=== PATIENT | male | born 1945 | race Caucasian/White ===

== ENCOUNTER 2017-03-21 18:28 | Inpatient (IN) | payer OTHER, MEDICARE ==
[~2017-03-21] VITALS: Ht 188 cm; Wt 104.0 kg
[~2017-03-21 18:28] MED LIST: ALL300 PO; ASPI325T4 PO; CYAN10005 PO; FERR1TAB23 PO; HYDR-4380 PO; HYDR5SYP11 PO; INSDGI SC; ISOS40TA PO; MONT1TAB3 PO; NTRGSL/4 UT; NVLGI SC; PRIM250T30 PO; ROSU40TA PO; WARF2TAB8 PO; ZNTT/150 PO; ZTHM250 PO
[2017-03-21] MEDS ORDERED: LORAZEPAM 2 MG/ML 1 ML VIAL IV STA (18:38)
[2017-03-21] MEDS ORDERED: ONDANSETRON INJ 2 MG/ML 2 ML VIAL IV STA (18:38)
[2017-03-21 18:46] LABS: BASO % 0.2 %; BASO ABS # 0.02 K/uL (0-0.2); COMPLETE YES; EOS % 0.8 %; HEMATOCRIT 43.5 % (42-52); IG% 0.1 %; LYMPH % 10.7 %; LYMPH ABS # 0.95 K/uL (1.2-3.4); MEAN CELL VOLUME 88.1 fL (80-100); MEAN CORPUSCULAR HEMOGLOBIN 27.3 pg (25-34); MONO % 7.5 %; NEUT % 80.7 %; PLATELET COUNT 226 K/uL (130-400); RED BLOOD COUNT 4.94 M/uL (4.7-6.1); WHITE BLOOD COUNT 8.92 K/uL (4.8-10.8)
--- NOTE | 2017-03-21 18:47 | EMERGENCY ROOM VISIT NOTE ---
History Report prepared by Maria Fernanda: Pascual Case Under the Supervision of: Dr. Chester Marcelo M.D. First contact with patient: 18:33 Stated Complaint: VOMIT/ POSS. CARDIAC ISSUE History of Present Illness The patient is a 71 year old male who presents to the Emergency Room with complaints of constant diaphoresis beginning 3.5 hours ago. The patient states that he started shaking and could not get warm. He notes that he also started vomiting. He reports that he has had symptoms like this before when he was in heart failure. The patient notes that he has a history of COPD and CHF. He states that he has been taking his medication, and he has a non-productive cough. The patient denies chest pain, new edema to his legs, fevers, and abdominal pain. Nursing staff notes the patient was given 4 Zofran prior to arrival in the ambulance. Source of History: patient Onset: 3.5 hours ago Position: other (global) Quality: other (diaphoresis) Timing: constant Associated Symptoms: + cough, + vomiting, No fevers, No chest pain, No abdominal pain Note: Denies: new edema to his legs Review of Systems See HPI for pertinent positives & negatives. A total of 10 systems reviewed and were otherwise negative. Past Medical & Surgical Medical Problems: (1) VIOLETTA inhibitor intolerance (2) Asthma (3) Benign hypertension (4) Cerebrovascular disease (5) CHF (congestive heart failure) (6) Chronic ischemic heart disease (7) Chronic kidney disease stage 3 (8) Chronic obstructive lung disease (9) Coronary artery disease (10) Deep venous thrombosis of lower extremity (11) Diabetes mellitus type 2 (12) Diabetic peripheral neuropathy associated with type 2 diabetes mellitus (13) Foot deformity (14) History of - deep vein thrombosis (15) History of - pulmonary embolus (16) History of diabetic ulcer of foot (17) Hyperlipidemia (18) Loss of sensation (19) Pericardial effusion (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 (21) Systolic heart failure Surgical Problems: (1) H/O toe surgery (2) History of tonsillectomy (3) S/P laparoscopic cholecystectomy Family History Diabetes mellitus Heart disease Social History Smoking Status: Former Smoker Alcohol Use: occasionally Drug Use: none Marital Status: Housing Status: lives with significant other Occupation Status: retired Current/Historical Medications Scheduled Allopurinol (Allopurinol), 300 MG PO DAILY Aspirin (Aspirin), 325 MG PO DAILY Insulin Aspart (Novolog), 0 SC TIDM Insulin Glargine (Lantus), 15 UNITS SC BID Isosorbide Dinitrate (Isordil), 40 MG PO TID Montelukast Sodium (Singulair), 10 MG PO QPM Primidone (Mysoline), 250 MG PO HS Ranitidine (Zantac), 150 MG PO BID Rosuvastatin Calcium (Crestor), 40 MG PO HS Warfarin Sod (Jantoven), 4 MG PO DIRECTED Warfarin Sod (Jantoven), 6 MG PO DIRECTED Scheduled PRN Hydrocodone-Acetaminophen (Hydrocodone/Acetaminophen), 5-325 MG PO Q6H PRN for Pain Nitroglycerin (Nitrostat), 0.4 MG UT UD PRN for Chest Pain Allergies Coded Allergies: Onion (Verified Allergy, Intermediate, RASH, 05/07/16) Levofloxacin (Verified Allergy, Mild, other, 05/07/16) ' Albuterol (Verified Adverse Reaction, Mild, 0, 05/07/16) cough syncope Ipratropium (Verified Adverse Reaction, Mild, 0, 05/07/16) cough syncope Physical Exam Vital Signs Date Time Temp Pulse Resp B/P (MAP) Pulse Ox O2 Delivery O2 Flow Rate FiO2 03/21/17 23:10 63 20 105/53 92 03/21/17 22:45 63 03/21/17 22:39 62 20 105/53 92 Room Air 03/21/17 20:17 78 20 139/70 95 Room Air 03/21/17 19:06 71 03/21/17 18:47 36.6 71 24 152/88 90 Room Air Physical Exam GENERAL: Patient is acutely ill appearing, in severe distress, and actively vomiting. HEENT: No acute trauma, normocephalic atraumatic, mucous membranes moist, no nasal congestion, no scleral icterus. NECK: No stridor, no adenopathy, no meningismus, trachea is midline. LUNGS: Significantly dyspneic with crackles and wet lung sounds - worse on the right. Wet cough. HEART: Regular rate and rhythm. No murmurs, rubs, gallops appreciated. ABDOMEN: Soft, nontender, bowel sounds positive, no masses appreciated, no peritonitis. BACK: No midline tenderness, no CVA tenderness EXTREMITIES: Normal motion all extremities, no cyanosis, edema bilaterally to the legs, worse on right than left. NEUROLOGIC: Alert and oriented, no acute motor or sensory deficits, no focal weakness, cranial nerves grossly intact. SKIN: Diaphoretic, pale, no rash. Medical Decision & Procedures ER Provider Diagnostic Interpretation: X ray results are stated below per my interpretation and the radiologist's interpretation. CHEST ONE VIEW PORTABLE CLINICAL HISTORY: Chest Pain dyspnea COMPARISON STUDY: 05/10/2016 FINDINGS: Chronic bibasilar interstitial change. Mild stable cardiomegaly. Pulmonary vasculature is somewhat prominent. Upper lungs are clear. IMPRESSION: Chronic bibasilar interstitial change. Mild pulmonary vascular congestion. The above report was generated using voice recognition software. It may contain grammatical, syntax or spelling errors. Electronically signed by: Wilder Shelton M.D. 03/21/2017 7:23 PM Dictated Date/Time: 03/21/2017 7:22 PM Laboratory Results 03/21/17 18:13 Red Blood Count 4.94, Mean Corpuscular Volume 88.1, Mean Corpuscular Hemoglobin 27.3, Mean Corpuscular Hemoglobin Concent 31.0, Mean Platelet Volume 10.0, Neutrophils (%) (Auto) 80.7, Lymphocytes (%) (Auto) 10.7, Monocytes (%) (Auto) 7.5, Eosinophils (%) (Auto) 0.8, Basophils (%) (Auto) 0.2, Neutrophils # (Auto) 7.20, Lymphocytes # (Auto) 0.95, Monocytes # (Auto) 0.67, Eosinophils # (Auto) 0.07, Basophils # (Auto) 0.02 03/21/17 18:13 Test 03/21/17 18:13 03/21/17 18:39 03/21/17 19:07 03/21/17 19:11 White Blood Count 8.92 K/uL (4.8-10.8) Red Blood Count 4.94 M/uL (4.7-6.1) Hemoglobin 13.5 g/dL (14.0-18.0) Hematocrit 43.5 % (42-52) Mean Corpuscular Volume 88.1 fL (80-100) Mean Corpuscular Hemoglobin 27.3 pg (25-34) Mean Corpuscular Hemoglobin Concent 31.0 g/dl (32-36) Platelet Count 226 K/uL (130-400) Mean Platelet Volume 10.0 fL (7.4-10.4) Neutrophils (%) (Auto) 80.7 % Lymphocytes (%) (Auto) 10.7 % Monocytes (%) (Auto) 7.5 % Eosinophils (%) (Auto) 0.8 % Basophils (%) (Auto) 0.2 % Neutrophils # (Auto) 7.20 K/uL (1.4-6.5) Lymphocytes # (Auto) 0.95 K/uL (1.2-3.4) Monocytes # (Auto) 0.67 K/uL (0.11-0.59) Eosinophils # (Auto) 0.07 K/uL (0-0.5) Basophils # (Auto) 0.02 K/uL (0-0.2) RDW Standard Deviation 47.7 fL (36.4-46.3) RDW Coefficient of Variation 14.8 % (11.5-14.5) Immature Granulocyte % (Auto) 0.1 % Immature Granulocyte # (Auto) 0.01 K/uL (0.00-0.02) Prothrombin Time 24.8 SECONDS (9.0-12.0) Prothromb Time International Ratio 2.2 (0.9-1.1) Activated Partial Thromboplast Time 38.7 SECONDS (21.0-31.0) Partial Thromboplastin Ratio 1.5 Estimated GFR () 64.5 Estimated GFR (Non- 55.7 BUN/Creatinine Ratio 11.6 (10-20) Calcium Level 9.4 mg/dl (8.5-10.1) Total Bilirubin 0.4 mg/dl (0.2-1) Direct Bilirubin 0.1 mg/dl (0-0.2) Aspartate Amino Transf (AST/SGOT) 30 U/L (15-37) Alanine Aminotransferase (ALT/SGPT) 19 U/L (12-78) Alkaline Phosphatase 109 U/L (45-117) Total Creatine Kinase 51 U/L (39-308) Creatine Kinase MB 0.5 ng/ml (0.5-3.6) Creatine Kinase MB Ratio 1.0 (0-3.0) Troponin I < 0.015 ng/ml (0-0.045) Pro-B-Type Natriuretic Peptide 896 pg/ml (0-900) Total Protein 8.5 gm/dl (6.4-8.2) Albumin 3.3 gm/dl (3.4-5.0) Lipase 67 U/L (73-393) Bedside Lactic Acid Venous 1.86 mmol/L (0.90-1.70) Bedside Troponin I < 0.030 ng/ml (0-0.045) Bedside Hemoglobin 12.9 g/dl (14.0-18.0) Bedside Hematocrit 38 % (42-52) Bedside Sodium 136 mEq/L (135-144) Bedside Potassium 3.5 mEq/L (3.3-5.0) Bedside Chloride 96 mEq/L (101-112) Bedside Total CO2 26 mEq/l (24-31) Anion Gap 19.0 mmol/L (16-25) Bedside Blood Urea Nitrogen 16 mg/dl (7-18) Bedside Creatinine 1.1 mg/dl (0.6-1.3) Bedside Glucose (other) 151 mg/dl (70-99) Bedside Ionized Calcium (Nazario) 1.16 mmol/l (1.12-1.32) Laboratory results as reviewed by me. Medications Administered Medications (Trade) Dose Ordered Sig/Kendrick Route Start Time Stop Time Status Last Admin Dose Admin Lorazepam (Ativan Inj) 0.5 mg NOW STAT IV 03/21/17 18:38 03/21/17 18:39 DC 03/21/17 18:55 0.5 MG Ondansetron HCl (Zofran Inj) 4 mg NOW STAT IV 03/21/17 18:38 03/21/17 18:39 DC 03/21/17 18:55 4 MG Piperacillin Sod/ Tazobactam Sod (Zosyn Iv) 4.5 gm NOW STAT IV 03/21/17 20:11 03/21/17 20:13 DC 03/21/17 20:17 4.5 GM ECG Indication: diaphoresis, vomiting Rate (beats per minute): 74 Rhythm: normal sinus Findings: no acute ischemic change, no ectopy ED Course 1833: The patient was evaluated in room B03B. A complete history and physical exam was performed. 1837: Ordered Zofran Inj 4mg IV, Ativan Inj 0.5mg IV 5: I reevaluated the patient. He feels better and is no longer diaphoretic and vomiting. He is refusing a breathing treatment. 2007: I reevaluated the patient, and he still has diffuse, poor, lung sounds. He is mildly hypoxic and feels better. 2010: Ordered Zosyn Iv 4.5gm IV 2141: [facility] The patient will be evaluated for further treatment. Medical Decision Differential: Infectious, Reactive Airway Disease, Pneumonia, Pneumothorax, COPD , CHF, ACS, Pulmonary Embolism, MSK, GI, Dissection, amongst other etiologies entertained. 71 yr old male arrives severely ill appearing vomiting profusely, diaphoretic and clearly uncomfortable. No clear evidence ACS. Given Zofran, Ativan with vast improvement in vomiting. Abdominal exam benign. Exam with clear RLL congestion and becoming a bit hypoxic. Suspect this is aspiration event though he did have severe pneumonia with respiratory failure last year with RLL infiltrate and exam similar to that at that point. Patient labs/vitals note very poor, but he looks very unwell and I do not think he is capable of surviving discharge. Medication Reconcilliation Current Medication List: was personally reviewed by me Blood Pressure Screening Patient's blood pressure: Normal blood pressure Blood pressure disposition: Did not require urgent referral Consults Time Called: 2136 [facility] Returned Call: [phone] [facility] The patient will be evaluated for further treatment. Impression Primary Impression: Aspiration pneumonia Additional Impression: Hypoxia Scribe Attestation The scribe's documentation has been prepared under my direction and personally reviewed by me in its entirety. I confirm that the note above accurately reflects all work, treatment, procedures, and medical decision making performed by me. Departure Information Dispostion Being Evaluated By Hospitalist Referrals Ron Mortensen D.O. (PCP) Problem Qualifiers
[2017-03-21 19:00] LABS: ALT/SGPT 19 U/L (12-78); BLOOD UREA NITROGEN 15 mg/dl (7-18); BUN/CREATININE RATIO 11.6 (10-20); CALCIUM 9.4 mg/dl (8.5-10.1); CARBON DIOXIDE 27 mmol/L (21-32); CHLORIDE 98 mmol/L (98-107); GLUCOSE 121 mg/dl (70-99); POTASSIUM 3.6 mmol/L (3.5-5.1); SODIUM 134 mmol/L (136-145)
[2017-03-21 19:06] LABS: ALKALINE PHOSPHATASE 109 U/L (45-117); AST/SGOT 30 U/L (15-37)
--- NOTE | 2017-03-21 19:24 | DIAGNOSTIC IMAGING REPORT ---
CHEST ONE VIEW PORTABLE CLINICAL HISTORY: Chest Pain dyspnea COMPARISON STUDY: 05/10/2016 FINDINGS: Chronic bibasilar interstitial change. Mild stable cardiomegaly. Pulmonary vasculature is somewhat prominent. Upper lungs are clear. IMPRESSION: Chronic bibasilar interstitial change. Mild pulmonary vascular congestion. The above report was generated using voice recognition software. It may contain grammatical, syntax or spelling errors. Electronically signed by: Wilder Shelton M.D. 03/21/2017 7:23 PM Dictated Date/Time: 03/21/2017 7:22 PM
[2017-03-21] MEDS ORDERED: WARF2TAB8 PO (19:25)
[2017-03-21 19:28] LABS: ISTAT CREATININE 1.1 mg/dl (0.6-1.3); ISTAT HEMOGLOBIN 12.9 g/dl (14.0-18.0); ISTAT IONIZED CALCIUM 1.16 mmol/l (1.12-1.32)
[2017-03-21] MEDS ORDERED: PIPERACILLIN/TAZOBACTAM 4.5 GM/100ML D5W IV STA (20:11)
[2017-03-21 20:36] LABS: INR 2.2 (0.9-1.1); PARTIAL THROMBOPLASTIN RATIO 1.5; PROTHROMBIN TIME (PATIENT) 24.8 SECONDS (9.0-12.0)
[2017-03-21] MEDS ORDERED: METHYLPREDNISOLONE IV 60 MG in SYRINGE 0 ML IV STA (22:43)
[2017-03-21] MEDS ORDERED: GLUCAGON FOR INJ 1 MG VIAL SQ PRN (22:45)
[2017-03-21] MEDS ORDERED: HYDROCODONE/ACETAMINOPHEN 7.5/325MG TAB PO PRN (22:45)
[2017-03-21] MEDS ORDERED: DEXTROSE 50% 50 ML SYR IV PRN (22:45)
[2017-03-21] MEDS ORDERED: SODIUM CHLORIDE 0.9% 500ML 500 ML IV SCH (22:45)
[2017-03-21] MEDS ORDERED: GLUCOSE 40% GEL 15 GM TUBE PO PRN (22:45)
[2017-03-21] MEDS ORDERED: GLUCOSE 10 TABS/TUBE PO PRN (22:45)
[2017-03-21] MEDS ORDERED: ACETAMINOPHEN 325 MG TAB PO PRN (22:45)
[2017-03-21] MEDS ORDERED: PIPERACILL/TAZOBAC CONSULT ACTIVE PRN (22:49)
[2017-03-21] MEDS ORDERED: PHARMACY GLYCEMIC MGMT CONSULT PRN (22:55)
--- NOTE | 2017-03-21 23:24 | History and Physical ---
History & Physical Date & Time of Service: Mar 21, 2017 at 23:23 Chief Complaint: Vomit/ Poss. Cardiac Issue Primary Care Physician: Ron Mortensen D.O. History of Present Illness Source: patient, clinic records, hospital records 71 year old male with history of COPD/Asthma/Bronchiectasis, CAD, CHF, PE on coumadin, DM 2, HTN, CKD 3 presenting with vomiting. Follows with Dr. Mortensen for PCP and Pulmonary Clinic in [facility]. Patient was apparently doing fine until late this afternoon when he suddenly experienced "shivering". At around dinner time, patient then developed nausea followed by vomiting at least 2-3 times, previously ingested food. He was then brought to the ER. At the ER, patient was noted to have persistent coughing . CXR did not show pneumonia. Patient did received Zosyn, Zofran and Ativan. On exam, patient was 93% on room air, sitting up in bed, appears tired but not in distress. States he has been having profuse dry cough at the ER since arrival but denies dyspnea. Chills and nausea/vomiting has improved. Denies headache, dizziness, sore throat, chest pain, abdominal pain, changes with urination/bowel movement. No other symptoms. Past Medical/Surgical History Medical Problems: (1) VIOLETTA inhibitor intolerance Status: Chronic (2) Asthma Status: Chronic (3) Benign hypertension Status: Chronic (4) Cerebrovascular disease Permanent Comment: history of right caudate stroke Status: Chronic (5) CHF (congestive heart failure) Status: Chronic (6) Chronic ischemic heart disease Status: Chronic (7) Chronic kidney disease stage 3 Status: Chronic (8) Chronic obstructive lung disease Status: Chronic (9) Coronary artery disease Permanent Comment: s/p inferior AR Status: Chronic (10) Deep venous thrombosis of lower extremity Status: Resolved (11) Diabetes mellitus type 2 Status: Chronic (12) History of - deep vein thrombosis Status: Resolved (13) History of - pulmonary embolus Status: Resolved (14) Hyperlipidemia Status: Chronic (15) Pericardial effusion Status: Resolved (16) Systolic heart failure Permanent Comment: LVEF 45-50% by echo 07/07/10 Status: Chronic Surgical Problems: (1) H/O toe surgery Permanent Comment: amputation left 3rd and 4th toe 03/2012 Status: Resolved (2) History of tonsillectomy Status: Resolved (3) S/P laparoscopic cholecystectomy Permanent Comment: Dr. Tang 12/2014 Status: Resolved Family History Diabetes mellitus Heart disease Social History Smoking Status: Former Smoker Drug Use: none Marital Status: Occupational Status: retired Immunizations History of Influenza Vaccine: Yes Influenza Vaccine Date: May 08, 2012 History of Tetanus Vaccine?: unknown Tetanus Immunization Date: December 01, 2008 History of Pneumococcal: Yes Pneumococcal Date: Oct 03, 2003 History of Hepatitis B Vaccine: Unknown Multi-Drug Resistant Organisms History of MDRO: Yes Type of MDRO: MRSA Allergies Coded Allergies: Onion (Verified Allergy, Intermediate, RASH, 05/07/16) Levofloxacin (Verified Allergy, Mild, other, 05/07/16) ' Albuterol (Verified Adverse Reaction, Mild, 0, 05/07/16) cough syncope Ipratropium (Verified Adverse Reaction, Mild, 0, 05/07/16) cough syncope Home Medications Scheduled Allopurinol (Allopurinol), 300 MG PO DAILY Aspirin (Aspirin), 325 MG PO DAILY Insulin Aspart (Novolog), 0 SC TIDM Insulin Glargine (Lantus), 15 UNITS SC BID Isosorbide Dinitrate (Isordil), 40 MG PO TID Montelukast Sodium (Singulair), 10 MG PO QPM Primidone (Mysoline), 250 MG PO HS Ranitidine (Zantac), 150 MG PO BID Rosuvastatin Calcium (Crestor), 40 MG PO HS Warfarin Sod (Jantoven), 4 MG PO DIRECTED Warfarin Sod (Jantoven), 6 MG PO DIRECTED Scheduled PRN Hydrocodone-Acetaminophen (Hydrocodone/Acetaminophen), 5-325 MG PO Q6H PRN for Pain Nitroglycerin (Nitrostat), 0.4 MG UT UD PRN for Chest Pain Review of Systems Constitutional- no fever; no weight loss Eyes- no acute visual changes ENT- no sinus drainage; no pharyngitis Pulmonary- (+) as noted above Cardiac- no chest pain, no palpitations, no orthopnea, no dependent edema GI- (+) as noted above - no dysuria, no hematuria Musculoskeletal- no arthralgias, no myalgias Derm- no rashes, no new skin lesions, no changing skin lesions Hematologic- no unusual bruising, no unusual bleeding Lymphatics- no adenopathy Endocrine- no polyuria or polydipsia; no heat or cold intolerance Neuro- no headaches, no focal neurologic symptoms Psych- no anxiety, no depression Physical Exam Vital Signs Date Time Temp Pulse Resp B/P (MAP) Pulse Ox O2 Delivery O2 Flow Rate FiO2 03/21/17 23:10 63 20 105/53 92 03/21/17 22:45 63 03/21/17 22:39 62 20 105/53 92 Room Air 03/21/17 20:17 78 20 139/70 95 Room Air 03/21/17 19:06 71 03/21/17 18:47 36.6 71 24 152/88 90 Room Air General Appearance: WD/WN, no apparent distress Head: normocephalic, atraumatic Eyes: normal inspection, EOMI, sclerae normal ENT: normal ENT inspection, hearing grossly normal, pharynx normal Neck: supple, no adenopathy, thyroid normal, no JVD, trachea midline Respiratory/Chest: chest non-tender, no respiratory distress, no accessory muscle use, + pertinent finding (scattered mild wheezing at the bases right> left) Cardiovascular: regular rate, rhythm, no edema, no JVD, no murmur Abdomen/GI: normal bowel sounds, non tender, soft, no organomegaly Back: normal inspection, no CVA tenderness Extremities/Musculoskelatal: normal inspection, no calf tenderness, no pedal edema Neurologic/Psych: lease examiner II-XII nml as tested, no motor/sensory deficits, alert, normal mood/affect, oriented x 3 Skin: normal color, warm/dry, no rash Lymphatic: no adenopathy Diagnostics Laboratory Results Results Past 24 Hours Test 03/21/17 18:13 03/21/17 18:39 03/21/17 19:07 03/21/17 19:11 Range/Units White Blood Count 8.92 4.8-10.8 K/uL Red Blood Count 4.94 4.7-6.1 M/uL Hemoglobin 13.5 14.0-18.0 g/dL Hematocrit 43.5 42-52 % Mean Corpuscular Volume 88.1 80-100 fL Mean Corpuscular Hemoglobin 27.3 25-34 pg Mean Corpuscular Hemoglobin Concent 31.0 32-36 g/dl Platelet Count 226 130-400 K/uL Mean Platelet Volume 10.0 7.4-10.4 fL Neutrophils (%) (Auto) 80.7 % Lymphocytes (%) (Auto) 10.7 % Monocytes (%) (Auto) 7.5 % Eosinophils (%) (Auto) 0.8 % Basophils (%) (Auto) 0.2 % Neutrophils # (Auto) 7.20 1.4-6.5 K/uL Lymphocytes # (Auto) 0.95 1.2-3.4 K/uL Monocytes # (Auto) 0.67 0.11-0.59 K/uL Eosinophils # (Auto) 0.07 0-0.5 K/uL Basophils # (Auto) 0.02 0-0.2 K/uL RDW Standard Deviation 47.7 36.4-46.3 fL RDW Coefficient of Variation 14.8 11.5-14.5 % Immature Granulocyte % (Auto) 0.1 % Immature Granulocyte # (Auto) 0.01 0.00-0.02 K/uL Prothrombin Time 24.8 9.0-12.0 SECONDS Prothromb Time International Ratio 2.2 0.9-1.1 Activated Partial Thromboplast Time 38.7 21.0-31.0 SECONDS Partial Thromboplastin Ratio 1.5 Sodium Level 134 136-145 mmol/L Potassium Level 3.6 3.5-5.1 mmol/L Chloride Level 98 98-107 mmol/L Carbon Dioxide Level 27 21-32 mmol/L Anion Gap 9.0 19.0 16-25 mmol/L Blood Urea Nitrogen 15 7-18 mg/dl Creatinine 1.30 0.60-1.40 mg/dl Estimated GFR () 64.5 Estimated GFR (Non- 55.7 BUN/Creatinine Ratio 11.6 10-20 Random Glucose 121 70-99 mg/dl Calcium Level 9.4 8.5-10.1 mg/dl Total Bilirubin 0.4 0.2-1 mg/dl Direct Bilirubin 0.1 0-0.2 mg/dl Aspartate Amino Transf (AST/SGOT) 30 15-37 U/L Alanine Aminotransferase (ALT/SGPT) 19 12-78 U/L Alkaline Phosphatase 109 45-117 U/L Total Creatine Kinase 51 39-308 U/L Creatine Kinase MB 0.5 0.5-3.6 ng/ml Creatine Kinase MB Ratio 1.0 0-3.0 Troponin I < 0.015 0-0.045 ng/ml Pro-B-Type Natriuretic Peptide 896 0-900 pg/ml Total Protein 8.5 6.4-8.2 gm/dl Albumin 3.3 3.4-5.0 gm/dl Lipase 67 73-393 U/L Bedside Lactic Acid Venous 1.86 0.90-1.70 mmol/L Bedside Troponin I < 0.030 0-0.045 ng/ml Bedside Hemoglobin 12.9 14.0-18.0 g/dl Bedside Hematocrit 38 42-52 % Bedside Sodium 136 135-144 mEq/L Bedside Potassium 3.5 3.3-5.0 mEq/L Bedside Chloride 96 101-112 mEq/L Bedside Total CO2 26 24-31 mEq/l Bedside Blood Urea Nitrogen 16 7-18 mg/dl Bedside Creatinine 1.1 0.6-1.3 mg/dl Bedside Glucose (other) 151 70-99 mg/dl Bedside Ionized Calcium (Nazario) 1.16 1.12-1.32 mmol/l Microbiology Results 03/21/17 Blood Culture, Received Pending 03/21/17 Blood Culture, Received Pending Diagnostic Radiology [~ rep ct add3]] CHEST ONE VIEW PORTABLE CLINICAL HISTORY: Chest Pain dyspnea COMPARISON STUDY: 05/10/2016 FINDINGS: Chronic bibasilar interstitial change. Mild stable cardiomegaly. Pulmonary vasculature is somewhat prominent. Upper lungs are clear. IMPRESSION: Chronic bibasilar interstitial change. Mild pulmonary vascular congestion. EKG HR 78, sinus rhythm, no signs of acute ischemia/infarct Impression Assessment and Plan 71 year old male with history of COPD/Asthma/Bronchiectasis, CAD, CHF, PE on coumadin, DM 2, HTN, CKD 3 presenting with vomiting. POSSIBLE ASPIRATION PNEUMONITIS SECONDARY TO EMESIS POSSIBLE MILD EXACERBATION OF COPD/ASTHMA/BRONCHIECTASIS - sputum culture - empiric Zosyn IV patient reports syncope with bronchodilators- will not be ordered Solumedrol IV 60mg one dose given - clear liquid diet for now Speech Therapy eval to r/o Aspiration ordered EPISODE OF CHILLS - followed by nausea/vomiting - afebrile, no leukocytosis - no clear focus of infection other than possible aspiration pneumonitis ff up cultures - on empiric Zosyn ELEVATED LACTIC ACID - repeat at 1am IV NSS at 60cc/hr 500cc total ordered - has history of CHF on Lasix hold Lasix for now HISTORY OF CAD - denies chest pain cardiac markers negative - continue usual Aspirin, Imdur, Crestor PE ON COUMADIN - INR therapeutic - usual coumadin dose ordered DM 2 - usually on lantus 15 units BID and ISS - Pharmacy Glycemic control consult placed as patient given Solumedrol IV, will be on clear liquid diet CKD 3 - crea at baseline DVT PROPHYLAXIS - on coumadin with therapeutic INR FULL CODE PER PATIENT DISPOSITION anticipate d/c home when medically stable lives with follows with Dr. Mortensen for PCP [facility] VTE Prophylaxis VTE Risk Assessment Done? Y/N: Yes Risk Level: Moderate Given or contraindicated: Warfarin (Coumadin)
[2017-03-21] MEDS ORDERED: INSULIN GLARGINE SOLOSTAR 100 UNITS/ML 3 ML PEN SC STA (23:46)
[2017-03-22] VITALS (9 sets, daily range): BP systolic 94–136; BP diastolic 57–82; PULSE 62–79; TEMP 36.2–36.9; O2SAT 92–98; Ht 188 cm; Wt 104.0 kg
[2017-03-22] MEDS: PIPERACILL/TAZOBAC IV 3.375 GM in DEXTROSE 5% 100ML IV SCH ×4 (00:18→23:38)
[2017-03-22 00:46] LABS: URINE APPEARANCE CLEAR (CLEAR); URINE BILIRUBIN NEG (NEG); URINE COLOR YELLOW; URINE EPITHELIAL CELL AUTO >30 /lpf (0-5); URINE NITRITE NEG (NEG); URINE PH 7.5 (4.5-7.5); URINE SPECIFIC GRAVITY 1.022 (1.000-1.030); UROBILINOGEN NEG (NEG); ZZUR CULT IF INDIC CLEAN CATCH NO
[2017-03-22 00:53] LABS: MANUAL MICROSCOPIC REQUIRED? NO; REVIEW REQ? YES
[2017-03-22 00:54] LABS: SULFASALICYLIC ACID POS (NEG)
[2017-03-22 01:11] LABS: URINE PATH CASTS 1-5 GRANULAR CASTS /lpf (0)
[2017-03-22 05:44] LABS: BASO % 0.1 %; BASO ABS # 0.01 K/uL (0-0.2); COMPLETE YES; HEMATOCRIT 39.5 % (42-52); IG% 0.2 %; LYMPH % 7.3 %; LYMPH ABS # 0.66 K/uL (1.2-3.4); MEAN CELL VOLUME 88.8 fL (80-100); MEAN CORPUSCULAR HEMOGLOBIN 28.8 pg (25-34); MEAN CORPUSCULAR HGB CONC 32.4 g/dl (32-36); MEAN PLATELET VOLUME 9.5 fL (7.4-10.4); MONO % 0.7 %; NEUT % 91.7 %; PLATELET COUNT 156 K/uL (130-400); RED BLOOD COUNT 4.45 M/uL (4.7-6.1); WHITE BLOOD COUNT 9.07 K/uL (4.8-10.8)
[2017-03-22 05:59] LABS: PROTHROMBIN TIME (PATIENT) 22.3 SECONDS (9.0-12.0)
[2017-03-22 06:17] LABS: BUN/CREATININE RATIO 14.8 (10-20); CREATININE 1.2 mg/dl (0.60-1.40); POTASSIUM 4.8 mmol/L (3.5-5.1)
[2017-03-22] MEDS: ISOSORBIDE DINITRATE 40 MG TAB PO SCH ×3 (06:19→16:46)
[2017-03-22 06:27] LABS: ESTIMATED AVERAGE GLUCOSE 209 mg/dl; HA1C FLAG Normal (Normal)
[2017-03-22] MEDS: ALLOPURINOL 100 MG TAB PO SCH (07:56)
[2017-03-22] MEDS: RANITIDINE HCL 150 MG TAB PO SCH ×2 (07:56→19:53)
[2017-03-22] MEDS: ASPIRIN 325 MG ECTAB PO SCH (07:56)
[2017-03-22] MEDS: INSULIN ASPART 100 UNITS/ML 3 ML PEN SC SCH ×4 (07:58→22:00)
[2017-03-22] MEDS ORDERED: INSULIN GLARGINE SOLOSTAR 100 UNITS/ML 3 ML PEN SC SCH ×2 (09:00→21:00)
[2017-03-22] MEDS ORDERED: INSULIN GLARGINE SOLOSTAR 100 UNITS/ML 3 ML PEN SC ONE (09:00)
--- NOTE | 2017-03-22 10:27 | Pharmacy Progress Note ---
Glycemic Control Intl Consult Date of Service Mar 22, 2017. Scope Glycemic Pharmacist consulted by Dr Cortez on 03/21/17 for glycemic control and to write orders per [facility] inpatient glycemic control protocol Objective Weight (Kilograms): 104.000 Accuchecks BSG (last 24hrs): Test 03/21/17 18:13 03/22/17 00:16 03/22/17 05:28 03/22/17 06:23 Random Glucose 121 mg/dl (70-99) 261 mg/dl (70-99) Bedside Glucose 119 mg/dl (70-99) 232 mg/dl (70-99) Laboratory Data (last 24hrs) Test 03/21/17 18:13 03/21/17 19:11 03/22/17 05:28 Anion Gap 9.0 mmol/L 19.0 mmol/L 6.0 mmol/L BUN/Creatinine Ratio 11.6 14.8 Blood Urea Nitrogen 15 mg/dl 18 mg/dl Creatinine 1.30 mg/dl 1.20 mg/dl Potassium Level 3.6 mmol/L 4.8 mmol/L Sodium Level 134 mmol/L 132 mmol/L White Blood Count 8.92 K/uL 9.07 K/uL Red Blood Count 4.94 M/uL 4.45 M/uL Hemoglobin 13.5 g/dL 12.8 g/dL Hematocrit 43.5 % 39.5 % Mean Corpuscular Volume 88.1 fL 88.8 fL Mean Corpuscular Hemoglobin 27.3 pg 28.8 pg Mean Corpuscular Hemoglobin Concent 31.0 g/dl 32.4 g/dl Platelet Count 226 K/uL 156 K/uL Mean Platelet Volume 10.0 fL 9.5 fL Neutrophils (%) (Auto) 80.7 % 91.7 % Lymphocytes (%) (Auto) 10.7 % 7.3 % Monocytes (%) (Auto) 7.5 % 0.7 % Eosinophils (%) (Auto) 0.8 % 0.0 % Basophils (%) (Auto) 0.2 % 0.1 % Neutrophils # (Auto) 7.20 K/uL 8.32 K/uL Lymphocytes # (Auto) 0.95 K/uL 0.66 K/uL Monocytes # (Auto) 0.67 K/uL 0.06 K/uL Eosinophils # (Auto) 0.07 K/uL 0.00 K/uL Basophils # (Auto) 0.02 K/uL 0.01 K/uL Hemoglobin A1c 8.9 % HbA1c Test 03/22/17 05:28 Hemoglobin A1c 8.9 % (4.5-5.6) H Recent Pertinent Medications Outpatient Anti-diabetic Regimen: * Lantus 15 units twice daily + Novolog CF of 40 The patient is currently receiving: * Basal insulin: Lantus 8 units every 12 hours * Correctional Insulin: Novolog Correction per scale ACHS Goal Range: Low 100 mg/dL - High 140 mg/dL Correction Factor: 20 mg/dL/unit * Prandial insulin: Per carb ratio of 1 unit per 7 grams CHO consumed Risk Factors for Insulin Resistance: * Steroids: Solu-Medrol 60 mg IV x 1 on 03/21/17 * Infection: COPD exacerbation vs aspiration PNA on Zosyn * Diet: clear liquid, Type 2 diet Assessment & Plan ASSESSMENT: * ADA & AACE recommend a goal blood sugar range 140-180 mg/dl for the majority of critically ill & non-critically ill patients. However, more stringent targets may be selected in individual cases. Will utilize more stringent goal of 100-140 mg/dl based on patient age & comorbidities. Additionally, tighter glycemic control is warranted to facilitate infection healing. * Mr Canseco is a 71 y/o M with a PMH of COPD/asthma, CAD, CHF, PE, and CKD stage 3 admitted with COPD exacerbation vs possible aspiration pneumonia. His HbA1C indicates that patient is not well controlled on home regimen. He also received a dose of steroids yesterday (Solu-Medrol 60 mg IV x 1). * Yesterday, the patient took Lantus 15 units [employer] and 4 units of Novolog with lunch. He was started on a reduced dose while hospitalized (Lantus 8 units twice daily). This morning the patient's fasting blood sugar was 261 mg/dL. This is most likely secondary to steroids as well as basal deficiency from lowered dose. A higher dose of Lantus 25 units ordered this morning along with a sliding scale this evening as unsure how patient's insulin requirements will evolve. * For correctional insulin, patient started on weight-based stress of 2-3. This appears reasonable at this time secondary to steroids use. Will monitor mac. PLAN FOR INPATIENT GLYCEMIC CONTROL: * Basal insulin with LANTUS 25 units SQ x 1 then Lantus 15-25 units SQ BID ( Lantus 15 units if blood sugar less than 140 mg/dL and Lantus 20 units if blood sugar 140 mg/dL o -180 MG/DL and Lantus 25 units if blood sugar 180 mg/dL or greater) * Correctional Insulin with NOVOLOG / REGULAR per scale ACHS * Goal Range: Low 100 mg/dL - High 140 mg/dL * Correction Factor: 20 mg/dL/unit * Nutritional / Prandial insulin per carb ratio of 1 unit per 7 grams CHO consumed * Please note that the plan above was derived based on current level of insulin resistance and hospital stress. These recommendations are appropriate for inpatient admission only. Plan of care upon discharge will need to be reassessed to avoid potential outpatient hypo/hyperglycemia. Thank you.
[2017-03-22] MEDS: WARFARIN SOD 6 MG TAB PO SCH (15:50)
--- NOTE | 2017-03-22 18:48 | Progress Note ---
Internal Med Progress Note Date of Service: Mar 22, 2017. Provider Documentation: SUBJECTIVE: patient breathing on room air, denies further episodes of vomiting since coming up from the ED to medical wards, reported multiple episodes of vomiting in the ED, no chest pain or shortness of breath, no abdominal pain, denies diarrhea OBJECTIVE: Exam: General-NAD, speaking in full sentences, on room air Eyes- EOMI, no jaundice ENT-nontender, no oral or nasal exudates Neck- nontender, no JVD Lungs- right lung lewis with less air entry compared to opposite side Heart- regular rate Abdomen- soft, nontender to palpation Extremities- no edema of extremities Neuro- AO x 3 ASSESSMENT & PLAN: 71 year old male with history of COPD/Asthma/Bronchiectasis, CAD, CHF, PE on coumadin, DM 2, HTN, CKD 3 presenting with vomiting and possible aspiration pneumonitis vs pneumonia with initial treatment of empiric Zosyn IV abx SPUTUM CULTURE GRAM STAIN Final 03/22/17-1139 RESULT MODERATE POLYS FEW MONONUCLEATED CELLS RARE GRAM POSITIVE COCCI -continue with empiric Zosyn IV for pneumonia -patient reports syncope with bronchodilators- will not be ordered Initial symptoms associated with chills and vomiting, unclear etiology, patient did not take temperature at home and afebrile on admission HISTORY OF CAD and CHF - continue Aspirin, Imdur, Crestor -restart Lasix if hypervolemic history of coumadin use for thromboembolism - INR therapeutic -continue with home dose coumadin of 4 mg daily for Monday and Monday, 6 mg daily on other days DM 2 -following pharmacy recommendations CKD 3 - crea at baseline DVT PROPHYLAXIS - on coumadin with therapeutic INR Allergies to Levaquin FULL CODE PER PATIENT DISPOSITION anticipate d/c home when medically stable lives with follows with Dr. Mortensen for PCP Katharina Colmenares[facility] Vital Signs: Date Time Temp Pulse Resp B/P (MAP) Pulse Ox O2 Delivery O2 Flow Rate FiO2 03/22/17 15:30 Room Air 03/22/17 15:18 36.5 69 18 107/66 (80) 95 Room Air 03/22/17 11:43 Room Air 03/22/17 11:42 79 20 136/82 (100) 95 Room Air 03/22/17 08:00 Room Air 03/22/17 07:48 36.2 75 17 94/57 (69) 92 Room Air 03/22/17 07:47 36.2 75 03/22/17 04:00 94 Room Air 03/22/17 03:17 36.7 62 18 112/73 (86) 94 Room Air 03/22/17 00:25 36.9 64 18 118/72 94 Room Air 03/21/17 23:10 63 20 105/53 92 03/21/17 22:45 63 03/21/17 22:39 62 20 105/53 92 Room Air 03/21/17 20:17 78 20 139/70 95 Room Air 03/21/17 19:06 71 Lab Results: Results Past 24 Hours Test 03/21/17 19:07 03/21/17 19:11 03/22/17 00:00 03/22/17 00:16 Range/Units Bedside Lactic Acid Venous 1.86 0.90-1.70 mmol/L Bedside Troponin I < 0.030 0-0.045 ng/ml Bedside Hemoglobin 12.9 14.0-18.0 g/dl Bedside Hematocrit 38 42-52 % Bedside Sodium 136 135-144 mEq/L Bedside Potassium 3.5 3.3-5.0 mEq/L Bedside Chloride 96 101-112 mEq/L Bedside Total CO2 26 24-31 mEq/l Anion Gap 19.0 16-25 mmol/L Bedside Blood Urea Nitrogen 16 7-18 mg/dl Bedside Creatinine 1.1 0.6-1.3 mg/dl Bedside Glucose (other) 151 70-99 mg/dl Bedside Ionized Calcium ([place]az[place]) 1.16 1.12-1.32 mmol/l Urine Color YELLOW Urine Appearance CLEAR CLEAR Urine pH 7.5 4.5-7.5 Urine Specific [place] 1.022 1.000-1.030 Urine Protein 2+ NEG Urine Glucose (UA) TRACE NEG Urine Ketones NEG NEG Urine Occult Blood TRACE NEG Urine Nitrite NEG NEG Urine Bilirubin NEG NEG Urine Urobilinogen NEG NEG Urine Leukocyte Esterase NEG NEG Urine WBC (Auto) 1-5 0-5 /hpf Urine RBC (Auto) 0-4 0-4 /hpf Urine Hyaline Casts (Auto) 5-10 0-5 /lpf Urine Epithelial Cells (Auto) >30 0-5 /lpf Urine Bacteria (Auto) NEG NEG Urine Renal Epithelial Cells 0-5 /lpf Urine Pathogenic Casts 1-5 GRANULAR CASTS 0 /lpf Bedside Glucose 119 70-99 mg/dl Test 03/22/17 02:05 03/22/17 05:28 03/22/17 06:23 03/22/17 11:20 Range/Units Lactic Acid Level 1.0 0.4-2.0 mmol/L White Blood Count 9.07 4.8-10.8 K/uL Red Blood Count 4.45 4.7-6.1 M/uL Hemoglobin 12.8 14.0-18.0 g/dL Hematocrit 39.5 42-52 % Mean Corpuscular Volume 88.8 80-100 fL Mean Corpuscular Hemoglobin 28.8 25-34 pg Mean Corpuscular Hemoglobin Concent 32.4 32-36 g/dl Platelet Count 156 130-400 K/uL Mean Platelet Volume 9.5 7.4-10.4 fL Neutrophils (%) (Auto) 91.7 % Lymphocytes (%) (Auto) 7.3 % Monocytes (%) (Auto) 0.7 % Eosinophils (%) (Auto) 0.0 % Basophils (%) (Auto) 0.1 % Neutrophils # (Auto) 8.32 1.4-6.5 K/uL Lymphocytes # (Auto) 0.66 1.2-3.4 K/uL Monocytes # (Auto) 0.06 0.11-0.59 K/uL Eosinophils # (Auto) 0.00 0-0.5 K/uL Basophils # (Auto) 0.01 0-0.2 K/uL RDW Standard Deviation 48.1 36.4-46.3 fL RDW Coefficient of Variation 14.9 11.5-14.5 % Immature Granulocyte % (Auto) 0.2 % Immature Granulocyte # (Auto) 0.02 0.00-0.02 K/uL Prothrombin Time 22.3 9.0-12.0 SECONDS Prothromb Time International Ratio 2.0 0.9-1.1 Sodium Level 132 136-145 mmol/L Potassium Level 4.8 3.5-5.1 mmol/L Chloride Level 99 98-107 mmol/L Carbon Dioxide Level 27 21-32 mmol/L Anion Gap 6.0 3-11 mmol/L Blood Urea Nitrogen 18 7-18 mg/dl Creatinine 1.20 0.60-1.40 mg/dl Est Creatinine Clear Calc Drug Dose 74.7 ml/min Estimated GFR () 71.1 Estimated GFR (Non- 61.3 BUN/Creatinine Ratio 14.8 10-20 Random Glucose 261 70-99 mg/dl Estimated Average Glucose 209 mg/dl Hemoglobin A1c 8.9 4.5-5.6 % Calcium Level 9.0 8.5-10.1 mg/dl Bedside Glucose 232 270 70-99 mg/dl Test 03/22/17 16:24 Range/Units Bedside Glucose 202 70-99 mg/dl Microbiology Results 03/21/17 Blood Culture, Received Pending 03/22/17 Gram Stain - Final, Resulted 03/22/17 Sputum Culture, Resulted Pending 03/22/17 Urine Culture, Received Pending
[2017-03-22] MEDS: PRIMIDONE 250 MG TAB PO SCH (19:52)
[2017-03-22] MEDS: ROSUVASTATIN CALCIUM 20 MG TAB PO SCH (19:52)
[2017-03-22] MEDS: MONTELUKAST SOD 10 MG TAB PO SCH (19:53)
[2017-03-22 19:58] LABS: BUN/CREATININE RATIO 16.4 (10-20); CALCIUM 8.4 mg/dl (8.5-10.1); CREATININE 1.3 mg/dl (0.60-1.40); POTASSIUM 4.3 mmol/L (3.5-5.1)
[2017-03-22] MEDS ORDERED: SODIUM CHLORIDE 0.9% 500ML 500 ML IV SCH (23:45)
[2017-03-23] MEDS ORDERED: INSULIN ASPART 100 UNITS/ML 3 ML PEN SC SCH (02:00)
[2017-03-23 02:56] VITALS: BP 103/60; PULSE 60; TEMP 36.7; O2SAT 93
[2017-03-23 04:09] LABS: BASO % 0.2 %; BASO ABS # 0.02 K/uL (0-0.2); COMPLETE YES; EOS % 0.9 %; HEMATOCRIT 37.8 % (42-52); IG% 0.3 %; LYMPH % 10.9 %; LYMPH ABS # 1.24 K/uL (1.2-3.4); MEAN CELL VOLUME 88.7 fL (80-100); MEAN CORPUSCULAR HEMOGLOBIN 27.7 pg (25-34); MEAN CORPUSCULAR HGB CONC 31.2 g/dl (32-36); MEAN PLATELET VOLUME 9.8 fL (7.4-10.4); MONO % 8.3 %; NEUT % 79.4 %; PLATELET COUNT 202 K/uL (130-400); RED BLOOD COUNT 4.26 M/uL (4.7-6.1); WHITE BLOOD COUNT 11.39 K/uL (4.8-10.8)
[2017-03-23 04:20] LABS: INR 2.1 (0.9-1.1)
[2017-03-23 04:31] LABS: BUN/CREATININE RATIO 16.4 (10-20); CALCIUM 8.6 mg/dl (8.5-10.1); CREATININE 1.3 mg/dl (0.60-1.40); POTASSIUM 3.9 mmol/L (3.5-5.1)
[2017-03-23 06:50] VITALS: BP 114/75; PULSE 67; TEMP 37; O2SAT 94
[2017-03-23] MEDS: ISOSORBIDE DINITRATE 40 MG TAB PO SCH ×3 (07:06→16:42)
[2017-03-23] MEDS: PIPERACILL/TAZOBAC IV 3.375 GM in DEXTROSE 5% 100ML IV SCH (07:44)
[2017-03-23] MEDS: ASPIRIN 325 MG ECTAB PO SCH (07:45)
[2017-03-23] MEDS: RANITIDINE HCL 150 MG TAB PO SCH ×2 (07:45→21:20)
[2017-03-23] MEDS: ALLOPURINOL 100 MG TAB PO SCH (07:45)
[2017-03-23] MEDS: INSULIN ASPART 100 UNITS/ML 3 ML PEN SC SCH ×4 (07:49→21:28)
[2017-03-23] MEDS: INSULIN GLARGINE SOLOSTAR 100 UNITS/ML 3 ML PEN SC SCH ×2 (07:50→21:28)
[2017-03-23 10:26] VITALS: BP 114/75; PULSE 67; TEMP 37; O2SAT 94
--- NOTE | 2017-03-23 10:26 | Pharmacy Progress Note ---
Glycemic Control Progress Note Date of Service Mar 23, 2017. Scope Glycemic Pharmacist consulted for glycemic control to write orders per [facility] inpatient glycemic control protocol. Objective Accuchecks BSG (last 24hrs): Test 03/22/17 11:20 03/22/17 16:24 03/22/17 19:31 03/22/17 21:03 Bedside Glucose 270 mg/dl (70-99) 202 mg/dl (70-99) 149 mg/dl (70-99) Random Glucose 201 mg/dl (70-99) Test 03/23/17 02:04 03/23/17 03:59 03/23/17 06:25 Bedside Glucose 110 mg/dl (70-99) 130 mg/dl (70-99) Random Glucose 126 mg/dl (70-99) HbA1c: Test 03/22/17 05:28 Hemoglobin A1c 8.9 % (4.5-5.6) H Recent Pertinent Medications Outpatient Anti-diabetic Regimen: * Lantus 15 units twice daily + Novolog CF of 40 The patient is currently receiving: * Basal insulin: Lantus 25 units x 1 then sliding scale in evening * Correctional Insulin: Novolog Correction per scale ACHS Goal Range: Low 100 mg/dL - High 140 mg/dL Correction Factor: 20 mg/dL/unit * Prandial insulin: Per carb ratio of 1 unit per 7 grams CHO consumed Risk Factors for Insulin Resistance: * Steroids: Solu-Medrol 60 mg IV x 1 on 03/21/17 * Infection: COPD exacerbation vs aspiration PNA on Zosyn * Diet: Type 2 diet Outpatient Anti-Diabetic Meds see above Assessment & Plan ASSESSMENT: * ADA & AACE recommend a goal blood sugar range 140-180 mg/dl for the majority of critically ill & non-critically ill patients. However, more stringent targets may be selected in individual cases. Will utilize more stringent goal of 100-140 mg/dl based on patient age & comorbidities. Additionally, tighter glycemic control is warranted to facilitate infection healing. * Mr Canseco is a 71 y/o M with a PMH of COPD/asthma, CAD, CHF, PE, and CKD stage 3 admitted with COPD exacerbation vs possible aspiration pneumonia. His HbA1C indicates that patient is not well controlled on home regimen. He also received a dose of steroids two days ago (Solu-Medrol 60 mg IV x 1). * Yesterday, the patient was given Lantus 25 units then a sliding scale in the evening. Based upon the scale, patient would have received 20 units HOWEVER, patient refused and received 15 units. Fasting blood sugar is 130 mg/dL which is reasonable for the patient. Will start Lantus 15 units twice daily as this is patient's home dose and effects of steroids should dissipate. Patient may ultimately require Lantus 20 units twice daily. * For correctional insulin, patient started on weight-based stress of 2-3. This appears to be too aggressive as patient's blood sugars trended downwards throughout the day. Loosened to weight-based stress of 2 for time being. PLAN FOR INPATIENT GLYCEMIC CONTROL: * Basal insulin with LANTUS 15 units SQ BID * Correctional Insulin with NOVOLOG / REGULAR per scale ACHS * Goal Range: Low 100 mg/dL - High 140 mg/dL * Correction Factor: 25 mg/dL/unit * Nutritional / Prandial insulin per carb ratio of 1 unit per 8 grams CHO consumed Recommendations for Outpatient Regimen * Patient is slightly above goal HbA1C (7.6-8.0% based upon Elements of Diabetes Care Scoring Scale from ADA). Recommend titrating Lantus based upon home blood sugars and perhaps establishing a fixed Novolog dose or one with a carbohydrate ratio. Thank you.
[2017-03-23 11:30] VITALS: BP 99/58; PULSE 59; TEMP 36.6; O2SAT 91
--- NOTE | 2017-03-23 11:35 | DIAGNOSTIC IMAGING REPORT ---
CHEST 2 VIEWS ROUTINE HISTORY: 71 years-old Male rule out pneumonia acute cough with COPD. Concern for pneumonia. COMPARISON: Chest radiograph 03/21/2017 and 05/10/2016 TECHNIQUE: Frontal and lateral views of the chest FINDINGS: Cardiac silhouette is mildly enlarged. There is mild pulmonary vascular congestion without overt pulmonary edema. No pneumothorax. There is chronic blunting of the left costophrenic angle with hazy subsegmental bibasilar opacities, left greater than right. The bones are grossly intact. IMPRESSION: 1. Subsegmental bibasilar opacities, left greater than right suggests chronic changes with superimposed pneumonia also in the differential. 2. Mild blunting of left costophrenic angle is again seen suggesting scarring or trace pleural effusion. The above report was generated using voice recognition software. It may contain grammatical, syntax or spelling errors. Electronically signed by: Hudson Obregon M.D. 03/23/2017 11:34 AM Dictated Date/Time: 03/23/2017 11:31 AM
[2017-03-23 14:54] VITALS: BP 91/46; PULSE 82; TEMP 36.4; O2SAT 94
[2017-03-23] MEDS: WARFARIN SOD 6 MG TAB PO SCH (16:31)
[2017-03-23] MEDS: AMOXICILLIN/CLAVULANATE TAB 875 MG TAB PO SCH (16:42)
--- NOTE | 2017-03-23 18:17 | Progress Note ---
Internal Med Progress Note Date of Service: Mar 23, 2017. Provider Documentation: SUBJECTIVE: patient breathing on room air, denies further episodes of vomiting since coming up from the ED to medical wards, reported multiple episodes of vomiting in the ED, no chest pain or shortness of breath, no abdominal pain, denies diarrhea OBJECTIVE: Exam: General-NAD, speaking in full sentences, on room air Eyes- EOMI, no jaundice ENT-nontender, no oral or nasal exudates Neck- nontender, no JVD Lungs- right lung lewis with less air entry compared to opposite side Heart- regular rate Abdomen- soft, nontender to palpation Extremities- no edema of extremities Neuro- AO x 3 ASSESSMENT & PLAN: 71 year old male with history of COPD/Asthma/Bronchiectasis, CAD, CHF, PE on coumadin, DM 2, HTN, CKD 3 presenting with vomiting and possible aspiration pneumonitis vs pneumonia with initial treatment of empiric Zosyn IV abx however sputum cultures now growing normal antelmo and blood cultures no grwoth to date GRAM STAIN Final 03/22/17-1139 RESULT MODERATE POLYS FEW MONONUCLEATED CELLS RARE GRAM POSITIVE COCCI SPUTUM CULTURE Preliminary 03/23/17-1326 MODERATE NORMAL ANTELMO Present, Final Report to Follow. follow up CXR IMPRESSION: 1. Subsegmental bibasilar opacities, left greater than right suggests chronic changes with superimposed pneumonia also in the differential. 2. Mild blunting of left costophrenic angle is again seen suggesting scarring or trace pleural effusion. -switch from Zosyn IV to PO Augmentin BID -patient reported syncope with bronchodilators- will not be ordered Initial symptoms associated with chills and vomiting, unclear etiology, patient did not take temperature at home and afebrile on admission HISTORY OF CAD and CHF - continue Aspirin, Imdur, Crestor -restart Lasix if hypervolemic history of coumadin use for thromboembolism - INR therapeutic -continue with home dose coumadin of 4 mg daily for Monday and Monday, 6 mg daily on other days DM 2 -following pharmacy recommendations CKD at baseline DVT PROPHYLAXIS - on coumadin with therapeutic INR Allergies to Levaquin FULL CODE PER PATIENT DISPOSITION: if patient remains clinically stable and no further concerning lab microbiology findings, patient may likely be discharge to home tomorrow follows with Dr. Mortensen for PCP Katharina Colmenares's [facility] Vital Signs: Date Time Temp Pulse Resp B/P (MAP) Pulse Ox O2 Delivery O2 Flow Rate FiO2 03/23/17 14:54 36.4 82 18 91/46 (61) 94 Room Air 03/23/17 11:30 36.6 59 18 99/58 (72) 91 Room Air 03/23/17 10:26 37.0 67 20 94 03/23/17 08:00 Room Air 03/23/17 06:50 37.0 67 20 114/75 (88) 94 Room Air 03/23/17 04:00 Room Air 03/23/17 02:56 36.7 60 21 103/60 (74) 93 Room Air 03/23/17 00:02 Room Air 03/22/17 23:09 36.7 67 21 100/59 (73) 95 Room Air 03/22/17 20:00 Room Air 03/22/17 19:48 36.5 68 20 117/73 (88) 98 Room Air Lab Results: Results Past 24 Hours Test 03/22/17 19:31 03/22/17 21:03 03/23/17 02:04 03/23/17 03:50 Range/Units Sodium Level 132 136-145 mmol/L Potassium Level 4.3 3.5-5.1 mmol/L Chloride Level 100 98-107 mmol/L Carbon Dioxide Level 26 21-32 mmol/L Anion Gap 6.0 3-11 mmol/L Blood Urea Nitrogen 21 7-18 mg/dl Creatinine 1.30 0.60-1.40 mg/dl Est Creatinine Clear Calc Drug Dose 69.0 ml/min Estimated GFR () 64.5 Estimated GFR (Non- 55.7 BUN/Creatinine Ratio 16.4 10-20 Random Glucose 201 70-99 mg/dl Lactic Acid Level 2.5 1.2 0.4-2.0 mmol/L Calcium Level 8.4 8.5-10.1 mg/dl Bedside Glucose 149 110 70-99 mg/dl Test 03/23/17 03:59 03/23/17 06:25 03/23/17 11:29 03/23/17 16:26 Range/Units White Blood Count 11.39 4.8-10.8 K/uL Red Blood Count 4.26 4.7-6.1 M/uL Hemoglobin 11.8 14.0-18.0 g/dL Hematocrit 37.8 42-52 % Mean Corpuscular Volume 88.7 80-100 fL Mean Corpuscular Hemoglobin 27.7 25-34 pg Mean Corpuscular Hemoglobin Concent 31.2 32-36 g/dl Platelet Count 202 130-400 K/uL Mean Platelet Volume 9.8 7.4-10.4 fL Neutrophils (%) (Auto) 79.4 % Lymphocytes (%) (Auto) 10.9 % Monocytes (%) (Auto) 8.3 % Eosinophils (%) (Auto) 0.9 % Basophils (%) (Auto) 0.2 % Neutrophils # (Auto) 9.05 1.4-6.5 K/uL Lymphocytes # (Auto) 1.24 1.2-3.4 K/uL Monocytes # (Auto) 0.95 0.11-0.59 K/uL Eosinophils # (Auto) 0.10 0-0.5 K/uL Basophils # (Auto) 0.02 0-0.2 K/uL RDW Standard Deviation 47.9 36.4-46.3 fL RDW Coefficient of Variation 14.8 11.5-14.5 % Immature Granulocyte % (Auto) 0.3 % Immature Granulocyte # (Auto) 0.03 0.00-0.02 K/uL Prothrombin Time 23.0 9.0-12.0 SECONDS Prothromb Time International Ratio 2.1 0.9-1.1 Sodium Level 135 136-145 mmol/L Potassium Level 3.9 3.5-5.1 mmol/L Chloride Level 102 98-107 mmol/L Carbon Dioxide Level 29 21-32 mmol/L Anion Gap 4.0 3-11 mmol/L Blood Urea Nitrogen 21 7-18 mg/dl Creatinine 1.30 0.60-1.40 mg/dl Est Creatinine Clear Calc Drug Dose 69.0 ml/min Estimated GFR () 64.5 Estimated GFR (Non- 55.7 BUN/Creatinine Ratio 16.4 10-20 Random Glucose 126 70-99 mg/dl Calcium Level 8.6 8.5-10.1 mg/dl Bedside Glucose 130 131 101 70-99 mg/dl
[2017-03-23 20:00] VITALS: O2SAT 94
[2017-03-23] MEDS: ROSUVASTATIN CALCIUM 20 MG TAB PO SCH (21:21)
[2017-03-23] MEDS: PRIMIDONE 250 MG TAB PO SCH (21:21)
[2017-03-23] MEDS: MONTELUKAST SOD 10 MG TAB PO SCH (21:21)
[2017-03-24] VITALS: O2SAT 94
[2017-03-24 00:19] VITALS: BP 112/69; PULSE 76; TEMP 36.7; O2SAT 93
[2017-03-24 07:12] VITALS: BP 123/75; PULSE 69; TEMP 36.6; O2SAT 94
[2017-03-24 07:29] LABS: BASO % 0.4 %; BASO ABS # 0.03 K/uL (0-0.2); COMPLETE YES; EOS % 2.1 %; HEMATOCRIT 36.1 % (42-52); IG% 0.1 %; LYMPH % 13.4 %; MEAN CELL VOLUME 88.9 fL (80-100); MEAN CORPUSCULAR HEMOGLOBIN 27.8 pg (25-34); MEAN CORPUSCULAR HGB CONC 31.3 g/dl (32-36); MEAN PLATELET VOLUME 10.2 fL (7.4-10.4); MONO % 10.4 %; NEUT % 73.6 %; PLATELET COUNT 179 K/uL (130-400); RED BLOOD COUNT 4.06 M/uL (4.7-6.1); WHITE BLOOD COUNT 6.71 K/uL (4.8-10.8)
[2017-03-24 07:36] LABS: INR 2.2 (0.9-1.1); PROTHROMBIN TIME (PATIENT) 24.3 SECONDS (9.0-12.0)
[2017-03-24] MEDS: AMOXICILLIN/CLAVULANATE TAB 875 MG TAB PO SCH (07:46)
[2017-03-24] MEDS: ALLOPURINOL 100 MG TAB PO SCH (07:46)
[2017-03-24] MEDS: ISOSORBIDE DINITRATE 40 MG TAB PO SCH ×2 (07:47→12:35)
[2017-03-24] MEDS: RANITIDINE HCL 150 MG TAB PO SCH (07:47)
[2017-03-24] MEDS: ASPIRIN 325 MG ECTAB PO SCH (07:47)
[2017-03-24] MEDS: INSULIN ASPART 100 UNITS/ML 3 ML PEN SC SCH ×2 (07:49→12:36)
[2017-03-24] MEDS: INSULIN GLARGINE SOLOSTAR 100 UNITS/ML 3 ML PEN SC SCH (07:50)
[2017-03-24 07:59] LABS: BUN/CREATININE RATIO 19.2 (10-20); CALCIUM 8.7 mg/dl (8.5-10.1); CREATININE 1.1 mg/dl (0.60-1.40)
[2017-03-24 08:32] VITALS: O2SAT 93
[2017-03-24] MEDS ORDERED: FUROSEMIDE 20 MG TAB PO SCH (09:00)
--- NOTE | 2017-03-24 13:03 | Pharmacy Progress Note ---
Glycemic: Assessment & Plan Date of Service Mar 24, 2017. Assessment & Plan * Patient is currently receiving an average of 55 units of insulin per day * 30 units of basal insulin * BSGs ranging 101-195 over the past 24hrs * Risk factors for insulin resistance are constant over the past 24hrs * Anticipating insulin regimen will need increased for the next 24hrs d/t : * AM Fasting BSG = 163 therefore Basal insulin needs increased - est total basal needs ~36 units * Postprandial BSGs are somewhat elevated, but I believe this is due to a lack of basal insulin. Will plan to tighten CF to provide additional correctional insulin until increased Lantus dose given tonight. PLAN FOR GLYCEMIC CONTROL: * Increase Lantus to 18 units BID * Tighten CF to 20 mg/dL/unit Pharmacy will continue to monitor patient daily and write orders per [facility] inpatient glycemic control protocol. Thanks. * Please note that the plan above was derived based on current level of insulin resistance and hospital stress. These recommendations are appropriate for inpatient admission only. Plan of care upon discharge will need to be reassessed to avoid potential outpatient hypo/hyperglycemia.
[2017-03-24 14:45] VITALS: BP 94/56; PULSE 61; TEMP 36.8; O2SAT 92
--- NOTE | 2017-03-24 15:00 | Progress Note ---
Internal Med Progress Note Date of Service: Mar 24, 2017. Provider Documentation: SUBJECTIVE: Patient breathing on room air sitting on chair. Has dry cough, Denies: chest pain or shortness of breath or abdominal pain or changes in urination or bowel movements OBJECTIVE: Exam: General-NAD, speaking in full sentences, on room air Eyes- EOMI, no jaundice ENT-nontender, no oral or nasal exudates Neck- nontender, no JVD Lungs- good air entry, no wheezing, no crackles appreciated, slight rhonchi Heart- regular rate Abdomen- soft, nontender to palpation Extremities- no edema of extremities Neuro- AO x 3 ASSESSMENT & PLAN: 71 year old male with history of COPD/Asthma/Bronchiectasis, CAD, CHF, PE on coumadin, DM 2, HTN, CKD 3 presenting with vomiting and possible aspiration pneumonitis vs pneumonia with initial treatment of empiric Zosyn IV antibiotics on admission from 03/21/17 which was transitioned to oral antibiotics amoxicillin/ clavulanate 875 mg BID on 03/23/17 with sputum culture resulting in HAEMO. INFLU BETALACTAMASE NEG GRAM STAIN Final 03/22/17-1139 RESULT MODERATE POLYS FEW MONONUCLEATED CELLS RARE GRAM POSITIVE COCCI SPUTUM CULTURE Final 03/24/17-0909 Organism 1 HAEMO. INFLU BETALACTAMASE NEG QUANITY MODERATE SENS NO SENSITIVITY TO FOLLOW NORMAL AMANDA LIGHT NORMAL AMANDA Will discharge home on amoxicillin/clavulanate 875 mg BID HISTORY OF CAD and CHF - continue Aspirin, Imdur, Crestor - Lasix restarted history of coumadin use for thromboembolism - INR therapeutic -continue with home dose coumadin of 4 mg daily for Monday and Monday, 6 mg daily on other days DM 2 -can restart home insulin regimen at home CKD at baseline DVT PROPHYLAXIS - on coumadin with therapeutic INR FULL CODE PER PATIENT DISPOSITION: discharge to home with self care, follow up appointment with Dr. Mortensen General Internal Medicine [facility] on 03/31/17 at 10: 25 AM, Patient also has Appointment Pulmonary Function Lab, [facility] in 04/25/2017 Vital Signs: Date Time Temp Pulse Resp B/P (MAP) Pulse Ox O2 Delivery O2 Flow Rate FiO2 03/24/17 14:45 36.8 61 20 94/56 (69) 92 Room Air 03/24/17 09:00 Room Air 03/24/17 08:32 93 Room Air 03/24/17 07:12 36.6 69 20 123/75 (91) 94 Room Air 03/24/17 00:19 36.7 76 18 112/69 (83) 93 Room Air 03/24/17 00:00 94 Room Air 03/23/17 20:00 94 Room Air 03/23/17 15:30 Room Air Lab Results: Results Past 24 Hours Test 03/23/17 16:26 03/23/17 20:33 03/24/17 07:04 03/24/17 07:25 Range/Units Bedside Glucose 101 195 163 70-99 mg/dl White Blood Count 6.71 4.8-10.8 K/uL Red Blood Count 4.06 4.7-6.1 M/uL Hemoglobin 11.3 14.0-18.0 g/dL Hematocrit 36.1 42-52 % Mean Corpuscular Volume 88.9 80-100 fL Mean Corpuscular Hemoglobin 27.8 25-34 pg Mean Corpuscular Hemoglobin Concent 31.3 32-36 g/dl Platelet Count 179 130-400 K/uL Mean Platelet Volume 10.2 7.4-10.4 fL Neutrophils (%) (Auto) 73.6 % Lymphocytes (%) (Auto) 13.4 % Monocytes (%) (Auto) 10.4 % Eosinophils (%) (Auto) 2.1 % Basophils (%) (Auto) 0.4 % Neutrophils # (Auto) 4.93 1.4-6.5 K/uL Lymphocytes # (Auto) 0.90 1.2-3.4 K/uL Monocytes # (Auto) 0.70 0.11-0.59 K/uL Eosinophils # (Auto) 0.14 0-0.5 K/uL Basophils # (Auto) 0.03 0-0.2 K/uL RDW Standard Deviation 49.0 36.4-46.3 fL RDW Coefficient of Variation 15.0 11.5-14.5 % Immature Granulocyte % (Auto) 0.1 % Immature Granulocyte # (Auto) 0.01 0.00-0.02 K/uL Prothrombin Time 24.3 9.0-12.0 SECONDS Prothromb Time International Ratio 2.2 0.9-1.1 Sodium Level 136 136-145 mmol/L Potassium Level 4.0 3.5-5.1 mmol/L Chloride Level 101 98-107 mmol/L Carbon Dioxide Level 28 21-32 mmol/L Anion Gap 7.0 3-11 mmol/L Blood Urea Nitrogen 21 7-18 mg/dl Creatinine 1.10 0.60-1.40 mg/dl Est Creatinine Clear Calc Drug Dose 81.5 ml/min Estimated GFR () 79.0 Estimated GFR (Non- 68.1 BUN/Creatinine Ratio 19.2 10-20 Random Glucose 153 70-99 mg/dl Calcium Level 8.7 8.5-10.1 mg/dl Test 03/24/17 11:27 Range/Units Bedside Glucose 188 70-99 mg/dl
[2017-03-24] MEDS ORDERED: AMOX1TAB43 PO (15:11)
--- NOTE | 2017-03-24 15:14 | Discharge Instructions ---
Discharge Instructions Date of Service Mar 24, 2017. Admission Reason for Admission: Aspiration Pneumonia Discharge Discharge Diagnosis / Problem: vomitting, pneumonia, haemophilus influenza Discharge Goals Goal(s): Decrease discomfort Activity Recommendations Activity Limitations: resume your previous activity . Instructions / Follow-Up Instructions / Follow-Up discharge to home with self care, follow up appointment with Dr. Mortensen General Internal Medicine [facility] on 03/31/17 at 10:25 AM, Patient also has Appointment Pulmonary Function Lab, [facility] in 04/25/2017. take Amoxicillin Cannulate 875 mg BID for 4 more days to treat cough secondary to pneumonia sceondary to haemophilus influenza Current Hospital Diet Patient's current hospital diet: Diabetes Type 2 Diet Discharge Diet Recommended Diet: Diabetes Type 2 Diet Procedures Procedures Performed: sputum culture Pending Studies Studies pending at discharge: no Laboratory Results 03/24/17 07:04 Red Blood Count 4.06, Mean Corpuscular Volume 88.9, Mean Corpuscular Hemoglobin 27.8, Mean Corpuscular Hemoglobin Concent 31.3, Mean Platelet Volume 10.2, Neutrophils (%) (Auto) 73.6, Lymphocytes (%) (Auto) 13.4, Monocytes (%) (Auto) 10.4, Eosinophils (%) (Auto) 2.1, Basophils (%) (Auto) 0.4, Neutrophils # (Auto ) 4.93, Lymphocytes # (Auto) 0.90, Monocytes # (Auto) 0.70, Eosinophils # (Auto ) 0.14, Basophils # (Auto) 0.03 03/24/17 07:04 Test 03/21/17 18:13 03/21/17 19:07 03/21/17 19:11 03/22/17 00:00 Activated Partial Thromboplast Time 38.7 SECONDS (21.0-31.0) Partial Thromboplastin Ratio 1.5 Total Bilirubin 0.4 mg/dl (0.2-1) Direct Bilirubin 0.1 mg/dl (0-0.2) Aspartate Amino Transf (AST/SGOT) 30 U/L (15-37) Alanine Aminotransferase (ALT/SGPT) 19 U/L (12-78) Alkaline Phosphatase 109 U/L (45-117) Total Creatine Kinase 51 U/L (39-308) Creatine Kinase MB 0.5 ng/ml (0.5-3.6) Creatine Kinase MB Ratio 1.0 (0-3.0) Troponin I < 0.015 ng/ml (0-0.045) Pro-B-Type Natriuretic Peptide 896 pg/ml (0-900) Total Protein 8.5 gm/dl (6.4-8.2) Albumin 3.3 gm/dl (3.4-5.0) Lipase 67 U/L (73-393) Bedside Lactic Acid Venous 1.86 mmol/L (0.90-1.70) Bedside Troponin I < 0.030 ng/ml (0-0.045) Bedside Hemoglobin 12.9 g/dl (14.0-18.0) Bedside Hematocrit 38 % (42-52) Bedside Sodium 136 mEq/L (135-144) Bedside Potassium 3.5 mEq/L (3.3-5.0) Bedside Chloride 96 mEq/L (101-112) Bedside Total CO2 26 mEq/l (24-31) Bedside Blood Urea Nitrogen 16 mg/dl (7-18) Bedside Creatinine 1.1 mg/dl (0.6-1.3) Bedside Glucose (other) 151 mg/dl (70-99) Bedside Ionized Calcium ([place]) 1.16 mmol/l (1.12-1.32) Urine Color YELLOW Urine Appearance CLEAR (CLEAR) Urine pH 7.5 (4.5-7.5) Urine Specific [place] 1.022 (1.000-1.030) Urine Protein 2+ (NEG) Urine Glucose (UA) TRACE (NEG) Urine Ketones NEG (NEG) Urine Occult Blood TRACE (NEG) Urine Nitrite NEG (NEG) Urine Bilirubin NEG (NEG) Urine Urobilinogen NEG (NEG) Urine Leukocyte Esterase NEG (NEG) Urine WBC (Auto) 1-5 /hpf (0-5) Urine RBC (Auto) 0-4 /hpf (0-4) Urine Hyaline Casts (Auto) 5-10 /lpf (0-5) Urine Epithelial Cells (Auto) >30 /lpf (0-5) Urine Bacteria (Auto) NEG (NEG) Urine Renal Epithelial Cells /lpf (0-5) Urine Pathogenic Casts 1-5 GRANULAR CASTS /lpf (0) Test 03/22/17 05:28 03/23/17 03:50 03/24/17 07:04 03/24/17 11:27 Estimated Average Glucose 209 mg/dl Hemoglobin A1c 8.9 % (4.5-5.6) Lactic Acid Level 1.2 mmol/L (0.4-2.0) White Blood Count 6.71 K/uL (4.8-10.8) Red Blood Count 4.06 M/uL (4.7-6.1) Hemoglobin 11.3 g/dL (14.0-18.0) Hematocrit 36.1 % (42-52) Mean Corpuscular Volume 88.9 fL (80-100) Mean Corpuscular Hemoglobin 27.8 pg (25-34) Mean Corpuscular Hemoglobin Concent 31.3 g/dl (32-36) Platelet Count 179 K/uL (130-400) Mean Platelet Volume 10.2 fL (7.4-10.4) Neutrophils (%) (Auto) 73.6 % Lymphocytes (%) (Auto) 13.4 % Monocytes (%) (Auto) 10.4 % Eosinophils (%) (Auto) 2.1 % Basophils (%) (Auto) 0.4 % Neutrophils # (Auto) 4.93 K/uL (1.4-6.5) Lymphocytes # (Auto) 0.90 K/uL (1.2-3.4) Monocytes # (Auto) 0.70 K/uL (0.11-0.59) Eosinophils # (Auto) 0.14 K/uL (0-0.5) Basophils # (Auto) 0.03 K/uL (0-0.2) RDW Standard Deviation 49.0 fL (36.4-46.3) RDW Coefficient of Variation 15.0 % (11.5-14.5) Immature Granulocyte % (Auto) 0.1 % Immature Granulocyte # (Auto) 0.01 K/uL (0.00-0.02) Prothrombin Time 24.3 SECONDS (9.0-12.0) Prothromb Time International Ratio 2.2 (0.9-1.1) Anion Gap 7.0 mmol/L (3-11) Est Creatinine Clear Calc Drug Dose 81.5 ml/min Estimated GFR () 79.0 Estimated GFR (Non- 68.1 BUN/Creatinine Ratio 19.2 (10-20) Calcium Level 8.7 mg/dl (8.5-10.1) Bedside Glucose 188 mg/dl (70-99) Date/Time Source Procedure Growth Status 03/21/17 19:02 Blood Blood Culture - Preliminary NO GROWTH TO DATE. Resulted 03/22/17 08:00 Sputum Expectorated Sputum Gram Stain - Final Complete 03/22/17 08:00 Sputum Culture - Final Haemo. Influ Betalactamase Neg Complete 03/22/17 00:00 Urine , Clean Catch Urine Culture - Final THREE TYPES OF ORGANISMS PRESENT, ALL... Complete Hemoglobin A1c Test 03/22/17 05:28 Range/Units Estimated Average Glucose 209 mg/dl Hemoglobin A1c 8.9 H 4.5-5.6 % Medical Emergencies . Who to Call and When: Medical Emergencies: If at any time you feel your situation is an emergency, please call 911 immediately. . Non-Emergent Contact Non-Emergency issues call your: Primary Care Provider Call Non-Emergent contact if: you have a fever, you have any medication questions . . "Provider Documentation" section prepared by Michael Macario. . VTE Core Measure Inpt VTE Proph given/why not?: Warfarin (Coumadin)
--- NOTE | 2017-03-24 15:18 | Discharge Summary ---
Discharge Summary Date of Service Mar 24, 2017. Discharge Summary Admission Date: Mar 21, 2017 at 23:23 Discharge Disposition: Home Principal Diagnosis: vomiting, pneumonia secondary to haemophilus influenza, diabetes, Coumadin use for history of thromboembolism in the past Procedures: sputum culture Medication Reconciliation New Medications: Amoxicillin & Pot Clavulanate (Amoxicillin/Clavulanate P) 1 Tab Tab 875 MG PO BIDM for 4 Days, #8 TAB Continued Medications: Allopurinol (Allopurinol) 300 Mg Tab 300 MG PO DAILY Aspirin (Aspirin) 325 Mg Tab 325 MG PO DAILY Hydrocodone-Acetaminophen (Hydrocodone/Acetaminophen) 1 Tab Tab 5-325 MG PO Q6H PRN for Pain Insulin Aspart (Novolog) Inj 0 SC TIDM for 30 Days, 0 Refills blood sugar: 80 to 120: no insulin 120 to 160: 2 units insulin 160 to 200: 4 units 200 to 260: 6 units 260 to 300; 8 units more than 300, call your primary care Insulin Glargine (Lantus) Vial 15 UNITS SC BID, VIAL Isosorbide Dinitrate (Isordil) 40 Mg Tab 40 MG PO TID Montelukast Sodium (Singulair) 10 Mg Tab 10 MG PO QPM Nitroglycerin (Nitrostat) 0.4 Mg Tab 0.4 MG UT UD PRN for Chest Pain, 0 Refills Primidone (Mysoline) 250 Mg Tab 250 MG PO HS, 0 Refills Ranitidine (Zantac) 150 Mg Tab 150 MG PO BID, 0 Refills Rosuvastatin Calcium (Crestor) 40 Mg Tab 40 MG PO HS Warfarin Sod (Jantoven) 2 Mg Tab 4 MG PO DIRECTED TAKE 4MG ON MONDAY AND MONDAY Warfarin Sod (Jantoven) 2 Mg Tab 6 MG PO DIRECTED, TAB TAKE 6MG EVERYDAY EXCEPT MONDAY AND MONDAY Admission Information HPI (per Admitting provider): 71 year old male with history of COPD/Asthma/Bronchiectasis, CAD, CHF, PE on coumadin, DM 2, HTN, CKD 3 presenting with vomiting. Follows with Dr. Mortensen for PCP and Pulmonary Clinic in [facility]. Patient was apparently doing fine until late this afternoon when he suddenly experienced "shivering". At around dinner time, patient then developed nausea followed by vomiting at least 2-3 times, previously ingested food. He was then brought to the ER. At the ER, patient was noted to have persistent coughing . CXR did not show pneumonia. Patient did received Zosyn, Zofran and Ativan. On exam, patient was 93% on room air, sitting up in bed, appears tired but not in distress. States he has been having profuse dry cough at the ER since arrival but denies dyspnea. Chills and nausea/vomiting has improved. Denies headache, dizziness, sore throat, chest pain, abdominal pain, changes with urination/bowel movement. No other symptoms. Physical Exam (per Admitting): General Appearance: WD/WN, no apparent distress Head: normocephalic, atraumatic Eyes: normal inspection, EOMI, sclerae normal ENT: normal ENT inspection, hearing grossly normal, pharynx normal Neck: supple, no adenopathy, thyroid normal, no JVD, trachea midline Respiratory/Chest: chest non-tender, no respiratory distress, no accessory muscle use, + pertinent finding (scattered mild wheezing at the bases right> left) Cardiovascular: regular rate, rhythm, no edema, no JVD, no murmur Abdomen/GI: normal bowel sounds, non tender, soft, no organomegaly Back: normal inspection, no CVA tenderness Extremities/Musculoskelatal: normal inspection, no calf tenderness, no pedal edema Neurologic/Psych: balance weigher II-XII nml as tested, no motor/sensory deficits, alert , normal mood/affect, oriented x 3 Skin: normal color, warm/dry, no rash Lymphatic: no adenopathy Physical Exam (per Admitting): exam on admission General Appearance: WD/WN, no apparent distress Head: normocephalic, atraumatic Eyes: normal inspection, EOMI, sclerae normal ENT: normal ENT inspection, hearing grossly normal, pharynx normal Neck: supple, no adenopathy, thyroid normal, no JVD, trachea midline Respiratory/Chest: chest non-tender, no respiratory distress, no accessory muscle use, + pertinent finding (scattered mild wheezing at the bases right> left) Cardiovascular: regular rate, rhythm, no edema, no JVD, no murmur Abdomen/GI: normal bowel sounds, non tender, soft, no organomegaly Back: normal inspection, no CVA tenderness Extremities/Musculoskelatal: normal inspection, no calf tenderness, no pedal edema Neurologic/Psych: balance weigher II-XII nml as tested, no motor/sensory deficits, alert, normal mood/affect, oriented x 3 Skin: normal color, warm/dry, no rash Lymphatic: no adenopathy Hospital Course 71 year old male with history of COPD/Asthma/Bronchiectasis, CAD, CHF, PE on coumadin, DM 2, HTN, CKD 3 presenting with vomiting and possible aspiration pneumonitis vs pneumonia with initial treatment of empiric Zosyn IV antibiotics on admission from 03/21/17 which was transitioned to oral antibiotics amoxicillin/ clavulanate 875 mg BID on 03/23/17 with sputum culture resulting in HAEMO. INFLU BETALACTAMASE NEG GRAM STAIN Final 03/22/17-1139 RESULT MODERATE POLYS FEW MONONUCLEATED CELLS RARE GRAM POSITIVE COCCI SPUTUM CULTURE Final 03/24/17-0909 Organism 1 HAEMO. INFLU BETALACTAMASE NEG QUANITY MODERATE SENS NO SENSITIVITY TO FOLLOW NORMAL AMANDA LIGHT NORMAL AMANDA Will discharge home on amoxicillin/clavulanate 875 mg BID HISTORY OF CAD and CHF - continue Aspirin, Imdur, Crestor - Lasix restarted history of coumadin use for thromboembolism - INR therapeutic -continue with home dose coumadin of 4 mg daily for Monday and Monday, 6 mg daily on other days DM 2 -can restart home insulin regimen at home CKD at baseline DVT PROPHYLAXIS - on coumadin with therapeutic INR FULL CODE PER PATIENT DISPOSITION: discharge to home with self care, follow up appointment with Dr. Mortensen General Internal Medicine [facility] on 03/31/17 at 10: 25 AM, Patient also has Appointment Pulmonary Function Lab, [facility] in 04/25/2017 Total time spent on discharge = This includes examination of the patient, discharge planning, medication reconciliation, and communication with other providers. Discharge Instructions discharge to home with self care, follow up appointment with Dr. Mortensen General Internal Medicine [facility] on 03/31/17 at 10:25 AM, Patient also has Appointment Pulmonary Function Lab, [facility] in 04/25/2017
[2017-03-24 15:20] VITALS: BP 94/56; PULSE 61; TEMP 36.8; O2SAT 92
[2017-03-24] MEDS ORDERED: WARFARIN SOD 4 MG TAB PO SCH (16:00)
[2017-03-24] MEDS ORDERED: INSULIN GLARGINE SOLOSTAR 100 UNITS/ML 3 ML PEN SC SCH ×2 (21:00)
--- NOTE | 2017-03-29 05:56 | EDITING REQUIRED CODING QUERY ---
CODING QUERY To promote full compliance with coding requirements relating to patient care, provider participation is requested in all cases of drafter tool design uncertainty. Please assist us with the question(s) below: Coding Question(s): Patient admitted with possible aspiration pneumonitits vs pneumonia with sputum culture resulting in HAEMO. INFLU BETALACTAMASE NEG. Was aspiration pneumonitis ruled out or still a possible cause for patient's inpatient stay? Thanks. Physician's Response(s): Pneumonitis was a initial working diagnosis as there was no obvious source of illness. His chest x ray generally was okay with some infiltrates. When the sputum culture came back with haemo influ, this seemed to explain initial triggers of vomiting as the chief complaint when he was admitted from emergency room. Thank you Dinah Tillman Principal Diagnosis: "_that condition established after study, to be chiefly responsible for occasioning the admission of the patient to the hospital for care." Co-Existing Principal Diagnosis: "_when two or more diagnoses equally meet the criteria for principal diagnosis as determined by the circumstances of admission, diagnostic work up, and/or therapy provided, and the Alphabetic Index, Tabular List, or another coding guideline does not provide sequencing direction, any one of the diagnoses may be sequenced first." "When the physician has documented what appears to be a current diagnosis in the body of the record, but has not included the diagnosis in the final diagnostic statement, the physician should be asked whether the diagnosis should be added." (Source Coding Clinic 2 QTR90. p3-4)
== END 2017-03-24 16:12 | disposition home or self-care (01) | DRG 178 ==
LOC: EDBD 18:28 → C.EDB 18:29 → EDBEDREQ 22:41 → ENRESERV 22:54 → C.2T 23:23 → EDBEDREQ 03-23 10:34 → ENRESERV 03-23 10:39 → C.MS2W 03-23 11:23
PROVIDERS: ADMIT Internal Medicine; ATTEND Hospitalist
DX: J69.0 Pneumonitis due to inhalation of food and vomit (principal); J44.0 Chronic obstructive pulmonary disease with (acute) lower respiratory infection; I13.0 Hypertensive heart and chronic kidney disease with heart failure and stage 1 through stage 4 chronic kidney disease, or unspecified chronic kidney disease; J44.1 Chronic obstructive pulmonary disease with (acute) exacerbation; J14 Pneumonia due to Hemophilus influenzae; R68.83 Chills (without fever); R74.0 Nonspecific elevation of levels of transaminase and lactic acid dehydrogenase [LDH]; E87.5 Hyperkalemia; I50.9 Heart failure, unspecified; I25.10 Atherosclerotic heart disease of native coronary artery without angina pectoris; E11.22 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 diabetic chronic kidney disease; N18.3 Chronic kidney disease, stage 3 (moderate); Z86.711 Personal history of pulmonary embolism; Z86.14 Personal history of Methicillin resistant Staphylococcus aureus infection; Z87.891 Personal history of nicotine dependence; Z79.01 Long term (current) use of anticoagulants; Z79.4 Long term (current) use of insulin; Z79.82 Long term (current) use of aspirin; Z79.899 Other long term (current) drug therapy; Z90.49 Acquired absence of other specified parts of digestive tract; Z89.422 Acquired absence of other left toe(s); Z82.49 Family history of ischemic heart disease and other diseases of the circulatory system; Z83.3 Family history of diabetes mellitus; Z88.1 Allergy status to other antibiotic agents; Z88.8 Allergy status to other drugs, medicaments and biological substances

== ENCOUNTER 2017-05-29 19:41 | Emergency (ER) | payer OTHER, MEDICARE ==
[~2017-05-29] VITALS: Ht 185.4 cm; Wt 109.8 kg
[~2017-05-29 19:41] MED LIST changes: +AMOX1TAB43 PO; -CYAN10005 PO; -FERR1TAB23 PO; -HYDR5SYP11 PO; -PRIM250T30 PO; +PRIM250T9 PO; -ZTHM250 PO
[2017-05-29] MEDS ORDERED: ONDANSETRON INJ 2 MG/ML 2 ML VIAL IV STA (19:48)
[2017-05-29 19:55] VITALS: O2SAT 98
--- NOTE | 2017-05-29 19:55 | EMERGENCY ROOM VISIT NOTE ---
History Report prepared by Alexaibe: Josi Pritchard Under the Supervision of: Santosh GarciaO. First contact with patient: 19:43 Stated Complaint: CHEST PAIN History of Present Illness The patient is a 71 year old male who presents to the Emergency Room with complaints of intermittent chest pain that began around 1530 this afternoon. He reports he was playing cards when the pain started. He took an Aspirin, and the pain resolved. The pain then came back, so he took a Nitroglycerin. His pain went away, so he decided to go bowling with friends this evening. He states during bowling, his chest pain returned and he became very nauseous, but did not vomit. He called EMS and was given 4 baby Aspirin in the field. He admits to shortness of breath, but notes he has COPD and states the shortness of breath is chronic. He denies any increased coughing or pain or swelling in his legs. The patient admits to a history of an MS almost 20 years ago. He has never had stents placed. His PCP is Dr. Mortensen at [facility]. Source of History: patient Onset: 1530 this afternoon Position: chest Timing: intermittent Modifying Factors (Relieving): other (Aspirin, Nitroglycerin) Associated Symptoms: + SOB, + nausea, No cough, No vomiting Review of Systems See HPI for pertinent positives & negatives. A total of 10 systems reviewed and were otherwise negative. Past Medical & Surgical Medical Problems: (1) VIOLETTA inhibitor intolerance (2) Asthma (3) Benign hypertension (4) Cerebrovascular disease (5) CHF (congestive heart failure) (6) Chronic ischemic heart disease (7) Chronic kidney disease stage 3 (8) Chronic obstructive lung disease (9) Coronary artery disease (10) Deep venous thrombosis of lower extremity (11) Diabetes mellitus type 2 (12) Diabetic peripheral neuropathy associated with type 2 diabetes mellitus (13) Foot deformity (14) History of - deep vein thrombosis (15) History of - pulmonary embolus (16) History of diabetic ulcer of foot (17) Hyperlipidemia (18) Loss of sensation (19) Pericardial effusion (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 (21) Systolic heart failure Surgical Problems: (1) H/O toe surgery (2) History of tonsillectomy (3) S/P laparoscopic cholecystectomy Family History Diabetes mellitus Heart disease Social History Smoking Status: Former Smoker Alcohol Use: occasionally Drug Use: none Marital Status: Housing Status: lives with significant other Occupation Status: retired Current/Historical Medications Scheduled Allopurinol (Allopurinol), 300 MG PO DAILY Amoxicillin & Pot Clavulanate (Amoxicillin/Clavulanate P), 875 MG PO BIDM Amoxicillin & Pot Clavulanate (Augmentin 875-125 mg), 1 TAB PO BID Aspirin (Aspirin), 325 MG PO DAILY Insulin Aspart (Novolog), 0 SC TIDM Insulin Glargine (Lantus), 15 UNITS SC BID Isosorbide Dinitrate (Isordil), 40 MG PO TID Montelukast Sodium (Singulair), 10 MG PO QPM Primidone (Mysoline), 250 MG PO HS Ranitidine (Zantac), 150 MG PO BID Rosuvastatin Calcium (Crestor), 40 MG PO HS Warfarin Sod (Jantoven), 4 MG PO DIRECTED Warfarin Sod (Jantoven), 6 MG PO DIRECTED Scheduled PRN Hydrocodone-Acetaminophen (Hydrocodone/Acetaminophen), 5-325 MG PO Q6H PRN for Pain Nitroglycerin (Nitrostat), 0.4 MG UT UD PRN for Chest Pain Allergies Coded Allergies: Onion (Verified Allergy, Intermediate, RASH, 05/07/16) Levofloxacin (Verified Allergy, Mild, other, 05/07/16) ' Albuterol (Verified Adverse Reaction, Mild, 0, 05/07/16) cough syncope Ipratropium (Verified Adverse Reaction, Mild, 0, 05/07/16) cough syncope Physical Exam Vital Signs Date Time Temp Pulse Resp B/P (MAP) Pulse Ox O2 Delivery O2 Flow Rate FiO2 05/29/17 21:30 86 16 114/59 94 Room Air 05/29/17 21:08 81 05/29/17 19:58 36.9 89 22 147/64 98 Room Air 05/29/17 19:55 95 Room Air 05/29/17 19:55 98 Room Air 05/29/17 19:55 98 Room Air Physical Exam GENERAL: Patient is awake, alert, in no acute distress, patient is resting comfortably and showing no signs of anxiety EYES: The conjunctivae are clear. The pupils are round and reactive. EARS, NOSE, MOUTH AND THROAT: The nose is without any evidence of any deformity. Mucous membranes are moist tongue is midline NECK: The neck is nontender and supple. RESPIRATORY: Lung sounds are diminished throughout with expiratory wheezing in all lewis. No tachypnea or conversational dyspnea appreciated. CARDIOVASCULAR: Regular rate and rhythm noted there no murmurs rubs or gallops normal S1 normal S2 GASTROINTESTINAL: The abdomen is soft. Bowel sounds are present in all quadrants. Abdomen is nontender MUSCULOSKELETAL/EXTREMITIES: There is no evidence of gross deformity full range of motion is noted in the hips and shoulders SKIN: Pedal edema bilaterally. There is no obvious evidence of any rash. There are no petechiae, pallor or cyanosis noted. NEUROLOGIC: Patient is awake alert and oriented x3 Medical Decision & Procedures ER Provider Diagnostic Interpretation: Radiology results as stated below per my review and radiologist interpretation: CHEST ONE VIEW PORTABLE CLINICAL HISTORY: Respiratory distress. Dyspnea. COMPARISON STUDY: Chest radiograph April 22, 2017. FINDINGS: Lung volumes are normal. Blunting of the left costophrenic angle is chronic. Cardiomediastinal silhouette is stable. There is no evidence of pulmonary edema. Mild bibasilar opacities favor atelectasis. IMPRESSION: Mild bibasilar opacities. Left basilar opacity reflects atelectasis while right basilar opacity favors atelectasis although pneumonia could appear similar. Electronically signed by: Supa Bassett M.D. 05/29/2017 8:12 PM Laboratory Results 05/29/17 20:05 Red Blood Count 4.45, Mean Corpuscular Volume 87.9, Mean Corpuscular Hemoglobin 28.5, Mean Corpuscular Hemoglobin Concent 32.5, Mean Platelet Volume 9.9, Neutrophils (%) (Auto) 89.0, Lymphocytes (%) (Auto) 5.6, Monocytes (%) (Auto) 4.5, Eosinophils (%) (Auto) 0.5, Basophils (%) (Auto) 0.1, Neutrophils # (Auto) 13.76, Lymphocytes # (Auto) 0.86, Monocytes # (Auto) 0.69, Eosinophils # (Auto) 0.08, Basophils # (Auto) 0.02 05/29/17 20:05 Test 05/29/17 20:05 White Blood Count 15.45 K/uL (4.8-10.8) Red Blood Count 4.45 M/uL (4.7-6.1) Hemoglobin 12.7 g/dL (14.0-18.0) Hematocrit 39.1 % (42-52) Mean Corpuscular Volume 87.9 fL (80-100) Mean Corpuscular Hemoglobin 28.5 pg (25-34) Mean Corpuscular Hemoglobin Concent 32.5 g/dl (32-36) Platelet Count 195 K/uL (130-400) Mean Platelet Volume 9.9 fL (7.4-10.4) Neutrophils (%) (Auto) 89.0 % Lymphocytes (%) (Auto) 5.6 % Monocytes (%) (Auto) 4.5 % Eosinophils (%) (Auto) 0.5 % Basophils (%) (Auto) 0.1 % Neutrophils # (Auto) 13.76 K/uL (1.4-6.5) Lymphocytes # (Auto) 0.86 K/uL (1.2-3.4) Monocytes # (Auto) 0.69 K/uL (0.11-0.59) Eosinophils # (Auto) 0.08 K/uL (0-0.5) Basophils # (Auto) 0.02 K/uL (0-0.2) RDW Standard Deviation 48.3 fL (36.4-46.3) RDW Coefficient of Variation 15.2 % (11.5-14.5) Immature Granulocyte % (Auto) 0.3 % Immature Granulocyte # (Auto) 0.04 K/uL (0.00-0.02) Prothrombin Time 42.5 SECONDS (9.0-12.0) Prothromb Time International Ratio 3.8 (0.9-1.1) Activated Partial Thromboplast Time 52.3 SECONDS (21.0-31.0) Partial Thromboplastin Ratio 2.0 Anion Gap 11.0 mmol/L (3-11) Est Creatinine Clear Calc Drug Dose 69.1 ml/min Estimated GFR () 63.9 Estimated GFR (Non- 55.2 BUN/Creatinine Ratio 10.7 (10-20) Calcium Level 9.1 mg/dl (8.5-10.1) Total Bilirubin 0.6 mg/dl (0.2-1) Aspartate Amino Transf (AST/SGOT) 19 U/L (15-37) Alanine Aminotransferase (ALT/SGPT) 14 U/L (12-78) Alkaline Phosphatase 90 U/L (45-117) Troponin I < 0.015 ng/ml (0-0.045) Pro-B-Type Natriuretic Peptide 860 pg/ml (0-900) Total Protein 8.0 gm/dl (6.4-8.2) Albumin 3.1 gm/dl (3.4-5.0) Globulin 4.9 gm/dl (2.5-4.0) Albumin/Globulin Ratio 0.6 (0.9-2) Chemistry Specimen Hemolysis Laboratory results per my review. Medications Administered Medications (Trade) Dose Ordered Sig/Kendrick Route Start Time Stop Time Status Last Admin Dose Admin Ondansetron HCl (Zofran Inj) 4 mg NOW STAT IV 05/29/17 19:48 05/29/17 19:50 DC 05/29/17 20:20 4 MG Amoxicillin/ Clavulanate Potassium (Augmentin 875MG Home Pack) 1 homepack UD ONCE PO 05/29/17 21:00 05/29/17 21:01 DC 05/29/17 21:36 1 HOMEPACK Amoxicillin/ Clavulanate Potassium (Augmentin Tab) 875 mg NOW ONCE PO 05/29/17 21:00 05/29/17 21:01 DC 05/29/17 21:36 875 MG ECG Indication: chest pain Rate (beats per minute): 89 Rhythm: normal sinus Findings: no ectopy, other (No acute ST segments) Change: no significant change (No change from 03/21/17) ED Course 1943: The patient was evaluated in room C11. A complete history and physical examination were performed. 1947: Zofran 4 mg IV. 2056: I reevaluated the patient. He is feeling well and resting comfortably. I discussed his results and discharge instructions and he verbalized complete understanding and agreement. 2100: Augmentin Tab 875 mg PO, Augmentin 875 mg 1 homepack PO. Medical Decision Prior records/ancillary studies reviewed. Triage Nursing notes reviewed. The patient's history was concerning for chest pain. Differential diagnosis: Etiologies such as cardiac ischemia, aortic dissection, pulmonary embolism, pneumonia, pneumothorax, musculoskeletal, infections, pericarditis, myocarditis , esophageal rupture, gastrointestinal, as well as others were entertained. The patient is a 71-year-old male who presented to the emergency department for an evaluation of chest discomfort. The patient states that he was having chest discomfort which was not classically similar to his cardiac chest pain but he took nitroglycerin just the same. The patient appears to have abnormal lung sounds and possible pneumonia on chest x-ray. His white blood cell count was elevated as well. I do feel that his history and physical exam at this point are more consistent with bronchitis or even clinical pneumonia. His EKG does not show any acute changes from previous and his troponin was negative. I discussed the patient's laboratory and radiographic studies with him. He was encouraged to rest and avoid any strenuous activity. He was also encouraged to call his primary care physician to schedule a follow-up of point. He was also encouraged to return to the emergency department immediately if symptoms change worsen or the need arises. Medication Reconcilliation Current Medication List: was personally reviewed by me Blood Pressure Screening Patient's blood pressure: Elevated blood pressure Blood pressure disposition: Elevated BP felt to be situational Impression Primary Impression: Chest pain Additional Impression: Bronchitis Scribe Attestation The scribe's documentation has been prepared under my direction and personally reviewed by me in its entirety. I confirm that the note above accurately reflects all work, treatment, procedures, and medical decision making performed by me. Departure Information Dispostion Home / Self-Care Prescriptions Amoxicillin & Pot Clavulanate (Augmentin 875-125 mg) 1 Tab Tab 1 TAB PO BID, #14 TAB Prov: Dong Doss, DO 05/29/17 Referrals Ron Mortensen D.O. (PCP) Patient Instructions Bronchitis Acute, ED Chest Pain Atypical [place], [facility] Additional Instructions Call your family doctor in the morning to schedule a follow-up appointment. Rest and avoid any strenuous activity. Continue all medications as prescribed. Return to the emergency department immediately if symptoms change worsen or the need arises. Problem Qualifiers Primary Impression: Chest pain Chest pain type: unspecified Qualified Codes: R07.9 - Chest pain, unspecified
[2017-05-29 19:58] VITALS: TEMP 36.9; Ht 185.4 cm; Wt 109.8 kg
--- NOTE | 2017-05-29 20:13 | DIAGNOSTIC IMAGING REPORT ---
CHEST ONE VIEW PORTABLE CLINICAL HISTORY: Respiratory distress. Dyspnea. COMPARISON STUDY: Chest radiograph April 22, 2017. FINDINGS: Lung volumes are normal. Blunting of the left costophrenic angle is chronic. Cardiomediastinal silhouette is stable. There is no evidence of pulmonary edema. Mild bibasilar opacities favor atelectasis. IMPRESSION: Mild bibasilar opacities. Left basilar opacity reflects atelectasis while right basilar opacity favors atelectasis although pneumonia could appear similar. Electronically signed by: Supa Bassett M.D. 05/29/2017 8:12 PM Dictated Date/Time: 05/29/2017 8:09 PM
[2017-05-29 20:28] LABS: BASO % 0.1 %; BASO ABS # 0.02 K/uL (0-0.2); COMPLETE YES; EOS % 0.5 %; HEMATOCRIT 39.1 % (42-52); IG% 0.3 %; LYMPH % 5.6 %; LYMPH ABS # 0.86 K/uL (1.2-3.4); MEAN CELL VOLUME 87.9 fL (80-100); MEAN CORPUSCULAR HEMOGLOBIN 28.5 pg (25-34); MEAN CORPUSCULAR HGB CONC 32.5 g/dl (32-36); MEAN PLATELET VOLUME 9.9 fL (7.4-10.4); MONO % 4.5 %; PLATELET COUNT 195 K/uL (130-400); RED BLOOD COUNT 4.45 M/uL (4.7-6.1); WHITE BLOOD COUNT 15.45 K/uL (4.8-10.8)
[2017-05-29 20:48] LABS: PROTHROMBIN TIME (PATIENT) 42.5 SECONDS (9.0-12.0)
[2017-05-29 20:52] LABS: INR 3.8 (0.9-1.1)
[2017-05-29 20:55] LABS: ALB/GLOB RATIO 0.6 (0.9-2); ALKALINE PHOSPHATASE 90 U/L (45-117); ALT/SGPT 14 U/L (12-78); AST/SGOT 19 U/L (15-37); BLOOD UREA NITROGEN 14 mg/dl (7-18); BUN/CREATININE RATIO 10.7 (10-20); CALCIUM 9.1 mg/dl (8.5-10.1); CARBON DIOXIDE 26 mmol/L (21-32); CHLORIDE 97 mmol/L (98-107); CREATININE 1.31 mg/dl (0.60-1.40); GLUCOSE 186 mg/dl (70-99); POTASSIUM 4.2 mmol/L (3.5-5.1); SODIUM 134 mmol/L (136-145)
[2017-05-29] MEDS ORDERED: AMOXICILLIN/CLAVULANATE TAB 875 MG TAB PO ONE (21:00)
[2017-05-29] MEDS ORDERED: AMOXICIL/CLAVU 875MG HOME PACK PO ONE (21:00)
[2017-05-29] MEDS ORDERED: AMOX875T PO (21:11)
[2017-05-29 21:30] VITALS: BP 114/59; PULSE 86; O2SAT 94
== END 2017-05-29 21:54 | disposition home or self-care (01) ==
LOC: EDBD 19:41 → C.EDC 19:43
DX: R07.9 Chest pain, unspecified (principal); J40 Bronchitis, not specified as acute or chronic; I12.9 Hypertensive chronic kidney disease with stage 1 through stage 4 chronic kidney disease, or unspecified chronic kidney disease; N18.3 Chronic kidney disease, stage 3 (moderate); E11.42 Type 2 diabetes mellitus with diabetic polyneuropathy; I50.20 Unspecified systolic (congestive) heart failure; E78.5 Hyperlipidemia, unspecified; I25.10 Atherosclerotic heart disease of native coronary artery without angina pectoris; J44.9 Chronic obstructive pulmonary disease, unspecified; J45.909 Unspecified asthma, uncomplicated; Z86.73 Personal history of transient ischemic attack (TIA), and cerebral infarction without residual deficits; Z86.711 Personal history of pulmonary embolism; Z86.718 Personal history of other venous thrombosis and embolism; Z90.49 Acquired absence of other specified parts of digestive tract; Z98.890 Other specified postprocedural states; Z87.891 Personal history of nicotine dependence; Z79.4 Long term (current) use of insulin; Z79.01 Long term (current) use of anticoagulants; Z79.899 Other long term (current) drug therapy; Z88.8 Allergy status to other drugs, medicaments and biological substances; Z91.018 Allergy to other foods; Z83.3 Family history of diabetes mellitus; Z82.49 Family history of ischemic heart disease and other diseases of the circulatory system

== ENCOUNTER 2017-09-06 09:49 | Inpatient (IN) | payer OTHER, MEDICARE ==
[~2017-09-06] VITALS: Ht 185.4 cm; Wt 106.4 kg
[~2017-09-06 09:49] MED LIST changes: +RANI150T85 PO; -ZNTT/150 PO
[2017-09-06] MEDS ORDERED: SODIUM CHLORIDE 0.9% 1000ML 1,000 ML IV STA (10:35)
[2017-09-06] MEDS ORDERED: ONDANSETRON INJ 2 MG/ML 2 ML VIAL IV STA (10:35)
[2017-09-06 10:55] LABS: BASO % 0.2 %; BASO ABS # 0.02 K/uL (0-0.2); EOS % 0.3 %; EOS ABS # 0.04 K/uL (0-0.5); HEMATOCRIT 40.9 % (42-52); HEMOGLOBIN 13.2 g/dL (14.0-18.0); IG# 0.03 K/uL (0.00-0.02); LYMPH % 6.9 %; LYMPH ABS # 0.79 K/uL (1.2-3.4); MEAN CELL VOLUME 87.2 fL (80-100); MEAN CORPUSCULAR HEMOGLOBIN 28.1 pg (25-34); MEAN CORPUSCULAR HGB CONC 32.3 g/dl (32-36); MEAN PLATELET VOLUME 9.9 fL (7.4-10.4); MONO % 5.2 %; NEUT % 87.1 %; PLATELET COUNT 207 K/uL (130-400); RED CELL DISTRIBUTION WIDTH CV 15.2 % (11.5-14.5); RED CELL DISTRIBUTION WIDTH SD 48.8 fL (36.4-46.3); WHITE BLOOD COUNT 11.48 K/uL (4.8-10.8)
--- NOTE | 2017-09-06 10:58 | DIAGNOSTIC IMAGING REPORT ---
CHEST ONE VIEW PORTABLE CLINICAL HISTORY: Weakness COMPARISON STUDY: May 2017 FINDINGS: The heart is enlarged. There is slight progression the course by basilar airspace opacities. These been present on prior studies. The upper lung zones appear clear. There is no overt failure.[ IMPRESSION: Slight progression of the chronic bibasilar interstitial opacities Electronically signed by: Dillon Gaspar M.D. 09/06/2017 10:57 AM Dictated Date/Time: 09/06/2017 10:55 AM
[2017-09-06 11:02] LABS: INR 1.8 (0.9-1.1); PTT PATIENT 33.6 SECONDS (21.0-31.0)
[2017-09-06 11:03] LABS: ALBUMIN 3.3 gm/dl (3.4-5.0); ALT/SGPT 17 U/L (12-78); AST/SGOT 21 U/L (15-37); BLOOD UREA NITROGEN 14 mg/dl (7-18); CALCIUM 8.9 mg/dl (8.5-10.1); CARBON DIOXIDE 29 mmol/L (21-32); CREATININE 1.29 mg/dl (0.60-1.40); GLUCOSE 153 mg/dl (70-99); LIPASE 44 U/L (73-393); POTASSIUM 3.8 mmol/L (3.5-5.1); SODIUM 133 mmol/L (136-145)
[2017-09-06 11:14] LABS: ALKALINE PHOSPHATASE 94 U/L (45-117); TOTAL PROTEIN 8.4 gm/dl (6.4-8.2)
[2017-09-06] MEDS ORDERED: INSDGI SC (11:18)
[2017-09-06] MEDS ORDERED: NVLG (11:18)
[2017-09-06] MEDS ORDERED: LSX20 PO (11:19)
[2017-09-06] MEDS ORDERED: DILTIAZEM BOLUS / DRIP IV STA ×2 (12:29→14:58)
[2017-09-06] MEDS ORDERED: DILTIAZEM HCL INJ 125 MG in DEXTROSE 5% 100ML IV PRN ×2 (12:45→15:30)
[2017-09-06] MEDS ORDERED: DILTIAZEM BOLUS FROM BAG IV ONE (12:45)
[2017-09-06] MEDS ORDERED: NITROGLYCERIN 0.4 MG SL PER TAB CHARGE SL PRN (13:45)
[2017-09-06] MEDS ORDERED: ACETAMINOPHEN 325 MG TAB PO PRN (13:45)
[2017-09-06] MEDS ORDERED: POLYETHYLENE (MIRALAX) 17 GM PACK PO PRN (13:45)
[2017-09-06] MEDS ORDERED: GLUCOSE 10 TABS/TUBE PO PRN (14:15)
[2017-09-06] MEDS ORDERED: GLUCAGON FOR INJ 1 MG VIAL SQ PRN (14:15)
[2017-09-06] MEDS ORDERED: DEXTROSE 50% 50 ML SYR IV PRN (14:15)
[2017-09-06] MEDS ORDERED: GLUCOSE 40% GEL 15 GM TUBE PO PRN (14:15)
[2017-09-06] MEDS ORDERED: HYDR5SYP11 PO (14:30)
[2017-09-06] MEDS ORDERED: OXYCODONE/ACETAMINOPHEN 5-325 TAB PO PRN (14:30)
[2017-09-06] MEDS ORDERED: OXYC-57 PO (14:30)
[2017-09-06 14:32] VITALS: O2SAT 97; BMI 31.8
--- NOTE | 2017-09-06 14:40 | Pharmacy Progress Note ---
Glycemic Control Intl Consult Date of Service Sep 06, 2017. Scope Glycemic Pharmacist consulted by Taye Zuluaga PAC on 09/06/17 for glycemic control and to write orders per [facility] inpatient glycemic control protocol Objective Weight (Kilograms): 109.30 Accuchecks BSG (last 24hrs): Test 09/06/17 10:10 Random Glucose 153 mg/dl (70-99) Laboratory Data (last 24hrs) Test 09/06/17 10:10 Anion Gap 9.0 mmol/L BUN/Creatinine Ratio 11.2 Blood Urea Nitrogen 14 mg/dl Creatinine 1.29 mg/dl Potassium Level 3.8 mmol/L Sodium Level 133 mmol/L White Blood Count 11.48 K/uL Red Blood Count 4.69 M/uL Hemoglobin 13.2 g/dL Hematocrit 40.9 % Mean Corpuscular Volume 87.2 fL Mean Corpuscular Hemoglobin 28.1 pg Mean Corpuscular Hemoglobin Concent 32.3 g/dl Platelet Count 207 K/uL Mean Platelet Volume 9.9 fL Neutrophils (%) (Auto) 87.1 % Lymphocytes (%) (Auto) 6.9 % Monocytes (%) (Auto) 5.2 % Eosinophils (%) (Auto) 0.3 % Basophils (%) (Auto) 0.2 % Neutrophils # (Auto) 10.00 K/uL Lymphocytes # (Auto) 0.79 K/uL Monocytes # (Auto) 0.60 K/uL Eosinophils # (Auto) 0.04 K/uL Basophils # (Auto) 0.02 K/uL Recent Pertinent Medications Outpatient Anti-diabetic Regimen: * Lantus 30 units SQ Q HS * Novolog SQ per sliding scale * A1c = ? % The patient is currently receiving: * Basal insulin: Lantus 15 units every 12 hours * Correctional Insulin: Novolog Correction per scale ACHS Goal Range: Low 120 mg/dL - High 160 mg/dL Correction Factor: 20 mg/dL/unit * Prandial insulin: Per carb ratio of 1 unit per 7 grams CHO consumed Assessment & Plan ASSESSMENT: 09/06/17 * Type 2 diabetic admitted today for episode of NV, diaphoresis, found to have A fib/flutter with RVR * Pt had reported that his BSG had been low earlier in the day * Glu on initial labs 153 * Given recent report of hypoglycemic episode I agree with splitting his home Lantus dose BID to allow for ease of titration * Will add a scale to the Lantus order as a precaution * The current CF and CR are also reasonable starting points. Will lessen the CR just a little given recent report of a low BSG PLAN FOR INPATIENT GLYCEMIC CONTROL: * Continuing Lantus 15 units SQ BID; however give only 7 units if BSG less than 120 * Continuing correction factor 20 mg/dl/unit * Changing carb ratio to 1 unit per 8 grams CHO consumed * Continuing goal range of Low 120 mg/dL - High 160 mg/dL * Please note that the plan above was derived based on current level of insulin resistance and hospital stress. These recommendations are appropriate for inpatient admission only. Plan of care upon discharge will need to be reassessed to avoid potential outpatient hypo/hyperglycemia. Thank you.
[2017-09-06] MEDS ORDERED: PHARMACY GLYCEMIC MGMT CONSULT SCH (14:43)
[2017-09-06] MEDS ORDERED: HEPARIN 25000 UNIT/500 ML D5W ONE (15:09)
[2017-09-06] MEDS ORDERED: SODIUM CHLORIDE 0.9% 250ML 250 ML IV SCH (15:30)
[2017-09-06 16:20] VITALS: BP 96/59; PULSE 92; TEMP 36.7; O2SAT 94
--- NOTE | 2017-09-06 16:31 | EMERGENCY ROOM VISIT NOTE ---
History Report prepared by Maria Fernanda: Marcellus Moody Under the Supervision of: Dr. Manuel Orocso D.O. First contact with patient: 10:22 Chief Complaint: CARDIAC ASSESSMENT Stated Complaint: CARDIAC ASSESSMENT Nursing Triage Summary: Patient arrives via ems. Patient was at a bank trying to get a loan and he became diaphoretic, N & V. His BSG this am around breakfast was 93, ems checked it on way here and it was 153. PT denies CP, he is always SOB. EMS stated he was A-fib on monitor which is a new finding. The edema to his BLE is normal for him , he takes lasix. He is currently taking a blood thinner for blood clots in his legs. Patient does not wear oxygen, but his pulse ox is always around 88-89%on room air. Wheezing is normal for him too. 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 He has a past medical history of COPD and a previous DVT. Earlier this morning, the patient was at the bank trying to get a loan when he suddenly became diaphoretic and nauseated. He experienced one episode of vomiting and believed his blood sugar to be low so he drank a can of soda. His then called EMS to bring the patient to the hospital. His BSG around breakfast was 93. EMS states that his sugars were 153. He states that he is chronically short of breath with some leg swelling that has not changed recently. Pt denies headache, change in vision, fevers, chest pain, changes to his shortness of breath, abdominal pain, diarrhea , pain with urination, melena, or new leg swelling. He denies any known history of atrial fibrillation or atrial flutter. He is currently on Coumadin. Last level was yesterday at 1.9. He does not normally wear oxygen. 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 A total of 10 systems reviewed and were otherwise negative. Past Medical & Surgical Medical Problems: (1) VIOLETTA inhibitor intolerance (2) Asthma (3) Atrial flutter (4) Benign hypertension (5) Cerebrovascular disease (6) CHF (congestive heart failure) (7) Chronic ischemic heart disease (8) Chronic kidney disease stage 3 (9) Chronic obstructive lung disease (10) Coronary artery disease (11) Deep venous thrombosis of lower extremity (12) Diabetes mellitus type 2 (13) Diabetic peripheral neuropathy associated with type 2 diabetes mellitus (14) Foot deformity (15) GERD (gastroesophageal reflux disease) (16) Gout (17) History of - deep vein thrombosis (18) History of - pulmonary embolus (19) History of diabetic ulcer of foot (20) Hyperlipidemia (21) Loss of sensation (22) Pericardial effusion (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 (24) Systolic heart failure Surgical Problems: (1) H/O toe surgery (2) History of tonsillectomy (3) S/P laparoscopic cholecystectomy Family History Diabetes mellitus Heart disease Social History Smoking Status: Former Smoker Alcohol Use: occasionally Drug Use: none Marital Status: Housing Status: lives with significant other Occupation Status: retired Current/Historical Medications Scheduled Allopurinol (Allopurinol), 300 MG PO DAILY Aspirin (Aspirin), 325 MG PO DAILY Furosemide (Furosemide), 20 MG PO DAILY Insulin Glargine (Lantus), 30 UNITS SC HS Isosorbide Dinitrate (Isordil), 40 MG PO DAILY Montelukast Sodium (Singulair), 10 MG PO QPM Primidone (Mysoline), 250 MG PO HS Ranitidine (Zantac), 150 MG PO BID Rosuvastatin Calcium (Crestor), 40 MG PO HS Warfarin Sod (Jantoven), 2 MG PO [id number] Warfarin Sod (Jantoven), 4 MG PO [id number] Scheduled PRN Hydrocodone W/ Homatropine (Hycodan 5/1.5MG 5 Ml), 5 ML PO HS PRN for Cough Nitroglycerin (Nitrostat), 0.4 MG UT UD PRN for Chest Pain Oxycodone/Acetaminophen 5MG/325MG (Percocet 5MG/325MG), 1 TABLET PO BID PRN for Pain Miscellaneous Medications Insulin Aspart (Novolog) Allergies Coded Allergies: Onion (Verified Allergy, Intermediate, RASH, 09/06/17) Levofloxacin (Verified Allergy, Mild, other, 09/06/17) ' Albuterol (Verified Adverse Reaction, Mild, 0, 09/06/17) cough syncope Ipratropium (Verified Adverse Reaction, Mild, 0, 09/06/17) cough syncope Physical Exam Vital Signs Date Time Temp Pulse Resp B/P (MAP) Pulse Ox O2 Delivery O2 Flow Rate FiO2 09/06/17 16:20 36.7 92 20 96/59 (71) 94 09/06/17 15:46 89 20 93/61 97 09/06/17 15:30 86 18 85/53 Nasal Cannula 09/06/17 14:32 97 Nasal Cannula 2.0 09/06/17 14:11 94 18 93/51 97 Nasal Cannula 2.0 09/06/17 14:06 85 18 95 09/06/17 14:01 83/64 09/06/17 13:51 109/66 09/06/17 13:41 83/52 09/06/17 13:31 101/59 09/06/17 13:30 94 18 101/59 97 Nasal Cannula 2.0 09/06/17 13:29 109/61 09/06/17 13:21 90/50 09/06/17 13:20 103 18 90/50 97 Nasal Cannula 2.0 09/06/17 13:11 84/56 09/06/17 13:06 111 7 96 09/06/17 13:01 111/64 09/06/17 12:31 118/70 09/06/17 12:06 107 16 97 09/06/17 12:01 106 20 97 Nasal Cannula 2.0 125/65 09/06/17 11:49 115 23 97 09/06/17 11:31 128/74 09/06/17 11:01 124/71 09/06/17 10:59 123 20 118/66 95 Nasal Cannula 2.0 09/06/17 10:49 123 10 96 09/06/17 10:31 118/66 09/06/17 10:20 Nasal Cannula 2.0 09/06/17 10:06 98 Nasal Cannula 2.0 09/06/17 10:04 125 09/06/17 09:59 37.0 124 20 122/68 88 Room Air 09/06/17 09:59 88 Room Air 09/06/17 09:59 88 Room Air 09/06/17 09:55 122/68 Physical Exam GENERAL: Sitting up in bed, alert, chronically ill appearing, dyspneic with conversation, well nourished, no distress, non-toxic EYE EXAM: normal conjunctiva. PERRL and EOM's grossly intact. OROPHARYNX: no exudate, no erythema, lips, buccal mucosa, and tongue normal and mucous membranes are moist NECK: supple, no nuchal rigidity, no adenopathy, non-tender, no JVD LUNGS: Diffuse wheezing bilaterally. Normal chest wall mechanics HEART: Tachycardic rate, regular rhythm, no murmurs, S1 normal and S2 normal ABDOMEN: abdomen soft, non-tender, normo-active bowel sounds, no masses, no rebound or guarding. BACK: Back is symmetrical on inspection and there is no deformity, no midline tenderness, no CVA tenderness. SKIN: no rashes and no bruising UPPER EXTREMITIES: upper extremities are grossly normal. LOWER EXTREMITIES: Right calf is larger than the left with some erythema. NEURO EXAM: Normal sensorium, cranial nerves II-XII grossly intact, normal speech, no gross weakness of arms, no gross weakness of legs. Medical Decision & Procedures ER Provider Diagnostic Interpretation: Radiology results as stated below per my review and the radiologist's interpretation: CHEST ONE VIEW PORTABLE CLINICAL HISTORY: Weakness COMPARISON STUDY: May 2017 FINDINGS: The heart is enlarged. There is slight progression the course by basilar airspace opacities. These been present on prior studies. The upper lung zones appear clear. There is no overt failure.[ IMPRESSION: Slight progression of the chronic bibasilar interstitial opacities Electronically signed by: Dillon Gaspar M.D. 09/06/2017 10:57 AM Dictated Date/Time: 09/06/2017 10:55 AM Laboratory Results 09/06/17 10:10 Red Blood Count 4.69, Mean Corpuscular Volume 87.2, Mean Corpuscular Hemoglobin 28.1, Mean Corpuscular Hemoglobin Concent 32.3, Mean Platelet Volume 9.9, Neutrophils (%) (Auto) 87.1, Lymphocytes (%) (Auto) 6.9, Monocytes (%) (Auto) 5.2, Eosinophils (%) (Auto) 0.3, Basophils (%) (Auto) 0.2, Neutrophils # (Auto) 10.00, Lymphocytes # (Auto) 0.79, Monocytes # (Auto) 0.60, Eosinophils # (Auto) 0.04, Basophils # (Auto) 0.02 09/06/17 10:10 Test 09/06/17 10:10 09/06/17 15:35 09/06/17 15:50 09/06/17 16:00 White Blood Count 11.48 K/uL (4.8-10.8) Red Blood Count 4.69 M/uL (4.7-6.1) Hemoglobin 13.2 g/dL (14.0-18.0) Hematocrit 40.9 % (42-52) Mean Corpuscular Volume 87.2 fL (80-100) Mean Corpuscular Hemoglobin 28.1 pg (25-34) Mean Corpuscular Hemoglobin Concent 32.3 g/dl (32-36) Platelet Count 207 K/uL (130-400) Mean Platelet Volume 9.9 fL (7.4-10.4) Neutrophils (%) (Auto) 87.1 % Lymphocytes (%) (Auto) 6.9 % Monocytes (%) (Auto) 5.2 % Eosinophils (%) (Auto) 0.3 % Basophils (%) (Auto) 0.2 % Neutrophils # (Auto) 10.00 K/uL (1.4-6.5) Lymphocytes # (Auto) 0.79 K/uL (1.2-3.4) Monocytes # (Auto) 0.60 K/uL (0.11-0.59) Eosinophils # (Auto) 0.04 K/uL (0-0.5) Basophils # (Auto) 0.02 K/uL (0-0.2) RDW Standard Deviation 48.8 fL (36.4-46.3) RDW Coefficient of Variation 15.2 % (11.5-14.5) Immature Granulocyte % (Auto) 0.3 % Immature Granulocyte # (Auto) 0.03 K/uL (0.00-0.02) Prothrombin Time 18.5 SECONDS (9.0-12.0) Prothromb Time International Ratio 1.8 (0.9-1.1) Activated Partial Thromboplast Time 33.6 SECONDS (21.0-31.0) Partial Thromboplastin Ratio 1.3 Anion Gap 9.0 mmol/L (3-11) Est Creatinine Clear Calc Drug Dose 69.1 ml/min Estimated GFR () 64.7 Estimated GFR (Non- 55.8 BUN/Creatinine Ratio 11.2 (10-20) Calcium Level 8.9 mg/dl (8.5-10.1) Magnesium Level 1.7 mg/dl (1.8-2.4) Total Bilirubin 0.6 mg/dl (0.2-1) Direct Bilirubin 0.2 mg/dl (0-0.2) Aspartate Amino Transf (AST/SGOT) 21 U/L (15-37) Alanine Aminotransferase (ALT/SGPT) 17 U/L (12-78) Alkaline Phosphatase 94 U/L (45-117) Pro-B-Type Natriuretic Peptide 904 pg/ml (0-900) Total Protein 8.4 gm/dl (6.4-8.2) Albumin 3.3 gm/dl (3.4-5.0) Lipase 44 U/L (73-393) Thyroid Stimulating Hormone (TSH) 0.787 uIu/ml (0.300-4.500) Laboratory results per my review. Medications Administered Medications (Trade) Dose Ordered Sig/Kendrick Route Start Time Stop Time Status Last Admin Dose Admin Ondansetron HCl (Zofran Inj) 4 mg NOW STAT IV 09/06/17 10:35 09/06/17 10:37 DC 09/06/17 11:00 4 MG Sodium Chloride 1,000 ml @ 999 mls/hr Q1H1M STAT IV 09/06/17 10:35 09/06/17 11:35 DC 09/06/17 11:01 999 MLS/HR Diltiazem HCl (Cardizem Bolus From Bag) 10 mg ONE ONCE IV 09/06/17 12:45 09/06/17 12:46 DC 09/06/17 12:45 10 MG Diltiazem HCl 125 mg/Dextrose 125 ml @ 0 mls/hr Q0M PRN IV 09/06/17 12:45 09/06/17 16:00 DC 09/06/17 13:04 5 MLS/HR Heparin Sodium/ Dextrose (Heparin 25,000 Unit/500ml D5W) 25,000 unit STK-MED ONCE .ROUTE 09/06/17 15:09 09/06/17 15:10 DC 09/06/17 15:24 25,000 UNIT ECG Per My Interpretation Indication: tachycardia Rate (beats per minute): 123 Rhythm: sinus tachycardia Findings: nonspecific-ST abn (diffuse), Q waves (Inferior), other (normal axis) Comparison ECG Date: 29 May 2017 Change: no significant change (No ST wave change) Change: 2nd ECG: Atrial flutter at 109 with variable block and inferior q-waves. ED Course ED COURSE: Vital signs were reviewed and showed tachycardia and hypoxia The patients medical record was reviewed The above diagnostic studies were performed and reviewed. ED treatments and interventions as stated above. 1022: The patient was evaluated in room B4. A complete history and physical examination was performed. 1035: Ordered Sodium Chloride 1000 ml @ 999 mls/hr IV, Zofran Inj 4 mg IV 1116: The patient is feeling mildly better at this time. 1245: Ordered Diltiazem HCl 125 mg/Dextrose 125 ml @ 0 mls/hr IV, Diltiazem HCl 10 mg IV 1246: Upon reevaluation, the patient is resting.I discussed my findings with the patient and he understands and agrees with the treatment plan. Based on the patients age, coexisting illnesses, exam and lab findings the decision to treat as an inpatient was made. The patient remained stable while under my care. The patient will be evaluated by Katharina Jonas PA-C, for further management. Medical Decision Differential Diagnosis includes but is not limited to dehydration, stroke, anemia, hypoglycemia, hyponatremia, hypernatremia, urinary tract infection, pneumonia, bronchitis, sepsis, gastroenteritis, additional abdominal pathology, metabolic abnormalities and infections. Patient is a 72-year-old male that presents to ER for nausea, weakness and some mild shortness of breath which he denies. Vitals show an atrial flutter with variable block in the 120s. CBC with mild leukocytosis. No anemia. BMP along with LFTs, bilirubin and troponin was unremarkable. TSH and lipase were normal. INR was slightly subtherapeutic at 1.8. There are several repeat EKGs. Patient was given IV Cardizem drip and bolus. He was monitored closely. He was admitted to internal medicine with hypoxia and atrial flutter with variable block with heart rates in the 120s on a Cardizem drip after a bolus of Cardizem. Medication Reconcilliation Current Medication List: was personally reviewed by me Blood Pressure Screening Patient's blood pressure: Normal blood pressure Blood pressure disposition: Did not require urgent referral Consults Time Called: 1240 Consulting Physician: Arely Posadas Hospitalist Returned Call: [phone] I reviewed the patient's case with her. She will evaluate the patient for further management. Impression Primary Impression: Atrial fibrillation with rapid ventricular response Critical Care I have personally spent 35 minutes of critical care time in the direct management of this patient. This includes bedside care, interpretation of diagnostic studies, and testing, discussion with consultants, patient, and family members, and other required patient management activities. This 35 minutes is in excess of all separately billable procedures. Scribe Attestation The scribe's documentation has been prepared under my direction and personally reviewed by me in its entirety. I confirm that the note above accurately reflects all work, treatment, procedures, and medical decision making performed by me. Departure Information Dispostion Being Evaluated By Hospitalist Referrals Ron Mortensen D.O. (PCP) Patient Instructions [facility]
[2017-09-06 16:37] LABS: INFLUENZA A PCR Neg for Influ A (NEG); INFLUENZA B PCR Neg for Influ B (NEG)
[2017-09-06] MEDS ORDERED: SODIUM CHLORIDE 0.9% 1000ML 1,000 ML IV SCH (17:00)
[2017-09-06] MEDS: MAGNESIUM SULFATE 1GM / D5W 1 GM in PREMIXED IN D5W 100 ML IV SCH ×2 (17:36→18:41)
[2017-09-06] MEDS: INSULIN ASPART 100 UNITS/ML 3 ML PEN SC SCH ×2 (17:51→21:27)
[2017-09-06] MEDS: WARFARIN SOD 4 MG TAB PO SCH (18:42)
--- NOTE | 2017-09-06 19:37 | History and Physical ---
History & Physical Date & Time of Service: Sep 06, 2017 at 14:27 Chief Complaint: Cardiac Assessment Primary Care Physician: Ron Mortensen D.O. 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 Pt states this morning FBS was 93. He never eats breakfast. States was getting dressed to go to the [facility] today and he coughed and after coughing became nauseated, diaphoretic and "didn't feel right ". He thought maybe his blood sugar dropped so he drank a can of soda. Didn't recheck BS. He went to [facility] and when there had another episode of nausea, diaphoresis and vomited x 1. EMS was called at that time and BS reported 153 and pt noted to be in a-flutter. He has no hx a-flutter. Pt denies any CP, palpitations, syncope, vision changes or KOO. Pt with hx COPD and reports chronic cough and denies any increased cough or production. Chronic SOB and denies any worsening. Denies hemoptysis. Pt cannot tolerate inhalers/nebs as makes him pass out. Uses Hycodan HS intermittently for cough. Not on home oxygen. He states has chronic tickle to throat that is no worse/better. Denies choking or dysphagia. Denies rhinorrhea, fever or chills. He has been around others in building with cough and cold symptoms. Chronic RLE edema with hx PE that worsens throughout day and edema decreased by morning after supine. Denies any increased edema or pain, erythema. Reports his INR has been high and has been having Coumadin adjusted by Coumadin clinic. Yesterday INR: 1.9. Hx neuropathy, uses Percocet intermittently. Denies fever, diarrhea, rashes, urinary symptoms. In ER a-flutter in 120's. Given Cardizem 10mg and started on Cardizem drip, at 5ml/hr. 1L NSS. Negative troponin. 88% on RA up to 97% on 2L NC. CXR: slight progression chronic bibasilar intersitial opacities. WBC: 11.4. glucose: 153, BNP: 904, TSH: 0.7, INR: 1.8 Past Medical/Surgical History Medical Problems: (1) VIOLETTA inhibitor intolerance Status: Chronic (2) Asthma Status: Chronic (3) Benign hypertension Status: Chronic (4) Cerebrovascular disease Permanent Comment: history of right caudate stroke Status: Chronic (5) CHF (congestive heart failure) Status: Chronic (6) Chronic ischemic heart disease Status: Chronic (7) Chronic kidney disease stage 3 Status: Chronic (8) Chronic obstructive lung disease Status: Chronic (9) Coronary artery disease Permanent Comment: s/p inferior VA Status: Chronic (10) Deep venous thrombosis of lower extremity Status: Resolved (11) Diabetes mellitus type 2 Status: Chronic (12) GERD (gastroesophageal reflux disease) Status: Chronic (13) Gout Status: Chronic (14) History of - deep vein thrombosis Status: Resolved (15) History of - pulmonary embolus Status: Resolved (16) Hyperlipidemia Status: Chronic (17) Pericardial effusion Status: Resolved (18) Systolic heart failure Permanent Comment: LVEF 45-50% by echo 07/07/10 Status: Chronic Surgical Problems: (1) H/O toe surgery Permanent Comment: amputation left 3rd and 4th toe 03/2012 Status: Resolved (2) History of tonsillectomy Status: Resolved (3) S/P laparoscopic cholecystectomy Permanent Comment: Dr. Tang 12/2014 Status: Resolved Family History Diabetes mellitus Heart disease Social History Smoking Status: Former Smoker Alcohol Use: occasionally Drug Use: none Marital Status: Occupational Status: retired Immunizations History of Influenza Vaccine: Yes Influenza Vaccine Date: May 08, 2012 History of Tetanus Vaccine?: unknown Tetanus Immunization Date: December 01, 2008 History of Pneumococcal: Yes Pneumococcal Date: Oct 03, 2003 History of Hepatitis B Vaccine: Unknown Multi-Drug Resistant Organisms History of MDRO: Yes Type of MDRO: MRSA Allergies Coded Allergies: Onion (Verified Allergy, Intermediate, RASH, 09/06/17) Levofloxacin (Verified Allergy, Mild, other, 09/06/17) ' Albuterol (Verified Adverse Reaction, Mild, 0, 09/06/17) cough syncope Ipratropium (Verified Adverse Reaction, Mild, 0, 09/06/17) cough syncope Home Medications Scheduled Allopurinol (Allopurinol), 300 MG PO DAILY Aspirin (Aspirin), 325 MG PO DAILY Furosemide (Furosemide), 20 MG PO DAILY Insulin Glargine (Lantus), 30 UNITS SC HS Isosorbide Dinitrate (Isordil), 40 MG PO DAILY Montelukast Sodium (Singulair), 10 MG PO QPM Primidone (Mysoline), 250 MG PO HS Ranitidine (Zantac), 150 MG PO BID Rosuvastatin Calcium (Crestor), 40 MG PO HS Warfarin Sod (Jantoven), 2 MG PO 2XWK Warfarin Sod (Jantoven), 4 MG PO 5XWK Scheduled PRN Hydrocodone W/ Homatropine (Hycodan 5/1.5MG 5 Ml), 5 ML PO HS PRN for Cough Nitroglycerin (Nitrostat), 0.4 MG UT UD PRN for Chest Pain Oxycodone/Acetaminophen 5MG/325MG (Percocet 5MG/325MG), 1 TABLET PO BID PRN for Pain Miscellaneous Medications Insulin Aspart (Novolog) Review of Systems See HPI for pertinent positives & negatives. All other systems reviewed and were otherwise negative Physical Exam Vital Signs Date Time Temp Pulse Resp B/P (MAP) Pulse Ox O2 Delivery O2 Flow Rate FiO2 09/06/17 14:11 94 18 93/51 97 Nasal Cannula 2.0 09/06/17 14:06 85 18 95 09/06/17 14:01 83/64 09/06/17 13:51 109/66 09/06/17 13:41 83/52 09/06/17 13:31 101/59 09/06/17 13:30 94 18 101/59 97 Nasal Cannula 2.0 09/06/17 13:29 109/61 09/06/17 13:21 90/50 09/06/17 13:20 103 18 90/50 97 Nasal Cannula 2.0 09/06/17 13:11 84/56 09/06/17 13:06 111 7 96 09/06/17 13:01 111/64 09/06/17 12:31 118/70 09/06/17 12:06 107 16 97 09/06/17 12:01 106 20 97 Nasal Cannula 2.0 125/65 09/06/17 11:49 115 23 97 09/06/17 11:31 128/74 09/06/17 11:01 124/71 09/06/17 10:59 123 20 118/66 95 Nasal Cannula 2.0 09/06/17 10:49 123 10 96 09/06/17 10:31 118/66 09/06/17 10:20 Nasal Cannula 2.0 09/06/17 10:06 98 Nasal Cannula 2.0 09/06/17 10:04 125 09/06/17 09:59 37.0 124 20 122/68 88 Room Air 09/06/17 09:59 88 Room Air 09/06/17 09:59 88 Room Air 09/06/17 09:55 122/68 General Appearance: WD/WN, no apparent distress Head: normocephalic, atraumatic Eyes: normal inspection, PERRL, EOMI, sclerae normal ENT: hearing grossly normal, pharynx normal, + pertinent finding (slightly dry mucous membranes) Neck: supple, trachea midline Respiratory/Chest: chest non-tender, no respiratory distress, no accessory muscle use, + decreased breath sounds, + rhonchi, + wheezing Cardiovascular: no murmur, + irregularly irregular Abdomen/GI: normal bowel sounds, non tender, soft Back: no CVA tenderness Extremities/Musculoskelatal: normal capillary refill (RLE with edema, mild tenderness to palpation posterior R calf. +amputation L 3&4 toes. sensation to light touch intact) Skin: normal color, warm/dry Diagnostics Laboratory Results Results Past 24 Hours Test 09/06/17 10:10 Range/Units White Blood Count 11.48 4.8-10.8 K/uL Red Blood Count 4.69 4.7-6.1 M/uL Hemoglobin 13.2 14.0-18.0 g/dL Hematocrit 40.9 42-52 % Mean Corpuscular Volume 87.2 80-100 fL Mean Corpuscular Hemoglobin 28.1 25-34 pg Mean Corpuscular Hemoglobin Concent 32.3 32-36 g/dl Platelet Count 207 130-400 K/uL Mean Platelet Volume 9.9 7.4-10.4 fL Neutrophils (%) (Auto) 87.1 % Lymphocytes (%) (Auto) 6.9 % Monocytes (%) (Auto) 5.2 % Eosinophils (%) (Auto) 0.3 % Basophils (%) (Auto) 0.2 % Neutrophils # (Auto) 10.00 1.4-6.5 K/uL Lymphocytes # (Auto) 0.79 1.2-3.4 K/uL Monocytes # (Auto) 0.60 0.11-0.59 K/uL Eosinophils # (Auto) 0.04 0-0.5 K/uL Basophils # (Auto) 0.02 0-0.2 K/uL RDW Standard Deviation 48.8 36.4-46.3 fL RDW Coefficient of Variation 15.2 11.5-14.5 % Immature Granulocyte % (Auto) 0.3 % Immature Granulocyte # (Auto) 0.03 0.00-0.02 K/uL Prothrombin Time 18.5 9.0-12.0 SECONDS Prothromb Time International Ratio 1.8 0.9-1.1 Activated Partial Thromboplast Time 33.6 21.0-31.0 SECONDS Partial Thromboplastin Ratio 1.3 Sodium Level 133 136-145 mmol/L Potassium Level 3.8 3.5-5.1 mmol/L Chloride Level 95 98-107 mmol/L Carbon Dioxide Level 29 21-32 mmol/L Anion Gap 9.0 3-11 mmol/L Blood Urea Nitrogen 14 7-18 mg/dl Creatinine 1.29 0.60-1.40 mg/dl Est Creatinine Clear Calc Drug Dose 69.1 ml/min Estimated GFR () 64.7 Estimated GFR (Non- 55.8 BUN/Creatinine Ratio 11.2 10-20 Random Glucose 153 70-99 mg/dl Calcium Level 8.9 8.5-10.1 mg/dl Magnesium Level 1.7 1.8-2.4 mg/dl Total Bilirubin 0.6 0.2-1 mg/dl Direct Bilirubin 0.2 0-0.2 mg/dl Aspartate Amino Transf (AST/SGOT) 21 15-37 U/L Alanine Aminotransferase (ALT/SGPT) 17 12-78 U/L Alkaline Phosphatase 94 45-117 U/L Troponin I < 0.015 0-0.045 ng/ml Pro-B-Type Natriuretic Peptide 904 0-900 pg/ml Total Protein 8.4 6.4-8.2 gm/dl Albumin 3.3 3.4-5.0 gm/dl Lipase 44 73-393 U/L Thyroid Stimulating Hormone (TSH) 0.787 0.300-4.500 uIu/ml Diagnostic Radiology CXR: FINDINGS: The heart is enlarged. There is slight progression the course by basilar airspace opacities. These been present on prior studies. The upper lung zones appear clear. There is no overt failure EKG EKG: a-flutter, rate 123 Impression Assessment and Plan A-FLUTTER pt with onset of nausea, diaphoresis and emesis x 1 today. No CP. Pt new onset a -flutter rate 120's. Negative initial troponin. TSH: 0.7. Given 1L NSS, cardizem 10mg and then cardizem drip at 5mg/hr. Rate in 80-90's. SBP dropped to 90's. 250ml NSS bolus given and IVF at 75ml/hr -trend troponin -cardizem drip with holding parameters -cardiology consult, appreciate input and further recommendation for rate control -echo -heparin IV CAD s/p VA, CARDIOMYOPATHY EF 45-49% on echo in 2013. No CP, negative initial troponin -continue ASA, isosorbide, statin HYPOMAGNESIA Magnesium: 1.7 -replace and monitor HYPONATREMIA Na 135 corrected -continue to monitor SUBTHERAPUETIC INR. ON COUMADIN FOR CHRONIC DVT/PE INR: 1.8. Denies any worsening extremity edema. No active bleeding -heparin drip -coumadin 4mg tonight -repeat INR COPD Denies increased SOB or cough. Afebrile. No infiltrate on CXR. Pt does not tolerate albuterol or nebs -continue singulair -continue hycodan HS prn cough -continue to monitor DM II HA1c 8.9 on 04/02 -Novolog sliding scale, continue lantus divided BID, 15U bid -HA1c in am -hx neuropathy, continue oxycodone prn pain CKD III Cr: 1.29, Was 1.1 on 03/02 -continue to monitor renal function -avoid nephrotoxic agents when possible GOUT -continue allopurinol GERD -continue PPI DVT Prophylaxis -coumadin Disposition admit tele Full Code as per discussion with pt Follows with Dr Mortensen for routine care Pt was seen with Dr Galindo. See addendum ATTENDING ADDENDUM ; pt seen and examined care co -ordinated with Arely Steiner PA-C 72 yo M with complex cardiac hx presented with sudden onset of dizzy spell , diaphoresis on arrival to ER found to be Aflutter with rapid ventricular response given IV Cardizem gtt, was discontinued as pt became hypotension and HR improved to 90's appreciate eval from cardiology started on Beta isaías pt already been on Coumadin for past hx of DVT /PE IV heparin bridge for INR 1.8 can be d/sacha as INR ~2 cardiac work up : resting ECHO serial cardiac markers ordered Columba Galindo MD Level of Care Telemetry Resuscitation Status FULL RESUSCITATION VTE Prophylaxis VTE Risk Assessment Done? Y/N: Yes Risk Level: High Given or contraindicated: Other Anticoagulation Additional Copies To Ron Mortensen D.O.
--- NOTE | 2017-09-06 19:55 | CARDIOLOGY CONSULTATION ---
DATE OF CONSULTATION: 09/06/2017 REFERRING PHYSICIAN: Dr. Renaldo Cuenca. INDICATIONS: Atrial fibrillation flutter. HISTORY OF PRESENT ILLNESS: The patient is a 72-year-old male with complex history which includes: 1. Atherosclerotic coronary artery disease with prior inferior myocardial infarction with diffuse multivessel coronary disease but cardiac catheterization not amenable to intervention. 2. History of ischemic cardiomyopathy, EF 45% by past records. 3. Hyperlipidemia. 4. Chronic renal insufficiency. 5. Chronic peripheral vascular disease. 6. Chronic obstructive lung disease with marginal hypoxia chronically, history of past vasovagal syncope. The patient presents today to the Emergency Room, notes was applying for a loan in the loan office when he suddenly became acutely diaphoretic and lightheaded. summoned paramedics and he was brought to the Emergency Room and was found to be in atrial fibrillation flutter with rapid ventricular response, rate 150s. He was given a single dose of IV diltiazem which improved heart rate though patient became hypotensive. Medication was discontinued and patient referred for inpatient management. Underlying medical problems include in addition to above, history of past DVT, PE, past history of stroke, on chronic anticoagulation with warfarin. The patient notes no prior history of tachypalpitations. Notes no dizziness or lightheadedness. Generally he has been feeling well. Initially the patient felt the symptoms are due to low blood sugar, now is comfortable on exam in the telemetry floor. Notes he has been taking medications. INR have been slightly subtherapeutic recently but notes no bleeding difficulties. Notes to have a chronic cough which is being going around. Notes no melena, hematochezia, dysuria or hematuria. ALLERGIES: ALBUTEROL, LEVOFLOXACIN. MEDICATIONS: Prior to hospitalization per medication reconciliation list and review of outpatient records are notable for allopurinol 300 mg p.o. daily, aspirin 325 mg p.o. daily, furosemide 20 mg p.o. daily, hydrocodone, insulin aspartame and glargine, isosorbide dinitrate 40 mg daily, Singulair 10 mg p.o. day, primidone 250 mg at bedtime, oxycodone p.r.n. pain, ranitidine 150 mg b.i.d., Crestor 40 mg at bedtime, warfarin 2 mg Wednesdays and Saturdays, 4 mg all other days. PAST SURGICAL HISTORY: Notable for prior amputation of left 3rd and 4th toes in 2011, past mediastinoscopy with biopsy and drainage of pericardial effusion in 2004, past tonsillectomy and cholecystectomy. FAMILY HISTORY: Positive for heart disease. SOCIAL HISTORY: The patient is a heavy prior smoker but discontinued in the 70s. He is retired and uses very rare alcoholic beverage. He is modestly active about his home. PHYSICAL EXAMINATION: VITAL SIGNS: Heart rate is currently 100, blood pressure is 96/59. HEENT: Normocephalic and atraumatic. Nares without discharge. Throat was clear. NECK: Supple without distinct jugular venous distension with heavy duarte present. LUNGS: Reveal coarse rhonchorous sounds bibasilar. CARDIOVASCULAR: Irregularly irregular. There is no S3 gallop. ABDOMEN: Soft, nontender. EXTREMITIES: Without cyanosis or clubbing. There is about 2+ lower extremity edema to the knees with dependent rubor changes of the skin. LABORATORY DATA: White cell count is 11.4, hemoglobin is 13.2. Sodium is 133, potassium 3.8, chloride is 95, bicarbonate is 29, BUN is 14, creatinine 1.29. INR is 1.8. Influenza screen is negative. TSH is 0.787, albumin level is 3.3. EKG on initial presentation revealed AFib flutter, rate of 123 beats per minute with underlying nonspecific intraventricular conduction delay, possible old inferior infarct. Telemetry currently reveals atrial flutter with variable AV block, rate 109. IMPRESSION: The patient is a 72-year-old male with a history of diffuse and pronounced atherosclerotic coronary disease with stable class 2 angina pectoris per records, history of mild to moderate left ventricular dysfunction diffusely with compensated class 2+ congestive heart failure, today developed acute onset of symptoms of diaphoresis and lightheadedness while under stress in a loan office. He was brought to the Emergency Room where he was found to be in atrial fibrillation flutter with elevated ventricular response rate. Rates have come under control with diltiazem that has resulted in significant hypotension. The patient notes usual heart rates tend to run in the 100-110 range per his home monitor at home. He is now comfortable and is unaware of any tachy palpitations. PLAN: Given poor tolerance of diltiazem and underlying history of ischemic heart disease and ischemic cardiomyopathy, we will initiate low dose beta isaías for rate control. He is already anticoagulated with warfarin, but heparin has been giving mildly suboptimal INR. Echocardiogram will be reviewed and medications adjusted. Exact onset of arrhythmias is uncertain as patient notes heart rates tend to run "fast." Whether this represents chronic AFib flutter versus new onset is uncertain. We will plan anticoagulation and rate control as initial approach. Other medical issues as per primary care service.
[2017-09-06 20:06] VITALS: BP 112/54; PULSE 114; TEMP 37.1; O2SAT 92
[2017-09-06] MEDS ORDERED: METOPROLOL SUCC 25MG EXT REL TAB PO SCH (21:00)
[2017-09-06] MEDS: MONTELUKAST SOD 10 MG TAB PO SCH (21:16)
[2017-09-06] MEDS: ROSUVASTATIN CALCIUM 20 MG TAB PO SCH (21:16)
[2017-09-06] MEDS: PRIMIDONE 250 MG TAB PO SCH (21:16)
[2017-09-06] MEDS: RANITIDINE HCL 150 MG TAB PO SCH (21:17)
[2017-09-06] MEDS: INSULIN GLARGINE SOLOSTAR 100 UNITS/ML 3 ML PEN SC SCH (21:28)
[2017-09-06 21:39] VITALS: BP_SYST 106; BP_SYST 122; BP_SYST 125; BP_DIAS 69; BP_DIAS 76; BP_DIAS 86; PULSE 120; PULSE 121; PULSE 140
[2017-09-07] VITALS (9 sets, daily range): BP systolic 90–117; BP diastolic 50–75; PULSE 82–125; TEMP 36.8–37.4; O2SAT 91–95; Ht 185.4 cm; Wt 106.4 kg
--- NOTE | 2017-09-07 06:20 | Clinical Documentation Query ---
CLINICAL DOCUMENTATION QUERY 72 year old male who present with atrial flutter. H&P and Cardiology consult states patient as having hx of CHF, unspecified. The medical record documentation is now expected to include definitive and explicit description of the patient's heart failure; vague terms such as "heart failure," ventricular dysfunction," and "CHF" may not fully capture the physician's intended level of severity. In your clinical opinion is this patient being managed for: ( x ) Chronic systolic and diastolic CHF ( ) Not Agree ( ) Other explanation of clinical findings (Please Explain) ( ) Unable to determine (Please Define) ( ) Need to Discuss Current echo Left Ventricle * The left ventricle is normal in size. * There is moderate concentric left ventricular hypertrophy. * The basal septum is thickened and angulated consistent with sigmoid septum. * Ejection Fraction = 45-50%. * Left ventricular systolic function is mildly reduced. * There is moderate inferior wall hypokinesis. The medical record reflects the following clinical findings, treatment, and risk factors. Clinical Indicators: hx of CHF. Echo from 05/06/2014 showed LVEF of 45-50% & abnormal diastolic function Treatment: Lasix, I/O's, daily weights Risk Factors: Age, ischemic cardiomyopathy, Echo results. Please clarify and document your clinical opinion in the progress notes and discharge summary. Terms such as "probable", "suspected", "likely", "questionable", "possible", or "still to be ruled out" are acceptable. IF IN AGREEMENT, YOU MUST DOCUMENT ABOVE DIAGNOSTIC STATEMENT IN DAILY PROGRESS NOTES AND DISCHARGE SUMMARY. This document is not part of the patient's record. Thank You, Deni Scott, RN [phone]
[2017-09-07 07:05] LABS: BASO % 0.4 %; BASO ABS # 0.03 K/uL (0-0.2); EOS % 1.6 %; EOS ABS # 0.11 K/uL (0-0.5); HEMATOCRIT 35.9 % (42-52); HEMOGLOBIN 11.5 g/dL (14.0-18.0); IG# 0.01 K/uL (0.00-0.02); LYMPH % 11.3 %; MEAN CELL VOLUME 87.6 fL (80-100); MEAN PLATELET VOLUME 9.8 fL (7.4-10.4); MONO % 10.4 %; MONO ABS # 0.73 K/uL (0.11-0.59); NEUT % 76.2 %; NEUT ABS # 5.37 K/uL (1.4-6.5); PLATELET COUNT 162 K/uL (130-400); RED CELL DISTRIBUTION WIDTH CV 15.2 % (11.5-14.5); RED CELL DISTRIBUTION WIDTH SD 49.1 fL (36.4-46.3); WHITE BLOOD COUNT 7.05 K/uL (4.8-10.8)
[2017-09-07] MEDS: HEPARIN 25,000 UNIT/500ML D5W 500 ML IV PRN ×3 (07:15→19:06)
[2017-09-07 07:17] LABS: HEMOGLOBIN A1C 8.8 % (4.5-5.6)
[2017-09-07 07:32] LABS: INR 1.9 (0.9-1.1)
[2017-09-07 07:42] LABS: CALCIUM 8.2 mg/dl (8.5-10.1); CREATININE 0.97 mg/dl (0.60-1.40)
[2017-09-07 08:00] LABS: PTT PATIENT 128.4 SECONDS (21.0-31.0)
[2017-09-07] MEDS: ASPIRIN 325 MG ECTAB PO SCH (08:01)
[2017-09-07] MEDS: ISOSORBIDE DINITRATE 40 MG TAB PO SCH (08:02)
[2017-09-07] MEDS: FUROSEMIDE 20 MG TAB PO SCH (08:03)
[2017-09-07] MEDS: RANITIDINE HCL 150 MG TAB PO SCH ×2 (08:04→21:27)
[2017-09-07] MEDS: ALLOPURINOL 300 MG TAB PO SCH (08:04)
[2017-09-07] MEDS: INSULIN GLARGINE SOLOSTAR 100 UNITS/ML 3 ML PEN SC SCH ×2 (08:08→21:36)
[2017-09-07] MEDS: INSULIN ASPART 100 UNITS/ML 3 ML PEN SC SCH ×4 (08:16→21:35)
[2017-09-07] MEDS ORDERED: METOPROLOL SUCC 25MG EXT REL TAB PO SCH (09:00)
[2017-09-07] MEDS ORDERED: ISOSORBIDE DINITRATE 40 MG TAB PO SCH (09:00)
[2017-09-07] MEDS ORDERED: SOTALOL HCL 80 MG TAB PO ONE (09:21)
--- NOTE | 2017-09-07 09:32 | Cardiology Follow-Up ---
Subjective Subjective Date of Service: Sep 07, 2017. Pt evaluation today including: conversation w/ patient, physical exam, chart review, lab review, review of studies, review of inpatient medication list Additional Details: Pt seen and examined, states that he's feeling well this AM. Denies cp, sob, palpitations, lightheadedness or dizziness. Tele reviewed: atrial flutter in 120's. Problem List Medical Problems: (1) Aspiration pneumonia Status: Acute (2) Atrial fibrillation with rapid ventricular response Status: Acute (3) Bronchitis Status: Acute (4) Chest pain Status: Acute (5) Hypoxia Status: Acute (6) Hypoxia Status: Acute (7) Pneumonia Status: Acute Review of Systems Respiratory: No see HPI, No cough, No sputum, No wheezing, No shortness of breath, No dyspnea on exertion, No dyspnea at rest, No hemoptysis, No problem reported Cardiac: No see HPI, No chest pain, No orthopnea, No PND, No edema, No claudication, No palpitations, No problem reported Objective Vital Signs Last Vital Signs Documentation Date Time Temp Pulse Resp B/P (MAP) Pulse Ox O2 Delivery O2 Flow Rate FiO2 09/07/17 08:34 Room Air 09/07/17 07:55 37.0 123 12 113/68 (83) 94 09/06/17 14:32 2.0 Physical Exam: General Appearance: WD/WN, no apparent distress Eyes: bilateral eyes normal inspection, bilateral eyes PERRL, bilateral eyes EOMI ENT: normal ENT inspection, hearing grossly normal, pharynx normal Neck: supple, no adenopathy, thyroid normal, no JVD Respiratory/Chest: chest non-tender, lungs clear, normal breath sounds, no respiratory distress, no accessory muscle use Cardiovascular: regular rate, rhythm, no JVD, + tachycardia Abdomen: normal bowel sounds, non tender, soft, no organomegaly Extremities: normal inspection, + pedal edema, + pertinent finding (multiple toe amputations) Neurologic/Psychiatric: sausage tier II-XII nml as tested, no motor/sensory deficits, alert, normal mood/affect, oriented x 3 Skin: normal color, warm/dry, no rash Lymphatic: no adenopathy Assessment and Plan 1. new onset atrial flutter with RVR relatively asymptomatic at rest given underlying severe ischemic CAD do not believe he will tolerate well in the senior care discussed options along with risks/benefits pt agreeable to proceed with sotalol loading and LONDON/CV in AM on chronic coumadin therapy, unfortunately, INR subtherapeutic upon presentation so will require L[place]ON to rule out thrombus cont heparin/coumadin will change metoprolol to tartrate in attempt to rate control until cardioverted continuous tele monitoring and daily EKG monitoring of QT interval 2. CAD unable to intervene stable cont asa 3. hx ckd creat of 1 today will follow and adjust sotalol dose as necessary
--- NOTE | 2017-09-07 10:30 | ECHOCARDIOGRAM REPORT ---
*NOTICE TO RECEIVING [employer] AGENCY This information is strictly Confidential and protected under [place] law. [place] law prohibits you from making any further disclosure of this information unless further disclosure is expressly permitted by the written consent of the person to whom it pertains or is authorized by law. A general authorization for the release of medical or other information is not sufficient for this purpose. Hospital accepts no responsibility if the information is made available to any other person, INCLUDING THE PATIENT. Interpretation Summary * Name: DARREL ETIENNE Study Date: 09/07/2017 07:21 AM BP: 113/68 mmHg * Patient Location: .2E\S\E212\S\1 HR: 120 * : 1945 (M/d/yyyy) Gender: Male Height: 73 in * Age: 72 yrs Ethnicity: CA Weight: 240 lb * Ordering Physician: Arely Zuluaga * Referring Physician: Self, Referred * Performed By: Stephani Bonilla RDCS * * Reason For Study: AFLUTTER * BSA: 2.3 m2 * -- Conclusions -- * Rhythm during examination was atrial flutter. * Normal LV chamber size with mild concentric LVH, sigmoid appearing septum. * Mildly reduced LV systolic function with moderate hypokinesis of the inferior wall, EF 45-50%. * Aortic valve sclerosis mild, without significant aortic valvular stenosis. * Mild mitral regurgitation. * Moderate left atrial enlargement. Procedure Details * A contrast injection of Definity was performed to improve assessment of LV function. * Contrast was injected into an intravenous site in the right arm. * One vial of Definity ultrasound contrast was diluted in normal saline to a total volume of 10 ml. A total of '1' ml of solution was administered during imaging. * Lot # [id number] of Definity utilized for procedure. * Expiration date 1 SEP 04. * The attending nurse who injected the contrast agent was PEARL OCAMPO. Left Ventricle * The left ventricle is normal in size. * There is moderate concentric left ventricular hypertrophy. * The basal septum is thickened and angulated consistent with sigmoid septum. * Ejection Fraction = 45-50%. * Left ventricular systolic function is mildly reduced. * There is moderate inferior wall hypokinesis. Right Ventricle * The right ventricular cavity size is normal (basal dimension <4.2 cm in right ventricular apical 4-chamber view). * The right ventricular systolic function is reduced as assessed by tricuspid annular plane systolic excursion (TAPSE) (TAPSE <1.6 cm). Atria * The left atrium is moderately dilated. * Right atrial size is normal. * No ASD detected; PFO is not assessed. Mitral Valve * The mitral valve leaflets appear thickened, but open well. * There is no mitral valve stenosis. * There is mild mitral regurgitation. Tricuspid Valve * The tricuspid valve is normal in structure and function. Aortic Valve * The aortic valve is trileaflet. * Aortic valve sclerosis mild, without significant aortic valvular stenosis. * There is no significant aortic regurgitation. Pulmonic Valve * The pulmonary valve is not well seen, but the Doppler examination is normal without significant regurgitation or stenosis. Great Vessels * The aortic root is normal size. Pericardium/Pleural * There is no pericardial effusion. MMode 2D Measurements and Calculations IVSd 1.6 cm IVSs 1.5 cm LVIDd 5.2 cm LVIDs 4.0 cm LVPWd 1.3 cm LVPWs 2.1 cm IVS/LVPW 1.2 FS 22.8 % EDV(Teich) 130.1 ml ESV(Teich) 71.0 ml EF(Teich) 45.4 % EDV(cubed) 141.5 ml ESV(cubed) 65.2 ml EF(cubed) 53.9 % % IVS thick -3.92 % % LVPW thick 58.6 % LV mass(C)d 322.4 grams LV mass(C)dI 138.7 grams/m\S\2 LV mass(C)s 311.8 grams LV mass(C)sI 134.1 grams/m\S\2 SV(Teich) 59.1 ml SI(Teich) 25.4 ml/m\S\2 SV(cubed) 76.3 ml SI(cubed) 32.8 ml/m\S\2 Ao root diam 3.3 cm Ao root area 8.7 cm\S\2 LA dimension 4.4 cm LA/Ao 1.3 LVAd ap4 35.1 cm\S\2 LVLd ap4 8.2 cm EDV(MOD-sp4) 124.3 ml EDV(sp4-el) 127.3 ml LVAs ap4 23.0 cm\S\2 LVLs ap4 7.0 cm ESV(MOD-sp4) 64.3 ml ESV(sp4-el) 64.4 ml EF(MOD-sp4) 48.3 % EF(sp4-el) 49.4 % LVAd ap2 21.8 cm\S\2 LVLd ap2 7.4 cm EDV(MOD-sp2) 53.1 ml EDV(sp2-el) 54.7 ml LVAs ap2 13.7 cm\S\2 LVLs ap2 5.9 cm ESV(MOD-sp2) 26.1 ml ESV(sp2-el) 27.3 ml EF(MOD-sp2) 50.8 % EF(sp2-el) 50.1 % LVLd %diff -11.20 % EDV(MOD-bp) 86.8 ml LVLs %diff -18.48 % ESV(MOD-bp) 44.4 ml EF(MOD-bp) 48.8 % SV(MOD-sp4) 60.0 ml SI(MOD-sp4) 25.8 ml/m\S\2 SV(MOD-sp2) 26.9 ml SI(MOD-sp2) 11.6 ml/m\S\2 SV(MOD-bp) 42.4 ml SI(MOD-bp) 18.2 ml/m\S\2 SV(sp4-el) 62.9 ml SI(sp4-el) 27.1 ml/m\S\2 SV(sp2-el) 27.4 ml SI(sp2-el) 11.8 ml/m\S\2 Doppler Measurements and Calculations Ao V2 max 114.3 cm/sec Ao max PG 5.2 mmHg Ao max PG (full) 4.0 mmHg LV V1 max PG 1.2 mmHg LV V1 max 55.1 cm/sec TR max kat 222.3 cm/sec
--- NOTE | 2017-09-07 13:51 | Pharmacy Progress Note ---
Glycemic Control Progress Note Date of Service Sep 07, 2017. Scope Glycemic Pharmacist consulted for glycemic control to write orders per [facility] inpatient glycemic control protocol. Objective Accuchecks BSG (last 24hrs): Test 09/06/17 16:39 09/06/17 20:57 09/07/17 06:53 09/07/17 10:33 Bedside Glucose 147 mg/dl (70-99) 198 mg/dl (70-99) 135 mg/dl (70-99) Random Glucose 151 mg/dl (70-99) HbA1c: Test 09/07/17 06:53 Hemoglobin A1c 8.8 % (4.5-5.6) H Recent Pertinent Medications Outpatient Anti-diabetic Regimen: * Lantus 30 units SQ Q HS * Novolog SQ per sliding scale * A1c = 8.8 % 09/07/17 The patient is currently receiving: * Basal insulin: Lantus every 12 hours: 7 units if BSG less than 120, 15 units if BSG 120 or greater * Correctional Insulin: Novolog Correction per scale ACHS Goal Range: Low 120 mg/dL - High 160 mg/dL Correction Factor: 20 mg/dL/unit * Prandial insulin: Per carb ratio of 1 unit per 8 grams CHO consumed Assessment & Plan ASSESSMENT: 09/06/17 * Type 2 diabetic admitted today for episode of NV, diaphoresis, found to have A fib/flutter with RVR * Pt had reported that his BSG had been low earlier in the day * Glu on initial labs 153 * Given recent report of hypoglycemic episode I agree with splitting his home Lantus dose BID to allow for ease of titration * Will add a scale to the Lantus order as a precaution * The current CF and CR are also reasonable starting points. Will lessen the CR just a little given recent report of a low BSG 09/07/17 * BSGs have ranged 135-198 over last 24 hours * Fasting BSG 151 this AM with 15 units Lantus on board (one-half of total daily dose); will continue w/ current scale for BID dosing * Post-prandial BSG rise after dinner yesterday acceptable using current CF and CR. No breakfast given today so unable to assess CR based on pre-lunch BSG. Will continue w/ the same for now PLAN FOR INPATIENT GLYCEMIC CONTROL: * Continuing Lantus SQ BID; 7 units if BSG less than 120, 15 units if BSG 120 or greater * Continuing correction factor 20 mg/dl/unit * Continue carb ratio of 1 unit per 8 grams CHO consumed * Continuing goal range of Low 120 mg/dL - High 160 mg/dL * Please note that the plan above was derived based on current level of insulin resistance and hospital stress. These recommendations are appropriate for inpatient admission only. Plan of care upon discharge will need to be reassessed to avoid potential outpatient hypo/hyperglycemia. Thank you.
[2017-09-07] MEDS: WARFARIN SOD 4 MG TAB PO SCH (15:40)
[2017-09-07 16:16] LABS: PTT PATIENT 69.6 SECONDS (21.0-31.0)
[2017-09-07] MEDS ORDERED: METOPROLOL TARTRATE 25 MG TAB PO ONE (18:00)
--- NOTE | 2017-09-07 19:03 | Progress Note ---
Progress Note Date of Service Sep 07, 2017. Progress Note Subjective: Patient denies chest pain or shortness of breath General Appearance: no apparent distress Head: normocephalic, atraumatic Eyes: normal inspection, EOMI, sclerae normal ENT: hearing grossly normal, pharynx normal, Neck: supple, trachea midline Respiratory/Chest: chest non-tender, no respiratory distress, good air entry Cardiovascular: no murmur, + irregularly irregular Abdomen/GI: normal bowel sounds, non tender, soft Back: no CVA tenderness Extremities/Musculoskelatal: no gross swelling of extremities TTE results Left Ventricle * The left ventricle is normal in size. * There is moderate concentric left ventricular hypertrophy. * The basal septum is thickened and angulated consistent with sigmoid septum. * Ejection Fraction = 45-50%. * Left ventricular systolic function is mildly reduced. * There is moderate inferior wall hypokinesis. 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
[2017-09-07] MEDS: ROSUVASTATIN CALCIUM 20 MG TAB PO SCH (21:27)
[2017-09-07] MEDS: PRIMIDONE 250 MG TAB PO SCH (21:27)
[2017-09-07] MEDS: MONTELUKAST SOD 10 MG TAB PO SCH (21:27)
[2017-09-07] MEDS: SOTALOL HCL 80 MG TAB PO SCH (22:19)
[2017-09-08] VITALS (19 sets, daily range): BP systolic 90–143; BP diastolic 49–91; PULSE 41–97; TEMP 36.4–37.3; O2SAT 91–100
[2017-09-08 05:04] LABS: INR 1.9 (0.9-1.1)
[2017-09-08 05:16] LABS: PTT PATIENT 93.1 SECONDS (21.0-31.0)
[2017-09-08] MEDS: HEPARIN 25,000 UNIT/500ML D5W 500 ML IV PRN ×3 (06:20→07:58)
[2017-09-08] MEDS ORDERED: FENTANYL CITRATE INJ 50 MCG/1 ML 2 ML VIAL ONE (07:44)
[2017-09-08] MEDS ORDERED: BENZOCAIN/TETRACA/BUTAM SPRAY 200 APPLN/20 GM SPRY ONE (07:44)
[2017-09-08] MEDS ORDERED: GLYCOPYRROLATE INJ 0.2 MG/ML VIAL ONE (07:45)
[2017-09-08] MEDS ORDERED: CANNULA ONE (07:45)
[2017-09-08] MEDS ORDERED: MIDAZOLAM HCL 1 MG/ML 2ML VIAL ONE (07:45)
[2017-09-08] MEDS: INSULIN ASPART 100 UNITS/ML 3 ML PEN SC SCH ×4 (08:00→20:31)
--- NOTE | 2017-09-08 08:21 | Pre Sedation Assessment ---
Pre Sedation Assessment General Date of Sedation: Sep 08, 2017. Vital Signs Past 12 Hours Date Time Temp Pulse Resp B/P (MAP) Pulse Ox O2 Delivery O2 Flow Rate FiO2 09/08/17 08:03 88 135/82 (99) 09/08/17 08:03 76 114/77 (89) 09/08/17 08:02 36.4 74 18 122/73 (89) 95 Room Air 09/08/17 05:28 36.7 78 22 108/67 (81) 91 Room Air 09/08/17 04:00 Room Air 09/08/17 00:03 36.9 81 18 98/62 (74) 92 Room Air 85 95/58 (70) 82 93/56 (68) 09/08/17 00:00 92 Room Air 09/07/17 21:10 37.0 86 18 102/67 (79) 91 Room Air Review Cardiovascular: regular rate, rhythm, no edema, no JVD, no murmur, normal peripheral pulses, + gallop/S4 Lungs: chest non-tender, lungs clear, normal breath sounds, no respiratory distress Pre-Sedation Airway Assessment Smoking Status: Former Smoker Hx of Sleep Apnea: No Short Thick Neck: No Oral Cavity: Dentures Mallampati Classification: Class III ASA Classification: Class II NPO Status Date of Last Intake of Fluids: Sep 07, 2017 Time of Last Intake of Fluids: 2300 Date of Last Intake of Solids: Sep 07, 2017 Time of Last Intake of Solids: 2100 Notes The planned sedation has been discussed with the patient. Informed Consent was obtained. I have identified the patient, determined the appropriateness of sedation and have assessed the patient immediately prior to the procedure. All medicine(s) and interventions are by my order.
[2017-09-08] MEDS ORDERED: LIDOCAINE HCL 2% VISC SOLN 20 ML UDC ONE (08:34)
[2017-09-08] MEDS ORDERED: NALOXONE HCL 0.4 MG/1 ML VIAL/CARP ONE (08:50)
--- NOTE | 2017-09-08 08:55 | Post Sedation Assessment ---
Post Sedation Assessment General Date of Sedation Sep 08, 2017. Vital Signs: Vital Signs Past 12 Hours Date Time Temp Pulse Resp B/P (MAP) Pulse Ox O2 Delivery O2 Flow Rate FiO2 09/08/17 08:19 91 13 130/69 (89) 96 Room Air 09/08/17 08:03 88 135/82 (99) 09/08/17 08:03 76 114/77 (89) 09/08/17 08:02 36.4 74 18 122/73 (89) 95 Room Air 09/08/17 05:28 36.7 78 22 108/67 (81) 91 Room Air 09/08/17 04:00 Room Air 09/08/17 00:03 36.9 81 18 98/62 (74) 92 Room Air 85 95/58 (70) 82 93/56 (68) 09/08/17 00:00 92 Room Air 09/07/17 21:10 37.0 86 18 102/67 (79) 91 Room Air Post Procedure Recovery Score Activity: (2) Moves 4 extremities * Respiration: (2) Deep breath/cough Circulation: (2) +/-20% PreAnes Value Consciousness: (1) Arouseable (by name) Oxygen Saturation: (2) > 92% On Room Air Discharge Sedation Level of Care: Fast Track Phase II Post Sedation Plan On clinical assessment, the patient appears to have tolerated the sedation without complications. Patient is recovering as anticipated. Patient will continue to be monitored by nursing and may be discharged when sedation discharge criteria are met per below protocol. Upon Completions of procedure and additional 15 minutes continue every 5 minute vital signs and the P.A.R. score; then discharge to a Phase I or Fast Track to Phase II per the following guidelines: * Discharge Patient to appropriate Phase II area if PAR is 8 or greater or return to pre- procedure baseline. The post - procedure orders will be as directed. * If PAR score is less than 8 or not return to pre-procedure baseline then patient will follow Phase I monitoring till PAR is reached for Phase II. The Phase I may be done in procedure room or may call to secure a Phase I area. * If naloxone or flumazenil are used for reversal, hold in Phase I for an additional 60 -120 minutes before discharge to Phase II. Please call the Sedation Physician to re-evaluate and complete post-note for discharge to Phase II area. Do NOT discharge from procedure sedation or Phase 1 until post- sedation evaluation note is complete by procedure /sedation MD Sedation Discharge Instructions to be given to the patient at discharge to home.
[2017-09-08] MEDS ORDERED: ATROPINE SULFATE 0.1 MG/ML 5ML SYR ONE (08:58)
--- NOTE | 2017-09-08 08:58 | [facility] Post Operative Brief Note ---
Immediate Operative Summary Operative Date Sep 08, 2017. Pre-Operative Diagnosis atrial flutter Post-Operative Diagnosis same Procedure(s) Performed LONDON/cardioversion Surgeon Erick Laser Beam Trim Operator Surgeon(s) Madelaine KANG Estimated Blood Loss one Findings Consistent with Post-Op Diagnosis no left atrial thrombus present/successful cardioversion to sinus rhythm Specimens none Start time: Stop time: moderate sedation with a total of Versed 3mg and Fentanyl 75mcg Drains None Anesthesia Type IV Sedat Cons RN Only Complication(s) transient desaturations during LONDON converted to sinus bradycardia with rates into 30's given atropine and narcan with good result pt vital signs stable, saturating >95% arousable and answering questions appropriately Disposition Accompanied Pt To Recover: yes Disposition: PCU
[2017-09-08] MEDS: SOTALOL HCL 80 MG TAB PO SCH ×2 (09:00→20:29)
--- NOTE | 2017-09-08 09:03 | Procedure Note ---
Procedure Note Date of Service Sep 08, 2017. Procedure Note Informed consent obtained after discussion of risks and benefits. pt prepped adequate moderate sedation achieved with a total of 3mg of Versed and 75mcg of Fentanyl LONDON performed showing no left atrial appendage thrombus present full study aborted due to transient desaturations, probe removed and saturations improved 200J of DC energy delivered with successful cardioversion to sinus bradycardia rates initially in 30's but maintaining saturations, given atropine and narcan, with adequate response start time: 0842 stop time: 0855 pt to be recovered in [facility] and returned to tele
--- NOTE | 2017-09-08 09:51 | TEE ---
*NOTICE TO RECEIVING [employer] AGENCY This information is strictly Confidential and protected under [place] law. [place] law prohibits you from making any further disclosure of this information unless further disclosure is expressly permitted by the written consent of the person to whom it pertains or is authorized by law. A general authorization for the release of medical or other information is not sufficient for this purpose. Hospital accepts no responsibility if the information is made available to any other person, INCLUDING THE PATIENT. Interpretation Summary * Name: DARREL ETIENNE Study Date: 09/08/2017 07:58 AM BP: 143/91 mmHg * Patient Location: C.2E\S\E212\S\1 HR: 90 * : 1945 (M/d/yyyy) Gender: Male Height: 73 in * Age: 72 yrs Ethnicity: [place] Weight: 246 lb * Ordering Physician: Tk Suarez * Referring Physician: Self, Referred * Performed By: Patricia Richard RDCS * * Reason For Study: AFlutter * BSA: 2.3 m2 * -- Conclusions -- * Robinul 0.4 mg administered for to reduce oral secretions. * Limited study due to patient transient desaturations. * No left atrial appendage thrombus present with velocity of 4.8 m/s in the appendage. Procedure Details * The transesophageal portion of this study was personally supervised by the undersigned interpreting physician. * LONDON Probe #2 utilized for procedure. * The study was performed in Cardiopulmonary Department. * Time out was conducted by the physician, nurse, and darkroom technician with positive identification of patient and procedure. * Informed consent for Transesophageal Echocardiogram was obtained prior to the procedure. * An intravenous line was placed. A topical anesthetic agent was used for oropharangeal anesthesia. A bite block was inserted. * The patient's vital signs, including blood pressure, heart rate, pulse oximetry and cardiac rhythm were monitored throughout the procedure . * Fentanyl 75 mcg was administered for procedural sedation. * Robinul 0.4 mg administered for to reduce oral secretions. * Midazolam 3 mg administered for sedation. * The posterior oropharynx was anesthetized using a topical anesthetic spray. A bite guard was inserted. * A multifrequency, multiplane transesopheageal echocardiographic endoscope was inserted and manipulated in the standard fashion to achieve multiplane views. * The transesophageal probe was passed without difficulty. * Limited views were obtained. * The patient tolerated the procedure well without evidence of orophangeal or esophageal trauma. * Start time 08 End time 0849 * A 2D transesophageal echocardiogram with Doppler and color flow Doppler was performed.
--- NOTE | 2017-09-08 10:02 | Cardiology Follow-Up ---
Subjective Subjective Date of Service: Sep 08, 2017. Pt evaluation today including: conversation w/ patient, physical exam, chart review, lab review, review of studies, review of inpatient medication list Additional Details: Pt seen and examined, states that he felt "ok" overnight. Denies cp, sob, palpitations, lightheadedness or dizziness. Tele reviewed: atrial flutter with variable conduction. Problem List Medical Problems: (1) Aspiration pneumonia Status: Acute (2) Atrial fibrillation with rapid ventricular response Status: Acute (3) Bronchitis Status: Acute (4) Chest pain Status: Acute (5) Hypoxia Status: Acute (6) Hypoxia Status: Acute (7) Pneumonia Status: Acute Review of Systems Respiratory: No see HPI, No cough, No sputum, No wheezing, No shortness of breath, No dyspnea on exertion, No dyspnea at rest, No hemoptysis, No problem reported Cardiac: No see HPI, No chest pain, No orthopnea, No PND, No edema, No claudication, No palpitations, No problem reported Objective Vital Signs Last Vital Signs Documentation Date Time Temp Pulse Resp B/P (MAP) Pulse Ox O2 Delivery O2 Flow Rate FiO2 09/08/17 09:54 47 14 101/56 (71) 93 Room Air 09/08/17 09:31 2 09/08/17 08:02 36.4 Physical Exam: General Appearance: WD/WN, no apparent distress Eyes: bilateral eyes normal inspection, bilateral eyes PERRL, bilateral eyes EOMI ENT: normal ENT inspection, hearing grossly normal, pharynx normal Neck: supple, no adenopathy, thyroid normal, no JVD Respiratory/Chest: chest non-tender, lungs clear, normal breath sounds, no respiratory distress, no accessory muscle use Cardiovascular: regular rate, rhythm, no JVD, + tachycardia Abdomen: normal bowel sounds, non tender, soft, no organomegaly Extremities: normal inspection, + pedal edema, + pertinent finding (multiple toe amputations) Neurologic/Psychiatric: 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 new onset atrial flutter with RVR has remained in atrial flutter overnight rates improved tolerating sotalol well, QTc stable at 475 ms in aflutter and now 414 ms in sinus melissa INR remains slightly subtherapeutic at 1.9, will cont heparin with goal INR of 2-3 underwent successful LONDON/CV to sinus bradycardia this AM will cont sotalol per parameters cont to monitor on tele daily EKG to monitor QT interval no further metoprolol to be given pt will require daily bmp to follow and replete lytes as necessary 2. CAD unable to intervene stable cont asa 3. hx ckd creat pending today will follow and adjust sotalol dose as necessary
[2017-09-08] MEDS: INSULIN GLARGINE SOLOSTAR 100 UNITS/ML 3 ML PEN SC SCH ×2 (11:40→20:33)
[2017-09-08] MEDS: RANITIDINE HCL 150 MG TAB PO SCH ×2 (11:40→20:29)
[2017-09-08] MEDS: ASPIRIN 325 MG ECTAB PO SCH (11:40)
[2017-09-08] MEDS: FUROSEMIDE 20 MG TAB PO SCH (11:41)
[2017-09-08] MEDS: ALLOPURINOL 300 MG TAB PO SCH (11:41)
[2017-09-08] MEDS: ISOSORBIDE DINITRATE 40 MG TAB PO SCH (11:41)
[2017-09-08 12:28] LABS: CALCIUM 8.7 mg/dl (8.5-10.1); CREATININE 1.15 mg/dl (0.60-1.40); POTASSIUM 4.2 mmol/L (3.5-5.1)
[2017-09-08 12:50] LABS: PTT PATIENT 64.8 SECONDS (21.0-31.0)
--- NOTE | 2017-09-08 13:53 | Pharmacy Progress Note ---
Pharmacy Glycemic Short Note 2 Date of Service Sep 08, 2017. OUTPATIENT ANTIDIABETIC REGIMEN: * Lantus 30 units qHS plus Novolog SSI ASSESSMENT: * Mr Canseco is 72 y/o M with a PMH of CHF, CKD stage 3, COPD, CAD, and poorly controlled type 2 diabetes (goal HbA1C is 7.6-8.0% according to Elements of Diabetes Care Scoring Scale). He was admitted with Afib/ flutter with RVR. Today the patient underwent a LONDON and cardioversion. He remains groggy. * Yesterday, the patient received 51 units of insulin (30 units of Lantus) and blood sugars ranged from 130-242 mg/dL. Fasting this morning was 115 mg/dL. The patient was NPO until lunch, but the patient did not eat lunch. Patient continues on heparin drip. * For Lantus, continue scale of Lantus with 10 units if blood sugar less than 120 mg/dL and 15 units if greater than 120 mg/dL. This is reasonable as the patient's home dose is 30 units of Lantus so expect a slight decrease in home dose. Unable to full assess Lantus dosing as the patient was NPO. Expect to move towards once daily dosing as the patient starts his diet. * For Novolog, continue current weight-based stress of 2 regimen as appeared to stable blood sugars yesterday. PLAN FOR INPATIENT GLYCEMIC CONTROL: * Basal insulin * Lantus 10-15 units SQ BID (10 units if BSG less than 120 mg/dL) * Bolus insulin * NovoLog per scale ACHS or Q6hrs while NPO * Goal Range: Low 120 mg/dL - High 160 mg/dL * Correction Factor: 20 mg/dL/unit * Nutritional / Prandial insulin per carb ratio of 1 unit per 8 grams CHO consumed PLAN FOR DISCHARGE: * Patient's HbA1C is not well controlled. Recommend checking blood sugars as an outpatient and titrating insulin as appropriate.
[2017-09-08] MEDS ORDERED: NURSING VERBAL MED ORDER ONE (15:30)
[2017-09-08] MEDS: WARFARIN SOD 4 MG TAB PO SCH (15:39)
--- NOTE | 2017-09-08 19:14 | Progress Note ---
Progress Note Date of Service Sep 08, 2017. Progress Note Subjective: Patient s/p LONDON General Appearance: no apparent distress Head: normocephalic, atraumatic ENT: hearing grossly normal Neck: supple, trachea midline Respiratory/Chest: chest non-tender, no respiratory distress, good air entry Cardiovascular: no murmur, bradycardia Abdomen/GI: normal bowel sounds, non tender, soft Back: no CVA tenderness Extremities/Musculoskelatal: no gross swelling of extremities TTE results Left Ventricle * The left ventricle is normal in size. * There is moderate concentric left ventricular hypertrophy. * The basal septum is thickened and angulated consistent with sigmoid septum. * Ejection Fraction = 45-50%. * Left ventricular systolic function is mildly reduced. * There is moderate inferior wall hypokinesis. Plan Patient has been evaluated by cardiology for new onset atrial flutter with RVR, s/p sotalol loading with QTC now corrected, cont sotalol per parameters s/p LONDON and cardioversion on 09/08/17, now sinus bradycardia, no further metoprolol to be given continuous tele monitoring and daily EKG monitoring of QT interval INR is 1.9 , goal INR of 2-3, continue IV heparin History of thromboembolism in the past Patient on high dose aspirin for CAD Chronic systolic CHF: Ejection Fraction = 45-50% is chronic not in acute exacerbation Electrolytes corrected COPD: not in exacerbation -does not tolerate albuterol or nebs -continue singulair -continue hycodan HS prn cough DM II -Insulin -hx neuropathy, continue oxycodone prn pain CKD III -continue to monitor renal function -avoid nephrotoxic agents when possible GOUT -continue allopurinol GERD -continue PPI DVT Prophylaxis -heparin IV / coumadin Full Code
[2017-09-08] MEDS: MONTELUKAST SOD 10 MG TAB PO SCH (20:29)
[2017-09-08] MEDS: PRIMIDONE 250 MG TAB PO SCH (20:29)
[2017-09-08] MEDS: ROSUVASTATIN CALCIUM 20 MG TAB PO SCH (20:29)
[2017-09-09] MEDS: HYDROCODONE/HOMATROPINE SYRUP 5MG/1.5MG 5ML UDP PO PRN (01:47)
[2017-09-09 03:55] VITALS: BP_SYST 105; BP_SYST 93; BP_SYST 96; BP_DIAS 54; BP_DIAS 58; PULSE 57; PULSE 58; PULSE 63; TEMP 37.2; O2SAT 97
[2017-09-09 05:06] LABS: HEMOGLOBIN 11.4 g/dL (14.0-18.0); MEAN CELL VOLUME 89.3 fL (80-100); MEAN CORPUSCULAR HEMOGLOBIN 28.3 pg (25-34); MEAN CORPUSCULAR HGB CONC 31.7 g/dl (32-36); MEAN PLATELET VOLUME 10.4 fL (7.4-10.4); PLATELET COUNT 218 K/uL (130-400); RED CELL DISTRIBUTION WIDTH CV 15.3 % (11.5-14.5); RED CELL DISTRIBUTION WIDTH SD 50.1 fL (36.4-46.3); WHITE BLOOD COUNT 7.83 K/uL (4.8-10.8)
[2017-09-09 05:23] LABS: ALBUMIN 2.8 gm/dl (3.4-5.0); CALCIUM 8.5 mg/dl (8.5-10.1); CREATININE 1.27 mg/dl (0.60-1.40); POTASSIUM 4.1 mmol/L (3.5-5.1)
[2017-09-09 05:26] LABS: TOTAL PROTEIN 7.6 gm/dl (6.4-8.2)
[2017-09-09 05:28] LABS: INR 2.1 (0.9-1.1)
[2017-09-09 05:35] LABS: PTT PATIENT 70.2 SECONDS (21.0-31.0)
[2017-09-09 07:41] VITALS: BP_SYST 115; BP_SYST 118; BP_SYST 127; BP_DIAS 65; BP_DIAS 69; BP_DIAS 70; PULSE 61; PULSE 62; TEMP 36.8; O2SAT 92
[2017-09-09] MEDS: RANITIDINE HCL 150 MG TAB PO SCH ×2 (07:48→20:10)
[2017-09-09] MEDS: SOTALOL HCL 80 MG TAB PO SCH ×2 (07:49→20:11)
[2017-09-09] MEDS: FUROSEMIDE 20 MG TAB PO SCH (07:49)
[2017-09-09] MEDS: ISOSORBIDE DINITRATE 40 MG TAB PO SCH (07:49)
[2017-09-09] MEDS: ALLOPURINOL 300 MG TAB PO SCH (07:49)
[2017-09-09] MEDS: ASPIRIN 325 MG ECTAB PO SCH (07:51)
[2017-09-09] MEDS: INSULIN ASPART 100 UNITS/ML 3 ML PEN SC SCH ×4 (07:55→21:00)
[2017-09-09] MEDS: INSULIN GLARGINE SOLOSTAR 100 UNITS/ML 3 ML PEN SC SCH (07:56)
[2017-09-09] MEDS: HEPARIN 25,000 UNIT/500ML D5W 500 ML IV PRN (07:57)
[2017-09-09 11:39] VITALS: BP 97/58; PULSE 59; TEMP 37.1; O2SAT 93
[2017-09-09 12:48] LABS: PTT PATIENT 61.6 SECONDS (21.0-31.0)
--- NOTE | 2017-09-09 14:46 | Progress Note ---
Internal Med Progress Note Date of Service: Sep 09, 2017. Provider Documentation: Subjective: Patient still has some hoarseness of voice after LONDON and cardioversion but denies pain. Has baseline expiratory wheezes on lung auscultation as per previous lungs exams. Patient again asked by nurse whether he feels shortness of breath. Patient denies shortness of breath and reports that this is baseline. General Appearance: no apparent distress Head: normocephalic, atraumatic ENT: hearing grossly normal Neck: supple, trachea midline Respiratory/Chest: chest non-tender, no respiratory distress, good air entry Cardiovascular: no murmur, bradycardia Abdomen/GI: normal bowel sounds, non tender, soft Extremities/Musculoskelatal: amputation L 3&4 toes Skin: normal color, warm/dry ASSESSMENT & PLAN: TTE results Left Ventricle * The left ventricle is normal in size. * There is moderate concentric left ventricular hypertrophy. * The basal septum is thickened and angulated consistent with sigmoid septum. * Ejection Fraction = 45-50%. * Left ventricular systolic function is mildly reduced. * There is moderate inferior wall hypokinesis. Plan Patient has been evaluated by cardiology for new onset atrial flutter with RVR, s/p sotalol loading with QTC now corrected, s/p LONDON and cardioversion on 09/08/17, now sinus bradycardia, no further metoprolol to be given continuous tele monitoring and daily EKG monitoring of QT interval patient in now therapeutically anticoagulated on coumadin with INR 2.1 and IV heparin drip bridge stopped cont sotalol per parameters - patient likely to remain in hospital up until Monday09/11/17 after completing sotolol dosing History of thromboembolism in the past - continue coumadin Patient on high dose aspirin for CAD Chronic systolic CHF: Ejection Fraction = 45-50% is chronic not in acute exacerbation Electrolytes corrected COPD: not in exacerbation -does not tolerate albuterol or nebulizer treatments from patient's history and as per patient -continue singulair -continue hycodan HS prn cough DM II -Insulin -hx neuropathy, continue oxycodone prn pain CKD III -continue to monitor renal function -avoid nephrotoxic agents when possible GOUT -continue allopurinol GERD -continue PPI DVT Prophylaxis -coumadin Full Code Vital Signs: Date Time Temp Pulse Resp B/P (MAP) Pulse Ox O2 Delivery O2 Flow Rate FiO2 09/09/17 12:00 Room Air 09/09/17 11:39 37.1 59 18 97/58 (71) 93 Room Air 09/09/17 08:00 Room Air 09/09/17 07:41 36.8 61 18 118/69 (85) 92 Room Air 09/09/17 07:41 62 127/70 (89) 09/09/17 07:41 62 115/65 (82) 09/09/17 04:20 Room Air 09/09/17 03:55 37.2 58 17 105/54 (71) 97 Nasal Cannula 2.0 57 96/54 (68) 63 93/58 (70) 09/09/17 00:20 Room Air 09/08/17 23:55 37.3 62 17 100/49 (66) 96 Nasal Cannula 2.0 09/08/17 20:30 Room Air 09/08/17 18:59 36.8 66 18 112/65 (81) 92 Room Air 70 97/57 (70) 72 101/54 (70) 09/08/17 16:20 36.8 52 18 120/66 (84) 93 Room Air 09/08/17 16:00 Room Air Lab Results: Results Past 24 Hours Test 09/08/17 16:19 09/08/17 20:04 09/09/17 04:52 09/09/17 07:06 Range/Units Bedside Glucose 146 114 142 70-99 mg/dl White Blood Count 7.83 4.8-10.8 K/uL Red Blood Count 4.03 4.7-6.1 M/uL Hemoglobin 11.4 14.0-18.0 g/dL Hematocrit 36.0 42-52 % Mean Corpuscular Volume 89.3 80-100 fL Mean Corpuscular Hemoglobin 28.3 25-34 pg Mean Corpuscular Hemoglobin Concent 31.7 32-36 g/dl RDW Standard Deviation 50.1 36.4-46.3 fL RDW Coefficient of Variation 15.3 11.5-14.5 % Platelet Count 218 130-400 K/uL Mean Platelet Volume 10.4 7.4-10.4 fL Prothrombin Time 22.0 9.0-12.0 SECONDS Prothromb Time International Ratio 2.1 0.9-1.1 Activated Partial Thromboplast Time 70.2 21.0-31.0 SECONDS Partial Thromboplastin Ratio 2.7 Sodium Level 133 136-145 mmol/L Potassium Level 4.1 3.5-5.1 mmol/L Chloride Level 99 98-107 mmol/L Carbon Dioxide Level 26 21-32 mmol/L Anion Gap 8.0 3-11 mmol/L Blood Urea Nitrogen 26 7-18 mg/dl Creatinine 1.27 0.60-1.40 mg/dl Est Creatinine Clear Calc Drug Dose 69.4 ml/min Estimated GFR () 65.9 Estimated GFR (Non- 56.9 BUN/Creatinine Ratio 20.1 10-20 Random Glucose 137 70-99 mg/dl Calcium Level 8.5 8.5-10.1 mg/dl Total Bilirubin 0.4 0.2-1 mg/dl Aspartate Amino Transf (AST/SGOT) 20 15-37 U/L Alanine Aminotransferase (ALT/SGPT) 15 12-78 U/L Alkaline Phosphatase 86 45-117 U/L Total Protein 7.6 6.4-8.2 gm/dl Albumin 2.8 3.4-5.0 gm/dl Globulin 4.8 2.5-4.0 gm/dl Albumin/Globulin Ratio 0.6 0.9-2 Test 09/09/17 11:07 09/09/17 12:14 Range/Units Bedside Glucose 107 70-99 mg/dl Activated Partial Thromboplast Time 61.6 21.0-31.0 SECONDS Partial Thromboplastin Ratio 2.4
--- NOTE | 2017-09-09 15:07 | Cardiology Follow-Up ---
Subjective General Date of Service: Sep 09, 2017. Chief Complaint: Follow-up atrial flutter Pt evaluation today including: physical exam History of Present Illness The patient is a 72 year old male seen in cardiology follow-up. Patient underwent transesophageal echocardiogram guided direct current cardioversion yesterday with successful mandaeism of sinus rhythm. He has remained in sinus bradycardia yesterday overnight last night and so far today. He received sotalol 80 mg last evening and again this morning for a total of 3 doses thus far. EKG this morning revealed sinus bradycardia at 59 bpm, with stable corrected QT interval of 465 ms. The patient has diffuse coarse wheezing. During my interview with him he states that he has a history of emphysema and that he feels his lungs are at their typical baseline. Allergies Coded Allergies: Onion (Verified Allergy, Intermediate, RASH, 09/06/17) Levofloxacin (Verified Allergy, Mild, other, 09/06/17) ' Albuterol (Verified Adverse Reaction, Mild, 0, 09/06/17) cough syncope Ipratropium (Verified Adverse Reaction, Mild, 0, 09/06/17) cough syncope Social History Smoking Status: Former Smoker Hx Tobacco Use In Past Year?: No Hx Alcohol Use - Type And Amou: No Hx Substance Use - Type And Am: No Problem List Medical Problems: (1) Aspiration pneumonia Status: Acute (2) Atrial fibrillation with rapid ventricular response Status: Acute (3) Bronchitis Status: Acute (4) Chest pain Status: Acute (5) Hypoxia Status: Acute (6) Hypoxia Status: Acute (7) Pneumonia Status: Acute Physical Exam Vital Signs Last Vital Signs Documentation Date Time Temp Pulse Resp B/P (MAP) Pulse Ox O2 Delivery O2 Flow Rate FiO2 09/09/17 12:00 Room Air 09/09/17 11:39 37.1 59 18 97/58 (71) 93 09/09/17 03:55 2.0 Physical Exam Constitutional: Level of Distress: chronically ill Neck: supple Lungs: Auscultation: pertinent finding (Coarse inspiratory and expiratory wheezing throughout the lung lewis) Cardiovascular: Heart Auscultation: RRR, no murmurs Extremities: pertinent finding (Mild edema, right ankle greater than left ankle ) Neurologic: Gait & Station: pertinent finding (No focal neurologic deficit) Assessment and Plan Assessment and Plan Impression: 72-year-old male 1. Atrial flutter for which patient underwent LONDON guided direct current cardioversion on 09/08/17 2. Atherosclerotic coronary heart disease with prior inferior myocardial infarction, diffuse multivessel coronary artery disease not amenable to cardiac catheterization, history of mild left ventricular systolic dysfunction LVEF in the 45% range 3. Chronic obstructive pulmonary disease Plan: Continue sotalol initiation. Patient is to remain on telemetry in the hospital for the first 6 doses of sotalol. His 6 dose if he stays on schedule will be in the evening of 09/10/17. Therefore he will need to be reassessed the morning of 09/11/17 consideration will be made for discharge at that time. His heart rates are borderline slow, but stable on telemetry. No indication for pacemaker at present but will need to continue to watch him vigilantly. The patient's INR had been subtherapeutic on presentation. His INR is now above 2, and therefore his heparin infusion has been discontinued. Continue warfarin for both stroke prophylaxis and DVT prophylaxis. The patient states he receives his long-term medications through the [facility] pharmacy. An EKG is already scheduled for tomorrow as his INR test. Laboratory Results Last 24 Hours Test 09/08/17 16:19 09/08/17 20:04 09/09/17 04:52 09/09/17 07:06 Bedside Glucose 146 mg/dl 114 mg/dl 142 mg/dl White Blood Count 7.83 K/uL Red Blood Count 4.03 M/uL Hemoglobin 11.4 g/dL Hematocrit 36.0 % Mean Corpuscular Volume 89.3 fL Mean Corpuscular Hemoglobin 28.3 pg Mean Corpuscular Hemoglobin Concent 31.7 g/dl RDW Standard Deviation 50.1 fL RDW Coefficient of Variation 15.3 % Platelet Count 218 K/uL Mean Platelet Volume 10.4 fL Prothrombin Time 22.0 SECONDS Prothromb Time International Ratio 2.1 Activated Partial Thromboplast Time 70.2 SECONDS Partial Thromboplastin Ratio 2.7 Sodium Level 133 mmol/L Potassium Level 4.1 mmol/L Chloride Level 99 mmol/L Carbon Dioxide Level 26 mmol/L Anion Gap 8.0 mmol/L Blood Urea Nitrogen 26 mg/dl Creatinine 1.27 mg/dl Est Creatinine Clear Calc Drug Dose 69.4 ml/min Estimated GFR () 65.9 Estimated GFR (Non- 56.9 BUN/Creatinine Ratio 20.1 Random Glucose 137 mg/dl Calcium Level 8.5 mg/dl Total Bilirubin 0.4 mg/dl Aspartate Amino Transf (AST/SGOT) 20 U/L Alanine Aminotransferase (ALT/SGPT) 15 U/L Alkaline Phosphatase 86 U/L Total Protein 7.6 gm/dl Albumin 2.8 gm/dl Globulin 4.8 gm/dl Albumin/Globulin Ratio 0.6 Test 09/09/17 11:07 09/09/17 12:14 Bedside Glucose 107 mg/dl Activated Partial Thromboplast Time 61.6 SECONDS Partial Thromboplastin Ratio 2.4
[2017-09-09 15:35] VITALS: BP_SYST 101; BP_SYST 107; BP_DIAS 57; BP_DIAS 61; BP_DIAS 62; PULSE 57; PULSE 60; PULSE 62; TEMP 37.4; O2SAT 92
[2017-09-09] MEDS: WARFARIN SOD 4 MG TAB PO SCH (17:26)
[2017-09-09 19:25] VITALS: BP 122/68; PULSE 68; TEMP 37.4; O2SAT 91
[2017-09-09] MEDS: PRIMIDONE 250 MG TAB PO SCH (20:10)
[2017-09-09] MEDS: MONTELUKAST SOD 10 MG TAB PO SCH (20:10)
[2017-09-09] MEDS: ROSUVASTATIN CALCIUM 20 MG TAB PO SCH (20:10)
[2017-09-09] MEDS ORDERED: BISACODYL 10 MG SUPP PR STA (20:26)
[2017-09-09] MEDS ORDERED: INSULIN GLARGINE SOLOSTAR 100 UNITS/ML 3 ML PEN SC SCH (21:00)
[2017-09-09 23:55] VITALS: BP_SYST 112; BP_SYST 116; BP_SYST 124; BP_DIAS 59; BP_DIAS 67; BP_DIAS 71; PULSE 65; PULSE 66; PULSE 67; TEMP 37.2; O2SAT 91
[2017-09-10 04:28] VITALS: BP 108/61; PULSE 64; TEMP 37.3; O2SAT 91
[2017-09-10] MEDS: HYDROCODONE/HOMATROPINE SYRUP 5MG/1.5MG 5ML UDP PO PRN (05:29)
[2017-09-10 07:07] LABS: INR 2.5 (0.9-1.1)
[2017-09-10 07:36] VITALS: BP 108/63; PULSE 63; TEMP 37.3; O2SAT 91
[2017-09-10] MEDS: ASPIRIN 325 MG ECTAB PO SCH (07:59)
[2017-09-10] MEDS: SOTALOL HCL 80 MG TAB PO SCH ×2 (07:59→20:00)
[2017-09-10] MEDS: ISOSORBIDE DINITRATE 40 MG TAB PO SCH (08:00)
[2017-09-10] MEDS: ALLOPURINOL 300 MG TAB PO SCH (08:00)
[2017-09-10] MEDS: RANITIDINE HCL 150 MG TAB PO SCH ×2 (08:00→19:59)
[2017-09-10] MEDS: FUROSEMIDE 20 MG TAB PO SCH (08:00)
[2017-09-10] MEDS: INSULIN ASPART 100 UNITS/ML 3 ML PEN SC SCH ×4 (08:04→20:41)
[2017-09-10] MEDS: INSULIN GLARGINE SOLOSTAR 100 UNITS/ML 3 ML PEN SC SCH ×2 (09:02→22:14)
--- NOTE | 2017-09-10 10:44 | Cardiology Follow-Up ---
Subjective General Date of Service: Sep 10, 2017. Chief Complaint: Follow-up atrial flutter Pt evaluation today including: conversation w/ patient, physical exam History of Present Illness The patient is a 72 year old male seen in cardiology follow-up. Patient offers no cardiac complaints. He is audible wheezing, but he states his lungs or other typical baseline. Mild right greater than left lower extremity edema is present, but he states this is his typical baseline. Allergies Coded Allergies: Onion (Verified Allergy, Intermediate, RASH, 09/06/17) Levofloxacin (Verified Allergy, Mild, other, 09/06/17) ' Albuterol (Verified Adverse Reaction, Mild, 0, 09/06/17) cough syncope Ipratropium (Verified Adverse Reaction, Mild, 0, 09/06/17) cough syncope Social History Smoking Status: Former Smoker Hx Tobacco Use In Past Year?: No Hx Alcohol Use - Type And Amou: No Hx Substance Use - Type And Am: No Problem List Medical Problems: (1) Aspiration pneumonia Status: Acute (2) Atrial fibrillation with rapid ventricular response Status: Acute (3) Bronchitis Status: Acute (4) Chest pain Status: Acute (5) Hypoxia Status: Acute (6) Hypoxia Status: Acute (7) Pneumonia Status: Acute Physical Exam Vital Signs Last Vital Signs Documentation Date Time Temp Pulse Resp B/P (MAP) Pulse Ox O2 Delivery O2 Flow Rate FiO2 09/10/17 08:00 Room Air 09/10/17 07:36 37.3 63 18 108/63 (78) 91 09/10/17 04:07 2.0 Physical Exam Constitutional: Level of Distress: chronically ill Neck: supple Lungs: Auscultation: pertinent finding (Coarse inspiratory and expiratory wheezing throughout the lung lewis) Cardiovascular: Heart Auscultation: RRR, no murmurs Extremities: pertinent finding (Mild edema, right ankle greater than left ankle ) Neurologic: Gait & Station: pertinent finding (No focal neurologic deficit) Assessment and Plan Assessment and Plan EKG performed this morning 09/10/17: Normal sinus rhythm at 63 bpm, nonspecific ST and T wave abnormality, mild QT prolongation at 483 ms. Compared to prior tracing performed on 09/09/17, the corrected QT interval was 465 at that time. Telemetry reveals stable sinus rhythm in the 50-60 beat per minute range with no pauses. INR level on 09/10/17 is within therapeutic goal at 2.5 Impression: 72-year-old male 1. Atrial flutter for which patient underwent LONDON guided direct current cardioversion on 09/08/17 2. Atherosclerotic coronary heart disease with prior inferior myocardial infarction, diffuse multivessel coronary artery disease not amenable to cardiac catheterization, history of mild left ventricular systolic dysfunction LVEF in the 45% range 3. Chronic obstructive pulmonary disease Plan: Continue sotalol initiation. The patient a very mild prolongation his QT see today, however it is still less than 490 ms. Patient is to remain on telemetry in the hospital for the first 6 doses of sotalol. His 6th dose if he stays on schedule will be in the evening of . Therefore he will need to be reassessed the morning of 09/11/17 consideration will be made for discharge at that time. His heart rates were initially borderline slow post cardioversion, but stable on telemetry in the last 24 hours. No indication for pacemaker at present but will need to continue to watch him vigilantly. The patient's INR had been subtherapeutic on presentation. His INR is now above 2, and therefore his heparin infusion has been discontinued. Continue warfarin for both stroke prophylaxis and DVT prophylaxis. The patient states he receives his long-term medications through the [facility] pharmacy. Recommend repeating EKG and INR tomorrow 09/11/17. Looking for, will need to keep in mind, that agents that prolong the QT interval are contraindicated given treatment with sotalol. This would include macrolide and quinolone antibiotics. If he requires future antibiotics for COPD exacerbation, would consider doxycycline as first-line agent. This needs to be communicated in his discharge summary said that his providers at the [place] [facility] are aware. [facility] up in about 2 weeks, and for assistance with faxing sotalol rx to [place] [facility]. Laboratory Results Last 24 Hours Test 09/09/17 11:07 09/09/17 12:14 09/09/17 15:42 09/09/17 20:25 Bedside Glucose 107 mg/dl 106 mg/dl 106 mg/dl Activated Partial Thromboplast Time 61.6 SECONDS Partial Thromboplastin Ratio 2.4 Test 09/10/17 06:51 09/10/17 06:56 Prothrombin Time 25.7 SECONDS Prothromb Time International Ratio 2.5 Bedside Glucose 91 mg/dl
[2017-09-10 11:33] VITALS: BP 105/63; PULSE 60; TEMP 37.1; O2SAT 92
--- NOTE | 2017-09-10 13:18 | Pharmacy Progress Note ---
Pharmacy Glycemic Short Note 2 Date of Service Sep 10, 2017. OUTPATIENT ANTIDIABETIC REGIMEN: * Lantus 30 units qHS plus Novolog SSI ASSESSMENT: * Yesterday, Mr Canseco received 47 units of insulin (of which 30 units were Lantus) and blood sugars were [phone]. Fasting this morning was 91 mg/ dL which is decreased from 142 mg/dL yesterday. Estimate patient requires between 20 and 30 units of basal. Instituted Lantus 12 units (total dose of 24 units daily) this morning. * In terms of Novolog, patient's blood sugars remained stable yesterday even with a slight loosening. Continue same regimen. Slight increase today from breakfast to lunch secondary to carbohydrate subtraction due to lower blood sugar this morning. * Mr Canseco is 72 y/o M with a PMH of CHF, CKD stage 3, COPD, CAD, and poorly controlled type 2 diabetes (goal HbA1C is 7.6-8.0% according to Elements of Diabetes Care Scoring Scale). He was admitted with Afib/ flutter with RVR. Today the patient underwent a LONDON and cardioversion. He remains groggy. * Yesterday, the patient received 51 units of insulin (30 units of Lantus) and blood sugars ranged from 130-242 mg/dL. Fasting this morning was 115 mg/dL. The patient was NPO until lunch, but the patient did not eat lunch. Patient continues on heparin drip. * For Lantus, continue scale of Lantus with 10 units if blood sugar less than 120 mg/dL and 15 units if greater than 120 mg/dL. This is reasonable as the patient's home dose is 30 units of Lantus so expect a slight decrease in home dose. Unable to full assess Lantus dosing as the patient was NPO. Expect to move towards once daily dosing as the patient starts his diet. * For Novolog, continue current weight-based stress of 2 regimen as appeared to stable blood sugars yesterday. PLAN FOR INPATIENT GLYCEMIC CONTROL: * Basal insulin * Lantus 12 units SQ BID * Bolus insulin * NovoLog per scale ACHS or Q6hrs while NPO * Goal Range: Low 120 mg/dL - High 160 mg/dL * Correction Factor: 30 mg/dL/unit * Nutritional / Prandial insulin per carb ratio of 1 unit per 10 grams CHO consumed PLAN FOR DISCHARGE: * Patient's HbA1C is not well controlled. Recommend checking blood sugars as an outpatient and titrating insulin as appropriate.
[2017-09-10 15:39] VITALS: BP 106/62; PULSE 58; TEMP 37.2; O2SAT 93
[2017-09-10] MEDS: WARFARIN SOD 4 MG TAB PO SCH (16:51)
--- NOTE | 2017-09-10 17:45 | Progress Note ---
Internal Med Progress Note Date of Service: Sep 10, 2017. Provider Documentation: Subjective: Patient's voice improving from hoarseness of voice. Denies pain. Has baseline expiratory wheezes on lung auscultation as per previous lungs exams. Patient denies shortness of breath General Appearance: no apparent distress Head: normocephalic, atraumatic ENT: hearing grossly normal Neck: supple, trachea midline Respiratory/Chest: chest non-tender, no respiratory distress, good air entry, wheezes Cardiovascular: no murmur, bradycardia Abdomen/GI: normal bowel sounds, non tender, soft Extremities/Musculoskelatal: amputation L 3&4 toes Skin: normal color, warm/dry ASSESSMENT & PLAN: TTE results Left Ventricle * The left ventricle is normal in size. * There is moderate concentric left ventricular hypertrophy. * The basal septum is thickened and angulated consistent with sigmoid septum. * Ejection Fraction = 45-50%. * Left ventricular systolic function is mildly reduced. * There is moderate inferior wall hypokinesis. Plan Patient has been evaluated by cardiology for new onset atrial flutter with RVR, s/p sotalol loading with QTC now corrected, s/p LONDON and cardioversion on 09/08/17, now sinus bradycardia, no further metoprolol to be given continuous tele monitoring and daily EKG monitoring of QT interval patient in now therapeutically anticoagulated on coumadin with INR 2.1 and IV heparin drip bridge stopped cont sotalol per parameters - patient likely to remain in hospital up until Monday09/11/17 after completing sotolol dosing Atherosclerotic coronary heart disease with prior inferior myocardial infarction , diffuse multivessel coronary artery disease not amenable to cardiac catheterization, history of mild left ventricular systolic dysfunction LVEF in the 45% range continue aspirin COPD: not in exacerbation -does not tolerate albuterol or nebulizer treatments from patient's history and as per patient -continue singulair -continue hycodan HS prn cough -[facility] should follow up with patient and have discharge information that patient newly started on sotalol and that if patient requires antibiotics for COPD exacerbation, should consider doxycycline as first-line agent because agents that prolong the QT interval are contraindicated given treatment with sotalol such as macrolide and quinolone antibiotics Electrolytes corrected DM II -Insulin -hx neuropathy, continue oxycodone prn pain CKD III -continue to monitor renal function -avoid nephrotoxic agents when possible GOUT -continue allopurinol GERD -continue PPI History of thromboembolism in the past - continue coumadin DVT Prophylaxis -coumadin Full Code Disposition: outpatient [facility] chart to request cardio follow up in about 2 weeks, and for assistance with faxing [facility] and have discharge information that patient newly started on sotalol and that if patient requires antibiotics for COPD exacerbation, should consider doxycycline as first-line agent because agents that prolong the QT interval are contraindicated given treatment with sotalol such as macrolide and quinolone antibiotics awaiting completion of sotalol loading by Monday09/11/17 and further inpatient cardiology recommendations Vital Signs: Date Time Temp Pulse Resp B/P (MAP) Pulse Ox O2 Delivery O2 Flow Rate FiO2 09/10/17 16:00 Room Air 09/10/17 15:39 37.2 58 24 106/62 (77) 93 Room Air 09/10/17 12:00 Room Air 09/10/17 11:33 37.1 60 18 105/63 (77) 92 2.0 09/10/17 08:00 Room Air 09/10/17 07:36 37.3 63 18 108/63 (78) 91 Room Air 09/10/17 04:28 37.3 64 22 108/61 (77) 91 Room Air 09/10/17 04:07 Nasal Cannula 2.0 09/10/17 00:00 Nasal Cannula 2.0 09/09/17 23:55 37.2 66 22 116/67 (83) 91 Nasal Cannula 2.0 65 112/71 (85) 67 124/59 (80) 09/09/17 20:00 Room Air 09/09/17 19:25 37.4 68 20 122/68 (86) 91 Room Air Lab Results: Results Past 24 Hours Test 09/09/17 20:25 09/10/17 06:51 09/10/17 06:56 09/10/17 11:03 Range/Units Bedside Glucose 106 91 105 70-99 mg/dl Prothrombin Time 25.7 9.0-12.0 SECONDS Prothromb Time International Ratio 2.5 0.9-1.1 Test 09/10/17 15:56 Range/Units Bedside Glucose 108 70-99 mg/dl
[2017-09-10 19:38] VITALS: BP 109/79; PULSE 59; TEMP 37.4; O2SAT 97
[2017-09-10] MEDS: MONTELUKAST SOD 10 MG TAB PO SCH (20:00)
[2017-09-10] MEDS: ROSUVASTATIN CALCIUM 20 MG TAB PO SCH (20:00)
[2017-09-10] MEDS: PRIMIDONE 250 MG TAB PO SCH (20:00)
[2017-09-10 23:55] VITALS: BP 104/49; PULSE 57; TEMP 37.2; O2SAT 93
[2017-09-11 03:50] VITALS: BP 110/50; PULSE 58; TEMP 37.2; O2SAT 100
[2017-09-11 06:09] LABS: HEMATOCRIT 37.1 % (42-52); HEMOGLOBIN 11.5 g/dL (14.0-18.0); MEAN CORPUSCULAR HEMOGLOBIN 27.6 pg (25-34); MEAN PLATELET VOLUME 10.2 fL (7.4-10.4); PLATELET COUNT 196 K/uL (130-400); RED CELL DISTRIBUTION WIDTH CV 15.3 % (11.5-14.5); RED CELL DISTRIBUTION WIDTH SD 49.9 fL (36.4-46.3); WHITE BLOOD COUNT 8.85 K/uL (4.8-10.8)
[2017-09-11 06:25] LABS: INR 2.6 (0.9-1.1)
[2017-09-11 07:52] VITALS: BP 122/65; PULSE 56; TEMP 36.5; O2SAT 98
[2017-09-11] MEDS: SOTALOL HCL 80 MG TAB PO SCH (08:45)
[2017-09-11] MEDS: ASPIRIN 325 MG ECTAB PO SCH (08:46)
[2017-09-11] MEDS: ISOSORBIDE DINITRATE 40 MG TAB PO SCH (08:46)
[2017-09-11] MEDS: FUROSEMIDE 20 MG TAB PO SCH (08:47)
[2017-09-11] MEDS: ALLOPURINOL 300 MG TAB PO SCH (08:47)
[2017-09-11] MEDS: RANITIDINE HCL 150 MG TAB PO SCH (08:47)
[2017-09-11] MEDS: INSULIN ASPART 100 UNITS/ML 3 ML PEN SC SCH ×2 (08:53→12:08)
--- NOTE | 2017-09-11 10:33 | Pharmacy Progress Note ---
Pharmacy Glycemic Short Note 2 Date of Service Sep 11, 2017. OUTPATIENT ANTIDIABETIC REGIMEN: * Lantus 30 units qHS plus Novolog SSI ASSESSMENT: * Yesterday, Mr Canseco received 32 units of insulin (of which 24 units were Lantus) and blood sugars were [phone]. Fasting this morning was 88 mg/dL which is decreased from 91 mg/dL yesterday. Estimate patient requires around 20 units of basal. To prepare for discharge after sotalol loading, will transition to once daily evening dose. Will give Lantus 12 units at lunch and then 8 units tonight .... 20 units tomorrow. * In terms of Novolog, patient's blood sugars remained stable yesterday - continue regimen. * Mr Canseco is 72 y/o M with a PMH of CHF, CKD stage 3, COPD, CAD, and poorly controlled type 2 diabetes (goal HbA1C is 7.6-8.0% according to Elements of Diabetes Care Scoring Scale). He was admitted with Afib/ flutter with RVR. Today the patient underwent a LONDON and cardioversion. He remains groggy. * Yesterday, Mr Canseco received 47 units of insulin (of which 30 units were Lantus) and blood sugars were [phone]. Fasting this morning was 91 mg/ dL which is decreased from 142 mg/dL yesterday. Estimate patient requires between 20 and 30 units of basal. Instituted Lantus 12 units (total dose of 24 units daily) this morning. * In terms of Novolog, patient's blood sugars remained stable yesterday even with a slight loosening. Continue same regimen. Slight increase today from breakfast to lunch secondary to carbohydrate subtraction due to lower blood sugar this morning. PLAN FOR INPATIENT GLYCEMIC CONTROL: * Basal insulin * Lantus 12 units SQ with lunch and then 8 units SQ at evening then 20 units starting tomorrow evening. * Bolus insulin * NovoLog per scale ACHS or Q6hrs while NPO * Goal Range: Low 120 mg/dL - High 160 mg/dL * Correction Factor: 30 mg/dL/unit * Nutritional / Prandial insulin per carb ratio of 1 unit per 10 grams CHO consumed PLAN FOR DISCHARGE: * Patient's HbA1C is not well controlled. Recommend checking blood sugars as an outpatient and titrating insulin as appropriate.
--- NOTE | 2017-09-11 10:52 | Progress Note ---
Internal Med Progress Note Date of Service: Sep 11, 2017. Provider Documentation: Subjective: Patient's voice improving from hoarseness of voice. Denies pain. Has baseline expiratory wheezes on lung auscultation as per previous lungs exams. Patient denies shortness of breath General Appearance: no apparent distress Head: normocephalic, atraumatic ENT: hearing grossly normal Neck: supple, trachea midline Respiratory/Chest: chest non-tender, no respiratory distress, good air entry, wheezes Cardiovascular: no murmur, bradycardia Abdomen/GI: normal bowel sounds, non tender, soft Extremities/Musculoskelatal: amputation L 3&4 toes Skin: normal color, warm/dry ASSESSMENT & PLAN: Hospital Course Patient has been evaluated by cardiology for new onset atrial flutter with RVR, s/p sotalol loading with QTC now corrected, s/p LONDON and cardioversion on 09/08/17 patient is to be discharged with sotalol as part of new outpatient medication list continuous tele monitoring and daily EKG monitoring of QT interval cont sotalol per parameters - patient likely to remain in hospital up until Monday09/11/17 after completing sotalol dosing Patient has: Atherosclerotic coronary 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 [facility] appointment line is messaging the anticoagulation clinic to schedule with patient COPD: not in exacerbation [facility] with patient and have discharge information that patient newly started on sotalol and that if patient requires antibiotics for COPD exacerbation, should consider doxycycline as first-line agent because agents that prolong the QT interval are contraindicated given treatment with sotalol such as macrolide and quinolone antibiotics DM II Patient's HbA1C is not well controlled. Recommend checking blood sugars as an outpatient and titrating insulin as appropriate CKD III GOUT history: continue allopurinol GERD history continue PPI Discharge instructions: Discharge to home Patient sees primary care physician Dr. Mortensen and [place] clinic Follow up with 09/18/2017 at 2:45 Ron Mortensen DO General Internal Medicine [facility] clinic should follow up with patient and have discharge information that patient newly started on sotalol and that if patient requires antibiotics for COPD exacerbation, should consider doxycycline as first-line agent because agents that prolong the QT interval are contraindicated given treatment with sotalol such as macrolide and quinolone antibiotics Followup with Cardiology clinic: 09/25/2017 11:00 AM Tk Suarez Jr., DO Cardiology, [facility] and for assistance with faxing sotalol rx to [place] clinic (Dr. Suarez may call the patient earlier than this appointment time to check EKG while patient is on sotalol) Get INR checked this week while on coumadin The discharge appointment line to [facility] is [phone] Vital Signs: Date Time Temp Pulse Resp B/P (MAP) Pulse Ox O2 Delivery O2 Flow Rate FiO2 09/11/17 08:00 Nasal Cannula 2.0 09/11/17 07:52 36.5 56 18 122/65 (84) 98 Nasal Cannula 2.0 09/11/17 04:00 Nasal Cannula 2.0 09/11/17 03:50 37.2 58 20 110/50 (70) 100 Nasal Cannula 2.0 09/11/17 00:00 Nasal Cannula 2.0 09/10/17 23:55 37.2 57 20 104/49 (67) 93 Nasal Cannula 2.0 09/10/17 20:00 Nasal Cannula 2.0 09/10/17 19:38 37.4 59 22 109/79 (89) 97 Nasal Cannula 2.0 09/10/17 16:00 Room Air 09/10/17 15:39 37.2 58 24 106/62 (77) 93 Room Air 09/10/17 12:00 Room Air 09/10/17 11:33 37.1 60 18 105/63 (77) 92 2.0 Lab Results: Results Past 24 Hours Test 09/10/17 15:56 09/10/17 20:20 09/11/17 05:57 09/11/17 06:28 Range/Units Bedside Glucose 108 126 88 70-99 mg/dl White Blood Count 8.85 4.8-10.8 K/uL Red Blood Count 4.17 4.7-6.1 M/uL Hemoglobin 11.5 14.0-18.0 g/dL Hematocrit 37.1 42-52 % Mean Corpuscular Volume 89.0 80-100 fL Mean Corpuscular Hemoglobin 27.6 25-34 pg Mean Corpuscular Hemoglobin Concent 31.0 32-36 g/dl RDW Standard Deviation 49.9 36.4-46.3 fL RDW Coefficient of Variation 15.3 11.5-14.5 % Platelet Count 196 130-400 K/uL Mean Platelet Volume 10.2 7.4-10.4 fL Prothrombin Time 27.1 9.0-12.0 SECONDS Prothromb Time International Ratio 2.6 0.9-1.1
[2017-09-11] MEDS ORDERED: BTP80 PO (11:05)
--- NOTE | 2017-09-11 11:09 | Discharge Instructions ---
Discharge Instructions Date of Service Sep 11, 2017. Admission Reason for Admission: Atrail Flutter Discharge Discharge Diagnosis / Problem: Atrial flutter, Cardioversion, Anticougulated on Coumadin, DM, COPD Discharge Goals Goal(s): Improve function Activity Recommendations Activity Limitations: per Instructions/Follow-up section Shower/Bathe: no limitations . Instructions / Follow-Up Instructions / Follow-Up Hospital Course Patient has been evaluated by cardiology for new onset atrial flutter with RVR, s/p sotalol loading with QTC now corrected, s/p LONDON and cardioversion on 09/08/17 patient is to be discharged with sotalol as part of new outpatient medication list continuous tele monitoring and daily EKG monitoring of QT interval cont sotalol per parameters - patient likely to remain in hospital up until Monday09/11/17 after completing sotalol dosing Patient has: Atherosclerotic coronary 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 [facility] appointment line is messaging the anticoagulation clinic to schedule with patient COPD: not in exacerbation [facility] should [facility] with patient and have discharge information that patient newly started on sotalol and that if patient requires antibiotics for COPD exacerbation, should consider doxycycline as first-line agent because agents that prolong the QT interval are contraindicated given treatment with sotalol such as macrolide and quinolone antibiotics DM II Patient's HbA1C is not well controlled. Recommend checking blood sugars as an outpatient and titrating insulin as appropriate CKD III GOUT history: continue allopurinol GERD history continue PPI Discharge instructions: Discharge to home Patient sees primary care physician Dr[facility] Follow up with 09/18/2017 at 2:45 Ron Mortensen DO General Internal Medicine [facility] clinic should follow up with patient and have discharge information that patient newly started on sotalol and that if patient requires antibiotics for COPD exacerbation, should consider doxycycline as first-line agent because agents that prolong the QT interval are contraindicated given treatment with sotalol such as macrolide and quinolone antibiotics Followup with Cardiology clinic: 09/25/2017 11:00 AM Tk Suarez Jr., DO Cardiology, [facility] and for assistance with faxing sotalol rx to [place] clinic (Dr. Suarez may call the patient earlier than this appointment time to check EKG while patient is on sotalol) Get INR checked this week while on coumadin The discharge appointment line to [facility] clinics is [phone] Current Hospital Diet Patient's current hospital diet: Diabetes Type 2 Diet, AHA Diet (Heart Healthy) Discharge Diet Recommended Diet: AHA Diet (Heart Healthy), Diabetes Type 2 Diet Procedures Procedures Performed: LONDON/cardioversion Pending Studies Studies pending at discharge: no Laboratory Results 09/11/17 05:57 09/09/17 04:52 Test 09/06/17 10:10 09/06/17 15:35 09/06/17 15:50 09/06/17 22:36 Direct Bilirubin 0.2 mg/dl (0-0.2) Pro-B-Type Natriuretic Peptide 904 pg/ml (0-900) Lipase 44 U/L (73-393) Thyroid Stimulating Hormone (TSH) 0.787 uIu/ml (0.300-4.500) Influenza Type A (RT-PCR) Neg for Influ A (NEG) Influenza Type B (RT-PCR) Neg for Influ B (NEG) Urine Color YELLOW Urine Appearance CLEAR (CLEAR) Urine pH 6.5 (4.5-7.5) Urine Specific [place] 1.010 (1.000-1.030) Urine Protein TRACE (NEG) Urine Glucose (UA) TRACE (NEG) Urine Ketones NEG (NEG) Urine Occult Blood TRACE (NEG) Urine Nitrite NEG (NEG) Urine Bilirubin NEG (NEG) Urine Urobilinogen NEG (NEG) Urine Leukocyte Esterase NEG (NEG) Urine RBC 0-4 /hpf (0-4) Urine WBC 0 /hpf (0-5) Urine Epithelial Cells 5-10 /lpf (0-5) Urine Bacteria NEG (NEG) Troponin I < 0.015 ng/ml (0-0.045) Test 09/07/17 06:53 09/09/17 04:52 09/09/17 12:14 09/11/17 05:57 Immature Granulocyte % (Auto) 0.1 % White Blood Count 7.05 K/uL (4.8-10.8) Red Blood Count 4.10 M/uL (4.7-6.1) 4.17 M/uL (4.7-6.1) Hemoglobin 11.5 g/dL (14.0-18.0) Hematocrit 35.9 % (42-52) Mean Corpuscular Volume 87.6 fL (80-100) 89.0 fL (80-100) Mean Corpuscular Hemoglobin 28.0 pg (25-34) 27.6 pg (25-34) Mean Corpuscular Hemoglobin Concent 32.0 g/dl (32-36) 31.0 g/dl (32-36) Platelet Count 162 K/uL (130-400) Mean Platelet Volume 9.8 fL (7.4-10.4) 10.2 fL (7.4-10.4) Neutrophils (%) (Auto) 76.2 % Lymphocytes (%) (Auto) 11.3 % Monocytes (%) (Auto) 10.4 % Eosinophils (%) (Auto) 1.6 % Basophils (%) (Auto) 0.4 % Neutrophils # (Auto) 5.37 K/uL (1.4-6.5) Lymphocytes # (Auto) 0.80 K/uL (1.2-3.4) Monocytes # (Auto) 0.73 K/uL (0.11-0.59) Eosinophils # (Auto) 0.11 K/uL (0-0.5) Basophils # (Auto) 0.03 K/uL (0-0.2) Immature Granulocyte # (Auto) 0.01 K/uL (0.00-0.02) Estimated Average Glucose 206 mg/dl Hemoglobin A1c 8.8 % (4.5-5.6) Magnesium Level 2.0 mg/dl (1.8-2.4) Triglycerides Level 96 mg/dl (0-150) Cholesterol Level 93 mg/dl (0-200) HDL Cholesterol 30 mg/dl LDL Cholesterol, Calculated 44 mg/dl VLDL Cholesterol, Calculated 19 mg/dl Cholesterol/HDL Ratio 3.1 Anion Gap 8.0 mmol/L (3-11) Est Creatinine Clear Calc Drug Dose 69.4 ml/min Estimated GFR () 65.9 Estimated GFR (Non- 56.9 BUN/Creatinine Ratio 20.1 (10-20) Calcium Level 8.5 mg/dl (8.5-10.1) Total Bilirubin 0.4 mg/dl (0.2-1) Aspartate Amino Transf (AST/SGOT) 20 U/L (15-37) Alanine Aminotransferase (ALT/SGPT) 15 U/L (12-78) Alkaline Phosphatase 86 U/L (45-117) Total Protein 7.6 gm/dl (6.4-8.2) Albumin 2.8 gm/dl (3.4-5.0) Globulin 4.8 gm/dl (2.5-4.0) Albumin/Globulin Ratio 0.6 (0.9-2) Activated Partial Thromboplast Time 61.6 SECONDS (21.0-31.0) Partial Thromboplastin Ratio 2.4 RDW Standard Deviation 49.9 fL (36.4-46.3) RDW Coefficient of Variation 15.3 % (11.5-14.5) Prothrombin Time 27.1 SECONDS (9.0-12.0) Prothromb Time International Ratio 2.6 (0.9-1.1) Test 09/11/17 06:28 Bedside Glucose 88 mg/dl (70-99) Hemoglobin A1c Test 09/07/17 06:53 Range/Units Estimated Average Glucose 206 mg/dl Hemoglobin A1c 8.8 H 4.5-5.6 % Lipid Panel Test 09/07/17 06:53 Range/Units Triglycerides Level 96 0-150 mg/dl Cholesterol Level 93 0-200 mg/dl HDL Cholesterol 30 mg/dl Cholesterol/HDL Ratio 3.1 LDL Cholesterol, Calculated 44 mg/dl Medical Emergencies . Who to Call and When: Medical Emergencies: If at any time you feel your situation is an emergency, please call 911 immediately. . Non-Emergent Contact Non-Emergency issues call your: Primary Care Provider, [employer] . . "Provider Documentation" section prepared by Michael Macario. . VTE Core Measure Inpt VTE Proph given/why not?: Warfarin (Coumadin), Other Anticoagulation
--- NOTE | 2017-09-11 11:18 | Discharge Summary ---
Discharge Summary Date of Service Sep 11, 2017. Discharge Summary Admission Date: Sep 06, 2017 at 13:44 Discharge Date: Sep 11, 2017 Discharge Disposition: Home Principal Diagnosis: Atrial flutter, Cardioversion, Anticoagulated on Coumadin, DM on insulin, COPD without acute exacerbation Secondary Diagnoses/Problems: Atherosclerotic coronary heart disease with prior inferior myocardial infarction , diffuse multivessel coronary artery disease not amenable to cardiac catheterization, history of mild left ventricular systolic dysfunction LVEF in the 45% range Medication Reconciliation New Medications: Sotalol HCl (Sotalol HCl) 80 Mg Tab 80 MG PO BID for 30 Days, #60 TAB Continued Medications: Allopurinol (Allopurinol) 300 Mg Tab 300 MG PO DAILY Aspirin (Aspirin) 325 Mg Tab 325 MG PO DAILY Furosemide (Furosemide) 20 Mg Tab 20 MG PO DAILY Hydrocodone W/ Homatropine (Hycodan 5/1.5MG 5 Ml) 1 Syp Syp 5 ML PO HS PRN for Cough for 24 Days, #120 ML Insulin Aspart (Novolog) 100 Units/Ml Inj SLIDING SCALE Insulin Glargine (Lantus) 100 Unit/Ml Inj 30 UNITS SC HS, VIAL Isosorbide Dinitrate (Isordil) 40 Mg Tab 40 MG PO DAILY Montelukast Sodium (Singulair) 10 Mg Tab 10 MG PO QPM Nitroglycerin (Nitrostat) 0.4 Mg Tab 0.4 MG UT UD PRN for Chest Pain, 0 Refills Oxycodone/Acetaminophen 5MG/325MG (Percocet 5MG/325MG) Tab 1 TABLET PO BID PRN for Pain, TAB Primidone (Mysoline) 250 Mg Tab 250 MG PO HS, 0 Refills Ranitidine (Zantac) 150 Mg Tab 150 MG PO BID, 0 Refills Rosuvastatin Calcium (Crestor) 40 Mg Tab 40 MG PO HS Warfarin Sod (Jantoven) 2 Mg Tab 2 MG PO 2XWK WED AND SAT Warfarin Sod (Jantoven) 2 Mg Tab 4 MG PO 5XWK SUN, MON, TUES, THURS, FRI Admission Information HPI (per Admitting provider): Pt is 72 y/o M with PMH CAD, non-ischemic cardiomyopathy, cough vasovagal syncope, 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 Pt states this morning FBS was 93. He never eats breakfast. States was getting dressed to go to the bank today and he coughed and after coughing became nauseated, diaphoretic and "didn't feel right ". He thought maybe his blood sugar dropped so he drank a can of soda. Didn't recheck BS. He went to [facility] and when there had another episode of nausea, diaphoresis and vomited x 1. EMS was called at that time and BS reported 153 and pt noted to be in a-flutter. He has no hx a-flutter. Pt denies any CP, palpitations, syncope, vision changes or KOO. Pt with hx COPD and reports chronic cough and denies any increased cough or production. Chronic SOB and denies any worsening. Denies hemoptysis. Pt cannot tolerate inhalers/nebs as makes him pass out. Uses Hycodan HS intermittently for cough. Not on home oxygen. He states has chronic tickle to throat that is no worse/better. Denies choking or dysphagia. Denies rhinorrhea, fever or chills. He has been around others in building with cough and cold symptoms. Chronic RLE edema with hx PE that worsens throughout day and edema decreased by morning after supine. Denies any increased edema or pain, erythema. Reports his INR has been high and has been having Coumadin adjusted by Coumadin clinic. Yesterday INR: 1.9. Hx neuropathy, uses Percocet intermittently. Denies fever, diarrhea, rashes, urinary symptoms. In ER a-flutter in 120's. Given Cardizem 10mg and started on Cardizem drip, at 5ml/hr. 1L NSS. Negative troponin. 88% on RA up to 97% on 2L NC. CXR: slight progression chronic bibasilar intersitial opacities. WBC: 11.4. glucose: 153, BNP: 904, TSH: 0.7, INR: 1.8 Physical Exam (per Admitting): General Appearance: WD/WN, no apparent distress Head: normocephalic, atraumatic Eyes: normal inspection, PERRL, EOMI, sclerae normal ENT: hearing grossly normal, pharynx normal, + pertinent finding (slightly dry mucous membranes) Neck: supple, trachea midline Respiratory/Chest: chest non-tender, no respiratory distress, no accessory muscle use, + decreased breath sounds, + rhonchi, + wheezing Cardiovascular: no murmur, + irregularly irregular Abdomen/GI: normal bowel sounds, non tender, soft Back: no CVA tenderness Extremities/Musculoskelatal: normal capillary refill (RLE with edema, mild tenderness to palpation posterior R calf. +amputation L 3&4 toes. sensation to light touch intact) Skin: normal color, warm/dry Hospital Course Hospital Course Patient has been evaluated by cardiology for new onset atrial flutter with RVR, s/p sotalol loading with QTC now corrected, s/p LONDON and cardioversion on 09/08/17 patient is to be discharged with sotalol as part of new outpatient medication list continuous tele monitoring and daily EKG monitoring of QT interval cont sotalol per parameters - patient likely to remain in hospital up until Monday09/11/17 after completing sotalol dosing Patient has: Atherosclerotic coronary 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 [facility] appointment line is messaging the anticoagulation clinic to schedule with patient COPD: [facility] exacerbation [facility] with patient and have discharge information that patient newly started on sotalol and that if patient requires antibiotics for COPD exacerbation, should consider doxycycline as first-line agent because agents that prolong the QT interval are contraindicated given treatment with sotalol such as macrolide and quinolone antibiotics DM II Patient's HbA1C is not well controlled. Recommend checking blood sugars as an outpatient and titrating insulin as appropriate CKD III GOUT history: continue allopurinol GERD history continue PPI Discharge instructions: Discharge to home Patient sees primary care physician Dr. [facility] Follow up with 09/18/2017 at 2:45 Ron Mortensen DO General Internal Medicine [facility] clinic should follow up with patient and have discharge information that patient newly started on sotalol and that if patient requires antibiotics for COPD exacerbation, should consider doxycycline as first-line agent because agents that prolong the QT interval are contraindicated given treatment with sotalol such as macrolide and quinolone antibiotics Followup with Cardiology clinic: 09/25/2017 11:00 AM Tk Suarez Jr., DO Cardiology, [facility] and for assistance with faxing sotalol rx to [place] clinic (Dr. Suarez may call the patient earlier than this appointment time to check EKG while patient is on sotalol) Get INR checked this week while on coumadin The discharge appointment line to [facility] clinics is [phone] Total time spent on discharge = 60 minutes This includes examination of the patient, discharge planning, medication reconciliation, and communication with other providers. Discharge Instructions see above
[2017-09-11] MEDS ORDERED: INSULIN GLARGINE SOLOSTAR 100 UNITS/ML 3 ML PEN SC SCH ×3 (12:00→21:00)
[2017-09-11 12:17] VITALS: BP 122/65; PULSE 56; TEMP 36.5; O2SAT 98
--- NOTE | 2017-09-11 13:46 | Cardiology Follow-Up ---
Subjective Subjective Date of Service: Sep 11, 2017. Pt evaluation today including: conversation w/ patient, physical exam, chart review, lab review, review of studies, review of inpatient medication list Additional Details: Pt seen and examined, without complaint. Denies cp, sob, palpitations, lightheadedness or dizziness. Tele reviewed: sinus rhythm without arrhythmia or significant ectopy. Problem List Medical Problems: (1) Aspiration pneumonia Status: Acute (2) Atrial fibrillation with rapid ventricular response Status: Acute (3) Bronchitis Status: Acute (4) Chest pain Status: Acute (5) Hypoxia Status: Acute (6) Hypoxia Status: Acute (7) Pneumonia Status: Acute Review of Systems Respiratory: No see HPI, No cough, No sputum, No wheezing, No shortness of breath, No dyspnea on exertion, No dyspnea at rest, No hemoptysis, No problem reported Cardiac: No see HPI, No chest pain, No orthopnea, No PND, No edema, No claudication, No palpitations, No problem reported Objective Vital Signs Last Vital Signs Documentation Date Time Temp Pulse Resp B/P (MAP) Pulse Ox O2 Delivery O2 Flow Rate FiO2 09/11/17 12:17 36.5 56 18 98 Nasal Cannula 09/11/17 12:00 2.0 09/11/17 07:52 122/65 (84) Physical Exam: General Appearance: WD/WN, no apparent distress Eyes: bilateral eyes normal inspection, bilateral eyes PERRL, bilateral eyes EOMI ENT: normal ENT inspection, hearing grossly normal, pharynx normal Neck: supple, no adenopathy, thyroid normal, no JVD Respiratory/Chest: chest non-tender, lungs clear, normal breath sounds, no respiratory distress, no accessory muscle use Cardiovascular: regular rate, rhythm, no edema, no JVD, + systolic murmur, + gallop/S4 Abdomen: normal bowel sounds, non tender, soft, no organomegaly Extremities: normal inspection, + pedal edema, + pertinent finding (multiple toe amputations) Neurologic/Psychiatric: social staff worker II-XII nml as tested, no motor/sensory deficits, alert, normal mood/affect, oriented x 3 Skin: normal color, warm/dry, no rash Lymphatic: no adenopathy Assessment and Plan 1. new onset atrial flutter with RVR s/p cardioversion and successful Sotalol loading QT slightly increased today no sign of ventricular arrhythmia would like to remain on Sotalol 80mg bid to maintain sinus rhythm will d/c home on Sotalol 80mg bid and repeat EKG on 09/14 as outpatient my office will call to schedule EKG and cardiac follow up cont to follow with coag clinic for goal INR of 2-3 avoid QT prolonging agents, i.e. quinolones and macrolide antibiotics 2. CAD unable to intervene stable cont asa 3. hx ckd stable ok to d/c to home from cardiac standpoint
[2017-09-12] MEDS ORDERED: INSULIN GLARGINE SOLOSTAR 100 UNITS/ML 3 ML PEN SC SCH ×2 (21:00)
== END 2017-09-11 14:04 | disposition home health service (06) | DRG 309 ==
LOC: EDBD 09:49 → C.EDB 09:50 → C.2E 13:44 → ENRESERV 14:17
PROVIDERS: ADMIT Hospitalist; ATTEND Hospitalist
PROC: 5A2204Z Restoration of Cardiac Rhythm, Single (ICD-10-PCS; principal; 2017-09-08 08:15)
DX: I48.92 Unspecified atrial flutter (principal); I50.22 Chronic systolic (congestive) heart failure; I82.509 Chronic embolism and thrombosis of unspecified deep veins of unspecified lower extremity; I27.82 Chronic pulmonary embolism; I51.3 Intracardiac thrombosis, not elsewhere classified; I48.91 Unspecified atrial fibrillation; R00.1 Bradycardia, unspecified; I95.2 Hypotension due to drugs; T46.1X5A Adverse effect of calcium-channel blockers, initial encounter; Y92.238 Other place in hospital as the place of occurrence of the external cause; R79.1 Abnormal coagulation profile; I25.5 Ischemic cardiomyopathy; I25.118 Atherosclerotic heart disease of native coronary artery with other forms of angina pectoris; J44.9 Chronic obstructive pulmonary disease, unspecified; R09.02 Hypoxemia; E11.40 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 diabetic neuropathy, unspecified; E11.22 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 diabetic chronic kidney disease; N18.3 Chronic kidney disease, stage 3 (moderate); E78.5 Hyperlipidemia, unspecified; K21.9 Gastro-esophageal reflux disease without esophagitis; M10.9 Gout, unspecified; I73.9 Peripheral vascular disease, unspecified; I25.2 Old myocardial infarction; Z51.81 Encounter for therapeutic drug level monitoring; Z86.73 Personal history of transient ischemic attack (TIA), and cerebral infarction without residual deficits; Z87.891 Personal history of nicotine dependence; Z79.01 Long term (current) use of anticoagulants; Z79.4 Long term (current) use of insulin; Z79.82 Long term (current) use of aspirin; Z79.899 Other long term (current) drug therapy; Z88.1 Allergy status to other antibiotic agents; Z88.8 Allergy status to other drugs, medicaments and biological substances; Z91.018 Allergy to other foods

== ENCOUNTER 2017-10-16 11:07 | Inpatient (IN) | payer OTHER, MEDICARE ==
[~2017-10-16] VITALS: Ht 185.4 cm; Wt 97.3 kg
[~2017-10-16 11:07] MED LIST changes: +ALBUAER2 INH; -AMOX1TAB43 PO; +BTP80 PO; -HYDR-4380 PO; +HYDR5SYP11 PO; +LSX20 PO; +NVLG; -NVLGI SC; +OXYC-57 PO; +ZFRODT4 SL
[2017-10-16] MEDS ORDERED: SODIUM CHLORIDE 0.9% 1000ML 2,000 ML IV STA (11:19)
[2017-10-16] MEDS ORDERED: ONDANSETRON INJ 2 MG/ML 2 ML VIAL IV STA (11:19)
[2017-10-16] MEDS ORDERED: OPTIRAY 320 IV PRN (11:30)
[2017-10-16 11:36] LABS: BASO % 0.4 %; BASO ABS # 0.04 K/uL (0-0.2); EOS ABS # 0.19 K/uL (0-0.5); HEMOGLOBIN 13.4 g/dL (14.0-18.0); IG# 0.03 K/uL (0.00-0.02); LYMPH % 12.5 %; LYMPH ABS # 1.17 K/uL (1.2-3.4); MEAN CELL VOLUME 83.2 fL (80-100); MEAN CORPUSCULAR HEMOGLOBIN 27.2 pg (25-34); MEAN CORPUSCULAR HGB CONC 32.7 g/dl (32-36); MONO ABS # 0.66 K/uL (0.11-0.59); NEUT % 77.8 %; PLATELET COUNT 303 K/uL (130-400); RED CELL DISTRIBUTION WIDTH CV 15.4 % (11.5-14.5); RED CELL DISTRIBUTION WIDTH SD 46.6 fL (36.4-46.3); WHITE BLOOD COUNT 9.39 K/uL (4.8-10.8)
[2017-10-16 12:19] LABS: CREATININE 1.41 mg/dl (0.60-1.40)
[2017-10-16 12:20] LABS: ALBUMIN 2.4 gm/dl (3.4-5.0); CALCIUM 8.9 mg/dl (8.5-10.1); POTASSIUM 2.8 mmol/L (3.5-5.1); TOTAL PROTEIN 8.1 gm/dl (6.4-8.2)
[2017-10-16] MEDS ORDERED: POTASSIUM CHLR 10 MEQ / WTR 10 MEQ in PREMIXED WATER 100 ML IV STA (12:39)
--- NOTE | 2017-10-16 12:57 | DIAGNOSTIC IMAGING REPORT ---
CT ABD/PELVIS IV CONTRAST ONLY CLINICAL HISTORY: abd pain w/ persistent vomiting COMPARISON STUDY: 01/09/2015 TECHNIQUE: Following the IV administration of 98 mL of Optiray-320, CT scan of the abdomen and pelvis was performed from the lung bases to the proximal femurs. Images are reviewed in the axial, sagittal, and coronal planes. IV contrast was administered without complication. A dose lowering technique was utilized adhering to the principles of ALARA. CT DOSE: 1125.86 mGy.cm FINDINGS: Lower chest: The heart is mildly enlarged. There are trace pleural effusions. There are progressive bilateral lower lobe airspace opacities. There are left lower lobe bronchiectatic changes. Liver: The contrast-enhanced liver is normal in size, contour, and attenuation. There is no intrahepatic biliary ductal dilatation. The hepatic veins and portal veins are patent. Gallbladder: Surgically absent Spleen: Normal in size and attenuation. Pancreas: Unremarkable. Adrenal glands: Unremarkable. Kidneys: No intrinsic renal masses are visualized. There is bilateral nonobstructing renal calculi. There are multiple persistent low density masses within the perirenal fat. Bowel: There are no transition zones to indicate bowel obstruction. There is no evidence of acute diverticulitis. Scattered colonic diverticula are present. There is a tiny lipoma versus enteric contents. The hepatic flexure. There are no findings to indicate acute appendicitis. Peritoneum: There is no intraperitoneal free air or abdominal ascites. Vasculature: The abdominal aorta is normal in course and caliber. Adenopathy: Borderline enlarged para-aortic lymph nodes remain stable Pelvic viscera: The prostate is enlarged Skeletal structures: No destructive osseous lesions are seen. IMPRESSION: 1. No evidence of bowel obstruction. No evidence of free air. 2. Diverticulosis. No evidence of acute diverticulitis. No evidence of acute appendicitis. 3. Progressive lower lobe airspace opacities with left lower lobe bronchiectasis 4. Bilateral nephrolithiasis 5. Persistent bilateral low density perirenal masses. There is a wide differential for this finding including among others, plasma cell neoplasms, angiomyolipomas, extra medullary hematopoiesis, and extra adrenal myelolipomas. 6. Stable borderline enlarged para-aortic lymph nodes Electronically signed by: Dillon Gaspar M.D. 10/16/2017 12:56 PM Dictated Date/Time: 10/16/2017 12:44 PM
[2017-10-16] MEDS ORDERED: PIPERACILLIN/TAZOBACTAM 4.5 GM/100ML D5W IV STA (13:12)
[2017-10-16 14:06] LABS: INR 4.6 (0.9-1.1)
[2017-10-16] MEDS ORDERED: SOTA80TA8 PO (14:08)
[2017-10-16] MEDS ORDERED: ACETAMINOPHEN 325 MG TAB PO PRN (14:45)
--- NOTE | 2017-10-16 15:11 | DIAGNOSTIC IMAGING REPORT ---
SINGLE VIEW CHEST CLINICAL HISTORY: Cough. Dyspnea. FINDINGS: An AP, portable, upright chest radiograph is compared to study dated 09/06/2017 and correlated with chest CT dated 10/08/2014. The examination is degraded by portable technique and patient rotation. The heart is top normal for projection and there is atherosclerotic calcification of the thoracic aorta. The pulmonary vasculature is noncongested. Chronic interstitial thickening is similar to previous. There is patchy airspace consolidation the left suprahilar region and at the left lung base. A small left pleural effusion is noted. Patchy airspace consolidation is also seen at the right lung base. No pneumothorax is seen. The skeletal structures are osteopenic. The bony thorax is grossly intact. IMPRESSION: 1. There is patchy airspace consolidation at both lung bases, left greater than right as well as in the left suprahilar region. The appearance suggests multifocal pneumonia. Radiographic follow-up to resolution is recommended to exclude underlying pulmonary lesion. 2. Small left pleural effusion. Electronically signed by: John Mackay M.D. 10/16/2017 3:10 PM Dictated Date/Time: 10/16/2017 3:08 PM
[2017-10-16] MEDS ORDERED: PIPERACILL/TAZOBAC CONSULT ACTIVE PRN (15:45)
[2017-10-16] MEDS ORDERED: GLUCAGON FOR INJ 1 MG VIAL SQ PRN (15:45)
[2017-10-16] MEDS ORDERED: GLUCOSE 40% GEL 15 GM TUBE PO PRN (15:45)
[2017-10-16] MEDS ORDERED: PHARMACY GLYCEMIC MGMT CONSULT PRN (15:45)
[2017-10-16] MEDS ORDERED: GLUCOSE 10 TABS/TUBE PO PRN (15:45)
[2017-10-16] MEDS ORDERED: DEXTROSE 50% 50 ML SYR IV PRN (15:45)
[2017-10-16] MEDS ORDERED: ALBUT/IPRATROP 3MG/0.5MG NEB 3 ML VIAL INH SCH (16:00)
[2017-10-16 16:41] VITALS: BP 102/57; PULSE 56; TEMP 36.4; O2SAT 99; Ht 185.4 cm; Wt 97.3 kg
--- NOTE | 2017-10-16 16:56 | History and Physical ---
History & Physical Date & Time of Service: Oct 16, 2017 ~ 14:15 Chief Complaint: Fall, vomiting, palpitations Primary Care Physician: Ron Mortensen D.O. History of Present Illness Source: patient 72-year-old male who presents to the ER after suffering a fall subsequent vomiting and palpitations. Patient reports he was walking in his apartment building when he tripped over his walker and fell to the ground. He reports that when he fell he had onset of palpitations. He also had an episode of vomiting. He denies any hematemesis or coffee-ground emesis. No chest pain or shortness of breath. He denies any preceding lightheadedness, dizziness, or syncope. Patient reports he has been feeling well recently. He has underlying COPD and reports chronic wheezing and cough. He reports this is unchanged from his baseline. No abdominal pain, nausea, or diarrhea. He denies any fevers or chills. No urinary symptoms. In the ED, patient was found to be pale, diaphoretic, and hypoxic. Patient improved with IVF and application of supplemental oxygen. CT ABD/pelvis is negative for acute abdominal findings. Chest x-ray shows bibasilar opacities suggestive of multifocal pneumonia. Currently no leukocytosis or fever. K+ is found to be 2.8. EKG shows slow atrial fibrillation with prolonged QTC. Patient was given IVF, IV Zosyn, and IV Zofran. Past Medical/Surgical History Medical Problems: (1) Atrial fibrillation and flutter Status: Chronic (2) Benign hypertension Status: Chronic (3) Cerebrovascular disease Permanent Comment: history of right caudate stroke Status: Chronic (4) Chronic kidney disease stage 3 Status: Chronic (5) Chronic obstructive lung disease Status: Chronic (6) Coronary artery disease Permanent Comment: S/P inferior ND, severe multivessel disease not amenable to intervention Status: Chronic (7) Diabetes mellitus type 2 Status: Chronic (8) GERD (gastroesophageal reflux disease) Status: Chronic (9) Gout Status: Chronic (10) History of - deep vein thrombosis Status: Chronic (11) History of - pulmonary embolus Status: Chronic (12) Hyperlipidemia Status: Chronic (13) Ischemic cardiomyopathy Status: Chronic Surgical Problems: (1) H/O toe surgery Permanent Comment: amputation left 3rd and 4th toe 03/2012 Status: Resolved (2) History of tonsillectomy Status: Resolved (3) S/P laparoscopic cholecystectomy Permanent Comment: Dr. Tang 12/2014 Status: Resolved Family History FH: cancer GRANDFATHER Social History Smoking Status: Former Smoker Alcohol Use: none Immunizations History of Influenza Vaccine: Yes Influenza Vaccine Date: Apr 05, 2017 History of Tetanus Vaccine?: Yes Tetanus Immunization Date: December 01, 2008 History of Pneumococcal: Yes Pneumococcal Date: Mar 09, 2015 Allergies Coded Allergies: Onion (Verified Allergy, Intermediate, RASH, 10/16/17) Levofloxacin (Verified Allergy, Mild, other, 10/16/17) ' Albuterol (Verified Adverse Reaction, Mild, 0, 10/16/17) cough syncope Ipratropium (Verified Adverse Reaction, Mild, 0, 10/16/17) cough syncope Home Medications Scheduled Allopurinol (Allopurinol), 300 MG PO DAILY Aspirin (Aspirin), 325 MG PO DAILY Furosemide (Furosemide), 20 MG PO BID Insulin Glargine (Lantus), 30 UNITS SC HS Isosorbide Dinitrate (Isordil), 40 MG PO DAILY Montelukast Sodium (Singulair), 10 MG PO QPM Primidone (Mysoline), 500 MG PO HS Ranitidine (Zantac), 150 MG PO BID Rosuvastatin Calcium (Crestor), 40 MG PO HS Sotalol Hcl (Afib/Afl) (Sotalol Hcl (Af)), 40 MG PO BID Warfarin Sod (Jantoven), 2 MG PO 2XWK Warfarin Sod (Jantoven), 4 MG PO 5XWK Scheduled PRN Hydrocodone W/ Homatropine (Hycodan 5/1.5MG 5 Ml), 5 ML PO HS PRN for Cough Nitroglycerin (Nitrostat), 0.4 MG UT UD PRN for Chest Pain Oxycodone/Acetaminophen 5MG/325MG (Percocet 5MG/325MG), 1 TABLET PO BID PRN for Pain Miscellaneous Medications Insulin Aspart (Novolog) Review of Systems ROS per HPI, all other systems reviewed and negative Physical Exam Vital Signs Date Time Temp Pulse Resp B/P (MAP) Pulse Ox O2 Delivery O2 Flow Rate FiO2 10/16/17 14:37 61 22 126/71 98 Nasal Cannula 2.0 10/16/17 14:16 35.0 10/16/17 13:31 60 22 140/90 100 Nasal Cannula 3.0 10/16/17 13:01 60 22 158/67 100 Nasal Cannula 4.0 10/16/17 12:27 60 22 96 Nasal Cannula 4.0 10/16/17 12:25 56 22 50 Room Air 10/16/17 12:12 56 80 10/16/17 12:07 63 10/16/17 12:07 55 94 10/16/17 12:02 54 92 10/16/17 12:01 56 18 134/64 94 10/16/17 11:57 48 99 10/16/17 11:52 55 15 100 10/16/17 11:51 58 133/64 92 Nasal Cannula 4.0 10/16/17 11:47 49 11 82 Room Air 10/16/17 11:42 59 21 10/16/17 11:37 54 19 94 10/16/17 11:32 56 13 94 10/16/17 11:27 55 15 93 10/16/17 11:22 63 20 129/69 96 Room Air 10/16/17 11:11 129/69 General Appearance: WD/WN, no apparent distress Head: normocephalic, atraumatic Eyes: normal inspection, EOMI, sclerae normal ENT: hearing grossly normal, + pertinent finding (Mucous membranes moist) Neck: supple, no JVD, trachea midline Respiratory/Chest: no respiratory distress, + rhonchi (Scattered), + wheezing ( Expiratory, scattered) Cardiovascular: + bradycardia (Heart rate in the 50s), + irregularly irregular , + pertinent finding (+1-2 edema BLLE) Abdomen/GI: normal bowel sounds, non tender, no organomegaly, + distended (Soft ) Extremities/Musculoskelatal: normal inspection, no calf tenderness, normal capillary refill Neurologic/Psych: no motor/sensory deficits, alert, normal mood/affect, oriented x 3 Skin: normal color, warm/dry Diagnostics Laboratory Results Results Past 24 Hours Test 10/16/17 11:18 10/16/17 11:20 10/16/17 13:42 10/16/17 13:44 Range/Units Bedside Glucose 137 70-99 mg/dl White Blood Count 9.39 4.8-10.8 K/uL Red Blood Count 4.93 4.7-6.1 M/uL Hemoglobin 13.4 14.0-18.0 g/dL Hematocrit 41.0 42-52 % Mean Corpuscular Volume 83.2 80-100 fL Mean Corpuscular Hemoglobin 27.2 25-34 pg Mean Corpuscular Hemoglobin Concent 32.7 32-36 g/dl Platelet Count 303 130-400 K/uL Mean Platelet Volume 9.0 7.4-10.4 fL Neutrophils (%) (Auto) 77.8 % Lymphocytes (%) (Auto) 12.5 % Monocytes (%) (Auto) 7.0 % Eosinophils (%) (Auto) 2.0 % Basophils (%) (Auto) 0.4 % Neutrophils # (Auto) 7.30 1.4-6.5 K/uL Lymphocytes # (Auto) 1.17 1.2-3.4 K/uL Monocytes # (Auto) 0.66 0.11-0.59 K/uL Eosinophils # (Auto) 0.19 0-0.5 K/uL Basophils # (Auto) 0.04 0-0.2 K/uL RDW Standard Deviation 46.6 36.4-46.3 fL RDW Coefficient of Variation 15.4 11.5-14.5 % Immature Granulocyte % (Auto) 0.3 % Immature Granulocyte # (Auto) 0.03 0.00-0.02 K/uL Sodium Level 133 136-145 mmol/L Potassium Level 2.8 3.5-5.1 mmol/L Chloride Level 95 98-107 mmol/L Carbon Dioxide Level 25 21-32 mmol/L Anion Gap 13.0 3-11 mmol/L Blood Urea Nitrogen 15 7-18 mg/dl Creatinine 1.41 0.60-1.40 mg/dl Est Creatinine Clear Calc Drug Dose 59.8 ml/min Estimated GFR () 58.1 Estimated GFR (Non- 50.1 BUN/Creatinine Ratio 10.6 10-20 Random Glucose 147 70-99 mg/dl Calcium Level 8.9 8.5-10.1 mg/dl Magnesium Level 1.7 1.8-2.4 mg/dl Total Bilirubin 0.9 0.2-1 mg/dl Direct Bilirubin 0.4 0-0.2 mg/dl Aspartate Amino Transf (AST/SGOT) 38 15-37 U/L Alanine Aminotransferase (ALT/SGPT) 17 12-78 U/L Alkaline Phosphatase 214 45-117 U/L Total Protein 8.1 6.4-8.2 gm/dl Albumin 2.4 3.4-5.0 gm/dl Lipase 64 73-393 U/L Bedside Lactic Acid Venous 1.54 0.90-1.70 mmol/L Prothrombin Time 46.8 9.0-12.0 SECONDS Prothromb Time International Ratio 4.6 0.9-1.1 Test 10/16/17 14:25 10/16/17 16:19 Range/Units Urine Color YELLOW Urine Appearance CLEAR CLEAR Urine pH 7.5 4.5-7.5 Urine Specific [place] 1.022 1.000-1.030 Urine Protein NEG NEG Urine Glucose (UA) NEG NEG Urine Ketones NEG NEG Urine Occult Blood TRACE NEG Urine Nitrite NEG NEG Urine Bilirubin NEG NEG Urine Urobilinogen NEG NEG Urine Leukocyte Esterase NEG NEG Urine WBC (Auto) 1-5 0-5 /hpf Urine RBC (Auto) 0-4 0-4 /hpf Urine Hyaline Casts (Auto) 1-5 0-5 /lpf Urine Epithelial Cells (Auto) 20-30 0-5 /lpf Urine Bacteria (Auto) NEG NEG Diagnostic Radiology ABD/PELVIS CT IMPRESSION: 1. No evidence of bowel obstruction. No evidence of free air. 2. Diverticulosis. No evidence of acute diverticulitis. No evidence of acute appendicitis. 3. Progressive lower lobe airspace opacities with left lower lobe bronchiectasis 4. Bilateral nephrolithiasis 5. Persistent bilateral low density perirenal masses. There is a wide differential for this finding including among others, plasma cell neoplasms, angiomyolipomas, extra medullary hematopoiesis, and extra adrenal myelolipomas. 6. Stable borderline enlarged para-aortic lymph nodes CXR IMPRESSION: 1. There is patchy airspace consolidation at both lung bases, left greater than right as well as in the left suprahilar region. The appearance suggests multifocal pneumonia. Radiographic follow-up to resolution is recommended to exclude underlying pulmonary lesion. 2. Small left pleural effusion. Impression Assessment and Plan Multifocal pneumonia, possible aspiration COPD exacerbation -Admit to telemetry -Patient presenting from home where he suffered a mechanical fall and had subsequent palpitations and vomiting; in the ED patient was pale, diaphoretic, and hypoxic and symptoms improved with application of supplemental oxygen and IV fluids -Chest x-ray showing a multifocal pneumonia, question possible aspiration with vomiting today -S/P Zosyn in the ED, will continue with; will check MRSA nasal swab and a positive will add vancomycin -Do not suspect sepsis -Patient refusing nebulizer treatments -Will start prednisone 40 mg 5 days -Flutter valve to help mobilize secretions Atrial fibrillation Prolonged QTC -Patient admitted in August 2017 for new onset atrial fibrillation and underwent cardioversion and sotalol loading to maintain sinus rhythm -Patient was seen in the cardiology clinic on 09/25 and had sotalol dose decreased due to bradycardia -Noted QTC on 09/25 was 467; QTC 547 today -Will hold sotalol -Case discussed with Dr. Suarez -Anticoagulated on Coumadin, INR 4.7 today; no signs of bleeding, will hold Coumadin today and check INR daily and adjust accordingly DM II -Hgb A1c 8.0 09/2017 -Continue NovoLog and Lantus History of CAD, ischemic cardiomyopathy -Appears stable, no reports of chest pain -Will cycle cardiac enzymes -Continue aspirin, statin, and nitrate History DVT/PE -Coumadin as above History of CVA -Continue aspirin Renal abnormality -CT ABD/pelvis shows: Persistent bilateral low density perirenal masses. There is a wide differential for this finding including among others, plasma cell neoplasms, angiomyolipomas, extra medullary hematopoiesis, and extra adrenal myelolipomas. -Recommend outpatient follow-up DVT prophylaxis -Anticoagulated on Coumadin, INR 4.7 CODE STATUS -Patient is a full code as per my discussion with him Disposition -In my clinical judgment this beneficiary meets acute admission criteria, established by [facility], that includes being hospitalized through two midnights. Attending Note: Patient is a 72 yr male with multiple comorbidities presents with history of mechanical fall, nausea, vomiting, palpitations, diaphoresis, associated SOB, chronic cough as per HPI. Patient is a poor historian. Denies head trauma, LOC, dizziness. He has H/O COPD/Bronchiectasis and currently not on maintenance inhalers/Nebs secondary to Intolerance. CXR is suggestive of Multifocal Pneumonia. He has possible Tachybrady syndrome and would likely require pacemaker placement. Patient is found to be Hypoxic, hypokalemia, Hypomagnesemia , Serotherapeutic INR, Prolonged QTC on EKG and received Zofran in ED . Physical Exam: Vitals signs as noted above General Appearance:Moderately built and nourished, no apparent distress Head: normocephalic, Atraumatic Eyes: normal inspection, EOMI, PERRL Neck: supple, Trachea midline Respiratory/Chest: Coarse breath sounds, B/L wheezing, Rhonchi Cardiovascular: Irregularly, Irregular, No murmur Abdomen/GI:Soft, Non tender, Bowel sounds present Extremities/Musculoskelatal:normal inspection, Trace edema Neurologic/Psych:AAOX3, grossly no focal neurological deficits Skin:normal color,warm Assessment and Plan: Multifocal Pneumonia Possible Aspiration Acute on chronic COPD exacerbation IV Vanco, Zosyn Oxygen support Refuses Nebs secondary to Intolerance in the past Possible Tachybrady Syndrome: H/O P. atrial flutter May need Pacemaker Cardiology consulted Sotalol held 2/2 Bradycardia, Prolonged QTC Hold Coumadin secondary to Supra therapeutic INR Hypokalemia/Hypomagnesemia: Replace and monitor H/O PE/DVT: resume Coumadin as able Perirenal Mass: Work up as outpatient I personally reviewed the record. Patient is interviewed and examined at bedside. Patient's care is coordinated with Pauline Larsen [employer]. Please refer to the documentation above for details of patient's presentation and for discussion of other issues. Resuscitation Status VTE Prophylaxis Will order VTE Prophylaxis: Yes
[2017-10-16] MEDS ORDERED: SODIUM CHLORIDE 0.9% 1000ML 1,000 ML IV SCH (17:00)
--- NOTE | 2017-10-16 17:07 | EMERGENCY ROOM VISIT NOTE ---
History Report prepared by Maria Fernanda: Kavita Rios Under the Supervision of: Dr. Manuel Orosco D.O. First contact with patient: 11:13 Chief Complaint: VOMITING Stated Complaint: VOMITING History of Present Illness The patient is a 72 year old male who presents to the Emergency Room with complaints of constant vomiting beginning this morning. No exacerbating or remitting factors. He denies any abdominal pain. The patient's last bowel movement was yesterday and he reports it was normal. He denies any recent sick contact. The patient has a history of a cholecystectomy and an appendectomy. He notes sweating with the onset of his vomiting. Pt denies headache, change in vision, fevers, chest pain, shortness of breath, nausea, abdominal pain, diarrhea, pain with urination, and melena. Source of History: patient Onset: this morning Position: other (generalized) Quality: other (vomiting) Timing: constant Associated Symptoms: + diaphoresis, + vomiting, No chest pain, No SOB, No nausea, No abdominal pain, No diarrhea, No urinary symptoms Review of Systems See HPI for pertinent positives & negatives. A total of 10 systems reviewed and were otherwise negative. Past Medical & Surgical Medical Problems: (1) Atrial fibrillation and flutter (2) Benign hypertension (3) Cerebrovascular disease (4) Chronic kidney disease stage 3 (5) Chronic obstructive lung disease (6) Coronary artery disease (7) Diabetes mellitus type 2 (8) GERD (gastroesophageal reflux disease) (9) Gout (10) History of - deep vein thrombosis (11) History of - pulmonary embolus (12) Hyperlipidemia (13) Ischemic cardiomyopathy Surgical Problems: (1) H/O toe surgery (2) History of tonsillectomy (3) S/P laparoscopic cholecystectomy Family History Diabetes mellitus Heart disease Social History Smoking Status: Former Smoker Alcohol Use: occasionally Drug Use: none Marital Status: Housing Status: lives with significant other Occupation Status: retired Current/Historical Medications Scheduled Allopurinol (Allopurinol), 300 MG PO DAILY Aspirin (Aspirin), 325 MG PO DAILY Furosemide (Furosemide), 20 MG PO BID Insulin Glargine (Lantus), 30 UNITS SC HS Isosorbide Dinitrate (Isordil), 40 MG PO DAILY Montelukast Sodium (Singulair), 10 MG PO QPM Primidone (Mysoline), 500 MG PO HS Ranitidine (Zantac), 150 MG PO BID Rosuvastatin Calcium (Crestor), 40 MG PO HS Sotalol Hcl (Afib/Afl) (Sotalol Hcl (Af)), 40 MG PO BID Warfarin Sod (Jantoven), 2 MG PO 2XWK Warfarin Sod (Jantoven), 4 MG PO 5XWK Scheduled PRN Hydrocodone W/ Homatropine (Hycodan 5/1.5MG 5 Ml), 5 ML PO HS PRN for Cough Nitroglycerin (Nitrostat), 0.4 MG UT UD PRN for Chest Pain Oxycodone/Acetaminophen 5MG/325MG (Percocet 5MG/325MG), 1 TABLET PO BID PRN for Pain Miscellaneous Medications Insulin Aspart (Novolog) Allergies Coded Allergies: Onion (Verified Allergy, Intermediate, RASH, 10/16/17) Levofloxacin (Verified Allergy, Mild, other, 10/16/17) ' Albuterol (Verified Adverse Reaction, Mild, 0, 10/16/17) cough syncope Ipratropium (Verified Adverse Reaction, Mild, 0, 10/16/17) cough syncope Physical Exam Vital Signs Date Time Temp Pulse Resp B/P (MAP) Pulse Ox O2 Delivery O2 Flow Rate FiO2 10/16/17 14:37 61 22 126/71 98 Nasal Cannula 2.0 10/16/17 14:16 35.0 10/16/17 13:31 60 22 140/90 100 Nasal Cannula 3.0 10/16/17 13:01 60 22 158/67 100 Nasal Cannula 4.0 10/16/17 12:27 60 22 96 Nasal Cannula 4.0 10/16/17 12:25 56 22 50 Room Air 10/16/17 12:12 56 80 10/16/17 12:07 63 10/16/17 12:07 55 94 10/16/17 12:02 54 92 10/16/17 12:01 56 18 134/64 94 10/16/17 11:57 48 99 10/16/17 11:52 55 15 100 10/16/17 11:51 58 133/64 92 Nasal Cannula 4.0 10/16/17 11:47 49 11 82 Room Air 10/16/17 11:42 59 21 10/16/17 11:37 54 19 94 10/16/17 11:32 56 13 94 4/2/18 11:27 55 15 93 10/16/17 11:22 63 20 129/69 96 Room Air 10/16/17 11:11 129/69 Physical Exam GENERAL: Sitting up in bed, alert, ill appearing,diaphoretic, no distress, non- toxic EYE EXAM: normal conjunctiva. OROPHARYNX: no exudate, no erythema, lips, buccal mucosa, and tongue normal and mucous membranes are moist NECK: supple, no nuchal rigidity, no adenopathy, non-tender LUNGS: Clear to auscultation. Normal chest wall mechanics HEART: no murmurs, S1 normal and S2 normal ABDOMEN: abdomen soft, non-tender, normo-active bowel sounds, no masses, no rebound or guarding. BACK: Back is symmetrical on inspection and there is no deformity, no midline tenderness, no CVA tenderness. SKIN: no rashes and no bruising UPPER EXTREMITIES: upper extremities are grossly normal. LOWER EXTREMITIES: No pitting edema. NEURO EXAM: Normal sensorium, cranial nerves II-XII grossly intact, normal speech, no gross weakness of arms, no gross weakness of legs. Medical Decision & Procedures ER Provider Diagnostic Interpretation: Radiology results as stated below per my review and the radiologist's interpretation: CT ABD/PELVIS IV CONTRAST ONLY FINDINGS: Lower chest: The heart is mildly enlarged. There are trace pleural effusions. There are progressive bilateral lower lobe airspace opacities. There are left lower lobe bronchiectatic changes. Liver: The contrast-enhanced liver is normal in size, contour, and attenuation. There is no intrahepatic biliary ductal dilatation. The hepatic veins and portal veins are patent. Gallbladder: Surgically absent Spleen: Normal in size and attenuation. Pancreas: Unremarkable. Adrenal glands: Unremarkable. Kidneys: No intrinsic renal masses are visualized. There is bilateral nonobstructing renal calculi. There are multiple persistent low density masses within the perirenal fat. Bowel: There are no transition zones to indicate bowel obstruction. There is no evidence of acute diverticulitis. Scattered colonic diverticula are present. There is a tiny lipoma versus enteric contents. The hepatic flexure. There are no findings to indicate acute appendicitis. Peritoneum: There is no intraperitoneal free air or abdominal ascites. Vasculature: The abdominal aorta is normal in course and caliber. Adenopathy: Borderline enlarged para-aortic lymph nodes remain stable Pelvic viscera: The prostate is enlarged Skeletal structures: No destructive osseous lesions are seen. IMPRESSION: 1. No evidence of bowel obstruction. No evidence of free air. 2. Diverticulosis. No evidence of acute diverticulitis. No evidence of acute appendicitis. 3. Progressive lower lobe airspace opacities with left lower lobe bronchiectasis 4. Bilateral nephrolithiasis 5. Persistent bilateral low density perirenal masses. There is a wide differential for this finding including among others, plasma cell neoplasms, angiomyolipomas, extra medullary hematopoiesis, and extra adrenal myelolipomas. 6. Stable borderline enlarged para-aortic lymph nodes Electronically signed by: Dillon Gaspar M.D. Laboratory Results 10/16/17 11:20 Red Blood Count 4.93, Mean Corpuscular Volume 83.2, Mean Corpuscular Hemoglobin 27.2, Mean Corpuscular Hemoglobin Concent 32.7, Mean Platelet Volume 9.0, Neutrophils (%) (Auto) 77.8, Lymphocytes (%) (Auto) 12.5, Monocytes (%) (Auto) 7.0, Eosinophils (%) (Auto) 2.0, Basophils (%) (Auto) 0.4, Neutrophils # (Auto) 7.30, Lymphocytes # (Auto) 1.17, Monocytes # (Auto) 0.66, Eosinophils # (Auto) 0.19, Basophils # (Auto) 0.04 10/16/17 11:20 Test 10/16/17 11:18 10/16/17 11:20 10/16/17 13:42 10/16/17 13:44 Bedside Glucose 137 mg/dl (70-99) White Blood Count 9.39 K/uL (4.8-10.8) Red Blood Count 4.93 M/uL (4.7-6.1) Hemoglobin 13.4 g/dL (14.0-18.0) Hematocrit 41.0 % (42-52) Mean Corpuscular Volume 83.2 fL (80-100) Mean Corpuscular Hemoglobin 27.2 pg (25-34) Mean Corpuscular Hemoglobin Concent 32.7 g/dl (32-36) Platelet Count 303 K/uL (130-400) Mean Platelet Volume 9.0 fL (7.4-10.4) Neutrophils (%) (Auto) 77.8 % Lymphocytes (%) (Auto) 12.5 % Monocytes (%) (Auto) 7.0 % Eosinophils (%) (Auto) 2.0 % Basophils (%) (Auto) 0.4 % Neutrophils # (Auto) 7.30 K/uL (1.4-6.5) Lymphocytes # (Auto) 1.17 K/uL (1.2-3.4) Monocytes # (Auto) 0.66 K/uL (0.11-0.59) Eosinophils # (Auto) 0.19 K/uL (0-0.5) Basophils # (Auto) 0.04 K/uL (0-0.2) RDW Standard Deviation 46.6 fL (36.4-46.3) RDW Coefficient of Variation 15.4 % (11.5-14.5) Immature Granulocyte % (Auto) 0.3 % Immature Granulocyte # (Auto) 0.03 K/uL (0.00-0.02) Anion Gap 13.0 mmol/L (3-11) Est Creatinine Clear Calc Drug Dose 59.8 ml/min Estimated GFR () 58.1 Estimated GFR (Non- 50.1 BUN/Creatinine Ratio 10.6 (10-20) Calcium Level 8.9 mg/dl (8.5-10.1) Magnesium Level 1.7 mg/dl (1.8-2.4) Total Bilirubin 0.9 mg/dl (0.2-1) Direct Bilirubin 0.4 mg/dl (0-0.2) Aspartate Amino Transf (AST/SGOT) 38 U/L (15-37) Alanine Aminotransferase (ALT/SGPT) 17 U/L (12-78) Alkaline Phosphatase 214 U/L (45-117) Troponin I < 0.015 ng/ml (0-0.045) Total Protein 8.1 gm/dl (6.4-8.2) Albumin 2.4 gm/dl (3.4-5.0) Lipase 64 U/L (73-393) Bedside Lactic Acid Venous 1.54 mmol/L (0.90-1.70) Prothrombin Time 46.8 SECONDS (9.0-12.0) Prothromb Time International Ratio 4.6 (0.9-1.1) Test 10/16/17 14:25 Urine Color YELLOW Urine Appearance CLEAR (CLEAR) Urine pH 7.5 (4.5-7.5) Urine Specific [place] 1.022 (1.000-1.030) Urine Protein NEG (NEG) Urine Glucose (UA) NEG (NEG) Urine Ketones NEG (NEG) Urine Occult Blood TRACE (NEG) Urine Nitrite NEG (NEG) Urine Bilirubin NEG (NEG) Urine Urobilinogen NEG (NEG) Urine Leukocyte Esterase NEG (NEG) Urine WBC (Auto) 1-5 /hpf (0-5) Urine RBC (Auto) 0-4 /hpf (0-4) Urine Hyaline Casts (Auto) 1-5 /lpf (0-5) Urine Epithelial Cells (Auto) 20-30 /lpf (0-5) Urine Bacteria (Auto) NEG (NEG) Laboratory results per my review. Medications Administered Medications (Trade) Dose Ordered Sig/Kendrick Route Start Time Stop Time Status Last Admin Dose Admin Sodium Chloride 2,000 ml @ 999 mls/hr Q2H1M STAT IV 10/16/17 11:19 10/16/17 13:19 DC 10/16/17 11:34 999 MLS/HR Ondansetron HCl (Zofran Inj) 4 mg NOW STAT IV 10/16/17 11:19 10/16/17 11:21 DC 10/16/17 11:34 4 MG Potassium Chloride 10 meq/ Prmx 100 ml @ 100 mls/hr NOW STAT IV 10/16/17 12:39 10/16/17 13:38 DC 10/16/17 12:58 100 MLS/HR Piperacillin Sod/ Tazobactam Sod (Zosyn Iv) 4.5 gm NOW STAT IV 10/16/17 13:12 10/16/17 13:13 DC 10/16/17 13:29 4.5 GM ECG Per My Interpretation Indication: vomiting Rate (beats per minute): 57 Rhythm: atrial fibrillation Findings: other (normal axis, poor baseline ) Comparison ECG Date: 09/11/17 ED Course ED COURSE: Vital signs were reviewed and showed hypoxic The patients medical record was reviewed The above diagnostic studies were performed and reviewed. ED treatments and interventions as stated above. 1116: The patient was evaluated in room C3. A complete history and physical examination was performed. 1119: Ordered Zofran Inj 4 mg IV, Sodium Chloride 2000 ml @ 999 mls/hr IV. 1239: Ordered Potassium Chloride 10 meq/Prmx 100 ml @ 100 mls/hr IV. 1312: Ordered Zosyn IV 4.5 gm IV. 1340: I reviewed the patient's case with Pauline Posadas. She will evaluate the patient for further management. 1355: Upon reevaluation, the patient is resting comfortably.I discussed my findings with the patient and he understands and agrees with the treatment plan. Based on the patients age, coexisting illnesses, exam and lab findings the decision to treat as an inpatient was made. The patient remained stable while under my care. The patient will be evaluated for further management. Medical Decision Differential diagnoses includes but is not limited to gastritis, peptic ulcer disease, GERD, gallbladder disease, pancreatitis, small bowel obstruction, acute coronary syndrome, pericarditis, ischemic bowel, irritable bowel disease, irritable bowel syndrome, appendicitis, diverticulitis, malignancy, hernia, urinary tract infection, torsion, perforation, trauma, infectious. Patient is a 72-year-old male who presents the ER with vomiting that has been present since this morning. Upon presentation he is diaphoretic and ill- appearing. He does drop his pulse ox into the low 80s intermittently. CBC was unremarkable. BMP with a potassium of 2.8 and a sodium of 133. Bilirubin and LFTs were not significantly elevated. Lipase is normal. INR was elevated at 4.6. UA was negative. CT of the abdomen and pelvis shows likely bilateral aspiration pneumonia. Patient was covered with IV Zosyn. He is given fluids. He was updated at bedside and admitted to internal medicine for further workup. Medication Reconcilliation Current Medication List: was personally reviewed by me Blood Pressure Screening Patient's blood pressure: Elevated blood pressure Blood pressure disposition: Elevated BP felt to be situational Consults Time Called: 1335 Consulting Physician: Pauline Posadas. Returned Call: [phone] I reviewed the patient's case with Pauline Posadas. She will evaluate the patient for further management. Impression Primary Impression: Aspiration pneumonia Additional Impressions: Vomiting Hypoxia Scribe Attestation The scribe's documentation has been prepared under my direction and personally reviewed by me in its entirety. I confirm that the note above accurately reflects all work, treatment, procedures, and medical decision making performed by me. Departure Information Dispostion Being Evaluated By Hospitalist Ron Apple D.O. (PCP) Patient Instructions My [facility] Problem Qualifiers Primary Impression: Aspiration pneumonia Aspiration pneumonia type: unspecified Laterality: bilateral Lung location : unspecified part of lung Qualified Codes: J69.0 - Pneumonitis due to inhalation of food and vomit Additional Impressions: Vomiting Vomiting type: unspecified Vomiting Intractability: unspecified Nausea presence: unspecified Qualified Codes: R11.10 - Vomiting, unspecified
[2017-10-16] MEDS: MAGNESIUM SULFATE 1GM / D5W 1 GM in PREMIXED IN D5W 100 ML IV SCH ×2 (17:12→19:47)
[2017-10-16] MEDS: POTASSIUM CHLR 10 MEQ / WTR 10 MEQ in PREMIXED WATER 100 ML IV SCH ×2 (17:12→19:47)
[2017-10-16] MEDS ORDERED: POTASSIUM CHLORIDE 20 MEQ TABCR PO ONE (17:15)
[2017-10-16] MEDS: INSULIN ASPART 100 UNITS/ML 3 ML PEN SC SCH ×2 (17:53→21:14)
[2017-10-16] MEDS ORDERED: VANCOMYCIN CONSULT ACTIVE PRN (19:15)
[2017-10-16] MEDS ORDERED: VANCOMYCIN IV 2,250 MG in SODIUM CHLORIDE 0.9% 500ML 500 ML IV SCH (19:30)
[2017-10-16 19:31] VITALS: BP 99/63; PULSE 52; TEMP 36.3; O2SAT 97
[2017-10-16 20:00] VITALS: O2SAT 99
[2017-10-16] MEDS ORDERED: INSULIN GLARGINE SOLOSTAR 100 UNITS/ML 3 ML PEN SC SCH (21:00)
[2017-10-16] MEDS: PIPERACILL/TAZOBAC IV 3.375 GM in DEXTROSE 5% 100ML IV SCH (21:04)
[2017-10-16] MEDS: ROSUVASTATIN CALCIUM 20 MG TAB PO SCH (21:09)
[2017-10-16] MEDS: MONTELUKAST SOD 10 MG TAB PO SCH (21:10)
[2017-10-16] MEDS: RANITIDINE HCL 150 MG TAB PO SCH (21:10)
[2017-10-16] MEDS: PRIMIDONE 250 MG TAB PO SCH (21:10)
--- NOTE | 2017-10-16 21:44 | Pharmacy Progress Note ---
Pharmacy Abx Initial Consult Date of Service Oct 16, 2017. Pharmacy Dosing Scope Date of Consult: 10/16/17 Consultation requested by: Pauline REYES Pharmacy is consulted to initiate Zosyn and Vancomycin IV dosing therapy, order appropriate labs and adjust drug dose/frequency. Subjective The patient is a 72 year old male admitted on Oct 16, 2017 at 14:44 who had a fall with his walker today due to palpitations. He presented to the ED afterwards and denies feeling ill, fever, chills or breathing problems. He does have underlying COPD and upon chest xray it shows he has a PNX. He is started on Zosyn by Pauline REYES and after MRSA swab returns positive Vancomycin IV is added. Objective Height (Feet): 6 Height (Inches): 1.00 Weight (Kilograms): 97.100 Vital Signs (Past 12Hrs) Vital Signs Past 12 Hours Date Time Temp Pulse Resp B/P (MAP) Pulse Ox O2 Delivery O2 Flow Rate FiO2 10/16/17 19:31 36.3 52 20 99/63 (75) 97 Nasal Cannula 1.0 10/16/17 16:41 36.4 56 22 102/57 99 Nasal Cannula 1.0 10/16/17 14:37 61 22 126/71 98 Nasal Cannula 2.0 10/16/17 14:16 35.0 10/16/17 13:31 60 22 140/90 100 Nasal Cannula 3.0 10/16/17 13:01 60 22 158/67 100 Nasal Cannula 4.0 10/16/17 12:27 60 22 96 Nasal Cannula 4.0 10/16/17 12:25 56 22 50 Room Air 10/16/17 12:12 56 80 10/16/17 12:07 63 10/16/17 12:07 55 94 10/16/17 12:02 54 92 10/16/17 12:01 56 18 134/64 94 10/16/17 11:57 48 99 10/16/17 11:52 55 15 100 10/16/17 11:51 58 133/64 92 Nasal Cannula 4.0 10/16/17 11:47 49 11 82 Room Air 10/16/17 11:42 59 21 10/16/17 11:37 54 19 94 10/16/17 11:32 56 13 94 10/16/17 11:27 55 15 93 10/16/17 11:22 63 20 129/69 96 Room Air 10/16/17 11:11 129/69 Lab Results (24Hrs) Laboratory Tests (24 Hours) Test 10/16/17 11:20 White Blood Count 9.39 K/uL (4.8-10.8) Red Blood Count 4.93 M/uL (4.7-6.1) Hemoglobin 13.4 g/dL (14.0-18.0) L Hematocrit 41.0 % (42-52) L Mean Corpuscular Volume 83.2 fL (80-100) Mean Corpuscular Hemoglobin 27.2 pg (25-34) Mean Corpuscular Hemoglobin Concent 32.7 g/dl (32-36) Platelet Count 303 K/uL (130-400) Mean Platelet Volume 9.0 fL (7.4-10.4) Neutrophils (%) (Auto) 77.8 % Lymphocytes (%) (Auto) 12.5 % Monocytes (%) (Auto) 7.0 % Eosinophils (%) (Auto) 2.0 % Basophils (%) (Auto) 0.4 % Neutrophils # (Auto) 7.30 K/uL (1.4-6.5) H Lymphocytes # (Auto) 1.17 K/uL (1.2-3.4) L Monocytes # (Auto) 0.66 K/uL (0.11-0.59) H Eosinophils # (Auto) 0.19 K/uL (0-0.5) Basophils # (Auto) 0.04 K/uL (0-0.2) Micro Results Date/Time Source Procedure Growth Status 10/16/17 00:00 Nasal MRSA DNA Surveillance Screen - Final Specimen Positive for MRSA by DNA Probe Complete Assessment & Plan Assessment 72 year old male with PNX and positive MRSA swab. Plan Vancomycin IV * Loading dose: 2250 mg (23 mg/kg) * Maintenance dose: 1500 mg IV (15 mg/kg) every 14 hours * Goal trough level : 15 to 20 mcg/mL * Trough level ordered prior to 0800 dose on 10/19/17 * I feel that patients renal function will most likely improve and we will increase frequency as needed down the road. Piperacillin/tazobactam * 4.5 g bolus administered over 30 minutes, then 3.375 g IV extended infusion every 8 hours for CrCl greater than 20 mL/min Pharmacy will continue to follow and will adjust dose/frequency as necessary. Thank you.
[2017-10-16 23:51] VITALS: BP 94/54; PULSE 61; TEMP 36.8; O2SAT 93
[2017-10-17] VITALS (11 sets, daily range): BP systolic 87–99; BP diastolic 54–62; PULSE 53–66; TEMP 36.3–36.7; O2SAT 91–98
[2017-10-17] MEDS ORDERED: INSULIN ASPART 100 UNITS/ML 3 ML PEN SC SCH (02:00)
[2017-10-17] MEDS: PIPERACILL/TAZOBAC IV 3.375 GM in DEXTROSE 5% 100ML IV SCH ×2 (03:38→13:00)
[2017-10-17 04:39] LABS: HEMATOCRIT 35.9 % (42-52); HEMOGLOBIN 11.5 g/dL (14.0-18.0); MEAN CELL VOLUME 85.1 fL (80-100); MEAN CORPUSCULAR HEMOGLOBIN 27.3 pg (25-34); MEAN PLATELET VOLUME 9.4 fL (7.4-10.4); PLATELET COUNT 257 K/uL (130-400); RED CELL DISTRIBUTION WIDTH CV 15.7 % (11.5-14.5); RED CELL DISTRIBUTION WIDTH SD 48.7 fL (36.4-46.3); WHITE BLOOD COUNT 8.85 K/uL (4.8-10.8)
[2017-10-17 04:57] LABS: BLOOD UREA NITROGEN 17 mg/dl (7-18); CALCIUM 8.2 mg/dl (8.5-10.1); CARBON DIOXIDE 28 mmol/L (21-32); CREATININE 1.26 mg/dl (0.60-1.40); GLUCOSE 84 mg/dl (70-99); SODIUM 135 mmol/L (136-145)
[2017-10-17] MEDS: INSULIN ASPART 100 UNITS/ML 3 ML PEN SC SCH ×4 (07:00→21:17)
[2017-10-17] MEDS: RANITIDINE HCL 150 MG TAB PO SCH ×2 (08:38→21:14)
[2017-10-17] MEDS: ISOSORBIDE DINITRATE 40 MG TAB PO SCH (08:39)
[2017-10-17] MEDS: ALLOPURINOL 300 MG TAB PO SCH (08:39)
[2017-10-17] MEDS: ASPIRIN 325 MG ECTAB PO SCH (08:39)
--- NOTE | 2017-10-17 09:52 | DIAGNOSTIC IMAGING REPORT ---
RIBS BILATERAL MIN 3 VIEWS CLINICAL HISTORY: 72 years-old Male presenting with chest pain, recent fall. TECHNIQUE: Frontal and oblique views of the bilateral ribs were obtained. COMPARISON: Chest x-ray from the previous day. FINDINGS: Old unhealed rib fractures versus prior thoracotomy defects of the posterior lateral right seventh, eighth and 11th ribs. Old healed rib fracture of the posterior lateral right third through sixth ribs noted. No convincing evidence of an acute right rib fracture. No displaced left rib fracture. Atherosclerosis of the aortic arch. Minimal bibasilar opacities greater on the left, likely atelectasis. Cholecystectomy clips noted. Moderate stool burden. IMPRESSION: 1. Multiple old right rib deformities. 2. No convincing evidence of acute displaced right or left rib fracture. 3. Suspected bibasilar atelectasis greater on the left. Electronically signed by: Manuel Bryant M.D. 10/17/2017 9:50 AM Dictated Date/Time: 10/17/2017 9:47 AM
--- NOTE | 2017-10-17 10:19 | Clinical Documentation Query ---
CLINICAL DOCUMENTATION QUERY 72 year old male who present with likely aspiration pneumonia. Patient has a past medical hx of CAD with Ischemic cardiomyopathy. Patient remains on PO Lasix. In your clinical opinion is this patient being managed for: ( ) Chronic systolic heart failure ( ) Not Agree ( x ) Other explanation of clinical findings: Ischemic Cardiomyopathy. Systolic HF relates to EF<40% which is not the case here. ( ) Unable to determine (Please Define) ( ) Need to Discuss The medical record reflects the following clinical findings, treatment, and risk factors. Clinical Indicators: As above. EF 45% by past records. Treatment: Lasix, telemetry, I/O's, daily weights, Risk Factors: Age, CAD, ischemic cardiomyopathy. Please clarify and document your clinical opinion in the progress notes and discharge summary. Terms such as "probable", "suspected", "likely", "questionable", "possible", or "still to be ruled out" are acceptable. IF IN AGREEMENT, YOU MUST DOCUMENT ABOVE DIAGNOSTIC STATEMENT IN DAILY PROGRESS NOTES AND DISCHARGE SUMMARY. This document is not part of the patient's record. Thank You, Deni Scott, RN [phone]
[2017-10-17] MEDS: OXYCODONE/ACETAMINOPHEN 5-325 TAB PO PRN (10:21)
--- NOTE | 2017-10-17 11:04 | CARDIOLOGY CONSULTATION ---
DATE OF CONSULTATION: 10/16/2017 CONSULTATION REQUESTED BY: AMY Barron. REASON FOR CONSULTATION: Prolonged QT interval on sotalol therapy. HISTORY OF PRESENT ILLNESS: Mr. Canseco is a very pleasant 72-year-old gentleman who follows very closely as an outpatient with me for his history of coronary artery disease and paroxysmal atrial fibrillation. He presented to [facility] Emergency Department on 10/16/2017 after a fall. The patient states that he had some trouble with his walker today and he tripped and fell over onto his left side. He states that this was a purely mechanical fall that he tripped and he denied experiencing any lightheadedness, dizziness or syncope. The patient states he simply tipped over on the left side. He did note that he fell to the ground and his left arm was concealed under his left chest and he fell directly onto his arm. He is not having any chest pain at this time. He did have some palpitations at the time of the fall but thinks he was just upset and he did become nauseous and started vomiting. He presented to [facility] for further evaluation. A 12-lead EKG was performed which showed a QT interval of 547 milliseconds. His potassium was also found to be 2.8 at that time. I was contacted by AMY Barron, and it was recommended that his potassium be repleted, his sotalol be held and he be admitted to telemetry. Currently, the patient is seen and examined in telemetry and he states he is feeling okay, a little sore from the fall, particularly his left groin. He states that he has felt his heart skipping beats since the fall but otherwise been feeling okay. His shortness of breath is stable and at baseline. PAST SURGICAL HISTORY: 1. [place]-guided cardioversion 08/2017. 2. Cardiac catheterizations. 3. Multiple toe amputations. 4. Upper endoscopy. 5. Cholecystectomy. 6. Pericardial window and drainage. PAST MEDICAL HISTORY: 1. Paroxysmal atrial fibrillation, on chronic sotalol and warfarin therapy. 2. Coronary artery disease with inferior wall myocardial infarction and severe multivessel disease, deemed not amenable to intervention. 3. Ischemic cardiomyopathy, EF 45-49%. 4. History of DVT and PE, on chronic Coumadin therapy. 5. Hyperlipidemia. 6. History of pericardial effusion, status post window. 7. History of vasovagal/cough syncope. 8. COPD. 9. Peripheral arterial disease. 10. History of tobacco abuse. 11. Chronic kidney disease. FAMILY HISTORY: Noncontributory. SOCIAL HISTORY: The patient is a former smoker, quit in 1971. Denies any alcohol or recreational drug use. He is and lives at home with his . 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 ALLERGIES: LEVAQUIN. MEDICATIONS AN OUTPATIENT: 1. Aspirin 325 mg daily. 2. Isosorbide dinitrate 40 mg daily. 3. Crestor 40 mg daily. 4. Sotalol 40 mg b.i.d. 5. Warfarin as directed by the [facility]. 6. Lasix 40 mg daily. 7. Percocet p.r.n. 8. Singular daily. 9. Zantac b.i.d. 10. Insulin. PHYSICAL EXAMINATION: VITALS: Temperature 35, pulse 61, respiratory rate 12, blood pressure 126/71, saturating 90% on 2 liters nasal cannula. GENERAL: Awake, alert, oriented x3, in no acute distress, audible wheezing which is the patient's baseline. HEENT: Normocephalic, atraumatic. Pupils equal, round, react to light and accommodation. Extraocular muscles intact. Anicteric sclerae. Moist mucous membranes. NECK: No JVD or bruit. CARDIOVASCULAR: Irregularly irregular but slow. Unable to appreciate murmurs, rubs or gallops. PULMONARY: Diffuse rhonchi and wheezing, no rales. ABDOMEN: Bowel sounds x4, soft. No rebound, guarding, tenderness. No organomegaly. EXTREMITIES: No clubbing, cyanosis or edema. +2 pedal pulses bilaterally. SKIN: Warm and dry. TEST RESULTS: 12-lead EKG performed in the Emergency Department, independently reviewed at this time shows atrial fibrillation with slow ventricular response at 57 beats per minute, QTc of 547 milliseconds. LABORATORY STUDIES OF SIGNIFICANCE: Sodium 133, potassium 2.8, BUN 15, creatinine 1.41. Chest x-ray was read as patchy airspace consolidation of both lung bases, left greater than right, as well as in the left suprahilar region. The appearance suggests multifocal pneumonia, small left pleural effusion. IMPRESSION: 1. Status post mechanical fall. 2. Prolonged QT interval at 547 milliseconds on low-dose sotalol therapy. 3. Paroxysmal atrial fibrillation, currently in atrial fibrillation. 4. Profound hypokalemia. 5. Pneumonia. 6. Mild ischemic cardiomyopathy. 7. Diffuse coronary artery disease, deemed not amenable to intervention in the past. RECOMMENDATIONS: It is my pleasure to see Mr. Canseco in reevaluation today. From a cardiac standpoint, first and foremost given the fact that his QT is prolonged to this extent, I believe this proves that he is no longer sotalol candidate despite the fact that he is only on 40 mg b.i.d. Obviously, the fact that his potassium is only 2.8 had a significant impact on his QT interval, but in the setting of not being able to explain his profound hypokalemia, I believe there is a risk of it occurring again and that would increase the risk of him suffer from ventricular tachycardia significantly, so again sotalol will be discontinued. The patient does question whether or not he would require a pacemaker implantation and he was counseled on the pathophysiology of permanent pacemakers. He was counseled I would like to wash him out of his antiarrhythmic and then start him on beta isaías. Should he not tolerate the beta isaías, his heart rates be significantly lower, then consideration for permanent pacemaker placement can be made based on the presence of tachybrady syndrome, but again I would like to see how he responds to medications first. Otherwise, he is on lifelong Coumadin and he will be continued with a goal INR of 2.3. His electrolytes should be followed and repleted as necessary to maintain potassium greater than 4 and magnesium greater than 2.
--- NOTE | 2017-10-17 11:12 | Progress Note ---
Medicine Progress Note Date & Time of Visit: Oct 17, 2017 at 10:58. Subjective 72-year-old man with history of COPD, CAD, stroke, A. fib, diabetes presents to the ER after a fall at home which was associated with one episode of vomiting did the patient reports feeling lightheaded prior to the fall which occurred in his kitchen and was associated with lightheadedness and palpitations. Review of telemetry overnight reveals sinus bradycardia down into the with some small pauses that were reported but not quantified. The patient reports feeling better than yesterday however does report a muscle in his groin related to the fall. He also reports some chest pain this morning which lasted 45 minutes. EKG was unremarkable for ischemic change in the patient has had negative serial troponins overnight. He is currently being evaluated by cardiology. On admission he was found to have patchy airspace consolidations at both lung bases consistent with a multifocal pneumonia. He does report some chills on Monday night (3 nights ago), however, he otherwise denies any change in his chronic cough, shortness of breath, fevers, sick contacts. He reports no issues of chest pain in the last year. He denies any recent progression or shortness of breath with exertion. He ambulates with a walker at baseline. He denies any supplemental oxygen use. Objective Last 8 Hrs Date Time Temp Pulse Resp B/P (MAP) Pulse Ox O2 Delivery O2 Flow Rate FiO2 10/17/17 08:00 93 Room Air 10/17/17 07:19 36.7 56 20 94/57 (69) 91 Room Air 10/17/17 04:00 Nasal Cannula 2.0 10/17/17 03:53 36.7 53 18 99/62 (74) 96 Nasal Cannula 2.0 Physical Exam: GEN: WNWD, in no acute distress, alert and appropriate HEENT: NC/AT, pupils are round and equal bilaterally, normal sclerae, MMM CARDIO: reg rate, S1/2 heard without m/g/r. Of note lungs sounds cause difficulty with cardiac auscultation LUNGS: Diffuse wheezes and rales throughout ABD: soft, non-tender, non-distended, no rebound or guarding, +BS EXTREMITY: RP and DP palpable 2+ bilat, no LE swelling or edema, extremities are warm and well-perfused, small superficial wound on L heel. NEURO: CN 2-12 grossly intact MUSC: Moves all extremities equally, no gross focal deficits. Appears generally weak SKIN: warm and dry, left heel wound as above Laboratory Results: 10/17/17 04:14 10/17/17 04:14 Test 10/16/17 11:20 10/16/17 13:42 10/16/17 14:25 10/17/17 04:14 Immature Granulocyte % (Auto) 0.3 % White Blood Count 9.39 K/uL (4.8-10.8) Red Blood Count 4.93 M/uL (4.7-6.1) 4.22 M/uL (4.7-6.1) Hemoglobin 13.4 g/dL (14.0-18.0) Hematocrit 41.0 % (42-52) Mean Corpuscular Volume 83.2 fL (80-100) 85.1 fL (80-100) Mean Corpuscular Hemoglobin 27.2 pg (25-34) 27.3 pg (25-34) Mean Corpuscular Hemoglobin Concent 32.7 g/dl (32-36) 32.0 g/dl (32-36) Platelet Count 303 K/uL (130-400) Mean Platelet Volume 9.0 fL (7.4-10.4) 9.4 fL (7.4-10.4) Neutrophils (%) (Auto) 77.8 % Lymphocytes (%) (Auto) 12.5 % Monocytes (%) (Auto) 7.0 % Eosinophils (%) (Auto) 2.0 % Basophils (%) (Auto) 0.4 % Neutrophils # (Auto) 7.30 K/uL (1.4-6.5) Lymphocytes # (Auto) 1.17 K/uL (1.2-3.4) Monocytes # (Auto) 0.66 K/uL (0.11-0.59) Eosinophils # (Auto) 0.19 K/uL (0-0.5) Basophils # (Auto) 0.04 K/uL (0-0.2) Immature Granulocyte # (Auto) 0.03 K/uL (0.00-0.02) Magnesium Level 1.7 mg/dl (1.8-2.4) Total Bilirubin 0.9 mg/dl (0.2-1) Direct Bilirubin 0.4 mg/dl (0-0.2) Aspartate Amino Transf (AST/SGOT) 38 U/L (15-37) Alanine Aminotransferase (ALT/SGPT) 17 U/L (12-78) Alkaline Phosphatase 214 U/L (45-117) Total Protein 8.1 gm/dl (6.4-8.2) Albumin 2.4 gm/dl (3.4-5.0) Lipase 64 U/L (73-393) Bedside Lactic Acid Venous 1.54 mmol/L (0.90-1.70) Urine Color YELLOW Urine Appearance CLEAR (CLEAR) Urine pH 7.5 (4.5-7.5) Urine Specific [place] 1.022 (1.000-1.030) Urine Protein NEG (NEG) Urine Glucose (UA) NEG (NEG) Urine Ketones NEG (NEG) Urine Occult Blood TRACE (NEG) Urine Nitrite NEG (NEG) Urine Bilirubin NEG (NEG) Urine Urobilinogen NEG (NEG) Urine Leukocyte Esterase NEG (NEG) Urine WBC (Auto) 1-5 /hpf (0-5) Urine RBC (Auto) 0-4 /hpf (0-4) Urine Hyaline Casts (Auto) 1-5 /lpf (0-5) Urine Epithelial Cells (Auto) 20-30 /lpf (0-5) Urine Bacteria (Auto) NEG (NEG) RDW Standard Deviation 48.7 fL (36.4-46.3) RDW Coefficient of Variation 15.7 % (11.5-14.5) Prothrombin Time 41.1 SECONDS (9.0-12.0) Prothromb Time International Ratio 4.0 (0.9-1.1) Anion Gap 7.0 mmol/L (3-11) Est Creatinine Clear Calc Drug Dose 67.0 ml/min Estimated GFR () 66.5 Estimated GFR (Non- 57.4 BUN/Creatinine Ratio 13.3 (10-20) Calcium Level 8.2 mg/dl (8.5-10.1) Troponin I < 0.015 ng/ml (0-0.045) Test 10/17/17 06:41 Bedside Glucose 82 mg/dl (70-99) Date/Time Source Procedure Growth Status 10/16/17 00:00 Nasal MRSA DNA Surveillance Screen - Final Specimen Positive for MRSA by DNA Probe Complete 10/17/17 08:40 Sputum Expectorated Sputum Gram Stain Pending Received 10/17/17 08:40 Sputum Expectorated Sputum Sputum Culture Pending Received Last 24 Hours Test 10/16/17 11:18 10/16/17 11:20 10/16/17 13:42 10/16/17 13:44 Bedside Glucose 137 mg/dl White Blood Count 9.39 K/uL Red Blood Count 4.93 M/uL Hemoglobin 13.4 g/dL Hematocrit 41.0 % Mean Corpuscular Volume 83.2 fL Mean Corpuscular Hemoglobin 27.2 pg Mean Corpuscular Hemoglobin Concent 32.7 g/dl Platelet Count 303 K/uL Mean Platelet Volume 9.0 fL Neutrophils (%) (Auto) 77.8 % Lymphocytes (%) (Auto) 12.5 % Monocytes (%) (Auto) 7.0 % Eosinophils (%) (Auto) 2.0 % Basophils (%) (Auto) 0.4 % Neutrophils # (Auto) 7.30 K/uL Lymphocytes # (Auto) 1.17 K/uL Monocytes # (Auto) 0.66 K/uL Eosinophils # (Auto) 0.19 K/uL Basophils # (Auto) 0.04 K/uL RDW Standard Deviation 46.6 fL RDW Coefficient of Variation 15.4 % Immature Granulocyte % (Auto) 0.3 % Immature Granulocyte # (Auto) 0.03 K/uL Sodium Level 133 mmol/L Potassium Level 2.8 mmol/L Chloride Level 95 mmol/L Carbon Dioxide Level 25 mmol/L Anion Gap 13.0 mmol/L Blood Urea Nitrogen 15 mg/dl Creatinine 1.41 mg/dl Est Creatinine Clear Calc Drug Dose 59.8 ml/min Estimated GFR () 58.1 Estimated GFR (Non- 50.1 BUN/Creatinine Ratio 10.6 Random Glucose 147 mg/dl Calcium Level 8.9 mg/dl Magnesium Level 1.7 mg/dl Total Bilirubin 0.9 mg/dl Direct Bilirubin 0.4 mg/dl Aspartate Amino Transf (AST/SGOT) 38 U/L Alanine Aminotransferase (ALT/SGPT) 17 U/L Alkaline Phosphatase 214 U/L Troponin I < 0.015 ng/ml Total Protein 8.1 gm/dl Albumin 2.4 gm/dl Lipase 64 U/L Bedside Lactic Acid Venous 1.54 mmol/L Prothrombin Time 46.8 SECONDS Prothromb Time International Ratio 4.6 Test 10/16/17 14:25 10/16/17 17:49 10/16/17 20:06 10/16/17 20:52 Urine Color YELLOW Urine Appearance CLEAR Urine pH 7.5 Urine Specific [place] 1.022 Urine Protein NEG Urine Glucose (UA) NEG Urine Ketones NEG Urine Occult Blood TRACE Urine Nitrite NEG Urine Bilirubin NEG Urine Urobilinogen NEG Urine Leukocyte Esterase NEG Urine WBC (Auto) 1-5 /hpf Urine RBC (Auto) 0-4 /hpf Urine Hyaline Casts (Auto) 1-5 /lpf Urine Epithelial Cells (Auto) 20-30 /lpf Urine Bacteria (Auto) NEG Bedside Glucose 164 mg/dl 207 mg/dl Potassium Level 3.6 mmol/L Test 10/16/17 22:20 10/17/17 02:05 10/17/17 04:14 10/17/17 06:41 Troponin I < 0.015 ng/ml < 0.015 ng/ml Bedside Glucose 124 mg/dl 82 mg/dl White Blood Count 8.85 K/uL Red Blood Count 4.22 M/uL Hemoglobin 11.5 g/dL Hematocrit 35.9 % Mean Corpuscular Volume 85.1 fL Mean Corpuscular Hemoglobin 27.3 pg Mean Corpuscular Hemoglobin Concent 32.0 g/dl RDW Standard Deviation 48.7 fL RDW Coefficient of Variation 15.7 % Platelet Count 257 K/uL Mean Platelet Volume 9.4 fL Prothrombin Time 41.1 SECONDS Prothromb Time International Ratio 4.0 Sodium Level 135 mmol/L Potassium Level 4.0 mmol/L Chloride Level 100 mmol/L Carbon Dioxide Level 28 mmol/L Anion Gap 7.0 mmol/L Blood Urea Nitrogen 17 mg/dl Creatinine 1.26 mg/dl Est Creatinine Clear Calc Drug Dose 67.0 ml/min Estimated GFR () 66.5 Estimated GFR (Non- 57.4 BUN/Creatinine Ratio 13.3 Random Glucose 84 mg/dl Calcium Level 8.2 mg/dl Date/Time Source Procedure Growth Status 10/17/17 08:40 Sputum Expectorated Sputum Gram Stain Pending Received 10/17/17 08:40 Sputum Expectorated Sputum Sputum Culture Pending Received Assessment & Plan 72-year-old man with history of COPD, CAD, stroke, A. fib, diabetes presents to the ER after a fall at home which was associated with one episode of vomiting did the patient reports feeling lightheaded prior to the fall which occurred in his kitchen and was associated with lightheadedness and palpitations. Review of telemetry overnight reveals sinus bradycardia down into the with some small pauses that were reported but not quantified. The patient reports feeling better than yesterday however does report a muscle in his groin related to the fall. He also reports some chest pain this morning which lasted 45 minutes. EKG was unremarkable for ischemic change in the patient has had negative serial troponins overnight. He is currently being evaluated by cardiology. On admission he was found to have patchy airspace consolidations at both lung bases consistent with a multifocal pneumonia. He does report some chills on Monday night (3 nights ago), however, he otherwise denies any change in his chronic cough, shortness of breath, fevers, sick contacts. He reports no issues of chest pain in the last year. He denies any recent progression or shortness of breath with exertion. He ambulates with a walker at baseline. He denies any supplemental oxygen use. 1. Multifocal pneumonia-continue vancomycin and Zosyn. Of note patient was in the hospital 2 months ago and is MRSA positive. Awaiting blood cultures. 2. Acute COPD exacerbation-no hypoxia at this time, diffuse wheezing and rales on exam. Continue prednisone 40 mg daily, flutter valve, nebulizer treatments. Continue antibiotics per #1. 3. Bradycardia-defer management to cardiology. 4. Chronic atrial fibrillation-currently sinus rhythm on anticoagulation with supratherapeutic INR. History important for hospital admission in August 2017 for new onset atrial fibrillation status post DC cardioversion and sotalol loading. Sotalol dose reduced in clinic on 09/25 due to bradycardia. Sotalol held on admission. Warfarin held and trending INR daily. 5. Diabetes type 2-continue insulin sliding scale with carb coverage and Lantus. 6. CAD-appears stable as discussed above. Continue aspirin, statin, nitrate with changes per cardiology recommendations. 7. Ischemic cardiomyopathy- management per #6 8. History of DVT/PE-Coumadin as above 9. History of CVA-continue aspirin and Coumadin as above 10. 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 No outpatient records on workup for this. Will consult Urology for management recs. DVT prophylaxis-Coumadin Full code Disposition-continue telemetry monitoring, appreciate cardiology recs DO [facility] Consultants: Cardiology-E[facility] Current Inpatient Medications: Current Inpatient Medications Medications (Trade) Dose Ordered Sig/Kendrick Route Start Time Stop Time Status Last Admin Dose Admin Ioversol (Optiray 320) 111 ml UD PRN IV 10/16/17 11:30 10/20/17 11:29 Acetaminophen (Tylenol Tab) 650 mg Q4H PRN PO 10/16/17 14:45 11/15/17 14:44 Prednisone (PredniSONE TAB) 40 mg DAILY PO 10/17/17 09:00 10/21/17 09:01 10/17/17 08:39 40 MG Miscellaneous Information (Consult) 1 ea UD PRN N/A 10/16/17 15:45 11/15/17 15:44 Allopurinol (Zyloprim Tab) 300 mg DAILY PO 10/17/17 09:00 11/16/17 08:59 10/17/17 08:39 300 MG Aspirin (Ecotrin Tab) 325 mg DAILY PO 10/17/17 09:00 11/16/17 08:59 10/17/17 08:39 325 MG Isosorbide Dinitrate (Isordil Tab) 40 mg DAILY PO 10/17/17 09:00 11/16/17 08:59 10/17/17 08:39 40 MG Montelukast Sodium (Singulair Tab) 10 mg QPM PO 10/16/17 21:00 11/15/17 20:59 10/16/17 21:10 10 MG Oxycodone/ Acetaminophen (Percocet 5-325mg Tab) 1 tab BID PRN PO 10/16/17 15:45 10/30/17 15:44 10/17/17 10:21 1 TAB Primidone (Mysoline Tab) 500 mg HS PO 10/16/17 21:00 11/15/17 20:59 10/16/17 21:10 500 MG Ranitidine HCl (zANTac TAB) 150 mg BID PO 10/16/17 21:00 11/15/17 20:59 10/17/17 08:38 150 MG Rosuvastatin Calcium (Crestor Tab) 40 mg HS PO 10/16/17 21:00 11/15/17 20:59 10/16/17 21:09 40 MG Insulin Aspart (novoLOG ASPART) SLIDING SCALE If C... ACHS SC 10/16/17 17:15 11/15/17 17:14 10/16/17 21:14 3 UNITS Glucose (Glucose 40% Gel) 15-30 GRAMS 15 GRAMS... UD PRN PO 10/16/17 15:45 11/15/17 15:44 Glucose (Glucose Chew Tab) 4-8 Tablets 4 Tabl... UD PRN PO 10/16/17 15:45 11/15/17 15:44 Dextrose (Dextrose 50% 50ML Syringe) 25-50ML OF 50% DW IV FOR... UD PRN IV 10/16/17 15:45 11/15/17 15:44 Glucagon (Glucagon Inj) 1 mg UD PRN SQ 10/16/17 15:45 11/15/17 15:44 Miscellaneous Information (Consult Glycemic Management Pharmacy) 1 ea UD PRN N/A 10/16/17 15:45 11/15/17 15:44 Piperacillin Sod/ Tazobactam Sod 3.375 gm/Dextrose 115 ml @ 28.75 mls/ hr Q8H IV 10/16/17 20:00 10/23/17 19:59 10/17/17 03:38 28.75 MLS/HR Miscellaneous Information (Consult) 1 ea UD PRN N/A 10/16/17 19:15 11/15/17 19:14 Vancomycin HCl 1500 mg/Sodium Chloride 530 ml @ 200 mls/hr Q14H IV 10/17/17 14:00 10/24/17 13:59 Insulin Glargine (Lantus Solostar Pen) 25 units HS SC 10/17/17 21:00 11/16/17 20:59
[2017-10-17] MEDS ORDERED: SODIUM CHLORIDE 0.9% 500ML 500 ML IV ONE (11:30)
--- NOTE | 2017-10-17 11:37 | Cardiology Follow-Up ---
Subjective Subjective Date of Service: Oct 17, 2017. Pt evaluation today including: conversation w/ patient, physical exam, chart review, lab review, review of studies, review of inpatient medication list Additional Details: Pt seen and examined, states that he's having some left sided chest pain today. Pleuritic in nature, very tender to palpation, does admit to falling with left arm curled under rib cage. Denies palpitations, lightheadedness or dizziness. Tele reviewed: sinus bradycardia, QT interval decreased significantly Problem List Medical Problems: (1) Aspiration pneumonia Status: Acute (2) Aspiration pneumonia Status: Acute (3) Bronchitis Status: Acute (4) Chest pain Status: Acute (5) Hypoxia Status: Acute (6) Hypoxia Status: Acute (7) Hypoxia Status: Acute (8) Pneumonia Status: Acute (9) Vomiting Status: Acute Review of Systems Respiratory: No see HPI, No cough, No sputum, No wheezing, No shortness of breath, No dyspnea on exertion, No dyspnea at rest, No hemoptysis, No problem reported Cardiac: + chest pain, No see HPI, No orthopnea, No PND, No edema, No claudication, No palpitations, No problem reported Objective Vital Signs Last Vital Signs Documentation Date Time Temp Pulse Resp B/P (MAP) Pulse Ox O2 Delivery O2 Flow Rate FiO2 10/17/17 08:00 93 Room Air 10/17/17 07:19 36.7 56 20 94/57 (69) 10/17/17 04:00 2.0 Physical Exam: General Appearance: WD/WN, no apparent distress Eyes: bilateral eyes normal inspection, bilateral eyes PERRL, bilateral eyes EOMI ENT: normal ENT inspection, hearing grossly normal, pharynx normal, + 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) Neck: supple, no adenopathy, thyroid normal, no JVD Respiratory/Chest: chest non-tender, lungs clear, normal breath sounds, no respiratory distress, no accessory muscle use Cardiovascular: regular rate, rhythm, no edema, no JVD, + systolic murmur, + gallop/S4 Abdomen: normal bowel sounds, non tender, soft, no organomegaly Extremities: normal inspection, no pedal edema, no calf tenderness, + pedal edema, + pertinent finding Neurologic/Psychiatric: manager emergency department II-XII nml as tested, no motor/sensory deficits, alert, normal mood/affect, oriented x 3 Skin: normal color, warm/dry, no rash Lymphatic: no adenopathy Assessment and Plan 1. chest pain s/p fall pleurtic and reproducible will send for rib series already on percocet prn, continue 2. paf has remained in sinus QTc has significantly improved again, do not believe he is a Sotalol candidate at this point given risk for Vtach along with underlying CAD cont coumadin will follow and replete lytes as needed will start metoprolol once sotalol washed out and rates increase historically did not tolerate rate controlled afib in the past, may ultimately require PPM implantation +/- AVN ablation 3. hypotensive unclear etiology eating and drinking well will give small fluid bolus and follow
[2017-10-17] MEDS ORDERED: CEFEPIME CONSULT ACTIVE PRN (13:00)
--- NOTE | 2017-10-17 13:54 | Pharmacy Progress Note ---
Glycemic Control Intl Consult Date of Service Oct 17, 2017. Scope Glycemic Pharmacist consulted by Pauline REYES on 10/16/17 for glycemic control and to write orders per [facility] inpatient glycemic control protocol Objective Weight (Kilograms): 97.200 Accuchecks BSG (last 24hrs): Test 10/16/17 17:49 10/16/17 20:52 10/17/17 02:05 10/17/17 04:14 Bedside Glucose 164 mg/dl (70-99) 207 mg/dl (70-99) 124 mg/dl (70-99) Random Glucose 84 mg/dl (70-99) Test 10/17/17 06:41 Bedside Glucose 82 mg/dl (70-99) Laboratory Data (last 24hrs) Test 10/16/17 20:06 10/17/17 04:14 Potassium Level 3.6 mmol/L 4.0 mmol/L Anion Gap 7.0 mmol/L BUN/Creatinine Ratio 13.3 Blood Urea Nitrogen 17 mg/dl Creatinine 1.26 mg/dl Sodium Level 135 mmol/L White Blood Count 8.85 K/uL HbA1c 8.8% on 09/07/17 Recent Pertinent Medications Outpatient Anti-diabetic Regimen: * Lantus 30 units SQ HS * NovoLog per scale * if no food >= 189 then usually 2 units The patient is currently receiving: * Basal insulin: Lantus 30 units every 24 hours given at bedtime * Correctional Insulin: Novolog Correction per scale ACHS Goal Range: Low 110 mg/dL - High 140 mg/dL Correction Factor: 25 mg/dL/unit * Prandial insulin: Per carb ratio of 1 unit per 8 grams CHO consumed Risk Factors for Insulin Resistance: * Steroids * Infection Assessment & Plan ASSESSMENT: * 72yo T2DM male with sub-adequate degree of outpatient control. * Pt is maintained on SQ basal bolus insulin regimen- but it appears that outpatient regimen is more weighted towards basal insulin rather than 50%:50% distribution of basal:prandial insulin * Outpatient regimen continued on admission secondary to steroids. Did not want to split outpatient Lantus to BID dosing as it is difficult to transition back to daily dosing in preparation for discharge. * AM fasting BSG slightly below goal range at 82 mg/dl this morning --> will decrease basal insulin to prevent subsequent hypo tomorrow * Pt refused CHO coverage at lunch --> will loosen parameters slightly PLAN FOR INPATIENT GLYCEMIC CONTROL: * Basal insulin * lDecrease dose: Lantus 25 units SQ HS * Bolus insulin * NovoLog per scale ACHS or Q6hrs while NPO * Goal Range: Low 110 mg/dL - High 140 mg/dL * Correction Factor: 30 mg/dL/unit * Nutritional / Prandial insulin per carb ratio of 1 unit per 9 grams CHO consumed * Please note that the plan above was derived based on current level of insulin resistance and hospital stress. These recommendations are appropriate for inpatient admission only. Plan of care upon discharge will need to be reassessed to avoid potential outpatient hypo/hyperglycemia. Thank you.
[2017-10-17] MEDS: VANCOMYCIN IV 1,500 MG in SODIUM CHLORIDE 0.9% 500ML 500 ML IV SCH (14:43)
[2017-10-17] MEDS: PRIMIDONE 250 MG TAB PO SCH (21:13)
[2017-10-17] MEDS: CEFEPIME IV 2,000 MG in SYRINGE 7.5 ML IV SCH (21:13)
[2017-10-17] MEDS: MONTELUKAST SOD 10 MG TAB PO SCH (21:14)
[2017-10-17] MEDS: ROSUVASTATIN CALCIUM 20 MG TAB PO SCH (21:14)
[2017-10-17] MEDS: INSULIN GLARGINE SOLOSTAR 100 UNITS/ML 3 ML PEN SC SCH (21:25)
[2017-10-18] VITALS (8 sets, daily range): BP systolic 101–131; BP diastolic 52–78; PULSE 50–68; TEMP 36.2–37.1; O2SAT 92–98
[2017-10-18] MEDS: OXYCODONE/ACETAMINOPHEN 5-325 TAB PO PRN ×4 (01:09→22:06)
[2017-10-18] MEDS: CEFEPIME IV 2,000 MG in SYRINGE 7.5 ML IV SCH ×3 (03:01→19:52)
[2017-10-18] MEDS: VANCOMYCIN IV 1,500 MG in SODIUM CHLORIDE 0.9% 500ML 500 ML IV SCH (03:01)
--- NOTE | 2017-10-18 05:54 | Clinical Documentation Query ---
CLINICAL DOCUMENTATION QUERY 72 year old male who present with likely aspiration pneumonia. Patient has a past medical hx of CAD with Ischemic cardiomyopathy. Patient remains on PO Lasix. By echo patient has a reduced EF of 45%. In your clinical opinion is this patient being managed for: ( ) Chronic systolic (reduced EF) heart failure ( ) Chronic diastolic (preserved EF) heart failure. 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 The medical record reflects the following clinical findings, treatment, and risk factors. Clinical Indicators: As above. EF 45% by past records. Treatment: Lasix, telemetry, I/O's, daily weights, Risk Factors: Age, CAD, ischemic cardiomyopathy. Please clarify and document your clinical opinion in the progress notes and discharge summary. Terms such as "probable", "suspected", "likely", "questionable", "possible", or "still to be ruled out" are acceptable. IF IN AGREEMENT, YOU MUST DOCUMENT ABOVE DIAGNOSTIC STATEMENT IN DAILY PROGRESS NOTES AND DISCHARGE SUMMARY. This document is not part of the patient's record. Thank You, Deni Scott, RN [phone]
[2017-10-18 06:31] LABS: CREATININE 1.31 mg/dl (0.60-1.40)
[2017-10-18] MEDS: INSULIN ASPART 100 UNITS/ML 3 ML PEN SC SCH ×4 (07:58→21:02)
[2017-10-18] MEDS: RANITIDINE HCL 150 MG TAB PO SCH ×2 (09:36→19:33)
[2017-10-18] MEDS: ASPIRIN 325 MG ECTAB PO SCH (09:36)
[2017-10-18] MEDS: ALLOPURINOL 300 MG TAB PO SCH (09:36)
[2017-10-18] MEDS: ISOSORBIDE DINITRATE 40 MG TAB PO SCH (09:37)
[2017-10-18 10:04] LABS: HEMATOCRIT 35.8 % (42-52); HEMOGLOBIN 11.4 g/dL (14.0-18.0); MEAN CELL VOLUME 84.8 fL (80-100); MEAN CORPUSCULAR HGB CONC 31.8 g/dl (32-36); MEAN PLATELET VOLUME 9.6 fL (7.4-10.4); PLATELET COUNT 260 K/uL (130-400); RED CELL DISTRIBUTION WIDTH CV 15.5 % (11.5-14.5); RED CELL DISTRIBUTION WIDTH SD 48.2 fL (36.4-46.3); WHITE BLOOD COUNT 11.08 K/uL (4.8-10.8)
[2017-10-18 10:24] LABS: CALCIUM 8.7 mg/dl (8.5-10.1); CREATININE 1.27 mg/dl (0.60-1.40); POTASSIUM 4.9 mmol/L (3.5-5.1)
[2017-10-18] MEDS ORDERED: INSULIN HUMAN NPH SC SCH (11:00)
--- NOTE | 2017-10-18 11:19 | Pharmacy Progress Note ---
Pharmacy Glycemic Short Note 2 Date of Service Oct 18, 2017. OUTPATIENT ANTIDIABETIC REGIMEN: * Lantus 30 units SQ HS * NovoLog per scale * if no food >= 189 then usually 2 units ASSESSMENT: * 72 yr old T2DM male admitted secondary to fall. * Patient received 39 units of SQ insulin over the past 24 hours: * 25 units of basal * 14 units of bolus * Fasting BSG of 185 mg/dL today is above goal range. Basal insulin was decreased 16% yesterday in an attempt to redistribute regimen and avoid hypoglycemia. Attempting not to split outpatient Lantus to BID dosing as it is difficult to transition back to daily dosing in preparation for discharge. I will not increase basal insulin for tonight per patient is NPO at midnight for pacer. * Post-prandial BSGs increase throughout the day. This is likely due to steroid induced hyperglycemia; currently on prednisone 40 mg daily. CF and CR was tightened yesterday at 2100. Will continue for now until effect is seen. * Will add a once daily dose of NPH to cover steroid induced elevation in BSG. Weight based NPH (0.4 units/kg) would be 39 units, however, this seems too aggressive given the fact that this is equivalent to yesterday's total daily dose of insulin. Will start with 15 units. Item Value Date Time Bedside Glucose 82 mg/dl 10/17/17 0641 Bedside Glucose 119 mg/dl H 10/17/17 1102 Bedside Glucose 191 mg/dl H 10/17/17 1552 Bedside Glucose 285 mg/dl H 10/17/172003 Bedside Glucose 185 mg/dl H 10/18/17 0633 PLAN FOR INPATIENT GLYCEMIC CONTROL: * Basal insulin * Lantus 25 units SQ daily * Add NPH 15 units SQ before lunch * Bolus insulin * NovoLog per scale ACHS or Q6hrs while NPO * Goal Range: Low 110 mg/dL - High 140 mg/dL * Correction Factor: 25 mg/dL/unit * Nutritional / Prandial insulin per carb ratio of 1 unit per 8 grams CHO consumed
[2017-10-18 11:54] LABS: INR 4.3 (0.9-1.1)
--- NOTE | 2017-10-18 12:04 | Pharmacy Progress Note ---
Pharmacy Abx Dose Short Note Date of Service Oct 18, 2017. Assessment & Plan Assessment * 72 yo M on Zosyn/vancomycin for possible PNA - nasal MRSA swab positive, sputum culture with light normal antelmo * Concern for renal dysfunction 2nd the following: * SCr stable but persistently elevated from baseline * Charted UOP minimal yesterday * K increased from 4.0 to 4.9 over 24 hours with no K supplements ordered * Will hold further vancomycin at this time and order a random level, scheduled for 14 hours after previous vancomycin dose Plan * Hold vancomycin * Random level today @ 1800 Pharmacy will continue to follow and will adjust dose/frequency as necessary. Thank you.
--- NOTE | 2017-10-18 12:47 | Urology Consultation ---
History General Date of Service: Oct 18, 2017. Chief Complaint: nisreen renal masses Primary Care Physician: Ron Mortensen D.O. Pt seen a urologist before?: No History of Present Illness 72 yo male admitted for n/v. consulted for CT findings of nisreen renal masses on CT. The pt follows with Dr. Kelly for CKD, but has never seen a urologist in the past. Denies dysuria or hematuria. Imaging Imaging: CT Laboratory Last 24 Hours Test 10/17/17 15:52 10/17/17 20:04 10/18/17 05:30 10/18/17 06:33 Bedside Glucose 191 mg/dl 285 mg/dl 185 mg/dl White Blood Count 11.08 K/uL Red Blood Count 4.22 M/uL Hemoglobin 11.4 g/dL Hematocrit 35.8 % Mean Corpuscular Volume 84.8 fL Mean Corpuscular Hemoglobin 27.0 pg Mean Corpuscular Hemoglobin Concent 31.8 g/dl RDW Standard Deviation 48.2 fL RDW Coefficient of Variation 15.5 % Platelet Count 260 K/uL Mean Platelet Volume 9.6 fL Sodium Level 132 mmol/L Potassium Level 4.9 mmol/L Chloride Level 100 mmol/L Carbon Dioxide Level 25 mmol/L Anion Gap 7.0 mmol/L Blood Urea Nitrogen 22 mg/dl Creatinine 1.27 mg/dl Est Creatinine Clear Calc Drug Dose 67.3 ml/min Estimated GFR () 65.9 Estimated GFR (Non- 56.9 BUN/Creatinine Ratio 17.7 Random Glucose 198 mg/dl Calcium Level 8.7 mg/dl Test 10/18/17 11:25 Problem List Medical Problems: (1) Aspiration pneumonia Status: Acute (2) Aspiration pneumonia Status: Acute (3) Bronchitis Status: Acute (4) Chest pain Status: Acute (5) Hypoxia Status: Acute (6) Hypoxia Status: Acute (7) Hypoxia Status: Acute (8) Pneumonia Status: Acute (9) Vomiting Status: Acute Past History A Fib, COPD, coronary artery disease, CVA/TIA/stroke (caudate stroke ), deep vein thrombosis, diabetes, GERD, gout, high cholesterol, hypertension, pulmonary embolism, renal disease (CKD stage 3 ), other (ischemic cardiomyopathy ) Family History FH: cancer GRANDFATHER Social History Hx Tobacco Use In Past Year?: No Smoking: quit greater than 1 year, no current use Alcohol: occasional Marital status: Housing status: lives with family Occupation status: retired Immunizations History of Influenza Vaccine: Yes Influenza Vaccine Date: Apr 05, 2017 History of Tetanus Vaccine?: Yes Tetanus Immunization Date: December 01, 2008 History of Pneumococcal: Yes Pneumococcal Date: Mar 09, 2015 History of MDRO Yes Type of MDRO: MRSA Allergies Coded Allergies: Onion (Verified Allergy, Intermediate, RASH, 10/16/17) Levofloxacin (Verified Allergy, Mild, other, 10/16/17) ' Albuterol (Verified Adverse Reaction, Mild, 0, 10/16/17) cough syncope Ipratropium (Verified Adverse Reaction, Mild, 0, 10/16/17) cough syncope Medications Home Medications: Home Meds and Scripts Medications Dose Route/Sig Max Daily Dose Days Date Category Dose Instructions Sotalol Hcl (Af) (Sotalol Hcl (Afib/Afl)) 80 Mg Tab 40 Mg PO BID 10/16/17 Reported Percocet 5MG/325MG (Oxycodone/Acetaminophen) Tab 1 Tablet PO BID PRN 09/06/17 Reported Hycodan 5/1.5MG 5 Ml (Hydrocodone W/ Homatropine) 1 Syp Syp 5 Ml PO HS PRN 24 09/06/17 Reported Furosemide 20 Mg Tab 20 Mg PO BID 09/06/17 Reported Lantus (Insulin Glargine) 100 Unit/Ml Inj 30 Units SC HS 09/06/17 Reported Novolog (Insulin Aspart) 100 Units/Ml Inj 09/06/17 Reported SLIDING SCALE if no food >= 189 then usually 2 units Jantoven (Warfarin Sodium) 2 Mg Tab 4 Mg PO 5XWK 03/21/17 Reported SUN, MON, TUES, THURS, FRI Jantoven (Warfarin Sodium) 2 Mg Tab 2 Mg PO 2XWK 05/07/16 Reported WED AND SAT Aspirin 325 Mg Tab 325 Mg PO DAILY 12/29/14 Reported Singulair (Montelukast Sodium) 10 Mg Tab 10 Mg PO QPM 12/29/14 Reported Isordil (Isosorbide Dinitrate) 40 Mg Tab 40 Mg PO DAILY 12/29/14 Reported Allopurinol 300 Mg Tab 300 Mg PO DAILY 09/22/14 Reported Crestor (Rosuvastatin Calcium) 40 Mg Tab 40 Mg PO HS 09/22/14 Reported Nitrostat (Nitroglycerin) 0.4 Mg Tab 0.4 Mg UT UD PRN 08/19/09 Reported Zantac (Ranitidine HCl) 150 Mg Tab 150 Mg PO BID 03/26/09 Reported Mysoline (Primidone) 250 Mg Tab 500 Mg PO HS 04/05/09 Reported Inpatient Medications: Current Inpatient Medications Medications (Trade) Dose Ordered Sig/Kendrick Route Start Time Stop Time Status Last Admin Dose Admin Ioversol (Optiray 320) 111 ml UD PRN IV 10/16/17 11:30 10/20/17 11:29 Acetaminophen (Tylenol Tab) 650 mg Q4H PRN PO 10/16/17 14:45 11/15/17 14:44 Prednisone (PredniSONE TAB) 40 mg DAILY PO 10/17/17 09:00 10/21/17 09:01 10/18/17 09:36 40 MG Allopurinol (Zyloprim Tab) 300 mg DAILY PO 10/17/17 09:00 11/16/17 08:59 10/18/17 09:36 300 MG Aspirin (Ecotrin Tab) 325 mg DAILY PO 10/17/17 09:00 11/16/17 08:59 10/18/17 09:36 325 MG Isosorbide Dinitrate (Isordil Tab) 40 mg DAILY PO 10/17/17 09:00 11/16/17 08:59 10/18/17 09:37 40 MG Montelukast Sodium (Singulair Tab) 10 mg QPM PO 10/16/17 21:00 11/15/17 20:59 10/17/17 21:14 10 MG Primidone (Mysoline Tab) 500 mg HS PO 10/16/17 21:00 11/15/17 20:59 10/17/17 21:13 500 MG Ranitidine HCl (zANTac TAB) 150 mg BID PO 10/16/17 21:00 11/15/17 20:59 10/18/17 09:36 150 MG Rosuvastatin Calcium (Crestor Tab) 40 mg HS PO 10/16/17 21:00 11/15/17 20:59 10/17/17 21:14 40 MG Insulin Aspart (novoLOG ASPART) SLIDING SCALE If C... ACHS SC 10/16/17 17:15 11/15/17 17:14 10/18/17 07:58 8 UNITS Glucose (Glucose 40% Gel) 15-30 GRAMS 15 GRAMS... UD PRN PO 10/16/17 15:45 11/15/17 15:44 Glucose (Glucose Chew Tab) 4-8 Tablets 4 Tabl... UD PRN PO 10/16/17 15:45 11/15/17 15:44 Dextrose (Dextrose 50% 50ML Syringe) 25-50ML OF 50% DW IV FOR... UD PRN IV 10/16/17 15:45 11/15/17 15:44 Glucagon (Glucagon Inj) 1 mg UD PRN SQ 10/16/17 15:45 11/15/17 15:44 Miscellaneous Information (Consult Glycemic Management Pharmacy) 1 ea UD PRN N/A 10/16/17 15:45 11/15/17 15:44 Miscellaneous Information (Consult) 1 ea UD PRN N/A 10/16/17 19:15 11/15/17 19:14 Vancomycin HCl 1500 mg/Sodium Chloride 530 ml @ 200 mls/hr Q14H IV 10/17/17 14:00 10/24/17 13:59 10/18/17 03:01 200 MLS/HR Insulin Glargine (Lantus Solostar Pen) 25 units HS SC 10/17/17 21:00 11/16/17 20:59 10/17/17 21:25 25 UNITS Cefepime HCl (Consult) 1 ea UD PRN N/A 10/17/17 13:00 11/16/17 12:59 Cefepime HCl 2000 mg/Syringe 20 ml @ 5 mls/min Q8@0200,1200,2000 IV 10/17/17 20:00 10/24/17 19:59 10/18/17 03:01 5 MLS/MIN Insulin Human NPH (novoLIN-N NPH) 15 units DAILYBL SC 10/18/17 11:00 11/17/17 10:59 Oxycodone/ Acetaminophen (Percocet 5-325mg Tab) 1 tab Q6H PRN PO 10/18/17 08:00 10/30/17 15:44 10/18/17 09:36 1 TAB Review of Systems Review of Systems Constitutional: No fever, No chills Eyes: No double vision Neurological: No dizzy Endocrine: No excessive thirst Gastrointestinal: No abdominal pain Cardiovascular: + chest pain (pain near heart-pt reports the pain is from old rib fractures ) Respiratory: No shortness of breath Skin: No rash Musculoskeletal: + arthritis Male : No painful urination, No blood in urine Physical Exam Vital Signs: Vital Signs Past 12 Hours Date Time Temp Pulse Resp B/P (MAP) Pulse Ox O2 Delivery O2 Flow Rate FiO2 10/18/17 08:14 Room Air 10/18/17 07:10 36.2 59 20 114/73 (87) 92 Room Air 10/18/17 04:00 58 20 104/52 (69) 96 Room Air 10/18/17 04:00 Room Air 10/18/17 00:01 Room Air Physical Exam: General Appearance: no apparent distress Eyes: bilateral eyes normal inspection ENT: hearing grossly normal Neck: no JVD Respiratory/Chest: no respiratory distress, no accessory muscle use Cardiovascular: no JVD Extremities: normal inspection Neurologic/Psychiatric: alert, normal mood/affect, oriented x 3 Skin: normal color Assessment & Plan Assessment & Plan A/P: Nisreen renal masses Masses of unknown etiology. Unlikely in nature given there are multiple lesions and they are bilateral. The pt has no hx of cancer. Lesions appear stable compared to imaging from 2015. Would consider further evaluation by oncology for source. Thanks for the consult. No further management. Recall PRN issues.
[2017-10-18] MEDS ORDERED: PHYTONADIONE 5 MG TAB PO STA (12:49)
--- NOTE | 2017-10-18 12:52 | Cardiology Follow-Up ---
Subjective Subjective Date of Service: Oct 18, 2017. Pt evaluation today including: conversation w/ patient, physical exam, chart review, lab review, review of studies, review of inpatient medication list Additional Details: Pt seen and examined, states that he's still having significant pain at left rib cage. Otherwise, feels well and is anxious for discharge. Denies cp, sob, palpitations, lightheadedness or dizziness. Tele reviewed: sinus rhythm with short salvos of atrial fibrillation. Now significantly bradycardic at rest, down into the 30's briefly while awake seated on bed, pain now controlled. Problem List Medical Problems: (1) Aspiration pneumonia Status: Acute (2) Aspiration pneumonia Status: Acute (3) Bronchitis Status: Acute (4) Chest pain Status: Acute (5) Hypoxia Status: Acute (6) Hypoxia Status: Acute (7) Hypoxia Status: Acute (8) Pneumonia Status: Acute (9) Vomiting Status: Acute Review of Systems Respiratory: No see HPI, No cough, No sputum, No wheezing, No shortness of breath, No dyspnea on exertion, No dyspnea at rest, No hemoptysis, No problem reported Cardiac: + chest pain, No see HPI, No orthopnea, No PND, No edema, No claudication, No palpitations, No problem reported Objective Vital Signs Last Vital Signs Documentation Date Time Temp Pulse Resp B/P (MAP) Pulse Ox O2 Delivery O2 Flow Rate FiO2 10/18/17 11:49 37.1 59 20 101/65 (77) 92 Room Air 10/17/17 04:00 2.0 Physical Exam: General Appearance: WD/WN, no apparent distress Eyes: bilateral eyes normal inspection, bilateral eyes PERRL, bilateral eyes EOMI ENT: normal ENT inspection, hearing grossly normal, pharynx normal, + 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) Neck: supple, no adenopathy, thyroid normal, no JVD Respiratory/Chest: chest non-tender, lungs clear, normal breath sounds, no respiratory distress, no accessory muscle use Cardiovascular: regular rate, rhythm, no edema, no JVD, + systolic murmur, + gallop/S4 Abdomen: normal bowel sounds, non tender, soft, no organomegaly Extremities: normal inspection, no pedal edema, no calf tenderness, + pedal edema, + pertinent finding 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 chest pain s/p fall old rib fractures on right, none on left likely due to bruised ribs percocet has been increased in frequency and currently controlled 2. paf has remained in sinus QTc has significantly improved again, do not believe he is a Sotalol candidate at this point given risk for Vtach along with underlying CAD cont coumadin will follow and replete lytes as needed unable to start rate controlling agents given current bradycardia historically did not tolerate rate controlled afib in the past, may ultimately require PPM implantation +/- AVN ablation 3. hypotensive unclear etiology eating and drinking well improved 4. 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
--- NOTE | 2017-10-18 15:21 | Progress Note ---
Progress Note Date of Service Oct 18, 2017. Progress Note Continued tele monitoring shows the patient to be remaining in the 40's. 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 Daly to evaluate the patient for ppm placement on 10/19, he was kind enough to agree to see and treat patient will make npo after midnight INR of 4.3 today, single dose of Vitamin K 2.5mg given, discussed dosing with pharmacy.
[2017-10-18] MEDS: MONTELUKAST SOD 10 MG TAB PO SCH (19:34)
[2017-10-18] MEDS: PRIMIDONE 250 MG TAB PO SCH (19:34)
[2017-10-18] MEDS: ROSUVASTATIN CALCIUM 20 MG TAB PO SCH (19:34)
[2017-10-18] MEDS: INSULIN GLARGINE SOLOSTAR 100 UNITS/ML 3 ML PEN SC SCH (21:05)
--- NOTE | 2017-10-18 21:16 | Progress Note ---
Medicine Progress Note Date & Time of Visit: Oct 18, 2017 at 1100. Subjective 72-year-old man with history of COPD, CAD, stroke, A. fib, diabetes presents to the ER after a fall at home which was associated with one episode of vomiting did the patient reports feeling lightheaded prior to the fall which occurred in his kitchen and was associated with lightheadedness and palpitations. Review of telemetry overnight reveals sinus bradycardia down into the 30s with 1 small run of atrial flutter followed by a 2.1 second pause and then spontaneous conversion to sinus rhythm. He denies groin pain today but does report rib pain that is not controlled with Percocet twice daily. He denies fevers or chills overnight. He is tolerating p.o. He reports he is ambulating at baseline. Objective Last 8 Hrs Date Time Temp Pulse Resp B/P (MAP) Pulse Ox O2 Delivery O2 Flow Rate FiO2 10/18/17 20:00 Room Air 10/18/17 15:40 92 Room Air 10/18/17 15:17 36.7 50 20 108/61 (77) 98 Room Air Physical Exam: GEN: WNWD, in no acute distress, alert and appropriate HEENT: NC/AT, pupils are round and equal bilaterally, normal sclerae, MMM CARDIO: reg rate, S1/2 heard without m/g/r. LUNGS: Coarse rhonchi throughout no wheezes or rails ABD: soft, non-tender, non-distended, no rebound or guarding, +BS EXTREMITY: RP and DP palpable 2+ bilat, no LE swelling or edema, extremities are warm and well-perfused, small superficial wound on L heel. NEURO: CN 2-12 grossly intact MUSC: Moves all extremities equally, no gross focal deficits. Appears generally weak SKIN: warm and dry, left heel wound as above Laboratory Results: 10/18/17 05:30 10/18/17 05:30 Test 10/16/17 11:20 10/16/17 13:42 10/16/17 14:25 10/17/17 04:14 Immature Granulocyte % (Auto) 0.3 % White Blood Count 9.39 K/uL (4.8-10.8) Red Blood Count 4.93 M/uL (4.7-6.1) Hemoglobin 13.4 g/dL (14.0-18.0) Hematocrit 41.0 % (42-52) Mean Corpuscular Volume 83.2 fL (80-100) Mean Corpuscular Hemoglobin 27.2 pg (25-34) Mean Corpuscular Hemoglobin Concent 32.7 g/dl (32-36) Platelet Count 303 K/uL (130-400) Mean Platelet Volume 9.0 fL (7.4-10.4) Neutrophils (%) (Auto) 77.8 % Lymphocytes (%) (Auto) 12.5 % Monocytes (%) (Auto) 7.0 % Eosinophils (%) (Auto) 2.0 % Basophils (%) (Auto) 0.4 % Neutrophils # (Auto) 7.30 K/uL (1.4-6.5) Lymphocytes # (Auto) 1.17 K/uL (1.2-3.4) Monocytes # (Auto) 0.66 K/uL (0.11-0.59) Eosinophils # (Auto) 0.19 K/uL (0-0.5) Basophils # (Auto) 0.04 K/uL (0-0.2) Immature Granulocyte # (Auto) 0.03 K/uL (0.00-0.02) Magnesium Level 1.7 mg/dl (1.8-2.4) Total Bilirubin 0.9 mg/dl (0.2-1) Direct Bilirubin 0.4 mg/dl (0-0.2) Aspartate Amino Transf (AST/SGOT) 38 U/L (15-37) Alanine Aminotransferase (ALT/SGPT) 17 U/L (12-78) Alkaline Phosphatase 214 U/L (45-117) Total Protein 8.1 gm/dl (6.4-8.2) Albumin 2.4 gm/dl (3.4-5.0) Lipase 64 U/L (73-393) Bedside Lactic Acid Venous 1.54 mmol/L (0.90-1.70) Urine Color YELLOW Urine Appearance CLEAR (CLEAR) Urine pH 7.5 (4.5-7.5) Urine Specific [place] 1.022 (1.000-1.030) Urine Protein NEG (NEG) Urine Glucose (UA) NEG (NEG) Urine Ketones NEG (NEG) Urine Occult Blood TRACE (NEG) Urine Nitrite NEG (NEG) Urine Bilirubin NEG (NEG) Urine Urobilinogen NEG (NEG) Urine Leukocyte Esterase NEG (NEG) Urine WBC (Auto) 1-5 /hpf (0-5) Urine RBC (Auto) 0-4 /hpf (0-4) Urine Hyaline Casts (Auto) 1-5 /lpf (0-5) Urine Epithelial Cells (Auto) 20-30 /lpf (0-5) Urine Bacteria (Auto) NEG (NEG) Troponin I < 0.015 ng/ml (0-0.045) Test 10/18/17 05:30 10/18/17 11:25 10/18/17 11:46 10/18/17 17:39 Red Blood Count 4.22 M/uL (4.7-6.1) Mean Corpuscular Volume 84.8 fL (80-100) Mean Corpuscular Hemoglobin 27.0 pg (25-34) Mean Corpuscular Hemoglobin Concent 31.8 g/dl (32-36) RDW Standard Deviation 48.2 fL (36.4-46.3) RDW Coefficient of Variation 15.5 % (11.5-14.5) Mean Platelet Volume 9.6 fL (7.4-10.4) Anion Gap 7.0 mmol/L (3-11) Est Creatinine Clear Calc Drug Dose 67.3 ml/min Estimated GFR () 65.9 Estimated GFR (Non- 56.9 BUN/Creatinine Ratio 17.7 (10-20) Calcium Level 8.7 mg/dl (8.5-10.1) Prothrombin Time 43.5 SECONDS (9.0-12.0) Prothromb Time International Ratio 4.3 (0.9-1.1) Bedside Glucose 126 mg/dl (70-99) Random Vancomycin Level 31.1 mcg/ml Date/Time Source Procedure Growth Status 10/16/17 00:00 Nasal MRSA DNA Surveillance Screen - Final Specimen Positive for MRSA by DNA Probe Complete 10/17/17 08:40 Sputum Expectorated Sputum Gram Stain - Final Resulted 10/17/17 08:40 Sputum Expectorated Sputum Sputum Culture - Preliminary MODERATE NORMAL AMANDA Present, Final ... Resulted Last 24 Hours Test 10/18/17 05:30 10/18/17 06:33 10/18/17 11:25 10/18/17 11:46 White Blood Count 11.08 K/uL Red Blood Count 4.22 M/uL Hemoglobin 11.4 g/dL Hematocrit 35.8 % Mean Corpuscular Volume 84.8 fL Mean Corpuscular Hemoglobin 27.0 pg Mean Corpuscular Hemoglobin Concent 31.8 g/dl RDW Standard Deviation 48.2 fL RDW Coefficient of Variation 15.5 % Platelet Count 260 K/uL Mean Platelet Volume 9.6 fL Sodium Level 132 mmol/L Potassium Level 4.9 mmol/L Chloride Level 100 mmol/L Carbon Dioxide Level 25 mmol/L Anion Gap 7.0 mmol/L Blood Urea Nitrogen 22 mg/dl Creatinine 1.27 mg/dl Est Creatinine Clear Calc Drug Dose 67.3 ml/min Estimated GFR () 65.9 Estimated GFR (Non- 56.9 BUN/Creatinine Ratio 17.7 Random Glucose 198 mg/dl Calcium Level 8.7 mg/dl Bedside Glucose 185 mg/dl 126 mg/dl Prothrombin Time 43.5 SECONDS Prothromb Time International Ratio 4.3 Test 10/18/17 17:39 Random Vancomycin Level 31.1 mcg/ml Assessment & Plan 72-year-old man with history of COPD, CAD, stroke, A. fib, diabetes presents to the ER after a fall at home which was associated with one episode of vomiting did the patient reports feeling lightheaded prior to the fall which occurred in his kitchen and was associated with lightheadedness and palpitations. Review of telemetry overnight reveals sinus bradycardia down into the 30s with 1 small run of atrial flutter followed by a 2.1 second pause and then spontaneous conversion to sinus rhythm. He denies groin pain today but does report rib pain that is not controlled with Percocet twice daily. He denies fevers or chills overnight. He is tolerating p.o. He reports he is ambulating at baseline. 1. Multifocal pneumonia-overall there is clinical improvement and patient is oxygenating well on room air without fevers or chills. However, there is still coarse rhonchi on exam which is improved but would like to continue IV antibiotics for another 24 hours. As sputum culture is negative for MRSA will stop vancomycin at this time. Plan to transition to oral antibiotics in the next 1-2 days. 2. Acute COPD exacerbation-no hypoxia at this time, diffuse wheezing and rales have resolved. Continue prednisone 40 mg daily, flutter valve, nebulizer treatments. Continue antibiotics per #1. 3. Bradycardia-asymptomatic but with pauses. Cardiology to place pacemaker in the morning. 4. Chronic atrial fibrillation-currently sinus rhythm on anticoagulation with supratherapeutic INR. Warfarin held. History important for hospital admission in August 2017 for new onset atrial fibrillation status post DC cardioversion and sotalol loading. Sotalol dose reduced in clinic on 09/25 due to bradycardia. Sotalol held on admission. Pacemaker planned for tomorrow morning. 5. Diabetes type 2-continue insulin sliding scale with carb coverage and Lantus. Currently at goal. 6. CAD-appears stable as discussed above. Continue aspirin, statin, nitrate with changes per cardiology recommendations. 7. Ischemic cardiomyopathy- management per #6 8. History of DVT/PE-Coumadin as above 9. History of CVA-continue aspirin and Coumadin as above 10. 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 No outpatient records on workup for this. Urology consulted and feels appropriate for outpatient follow-up. They will contact the patient to set this up upon discharge. DVT prophylaxis-Coumadin Full code Disposition-continue telemetry monitoring, appreciate cardiology recs Juliana Anderson DO [facility] hospitalist Consultants: Cardiology-Erick Current Inpatient Medications: Current Inpatient Medications Medications (Trade) Dose Ordered Sig/Kendrick Route Start Time Stop Time Status Last Admin Dose Admin Ioversol (Optiray 320) 111 ml UD PRN IV 10/16/17 11:30 10/20/17 11:29 Acetaminophen (Tylenol Tab) 650 mg Q4H PRN PO 10/16/17 14:45 11/15/17 14:44 Prednisone (PredniSONE TAB) 40 mg DAILY PO 10/17/17 09:00 10/21/17 09:01 10/18/17 09:36 40 MG Allopurinol (Zyloprim Tab) 300 mg DAILY PO 10/17/17 09:00 11/16/17 08:59 10/18/17 09:36 300 MG Aspirin (Ecotrin Tab) 325 mg DAILY PO 10/17/17 09:00 11/16/17 08:59 10/18/17 09:36 325 MG Isosorbide Dinitrate (Isordil Tab) 40 mg DAILY PO 10/17/17 09:00 11/16/17 08:59 10/18/17 09:37 40 MG Montelukast Sodium (Singulair Tab) 10 mg QPM PO 10/16/17 21:00 11/15/17 20:59 10/18/17 19:34 10 MG Primidone (Mysoline Tab) 500 mg HS PO 10/16/17 21:00 11/15/17 20:59 10/18/17 19:34 500 MG Ranitidine HCl (zANTac TAB) 150 mg BID PO 10/16/17 21:00 11/15/17 20:59 10/18/17 19:33 150 MG Rosuvastatin Calcium (Crestor Tab) 40 mg HS PO 10/16/17 21:00 11/15/17 20:59 10/18/17 19:34 40 MG Insulin Aspart (novoLOG ASPART) SLIDING SCALE If C... ACHS SC 10/16/17 17:15 11/15/17 17:14 10/18/17 16:55 10 UNITS Glucose (Glucose 40% Gel) 15-30 GRAMS 15 GRAMS... UD PRN PO 10/16/17 15:45 11/15/17 15:44 Glucose (Glucose Chew Tab) 4-8 Tablets 4 Tabl... UD PRN PO 10/16/17 15:45 11/15/17 15:44 Dextrose (Dextrose 50% 50ML Syringe) 25-50ML OF 50% DW IV FOR... UD PRN IV 10/16/17 15:45 11/15/17 15:44 Glucagon (Glucagon Inj) 1 mg UD PRN SQ 10/16/17 15:45 11/15/17 15:44 Miscellaneous Information (Consult Glycemic Management Pharmacy) 1 ea UD PRN N/A 10/16/17 15:45 11/15/17 15:44 Miscellaneous Information (Consult) 1 ea UD PRN N/A 10/16/17 19:15 11/15/17 19:14 Vancomycin HCl 1500 mg/Sodium Chloride 530 ml @ 200 mls/hr Q14H IV 10/17/17 14:00 10/24/17 13:59 Future Hold 10/18/17 03:01 200 MLS/HR Insulin Glargine (Lantus Solostar Pen) 25 units HS SC 10/17/17 21:00 11/16/17 20:59 10/17/17 21:25 25 UNITS Cefepime HCl (Consult) 1 ea UD PRN N/A 10/17/17 13:00 11/16/17 12:59 Cefepime HCl 2000 mg/Syringe 20 ml @ 5 mls/min Q8@0200,1200,2000 IV 10/17/17 20:00 10/24/17 19:59 10/18/17 19:52 5 MLS/MIN Insulin Human NPH (novoLIN-N NPH) 15 units DAILYBL SC 10/18/17 11:00 11/17/17 10:59 10/18/17 12:03 15 UNITS Oxycodone/ Acetaminophen (Percocet 5-325mg Tab) 1 tab Q6H PRN PO 10/18/17 08:00 10/30/17 15:44 10/18/17 15:14 1 TAB
[2017-10-19] VITALS (15 sets, daily range): BP systolic 103–136; BP diastolic 61–76; PULSE 52–79; TEMP 36.3–36.7; O2SAT 91–97
[2017-10-19] MEDS: CEFEPIME IV 2,000 MG in SYRINGE 7.5 ML IV SCH ×3 (01:47→21:24)
[2017-10-19 06:30] LABS: INR 1.9 (0.9-1.1)
[2017-10-19] MEDS: INSULIN ASPART 100 UNITS/ML 3 ML PEN SC SCH ×4 (07:00→21:37)
[2017-10-19] MEDS ORDERED: VANCOMYCIN TROUGH ONE (07:30)
[2017-10-19] MEDS: RANITIDINE HCL 150 MG TAB PO SCH ×2 (08:08→21:27)
[2017-10-19] MEDS: ALLOPURINOL 300 MG TAB PO SCH (08:08)
[2017-10-19] MEDS: ISOSORBIDE DINITRATE 40 MG TAB PO SCH (08:09)
[2017-10-19] MEDS: ASPIRIN 325 MG ECTAB PO SCH (08:09)
[2017-10-19] MEDS: OXYCODONE/ACETAMINOPHEN 5-325 TAB PO PRN ×2 (08:27→16:22)
--- NOTE | 2017-10-19 11:13 | Cardiology Consultation ---
Cardiology Consultation Date of Consultation: Oct 19, 2017. Requesting Physician: Erick Reason for Consultation: Tachy-melissa syndrome Pt evaluation today including: conversation w/ patient, physical exam, chart review, lab review, review of studies, conversation w/ project management consultant, review of inpatient medication list History of Present Illness The patient is a 72-year-old gentleman with a history of coronary artery disease and persistent atrial fibrillation who was admitted to [facility] after suffering a mechanical fall. Patient states that his walker tip it in he tipped with it. He sustained some minor injuries. During his evaluation he was noted to be bradycardic and have a prolonged QT interval. He was also noted to be hypokalemic. Patient states that he has not been dizzy or lightheaded. He did not suffer presyncope or any syncopal episodes. He generally walks with a walker due to some gait instability. He has some dyspnea that is chronic in nature. He states that this occurs with exertion and occasionally at rest. This is not worsened recently. He did not describe orthopnea or paroxysmal nocturnal dyspnea. He generally is not aware of any palpitations. He has not had symptoms of chest pain recently. In addition to following the patient did have some nausea and vomiting. This appears to have resolved. At the time of this interview the patient claims to be feeling well. He has not report significant breathing problems at rest. He has not report any coughing currently. He did report feeling chilled over the weekend but attributed this to his turning down the thermostat. He has not had any documented fevers. He has had an element of fatigue recently and is hopeful that a pacemaker will improve his energy. Past Medical/Surgical History Coronary artery disease with remote inferior myocardial infarction. Persistent atrial fibrillation status post [place] guided cardioversion August 2017 Ischemic cardiomyopathy with an ejection fraction of 45% History of venous thromboembolic disease with DVT and PE Hyperlipidemia History of pericardial effusion status post pericardial window History of syncope thought to be related to cough COPD Peripheral arterial disease status post toe amputation Tobacco abuse, remote Chronic renal insufficiency Past surgical history: Toe amputation Cholecystectomy Pericardial window Family History FH: cancer GRANDFATHER Noncontributory given his advanced age and current comorbidities Social History Smoking Status: Former Smoker History of Alcohol Use: No Currently lives independently. This with his . He has several occupations previously Review of Systems Respiratory: No see HPI, No cough, No sputum, No wheezing, No shortness of breath, No dyspnea on exertion, No dyspnea at rest, No hemoptysis, No problem reported Cardiac: + chest pain, No see HPI, No orthopnea, No PND, No edema, No claudication, No palpitations, No problem reported Per HPI. Patient also noted some lower extremity edema which is chronic. Right greater than left. All Other Systems: Reviewed and Negative Allergies Coded Allergies: Onion (Verified Allergy, Intermediate, RASH, 10/16/17) Levofloxacin (Verified Allergy, Mild, other, 10/16/17) ' Albuterol (Verified Adverse Reaction, Mild, 0, 10/16/17) cough syncope Ipratropium (Verified Adverse Reaction, Mild, 0, 10/16/17) cough syncope Medications Current Inpatient Medications Medications (Trade) Dose Ordered Sig/Kendrick Route Start Time Stop Time Status Last Admin Dose Admin Ioversol (Optiray 320) 111 ml UD PRN IV 10/16/17 11:30 10/20/17 11:29 Acetaminophen (Tylenol Tab) 650 mg Q4H PRN PO 10/16/17 14:45 11/15/17 14:44 Prednisone (PredniSONE TAB) 40 mg DAILY PO 10/17/17 09:00 10/21/17 09:01 10/19/17 08:08 40 MG Allopurinol (Zyloprim Tab) 300 mg DAILY PO 10/17/17 09:00 11/16/17 08:59 10/19/17 08:08 300 MG Aspirin (Ecotrin Tab) 325 mg DAILY PO 10/17/17 09:00 11/16/17 08:59 10/19/17 08:09 325 MG Isosorbide Dinitrate (Isordil Tab) 40 mg DAILY PO 10/17/17 09:00 11/16/17 08:59 10/19/17 08:09 40 MG Montelukast Sodium (Singulair Tab) 10 mg QPM PO 10/16/17 21:00 11/15/17 20:59 10/18/17 19:34 10 MG Primidone (Mysoline Tab) 500 mg HS PO 10/16/17 21:00 11/15/17 20:59 10/18/17 19:34 500 MG Ranitidine HCl (zANTac TAB) 150 mg BID PO 10/16/17 21:00 11/15/17 20:59 10/19/17 08:08 150 MG Rosuvastatin Calcium (Crestor Tab) 40 mg HS PO 10/16/17 21:00 11/15/17 20:59 10/18/17 19:34 40 MG Insulin Aspart (novoLOG ASPART) SLIDING SCALE If C... ACHS SC 10/16/17 17:15 11/15/17 17:14 10/18/17 21:02 7 UNITS Glucose (Glucose 40% Gel) 15-30 GRAMS 15 GRAMS... UD PRN PO 10/16/17 15:45 11/15/17 15:44 Glucose (Glucose Chew Tab) 4-8 Tablets 4 Tabl... UD PRN PO 10/16/17 15:45 11/15/17 15:44 Dextrose (Dextrose 50% 50ML Syringe) 25-50ML OF 50% DW IV FOR... UD PRN IV 10/16/17 15:45 11/15/17 15:44 Glucagon (Glucagon Inj) 1 mg UD PRN SQ 10/16/17 15:45 11/15/17 15:44 Miscellaneous Information (Consult Glycemic Management Pharmacy) 1 ea UD PRN N/A 10/16/17 15:45 11/15/17 15:44 Insulin Glargine (Lantus Solostar Pen) 25 units HS SC 10/17/17 21:00 11/16/17 20:59 10/18/17 21:05 25 UNITS Cefepime HCl (Consult) 1 ea UD PRN N/A 10/17/17 13:00 11/16/17 12:59 Cefepime HCl 2000 mg/Syringe 20 ml @ 5 mls/min Q8@0200,1200,2000 IV 10/17/17 20:00 10/24/17 19:59 10/19/17 01:47 5 MLS/MIN Insulin Human NPH (novoLIN-N NPH) 15 units DAILYBL SC 10/18/17 11:00 11/17/17 10:59 Future Hold 10/18/17 12:03 15 UNITS Oxycodone/ Acetaminophen (Percocet 5-325mg Tab) 1 tab Q6H PRN PO 10/18/17 08:00 10/30/17 15:44 10/19/17 08:27 1 TAB Physical Exam Vital Signs Past 12 Hours Date Time Temp Pulse Resp B/P (MAP) Pulse Ox O2 Delivery O2 Flow Rate FiO2 10/19/17 08:01 36.3 52 20 114/72 (86) 95 Room Air 10/19/17 08:00 93 Room Air 10/19/17 04:00 Room Air 10/19/17 03:28 36.3 63 23 135/68 (90) 93 Room Air 10/18/17 23:59 Room Air 10/18/17 23:55 36.3 68 18 131/78 (95) 98 Room Air The patient is alert and oriented. Mood and affect appeared normal. He answered all questions appropriately. HEENT: Pupils are equal and reactive to light and accommodation. Extraocular movements are intact. The sclerae are anicteric. Neuro: Cranial nerves intact Neck: Patient's neck is supple. He has palpable carotid pulses bilaterally without bruits on auscultation. There is no evidence of jugular venous distention. The thyroid is not enlarged. Lungs: Coarse breath sounds bilaterally. There is some upper airway congestion. No expiratory wheezing. Normal respiratory effort. Cardiac: Heart demonstrates a regular rate and rhythm. Normal S1 and S2. No murmurs on examination. Pulses: The patient has palpable radial pulses bilaterally that are equal in intensity but weak overall. Extremities: There was no evidence of hypoperfusion. There is no cyanosis or clubbing. Bilateral lower extremity edema right greater than left Skin: I did not appreciate any rashes on examination today. Data Laboratory Results: Last 24 Hours Test 10/18/17 11:25 10/18/17 11:46 10/18/17 16:28 10/18/17 17:39 Prothrombin Time 43.5 SECONDS Prothromb Time International Ratio 4.3 Bedside Glucose 126 mg/dl 180 mg/dl Random Vancomycin Level 31.1 mcg/ml Test 10/18/17 20:46 10/19/17 06:02 10/19/17 06:29 Bedside Glucose 197 mg/dl 132 mg/dl Prothrombin Time 19.6 SECONDS Prothromb Time International Ratio 1.9 Imaging: Chest x-ray suggested an element of multifocal pneumonia EKG: Sinus bradycardia with prolonged QT interval Telemetry reviewed: Sinus rhythm with sinus bradycardia CT of the abdomen and pelvis revealed nisreen renal masses which appear to be chronic perhaps slightly larger. 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 He has a history of atrial fibrillation requiring cardioversion but did not tolerate antiarrhythmic therapy due to an element of bradycardia. He was on a very low dose of sotalol at that time. He undoubtedly will require some element of rate control and will require permanent pacemaker in order to prevent bradycardia. He appears to have intact AV conduction and a narrow complex QRS. I think he is best suited for a dual-chamber device and will likely require only atrial pacing in the beginning. I described the risks benefits and alternatives to the patient today. He is willing to proceed. He was thought to have evidence of a pneumonia on his chest x-ray. He has been on antibiotic therapy for few days. He does not have a leukocytosis or any fevers. I think it is safe to proceed from an infection standpoint. 2. Atrial fibrillation: Patient currently in sinus rhythm. He has significantly prolonged QT interval with low doses of sotalol. Some of this may been related to his bradycardia. However, he does not appear to be a good candidate for this medication certainly in the absence of rate support. He has been appropriately anticoagulated. INR seems reasonable today for proceeding with pacemaker implantation.
--- NOTE | 2017-10-19 12:53 | Pre Sedation Assessment ---
Pre Sedation Assessment General Date of Sedation: Oct 19, 2017. Vital Signs Past 12 Hours Date Time Temp Pulse Resp B/P (MAP) Pulse Ox O2 Delivery O2 Flow Rate FiO2 10/19/17 12:00 93 Room Air 10/19/17 11:56 36.7 54 20 119/71 (87) 91 Room Air 10/19/17 08:01 36.3 52 20 114/72 (86) 95 Room Air 10/19/17 08:00 93 Room Air 10/19/17 04:00 Room Air 10/19/17 03:28 36.3 63 23 135/68 (90) 93 Room Air Review Cardiovascular: regular rate, rhythm Lungs: + crackles Pre-Sedation Airway Assessment Smoking Status: Former Smoker Hx of Sleep Apnea: No Hx of difficult intubation: No Short Thick Neck: No Thyro-mental Distance: > 3 Finger Breadths Oral Cavity: Dentures Mallampati Classification: Class III ASA Classification: Class III NPO Status Date of Last Intake of Fluids: Oct 19, 2017 Time of Last Intake of Fluids: 0000 Date of Last Intake of Solids: Oct 18, 2017 Time of Last Intake of Solids: 2200 Procedure Planning Contraindications for Sedation: None Current Medications Reviewed: Yes Notes The planned sedation has been discussed with the patient. Informed Consent was obtained. I have identified the patient, determined the appropriateness of sedation and have assessed the patient immediately prior to the procedure. All medicine(s) and interventions are by my order.
[2017-10-19] MEDS ORDERED: FENTANYL CITRATE INJ 50 MCG/1 ML 2 ML VIAL ONE (12:56)
[2017-10-19] MEDS ORDERED: MIDAZOLAM HCL 5 MG/ML 1 ML VIAL ONE (12:56)
[2017-10-19] MEDS ORDERED: CEFAZOLIN SOD 1 GM VIAL ONE (12:57)
[2017-10-19] MEDS ORDERED: LIDOCAINE HCL 1% 20 ML VIAL ONE (12:57)
[2017-10-19] MEDS ORDERED: BACITRACIN 50000 UNIT VIAL ONE (12:57)
[2017-10-19] MEDS ORDERED: BUPIVACAINE 0.5 % 5 MG/1 ML MPF 30ML VIAL ONE (12:57)
--- NOTE | 2017-10-19 13:24 | Pharmacy Progress Note ---
Pharmacy Glycemic Short Note 2 Date of Service Oct 19, 2017. OUTPATIENT ANTIDIABETIC REGIMEN: * Lantus 30 units SQ HS * NovoLog per scale * if no food >= 189 then usually 2 units ASSESSMENT: * 72 yr old T2DM male admitted secondary to fall. * Patient received 69 units of SQ insulin over the past 24 hours: * 40 units of basal * 29 units of bolus * BSG yesterday were [phone] * Fasting BSG of 132 mg/dL today is within goal range. Patient is currently NPO for pacer procedure- he has missed both breakfast and lunch. Held NPH as uncertain if patient would have procedure in time to give NPH. Since he has missed both meals, it is ineffective to give NPH as the peak of it would not correspond with prednisone. Continue Lantus. Fasting is much improved so the patient may require an increase tomorrow whenever he is not NPO. Will tighten Novolog for tonight since NPH was held * Post-prandial BSGs increase throughout the day. This is likely due to steroid induced hyperglycemia; currently on prednisone 40 mg daily. NPH was started yesterday and appeared to be too low. Will be increased for tomorrow as two blood sugars were above goal range. Increase to 25 units (0.25 units/kg). PLAN FOR INPATIENT GLYCEMIC CONTROL: * Basal insulin * Lantus 25 units SQ daily * INCREASE NPH 25 units SQ before lunch * Bolus insulin * NovoLog per scale ACHS or Q6hrs while NPO * Goal Range: Low 110 mg/dL - High 140 mg/dL * Correction Factor: 20 mg/dL/unit * Nutritional / Prandial insulin per carb ratio of 1 unit per 6 grams CHO consumed
--- NOTE | 2017-10-19 13:46 | Cardiology Follow-Up ---
Subjective Subjective Date of Service: Oct 19, 2017. Pt evaluation today including: conversation w/ patient, physical exam, chart review, lab review, review of studies, review of inpatient medication list Additional Details: Pt seen and examined, states that he feels well. No events overnight. Denies cp , sob, palpitations, lightheadedness or dizziness. Tele reviewed: sinus bradycardia without arrhythmia. Problem List Medical Problems: (1) Aspiration pneumonia Status: Acute (2) Aspiration pneumonia Status: Acute (3) Bronchitis Status: Acute (4) Chest pain Status: Acute (5) Hypoxia Status: Acute (6) Hypoxia Status: Acute (7) Hypoxia Status: Acute (8) Pneumonia Status: Acute (9) Vomiting Status: Acute Review of Systems Respiratory: No see HPI, No cough, No sputum, No wheezing, No shortness of breath, No dyspnea on exertion, No dyspnea at rest, No hemoptysis, No problem reported Cardiac: + chest pain, No see HPI, No orthopnea, No PND, No edema, No claudication, No palpitations, No problem reported Objective Vital Signs Last Vital Signs Documentation Date Time Temp Pulse Resp B/P (MAP) Pulse Ox O2 Delivery O2 Flow Rate FiO2 10/19/17 12:00 93 Room Air 10/19/17 11:56 36.7 54 20 119/71 (87) 10/17/17 04:00 2.0 Physical Exam: General Appearance: WD/WN, no apparent distress Eyes: bilateral eyes normal inspection, bilateral eyes PERRL, bilateral eyes EOMI ENT: normal ENT inspection, hearing grossly normal, pharynx normal, + pertinent finding (poor dentition) Neck: supple, no adenopathy, thyroid normal, no JVD, no carotid bruits, trachea midline Respiratory/Chest: no respiratory distress, no accessory muscle use, + rhonchi (diffuse) Cardiovascular: regular rate, rhythm, no JVD, + systolic murmur, + gallop/S4 Abdomen: normal bowel sounds, non tender, soft, no organomegaly Extremities: normal inspection, no pedal edema, no calf tenderness Neurologic/Psychiatric: 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 chest pain s/p fall old rib fractures on right, none on left likely due to bruised ribs percocet has been increased in frequency and currently controlled 2. paf has remained in sinus QTc has significantly improved again, do not believe he is a Sotalol candidate at this point given risk for V-tach along with underlying CAD cont coumadin, INR of 1.9 today after receiving Vitamin K on 10/18 since he has remained in sinus no need for bridge will follow and replete lytes as needed unable to start rate controlling agents given current bradycardia historically did not tolerate rate controlled afib in the past for PPM placement today, will then start metoprolol this PM 3. hypotensive resolved 4. bradycardia after further discussion patient does appear to be symptomatic also, unable to protect against afib at this point for dual chamber ppm placement today cont to monitor on tele
--- NOTE | 2017-10-19 14:01 | Cardiology Procedure Brief Nt ---
Preliminary Cardiology Note Procedure Date Oct 19, 2017. Pre-Procedure Diagnosis Tachy-melissa syndrome Post-Procedure Diagnosis Same Procedure(s) Performed Implantation of dual-chamber Medtronic pacemaker Case Specialist Malika Insole And Outsole Preparer(s) None Estimated Blood Loss 5 cc Preliminary Findings Successful implant of dual-chamber pacemaker without complication Recommendations Bed rest overnight. Additional doses of antibiotics. Reinterrogation in the morning. Specimens None Complication(s) None Disposition PCU
--- NOTE | 2017-10-19 15:52 | [facility] Operative Report ---
Operative Report Date of Service Oct 19, 2017. Operative Report Procedure performed: Implantation of dual-chamber permanent pacemaker Staff tie buyer: Jeff Daly MD Indication: Procedure in detail: The patient was informed of the risks benefits and alternatives to the intended procedure and she wished to proceed. He was taken to the electrophysiology suite in a fasting state. A preoperative antibiotic had been administered. The patient was monitored electrocardiographically throughout today's procedure and conscious sedation was administered per protocol. The left upper pectoral area is prepped and draped in usual sterile fashion. This area was anesthetized using subcutaneous menstruation of a xylocaine solution. An incision was made at this site and carried down to the prepectoralis fascia using sharp dissection. Electrocautery was also employed for dissection as well as for hemostasis. A device pocket was fashioned tissues above the pectoralis muscle. Subsequent to this maneuver the left axillary vein was accessed using modified Seldinger technique. Sheaths were placed over guidewires at this site and used to facilitate passage of the pacing leads to the respective chambers under fluoroscopic guidance. This included right atrial and right ventricular leads. Adequate sensing and threshold parameters were obtained prior to Active fixation of the leads to the endocardial surface. The proximal portion leads were then sutured the prepectoral fascia using nonabsorbable suture. The device pocket was irrigated with antibiotic solution. The leads were then attached to the device. The device and leads were then placed in the pocket and pocket was closed in 3 layers of absorbable suture. Steri-Strips and sterile dressing were applied. The device was tested noninvasively prior to conclusion the procedure. The patient tolerated procedure well there no immediate complications. Equipment used: New pulse generator: [employer] MedPure Focus. Model number: W 1 DR 0 1 serial number [id number] Right atrial lead: [employer] Medtronic. Model number:4076 serial number [id number] Right ventricular lead: [employer] Medtronic. Model number: 4076 serial number [id number] Measured data: Right atrial lead: P-waves measured 3.3 millivolts. Pacing threshold was 0.75 volts at 0.4 milliseconds with a pacing impedance of 399 Ohms Right ventricular lead: R-waves measured 6.4 millivolts. Pacing threshold 0.5 volts at 0.4 milliseconds with a pacing impedance of 532 Ohms Impression: Successful implantation of dual-chamber permanent pacemaker I attest to the content of the Intraoperative Record and any orders documented therein. Any exceptions are noted below.
[2017-10-19] MEDS ORDERED: LIDODERM (LIDOCAINE) PATCH 5% TD SCH (17:30)
--- NOTE | 2017-10-19 18:27 | Progress Note ---
Medicine Progress Note Date & Time of Visit: Oct 19, 2017 at 14:10. Subjective 72-year-old man with history of COPD, CAD, stroke, A. fib, diabetes presents to the ER after a fall at home which was associated with one episode of vomiting did the patient reports feeling lightheaded prior to the fall which occurred in his kitchen and was associated with lightheadedness and palpitations. Review of telemetry overnight reveals sinus bradycardia with intermittent pauses < 4secs. Rib pain causing some issues with him. He is tolerating p.o. He reports he is ambulating at baseline. Objective Last 8 Hrs Date Time Temp Pulse Resp B/P (MAP) Pulse Ox O2 Delivery O2 Flow Rate FiO2 10/19/17 12:00 93 Room Air 10/19/17 11:56 36.7 54 20 119/71 (87) 91 Room Air 10/19/17 08:01 36.3 52 20 114/72 (86) 95 Room Air 10/19/17 08:00 93 Room Air Physical Exam: GEN: WNWD, in no acute distress, alert and appropriate HEENT: NC/AT, pupils are round and equal bilaterally, normal sclerae, MMM CARDIO: reg rate, S1/2 heard without m/g/r. LUNGS: Coarse rhonchi throughout no wheezes or rails ABD: soft, non-tender, non-distended, no rebound or guarding, +BS EXTREMITY: RP and DP palpable 2+ bilat, no LE swelling or edema, extremities are warm and well-perfused NEURO: CN 2-12 grossly intact MUSC: Moves all extremities equally, no gross focal deficits. Appears generally weak SKIN: warm and dry Laboratory Results: 10/18/17 05:30 10/18/17 05:30 Test 10/16/17 11:20 10/16/17 13:42 10/16/17 14:25 10/17/17 04:14 Immature Granulocyte % (Auto) 0.3 % White Blood Count 9.39 K/uL (4.8-10.8) Red Blood Count 4.93 M/uL (4.7-6.1) Hemoglobin 13.4 g/dL (14.0-18.0) Hematocrit 41.0 % (42-52) Mean Corpuscular Volume 83.2 fL (80-100) Mean Corpuscular Hemoglobin 27.2 pg (25-34) Mean Corpuscular Hemoglobin Concent 32.7 g/dl (32-36) Platelet Count 303 K/uL (130-400) Mean Platelet Volume 9.0 fL (7.4-10.4) Neutrophils (%) (Auto) 77.8 % Lymphocytes (%) (Auto) 12.5 % Monocytes (%) (Auto) 7.0 % Eosinophils (%) (Auto) 2.0 % Basophils (%) (Auto) 0.4 % Neutrophils # (Auto) 7.30 K/uL (1.4-6.5) Lymphocytes # (Auto) 1.17 K/uL (1.2-3.4) Monocytes # (Auto) 0.66 K/uL (0.11-0.59) Eosinophils # (Auto) 0.19 K/uL (0-0.5) Basophils # (Auto) 0.04 K/uL (0-0.2) Immature Granulocyte # (Auto) 0.03 K/uL (0.00-0.02) Magnesium Level 1.7 mg/dl (1.8-2.4) Total Bilirubin 0.9 mg/dl (0.2-1) Direct Bilirubin 0.4 mg/dl (0-0.2) Aspartate Amino Transf (AST/SGOT) 38 U/L (15-37) Alanine Aminotransferase (ALT/SGPT) 17 U/L (12-78) Alkaline Phosphatase 214 U/L (45-117) Total Protein 8.1 gm/dl (6.4-8.2) Albumin 2.4 gm/dl (3.4-5.0) Lipase 64 U/L (73-393) Bedside Lactic Acid Venous 1.54 mmol/L (0.90-1.70) Urine Color YELLOW Urine Appearance CLEAR (CLEAR) Urine pH 7.5 (4.5-7.5) Urine Specific [place] 1.022 (1.000-1.030) Urine Protein NEG (NEG) Urine Glucose (UA) NEG (NEG) Urine Ketones NEG (NEG) Urine Occult Blood TRACE (NEG) Urine Nitrite NEG (NEG) Urine Bilirubin NEG (NEG) Urine Urobilinogen NEG (NEG) Urine Leukocyte Esterase NEG (NEG) Urine WBC (Auto) 1-5 /hpf (0-5) Urine RBC (Auto) 0-4 /hpf (0-4) Urine Hyaline Casts (Auto) 1-5 /lpf (0-5) Urine Epithelial Cells (Auto) 20-30 /lpf (0-5) Urine Bacteria (Auto) NEG (NEG) Troponin I < 0.015 ng/ml (0-0.045) Test 10/18/17 05:30 10/18/17 17:39 10/19/17 06:02 10/19/17 16:36 Red Blood Count 4.22 M/uL (4.7-6.1) Mean Corpuscular Volume 84.8 fL (80-100) Mean Corpuscular Hemoglobin 27.0 pg (25-34) Mean Corpuscular Hemoglobin Concent 31.8 g/dl (32-36) RDW Standard Deviation 48.2 fL (36.4-46.3) RDW Coefficient of Variation 15.5 % (11.5-14.5) Mean Platelet Volume 9.6 fL (7.4-10.4) Anion Gap 7.0 mmol/L (3-11) Est Creatinine Clear Calc Drug Dose 67.3 ml/min Estimated GFR () 65.9 Estimated GFR (Non- 56.9 BUN/Creatinine Ratio 17.7 (10-20) Calcium Level 8.7 mg/dl (8.5-10.1) Random Vancomycin Level 31.1 mcg/ml Prothrombin Time 19.6 SECONDS (9.0-12.0) Prothromb Time International Ratio 1.9 (0.9-1.1) Bedside Glucose 241 mg/dl (70-99) Date/Time Source Procedure Growth Status 10/16/17 00:00 Nasal MRSA DNA Surveillance Screen - Final Specimen Positive for MRSA by DNA Probe Complete 10/17/17 08:40 Sputum Expectorated Sputum Gram Stain - Final Complete 10/17/17 08:40 Sputum Expectorated Sputum Sputum Culture - Final MODERATE NORMAL AMANDA. Complete Last 24 Hours Test 10/18/17 16:28 10/18/17 17:39 10/18/17 20:46 10/19/17 06:02 Bedside Glucose 180 mg/dl 197 mg/dl Random Vancomycin Level 31.1 mcg/ml Prothrombin Time 19.6 SECONDS Prothromb Time International Ratio 1.9 Test 10/19/17 06:29 Bedside Glucose 132 mg/dl Assessment & Plan 72-year-old man with history of COPD, CAD, stroke, A. fib, diabetes presents to the ER after a fall at home which was associated with one episode of vomiting did the patient reports feeling lightheaded prior to the fall which occurred in his kitchen and was associated with lightheadedness and palpitations. Review of telemetry overnight reveals sinus bradycardia with intermittent pauses < 4secs. Rib pain causing some issues with him. He is tolerating p.o. He reports he is ambulating at baseline. 1. Multifocal pneumonia-overall there is clinical improvement and patient is oxygenating well on room air without fevers or chills. However, there is still coarse rhonchi on exam which is improved but would like to continue IV antibiotics while inpatient. Plan to transition to oral antibiotics in the next 1-2 days. 2. Acute COPD exacerbation-no hypoxia at this time, diffuse wheezing and rales have resolved. Continue prednisone 40 mg daily, flutter valve, nebulizer treatments. Continue antibiotics per #1. 3. Bradycardia-pacemaker placement planned for today. 4. Chronic atrial fibrillation-currently sinus rhythm on anticoagulation with supratherapeutic INR. Warfarin held. Vit K given in preparation for procedure. History important for hospital admission in August 2017 for new onset atrial fibrillation status post DC cardioversion and sotalol loading. Sotalol dose reduced in clinic on 09/25 due to bradycardia. Sotalol held on admission. Pacemaker today. 5. Diabetes type 2-continue insulin sliding scale with carb coverage and Lantus. Currently at goal. 6. CAD-appears stable as discussed above. Continue aspirin, statin, nitrate with changes per cardiology recommendations. 7. Ischemic cardiomyopathy- management per #6 8. History of DVT/PE-Coumadin as above 9. 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 No outpatient records on workup for this. Urology consulted and feels appropriate for outpatient follow-up. They will contact the patient to set this up upon discharge. DVT prophylaxis-Coumadin Full code Disposition-continue telemetry monitoring, appreciate cardiology recDO Joaquín [facility] Consultants: CardiologyJoe Current Inpatient Medications: Current Inpatient Medications Medications (Trade) Dose Ordered Sig/Kendrick Route Start Time Stop Time Status Last Admin Dose Admin Ioversol (Optiray 320) 111 ml UD PRN IV 10/16/17 11:30 10/20/17 11:29 Acetaminophen (Tylenol Tab) 650 mg Q4H PRN PO 10/16/17 14:45 11/15/17 14:44 Prednisone (PredniSONE TAB) 40 mg DAILY PO 10/17/17 09:00 10/21/17 09:01 10/19/17 08:08 40 MG Allopurinol (Zyloprim Tab) 300 mg DAILY PO 10/17/17 09:00 11/16/17 08:59 10/19/17 08:08 300 MG Aspirin (Ecotrin Tab) 325 mg DAILY PO 10/17/17 09:00 11/16/17 08:59 10/19/17 08:09 325 MG Isosorbide Dinitrate (Isordil Tab) 40 mg DAILY PO 10/17/17 09:00 11/16/17 08:59 10/19/17 08:09 40 MG Montelukast Sodium (Singulair Tab) 10 mg QPM PO 10/16/17 21:00 11/15/17 20:59 10/18/17 19:34 10 MG Primidone (Mysoline Tab) 500 mg HS PO 10/16/17 21:00 11/15/17 20:59 10/18/17 19:34 500 MG Ranitidine HCl (zANTac TAB) 150 mg BID PO 10/16/17 21:00 11/15/17 20:59 10/19/17 08:08 150 MG Rosuvastatin Calcium (Crestor Tab) 40 mg HS PO 10/16/17 21:00 11/15/17 20:59 10/18/17 19:34 40 MG Insulin Aspart (novoLOG ASPART) SLIDING SCALE If C... ACHS SC 10/16/17 17:15 11/15/17 17:14 10/18/17 21:02 7 UNITS Glucose (Glucose 40% Gel) 15-30 GRAMS 15 GRAMS... UD PRN PO 10/16/17 15:45 11/15/17 15:44 Glucose (Glucose Chew Tab) 4-8 Tablets 4 Tabl... UD PRN PO 10/16/17 15:45 11/15/17 15:44 Dextrose (Dextrose 50% 50ML Syringe) 25-50ML OF 50% DW IV FOR... UD PRN IV 10/16/17 15:45 11/15/17 15:44 Glucagon (Glucagon Inj) 1 mg UD PRN SQ 10/16/17 15:45 11/15/17 15:44 Miscellaneous Information (Consult Glycemic Management Pharmacy) 1 ea UD PRN N/A 10/16/17 15:45 11/15/17 15:44 Insulin Glargine (Lantus Solostar Pen) 25 units HS SC 10/17/17 21:00 11/16/17 20:59 10/18/17 21:05 25 UNITS Cefepime HCl (Consult) 1 ea UD PRN N/A 10/17/17 13:00 11/16/17 12:59 Cefepime HCl 2000 mg/Syringe 20 ml @ 5 mls/min Q8@0200,1200,2000 IV 10/17/17 20:00 10/24/17 19:59 10/19/17 12:53 5 MLS/MIN Insulin Human NPH (novoLIN-N NPH) 15 units DAILYBL SC 10/18/17 11:00 11/17/17 10:59 Future hold 10/18/17 12:03 15 UNITS Oxycodone/ Acetaminophen (Percocet 5-325mg Tab) 1 tab Q6H PRN PO 10/18/17 08:00 10/30/17 15:44 10/19/17 08:27 1 TAB
[2017-10-19] MEDS ORDERED: ALBUT/IPRATROP 3MG/0.5MG NEB 3 ML VIAL INH PRN (18:30)
[2017-10-19] MEDS: PRIMIDONE 250 MG TAB PO SCH (21:27)
[2017-10-19] MEDS: MONTELUKAST SOD 10 MG TAB PO SCH (21:28)
[2017-10-19] MEDS: ROSUVASTATIN CALCIUM 20 MG TAB PO SCH (21:29)
[2017-10-19] MEDS: INSULIN GLARGINE SOLOSTAR 100 UNITS/ML 3 ML PEN SC SCH (21:33)
[2017-10-20] MEDS: OXYCODONE/ACETAMINOPHEN 5-325 TAB PO PRN ×2 (00:16→08:45)
[2017-10-20] MEDS: CEFEPIME IV 2,000 MG in SYRINGE 7.5 ML IV SCH ×2 (02:09→12:02)
[2017-10-20 04:31] VITALS: BP 148/80; PULSE 61; TEMP 36.3; O2SAT 96
[2017-10-20 05:42] LABS: HEMOGLOBIN 12.3 g/dL (14.0-18.0); MEAN CELL VOLUME 83.9 fL (80-100); MEAN CORPUSCULAR HEMOGLOBIN 27.2 pg (25-34); MEAN CORPUSCULAR HGB CONC 32.4 g/dl (32-36); MEAN PLATELET VOLUME 9.2 fL (7.4-10.4); PLATELET COUNT 216 K/uL (130-400); RED CELL DISTRIBUTION WIDTH CV 15.3 % (11.5-14.5); RED CELL DISTRIBUTION WIDTH SD 46.7 fL (36.4-46.3); WHITE BLOOD COUNT 11.36 K/uL (4.8-10.8)
[2017-10-20 05:50] LABS: INR 1.3 (0.9-1.1)
[2017-10-20 06:21] LABS: CALCIUM 9.3 mg/dl (8.5-10.1); CREATININE 1.13 mg/dl (0.60-1.40); POTASSIUM 4.6 mmol/L (3.5-5.1)
--- NOTE | 2017-10-20 06:51 | DIAGNOSTIC IMAGING REPORT ---
CHEST 2 VIEWS ROUTINE CLINICAL HISTORY: Pacemaker insertion. COMPARISON STUDY: Chest radiograph and rib series October 17, 2017. FINDINGS: There has been interval placement of a dual lead left subclavian pacemaker. Lead tips project over the right atrial appendage and right ventricle. There is moderate cardiomegaly. There is no evidence for pulmonary edema. Trace left pleural effusion is noted. There are mild bibasilar opacities. A 3.1 cm nodular opacity lateral to left hilum is noted. This was shown on previous exam. Multiple right-sided rib fractures are noted. IMPRESSION: 1. No pneumothorax following placement of a dual lead left subclavian pacemaker. 2. 3.1 cm nodular opacity lateral to the left hilum. This was shown on previous exam. This may reflect a focus of pneumonia. However, radiographic follow-up is recommended to exclude the possibility of an underlying pulmonary lesion. 3. Trace left pleural effusion. 4. No evidence for pulmonary edema. Electronically signed by: Supa Bassett M.D. 10/20/2017 6:49 AM Dictated Date/Time: 10/20/2017 6:45 AM
[2017-10-20 08:00] VITALS: O2SAT 93
[2017-10-20 08:21] VITALS: BP 106/65; PULSE 59; TEMP 36.8; O2SAT 92
--- NOTE | 2017-10-20 08:29 | Cardiology Follow-Up ---
Subjective Date of Service: Oct 20, 2017. Pt evaluation today including: conversation w/ patient, physical exam History of Present Illness Feeling well. More energy. Minimal pain at the implant site. Social History Smoking Status: Former Smoker History of Alcohol Use: No Review of Systems Respiratory: No see HPI, No cough, No sputum, No wheezing, No shortness of breath, No dyspnea on exertion, No dyspnea at rest, No hemoptysis, No problem reported Cardiac: + chest pain, No see HPI, No orthopnea, No PND, No edema, No claudication, No palpitations, No problem reported Per HPI. Patient also noted some lower extremity edema which is chronic. Right greater than left. Objective Vital Signs Past 12 Hours Date Time Temp Pulse Resp B/P (MAP) Pulse Ox O2 Delivery O2 Flow Rate FiO2 10/20/17 08:21 36.8 59 18 106/65 (79) 92 Room Air 10/20/17 04:31 36.3 61 20 148/80 (102) 96 Room Air 10/20/17 04:00 Room Air 10/20/17 00:00 Room Air 10/19/17 23:27 36.5 60 20 136/61 (86) 95 Room Air Last Recorded Weight-Kilograms: 97.300 Physical Exam The patient is alert and oriented. Mood and affect appeared normal. He answered all questions appropriately. Minor bruising at the implant site. No hematoma. . Data Laboratory Results: Last 24 Hours Test 10/19/17 11:03 10/19/17 16:36 10/19/17 20:16 10/20/17 05:31 Bedside Glucose 124 mg/dl 241 mg/dl 187 mg/dl Prothrombin Time 13.1 SECONDS Prothromb Time International Ratio 1.3 Test 10/20/17 05:32 10/20/17 07:07 White Blood Count 11.36 K/uL Red Blood Count 4.53 M/uL Hemoglobin 12.3 g/dL Hematocrit 38.0 % Mean Corpuscular Volume 83.9 fL Mean Corpuscular Hemoglobin 27.2 pg Mean Corpuscular Hemoglobin Concent 32.4 g/dl RDW Standard Deviation 46.7 fL RDW Coefficient of Variation 15.3 % Platelet Count 216 K/uL Mean Platelet Volume 9.2 fL Sodium Level 131 mmol/L Potassium Level 4.6 mmol/L Chloride Level 99 mmol/L Carbon Dioxide Level 27 mmol/L Anion Gap 5.0 mmol/L Blood Urea Nitrogen 21 mg/dl Creatinine 1.13 mg/dl Est Creatinine Clear Calc Drug Dose 68.7 ml/min Estimated GFR () 75.9 Estimated GFR (Non- 65.5 BUN/Creatinine Ratio 18.8 Random Glucose 162 mg/dl Calcium Level 9.3 mg/dl Bedside Glucose 161 mg/dl Imaging: CXR demonstrates good lead position. No PTX Device interrogation reveals good function on both leads. 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 Keep wound dry for 1 week and steri-strip intact until f/u for wound check. No lifting left arm above shoulder or behind neck for 6 weeks. OK to D/C home from a pacemaker standpoint.
[2017-10-20] MEDS: ALLOPURINOL 300 MG TAB PO SCH (08:34)
[2017-10-20] MEDS: ASPIRIN 325 MG ECTAB PO SCH (08:35)
[2017-10-20] MEDS: RANITIDINE HCL 150 MG TAB PO SCH (08:36)
[2017-10-20] MEDS: ISOSORBIDE DINITRATE 40 MG TAB PO SCH (08:36)
[2017-10-20] MEDS: INSULIN ASPART 100 UNITS/ML 3 ML PEN SC SCH ×2 (08:40→11:59)
[2017-10-20] MEDS ORDERED: METOPROLOL SUCC 25MG EXT REL TAB PO SCH (09:00)
--- NOTE | 2017-10-20 09:22 | Pharmacy Progress Note ---
Pharmacy Glycemic Short Note 2 Date of Service Oct 20, 2017. OUTPATIENT ANTIDIABETIC REGIMEN: * Lantus 30 units SQ HS * NovoLog per scale * if no food >= 189 then usually 2 units ASSESSMENT: * 72 yr old T2DM male admitted secondary to fall. * Patient received 45 units of SQ insulin over the past 24 hours (NPO for breakfast and lunch): * 25 units of basal * 20 units of bolus * BSG yesterday were [phone] * Fasting BSG of 161 mg/dL today is above goal range. Increase Lantus to home dose of 30 units tonight as fasting is trending upwards. Continue with NPH 25 units with lunch today (0.25 units/kg). This is slightly higher than 10/18/17 when patient got 0.15 units/kg for prednisone 40 mg. * Post-prandial BSGs increase throughout the day. Patient did not receive NPH yesterday as he was NPO for most of the day. He did have two elevated blood sugars at dinner and bedtime indicating that a small dose should have been given. Loosen Novolog parameter since increased dose of NPH will be given today. New parameters appeared to work on 10/18/17 for breakfast. PLAN FOR INPATIENT GLYCEMIC CONTROL: * Basal insulin * Lantus 30 units SQ daily at bedtime * INCREASE NPH 25 units SQ before lunch * Bolus insulin * NovoLog per scale ACHS or Q6hrs while NPO * Goal Range: Low 110 mg/dL - High 140 mg/dL * Correction Factor: 25 mg/dL/unit * Nutritional / Prandial insulin per carb ratio of 1 unit per 8 grams CHO consumed RECOMMENDATIONS FOR DISCHARGE * Patient has poorly controlled type 2 diabetes.... recommend working with provider as an outpatient and titrating insulin as appropriate. May benefit from slightly more Novolog with meals.
[2017-10-20] MEDS ORDERED: WARFARIN SOD 5 MG TAB PO ONE (09:30)
--- NOTE | 2017-10-20 10:26 | Cardiology Follow-Up ---
Subjective Subjective Date of Service: Oct 20, 2017. Pt evaluation today including: conversation w/ patient, physical exam, chart review, lab review, review of studies, review of inpatient medication list Additional Details: Pt seen and examined, states that she feels well. More energy. Does still have rib discomfort, otherwise, denies sob, palpitations, lightheadedness or dizziness. Tele reviewed: sinus rhythm with an occasional paced rhythm. Problem List Medical Problems: (1) Aspiration pneumonia Status: Acute (2) Aspiration pneumonia Status: Acute (3) Bronchitis Status: Acute (4) Chest pain Status: Acute (5) Hypoxia Status: Acute (6) Hypoxia Status: Acute (7) Hypoxia Status: Acute (8) Pneumonia Status: Acute (9) Vomiting Status: Acute Review of Systems Respiratory: No see HPI, No cough, No sputum, No wheezing, No shortness of breath, No dyspnea on exertion, No dyspnea at rest, No hemoptysis, No problem reported Cardiac: + chest pain, No see HPI, No orthopnea, No PND, No edema, No claudication, No palpitations, No problem reported Objective Vital Signs Last Vital Signs Documentation Date Time Temp Pulse Resp B/P (MAP) Pulse Ox O2 Delivery O2 Flow Rate FiO2 10/20/17 08:21 36.8 59 18 106/65 (79) 92 Room Air 10/17/17 04:00 2.0 Physical Exam: General Appearance: WD/WN, no apparent distress Eyes: bilateral eyes normal inspection, bilateral eyes PERRL, bilateral eyes EOMI ENT: normal ENT inspection, hearing grossly normal, pharynx normal, + pertinent finding (poor dentition) Neck: supple, no adenopathy, thyroid normal, no JVD, no carotid bruits, trachea midline Respiratory/Chest: no respiratory distress, no accessory muscle use, + rhonchi (diffuse) Cardiovascular: regular rate, rhythm, no JVD, + systolic murmur, + gallop/S4 Abdomen: normal bowel sounds, non tender, soft, no organomegaly Extremities: normal inspection, no pedal edema, no calf tenderness 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 chest pain s/p fall old rib fractures on right, none on left likely due to bruised ribs percocet has been increased in frequency will need close f/u as outpatient with pcp 2. paf has remained in sinus QTc has normalized again, do not believe he is a Sotalol candidate at this point given risk for V-tach along with underlying CAD will start metoprolol succinate 25 mg daily now restart coumadin, in sinus does not require bridge will need close f/u with coumadin clinic as outpatient my office will arrange close f/u in 2-4 weeks with me 3. hypotensive resolved 4. bradycardia s/p successful dual chamber ppm placement my office will call to schedule wound check for 1 week and enroll in our pacer clinic Ok to d/c to home
[2017-10-20] MEDS ORDERED: INSULIN HUMAN NPH SC SCH (11:00)
[2017-10-20 11:31] VITALS: BP 106/64; PULSE 57; TEMP 36.3; O2SAT 93
[2017-10-20 12:00] VITALS: O2SAT 93
[2017-10-20] MEDS ORDERED: PRD20 PO (14:04)
[2017-10-20] MEDS ORDERED: AMOX875T PO (14:04)
[2017-10-20] MEDS ORDERED: LDDP5 TD ×2 (14:04→15:30)
[2017-10-20] MEDS ORDERED: TPRSR25 PO (14:04)
[2017-10-20] MEDS ORDERED: OXYC-57 PO (14:04)
--- NOTE | 2017-10-20 14:14 | Discharge Summary ---
Discharge Summary Date of Service Oct 20, 2017. Discharge Summary Admission Date: Oct 16, 2017 at 14:44 Discharge Date: Oct 20, 2017 Discharge Disposition: Home Consultations: [facility]iology-[place] Medication Reconciliation New Medications: Amoxicillin & Pot Clavulanate (Augmentin 875-125 mg) 1 Tab Tab 875 MG PO BID for 5 Days, #10 TAB Lidocaine (Lidocaine) 1 Patch Tdsy 1 PATCH TD Q24H for 15 Days, #15 PATCH 1 Refill Metoprolol Succinate (Metoprolol Succinate ER) 25 Mg Tabcr 25 MG PO QAM for 30 Days, #30 TAB 1 Refill Oxycodone/Acetaminophen 5MG/325MG (Percocet 5MG/325MG) Tab 1 TAB PO Q6H PRN for severe pain for 5 Days, #20 TAB PAIN Prednisone (Prednisone) 20 Mg Tab 40 MG PO DAILY for 3 Days, #6 TAB Continued Medications: Allopurinol (Allopurinol) 300 Mg Tab 300 MG PO DAILY Aspirin (Aspirin) 325 Mg Tab 325 MG PO DAILY Hydrocodone W/ Homatropine (Hycodan 5/1.5MG 5 Ml) 1 Syp Syp 5 ML PO HS PRN for Cough for 24 Days, #120 ML Insulin Aspart (Novolog) 100 Units/Ml Inj SLIDING SCALE if no food >= 189 then usually 2 units Insulin Glargine (Lantus) 100 Unit/Ml Inj 30 UNITS SC HS, VIAL Isosorbide Dinitrate (Isordil) 40 Mg Tab 40 MG PO DAILY Montelukast Sodium (Singulair) 10 Mg Tab 10 MG PO QPM Nitroglycerin (Nitrostat) 0.4 Mg Tab 0.4 MG UT UD PRN for Chest Pain, 0 Refills Primidone (Mysoline) 250 Mg Tab 500 MG PO HS, 0 Refills Ranitidine (Zantac) 150 Mg Tab 150 MG PO BID, 0 Refills Rosuvastatin Calcium (Crestor) 40 Mg Tab 40 MG PO HS Warfarin Sod (Jantoven) 2 Mg Tab 2 MG PO 2XWK WED AND SAT Warfarin Sod (Jantoven) 2 Mg Tab 4 MG PO 5XWK SUN, MON, TUES, THURS, FRI Discontinued Medications: Furosemide (Furosemide) 20 Mg Tab 20 MG PO BID Oxycodone/Acetaminophen 5MG/325MG (Percocet 5MG/325MG) Tab 1 TABLET PO BID PRN for Pain, TAB Sotalol Hcl (Afib/Afl) (Sotalol Hcl (Af)) 80 Mg Tab 40 MG PO BID Admission Information HPI (per Admitting provider): 72-year-old male who presents to the ER after suffering a fall subsequent vomiting and palpitations. Patient reports he was walking in his apartment building when he tripped over his walker and fell to the ground. He reports that when he fell he had onset of palpitations. He also had an episode of vomiting. He denies any hematemesis or coffee-ground emesis. No chest pain or shortness of breath. He denies any preceding lightheadedness, dizziness, or syncope. Patient reports he has been feeling well recently. He has underlying COPD and reports chronic wheezing and cough. He reports this is unchanged from his baseline. No abdominal pain, nausea, or diarrhea. He denies any fevers or chills. No urinary symptoms. In the ED, patient was found to be pale, diaphoretic, and hypoxic. Patient improved with IVF and application of supplemental oxygen. CT ABD/pelvis is negative for acute abdominal findings. Chest x-ray shows bibasilar opacities suggestive of multifocal pneumonia. Currently no leukocytosis or fever. K+ is found to be 2.8. EKG shows slow atrial fibrillation with prolonged QTC. Patient was given IVF, IV Zosyn, and IV Zofran. Physical Exam (per Admitting): General Appearance: WD/WN, no apparent distress Head: normocephalic, atraumatic Eyes: normal inspection, EOMI, sclerae normal ENT: hearing grossly normal, + pertinent finding (Mucous membranes moist) Neck: supple, no JVD, trachea midline Respiratory/Chest: no respiratory distress, + rhonchi (Scattered), + wheezing (Expiratory, scattered) Cardiovascular: + bradycardia (Heart rate in the 50s), + irregularly irregular, + pertinent finding (+1-2 edema BLLE) Abdomen/GI: normal bowel sounds, non tender, no organomegaly, + distended ( Soft) Extremities/Musculoskelatal: normal inspection, no calf tenderness, normal capillary refill Neurologic/Psych: no motor/sensory deficits, alert, normal mood/affect, oriented x 3 Skin: normal color, warm/dry Hospital Course 72-year-old man with history of COPD, CAD, stroke, A. fib, diabetes presents to the ER after a fall at home which was associated with one episode of vomiting did the patient reports feeling lightheaded prior to the fall which occurred in his kitchen and was associated with lightheadedness and palpitations. Review of telemetry overnight reveals sinus bradycardia with intermittent pauses < 4secs. Rib pain causing some issues with him. He is tolerating p.o. He reports he is ambulating at baseline. 1. Multifocal pneumonia-overall there is clinical improvement and patient is oxygenating well on room air without fevers or chills. However, there is still coarse rhonchi on exam which is improved but would like to continue IV antibiotics while inpatient. Plan to transition to oral antibiotics in the next 1-2 days. 2. Acute COPD exacerbation-no hypoxia at this time, diffuse wheezing and rales have resolved. Continue prednisone 40 mg daily, flutter valve, nebulizer treatments. Continue antibiotics per #1. 3. Bradycardia-pacemaker placement planned for today. 4. Chronic atrial fibrillation-currently sinus rhythm on anticoagulation with supratherapeutic INR. Warfarin held. Vit K given in preparation for procedure. History important for hospital admission in August 2017 for new onset atrial fibrillation status post DC cardioversion and sotalol loading. Sotalol dose reduced in clinic on 09/25 due to bradycardia. Sotalol held on admission. Pacemaker today. 5. Diabetes type 2-continue insulin sliding scale with carb coverage and Lantus. Currently at goal. 6. CAD-appears stable as discussed above. Continue aspirin, statin, nitrate with changes per cardiology recommendations. 7. Ischemic cardiomyopathy- management per #6 8. History of DVT/PE-Coumadin as above 9. 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 No outpatient records on workup for this. Urology consulted and feels appropriate for outpatient follow-up. They will contact the patient to set this up upon discharge. DVT prophylaxis-Coumadin Full code Disposition-continue telemetry monitoring, appreciate cardiology recs Juliana Anderson DO [facility] hospitalist Total time spent on discharge = 60 minutes This includes examination of the patient, discharge planning, medication reconciliation, and communication with other providers. Discharge Instructions [address] [address] Discharge Medical Patient Name: Ron Canseco Unit Number: [id number] Date of : 1945 Patient Status: Admitted Inpatient Attending Doctor: Juliana Anderson DO DI: Medical v5 Discharge Instructions Date of Service Oct 20, 2017. Admission Reason for Admission: FALL Discharge Discharge Diagnosis / Problem: Multifocal pneumonia, fall at home, tachybrady syndrome status post p.m. Discharge Goals Goal(s): Prevent Disease Progression Activity Recommendations Activity Limitations: per Instructions/Follow-up section . Instructions / Follow-Up Instructions / Follow-Up Please take all medications as instructed. Please note medication changes. Your Lasix was held at discharge; please follow-up with Dr. Mortensen prior to restarting this. Please resume Coumadin at home dose and follow with Coumadin clinic to adjust INR dosage. Please note your given vitamin K in the hospital to lower than goal. Coumadin clinic follow-up should be within the next week. Please follow-up in 2-4 weeks in the cardiology office per their instruction. Someone should be calling you to set this up. A follow-up chest x-ray is recommended in 4-6 weeks to ensure complete resolution of pneumonia. This can be ordered through your primary care doctor' s office. Please note you will need a referral for outpatient urology follow-up for the tracy-renal masses that were seen on imaging study while you were hospitalized. A referral can be given through your primary care doctor's office. You have a follow-up appointment with Dr. Ron Mortensen in the [facility] office on 10/26/2017 at 9:00 AM for follow-up of his hospitalization. It was a pleasure taking care of you! Call if you have any questions or problems. You can reach a [facility] hospitalist on duty at [facility] 24 hours a day by calling [phone]. Take care of yourself. Juliana Anderson DO [facility] Hospitalist Current Hospital Diet Patient's current hospital diet: AHA Diet (Heart Healthy), Diabetes Type 2 Diet , Low Sodium Diet (2gm Na) Discharge Diet Recommended Diet: Low Sodium Diet (2gm Na), Diabetes Type 2 Diet Pending Studies Studies pending at discharge: no Laboratory Results Hemoglobin A1c Test 09/07/17 06:53 Range/Units Estimated Average Glucose 206 mg/dl Hemoglobin A1c 8.8 H 4.5-5.6 % Lipid Panel Test 09/07/17 06:53 Range/Units Triglycerides Level 96 0-150 mg/dl Cholesterol Level 93 0-200 mg/dl HDL Cholesterol 30 mg/dl Cholesterol/HDL Ratio 3.1 LDL Cholesterol, Calculated 44 mg/dl Medical Emergencies . Who to Call and When: Medical Emergencies: If at any time you feel your situation is an emergency, please call 911 immediately. . Non-Emergent Contact Non-Emergency issues call your: Primary Care Provider . . "Provider Documentation" section prepared by Juliana Anderson. . [place] Drug Monitoring Program Search Results: patient reviewed within database, no issues identified Additional Copies To Ron Mortensen D.O.
[2017-10-20 14:29] VITALS: BP 106/64; PULSE 57; TEMP 36.3; O2SAT 93
[2017-10-20] MEDS ORDERED: INSULIN GLARGINE SOLOSTAR 100 UNITS/ML 3 ML PEN SC SCH (21:00)
== END 2017-10-20 15:20 | disposition home health service (06) | DRG 242 ==
LOC: EDBD 11:07 → C.EDC 11:08 → C.2T 14:44 → UNDOADMIN 14:44 → ENRESERV 14:49
PROVIDERS: ADMIT Internal Medicine; ATTEND Hospitalist
PROC: 0JH606Z Insertion of Pacemaker, Dual Chamber into Chest Subcutaneous Tissue and Fascia, Open Approach (ICD-10-PCS; principal; 2017-10-19 12:54)
PROC: 02HK3JZ Insertion of Pacemaker Lead into Right Ventricle, Percutaneous Approach (ICD-10-PCS; principal; 2017-10-19 12:54)
PROC: 02H63JZ Insertion of Pacemaker Lead into Right Atrium, Percutaneous Approach (ICD-10-PCS; principal; 2017-10-19 12:54)
DX: I49.5 Sick sinus syndrome (principal); J69.0 Pneumonitis due to inhalation of food and vomit; J44.1 Chronic obstructive pulmonary disease with (acute) exacerbation; I48.1 Persistent atrial fibrillation; I48.92 Unspecified atrial flutter; R09.02 Hypoxemia; I45.81 Long QT syndrome; R79.1 Abnormal coagulation profile; N28.89 Other specified disorders of kidney and ureter; S20.20XA Contusion of thorax, unspecified, initial encounter; E87.6 Hypokalemia; E83.42 Hypomagnesemia; I95.9 Hypotension, unspecified; E11.22 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 diabetic chronic kidney disease; I12.9 Hypertensive chronic kidney disease with stage 1 through stage 4 chronic kidney disease, or unspecified chronic kidney disease; N18.3 Chronic kidney disease, stage 3 (moderate); I25.5 Ischemic cardiomyopathy; I25.10 Atherosclerotic heart disease of native coronary artery without angina pectoris; I25.2 Old myocardial infarction; E78.5 Hyperlipidemia, unspecified; K21.9 Gastro-esophageal reflux disease without esophagitis; M10.9 Gout, unspecified; I73.9 Peripheral vascular disease, unspecified; Z51.81 Encounter for therapeutic drug level monitoring; Z79.899 Other long term (current) drug therapy; Z79.01 Long term (current) use of anticoagulants; Z79.4 Long term (current) use of insulin; Z79.82 Long term (current) use of aspirin; Z86.73 Personal history of transient ischemic attack (TIA), and cerebral infarction without residual deficits; Z86.718 Personal history of other venous thrombosis and embolism; Z86.711 Personal history of pulmonary embolism; Z87.891 Personal history of nicotine dependence; Z88.1 Allergy status to other antibiotic agents; Z88.8 Allergy status to other drugs, medicaments and biological substances; Z91.018 Allergy to other foods; Z83.3 Family history of diabetes mellitus; Z80.1 Family history of malignant neoplasm of trachea, bronchus and lung; W18.09XA Striking against other object with subsequent fall, initial encounter; Y93.01 Activity, walking, marching and hiking; Y92.030 Kitchen in apartment as the place of occurrence of the external cause; Y99.8 Other external cause status

== ENCOUNTER 2017-11-07 14:06 | Inpatient (IN) | payer OTHER, MEDICARE ==
[~2017-11-07] VITALS: Ht 188 cm; Wt 94.9 kg
[~2017-11-07 14:06] MED LIST changes: -ALBUAER2 INH; -BTP80 PO; +LDDP5 TD; -LSX20 PO; +PRD20 PO; +TPRSR25 PO; -ZFRODT4 SL
[2017-11-07] MEDS ORDERED: ONDANSETRON INJ 2 MG/ML 2 ML VIAL IV STA (14:21)
[2017-11-07] MEDS ORDERED: SODIUM CHLORIDE 0.9% 500ML 500 ML IV STA (14:21)
--- NOTE | 2017-11-07 14:53 | DIAGNOSTIC IMAGING REPORT ---
CHEST ONE VIEW PORTABLE CLINICAL HISTORY: Evaluate Fever/Sepsis fever COMPARISON STUDY: 10/20/2017 FINDINGS: Improving parenchymal infiltrative change lateral to left hilum as well as in the basilar lung regions bilaterally. There is minimal residual. Several old right-sided rib fractures are again noted. Permanent bipolar cardiac pacemaker IMPRESSION: Improving bibasilar parenchymal infiltrative changes as well as left perihilar parenchymal infiltrate. Minimal residual. The above report was generated using voice recognition software. It may contain grammatical, syntax or spelling errors. Electronically signed by: Wilder Shelton M.D. 11/07/2017 2:51 PM Dictated Date/Time: 11/07/2017 2:46 PM
[2017-11-07 14:59] LABS: ISTAT CREATININE 1.2 mg/dl (0.6-1.3); ISTAT IONIZED CALCIUM 1.13 mmol/l (1.12-1.32)
[2017-11-07] MEDS ORDERED: LIDO1PAD2 TD (15:16)
[2017-11-07] MEDS ORDERED: TPRSR/25 PO (15:16)
[2017-11-07] MEDS ORDERED: OXYC-57 PO (15:16)
[2017-11-07] MEDS ORDERED: SODIUM CHLORIDE 0.9% 1000ML 1,000 ML IV STA (15:17)
[2017-11-07 15:24] LABS: BASO % 0.3 %; BASO ABS # 0.02 K/uL (0-0.2); EOS % 2.9 %; EOS ABS # 0.18 K/uL (0-0.5); HEMATOCRIT 42.6 % (42-52); HEMOGLOBIN 13.7 g/dL (14.0-18.0); IG# 0.01 K/uL (0.00-0.02); LYMPH % 17.8 %; MEAN CELL VOLUME 84.7 fL (80-100); MEAN CORPUSCULAR HEMOGLOBIN 27.2 pg (25-34); MEAN CORPUSCULAR HGB CONC 32.2 g/dl (32-36); MEAN PLATELET VOLUME 9.7 fL (7.4-10.4); MONO % 6.6 %; MONO ABS # 0.41 K/uL (0.11-0.59); NEUT % 72.2 %; NEUT ABS # 4.47 K/uL (1.4-6.5); PLATELET COUNT 202 K/uL (130-400); RED CELL DISTRIBUTION WIDTH CV 15.9 % (11.5-14.5); RED CELL DISTRIBUTION WIDTH SD 48.8 fL (36.4-46.3); WHITE BLOOD COUNT 6.19 K/uL (4.8-10.8)
[2017-11-07 15:33] LABS: ALBUMIN 2.9 gm/dl (3.4-5.0); CALCIUM 9.6 mg/dl (8.5-10.1); CREATININE 1.46 mg/dl (0.60-1.40); POTASSIUM 2.9 mmol/L (3.5-5.1)
[2017-11-07 15:37] LABS: TOTAL PROTEIN 8.1 gm/dl (6.4-8.2)
[2017-11-07 15:39] LABS: PTT PATIENT 39.5 SECONDS (21.0-31.0)
--- NOTE | 2017-11-07 15:44 | DIAGNOSTIC IMAGING REPORT ---
HEAD CT NONCONTRAST CT DOSE: 537.48 mGy.cm HISTORY: s/p syncope TECHNIQUE: Multiaxial CT images of the head were performed without the use of intravenous contrast. Automated exposure control was utilized for this study. A dose lowering technique was utilized adhering to the principles of ALARA. Comparison: Head CT 10/21/2010. Findings: Mild mucosal thickening within the ethmoid air cells and maxillary sinuses. Trace fluid levels within the sphenoid sinuses. The mastoid or cells are clear. The calvarium and skull base are intact. There is no mass, hematoma, midline shift, acute infarct. White matter hypodensity is nonspecific but suggestive of microvascular ischemic change. The ventricles and sulci demonstrate mild age-related involutional changes. Impression: No acute intracranial abnormality. Atrophy and microvascular ischemic changes. Mild sinus disease as described above. Electronically signed by: Nik Green M.D. 11/07/2017 3:43 PM Dictated Date/Time: 11/07/2017 3:27 PM
[2017-11-07] MEDS ORDERED: METOCLOPRAMIDE HCL INJ 5 MG/ML 2 ML VIAL IV. STA (15:58)
[2017-11-07] MEDS ORDERED: POTASSIUM CHLR 10 MEQ / WTR 100 ML IV STA (16:02)
[2017-11-07] MEDS ORDERED: MAGNESIUM SULFATE 1GM / D5W 100 ML IV STA (16:02)
[2017-11-07] MEDS ORDERED: OPTIRAY 320 IV PRN (16:15)
--- NOTE | 2017-11-07 16:36 | EMERGENCY ROOM VISIT NOTE ---
History Report prepared by Maria Fernanda: Solo Warren Under the Supervision of: Dr. Jah Prajapati M.D. First contact with patient: 14:17 Chief Complaint: ILLNESS Stated Complaint: ASSESSMENT History of Present Illness The patient is a 72 year old white male with a past medical history of COPD, HLD , A-fib, HTN, gout, CVA, PE, s/p cholecystectomy, CKD, diabetes, pacemaker placement who presents to the ED with a cc of a syncopal episode occurring 2.5 hours ago. Patient states that he was opening his door when the episode occurred. He fell onto a concrete floor. Positive nausea. Negative headache, abdominal pain, leg pain, chest pain, or SOB. The patient was recently discharged from the hospital earlier this month for COPD exacerbation, pneumonia, perinephric mass and pacemaker placement. Patient had an echocardiogram done in August 2017 which showed mildly reduced LV function. Inferior wall hypokinesis. EF of 45-50%. Mild MR. Source of History: patient Onset: 2.5 hours ago Quality: other (syncope) Timing: other (episode) Associated Symptoms: + nausea, No chest pain, No SOB, No abdominal pain Note: Negative: leg pain. Review of Systems See HPI for pertinent positives and negatives. A total of ten systems were reviewed and were otherwise negative. Past Medical & Surgical Medical Problems: (1) Atrial fibrillation and flutter (2) Benign hypertension (3) Cerebrovascular disease (4) Chronic kidney disease stage 3 (5) Chronic obstructive lung disease (6) Coronary artery disease (7) Diabetes mellitus type 2 (8) GERD (gastroesophageal reflux disease) (9) Gout (10) History of - deep vein thrombosis (11) History of - pulmonary embolus (12) Hyperlipidemia (13) Ischemic cardiomyopathy Surgical Problems: (1) H/O toe surgery (2) History of tonsillectomy (3) S/P laparoscopic cholecystectomy Family History FH: cancer GRANDFATHER Social History Smoking Status: Never Smoker Alcohol Use: occasionally Drug Use: none Marital Status: Housing Status: lives with significant other Occupation Status: retired Current/Historical Medications Scheduled Allopurinol (Allopurinol), 300 MG PO HS Aspirin (Aspirin), 325 MG PO HS Furosemide (Lasix), 20 MG PO Q2D Insulin Glargine (Lantus), 30 UNITS SC HS Isosorbide Dinitrate (Isordil), 40 MG PO HS Lidocaine (Lidocaine), 1 PATCH TD Q24 Metoprolol Succinate (Metoprolol Succinate ER), 25 MG PO QAM Montelukast Sodium (Singulair), 10 MG PO QPM Primidone (Mysoline), 500 MG PO HS Ranitidine (Zantac), 150 MG PO BID Rosuvastatin Calcium (Crestor), 40 MG PO HS Warfarin Sod (Jantoven), 2 MG PO 2XWK Warfarin Sod (Jantoven), 4 MG PO 5XWK Scheduled PRN Hydrocodone W/ Homatropine (Hycodan 5/1.5MG 5 Ml), 5 ML PO HS PRN for Cough Nitroglycerin (Nitrostat), 0.4 MG UT UD PRN for Chest Pain Oxycodone/Acetaminophen 5MG/325MG (Percocet 5MG/325MG), 1 TABLET PO Q6H PRN for Pain Miscellaneous Medications Insulin Aspart (Novolog) Allergies Coded Allergies: Onion (Verified Allergy, Intermediate, RASH, 11/07/17) Levofloxacin (Verified Allergy, Mild, other, 11/07/17) ' Albuterol (Verified Adverse Reaction, Mild, 0, 11/07/17) cough syncope Ipratropium (Verified Adverse Reaction, Mild, 0, 11/07/17) cough syncope Physical Exam Vital Signs Date Time Temp Pulse Resp B/P (MAP) Pulse Ox O2 Delivery O2 Flow Rate FiO2 11/07/17 17:06 80 24 142/93 100 Nasal Cannula 4.0 11/07/17 16:21 79 20 145/83 100 Nasal Cannula 4.0 11/07/17 15:39 97 Nasal Cannula 4.0 11/07/17 15:35 76 Room Air 11/07/17 15:31 77 12 130/81 99 Room Air 11/07/17 15:03 100 Room Air 11/07/17 14:20 96 Room Air 11/07/17 14:14 92 18 130/80 93 Room Air Physical Exam GENERAL: Awake, alert, ill-appearing. Diaphoretic. Thinning hair. HENT: Normocephalic, atraumatic. EYES: Normal conjunctiva. Sclera non-icteric. PERRL. No anisocoria. NECK: Supple. No nuchal rigidity. FROM. RESPIRATORY: Wheezes throughout CARDIAC: RRR, no MRG ABDOMEN: Soft, NTND, BS+ MSK: No chest wall TTP. Bruising over left lateral chest. Device in left chest. No bilateral UE or LE pain. No midline C-spine TTP. No pain to palpation of the face or head. NEURO: GCS 15, CN 2-12 intact, moves all 4s on command. 4/5 strength throughout. SKIN: No rash or jaundice noted. Medical Decision & Procedures ER Provider Diagnostic Interpretation: Radiology results as stated below per my review and radiologist interpretation: CHEST ONE VIEW PORTABLE FINDINGS: Improving parenchymal infiltrative change lateral to left hilum as well as in the basilar lung regions bilaterally. There is minimal residual. Several old right-sided rib fractures are again noted. Permanent bipolar cardiac pacemaker IMPRESSION: Improving bibasilar parenchymal infiltrative changes as well as left perihilar parenchymal infiltrate. Minimal residual. The above report was generated using voice recognition software. It may contain grammatical, syntax or spelling errors. Electronically signed by: Wilder Shelton M.D. 11/07/2017 2:[address] NONCONTRAST Findings: Mild mucosal thickening within the ethmoid air cells and maxillary sinuses. Trace fluid levels within the sphenoid sinuses. The mastoid or cells are clear. The calvarium and skull base are intact. There is no mass, hematoma, midline shift, acute infarct. White matter hypodensity is nonspecific but suggestive of microvascular ischemic change. The ventricles and sulci demonstrate mild age-related involutional changes. Impression: No acute intracranial abnormality. Atrophy and microvascular ischemic changes. Mild sinus disease as described above. Electronically signed by: Nik Green M.D. 11/07/2017 3:[address] ABD/PELVIS IV CONTRAST ONLY FINDINGS: Lower chest: There are coronary artery calcifications. There is lower lobe bronchiectasis. There is right hilar fullness. Liver: The contrast-enhanced liver is normal in size, contour, and attenuation. There is no intrahepatic biliary ductal dilatation. The hepatic veins and portal veins are patent. Gallbladder: Surgically absent Spleen: Normal in size and attenuation. Pancreas: Unremarkable. Adrenal glands: Unremarkable. Kidneys: No intrinsic renal masses are visualized. There are bilateral nonobstructing renal calculi. There are multiple persistent low density masses within the perirenal fat. Bowel: There are no transition zones indicate bowel obstruction. The appendix appears normal. There is colonic diverticulosis. There are no acute peridiverticular inflammatory changes. Peritoneum: There is no intraperitoneal free air or abdominal ascites. Vasculature: The abdominal aorta is normal in course and caliber. Adenopathy: Oral enlarged Lymph nodes remain stable Pelvic viscera: The prostate is mildly enlarged Skeletal structures: No destructive osseous lesions are seen. IMPRESSION: 1. No evidence of bowel obstruction. No evidence of free air 2. Diverticulosis. No evidence of acute diverticulitis 3. Bilateral lower lobe bronchiectasis 4. Bilateral nephrolithiasis 5. Stable bilateral low-density perirenal masses 6. Stable borderline enlarged para-aortic lymph nodes 7. Prostamegaly Electronically signed by: Dillon Gaspar M.D. 11/07/2017 4:47 PM Laboratory Results Test 11/07/17 14:35 11/07/17 14:43 11/07/17 15:03 11/07/17 15:15 Immature Granulocyte % (Auto) 0.2 % White Blood Count 6.19 K/uL (4.8-10.8) Red Blood Count 5.03 M/uL (4.7-6.1) Hemoglobin 13.7 g/dL (14.0-18.0) Hematocrit 42.6 % (42-52) Mean Corpuscular Volume 84.7 fL (80-100) Mean Corpuscular Hemoglobin 27.2 pg (25-34) Mean Corpuscular Hemoglobin Concent 32.2 g/dl (32-36) Platelet Count 202 K/uL (130-400) Mean Platelet Volume 9.7 fL (7.4-10.4) Neutrophils (%) (Auto) 72.2 % Lymphocytes (%) (Auto) 17.8 % Monocytes (%) (Auto) 6.6 % Eosinophils (%) (Auto) 2.9 % Basophils (%) (Auto) 0.3 % Neutrophils # (Auto) 4.47 K/uL (1.4-6.5) Lymphocytes # (Auto) 1.10 K/uL (1.2-3.4) Monocytes # (Auto) 0.41 K/uL (0.11-0.59) Eosinophils # (Auto) 0.18 K/uL (0-0.5) Basophils # (Auto) 0.02 K/uL (0-0.2) Immature Granulocyte # (Auto) 0.01 K/uL (0.00-0.02) Activated Partial Thromboplast Time 39.5 SECONDS (21.0-31.0) Partial Thromboplastin Ratio 1.5 Total Bilirubin 0.5 mg/dl (0.2-1) Direct Bilirubin 0.2 mg/dl (0-0.2) Aspartate Amino Transf (AST/SGOT) 36 U/L (15-37) Alanine Aminotransferase (ALT/SGPT) 21 U/L (12-78) Alkaline Phosphatase 223 U/L (45-117) Total Creatine Kinase 50 U/L (39-308) Total Protein 8.1 gm/dl (6.4-8.2) Albumin 2.9 gm/dl (3.4-5.0) Lipase 57 U/L (73-393) Bedside Hemoglobin 15.0 g/dl (14.0-18.0) Bedside Hematocrit 44 % (42-52) Bedside Sodium 138 mEq/L (135-144) Bedside Potassium 3.0 mEq/L (3.3-5.0) Bedside Chloride 98 mEq/L (101-112) Bedside Total CO2 25 mEq/l (24-31) Bedside Blood Urea Nitrogen 19 mg/dl (7-18) Bedside Creatinine 1.2 mg/dl (0.6-1.3) Bedside Glucose (other) 143 mg/dl (70-99) Bedside Ionized Calcium (Nazario) 1.13 mmol/l (1.12-1.32) Bedside Troponin I < 0.030 ng/ml (0-0.045) Venous Blood pH 7.46 (7.36-7.41) Venous Blood Partial Pressure CO2 39 mmHg (38.0-50.0) Venous Blood Partial Pressure O2 24 mmHg Venous Blood HCO3 28 mmol/L Venous Blood Oxygen Saturation < 60.0 % Venous Blood Base Excess 3.5 mEq/L Test 11/07/17 17:39 Bedside Lactic Acid Venous 2.97 mmol/L (0.90-1.70) Laboratory results reviewed by me Medications Administered Medications (Trade) Dose Ordered Sig/Kendrick Route Start Time Stop Time Status Last Admin Dose Admin Ondansetron HCl (Zofran Inj) 4 mg NOW STAT IV 11/07/17 14:21 11/07/17 14:24 DC 11/07/17 14:44 4 MG Sodium Chloride 500 ml @ 500 mls/hr Q1H STAT IV 11/07/17 14:21 11/07/17 15:20 DC 11/07/17 14:21 500 MLS/HR Sodium Chloride 1,000 ml @ 999 mls/hr Q1H1M STAT IV 11/07/17 15:17 11/07/17 16:17 DC 11/07/17 15:17 999 MLS/HR Metoclopramide HCl (Reglan Inj) 10 mg NOW STAT IV. 11/07/17 15:58 11/07/17 16:00 DC 11/07/17 16:20 10 MG Potassium Chloride 100 ml @ 100 mls/hr NOW STAT IV 11/07/17 16:02 11/07/17 17:01 DC 11/07/17 16:21 100 MLS/HR Magnesium Sulfate 100 ml @ 100 mls/hr NOW STAT IV 11/07/17 16:02 11/07/17 17:01 DC 11/07/17 16:20 100 MLS/HR ECG Per My Interpretation Indication: syncope Rate (beats per minute): 92 Rhythm: normal sinus Findings: T-wave inversion (Inferior), other (Normal intervals. Normal axis. ) Comparison ECG Date: October 18, 2017 Change: no significant change (Rate has changed.) ED Course 1424: The patient was evaluated in room C6. A complete history and physical exam was performed. 1650: Upon reexamination, the patient was resting comfortably. I discussed the test results and treatment plan with him. The patient will be evaluated for further management. Medical Decision Nursing notes reviewed. Ancillary studies and prior records reviewed. The patient is a 72 year old white male with a past medical history of COPD, HLD , A-fib, HTN, gout, CVA, PE, s/p cholecystectomy, CKD, diabetes, pacemaker placement who presents to the ED with a cc of a syncopal episode occurring 2.5 hours ago. Differential diagnosis: Etiologies such as vasovagal event, infection, hypoglycemia, electrolyte abnormalities, cardiac sources, intracerebral event, toxicologic, neurologic, as well as others were entertained. Patient was seen and evaluated the bedside. Patient does have a prior history of A. fib and did have a recent admission for tachybradycardia syndrome status post pacer plica, multifocal pneumonia, and pneumonia. The patient states that he had a syncopal event around noon today. He states he was out other for seconds to minutes. Patient does have some nausea but denies any shortness of breath, chest pain, abdominal pain. Patient has had a recent bowel movement and denies any urinary symptoms. Patient did have blood work completed along with EKG, troponin, chest x-ray, VBG , lactate, blood cultures. Patient was given 500 cc bolus as well as some Zofran. Upon reassessment the patient was still feeling mildly nauseated so he was given additional antiemetics. Patient's EKG does not show any acute ischemic changes compared to prior. Patient's troponin is negative. Patient's initial lactate greater than 4. The patient's blood work is fairly unremarkable with regard to his CBC as he has a normal white blood cell count and is not anemic. Patient does have some notable hypokalemia and hypomagnesemia. Replete was ordered IV. I did ask the charge nurse to help facilitate interrogation of the patient's pacemaker given his recent placement. I did review prior records which also did show a recent echocardiogram in August showed mildly depressed EF at 40-45%. I believe he can tolerate additional fluids of an additional 1 L IV fluids were given as the patient does not appear volume overloaded. The patient's recent syncopal event he did have a CT of the brain. CT brain negative acute. Again the patient denies any chest pain or shortness of breath I do not believe he would benefit from a CT PE protocol. The patient did have some pretty significant vomiting it did look very ill appearing cyst CT of the abdomen pelvis was ordered. I did discuss the patient with the on-call hospitalist who agreed to further evaluate treat the patient. Medication Reconcilliation Current Medication List: was personally reviewed by me Blood Pressure Screening Patient's blood pressure: Elevated blood pressure Blood pressure disposition: Elevated BP felt to be situational Consults Time Called: 1649 Consulting Physician: Dr. Mateo Posadas Hospitalist Returned Call: [phone] Discussed the patient's case. The patient will be evaluated for further treatment and disposition. Impression Primary Impression: Nausea & vomiting Additional Impressions: Syncope H/O cardiac pacemaker Hypokalemia Hypomagnesemia Scribe Attestation The scribe's documentation has been prepared under my direction and personally reviewed by me in its entirety. I confirm that the note above accurately reflects all work, treatment, procedures, and medical decision making performed by me. Departure Information Dispostion Being Evaluated By Hospitalist Referrals Ron Mortensen D.O. (PCP) Patient Instructions My [facility] Health Problem Qualifiers Primary Impression: Nausea & vomiting Vomiting type: bilious vomiting Qualified Codes: R11.14 - Bilious vomiting Additional Impressions: Syncope Syncope type: unspecified Qualified Codes: R55 - Syncope and collapse
--- NOTE | 2017-11-07 16:48 | DIAGNOSTIC IMAGING REPORT ---
CT ABD/PELVIS IV CONTRAST ONLY CLINICAL HISTORY: vomiting ABDOMINAL PAIN COMPARISON STUDY: 10/16/2017 TECHNIQUE: Following the IV administration of 95 mL of Optiray-320, CT scan of the abdomen and pelvis was performed from the lung bases to the proximal femurs. Images are reviewed in the axial, sagittal, and coronal planes. IV contrast was administered without complication. A dose lowering technique was utilized adhering to the principles of ALARA. CT DOSE: 793.25 mGy.cm FINDINGS: Lower chest: There are coronary artery calcifications. There is lower lobe bronchiectasis. There is right hilar fullness. Liver: The contrast-enhanced liver is normal in size, contour, and attenuation. There is no intrahepatic biliary ductal dilatation. The hepatic veins and portal veins are patent. Gallbladder: Surgically absent Spleen: Normal in size and attenuation. Pancreas: Unremarkable. Adrenal glands: Unremarkable. Kidneys: No intrinsic renal masses are visualized. There are bilateral nonobstructing renal calculi. There are multiple persistent low density masses within the perirenal fat. Bowel: There are no transition zones indicate bowel obstruction. The appendix appears normal. There is colonic diverticulosis. There are no acute peridiverticular inflammatory changes. Peritoneum: There is no intraperitoneal free air or abdominal ascites. Vasculature: The abdominal aorta is normal in course and caliber. Adenopathy: Oral enlarged Lymph nodes remain stable Pelvic viscera: The prostate is mildly enlarged Skeletal structures: No destructive osseous lesions are seen. IMPRESSION: 1. No evidence of bowel obstruction. No evidence of free air 2. Diverticulosis. No evidence of acute diverticulitis 3. Bilateral lower lobe bronchiectasis 4. Bilateral nephrolithiasis 5. Stable bilateral low-density perirenal masses 6. Stable borderline enlarged para-aortic lymph nodes 7. Prostamegaly Electronically signed by: Dillon Gaspar M.D. 11/07/2017 4:47 PM Dictated Date/Time: 11/07/2017 4:42 PM
[2017-11-07] MEDS ORDERED: ACETAMINOPHEN 325 MG TAB PO PRN (18:00)
[2017-11-07] MEDS ORDERED: FURO20TA PO (18:11)
[2017-11-07] MEDS ORDERED: HYDROCODONE/HOMATROPINE SYRUP 5MG/1.5MG 5ML UDP PO PRN (18:30)
[2017-11-07] MEDS ORDERED: NITROGLYCERIN 0.4 MG SL PER TAB CHARGE UT PRN (18:30)
--- NOTE | 2017-11-07 18:39 | History and Physical ---
History & Physical Date & Time of Service: Nov 07, 2017 at 18:29 Chief Complaint: Assessment Primary Care Physician: Ron Mortensen D.O. History of Present Illness Source: patient, clinic records, hospital records Patient is a 72-year-old male with a PMH of tachybradycardia syndrome (s/p pacemaker placement on October 19), systolic CHF (EF 40%), A Fib (on coumadin), HTN, DM 2, COPD, h/o CVA and other medical problems listed below who presents after a syncopal episode earlier today. Patient was recently admitted from October 16- for bilateral pneumonia, COPD exacerbation and bradycardia s/p pacemaker placement. Did well postoperatively. Was followed by cardiology during admission and the following medication changes were made: Sotalol was discontinued, metoprolol 25 mg every morning was started and lasix was held with instruction for PCP to reevaluate. Since discharge patient endorses 3 syncopal events, one of which occurred during his hospital follow-up appointment with Dr. Mortensen. Per chart review, patient was being weighed when he became dizzy and fell but did not lose consciousness. Was found to have a low blood pressure at this time. PCP decreased Lasix to 20mg every other day. Earlier today, patient was answering front door when he became dizzy and fell onto concrete floor. Denies head trauma. [place] nauseous and sweaty immediately following and vomited. business project manager was called over and patient was sent to ED for further evaluation. Endorses 5 additional episodes of vomiting while in the ED. Was given anti-emetics and nausea has improved. Otherwise, states that he feels normal. Denies fever, chills, lightheadedness, dizziness, confusion, visual changes, chest pain, shortness of breath, abdominal pain, dysuria, constipation, diarrhea or LE swelling. Had a normal pacemaker interrogation on October 26. Follows with Dr. Suarez in cardiology clinic. Past Medical/Surgical History Medical Problems: (1) Atrial fibrillation and flutter Status: Chronic (2) Benign hypertension Status: Chronic (3) Cerebrovascular disease Permanent Comment: history of right caudate stroke Status: Chronic (4) Chronic kidney disease stage 3 Status: Chronic (5) Chronic obstructive lung disease Status: Chronic (6) Coronary artery disease Permanent Comment: S/P inferior MA, severe multivessel disease not amenable to intervention Status: Chronic (7) Diabetes mellitus type 2 Status: Chronic (8) GERD (gastroesophageal reflux disease) Status: Chronic (9) Gout Status: Chronic (10) History of - deep vein thrombosis Status: Chronic (11) History of - pulmonary embolus Status: Chronic (12) Hyperlipidemia Status: Chronic (13) Ischemic cardiomyopathy Status: Chronic Surgical Problems: (1) H/O toe surgery Permanent Comment: amputation left 3rd and 4th toe 03/2012 Status: Resolved (2) History of tonsillectomy Status: Resolved (3) S/P laparoscopic cholecystectomy Permanent Comment: Dr. Tang 12/2014 Status: Resolved Family History FH: cancer GRANDFATHER Social History Smoking Status: Former Smoker Alcohol Use: occasionally Drug Use: none Marital Status: Housing status: lives with family Occupational Status: retired Immunizations History of Influenza Vaccine: Yes Influenza Vaccine Date: Apr 05, 2017 History of Tetanus Vaccine?: Yes Tetanus Immunization Date: December 01, 2008 History of Pneumococcal: Yes Pneumococcal Date: Mar 09, 2015 Allergies Coded Allergies: Onion (Verified Allergy, Intermediate, RASH, 11/07/17) Levofloxacin (Verified Allergy, Mild, other, 11/07/17) ' Albuterol (Verified Adverse Reaction, Mild, 0, 11/07/17) cough syncope Ipratropium (Verified Adverse Reaction, Mild, 0, 11/07/17) cough syncope Home Medications Scheduled Allopurinol (Allopurinol), 300 MG PO HS Aspirin (Aspirin), 325 MG PO HS Insulin Glargine (Lantus), 30 UNITS SC HS Lidocaine (Lidocaine), 1 PATCH TD Q24 Metoprolol Succinate (Metoprolol Succinate ER), 25 MG PO QAM Montelukast Sodium (Singulair), 10 MG PO QPM Primidone (Mysoline), 500 MG PO HS Ranitidine (Zantac), 150 MG PO BID Rosuvastatin Calcium (Crestor), 40 MG PO HS Warfarin Sod (Jantoven), 2 MG PO 2XWK Warfarin Sod (Jantoven), 4 MG PO [id number] Scheduled PRN Hydrocodone W/ Homatropine (Hycodan 5/1.5MG 5 Ml), 5 ML PO HS PRN for Cough Nitroglycerin (Nitrostat), 0.4 MG UT UD PRN for Chest Pain Oxycodone/Acetaminophen 5MG/325MG (Percocet 5MG/325MG), 1 TABLET PO Q6H PRN for Pain Miscellaneous Medications Insulin Aspart (Novolog) Review of Systems Ten systems reviewed and negative except as noted in the HPI. Physical Exam Vital Signs Date Time Temp Pulse Resp B/P (MAP) Pulse Ox O2 Delivery O2 Flow Rate FiO2 11/07/17 17:06 80 24 142/93 100 Nasal Cannula 4.0 11/07/17 16:21 79 20 145/83 100 Nasal Cannula 4.0 11/07/17 15:39 97 Nasal Cannula 4.0 11/07/17 15:35 76 Room Air 11/07/17 15:31 77 12 130/81 99 Room Air 11/07/17 15:03 100 Room Air 11/07/17 14:20 96 Room Air 11/07/17 14:14 92 18 130/80 93 Room Air General Appearance: WD/WN, no apparent distress Head: normocephalic, atraumatic Eyes: normal inspection, PERRL, sclerae normal ENT: normal ENT inspection, hearing grossly normal, pharynx normal (Dry mucous membranes) Neck: supple, thyroid normal, trachea midline Respiratory/Chest: chest non-tender, lungs clear, normal breath sounds, no respiratory distress, no accessory muscle use, + pertinent finding (Resolving ecchymosis by pacemaker on left chest wall) Cardiovascular: regular rate, rhythm, no murmur, normal peripheral pulses Abdomen/GI: normal bowel sounds, non tender, soft, no organomegaly Back: normal inspection Extremities/Musculoskelatal: normal inspection, no calf tenderness, no pedal edema Neurologic/Psych: no motor/sensory deficits, alert, normal mood/affect, oriented x 3 Skin: normal color, warm/dry Diagnostics Laboratory Results Results Past 24 Hours Test 11/07/17 14:27 11/07/17 14:35 11/07/17 14:43 11/07/17 14:47 Range/Units Bedside Glucose 146 70-99 mg/dl White Blood Count 6.19 4.8-10.8 K/uL Red Blood Count 5.03 4.7-6.1 M/uL Hemoglobin 13.7 14.0-18.0 g/dL Hematocrit 42.6 42-52 % Mean Corpuscular Volume 84.7 80-100 fL Mean Corpuscular Hemoglobin 27.2 25-34 pg Mean Corpuscular Hemoglobin Concent 32.2 32-36 g/dl Platelet Count 202 130-400 K/uL Mean Platelet Volume 9.7 7.4-10.4 fL Neutrophils (%) (Auto) 72.2 % Lymphocytes (%) (Auto) 17.8 % Monocytes (%) (Auto) 6.6 % Eosinophils (%) (Auto) 2.9 % Basophils (%) (Auto) 0.3 % Neutrophils # (Auto) 4.47 1.4-6.5 K/uL Lymphocytes # (Auto) 1.10 1.2-3.4 K/uL Monocytes # (Auto) 0.41 0.11-0.59 K/uL Eosinophils # (Auto) 0.18 0-0.5 K/uL Basophils # (Auto) 0.02 0-0.2 K/uL RDW Standard Deviation 48.8 36.4-46.3 fL RDW Coefficient of Variation 15.9 11.5-14.5 % Immature Granulocyte % (Auto) 0.2 % Immature Granulocyte # (Auto) 0.01 0.00-0.02 K/uL Prothrombin Time 39.0 9.0-12.0 SECONDS Activated Partial Thromboplast Time 39.5 21.0-31.0 SECONDS Partial Thromboplastin Ratio 1.5 Sodium Level 136 136-145 mmol/L Potassium Level 2.9 3.5-5.1 mmol/L Chloride Level 100 98-107 mmol/L Carbon Dioxide Level 27 21-32 mmol/L Anion Gap 9.0 19.0 16-25 mmol/L Blood Urea Nitrogen 17 7-18 mg/dl Creatinine 1.46 0.60-1.40 mg/dl Est Creatinine Clear Calc Drug Dose 54.0 ml/min Estimated GFR () 55.7 Estimated GFR (Non- 48.0 BUN/Creatinine Ratio 11.8 10-20 Random Glucose 136 70-99 mg/dl Calcium Level 9.6 8.5-10.1 mg/dl Magnesium Level 1.4 1.8-2.4 mg/dl Total Bilirubin 0.5 0.2-1 mg/dl Direct Bilirubin 0.2 0-0.2 mg/dl Aspartate Amino Transf (AST/SGOT) 36 15-37 U/L Alanine Aminotransferase (ALT/SGPT) 21 12-78 U/L Alkaline Phosphatase 223 45-117 U/L Total Creatine Kinase 50 39-308 U/L Total Protein 8.1 6.4-8.2 gm/dl Albumin 2.9 3.4-5.0 gm/dl Lipase 57 73-393 U/L Bedside Hemoglobin 15.0 14.0-18.0 g/dl Bedside Hematocrit 44 42-52 % Bedside Sodium 138 135-144 mEq/L Bedside Potassium 3.0 3.3-5.0 mEq/L Bedside Chloride 98 101-112 mEq/L Bedside Total CO2 25 24-31 mEq/l Bedside Blood Urea Nitrogen 19 7-18 mg/dl Bedside Creatinine 1.2 0.6-1.3 mg/dl Bedside Glucose (other) 143 70-99 mg/dl Bedside Ionized Calcium (Nazario) 1.13 1.12-1.32 mmol/l Bedside Lactic Acid Venous 4.81 0.90-1.70 mmol/L Test 11/07/17 15:03 11/07/17 15:15 11/07/17 17:39 Range/Units Bedside Troponin I < 0.030 0-0.045 ng/ml Venous Blood pH 7.46 7.36-7.41 Venous Blood Partial Pressure CO2 39 38.0-50.0 mmHg Venous Blood Partial Pressure O2 24 mmHg Venous Blood HCO3 28 mmol/L Venous Blood Oxygen Saturation < 60.0 % Venous Blood Base Excess 3.5 mEq/L Bedside Lactic Acid Venous 2.97 0.90-1.70 mmol/L Microbiology Results 11/07/17 Blood Culture, Received Pending 11/07/17 Blood Culture, Received Pending Diagnostic Radiology Head CT: Impression: No acute intracranial abnormality. Atrophy and microvascular ischemic changes. Mild sinus disease as described above. Chest x-ray: IMPRESSION: Improving bibasilar parenchymal infiltrative changes as well as left perihilar parenchymal infiltrate. Minimal residual. CT abdomen/pelvis: IMPRESSION: 1. No evidence of bowel obstruction. No evidence of free air 2. Diverticulosis. No evidence of acute diverticulitis 3. Bilateral lower lobe bronchiectasis 4. Bilateral nephrolithiasis 5. Stable bilateral low-density perirenal masses 6. Stable borderline enlarged para-aortic lymph nodes 7. Prostamegaly EKG NSR at 92 bpm. T wave inversion in inferior leads. Impression Assessment and Plan Patient is a 72-year-old male with a PMH of tachybradycardia syndrome (s/p pacemaker placement on October 19), systolic CHF (EF 40%), A Fib (on coumadin), HTN, DM 2, COPD, h/o CVA and other medical problems listed below who presents after a syncopal episode earlier today. Syncopal event: -H/o events in the past. Thought to be 2/2 bradycardia -Became dizzy and fell in clinic last week; no LOC but hypotensive -S/p PM placement on 10/19. No abnormalities with 10/26 interrogation -Associated dizziness, nausea and vomiting similar to previous events -Head CT without acute abnormalities -Found to have low Mg of 1.4, low K of 2.9 -Replaced in ED. Will recheck later tonight -Orthostatic vitals, PM interrogation -IVF resuscitation -Lasix held for now -Cardio consult -Telemetry Elevated lactic acid: -Slightly elevated to 2.97 -Resolving PNA. Respiratory status back to baseline -CXR, UA without evidence of infection. No leukocytosis -In setting of dehydration, chronic CHF, COPD, recent PM placement -IV fluids -Recheck Nausea, vomiting: resolving -2/2 syncopal episode/fall earlier today -Cont anti-emetics -CT abd/pelvis without evidence of bowel obstruction, infectious colitis -IV fluids, replace electrolytes A Fib (on coumadin): -s/p PM placement -INR supratherapeutic at 3.8 -Hold coumadin -Recheck INR tomorrow -Cont metoprolol Chronic systolic CHF, ischemic cardiomyopathy: -Echo from Aug 2017 with EF: 40% -Compensated -Resuscitating fluids with caution -Heart heathy diet -Cont beta isaías, imdur -Lasix held CAD: -EKG with T wave inversion -Initial troponin wnl -Check an additional troponin -Cont statin, aspirin HTN: -Normotensive now -Lasix held. 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 Discharge planning ordered. Patient seen in collaboration with Dr. Galindo. Please see addendum. Attending addendum: 72-year-old male presented with syncope , followed by nausea vomiting Admitted to telemetry to rule out arrhythmia Order for pacemaker interrogation Mild elevation of lactic acid possible secondary to dehydration No evidence of sepsis Order for IV fluids Cardiology consult Columba Galindo MD Resuscitation Status VTE Prophylaxis Will order VTE Prophylaxis: Yes
[2017-11-07 19:03] VITALS: BP 96/60; PULSE 89; TEMP 36.5; O2SAT 91; O2SAT 93
[2017-11-07] MEDS ORDERED: GLUCOSE 40% GEL 15 GM TUBE PO PRN (19:30)
[2017-11-07] MEDS ORDERED: GLUCAGON FOR INJ 1 MG VIAL SQ PRN (19:30)
[2017-11-07] MEDS ORDERED: GLUCOSE 10 TABS/TUBE PO PRN (19:30)
[2017-11-07] MEDS ORDERED: DEXTROSE 50% 50 ML SYR IV PRN (19:30)
[2017-11-07 19:38] LABS: INR 3.8 (0.9-1.1)
[2017-11-07 19:50] VITALS: BP 96/60; PULSE 89; TEMP 36.5; O2SAT 93; BMI 26.7
[2017-11-07] MEDS ORDERED: SODIUM CHLORIDE 0.9% 1000ML 1,000 ML IV SCH (20:00)
[2017-11-07] MEDS ORDERED: ISOSORBIDE DINITRATE 40 MG TAB PO SCH (21:00)
[2017-11-07 21:27] LABS: POTASSIUM 3.9 mmol/L (3.5-5.1)
[2017-11-07] MEDS: PRIMIDONE 250 MG TAB PO SCH (21:37)
[2017-11-07 21:40] VITALS: BP 115/59; PULSE 85
[2017-11-07] MEDS: MONTELUKAST SOD 10 MG TAB PO SCH (21:41)
[2017-11-07] MEDS: ASPIRIN 325 MG ECTAB PO SCH (21:41)
[2017-11-07] MEDS: RANITIDINE HCL 150 MG TAB PO SCH (21:42)
[2017-11-07] MEDS: ALLOPURINOL 300 MG TAB PO SCH (21:42)
[2017-11-07] MEDS: INSULIN GLARGINE SOLOSTAR 100 UNITS/ML 3 ML PEN SC SCH (21:44)
[2017-11-07] MEDS: INSULIN ASPART 100 UNITS/ML 3 ML PEN SC SCH (21:44)
[2017-11-07] MEDS: ROSUVASTATIN CALCIUM 20 MG TAB PO SCH (21:46)
[2017-11-07] MEDS ORDERED: NURSING VERBAL MED ORDER ONE (22:45)
[2017-11-08] VITALS (7 sets, daily range): BP systolic 91–144; BP diastolic 51–80; PULSE 67–87; TEMP 36.5–37; O2SAT 91–96
[2017-11-08 05:44] LABS: HEMATOCRIT 35.3 % (42-52); MEAN CELL VOLUME 85.9 fL (80-100); MEAN CORPUSCULAR HEMOGLOBIN 26.8 pg (25-34); MEAN CORPUSCULAR HGB CONC 31.2 g/dl (32-36); MEAN PLATELET VOLUME 9.4 fL (7.4-10.4); PLATELET COUNT 163 K/uL (130-400); RED CELL DISTRIBUTION WIDTH CV 16.1 % (11.5-14.5); RED CELL DISTRIBUTION WIDTH SD 50.9 fL (36.4-46.3); WHITE BLOOD COUNT 5.34 K/uL (4.8-10.8)
[2017-11-08 06:23] LABS: INR 4.4 (0.9-1.1)
[2017-11-08 06:29] LABS: CALCIUM 8.1 mg/dl (8.5-10.1); CREATININE 1.2 mg/dl (0.60-1.40); POTASSIUM 3.8 mmol/L (3.5-5.1)
[2017-11-08] MEDS ORDERED: MAGNESIUM SULFATE 1GM / D5W 100 ML IV ONE (08:15)
[2017-11-08] MEDS: RANITIDINE HCL 150 MG TAB PO SCH ×2 (08:36→21:35)
[2017-11-08] MEDS: LIDODERM (LIDOCAINE) PATCH 5% TD SCH (08:36)
[2017-11-08] MEDS: METOPROLOL SUCC 25MG EXT REL TAB PO SCH (08:36)
[2017-11-08] MEDS: INSULIN ASPART 100 UNITS/ML 3 ML PEN SC SCH ×4 (08:39→22:26)
--- NOTE | 2017-11-08 11:22 | Cardiology Consultation ---
Cardiology Consultation Date of Service Nov 08, 2017. (Eboni Stock PA-C) Cardiology Consultation Requesting Provider: Sobia Patterson PA-C Attending Pipe Threading Machine Operator: Dr. Rivera HISTORY OF PRESENT ILLNESS: Mr. Canseco is a 72-year-old male who follows with Dr. Suarez for history of CAD, with old inferior wall myocardial infarction and severe multivessel disease, deemed not amenable to intervention per past records, mild ischemic cardiomyopathy with LVEF 45-50% per echo in Aug 2017, history of PE/DVT on chronic Coumadin. recent history includes admission in Aug 2017 with new onset symptomatic atrial flutter. Started on sotalol and underwent [place] guided cardioversion, with conversion to NSR. As an outpatient he was found to have bradycardia and sotalol dose was reduced to 40 mg BID. Consideration for pacemaker implantation was discussed for underlying tachybrady and close monitoring recommended. However, several weeks later, pateint presented to [place] after a fall. He was found to have significant bradyarrhythmias and prolonged QT. Sotalol was discontinued. 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 Metoprolol succinate was initiated after procedure and patient maintained NSR. At hosp f/u last week with PCP, patient reports he had a near syncopal/syncopal event when trying to stand on the scale. No injuries. His BP was reported as hypotensive with systolic readings in the 70s. Daily furosemide was reduced to 20 mg every other day. He was also noted to be hypokalemic on labs. Supplemental potassium was ordered. Patient reports he had several recurrent episodes of dizziness/lightheadedness over the last week. Yesterday he started to answer the door and approximately 1 minute later he became significantly lightheaded and had a syncopal spell. No significant injuries. Patient reports he was unconscious for 1-2 minutes. No bowel or bladder incontinence. No seizure-like activity. He reports feeling clammy and cold after episode. He then began to have nausea and several episodes of vomiting. No chest pain or shortness of breath. No orthopnea, PND or edema. He notes chronic cough, unchanged. He reports normal appetite with food and fluid intake. No sense of palpitations or tachypalpitations. Upon arrival in ER, patient was found to be mildly hypotensive with severe electrolyte disturbances, potassium 2.9 and magnesium 1.6. Pacemaker interrogation completed, demonstrating appropriate function/battery longevity, no arrhythmias. EKG demonstrated NSR without acute changes. Head CT unremarkable. He continued to have emesis in the ER, resolved with Zofran. Started on electrolyte replacements and IV fluids. At time of consult patient feeling well. No recurrent dizziness or lightheadedness since ER. Notes chronic cough, unchanged. No chest pain or SOB. No sense of palpitations or tachypalptiations. No orthopnea, PND or edema. No abdominal pain, diarrhea, or recurrent vomiting. Review of Systems: See HPI for pertinent positives. All other 10 point review of systems. PAST MEDICAL HISTORY: 1. Paroxysmal atrial fibrillation, on chronic sotalol and warfarin therapy. 2. Coronary artery disease with inferior wall myocardial infarction and severe multivessel disease, deemed not amenable to intervention. 3. Ischemic cardiomyopathy, EF 45-49%. 4. History of DVT and PE, on chronic Coumadin therapy. 5. Hyperlipidemia. 6. History of pericardial effusion, status post window. 7. History of vasovagal/cough syncope. 8. COPD. 9. Peripheral arterial disease. 10. History of tobacco abuse. 11. Chronic kidney disease. 12. History of perirenal masses PAST SURGICAL HISTORY: 1. [place]-guided cardioversion 08/2017. 2. Cardiac catheterizations. 3. Multiple toe amputations. 4. Upper endoscopy. 5. Cholecystectomy. 6. Pericardial window and drainage. FAMILY HISTORY: Noncontributory. SOCIAL HISTORY: Prior tobacco abuse, rare alcohol use. . Lives with . ALLERGIES: LEVAQUIN, Onion, Ipratropium, Albuterol MEDICATIONS AN OUTPATIENT: Reported Home Medications Medications Dose Route/Sig Max Daily Dose Days Date Category Dose Instructions Lasix (Furosemide) 20 Mg Tab 20 Mg PO Q2D 11/07/17 Reported Percocet 5MG/325MG (Oxycodone/Acetaminophen) Tab 1 Tablet PO Q6H PRN 11/07/17 Reported PAIN Lidocaine 5 % Pad 1 Patch TD Q24 11/07/17 Reported Metoprolol Succinate ER (Metoprolol Succinate) 25 Mg Tabcr 25 Mg PO QAM 11/07/17 Reported Hycodan 5/1.5MG 5 Ml (Hydrocodone W/ Homatropine) 1 Syp Syp 5 Ml PO HS PRN 09/06/17 Reported Lantus (Insulin Glargine) 100 Unit/Ml Inj 30 Units SC HS 09/06/17 Reported Novolog (Insulin Aspart) 100 Units/Ml Inj 09/06/17 Reported SLIDING SCALE if no food >= 189 then usually 2 units Jantoven (Warfarin Sodium) 2 Mg Tab 4 Mg PO 5XWK 03/21/17 Reported SUN, MON, TUES, THURS, FRI Jantoven (Warfarin Sodium) 2 Mg Tab 2 Mg PO 2XWK 05/07/16 Reported WED AND SAT Aspirin 325 Mg Tab 325 Mg PO HS 12/29/14 Reported Singulair (Montelukast Sodium) 10 Mg Tab 10 Mg PO QPM 12/29/14 Reported Isordil (Isosorbide Dinitrate) 40 Mg Tab 40 Mg PO HS 12/29/14 Reported Allopurinol 300 Mg Tab 300 Mg PO HS 09/22/14 Reported Crestor (Rosuvastatin Calcium) 40 Mg Tab 40 Mg PO HS 09/22/14 Reported Nitrostat (Nitroglycerin) 0.4 Mg Tab 0.4 Mg UT UD PRN 08/19/09 Reported Zantac (Ranitidine HCl) 150 Mg Tab 150 Mg PO BID 03/26/09 Reported Mysoline (Primidone) 250 Mg Tab 500 Mg PO HS 04/05/09 Reported PHYSICAL EXAMINATION: Last 8 Hrs Date Time Temp Pulse Resp B/P (MAP) Pulse Ox O2 Delivery O2 Flow Rate FiO2 11/08/17 10:22 75 107/62 (77) 93 Room Air 78 110/66 (81) 85 94/57 (69) 11/08/17 09:41 Room Air 11/08/17 07:46 36.5 80 18 112/67 (82) 95 11/08/17 04:00 37.0 80 20 100/57 (71) 91 Room Air 11/08/17 04:00 Room Air GENERAL: Awake, alert, oriented x3, in no acute distress, audible wheezing which is the patient's baseline. HEENT: Normocephalic, atraumatic. Pupils equal, round, react to light and accommodation. Extraocular muscles intact. Anicteric sclerae. Moist mucous membranes. NECK: No JVD or bruit. CARDIOVASCULAR: Regular. No audible murmurs PULMONARY: Diffuse rhonchi. no rales. ABDOMEN: Bowel sounds x4, soft. No rebound, guarding, tenderness. No organomegaly. EXTREMITIES: No clubbing, cyanosis or edema. +2 pedal pulses bilaterally. SKIN: Warm and dry. TEST RESULTS: EKG on admission: Normal sinus rhythm Old inferior infarct, no significant change from previous Repeat EKG this AM: NSR with PVC's. Unchanged from previous. Pacemaker CT of abdomen/chest: IMPRESSION: 1. No evidence of bowel obstruction. No evidence of free air 2. Diverticulosis. No evidence of acute diverticulitis 3. Bilateral lower lobe bronchiectasis 4. Bilateral nephrolithiasis 5. Stable bilateral low-density perirenal masses 6. Stable borderline enlarged para-aortic lymph nodes 7. Prostamegaly Head CT: Impression: No acute intracranial abnormality. Atrophy and microvascular ischemic changes. Mild sinus disease as described above. Last 24 Hours Test 11/07/17 14:27 11/07/17 14:35 11/07/17 14:43 11/07/17 14:47 Bedside Glucose 146 mg/dl White Blood Count 6.19 K/uL Red Blood Count 5.03 M/uL Hemoglobin 13.7 g/dL Hematocrit 42.6 % Mean Corpuscular Volume 84.7 fL Mean Corpuscular Hemoglobin 27.2 pg Mean Corpuscular Hemoglobin Concent 32.2 g/dl Platelet Count 202 K/uL Mean Platelet Volume 9.7 fL Neutrophils (%) (Auto) 72.2 % Lymphocytes (%) (Auto) 17.8 % Monocytes (%) (Auto) 6.6 % Eosinophils (%) (Auto) 2.9 % Basophils (%) (Auto) 0.3 % Neutrophils # (Auto) 4.47 K/uL Lymphocytes # (Auto) 1.10 K/uL Monocytes # (Auto) 0.41 K/uL Eosinophils # (Auto) 0.18 K/uL Basophils # (Auto) 0.02 K/uL RDW Standard Deviation 48.8 fL RDW Coefficient of Variation 15.9 % Immature Granulocyte % (Auto) 0.2 % Immature Granulocyte # (Auto) 0.01 K/uL Prothrombin Time 39.0 SECONDS Prothromb Time International Ratio 3.8 Activated Partial Thromboplast Time 39.5 SECONDS Partial Thromboplastin Ratio 1.5 Sodium Level 136 mmol/L Potassium Level 2.9 mmol/L Chloride Level 100 mmol/L Carbon Dioxide Level 27 mmol/L Anion Gap 9.0 mmol/L 19.0 mmol/L Blood Urea Nitrogen 17 mg/dl Creatinine 1.46 mg/dl Est Creatinine Clear Calc Drug Dose 54.0 ml/min Estimated GFR () 55.7 Estimated GFR (Non- 48.0 BUN/Creatinine Ratio 11.8 Random Glucose 136 mg/dl Calcium Level 9.6 mg/dl Magnesium Level 1.4 mg/dl Total Bilirubin 0.5 mg/dl Direct Bilirubin 0.2 mg/dl Aspartate Amino Transf (AST/SGOT) 36 U/L Alanine Aminotransferase (ALT/SGPT) 21 U/L Alkaline Phosphatase 223 U/L Total Creatine Kinase 50 U/L Total Protein 8.1 gm/dl Albumin 2.9 gm/dl Lipase 57 U/L Bedside Hemoglobin 15.0 g/dl Bedside Hematocrit 44 % Bedside Sodium 138 mEq/L Bedside Potassium 3.0 mEq/L Bedside Chloride 98 mEq/L Bedside Total CO2 25 mEq/l Bedside Blood Urea Nitrogen 19 mg/dl Bedside Creatinine 1.2 mg/dl Bedside Glucose (other) 143 mg/dl Bedside Ionized Calcium (Nazario) 1.13 mmol/l Bedside Lactic Acid Venous 4.81 mmol/L Test 11/07/17 15:03 11/07/17 15:15 11/07/17 17:39 11/07/17 19:06 Bedside Troponin I < 0.030 ng/ml Venous Blood pH 7.46 Venous Blood Partial Pressure CO2 39 mmHg Venous Blood Partial Pressure O2 24 mmHg Venous Blood HCO3 28 mmol/L Venous Blood Oxygen Saturation < 60.0 % Venous Blood Base Excess 3.5 mEq/L Bedside Lactic Acid Venous 2.97 mmol/L Bedside Glucose 126 mg/dl Test 11/07/17 20:53 11/07/17 21:02 11/07/17 21:33 11/08/17 00:33 Hepatitis C Antibody Screen NEG Potassium Level 3.9 mmol/L Lactic Acid Level 3.3 mmol/L 2.2 mmol/L Magnesium Level 1.7 mg/dl Troponin I 0.016 ng/ml Bedside Glucose 183 mg/dl Test 11/08/17 05:34 11/08/17 07:34 White Blood Count 5.34 K/uL Red Blood Count 4.11 M/uL Hemoglobin 11.0 g/dL Hematocrit 35.3 % Mean Corpuscular Volume 85.9 fL Mean Corpuscular Hemoglobin 26.8 pg Mean Corpuscular Hemoglobin Concent 31.2 g/dl RDW Standard Deviation 50.9 fL RDW Coefficient of Variation 16.1 % Platelet Count 163 K/uL Mean Platelet Volume 9.4 fL Prothrombin Time 45.1 SECONDS Prothromb Time International Ratio 4.4 Sodium Level 141 mmol/L Potassium Level 3.8 mmol/L Chloride Level 107 mmol/L Carbon Dioxide Level 30 mmol/L Anion Gap 4.0 mmol/L Blood Urea Nitrogen 16 mg/dl Creatinine 1.20 mg/dl Est Creatinine Clear Calc Drug Dose 66.6 ml/min Estimated GFR () 70.6 Estimated GFR (Non- 60.9 BUN/Creatinine Ratio 13.4 Random Glucose 71 mg/dl Lactic Acid Level 2.0 mmol/L Calcium Level 8.1 mg/dl Magnesium Level 1.6 mg/dl Bedside Glucose 82 mg/dl Prior DATA: 2D echocardiogram report reviewed dated August 2017 at [facility]: Rhythm during examination was atrial flutter. Normal LV chamber size with mild concentric LVH, sigmoid appearing septum. Mildly reduced LV systolic function with moderate hypokinesis of the inferior wall, EF 45-50%. Aortic valve sclerosis mild, without significant aortic valvular stenosis. Mild mitral regurgitation. Moderate left atrial enlargement IMPRESSION: 1. Syncope, likely secondary to orthostatic hypotension, volume depletion, and electrolyte disturbances 2. Recent implantation of dual chamber [employer] pacemaker on 10/19 secondary to tachybrady. Stable function 3. Paroxysmal atrial fibrillation, currently in NSR, chronic anticoagulation. On low dose metoprolol 4. Profound hypokalemia and hypomagnesium. 5. History to Mild ischemic cardiomyopathy, EF 45% per last echo 08/2017. 6. Diffuse coronary artery disease, deemed not amenable to intervention in the past. 7. History of pericardial effusion in the remote past s/p pericardial window RECOMMENDATIONS: Orthostatic vital signs. IV fluids Electrolyte replacement. Hold furosemide and isosorbide for now. Symptoms improving. Continue low dose metoprolol. Telemetry reviewed, no arrhythmias. Pacemaker demonstrates appropriate function without arrhythmias. Update 2Decho, r/o effusion since pacemaker. Case discussed with Dr. Rivera. Will follow. Patient already has cardiology f/u scheduled for 11/[address] Suarez. Patient to keep this appt. (Eboni Stock, PA-C) Cardiology attending physician: Patient seen and examined at the bedside. No recurrent lightheadedness since admission. Denies chest pain or shortness of breath. No edema, orthopnea, or PND. Denies palpitations. PE: VSS. Gen: NAD, AAOx3. Heart: Regular, normal S1S2. no murmur. Lungs: + Expiratory wheeze bilateral. Extremities: No edema A/P: Agree with above CINDA history, physical exam, assessment and plan. Diuretics and isosorbide monohydrate will remain on hold. Continue low-dose beta-isaías therapy. Continue to encourage oral hydration. Will monitor telemetry during hospitalization. Review resting 2D transthoracic echo result when available. Thank you for allowing me to participate in the care of your patient. Jack Rivera DO, FACC (Rio Rivera DO)
--- NOTE | 2017-11-08 16:36 | ECHOCARDIOGRAM REPORT ---
*NOTICE TO RECEIVING REPUBLICAN AGENCY This information is strictly Confidential and protected under [place] law. [place] law prohibits you from making any further disclosure of this information unless further disclosure is expressly permitted by the written consent of the person to whom it pertains or is authorized by law. A general authorization for the release of medical or other information is not sufficient for this purpose. Hospital accepts no responsibility if the information is made available to any other person, INCLUDING THE PATIENT. Interpretation Summary * Name: DARREL ETIENNE Study Date: 11/08/2017 09:57 AM BP: 94/57 mmHg * Patient Location: [facility]\S\N281\S\2 HR: 87 * : 1945 (M/d/yyyy) Gender: Male Height: 74 in * Age: 72 yrs Ethnicity: [place] Weight: 207 lb * Ordering Physician: Eboni Stock * Referring Physician: Self, Referred * Performed By: Shyann Liao RCS * * Reason For Study: HYPOTENSION / POST PACEMAKER * BSA: 2.2 m2 * The study was technically adequate. * Compared to prior study, there is no significant change. * -- Conclusions -- * Left ventricular systolic function is mildly reduced. * Ejection Fraction = 45-50%. * There is mild concentric left ventricular hypertrophy. * The inferior and posterior castillo are hypokinetic. * The left atrium is moderately dilated. * Aortic valve sclerosis moderate, without significant aortic valvular stenosis. * There is mild mitral regurgitation. * There is mild tricuspid regurgitation. * Grade I diastolic dysfunction, (abnormal relaxation pattern). Procedure Details * A complete two-dimensional transthoracic echocardiogram was performed (2D, M-mode, Doppler and color flow Doppler). Left Ventricle * The left ventricle is normal in size. * There is mild concentric left ventricular hypertrophy. * Left ventricular systolic function is mildly reduced. * Ejection Fraction = 45-50%. * The inferior and posterior castillo are hypokinetic. Right Ventricle * The right ventricle is normal size. * There is a pacemaker lead in the right ventricle. * The right ventricular systolic function is normal as assessed by tricuspid annular plane systolic excursion (TAPSE) (normal >1.5 cm). Atria * The left atrium is not well visualized. * The left atrium is moderately dilated. * Right atrial size is normal. * There is no evidence of atrial septal defect, but resolution does not allow assessment for a patent foramen ovale. Mitral Valve * The mitral valve is normal. * There is no mitral valve stenosis. * There is mild mitral regurgitation. Tricuspid Valve * The tricuspid valve is normal. * There is no tricuspid stenosis. * There is mild tricuspid regurgitation. * Doppler findings do not suggest pulmonary hypertension. Aortic Valve * The aortic valve is not well visualized. * Aortic valve sclerosis moderate, without significant aortic valvular stenosis. * Aortic stenosis is absent. * There is no significant aortic regurgitation. Pulmonic Valve * The pulmonary valve is not well seen, but the Doppler examination is normal without significant regurgitation or stenosis. Great Vessels * The aortic root is normal size. Pericardium/Pleural * There is no pericardial effusion. Great Vessels * Normal inferior vena cava diameter and respiratory variation suggests normal central venous pressure. Left Ventricular Diastolic Function * Grade I diastolic dysfunction, (abnormal relaxation pattern). MMode 2D Measurements and Calculations IVSd 1.6 cm IVSs 1.9 cm LVIDd 4.9 cm LVIDs 4.0 cm LVPWd 1.3 cm LVPWs 1.6 cm IVS/LVPW 1.2 FS 18.0 % EDV(Teich) 111.9 ml ESV(Teich) 70.0 ml EF(Teich) 37.4 % EDV(cubed) 116.4 ml ESV(cubed) 64.0 ml EF(cubed) 45.0 % % IVS thick 18.7 % % LVPW thick 20.7 % LV mass(C)d 296.3 grams LV mass(C)dI 134.4 grams/m\S\2 LV mass(C)s 294.6 grams LV mass(C)sI 133.6 grams/m\S\2 SV(Teich) 41.8 ml SI(Teich) 19.0 ml/m\S\2 SV(cubed) 52.3 ml SI(cubed) 23.7 ml/m\S\2 Ao root diam 3.3 cm Ao root area 8.5 cm\S\2 ACS 1.7 cm LA dimension 4.7 cm LA/Ao 1.4 LVOT diam 2.2 cm LVOT area 4.0 cm\S\2 LVAd ap4 34.5 cm\S\2 LVLd ap4 7.8 cm EDV(MOD-sp4) 123.1 ml EDV(sp4-el) 129.2 ml LVAs ap4 23.8 cm\S\2 LVLs ap4 6.9 cm ESV(MOD-sp4) 67.9 ml ESV(sp4-el) 69.6 ml EF(MOD-sp4) 44.8 % EF(sp4-el) 46.1 % SV(MOD-sp4) 55.1 ml SI(MOD-sp4) 25.0 ml/m\S\2 SV(sp4-el) 59.6 ml SI(sp4-el) 27.0 ml/m\S\2 Doppler Measurements and Calculations MV E max kat 61.3 cm/sec MV A max kat 35.9 cm/sec MV E/A 1.7 MV P1/2t max kat 83.5 cm/sec MV P1/2t 104.4 msec MVA(P1/2t) 2.1 cm\S\2 MV dec slope 234.3 cm/sec\S\2 MV dec time 0.31 sec Ao V2 max 118.1 cm/sec Ao max PG 5.6 mmHg Ao max PG (full) 4.2 mmHg TYRON(V,A) 2.0 cm\S\2 TYRON(V,D) 2.0 cm\S\2 LV V1 max PG 1.4 mmHg LV V1 max 59.2 cm/sec MR max kat 446.1 cm/sec MR max PG 79.9 mmHg PA V2 max 73.8 cm/sec PA max PG 2.2 mmHg TR max kat 218.3 cm/sec
--- NOTE | 2017-11-08 17:27 | Progress Note ---
Medicine Progress Note Date & Time of Visit: Nov 08, 2017 at 17:27. Subjective Patient denies any near syncope since admission, also states he has not really been ambulating much since admission. Denies any complaints of CP or SOB. Family was at the bedside and updated. No overnight events noted. Tolerating PO. N/V resolved. Objective Last 8 Hrs Date Time Temp Pulse Resp B/P (MAP) Pulse Ox O2 Delivery O2 Flow Rate FiO2 11/08/17 16:00 Room Air 11/08/17 15:04 36.9 67 20 96/51 (66) 96 Room Air 11/08/17 12:00 Room Air 11/08/17 11:51 36.9 79 16 118/69 (85) 92 11/08/17 10:22 75 107/62 (77) 93 Room Air 78 110/66 (81) 85 94/57 (69) 11/08/17 09:41 Room Air Physical Exam: GENERAL: Patient is in no acute distress. HEENT: No acute trauma, normocephalic, mucous membranes moist, no nasal congestion, no scleral icterus. NECK: No stridor, trachea is midline. LUNGS: Diminished bases bilaterally, no wheeze, no rhonchi, breath sounds equal. HEART: Without murmurs gallops or rubs, regular rate and rhythm. ABDOMEN: Soft, nontender, bowel sounds positive EXTREMITIES: No cyanosis; B/L LE trace edema, full range of motion of all the joints without pain or difficulty, no signs for acute trauma. NEUROLOGIC: Oriented x 3, no acute motor or sensory deficits, no focal weakness. SKIN: No rash, no jaundice, no diaphoresis. Laboratory Results: Last 24 Hours Test 11/07/17 17:39 11/07/17 19:06 11/07/17 20:53 11/07/17 21:02 Bedside Lactic Acid Venous 2.97 mmol/L Bedside Glucose 126 mg/dl Hepatitis C Antibody Screen NEG Potassium Level 3.9 mmol/L Lactic Acid Level 3.3 mmol/L Magnesium Level 1.7 mg/dl Troponin I 0.016 ng/ml Test 11/07/17 21:33 11/08/17 00:33 11/08/17 05:34 11/08/17 07:34 Bedside Glucose 183 mg/dl 82 mg/dl Lactic Acid Level 2.2 mmol/L 2.0 mmol/L White Blood Count 5.34 K/uL Red Blood Count 4.11 M/uL Hemoglobin 11.0 g/dL Hematocrit 35.3 % Mean Corpuscular Volume 85.9 fL Mean Corpuscular Hemoglobin 26.8 pg Mean Corpuscular Hemoglobin Concent 31.2 g/dl RDW Standard Deviation 50.9 fL RDW Coefficient of Variation 16.1 % Platelet Count 163 K/uL Mean Platelet Volume 9.4 fL Prothrombin Time 45.1 SECONDS Prothromb Time International Ratio 4.4 Sodium Level 141 mmol/L Potassium Level 3.8 mmol/L Chloride Level 107 mmol/L Carbon Dioxide Level 30 mmol/L Anion Gap 4.0 mmol/L Blood Urea Nitrogen 16 mg/dl Creatinine 1.20 mg/dl Est Creatinine Clear Calc Drug Dose 66.6 ml/min Estimated GFR () 70.6 Estimated GFR (Non- 60.9 BUN/Creatinine Ratio 13.4 Random Glucose 71 mg/dl Calcium Level 8.1 mg/dl Magnesium Level 1.6 mg/dl Test 11/08/17 11:35 11/08/17 11:55 11/08/17 12:00 Bedside Glucose 63 mg/dl 61 mg/dl 68 mg/dl Assessment & Plan RECURRENT SYNCOPE: -patient reports several events in the past few weeks; sometimes occurs without warning, other times patient has a feeling of near syncope first -initially thought to be from bradycardia; patient has a PM which was interrogated with no issues noted -Became dizzy and fell in clinic last week; no LOC but hypotensive at the time -s/p PM placement on 10/19. No abnormalities with 10/26 interrogation -has associated dizziness, nausea and vomiting similar to previous events -Head CT: no acute abnormalities -found to have low mag and potassium -Orthostatic vitals negative -PM interrogation: no events -IVF resuscitation, now off fluids -Lasix held for now -Cardio consulted, recommend holding isosorbide which will be done -telemetry monitoring continued; no events noted LACTIC ACIDOSIS: -Slightly elevated to 2.97--now improved following hydration -recent pneumonia which is resolving -Respiratory status is back to baseline -CXR negative -UA without evidence of infection -No leukocytosis -IV fluids off now NAUSEA/VOMITING: resolved -secondary to syncopal episode/fall earlier today -PRN anti-emetics -CT abd/pelvis without evidence of bowel obstruction, infectious colitis -IV fluids, replace electrolytes -no dizziness or vertigo A Fib (on coumadin): Tachy-melissa s/p PM placement -INR supratherapeutic at 4.4 -continue to hold coumadin -Recheck INR -continue metoprolol CHRONIC SYSTOLIC CHF: known ischemic cardiomyopathy -TTE: no significant change from Aug 2017 EF 45-50%, mild concentric LVH, hypokinesis of inferior and posterior castillo, left atrium moderate dilation, mild MR and TR; Grade I diastolic dysfunction -appears compensated -received resuscitating fluids with caution, IV fluids off today, encouraged PO -Lasix held, isosorbide held -BB continued CAD: -EKG with T wave inversion -troponins negative -Continue statin, aspirin HTN: -Normotensive now -Lasix held. Continue metoprolol -imdur on hold DM II: -HbA1c: 8.8 in Aug 2017 -Hold home meds -Basal insulin + correction scale while in-patient -BSG AC HS -had hypoglycemia, will loosen the correction scale and adjust lantus COPD: -not in acute exacerbation -continue home meds Hx of CVA: -continue aspirin PRIOR PE and DVT: -restart coumadin when able -INR supratherapeutic PERINEPHRIC MASSES: -noted on previous admission; stable -Urology follow up recommended as an outpatient Current Inpatient Medications: Current Inpatient Medications Medications (Trade) Dose Ordered Sig/Kendrick Route Start Time Stop Time Status Last Admin Dose Admin Ioversol (Optiray 320) 100 ml UD PRN IV 11/07/17 16:15 11/11/17 16:14 Acetaminophen (Tylenol Tab) 650 mg Q4H PRN PO 11/07/17 18:00 12/07/17 17:59 Allopurinol (Zyloprim Tab) 300 mg HS PO 11/07/17 21:00 12/07/17 20:59 11/07/17 21:42 300 MG Aspirin (Ecotrin Tab) 325 mg HS PO 11/07/17 21:00 12/07/17 20:59 11/07/17 21:41 325 MG Hydrocodone Bit/ Homatropine Methylb (Hycodan Syrup) 5 ml HS PRN PO 11/07/17 18:30 11/21/17 18:29 Isosorbide Dinitrate (Isordil Tab) 40 mg HS PO 11/07/17 21:00 12/07/17 20:59 11/07/17 21:39 40 MG Lidocaine (Lidoderm Patch 5%) 1 patch DAILY TD 11/08/17 09:00 12/08/17 08:59 11/08/17 08:36 1 PATCH Metoprolol Succinate (Toprol Xl Tab) 25 mg QAM PO 11/08/17 09:00 12/08/17 08:59 11/08/17 08:36 25 MG Montelukast Sodium (Singulair Tab) 10 mg QPM PO 11/07/17 21:00 12/07/17 20:59 11/07/17 21:41 10 MG Nitroglycerin (Nitrostat Tab) 0.4 mg UD PRN UT 11/07/17 18:30 12/07/17 18:29 Primidone (Mysoline Tab) 500 mg HS PO 11/07/17 21:00 12/07/17 20:59 11/07/17 21:37 500 MG Ranitidine HCl (zANTac TAB) 150 mg BID PO 11/07/17 21:00 12/07/17 20:59 11/08/17 08:36 150 MG Rosuvastatin Calcium (Crestor Tab) 40 mg HS PO 11/07/17 21:00 12/07/17 20:59 11/07/17 21:46 40 MG Miscellaneous (Remove Lidoderm Patch) 1 ea DAILY@21 N/A 11/07/17 21:00 12/07/17 20:59 Insulin Glargine (Lantus Solostar Pen) If BSG < 110, give 0 uni... HS SC 11/07/17 21:00 12/07/17 20:59 11/07/17 21:44 30 UNITS Insulin Aspart (novoLOG ASPART) SLIDING SCALE If C... ACHS SC 11/07/17 21:00 12/07/17 20:59 11/08/17 12:17 6 UNITS Glucose (Glucose 40% Gel) 15-30 GRAMS 15 GRAMS... UD PRN PO 11/07/17 19:30 12/07/17 19:29 Glucose (Glucose Chew Tab) 4-8 Tablets 4 Tabl... UD PRN PO 11/07/17 19:30 12/07/17 19:29 Dextrose (Dextrose 50% 50ML Syringe) 25-50ML OF 50% DW IV FOR... UD PRN IV 11/07/17 19:30 12/07/17 19:29 Glucagon (Glucagon Inj) 1 mg UD PRN SQ 11/07/17 19:30 12/07/17 19:29
[2017-11-08] MEDS: ASPIRIN 325 MG ECTAB PO SCH (21:33)
[2017-11-08] MEDS: ROSUVASTATIN CALCIUM 20 MG TAB PO SCH (21:34)
[2017-11-08] MEDS: PRIMIDONE 250 MG TAB PO SCH (21:35)
[2017-11-08] MEDS: MONTELUKAST SOD 10 MG TAB PO SCH (21:36)
[2017-11-08] MEDS: ALLOPURINOL 300 MG TAB PO SCH (21:36)
[2017-11-08] MEDS: INSULIN GLARGINE SOLOSTAR 100 UNITS/ML 3 ML PEN SC SCH (22:27)
[2017-11-08] MEDS ORDERED: OXYCODONE/ACETAMINOPHEN 5-325 TAB PO PRN (23:00)
[2017-11-09 00:01] VITALS: BP 125/73; PULSE 75; TEMP 36.9; O2SAT 96
[2017-11-09 04:47] VITALS: BP 107/67; PULSE 70; TEMP 36.5; O2SAT 91
[2017-11-09 06:04] LABS: HEMATOCRIT 35.3 % (42-52); MEAN CELL VOLUME 86.3 fL (80-100); MEAN CORPUSCULAR HEMOGLOBIN 26.9 pg (25-34); MEAN CORPUSCULAR HGB CONC 31.2 g/dl (32-36); MEAN PLATELET VOLUME 8.9 fL (7.4-10.4); PLATELET COUNT 149 K/uL (130-400); RED CELL DISTRIBUTION WIDTH CV 16.2 % (11.5-14.5); RED CELL DISTRIBUTION WIDTH SD 51.3 fL (36.4-46.3); WHITE BLOOD COUNT 4.79 K/uL (4.8-10.8)
[2017-11-09 06:43] LABS: CALCIUM 8.4 mg/dl (8.5-10.1); CREATININE 1.03 mg/dl (0.60-1.40); POTASSIUM 3.9 mmol/L (3.5-5.1)
[2017-11-09 07:30] VITALS: BP 116/70; PULSE 65; TEMP 36.3; O2SAT 93
[2017-11-09] MEDS: METOPROLOL SUCC 25MG EXT REL TAB PO SCH (08:09)
[2017-11-09] MEDS: RANITIDINE HCL 150 MG TAB PO SCH (08:09)
[2017-11-09] MEDS: LIDODERM (LIDOCAINE) PATCH 5% TD SCH (08:09)
[2017-11-09] MEDS ORDERED: PHARMACY GLYCEMIC MGMT CONSULT PRN (08:15)
[2017-11-09 08:24] VITALS: Ht 188 cm; Wt 94.9 kg
[2017-11-09] MEDS ORDERED: MAGNESIUM CHLORIDE 64MG DELAYED REL TAB PO SCH (09:00)
--- NOTE | 2017-11-09 10:08 | Cardiology Follow-Up ---
Subjective General Date of Service: Nov 09, 2017. Chief Complaint: dizziness; syncope Pt evaluation today including: conversation w/ patient, physical exam, chart review, lab review, review of studies, conversation w/ php consultant, review of inpatient medication list History of Present Illness Patient feeling well this AM. Denies recurrent lightheadedness, dizziness, syncope or near syncope. BP improving. No chest pain or SOB. Chronic wheezing noted, which patient reports is unchanged. Allergies Coded Allergies: Onion (Verified Allergy, Intermediate, RASH, 11/07/17) Levofloxacin (Verified Allergy, Mild, other, 11/07/17) ' Albuterol (Verified Adverse Reaction, Mild, 0, 11/07/17) cough syncope Ipratropium (Verified Adverse Reaction, Mild, 0, 11/07/17) cough syncope Social History Smoking Status: Former Smoker Hx Tobacco Use In Past Year?: No Hx Alcohol Use - Type And Amou: No Hx Substance Use - Type And Am: No Problem List Medical Problems: (1) Aspiration pneumonia Status: Acute (2) Bronchitis Status: Acute (3) Chest pain Status: Acute (4) H/O cardiac pacemaker Status: Acute (5) Hypokalemia Status: Acute (6) Hypomagnesemia Status: Acute (7) Hypoxia Status: Acute (8) Hypoxia Status: Acute (9) Nausea & vomiting Status: Acute (10) Pneumonia Status: Acute (11) Syncope Status: Acute Review of Systems Respiratory: + cough, + wheezing, No shortness of breath, No dyspnea at rest Cardiac: No chest pain, No orthopnea, No PND, No edema, No palpitations Physical Exam Vital Signs Last Vital Signs Documentation Date Time Temp Pulse Resp B/P (MAP) Pulse Ox O2 Delivery O2 Flow Rate FiO2 11/09/17 08:00 Room Air 11/09/17 07:30 36.3 65 18 116/70 (85) 93 11/07/17 17:06 4.0 Physical Exam Constitutional: Level of Distress: NAD Ambulation: ambulating normally Psychiatric: Mental Status: active & alert Orientation: to time, to place, to person Head: normocephalic Eyes: Pupils: PERRLA Neck: supple Lungs: Auscultation: expiratory wheezing, rhonchi Cardiovascular: Heart Auscultation: RRR, no murmurs Abdomen: Bowel Sounds: normal Inspection & Palpation: soft, non-distended Extremities: no edema Assessment and Plan Assessment and Plan IMPRESSION: 1. Syncope, likely secondary to orthostatic hypotension, volume depletion, and electrolyte disturbances 2. Recent implantation of dual chamber [employer] pacemaker on 10/19 secondary to tachybrady. Stable function 3. Paroxysmal atrial fibrillation, currently in NSR, chronic anticoagulation. On low dose metoprolol 4. Profound hypokalemia and hypomagnesium. 5. History to Mild ischemic cardiomyopathy, EF 45% per last echo 08/2017. Stable. 6. Diffuse coronary artery disease, deemed not amenable to intervention in the past. 7. History of pericardial effusion in the remote past s/p pericardial window Echo results - The study was technically adequate. Compared to prior study, there is no significant change. -- Conclusions -- Left ventricular systolic function is mildly reduced. Ejection Fraction = 45-50%. There is mild concentric left ventricular hypertrophy. The inferior and posterior castillo are hypokinetic. The left atrium is moderately dilated. Aortic valve sclerosis moderate, without significant aortic valvular stenosis. There is mild mitral regurgitation. There is mild tricuspid regurgitation. Grade I diastolic dysfunction, (abnormal relaxation pattern). RECOMMENDATIONS: Improved symptoms. Recommend holding isordil and furosemide on discharge given low BP readings. Will re-evaluate BP and symtoms at cardiology f/u appt next week. Will also need close monitoring of electrolytes as outpatient. Continue metoprolol as prescribed. Encouraged hydration at home. Telemetry reviewed, no arrhythmias. Pacemaker demonstrates appropriate function without arrhythmias. Stable cardiac symptoms for discharge today. Patient already has cardiology f/u scheduled for 11/[address] Suarez. Patient to keep this appt. Case discussed with Dr. Rivera Cardiology attending physician: Patient seen and examined at the bedside. No recurrent lightheadedness. No sustained dysrhythmias on telemetry. Denies chest pain or shortness of breath. No edema, orthopnea, or PND. Denies palpitations. PE: VSS. Gen: NAD, AAOx3. Heart: Regular, normal S1S2. no murmur. Lungs: + Expiratory wheeze bilateral. Extremities: No edema A/P: Agree with above PA-C history, physical exam, assessment and plan. Diuretics and isosorbide monohydrate will remain on hold. Close cardiology follow-up scheduled next week. Continue low-dose beta-isaías therapy. Continue to encourage oral hydration. No further inpatient cardiac testing or intervention at this time. Cardiology will sign off. Please call with questions. Jack Rivera DO, [facility] Laboratory Results Last 24 Hours Test 11/08/17 11:35 11/08/17 11:55 11/08/17 12:00 11/08/17 16:06 Bedside Glucose 63 mg/dl 61 mg/dl 68 mg/dl 77 mg/dl Test 11/08/17 20:03 11/09/17 05:50 11/09/17 07:51 Bedside Glucose 158 mg/dl 86 mg/dl White Blood Count 4.79 K/uL Red Blood Count 4.09 M/uL Hemoglobin 11.0 g/dL Hematocrit 35.3 % Mean Corpuscular Volume 86.3 fL Mean Corpuscular Hemoglobin 26.9 pg Mean Corpuscular Hemoglobin Concent 31.2 g/dl RDW Standard Deviation 51.3 fL RDW Coefficient of Variation 16.2 % Platelet Count 149 K/uL Mean Platelet Volume 8.9 fL Sodium Level 137 mmol/L Potassium Level 3.9 mmol/L Chloride Level 104 mmol/L Carbon Dioxide Level 28 mmol/L Anion Gap 5.0 mmol/L Blood Urea Nitrogen 14 mg/dl Creatinine 1.03 mg/dl Est Creatinine Clear Calc Drug Dose 77.6 ml/min Estimated GFR () 84.9 Estimated GFR (Non- 73.3 BUN/Creatinine Ratio 13.3 Random Glucose 92 mg/dl Calcium Level 8.4 mg/dl Magnesium Level 1.9 mg/dl
--- NOTE | 2017-11-09 10:40 | Pharmacy Progress Note ---
Glycemic Control Intl Consult Date of Service Nov 09, 2017. Scope Glycemic Pharmacist consulted by Dr Lobo on 11/09/17 for glycemic control and to write orders per [facility] inpatient glycemic control protocol Objective Weight (Kilograms): 94.900 Accuchecks BSG (last 24hrs): Test 11/08/17 11:35 11/08/17 11:55 11/08/17 12:00 11/08/17 16:06 Bedside Glucose 63 mg/dl (70-99) 61 mg/dl (70-99) 68 mg/dl (70-99) 77 mg/dl (70-99) Test 11/08/17 20:03 11/09/17 05:50 11/09/17 07:51 Bedside Glucose 158 mg/dl (70-99) 86 mg/dl (70-99) Random Glucose 92 mg/dl (70-99) Laboratory Data (last 24hrs) Test 11/09/17 05:50 Anion Gap 5.0 mmol/L BUN/Creatinine Ratio 13.3 Blood Urea Nitrogen 14 mg/dl Creatinine 1.03 mg/dl Potassium Level 3.9 mmol/L Sodium Level 137 mmol/L White Blood Count 4.79 K/uL Recent Pertinent Medications Outpatient Anti-diabetic Regimen: * Lantus 30 units HS * Novolog - 2 units for BSG 189 or greater * A1c = 8.8 % 09/07/17 The patient is currently receiving: * Basal insulin: Lantus 30 units HS * Correctional Insulin: Novolog Correction per scale ACHS Goal Range: Low 110 mg/dL - High 140 mg/dL Correction Factor: 40 mg/dL/unit * Prandial insulin: Per carb ratio of 1 unit per 20 grams CHO consumed Risk Factors for Insulin Resistance: * Diet: Type 2 DM Assessment & Plan ASSESSMENT: * 72 year old male type 2 diabetic admitted for recurrent syncope. Pt with hypoglycemia yesterday, pharmacy consulted. * D/t hypoglycemia, I will decrease Lantus based on BSG, and adjust CF and CR ( CF and CR were loosened yesterday after hypoglycemia) PLAN FOR INPATIENT GLYCEMIC CONTROL: * CHANGE: Basal insulin - LANTUS SQ HS * 20 units for BSG < 180mg/dl * 30 units for BSG 180mg/dl or greater * Correctional Insulin with NOVOLOG per scale ACHS or Q6hrs while NPO * Goal Range: Low 110 mg/dL - High 140 mg/dL * CHANGE: Correction Factor: 30 mg/dL/unit * CHANGE: Nutritional / Prandial insulin per carb ratio of 1 unit per 10 grams CHO consumed * Please note that the plan above was derived based on current level of insulin resistance and hospital stress. These recommendations are appropriate for inpatient admission only. Plan of care upon discharge will need to be reassessed to avoid potential outpatient hypo/hyperglycemia. Thank you.
[2017-11-09] MEDS ORDERED: INSULIN ASPART 100 UNITS/ML 3 ML PEN SC SCH (11:00)
[2017-11-09 11:55] VITALS: BP 96/58; PULSE 60; TEMP 36.8; O2SAT 91
--- NOTE | 2017-11-09 11:59 | Discharge Instructions ---
Discharge Instructions Date of Service Nov 09, 2017. Admission Reason for Admission: Nausea And Vomiting, Syncope Discharge Discharge Diagnosis / Problem: Syncope, Nausea/vomiting Discharge Goals Goal(s): Therapeutic intervention Activity Recommendations Activity Limitations: as noted below Lifting Limitations: gradually increase as tolerated Exercise/Sports Limitations: gradually increase as tolerated Avoid sudden changes in position, allow yourself time to adjust from laying down to sitting up, and from sitting to standing. . Instructions / Follow-Up Instructions / Follow-Up Please see Dr. Jin (covering for Dr. Mortensen) on November 15 at 10 AM for hospital follow up Please see Dr. Suarez on November 13 at 1:15PM Please do not take any coumadin today, please resume taking coumadin tomorrow ( MondayNovember 10, but only take 2 mg) Insulin instructions: If blood glucose is >180 take 30 units of lantus If blood glucose is <180 take 20 units of lantus Current Hospital Diet Patient's current hospital diet: AHA Diet (Heart Healthy), Diabetes Type 2 Diet Discharge Diet Recommended Diet: AHA Diet (Heart Healthy), Diabetes Type 2 Diet Pending Studies Studies pending at discharge: no Laboratory Results Hemoglobin A1c Test 09/07/17 06:53 Range/Units Estimated Average Glucose 206 mg/dl Hemoglobin A1c 8.8 H 4.5-5.6 % Lipid Panel Test 09/07/17 06:53 Range/Units Triglycerides Level 96 0-150 mg/dl Cholesterol Level 93 0-200 mg/dl HDL Cholesterol 30 mg/dl Cholesterol/HDL Ratio 3.1 LDL Cholesterol, Calculated 44 mg/dl Medical Emergencies . Who to Call and When: Medical Emergencies: If at any time you feel your situation is an emergency, please call 911 immediately. . Non-Emergent Contact Non-Emergency issues call your: Primary Care Provider, [employer] Cake Maker Call Non-Emergent contact if: you have a fever, your pain is worsening, you have any medication questions . . "Provider Documentation" section prepared by Kelly Lobo. .
[2017-11-09 12:08] LABS: INR 3.5 (0.9-1.1)
[2017-11-09 14:04] VITALS: BP 96/58; PULSE 60; TEMP 36.8; O2SAT 91
--- NOTE | 2017-11-12 10:37 | Discharge Summary ---
Discharge Summary Date of Service Nov 12, 2017. 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 Patient was recently admitted from October 16- for bilateral pneumonia, COPD exacerbation and bradycardia s/p pacemaker placement. Did well postoperatively. Was followed by cardiology during admission and the following medication changes were made: Sotalol was discontinued, metoprolol 25 mg every morning was started and lasix was held with instruction for PCP to reevaluate. Since discharge patient endorses 3 syncopal events, one of which occurred during his hospital follow-up appointment with Dr. Mortensen. Per chart review, patient was being weighed when he became dizzy and fell but did not lose consciousness. Was found to have a low blood pressure at this time. PCP decreased Lasix to 20mg every other day. Earlier today, patient was answering front door when he became dizzy and fell onto concrete floor. Denies head trauma. [place] nauseous and sweaty immediately following and vomited. plant senior manager was called over and patient was sent to ED for further evaluation. Endorses 5 additional episodes of vomiting while in the ED. Was given anti-emetics and nausea has improved. Otherwise, states that he feels normal. Denies fever, chills, lightheadedness, dizziness, confusion, visual changes, chest pain, shortness of breath, abdominal pain, dysuria, constipation, diarrhea or LE swelling. Had a normal pacemaker interrogation on October 26. Follows with Dr. Suarez in cardiology clinic. Physical Exam (per Admitting): General Appearance: WD/WN, no apparent distress Head: normocephalic, atraumatic Eyes: normal inspection, PERRL, sclerae normal ENT: normal ENT inspection, hearing grossly normal, pharynx normal (Dry mucous membranes) Neck: supple, thyroid normal, trachea midline Respiratory/Chest: chest non-tender, lungs clear, normal breath sounds, no respiratory distress, no accessory muscle use, + pertinent finding (Resolving ecchymosis by pacemaker on left chest wall) Cardiovascular: regular rate, rhythm, no murmur, normal peripheral pulses Abdomen/GI: normal bowel sounds, non tender, soft, no organomegaly Back: normal inspection Extremities/Musculoskelatal: normal inspection, no calf tenderness, no pedal edema Neurologic/Psych: no motor/sensory deficits, alert, normal mood/affect, oriented x 3 Skin: normal color, warm/dry Hospital Course RECURRENT SYNCOPE: -patient reports several events in the past few weeks; sometimes occurs without warning, other times patient has a feeling of near syncope first -initially thought to be from bradycardia; patient has a PM which was interrogated with no issues noted -Became dizzy and fell in clinic last week; no LOC but hypotensive at the time -s/p PM placement on 10/19. No abnormalities with 10/26 interrogation -has associated dizziness, nausea and vomiting similar to previous events -Head CT: no acute abnormalities -found to have low mag and potassium -Orthostatic vitals negative -PM interrogation: no events -IVF resuscitation, now off fluids -Lasix held for now -Cardio consulted, recommend holding isosorbide which will be done -telemetry monitoring continued; no events noted LACTIC ACIDOSIS: -Slightly elevated to 2.97--now improved following hydration -recent pneumonia which is resolving -Respiratory status is back to baseline -CXR negative -UA without evidence of infection -No leukocytosis -IV fluids off now NAUSEA/VOMITING: resolved -secondary to syncopal episode/fall earlier today -PRN anti-emetics -CT abd/pelvis without evidence of bowel obstruction, infectious colitis -IV fluids, replace electrolytes -no dizziness or vertigo A Fib (on coumadin): Tachy-melissa s/p PM placement -INR supratherapeutic at 4.4 -continue to hold coumadin -Recheck INR -continue metoprolol CHRONIC SYSTOLIC CHF: known ischemic cardiomyopathy -TTE: no significant change from Aug 2017 EF 45-50%, mild concentric LVH, hypokinesis of inferior and posterior castillo, left atrium moderate dilation, mild MR and TR; Grade I diastolic dysfunction -appears compensated -received resuscitating fluids with caution, IV fluids off today, encouraged PO -Lasix held, isosorbide held -BB continued CAD: -EKG with T wave inversion -troponins negative -Continue statin, aspirin HTN: -Normotensive now -Lasix held. Continue metoprolol -imdur on hold DM II: -HbA1c: 8.8 in Aug 2017 -Hold home meds -Basal insulin + correction scale while in-patient -BSG AC HS -had hypoglycemia, will loosen the correction scale and adjust lantus COPD: -not in acute exacerbation -continue home meds Hx of CVA: -continue aspirin PRIOR PE and DVT: -restart coumadin when able -INR supratherapeutic PERINEPHRIC MASSES: -noted on previous admission; stable -Urology follow up recommended as an outpatient Total time spent on discharge = This includes examination of the patient, discharge planning, medication reconciliation, and communication with other providers.
== END 2017-11-09 14:35 | disposition home health service (06) | DRG 312 ==
LOC: EDBD 14:06 → C.EDC 14:09 → UNDOADMIN 17:53 → C.MED 17:53 → ENRESERV 18:05
PROVIDERS: ADMIT Hospitalist; ATTEND Internal Medicine
DX: I95.1 Orthostatic hypotension (principal); E87.2 Acidosis; I13.0 Hypertensive heart and chronic kidney disease with heart failure and stage 1 through stage 4 chronic kidney disease, or unspecified chronic kidney disease; I50.22 Chronic systolic (congestive) heart failure; E87.6 Hypokalemia; E83.42 Hypomagnesemia; E86.9 Volume depletion, unspecified; R11.2 Nausea with vomiting, unspecified; N28.89 Other specified disorders of kidney and ureter; J44.9 Chronic obstructive pulmonary disease, unspecified; N18.3 Chronic kidney disease, stage 3 (moderate); I48.0 Paroxysmal atrial fibrillation; E11.22 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 diabetic chronic kidney disease; I25.10 Atherosclerotic heart disease of native coronary artery without angina pectoris; I25.5 Ischemic cardiomyopathy; I25.2 Old myocardial infarction; E78.5 Hyperlipidemia, unspecified; M10.9 Gout, unspecified; K21.9 Gastro-esophageal reflux disease without esophagitis; Z51.81 Encounter for therapeutic drug level monitoring; Z79.899 Other long term (current) drug therapy; Z79.01 Long term (current) use of anticoagulants; Z79.4 Long term (current) use of insulin; Z79.82 Long term (current) use of aspirin; Z95.0 Presence of cardiac pacemaker; Z91.81 History of falling; Z87.01 Personal history of pneumonia (recurrent); Z86.73 Personal history of transient ischemic attack (TIA), and cerebral infarction without residual deficits; Z86.711 Personal history of pulmonary embolism; Z86.718 Personal history of other venous thrombosis and embolism; Z87.891 Personal history of nicotine dependence; Z88.1 Allergy status to other antibiotic agents; Z88.8 Allergy status to other drugs, medicaments and biological substances; Z91.018 Allergy to other foods

== ENCOUNTER 2018-03-13 17:30 | Emergency (ER) | payer OTHER, MEDICARE ==
[~2018-03-13] VITALS: Ht 182.9 cm; Wt 101.3 kg
[~2018-03-13 17:30] MED LIST changes: -ISOS40TA PO; -LDDP5 TD; +LIDO1PAD2 TD; -PRD20 PO; +TPRSR/25 PO; -TPRSR25 PO
[2018-03-13 17:35] VITALS: TEMP 37; Ht 182.9 cm; Wt 101.3 kg
[2018-03-13] MEDS ORDERED: SODIUM CHLORIDE 0.9% 1000ML 1,000 ML IV STA ×2 (17:38→18:56)
[2018-03-13] MEDS ORDERED: ONDANSETRON INJ 2 MG/ML 2 ML VIAL IV STA (17:38)
[2018-03-13] MEDS ORDERED: OPTIRAY 320 IV PRN (18:00)
[2018-03-13 18:24] LABS: BASO % 0.2 %; BASO ABS # 0.02 K/uL (0-0.2); EOS % 0.5 %; EOS ABS # 0.05 K/uL (0-0.5); HEMATOCRIT 43.5 % (42-52); HEMOGLOBIN 14.1 g/dL (14.0-18.0); IG# 0.01 K/uL (0.00-0.02); LYMPH ABS # 1.09 K/uL (1.2-3.4); MEAN CELL VOLUME 89.5 fL (80-100); MEAN CORPUSCULAR HGB CONC 32.4 g/dl (32-36); MEAN PLATELET VOLUME 10.5 fL (7.4-10.4); MONO % 7.5 %; MONO ABS # 0.74 K/uL (0.11-0.59); NEUT % 80.7 %; NEUT ABS # 7.96 K/uL (1.4-6.5); PLATELET COUNT 207 K/uL (130-400); RED CELL DISTRIBUTION WIDTH CV 14.2 % (11.5-14.5); RED CELL DISTRIBUTION WIDTH SD 46.4 fL (36.4-46.3); WHITE BLOOD COUNT 9.87 K/uL (4.8-10.8)
[2018-03-13 18:44] LABS: ALBUMIN 3.2 gm/dl (3.4-5.0); ALKALINE PHOSPHATASE 112 U/L (45-117); ALT/SGPT 17 U/L (12-78); AST/SGOT 20 U/L (15-37); BLOOD UREA NITROGEN 21 mg/dl (7-18); CALCIUM 9.5 mg/dl (8.5-10.1); CARBON DIOXIDE 23 mmol/L (21-32); GLUCOSE 232 mg/dl (70-99); LIPASE 60 U/L (73-393); POTASSIUM 3.6 mmol/L (3.5-5.1); SODIUM 133 mmol/L (136-145); TOTAL PROTEIN 8.7 gm/dl (6.4-8.2)
--- NOTE | 2018-03-13 19:27 | DIAGNOSTIC IMAGING REPORT ---
CHEST ONE VIEW PORTABLE CLINICAL HISTORY: Difficult chest pain COMPARISON STUDY: November 07, 2017 FINDINGS: The heart is enlarged. There is a left subclavian dual-chamber central venous pacemaker. There are basilar airspace opacities with right lower lobe air bronchograms. The findings likely represent a basilar pneumonia. No significant pleural effusions are evident. There are old right-sided rib deformities.[ IMPRESSION: Basilar airspace opacity suspicious for a pneumonitis. Clinical and radiographic follow-up is recommended. Electronically signed by: Dillon Gaspar M.D. 03/13/2018 7:26 PM Dictated Date/Time: 03/13/2018 7:24 PM
--- NOTE | 2018-03-13 19:53 | DIAGNOSTIC IMAGING REPORT ---
CT SCAN OF THE ABDOMEN AND PELVIS WITHOUT CONTRAST CLINICAL HISTORY: Diffuse abdominal pain COMPARISON STUDY: November 07, 2017 TECHNIQUE: CT scan of the abdomen and pelvis was performed from the lung bases to the proximal femurs. Images are reviewed in the axial, sagittal, and coronal planes. IV contrast was not administered for this examination. A dose lowering technique was utilized adhering to the principles of ALARA. CT DOSE: 1050.21 mGy.cm FINDINGS: Lower chest: There are bibasilar bronchiectatic changes with associated peribronchial thickening and basilar atelectasis. Liver: The unenhanced liver is normal in size, contour, and attenuation. There is no intrahepatic biliary ductal dilatation. Gallbladder: Surgically absent Spleen: Normal in size and attenuation. Pancreas: Unremarkable. Adrenal glands: Unremarkable. Kidneys: There are bilateral nonobstructing renal calculi. There are persistent low density masses within the perirenal fat, similar to the preceding study. Bowel: There are no transition zones indicate bowel obstruction. There is colonic diverticulosis. There is no acute diverticulitis. The appendix appears normal. Peritoneum: There is no intraperitoneal free air or abdominal ascites. Vasculature: The abdominal aorta is normal in course and caliber. Adenopathy: There are multiple borderline enlarged aortocaval lymph nodes. Pelvic viscera: The prostate is enlarged. There is small fat-containing right inguinal hernia. Skeletal structures: No destructive osseous lesions are seen. IMPRESSION: 1. No evidence of bowel obstruction. No evidence of free air 2. Diverticulosis. No evidence of acute diverticulitis 3. Bilateral lower lobe bronchiectasis 4. Bilateral nephrolithiasis 5. Stable bilateral low density perirenal masses 6. Stable borderline enlarged para-aortic lymph nodes 7. Prostatomegaly 8. No evidence of acute appendicitis Electronically signed by: Dillon Gaspar M.D. 03/13/2018 7:52 PM Dictated Date/Time: 03/13/2018 7:47 PM
[2018-03-13] MEDS ORDERED: DOXYCYCLINE HYCLATE 100 MG CAP PO STA (20:57)
[2018-03-13] MEDS ORDERED: DOXY100C PO (20:59)
[2018-03-13] MEDS ORDERED: ONDA4TAB65 PO (20:59)
[2018-03-13 21:00] VITALS: BP 130/66; PULSE 89; O2SAT 95
[2018-03-13] MEDS ORDERED: ONDANSETRON HOME PACK 4MG OD TAB PO ONE (21:00)
--- NOTE | 2018-03-13 22:25 | EMERGENCY ROOM VISIT NOTE ---
History Report prepared by Maria Fernanda: Katt Edwards Under the Supervision of: Dr. Manuel Orosco D.O. First contact with patient: 17:31 Stated Complaint: VOMITING History of Present Illness The patient is a 72 year old male who presents to the Emergency Room with complaints of vomiting beginning yesterday around 2029. He reports that at 2029 last night he suddenly began shaking, had chills, diaphoresis, and then vomited. He states he also had some abdominal pain which which is periumbilical. He did take Tums but then he vomited again. 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 As per EMS, the patient believes he has heat stroke. He denies any chest pain or shortness of breath. No arm pain or jaw pain. Source of History: patient Onset: yesterday around 2029 Position: abdomen Quality: other (vomiting) Timing: other (sudden) Associated Symptoms: + chills, + diaphoresis, + nausea, + abdominal pain Review of Systems See HPI for pertinent positives & negatives. A total of 10 systems reviewed and were otherwise negative. Past Medical & Surgical Medical Problems: (1) Atrial fibrillation and flutter (2) Benign hypertension (3) Cerebrovascular disease (4) Chronic kidney disease stage 3 (5) Chronic obstructive lung disease (6) Coronary artery disease (7) Diabetes mellitus type 2 (8) GERD (gastroesophageal reflux disease) (9) Gout (10) History of - deep vein thrombosis (11) History of - pulmonary embolus (12) Hyperlipidemia (13) Ischemic cardiomyopathy Surgical Problems: (1) H/O toe surgery (2) History of tonsillectomy (3) S/P laparoscopic cholecystectomy Family History FH: cancer GRANDFATHER Social History Smoking Status: Former Smoker Alcohol Use: occasionally Drug Use: none Marital Status: Housing Status: lives with significant other Occupation Status: retired Current/Historical Medications Scheduled Allopurinol (Allopurinol), 300 MG PO HS Aspirin (Aspirin), 325 MG PO HS Doxycycline Hyclate (Vibramycin), 100 MG PO BID Insulin Glargine (Lantus), 30 UNITS SC HS Metoprolol Succinate (Metoprolol Succinate ER), 25 MG PO QAM Montelukast Sodium (Singulair), 10 MG PO QPM Ondansetron Hcl (Zofran), 4 MG PO TID Primidone (Mysoline), 500 MG PO HS Ranitidine (Zantac), 150 MG PO BID Rosuvastatin Calcium (Crestor), 40 MG PO HS Warfarin Sod (Jantoven), 2 MG PO 2XWK Warfarin Sod (Jantoven), 4 MG PO 5XWK Scheduled PRN Hydrocodone W/ Homatropine (Hycodan 5/1.5MG 5 Ml), 5 ML PO HS PRN for Cough Nitroglycerin (Nitrostat), 0.4 MG UT UD PRN for Chest Pain Oxycodone/Acetaminophen 5MG/325MG (Percocet 5MG/325MG), 1 TABLET PO Q6H PRN for Pain Miscellaneous Medications Insulin Aspart (Novolog) Allergies Coded Allergies: Onion (Verified Allergy, Intermediate, RASH, 03/13/18) Levofloxacin (Verified Allergy, Mild, other, 03/13/18) ' Albuterol (Verified Adverse Reaction, Mild, 0, 03/13/18) cough syncope Ipratropium (Verified Adverse Reaction, Mild, 0, 03/13/18) cough syncope Physical Exam Vital Signs Date Time Temp Pulse Resp B/P (MAP) Pulse Ox O2 Delivery O2 Flow Rate FiO2 03/13/18 21:00 89 18 130/66 95 Room Air 03/13/18 20:30 88 18 113/57 95 Room Air 03/13/18 19:15 68 18 133/72 03/13/18 18:19 95 18 114/52 97 Room Air 03/13/18 18:09 67 18 118/55 94 Room Air 03/13/18 17:54 69 03/13/18 17:35 37.0 73 18 98/57 Room Air Physical Exam GENERAL: Sitting up in bed, alert, well appearing, well nourished, no distress, non-toxic, disheveled, holding a bag of vomit, non toxic EYE EXAM: normal conjunctiva. OROPHARYNX: no exudate, no erythema, lips, buccal mucosa, and tongue normal and mucous membranes are moist NECK: supple, no nuchal rigidity, no adenopathy, non-tender LUNGS: Clear to auscultation. Normal chest wall mechanics. Wheezing bilaterally HEART: no murmurs, S1 normal and S2 normal ABDOMEN: abdomen soft, mild tenderness at the umbilicus, normo-active bowel sounds, no masses, no rebound or guarding. BACK: Back is symmetrical on inspection and there is no deformity, no midline tenderness, no CVA tenderness. SKIN: no rashes and no bruising UPPER EXTREMITIES: upper extremities are grossly normal. LOWER EXTREMITIES: No pitting edema. NEURO EXAM: Normal sensorium, cranial nerves II-XII grossly intact, normal speech, no gross weakness of arms, no gross weakness of legs. Medical Decision & Procedures ER Provider Diagnostic Interpretation: Radiology results as stated below per my review and the radiologist's interpretation: CHEST ONE VIEW PORTABLE CLINICAL HISTORY: Difficult chest pain COMPARISON STUDY: November 07, 2017 FINDINGS: The heart is enlarged. There is a left subclavian dual-chamber central venous pacemaker. There are basilar airspace opacities with right lower lobe air bronchograms. The findings likely represent a basilar pneumonia. No significant pleural effusions are evident. There are old right-sided rib deformities.[ IMPRESSION: Basilar airspace opacity suspicious for a pneumonitis. Clinical and radiographic follow-up is recommended. Electronically signed by: Dillon Gaspar M.D. 03/13/2018 7:[address] SCAN OF THE ABDOMEN AND PELVIS WITHOUT CONTRAST CLINICAL HISTORY: Diffuse abdominal pain COMPARISON STUDY: November 07, 2017 TECHNIQUE: CT scan of the abdomen and pelvis was performed from the lung bases to the proximal femurs. Images are reviewed in the axial, sagittal, and coronal planes. IV contrast was not administered for this examination. A dose lowering technique was utilized adhering to the principles of ALARA. CT DOSE: 1050.21 mGy.cm FINDINGS: Lower chest: There are bibasilar bronchiectatic changes with associated peribronchial thickening and basilar atelectasis. Liver: The unenhanced liver is normal in size, contour, and attenuation. There is no intrahepatic biliary ductal dilatation. Gallbladder: Surgically absent Spleen: Normal in size and attenuation. Pancreas: Unremarkable. Adrenal glands: Unremarkable. Kidneys: There are bilateral nonobstructing renal calculi. There are persistent low density masses within the perirenal fat, similar to the preceding study. Bowel: There are no transition zones indicate bowel obstruction. There is colonic diverticulosis. There is no acute diverticulitis. The appendix appears normal. Peritoneum: There is no intraperitoneal free air or abdominal ascites. Vasculature: The abdominal aorta is normal in course and caliber. Adenopathy: There are multiple borderline enlarged aortocaval lymph nodes. Pelvic viscera: The prostate is enlarged. There is small fat-containing right inguinal hernia. Skeletal structures: No destructive osseous lesions are seen. IMPRESSION: 1. No evidence of bowel obstruction. No evidence of free air 2. Diverticulosis. No evidence of acute diverticulitis 3. Bilateral lower lobe bronchiectasis 4. Bilateral nephrolithiasis 5. Stable bilateral low density perirenal masses 6. Stable borderline enlarged para-aortic lymph nodes 7. Prostatomegaly 8. No evidence of acute appendicitis Electronically signed by: Dillon Gaspar M.D. 03/13/2018 7:52 PM Laboratory Results 03/13/18 17:55 Red Blood Count 4.86, Mean Corpuscular Volume 89.5, Mean Corpuscular Hemoglobin 29.0, Mean Corpuscular Hemoglobin Concent 32.4, Mean Platelet Volume 10.5, Neutrophils (%) (Auto) 80.7, Lymphocytes (%) (Auto) 11.0, Monocytes (%) (Auto) 7.5, Eosinophils (%) (Auto) 0.5, Basophils (%) (Auto) 0.2, Neutrophils # (Auto) 7.96, Lymphocytes # (Auto) 1.09, Monocytes # (Auto) 0.74, Eosinophils # (Auto) 0.05, Basophils # (Auto) 0.02 03/13/18 17:55 Test 03/13/18 17:45 03/13/18 17:55 03/13/18 19:10 Bedside Glucose 223 mg/dl (70-99) White Blood Count 9.87 K/uL (4.8-10.8) Red Blood Count 4.86 M/uL (4.7-6.1) Hemoglobin 14.1 g/dL (14.0-18.0) Hematocrit 43.5 % (42-52) Mean Corpuscular Volume 89.5 fL (80-100) Mean Corpuscular Hemoglobin 29.0 pg (25-34) Mean Corpuscular Hemoglobin Concent 32.4 g/dl (32-36) Platelet Count 207 K/uL (130-400) Mean Platelet Volume 10.5 fL (7.4-10.4) Neutrophils (%) (Auto) 80.7 % Lymphocytes (%) (Auto) 11.0 % Monocytes (%) (Auto) 7.5 % Eosinophils (%) (Auto) 0.5 % Basophils (%) (Auto) 0.2 % Neutrophils # (Auto) 7.96 K/uL (1.4-6.5) Lymphocytes # (Auto) 1.09 K/uL (1.2-3.4) Monocytes # (Auto) 0.74 K/uL (0.11-0.59) Eosinophils # (Auto) 0.05 K/uL (0-0.5) Basophils # (Auto) 0.02 K/uL (0-0.2) RDW Standard Deviation 46.4 fL (36.4-46.3) RDW Coefficient of Variation 14.2 % (11.5-14.5) Immature Granulocyte % (Auto) 0.1 % Immature Granulocyte # (Auto) 0.01 K/uL (0.00-0.02) Anion Gap 14.0 mmol/L (3-11) Est Creatinine Clear Calc Drug Dose 44.6 ml/min Estimated GFR () 40.5 Estimated GFR (Non- 34.9 BUN/Creatinine Ratio 10.9 (10-20) Calcium Level 9.5 mg/dl (8.5-10.1) Total Bilirubin 0.8 mg/dl (0.2-1) Direct Bilirubin mg/dl (0-0.2) Aspartate Amino Transf (AST/SGOT) 20 U/L (15-37) Alanine Aminotransferase (ALT/SGPT) 17 U/L (12-78) Alkaline Phosphatase 112 U/L (45-117) Troponin I < 0.015 ng/ml (0-0.045) Total Protein 8.7 gm/dl (6.4-8.2) Albumin 3.2 gm/dl (3.4-5.0) Lipase 60 U/L (73-393) Chemistry Specimen Hemolysis Urine Color YELLOW Urine Appearance CLEAR (CLEAR) Urine pH 7.0 (4.5-7.5) Urine Specific [place] 1.021 (1.000-1.030) Urine Protein 2+ (NEG) Urine Glucose (UA) 3+ (NEG) Urine Ketones TRACE (NEG) Urine Occult Blood 1+ (NEG) Urine Nitrite NEG (NEG) Urine Bilirubin NEG (NEG) Urine Urobilinogen NEG (NEG) Urine Leukocyte Esterase NEG (NEG) Urine WBC (Auto) 1-5 /hpf (0-5) Urine RBC (Auto) 0-4 /hpf (0-4) Urine Hyaline Casts (Auto) 5-10 /lpf (0-5) Urine Epithelial Cells (Auto) >30 /lpf (0-5) Urine Bacteria (Auto) NEG (NEG) Urine Renal Epithelial Cells 0-5 /lpf (0-5) Laboratory results per my review. Medications Administered Medications (Trade) Dose Ordered Sig/Kendrick Route Start Time Stop Time Status Last Admin Dose Admin Sodium Chloride 1,000 ml @ 999 mls/hr Q1H1M STAT IV 03/13/18 17:38 03/13/18 18:38 DC 03/13/18 17:38 999 MLS/HR Ondansetron HCl (Zofran Inj) 4 mg NOW STAT IV 03/13/18 17:38 03/13/18 17:41 DC 03/13/18 17:59 4 MG Sodium Chloride 1,000 ml @ 999 mls/hr Q1H1M STAT IV 03/13/18 18:56 03/13/18 19:56 DC 03/13/18 19:06 999 MLS/HR Doxycycline Hyclate (Vibramycin Cap) 100 mg NOW STAT PO 03/13/18 20:57 03/13/18 20:58 DC 03/13/18 21:09 100 MG Ondansetron HCl (ZOFRAN ODT 4MG Home Pack) 1 homepack UD ONCE PO 03/13/18 21:00 03/13/18 21:01 DC 03/13/18 21:00 1 HOMEPACK ECG Per My Interpretation Indication: vomiting Rate (beats per minute): 71 Rhythm: sinus rhythm (with an intermittent paced rhythm) Findings: PVC, Q waves (Inferior), other (T wave flattening of the lateral leads) Comparison ECG Date: 11/09/17 Change: With the exception of the intermittent paced rhythm, no significant change ED Course ED COURSE: Vital signs were reviewed and showed hypotension situationall The patients medical record was reviewed The above diagnostic studies were performed and reviewed. ED treatments and interventions as stated above. 1732: The patient was evaluated in room A3. A complete history and physical examination was performed. 1738: Ordered Zofran Inj 4 mg IV, Sodium Chloride 1000 ml @ 999 mls/hr IV, Sodium Chloride 1000 ml @ 999 mls/hr IV 1855: Ordered Sodium Chloride 1000 ml @ 999 mls/hr IV 2056: Vibramycin Cap 100 mg PO 2058: Upon reevaluation, the patient denies any cough, new SOB, or any chagnes in sputum. I discussed my findings with the patient and he understands and agrees with the treatment plan. Based on the patients age, coexisting illnesses, exam and lab findings the decision to treat as an outpatient was made. The patient remained stable while under my care. The patient appeared well at the time of discharge. Medical Decision Differential diagnoses includes but is not limited to gastritis, peptic ulcer disease, GERD, gallbladder disease, pancreatitis, small bowel obstruction, acute coronary syndrome, pericarditis, ischemic bowel, irritable bowel disease, irritable bowel syndrome, appendicitis, diverticulitis, malignancy, hernia, urinary tract infection, torsion, [/ectopic (if female)], perforation, trauma, infectious. Patient is a 72-year-old male presents to ER for shivering and vomiting started last night. This is continued through today. Is located around the periumbilical region. CBC along with BMP shows a creatinine of 1.8. Baseline appears to be 1.1-1.3. LFTs, bilirubin and troponin was negative. Lipase is negative. EKG was unchanged from previous. Did not repeat a troponin as I did not feel this is cardiac and symptoms started last night. UA was negative. Patient did have wheezing on chest exam. Chest x-ray did suggest pneumonitis although CT which did catch the lower lung lewis notes that this is likely atelectasis. I once again as the patient and he denies any new cough, change in sputum or shortness of breath. Did elect to place him on doxycycline to be on the safe side with his history of COPD. Patient was given Zofran. He was tolerating liquids here after he received 2 L normal saline and Zofran. Offered observation but patient declined. Patient was not declined. Patient was not hypoxic. Systolic blood pressure stable. Had care managers discussed with him to try to set up additional follow-up. Patient declined. Did recommend repeat BMP within 48 hours. Discussed with Pt concerning signs and symptoms to watch out for. Pt was instructed to follow up with their PCP and discussed with the patient their option to return to the ED at anytime for persistent or worsening symptoms. The appropriate anticipatory guidance and out- patient management, including indications for return to the emergency department , were explained at length to the patient and understood. Medication Reconcilliation Current Medication List: was personally reviewed by me Blood Pressure Screening Patient's blood pressure: Low blood pressure Low blood pressure felt to be situational Impression Primary Impression: Nausea and vomiting Additional Impressions: Pneumonia MARY (acute kidney injury) Scribe Attestation The scribe's documentation has been prepared under my direction and personally reviewed by me in its entirety. I confirm that the note above accurately reflects all work, treatment, procedures, and medical decision making performed by me. Departure Information Dispostion Home / Self-Care Prescriptions Ondansetron Hcl (ZOFRAN) 4 Mg Tab 4 MG PO TID for Nausea, #30 TAB Prov: Manule Orosco, DO 03/13/18 Doxycycline Hyclate (VIBRAMYCIN) 100 Mg Cap 100 MG PO BID for 10 Days, CAP Prov: Manuel Orosco, DO 03/13/18 Referrals Ron Mortensen D.OCatina (PCP) Forms HOME CARE DOCUMENTATION FORM, IMPORTANT VISIT INFORMATION Additional Instructions Please follow up with your primary care doctor with in the next 24 hours. Any worsening of your symptoms, please return to the ED immediately. This includes any fevers greater than 100.4, worsening pain, chest pain, shortness breath, persistent nausea, vomiting, unable to eat or drink, or any other concerning signs or symptoms from your standpoint. Please take your antibiotics as prescribed. Please take Zofran as prescribed for nausea vomiting. You must have your renal function rechecked within 2 days as it is elevated. Problem Qualifiers Primary Impression: Nausea and vomiting Vomiting type: unspecified Vomiting Intractability: non-intractable Qualified Codes: R11.2 - Nausea with vomiting, unspecified Additional Impressions: Pneumonia Pneumonia type: due to unspecified organism Laterality: unspecified laterality Lung location: unspecified part of lung Qualified Codes: J18.9 - Pneumonia, unspecified organism
== END 2018-03-13 21:15 | disposition home or self-care (01) ==
LOC: EDBD 17:30 → C.EDA 17:31
DX: R11.2 Nausea with vomiting, unspecified (principal); J18.9 Pneumonia, unspecified organism; N17.9 Acute kidney failure, unspecified; I48.91 Unspecified atrial fibrillation; I12.9 Hypertensive chronic kidney disease with stage 1 through stage 4 chronic kidney disease, or unspecified chronic kidney disease; N18.3 Chronic kidney disease, stage 3 (moderate); I67.9 Cerebrovascular disease, unspecified; I25.10 Atherosclerotic heart disease of native coronary artery without angina pectoris; J44.9 Chronic obstructive pulmonary disease, unspecified; K21.9 Gastro-esophageal reflux disease without esophagitis; E11.9 Type 2 diabetes mellitus without complications; Z86.718 Personal history of other venous thrombosis and embolism; Z86.711 Personal history of pulmonary embolism; E78.5 Hyperlipidemia, unspecified; I25.5 Ischemic cardiomyopathy; Z87.891 Personal history of nicotine dependence; Z79.82 Long term (current) use of aspirin; Z79.01 Long term (current) use of anticoagulants; Z79.899 Other long term (current) drug therapy; Z88.1 Allergy status to other antibiotic agents; Z88.8 Allergy status to other drugs, medicaments and biological substances; Z91.018 Allergy to other foods

== ENCOUNTER 2019-07-22 16:09 | Inpatient (IN) ==
[2019-07-22] MEDS ORDERED: ONDANSETRON INJ 2 MG/ML 2 ML VIAL IV STA (16:20)
[2019-07-22 16:58] LABS: Basophils # (auto) 0.02 K/uL (0-0.2); Basophils % (auto) 0.2 %; Eosinophils # (auto) 0.09 K/uL (0-0.5); Eosinophils % (auto) 0.9 %; Hematocrit (blood only) 46.2 % (42-52); Hemoglobin 14.2 g/dL (14.0-18.0); Immature Granulocytes # (auto) 0.01 K/uL (0.00-0.02); Immature Granulocytes % (auto) 0.1 %; Lymphocytes # (auto) 0.73 K/uL (1.2-3.4); Lymphocytes % (auto) 7.4 %; Mean Corpuscular Hemoglobin 31.1 pg (25-34); Mean Corpuscular Hgb Conc 30.7 g/dL (32-36); Mean Corpuscular Volume 101.1 fL (80-100); Mean Platelet Volume 10.2 fL (7.4-10.4); Monocytes # (auto) 0.75 K/uL (0.11-0.59); Monocytes % (auto) 7.6 %; Neutrophils # (auto) 8.24 K/uL (1.4-6.5); Neutrophils % (auto) 83.8 %; Platelet Count 148 K/uL (130-400); RDW Coefficient of Variation 15.4 % (11.5-14.5); RDW Standard Deviation 57.3 fL (36.4-46.3); Red Blood Count 4.57 M/uL (4.7-6.1); White Blood Count 9.84 K/uL (4.8-10.8)
[2019-07-22 17:08] LABS: INR 1.7 (0.9-1.1); Partial Thromboplastin Ratio 1.2; Partial Thromboplastin Time 33.3 Seconds (21.0-31.0); Prothrombin Time 16.9 Seconds (9.0-12.0)
[2019-07-22 17:17] LABS: Alanine Aminotransferase 14 U/L (12-78); Albumin Level 3.3 gm/dl (3.4-5.0); Aspartate Aminotransferase 17 U/L (15-37); BUN Creatinine Ratio 9.2 (10-20); Bilirubin Direct < 0.1 mg/dl (0-0.2); Blood Urea Nitrogen 13 mg/dl (7-18); Calcium 9.4 mg/dl (8.5-10.1); Carbon Dioxide 32 mmol/L (21-32); Chloride 100 mmol/L (98-107); Creatinine Clr Calc Pharmacy 64.2 ml/min; Est GFR (African American) 55.8; Est GFR (Non-African American) 48.2; Glucose 114 mg/dl (70-99); Lipase 41 U/L (73-393); Magnesium 1.8 mg/dl (1.8-2.4); Potassium 4.8 mmol/L (3.5-5.1); Sodium 137 mmol/L (136-145)
[2019-07-22 17:19] LABS: Alkaline Phosphatase 135 U/L (45-117); Bilirubin,Total 0.5 mg/dl (0.2-1); Total Protein 8.5 gm/dl (6.4-8.2)
[2019-07-22] MEDS ORDERED: OPTIRAY 300 IV PRN (17:53)
[2019-07-22] MEDS ORDERED: IOVERSOL 100ml IV PRN (18:04)
--- NOTE | 2019-07-22 19:11 | CT Scan Report ---
CT abd pelvis IV con only CLINICAL HISTORY: 74 years-old Male presenting with llq pain. TECHNIQUE: Multidetector CT of the abdomen and pelvis was performed after the administration of intra venous contrast. IV contrast: 95 mL of Optiray 320. One or more dose lowering techniques were used co nsistent with the principles of ALARA (as low as reasonably achievable), including automatic exposure control, mA or kV adjustment to individual patient size, and/or use of iterative reconstruction. COMPARISON: 08/10/2018. CT DOSE (mGy.cm): The estimated cumulative dose is 1477.69 mGy.cm. FINDINGS: Manager Internet topogram: Pacer leads to the right atrium and right ventricular apex. Left pleural effusion. Ch olecystectomy clips. Lung bases: Normal heart size. Coronary artery and aortic valve calcification. Pacer leads in the rig ht atrial appendage and right ventricular apex. Calcification within the papillary musculature may be present. Moderate to large right and small left pleural effusions. The pleural effusion on the left appears loculated within the major fissure. The right pleural effusion is grossly simple appearing. T hese have significantly increased in size from prior. Extensive peribronchovascular consolidation wit h bronchiectasis in the lower lobes, left greater than right. These changes are in large part chronic . Liver: Hypertrophy of the left hepatic lobe with mild macro nodularity suggests underlying liver fibr osis/cirrhosis. No focal lesion allowing for this single phase of contrast. Patent hepatic vasculatur e. Biliary: Mild biliary ductal prominence likely a reservoir effect in the post cholecystectomy state. Gallbladder surgically absent. Pancreas: Moderate parenchymal atrophy. Spleen: Normal. Adrenal glands: Normal. Kidneys and ureters: Nonobstructing 9 mm calculus at the lower pole of the right kidney. Several smal ler nonobstructing calculi in the left kidney. Mild left pelvocaliectasis and distention of the proxi mal left ureter to the level of an obstructing 6 mm proximal left ureteral calculus. Mild up stream. Ureteral fat stranding as well as asymmetric left perinephric fat stranding. There is also small amou nt of perinephric and pararenal fluid. Mild delayed perfusion of the left kidney comparison to the ri ght. No right hydronephrosis. The right ureters nondistended. Bladder: Circumferential bladder wall thickening. No bladder calculus. Pelvic organs: Prostate enlargement likely secondary to benign prostatic hyperplasia. Bowel: Mild diverticulosis of the proximal sigmoid and distal descending colon without wall thickenin g or pericolonic inflammatory change. The appendix is normal. No bowel obstruction. Peritoneal cavity: No free fluid or intraperitoneal gas. Lymph nodes: No enlarged lymph nodes in the abdomen or pelvis. Vasculature: Atherosclerosis of the normal caliber abdominal aorta. IVC patent. Abdominal wall: Small fat-containing right inguinal hernia. Small fat-containing umbilical hernia. No dular infiltration of the subcutaneous fat of the right anterior abdominal wall likely from medicatio n administration. Musculoskeletal: Degenerative changes of the spine. IMPRESSION: 1. Obstructing 6 mm proximal left ureteral calculus with resultant mild left hydroureteronephrosis. Mild left perinephric and pararenal fluid is nonspecific though calyceal rupture cannot be excluded. 2. Bilateral nonobstructing nephrolithiasis. 3. Prostatomegaly with chronic bladder outlet obstruction. 4. 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 5. Moderate to large right simple appearing pleural effusion. 6. Small loculated left pleural effusion. ACT 112: Negative or not required by law. Electronically signed by: Manuel Bryant M.D. 07/22/2019 7:09 PM
[2019-07-22] MEDS ORDERED: cefTRIAXone SODIUM 1,000 MG/50 ML BAG IV STA (20:26)
[2019-07-22 20:35] LABS: Appearance Urine Clear (Clear); Bacteria Urine Automated Negative (Negative); Bilirubin Urine Negative (Negative); Blood Urine 2+ (Negative); Cast Urine Automated 0 /lpf (0-5); Color Urine Yellow; Epithelial Cell Urine Auto >30 /lpf (0-5); Glucose Urine UA Negative (Negative); Ketones Urine Negative (Negative); Leukocyte Esterase Urine Negative (Negative); Nitrite Urine Negative (Negative); Specific Gravity Urine 1.029 (1.000-1.030); Urobilinogen Urine Negative (Negative); pH Urine 8.5 (4.5-7.5)
[2019-07-22 20:37] LABS: Protein Urine 1+ (Negative)
[2019-07-22 20:38] LABS: Sulfosalicylic Acid Urine Positive (Negative)
--- NOTE | 2019-07-22 21:28 | History & Physical Report ---
Date of Service July 22, 2019 Assessment & Plan (1) CHF (congestive heart failure): Subacute Pulmonary congestion on CXR with S OB/wheezing symptoms chronic systolic heart failure secondary to ischemic cardiomyopathy (EF 45-49%, TTE 2019) chronic respiratory failure secondary to COPD on home O2, oxygenation at baseline Chronic wheezing as per patient Patient averse to MDI/neb treatment for wheezing with hx of choking side effects attributed to medications. Complicated UTI, possible pyelonephritis left Secondary to obstructive uropathy Patient not septic for now. hx CAD/CVA as per records SSS sp PPM PE on coumadin INR slightly subtherapeutic hypertension, stable CRI, creatinine at baseline DM2 insulin requiring, well-controlled as of recent hemoglobin A1c of 7.17 May 2019 CRI, creatinine at baseline PCU Lasix albumin 1 dose Strict I/Os, daily weights, CHF education Cardiology consult RE CHF Urology consult Re: Obstructive uropathy left (ER provider already in touch with Dr. Vasques who recommended IV ceftriaxone, possible surgery in a.m. ) Hold Coumadin for now given anticipated procedure in a.m. IV heparin while INR subtherapeutic while Coumadin on hold if Urology OK. (hx recurrent PE/DVT as per patient) Basal insulin, ISS BG goal [id number], carb count coverage DVT prophylaxis. IV heparin while INR subtherapeutic if Urology okay, SCDs interim Full code History of Present Illness Primary Care Provider: Ron Mortensen, History obtained from patient and records. Medical history significant for chronic respiratory failure secondary to COPD on home O2, past tobacco abuse, chronic systolic heart failure secondary to ischemic cardiomyopathy (EF 45-49%, TTE 2019), hx CAD/CVA as per records, SSS sp PPM/PE on coumadin, hypertension, DM2 insulin requiring, history of MGUS, CRI (baseline creatinine 1.3-1.4). History urolithiasis. Recent confinement March for aspiration pneumonitis. 1 day history of upper left-sided achy abdominal pain going to the back with nausea, without emesis. No fever, no chills, no hematuria. No chest pain. Usual dry cough symptoms. Usual S OB, leg swelling, wheezing symptoms. At the ER, patient received IV Ceftriaxone for complicated UTI. MEDICAL HISTORY: As above. SURGERIES: PPM, mediastinal/thoracic procedures for pericardial effusion, tonsillectomy, toe amputation, cholecystectomy, urologic procedure FAMILY HISTORY: Heart disease, hypertension and diabetes. PERSONAL AND SOCIAL HISTORY: Past tobacco abuse. No chronic intake of alcoholic beverages. Ret[employer] employee. Allergies Allergy/AdvReac Type Severity Reaction Status Date / Time albuterol Allergy Severe CHOKING Verified 07/22/19 17:24 SENSATION ipratropium Allergy Severe CHOKING Verified 07/22/19 17:24 SENSATION onion Allergy Intermediate RASH Verified 07/22/19 17:24 levofloxacin Allergy Mild other Verified 07/22/19 17:24 atorvastatin AdvReac Intermediate Muscle Pain Verified 07/22/19 17:24 metformin AdvReac Intermediate Diarrhea Verified 07/22/19 17:24 Home Medications Home Medications Medication Instructions Recorded Confirmed Type Lantus Solostar U-100 Insulin 26 unit SUBCUT HS 04/11/18 07/22/19 History Novolog PenFill U-100 Insulin 1 sliding scale dose SUBCUT 04/11/18 07/22/19 History allopurinol 300 mg PO DAILY 04/11/18 07/22/19 History aspirin 325 mg PO QPM 04/11/18 07/22/19 History ferrous sulfate 325 mg PO Q2D 04/11/18 07/22/19 History furosemide 40 mg PO DAILY 04/11/18 07/22/19 History metoprolol succinate 12.5 mg PO DAILY 04/11/18 07/22/19 History montelukast 10 mg PO PM 04/11/18 07/22/19 History nitroglycerin 0.4 mg SUBLINGUAL UD 04/11/18 07/22/19 History primidone 500 mg PO HS 04/11/18 07/22/19 History ranitidine HCl 150 mg PO BID 04/11/18 07/22/19 History rosuvastatin 40 mg PO HS 04/11/18 07/22/19 History ondansetron HCl [Zofran] 4 mg PO Q6 PRN #6 tab 08/10/18 07/22/19 Rx bisacodyl 10 mg [place] DAILY PRN 10/14/18 07/22/19 History docusate sodium [Colace] 100 mg PO BID PRN 10/14/18 07/22/19 History warfarin [Jantoven] 4 mg PO MOWEFR 10/14/18 07/22/19 History warfarin 6 mg PO SUTUTHSA 01/10/19 07/22/19 History Past Med/Surg History Medical History Cerebrovascular disease (Chronic Unknown) "history of right caudate stroke Chronic kidney disease stage 3 (Chronic Unknown) Chronic left ventricular systolic heart failure (Chronic) COPD (chronic obstructive pulmonary disease) (Chronic) Coronary artery disease (Chronic Unknown) "S/P inferior [place], severe multivessel disease not amenable to intervention" GERD (gastroesophageal reflux disease) (Chronic) Gout (Chronic) 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 Quit in 1971 ; Smoking End Date: 1971 ; Second Hand Exposure: No ; Hx Alcohol Use: No Hx Substance Use: No Review of Systems Review of Systems: As per HPI, all 10 systems reviewed, all other ROS negative Physical Exam Physical Exam: GENERAL: uncomfortable, slightly anxious, intermittent respiratory distress, audible expiratory wheezing, obese SKIN: Pallor , warm HEENT: Pale palpebral conjunctivae, partial alopecia, no ptosis, dry buccal muc gonzalez, nasal cannula in place NECK : Supple, short neck, no tenderness CHEST : Decreased breath sounds, diffuse expiratory wheezes, no tenderness HEART : RRR, no obvious murmurs ABDOMEN: Some distention, nontender BACK : Left flank tenderness EXTREMITIES : Bilateral LE swelling, no LE tenderness, no other conspicuous deformities noted NEUROLOGIC : Coherent, no facial asymmetry, no other gross focality Results & Data Vital Signs (Past 12 Hours) Vital Signs Temp Pulse Pulse Resp BP BP Pulse Ox 07/22/19 21:05 84 16 149/74 H 99 07/22/19 20:07 84 18 144/71 H 96 07/22/19 17:52 84 18 150/73 H 98 07/22/19 16:59 36.8 C 07/22/19 16:19 80 18 156/79 H 96 Laboratory Results Laboratory Results WBC 9.84 K/uL (4.8-10.8) 07/22/19 16:45 RBC 4.57 M/uL (4.7-6.1) L 07/22/19 16:45 Hgb 14.2 g/dL (14.0-18.0) 07/22/19 16:45 Hct 46.2 % (42-52) 07/22/19 16:45 MCV 101.1 fL (80-100) H 07/22/19 16:45 MCH 31.1 pg (25-34) 07/22/19 16:45 MCHC 30.7 g/dL (32-36) L 07/22/19 16:45 RDW Std Deviation 57.3 fL (36.4-46.3) H 07/22/19 16:45 RDW Coeff of Lizet 15.4 % (11.5-14.5) H 07/22/19 16:45 Plt Count 148 K/uL (130-400) 07/22/19 16:45 MPV 10.2 fL (7.4-10.4) 07/22/19 16:45 Immature Gran % (Auto) 0.1 % 07/22/19 16:45 Neut % (Auto) 83.8 % 07/22/19 16:45 Lymph % (Auto) 7.4 % 07/22/19 16:45 [place] % (Auto) 7.6 % 07/22/19 16:45 Eos % (Auto) 0.9 % 07/22/19 16:45 Baso % (Auto) 0.2 % 07/22/19 16:45 Immature Gran # (Auto) 0.01 K/uL (0.00-0.02) 07/22/19 16:45 Neut # (Auto) 8.24 K/uL (1.4-6.5) H 07/22/19 16:45 Lymph # (Auto) 0.73 K/uL (1.2-3.4) L 07/22/19 16:45 [place] # (Auto) 0.75 K/uL (0.11-0.59) H 07/22/19 16:45 Eos # (Auto) 0.09 K/uL (0-0.5) 07/22/19 16:45 Baso # (Auto) 0.02 K/uL (0-0.2) 07/22/19 16:45 PT 16.9 Seconds (9.0-12.0) H 07/22/19 16:45 INR 1.7 (0.9-1.1) H 07/22/19 16:45 APTT 33.3 Seconds (21.0-31.0) H 07/22/19 16:45 PTT Ratio 1.2 07/22/19 16:45 Sodium 137 mmol/L (136-145) 07/22/19 16:45 Potassium 4.8 mmol/L (3.5-5.1) 07/22/19 16:45 Chloride 100 mmol/L (98-107) 07/22/19 16:45 Carbon Dioxide 32 mmol/L (21-32) 07/22/19 16:45 Anion Gap 5.0 (3-11) 07/22/19 16:45 BUN 13 mg/dl (7-18) 07/22/19 16:45 Creatinine 1.44 mg/dl (0.6-1.4) H 07/22/19 16:45 Est Cr Clr Drug Dosing 64.2 ml/min 07/22/19 16:45 Est GFR ( Amer) 55.8 07/22/19 16:45 Est GFR (Non-Af Amer) 48.2 07/22/19 16:45 BUN/Creatinine Ratio 9.2 (10-20) L 07/22/19 16:45 Glucose 114 mg/dl (70-99) H 07/22/19 16:45 Calcium 9.4 mg/dl (8.5-10.1) 07/22/19 16:45 Magnesium 1.8 mg/dl (1.8-2.4) 07/22/19 16:45 Total Bilirubin 0.5 mg/dl (0.2-1) 07/22/19 16:45 Direct Bilirubin < 0.1 mg/dl (0-0.2) 07/22/19 16:45 AST 17 U/L (15-37) 07/22/19 16:45 ALT 14 U/L (12-78) 07/22/19 16:45 Alkaline Phosphatase 135 U/L (45-117) H 07/22/19 16:45 Total Protein 8.5 gm/dl (6.4-8.2) H 07/22/19 16:45 Albumin 3.3 gm/dl (3.4-5.0) L 07/22/19 16:45 Lipase 41 U/L (73-393) L 07/22/19 16:45 Urine Color Yellow 07/22/19 19:40 Urine Appearance Clear (Clear) 07/22/19 19:40 Urine pH 8.5 (4.5-7.5) H 07/22/19 19:40 Ur Specific [place] 1.029 (1.000-1.030) 07/22/19 19:40 Urine Protein 1+ (Negative) H 07/22/19 19:40 Urine Glucose (UA) Negative (Negative) 07/22/19 19:40 Urine Ketones Negative (Negative) 07/22/19 19:40 Urine Blood 2+ (Negative) H 07/22/19 19:40 Urine Nitrite Negative (Negative) 07/22/19 19:40 Urine Bilirubin Negative (Negative) 07/22/19 19:40 Urine Urobilinogen Negative (Negative) 07/22/19 19:40 Ur Leukocyte Esterase Negative (Negative) 07/22/19 19:40 Urine WBC (Auto) 1-5 /hpf (0-5) 07/22/19 19:40 Urine RBC (Auto) 10-30 /hpf (0-4) H 07/22/19 19:40 U Hyaline Cast (Auto) 0 /lpf (0-5) 07/22/19 19:40 U Epithel Cells (Auto) >30 /lpf (0-5) H 07/22/19 19:40 Urine Bacteria (Auto) Negative (Negative) 07/22/19 19:40 Ur Renal Epithelial Cell Not Reportable 07/22/19 19:[address] abdomen pelvis: 1. Obstructing 6 mm proximal left ureteral calculus with resultant mild left hydroureteronephrosis. Mild left perinephric and pararenal fluid is nonspecific though calyceal rupture cannot be excluded. 2. Bilateral nonobstructing nephrolithiasis. 3. Prostatomegaly with chronic bladder outlet obstruction. 4. Bibasilar bronchiectasis with chronic peribronchovascular consolidation, likely cicatrizing atelectasis. 5. Moderate to large right simple appearing pleural effusion. 6. Small loculated left pleural effusion. Chest x-ray : 1. Cardiomegaly with volume overload and congestive change. 2. Suspected mild basilar predominant pulmonary edema versus atelectasis. Aspiration could also be considered but is less favored. 3. Small right and trace left pleural effusions. EKG as per my interpretation : Rate 75, NSR, normal axis, T wave flattening inferior leads
--- NOTE | 2019-07-22 21:49 | XRay Report ---
XR chest 1V portable CLINICAL HISTORY: 74 years-old Male presenting with wheezing. TECHNIQUE: Portable upright AP view of the chest was obtained. COMPARISON: . FINDINGS: Left subclavian pacer with leads to the right atrium and right ventricular apex. Atherosclerosis of t he aortic arch. Cardiac silhouette enlarged. Pulmonary vascular prominence. Interstitial prominence. Bibasilar opacities with small right and trace left pleural effusion suspected. No pneumothorax. Dege nerative changes of the thoracic spine. Upper abdomen normal. IMPRESSION: 1. Cardiomegaly with volume overload and congestive change. 2. Suspected mild basilar predominant pulmonary edema versus atelectasis. Aspiration could also be c onsidered but is less favored. 3. Small right and trace left pleural effusions. ACT 112: Negative or not required by law. Electronically signed by: Manuel Bryant M.D. 07/22/2019 9:47 PM
[2019-07-22] MEDS ORDERED: PROMETHAZINE HCL 12.5 MG in SODIUM CHLORIDE 0.9% 50 ML IV STA (21:51)
--- NOTE | 2019-07-22 21:52 | Emergency Department Note ---
Entered by Mahogany Mcghee acting as a scribe for Farzad Chin History of Present Illness General Chief complaint: Abdominal Pain Stated complaint: AB PAIN, NAUSEA Time Seen by Provider: 07/22/19 16:15 Source: patient Mode of arrival: EMS History of Present Illness Onset (ago): hour(s) 8 Location: abdomen and left Pain Consistency: + constant Quality: + sharp Associated symptoms: + denies other symptoms (denies urniary symptoms and blood in stool), + nausea/vomiting (negative vomiting) and + other (abdominal pain); no chest pain, no fever/chills and no shortness of breath Treatments prior to arrival: none The patient is a 74 year old male who presents to the Emergency Room with complaints of abdominal pain that began this morning around 07:00, about 8 hours ago. The patient reports that his pain is located in the left lower quadrant. He denies eating anything unusual last night and notes that he was able to eat a peanut butter sandwich around noon. He denies vomiting, but states that he has felt very nauseas. The patient is not a current smoker and denies recent drinking. He denies chest pain, sob, urinary symptoms, blood in stool, vomiting, and fever. He notes that he has a history of COPD, diabetes, CHF, and abdominal surgery. The patient is on Coumadin. Home Medications Home Medications Medication Instructions Recorded Confirmed Type Lantus Solostar U-100 Insulin 26 unit SUBCUT HS 04/11/18 07/22/19 History Novolog PenFill U-100 Insulin 1 sliding scale dose SUBCUT AC 04/11/18 07/22/19 History allopurinol 300 mg PO DAILY 04/11/18 07/22/19 History aspirin 325 mg PO QPM 04/11/18 07/22/19 History ferrous sulfate 325 mg PO Q2D 04/11/18 07/22/19 History furosemide 40 mg PO DAILY 04/11/18 07/22/19 History metoprolol succinate 12.5 mg PO DAILY 04/11/18 07/22/19 History montelukast 10 mg PO PM 04/11/18 07/22/19 History nitroglycerin 0.4 mg SUBLINGUAL UD 04/11/18 07/22/19 History primidone 500 mg PO HS 04/11/18 07/22/19 History ranitidine HCl 150 mg PO BID 04/11/18 07/22/19 History rosuvastatin 40 mg PO HS 04/11/18 07/22/19 History ondansetron HCl [Zofran] 4 mg PO Q6 PRN #6 tab 08/10/18 07/22/19 Rx bisacodyl 10 mg NH DAILY PRN 10/14/18 07/22/19 History docusate sodium [Colace] 100 mg PO BID PRN 10/14/18 07/22/19 History warfarin [Jantoven] 4 mg PO MOWEFR 10/14/18 07/22/19 History warfarin 6 mg PO SUTUTHSA 01/10/19 07/22/19 History Allergies Allergy/AdvReac Type Severity Reaction Status Date / Time albuterol Allergy Severe CHOKING Verified 07/22/19 17:24 SENSATION ipratropium Allergy Severe CHOKING Verified 07/22/19 17:24 SENSATION onion Allergy Intermediate RASH Verified 07/22/19 17:24 levofloxacin Allergy Mild other Verified 07/22/19 17:24 atorvastatin AdvReac Intermediate Muscle Pain Verified 07/22/19 17:24 metformin AdvReac Intermediate Diarrhea Verified 07/22/19 17:24 Past Med/Surg History Medical History Cerebrovascular disease (Chronic Unknown) "history of right caudate stroke Chronic kidney disease stage 3 (Chronic Unknown) Chronic left ventricular systolic heart failure (Chronic) COPD (chronic obstructive pulmonary disease) (Chronic) Coronary artery disease (Chronic Unknown) "S/P inferior [place], severe multivessel disease not amenable to intervention" GERD (gastroesophageal reflux disease) (Chronic) Gout (Chronic) History of pulmonary embolism (Chronic) on detention coumadin History of tachycardia-bradycardia syndrome (Chronic) HLD (hyperlipidemia) (Chronic) Ischemic cardiomyopathy (Chronic) EF 45-49% PAD (peripheral artery disease) (Chronic) PAF (paroxysmal atrial fibrillation) (Chronic) Surgical History H/O toe surgery (Resolved) "amputation left 3rd and 4th toe 03/2012" History of incision of pericardium (Resolved) pericardial window secondary to pericardial effusion History of pacemaker (Chronic) History of tonsillectomy (Resolved) S/P laparoscopic cholecystectomy (Resolved) "Dr. 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 Quit in 1971 ; Second Hand Exposure: No ; Hx Alcohol Use: Yes Alcohol type: beer and hard liquor Hx Substance Use: No Review of Systems See HPI for pertinent positives & negatives. and A total of 10 systems reviewed and were otherwise negative Physical Exam Vital Signs Vital Signs - 24 hr 07/22/19 16:19 07/22/19 16:59 07/22/19 17:52 Temperature 36.8 C Temperature Source Oral Pulse Rate 80 Pulse Rate [Apical] 84 Respiratory Rate 18 18 Respiratory Effort / Characteristics Non-Labored Spontaneous Non-Labored Spontaneous Respiratory Depth Normal Normal Respiratory Pattern Regular Regular Blood Pressure 156/79 H Blood Pressure [Right Arm] 150/73 H Blood Pressure Mean 104 Blood Pressure Mean [Right Arm] 98 Blood Pressure Position Sitting Blood Pressure Position [Right Arm] Sitting Pulse Oximetry 96 98 Oxygen Delivery Method Room Air Room Air Oxygen Flow Rate Sepsis Recent Fever Within 48 Hours No Sepsis New/Unexplained Change in Mental Status No Sepsis Action Taken by Nursing No Action Required 07/22/19 20:07 07/22/19 21:05 Temperature Temperature Source Pulse Rate Pulse Rate [Apical] 84 84 Respiratory Rate 18 16 Respiratory Effort / Characteristics Non-Labored Spontaneous Non-Labored Spontaneous Respiratory Depth Normal Normal Respiratory Pattern Regular Regular Blood Pressure Blood Pressure [Right Arm] 144/71 H 149/74 H Blood Pressure Mean Blood Pressure Mean [Right Arm] 95 99 Blood Pressure Position Blood Pressure Position [Right Arm] Sitting Lying Pulse Oximetry 96 99 Oxygen Delivery Method Room Air Nasal Cannula Oxygen Flow Rate 2 Sepsis Recent Fever Within 48 Hours Sepsis New/Unexplained Change in Mental Status Sepsis Action Taken by Nursing GENERAL: He is oriented to person, place, and time. He appears well-developed and well-nourished. He does not appear distressed. HENT: Exam performed. - Head: Normocephalic and atraumatic. - Right Ear: External ear normal. No mastoid tenderness. - Left Ear: External ear normal. No mastoid tenderness. - Mouth/Throat: The oropharynx is clear and moist. No trismus in the jaw. No dental abscesses or uvula swelling. No oropharyngeal exudate or tonsillar abscesses. EYES: Conjunctivae and EOM are normal. Pupils are equal, round, and reactive to light. Right eye exhibits no discharge. Left eye exhibits no discharge. No scleral icterus. NECK: Normal range of motion. Neck supple. No JVD present. No spinous process tenderness present. No carotid bruit present. No rigidity. No tracheal deviation and normal range of motion present. No Brudzinski's sign and no Kernig's sign noted. CV: Normal rate, regular rhythm, normal heart sounds and intact distal pulses. There is no peripheral edema. Palpable radial pulses bue. PULM/CHEST: Expiratory wheezes present. Effort normal and breath sounds normal. No respiratory distress. No stridor. He has no rales. - Chest Wall: He exhibits no tenderness. ABD: Pain to palpation of left lower quadrant. The abdomen is soft. Bowel sounds are normal. He has no distension. No mass is present. There is no rebound, no guarding, no Lynn's sign and no tenderness at McBurney's point. Rovsig negative. MUSC/SKEL: Normal range of motion. There is no peripheral edema, tenderness or deformity. LYMPH: No cervical adenopathy. NEURO: He is alert and oriented to person, place, and time. He has normal strength. No cranial nerve deficit or sensory deficit. Coordination and gait normal. GCS eye subscore is 4. GCS verbal subscore is 5. GCS motor subscore is 6. Cerebellar tests wnl. SKIN: Skin is warm and dry. He is not diaphoretic. PSYCH: He has a normal mood and affect. Behavior is normal. Judgment and thought content normal. Course Course 161: Past medical records reviewed. The patient was evaluated in room A12A. A complete history and physical exam was performed. 1932: I rechecked on the patient. He is going to give a urine sample, and urology will then be called 2015: Vital signs stable. Labs within normal limits. CT shows 6 mm stone on the left with hydroureteronephrosis. There is also possibility of calyceal rupture. I spoke with Dr. Ferguson, urologist, who believes that the patient should be admitted to medicine as there is a possibility if there is a calyceal rupture that the patient might develop fevers and become septic. Rocephin 1 g will be started, Dr. Vasques agrees with this. He will see the patient in the morning for possible stent placement. 2030: I spoke to Dr. Jiménez, [facility] hospitalist, who agreed to take over care of the patient. I updated the patient, who is agreeable with the treatment plan. He will stay for further evaluation. Administered Medications Ioversol (Optiray 300) 90 ml IV ONCE PRN PRN Reason: Interaction Checking Stop: 07/26/19 17:52 Last Admin: 07/22/19 17:54 Dose: 90 ml Documented by: [id number] Ioversol (Optiray 320 100ml) 93 ml IV ONCE PRN PRN Reason: Interaction Checking Stop: 07/26/19 18:03 Last Admin: 07/22/19 18:05 Dose: 1 ml Documented by: [id number] Discontinued Medications Ceftriaxone Sodium (Rocephin) 1,000 mg in 50 mls @ 100 mls/hr IV NOW STA Stop: 07/22/19 20:55 Last Infusion: 07/22/19 21:36 Dose: 0 mls/hr Documented by: [id number] Admin: 07/22/19 21:06 Dose: 100 mls/hr Documented by: [id number] Ondansetron HCl (Zofran) 4 mg IV NOW STA Stop: 07/22/19 16:21 Last Admin: 07/22/19 16:59 Dose: 4 mg Documented by: [id number] Medical Decision Making Medical Records Attestation: I reviewed the patient's medical records. Home Medications Current Medication List: was personally reviewed by me Laboratory Data Attestation: I reviewed the patient's lab results. Result diagrams: 07/22/19 16:45 07/22/19 16:45 Lab Results 07/22/19 07/22/19 07/22/19 Range/Units 16:45 16:45 16:45 WBC 9.84 (4.8-10.8) K/uL RBC 4.57 L (4.7-6.1) M/uL Hgb 14.2 (14.0-18.0) g/dL Hct 46.2 (42-52) % MCV 101.1 H (80-100) fL MCH 31.1 (25-34) pg MCHC 30.7 L (32-36) g/dL RDW Std Deviation 57.3 H (36.4-46.3) fL RDW Coeff of Lizet 15.4 H (11.5-14.5) % Plt Count 148 (130-400) K/uL MPV 10.2 (7.4-10.4) fL Immature Gran % (Auto) 0.1 % Neut % (Auto) 83.8 % Lymph % (Auto) 7.4 % [place] % (Auto) 7.6 % Eos % (Auto) 0.9 % Baso % (Auto) 0.2 % Immature Gran # (Auto) 0.01 (0.00-0.02) K/uL Neut # (Auto) 8.24 H (1.4-6.5) K/uL Lymph # (Auto) 0.73 L (1.2-3.4) K/uL [place] # (Auto) 0.75 H (0.11-0.59) K/uL Eos # (Auto) 0.09 (0-0.5) K/uL Baso # (Auto) 0.02 (0-0.2) K/uL PT 16.9 H (9.0-12.0) Seconds INR 1.7 H (0.9-1.1) APTT 33.3 H (21.0-31.0) Seconds PTT Ratio 1.2 Sodium 137 (136-145) mmol/L Potassium 4.8 (3.5-5.1) mmol/L Chloride 100 (98-107) mmol/L Carbon Dioxide 32 (21-32) mmol/L Anion Gap 5.0 (3-11) BUN 13 (7-18) mg/dl Creatinine 1.44 H (0.6-1.4) mg/dl Est Cr Clr Drug Dosing 64.2 ml/min Est GFR ( Amer) 55.8 Est GFR (Non-Af Amer) 48.2 BUN/Creatinine Ratio 9.2 L (10-20) Glucose 114 H (70-99) mg/dl Calcium 9.4 (8.5-10.1) mg/dl Magnesium 1.8 (1.8-2.4) mg/dl Total Bilirubin 0.5 (0.2-1) mg/dl Direct Bilirubin < 0.1 (0-0.2) mg/dl AST 17 (15-37) U/L ALT 14 (12-78) U/L Alkaline Phosphatase 135 H (45-117) U/L Total Protein 8.5 H (6.4-8.2) gm/dl Albumin 3.3 L (3.4-5.0) gm/dl Lipase 41 L (73-393) U/L Urine Color Urine Appearance (Clear) Urine pH (4.5-7.5) Ur Specific [place] (1.000-1.030) Urine Protein (Negative) Urine Glucose (UA) (Negative) Urine Ketones (Negative) Urine Blood (Negative) Urine Nitrite (Negative) Urine Bilirubin (Negative) Urine Urobilinogen (Negative) Ur Leukocyte Esterase (Negative) Urine WBC (Auto) (0-5) /hpf Urine RBC (Auto) (0-4) /hpf U Hyaline Cast (Auto) (0-5) /lpf U Epithel Cells (Auto) (0-5) /lpf Urine Bacteria (Auto) (Negative) Ur Renal Epithelial Cell 07/22/19 Range/Units 19:40 WBC (4.8-10.8) K/uL RBC (4.7-6.1) M/uL Hgb (14.0-18.0) g/dL Hct (42-52) % MCV (80-100) fL MCH (25-34) pg MCHC (32-36) g/dL RDW Std Deviation (36.4-46.3) fL RDW Coeff of Lizet (11.5-14.5) % Plt Count (130-400) K/uL MPV (7.4-10.4) fL Immature Gran % (Auto) % Neut % (Auto) % Lymph % (Auto) % [place] % (Auto) % Eos % (Auto) % Baso % (Auto) % Immature Gran # (Auto) (0.00-0.02) K/uL Neut # (Auto) (1.4-6.5) K/uL Lymph # (Auto) (1.2-3.4) K/uL [place] # (Auto) (0.11-0.59) K/uL Eos # (Auto) (0-0.5) K/uL Baso # (Auto) (0-0.2) K/uL PT (9.0-12.0) Seconds INR (0.9-1.1) APTT (21.0-31.0) Seconds PTT Ratio Sodium (136-145) mmol/L Potassium (3.5-5.1) mmol/L Chloride (98-107) mmol/L Carbon Dioxide (21-32) mmol/L Anion Gap (3-11) BUN (7-18) mg/dl Creatinine (0.6-1.4) mg/dl Est Cr Clr Drug Dosing ml/min Est GFR ( Amer) Est GFR (Non-Af Amer) BUN/Creatinine Ratio (10-20) Glucose (70-99) mg/dl Calcium (8.5-10.1) mg/dl Magnesium (1.8-2.4) mg/dl Total Bilirubin (0.2-1) mg/dl Direct Bilirubin (0-0.2) mg/dl AST (15-37) U/L ALT (12-78) U/L Alkaline Phosphatase (45-117) U/L Total Protein (6.4-8.2) gm/dl Albumin (3.4-5.0) gm/dl Lipase (73-393) U/L Urine Color Yellow Urine Appearance Clear (Clear) Urine pH 8.5 H (4.5-7.5) Ur Specific [place] 1.029 (1.000-1.030) Urine Protein 1+ H (Negative) Urine Glucose (UA) Negative (Negative) Urine Ketones Negative (Negative) Urine Blood 2+ H (Negative) Urine Nitrite Negative (Negative) Urine Bilirubin Negative (Negative) Urine Urobilinogen Negative (Negative) Ur Leukocyte Esterase Negative (Negative) Urine WBC (Auto) 1-5 (0-5) /hpf Urine RBC (Auto) 10-30 H (0-4) /hpf U Hyaline Cast (Auto) 0 (0-5) /lpf U Epithel Cells (Auto) >30 H (0-5) /lpf Urine Bacteria (Auto) Negative (Negative) Ur Renal Epithelial Cell Not Reportable Imaging Data Radiologist's Impression: Radiology results as stated below per my review and the radiologist's interpretation: CT abd pelvis IV con only CLINICAL HISTORY: 74 years-old Male presenting with llq pain. TECHNIQUE: Multidetector CT of the abdomen and pelvis was performed after the administration of intravenous contrast. IV contrast: 95 mL of Optiray 320. One or more dose lowering techniques were used consistent with the principles of ALARA (as low as reasonably achievable), including automatic exposure control, mA or kV adjustment to individual patient size, and/or use of iterative r econstruction. COMPARISON: 08/10/2018. CT DOSE (mGy.cm): The estimated cumulative dose is 1477.69 mGy.cm. 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 Left pleural effusion. Cholecystectomy clips. Lung bases: Normal heart size. Coronary artery and aortic valve calcification. Pacer leads in the right atrial appendage and right ventricular apex. Calcifica tion within the papillary musculature may be present. Moderate to large right and small left pleural effusions. The pleural effusion on the left appears loculated within the major fissure. The right pleural effusion is grossly simple appearing. These have significantly increased in size from prior. Extensive peribronchovascular consolidation with bronchiectasis in the lower lobes, left greater than right. These changes are in large part chronic. Liver: Hypertrophy of the left hepatic lobe with mild macro nodularity suggests underlying liver fibrosis/cirrhosis. No focal lesion allowing for this single phase of contrast. Patent hepatic vasculature. Biliary: Mild biliary ductal prominence likely a reservoir effect in the post cholecystectomy state. Gallbladder surgically absent. Pancreas: Moderate parenchymal atrophy. Spleen: Normal. Adrenal glands: Normal. Kidneys and ureters: Nonobstructing 9 mm calculus at the lower pole of the right kidney. Several smaller nonobstructing calculi in the left kidney. Mild left pelvocaliectasis and distention of the proximal left ureter to the level of an obstructing 6 mm proximal left ureteral calculus. Mild up stream. Ureteral fat stranding as well as asymmetric left perinephric fat stranding. There is also small amount of perinephric and pararenal fluid. Mild delayed perfusion of the left kidney comparison to the right. No right hydronephrosis. The right ureters nondistended. Bladder: Circumferential bladder wall thickening. No bladder calculus. Pelvic organs: Prostate enlargement likely secondary to benign prostatic hyperplasia. Bowel: Mild diverticulosis of the proximal sigmoid and distal descending colon without wall thickening or pericolonic inflammatory change. The appendix is normal. No bowel obstruction. Peritoneal cavity: No free fluid or intraperitoneal gas. Lymph nodes: No enlarged lymph nodes in the abdomen or pelvis. Vasculature: Atherosclerosis of the normal caliber abdominal aorta. IVC patent. Abdominal wall: Small fat-containing right inguinal hernia. Small fat-containing umbilical hernia. Nodular infiltration of the subcutaneous fat of the right anterior abdominal wall likely from medication administration. Musculoskeletal: Degenerative changes of the spine. IMPRESSION: 1. Obstructing 6 mm proximal left ureteral calculus with resultant mild left hydroureteronephrosis. Mild left perinephric and pararenal fluid is nonspecific though calyceal rupture cannot be excluded. 2. Bilateral nonobstructing nephrolithiasis. 3. Prostatomegaly with chronic bladder outlet obstruction. 4. Bibasilar bronchiectasis with chronic peribronchovascular consolidation, likely cicatrizing atelectasis. 5. Moderate to large right simple appearing pleural effusion. 6. Small loculated left pleural effusion. ACT 112: Negative or not required by law. Electronically signed by: Manuel Bryant M.D. 07/22/2019 7:09 PM Blood Pressure Blood Pressure Findings: Elevated blood pressure Blood Pressure Disposition: further management by hospitalist JANNA Narrative 161: Past medical records reviewed. The patient was evaluated in room A12A. A complete history and physical exam was performed. 1932: I rechecked on the patient. He is going to give a urine sample, and urology will then be called 2014: Vital signs stable. Labs within normal limits. CT shows 6 mm stone on the left with hydroureteronephrosis. There is also possibility of calyceal rupture. I spoke with Dr. Ferguson, urologist, who believes that the patient should be admitted to medicine as there is a possibility if there is a calyceal rupture that the patient might develop fevers and become septic. Rocephin 1 g will be started, Dr. Vasques agrees with this. He will see the patient in the morning for possible stent placement. 2030: I spoke to Dr. Jiménez, [facility] hospitalist, who agreed to take over care of the patient. I updated the patient, who is agreeable with the treatment plan. He will stay for further evaluation. Impression & Plan Kidney stone, Hydronephrosis, Calyceal renal calculus Discharge Plan Visit Data Chief Complaint: Abdominal Pain Stated Complaint: AB PAIN, NAUSEA ED Provider: Farzad Chin Discharge Problem: Kidney stone, Hydronephrosis, Calyceal renal calculus Forms Stand Alone Forms: Call Back Authorization, My [facility] Prescriptions Prescriptions: No Action aspirin 325 mg Tablet 325 mg PO QPM RF: 0 primidone 250 mg Tablet 500 mg PO HS RF: 0 ranitidine HCl 150 mg tablet 150 mg PO BID RF: 0 nitroglycerin 0.4 mg Tablet, Sublingual 0.4 mg Sublingual UD RF: 0 montelukast 10 mg Tablet 10 mg PO PM RF: 0 allopurinol 300 mg Tablet 300 mg PO DAILY RF: 0 furosemide 20 mg tablet 40 mg PO DAILY RF: 0 metoprolol succinate 25 mg tablet extended release 24 hr 12.5 mg PO DAILY RF: 0 Novolog PenFill U-100 Insulin 100 unit/mL Cartridge 1 sliding scale dose SUBCUT AC RF: 0 rosuvastatin 40 mg Tablet 40 mg PO HS RF: 0 Lantus Solostar U-100 Insulin 100 unit/mL (3 mL) Insulin Pen 26 unit SUBCUT HS RF: 0 ferrous sulfate 325 mg (65 mg iron) Tablet 325 mg PO Q2D RF: 0 ondansetron HCl [Zofran] 4 mg tablet 4 mg PO Q6 PRN (Reason: nausea and vomiting) Qty: 6 RF: 0 bisacodyl 10 mg Suppository 10 mg NH DAILY PRN (Reason: Constipation) RF: 0 docusate sodium [Colace] 100 mg Capsule 100 mg PO BID PRN (Reason: Constipation) RF: 0 warfarin [Jantoven] 2 mg tablet 4 mg PO MOWEFR RF: 0 warfarin 2 mg Tablet 6 mg PO SUTUTHSA RF: 0 Discharge Problem: Hydronephrosis Qualifiers: Hydronephrosis type: unspecified Qualified Code(s): N13.30 - Unspecified hydronephrosis The scribe's documentation has been prepared under my direction and personally reviewed by me in its entirety. I confirm that the note above accurately reflects all work, treatment, procedures, and medical decision making performed by me.
[2019-07-22] MEDS ORDERED: ALBUMIN 25% 50 ML with FUROSEMIDE 40 MG IV STA (21:54)
[2019-07-22] MEDS ORDERED: PROMETHAZINE 12.5 MG/50.5 ML NSS IV ONE (22:10)
[2019-07-23] MEDS ORDERED: INSULIN GLARGINE SOLOSTAR 100 UNITS/ML 3 ML PEN SQ STA (00:22)
[2019-07-23] MEDS ORDERED: GLUCOSE 10 TABS/TUBE PO PRN (00:22)
[2019-07-23] MEDS ORDERED: GLUCAGON FOR INJ 1 MG VIAL SQ PRN (00:22)
[2019-07-23] MEDS ORDERED: CARBOHYDRATES FOR HYPOGLYCEMIA PO PRN (00:22)
[2019-07-23] MEDS ORDERED: NITROGLYCERIN SL 0.4 MG/TAB TAB SL SCH (00:22)
[2019-07-23] MEDS ORDERED: ACETAMINOPHEN 325 MG TAB PO PRN (00:22)
[2019-07-23] MEDS ORDERED: OXYCODONE HCL IR 5 MG TAB (IMMEDIATE RELEASE) PO PRN (00:22)
[2019-07-23] MEDS ORDERED: GLUCOSE 40% GEL 15 GM TUBE PO PRN (00:22)
[2019-07-23] MEDS ORDERED: DOCUSATE SODIUM 100 MG CAP PO PRN (00:22)
[2019-07-23] MEDS ORDERED: DEXTROSE 50% 50 ML SYRINGE IV PRN (00:22)
[2019-07-23] MEDS ORDERED: PROMETHAZINE HCL 12.5 MG in SODIUM CHLORIDE 0.9% 50 ML IV PRN (00:22)
[2019-07-23] MEDS ORDERED: HYDROmorphone INJ 0.5 MG/0.5 ML SYR IV PRN (00:22)
[2019-07-23] MEDS: INSULIN ASPART 100 UNITS/ML 3 ML PEN SC SCH ×5 (00:54→21:13)
[2019-07-23] MEDS: MAGNESIUM SULFATE / D5W 1 GM/100 ML BAG IV SCH ×2 (00:56→01:50)
[2019-07-23 07:25] LABS: Basophils # (auto) 0.02 K/uL (0-0.2); Basophils % (auto) 0.3 %; Eosinophils # (auto) 0.06 K/uL (0-0.5); Eosinophils % (auto) 0.9 %; Hematocrit (blood only) 43.1 % (42-52); Hemoglobin 13.3 g/dL (14.0-18.0); Immature Granulocytes # (auto) 0.01 K/uL (0.00-0.02); Immature Granulocytes % (auto) 0.1 %; Lymphocytes # (auto) 0.69 K/uL (1.2-3.4); Lymphocytes % (auto) 10.2 %; Mean Corpuscular Hemoglobin 30.9 pg (25-34); Mean Corpuscular Hgb Conc 30.9 g/dL (32-36); Mean Platelet Volume 9.6 fL (7.4-10.4); Monocytes # (auto) 0.76 K/uL (0.11-0.59); Monocytes % (auto) 11.2 %; Neutrophils # (auto) 5.24 K/uL (1.4-6.5); Neutrophils % (auto) 77.3 %; Platelet Count 118 K/uL (130-400); RDW Coefficient of Variation 15.5 % (11.5-14.5); RDW Standard Deviation 56.5 fL (36.4-46.3); Red Blood Count 4.31 M/uL (4.7-6.1); White Blood Count 6.78 K/uL (4.8-10.8)
[2019-07-23 07:35] LABS: INR 1.7 (0.9-1.1); Prothrombin Time 17.2 Seconds (9.0-12.0)
[2019-07-23] MEDS: METOPROLOL SUCC 25MG EXT REL TAB PO SCH (07:55)
[2019-07-23 08:00] LABS: BUN Creatinine Ratio 9.9 (10-20); Calcium 9.2 mg/dl (8.5-10.1); Creatinine Clr Calc Pharmacy 56.5 ml/min; Est GFR (African American) 49.2; Est GFR (Non-African American) 42.4; Potassium 4.8 mmol/L (3.5-5.1)
[2019-07-23 10:09] LABS: Partial Thromboplastin Ratio 1.4
--- NOTE | 2019-07-23 13:18 | Consultation Report ---
DATE OF CONSULTATION: 07/23/2019 REASON FOR THE CONSULT: Left ureteral calculus and flank pain. HISTORY OF PRESENTATION: The patient is a 74-year-old male with severe congestive heart failure and COPD with significant swollen legs and multiple visits for this. He also has a history of stones. He developed flank pain last night and presented to the Emergency Room with left flank pain and had a CAT scan that showed an approximately 6 cm proximal left ureteral stone. He also has a history on the CAT scan of a right inguinal hernia and an umbilical hernia. He gets a moderate to large right pleural effusion and a small loculated left pleural effusion and bilateral nonobstructing stones as well. The patient states he has previously passed stones, but he had a procedure done several years ago with Dr. Heaton. His pain problems appear to be secondary to COPD and congestive heart failure. He does have a history of a pacemaker and again severe COPD with a long history of smoking and then a history of working at . He has a significant swollen lower extremities bilaterally, severe persistent edema and wears oxygen. Currently, his pain has resolved and he is eating lunch. He is extremely poor operative risk for surgery at this time. Urine shows blood but does not show white cells or bacteria. His white blood cell count is within a normal range. REVIEW OF SYSTEMS: Please review the review of systems from the history and physical of the admitting doctor today. PHYSICAL EXAMINATION: GENERAL: The patient is an overweight male with moderate distress from difficulty breathing and was choking somewhat from having eaten his lunch and had chocked from something there. He has no flank pain to percussion. His breathing is labored with oxygen with wheezing. GASTROINTESTINAL: Abdomen is somewhat distended, again no flank pain to percussion, did not feel significant tenderness in his abdomen. GENITOURINARY: Deferred at this time. EXTREMITIES: Show significant bilateral chronic edema with brawny edema changes. NEUROLOGIC: He is alert and oriented without obvious focal sensory deficits. HEENT: Unremarkable except for the nasal cannula. ASSESSMENT: A 74-year-old male with severe chronic obstructive pulmonary disease and congestive heart failure with a proximal left ureteral stone. Currently without pain and no evidence of infection. We will reassess with a KUB in the morning to see if the stone is even visible. Because of his size, it may be difficult to see the stones. It is also not 100% clear that he could not have uric acid stones, in which case would certainly want to consider alkalinizing his urine. Although I can see a stone on a KUB that was done back in December, so I think he probably has calcium stones. We will try to investigate this further, but for the meantime, would only place a stent for emergent fever are out of control pain. I will continue to monitor the stone and assess with anesthesia his risk tolerance for surgery.
--- NOTE | 2019-07-23 13:57 | Electrocardiogram Report ---
Test Reason : Blood Pressure : / mmHG Vent. Rate : 074 BPM Atrial Rate : 074 BPM P-R Int : 152 ms QRS Dur : 098 ms QT Int : 382 ms P-R-T Axes : 109 083 082 degrees QTc Int : 424 ms Normal sinus rhythm Nonspecific ST abnormality Abnormal ECG When compared with ECG of 10-JAN-2019 02:26, No significant change was found Confirmed by Dong De La Cruz ([id number]) on 07/23/2019 1:56:45 PM Referred By: REFERRED SELF Confirmed By:Dong De La Cruz
--- NOTE | 2019-07-23 14:19 | Hospitalist Progress Note ---
Date of Service July 23, 2019 Assessment & Plan (1) Kidney stone: 74 year old male who presented to the emergency department on 07/22/2019 for symptoms of upper left-sided achy abdominal pain going to the back with nausea, without emesis -CT scan that showed an approximately 6 cm proximal left ureteral stone -as per [facility] Urology evaluation 07/23/2019: reassess with a KUB in the AM of 07/24/2019 to see if the stone is even visible urinary tract infection was suspected -was started on ceftriaxone in the ER on 07/22/2019 -admission urine analysis however has no bacteria -given it is unclear whether of not patient will need urological procedures, then will continue ceftriaxone antibiotics , NPO after midnight (2) CHF (congestive heart failure): ACUTE ON CHRONIC SYSTOLIC CONGESTIVE HEART FAILURE -While patient was admitted with urology findings, patient also found to have bilateral lower extremity edema and pulmonary congestion on admission CXR from chronic systolic congestive heart failure -chronic systolic heart failure secondary to ischemic cardiomyopathy (EF 45-49%, TTE 2018) -Lasix with albumin was given x 1 on admission; additional Lasix 40 mg IV x 1 ordered 07/23/2019 -telemetry monitoring without acute events; patient may be transferred off telemetry -appreciate further cardiology evaluation Hypertension -continue metoprolol History of CAD/CVA as per records Presence of Pacemaker -management as above -continue metoprolol History of thromboembolism -patient reports blood clots were 2 year sago and has then been on chronic coumadin anticoagulation -coumadin held while awaiting whether any urology procedures needed since the history of thromboembolism is in distant past chronic respiratory failure secondary to COPD on home O2, oxygenation at baseline -Chronic wheezing as per patient -Patient averse to MDI/neb treatment for wheezing with hx of choking side effects attributed to medications. Acute Kidney Injury on Chronic Kidney Disease -monitor renal function while on diuretics 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 snf use of insulin -hemoglobin A1c of 7.17 May 2019 -sliding scale insulin as needed for now DVT prophylaxis. SCDs for now Full code Subjective Patient seen and examined at bedside. He has some wheezes but decline nebulizer treatments. Review of Systems Review of Systems: All systems reviewed & are unremarkable except as noted in HPI & below Physical Exam Constitutional: comfortable Eyes: PERRL, conjunctivae normal, anicteric sclerae EOM intact bilaterally ENMT: external ear and nose normal, oropharynx normal Neck: normal visual inspection Cardiovascular: Rate/Rhythm: regular rate and regular rhythm Gastrointestinal (Abdomen): normal bowel sounds, soft, nontender, no hepatosplenomegaly Musculoskeletal: Head/Neck/Chest: normocephalic and head atraumatic bilateral lower extremity edema Neurologic: PERRL, EOMI, accommodation nl, no face palsy, no dysarthria CN's II-XI intact bilaterally Psychiatric: A+Ox3, euthymic affect Results & Data Vital Signs (Past 12 Hours) Vital Signs Temp Pulse Resp BP Pulse Ox 07/23/19 11:51 36.8 C 98 H 22 126/72 98 07/23/19 08:00 36.8 C 94 H 18 139/68 96 07/23/19 02:35 36.7 C 91 H 19 145/80 H 97
[2019-07-23] MEDS ORDERED: FUROSEMIDE 40 MG in SYRINGE 0 ML IV ONE (15:00)
--- NOTE | 2019-07-23 19:47 | Cardiology Consultation ---
Date of Consultation July 23, 2019 Assessment & Plan (1) Chronic left ventricular systolic heart failure: Patient has a history of chronic mild left ventricular systolic dysfunction, with coronary heart disease not amenable to revascularization. He denies any recent angina. As noted he has a history of both lung disease and congestive heart failure, and takes furosemide 20 mg p.o. daily. He does not believe his respiratory status has been worse than his previous baseline. EKG reveals sinus rhythm at 74 bpm with diffuse nonspecific repolarization changes without any changes to suggest acute ischemia. He is received 2 doses of IV furosemide thus far, the first of which was admin istered with albumin. Creatinine is typically just about 1 mg/dL at recent baseline, and has trended up to 1.49, 1.44, and 1.60 thus far this hospital stay, and did receive contrast intravenously. At this time, I am going to hold tomorrow's furosemide dose for now pending reassessment of his renal function. Urology input noted and appreciated, a KB is planned for tomorrow. Continue prior to hospital doses of aspirin, metoprolol, rosuvastatin History of Present Illness Attending Physician: Michael Macario MD History of Present Illness Ron Canseco is a 74 year old male seen in cardiology consultation per the request of Dr Bazzi for the evaluation of congestive heart failure. 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 Suarez whom the patient had most recently seen April 2019. The patient presented to the emergency room overnight last night with complaints of left-sided abdominal and flank pain. A CT of the abdomen and pelvis with contrast revealed a 6 mm obstructing proximal left ureteral calculus with resultant mild left hydronephrosis. Otherwise bilateral nonobstructive nephrolithiasis was noted. Bibasilar bronchiectasis with chronic nisreen-bronchovascular consolidation noted in the moderate to large right pleural effusion was noted and small loculated left pleural effusion. The patient is received 2 doses of IV furosemide thus far, and reports he feels like he urinated significantly, although only 1.4 L of urine output is documented on his I's and O's since admission. PAST MEDICAL HISTORY: 1.Coronary artery disease, status post inferior wall myocardial infarction with severe multivessel coronary artery disease, deemed nonamenable to intervention. 2.Ischemic cardiomyopathy, EF 45% to 49%. 3.Paroxysmal atrial fibrillation, atrial flutter. 4.History of DVT and pulmonary embolism, on chronic Coumadin therapy. 5.Hyperlipidemia. 6.History of pericardial effusion, status post window and drainage. 7.History of vasovagal/cough/orthostatic syncope. 8.COPD. 9.Peripheral arterial disease. 10.History of tobacco abuse. 11.Chronic kidney disease. 12.Tachybrady syndrome, status post permanent pacemaker placement. Allergies Allergy/AdvReac Type Severity Reaction Status Date / Time albuterol Allergy Severe CHOKING Verified 07/22/19 17:24 SENSATION ipratropium Allergy Severe CHOKING Verified 07/22/19 17:24 SENSATION onion Allergy Intermediate RASH Verified 07/22/19 17:24 levofloxacin Allergy Mild other Verified 07/22/19 17:24 atorvastatin AdvReac Intermediate Muscle Pain Verified 07/22/19 17:24 metformin AdvReac Intermediate Diarrhea Verified 07/22/19 17:24 Home Medications Home Medications Medication Instructions Recorded Confirmed Type Lantus Solostar U-100 Insulin 26 unit SUBCUT HS 04/11/18 07/22/19 History Novolog PenFill U-100 Insulin 1 sliding scale dose SUBCUT 04/11/18 07/22/19 History allopurinol 300 mg PO DAILY 04/11/18 07/22/19 History aspirin 325 mg PO QPM 04/11/18 07/22/19 History ferrous sulfate 325 mg PO Q2D 04/11/18 07/22/19 History furosemide 40 mg PO DAILY 04/11/18 07/22/19 History metoprolol succinate 12.5 mg PO DAILY 04/11/18 07/22/19 History montelukast 10 mg PO PM 04/11/18 07/22/19 History nitroglycerin 0.4 mg SUBLINGUAL UD 04/11/18 07/22/19 History primidone 500 mg PO HS 04/11/18 07/22/19 History ranitidine HCl 150 mg PO BID 04/11/18 07/22/19 History rosuvastatin 40 mg PO HS 04/11/18 07/22/19 History ondansetron HCl [Zofran] 4 mg PO Q6 PRN #6 tab 08/10/18 07/22/19 Rx [address]ac[address] DAILY PRN 10/14/18 07/22/19 History docusate sodium [Colace] 100 mg PO BID PRN 10/14/18 07/22/19 History warfarin [Jantoven] 4 mg PO MOWEFR 10/14/18 07/22/19 History warfarin 6 mg PO SUTUTHSA 01/10/19 07/22/19 History Patient History Medical History Cerebrovascular disease (Chronic Unknown) "history of right caudate stroke Chronic kidney disease stage 3 (Chronic Unknown) Chronic left ventricular systolic heart failure (Chronic) COPD (chronic obstructive pulmonary disease) (Chronic) Coronary artery disease (Chronic Unknown) "S/P inferior FL, severe multivessel disease not amenable to intervention" GERD (gastroesophageal reflux disease) (Chronic) Gout (Chronic) History of pulmonary embolism (Chronic) on assisted coumadin History of tachycardia-bradycardia syndrome (Chronic) HLD (hyperlipidemia) (Chronic) Ischemic cardiomyopathy (Chronic) EF 45-49% PAD (peripheral artery disease) (Chronic) PAF (paroxysmal atrial fibrillation) (Chronic) Surgical History H/O toe surgery (Resolved) "amputation left 3rd and 4th toe 03/2012" History of incision of pericardium (Resolved) pericardial window secondary to pericardial effusion History of pacemaker (Chronic) History of tonsillectomy (Resolved) S/P laparoscopic cholecystectomy (Resolved) "Dr. 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 Quit in 1971 ; Smoking End Date: 1971 ; Second Hand Exposure: No ; Hx Alcohol Use: No Hx Substance Use: No Physical Exam Physical Exam: Temp Pulse Resp BP Pulse Ox 36.8 C 84 21 145/75 H 94 07/23/19 15:27 07/23/19 15:27 07/23/19 15:27 07/23/19 15:27 07/23/19 15:27 Constitutional: WD/WN, vitals as above Respiratory: Decreased breath sounds bilaterally at the bases Cardiovascular: Rate/Rhythm: regular rhythm Heart Sounds: no murmur Vessels: + JVD Extremities: + edema (2+ lower extremity edema, chronic venous stasis changes) Gastrointestinal (Abdomen): normal bowel sounds, soft, nontender, no hepatosplenomegaly Neurologic: PERRL, EOMI, accommodation nl, no face palsy, no dysarthria Results & Data Vital Signs (Past 12 Hours) Vital Signs Temp Pulse Resp BP Pulse Ox 07/23/19 15:27 36.8 C 84 21 145/75 H 94 07/23/19 11:51 36.8 C 98 H 22 126/72 98 07/23/19 08:00 36.8 C 94 H 18 139/68 96
[2019-07-23] MEDS ORDERED: cefTRIAXone SODIUM 1,000 MG in DEXTROSE 5% 50 ML IV SCH (21:00)
[2019-07-23] MEDS ORDERED: cefTRIAXone SODIUM 2,000 MG in DEXTROSE 5% 50 ML IV SCH (21:00)
[2019-07-23] MEDS: ROSUVASTATIN CALCIUM 20 MG TAB PO SCH (21:14)
[2019-07-23] MEDS: ASPIRIN 325 MG ECTAB PO SCH (21:14)
[2019-07-23] MEDS: PRIMIDONE 250 MG TAB PO SCH (21:14)
[2019-07-23] MEDS: MONTELUKAST SODIUM 10 MG TABLET PO SCH (21:15)
[2019-07-23] MEDS: INSULIN GLARGINE SOLOSTAR 100 UNITS/ML 3 ML PEN SQ SCH (21:15)
[2019-07-24] MEDS: METOPROLOL SUCC 25MG EXT REL TAB PO SCH (07:52)
[2019-07-24] MEDS: INSULIN ASPART 100 UNITS/ML 3 ML PEN SC SCH ×4 (08:30→21:26)
[2019-07-24] MEDS ORDERED: FUROSEMIDE 40 MG in SYRINGE 0 ML IV SCH (09:00)
--- NOTE | 2019-07-24 09:09 | XRay Report ---
XR KUB/Abdomen 1 view CLINICAL HISTORY: 74 years-old Male presenting with left ureteral stone. TECHNIQUE: Single supine view of the abdomen was obtained. COMPARISON: 01/10/[address] from 07/22/2019. FINDINGS: Cholecystectomy clips noted. Nonobstructive bowel gas pattern. No gross pneumoperitoneum. Delayed clearance of the left urinary collecting system with mild left pelvocaliectasis and blunting of the calyces as well as mild to moderate distention of the left ureter and the proximal to mid cour ses. The distal left ureter is not visualized. Presumably the obstructing left ureteral calculus has slightly progressed to the level of the mid to distal left ureter. Nonobstructing calculus noted at t he lower pole the right kidney. The bladder is opacified with excreted contrast. Atherosclerotic calc ifications noted. Osseous structures normal. IMPRESSION: 1. Mild left hydroureteronephrosis with suspected progression of the obstructing left ureteral calcu rachel now within the left mid ureter. 2. Nonobstructing right nephrolithiasis. ACT 112: Negative or not required by law. Electronically signed by: Manuel Bryant M.D. 07/24/2019 9:08 AM
--- NOTE | 2019-07-24 10:21 | Urology Progress Note ---
Date of Service July 24, 2019 Assessment & Plan (1) Hydronephrosis: (2) Left ureteral stone: 74 yo M admitted with 6 mm left ureteral stone and multiple comorbidities. Lab work and imaging reviewed. Remains afebrile. No creatinine on chart this AM. No issues with pain at present. KUB demonstrated suspected progression of the obstructing left ureteral calculus now within the left mid ureter. Pt states he has passed stone spontaneously in the remote past. Due to multiple comorbidities, prefer conservative measures at this time. - Strain all urine - Okay to give diet today from perspective, make NPO at midnight to reassess - Will add KUB and BMP for AM Please contact our service urgently if patient develops fever >101F, intractable pain or nausea, or MARY as this will necessitate urgent surgical intervention. Will continue to monitor closely while inpatient. Subjective 74 yo M admitted for 6 mm left ureteral stone and multiple comorbidities. Chart review: Cr 07/23/19 - 1.60 WBC 07/23/19 - 6.78 Afebrile KUB 07/24/19 demonstrates mild left hydroureteronephrosis with suspected progression of the obstructing left ureteral calculus now at left mid ureter, nonobstructing right nephrolithiasis Patient awake and sitting up at side of the bed. Flank pain resolved. Voiding spontaneously. Denies frequency, urgency, dysuria, gross hematuria or difficulty emptying. No fever, chills, nausea or vomiting. Physical Exam Physical Exam: NAD Awake, AOx3 No respiratory distress, able to speak in sentences, O2 via 2L via NC Abd nondistended Voiding spontaneously, yellow urine in urinal B/L lower extremity edema Results & Data Vital Signs (Past 12 Hours) Vital Signs Temp Pulse Resp BP Pulse Ox 07/24/19 07:54 36.9 C 72 18 119/71 93 07/23/19 23:34 36.9 C 77 18 120/75 94 PG Care Time/CCT Total # of Minutes Spent Total Time Spent with Patient: Total time spent is greater than 50% in coordination of care (as documented) at patient's floor/unit and/or counseling patient: (1) Hydronephrosis Hydronephrosis type: unspecified Qualified Code(s): N13.30 - Unspecified hydronephrosis
[2019-07-24] MEDS ORDERED: FUROSEMIDE 20 MG TAB PO SCH (12:45)
[2019-07-24 15:46] LABS: Basophils # (auto) 0.02 K/uL (0-0.2); Basophils % (auto) 0.3 %; Eosinophils # (auto) 0.21 K/uL (0-0.5); Eosinophils % (auto) 2.8 %; Hematocrit (blood only) 42.3 % (42-52); Hemoglobin 13.2 g/dL (14.0-18.0); Immature Granulocytes # (auto) 0.02 K/uL (0.00-0.02); Immature Granulocytes % (auto) 0.3 %; Lymphocytes # (auto) 0.85 K/uL (1.2-3.4); Lymphocytes % (auto) 11.5 %; Mean Corpuscular Hemoglobin 31.7 pg (25-34); Mean Corpuscular Hgb Conc 31.2 g/dL (32-36); Mean Corpuscular Volume 101.4 fL (80-100); Monocytes # (auto) 0.74 K/uL (0.11-0.59); Neutrophils # (auto) 5.56 K/uL (1.4-6.5); Neutrophils % (auto) 75.1 %; Platelet Count 115 K/uL (130-400); RDW Coefficient of Variation 15.3 % (11.5-14.5); Red Blood Count 4.17 M/uL (4.7-6.1)
[2019-07-24] MEDS ORDERED: WARFARIN SOD 4 MG TAB PO SCH (16:00)
[2019-07-24 16:02] LABS: BUN Creatinine Ratio 11.6 (10-20); Calcium 9.3 mg/dl (8.5-10.1); Creatinine Clr Calc Pharmacy 47.5 ml/min; Est GFR (African American) 39.9; Est GFR (Non-African American) 34.5; Potassium 4.6 mmol/L (3.5-5.1)
[2019-07-24 16:05] LABS: Albumin Globulin Ratio 0.6 (0.9-2); Bilirubin,Total 0.5 mg/dl (0.2-1); Globulin 4.9 gm/dl (2.5-4.0); Total Protein 7.9 gm/dl (6.4-8.2)
[2019-07-24] MEDS ORDERED: SODIUM CHLORIDE 0.9% 1000ML 250 ML IV ONE (16:05)
--- NOTE | 2019-07-24 16:15 | Hospitalist Progress Note ---
Date of Service July 24, 2019 Assessment & Plan (1) CHF (congestive heart failure): Kidney stone: -74 year old male who presented to the emergency department on 07/22/2019 for symptoms of upper left-sided achy abdominal pain going to the back with nausea, without emesis -CT scan that showed an approximately 6 cm proximal left ureteral stone -KUB in the AM of 07/24/2019: Mild left hydroureteronephrosis with suspected progression of the obstructing left ureteral calculus now within the left mid ureter. Nonobstructing right nephrolithiasis. -07/24/2019 [facility] urology assessments: Due to multiple comorbidities, [facility] Urology prefer conservative measures at this time, again make NPO at midnight to reassess -KUB to be scheduled on 07/25/2019 AM urinary tract infection was suspected -was started on ceftriaxone in the ER on 07/22/2019 -admission urine analysis however has no bacteria -ceftriaxone stopped on 07/24/2019 as urinary tract infection ruled out and no immediate plans from [facility] urology service to do intervention ACUTE ON CHRONIC SYSTOLIC CONGESTIVE HEART FAILURE -While patient was admitted with urology findings of 6 mm left ureteral stone, patient also found to have bilateral lower extremity edema and pulmonary congestion on admission CXR from chronic systolic congestive heart failure -chronic systolic heart failure secondary to ischemic cardiomyopathy (EF 45-49%, TTE 2018) -Lasix with albumin was given x 1 on admission; additional Lasix 40 mg IV x 1 given 07/23/2019 -telemetry monitoring without acute events as of 07/23/2019 and patient transferred off telemetry -Lasix 20 mg orally given on day time as of 07/24/2019. due to rising creatinine, will hold off further diuretics for now Acute Kidney Injury on Chronic Kidney Disease -creatinine increased to 1.9 as of afternoon 07/24/2019 labs, creatinine rising likely from Lasix -normal saline IV fluids 250 cc ordered Hypertension -continue metoprolol History of CAD/CVA as per records Presence of Pacemaker -management as above -continue metoprolol History of thromboembolism -patient reports blood clots were 2 year sago and has then been on chronic coumadin anticoagulation -coumadin is to be resumed chronic respiratory failure secondary to COPD on home O2, oxygenation at baseline -Chronic wheezing as per patient -Patient averse to MDI/neb treatment for wheezing with hx of choking side effects attributed to medications. 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 alf use of insulin -hemoglobin A1c of 7.17 May 2019 -sliding scale insulin as needed for now DVT prophylaxis. SCDs for now, resume coumadin Full code Subjective Patient reports abdominal pain is resolved. no back or flank pain. his breathing does not cause him acute discomfort. denies chest pain. no palpitations. no vomiting. tolerated diet Review of Systems Review of Systems: All systems reviewed & are unremarkable except as noted in HPI & below Physical Exam Constitutional: comfortable Eyes: PERRL, conjunctivae normal, anicteric sclerae EOM intact bilaterally ENMT: external ear and nose normal, oropharynx normal Neck: normal visual inspection Respiratory: normal respiratory effort Cardiovascular: Rate/Rhythm: regular rate and regular rhythm Gastrointestinal (Abdomen): normal bowel sounds, soft, nontender, no hepatosplenomegaly Musculoskeletal: Head/Neck/Chest: normocephalic and head atraumatic bilateral lower extremity edema Neurologic: PERRL, EOMI, accommodation nl, no face palsy, no dysarthria CN's II-XI intact bilaterally Psychiatric: A+Ox3, euthymic affect Results & Data Vital Signs (Past 12 Hours) Vital Signs Temp Pulse Pulse Resp BP BP Pulse Ox 07/24/19 15:31 36.6 C 76 18 147/84 H 97 07/24/19 07:54 36.9 C 72 18 119/71 93
--- NOTE | 2019-07-24 16:27 | Cardiology Progress Note ---
Date of Service July 24, 2019 Assessment & Plan (1) Chronic left ventricular systolic heart failure: Patient with volume overload, but I am not certain how far off he is from his typical baseline. Following left ureter stone. Creatinine had trended up to 1.9, and therefore his furosemide has been reduced to his outpatient oral dose of 20 mg furosemide p.o. daily. Continue Coumadin, INR 1.7 today. Results & Data Vital Signs (Past 12 Hours) Vital Signs Temp Pulse Pulse Resp BP BP Pulse Ox 07/24/19 15:31 36.6 C 76 18 147/84 H 97 07/24/19 07:54 36.9 C 72 18 119/71 93
[2019-07-24] MEDS: ROSUVASTATIN CALCIUM 20 MG TAB PO SCH (21:24)
[2019-07-24] MEDS: INSULIN GLARGINE SOLOSTAR 100 UNITS/ML 3 ML PEN SQ SCH (21:25)
[2019-07-24] MEDS: ASPIRIN 325 MG ECTAB PO SCH (21:25)
[2019-07-24] MEDS: PRIMIDONE 250 MG TAB PO SCH (21:26)
[2019-07-24] MEDS: MONTELUKAST SODIUM 10 MG TABLET PO SCH (21:28)
[2019-07-25] MEDS ORDERED: cefTRIAXone SODIUM 2,000 MG in DEXTROSE 5% 50 ML IV SCH (06:00)
[2019-07-25 07:56] LABS: INR 1.5 (0.9-1.1); Prothrombin Time 15.1 Seconds (9.0-12.0)
[2019-07-25] MEDS: INSULIN ASPART 100 UNITS/ML 3 ML PEN SC SCH ×4 (08:00→20:44)
[2019-07-25 08:17] LABS: BUN Creatinine Ratio 12.8 (10-20); Calcium 9.2 mg/dl (8.5-10.1); Creatinine Clr Calc Pharmacy 51.9 ml/min; Est GFR (African American) 44.4; Est GFR (Non-African American) 38.3; Potassium 4.1 mmol/L (3.5-5.1)
--- NOTE | 2019-07-25 08:22 | XRay Report ---
XR KUB/Abdomen 1 view CLINICAL HISTORY: left ureteral stone nephrocalcinosis COMPARISON STUDY: 07/24/2019 FINDINGS: Unchanged contrast within the left ureter and left upper collecting system. Structure level remains at approximately the level of L5. Unchanged nonobstructing right renal nephrocalcinosis. IMPRESSION: Unchanged obstruction mid left ureter at approximately the level of L5. ACT 112: Negative or not required by law. The above report was generated using voice recognition software. It may contain grammatical, syntax or spelling errors. Electronically signed by: Wilder Shelton M.D. 07/25/2019 8:21 AM
--- NOTE | 2019-07-25 08:44 | Urology Progress Note ---
Date of Service July 25, 2019 Assessment & Plan (1) Hydronephrosis: (2) Left ureteral stone: 74 yo M admitted with 6 mm left ureteral stone and multiple comorbidities. Lab work and imaging reviewed. Remains afebrile. Creatinine 1.74 this AM. KUB this AM showed unchanged position of left ureteral stone. Discussed intervention today due to no change in stone position and bump in creatinine. Patient verbalizes understanding and agreeable. Reviewed with Dr. Macario, hospitalist, who feels patient is medically optimized for intervention given his comorbidities. - Strain all urine - Keep NPO Findings reviewed with Dr. Antonio and Lyao. Given his MARY in the context of an obstructing 6 mm left ureteral stone, will proceed with OR for cysto, left retrograde pyelogram and Left stent placement, possible ureteroscopy, laser lithotripsy, stone basketing, possible ureteral dilation depending on findings. Risks and benefits to be reviewed with patient by surgeon. OR notified. CXR and EKG completed while inpatient. Will cover with IV ceftriaxone preoperatively. Attending: Agree with above, OR this afternoon. HM Subjective 74 yo M admitted for 6 mm left ureteral stone and multiple comorbidities. Chart review: Cr 07/25/19 - 1.74 Afebrile KUB 07/25/19 demonstrates unchanged position of left ureteral stone Patient awake and sitting up at side of the bed. No flank pain. Voiding spontaneously. Denies frequency, urgency, dysuria, gross hematuria or difficulty emptying. No fever, chills, nausea or vomiting. Review of Systems Review of Systems: All systems reviewed & are unremarkable except as noted in HPI & below Physical Exam Constitutional: no acute distress Respiratory: no respiratory distress and no labored breathing O2 at 2L via NC Cardiovascular: Extremities: + edema (B/L lower extremity edema) Gastrointestinal (Abdomen): Inspection/Auscultation: abdomen not distended Percussion/Palpation: abdomen soft; no guarding Neurologic: moves all extremities and awake Psychiatric: Orientation: alert, oriented x 3 and cooperative Genitourinary: no CVA tenderness Results & Data Vital Signs (Past 12 Hours) Vital Signs Temp Pulse Resp BP Pulse Ox 07/25/19 07:25 37.0 C 77 19 122/74 95 07/24/19 23:00 37.0 C 68 18 126/76 97 PG Care Time/CCT Total # of Minutes Spent Total Time Spent with Patient: Total time spent is greater than 50% in coordination of care (as documented) at patient's floor/unit and/or counseling patient: (1) Hydronephrosis Hydronephrosis type: unspecified Qualified Code(s): N13.30 - Unspecified hydronephrosis
[2019-07-25] MEDS: METOPROLOL SUCC 25MG EXT REL TAB PO SCH (08:49)
[2019-07-25] MEDS ORDERED: cefTRIAXone SODIUM 1,000 MG in DEXTROSE 5% 50 ML IV SCH (09:15)
--- NOTE | 2019-07-25 13:43 | Anesthesiology Consultation ---
Date of Service July 25, 2019 Assessment & Plan (1) Encounter for pre-operative examination: Chart Review Chart Review: Acceptable Risk for Surgery and Patient NOT seen in Pre Admission Testing Cardiology note 07/24/2019: Chronic left ventricular systolic heart failure. Patient with volume overload, but I am not certain how far off he is from his typical baseline. Consults Requested none History Surgery Operation Date: 07/25/19 08:30 Proposed Procedures p Cystoscopy, Left Retrograde, Possible Ureteroscopy, Laser Lithotripsy, Stent Placement - Guzman Antonio MD Height/Weight Height: 6 ft 1 in Weight: 119.4 kg Allergies Allergy/AdvReac Type Severity Reaction Status Date / Time albuterol Allergy Severe CHOKING Verified 07/22/19 17:24 SENSATION ipratropium Allergy Severe CHOKING Verified 07/22/19 17:24 SENSATION onion Allergy Intermediate RASH Verified 07/22/19 17:24 levofloxacin Allergy Mild other Verified 07/22/19 17:24 atorvastatin AdvReac Intermediate Muscle Pain Verified 07/22/19 17:24 metformin AdvReac Intermediate Diarrhea Verified 07/22/19 17:24 Medications Home Medications Medication Instructions Recorded Confirmed Last Taken Lantus Solostar U-100 Insulin 26 unit SUBCUT 04/11/18 07/22/19 01/09/19 Novolog PenFill U-100 Insulin 1 sliding scale dose SUBCUT AC 04/11/18 07/22/19 01/09/19 allopurinol 300 mg PO DAILY 04/11/18 07/22/19 01/09/19 aspirin 325 mg PO QPM 04/11/18 07/22/19 01/09/19 ferrous sulfate 325 mg PO Q2D 04/11/18 07/22/19 01/09/19 furosemide 40 mg PO DAILY 04/11/18 07/22/19 01/09/19 metoprolol succinate 12.5 mg PO DAILY 04/11/18 07/22/19 01/09/19 montelukast 10 mg PO PM 04/11/18 07/22/19 01/09/19 nitroglycerin 0.4 mg SUBLINGUAL UD 04/11/18 07/22/19 Unknown primidone 500 mg PO HS 04/11/18 07/22/19 01/09/19 ranitidine HCl 150 mg PO BID 04/11/18 07/22/19 01/09/19 rosuvastatin 40 mg PO HS 04/11/18 07/22/19 01/09/19 ondansetron HCl [Zofran] 4 mg PO Q6 PRN #6 tab 08/10/18 07/22/19 Unknown bisacodyl 10 mg FL DAILY PRN 10/14/18 07/22/19 Unknown docusate sodium [Colace] 100 mg PO BID PRN 10/14/18 07/22/19 Unknown warfarin [Jantoven] 4 mg PO MOWEFR 10/14/18 07/22/19 01/08/19 warfarin 6 mg PO SUTUTHSA 01/10/19 07/22/19 01/09/19 Active Medications Generic Name Dose Route Start Last Admin Trade Name Bill PRN Reason Stop Dose Admin Aspirin 325 mg 07/23/19 21:00 07/24/19 21:25 Ecotrin PO 08/22/19 20:59 325 mg QPM ANNA Administration Insulin Aspart 0 units 07/23/19 00:22 07/25/19 13:42 Novolog Flexpen SC 08/22/19 00:21 Not Given ACHS ANNA Insulin Glargine 5 units 07/23/19 21:00 07/24/19 21:25 Lantus Solostar Pen SQ 08/22/19 20:59 5 units HS ANNA Administration Metoprolol Succinate 12.5 mg 07/23/19 09:00 07/25/19 08:49 Toprol Xl PO 08/22/19 08:59 12.5 mg DAILY ANNA Administration Montelukast Sodium 10 mg 07/23/19 21:00 07/24/19 21:28 Singulair PO 08/22/19 20:59 10 mg PM ANNA Administration Primidone 500 mg 07/23/19 21:00 07/24/19 21:26 Mysoline PO 08/22/19 20:59 500 mg HS ANNA Administration Rosuvastatin Calcium 40 mg 07/23/19 21:00 07/24/19 21:24 Crestor PO 08/22/19 20:59 40 mg HS ANNA Administration NPO Date Last Intake of Fluids: 07/25/19 Time Last Intake of Fluids: 00:00 Last Intake of Fluids Comment: sips with am med at 0900 Date Last Intake of Solids: 07/24/19 Time Last Intake of Solids: 20:00 Past Medical History Medical History Cerebrovascular disease (Chronic Unknown) "history of right caudate stroke Chronic kidney disease stage 3 (Chronic Unknown) Chronic left ventricular systolic heart failure (Chronic) COPD (chronic obstructive pulmonary disease) (Chronic) Coronary artery disease (Chronic Unknown) "S/P inferior [place], severe multivessel disease not amenable to intervention" GERD (gastroesophageal reflux disease) (Chronic) Gout (Chronic) History of pulmonary embolism (Chronic) 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 History of tachycardia-bradycardia syndrome (Chronic) HLD (hyperlipidemia) (Chronic) Ischemic cardiomyopathy (Chronic) EF 45-49% PAD (peripheral artery disease) (Chronic) PAF (paroxysmal atrial fibrillation) (Chronic) Past Family History Family History Mother Alzheimer disease Past Surgical History Surgical History H/O toe surgery (Resolved) "amputation left 3rd and 4th toe 03/2012" History of incision of pericardium (Resolved) pericardial window secondary to pericardial effusion History of pacemaker (Chronic) History of tonsillectomy (Resolved) S/P laparoscopic cholecystectomy (Resolved) "Dr. Tang 12/2014" Social History Smoking Status: Former smoker tobacco type: cigarettes Smoking cigarettes per day: 4-6 packs. Quit in 1971 Smoking End Date: 1971 Hx Alcohol Use: No Alcohol type: beer and hard liquor alcohol intake frequency: a few times a month Hx Substance Use: No Physical Exam Vital Signs Last Vital Signs Temp 36.7 C 07/25/19 11:17 Pulse 77 07/25/19 11:17 Resp 18 07/25/19 11:17 BP 125/74 07/25/19 11:17 Pulse Ox 93 07/25/19 11:17 Testing Laboratory Results 07/24/19 15:28 07/25/19 07:19 PT 15.1 Seconds (9.0-12.0) H 07/25/19 07:19 INR 1.5 (0.9-1.1) H 07/25/19 07:19 APTT 37.0 Seconds (21.0-31.0) H 07/23/19 07:11 Urine Color Yellow 07/22/19 19:40 Urine Appearance Clear (Clear) 07/22/19 19:40 Urine pH 8.5 (4.5-7.5) H 07/22/19 19:40 Ur Specific [place] 1.029 (1.000-1.030) 07/22/19 19:40 Urine Protein 1+ (Negative) H 07/22/19 19:40 Urine Glucose (UA) Negative (Negative) 07/22/19 19:40 Urine Ketones Negative (Negative) 07/22/19 19:40 Urine Nitrite Negative (Negative) 07/22/19 19:40 Ur Leukocyte Esterase Negative (Negative) 07/22/19 19:40 Urine WBC (Auto) 1-5 /hpf (0-5) 07/22/19 19:40 Urine RBC (Auto) 10-30 /hpf (0-4) H 07/22/19 19:40 U Hyaline Cast (Auto) 0 /lpf (0-5) 07/22/19 19:40 U Epithel Cells (Auto) >30 /lpf (0-5) H 07/22/19 19:40 Urine Bacteria (Auto) Negative (Negative) 07/22/19 19:40 07/25/19 07/25/19 11:43 07:39 POC Glucose 154 H 153 H Electrocardiogram Date: 07/23/19 Findings: + NSR @ (74) Normal sinus rhythm Nonspecific ST abnormality Abnormal ECG When compared with ECG of 10-JAN-2019 02:26, No significant change was found Confirmed by Dong De La Cruz ([id number]) on 07/23/2019 1:56:45 PM Chest X-Ray Date: 07/22/19 XR chest 1V portable CLINICAL HISTORY: 74 years-old Male presenting with wheezing. TECHNIQUE: Portable upright AP view of the chest was obtained. COMPARISON: . FINDINGS: Left subclavian pacer with leads to the right atrium and right ventricular apex. Atherosclerosis of the aortic arch. Cardiac silhouette enlarged. Pulmonary vascular prominence. Interstitial prominence. Bibasilar opacities with small right and trace left pleural effusion suspected. No pneumothorax. Degenerative changes of the thoracic spine. Upper abdomen normal. IMPRESSION: 1. Cardiomegaly with volume overload and congestive change. 2. Suspected mild basilar predominant pulmonary edema versus atelectasis. Aspiration could also be considered but is less favored. 3. Small right and trace left pleural effusions Echocardiogram Date: 11/07/17 EF 45-50% LV systolic function is mildly reduced Mild LVH Inferior and posterior wall are hypokinetic LA is moderately dialted No Mild MR/TR Grade 1 diastolic dysfunction.
[2019-07-25] MEDS ORDERED: MIDAZOLAM HCL 1 MG/ML 2ML VIAL ONE (14:55)
[2019-07-25] MEDS ORDERED: PROPOFOL IV EMULSION 10 MG/ML 20 ML VIAL IV ONE (14:55)
[2019-07-25] MEDS ORDERED: fentaNYL citrate 100 MCG/2 ML VIAL ONE (14:56)
[2019-07-25] MEDS ORDERED: ONDANSETRON INJ 2 MG/ML 2 ML VIAL IV PRN (15:30)
[2019-07-25] MEDS ORDERED: ePHEDrine sulfate 50 MG/ML AMP IV PRN (15:30)
[2019-07-25] MEDS ORDERED: fentaNYL citrate 100 MCG/2 ML VIAL IV PRN (15:30)
[2019-07-25] MEDS ORDERED: WARFARIN SOD 6 MG TAB PO SCH (16:00)
[2019-07-25] MEDS ORDERED: IOTHALAMATE MEGLUMINE II 17.2% 250 ML VIAL ONE (16:05)
[2019-07-25] MEDS ORDERED: CEFAZOLIN 250 MG/ML 1 GM VIAL ONE ×2 (16:22→16:24)
[2019-07-25] MEDS ORDERED: CEFAZOLIN 3000MG 72.5 ML IV ONE (16:25)
--- NOTE | 2019-07-25 16:33 | Operative Report ---
[facility] Post Operative Report Pre & Post Diagnosis Operation Date: 07/25/19 08:30 Pre-Op Diagnosis: left ureteral stone; congestive heart failure; renal failure Post-Op Diagnosis: same as preop Anesthesia: Monitored anesthesia care with sedation. Surgeon: Dr. Guzman Antonio. Drains left in place: Left-sided 6 [place] multilength ureteral stent. Specimen sent to pathology: Bladder urine for culture and sensitivity after drainage of left renal moiety. Findings: Good stent position on fluoroscopic imaging, cloudy urine with debris from the left kidney after drainage. Complications: None I identified the patient and participated in the time-out.: Yes Procedure Operation Date: 07/25/19 08:30 Actual Procedures p Cystoscopy, Left Retrograde pyelogram; Left ureteral Stent Placement(Left) - Guzman Antonio MD Brief history: Patient is a 74-year-old male with history of left ureteral stone, asymptomatic save for recent onset of renal insufficiency. Patient is also suffering from COPD and CHF and generally not felt to be optimized for general anesthesia from an anesthesia standpoint per our conversation today. Seen his new renal insufficiency he is being brought in to address his left-sided ureteral stone. Although ureteroscopy was considered it was felt to be safer to perform the procedure under monitored anesthesia care and sedation and therefore we will proceed with a stent placement to decompress his left kidney and hopefully improve his renal function. Risks and benefits of intervention have been discussed with the patient who vocalizes good understanding of the treatment plan. Intravenous Ancef is provided for antibiotic coverage today. Please see urology consultation and progress notes for further details. Procedure: Patient was properly identified and brought into the operative suite after identification of appropriate consent in the chart. Monitored anesthesia care with sedation was initiated and patient was prepped and draped in standard fashion for this procedure. Full timeout procedure was followed. 22 Y[place]ut rigid cystoscope was introduced into the bladder under direct visualization and bladder was surveyed in its entirety. Mild lateral lobe hypertrophy of the prostate was appreciated without stricture or other urethral abnormalities. Bladder was noted to be free of tumors with grade 1 trabeculation. No intravesical masses or papillary lesions were noted. Ureteral orifice ease were appreciated in the normal anatomic location bilaterally with the left ureter peristalsing without output. Left-sided ureteral orifice was addressed using an open-ended catheter and gentle retrograde pyelography was performed. This demonstrated a transition point in the distal ureter with proximal mild to moderate hydroureteronephrosis. Sensor tip wire was advanced up to the level of the left renal pelvis followed by a 6 [place] multilength ureteral stent. This demonstrated drainage of cloudy urine with debris and a hydronephrotic drip after placement of a left stent. Full coil was appreciated at the level of the left renal pelvis and full redundant coil was present within the bladder as w ell. [place] of urine was taken and sent for culture and sensitivity. Bladder was drained and cystoscope was removed. Anesthesia was reversed and patient was transferred to the recovery room in stable condition. Follow-up CARE: Patient will be readmitted to the floor for further management per the primary service. Surgeon Guzman Antonio MD Medical Underwriter None Estimated Blood Loss 0 Findings Consistent with Post-Op Diagnosis Specimens Urine for culture and sensitivity after drainage of left kidney Description of Procedure See above I attest to the content of the Intraoperative Record and any orders documented therein. Any exceptions are noted below.
--- NOTE | 2019-07-25 16:55 | Fluoroscopy Report ---
FL retrograde includes kub HISTORY: STONES FLUOROSCOPY TIME: 22 seconds FINDINGS: 3 fluoroscopic spot images were submitted for review. Retrograde opacification of the left renal collecting system. This is followed by placement of a left ureteral stent. Only the proximal po rtion of the stent is identified which appears in good position. IMPRESSION: Fluoroscopy provided for left ureteral stent placement which appears in good position. ACT 112: Negative or not required by law. Electronically signed by: Nik Green M.D. 07/25/2019 4:54 PM
--- NOTE | 2019-07-25 17:23 | Anesthesiology Progress Note ---
Date of Service July 25, 2019 Anesthesia Post Procedure Vital Signs Vital Signs: Temp Pulse Pulse Resp BP BP Pulse Ox 07/25/19 17:15 75 18 122/91 97 07/25/19 17:05 74 17 154/69 H 98 07/25/19 16:55 36.4 C L 75 20 131/78 97 07/25/19 16:45 77 15 139/70 100 07/25/19 16:39 36.0 C L 83 18 131/79 100 07/25/19 14:49 36.8 C 74 18 138/61 97 07/25/19 11:17 36.7 C 77 18 125/74 93 07/25/19 07:25 37.0 C 77 19 122/74 95 07/24/19 23:00 37.0 C 68 18 126/76 97 Pain Intensity Upper Abdomen: Pain Intensity: 0 Transfer of Care Handoff Completed per policy Notes Mental Status: alert / awake / arousable and participated in evaluation Patient Amnestic to Procedure: Yes Nausea / Vomiting: adequately controlled Pain: adequately controlled Airway Patency, RR, SpO2: stable & adequate BP & HR: stable & adequate Hydration State: stable & adequate Anesthetic Complications: no major complications apparent and Pt Satisfied with anesthetic care
--- NOTE | 2019-07-25 18:01 | Hospitalist Progress Note ---
Date of Service July 25, 2019 Assessment & Plan (1) CHF (congestive heart failure): Kidney stone: -74 year old male who presented to the emergency department on 07/22/2019 for symptoms of upper left-sided achy abdominal pain going to the back with nausea, without emesis -CT scan that showed an approximately 6 cm proximal left ureteral stone -KUB in the AM of 07/24/2019: Mild left hydroureteronephrosis with suspected progression of the obstructing left ureteral calculus now within the left mid ureter. Nonobstructing right nephrolithiasis. -[facility] initially attempted conservative nonoperative management -[facility] service agreed to do Cystoscopy with Left Retrograde pyelogram with Left ureteral Stent Placement on 07/25/2019 after no improvements on 07/25/2019 KUB. drainage of cloudy urine with debris was seen by urologist after left ureteral stent placement . Patient returns from procedure. urinary tract infection was suspected -was started on ceftriaxone in the ER on 07/22/2019 -admission urine analysis however has no bacteria; ceftriaxone stopped on 07/24 as urinary tract infection ruled out at the time there was no immediate plans from [facility] urology service to do intervention -07/25/2019 ceftriaxone and then cefazolin was given pre-operatively of the cystoscopy ACUTE ON CHRONIC SYSTOLIC CONGESTIVE HEART FAILURE -While patient was admitted with urology findings of 6 mm left ureteral stone, patient also found to have bilateral lower extremity edema and pulmonary congestion on admission CXR from chronic systolic congestive heart failure -chronic systolic heart failure secondary to ischemic cardiomyopathy (EF 45-49%, TTE 2018) -Lasix with albumin was given x 1 on admission; additional Lasix 40 mg IV x 1 given 07/23/2019 -telemetry monitoring without acute events as of 07/23/2019 and patient transferred off telemetry -Lasix 20 mg orally given on day time as of 07/24/2019. due to rising creatinine, will hold off further diuretics for now Acute Kidney Injury on Chronic Kidney Disease -creatinine increased to 1.9 as of afternoon 07/24/2019 labs, creatinine rising likely from Lasix -normal saline IV fluids 250 cc given -trend creatinine after cystoscopy performed on 07/25/2019 Hypertension -continue metoprolol History of CAD/CVA as per records Presence of Pacemaker -management as above -continue metoprolol History of thromboembolism -patient reports blood clots were 2 year ago and has then been on chronic coumadin anticoagulation -coumadin generally was held during hospital stay while awaiting urology intervention, patient did get a dose of coumadin on 07/24/2019 when no intervention was thought to have been needed -continue to hold coumadin after cystoscopy on 07/25/2019 -can consider resumption of coumadin for 07/26/2019 chronic respiratory failure secondary to COPD on home O2, oxygenation at baseline -Patient averse to MDI/neb treatment for wheezing with hx of choking side effects attributed to medications. 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 SCDs for now Full code Subjective [facility] service agreed to do Cystoscopy with Left Retrograde pyelogram with Left ureteral Stent Placement on 07/25/2019 after no improvements on 07/25/2019 KUB. Patient returns from procedure. denies abdominal or pelvic pain. he is comfortable. no chest pain. no palpitations. no dizziness. no headache. no complaints of symptoms Review of Systems Review of Systems: All systems reviewed & are unremarkable except as noted in HPI & below Physical Exam Constitutional: comfortable Eyes: PERRL, conjunctivae normal, anicteric sclerae EOM intact bilaterally ENMT: external ear and nose normal, oropharynx normal Neck: normal visual inspection Respiratory: normal respiratory effort Cardiovascular: Rate/Rhythm: regular rate and regular rhythm Gastrointestinal (Abdomen): normal bowel sounds, soft, nontender, no hepatosplenomegaly Musculoskeletal: Head/Neck/Chest: normocephalic and head atraumatic Neurologic: PERRL, EOMI, accommodation nl, no face palsy, no dysarthria CN's II-XI intact bilaterally Psychiatric: A+Ox3, euthymic affect Results & Data Vital Signs (Past 12 Hours) Vital Signs Temp Pulse Pulse Resp BP BP Pulse Ox 07/25/19 17:15 75 18 122/91 97 07/25/19 17:05 74 17 154/69 H 98 07/25/19 16:55 36.4 C L 75 20 131/78 97 07/25/19 16:45 77 15 139/70 100 07/25/19 16:39 36.0 C L 83 18 131/79 100 07/25/19 14:49 36.8 C 74 18 138/61 97 07/25/19 11:17 36.7 C 77 18 125/74 93 07/25/19 07:25 37.0 C 77 19 122/74 95
[2019-07-25] MEDS: ASPIRIN 325 MG ECTAB PO SCH (20:43)
[2019-07-25] MEDS: INSULIN GLARGINE SOLOSTAR 100 UNITS/ML 3 ML PEN SQ SCH (20:43)
[2019-07-25] MEDS: ROSUVASTATIN CALCIUM 20 MG TAB PO SCH (20:43)
[2019-07-25] MEDS: PRIMIDONE 250 MG TAB PO SCH (20:44)
[2019-07-25] MEDS: MONTELUKAST SODIUM 10 MG TABLET PO SCH (20:45)
[2019-07-26 01:24] LABS: Appearance Urine Turbid (Clear); Bilirubin Urine Negative (Negative); Blood Urine 3+ (Negative); Color Urine Red; Glucose Urine UA Negative (Negative); Ketones Urine Trace (Negative); Leukocyte Esterase Urine Trace (Negative); Nitrite Urine Negative (Negative); Protein Urine 3+ (Negative); Specific Gravity Urine 1.025 (1.000-1.030); Urobilinogen Urine Negative (Negative); pH Urine 6.5 (4.5-7.5)
[2019-07-26 01:30] LABS: Bacteria Urine Negative (Negative); RBC Urine >30 /hpf (0-4); WBC Urine >30 /hpf (0-5)
[2019-07-26 07:59] LABS: Basophils # (auto) 0.02 K/uL (0-0.2); Basophils % (auto) 0.4 %; Eosinophils # (auto) 0.25 K/uL (0-0.5); Eosinophils % (auto) 4.5 %; Hematocrit (blood only) 37.2 % (42-52); Hemoglobin 11.6 g/dL (14.0-18.0); Immature Granulocytes # (auto) 0.01 K/uL (0.00-0.02); Immature Granulocytes % (auto) 0.2 %; Lymphocytes # (auto) 0.91 K/uL (1.2-3.4); Lymphocytes % (auto) 16.4 %; Mean Corpuscular Hemoglobin 30.8 pg (25-34); Mean Corpuscular Hgb Conc 31.2 g/dL (32-36); Mean Corpuscular Volume 98.7 fL (80-100); Mean Platelet Volume 9.5 fL (7.4-10.4); Monocytes # (auto) 0.65 K/uL (0.11-0.59); Monocytes % (auto) 11.7 %; Neutrophils % (auto) 66.8 %; Platelet Count 106 K/uL (130-400); RDW Coefficient of Variation 15.3 % (11.5-14.5); RDW Standard Deviation 54.4 fL (36.4-46.3); Red Blood Count 3.77 M/uL (4.7-6.1); White Blood Count 5.54 K/uL (4.8-10.8)
[2019-07-26 08:08] LABS: INR 1.4 (0.9-1.1); Prothrombin Time 14.4 Seconds (9.0-12.0)
[2019-07-26 08:15] LABS: Albumin Level 2.6 gm/dl (3.4-5.0); BUN Creatinine Ratio 15.7 (10-20); Calcium 8.8 mg/dl (8.5-10.1); Creatinine Clr Calc Pharmacy 65.9 ml/min; Est GFR (African American) 58.8; Est GFR (Non-African American) 50.7; Potassium 4.1 mmol/L (3.5-5.1)
[2019-07-26 08:18] LABS: Albumin Globulin Ratio 0.6 (0.9-2); Bilirubin,Total 0.4 mg/dl (0.2-1); Globulin 4.7 gm/dl (2.5-4.0); Total Protein 7.3 gm/dl (6.4-8.2)
[2019-07-26] MEDS: METOPROLOL SUCC 25MG EXT REL TAB PO SCH (08:55)
[2019-07-26] MEDS: INSULIN ASPART 100 UNITS/ML 3 ML PEN SC SCH ×2 (08:55→12:58)
[2019-07-26] MEDS ORDERED: FUROSEMIDE 20 MG TAB PO SCH (10:45)
--- NOTE | 2019-07-26 12:37 | Urology Progress Note ---
Date of Service July 26, 2019 Assessment & Plan (1) Left ureteral stone: 74 yo M POD #1 s/p left stent placement secondary to 6 mm obstructing left ureteral stone. - Tolerating stent without bother. - Creatinine improved to 1.38 today s/p left stent. - Significant hematuria is noted. Expect to improve over the next several days. Please monitor voiding. - Will arrange follow-up outpatient with our service for definitive stone management. Thank you for allowing us to participate in the acute care of Mr. Canseco. Please reconsult us with additional questions, concerns or changes in patient status. Subjective 74 yo M POD #1 s/p left stent placement secondary to 6 mm obstructing left ureteral stone. Patient awake, sitting up in bed. Offers no complaints today. Tolerating stent without bother. Voiding spontaneously. +Hematuria. No dysuria or urgency. Creatinine 1.38. Review of Systems Review of Systems: All systems reviewed & are unremarkable except as noted in HPI & below Physical Exam Physical Exam: NAD AOx3 No respiratory distress, O2 3L via NC Abd soft, nondistended Voiding spontaneously, dark red urine in urinal Bilateral lower extremity edema Results & Data Vital Signs (Past 12 Hours) Vital Signs Temp Pulse Resp BP Pulse Ox 07/26/19 11:02 36.8 C 74 18 114/58 L 94 07/26/19 07:43 36.6 C 67 20 111/69 97 07/26/19 04:00 36.8 C 75 18 144/85 H 98 PG Care Time/CCT Total # of Minutes Spent Total Time Spent with Patient: Total time spent is greater than 50% in coordination of care (as documented) at patient's floor/unit and/or counseling patient:
[2019-07-26 14:21] LABS: Basophils # (auto) 0.01 K/uL (0-0.2); Basophils % (auto) 0.2 %; Eosinophils # (auto) 0.23 K/uL (0-0.5); Eosinophils % (auto) 4.1 %; Hematocrit (blood only) 38.3 % (42-52); Hemoglobin 12.2 g/dL (14.0-18.0); Lymphocytes # (auto) 0.73 K/uL (1.2-3.4); Mean Corpuscular Hemoglobin 31.4 pg (25-34); Mean Corpuscular Hgb Conc 31.9 g/dL (32-36); Mean Corpuscular Volume 98.7 fL (80-100); Mean Platelet Volume 10.5 fL (7.4-10.4); Monocytes # (auto) 0.61 K/uL (0.11-0.59); Monocytes % (auto) 10.8 %; Neutrophils # (auto) 4.05 K/uL (1.4-6.5); Neutrophils % (auto) 71.9 %; Platelet Count 128 K/uL (130-400); RDW Coefficient of Variation 15.3 % (11.5-14.5); RDW Standard Deviation 54.2 fL (36.4-46.3); Red Blood Count 3.88 M/uL (4.7-6.1); White Blood Count 5.63 K/uL (4.8-10.8)
--- NOTE | 2019-07-26 14:40 | Hospitalist Progress Note ---
Date of Service July 26, 2019 Assessment & Plan (1) CHF (congestive heart failure): ACUTE ON CHRONIC SYSTOLIC CONGESTIVE HEART FAILURE -While patient was admitted with urology findings of 6 mm left ureteral stone, patient also found to have bilateral lower extremity edema and pulmonary co ngestion on admission CXR from chronic systolic congestive heart failure -chronic systolic heart failure secondary to ischemic cardiomyopathy (EF 45-49%, TTE 2018) -Lasix with albumin was given x 1 on admission; additional Lasix 40 mg IV x 1 given 07/23/2019 -telemetry monitoring without acute events as of 07/23/2019 and patient transferred off telemetry -diuresis was held due to renal function -patient may resume home dose furosemide on discharge as renal function returns to baseline after kidney stone removal Kidney stone: -74 year old male who presented to the emergency department on 07/22/2019 for symptoms of upper left-sided achy abdominal pain going to the back with nausea, without emesis -CT scan that showed an approximately 6 cm proximal left ureteral stone -KUB in the AM of 07/24/2019: Mild left hydroureteronephrosis with suspected progression of the obstructing left ureteral calculus now within the left mid ureter. Nonobstructing right nephrolithiasis. -[facility] initially attempted conservative nonoperative management -[facility] service agreed to do Cystoscopy with Left Retrograde pyelogram with Left ureteral Stent Placement on 07/25/2019 after no improvements on 07/25/2019 KUB. drainage of cloudy urine with debris was seen by urologist after left ureteral stent placement . -Hematuria (Blood in urine) is noted afterwards . Expect to improve over the n ext several days as per [facility]. Please monitor voiding. ([facility] plans to arrange outpatient followup clinic locations for [facility] - [address] [place] [address] Patient may resume home dose coumadin (warfarin). Patient should stop taking aspirin until hematuria (Blood in urine) resolves Patient should have repeat blood counts and INR level checked by primary care doctor. discharge INR is 1.4 and Hemoglobin 12.2 on 07/26/2019 Other follow up appointments 07/31/2019 11:20 AM Provider Ron Mortensen DO Department General Internal Medicine [facility] 08/02/2019 11:00 AM Provider Tk Suarez Jr., DO Department Cardiology, [facility] 08/28/2019 1:45 PM Provider Eric Welsh [facility] Department Cardiology, [facility]) urinary tract infection was suspected -was started on ceftriaxone in the ER on 07/22/2019 -admission urine analysis however has no bacteria; ceftriaxone stopped on 07/24/2019 as urinary tract infection ruled out at the time there was no immediate plans from [facility] urology service to do intervention -07/25/2019 ceftriaxone and then cefazolin was given pre-operatively of the cystoscopy Acute Kidney Injury on Chronic Kidney Disease -creatinine increased to 1.9 as of afternoon 07/24/2019 labs, creatinine rising likely from Lasix -normal saline IV fluids 250 cc given -creatinine better after cystoscopy performed on 07/25/2019 Hypertension -continue metoprolol History of CAD/CVA as per records Presence of Pacemaker -management as above -continue metoprolol History of thromboembolism -patient reports blood clots were 2 year ago and has then been on chronic coumadin anticoagulation -coumadin generally was held during hospital stay while awaiting urology intervention, patient did get a dose of coumadin on 07/24/2019 when no intervention was thought to have been needed -continue to hold coumadin after cystoscopy on 07/25/2019 -can consider resumption of coumadin for 07/26/2019 chronic respiratory failure secondary to COPD on home O2, oxygenation at baseline -Patient averse to MDI/neb treatment for wheezing with hx of choking side effects attributed to medications. 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 assisted use of insulin -hemoglobin A1c of 7.17 May 2019 -patient can resume home dose insulin on discharge Discharge Diagnosis ACUTE ON CHRONIC SYSTOLIC CONGESTIVE HEART FAILURE, Acute Kidney Injury on Chronic Kidney Disease, Kidney stone, Acute Kidney Injury on Chronic Kidney Disease, chronic respiratory failure, Hematuria Subjective Patient has hematuria. but no dizziness. no pain with urination. no fevers. no abdominal pain. no chest pain. breathing is baseline. patient wishes to go home. discharge plans discussed and repeat Hgb priyanka Review of Systems Review of Systems: All systems reviewed & are unremarkable except as noted in HPI & below Physical Exam Constitutional: comfortable Eyes: PERRL, conjunctivae normal, anicteric sclerae EOM intact bilaterally ENMT: external ear and nose normal, oropharynx normal Neck: normal visual inspection Respiratory: normal respiratory effort Cardiovascular: Rate/Rhythm: regular rate and regular rhythm Gastrointestinal (Abdomen): normal bowel sounds, soft, nontender, no hepatosplenomegaly Musculoskeletal: Head/Neck/Chest: normocephalic and head atraumatic Neurologic: PERRL, EOMI, accommodation nl, no face palsy, no dysarthria CN's II-XI intact bilaterally Psychiatric: A+Ox3, euthymic affect Results & Data Vital Signs (Past 12 Hours) Vital Signs Temp Pulse Resp BP Pulse Ox 07/26/19 11:02 36.8 C 74 18 114/58 L 94 07/26/19 07:43 36.6 C 67 20 111/69 97 07/26/19 04:00 36.8 C 75 18 144/85 H 98
--- NOTE | 2019-07-26 14:49 | Discharge Summary ---
Date of Service July 26, 2019 Admission HPI Per Admitting Provider History obtained from patient and records. Medical history significant for chronic respiratory failure secondary to COPD on home O2, past tobacco abuse, chronic systolic heart failure secondary to ischemic cardiomyopathy (EF 45-49%, TTE 2019), hx CAD/CVA as per records, SSS sp PPM/PE on coumadin, hypertension, DM2 insulin requiring, history of MGUS, CRI (baseline creatinine 1.3-1.4). History urolithiasis. Recent confinement March for aspiration pneumonitis. 1 day history of upper left-sided achy abdominal pain going to the back with nausea, without emesis. No fever, no chills, no hematuria. No chest pain. Usual dry cough symptoms. Usual S OB, leg swelling, wheezing symptoms. At the ER, patient received IV Ceftriaxone for complicated UTI. MEDICAL HISTORY: As above. SURGERIES: PPM, mediastinal/thoracic procedures for pericardial effusion, tonsillectomy, toe amputation, cholecystectomy, urologic procedure FAMILY HISTORY: Heart disease, hypertension and diabetes. PERSONAL AND SOCIAL HISTORY: Past tobacco abuse. No chronic intake of alcoholic beverages. [employer]. Admission Exam Per Admitting Provider GENERAL: uncomfortable, slightly anxious, intermittent respiratory distress, audible expiratory wheezing, obese SKIN: Pallor , warm HEENT: Pale palpebral conjunctivae, partial alopecia, no ptosis, dry buccal mucosa, nasal cannula in place NECK : Supple, short neck, no tenderness CHEST : Decreased breath sounds, diffuse expiratory wheezes, no tenderness HEART : RRR, no obvious murmurs ABDOMEN: Some distention, nontender BACK : Left flank tenderness EXTREMITIES : Bilateral LE swelling, no LE tenderness, no other conspicuous deformities noted NEUROLOGIC : Coherent, no facial asymmetry, no other gross focality Principal Diagnosis ACUTE ON CHRONIC SYSTOLIC CONGESTIVE HEART FAILURE, Acute Kidney Injury on Chronic Kidney Disease, Kidney stone, Acute Kidney Injury on Chronic Kidney Disease, chronic respiratory failure, Hematuria Discharge Exam Constitutional comfortable Eyes PERRL, conjunctivae normal, anicteric sclerae EOM intact bilaterally ENMT external ear and nose normal, oropharynx normal Neck normal visual inspection Respiratory normal respiratory effort Cardiovascular Rate/Rhythm: regular rate and regular rhythm Gastrointestinal (Abdomen) normal bowel sounds, soft, nontender, no hepatosplenomegaly Musculoskeletal Head/Neck/Chest: normocephalic and head atraumatic Neurologic PERRL, EOMI, accommodation nl, no face palsy, no dysarthria CN's II-XI intact bilaterally Psychiatric A+Ox3, euthymic affect Discharge Data Allergies Allergy/AdvReac Type Severity Reaction Status Date / Time albuterol Allergy Severe CHOKING Verified 07/22/19 17:24 SENSATION ipratropium Allergy Severe CHOKING Verified 07/22/19 17:24 SENSATION onion Allergy Intermediate RASH Verified 07/22/19 17:24 levofloxacin Allergy Mild other Verified 07/22/19 17:24 atorvastatin AdvReac Intermediate Muscle Pain Verified 07/22/19 17:24 metformin AdvReac Intermediate Diarrhea Verified 07/22/19 17:24 Consultations 07/22/19 20:27 ED Decision to Admit Stat 07/23/19 00:22 Consult Cardiology Routine Consult Urology Routine Procedures Performed Operation Date: 07/25/19 08:30 Actual Procedures p Left ureteral Stent Placement(Left) - Guzman Antonio MD s Cystoscopy, Left Retrograde pyelogram(Left) - Guzman Antonio MD Ordered Studies 07/22/19 16:19 CT abd pelvis IV con only Stat 07/25/19 16:21 FL fluoroscopy <1hr Routine FL retrograde includes kub Routine Hospital Course (1) CHF (congestive heart failure): ACUTE ON CHRONIC SYSTOLIC CONGESTIVE HEART FAILURE -While patient was admitted with urology findings of 6 mm left ureteral stone, patient also found to have bilateral lower extremity edema and pulmonary congestion on admission CXR from chronic systolic congestive heart failure -chronic systolic heart failure secondary to ischemic cardiomyopathy (EF 45-49%, TTE 2018) -Lasix with albumin was given x 1 on admission; additional Lasix 40 mg IV x 1 given 07/23/2019 -telemetry monitoring without acute events as of 07/23/2019 and patient transferred off telemetry -diuresis was held due to renal function -patient may resume home dose furosemide on discharge as renal function returns to baseline after kidney stone removal Kidney stone: -74 year old male who presented to the emergency department on 07/22/2019 for symptoms of upper left-sided achy abdominal pain going to the back with nausea, without emesis -CT scan that showed an approximately 6 cm proximal left ureteral stone -KUB in the AM of 07/24/2019: Mild left hydroureteronephrosis with suspected progression of the obstructing left ureteral calculus now within the left mid ureter. Nonobstructing right nephrolithiasis. -[facility] initially attempted conservative nonoperative management -[facility] service agreed to do Cystoscopy with Left Retrograde pyelogram with Left ureteral Stent Placement on 07/25/2019 after no improvements on 07/25/2019 KUB. drainage of cloudy urine with debris was seen by urologist after left ureteral stent placement . -Hematuria (Blood in urine) is noted afterwards . Expect to improve over the next several days as per [facility]. Please monitor voiding. ([facility] plans to arrange outpatient followup clinic locations for [facility] [place] [id number] Patient may resume home dose coumadin (warfarin). Patient should stop taking aspirin until hematuria (Blood in urine) resolves Patient should have repeat blood counts and INR level checked by primary care doctor. discharge INR is 1.4 and Hemoglobin 12.2 on 07/26/2019 Other follow up appointments 07/31/2019 11:20 AM Provider Ron Mortensen DO Department General Internal Medicine [facility] 08/02/2019 11:00 AM Provider Tk Suarez Jr., DO Department Cardiology, [facility] 08/28/2019 1:45 PM [address] Eric [address] [facility] Department Cardiology, [facility]) urinary tract infection was suspected -was started on ceftriaxone in the ER on 07/22/2019 -admission urine analysis however has no bacteria; ceftriaxone stopped on 07/24/2019 as urinary tract infection ruled out at the time there was no immediate plans from [facility] urology service to do intervention -07/25/2019 ceftriaxone and then cefazolin was given pre-operatively of the cystoscopy Acute Kidney Injury on Chronic Kidney Disease -creatinine increased to 1.9 as of afternoon 07/24/2019 labs, creatinine rising likely from Lasix -normal saline IV fluids 250 cc given -creatinine better after cystoscopy performed on 07/25/2019 Hypertension -continue metoprolol History of CAD/CVA as per records Presence of Pacemaker -management as above -continue metoprolol History of thromboembolism -patient reports blood clots were 2 year ago and has then been on chronic c oumadin anticoagulation -coumadin generally was held during hospital stay while awaiting urology intervention, patient did get a dose of coumadin on 07/24/2019 when no intervention was thought to have been needed -continue to hold coumadin after cystoscopy on 07/25/2019 -can consider resumption of coumadin for 07/26/2019 chronic respiratory failure secondary to COPD on home O2, oxygenation at baseline -Patient averse to MDI/neb treatment for wheezing with hx of choking side effects attributed to medications. 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 -hemoglobin A1c of 7.17 May 2019 -patient can resume home dose insulin on discharge Discharge Diagnosis ACUTE ON CHRONIC SYSTOLIC CONGESTIVE HEART FAILURE, Acute Kidney Injury on Chronic Kidney Disease, Kidney stone, Acute Kidney Injury on Chronic Kidney Disease, chronic respiratory failure, Hematuria Total Time Total Time Spent Total Time Spent (In Minutes): 40 minutes Total Time Includes: Examination of the Patient, Discharge Planning, Medication Reconciliation and Communication With Other Providers Discharge Plan Discharge Items Patient Disposition: Home - Self-Care Reason For Visit: CHF,OBSTRUCTIVE UROPATHY Discharge Diagnosis: Acute Kidney Injury on Chronic Kidney Disease, Kidney stone, Acute Kidney Injury on Chronic Kidney Disease, chronic respiratory failure, Hematuria, ACUTE ON CHRONIC SYSTOLIC CONGESTIVE HEART FAILURE Condition on Discharge: Good Activity: Resume your previous activity Non-emergency contact: Primary Care Provider, Assistant Brand Manager and Urologist Call non-emergency contact if: you have any medication questions Follow-up/Referrals: Ron Mortensen DO [Primary Care Provider] - Diet: Heart Healthy and Low Sodium (2gm) Addtl Attending Provider Instructions: Cystoscopy with Left Retrograde pyelogram with Left ureteral Stent Placement on 07/25/2019 Hematuria (Blood in urine) is noted afterwards . Expect to improve over the next several days as per [facility]. Please monitor voiding. [facility] plans to arrange outpatient followup clinic locations for [facility] [address] Patient may resume home dose coumadin (warfarin). Patient should stop taking aspirin until hematuria (Blood in urine) resolves Patient should have repeat blood counts and INR level checked by primary care doctor. discharge INR is 1.4 and Hemoglobin 12.2 on 07/26/2019 Other follow up appointments 07/31/2019 11:20 AM Provider Ron Mortensen DO Department General Internal Medicine [facility] 08/02/2019 11:00 AM Provider Tk Suarez Jr., DO Department Cardiology, [facility] 08/28/2019 1:45 PM Provider Eric Welsh [facility] Department Cardiology, [facility] Addyvette Transportation Planning Engineer Provider Instructions: Call your Primary Care doctor if any of the following symptoms or problems start or get worse: * Shortness of breath or difficulty breathing * Wake up at night short of breath * Chest pain * Cough * Swelling of your hands, feet, or legs * More fatigued or tired with your normal activity * Palpitations - sudden fast heart beats WEIGHT * Weigh yourself every morning after using the bathroom. * Use the same scale. * Wear the same amount of clothing. * Write your weight down on a chart. * Call your Primary Care doctor if you gain more than 2-3 pounds in 1-2 days. MEDICATIONS * Use this discharge instruction sheet for medication instructions. * Take your medications at the time your doctor ordered. * Do not skip a dose of your medicines. * If you miss a dose of medicine, take it as soon as possible, but DO NOT DOUBLE A DOSE. * Read your medicine information when you get home. * Know all of the side effects of your medicine. If in doubt, ask your pharmacist * Call your Primary Care doctor's office if you have any side effects. * Be sure all of your doctors know what medicine and herbs you take (including cold, flu, and herbal medicine). Take the following with you to your follow-up doctor appointments: * Weight Chart * Medication List * List of questions Do not drink excessive alcohol, beer or wine. Pending Studies at Discharge: No Stand-Alone Forms: Call Back Authorization, [facility], Smoking Cessation Medications and DC Order Prescriptions: Continued primidone 250 mg Tablet 500 mg PO HS RF: 0 ranitidine HCl 150 mg tablet 150 mg PO BID RF: 0 nitroglycerin 0.4 mg Tablet, Sublingual 0.4 mg Sublingual UD RF: 0 montelukast 10 mg Tablet 10 mg PO PM RF: 0 allopurinol 300 mg Tablet 300 mg PO DAILY RF: 0 furosemide 20 mg tablet 40 mg PO DAILY RF: 0 metoprolol succinate 25 mg tablet extended release 24 hr 12.5 mg PO DAILY RF: 0 Novolog PenFill U-100 Insulin 100 unit/mL Cartridge 1 sliding scale dose SUBCUT AC RF: 0 rosuvastatin 40 mg Tablet 40 mg PO HS RF: 0 Lantus Solostar U-100 Insulin 100 unit/mL (3 mL) Insulin Pen 26 unit SUBCUT HS RF: 0 ferrous sulfate 325 mg (65 mg iron) Tablet 325 mg PO Q2D RF: 0 ondansetron HCl [Zofran] 4 mg tablet 4 mg PO Q6 PRN (Reason: nausea and vomiting) Qty: 6 RF: 0 bisacodyl 10 mg Suppository 10 mg MS DAILY PRN (Reason: Constipation) RF: 0 docusate sodium [Colace] 100 mg Capsule 100 mg PO BID PRN (Reason: Constipation) RF: 0 warfarin [Jantoven] 2 mg tablet 4 mg PO MOWEFR RF: 0 warfarin 2 mg Tablet 6 mg PO SUTUTHSA RF: 0 Discontinued aspirin 325 mg Tablet 325 mg PO QPM RF: 0 Discharge Orders: Discharge Order (Routine); Ordered 07/26/19 Ordered By: Michael Macario Admission Data Admit Date/Time: 07/22/19 21:58 Attending Provider: Michael Macario Admit Provider: Mustapha Jiménez Primary Care Provider: Ron Mortensen Other Providers: Mustapha Jiménez ; Tk Suarez ; Ruben Vasques
== END 2019-07-26 15:49 | disposition home or self-care (01) | DRG 659 ==
LOC: ED 16:09 → SUATTDRO 21:58 → 2S 21:58 → 2W 07-23 15:08

== ENCOUNTER 2020-01-22 11:10 | Inpatient (IN) ==
[2020-01-22] MEDS ORDERED: SODIUM CHLORIDE 0.9% 1000ML 500 ML IV ONE (12:24)
--- NOTE | 2020-01-22 12:29 | Emergency Department Note ---
Impression & Plan Cellulitis of left foot, Failure of outpatient treatment, Elevated CO2 level, Pedal edema ED Provider Note NAME: DARREL ETIENNE AGE: 74 SEX: M : 1945 ARRIVES VIA: Ambulance INFORMANT: [Patient][wound center] ED PROVIDER(S): [John Stone MD] CHIEF COMPLAINT: Left foot infection HISTORY OF PRESENT ILLNESS: The patient is a 74-year-old male who was sent to this ED by the wound center. They have been following a wound on his left heel. Today, they noticed a ganesh of bone with debridement and they are concerned about osteomyelitis. He was sent to the ER for IV antibiotic therapy. The patient is not currently on antibiotics. He has chronic lower extremity edema and skin changes. He has in the past grown out MRSA from his wounds. The patient denies any real pain. He has not had fevers or chills. The patient does wear oxygen chronically because of his COPD. He has had surgical work on the left foot already because of issues with infection. REVIEW OF SYSTEMS: See HPI for pertinent positives and negatives. A total of ten systems were reviewed and were otherwise negative. PMHx/PSHx: See Below SOCIAL HISTORY: See Below. PHYSICAL EXAM: GENERAL: Patient is in no acute distress. HEENT: No acute trauma, normocephalic atraumatic, mucous membranes moist, no nasal congestion, no scleral icterus. NECK: No stridor, no adenopathy, no meningismus, trachea is midline. LUNGS: Wheezing bilaterally, breath sounds equal, no respiratory distress. HEART: Seems to have a regular rhythm although, listening to the heart is difficult with all of the wheezing. ABDOMEN: Soft, nontender, bowel sounds positive, no hernias, no peritonitis. EXTREMITIES: Bilateral pedal edema with chronic skin change. The patient has some erythema and warmth to the left lower extremity. There is a deep wound to the left heel. There is some surrounding erythema. There is scant drainage. NEUROLOGIC: Oriented x 3, no acute motor or sensory deficits, no focal weakness. SKIN: No rash, no jaundice, no diaphoresis. DIFFERENTIAL DIAGNOSIS: Sepsis, UTI, pneumonia, metabolic, electrolyte abnormalities, cardiac sources, cellulitis, osteomyelitis, failed outpatient treatment, intracerebral event, toxicologic, neurologic, as well as other pathologies. EMERGENCY DEPARTMENT COURSE/PROCEDURES: ECG: Indication was weakness. The ECG shows a sinus rhythm with a first- degree AV block. There is a rate of 82. The QTc is 427. There is no ST elevation, no PVCs. There is poor R wave progression. Continuous Cardiac Monitoring: An order was placed for continuous cardiac monitoring. The monitor shows a rate of 85 with sinus rhythm with a first- degree AV block. MEDICAL DECISION MAKING: There is no leukocytosis. The patient is anemic with a hemoglobin of 12.7. Looking back at previous testing, the anemia is chronic. There is a normal platelet count. INR is elevated consistent with his Coumadin use. Renal panel testing does not show any acute renal injury however, the patient's CO2 value is high. His CO2 has been elevated before however, today's value is higher than his typical baseline. BNP was elevated at 1600, this is consistent with fluid overload. Alk phos was slightly elevated, the bilirubin was normal. Lactic acid level is not elevated making sepsis less likely. Procalcitonin level was normal. Chest film shows some congestion at the bases and some pleural effusions. The effusions appear to have progressed when compared to previous films. Left foot CT scan does not show osteomyelitis, a deep wound and cellulitis was seen. A culture of the wound was obtained and the result is pending. ECG shows a sinus rhythm with a first-degree AV block, no acute ischemia. The patient was given IV daptomycin and IV ertapenem as empiric antibiotic coverage. He received a small 500 cc saline bolus. The patient presents from the wound center for a worsening of his left foot wound. He was felt in need of a hospital stay given his outpatient treatment failure. The patient is currently resting comfortably without complaints. I did speak to the patient about his findings, I spoke with case operator. The on-call hospitalist has been consulted. Past Med/Surg History Medical History Bronchiectasis Chronic kidney disease stage 3 Chronic left ventricular systolic heart failure COPD (chronic obstructive pulmonary disease) Coronary artery disease "S/P inferior [place], severe multivessel disease not amenable to intervention" per 2012 cath Diabetes mellitus, type 2 IDDM GERD (gastroesophageal reflux disease) Gout Hearing deficit BL KOO History of CVA (cerebrovascular accident) "YEARS AGO" - reports he has had a tremor ever since stroke. denies additional residual effects History of depression History of DVT (deep vein thrombosis) "YEARS AGO" ETIOLOGY UNK - ON WARFARIN History of pancreatitis History of pulmonary embolism on residential coumadin History of tachycardia-bradycardia syndrome HLD (hyperlipidemia) Ischemic cardiomyopathy EF 45-49% Myocardial Infarction "YEARS AGO" Nephrolithiasis On home oxygen therapy 2 LPM DAILY PRN (secondary to chronic respiratory failure) Osteoarthritis PAD (peripheral artery disease) PAF (paroxysmal atrial fibrillation) DX "years ago" - ON COUMADIN - FOLLOWS W/ DR. ROYCE Rasmussen historian Seizure QUESTIONABLE- EEG 1 WEEK AGO FOR QUESTIONABLE SEIZURE (reported convulsions, loss of consciousness 1 week ago while watching TV) - [place] [facility] - EEG unremarkable Tremor Surgical History H/O toe surgery "amputation left 3rd and 4th toe 03/2012" History of bronchoscopy History of cardiac cath MULTIPLE - NO STENTS [place] (could not recall dates - most recent in system is from 2011 [place]) History of cholecystectomy History of incision of pericardium pericardial window secondary to pericardial effusion History of pacemaker PLACED 10/2017 FOR [employer]OME - New KCBXTRONIC - LAST CHECKED 05/2019 History of tonsillectomy S/P cystoscopy with ureteral stent placement 07/25/2019 [facility] Status post creation of pericardial window Family History Mother Alzheimer disease Social History Preferred Language: Belarusian Communication Ability: Effective High Man Required: No Beliefs That Will Affect Care: None marital status: Current Living Situation: Spouse current occupation: Formally employed by [employer] with nickel and 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 Quit in 1971 ; Second Hand Exposure: Yes (PREVIOUS EXPOSURE IN THE WORKPLACE) ; Hx Alcohol Use: Yes Alcohol type: beer and hard liquor Hx Substance Use: No Allergies Allergies Allergy/AdvReac Type Severity Reaction Status Date / Time albuterol Allergy Severe CHOKING Verified 01/15/20 09:18 SENSATION ipratropium Allergy Severe CHOKING Verified 01/15/20 09:18 SENSATION onion Allergy Intermediate RASH Verified 01/15/20 09:18 levofloxacin Allergy Mild other Verified 01/15/20 09:18 atorvastatin AdvReac Intermediate Muscle Pain Verified 01/15/20 09:18 metformin AdvReac Intermediate Diarrhea Verified 01/15/20 09:18 Home Meds Home Medications Medication Instructions Recorded Confirmed Lantus Solostar U-100 Insulin 26 unit SUBCUT HS 04/11/18 01/22/20 allopurinol [Zyloprim] 300 mg PO QPM 04/11/18 01/22/20 insulin aspart U-100 [Novolog 1 sliding scale dose SUBCUT AC 04/11/18 01/22/20 PenFill U-100 Insulin] montelukast [Singulair] 10 mg PO PM 04/11/18 01/22/20 nitroglycerin 0.4 mg SUBLINGUAL UD PRN 04/11/18 01/22/20 primidone [Mysoline] 500 mg PO HS 04/11/18 01/22/20 rosuvastatin [Crestor] 40 mg PO HS 04/11/18 01/22/20 warfarin [Jantoven] 4 mg PO MOWEFR 10/14/18 01/22/20 warfarin 6 mg PO SUTUTHSA 01/10/19 01/22/20 aspirin 325 mg PO HS 08/08/19 01/22/20 metoprolol succinate 25 mg PO QPM 08/08/19 01/22/20 furosemide 20 mg tablet 40 mg PO BID tab 11/27/19 01/22/20 ferrous sulfate [iron] 325 mg PO Q OTHER DAY 01/09/20 01/22/20 Results & Data (ED) Vital Signs Vital Signs - 24 hr 01/22/20 11:20 01/22/20 12:25 01/22/20 12:30 Temperature 36.5 C Temperature Source Oral Pulse Rate 79 83 Pulse Rate [Apical] Pulse Rate from SpO2 Sensor 83 Pulse Rhythm Regular Pulse Strength Normal Respiratory Rate 22 20 Respiratory Effort / Characteristics Non-Labored Spontaneous Normal for Patient Respiratory Depth Normal Respiratory Pattern Regular Blood Pressure 159/91 H 156/83 H Blood Pressure [Right Arm] Blood Pressure Mean 113 123 Blood Pressure Mean [Right Arm] Blood Pressure Position Lying Blood Pressure Position [Right Arm] Pulse Oximetry 99 99 100 Oxygen Delivery Method Nasal Cannula Nasal Cannula Nasal Cannula Oxygen Flow Rate 2 2 2 Sepsis Recent Fever Within 48 Hours No Sepsis New/Unexplained Change in Mental Status No Sepsis Action Taken by Nursing No Action Required 01/22/20 12:58 01/22/20 13:31 01/22/20 14:00 Temperature Temperature Source Pulse Rate 85 Pulse Rate [Apical] 83 Pulse Rate from SpO2 Sensor 85 Pulse Rhythm Pulse Strength Respiratory Rate 21 19 Respiratory Effort / Characteristics Non-Labored Spontaneous Normal for Patient Respiratory Depth Normal Respiratory Pattern Regular Blood Pressure 173/78 H 155/84 H Blood Pressure [Right Arm] 156/83 H Blood Pressure Mean 90 115 Blood Pressure Mean [Right Arm] 107 Blood Pressure Position Blood Pressure Position [Right Arm] Lying Pulse Oximetry 100 100 100 Oxygen Delivery Method Nasal Cannula Nasal Cannula Nasal Cannula Oxygen Flow Rate 2 2 2 Sepsis Recent Fever Within 48 Hours Sepsis New/Unexplained Change in Mental Status Sepsis Action Taken by Nursing 01/22/20 14:30 01/22/20 14:31 01/22/20 15:01 Temperature Temperature Source Pulse Rate 85 85 Pulse Rate [Apical] Pulse Rate from SpO2 Sensor 85 85 91 H Pulse Rhythm Pulse Strength Respiratory Rate 15 18 21 Respiratory Effort / Characteristics Respiratory Depth Respiratory Pattern Blood Pressure 171/84 H 138/97 Blood Pressure [Right Arm] Blood Pressure Mean 106 116 Blood Pressure Mean [Right Arm] Blood Pressure Position Blood Pressure Position [Right Arm] Pulse Oximetry 97 97 99 Oxygen Delivery Method Nasal Cannula Oxygen Flow Rate 2 Sepsis Recent Fever Within 48 Hours Sepsis New/Unexplained Change in Mental Status Sepsis Action Taken by [facility] Medications Current Medication List: was personally reviewed by me Laboratory Data Attestation: I reviewed the patient's lab results. Result diagrams: 01/22/20 12:48 01/22/20 12:48 Lab Results 01/22/20 01/22/20 01/22/20 Range/Units 12:48 12:48 12:48 WBC 5.85 (4.8-10.8) K/uL RBC 4.10 L (4.7-6.1) M/uL Hgb 12.7 L (14.0-18.0) g/dL Hct 41.2 L (42-52) % MCV 100.5 H (80-100) fL MCH 31.0 (25-34) pg MCHC 30.8 L (32-36) g/dL RDW Std Deviation 61.2 H (36.4-46.3) fL RDW Coeff of Lizet 16.5 H (11.5-14.5) % Plt Count 151 (130-400) K/uL MPV 9.7 (7.4-10.4) fL Immature Gran % (Auto) 0.2 % Neut % (Auto) 73.2 % Lymph % (Auto) 12.5 % [place] % (Auto) 10.6 % Eos % (Auto) 3.2 % Baso % (Auto) 0.3 % Neut # (Auto) 4.28 (1.4-6.5) K/uL Lymph # (Auto) 0.73 L (1.2-3.4) K/uL [place] # (Auto) 0.62 H (0.11-0.59) K/uL Eos # (Auto) 0.19 (0-0.5) K/uL Baso # (Auto) 0.02 (0-0.2) K/uL Immature Gran # (Auto) 0.01 (0.00-0.02) K/uL ESR (0-14) mm/hr PT 19.8 H (9.0-12.0) Seconds INR 1.9 H (0.9-1.1) APTT 40.2 H (21.0-31.0) Seconds PTT Ratio 1.4 Sodium (136-145) mmol/L Potassium (3.5-5.1) mmol/L Chloride (98-107) mmol/L Carbon Dioxide (21-32) mmol/L Anion Gap (3-11) BUN (7-18) mg/dl Creatinine (0.6-1.4) mg/dl Est Cr Clr Drug Dosing ml/min Est GFR ( Amer) Est GFR (Non-Af Amer) BUN/Creatinine Ratio (10-20) Glucose (70-99) mg/dl Lactate (0.4-2.0) mmol/L Calcium (8.5-10.1) mg/dl Magnesium (1.8-2.4) mg/dl Total Bilirubin (0.2-1) mg/dl AST (15-37) U/L ALT (12-78) U/L Alkaline Phosphatase (45-117) U/L Total Creatine Kinase (39-308) U/L C-Reactive Protein (0-0.29) mg/dl NT-Pro-B Natriuret Pep (0-900) pg/ml Total Protein (6.4-8.2) gm/dl Albumin (3.4-5.0) gm/dl Globulin (2.5-4.0) gm/dl Albumin/Globulin Ratio (0.9-2) Procalcitonin < 0.05 (0-0.5) ng/ml 01/22/20 01/22/20 01/22/20 Range/Units 12:48 12:48 12:48 WBC (4.8-10.8) K/uL RBC (4.7-6.1) M/uL Hgb (14.0-18.0) g/dL Hct (42-52) % MCV (80-100) fL MCH (25-34) pg MCHC (32-36) g/dL RDW Std Deviation (36.4-46.3) fL RDW Coeff of Lizet (11.5-14.5) % Plt Count (130-400) K/uL MPV (7.4-10.4) fL Immature Gran % (Auto) % Neut % (Auto) % Lymph % (Auto) % [place] % (Auto) % Eos % (Auto) % Baso % (Auto) % Neut # (Auto) (1.4-6.5) K/uL Lymph # (Auto) (1.2-3.4) K/uL [place] # (Auto) (0.11-0.59) K/uL Eos # (Auto) (0-0.5) K/uL Baso # (Auto) (0-0.2) K/uL Immature Gran # (Auto) (0.00-0.02) K/uL ESR > 90 H (0-14) mm/hr PT (9.0-12.0) Seconds INR (0.9-1.1) APTT (21.0-31.0) Seconds PTT Ratio Sodium 138 (136-145) mmol/L Potassium 3.9 (3.5-5.1) mmol/L Chloride 97 L (98-107) mmol/L Carbon Dioxide 41 H* (21-32) mmol/L Anion Gap 1.0 L (3-11) BUN 9 (7-18) mg/dl Creatinine 0.92 (0.6-1.4) mg/dl Est Cr Clr Drug Dosing 96.7 ml/min Est GFR ( Amer) 96.0 Est GFR (Non-Af Amer) 82.8 BUN/Creatinine Ratio 10.1 (10-20) Glucose 97 (70-99) mg/dl Lactate 1.1 (0.4-2.0) mmol/L Calcium 8.9 (8.5-10.1) mg/dl Magnesium 1.8 (1.8-2.4) mg/dl Total Bilirubin 0.4 (0.2-1) mg/dl AST 16 (15-37) U/L ALT 12 (12-78) U/L Alkaline Phosphatase 123 H (45-117) U/L Total Creatine Kinase (39-308) U/L C-Reactive Protein (0-0.29) mg/dl NT-Pro-B Natriuret Pep (0-900) pg/ml Total Protein 8.1 (6.4-8.2) gm/dl Albumin 2.9 L (3.4-5.0) gm/dl Globulin 5.2 H (2.5-4.0) gm/dl Albumin/Globulin Ratio 0.6 L (0.9-2) Procalcitonin (0-0.5) ng/ml 01/22/20 Range/Units 12:48 WBC (4.8-10.8) K/uL RBC (4.7-6.1) M/uL Hgb (14.0-18.0) g/dL Hct (42-52) % MCV (80-100) fL MCH (25-34) pg MCHC (32-36) g/dL RDW Std Deviation (36.4-46.3) fL RDW Coeff of Lizet (11.5-14.5) % Plt Count (130-400) K/uL MPV (7.4-10.4) fL Immature Gran % (Auto) % Neut % (Auto) % Lymph % (Auto) % [place] % (Auto) % Eos % (Auto) % Baso % (Auto) % Neut # (Auto) (1.4-6.5) K/uL Lymph # (Auto) (1.2-3.4) K/uL [place] # (Auto) (0.11-0.59) K/uL Eos # (Auto) (0-0.5) K/uL Baso # (Auto) (0-0.2) K/uL Immature Gran # (Auto) (0.00-0.02) K/uL ESR (0-14) mm/hr PT (9.0-12.0) Seconds INR (0.9-1.1) APTT (21.0-31.0) Seconds PTT Ratio Sodium (136-145) mmol/L Potassium (3.5-5.1) mmol/L Chloride (98-107) mmol/L Carbon Dioxide (21-32) mmol/L Anion Gap (3-11) BUN (7-18) mg/dl Creatinine (0.6-1.4) mg/dl Est Cr Clr Drug Dosing ml/min Est GFR ( Amer) Est GFR (Non-Af Amer) BUN/Creatinine Ratio (10-20) Glucose (70-99) mg/dl Lactate (0.4-2.0) mmol/L Calcium (8.5-10.1) mg/dl Magnesium (1.8-2.4) mg/dl Total Bilirubin (0.2-1) mg/dl AST (15-37) U/L ALT (12-78) U/L Alkaline Phosphatase (45-117) U/L Total Creatine Kinase 37 L (39-308) U/L C-Reactive Protein 1.55 H (0-0.29) mg/dl NT-Pro-B Natriuret Pep 1616 H (0-900) pg/ml Total Protein (6.4-8.2) gm/dl Albumin (3.4-5.0) gm/dl Globulin (2.5-4.0) gm/dl Albumin/Globulin Ratio (0.9-2) Procalcitonin (0-0.5) ng/ml Administered Medications Discontinued Medications Furosemide (Lasix) 40 mg IV NOW STA Stop: 01/22/20 15:17 Last Admin: 01/22/20 16:30 Dose: 40 mg Documented by: [id number] Sodium Chloride (Nss 1000ml) 500 mls @ 999 mls/hr IV .Q31M ONE Stop: 01/22/20 12:54 Last Infusion: 01/22/20 13:52 Dose: 0 mls/hr Documented by: [id number] Admin: 01/22/20 13:17 Dose: 999 mls/hr Documented by: [id number] Daptomycin 500 mg/ Syringe 10 mls @ 5 mls/min IV NOW STA; Protocol Stop: 01/22/20 12:32 Last Admin: 01/22/20 13:17 Dose: 5 mls/min Documented by: [id number] Ertapenem 1,000 mg/ Sodium (Chloride) 60 mls @ 100 mls/hr IV NOW STA Stop: 01/22/20 13:07 Last Infusion: 01/22/20 14:00 Dose: 0 mls/hr Documented by: [id number] Admin: 01/22/20 13:22 Dose: 100 mls/hr Documented by: [id number] Potassium Chloride (Klor-Con M20) 20 meq PO NOW STA Stop: 01/22/20 15:32 Last Admin: 01/22/20 16:40 Dose: 20 meq Documented by: [id number] Imaging Data Radiologist's Impression: XR chest 1V portable CLINICAL HISTORY: SEPSIS COMPARISON STUDY: 07/22/2019 FINDINGS: The heart is enlarged. There is a left subclavian dual-chamber central venous pacemaker. There is elevation of interstitium consistent with congestive failure. There are bilateral pleural effusions right greater than left. There are bibasilar opacity statistically atelectatic although a superimposed pneumonia could appear similar[ IMPRESSION: 1. Continued radiographic evidence of congestive failure with cardiomegaly bilateral pleural effusions and mild interstitial thickening/edema 2. Basilar airspace opacity statistically atelectatic although a superimposed pneumonia could appear similar CT foot LT wo con HISTORY: 74 years-old Male poss osteo chronic left foot pain with clinical co ncern for possible osteomyelitis. CT left foot 02/03/2012 COMPARISON: CT left foot 02/03/2012, left foot radiographs 12/10/2019, MRI left ankle 01/10/2020 TECHNIQUE: Multiple axial CT images of the left foot were obtained without the use of IV contrast. A dose lowering technique was used consistent with the principals of NELA. FINDINGS: Demineralized appearance of the bones. Partial bony fusion of the middle subtalar joint with complete osseous fusion of the posterior subtalar joint. There is moderate tibiotalar osteoarthritis. No definite osteochondral defect or intra-articular loose body identified. Moderate sized plantar and calcaneal enthesophytes of the calcaneus. The distal fifth digit is only partially imaged. There is extension of the metatarsal-phalangeal joints and flexion of the interphalangeal joints. No osseous erosions identified to suggest acute osteomyelitis. Moderate multifocal osteoarthritis. 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 Acute versus subacute nondisplaced fracture involving the fifth metatarsal neck (image 167 series 3). Bipartite medial hallux sesamoid. There is suggestion of an acute nondisplaced intra-articular fracture involving the lateral base of the first proximal phalanx, image 178 series 3. There is a cutaneous ulcer involving the plantar aspect of the hindfoot superficial to the posterior calcaneal body which measures approximately 2.1 x 1.0 cm in transverse and AP dimensions respectively. Mild degree of underlying subcutaneous emphysema with sinus tract. No drainable fluid collection. There is diffuse subcutaneous edema throughout the foot and ankle which is moderate to extensive. Arterial calcifications are noted with moderate muscular atrophy of the foot. Tendons and ligaments are grossly unremarkable, however these structures are evaluated by MRI. IMPRESSION: 1. 2.1 x 1.0 cm soft tissue ulcer of the plantar hindfoot is noted with mild deep subcutaneous emphysema correlating with the previously described soft tissue sinus tract. This extends towards the posterior calcaneal body. No osseous erosion identified at this time to suggest acute osteomyelitis. 2. No drainable fluid collection. 3. Moderate to extensive subcutaneous edema suggestive of probable cellulitis. Venous stasis or lymphedema also considered. 4. Acute versus subacute nondisplaced fractures involve the lateral base of the first proximal phalanx and fifth metatarsal neck. 5. Arterial calcifications with diffuse muscular atrophy suggestive of chronic denervation changes. 6. Prior partial amputation of the second and third digits. Blood Pressure Blood Pressure Findings: Elevated blood pressure Blood Pressure Disposition: further management by hospitalist Discharge Plan Visit Data *Final* Discharge Date/Time: 01/22/20 17:17 Chief Complaint: Wound ED Provider: John Stone Discharge Problem: Cellulitis of left foot, Failure of outpatient treatment, Elevated CO2 level, Pedal edema Patient Disposition: Admitted As Inpatient Condition: Fair Discharge Instructions Interventions: ED Discharge Assessment Last Done: 01/22/20 17:17
[2020-01-22] MEDS ORDERED: DAPTOmycin 500 MG in SYRINGE 0 ML IV STA (12:31)
[2020-01-22] MEDS ORDERED: ERTAPENEM SODIUM 1,000 MG in SODIUM CHLORIDE 0.9% 50 ML IV STA (12:32)
--- NOTE | 2020-01-22 12:52 | XRay Report ---
XR chest 1V portable CLINICAL HISTORY: SEPSIS COMPARISON STUDY: 07/22/2019 FINDINGS: The heart is enlarged. There is a left subclavian dual-chamber central venous pacemaker. Th ere is elevation of interstitium consistent with congestive failure. There are bilateral pleural effu sions right greater than left. There are bibasilar opacity statistically atelectatic although a super imposed pneumonia could appear similar[ IMPRESSION: 1. Continued radiographic evidence of congestive failure with cardiomegaly bilateral pleural effusion s and mild interstitial thickening/edema 2. Basilar airspace opacity statistically atelectatic although a superimposed pneumonia could appear similar ACT 112: Negative or not required by law. Electronically signed by: Dillon Gaspar M.D. 01/22/2020 12:51 PM
[2020-01-22 13:19] LABS: Basophils # (auto) 0.02 K/uL (0-0.2); Basophils % (auto) 0.3 %; Eosinophils # (auto) 0.19 K/uL (0-0.5); Eosinophils % (auto) 3.2 %; Hematocrit (blood only) 41.2 % (42-52); Hemoglobin 12.7 g/dL (14.0-18.0); Immature Granulocytes # (auto) 0.01 K/uL (0.00-0.02); Immature Granulocytes % (auto) 0.2 %; Lymphocytes # (auto) 0.73 K/uL (1.2-3.4); Lymphocytes % (auto) 12.5 %; Mean Corpuscular Hgb Conc 30.8 g/dL (32-36); Mean Corpuscular Volume 100.5 fL (80-100); Mean Platelet Volume 9.7 fL (7.4-10.4); Monocytes # (auto) 0.62 K/uL (0.11-0.59); Monocytes % (auto) 10.6 %; Neutrophils # (auto) 4.28 K/uL (1.4-6.5); Neutrophils % (auto) 73.2 %; Platelet Count 151 K/uL (130-400); RDW Coefficient of Variation 16.5 % (11.5-14.5); RDW Standard Deviation 61.2 fL (36.4-46.3); White Blood Count 5.85 K/uL (4.8-10.8)
[2020-01-22 13:28] LABS: INR 1.9 (0.9-1.1); Partial Thromboplastin Ratio 1.4; Partial Thromboplastin Time 40.2 Seconds (21.0-31.0); Prothrombin Time 19.8 Seconds (9.0-12.0)
[2020-01-22 13:44] LABS: Albumin Globulin Ratio 0.6 (0.9-2); Albumin Level 2.9 gm/dl (3.4-5.0); BUN Creatinine Ratio 10.1 (10-20); Bilirubin,Total 0.4 mg/dl (0.2-1); Calcium 8.9 mg/dl (8.5-10.1); Creatinine Clr Calc Pharmacy 96.7 ml/min; Est GFR (Non-African American) 82.8; Globulin 5.2 gm/dl (2.5-4.0); Magnesium 1.8 mg/dl (1.8-2.4); Potassium 3.9 mmol/L (3.5-5.1); Total Protein 8.1 gm/dl (6.4-8.2)
--- NOTE | 2020-01-22 14:10 | CT Scan Report ---
CT foot LT wo con HISTORY: 74 years-old Male poss osteo chronic left foot pain with clinical concern for possible oste omyelitis. CT left foot 02/03/2012 COMPARISON: CT left foot 02/03/2012, left foot radiographs 12/10/2019, MRI left ankle 01/10/2020 TECHNIQUE: Multiple axial CT images of the left foot were obtained without the use of IV contrast. A dose lowering technique was used consistent with the principals of NELA. FINDINGS: Demineralized appearance of the bones. Partial bony fusion of the middle subtalar joint with complete osseous fusion of the posterior subtalar joint. There is moderate tibiotalar osteoarthritis. No defi nite osteochondral defect or intra-articular loose body identified. Moderate sized plantar and calcan eal enthesophytes of the calcaneus. The distal fifth digit is only partially imaged. There is extensi on of the metatarsal-phalangeal joints and flexion of the interphalangeal joints. No osseous erosions identified to suggest acute osteomyelitis. Moderate multifocal osteoarthritis. Prior amputation of t he second and third digits at the level of the metatarsal-phalangeal joints. Acute versus subacute no ndisplaced fracture involving the fifth metatarsal neck (image 167 series 3). Bipartite medial hallux sesamoid. There is suggestion of an acute nondisplaced intra-articular fracture involving the latera l base of the first proximal phalanx, image 178 series 3. There is a cutaneous ulcer involving the plantar aspect of the hindfoot superficial to the posterior calcaneal body which measures approximately 2.1 x 1.0 cm in transverse and AP dimensions respectively . Mild degree of underlying subcutaneous emphysema with sinus tract. No drainable fluid collection. T here is diffuse subcutaneous edema throughout the foot and ankle which is moderate to extensive. Candelaria rial calcifications are noted with moderate muscular atrophy of the foot. Tendons and ligaments are g rossly unremarkable, however these structures are evaluated by MRI. IMPRESSION: 1. 2.1 x 1.0 cm soft tissue ulcer of the plantar hindfoot is noted with mild deep subcutaneous emphys chet correlating with the previously described soft tissue sinus tract. This extends towards the poste rior calcaneal body. No osseous erosion identified at this time to suggest acute osteomyelitis. 2. No drainable fluid collection. 3. Moderate to extensive subcutaneous edema suggestive of probable cellulitis. Venous stasis or lymph edema also considered. 4. Acute versus subacute nondisplaced fractures involve the lateral base of the first proximal phalan x and fifth metatarsal neck. 5. Arterial calcifications with diffuse muscular atrophy suggestive of chronic denervation changes. 6. Prior partial amputation of the second and third digits. ACT 112: Negative or not required by law. The above report was generated using voice recognition software. It may contain grammatical, syntax o r spelling errors. Electronically signed by: Hudson Obregon M.D. 01/22/2020 2:09 PM
[2020-01-22] MEDS ORDERED: FUROSEMIDE 40 MG/4 ML VIAL IV STA (15:16)
[2020-01-22] MEDS ORDERED: POTASSIUM CHLORIDE 20 MEQ TABCR PO STA (15:31)
--- NOTE | 2020-01-22 15:35 | History & Physical Report ---
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 Prior wound cultures grew MRSA and enterobacter cloacae. Repeat deep wound culture done today at wound clinic. Received broad-spectrum IV antibiotics in ED with IV daptomycin and ertapenem. ESR greater than 90, CRP 1.55, he remains afebrile, WBC WNL. CT scan of foot 2.1 x 1.0 cm soft tissue ulcer of the plantar hindfoot is noted with mild deep subcutaneous emphysema correlating with the previously described soft tissue sinus tract. This extends towards the posterior calcaneal body. No osseous erosion identified at this time to suggest acute osteomyelitis. Acute versus subacute nondisplaced fractures involve the lateral base of the first proximal phalanx and fifth metatarsal neck. Admit to PCU Continue broad-spectrum antibiotics with daptomycin and ertapenem Consult wound care/provider Consult [facility] infectious disease Obtain arterial Dopplers of bilateral lower extremities Blood and wound culture pending Orthopedics consulted Nonweightbearing to left lower extremity (3) CHF (congestive heart failure): Acute on Chronic HFrEF in setting of ischemic cardiomyopathy Last echocardiogram 11/14/2018 revealed EF 45%, inferior and posterior wall motion abnormality, mildly enlarged left atrium, mild TR, mild pulmonary hypertension Patient with evidence of volume overload on exam, proBNP elevated On Lasix 40 mg p.o. twice daily at home Placed on Lasix 40 mg IV twice daily Will place Cisneros if patient allows given need for nonweightbearing status to left lower extremity and need for adequate I's and O's Strict I and O, daily weight, HH/low Na diet low threshold for cardiology consult (4) Chronic respiratory failure with hypoxia and hypercapnia: 2/2 to COPD and Bronchiectasis on 2 L of O2 chronically Follows [facility], hx of Asp pneumonitis as well due to poor airway clearance from bronchiectasis Pt tells me his breathing status is his "baseline" despite audible wheezing, tachypnea and accessory muscle use He does not tolerate albuterol/ipratropium nebulizer treatments or MDIs -due to history of worsening cough and syncopal episode He is mostly noncompliant from a pulmonary toilet standpoint Afebrile, WBC WNL, procalcitonin WNL. He is leukopenic and denies known COVID exposure. Given exam findings, cough and lymphopenia will test for COVID ABG ordered (5) COPD (chronic obstructive pulmonary disease): (6) PAF (paroxysmal atrial fibrillation): Rate and rhythm controlled Continue metoprolol and Coumadin (7) Coronary artery disease: Patient with chronic ischemic cardiomyopathy Follows [facility] cardiology Last echocardiogram 11/14/2018 revealed EF 45%, inferior and posterior wall motion abnormality, mildly enlarged left atrium, mild TR, mild pulmonary hypertension On ASA, statin, metoprolol as outpatient Denies chest pain (8) Insulin dependent diabetes mellitus: Last A1c 6.9 on 01/07/2020 Continue Lantus/NovoLog per protocol (9) Chronic kidney disease stage 3: Baseline creatinine 1.0 BUN/creatinine 9/0.92 Monitor (10) History of pulmonary embolism: Continue long-term anticoagulation INR 1.9 Goal 2-3 (11) History of tachycardia-bradycardia syndrome: s/p PPM (12) Microscopic hematuria: known hx of kidney stones recommend follow up urology as outpt (13) DVT prophylaxis: continue warfarin, INR 1.9 follow INR Disposition: admit to PCU Follow up: PCP Dr. Mortensen upon discharge Pt was seen and examined in collaboration with Dr. Gonzalez, please see addendum History of Present Illness Chief Complaint: Referred by wound clinic. Primary Care Provider: Ron Mortensen, This is a 72 year old white male with significant PMH of Chronic ischemic heart disease with systolic dysfunction EF 44-49%, PAF, hx of PE on shelter coumadin, HLD, IDDM, COPD, bronchiectasis, CKD3, tachybradycardia syndrome status post PPM, PAD who presents to [facility] 2/2 referral from wound clinic due to deterioration of left heel wound. He was seen and evaluated today by Yari Alston and due to wound deterioration concern for osteomyelitis inpatient admission was recommended. Wound culture was repeated but he did not undergo debridement. A fragment of bone was dislodged by wound RN which was sent for wound culture. In regards to antibiotics he did receive IV Dalvance on 01/10/2020 but second dose was not approved by insurance. He otherwise has not been taking any antibiotics. Prior wound cultures on 11/27/2019 grew Enterobacter cloacae and MRSA. Repeat cultures on 12/24 in 12/30 also grew MRSA. He complains of left heel pain and has been noncompliant with weightbearing status. He denies any fever, chills, sweats, lightheadedness, dizziness, chest pain or palpitation. He chronically has shortness of breath secondary to COPD and uses 2 L of O2. He feels his breathing is at baseline and he does have a chronic cough that is occasionally productive and occasionally dry. Although visibly short of breath and wheezing he states, "this is how I always sound." He admits to being allergic to albuterol and ipratropium and therefore is unable to tolerate nebulizer or MDI treatment. He feels his lower extremity swelling is at its baseline and he denies any weight gain. He says his baseline weight is approximately 259 pounds, but does not weigh himself on a regular basis. He denies any hemoptysis, nausea, vomiting, abdominal pain, diarrhea. Last BM was yesterday. He denies any dysuria, gross urgency or frequency with urination. He admits to being compliant with his medications. He has not taken any medications so far today. He is an insulin-dependent diabetic with recent improvement in control with an A1c of 6.9 on 01/07/2020. In ED patient remained hemodynamically stable. He was saturating at 100% on 2 L of O2. Lab abnormalities notable for H&H 12.7 and 41.2, WBC 5.87, platelet 151, INR 1.9, K3.9, CO2 41, BUN 9, creatinine 0.92, lactate 1.1, pro-Michael WNL. Urinalysis positive for blood and RBC. Chest x-ray 1. Continued radiographic evidence of congestive failure with cardiomegaly bilateral pleural effusions and mild interstitial thickening/edema. 2. Basilar airspace opacity statistically atelectatic although a superimposed pneumonia could appear similar. CT Foot - 2.1 x 1.0 cm soft tissue ulcer of the plantar hindfoot is noted with mild deep subcutaneous emphysema correlating with the previously described soft tissue sinus tract. This extends towards the posterior calcaneal body. No osseous erosion identified at this time to suggest acute osteomyelitis. He did receive broad-spectrum IV antibiotics with ertapenem and daptomycin. Allergies Allergy/AdvReac Type Severity Reaction Status Date / Time albuterol Allergy Severe CHOKING Verified 01/15/20 09:18 SENSATION ipratropium Allergy Severe CHOKING Verified 01/15/20 09:18 SENSATION onion Allergy Intermediate RASH Verified 01/15/20 09:18 levofloxacin Allergy Mild other Verified 01/15/20 09:18 atorvastatin AdvReac Intermediate Muscle Pain Verified 01/15/20 09:18 metformin AdvReac Intermediate Diarrhea Verified 01/15/20 09:18 Home Medications Home Medications Medication Instructions Recorded Confirmed Type Lantus Solostar U-100 Insulin 26 unit SUBCUT HS 04/11/18 01/22/20 History allopurinol [Zyloprim] 300 mg PO QPM 04/11/18 01/22/20 History insulin aspart U-100 [Novolog 1 sliding scale dose SUBCUT AC 04/11/18 01/22/20 History PenFill U-100 Insulin] montelukast [Singulair] 10 mg PO PM 04/11/18 01/22/20 History nitroglycerin 0.4 mg SUBLINGUAL UD PRN 04/11/18 01/22/20 History primidone [Mysoline] 500 mg PO HS 04/11/18 01/22/20 History rosuvastatin [Crestor] 40 mg PO HS 04/11/18 01/22/20 History warfarin [Jantoven] 4 mg PO MOWEFR 10/14/18 01/22/20 History warfarin 6 mg PO SUTUTHSA 01/10/19 01/22/20 History aspirin 325 mg PO HS 08/08/19 01/22/20 History metoprolol succinate 25 mg PO QPM 08/08/19 01/22/20 History furosemide 20 mg tablet 40 mg PO BID tab 11/27/19 01/22/20 History ferrous sulfate [iron] 325 mg PO Q OTHER DAY 01/09/20 01/22/20 History Past Med/Surg History Medical History Bronchiectasis Chronic kidney disease stage 3 Chronic left ventricular systolic heart failure COPD (chronic obstructive pulmonary disease) Coronary artery disease "S/P inferior ME, severe multivessel disease not amenable to intervention" per 2012 cath Diabetes mellitus, type 2 IDDM GERD (gastroesophageal reflux disease) Gout Hearing deficit BL KOO History of CVA (cerebrovascular accident) "YEARS AGO" - reports he has had a tremor ever since stroke. denies additional residual effects History of depression History of DVT (deep vein thrombosis) "YEARS AGO" ETIOLOGY UNK - ON WARFARIN History of pancreatitis History of pulmonary embolism on shelter coumadin History of tachycardia-bradycardia syndrome HLD (hyperlipidemia) Ischemic cardiomyopathy EF 45-49% Myocardial Infarction "YEARS AGO" Nephrolithiasis On home oxygen therapy 2 LPM DAILY PRN (secondary to chronic respiratory failure) Osteoarthritis PAD (peripheral artery disease) PAF (paroxysmal atrial fibrillation) DX "years ago" - ON COUMADIN - FOLLOWS W/ DR. ROYCE Rasmussen historian Seizure QUESTIONABLE- EEG 1 WEEK AGO FOR QUESTIONABLE SEIZURE (reported convulsions, loss of consciousness 1 week ago while watching TV) - [place] [facility] - EEG unremarkable Tremor Surgical History H/O toe surgery "amputation left 3rd and 4th toe 03/2012" History of bronchoscopy History of cardiac cath MULTIPLE - NO STENTS [place] (could not recall dates - most recent in system is from 2011 [place]) History of cholecystectomy History of incision of pericardium pericardial window secondary to pericardial effusion History of pacemaker PLACED 10/2017 FOR [employer] - [employer] - LAST CHECKED 05/2019 History of tonsillectomy S/P cystoscopy with ureteral stent placement 07/25/2019 [facility] Status post creation of pericardial window Family History Mother Alzheimer disease Social History Preferred Language: Citizen Of [place] Communication Ability: Effective Center Consultant Required: No Beliefs That Will Affect Care: None marital status: Current Living Situation: Spouse Current Living Situation Comment: lives at [address] with current occupation: 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 Quit in 1971 ; Second Hand Exposure: Yes (PREVIOUS EXPOSURE IN THE WORKPLACE) ; Hx Alcohol Use: Yes Alcohol type: beer and hard liquor Hx Substance Use: No Review of Systems Review of Systems: All systems reviewed & are unremarkable except as noted in HPI & below Physical Exam Physical Exam: Constitutional: Morbidly obese, male, tachypneic with audible wheezing, vitals as above,sitting up in bed, pleasant, answers questions appropriately Head: Normocephalic, Atraumatic Eyes: PERRL, conjunctivae normal, anicteric sclerae ENMT: external ear and nose normal, oropharynx normal, poor dentition Neck: trachea midline, no thyromegaly normal visual inspection Respiratory: Tachypnea, audible wheezing, increased respiratory effort, diffuse expiratory and expiratory wheezing, does improve with coughing but does not clear,no rales, rhonchi. + accessory muscle use Cardiovascular: RRR, no murmur, bilateral lower extremity erythematous lymphedema/venous stasis, bilateral +1 pedal pulse vessels: no JVD or carotid bruit Chest: normal inspection of chest Abdomen: Protuberant abdomen, firm,normal bowel sounds, nontender, no hepatosplenomegaly appreciated Musculoskeletal: no cyanosis or clubbing, extremities motor strength 5/5 Skin: Bilateral lower extremity venous stasis dermatitis, erythematous with multiple lower extremity wounds as noted by pictures in chart, specifically left heel wound with apparent tracking, erythema, serosanguineous drainage, warm and dry normal turgor Neurologic: PERRL, EOMI, accommodation nl, no face palsy, no dysarthria CN's II-XI intact bilaterally and moves all extremities Psychiatric: A+Ox3, euthymic affect Lymphatic: no cervical or axillary lymphadenopathy : deferred Results & Data Results & Data ([facility]) Vital Signs (Past 12 Hours) Vital Signs Temp Pulse Pulse Resp BP BP Pulse Ox 01/22/20 14:00 85 19 155/84 H 100 01/22/20 13:31 173/78 H 100 01/22/20 12:58 83 21 156/83 H 100 01/22/20 12:30 83 20 156/83 H 100 01/22/20 12:25 99 01/22/20 11:20 36.5 C 79 22 159/91 H 99 Laboratory Results Short CBC 01/22/20 01/22/20 Range/Units 12:48 12:48 WBC 5.85 (4.8-10.8) K/uL Hgb 12.7 L (14.0-18.0) g/dL Hct 41.2 L (42-52) % Plt Count 151 (130-400) K/uL Carbon Dioxide 41 H* (21-32) mmol/L BMP 01/22/20 12:48 Sodium 138 Potassium 3.9 Chloride 97 L Carbon Dioxide 41 H* BUN 9 Creatinine 0.92 Glucose 97 Calcium 8.9 Liver Function 01/22/20 Range/Units 12:48 Total Bilirubin 0.4 (0.2-1) mg/dl AST 16 (15-37) U/L ALT 12 (12-78) U/L Alkaline Phosphatase 123 H (45-117) U/L Albumin 2.9 L (3.4-5.0) gm/dl Urine 01/22/20 Range/Units Unknown Urine Color Yellow Urine Appearance Clear (Clear) Urine pH 7.0 (4.5-7.5) Ur Specific [place] 1.017 (1.000-1.030) Urine Protein 2+ H (Negative) Urine Glucose (UA) Negative (Negative) Diagnostic Findings CXR: IMPRESSION: 1. Continued radiographic evidence of congestive failure with cardiomegaly bilateral pleural effusions and mild interstitial thickening/edema 2. Basilar airspace opacity statistically atelectatic although a superimposed pneumonia could appear similar Foot CT: IMPRESSION: 1. 2.1 x 1.0 cm soft tissue ulcer of the plantar hindfoot is noted with mild deep subcutaneous emphysema correlating with the previously described soft tissue sinus tract. This extends towards the posterior calcaneal body. No osseous erosion identified at this time to suggest acute osteomyelitis. 2. No drainable fluid collection. 3. Moderate to extensive subcutaneous edema suggestive of probable cellulitis. Venous stasis or lymphedema also considered. 4. Acute versus subacute nondisplaced fractures involve the lateral base of the first proximal phalanx and fifth metatarsal neck. 5. Arterial calcifications with diffuse muscular atrophy suggestive of chronic denervation changes. 6. Prior partial amputation of the second and third digits. Medications Administered Discontinued Medications Sodium Chloride (Nss 1000ml) 500 mls @ 999 mls/hr IV .Q31M ONE Stop: 01/22/20 12:54 Last Infusion: 01/22/20 13:52 Dose: 0 mls/hr Documented by: [id number] Admin: 01/22/20 13:17 Dose: 999 mls/hr Documented by: [id number] Daptomycin 500 mg/ Syringe 10 mls @ 5 mls/min IV NOW STA; Protocol Stop: 01/22/20 12:32 Last Admin: 01/22/20 13:17 Dose: 5 mls/min Documented by: [id number] Ertapenem 1,000 mg/ Sodium (Chloride) 60 mls @ 100 mls/hr IV NOW STA Stop: 01/22/20 13:07 Last Infusion: 01/22/20 14:00 Dose: 0 mls/hr Documented by: [id number] Admin: 01/22/20 13:22 Dose: 100 mls/hr Documented by: [id number] ECG Rate (beats per minute): 82 Rhythm: normal sinus Findings: + 1st degree AV block Code Status & VTE Plan Code Status Full Code VTE Prophylaxis Plan VTE Prophylaxis will be ordered: No Reason for no VTE drug order: Contraindicated (Pt on warfarin) Supervising Physician Co-Signing Physician Notes HISTORY: Record reviewed. Patient interviewed and examined. Care coordinated with Angeline Machuca PA-C; please refer to her documentation for complete history. Briefly, 74 YO male with history of ischemic heart disease, CHF, CKD, DM, and other problems. Draining ulcers left heel. Referred by Wound Clinic for inpatient management. EXAM: General- no distress Lungs- clear to auscultation; no respiratory distress Cardiovascular- RRR; no gallop appreciated; + JVD; 1+ pretibial edema; 2+ pedal edema Abdomen- + bowel sounds, soft, nontender Extremities- no cyanosis; Unna boot RLE; ulcers plantar and medial aspects of left heel Neuro- alert, oriented Skin- warm & dry DATA: 01/22/20 12:48 01/22/20 12:48 ESR > 90. CRP = 1.55 Pro-BNP = 1616. Lactate = 1.1. Procalcitonin < 0.05. SARS-CoV-2 PCR negative. PORTABLE CHEST X-RAY Reviewed by the undersigned and formally interpreted by Radiology: FINDINGS: The heart is enlarged. There is a left subclavian dual-chamber central venous pacemaker. There is elevation of interstitium consistent with congestive failure. There are bilateral pleural effusions right greater than left. There are bibasilar opacity statistically atelectatic although a superimposed pneumonia could appear similar[ IMPRESSION: 1. Continued radiographic evidence of congestive failure with cardiomegaly bilateral pleural effusions and mild interstitial thickening/edema 2. Basilar airspace opacity statistically atelectatic although a superimposed p neumonia could appear similar ACT 112: Negative or not required by law. Electronically signed by: Dillon Gaspar M.D. 01/22/2020 12:51 PM EKG performed at 1314 reviewed and demonstrated NSR at 80 / minute, possible age-indeterminate inferior infarct, no acute changes. ASSESSMENT AND PLAN: DIABETIC FOOT ULCERS LEFT HEEL Wound culture 12/30 grew MRSA. No apparent osteomyelitis appreciated on CT. IV antibiotic therapy with daptomycin + ertapenem. Consult ID and Ortho. COUGH / WHEEZING SARS-CoV-2 PCR negative. Patient states that pulmonary status at baseline. CXR shows CHF. IV furosemide ordered. Please refer to DANIELITO Machuca's documentation for discussion of other issues. (1) COPD (chronic obstructive pulmonary disease) COPD type: unspecified COPD Qualified Code(s): J44.9 - Chronic obstructive pulmonary disease, unspecified
[2020-01-22 15:38] LABS: Appearance Urine Clear (Clear); Bacteria Urine Automated Negative (Negative); Bilirubin Urine Negative (Negative); Blood Urine 2+ (Negative); Color Urine Yellow; Epithelial Cell Urine Auto 20-30 /lpf (0-5); Glucose Urine UA Negative (Negative); Ketones Urine Negative (Negative); Leukocyte Esterase Urine Negative (Negative); Nitrite Urine Negative (Negative); Protein Urine 2+ (Negative); RBC Urine Automated >30 /hpf (0-4); Specific Gravity Urine 1.017 (1.000-1.030); Urobilinogen Urine Negative (Negative)
[2020-01-22 15:56] LABS: C Reactive Protein 1.55 mg/dl (0-0.29)
[2020-01-22 15:59] LABS: Base Excess ABG 9.9 mEq/L (-9-1.8); HCO3 ABG 38 mmol/L (19-24); Oxygen Saturation ABG 98.7 % (90-95); PCO2 ABG 73 mmHg (35-46); PO2 ABG 142 mmHg (80-95); pH ABG 7.34 (7.35-7.45)
[2020-01-22 16:18] LABS: Allen Test POS (Pos)
[2020-01-22] MEDS ORDERED: GLUCAGON FOR INJ 1 MG VIAL SQ PRN (17:16)
[2020-01-22] MEDS ORDERED: POLYETHYLENE (MIRALAX) 17 GM PACK PO PRN (17:16)
[2020-01-22] MEDS ORDERED: GLUCOSE 10 TABS/TUBE PO PRN (17:16)
[2020-01-22] MEDS ORDERED: CARBOHYDRATES FOR HYPOGLYCEMIA PO PRN (17:16)
[2020-01-22] MEDS ORDERED: ACETAMINOPHEN 325 MG TAB PO PRN (17:16)
[2020-01-22] MEDS ORDERED: ONDANSETRON INJ 2 MG/ML 2 ML VIAL IV PRN (17:16)
[2020-01-22] MEDS ORDERED: ALUMINUM/MAGNESIUM SUSP 30 ML UDC PO PRN (17:16)
[2020-01-22] MEDS ORDERED: DEXTROSE 50% 50 ML SYRINGE IV PRN (17:16)
[2020-01-22] MEDS ORDERED: GLUCOSE 40% GEL 15 GM TUBE PO PRN (17:16)
[2020-01-22] MEDS ORDERED: DAPTOMYCIN CONSULT ACTIVE PRN (17:58)
[2020-01-22] MEDS ORDERED: ERTAPENEM CONSULT ACTIVE PRN (17:59)
[2020-01-22] MEDS ORDERED: ERTAPENEM SODIUM 1,000 MG in SODIUM CHLORIDE 0.9% 50 ML IV SCH (18:30)
[2020-01-22] MEDS: WARFARIN SOD 4 MG TAB PO SCH (18:52)
[2020-01-22] MEDS: INSULIN ASPART 100 UNITS/ML 3 ML PEN SC SCH ×2 (19:05→20:33)
[2020-01-22] MEDS: METOPROLOL SUCC 25MG EXT REL TAB PO SCH (20:31)
[2020-01-22] MEDS: allopurinoL 300 MG TAB PO SCH (20:31)
[2020-01-22] MEDS: ASPIRIN 325 MG ECTAB PO SCH (20:31)
[2020-01-22] MEDS: MONTELUKAST SODIUM 10 MG TABLET PO SCH (20:31)
[2020-01-22] MEDS: PRIMIDONE 250 MG TAB PO SCH (20:32)
[2020-01-22] MEDS: INSULIN GLARGINE SOLOSTAR 100 UNITS/ML 3 ML PEN SC SCH (20:32)
--- NOTE | 2020-01-23 06:11 | Electrocardiogram Report ---
Test Reason : Blood Pressure : / mmHG Vent. Rate : 082 BPM Atrial Rate : 082 BPM P-R Int : 214 ms QRS Dur : 090 ms QT Int : 366 ms P-R-T Axes : 027 078 022 degrees QTc Int : 427 ms Sinus rhythm with 1st degree A-V block Poor R wave progression, consider anterior LA vs. lead placement vs. LVH Abnormal ECG When compared with ECG of 23-JUL-2019 11:09, DE interval has increased Inverted T waves have replaced nonspecific T wave abnormality in Inferior leads T wave amplitude has increased in Lateral leads Confirmed by Serjio Huitron ([id number]) on 01/23/2020 6:10:55 AM Referred By: REFERRED SELF Confirmed By:Serjio Huitron
[2020-01-23 07:39] LABS: Basophils # (auto) 0.01 K/uL (0-0.2); Basophils % (auto) 0.2 %; Eosinophils # (auto) 0.22 K/uL (0-0.5); Eosinophils % (auto) 3.4 %; Hematocrit (blood only) 38.5 % (42-52); Hemoglobin 11.6 g/dL (14.0-18.0); Immature Granulocytes # (auto) 0.02 K/uL (0.00-0.02); Immature Granulocytes % (auto) 0.3 %; Lymphocytes # (auto) 0.78 K/uL (1.2-3.4); Mean Corpuscular Hemoglobin 30.2 pg (25-34); Mean Corpuscular Hgb Conc 30.1 g/dL (32-36); Mean Corpuscular Volume 100.3 fL (80-100); Mean Platelet Volume 10.3 fL (7.4-10.4); Monocytes % (auto) 12.3 %; Neutrophils # (auto) 4.67 K/uL (1.4-6.5); Neutrophils % (auto) 71.8 %; Platelet Count 144 K/uL (130-400); RDW Coefficient of Variation 16.5 % (11.5-14.5); RDW Standard Deviation 60.8 fL (36.4-46.3); Red Blood Count 3.84 M/uL (4.7-6.1)
[2020-01-23 07:47] LABS: INR 2.1 (0.9-1.1); Prothrombin Time 21.7 Seconds (9.0-12.0)
--- NOTE | 2020-01-23 07:59 | Ultrasound Report ---
US arterial duplex LE BI HISTORY: 74 years-old Male b/l lower ext ulcers lower extremity ulcers with clinical concern for per ipheral artery disease COMPARISON: CT left foot 01/22/2020 TECHNIQUE: Multiple real-time sonographic images of the bilateral lower extremity arterial structures were obtained assessing grayscale appearance, color and spectral flow FINDINGS: RIGHT: Mixed plaque is noted throughout. Triphasic waveforms within the common femoral, profunda femoris and superficial femoral arteries. Biphasic waveforms in the popliteal artery. Subcutaneous edema of the lower leg. The calf arteries are not visualized secondary to bandages. LEFT: Mixed plaque is noted throughout. Triphasic waveforms are noted within the common femoral and superfi cial femoral arteries. Biphasic waveforms in the popliteal artery. Subcutaneous edema of the lower le g. Biphasic waveforms are seen within the posterior tibial and anterior tibial arteries. Blunted mono phasic waveforms within the distal anterior tibial artery. Monophasic waveforms in the peroneal arter y. Left calf arteries are suboptimally visualized secondary to overlying bandages and subcutaneous ed chet. No significantly elevated peak systolic velocities or arterial occlusion identified. IMPRESSION: 1. Limited exam as above secondary to lower extremity bandages. 2. Mixed plaque is noted throughout without arterial occlusion or elevated peak systolic velocity to suggest high-grade stenosis. 3. Blunted monophasic waveforms are noted within the visualized aspect of the left distal anterior ti bial artery. ACT 112: Negative or not required by law. The above report was generated using voice recognition software. It may contain grammatical, syntax o r spelling errors. Electronically signed by: Hudson Obregon M.D. 01/23/2020 7:57 AM
[2020-01-23 08:12] LABS: Albumin Level 2.7 gm/dl (3.4-5.0); BUN Creatinine Ratio 10.9 (10-20); Calcium 8.8 mg/dl (8.5-10.1); Creatinine Clr Calc Pharmacy 99.8 ml/min; Est GFR (African American) 100.4; Est GFR (Non-African American) 86.6; Magnesium 1.7 mg/dl (1.8-2.4); Potassium 3.7 mmol/L (3.5-5.1)
[2020-01-23 08:15] LABS: Albumin Globulin Ratio 0.5 (0.9-2); Bilirubin,Total 0.4 mg/dl (0.2-1); Total Protein 7.7 gm/dl (6.4-8.2)
[2020-01-23] MEDS: INSULIN GLARGINE SOLOSTAR 100 UNITS/ML 3 ML PEN SC SCH ×2 (08:54→21:44)
[2020-01-23] MEDS: INSULIN ASPART 100 UNITS/ML 3 ML PEN SC SCH ×4 (08:54→21:45)
[2020-01-23] MEDS: FERROUS SULFATE 325 MG TAB PO SCH (08:54)
[2020-01-23] MEDS: FUROSEMIDE 40 MG in SYRINGE 0 ML IV SCH ×2 (08:55→17:42)
--- NOTE | 2020-01-23 10:59 | Hospitalist Progress Note ---
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 Prior wound cultures grew MRSA and enterobacter cloacae. Will follow up wound cultures in lab Received broad-spectrum IV antibiotics in ED with IV daptomycin and ertapenem. ESR greater than 90, CRP 1.55, he remains afebrile, WBC WNL. CT scan of foot 2.1 x 1.0 cm soft tissue ulcer of the plantar hindfoot is noted with mild deep subcutaneous emphysema correlating with the previously described soft tissue sinus tract. This extends towards the posterior calcaneal body. No osseous erosion identified at this time to suggest acute osteomyelitis. Acute versus subacute nondisplaced fractures involve the lateral base of the first proximal phalanx and fifth metatarsal neck. ID evaluation and recommendations noted Even though CT does not indicate osteomyelitis, there is still suspicion for this Ertapenem and daptomycin discontinued. Started on vancomycin per ID Discussed with ortho. Plan for possible I/D of left heel ulcer on Monday. May require INR reversal for this. (3) CHF (congestive heart failure): Acute on Chronic HFrEF in setting of ischemic cardiomyopathy Last echocardiogram 11/14/2018 revealed EF 45%, inferior and posterior wall motion abnormality, mildly enlarged left atrium, mild TR, mild pulmonary hypertension Patient with evidence of volume overload on exam, proBNP elevated On Lasix 40 mg p.o. twice daily at home Continue iv diuretics Strict I and O, daily weight, HH/low Na diet (4) COPD (chronic obstructive pulmonary disease): (5) Chronic respiratory failure with hypoxia and hypercapnia: 2/2 to COPD and Bronchiectasis on 2 L of O2 [facility], hx of Asp pneumonitis as well due to poor airway clearance from bronchiectasis He reported he does not tolerate and not interested in albuterol/ipratropium nebulizer treatments or MDIs -due to history of worsening cough and syncopal episode Afebrile, WBC WNL, procalcitonin WNL. He is leukopenic and denies known COVID exposure. COVID 19 test negative (6) PAF (paroxysmal atrial fibrillation): Rate and rhythm controlled Continue metoprolol Coumadin held for possible surgery as above (7) Coronary artery disease: Patient with chronic ischemic cardiomyopathy Follows [facility] cardiology Last echocardiogram 11/14/2018 revealed EF 45%, inferior and posterior wall motion abnormality, mildly enlarged left atrium, mild TR, mild pulmonary hypertension On ASA, statin, metoprolol as outpatient (8) Insulin dependent diabetes mellitus: Last A1c 6.9 on 01/07/2020 Continue Lantus/NovoLog per protocol (9) Chronic kidney disease stage 3: Baseline creatinine 1.0 BUN/creatinine 9/0.92 Monitor (10) History of pulmonary embolism: Coumadin on hold as above (11) History of tachycardia-bradycardia syndrome: s/p PPM (12) Microscopic hematuria: known hx of kidney stones Recommend follow up urology as outpt (13) DVT prophylaxis: Coumadin on hold for OR as above Admission and Anticipated Discharge Date Admission Date: January 22, 2020 Subjective Patient seen and examined Only reports pain on left heel Has peripheral neuropathy with numbness in both feet Denied any fevers, chills, nausea, vomiting Denied any chest pain, cough this AM. Reports chronic shortness of breath which he attributed to his COPD Denied any urinary or GI symptoms Physical Exam Constitutional: no acute distress Eyes: PERRL, conjunctivae normal, anicteric sclerae ENMT: Poor dentition Respiratory: no respiratory distress On nasal cannula at 2l/min, Expiratory wheeze, no crackles Cardiovascular: RRR, S1-2, 2+pedal edema Gastrointestinal (Abdomen): normal bowel sounds, soft, nontender, no hepatosplenomegaly Skin: Bilateral stasis dermatitis Left heel wound with erythema, no obvious drainage, reported mild tenderness around wound Neurologic: PERRL, EOMI, accommodation nl, no face palsy, no dysarthria Psychiatric: A+Ox3, euthymic affect Results & Data Results & Data ([facility]) Vital Signs (Past 12 Hours) Vital Signs Temp Pulse Pulse Resp BP Pulse Ox 01/23/20 08:00 71 01/23/20 07:44 36.5 C 71 20 115/70 99 01/23/20 03:39 36.5 C 78 17 129/77 95 01/23/20 00:00 78 01/22/20 23:33 36.3 C L 81 20 145/80 H 94 Laboratory Results Laboratory Results - last 24 hr 01/22/20 01/22/20 01/22/20 12:48 12:48 12:48 WBC 5.85 RBC 4.10 L Hgb 12.7 L Hct 41.2 L MCV 100.5 H MCH 31.0 MCHC 30.8 L RDW Std Deviation 61.2 H RDW Coeff of Lizet 16.5 H Plt Count 151 MPV 9.7 Immature Gran % (Auto) 0.2 Neut % (Auto) 73.2 Lymph % (Auto) 12.5 Crosby % (Auto) 10.6 Eos % (Auto) 3.2 Baso % (Auto) 0.3 Neut # (Auto) 4.28 Lymph # (Auto) 0.73 L Crosby # (Auto) 0.62 H Eos # (Auto) 0.19 Baso # (Auto) 0.02 Immature Gran # (Auto) 0.01 ESR PT 19.8 H INR 1.9 H APTT 40.2 H PTT Ratio 1.4 ABG pH ABG pCO2 ABG pO2 ABG HCO3 ABG O2 Saturation ABG Base Excess [place] Test Barometric Pressure Oxygen Given Sodium Potassium Chloride Carbon Dioxide Anion Gap BUN Creatinine Est Cr Clr Drug Dosing Est GFR ( Amer) Est GFR (Non-Af Amer) BUN/Creatinine Ratio Glucose POC Glucose Lactate Calcium Magnesium Total Bilirubin AST ALT Alkaline Phosphatase Total Creatine Kinase C-Reactive Protein NT-Pro-B Natriuret Pep Total Protein Albumin Globulin Albumin/Globulin Ratio Procalcitonin < 0.05 Urine Color Urine Appearance Urine pH Ur Specific [place] Urine Protein Urine Glucose (UA) Urine Ketones Urine Blood Urine Nitrite Urine Bilirubin Urine Urobilinogen Ur Leukocyte Esterase Urine WBC (Auto) Urine RBC (Auto) U Hyaline Cast (Auto) U Epithel Cells (Auto) Urine Bacteria (Auto) COVID-19 PCR 01/22/20 01/22/20 01/22/20 12:48 12:48 12:48 WBC RBC Hgb Hct MCV MCH MCHC RDW Std Deviation RDW Coeff of Lizet Plt Count MPV Immature Gran % (Auto) Neut % (Auto) Lymph % (Auto) Crosby % (Auto) Eos % (Auto) Baso % (Auto) Neut # (Auto) Lymph # (Auto) Crosby # (Auto) Eos # (Auto) Baso # (Auto) Immature Gran # (Auto) ESR > 90 H PT INR APTT PTT Ratio ABG pH ABG pCO2 ABG pO2 ABG HCO3 ABG O2 Saturation ABG Base Excess [place] Test Barometric Pressure Oxygen Given Sodium 138 Potassium 3.9 Chloride 97 L Carbon Dioxide 41 H* Anion Gap 1.0 L BUN 9 Creatinine 0.92 Est Cr Clr Drug Dosing 96.7 Est GFR ( Amer) 96.0 Est GFR (Non-Af Amer) 82.8 BUN/Creatinine Ratio 10.1 Glucose 97 POC Glucose Lactate 1.1 Calcium 8.9 Magnesium 1.8 Total Bilirubin 0.4 AST 16 ALT 12 Alkaline Phosphatase 123 H Total Creatine Kinase C-Reactive Protein NT-Pro-B Natriuret Pep Total Protein 8.1 Albumin 2.9 L Globulin 5.2 H Albumin/Globulin Ratio 0.6 L Procalcitonin Urine Color Urine Appearance Urine pH Ur Specific [place] Urine Protein Urine Glucose (UA) Urine Ketones Urine Blood Urine Nitrite Urine Bilirubin Urine Urobilinogen Ur Leukocyte Esterase Urine WBC (Auto) Urine RBC (Auto) U Hyaline Cast (Auto) U Epithel Cells (Auto) Urine Bacteria (Auto) COVID-19 PCR 01/22/20 01/22/20 01/22/20 12:48 15:46 16:30 WBC RBC Hgb Hct MCV MCH MCHC RDW Std Deviation RDW Coeff of Lizet Plt Count MPV Immature Gran % (Auto) Neut % (Auto) Lymph % (Auto) Crosby % (Auto) Eos % (Auto) Baso % (Auto) Neut # (Auto) Lymph # (Auto) Crosby # (Auto) Eos # (Auto) Baso # (Auto) Immature Gran # (Auto) ESR PT INR APTT PTT Ratio ABG pH 7.34 L ABG pCO2 73 H ABG pO2 142 H ABG HCO3 38 H ABG O2 Saturation 98.7 H ABG Base Excess 9.9 H [place] Test POS Barometric Pressure 730.3 Oxygen Given FLOW RATE 2 Sodium Potassium Chloride Carbon Dioxide Anion Gap BUN Creatinine Est Cr Clr Drug Dosing Est GFR ( Amer) Est GFR (Non-Af Amer) BUN/Creatinine Ratio Glucose POC Glucose Lactate Calcium Magnesium Total Bilirubin AST ALT Alkaline Phosphatase Total Creatine Kinase 37 L C-Reactive Protein 1.55 H NT-Pro-B Natriuret Pep 1616 H Total Protein Albumin Globulin Albumin/Globulin Ratio Procalcitonin Urine Color Urine Appearance Urine pH Ur Specific [place] Urine Protein Urine Glucose (UA) Urine Ketones Urine Blood Urine Nitrite Urine Bilirubin Urine Urobilinogen Ur Leukocyte Esterase Urine WBC (Auto) Urine RBC (Auto) U Hyaline Cast (Auto) U Epithel Cells (Auto) Urine Bacteria (Auto) COVID-19 PCR NEGATIVE 01/22/20 01/22/20 01/23/20 19:28 Unknown 06:40 WBC 6.50 RBC 3.84 L Hgb 11.6 L Hct 38.5 L MCV 100.3 H MCH 30.2 MCHC 30.1 L RDW Std Deviation 60.8 H RDW Coeff of Lizet 16.5 H Plt Count 144 MPV 10.3 Immature Gran % (Auto) 0.3 Neut % (Auto) 71.8 Lymph % (Auto) 12.0 Crosby % (Auto) 12.3 Eos % (Auto) 3.4 Baso % (Auto) 0.2 Neut # (Auto) 4.67 Lymph # (Auto) 0.78 L Crosby # (Auto) 0.80 H Eos # (Auto) 0.22 Baso # (Auto) 0.01 Immature Gran # (Auto) 0.02 ESR PT INR APTT PTT Ratio ABG pH ABG pCO2 ABG pO2 ABG HCO3 ABG O2 Saturation ABG Base Excess [place] Test Barometric Pressure Oxygen Given Sodium Potassium Chloride Carbon Dioxide Anion Gap BUN Creatinine Est Cr Clr Drug Dosing Est GFR ( Amer) Est GFR (Non-Af Amer) BUN/Creatinine Ratio Glucose POC Glucose 119 H Lactate Calcium Magnesium Total Bilirubin AST ALT Alkaline Phosphatase Total Creatine Kinase C-Reactive Protein NT-Pro-B Natriuret Pep Total Protein Albumin Globulin Albumin/Globulin Ratio Procalcitonin Urine Color Yellow Urine Appearance Clear Urine pH 7.0 Ur Specific [place] 1.017 Urine Protein 2+ H Urine Glucose (UA) Negative Urine Ketones Negative Urine Blood 2+ H Urine Nitrite Negative Urine Bilirubin Negative Urine Urobilinogen Negative Ur Leukocyte Esterase Negative Urine WBC (Auto) 1-5 Urine RBC (Auto) >30 H U Hyaline Cast (Auto) 1-5 U Epithel Cells (Auto) 20-30 H Urine Bacteria (Auto) Negative COVID-19 PCR 01/23/20 01/23/20 01/23/20 06:40 06:40 08:53 WBC RBC Hgb Hct MCV MCH MCHC RDW Std Deviation RDW Coeff of Lizet Plt Count MPV Immature Gran % (Auto) Neut % (Auto) Lymph % (Auto) Crosby % (Auto) Eos % (Auto) Baso % (Auto) Neut # (Auto) Lymph # (Auto) Crosby # (Auto) Eos # (Auto) Baso # (Auto) Immature Gran # (Auto) ESR PT 21.7 H INR 2.1 H APTT PTT Ratio ABG pH ABG pCO2 ABG pO2 ABG HCO3 ABG O2 Saturation ABG Base Excess [place] Test Barometric Pressure Oxygen Given Sodium 139 Potassium 3.7 Chloride 96 L Carbon Dioxide 38 H Anion Gap 4.0 BUN 9 Creatinine 0.86 Est Cr Clr Drug Dosing 99.8 Est GFR ( Amer) 100.4 Est GFR (Non-Af Amer) 86.6 BUN/Creatinine Ratio 10.9 Glucose 80 POC Glucose 109 H Lactate Calcium 8.8 Magnesium 1.7 L Total Bilirubin 0.4 AST 19 ALT 10 L Alkaline Phosphatase 117 Total Creatine Kinase C-Reactive Protein NT-Pro-B Natriuret Pep Total Protein 7.7 Albumin 2.7 L Globulin 5.0 H Albumin/Globulin Ratio 0.5 L Procalcitonin Urine Color Urine Appearance Urine pH Ur Specific [place] Urine Protein Urine Glucose (UA) Urine Ketones Urine Blood Urine Nitrite Urine Bilirubin Urine Urobilinogen Ur Leukocyte Esterase Urine WBC (Auto) Urine RBC (Auto) U Hyaline Cast (Auto) U Epithel Cells (Auto) Urine Bacteria (Auto) COVID-19 PCR (1) COPD (chronic obstructive pulmonary disease) COPD type: unspecified COPD Qualified Code(s): J44.9 - Chronic obstructive pulmonary disease, unspecified
[2020-01-23] MEDS ORDERED: VANCOMYCIN CONSULT ACTIVE PRN (11:30)
[2020-01-23] MEDS ORDERED: VANCOMYCIN HCL 2,500 MG in SODIUM CHLORIDE 0.9% 500 ML IV ONE (11:45)
[2020-01-23] MEDS ORDERED: ERTAPENEM SODIUM 1,000 MG in SODIUM CHLORIDE 0.9% 50 ML IV SCH (12:00)
[2020-01-23] MEDS ORDERED: DAPTOmycin 325 MG in SYRINGE 0 ML IV SCH (12:00)
--- NOTE | 2020-01-23 12:23 | Orthopedic Consultation ---
Date of Consultation January 23, 2020 Assessment & Plan (1) Diabetic ulcer of left heel associated with type 2 diabetes mellitus, with fat layer exposed: Current culture showing no organisms on the Gram stain. Follow cultures. (pin point growth noted; h/o MRSA) Continue current IV antibiotics. I will have the wound care team see the patient today and document new photos of the ulcer. Depending on the size of the ulcer post debridement, patient may be a candidate for wound VAC. I have discussed the case with Dr. Schreiber as well as with . After reviewing his CT and MRI scans and plain films, patient would likely benefit from an I&D of the left heel ulcer. He will need his INR brought down to less than 1.5 for surgery. I have discussed this with Dr. Gonzalez. 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 Patient has been dealing with a left heel ulcer for approximately month. He has been seeing the wound care team from [facility] physician group. He states that he was on oral antibiotics however those seem to be not working and he was switched over to an IV antibiotic that he would go to [facility] to [facility]. The patient was seen by the wound care team yesterday, and at that time, it was felt that his left heel ulcer was worsening. Subcutaneous fat was noted and culture swab penetrated to the bone and actually dislodged a small piece of bone that was sent for culture. It was felt that he would need IV antibiotics and possible debridement. We have been asked to see him for his heel ulcer. Currently the patient is sitting up at the bedside and is in no acute distress. He is pleasant and cooperative. He does not complain of any pain at this time. Allergies Allergy/AdvReac Type Severity Reaction Status Date / Time albuterol Allergy Severe CHOKING Verified 01/15/20 09:18 SENSATION ipratropium Allergy Severe CHOKING Verified 01/15/20 09:18 SENSATION onion Allergy Intermediate RASH Verified 01/15/20 09:18 levofloxacin Allergy Mild other Verified 01/15/20 09:18 atorvastatin AdvReac Intermediate Muscle Pain Verified 01/15/20 09:18 metformin AdvReac Intermediate Diarrhea Verified 01/15/20 09:18 Home Medications Home Medications Medication Instructions Recorded Confirmed Type Lantus Solostar U-100 Insulin 26 unit SUBCUT HS 04/11/18 01/22/20 History allopurinol [Zyloprim] 300 mg PO QPM 04/11/18 01/22/20 History insulin aspart U-100 [Novolog 1 sliding scale dose SUBCUT AC 04/11/18 01/22/20 History PenFill U-100 Insulin] montelukast [Singulair] 10 mg PO PM 04/11/18 01/22/20 History nitroglycerin 0.4 mg SUBLINGUAL UD PRN 04/11/18 01/22/20 History primidone [Mysoline] 500 mg PO HS 04/11/18 01/22/20 History rosuvastatin [Crestor] 40 mg PO HS 04/11/18 01/22/20 History warfarin [Jantoven] 4 mg PO MOWEFR 10/14/18 01/22/20 History warfarin 6 mg PO SUTUTHSA 01/10/19 01/22/20 History aspirin 325 mg PO HS 08/08/19 01/22/20 History metoprolol succinate 25 mg PO QPM 08/08/19 01/22/20 History furosemide 20 mg tablet 40 mg PO BID tab 11/27/19 01/22/20 History ferrous sulfate [iron] 325 mg PO Q OTHER DAY 01/09/20 01/22/20 History Patient History Medical History Bronchiectasis Chronic kidney disease stage 3 Chronic left ventricular systolic heart failure COPD (chronic obstructive pulmonary disease) Coronary artery disease "S/P inferior ND, severe multivessel disease not amenable to intervention" per 2012 cath Diabetes mellitus, type 2 IDDM GERD (gastroesophageal reflux disease) Gout Hearing deficit BL KOO History of CVA (cerebrovascular accident) "YEARS AGO" - reports he has had a tremor ever since stroke. denies additional residual effects History of depression History of DVT (deep vein thrombosis) "YEARS AGO" ETIOLOGY UNK - ON WARFARIN History of pancreatitis History of pulmonary embolism on assisted coumadin History of tachycardia-bradycardia syndrome HLD (hyperlipidemia) Ischemic cardiomyopathy EF 45-49% Myocardial Infarction "YEARS AGO" Nephrolithiasis On home oxygen therapy 2 LPM DAILY PRN (secondary to chronic respiratory failure) Osteoarthritis PAD (peripheral artery disease) PAF (paroxysmal atrial fibrillation) DX "years ago" - ON COUMADIN - FOLLOWS W/ DR. ROYCE Rasmussen historian Seizure QUESTIONABLE- EEG 1 WEEK AGO FOR QUESTIONABLE SEIZURE (reported convulsions, loss of consciousness 1 week ago while watching TV) - [facility] - EEG unremarkable Tremor Surgical History H/O toe surgery "amputation left 3rd and 4th toe 03/2012" History of bronchoscopy History of cardiac cath MULTIPLE - NO STENTS [place] (could not recall dates - most recent in system is from 2011 [place]) History of cholecystectomy History of incision of pericardium pericardial window secondary to pericardial effusion History of pacemaker PLACED 10/2017 FOR [employer] - [employer] - LAST CHECKED 05/2019 History of tonsillectomy S/P cystoscopy with ureteral stent placement 07/25/2019 [facility] Status post creation of pericardial window Family History Mother Alzheimer disease Social History Preferred Language: Maltese Communication Ability: Effective World Travel Counselor Required: No Beliefs That Will Affect Care: None marital status: Current Living Situation: Spouse Current Living Situation Comment: lives at [employer] with current occupation: 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 Quit in 1971 ; Second Hand Exposure: Yes (PREVIOUS EXPOSURE IN THE WORKPLACE) ; Hx Alcohol Use: Yes Alcohol type: beer and hard liquor Hx Substance Use: No Physical Exam Physical Exam: Patient is a 74-year-old obese white male who appears his stated age. Pleasant and cooperative. No acute distress. Alert and oriented x3. Focusing the exam on the left lower extremity, the patient has a dressing on the left foot. He has noted edema of both lower extremities. He has a boot type wrap on his right leg. Left lower extremity is edematous and erythematous. Venous stasis disease. Dressing is removed on the left foot. He has an ulceration on the heel that is surrounded with some erythema. No obvious purulent drainage at this time. Does have some white to yellow slough on the distal aspect. Soft tissues are evident looking into the ulcer. The ulcer measures approximately 1-1/2 to 2 cm in width and approximately a centimeter in height. I cannot express any purulent drainage from the ulcer on palpation. This does not seem to bother the patient as far as pain. Patient states he has decreased sensation in his feet but states he still has pain whenever they would do a debridement at the wound care center. Denies pain in the remaining toes. Wound was redressed. Results & Data ([facility] [place]) Vital Signs (Past 12 Hours) Vital Signs Temp Pulse Pulse Resp BP Pulse Ox 01/23/20 11:57 36.7 C 75 16 115/74 100 01/23/20 08:00 71 01/23/20 07:44 36.5 C 71 20 115/70 99 01/23/20 03:39 36.5 C 78 17 129/77 95 Diagnostic Findings Patient: RON ETIENNE LAdmit Date: 01/22/20 MR#: [id number]: [address] Acct ID:[id number]: Date: 1945[facility] Zip: [place] [address] Age: 74Location: ED Sex: M Room/Bed: Att Phy:Diagnosis: WOUND Mary Phy: Ron Mortensen, DOService Date: 01/22/20 Fam Phy:Interpreting Phy: Diaz Obregon Admit Phy: Ordering Phy: John Stone M.D. cc: ~ CT foot LT wo con HISTORY: 74 years-old Male poss osteo chronic left foot pain with clinical concern for possible osteomyelitis. CT left foot 02/03/2012 COMPARISON: CT left foot 02/03/2012, left foot radiographs 12/10/2019, MRI left ankle 01/10/2020 TECHNIQUE: Multiple axial CT images of the left foot were obtained without the use of IV contrast. A dose lowering technique was used consistent with the principals of NELA. FINDINGS: Demineralized appearance of the bones. Partial bony fusion of the middle subtalar joint with complete osseous fusion of the posterior subtalar joint. There is moderate tibiotalar osteoarthritis. No definite osteochondral defect or intra-articular loose body identified. Moderate sized plantar and calcaneal enthesophytes of the calcaneus. The distal fifth digit is only partially imaged. There is extension of the metatarsal-phalangeal joints and flexion of the interphalangeal joints. No osseous erosions identified to suggest acute osteomyelitis. Moderate multifocal osteoarthritis. 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 Acute versus subacute nondisplaced fracture involving the fifth metatarsal neck (image 167 series 3). Bipartite medial hallux sesamoid. There is suggestion of an acute nondisplaced intra-articular fracture involving the lateral base of the first proximal phalanx, image 178 series 3. There is a cutaneous ulcer involving the plantar aspect of the hindfoot superficial to the posterior calcaneal body which measures approximately 2.1 x 1.0 cm in transverse and AP dimensions respectively. Mild degree of underlying subcutaneous emphysema with sinus tract. No drainable fluid collection. There is diffuse subcutaneous edema throughout the foot and ankle which is moderate to extensive. Arterial calcifications are noted with moderate muscular atrophy of the foot. Tendons and ligaments are grossly unremarkable, however these structures are evaluated by MRI. IMPRESSION: 1. 2.1 x 1.0 cm soft tissue ulcer of the plantar hindfoot is noted with mild deep subcutaneous emphysema correlating with the previously described soft tissue sinus tract. This extends towards the posterior calcaneal body. No osseous erosion identified at this time to suggest acute osteomyelitis. 2. No drainable fluid collection. 3. Moderate to extensive subcutaneous edema suggestive of probable cellulitis. Venous stasis or lymphedema also considered. 4. Acute versus subacute nondisplaced fractures involve the lateral base of the first proximal phalanx and fifth metatarsal neck. 5. Arterial calcifications with diffuse muscular atrophy suggestive of chronic denervation changes. 6. Prior partial amputation of the second and third digits. MRI OF THE LEFT ANKLE COMBO 01/10/20 CLINICAL HISTORY: Left foot infection. Clinical concern for osteomyelitis of the left heel. COMPARISON STUDY: Radiographs of the left foot and ankle dated 12/10/2019. MRI of the left foot dated 10/05/2015. TECHNIQUE: MRI of the left ankle is performed utilizing various T1 and T2- weighted sequences in the axial, sagittal, and coronal planes. Contrast-enhanced sequences are acquired following the IV administration of 11.5 cc of Gadavist. IV contrast was administered without complication. The examination is modestly degraded by motion artifact. FINDINGS: There is diffuse subcutaneous and deep soft tissue edema identified throughout the visualized left lower extremity. A cutaneous wound is identified along the plantar aspect of the hindfoot deep to the calcaneus. There is nonspecific patchy abnormal enhancement, with a small sinus tract extending from the dermal surface towards the base of the calcaneus/heel. This is best seen on sagittal postcontrast image #17. No organized fluid collection is seen to indicate abscess. Small foci of susceptibility artifact around the heel may be related to previous surgical change. There is minimal marrow edema identified within the base of the calcaneus at the insertion of the plantar fascia. Question mild cortical loss, such that mild osteomyelitis is not excluded. This may also involve the lateral aspect of the dorsal heel. No additional foci of similar appearing marrow edema identified throughout the hindfoot. The ankle mortise is intact. No osteochondral defect is seen in the talar dome. There is no ankle joint effusion. The Achilles tendon is normal in morphology and signal intensity. The anterior tendons appear intact. There is tendinopathy of the tibialis posterior tendon. The posterior tendons are otherwise maintained with evidence of mild tenosynovitis. There is likely tearing of the peroneal tendons. There is thickening of the plantar fascia near the calcaneal insertion with surrounding edema. The fibers of the plantar fascia are intact. Generalized atrophy is observed in the regional musculature. The anterior talofibular ligament and the deltoid ligament appear maintained. IMPRESSION: 1. Diffuse superficial and deep soft tissue edema is present throughout the left lower extremity. Correlate clinically for evidence of cellulitis. 2. A wound is present along the plantar aspect of the heel with a small sinus tract extending towards the calcaneus. 3. No organized fluid collection is seen to indicate abscess. 4. There is minimal marrow edema and questionable mild cortical loss along the base of the calcaneus as above. Osteomyelitis is not excluded. 5. No additional foci of similar appearing marrow changes are identified. 6. There is thickening of the plantar fascia at the calcaneal insertion with surrounding edema. This could be related to underlying infection and/or plantar fasciitis. Clinical correlation will be required.
--- NOTE | 2020-01-23 14:21 | Pharmacy Report ---
Pharmacy Abx Initial Consult - Date of Service January 23, 2020 - Pharmacy Dosing Scope Date of Consult: 01/22 Consultation requested by: Dr. Crenshaw Pharmacy is consulted to initiate vancomycin IV/PO dosing therapy, order appropriate labs and adjust drug dose/frequency. - Subjective The patient is a 74 year old M admitted on 01/22/20 15:15. - Objective Height: 6 ft 1 in Weight: 107.3 kg Vital Signs (Past 12hrs): Vital Signs Temp Pulse Pulse Resp BP Pulse Ox 01/23/20 11:57 36.7 C 75 16 115/74 100 01/23/20 08:00 71 01/23/20 07:44 36.5 C 71 20 115/70 99 01/23/20 03:39 36.5 C 78 17 129/77 95 Lab Results (24hrs): Laboratory Tests (24 Hours) 01/23/20 01/23/20 01/22/20 06:40 06:40 12:48 WBC 6.50 Neut # (Auto) 4.67 ESR Creatinine 0.86 Est Cr Clr Drug Dosing 99.8 Total Creatine Kinase 37 L C-Reactive Protein 1.55 H 01/22/20 12:48 WBC Neut # (Auto) ESR > 90 H Creatinine Est Cr Clr Drug Dosing Total Creatine Kinase C-Reactive Protein Micro Results: 01/22/20 Unknown Gram Stain - Final Foot,Left - Risk Factors for Resistance * History of infection with a multidrug-resistant organism: foot grew MRSA/enterobacter 12/2019 * Antimicrobial use within the last 90 days [dalvance] - Assessment & Plan Assessment 74 year old M referred from wound clinic d/t deterioration of left heel wound. Prior foot cultures with MRSA/enterobacter. Foot CT negative for abscess and osteomyelitis. Ortho consulted and will likely do I&D Plan Vancomycin IV * Received loading dose of vancomycin 2500 mg (~23 mg/kg) x 1 * Patient not a candidate for vancomycin AUC nomogram dosing d/t weight >100 kg * Will dose with vancomycin 1500 mg (~14 mg/kg) iv q 10 hrs to achieve estimated trough ~15-20 mcg/ml * Will plan to check trough surrounding the 1800 dose on 01/23 to ensure therapeutic * Estimated kinetics: t1/2~8 hrs, ke~0.08 hr-1, CrCl ~99 ml/min Pharmacy will continue to follow and will adjust dose/frequency as necessary. Thank you.
--- NOTE | 2020-01-23 14:26 | Wound Consultation ---
Date of Consultation January 23, 2020 Assessment & Plan (1) Diabetic ulcer of left heel associated with type 2 diabetes mellitus, with fat layer exposed: Continue IV antibiotics. No debridement was done today. Patient would benefit from surgical debridement. Continue to dress diabetic foot ulcer of the left heel with Aquacel Ag. Patient would likely benefit from wound VAC after surgery. Continue to dress venous stasis ulcers of bilateral lower extremities with plain Aquacel. We will have patient evaluated by vascular prior to any surgery. Thank you for allow me to participate in the care of this patient. Please not hesitate to call with any questions. History of Present Illness Reason for Consultation: Diabetic foot ulcer with cellulitis Attending Physician: Nehal Crenshaw MD History of Present Illness This is a 74-year-old male who is known to the wound clinic with history of CKD stage III, CHF, COPD, CAD, type 2 diabetes with last hemoglobin A1c around 7, GERD, gout, CVA, depression, DVT, pancreatitis, pulmonary embolism, hyperlipidemia, myocardial infarction, nephrolithiasis, osteoarthritis, pe ripheral arterial disease, atrial fibrillation on Coumadin and seizures who was admitted with worsening cellulitis. Patient was sent to the ER from the wound clinic. He is on doxycycline and continued to deteriorate. Patient seen at bedside. He is currently on antibiotics. Infectious disease thinks the best chance of healing would be surgical debridement. Allergies Allergy/AdvReac Type Severity Reaction Status Date / Time albuterol Allergy Severe CHOKING Verified 01/15/20 09:18 SENSATION ipratropium Allergy Severe CHOKING Verified 01/15/20 09:18 SENSATION onion Allergy Intermediate RASH Verified 01/15/20 09:18 levofloxacin Allergy Mild other Verified 01/15/20 09:18 atorvastatin AdvReac Intermediate Muscle Pain Verified 01/15/20 09:18 metformin AdvReac Intermediate Diarrhea Verified 01/15/20 09:18 Home Medications Home Medications Medication Instructions Recorded Confirmed Type Lantus Solostar U-100 Insulin 26 unit SUBCUT HS 04/11/18 01/22/20 History allopurinol [Zyloprim] 300 mg PO QPM 04/11/18 01/22/20 History insulin aspart U-100 [Novolog 1 sliding scale dose SUBCUT AC 04/11/18 01/22/20 History PenFill U-100 Insulin] montelukast [Singulair] 10 mg PO PM 04/11/18 01/22/20 History nitroglycerin 0.4 mg SUBLINGUAL UD PRN 04/11/18 01/22/20 History primidone [Mysoline] 500 mg PO HS 04/11/18 01/22/20 History rosuvastatin [Crestor] 40 mg PO HS 04/11/18 01/22/20 History warfarin [Jantoven] 4 mg PO MOWEFR 10/14/18 01/22/20 History warfarin 6 mg PO SUTUTHSA 01/10/19 01/22/20 History aspirin 325 mg PO HS 08/08/19 01/22/20 History metoprolol succinate 25 mg PO QPM 08/08/19 01/22/20 History furosemide 20 mg tablet 40 mg PO BID tab 11/27/19 01/22/20 History ferrous sulfate [iron] 325 mg PO Q OTHER DAY 01/09/20 01/22/20 History Patient History Medical History Bronchiectasis Chronic kidney disease stage 3 Chronic left ventricular systolic heart failure COPD (chronic obstructive pulmonary disease) Coronary artery disease "S/P inferior PA, severe multivessel disease not amenable to intervention" per 2012 cath Diabetes mellitus, type 2 IDDM GERD (gastroesophageal reflux disease) Gout Hearing deficit BL KOO History of CVA (cerebrovascular accident) "YEARS AGO" - reports he has had a tremor ever since stroke. denies additional residual effects History of depression History of DVT (deep vein thrombosis) "YEARS AGO" ETIOLOGY UNK - ON WARFARIN History of pancreatitis History of pulmonary embolism on long goods drier coumadin History of tachycardia-bradycardia syndrome HLD (hyperlipidemia) Ischemic cardiomyopathy EF 45-49% Myocardial Infarction "YEARS AGO" Nephrolithiasis On home oxygen therapy 2 LPM DAILY PRN (secondary to chronic respiratory failure) Osteoarthritis PAD (peripheral artery disease) PAF (paroxysmal atrial fibrillation) DX "years ago" - ON COUMADIN - FOLLOWS W/ DR. ROYCE Rasmussen historian Seizure QUESTIONABLE- EEG 1 WEEK AGO FOR QUESTIONABLE SEIZURE (reported convulsions, loss of consciousness 1 week ago while watching TV) - [facility] - EEG unremarkable Tremor Surgical History H/O toe surgery "amputation left 3rd and 4th toe 03/2012" History of bronchoscopy History of cardiac cath MULTIPLE - NO STENTS [place] (could not recall dates - most recent in system is from 2011 [place]) History of cholecystectomy History of incision of pericardium pericardial window secondary to pericardial effusion History of pacemaker PLACED 10/2017 FOR [employer]Y-[employer] - [employer] - LAST CHECKED 05/2019 History of tonsillectomy S/P cystoscopy with ureteral stent placement 07/25/2019 [facility] Status post creation of pericardial window Family History Mother Alzheimer disease Social History Preferred Language: [place] Verde[place] Communication Ability: Effective In File Operator Required: No Beliefs That Will Affect Care: None marital status: Current Living Situation: Spouse Current Living Situation Comment: lives at [address] with current occupation: Formally employed by [employer] with 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 Quit in 1971 ; Second Hand Exposure: Yes (PREVIOUS EXPOSURE IN THE WORKPLACE) ; Hx Alcohol Use: Yes Alcohol type: beer and hard liquor Hx Substance Use: No Review of Systems Review of Systems: All systems reviewed & are unremarkable except as noted in HPI & below Physical Exam Constitutional: WD/WN, vitals as above Eyes: PERRL, conjunctivae normal, anicteric sclerae ENMT: external ear and nose normal, oropharynx normal Ears: no hearing impairment Skin: Wounds are measuring as recorded in nursing documentation. Patient was seen in the office no debridement was done secondary to his legs being too painful. Neurologic: awake; not confused Psychiatric: A+Ox3, euthymic affect Results & Data Vital Signs (Past 12 Hours) Vital Signs Temp Pulse Pulse Resp BP Pulse Ox 01/23/20 11:57 36.7 C 75 16 115/74 100 01/23/20 08:00 71 01/23/20 07:44 36.5 C 71 20 115/70 99 01/23/20 03:39 36.5 C 78 17 129/77 95 Laboratory Results 01/23/20 01/23/20 01/23/20 Range/Units 11:30 08:53 06:40 WBC (4.8-10.8) K/uL RBC (4.7-6.1) M/uL Hgb (14.0-18.0) g/dL Hct (42-52) % MCV (80-100) fL MCH (25-34) pg MCHC (32-36) g/dL RDW Std Deviation (36.4-46.3) fL RDW Coeff of Lizet (11.5-14.5) % Plt Count (130-400) K/uL MPV (7.4-10.4) fL Immature Gran % (Auto) % Neut % (Auto) % Lymph % (Auto) % [place] % (Auto) % Eos % (Auto) % Baso % (Auto) % Neut # (Auto) (1.4-6.5) K/uL Lymph # (Auto) (1.2-3.4) K/uL [place] # (Auto) (0.11-0.59) K/uL Eos # (Auto) (0-0.5) K/uL Baso # (Auto) (0-0.2) K/uL Immature Gran # (Auto) (0.00-0.02) K/uL ESR (0-14) mm/hr PT (9.0-12.0) Seconds INR (0.9-1.1) ABG pH (7.35-7.45) ABG pCO2 (35-46) mmHg ABG pO2 (80-95) mmHg ABG HCO3 (19-24) mmol/L ABG O2 Saturation (90-95) % ABG Base Excess (-9-1.8) mEq/L [place] Test (Pos) Barometric Pressure mm/Hg Oxygen Given Sodium 139 (136-145) mmol/L Potassium 3.7 (3.5-5.1) mmol/L Chloride 96 L (98-107) mmol/L Carbon Dioxide 38 H (21-32) mmol/L Anion Gap 4.0 (3-11) BUN 9 (7-18) mg/dl Creatinine 0.86 (0.6-1.4) mg/dl Est Cr Clr Drug Dosing 99.8 ml/min Est GFR ( Amer) 100.4 Est GFR (Non-Af Amer) 86.6 BUN/Creatinine Ratio 10.9 (10-20) Glucose 80 (70-99) mg/dl POC Glucose 113 H 109 H (70-99) mg/dl Calcium 8.8 (8.5-10.1) mg/dl Magnesium 1.7 L (1.8-2.4) mg/dl Total Bilirubin 0.4 (0.2-1) mg/dl AST 19 (15-37) U/L ALT 10 L (12-78) U/L Alkaline Phosphatase 117 (45-117) U/L Total Creatine Kinase (39-308) U/L C-Reactive Protein (0-0.29) mg/dl NT-Pro-B Natriuret Pep (0-900) pg/ml Total Protein 7.7 (6.4-8.2) gm/dl Albumin 2.7 L (3.4-5.0) gm/dl Globulin 5.0 H (2.5-4.0) gm/dl Albumin/Globulin Ratio 0.5 L (0.9-2) Urine Color Urine Appearance (Clear) Urine pH (4.5-7.5) Ur Specific [place] (1.000-1.030) Urine Protein (Negative) Urine Glucose (UA) (Negative) Urine Ketones (Negative) Urine Blood (Negative) Urine Nitrite (Negative) Urine Bilirubin (Negative) Urine Urobilinogen (Negative) Ur Leukocyte Esterase (Negative) Urine WBC (Auto) (0-5) /hpf Urine RBC (Auto) (0-4) /hpf U Hyaline Cast (Auto) (0-5) /lpf U Epithel Cells (Auto) (0-5) /lpf Urine Bacteria (Auto) (Negative) COVID-19 PCR (Negative) 01/23/20 01/23/20 01/22/20 Range/Units 06:40 06:40 Unknown WBC 6.50 (4.8-10.8) K/uL RBC 3.84 L (4.7-6.1) M/uL Hgb 11.6 L (14.0-18.0) g/dL Hct 38.5 L (42-52) % MCV 100.3 H (80-100) fL MCH 30.2 (25-34) pg MCHC 30.1 L (32-36) g/dL RDW Std Deviation 60.8 H (36.4-46.3) fL RDW Coeff of Lizet 16.5 H (11.5-14.5) % Plt Count 144 (130-400) K/uL MPV 10.3 (7.4-10.4) fL Immature Gran % (Auto) 0.3 % Neut % (Auto) 71.8 % Lymph % (Auto) 12.0 % [place] % (Auto) 12.3 % Eos % (Auto) 3.4 % Baso % (Auto) 0.2 % Neut # (Auto) 4.67 (1.4-6.5) K/uL Lymph # (Auto) 0.78 L (1.2-3.4) K/uL [place] # (Auto) 0.80 H (0.11-0.59) K/uL Eos # (Auto) 0.22 (0-0.5) K/uL Baso # (Auto) 0.01 (0-0.2) K/uL Immature Gran # (Auto) 0.02 (0.00-0.02) K/uL ESR (0-14) mm/hr PT 21.7 H (9.0-12.0) Seconds INR 2.1 H (0.9-1.1) ABG pH (7.35-7.45) ABG pCO2 (35-46) mmHg ABG pO2 (80-95) mmHg ABG HCO3 (19-24) mmol/L ABG O2 Saturation (90-95) % ABG Base Excess (-9-1.8) mEq/L [place] Test (Pos) Barometric Pressure mm/Hg Oxygen Given Sodium (136-145) mmol/L Potassium (3.5-5.1) mmol/L Chloride (98-107) mmol/L Carbon Dioxide (21-32) mmol/L Anion Gap (3-11) BUN (7-18) mg/dl Creatinine (0.6-1.4) mg/dl Est Cr Clr Drug Dosing ml/min Est GFR ( Amer) Est GFR (Non-Af Amer) BUN/Creatinine Ratio (10-20) Glucose (70-99) mg/dl POC Glucose (70-99) mg/dl Calcium (8.5-10.1) mg/dl Magnesium (1.8-2.4) mg/dl Total Bilirubin (0.2-1) mg/dl AST (15-37) U/L ALT (12-78) U/L Alkaline Phosphatase (45-117) U/L Total Creatine Kinase (39-308) U/L C-Reactive Protein (0-0.29) mg/dl NT-Pro-B Natriuret Pep (0-900) pg/ml Total Protein (6.4-8.2) gm/dl Albumin (3.4-5.0) gm/dl Globulin (2.5-4.0) gm/dl Albumin/Globulin Ratio (0.9-2) Urine Color Yellow Urine Appearance Clear (Clear) Urine pH 7.0 (4.5-7.5) Ur Specific [place] 1.017 (1.000-1.030) Urine Protein 2+ H (Negative) Urine Glucose (UA) Negative (Negative) Urine Ketones Negative (Negative) Urine Blood 2+ H (Negative) Urine Nitrite Negative (Negative) Urine Bilirubin Negative (Negative) Urine Urobilinogen Negative (Negative) Ur Leukocyte Esterase Negative (Negative) Urine WBC (Auto) 1-5 (0-5) /hpf Urine RBC (Auto) >30 H (0-4) /hpf U Hyaline Cast (Auto) 1-5 (0-5) /lpf U Epithel Cells (Auto) 20-30 H (0-5) /lpf Urine Bacteria (Auto) Negative (Negative) COVID-19 PCR (Negative) 01/22/20 01/22/20 01/22/20 Range/Units 19:28 16:30 15:46 WBC (4.8-10.8) K/uL RBC (4.7-6.1) M/uL Hgb (14.0-18.0) g/dL Hct (42-52) % MCV (80-100) fL MCH (25-34) pg MCHC (32-36) g/dL RDW Std Deviation (36.4-46.3) fL RDW Coeff of Lizet (11.5-14.5) % Plt Count (130-400) K/uL MPV (7.4-10.4) fL Immature Gran % (Auto) % Neut % (Auto) % Lymph % (Auto) % [place] % (Auto) % Eos % (Auto) % Baso % (Auto) % Neut # (Auto) (1.4-6.5) K/uL Lymph # (Auto) (1.2-3.4) K/uL [place] # (Auto) (0.11-0.59) K/uL Eos # (Auto) (0-0.5) K/uL Baso # (Auto) (0-0.2) K/uL Immature Gran # (Auto) (0.00-0.02) K/uL ESR (0-14) mm/hr PT (9.0-12.0) Seconds INR (0.9-1.1) ABG pH 7.34 L (7.35-7.45) ABG pCO2 73 H (35-46) mmHg ABG pO2 142 H (80-95) mmHg ABG HCO3 38 H (19-24) mmol/L ABG O2 Saturation 98.7 H (90-95) % ABG Base Excess 9.9 H (-9-1.8) mEq/L [place] Test POS (Pos) Barometric Pressure 730.3 mm/Hg Oxygen Given FLOW RATE 2 Sodium (136-145) mmol/L Potassium (3.5-5.1) mmol/L Chloride (98-107) mmol/L Carbon Dioxide (21-32) mmol/L Anion Gap (3-11) BUN (7-18) mg/dl Creatinine (0.6-1.4) mg/dl Est Cr Clr Drug Dosing ml/min Est GFR ( Amer) Est GFR (Non-Af Amer) BUN/Creatinine Ratio (10-20) Glucose (70-99) mg/dl POC Glucose 119 H (70-99) mg/dl Calcium (8.5-10.1) mg/dl Magnesium (1.8-2.4) mg/dl Total Bilirubin (0.2-1) mg/dl AST (15-37) U/L ALT (12-78) U/L Alkaline Phosphatase (45-117) U/L Total Creatine Kinase (39-308) U/L C-Reactive Protein (0-0.29) mg/dl NT-Pro-B Natriuret Pep (0-900) pg/ml Total Protein (6.4-8.2) gm/dl Albumin (3.4-5.0) gm/dl Globulin (2.5-4.0) gm/dl Albumin/Globulin Ratio (0.9-2) Urine Color Urine Appearance (Clear) Urine pH (4.5-7.5) Ur Specific [place] (1.000-1.030) Urine Protein (Negative) Urine Glucose (UA) (Negative) Urine Ketones (Negative) Urine Blood (Negative) Urine Nitrite (Negative) Urine Bilirubin (Negative) Urine Urobilinogen (Negative) Ur Leukocyte Esterase (Negative) Urine WBC (Auto) (0-5) /hpf Urine RBC (Auto) (0-4) /hpf U Hyaline Cast (Auto) (0-5) /lpf U Epithel Cells (Auto) (0-5) /lpf Urine Bacteria (Auto) (Negative) COVID-19 PCR NEGATIVE (Negative) 01/22/20 01/22/20 Range/Units 12:48 12:48 WBC (4.8-10.8) K/uL RBC (4.7-6.1) M/uL Hgb (14.0-18.0) g/dL Hct (42-52) % MCV (80-100) fL MCH (25-34) pg MCHC (32-36) g/dL RDW Std Deviation (36.4-46.3) fL RDW Coeff of Lizet (11.5-14.5) % Plt Count (130-400) K/uL MPV (7.4-10.4) fL Immature Gran % (Auto) % Neut % (Auto) % Lymph % (Auto) % [place] % (Auto) % Eos % (Auto) % Baso % (Auto) % Neut # (Auto) (1.4-6.5) K/uL Lymph # (Auto) (1.2-3.4) K/uL [place] # (Auto) (0.11-0.59) K/uL Eos # (Auto) (0-0.5) K/uL Baso # (Auto) (0-0.2) K/uL Immature Gran # (Auto) (0.00-0.02) K/uL ESR > 90 H (0-14) mm/hr PT (9.0-12.0) Seconds INR (0.9-1.1) ABG pH (7.35-7.45) ABG pCO2 (35-46) mmHg ABG pO2 (80-95) mmHg ABG HCO3 (19-24) mmol/L ABG O2 Saturation (90-95) % ABG Base Excess (-9-1.8) mEq/L [place] Test (Pos) Barometric Pressure mm/Hg Oxygen Given Sodium (136-145) mmol/L Potassium (3.5-5.1) mmol/L Chloride (98-107) mmol/L Carbon Dioxide (21-32) mmol/L Anion Gap (3-11) BUN (7-18) mg/dl Creatinine (0.6-1.4) mg/dl Est Cr Clr Drug Dosing ml/min Est GFR ( Amer) Est GFR (Non-Af Amer) BUN/Creatinine Ratio (10-20) Glucose (70-99) mg/dl POC Glucose (70-99) mg/dl Calcium (8.5-10.1) mg/dl Magnesium (1.8-2.4) mg/dl Total Bilirubin (0.2-1) mg/dl AST (15-37) U/L ALT (12-78) U/L Alkaline Phosphatase (45-117) U/L Total Creatine Kinase 37 L (39-308) U/L C-Reactive Protein 1.55 H (0-0.29) mg/dl NT-Pro-B Natriuret Pep 1616 H (0-900) pg/ml Total Protein (6.4-8.2) gm/dl Albumin (3.4-5.0) gm/dl Globulin (2.5-4.0) gm/dl Albumin/Globulin Ratio (0.9-2) Urine Color Urine Appearance (Clear) Urine pH (4.5-7.5) Ur Specific [place] (1.000-1.030) Urine Protein (Negative) Urine Glucose (UA) (Negative) Urine Ketones (Negative) Urine Blood (Negative) Urine Nitrite (Negative) Urine Bilirubin (Negative) Urine Urobilinogen (Negative) Ur Leukocyte Esterase (Negative) Urine WBC (Auto) (0-5) /hpf Urine RBC (Auto) (0-4) /hpf U Hyaline Cast (Auto) (0-5) /lpf U Epithel Cells (Auto) (0-5) /lpf Urine Bacteria (Auto) (Negative) COVID-19 PCR (Negative) Diagnostic Findings foot ct - soft tissue tract towards the calcaneous PG Care Time/CCT Total # of Minutes Spent Total Time Spent with Patient: Total time spent is greater than 50% in coordination of care (as documented) at patient's floor/unit and/or counseling patient: Coding Level of Care Code 01014 Inpt Consult Level 3 Diagnoses Diabetic ulcer of left heel associated with type 2 diabetes mellitus, with fat layer exposed E11.621; L97.422
[2020-01-23] MEDS ORDERED: FUROSEMIDE 20 MG in SYRINGE 0 ML IV ONE (16:30)
[2020-01-23] MEDS: ASPIRIN 325 MG ECTAB PO SCH (21:45)
[2020-01-23] MEDS: METOPROLOL SUCC 25MG EXT REL TAB PO SCH (21:46)
[2020-01-23] MEDS: PRIMIDONE 250 MG TAB PO SCH (21:46)
[2020-01-23] MEDS: allopurinoL 300 MG TAB PO SCH (21:47)
[2020-01-23] MEDS: MONTELUKAST SODIUM 10 MG TABLET PO SCH (21:47)
[2020-01-23] MEDS: VANCOMYCIN HCL 1,500 MG in SODIUM CHLORIDE 0.9% 500 ML IV SCH ×2 (21:53→23:37)
[2020-01-24 06:36] LABS: Prothrombin Time 20.1 Seconds (9.0-12.0)
[2020-01-24 07:05] LABS: Creatinine Clr Calc Pharmacy 99.8 ml/min; Est GFR (African American) 100.4; Est GFR (Non-African American) 86.6
[2020-01-24] MEDS ORDERED: PHYTONADIONE 5 MG TAB PO STA (08:13)
[2020-01-24] MEDS: VANCOMYCIN HCL 1,500 MG in SODIUM CHLORIDE 0.9% 500 ML IV SCH ×2 (08:17→18:21)
[2020-01-24] MEDS: FUROSEMIDE 40 MG in SYRINGE 0 ML IV SCH ×2 (08:18→16:27)
[2020-01-24] MEDS: INSULIN GLARGINE SOLOSTAR 100 UNITS/ML 3 ML PEN SC SCH ×2 (08:19→20:54)
[2020-01-24] MEDS: INSULIN ASPART 100 UNITS/ML 3 ML PEN SC SCH ×4 (08:21→20:54)
--- NOTE | 2020-01-24 10:18 | Hospitalist Progress Note ---
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 Prior wound cultures grew MRSA and enterobacter cloacae. Will follow up wound cultures in lab Received broad-spectrum IV antibiotics in ED with IV daptomycin and ertapenem. ESR greater than 90, CRP 1.55, he remains afebrile, WBC WNL. CT scan of foot 2.1 x 1.0 cm soft tissue ulcer of the plantar hindfoot is noted with mild deep subcutaneous emphysema correlating with the previously described soft tissue sinus tract. This extends towards the posterior calcaneal body. No osseous erosion identified at this time to suggest acute osteomyelitis. Acute versus subacute nondisplaced fractures involve the lateral base of the first proximal phalanx and fifth metatarsal neck. ID evaluation and recommendations noted Even though CT does not indicate osteomyelitis, there is still suspicion for this Ertapenem and daptomycin discontinued. Started on vancomycin per ID Discussed with ortho. Plan for possible I/D of left heel ulcer on Monday. Got Vit K this AM for reversal of INR. Warfarin has been on hold since yesterday NPO PMN May need IV antibiotics on discharge. CM aware (3) CHF (congestive heart failure): Acute on Chronic HFrEF in setting of ischemic cardiomyopathy Last echocardiogram 11/14/2018 revealed EF 45%, inferior and posterior wall motion abnormality, mildly enlarged left atrium, mild TR, mild pulmonary hypertension Patient with evidence of volume overload on exam, proBNP elevated On Lasix 40 mg p.o. twice daily at home Continue iv diuretics for now Strict I and O, daily weight, HH/low Na diet (4) COPD (chronic obstructive pulmonary disease): (5) Chronic respiratory failure with hypoxia and hypercapnia: 2/2 to COPD and Bronchiectasis on 2 L of O2 chronically Follows [facility] pulmonology, hx of Asp pneumonitis as well due to poor airway clearance from bronchiectasis He reported he does not tolerate and not interested in albuterol/ipratropium nebulizer treatments or MDIs -due to history of worsening cough and syncopal episode Afebrile, WBC WNL, procalcitonin WNL. He is leukopenic and denies known COVID exposure. COVID 19 test negative (6) PAF (paroxysmal atrial fibrillation): Rate and rhythm controlled Continue metoprolol Coumadin held for possible surgery as above (7) Coronary artery disease: Patient with chronic ischemic cardiomyopathy Follows [facility] cardiology Last echocardiogram 11/14/2018 revealed EF 45%, inferior and posterior wall motion abnormality, mildly enlarged left atrium, mild TR, mild pulmonary hypertension On ASA, statin, metoprolol as outpatient (8) Insulin dependent diabetes mellitus: Last A1c 6.9 on 01/07/2020 Continue Lantus/NovoLog per protocol (9) Chronic kidney disease stage 3: Baseline creatinine 1.0 Cr 0.86 Monitor (10) History of pulmonary embolism: Coumadin on hold as above (11) History of tachycardia-bradycardia syndrome: s/p PPM (12) Microscopic hematuria: known hx of kidney stones Recommend follow up urology as outpt (13) DVT prophylaxis: Coumadin on hold for OR as above Admission and Anticipated Discharge Date Admission Date: January 22, 2020 Subjective Patient seen and examined Reports left heel ulcer pain is well controlled Denied any fevers, chills, nausea, vomiting Denied any chest pain. Reports occasional cough. States shortness of breath is mildly improved Denied any urinary or GI symptoms Physical Exam Constitutional: no acute distress Eyes: PERRL, conjunctivae normal, anicteric sclerae Respiratory: no respiratory distress Gastrointestinal (Abdomen): normal bowel sounds, soft, nontender, no hepatosplenomegaly Skin: Bilateral stasis dermatitis Left heel wound with erythema, no obvious drainage, reported mild tenderness around wound Multiple wounds on right leg with dressing Neurologic: PERRL, EOMI, accommodation nl, no face palsy, no dysarthria Psychiatric: A+Ox3, euthymic affect Results & Data Results & Data ([facility]) Vital Signs (Past 12 Hours) Vital Signs Temp Pulse Pulse Pulse Resp BP BP 01/24/20 07:47 36.8 C 75 18 121/75 01/24/20 02:46 36.7 C 85 16 118/64 01/24/20 00:00 77 01/23/20 23:28 36.9 C 71 16 112/68 Pulse Ox 01/24/20 07:47 96 01/24/20 02:46 93 01/24/20 00:00 01/23/20 23:28 96 Laboratory Results Laboratory Results - last 24 hr 01/23/20 01/23/20 01/23/20 11:30 16:16 20:54 PT INR Creatinine Est Cr Clr Drug Dosing Est GFR ( Amer) Est GFR (Non-Af Amer) POC Glucose 113 H 119 H 165 H 01/24/20 01/24/20 01/24/20 06:05 06:05 07:34 PT 20.1 H INR 2.0 H Creatinine 0.86 Est Cr Clr Drug Dosing 99.8 Est GFR ( Amer) 100.4 Est GFR (Non-Af Amer) 86.6 POC Glucose 135 H (1) COPD (chronic obstructive pulmonary disease) COPD type: unspecified COPD Qualified Code(s): J44.9 - Chronic obstructive pulmonary disease, unspecified
--- NOTE | 2020-01-24 11:31 | Communication Note ---
Date of Service: January 24, 2020 Discussed with patient about pending surgery tomorrow. I&D of heel ulcer. Discussed possibility of a wound vac next week with Wound Care team. Plan for OR tomorrow. INR 2.0 today. Will need to be 1.5 or less for surgery and less than 1.2 if Anesthesia planning spinal. Dr. rCenshaw aware.
--- NOTE | 2020-01-24 16:41 | Anesthesiology Consultation ---
Date of Service January 24, 2020 Assessment & Plan Chart Review Chart Review: Acceptable Risk for Surgery and Patient NOT seen in Pre Admission Testing Consults Requested none ASA ASA4 Proposed Anesthesia Anesthesia Type: [facility] Additional Comments: covid test negative History Surgery Operation Date: 01/25/20 07:30 Proposed Procedures p Left Heel Would Incision and Belia Mcgregor MD Height/Weight Height: 6 ft 1 in Weight: 107.3 kg Allergies Allergy/AdvReac Type Severity Reaction Status Date / Time albuterol Allergy Severe CHOKING Verified 01/15/20 09:18 SENSATION ipratropium Allergy Severe CHOKING Verified 01/15/20 09:18 SENSATION onion Allergy Intermediate RASH Verified 01/15/20 09:18 levofloxacin Allergy Mild other Verified 01/15/20 09:18 atorvastatin AdvReac Intermediate Muscle Pain Verified 01/15/20 09:18 metformin AdvReac Intermediate Diarrhea Verified 01/15/20 09:18 Medications Home Medications Medication Instructions Recorded Confirmed Last Taken Lantus Solostar U-100 Insulin 26 unit SUBCUT 04/11/18 01/22/20 09/01/19 allopurinol [Zyloprim] 300 mg PO QPM 04/11/18 01/22/20 09/01/19 insulin aspart U-100 [Novolog 1 sliding scale dose SUBCUT 04/11/18 01/22/20 09/01/19 PenFill U-100 Insulin] montelukast [Singulair] 10 mg PO PM 04/11/18 01/22/20 08/31/19 nitroglycerin 0.4 mg SUBLINGUAL UD PRN 04/11/18 01/22/20 Unknown primidone [Mysoline] 500 mg PO 04/11/18 01/22/20 09/01/19 rosuvastatin [Crestor] 40 mg PO 04/11/18 01/22/20 09/01/19 warfarin [Jantoven] 4 mg PO MOWEFR 10/14/18 01/22/20 08/28/19 warfarin 6 mg PO SUTUTHSA 01/10/19 01/22/20 08/27/19 aspirin 325 mg PO 08/08/19 01/22/20 09/01/19 metoprolol succinate 25 mg PO QPM 08/08/19 01/22/20 09/02/19 06:00 furosemide 20 mg tablet 40 mg PO BID tab 11/27/19 01/22/20 Unknown ferrous sulfate [iron] 325 mg PO Q OTHER DAY 01/09/20 01/22/20 Unknown Active Medications Generic Name Dose Route Start Last Admin Trade Name Bill PRN Reason Stop Dose Admin Allopurinol 300 mg 01/22/20 21:00 01/23/20 21:47 Zyloprim PO 02/21/20 20:59 300 mg QPM ANNA Administration Aspirin 325 mg 01/22/20 21:00 01/23/20 21:45 Ecotrin PO 02/21/20 20:59 325 mg HS ANNA Administration Ferrous Sulfate 325 mg 01/23/20 09:00 01/23/20 08:54 Feosol PO 02/22/20 08:59 325 mg Q2D@0900 ANNA Administration Furosemide 40 mg/ Syringe 4 mls @ 4 mls/min 01/23/20 09:00 01/24/20 16:27 IV 02/22/20 08:59 4 mls/min BID17 ANNA Administration Vancomycin HCl 1,500 mg/ 530 mls @ 200 mls/hr 01/23/20 22:00 01/24/20 11:00 Sodium Chloride IV 01/30/20 21:59 Infused Q10H ANNA Infusion Insulin Aspart 0 units 01/22/20 17:16 01/24/20 12:11 Novolog Flexpen SC 02/21/20 17:15 3 units ACHS ANNA Administration Insulin Glargine 0 - 10 units 01/22/20 21:00 01/24/20 08:19 Lantus Solostar Pen SC 02/21/20 20:59 5 units BID ANNA Administration Protocol Metoprolol Succinate 25 mg 01/22/20 21:00 01/23/20 21:46 Toprol Xl PO 02/21/20 20:59 25 mg QPM ANNA Administration Montelukast Sodium 10 mg 01/22/20 21:00 01/23/20 21:47 Singulair PO 02/21/20 20:59 10 mg PM ANNA Administration Primidone 500 mg 01/22/20 21:00 01/23/20 21:46 Mysoline PO 02/21/20 20:59 500 mg HS ANNA Administration Warfarin Sodium 4 mg 01/22/20 18:00 01/22/20 18:52 Coumadin PO 02/21/20 17:59 4 mg MoWeFr@1600 ANNA Administration Past Medical History Medical History Bronchiectasis Chronic kidney disease stage 3 Chronic left ventricular systolic heart failure COPD (chronic obstructive pulmonary disease) Coronary artery disease "S/P inferior NH, severe multivessel disease not amenable to intervention" per 2012 cath Diabetes mellitus, type 2 IDDM GERD (gastroesophageal reflux disease) Gout Hearing deficit BL KOO History of CVA (cerebrovascular accident) "YEARS AGO" - reports he has had a tremor ever since stroke. denies additional residual effects History of depression History of DVT (deep vein thrombosis) "YEARS AGO" ETIOLOGY UNK - ON WARFARIN History of pancreatitis History of pulmonary embolism on snf coumadin History of tachycardia-bradycardia syndrome HLD (hyperlipidemia) Ischemic cardiomyopathy EF 45-49% Myocardial Infarction "YEARS AGO" Nephrolithiasis On home oxygen therapy 2 LPM DAILY PRN (secondary to chronic respiratory failure) Osteoarthritis PAD (peripheral artery disease) PAF (paroxysmal atrial fibrillation) DX "years ago" - ON COUMADIN - FOLLOWS W/ DR. ROYCE Rasmussen historian Seizure QUESTIONABLE- EEG 1 WEEK AGO FOR QUESTIONABLE SEIZURE (reported convulsions, loss of consciousness 1 week ago while watching TV) - [place] [facility] - EEG unremarkable Tremor Exercise / Class Metabolic Activity III < 4 Walking/Shop/Light housework Past Family History Family History Mother Alzheimer disease Past Surgical History Surgical History H/O toe surgery "amputation left 3rd and 4th toe 03/2012" History of bronchoscopy History of cardiac cath MULTIPLE - NO STENTS [place] (could not recall dates - most recent in system is from 2011 [place]) History of cholecystectomy History of incision of pericardium pericardial window secondary to pericardial effusion History of pacemaker PLACED 10/2017 FOR [employer] - [employer] - LAST CHECKED 05/2019 History of tonsillectomy S/P cystoscopy with ureteral stent placement 07/25/2019 [facility] Status post creation of pericardial window Past Anesthesia History No Hx of Anesthesia Complications and No Family Hx of Anesthesia Complications History of PONV No Hx of PONV and No Hx of Motion Sickness Social History Smoking Status: Former smoker tobacco type: cigarettes Smoking cigarettes per day: 4-6 packs. Quit in 1971 Hx Alcohol Use: Yes Alcohol type: beer and hard liquor alcohol intake frequency: holidays/special occasions only Hx Substance Use: No substance use type: does not use Physical Exam Vital Signs Last Vital Signs Temp 36.4 C L 01/24/20 15:57 Pulse 76 01/24/20 15:57 Resp 18 01/24/20 15:57 BP 110/68 01/24/20 15:57 Pulse Ox 94 01/24/20 15:57 Testing Laboratory Results 01/23/20 06:40 01/24/20 06:05 PT 20.1 Seconds (9.0-12.0) H 01/24/20 06:05 INR 2.0 (0.9-1.1) H 01/24/20 06:05 APTT 40.2 Seconds (21.0-31.0) H 01/22/20 12:48 Urine Color Yellow 01/22/20 Unknown Urine Appearance Clear (Clear) 01/22/20 Unknown Urine pH 7.0 (4.5-7.5) 01/22/20 Unknown Ur Specific [place] 1.017 (1.000-1.030) 01/22/20 Unknown Urine Protein 2+ (Negative) H 01/22/20 Unknown Urine Glucose (UA) Negative (Negative) 01/22/20 Unknown Urine Ketones Negative (Negative) 01/22/20 Unknown Urine Nitrite Negative (Negative) 01/22/20 Unknown Ur Leukocyte Esterase Negative (Negative) 01/22/20 Unknown Urine WBC (Auto) 1-5 /hpf (0-5) 01/22/20 Unknown Urine RBC (Auto) >30 /hpf (0-4) H 01/22/20 Unknown U Hyaline Cast (Auto) 1-5 /lpf (0-5) 01/22/20 Unknown U Epithel Cells (Auto) 20-30 /lpf (0-5) H 01/22/20 Unknown Urine Bacteria (Auto) Negative (Negative) 01/22/20 Unknown 01/22/20 12:48 Aerobic Blood Culture - Preliminary Blood No growth in Aerobic bottle after 48 hours. Anaerobic Blood Culture - Preliminary No growth in Anaerobic bottle after 48 hours. 01/22/20 12:48 Aerobic Blood Culture - Preliminary Blood No growth in Aerobic bottle after 48 hours. Anaerobic Blood Culture - Preliminary No growth in Anaerobic bottle after 48 hours. 01/22/20 Unknown Gram Stain - Final Foot,Left Deep Wound Culture - Final Coag negative Staphylococcus 01/24/20 01/24/20 11:26 07:34 POC Glucose 144 H 135 H
[2020-01-24] MEDS ORDERED: VANCOMYCIN TROUGH ONE (17:30)
--- NOTE | 2020-01-24 19:23 | Pharmacy Report ---
Pharmacy Abx Dose Short Note - Date of Service January 24, 2020 - Assessment & Plan Assessment 74 year old M receiving Vancomycin for treatment of foot ulcer/cellulitis * Day #2 of antimicrobial therapy Plan Vancomycin * Trough level of 34.1 mcg/mL is supratherapeutic * Will hold any further vancomycin doses * Will order a random vancomycin level with AM labs tomorrow to assess if trough is less than 20 mcg/mL Pharmacy will continue to follow and will adjust dose/frequency as necessary. Thank you.
[2020-01-24] MEDS: PRIMIDONE 250 MG TAB PO SCH (20:23)
[2020-01-24] MEDS: METOPROLOL SUCC 25MG EXT REL TAB PO SCH (20:23)
[2020-01-24] MEDS: ASPIRIN 325 MG ECTAB PO SCH (20:24)
[2020-01-24] MEDS: allopurinoL 300 MG TAB PO SCH (20:25)
[2020-01-24] MEDS: MONTELUKAST SODIUM 10 MG TABLET PO SCH (20:25)
[2020-01-25 06:47] LABS: Hematocrit (blood only) 39.5 % (42-52); Hemoglobin 12.2 g/dL (14.0-18.0); Mean Corpuscular Hemoglobin 30.4 pg (25-34); Mean Corpuscular Hgb Conc 30.9 g/dL (32-36); Mean Corpuscular Volume 98.5 fL (80-100); Mean Platelet Volume 9.7 fL (7.4-10.4); Platelet Count 118 K/uL (130-400); RDW Coefficient of Variation 16.1 % (11.5-14.5); Red Blood Count 4.01 M/uL (4.7-6.1); White Blood Count 4.48 K/uL (4.8-10.8)
[2020-01-25 06:58] LABS: INR 1.2 (0.9-1.1); Prothrombin Time 12.6 Seconds (9.0-12.0)
[2020-01-25] MEDS ORDERED: PROPOFOL IV EMULSION 10 MG/ML 20 ML VIAL IV ONE (07:14)
[2020-01-25] MEDS ORDERED: fentaNYL citrate 100 MCG/2 ML VIAL ONE (07:14)
[2020-01-25] MEDS ORDERED: LIDOCAINE HCL 2% 2 ML VIAL/AMP(20MG/ML) INFIL ONE (07:14)
[2020-01-25] MEDS ORDERED: MIDAZOLAM HCL 1 MG/ML 2ML VIAL ONE (07:14)
[2020-01-25 07:24] LABS: BUN Creatinine Ratio 17.4 (10-20); Calcium 8.8 mg/dl (8.5-10.1); Est GFR (African American) 99.5; Est GFR (Non-African American) 85.8; Potassium 3.5 mmol/L (3.5-5.1)
[2020-01-25] MEDS: INSULIN ASPART 100 UNITS/ML 3 ML PEN SC SCH ×4 (07:57→20:51)
--- NOTE | 2020-01-25 07:59 | History & Physical Bridge Note ---
Date of Service January 25, 2020 History & Physical Bridge Note I have examined the patient, reviewed the History & Physical and in the interval since the performance of the History & Physical I have noted the following changes of clinical significance: no changes noted
[2020-01-25] MEDS ORDERED: BACITRACIN INJ 50,000 UNIT VIAL ONE (08:00)
[2020-01-25] MEDS ORDERED: CEFAZOLIN 250 MG/ML 1 GM VIAL ONE (08:22)
[2020-01-25] MEDS ORDERED: PROMETHAZINE HCL 12.5 MG in SODIUM CHLORIDE 0.9% 50 ML IV PRN (08:59)
[2020-01-25] MEDS ORDERED: fentaNYL citrate 100 MCG/2 ML VIAL IV PRN (08:59)
[2020-01-25] MEDS ORDERED: FLUMAZENIL 0.1 MG/1 ML 10 ML VIAL IV PRN (08:59)
[2020-01-25] MEDS ORDERED: LABETALOL HCL IV 5 MG/ML 20ML IV PRN (08:59)
[2020-01-25] MEDS ORDERED: ONDANSETRON INJ 2 MG/ML 2 ML VIAL IV PRN (08:59)
[2020-01-25] MEDS ORDERED: NALOXONE HCL 0.4 MG/1 ML VIAL/CARP IV PRN ×2 (08:59→09:57)
[2020-01-25] MEDS ORDERED: ePHEDrine sulfate 50 MG/ML AMP IV PRN (08:59)
[2020-01-25] MEDS ORDERED: ROPIVACAINE 0.5% 5 MG/ML 30 ML VIAL ONE (09:18)
--- NOTE | 2020-01-25 09:23 | Operative Report ---
Post Operative Report Pre & Post Diagnosis Operation Date: 01/25/20 07:30 Pre-Op Diagnosis: Left Heel Wound Post-Op Diagnosis: Left Heel Wound I identified the patient and participated in the time-out.: Yes Procedure Operation Date: 01/25/20 07:30 Actual Procedures p Left Heel Would Irrigation and debridement (Left) - Manuel Mcgregor MD Surgeon Manuel Mcgregor MD Escrow Manager None Estimated Blood Loss 5 Findings Consistent with Post-Op Diagnosis Specimens None Drains None Anesthesia Type [facility] Complications none Disposition Accompanied Patient To Recovery: No Disposition: Recovery Room Indications Patient is a 74-year-old male developed a ulcer over the left heel. Is failed nonoperative and operative treatments plan is for irrigation debridement and then later wound VAC placement Description of Procedure Risks benefits and alternatives of surgery including but not limited to infection, DVT, pain, stiffness, need for revision surgery, damage to blood vessels damage to nerves or risks of anesthesia were discussed with the patient and she wished to proceed. Patient was identified in the laterality was confirmed and marked. A well-padded tourniquet was applied and then the limb was prepped and draped in standard manner with Betadine. The limb was exsanguinated and the tourniquet was inflated. The wound was on the plantar surface of the calcaneus by the midportion transverse in nature measuring about 2 cm in length. It tracks deeply posteriorly as well as laterally. The wound was sharply debrided down to the level of [fascia]. The wound was then thoroughly irrigated with mL of saline with Pulsavac. The more deep region was packed with quarter inch iodoform dressing but it was not an overly large amount of packing. Sterile dressings applied and the tourniquet was released. All needle and sponge counts were correct at the end of the procedure patient was transferred to the PACU in stable condition without apparent complication. The plan will be for dressing change in 2 days for removal of the packing and then evaluation by the wound care team for possible VAC placement. I attest to the content of the Intraoperative Record and any orders documented therein. Any exceptions are noted below.
--- NOTE | 2020-01-25 09:56 | Anesthesiology Progress Note ---
Date of Service January 25, 2020 Anesthesia Post Procedure Vital Signs Vital Signs: Temp Pulse Pulse Pulse Resp BP BP 01/25/20 09:34 36.5 C 92 H 19 102/70 01/25/20 09:25 94 H 17 140/71 01/25/20 09:15 96 H 15 150/76 H 01/25/20 09:09 36.9 C 98 H 14 124/77 01/25/20 07:46 90 01/25/20 03:49 37.0 C 98 H 18 116/60 01/25/20 00:17 36.7 C 69 18 112/72 01/24/20 23:16 69 01/24/20 20:05 36.8 C 77 18 131/81 01/24/20 15:57 36.4 C L 76 18 110/68 01/24/20 15:41 80 01/24/20 11:48 36.8 C 73 18 117/70 Pulse Ox 01/25/20 09:34 94 01/25/20 09:25 96 01/25/20 09:15 97 01/25/20 09:09 97 01/25/20 07:46 01/25/20 03:49 94 01/25/20 00:17 100 01/24/20 23:16 01/24/20 20:05 95 01/24/20 15:57 94 01/24/20 15:41 01/24/20 11:48 90 Transfer of Care Handoff Completed per policy Notes Mental Status: alert / awake / arousable Patient Amnestic to Procedure: Yes Nausea / Vomiting: adequately controlled Pain: adequately controlled Airway Patency, RR, SpO2: stable & adequate BP & HR: stable & adequate Hydration State: stable & adequate Anesthetic Complications: no major complications apparent
[2020-01-25] MEDS ORDERED: SODIUM CHLORIDE 0.9% 1000ML 1,000 ML IV SCH (09:57)
[2020-01-25] MEDS ORDERED: OXYCODONE HCL IR 5 MG TAB (IMMEDIATE RELEASE) PO PRN (09:57)
[2020-01-25] MEDS ORDERED: bisacodyL 10 MG SUPP PR PRN (09:57)
[2020-01-25] MEDS ORDERED: MAGNESIUM HYDROXIDE SUSP 30 ML UDC PO PRN (09:57)
[2020-01-25] MEDS: FERROUS SULFATE 325 MG TAB PO SCH (09:58)
[2020-01-25] MEDS: FUROSEMIDE 40 MG in SYRINGE 0 ML IV SCH ×2 (09:59→17:06)
[2020-01-25] MEDS: INSULIN GLARGINE SOLOSTAR 100 UNITS/ML 3 ML PEN SC SCH ×2 (09:59→20:50)
--- NOTE | 2020-01-25 10:38 | Hospitalist Progress Note ---
Date of Service January 25, 2020 Assessment & Plan (1) Diabetic ulcer of left heel associated with type 2 diabetes mellitus, with fat layer exposed: (2) MRSA infection: 72 year old white male with significant PMH of Chronic ischemic heart disease with systolic dysfunction EF 44-49%, PAF, hx of PE on oil heaterman coumadin, HLD, IDDM, COPD, bronchiectasis, CKD3, tachybradycardia syndrome status post PPM, PAD who presents to [facility] 2/2 referral from wound clinic due to deterioration of left heel wound. Prior wound cultures grew MRSA and enterobacter cloacae. Will follow up wound cultures in lab Received broad-spectrum IV antibiotics in ED with IV daptomycin and ertapenem. ESR greater than 90, CRP 1.55, he remains afebrile, WBC WNL. CT scan of foot 2.1 x 1.0 cm soft tissue ulcer of the plantar hindfoot is noted with mild deep subcutaneous emphysema correlating with the previously described soft tissue sinus tract. This extends towards the posterior calcaneal body. No osseous erosion identified at this time to suggest acute osteomyelitis. Acute versus subacute nondisplaced fractures involve the lateral base of the first proximal phalanx and fifth metatarsal neck. ID evaluation and recommendations noted Even though CT does not indicate osteomyelitis, there is still suspicion for this Ertapenem and daptomycin discontinued. Started on vancomycin per ID Discussed with ortho. Plan for possible I/D of left heel ulcer on Monday. Got Vit K yesterdaty for reversal of INR. INR is 1.2 today S/P I and D this AM Op report noted Wound culture from 01/22/20 growing CONS Resume warfarin Will follow up outstanding results and ID final recommendations May need IV antibiotics on discharge. CM aware (3) CHF (congestive heart failure): Acute on Chronic HFrEF in setting of ischemic cardiomyopathy Last echocardiogram 11/14/2018 revealed EF 45%, inferior and posterior wall motion abnormality, mildly enlarged left atrium, mild TR, mild pulmonary hypertension Patient with evidence of volume overload on exam, proBNP elevated On Lasix 40 mg p.o. twice daily at home Continue iv diuretics for now Strict I and O, daily weight, HH/low Na diet (4) COPD (chronic obstructive pulmonary disease): (5) Chronic respiratory failure with hypoxia and hypercapnia: 2/2 to COPD and Bronchiectasis on 2 L of O2 chronically Follows [facility] pulmonology, hx of Asp pneumonitis as well due to poor airway clearance from bronchiectasis He reported he does not tolerate and not interested in albuterol/ipratropium nebulizer treatments or MDIs -due to history of worsening cough and syncopal episode Afebrile, WBC WNL, procalcitonin WNL. He is leukopenic and denies known COVID exposure. COVID 19 test negative (6) PAF (paroxysmal atrial fibrillation): Rate and rhythm controlled Continue metoprolol Coumadin held for possible surgery as above (7) Coronary artery disease: Patient with chronic ischemic cardiomyopathy Follows [facility] cardiology Last echocardiogram 11/14/2018 revealed EF 45%, inferior and posterior wall motion abnormality, mildly enlarged left atrium, mild TR, mild pulmonary hypertension On ASA, statin, metoprolol as outpatient (8) Insulin dependent diabetes mellitus: Last A1c 6.9 on 01/07/2020 Continue Lantus/NovoLog per protocol (9) Chronic kidney disease stage 3: Baseline creatinine 1.0 Cr 0.88 Monitor (10) History of pulmonary embolism: Resume coumadin today (11) History of tachycardia-bradycardia syndrome: s/p PPM (12) Microscopic hematuria: known hx of kidney stones Recommend follow up urology as outpt (13) DVT prophylaxis: Coumadin Get PT/OT Admission and Anticipated Discharge Date Admission Date: January 22, 2020 Subjective Patient seen and examined He just returned from I/D in OR Reports some pain at surgical site Denied any new symptoms No fevers,chills +chronic cough. No worsening shortness of breath +leg wounds Physical Exam Constitutional: no acute distress Eyes: PERRL, conjunctivae normal, anicteric sclerae Respiratory: no respiratory distress Some wheezing. on baseline 2l/min nasal oxygen. Expiratory wheeze. Gastrointestinal (Abdomen): normal bowel sounds, soft, nontender, no hepatosplenomegaly Skin: Left leg completely covered in dressing and bandage Right leg - stasis dermatitis. Multiple wounds on right leg with dressing Neurologic: PERRL, EOMI, accommodation nl, no face palsy, no dysarthria Psychiatric: A+Ox3, euthymic affect Results & Data Results & Data ([facility]) Vital Signs (Past 12 Hours) Vital Signs Temp Pulse Pulse Pulse Resp BP Pulse Ox 01/25/20 10:24 36.4 C L 94 H 18 157/81 H 95 01/25/20 09:57 36.9 C 90 16 132/76 96 01/25/20 09:34 36.5 C 92 H 19 102/70 94 01/25/20 09:25 94 H 17 140/71 96 01/25/20 09:15 96 H 15 150/76 H 97 01/25/20 09:09 36.9 C 98 H 14 124/77 97 01/25/20 07:46 90 01/25/20 03:49 37.0 C 98 H 18 116/60 94 01/25/20 00:17 36.7 C 69 18 112/72 100 01/24/20 23:16 69 Laboratory Results Laboratory Results - last 24 hr 01/24/20 01/24/20 01/24/20 11:26 16:47 17:03 WBC RBC Hgb Hct MCV MCH MCHC RDW Std Deviation RDW Coeff of Lizet Plt Count MPV PT INR Sodium Potassium Chloride Carbon Dioxide Anion Gap BUN Creatinine Est Cr Clr Drug Dosing Est GFR ( Amer) Est GFR (Non-Af Amer) BUN/Creatinine Ratio Glucose POC Glucose 144 H 180 H Calcium Vancomycin Trough 34.1 Random Vancomycin 01/24/20 01/25/20 01/25/20 20:52 06:22 06:22 WBC RBC Hgb Hct MCV MCH MCHC RDW Std Deviation RDW Coeff of Lizet Plt Count MPV PT 12.6 H INR 1.2 H Sodium 139 Potassium 3.5 Chloride 96 L Carbon Dioxide 38 H Anion Gap 5.0 BUN 15 D Creatinine 0.88 Est Cr Clr Drug Dosing 100.0 Est GFR ( Amer) 99.5 Est GFR (Non-Af Amer) 85.8 BUN/Creatinine Ratio 17.4 Glucose 129 H POC Glucose 200 H Calcium 8.8 Vancomycin Trough Random Vancomycin 01/25/20 01/25/20 01/25/20 06:22 06:22 07:29 WBC 4.48 L RBC 4.01 L Hgb 12.2 L Hct 39.5 L MCV 98.5 MCH 30.4 MCHC 30.9 L RDW Std Deviation 58.0 H RDW Coeff of Lizet 16.1 H Plt Count 118 L MPV 9.7 PT INR Sodium Potassium Chloride Carbon Dioxide Anion Gap BUN Creatinine Est Cr Clr Drug Dosing Est GFR ( Amer) Est GFR (Non-Af Amer) BUN/Creatinine Ratio Glucose POC Glucose 131 H Calcium Vancomycin Trough Random Vancomycin 23.8 01/25/20 01/25/20 09:17 10:27 WBC RBC Hgb Hct MCV MCH MCHC RDW Std Deviation RDW Coeff of Lizet Plt Count MPV PT INR Sodium Potassium Chloride Carbon Dioxide Anion Gap BUN Creatinine Est Cr Clr Drug Dosing Est GFR ( Amer) Est GFR (Non-Af Amer) BUN/Creatinine Ratio Glucose POC Glucose 116 H 125 H Calcium Vancomycin Trough Random Vancomycin (1) COPD (chronic obstructive pulmonary disease) COPD type: unspecified COPD Qualified Code(s): J44.9 - Chronic obstructive pu lmonary disease, unspecified
[2020-01-25] MEDS ORDERED: CEFAZOLIN 2000MG 2,000 MG/15 ML SYR IV ONE (10:59)
--- NOTE | 2020-01-25 13:43 | Pharmacy Report ---
Pharmacy Abx Dose Short Note - Date of Service January 25, 2020 - Assessment & Plan Assessment 74 year old M receiving VANCOMYCIN for treatment of cellulitis. Day # 3/7 of antimicrobial therapy. Plan Vancomycin * Random level ordered for this am = 23.8 mcg/mL (still supratherapeutic). * Trough level drawn prior to 01/23 1800 dose = 34.1 mcg/mL. * Based on these 2 levels: Ke ~0.032 t1/2 ~22 hours * Will start Vancomycin 1500mg IV q24h today @ 1600 (would expect vancomycin level to be between 15-20 mcg/mL at that time). * Will check a trough level prior to the 1600 dose tomorrow and proceed cautiously. Pharmacy will continue to follow and will adjust dose/frequency as necessary. Thank you.
[2020-01-25] MEDS ORDERED: VANCOMYCIN HCL 1,500 MG in SODIUM CHLORIDE 0.9% 500 ML IV SCH (16:00)
[2020-01-25] MEDS: WARFARIN SOD 6 MG TAB PO SCH (17:06)
[2020-01-25] MEDS: CEFAZOLIN 2000MG 2,000 MG/15 ML SYR IV SCH (17:06)
[2020-01-25] MEDS: ASPIRIN 325 MG ECTAB PO SCH (20:50)
[2020-01-25] MEDS: DOCUSATE SODIUM 100 MG CAP PO SCH (20:50)
[2020-01-25] MEDS: PRIMIDONE 250 MG TAB PO SCH (20:51)
[2020-01-25] MEDS: MONTELUKAST SODIUM 10 MG TABLET PO SCH (20:52)
[2020-01-25] MEDS: allopurinoL 300 MG TAB PO SCH (20:52)
[2020-01-25] MEDS: SENNA 8.6 MG TAB PO SCH (20:52)
[2020-01-25] MEDS: METOPROLOL SUCC 25MG EXT REL TAB PO SCH (20:52)
[2020-01-26] MEDS: CEFAZOLIN 2000MG 2,000 MG/15 ML SYR IV SCH (00:11)
--- NOTE | 2020-01-26 07:33 | Orthopedic Progress Note ---
Date of Service January 26, 2020 Assessment & Plan (1) Diabetic ulcer of left heel associated with type 2 diabetes mellitus, with fat layer exposed: POD #1 left heel wound I&D Nonweightbearing left lower extremity. Pain currently well controlled. DVT prophylaxisokay to resume warfarin per medicine, SCDs. We will plan on dressing change tomorrow by wound care for evaluation for wound VAC placement. Admission and Anticipated Discharge Date Admission Date: January 22, 2020 Subjective Patient is postop day #1 from left heel I&D. He is not really having any pain. Denies any complaints currently. Denies chest pain, nausea, vomiting, dizziness, fever or chills. Shortness of breath at baseline. Review of Systems 2 Review of Systems: All systems reviewed & are unremarkable except as noted in HPI & below Physical Exam Physical Exam: Patient is sleeping upon my arrival, easily arousable. Dressing to left foot is clean, dry, and intact. Toes are mobile. No calf tenderness. Distally neurovascular status intact. Decreased sensation at baseline. Constitutional: well developed and well nourished; no acute distress Results & Data ([facility]) Vital Signs (Past 12 Hours) Vital Signs Temp Pulse Pulse Pulse Resp BP BP 01/26/20 04:20 36.5 C 78 16 114/63 01/26/20 00:00 74 01/25/20 23:32 36.4 C L 78 18 143/79 H 01/25/20 19:52 36.8 C 88 18 150/81 H Pulse Ox 01/26/20 04:20 92 01/26/20 00:00 01/25/20 23:32 100 01/25/20 19:52 93
[2020-01-26 07:42] LABS: INR 1.1 (0.9-1.1); Prothrombin Time 11.9 Seconds (9.0-12.0)
[2020-01-26 08:09] LABS: BUN Creatinine Ratio 16.2 (10-20); Calcium 8.7 mg/dl (8.5-10.1); Creatinine Clr Calc Pharmacy 93.2 ml/min; Est GFR (African American) 94.7; Est GFR (Non-African American) 81.7; Potassium 3.4 mmol/L (3.5-5.1)
[2020-01-26 08:19] LABS: Hematocrit (blood only) 38.6 % (42-52); Hemoglobin 11.5 g/dL (14.0-18.0); Mean Corpuscular Hemoglobin 30.1 pg (25-34); Mean Corpuscular Hgb Conc 29.8 g/dL (32-36); Mean Platelet Volume 10.8 fL (7.4-10.4); Platelet Count 123 K/uL (130-400); RDW Coefficient of Variation 16.3 % (11.5-14.5); RDW Standard Deviation 60.3 fL (36.4-46.3); Red Blood Count 3.82 M/uL (4.7-6.1); White Blood Count 4.05 K/uL (4.8-10.8)
[2020-01-26] MEDS: FUROSEMIDE 40 MG in SYRINGE 0 ML IV SCH ×2 (09:06→18:16)
[2020-01-26] MEDS: INSULIN ASPART 100 UNITS/ML 3 ML PEN SC SCH ×4 (09:07→20:27)
[2020-01-26] MEDS: MULTIVITAMIN TAB PO SCH (09:08)
[2020-01-26] MEDS: INSULIN GLARGINE SOLOSTAR 100 UNITS/ML 3 ML PEN SC SCH ×2 (09:08→20:27)
[2020-01-26] MEDS: DOCUSATE SODIUM 100 MG CAP PO SCH ×2 (09:16→20:15)
[2020-01-26] MEDS ORDERED: POTASSIUM CHLORIDE PWD 20 MEQ PACK PO ONE (09:51)
--- NOTE | 2020-01-26 09:55 | Hospitalist Progress Note ---
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 Prior wound cultures grew MRSA and enterobacter cloacae. Will follow up wound cultures in lab Received broad-spectrum IV antibiotics in ED with IV daptomycin and ertapenem. ESR greater than 90, CRP 1.55, he remains afebrile, WBC WNL. CT scan of foot 2.1 x 1.0 cm soft tissue ulcer of the plantar hindfoot is noted with mild deep subcutaneous emphysema correlating with the previously described soft tissue sinus tract. This extends towards the posterior calcaneal body. No osseous erosion identified at this time to suggest acute osteomyelitis. Acute versus subacute nondisplaced fractures involve the lateral base of the first proximal phalanx and fifth metatarsal neck. ID evaluation and recommendations noted Even though CT does not indicate osteomyelitis, there is still suspicion for this Ertapenem and daptomycin discontinued. Started on vancomycin per ID S/P I and D on 01/25/20 Op report noted Wound culture from 01/22/20 growing CONS Will follow up outstanding results and ID final recommendations May need IV antibiotics on discharge. CM aware Continue wound care (3) CHF (congestive heart failure): Acute on Chronic HFrEF in setting of ischemic cardiomyopathy Last echocardiogram 11/14/2018 revealed EF 45%, inferior and posterior wall motion abnormality, mildly enlarged left atrium, mild TR, mild pulmonary hypertension Patient with evidence of volume overload on exam, proBNP elevated On Lasix 40 mg p.o. twice daily at home Continue iv diuretics for now Strict I and O, daily weight, HH/low Na diet Monitor electrolytes with diuresis Replete potassium (4) COPD (chronic obstructive pulmonary disease): (5) Chronic respiratory failure with hypoxia and hypercapnia: 2/2 to COPD and Bronchiectasis on 2 L of O2 chronically Follows [facility] pulmonology, hx of Asp pneumonitis as well due to poor airway clearance from bronchiectasis He reported he does not tolerate and not interested in albuterol/ipratropium nebulizer treatments or MDIs -due to history of worsening cough and syncopal episode Afebrile, WBC WNL, procalcitonin WNL. He is leukopenic and denies known COVID exposure. COVID 19 test negative (6) PAF (paroxysmal atrial fibrillation): Rate and rhythm controlled Continue metoprolol Coumadin was initially held and vit K given prior to OR on 01/25/20 Coumadin resumed post op. INR today is 1.1. Continue to monitor (7) Coronary artery disease: Patient with chronic ischemic cardiomyopathy Follows [facility] cardiology Last echocardiogram 11/14/2018 revealed EF 45%, inferior and posterior wall motion abnormality, mildly enlarged left atrium, mild TR, mild pulmonary hypertension On ASA, statin, metoprolol as outpatient (8) Insulin dependent diabetes mellitus: Last A1c 6.9 on 01/07/2020 Continue Lantus/NovoLog per protocol (9) Chronic kidney disease stage 3: Baseline creatinine 1.0 Cr 0.93 Monitor (10) History of pulmonary embolism: Continue coumadin (11) History of tachycardia-bradycardia syndrome: s/p PPM (12) Microscopic hematuria: known hx of kidney stones Recommend follow up urology as outpt (13) DVT prophylaxis: Coumadin PT evaluating this AM. Will await recommendations Will likely need rehab Admission and Anticipated Discharge Date Admission Date: January 22, 2020 Subjective Patient seen and examined this AM Reports shortness of breath is now at baseline Reports left leg pain is well controlled this AM Denied any fevers, chills, nausea, vomiting Denied abd pain, diarrhea Denied any dysuria, frequency or urgency Physical Exam Constitutional: no acute distress Eyes: PERRL, conjunctivae normal, anicteric sclerae Respiratory: no respiratory distress on 2l/min oxygen, Dimnished breath sounds, expiratory wheeze, no crackles Cardiovascular: RRR, S1-2, 2+bilateral leg edema Gastrointestinal (Abdomen): normal bowel sounds, soft, nontender, no hepatosplenomegaly Musculoskeletal: Multiple right leg wounds with dressing Left leg bandaged. Bilateral edema Neurologic: PERRL, EOMI, accommodation nl, no face palsy, no dysarthria Psychiatric: A+Ox3, euthymic affect Results & Data Results & Data ([facility]) Vital Signs (Past 12 Hours) Vital Signs Temp Pulse Pulse Resp BP BP Pulse Ox 01/26/20 08:00 36.5 C 78 18 124/67 95 01/26/20 04:20 36.5 C 78 16 114/63 92 01/26/20 00:00 74 01/25/20 23:32 36.4 C L 78 18 143/79 H 100 Laboratory Results Laboratory Results - last 24 hr 01/25/20 01/25/20 01/25/20 10:27 11:49 16:30 WBC RBC Hgb Hct MCV MCH MCHC RDW Std Deviation RDW Coeff of Lizet Plt Count MPV PT INR Sodium Potassium Chloride Carbon Dioxide Anion Gap BUN Creatinine Est Cr Clr Drug Dosing Est GFR ( Amer) Est GFR (Non-Af Amer) BUN/Creatinine Ratio Glucose POC Glucose 125 H 126 H 141 H Calcium 01/25/20 01/26/20 01/26/20 20:17 06:34 06:39 WBC 4.05 L RBC 3.82 L Hgb 11.5 L Hct 38.6 L MCV 101.0 H MCH 30.1 MCHC 29.8 L RDW Std Deviation 60.3 H RDW Coeff of Lizet 16.3 H Plt Count 123 L MPV 10.8 H PT 11.9 INR 1.1 Sodium Potassium Chloride Carbon Dioxide Anion Gap BUN Creatinine Est Cr Clr Drug Dosing Est GFR ( Amer) Est GFR (Non-Af Amer) BUN/Creatinine Ratio Glucose POC Glucose 147 H Calcium 01/26/20 01/26/20 06:39 07:22 WBC RBC Hgb Hct MCV MCH MCHC RDW Std Deviation RDW Coeff of Lizet Plt Count MPV PT INR Sodium 138 Potassium 3.4 L Chloride 96 L Carbon Dioxide 38 H Anion Gap 4.0 BUN 15 Creatinine 0.93 Est Cr Clr Drug Dosing 93.2 Est GFR ( Amer) 94.7 Est GFR (Non-Af Amer) 81.7 BUN/Creatinine Ratio 16.2 Glucose 115 H POC Glucose 125 H Calcium 8.7 (1) COPD (chronic obstructive pulmonary disease) COPD type: unspecified COPD Qualified Code(s): J44.9 - Chronic obstructive pulmonary disease, unspecified
[2020-01-26] MEDS ORDERED: VANCOMYCIN TROUGH ONE (15:30)
--- NOTE | 2020-01-26 17:14 | Pharmacy Report ---
Pharmacy Abx Dose Short Note - Date of Service January 26, 2020 - Assessment & Plan Assessment 74 year old M receiving Vancomycin for treatment of Cellulitis * Day #4 of antimicrobial therapy * Trough today was 20.8 mcg/mL * Based on patient specific kinetics, will take approximately 10 hours for vancomycin levels to decrease to 15 mcg/mL * Will time next dose for 8 hours from now Plan Vancomycin * Trough level of 20.8 mcg/mL is supratherapeutic * Change to 1250 mg (~ 11 mg/kg) IV every 24 hours * Goal trough level: 15 to 20 mcg/mL * Trough level ordered prior to the 3rd maintenance dose on 01/28 Pharmacy will continue to follow and will adjust dose/frequency as necessary. Thank you.
[2020-01-26] MEDS: WARFARIN SOD 6 MG TAB PO SCH (18:16)
[2020-01-26] MEDS: allopurinoL 300 MG TAB PO SCH (20:15)
[2020-01-26] MEDS: METOPROLOL SUCC 25MG EXT REL TAB PO SCH (20:15)
[2020-01-26] MEDS: MONTELUKAST SODIUM 10 MG TABLET PO SCH (20:15)
[2020-01-26] MEDS: SENNA 8.6 MG TAB PO SCH (20:15)
[2020-01-26] MEDS: PRIMIDONE 250 MG TAB PO SCH (20:15)
[2020-01-26] MEDS: ASPIRIN 325 MG ECTAB PO SCH (20:16)
[2020-01-26] MEDS: VANCOMYCIN HCL 1,000 MG in SODIUM CHLORIDE 0.9% 250 ML IV SCH (23:02)
[2020-01-27] MEDS ORDERED: VANCOMYCIN HCL 1,250 MG in SODIUM CHLORIDE 0.9% 250 ML IV SCH
[2020-01-27 09:07] LABS: Hematocrit (blood only) 38.2 % (42-52); Hemoglobin 11.7 g/dL (14.0-18.0); Mean Corpuscular Hgb Conc 30.6 g/dL (32-36); Mean Corpuscular Volume 101.3 fL (80-100); Mean Platelet Volume 10.9 fL (7.4-10.4); Platelet Count 120 K/uL (130-400); RDW Standard Deviation 59.6 fL (36.4-46.3); Red Blood Count 3.77 M/uL (4.7-6.1); White Blood Count 4.72 K/uL (4.8-10.8)
[2020-01-27] MEDS: INSULIN ASPART 100 UNITS/ML 3 ML PEN SC SCH ×4 (09:11→21:00)
[2020-01-27] MEDS: INSULIN GLARGINE SOLOSTAR 100 UNITS/ML 3 ML PEN SC SCH ×2 (09:12→21:00)
[2020-01-27] MEDS: DOCUSATE SODIUM 100 MG CAP PO SCH ×2 (09:13→20:57)
[2020-01-27] MEDS: MULTIVITAMIN TAB PO SCH (09:13)
[2020-01-27] MEDS: FERROUS SULFATE 325 MG TAB PO SCH (09:13)
[2020-01-27 09:17] LABS: INR 1.2 (0.9-1.1); Prothrombin Time 12.8 Seconds (9.0-12.0)
[2020-01-27] MEDS: FUROSEMIDE 40 MG in SYRINGE 0 ML IV SCH ×2 (09:23→17:46)
[2020-01-27 10:01] LABS: BUN Creatinine Ratio 15.4 (10-20); Calcium 8.8 mg/dl (8.5-10.1); Creatinine Clr Calc Pharmacy 102.9 ml/min; Est GFR (African American) 101.4; Est GFR (Non-African American) 87.5; Magnesium 1.6 mg/dl (1.8-2.4); Potassium 3.4 mmol/L (3.5-5.1)
[2020-01-27] MEDS ORDERED: POTASSIUM CHLORIDE PWD 20 MEQ PACK PO ONE (10:59)
--- NOTE | 2020-01-27 11:01 | Hospitalist Progress Note ---
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 Prior wound cultures grew MRSA and enterobacter cloacae. Received broad-spectrum IV antibiotics in ED with IV daptomycin and ertapenem. ESR greater than 90, CRP 1.55, he remains afebrile, WBC WNL. CT scan of foot 2.1 x 1.0 cm soft tissue ulcer of the plantar hindfoot is noted with mild deep subcutaneous emphysema correlating with the previously described soft tissue sinus tract. This extends towards the posterior calcaneal body. No osseous erosion identified at this time to suggest acute osteomyelitis. Acute versus subacute nondisplaced fractures involve the lateral base of the first proximal phalanx and fifth metatarsal neck. ID evaluation and recommendations noted Even though CT does not indicate osteomyelitis, there is still suspicion for this Ertapenem and daptomycin discontinued. Started on vancomycin per ID S/P I and D on 01/25/20 Op report noted Wound culture from 01/22/20 growing CONS Discussed with ID Dr Patterson today. He recommended to do at least 14 days of iv vancomycin from date of I/D (End date will be 02/08/20) He plans to follow up with patient via the wound care center before then to determine if longer antibiotic duration is required Consent obtained for PICC line placement Continue wound care per ortho recs Get orthotics consult for offloading CAM boot (3) CHF (congestive heart failure): Acute on Chronic HFrEF in setting of ischemic cardiomyopathy Last echocardiogram 11/14/2018 revealed EF 45%, inferior and posterior wall motion abnormality, mildly enlarged left atrium, mild TR, mild pulmonary hypertension Patient with evidence of volume overload on exam, proBNP elevated Has been on iv diuretics Will change to po lasix tomorrow Strict I and O, daily weight, HH/low Na diet Monitor electrolytes with diuresis Replete potassium (4) COPD (chronic obstructive pulmonary disease): (5) Chronic respiratory failure with hypoxia and hypercapnia: 2/2 to COPD and Bronchiectasis on 2 L of O2 chronically Follows [facility] pulmonology, hx of Asp pneumonitis as well due to poor airway clearance from bronchiectasis He reported he does not tolerate and not interested in albuterol/ipratropium nebulizer treatments or MDIs -due to history of worsening cough and syncopal episode Afebrile, WBC WNL, procalcitonin WNL. He is leukopenic and denies known COVID exposure. COVID 19 test negative (6) PAF (paroxysmal atrial fibrillation): Rate and rhythm controlled Continue metoprolol Coumadin was initially held and vit K given prior to OR on 01/25/20 Coumadin resumed post op. INR today is 1.2. Continue to monitor (7) Coronary artery disease: Patient with chronic ischemic cardiomyopathy Follows [facility] cardiology Last echocardiogram 11/14/2018 revealed EF 45%, inferior and posterior wall motion abnormality, mildly enlarged left atrium, mild TR, mild pulmonary hypertension On ASA, statin, metoprolol as outpatient (8) Insulin dependent diabetes mellitus: Last A1c 6.9 on 01/07/2020 Continue Lantus/NovoLog per protocol (9) Chronic kidney disease stage 3: Cr 0.84 Monitor (10) History of pulmonary embolism: Continue coumadin (11) History of tachycardia-bradycardia syndrome: s/p PPM (12) Microscopic hematuria: known hx of kidney stones Recommend follow up urology as outpt (13) DVT prophylaxis: Coumadin PT recommends rehab. Patient is interested in rehab CM aware Admission and Anticipated Discharge Date Admission Date: January 22, 2020 Subjective Patient seen and examined. Report occasional pain left heel usually with dressing SOB at baseline No fevers, chills, nausea, vomiting No chest pain , palpitations, cough this AM No abd pain, diarrhea or constipation Physical Exam Constitutional: no acute distress Eyes: PERRL, conjunctivae normal, anicteric sclerae Respiratory: no respiratory distress on 2l/min nasal oxygen, mild expiratory wheeze, no crackles/rales Cardiovascular: RRR, s1 s2 Gastrointestinal (Abdomen): normal bowel sounds, soft, nontender, no hepatosplenomegaly Musculoskeletal: Multiple right leg wounds with dressing Left heel wound looks clean, vaccum dressing currently being applied Bilateral edema Neurologic: PERRL, EOMI, accommodation nl, no face palsy, no dysarthria Psychiatric: A+Ox3, euthymic affect Results & Data Results & Data ([facility]) Vital Signs (Past 12 Hours) Vital Signs Temp Pulse Pulse Resp BP BP Pulse Ox 01/27/20 07:57 36.8 C 84 18 110/64 96 01/27/20 03:08 36.9 C 71 16 105/65 93 01/27/20 00:00 78 01/26/20 23:11 36.8 C 87 16 106/54 L 94 Laboratory Results Laboratory Results - last 24 hr 01/26/20 01/26/20 01/26/20 11:45 15:36 18:15 WBC RBC Hgb Hct MCV MCH MCHC RDW Std Deviation RDW Coeff of Lizet Plt Count MPV PT INR Sodium Potassium Chloride Carbon Dioxide Anion Gap BUN Creatinine Est Cr Clr Drug Dosing Est GFR ( Amer) Est GFR (Non-Af Amer) BUN/Creatinine Ratio Glucose POC Glucose 142 H 144 H Calcium Magnesium Vancomycin Trough 20.8 01/26/20 01/27/20 01/27/20 20:19 07:23 08:37 WBC RBC Hgb Hct MCV MCH MCHC RDW Std Deviation RDW Coeff of Lizet Plt Count MPV PT INR Sodium 141 Potassium 3.4 L Chloride 97 L Carbon Dioxide 39 H Anion Gap 5.0 BUN 13 Creatinine 0.84 Est Cr Clr Drug Dosing 102.9 Est GFR ( Amer) 101.4 Est GFR (Non-Af Amer) 87.5 BUN/Creatinine Ratio 15.4 Glucose 114 H POC Glucose 150 H 125 H Calcium 8.8 Magnesium 1.6 L Vancomycin Trough 01/27/20 01/27/20 08:37 08:37 WBC 4.72 L RBC 3.77 L Hgb 11.7 L Hct 38.2 L MCV 101.3 H MCH 31.0 MCHC 30.6 L RDW Std Deviation 59.6 H RDW Coeff of Lizet 16.0 H Plt Count 120 L MPV 10.9 H PT 12.8 H INR 1.2 H Sodium Potassium Chloride Carbon Dioxide Anion Gap BUN Creatinine Est Cr Clr Drug Dosing Est GFR ( Amer) Est GFR (Non-Af Amer) BUN/Creatinine Ratio Glucose POC Glucose Calcium Magnesium Vancomycin Trough (1) COPD (chronic obstructive pulmonary disease) COPD type: unspecified COPD Qualified Code(s): J44.9 - Chronic obstructive pulmonary disease, unspecified
[2020-01-27] MEDS: MAGNESIUM SULFATE / D5W 1 GM/100 ML BAG IV SCH ×2 (14:07→17:33)
[2020-01-27] MEDS: WARFARIN SOD 4 MG TAB PO SCH (17:46)
[2020-01-27] MEDS: ASPIRIN 325 MG ECTAB PO SCH (20:56)
[2020-01-27] MEDS: SENNA 8.6 MG TAB PO SCH (20:57)
[2020-01-27] MEDS: METOPROLOL SUCC 25MG EXT REL TAB PO SCH (20:57)
[2020-01-27] MEDS: PRIMIDONE 250 MG TAB PO SCH (20:57)
[2020-01-27] MEDS: MONTELUKAST SODIUM 10 MG TABLET PO SCH (20:57)
[2020-01-27] MEDS: allopurinoL 300 MG TAB PO SCH (20:59)
[2020-01-27] MEDS: VANCOMYCIN HCL 1,000 MG in SODIUM CHLORIDE 0.9% 250 ML IV SCH (23:48)
[2020-01-28 06:08] LABS: Hematocrit (blood only) 39.7 % (42-52); Hemoglobin 11.5 g/dL (14.0-18.0); Mean Corpuscular Hemoglobin 28.8 pg (25-34); Mean Corpuscular Volume 99.5 fL (80-100); Mean Platelet Volume 10.3 fL (7.4-10.4); Platelet Count 122 K/uL (130-400); RDW Coefficient of Variation 16.2 % (11.5-14.5); RDW Standard Deviation 59.2 fL (36.4-46.3); Red Blood Count 3.99 M/uL (4.7-6.1); White Blood Count 4.94 K/uL (4.8-10.8)
[2020-01-28 06:17] LABS: INR 1.5 (0.9-1.1); Prothrombin Time 15.1 Seconds (9.0-12.0)
[2020-01-28 06:46] LABS: BUN Creatinine Ratio 15.2 (10-20); Calcium 9.1 mg/dl (8.5-10.1); Est GFR (African American) 101.4; Est GFR (Non-African American) 87.5; Potassium 3.6 mmol/L (3.5-5.1)
[2020-01-28] MEDS: INSULIN ASPART 100 UNITS/ML 3 ML PEN SC SCH ×2 (08:53→11:56)
[2020-01-28] MEDS: INSULIN GLARGINE SOLOSTAR 100 UNITS/ML 3 ML PEN SC SCH (08:55)
[2020-01-28] MEDS: MULTIVITAMIN TAB PO SCH (08:55)
[2020-01-28] MEDS: DOCUSATE SODIUM 100 MG CAP PO SCH (08:56)
[2020-01-28] MEDS ORDERED: FUROSEMIDE 40 MG TAB PO SCH (09:00)
--- NOTE | 2020-01-28 09:58 | Hospitalist Progress Note ---
Date of Service January 28, 2020 Assessment & Plan Admission and Anticipated Discharge Date Admission Date: January 22, 2020 Results & Data Results & Data ([facility]) Vital Signs (Past 12 Hours) Vital Signs Temp Pulse Pulse Resp BP BP Pulse Ox 01/28/20 07:48 36.8 C 74 18 121/74 96 01/28/20 04:00 36.9 C 66 18 104/64 95 01/27/20 23:44 36.5 C 74 20 132/64 95 01/27/20 23:30 66
--- NOTE | 2020-01-28 13:48 | Discharge Summary ---
Date of Service January 28, 2020 Admission HPI Per Admitting Provider This is a 72 year old white male with significant PMH of Chronic ischemic heart disease with systolic dysfunction EF 44-49%, PAF, hx of PE on longterm coumadin, HLD, IDDM, COPD, bronchiectasis, CKD3, tachybradycardia syndrome status post PPM, PAD who presents to [facility] 2/2 referral from wound clinic due to deterioration of left heel wound. He was seen and evaluated today by Yari Alston and due to wound deterioration concern for osteomyelitis inpatient admission was recommended. Wound culture was repeated but he did not undergo debridement. A fragment of bone was dislodged by wound R N which was sent for wound culture. In regards to antibiotics he did receive IV Dalvance on 01/10/2020 but second dose was not approved by insurance. He otherwise has not been taking any antibiotics. Prior wound cultures on 11/27/2019 grew Enterobacter cloacae and MRSA. Repeat cultures on 12/24 in 12/30 also grew MRSA. He complains of left heel pain and has been noncompliant with weightbearing status. He denies any fever, chills, sweats, lightheadedness, dizziness, chest pain or palpitation. He chronically has shortness of breath secondary to COPD and uses 2 L of O2. He feels his breathing is at baseline and he does have a chronic cough that is occasionally productive and occasionally dry. Although visibly short of breath and wheezing he states, "this is how I always sound." He admits to being allergic to albuterol and ipratropium and therefore is unable to tolerate nebulizer or MDI treatment. He feels his lower extremity swelling is at its baseline and he denies any weight gain. He says his baseline weight is approximately 259 pounds, but does not weigh himself on a regular basis. He denies any hemoptysis, nausea, vomiting, abdominal pain, diarrhea. Last BM was yesterday. He denies any dysuria, gross urgency or frequency with urination. He admits to being compliant with his medications. He has not taken any medications so far today. He is an insulin-dependent montserrat betic with recent improvement in control with an A1c of 6.9 on 01/07/2020. In ED patient remained hemodynamically stable. He was saturating at 100% on 2 L of O2. Lab abnormalities notable for H&H 12.7 and 41.2, WBC 5.87, platelet 151, INR 1.9, K3.9, CO2 41, BUN 9, creatinine 0.92, lactate 1.1, pro-Michael WNL. Urinalysis positive for blood and RBC. Chest x-ray 1. Continued radiographic evidence of congestive failure with cardiomegaly bilateral pleural effusions and mild interstitial thickening/edema. 2. Basilar airspace opacity statistically atelectatic although a superimposed pneumonia could appear similar. CT Foot - 2.1 x 1.0 cm soft tissue ulcer of the plantar hindfoot is noted with mild deep subcutaneous emphysema correlating with the previously described soft tissue sinus tract. This extends towards the posterior calcaneal body. No osseous erosion identified at this time to suggest acute osteomyelitis. He did receive broad-spectrum IV antibiotics with ertapenem and daptomycin. Admission Exam Per Admitting Provider Constitutional: Morbidly obese, male, tachypneic with audible wheezing, vitals as above,sitting up in bed, pleasant, answers questions appropriately Head: Normocephalic, Atraumatic Eyes: PERRL, conjunctivae normal, anicteric sclerae ENMT: external ear and nose normal, oropharynx normal, poor dentition Neck: trachea midline, no thyromegaly normal visual inspection Respiratory: Tachypnea, audible wheezing, increased respiratory effort, diffuse expiratory and expiratory wheezing, does improve with coughing but does not clear,no rales, rhonchi. + accessory muscle use Cardiovascular: RRR, no murmur, bilateral lower extremity erythematous lymphedema/venous stasis, bilateral +1 pedal pulse vessels: no JVD or carotid bruit Chest: normal inspection of chest Abdomen: Protuberant abdomen, firm,normal bowel sounds, nontender, no hepatosplenomegaly appreciated Musculoskeletal: no cyanosis or clubbing, extremities motor strength 5/5 Skin: Bilateral lower extremity venous stasis dermatitis, erythematous with multiple lower extremity wounds as noted by pictures in chart, specifically left heel wound with apparent tracking, erythema, serosanguineous drainage, warm and dry normal turgor Neurologic: PERRL, EOMI, accommodation nl, no face palsy, no dysarthria CN's II-XI intact bilaterally and moves all extremities Psychiatric: A+Ox3, euthymic affect Lymphatic: no cervical or axillary lymphadenopathy : deferred Principal Diagnosis Left heel diabetic wound S/P Irrigation and debridement Right leg wounds Acute on chronic systolic heart failure Discharge Exam Constitutional no acute distress Eyes PERRL, conjunctivae normal, anicteric sclerae Respiratory no respiratory distress On baseline 2l/min nasal oxygen, mild expiratory wheeze, no crackles or rales Cardiovascular RRR, S1 S2 Gastrointestinal (Abdomen) normal bowel sounds, soft, nontender, no hepatosplenomegaly Musculoskeletal Multiple right leg wounds with clean dressing Left heel wound looks clean, vacuum dressing in place. Missing 2nd and 3rd toes Bilateral edema Neurologic PERRL, EOMI, accommodation nl, no face palsy, no dysarthria Psychiatric A+Ox3, euthymic affect Discharge Data Allergies Allergy/AdvReac Type Severity Reaction Status Date / Time albuterol Allergy Severe CHOKING Verified 01/15/20 09:18 SENSATION ipratropium Allergy Severe CHOKING Verified 01/15/20 09:18 SENSATION onion Allergy Intermediate RASH Verified 01/15/20 09:18 levofloxacin Allergy Mild other Verified 01/15/20 09:18 atorvastatin AdvReac Intermediate Muscle Pain Verified 01/15/20 09:18 metformin AdvReac Intermediate Diarrhea Verified 01/15/20 09:18 Consultations 01/22/20 14:13 ED Decision to Admit Stat 01/22/20 15:25 Consult Orthopedic Surgery Routine 01/22/20 17:16 Consult Case Management - Discharge Planning Routine Consult Infectious Diseases Routine 01/22/20 17:18 Consult Wound Care Provider Routine 01/25/20 09:57 Consult Case Management - Discharge Planning Routine Procedures Performed Operation Date: 01/25/20 07:30 Actual Procedures p Left Heel Would Incision and Draiange(Left) - Manuel Mcgregor MD Ordered Studies 01/22/20 12:24 CT foot LT wo con Stat Demineralized appearance of the bones. Partial bony fusion of the middle subtalar joint with complete osseous fusion of the posterior subtalar joint. There is moderate tibiotalar osteoarthritis. No definite osteochondral defect or intra-articular loose body identified. Moderate sized plantar and calcaneal enthesophytes of the calcaneus. The distal fifth digit is only partially imaged. There is extension of the metatarsal-phalangeal joints and flexion of the interphalangeal joints. No osseous erosions identified to suggest acute osteomyelitis. Moderate multifocal osteoarthritis. 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 Acute versus subacute nondisplaced fracture involving the fifth metatarsal neck (image 167 series 3). Bipartite medial hallux sesamoid. There is suggestion of an acute nondisplaced intra-articular fracture involving the lateral base of the first proximal phalanx, image 178 series 3. There is a cutaneous ulcer involving the plantar aspect of the hindfoot superficial to the posterior calcaneal body which measures approximately 2.1 x 1.0 cm in transverse and AP dimensions respectively. Mild degree of underlying subcutaneous emphysema with sinus tract. No drainable fluid collection. There is diffuse subcutaneous edema throughout the foot and ankle which is moderate to extensive. Arterial calcifications are noted with moderate muscular atrophy of the foot. Tendons and ligaments are grossly unremarkable, however these structures are evaluated by MRI. IMPRESSION: 1. 2.1 x 1.0 cm soft tissue ulcer of the plantar hindfoot is noted with mild deep subcutaneous emphysema correlating with the previously described soft tissue sinus tract. This extends towards the posterior calcaneal body. No osseous erosion identified at this time to suggest acute osteomyelitis. 2. No drainable fluid collection. 3. Moderate to extensive subcutaneous edema suggestive of probable cellulitis. Venous stasis or lymphedema also considered. 4. Acute versus subacute nondisplaced fractures involve the lateral base of the first proximal phalanx and fifth metatarsal neck. 5. Arterial calcifications with diffuse muscular atrophy suggestive of chronic denervation changes. 6. Prior partial amputation of the second and third digits. 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 Prior wound cultures grew MRSA and enterobacter cloacae. Received broad-spectrum IV antibiotics in ED with IV daptomycin and ertapenem. ESR greater than 90, CRP 1.55, he remains afebrile, WBC WNL. CT scan of foot 2.1 x 1.0 cm soft tissue ulcer of the plantar hindfoot is noted with mild deep subcutaneous emphysema correlating with the previously described soft tissue sinus tract. This extends towards the posterior calcaneal body. No osseous erosion identified at this time to suggest acute osteomyelitis. Acute versus subacute nondisplaced fractures involve the lateral base of the first proximal phalanx and fifth metatarsal neck. ID evaluation and recommendations noted Even though CT does not indicate osteomyelitis, there is still suspicion for this Ertapenem and daptomycin discontinued. Started on vancomycin per ID S/P Irrigation and Debridement on 01/25/20 Op report noted. Did report wound was on the plantar surface of the calcaneus by the midportion transverse in nature measuring about 2 cm in length. It tracks deeply posteriorly as well as laterally Wound culture from 01/22/20 growing CONS Discussed with ID Dr Patterson. He recommended to do at least 14 days of iv vancomycin from date of I/D (End date will be 02/08/20) He plans to follow up with patient via the wound care center before then to determine if longer antibiotic duration is required Consent obtained for PICC line placement which was placed yesterday Vanc trough level at rehab on 01/30/20 Continue wound care per ortho recs at rehab Seen by orthotics and provided offloading CAM boot Discharge to rehab (3) CHF (congestive heart failure): Acute on Chronic HFrEF in setting of ischemic cardiomyopathy Last echocardiogram 11/14/2018 revealed EF 45%, inferior and posterior wall motion abnormality, mildly enlarged left atrium, mild TR, mild pulmonary hypertension Patient with evidence of volume overload on exam, proBNP elevated Treated with iv diuretics Required some electrolyte repletion during diuresis Continue home dose lasix (4) COPD (chronic obstructive pulmonary disease): (5) Chronic respiratory failure with hypoxia and hypercapnia: 2/2 to COPD and Bronchiectasis on 2 L of O2 chronically Follows [facility] pulmonology, hx of Asp pneumonitis as well due to poor airway clearance from bronchiectasis He reported he does not tolerate and not interested in albuterol/ipratropium nebulizer treatments or MDIs -due to history of worsening cough and syncopal episode Afebrile, WBC WNL, procalcitonin WNL. He is leukopenic and denies known COVID exposure. COVID 19 test negative (6) PAF (paroxysmal atrial fibrillation): Rate and rhythm controlled Continue metoprolol Coumadin was initially held and vit K given for reversal prior to OR on 01/25/20 Coumadin resumed post op. INR today is 1.5 Continue home warfarin and INR management (7) Coronary artery disease: Patient with chronic ischemic cardiomyopathy Follows [facility] cardiology Last echocardiogram 11/14/2018 revealed EF 45%, inferior and posterior wall motion abnormality, mildly enlarged left atrium, mild TR, mild pulmonary hypertension On ASA, statin, metoprolol as outpatient (8) Insulin dependent diabetes mellitus: Last A1c 6.9 on 01/07/2020 Continue home antidiabetics (9) Chronic kidney disease stage 3: Cr 0.84 Monitor (10) History of pulmonary embolism: Continue coumadin (11) History of tachycardia-bradycardia syndrome: s/p PPM (12) Microscopic hematuria: known hx of kidney stones Recommend follow up urology as outpt Total Time Total Time Spent Total Time Spent (In Minutes): 50 Total Time Includes: Examination of the Patient, Discharge Planning, Medication Reconciliation and Communication With Other Providers Discharge Plan Discharge Items Patient Disposition: Transfer Inpatient Rehab Fac Reason For Visit: L HEEL WOUND COPD EXAC Discharge Diagnosis: Left heel diabetic wound S/P Irrigation and debridement Right leg wounds Acute on chronic systolic heart failure Condition on Discharge: Fair Activity: Per Instructions section Activity Comment: Per physical therapist recommendations at rehab. Weightbearing: Left non-weightbearing Non-emergency contact: Primary Care Provider and Surgeon Call non-emergency contact if: you have any medication questions Follow-up/Referrals: Ron Mortensen, [Primary Care Provider] - Diet: Carb Consistent or DM2 and Heart Healthy Fluids: 1800ml (7 cups) Ambulatory Orders: Vancomycin Trough (Routine) Timeframe: 2 Days Location: Determined by Patient Ordered By: Nehal Dave Attending Provider Instructions: Mr Canseco. You came to the hospital for worsening left heel wound. You were evaluated and found to have infection of the wound. You had irrigation and debridement by the orthopedic surgeon. You were started on iv vancomycin and will need to continue this for at least 14 days from date of debridement. Tentative end date for iv antibiotics is 02/08/2020. You will need to follow up with wound care center before then. The infectious disease specialist will coordinate with wound care center to determine if you need longer duration of antibiotics. Once antibiotic is completed, PICC line can be removed. Please check vancomycin trough level on 01/30/2020 and adjust dose as needed You were also treated for heart failure exacerbation with iv diuretics. Please continue your medications as prescribed. You are being discharged to rehab. It was a pleasure taking care of you Pending Studies at Discharge: No Stand-Alone Forms: My [facility] Skilled Items Patient informed of condition?: Yes DNR: No Discharge Level of Care: Acute rehab Communicable Disease: No Discharge Prognosis: Stable Lines: PICC Urinary Catheter: No Medications and DC Order Prescriptions: New polyethylene glycol 3350 [Miralax] 17 gram Powder In Packet 17 g PO DAILY PRN (Reason: constipation) Qty: 14 RF: 0 vancomycin 1,000 mg recon soln See Rx Instructions .ROUTE .COMPLEX Qty: 11 RF: 0 Continued primidone [Mysoline] 250 mg Tablet 500 mg PO HS RF: 0 nitroglycerin 0.4 mg Tablet, Sublingual 0.4 mg Sublingual UD PRN (Reason: Chest Pain) RF: 0 montelukast [Singulair] 10 mg Tablet 10 mg PO PM RF: 0 allopurinol [Zyloprim] 300 mg Tablet 300 mg PO QPM RF: 0 insulin aspart U-100 [Novolog PenFill U-100 Insulin] 100 unit/mL Cartridge 1 sliding scale dose SUBCUT AC RF: 0 rosuvastatin [Crestor] 40 mg Tablet 40 mg PO HS RF: 0 Lantus Solostar U-100 Insulin 100 unit/mL (3 mL) Insulin Pen 26 unit SUBCUT HS RF: 0 furosemide 20 mg tablet 40 mg PO BID RF: 0 ferrous sulfate [iron] 325 mg (65 mg iron) Tablet 325 mg PO Q OTHER DAY RF: 0 warfarin [Jantoven] 2 mg tablet 4 mg PO MOWEFR RF: 0 warfarin 2 mg Tablet 6 mg PO SUTUTHSA RF: 0 aspirin 325 mg Tablet 325 mg PO HS RF: 0 metoprolol succinate 50 mg Tablet Extended Release 24 Hr 25 mg PO QPM RF: 0 Discharge Orders: Discharge Order (Routine); Ordered 01/28/20 Ordered By: Nehal Crenshaw Admission Data Admit Date/Time: 01/22/20 15:15 Attending Provider: Nehal Crenshaw I. Admit Provider: Ernesto Gonzalez Primary Care Provider: Ron Mortensen Other Providers: Ernesto Gonzalez ; Tho Christianson ; Jagdish Corcoran ; Ankush Paulson ; David Patterson I. ; Ryan Arroyo II ; Kathie Berry ; Wilder Honeycutt ; Hossein Vallejo ; [place], ; Jonah Stover at [place] Other Interventions: Discharge Summary Assessment (RN) Last Done: 01/28/20 17:03 DC Date/Time DO NOT enter until pt leaves facility: 01/28/20 16:46
--- NOTE | 2020-01-28 15:14 | Orthopedic Progress Note ---
Date of Service January 28, 2020 Assessment & Plan (1) Diabetic ulcer of left heel associated with type 2 diabetes mellitus, with fat layer exposed: POD #3 left heel wound I&D Nonweightbearing left lower extremity. Pain currently well controlled. [facility] He will need the wound VAC changes every 72 hours or as per instructions from wound care team. You also need to follow-up with Dr. Schreiber in the future to reexamine his heel wound. A lso follow-up with wound care center here at [place] on a regular basis. Admission and Anticipated Discharge Date Admission Date: January 22, 2020 Subjective POD 3 Patient resting comfortably. Wound evaluated yesterday with Lakshmi Sandhu from wound care. At that time was decided to go ahead and put a wound VAC on the left heel ulcer. Wound VAC was successfully placed. Consult was placed for orthotics to place the patient in offloading boot for that side as well and try to keep him nonweightbearing. Physical Exam Physical Exam: Wound VAC is on and functioning properly. Patient has been fitted for his orthotics. Results & Data ([facility]) Vital Signs (Past 12 Hours) Vital Signs Temp Pulse Pulse Resp BP BP Pulse Ox 01/28/20 13:51 36.7 C 88 66 18 118/63 132/64 95 01/28/20 12:00 36.7 C 66 18 118/63 95 01/28/20 07:48 36.8 C 74 18 121/74 96 01/28/20 04:00 36.9 C 66 18 104/64 95
[2020-01-28] MEDS: WARFARIN SOD 6 MG TAB PO SCH (15:45)
[2020-01-28] MEDS ORDERED: VANCOMYCIN TROUGH ONE (23:30)
== END 2020-01-28 16:46 | DRG 622 ==
LOC: ED 11:10 → 2S 15:15 → SUATTDRO 15:15 → 2S 17:17

== ENCOUNTER 2020-02-25 18:35 | Inpatient (IN) ==
[2020-02-25] MEDS ORDERED: ACETAMINOPHEN 1,000 MG/100 ML VIAL IV STA (18:54)
[2020-02-25] MEDS ORDERED: methylPREDNISolone 125 MG/2 ML VIAL IV STA (18:55)
[2020-02-25 19:03] LABS: Basophils # (auto) 0.02 K/uL (0-0.2); Basophils % (auto) 0.2 %; Eosinophils # (auto) 0.05 K/uL (0-0.5); Eosinophils % (auto) 0.4 %; Hematocrit (blood only) 38.4 % (42-52); Hemoglobin 12.1 g/dL (14.0-18.0); Immature Granulocytes # (auto) 0.03 K/uL (0.00-0.02); Immature Granulocytes % (auto) 0.2 %; Lymphocytes # (auto) 0.53 K/uL (1.2-3.4); Lymphocytes % (auto) 4.3 %; Mean Corpuscular Hemoglobin 30.9 pg (25-34); Mean Corpuscular Hgb Conc 31.5 g/dL (32-36); Mean Platelet Volume 10.6 fL (7.4-10.4); Monocytes # (auto) 0.51 K/uL (0.11-0.59); Monocytes % (auto) 4.1 %; Neutrophils # (auto) 11.17 K/uL (1.4-6.5); Neutrophils % (auto) 90.8 %; Platelet Count 121 K/uL (130-400); RDW Coefficient of Variation 14.3 % (11.5-14.5); RDW Standard Deviation 50.9 fL (36.4-46.3); Red Blood Count 3.92 M/uL (4.7-6.1); White Blood Count 12.31 K/uL (4.8-10.8)
--- NOTE | 2020-02-25 19:03 | Emergency Department Note ---
Impression & Plan Respiratory failure, Pulmonary edema cardiac cause, Hypomagnesemia, Pneumonia, Sepsis ED Provider Note Provider: Alton Ansari MD DATE OF SERVICE: 02/25/2020 CHIEF COMPLAINT: Shortness of breath HISTORY OF PRESENT ILLNESS: Patient is a 74-year-old gentleman with a past medical history of diabetes, COPD, CHF, PE on Coumadin, PAD, paroxysmal atrial fibrillation, CKD, and recent hospitalization for MRSA infection of his left foot presenting today from home stating that he became nauseous and short of breath this morning. Patient currently denies chest pain abdominal pain or nausea. Patient denies fever at home. Found to be febrile at 101 Fahrenheit by EMS. Patient was not on his home oxygen per EMS when they arrived at his spouse to be on 2 L normally. Patient endorses shortness of breath. Denies any leg swelling. Patient states his leg wounds have been improving. Patient denies trauma or sick contact. Patient states his been home for about a week with his from residential facility that he was at after his recent discharge in January. Patient had a low INR earlier today. EMS did give the patient albuterol neb treatment patient states this seems to have made things somewhat worse. Denies any Tylenol today. REVIEW OF SYSTEMS: A total of 10 review of systems was obtained and negative except as stated above in the HPI. PAST MEDICAL HISTORY: As noted above MEDICATIONS: Reviewed medication list SOCIAL HISTORY: Patient lives at home in [place] with his . Former smoker. PHYSICAL EXAM: GENERAL: alert sitting on the stretcher with increased work of breathing on oxygen and does appear somewhat drowsy. Head: normocephalic and atraumatic EYES: No injection, discharge or icterus. NECK: Trachea midline. Supple. ENT: Mucous membranes pink and moist. LUNGS: Airway patent. Breath sounds diminished on the left with expiratory wheezing throughout. Increased work of breathing noted HEART: Regular rate and rhythm. No chest wall tenderness ABDOMEN: Soft and non-tender, without guarding or rebound. SKIN: Acyanotic, warm, dry, without rashes EXTREMITIES: Bilateral lower extremities edematous. Left lower extremity proximally 1+ in a walking boot bandaged. The right lower extremity is a compression stockings and at least 3+ swollen. NEUROLOGICAL: No focal deficits. No aphasia. No facial droop or slurred speech however the patient looks fatigued and drowsy on exam. EK bpm. Sinus tachycardia with first-degree AV block. Do not see clear evidence of atrial fib. No evidence of ST elevation. Some lateral T wave inversions are notable. QTC within normal limits. CONTINUOUS CARDIAC MONITORING: was ordered and showed a heart rate of 102 bpm in sinus tachycardia with a first-degree AV block. Patient's hypertension was referred to the [facility] COURSE: 1847 Patient was first seen and H&P performed. 1957 Patient reassessed and updated. [facility]. Patient's laboratory studies and imaging reviewed. Differential includes Viral syndrome, otitis, pharyngitis, pneumonia, influenza, meningitis, urinary tract infection, sepsis, bacteremia, as well as other pathologies. IMPRESSION/MEDICAL DECISION MAKING: Concern for possible infection given his fever and recent history. Patient has significant work of breathing issues at this time and is diffusely wheezy. Given Tylenol for the fever. Basic labs, cultures, lactate was ordered. VBG was ordered. Given a dose of steroids and magnesium levels respiratory symptoms. Patient declines nebulized treatments. Discussed with the patient given his work of breathing and tenuous situation I did recommend at this stage either high flow oxygen or BiPAP. Patient initially stated he would not want these. Informed the patient if he got worse these were next step and if we did not act on them he could get significantly more sick or . He was aware of this. Patient also states he would not want a breathing tube or intubated. Given his multiple hospitalizations recently significant respiratory distress, rapid COVID test was ordered and isolation protocols were in place. Discussed with pharmacy given his recent antibiotic course and resistance patterns to cover broadly given initial dose here of imipenem and vancomycin initially. Patient anything appears somewhat volume overloaded and not initially bolused with IV fluids. Does have a significant history of CHF. Abdomen without significant tenderness. Likely no evidence of significant elevation of his lipase or bilirubin. AST slightly above normal. ALT is normal. proBNP significant elevated. Troponin detectable not abnormal. Magnesium significantly low. Renal function somewhat worse than last baseline. Not acidotic VBG 7.36 but some elevated CO2 at 5 7 but appears compensated at this time. INR is subtherapeutic 1.4. Leukocytosis of 12.3 noted. Chest x-ray completed shows worsened lower airspace opacities due to concern for fluid overload additional possible overlying infection. Given some Lasix. Lactate is mildly elevated 2.6. Discussed with the [facility] hospitalist. Rapid COVID pending later returns negative. DIAGNOSIS: Sepsis, pneumonia, fluid overload, hypoxia, respiratory failure, hypomagnesemia DISPOSITION: Hospitalist will evaluate Critical Care I have personally spent 32 minutes of critical care time in the direct managem ent of this patient. This includes bedside care, interpretation of diagnostic studies, and testing, discussion with consultants, patient, and family members, and other required patient management activities. These 32 minutes is in excess of all separately billable procedures. Past Med/Surg History Social History Smoking Status: Former smoker Tobacco Type: Cigarettes Cigarettes Per Day: 4-6 packs. 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 employed by [employer] with [employer] exposure x 17 years Other Information That Helps Us Care for You: No Feels Safe at Home: Yes Safety Concerns: Feels Safe At This Time Allergies Allergies Allergy/AdvReac Type Severity Reaction Status Date / Time albuterol Allergy Severe CHOKING Verified 02/25/20 20:56 SENSATION ipratropium Allergy Severe CHOKING Verified 02/25/20 20:56 SENSATION onion Allergy Intermediate RASH Verified 02/25/20 20:56 levofloxacin Allergy Mild other Verified 02/25/20 20:56 atorvastatin AdvReac Intermediate Muscle Pain Verified 02/25/20 20:56 metformin AdvReac Intermediate Diarrhea Verified 02/25/20 20:56 Home Meds Home Medications Medication Instructions Recorded Confirmed Lantus Solostar U-100 Insulin 26 unit SUBCUT HS 04/11/18 02/25/20 allopurinol [Zyloprim] 300 mg PO QPM 04/11/18 02/25/20 insulin aspart U-100 [Novolog 1 sliding scale dose SUBCUT AC 04/11/18 02/25/20 PenFill U-100 Insulin] montelukast [Singulair] 10 mg PO PM 04/11/18 02/25/20 nitroglycerin 0.4 mg SUBLINGUAL UD PRN 04/11/18 02/25/20 primidone [Mysoline] 500 mg PO HS 04/11/18 02/25/20 rosuvastatin [Crestor] 40 mg PO HS 04/11/18 02/25/20 warfarin 0 mg PO UD 01/10/19 02/25/20 aspirin 325 mg PO HS 08/08/19 02/25/20 metoprolol succinate 25 mg PO QPM 08/08/19 02/25/20 furosemide 20 mg tablet 40 mg PO BID tab 11/27/19 02/25/20 ferrous sulfate [iron] 325 mg PO Q OTHER DAY 01/09/20 02/25/20 Previous Rx's Medication Instructions Recorded polyethylene glycol 3350 [Miralax] 17 g PO DAILY PRN #14 ea 01/28/20 Results & Data (ED) Vital Signs Vital Signs - 24 hr 02/25/20 18:57 02/25/20 19:00 02/25/20 19:09 Temperature 38.8 C H Temperature Source Oral Pulse Rate 107 H 108 H 108 H Pulse Rate from SpO2 Sensor 108 H 108 H Respiratory Rate 26 H 26 H 26 H Respiratory Effort / Characteristics Labored Respiratory Depth Shallow Respiratory Pattern Tachypnea Blood Pressure 167/80 H 167/80 H Blood Pressure Mean 109 127 Blood Pressure Position Sitting Pulse Oximetry 100 99 99 Oxygen Delivery Method Nasal Cannula Oxygen Flow Rate 6 Sepsis Recent Fever Within 48 Hours Yes Sepsis New/Unexplained Change in Mental Status No Sepsis Action Taken by Nursing Physician Notified Oxygen Flow Rate - Titration 2 Pulse Oximetry Post Tiitration 99 02/25/20 19:15 02/25/20 19:25 02/25/20 19:30 Temperature Temperature Source Pulse Rate 107 H 105 H 103 H Pulse Rate from SpO2 Sensor 107 H 104 H 103 H Respiratory Rate 28 H 27 H 26 H Respiratory Effort / Characteristics Respiratory Depth Respiratory Pattern Blood Pressure 169/72 H 162/64 H 155/65 H Blood Pressure Mean 110 108 92 Blood Pressure Position Pulse Oximetry 99 99 99 Oxygen Delivery Method Oxygen Flow Rate Sepsis Recent Fever Within 48 Hours Sepsis New/Unexplained Change in Mental Status Sepsis Action Taken by Nursing Oxygen Flow Rate - Titration Pulse Oximetry Post Tiitration 02/25/20 19:31 02/25/20 19:45 02/25/20 19:46 Temperature Temperature Source Pulse Rate 103 H 101 H 101 H Pulse Rate from SpO2 Sensor 103 H 101 H 101 H Respiratory Rate 26 H 25 H 27 H Respiratory Effort / Characteristics Respiratory Depth Respiratory Pattern Blood Pressure 135/60 Blood Pressure Mean 91 Blood Pressure Position Pulse Oximetry 98 95 95 Oxygen Delivery Method Oxygen Flow Rate Sepsis Recent Fever Within 48 Hours Sepsis New/Unexplained Change in Mental Status Sepsis Action Taken by Nursing Oxygen Flow Rate - Titration Pulse Oximetry Post Tiitration 02/25/20 20:00 02/25/20 20:30 02/25/20 20:31 Temperature Temperature Source Pulse Rate 103 H 93 H 93 H Pulse Rate from SpO2 Sensor 93 H 93 H Respiratory Rate 29 H Respiratory Effort / Characteristics Respiratory Depth Respiratory Pattern Blood Pressure 131/65 Blood Pressure Mean 94 Blood Pressure Position Pulse Oximetry 96 97 Oxygen Delivery Method Oxygen Flow Rate Sepsis Recent Fever Within 48 Hours Sepsis New/Unexplained Change in Mental Status Sepsis Action Taken by Nursing Oxygen Flow Rate - Titration Pulse Oximetry Post Tiitration 02/25/20 21:00 02/25/20 21:01 Temperature Temperature Source Pulse Rate 97 H 98 H Pulse Rate from SpO2 Sensor 96 H 99 H Respiratory Rate 29 H 16 Respiratory Effort / Characteristics Respiratory Depth Respiratory Pattern Blood Pressure 145/90 H Blood Pressure Mean 103 Blood Pressure Position Pulse Oximetry 95 95 Oxygen Delivery Method Oxygen Flow Rate Sepsis Recent Fever Within 48 Hours Sepsis New/Unexplained Change in Mental Status Sepsis Action Taken by Nursing Oxygen Flow Rate - Titration Pulse Oximetry Post Tiitration Laboratory Data Result diagrams: 02/25/20 18:50 02/25/20 18:50 Lab Results 02/25/20 02/25/20 02/25/20 Range/Units 18:50 18:50 18:50 WBC 12.31 H (4.8-10.8) K/uL RBC 3.92 L (4.7-6.1) M/uL Hgb 12.1 L (14.0-18.0) g/dL Hct 38.4 L (42-52) % MCV 98.0 (80-100) fL MCH 30.9 (25-34) pg MCHC 31.5 L (32-36) g/dL RDW Std Deviation 50.9 H (36.4-46.3) fL RDW Coeff of Lizet 14.3 (11.5-14.5) % Plt Count 121 L (130-400) K/uL MPV 10.6 H (7.4-10.4) fL Immature Gran % (Auto) 0.2 % Neut % (Auto) 90.8 % Lymph % (Auto) 4.3 % [place] % (Auto) 4.1 % Eos % (Auto) 0.4 % Baso % (Auto) 0.2 % Neut # (Auto) 11.17 H (1.4-6.5) K/uL Lymph # (Auto) 0.53 L (1.2-3.4) K/uL [place] # (Auto) 0.51 (0.11-0.59) K/uL Eos # (Auto) 0.05 (0-0.5) K/uL Baso # (Auto) 0.02 (0-0.2) K/uL Immature Gran # (Auto) 0.03 H (0.00-0.02) K/uL PT 14.6 H (9.0-12.0) Seconds INR 1.4 H (0.9-1.1) APTT 29.9 (21.0-31.0) Seconds PTT Ratio 1.1 VBG pH (7.36-7.41) VBG pCO2 (38-50) mmHg VBG pO2 mmHg VBG HCO3 mmol/L VBG O2 Saturation % VBG Base Excess mEq/L Barometric Pressure mm/Hg Sodium 135 L (136-145) mmol/L Potassium 3.6 (3.5-5.1) mmol/L Chloride 100 (98-107) mmol/L Carbon Dioxide 31 (21-32) mmol/L Anion Gap 5.0 (3-11) BUN 15 (7-18) mg/dl Creatinine 1.22 (0.6-1.4) mg/dl Est Cr Clr Drug Dosing Not Reportable Est GFR ( Amer) 68.2 Est GFR (Non-Af Amer) 58.9 BUN/Creatinine Ratio 12.6 (10-20) Glucose 209 H (70-99) mg/dl Lactate (0.4-2.0) mmol/L Calcium 8.3 L (8.5-10.1) mg/dl Magnesium 1.5 L (1.8-2.4) mg/dl Total Bilirubin 0.3 (0.2-1) mg/dl AST 57 H (15-37) U/L ALT 30 (12-78) U/L Alkaline Phosphatase 127 H (45-117) U/L Troponin I 0.017 (0-0.045) ng/ml NT-Pro-B Natriuret Pep 2315 H (0-900) pg/ml Total Protein 7.6 (6.4-8.2) gm/dl Albumin 3.0 L (3.4-5.0) gm/dl Globulin 4.6 H (2.5-4.0) gm/dl Albumin/Globulin Ratio 0.7 L (0.9-2) Lipase 41 L (73-393) U/L Procalcitonin (0-0.5) ng/ml Urine Color Urine Appearance (Clear) Urine pH (4.5-7.5) Ur Specific [place] (1.000-1.030) Urine Protein (Negative) Urine Glucose (UA) (Negative) Urine Ketones (Negative) Urine Blood (Negative) Urine Nitrite (Negative) Urine Bilirubin (Negative) Urine Urobilinogen (Negative) Ur Leukocyte Esterase (Negative) Urine WBC (Auto) (0-5) /hpf Urine RBC (Auto) (0-4) /hpf U Hyaline Cast (Auto) (0-5) /lpf U Epithel Cells (Auto) (0-5) /lpf Urine Bacteria (Auto) (Negative) COVID-19 Eval Order COVID-19 PCR (Negative) 02/25/20 02/25/20 02/25/20 Range/Units 18:50 18:50 18:55 WBC (4.8-10.8) K/uL RBC (4.7-6.1) M/uL Hgb (14.0-18.0) g/dL Hct (42-52) % MCV (80-100) fL MCH (25-34) pg MCHC (32-36) g/dL RDW Std Deviation (36.4-46.3) fL RDW Coeff of Lizet (11.5-14.5) % Plt Count (130-400) K/uL MPV (7.4-10.4) fL Immature Gran % (Auto) % Neut % (Auto) % Lymph % (Auto) % [place] % (Auto) % Eos % (Auto) % Baso % (Auto) % Neut # (Auto) (1.4-6.5) K/uL Lymph # (Auto) (1.2-3.4) K/uL [place] # (Auto) (0.11-0.59) K/uL Eos # (Auto) (0-0.5) K/uL Baso # (Auto) (0-0.2) K/uL Immature Gran # (Auto) (0.00-0.02) K/uL PT (9.0-12.0) Seconds INR (0.9-1.1) APTT (21.0-31.0) Seconds PTT Ratio VBG pH 7.36 (7.36-7.41) VBG pCO2 57 H (38-50) mmHg VBG pO2 45 mmHg VBG HCO3 31 mmol/L VBG O2 Saturation 75.2 % VBG Base Excess 4.4 mEq/L Barometric Pressure 729.8 mm/Hg Sodium (136-145) mmol/L Potassium (3.5-5.1) mmol/L Chloride (98-107) mmol/L Carbon Dioxide (21-32) mmol/L Anion Gap (3-11) BUN (7-18) mg/dl Creatinine (0.6-1.4) mg/dl Est Cr Clr Drug Dosing Est GFR ( Amer) Est GFR (Non-Af Amer) BUN/Creatinine Ratio (10-20) Glucose (70-99) mg/dl Lactate 2.6 H* (0.4-2.0) mmol/L Calcium (8.5-10.1) mg/dl Magnesium (1.8-2.4) mg/dl Total Bilirubin (0.2-1) mg/dl AST (15-37) U/L ALT (12-78) U/L Alkaline Phosphatase (45-117) U/L Troponin I (0-0.045) ng/ml NT-Pro-B Natriuret Pep (0-900) pg/ml Total Protein (6.4-8.2) gm/dl Albumin (3.4-5.0) gm/dl Globulin (2.5-4.0) gm/dl Albumin/Globulin Ratio (0.9-2) Lipase (73-393) U/L Procalcitonin 0.17 (0-0.5) ng/ml Urine Color Urine Appearance (Clear) Urine pH (4.5-7.5) Ur Specific [place] (1.000-1.030) Urine Protein (Negative) Urine Glucose (UA) (Negative) Urine Ketones (Negative) Urine Blood (Negative) Urine Nitrite (Negative) Urine Bilirubin (Negative) Urine Urobilinogen (Negative) Ur Leukocyte Esterase (Negative) Urine WBC (Auto) (0-5) /hpf Urine RBC (Auto) (0-4) /hpf U Hyaline Cast (Auto) (0-5) /lpf U Epithel Cells (Auto) (0-5) /lpf Urine Bacteria (Auto) (Negative) COVID-19 Eval Order COVID-19 PCR (Negative) 02/25/20 02/25/20 02/25/20 Range/Units 19:30 19:30 20:10 WBC (4.8-10.8) K/uL RBC (4.7-6.1) M/uL Hgb (14.0-18.0) g/dL Hct (42-52) % MCV (80-100) fL MCH (25-34) pg MCHC (32-36) g/dL RDW Std Deviation (36.4-46.3) fL RDW Coeff of Lizet (11.5-14.5) % Plt Count (130-400) K/uL MPV (7.4-10.4) fL Immature Gran % (Auto) % Neut % (Auto) % Lymph % (Auto) % [place] % (Auto) % Eos % (Auto) % Baso % (Auto) % Neut # (Auto) (1.4-6.5) K/uL Lymph # (Auto) (1.2-3.4) K/uL [place] # (Auto) (0.11-0.59) K/uL Eos # (Auto) (0-0.5) K/uL Baso # (Auto) (0-0.2) K/uL Immature Gran # (Auto) (0.00-0.02) K/uL PT (9.0-12.0) Seconds INR (0.9-1.1) APTT (21.0-31.0) Seconds PTT Ratio VBG pH (7.36-7.41) VBG pCO2 (38-50) mmHg VBG pO2 mmHg VBG HCO3 mmol/L VBG O2 Saturation % VBG Base Excess mEq/L Barometric Pressure mm/Hg Sodium (136-145) mmol/L Potassium (3.5-5.1) mmol/L Chloride (98-107) mmol/L Carbon Dioxide (21-32) mmol/L Anion Gap (3-11) BUN (7-18) mg/dl Creatinine (0.6-1.4) mg/dl Est Cr Clr Drug Dosing Est GFR ( Amer) Est GFR (Non-Af Amer) BUN/Creatinine Ratio (10-20) Glucose (70-99) mg/dl Lactate (0.4-2.0) mmol/L Calcium (8.5-10.1) mg/dl Magnesium (1.8-2.4) mg/dl Total Bilirubin (0.2-1) mg/dl AST (15-37) U/L ALT (12-78) U/L Alkaline Phosphatase (45-117) U/L Troponin I (0-0.045) ng/ml NT-Pro-B Natriuret Pep (0-900) pg/ml Total Protein (6.4-8.2) gm/dl Albumin (3.4-5.0) gm/dl Globulin (2.5-4.0) gm/dl Albumin/Globulin Ratio (0.9-2) Lipase (73-393) U/L Procalcitonin (0-0.5) ng/ml Urine Color Yellow Urine Appearance Clear (Clear) Urine pH 6.5 (4.5-7.5) Ur Specific [place] 1.019 (1.000-1.030) Urine Protein 2+ H (Negative) Urine Glucose (UA) 2+ H (Negative) Urine Ketones Negative (Negative) Urine Blood 2+ H (Negative) Urine Nitrite Negative (Negative) Urine Bilirubin Negative (Negative) Urine Urobilinogen Negative (Negative) Ur Leukocyte Esterase Negative (Negative) Urine WBC (Auto) 1-5 (0-5) /hpf Urine RBC (Auto) 10-30 H (0-4) /hpf U Hyaline Cast (Auto) 1-5 (0-5) /lpf U Epithel Cells (Auto) 20-30 H (0-5) /lpf Urine Bacteria (Auto) Negative (Negative) COVID-19 Eval Order Covid19 Done at [facility] COVID-19 PCR NEGATIVE (Negative) Administered Medications Discontinued Medications Furosemide (Lasix) 40 mg IV NOW STA Stop: 02/25/20 19:48 Last Admin: 02/25/20 20:11 Dose: 40 mg Documented by: [id number] Magnesium Sulfate/Dextrose (Magnesium Sulfate / D5w) 1 gm in 100 mls @ 600 mls/hr IV Q10M ANNA Stop: 02/25/20 19:13 Last Infusion: 02/25/20 22:15 Dose: 0 mls/hr Documented by: [id number] Infusion: 02/25/20 21:15 Dose: 600 mls/hr Documented by: [id number] Infusion: 02/25/20 20:11 Dose: 0 mls/hr Documented by: [id number] Admin: 02/25/20 20:11 Dose: 600 mls/hr Documented by: [id number] Infusion: 02/25/20 19:45 Dose: 0 mls/hr Documented by: [id number] Admin: 02/25/20 19:15 Dose: 600 mls/hr Documented by: [id number] Acetaminophen (Ofirmev) 1,000 mg in 100 mls @ 400 mls/hr IV NOW STA Stop: 02/25/20 19:08 Last Infusion: 02/25/20 19:45 Dose: 0 mls/hr Documented by: [id number] Admin: 02/25/20 19:14 Dose: 400 mls/hr Documented by: [id number] Imipenem/Cilastatin Sodium 500 (mg/ Dextrose) 110 mls @ 100 mls/hr IV NOW STA Stop: 02/25/20 20:18 Last Infusion: 02/25/20 21:18 Dose: 0 mls/hr Documented by: [id number] Admin: 02/25/20 20:11 Dose: 100 mls/hr Documented by: [id number] Vancomycin HCl 2,500 mg/ (Sodium Chloride) 550 mls @ 200 mls/hr IV NOW ONE Stop: 02/25/20 22:20 Last Admin: 02/25/20 21:15 Dose: 200 mls/hr Documented by: [id number] Magnesium Sulfate/Dextrose (Magnesium Sulfate / D5w) 1 gm in 100 mls @ 100 mls/hr IV NOW STA Stop: 02/25/20 20:50 Last Infusion: 02/25/20 23:05 Dose: 0 mls/hr Documented by: [id number] Infusion: 02/25/20 21:19 Dose: 0 mls/hr Documented by: [id number] Admin: 02/25/20 21:18 Dose: 100 mls/hr Documented by: [id number] Methylprednisolone (Solumedrol) 125 mg IV NOW STA Stop: 02/25/20 18:56 Last Admin: 02/25/20 19:14 Dose: 125 mg Documented by: [id number] Discharge Plan Visit Data *Final* Discharge Date/Time: 02/25/20 22:15 Chief Complaint: Shortness of Breath/Dyspnea ED Provider: Alton Ansari Discharge Problem: Respiratory failure, Pulmonary edema cardiac cause, Hypomagnesemia, Pneumonia, Sepsis Patient Disposition: Admitted As Inpatient Discharge Instructions Interventions: ED Discharge Assessment Last Done: 02/25/20 22:15 Discharge Problem: Respiratory failure Qualifiers: Chronicity: acute on chronic Respiratory failure complication: hypoxia Qualified Code(s): J96.21 - Acute and chronic respiratory failure with hypoxia Pneumonia Qualifiers: Pneumonia type: due to unspecified organism Laterality: bilateral Lung location: lower lobe of lung Qualified Code(s): J18.9 - Pneumonia, unspecified organism Sepsis Qualifiers: Sepsis type: sepsis due to unspecified organism Sepsis acute organ dysfunction status: with acute organ dysfunction Severe sepsis acute organ dysfunction type: acute respiratory failure Acute respiratory failure type: with hypoxia Severe sepsis shock status: without septic shock Qualified Code(s): A41.9 - Sepsis, unspecified organism
[2020-02-25] MEDS ORDERED: IMIPENEM/CILASTATIN CONSULT ACTIVE PRN ×2 (19:07→19:13)
[2020-02-25] MEDS ORDERED: IMIPENEM/CILASTATIN SODIUM 500 MG in DEXTROSE 5% 100 ML IV STA ×2 (19:07→19:13)
[2020-02-25 19:13] LABS: Base Excess VBG 4.4 mEq/L; Oxygen Saturation VBG 75.2 %; pH VBG 7.36 (7.36-7.41)
[2020-02-25 19:15] LABS: INR 1.4 (0.9-1.1); Partial Thromboplastin Ratio 1.1; Partial Thromboplastin Time 29.9 Seconds (21.0-31.0); Prothrombin Time 14.6 Seconds (9.0-12.0)
[2020-02-25] MEDS: MAGNESIUM SULFATE / D5W 1 GM/100 ML BAG IV SCH ×2 (19:15→20:11)
[2020-02-25 19:20] LABS: Alanine Aminotransferase 30 U/L (12-78); Aspartate Aminotransferase 57 U/L (15-37); BUN Creatinine Ratio 12.6 (10-20); Blood Urea Nitrogen 15 mg/dl (7-18); Calcium 8.3 mg/dl (8.5-10.1); Carbon Dioxide 31 mmol/L (21-32); Chloride 100 mmol/L (98-107); Est GFR (African American) 68.2; Est GFR (Non-African American) 58.9; Glucose 209 mg/dl (70-99); Lipase 41 U/L (73-393); Magnesium 1.5 mg/dl (1.8-2.4); Potassium 3.6 mmol/L (3.5-5.1); Sodium 135 mmol/L (136-145)
[2020-02-25 19:25] LABS: Albumin Globulin Ratio 0.7 (0.9-2); Alkaline Phosphatase 127 U/L (45-117); Bilirubin,Total 0.3 mg/dl (0.2-1); Globulin 4.6 gm/dl (2.5-4.0); NT Pro B Type Natriuretic Pept 2315 pg/ml (0-900); Total Protein 7.6 gm/dl (6.4-8.2); Troponin I 0.017 ng/ml (0-0.045)
[2020-02-25] MEDS ORDERED: VANCOMYCIN HCL 2,500 MG in SODIUM CHLORIDE 0.9% 500 ML IV ONE (19:36)
[2020-02-25] MEDS ORDERED: VANCOMYCIN CONSULT ACTIVE PRN (19:36)
[2020-02-25] MEDS ORDERED: FUROSEMIDE 40 MG/4 ML VIAL IV STA (19:47)
[2020-02-25] MEDS ORDERED: MAGNESIUM SULFATE / D5W 1 GM/100 ML BAG IV STA (19:51)
--- NOTE | 2020-02-25 19:55 | XRay Report ---
SINGLE VIEW CHEST CLINICAL HISTORY: Dyspnea. FINDINGS: An AP, portable, upright chest radiograph is compared to study dated 01/22/2020. The examinat ion is degraded by portable technique and patient rotation. A 2-lead cardiac pacemaker is unchanged i n position. The heart is enlarged. There is pulmonary vascular congestion with evidence of interstiti al edema. There are pleural effusions, right larger than left with associated bibasilar consolidation . No pneumothorax is seen. The skeletal structures are osteopenic. The bony thorax is grossly intact. IMPRESSION: 1. Cardiomegaly and cardiac pacemaker with evidence of congestive failure and interstitial edema. 2. Right larger than left pleural effusions with bibasilar consolidation. ACT 112: Negative or not required by law. Electronically signed by: John Mackay M.D. 02/25/2020 7:53 PM
[2020-02-25 20:31] LABS: Appearance Urine Clear (Clear); Bacteria Urine Automated Negative (Negative); Bilirubin Urine Negative (Negative); Blood Urine 2+ (Negative); Color Urine Yellow; Epithelial Cell Urine Auto 20-30 /lpf (0-5); Glucose Urine UA 2+ (Negative); Ketones Urine Negative (Negative); Leukocyte Esterase Urine Negative (Negative); Nitrite Urine Negative (Negative); Protein Urine 2+ (Negative); Specific Gravity Urine 1.019 (1.000-1.030); Urobilinogen Urine Negative (Negative); pH Urine 6.5 (4.5-7.5)
[2020-02-25] MEDS ORDERED: POLYETHYLENE (MIRALAX) 17 GM PACK PO PRN (22:47)
[2020-02-25] MEDS ORDERED: ACETAMINOPHEN 325 MG TAB PO PRN (22:47)
[2020-02-25] MEDS ORDERED: WARFARIN SOD 5 MG TAB PO ONE (22:47)
[2020-02-25] MEDS ORDERED: ONDANSETRON INJ 2 MG/ML 2 ML VIAL IV PRN (22:47)
[2020-02-25] MEDS ORDERED: NITROGLYCERIN SL 0.4 MG/TAB TAB SL PRN ×2 (22:47)
[2020-02-25] MEDS: DOXYCYCLINE HYCLATE 100 MG CAP PO SCH (23:54)
[2020-02-26] MEDS: Heparin IV Low Dose *NO* Bolus IV SCH ×4 (00:03→00:28)
--- NOTE | 2020-02-26 00:21 | History and Physical Report ---
DATE OF ADMISSION: 02/25/2020 CHIEF COMPLAINT: Shortness of breath. HISTORY OF PRESENT ILLNESS: This is a 74-year-old male with past medical history significant for chronic systolic congestive heart failure with EF of around 40% to 45%, paroxysmal atrial fibrillation, history of PE, on long-term Coumadin; hyperlipidemia, diabetes, insulin requiring, COPD, bronchiectasis, chronic kidney disease stage III, tachybrady syndrome, status post pacemaker, peripheral artery disease, history of stable renal masses, chronic hypoxemic respiratory failure, on home oxygen 2 liters, which he uses as needed, ambulatory dysfunction, uses a powered wheelchair, chronic leg edema. Recently he was in the hospital from 01/22/2020 to 01/28/2020 and discharged to [facility] for IV vancomycin and from there discharged home on 02/11/2020. He was seen in the hospital at that time for left heel wound and was status post I and D and cultures grew MRSA and he was treated with IV antibiotics for 2 weeks and he completed IV antibiotics and PICC line was taken out after antibiotics were completed. The patient saw wound clinic yesterday and he has an appointment with infectious disease on 03/04/2020. He also followed with the PCP. He lives with his . As per last admission also, he does not want DuoNebs because it makes things worse for him. Today he apparently became short of breath and also he became nauseous and vomited 2 times at home. Denies any blood in the vomitus. Denies any chest pain, no abdominal pain. Denies any fever at home, but in the ER he had a temp spike of 38.8. No sick contacts. Currently, he is saturating okay on 6 liters. Somewhat mild respiratory distress but able to give most of the history, is somewhat hard of hearing. Denies any headache, no blurred visions, no earache, no runny nose, no sore throat. He has chronic cough, no difficulty swallowing. No abdominal pain. Normal bowel and bladder movements. Denies any blood in the stools or black stools. No burning micturition. The left lower extremity is in a special ortho Cam boot. ALLERGIES: ALBUTEROL, IPRATROPIUM, ONION, LEVOFLOXACIN, ATORVASTATIN, METFORMIN. PAST MEDICAL HISTORY: As mentioned above. 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 MEDICATIONS: The patient is currently on guaifenesin 600 mg p.o. b.i.d., calcium carbonate 500 mg p.o. b.i.d. as needed, Coumadin 4 mg on Mondays, Wednesdays, and Fridays and 6 mg all other days as directed, Lasix 40 mg p.o. b.i.d., but currently the patient is taking 20 mg p.o. b.i.d., insulin 3 times a day before meals, Lantus 26 units under skin daily, Hycodan 5 mL p.r.n., oxygen 2 liters as directed, metoprolol XL 25 mg p.o. daily, ferrous sulfate 325 mg p.o. every other day, allopurinol 300 mg p.o. daily, Crestor 40 mg p.o. daily, primidone 500 mg p.o. at bedtime, aspirin 325 mg p.o. daily, Dulcolax suppository p.r.n., Singulair 10 mg p.o. daily, Colace 100 mg p.o. b.i.d. p.r.n., nitroglycerin 0.4 mg sublingual p.r.n., albuterol nebulization every 4 hours p.r.n. FAMILY HISTORY: Significant for maternal grandfather had cancer. SOCIAL HISTORY: . Former smoker, quit in 1971. Smoked an average of 6 packs a day for 10 years. Alcohol occasional. No drug use. REVIEW OF SYSTEMS: As per HPI. Rest of the review of systems negative. PHYSICAL EXAMINATION: GENERAL: The patient is obese, in mild respiratory distress. VITAL SIGNS: Temperature 38.8, pulse 98, respiratory rate 16, blood pressure 145/90, oxygen 95% on 6 liters. HEENT: No pallor, no icterus. Pupils equal, round, and reactive to light. NECK: No JVD, no neck masses, no carotid bruits. CARDIOVASCULAR: S1, S2 heard. Tachycardia. No murmurs appreciated. RESPIRATORY SYSTEM: Normal AP diameter. Currently no accessory muscle use. Mild expiratory wheezing heard. Mild bibasilar crackles. ABDOMEN: Soft, bowel sounds present, nontender. No distention. CENTRAL NERVOUS SYSTEM: Cranial nerves II-XII grossly intact. Nonfocal. EXTREMITIES: Left lower extremity is in ortho Cam boot and right lower extremity is in stockings. No obvious erythema seen. LABORATORY DATA: WBC 12.3, hemoglobin 12.1, hematocrit 38.4, platelets 121. PT 14.6, INR 1.4. Venous blood gas pH of 7.3, pCO2 of 57, pO2 of 45, bicarbonate 31. Sodium 135, potassium 3.6, chloride 100, bicarbonate 31, BUN 15, creatinine 1.2, serum glucose 209, lactate 2.6, calcium 8.3, magnesium 1.5, total bilirubin 0.3, AST 57, ALT 30, alkaline phosphatase 127. Troponin I of 0.017. BNP 2300. Procalcitonin 0.17. Urinalysis, +2 blood. COVID-19 PCR negative. IMAGING DATA: Chest x-ray, cardiomegaly and cardiac pacemaker with evidence of congestive heart failure and interstitial edema, right larger than left pleural effusion with bibasilar consolidation. ASSESSMENT AND PLAN: This is a 74-year-old male with history of chronic obstructive pulmonary disease, congestive heart failure, who presents with shortness of breath and found to be in acute congestive heart failure and chronic obstructive pulmonary disease exacerbation, possible pneumonia, and also pleural effusions. 1. Shortness of breath, [id number] hypoxic respiratory failure requiring 6 liters of oxygen. At home, he is on 2 liters as needed. Chest x-ray looked congested and also pleural effusions, possible bibasilar opacities ,possible pneumonia. Empirically started on IV antibiotics of vancomycin and imipenem and also p.o. doxycycline. We will follow the cultures. Received a dose of IV Lasix in the ER. At home, he is on Lasix 20 mg p.o. b.i.d. Will continue with IV Lasix 40 b.i.d. for now. We will get an echocardiogram, serial enzymes. Monitor in the tele floor. The patient is allergic to DuoNebs, nebs, does not want it. Continue with IV Solu-Medrol 40 t.i.d. and monitor in the tele floor. 2. Pneumonia. Antibiotics as above. 3. Bilateral pleural effusion, right greater than left. We will get chest ultrasound. We will also consult pulmonary. Getting Lasix. 4. Jjsqi-ha-ymiuuuv systolic congestive heart failure. Getting IV diuretics as above. Will follow echo. Consult cardiology in a.m. 5. Pneumonia with temperature spike, elevated white count. Antibiotics as above. COVID is negative. Lactic acid is 2.6, probably from hypoxia. We will follow the repeat lactic acid. 6. History of paroxysmal atrial fibrillation, history of tachybrady syndrome, status post pacemaker, on Toprol-XL. INR is subtherapeutic. We will bridge with IV heparin. 7. History of pulmonary embolism. INR is 1.4, bridge with heparin and will continue with Coumadin 5 mg daily for now. 8. History of lower extremity wound recently. History of diabetic ulcer of the left heel, MRSA infection, last admission treated with iv vanco.Seen by wound care yesterday. We will consult wound care while the patient is in the hospital. He has an appointment with ID on 03/04. 9. Chronic obstructive pulmonary disease, management as above. Does not tolerate albuterol, ipratropium nebulization. 10. Coronary artery disease, on aspirin, statin and metoprolol. 11. Insulin-dependent diabetes, . Continue his Lantus. Will place on insulin sliding scale. 12. Chronic kidney disease stage III. We will follow the labs. 13. History of microscopic hematuria, history of known kidney stones. Needs to follow with urology. 14. Deep venous thrombosis prophylaxis. We will place him on IV heparin until INR is therapeutic. 15. Disposition: Closely monitor in tele floor. Code status, patient does not want to be intubated, but okay with CPR if he is able to recover. PT and OT prior to discharge. Social service to help with discharge planning. KASSY
[2020-02-26] MEDS: HEPARIN SODIUM/DEXTROSE 25,000 UNITS/500 ML BAG IV SCH (00:49)
[2020-02-26] MEDS: INSULIN ASPART 100 UNITS/ML 3 ML PEN SC SCH ×5 (00:51→22:08)
[2020-02-26] MEDS: IMIPENEM/CILASTATIN SODIUM 400 MG in DEXTROSE 5% 100 ML IV SCH ×4 (02:25→21:56)
[2020-02-26] MEDS ORDERED: methylPREDNISolone 40 MG in SYRINGE 0 ML IV SCH (06:00)
--- NOTE | 2020-02-26 06:03 | Ultrasound Report ---
Study: Chest ultrasound HISTORY: Pleural effusion FINDINGS: No significant left effusion. Right effusion is noted at 600 cc. Interposed lung was identi fied. This was not marked for thoracentesis due to this finding. IMPRESSION: 1. No significant left effusion. 2. 600 cc right effusion not marked due to interposed lung. Electronically signed by: Wilder Shelton M.D. 02/26/2020 6:01 AM
[2020-02-26 07:48] LABS: Basophils # (auto) 0.01 K/uL (0-0.2); Basophils % (auto) 0.1 %; Hematocrit (blood only) 38.5 % (42-52); Hemoglobin 11.8 g/dL (14.0-18.0); Immature Granulocytes # (auto) 0.04 K/uL (0.00-0.02); Immature Granulocytes % (auto) 0.3 %; Lymphocytes # (auto) 0.55 K/uL (1.2-3.4); Lymphocytes % (auto) 4.1 %; Mean Corpuscular Hemoglobin 30.4 pg (25-34); Mean Corpuscular Hgb Conc 30.6 g/dL (32-36); Mean Corpuscular Volume 99.2 fL (80-100); Mean Platelet Volume 10.8 fL (7.4-10.4); Neutrophils # (auto) 12.52 K/uL (1.4-6.5); Neutrophils % (auto) 92.5 %; Platelet Count 119 K/uL (130-400); RDW Coefficient of Variation 14.5 % (11.5-14.5); RDW Standard Deviation 53.1 fL (36.4-46.3); Red Blood Count 3.88 M/uL (4.7-6.1); White Blood Count 13.52 K/uL (4.8-10.8)
[2020-02-26 08:09] LABS: INR 1.3 (0.9-1.1); Partial Thromboplastin Ratio 1.9
[2020-02-26 08:12] LABS: Partial Thromboplastin Time 52.1 Seconds (21.0-31.0)
[2020-02-26] MEDS: FUROSEMIDE 40 MG in SYRINGE 0 ML IV SCH ×2 (08:16→17:39)
[2020-02-26 08:19] LABS: BUN Creatinine Ratio 13.9 (10-20); Calcium 8.4 mg/dl (8.5-10.1); Creatinine Clr Calc Pharmacy 69.9 ml/min; Est GFR (African American) 66.3; Est GFR (Non-African American) 57.2; Magnesium 1.8 mg/dl (1.8-2.4); Potassium 4.1 mmol/L (3.5-5.1)
[2020-02-26] MEDS ORDERED: FUROSEMIDE 40 MG/4 ML VIAL IV SCH (09:00)
[2020-02-26] MEDS: DOXYCYCLINE HYCLATE 100 MG CAP PO SCH ×2 (09:15→22:05)
--- NOTE | 2020-02-26 09:37 | Cardiology Consultation ---
Date of Consultation February 26, 2020 Assessment & Plan (1) Acute on chronic systolic heart failure: Agree with IV furosemide 40 mg IV BID. INR 1.3 , agree with heparin bridge pending possible invasive procedures. Needs ongoing aggressive wound care to prevent seeding of pacemaker leads. Pacer pocket clean and intact, no erythema. History of Present Illness Attending Physician: Lui Martinez MD History of Present Illness Ron Canseco is a 74 year old male seen in cardiology consultation per the request of Dr Calderon for the evaluation of an acute congestive heart failure decompensation. The patient's primary apartment leasing specialist is Dr. Tk Suarez of our practice. The patient had recently been admitted with an MRSA diabetic left heel ulcer and had undergone surgical debridement of the left heel wound on 01/25/20 . Although imaging studies did not confirm the presence of osteomyelitis, the clinical suspicion was apparently high, and therefore he was discharged on 01/28/20 with plans to complete a 14-day course of IV vancomycin with PICC line in place. He was discharged from the [facility] on 02/11/20. He was readmitted via the ED last evening with complaints of worsening shortness of breath and nausea. A fever of 38.8 C noted in the ED. He notes an episode of vomiting at home, which has seen resolved. He describes chronic shortness of breath. Outpatient furosemide does has been 20 mg twice daily, unchanged compared to October, cardiology clinic note. EKG performed 02/25/20 and reviewed independently reveals sinus tachycardia at 10 5 bpm without acute depolarization changes. Troponin 0.017 ng/ml x 1 thus far. CXR with R > L pleural effusions with bibasilar consolidation per radiology report. Compared to 01/2020 the pleural effusions were present at that time, however, are more prominent now. Chest US revealed 600 ml on the right. Outpatient Problem List: 1.Coronary artery disease, status post inferior wall myocardial infarction with severe multivessel coronary artery disease, deemed nonamenable to intervention. 2.Ischemic cardiomyopathy, EF 45% to 49%. 3.Paroxysmal atrial fibrillation, atrial flutter with tachy/melissa syndrome for which patient underwent dual chamber permanent pacemaker. 4.History of DVT and pulmonary embolism, on chronic Coumadin therapy. 5.Hyperlipidemia. 6.History of pericardial effusion, status post window and drainage. 7.History of vasovagal/cough/orthostatic syncope. 8.COPD. 9.Peripheral arterial disease. 10.History of tobacco abuse and severe COPD 11.Chronic kidney disease. Allergies Allergy/AdvReac Type Severity Reaction Status Date / Time albuterol Allergy Severe CHOKING Verified 02/25/20 20:56 SENSATION ipratropium Allergy Severe CHOKING Verified 02/25/20 20:56 SENSATION onion Allergy Intermediate RASH Verified 02/25/20 20:56 levofloxacin Allergy Mild other Verified 02/25/20 20:56 atorvastatin AdvReac Intermediate Muscle Pain Verified 02/25/20 20:56 metformin AdvReac Intermediate Diarrhea Verified 02/25/20 20:56 Home Medications Home Medications Medication Instructions Recorded Confirmed Type Lantus Solostar U-100 Insulin 26 unit SUBCUT HS 04/11/18 02/25/20 History allopurinol [Zyloprim] 300 mg PO QPM 04/11/18 02/25/20 History insulin aspart U-100 [Novolog 1 sliding scale dose SUBCUT AC 04/11/18 02/25/20 History PenFill U-100 Insulin] montelukast [Singulair] 10 mg PO PM 04/11/18 02/25/20 History nitroglycerin 0.4 mg SUBLINGUAL UD PRN 04/11/18 02/25/20 History primidone [Mysoline] 500 mg PO HS 04/11/18 02/25/20 History rosuvastatin [Crestor] 40 mg PO HS 04/11/18 02/25/20 History warfarin 0 mg PO UD 01/10/19 02/25/20 History aspirin 325 mg PO HS 08/08/19 02/25/20 History metoprolol succinate 25 mg PO QPM 08/08/19 02/25/20 History furosemide 20 mg tablet 40 mg PO BID tab 11/27/19 02/25/20 History ferrous sulfate [iron] 325 mg PO Q OTHER DAY 01/09/20 02/25/20 History polyethylene glycol 3350 [Miralax] 17 g PO DAILY PRN #14 ea 01/28/20 02/25/20 Rx Patient History Medical History Bronchiectasis Chronic kidney disease stage 3 Chronic left ventricular systolic heart failure COPD (chronic obstructive pulmonary disease) Coronary artery disease "S/P inferior TN, severe multivessel disease not amenable to intervention" per 2012 cath Diabetes mellitus, type 2 IDDM GERD (gastroesophageal reflux disease) Gout Hearing deficit BL KOO History of CVA (cerebrovascular accident) "YEARS AGO" - reports he has had a tremor ever since stroke. denies additional residual effects History of depression History of DVT (deep vein thrombosis) "YEARS AGO" ETIOLOGY UNK - ON WARFARIN History of pancreatitis History of pulmonary embolism on jail coumadin History of tachycardia-bradycardia syndrome HLD (hyperlipidemia) Ischemic cardiomyopathy EF 45-49% Myocardial Infarction "YEARS AGO" Nephrolithiasis On home oxygen therapy 2 LPM DAILY PRN (secondary to chronic respiratory failure) Osteoarthritis PAD (peripheral artery disease) PAF (paroxysmal atrial fibrillation) DX "years ago" - ON COUMADIN - FOLLOWS W/ DR. ROYCE Rasmussen historian Seizure QUESTIONABLE- EEG 1 WEEK AGO FOR QUESTIONABLE SEIZURE (reported convulsions, loss of consciousness 1 week ago while watching TV) - [facility] - EEG unremarkable Tremor Surgical History H/O toe surgery "amputation left 3rd and 4th toe 03/2012" History of bronchoscopy History of cardiac cath MULTIPLE - NO STENTS [place] (could not recall dates - most recent in system is from 2011 [place]) History of cholecystectomy History of incision of pericardium pericardial window secondary to pericardial effusion History of pacemaker PLACED 10/2017 FOR TACHY-MELISSA SYNDROME - [employer] - LAST CHECKED 05/2019 History of tonsillectomy S/P cystoscopy with ureteral stent placement 07/25/2019 [facility] Status post creation of pericardial window Family History Mother Alzheimer disease Social History Smoking Status: Former smoker Tobacco Type: Cigarettes Cigarettes Per Day: 4-6 packs. 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 x 17 years Other Information That Helps Us Care for You: No Feels Safe at Home: Yes Safety Concerns: Feels Safe At This Time Review of Systems Review of Systems: All systems reviewed & are unremarkable except as noted in HPI & below Physical Exam Physical Exam: Temp Pulse Resp BP Pulse Ox 36.6 C 85 20 139/58 L 98 02/26/20 07:48 02/26/20 08:56 02/26/20 07:48 02/26/20 07:48 02/26/20 07:48 Constitutional: no acute distress Respiratory: + dullness to percussion Auscultation: + breath sounds absent and + diminished lung sounds (bilatrally at the bases ) Cardiovascular: Rate/Rhythm: regular rhythm Heart Sounds: no murmur Vessels: + JVD Extremities: + edema (1-2+ LE and pedal edema) Gastrointestinal (Abdomen): normal bowel sounds, soft, nontender, no hepatosplenomegaly Neurologic: PERRL, EOMI, accommodation nl, no face palsy, no dysarthria Results & Data ([facility]) Vital Signs (Past 12 Hours) Vital Signs Temp Pulse Pulse Resp BP Pulse Ox 02/26/20 08:56 85 02/26/20 07:48 36.6 C 85 20 139/58 L 98 02/26/20 04:51 36.9 C 85 21 131/91 99 02/26/20 00:42 83 02/25/20 22:30 37.3 C 84 24 150/71 H 97 Laboratory Results Cardiac Enzymes 02/25/20 Range/Units 18:50 AST 57 H (15-37) U/L Troponin I 0.017 (0-0.045) ng/ml Coagulation 02/25/20 02/26/20 Range/Units 18:50 07:39 PT 14.6 H 14.0 H (9.0-12.0) Seconds APTT 29.9 52.1 H* (21.0-31.0) Seconds CBC 02/25/20 02/26/20 Range/Units 18:50 07:28 WBC 12.31 H 13.52 H (4.8-10.8) K/uL RBC 3.92 L 3.88 L (4.7-6.1) M/uL Hgb 12.1 L 11.8 L (14.0-18.0) g/dL Hct 38.4 L 38.5 L (42-52) % Plt Count 121 L 119 L (130-400) K/uL Neut # (Auto) 11.17 H 12.52 H (1.4-6.5) K/uL Lymph # (Auto) 0.53 L 0.55 L (1.2-3.4) K/uL Ida # (Auto) 0.51 0.40 (0.11-0.59) K/uL Eos # (Auto) 0.05 0.00 (0-0.5) K/uL Baso # (Auto) 0.02 0.01 (0-0.2) K/uL Comprehensive Metabolic Panel 02/25/20 02/26/20 Range/Units 18:50 07:28 Sodium 135 L 133 L (136-145) mmol/L Potassium 3.6 4.1 (3.5-5.1) mmol/L Chloride 100 97 L (98-107) mmol/L Carbon Dioxide 31 31 (21-32) mmol/L BUN 15 17 (7-18) mg/dl Creatinine 1.22 1.25 (0.6-1.4) mg/dl Glucose 209 H 265 H (70-99) mg/dl Calcium 8.3 L 8.4 L (8.5-10.1) mg/dl AST 57 H (15-37) U/L ALT 30 (12-78) U/L Alkaline Phosphatase 127 H (45-117) U/L Total Protein 7.6 (6.4-8.2) gm/dl Albumin 3.0 L (3.4-5.0) gm/dl Intake and Output 02/25/20 02/26/20 02/26/20 22:59 06:59 14:59 Intake Total 411.667 / 1388.000 976.333 / 1388.000 108 / 108 Output Total 500 / 800 300 / 800 Balance -88.333 / 588.000 676.333 / 588.000 108 / 108 Intake: IV 411.667 / 1168.000 756.333 / 1168.000 108 / 108 OFIRMEV 1,000 mg In 100 ml @ 100 / 100 400 mls/hr IV NOW STA Rx#: [id number] Primaxin 400 mg In D5 100 ml @ 110 / 218 108 / 218 108 / 108 108 mls/hr IV Q6H ANNA Rx#: [id number] MAGNESIUM SULFATE / D5W 1 gm In 201.667 / 300.000 98.333 / 300.000 100 ml @ 100 mls/hr IV NOW STA Rx#:[id number] Vancomycin HCl 2,500 mg In Nss 550 / 550 500 ml @ 200 mls/hr IV NOW ONE Rx#:[id number] Oral 220 / 220 Output: Urine 500 / 800 300 / 800 Other: Weight 112.128 kg 111.4 kg
[2020-02-26 09:39] LABS: Estimated Average Glucose 123 mg/dl; Hemoglobin A1C 5.9 % (4.5-5.6)
[2020-02-26] MEDS: VANCOMYCIN HCL 1,500 MG in SODIUM CHLORIDE 0.9% 500 ML IV SCH ×2 (10:20→22:11)
--- NOTE | 2020-02-26 12:02 | Pulmonary Consultation ---
Date of Consultation February 26, 2020 Assessment & Plan (1) Pleural effusion: Chest x-ray 02/25/2020 personally reviewed: Bilateral costophrenic and cardiophrenic angles are blunted, increased vascular congestion, retrocardiac opacity cannot be ruled out. Cardiac pacemaker in place --Pleural effusion with multilobar pneumonia Etiology is likely from underlying diastolic and systolic CHF But patient did spike fever of 38.2, need to make sure this is not parapneumonic effusion Patient is on warfarin at home but INR is subtherapeutic, patient is on heparin drip as a bridge Continue with diuresis as tolerated Procalcitonin 0.17, Covid-19 PCR done 02/25/2020 -ve. Continue with antibiotics. --COPD Not on any inhalers at home Would like the patient to be discharged on Incruse On his allergy states that he gets choking sensation when he uses albuterol ipratropium. Would like to make sure that he does not have any issues using Incruse at home before prescribing that. -- A fib with systolic and diastolic CHF cardiology Plan: INR today is 1.3. Heparin has been stopped since 8:22 AM. Thoracentesis after heparin drip has been stopped for at least 4 hours to see if the patient has any parapneumonic effusion. Risk and benefit of the procedure explained to the patient. He agrees to go ahead with the procedure. DC Solu-Medrol. I do not think patient is in COPD exacerbation. Please note the above document was generated using voice recognition software. It may contain grammatical, syntax or spelling errors. (2) Chronic respiratory failure with hypoxia and hypercapnia: (3) COPD (chronic obstructive pulmonary disease): COPD type: unspecified COPD Qualified Code(s): J44.9 - Chronic obstructive pulmonary disease, unspecified (4) PAF (paroxysmal atrial fibrillation): History of Present Illness Attending Physician: Lui Martinez MD History of Present Illness 74-year-old female with past medical history of EF 40-45%, paroxysmal A. fib, history of PE on warfarin, COPD, chronic hypoxic respiratory failure on 2 L nasal cannula on as-needed basis at home, Chronic kidney disease, tachybradycardia syndrome status post PPM was admitted to hospital with complaints of exertional shortness of breath progressively getting worse. Along with fevers and chills. Patient was found to have temperature of 38.8 C while in the hospital. Patient also has history of MRSA infection in the toe for which he got antibiotics back in January 2020 Patient is only recent travel history. Denies any nausea or vomiting. Occasion al cough with clear phlegm. No change in intensity or frequency of cough. Patient said that he is compliant with his medications. No dysuria, no diarrhea. Denies any sore throat. Social history: Patient smoked only for 6-year but when he used to smoke he used to smoke up to 6 packs/day which comes out approximately 30-36 pack years. He quit in 1971, social alcohol, denies any illicit drug use. No exposure to any chemicals or fumes. Allergies Allergy/AdvReac Type Severity Reaction Status Date / Time albuterol Allergy Severe CHOKING Verified 02/25/20 20:56 SENSATION ipratropium Allergy Severe CHOKING Verified 02/25/20 20:56 SENSATION onion Allergy Intermediate RASH Verified 02/25/20 20:56 levofloxacin Allergy Mild other Verified 02/25/20 20:56 atorvastatin AdvReac Intermediate Muscle Pain Verified 02/25/20 20:56 metformin AdvReac Intermediate Diarrhea Verified 02/25/20 20:56 Home Medications Home Medications Medication Instructions Recorded Confirmed Type Lantus Solostar U-100 Insulin 26 unit SUBCUT HS 04/11/18 02/25/20 History allopurinol [Zyloprim] 300 mg PO QPM 04/11/18 02/25/20 History insulin aspart U-100 [Novolog 1 sliding scale dose SUBCUT AC 04/11/18 02/25/20 History PenFill U-100 Insulin] montelukast [Singulair] 10 mg PO PM 04/11/18 02/25/20 History nitroglycerin 0.4 mg SUBLINGUAL UD PRN 04/11/18 02/25/20 History primidone [Mysoline] 500 mg PO HS 04/11/18 02/25/20 History rosuvastatin [Crestor] 40 mg PO HS 04/11/18 02/25/20 History warfarin 0 mg PO UD 01/10/19 02/25/20 History aspirin 325 mg PO HS 08/08/19 02/25/20 History metoprolol succinate 25 mg PO QPM 08/08/19 02/25/20 History furosemide 20 mg tablet 40 mg PO BID tab 11/27/19 02/25/20 History ferrous sulfate [iron] 325 mg PO Q OTHER DAY 01/09/20 02/25/20 History polyethylene glycol 3350 [Miralax] 17 g PO DAILY PRN #14 ea 01/28/20 02/25/20 Rx Patient History Medical History Bronchiectasis Chronic kidney disease stage 3 Chronic left ventricular systolic heart failure COPD (chronic obstructive pulmonary disease) Coronary artery disease "S/P inferior NV, severe multivessel disease not amenable to intervention" per 2012 cath Diabetes mellitus, type 2 IDDM GERD (gastroesophageal reflux disease) Gout Hearing deficit BL KOO History of CVA (cerebrovascular accident) "YEARS AGO" - reports he has had a tremor ever since stroke. 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 ROYCE Rasmussen historian Seizure QUESTIONABLE- EEG 1 WEEK AGO FOR QUESTIONABLE SEIZURE (reported convulsions, loss of consciousness 1 week ago while watching TV) - [place] [facility] - EEG unremarkable Tremor Surgical History H/O toe surgery "amputation left 3rd and 4th toe 03/2012" History of bronchoscopy History of cardiac cath MULTIPLE - NO STENTS [place] (could not recall dates - most recent in system is from 2011 [place]) History of cholecystectomy History of incision of pericardium pericardial window secondary to pericardial effusion History of pacemaker PLACED 10/2017 FOR [employer] - [employer] - LAST CHECKED 05/2019 History of tonsillectomy S/P cystoscopy with ureteral stent placement 07/25/2019 [facility] Status post creation of pericardial window Family History Mother Alzheimer disease Social History Smoking Status: Former smoker Tobacco Type: Cigarettes Cigarettes Per Day: 4-6 packs. 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 employed by [employer] with nickel and zinc oxide exposure x 17 years Other Information That Helps Us Care for You: No Feels Safe at Home: Yes Safety Concerns: Feels Safe At This Time Review of Systems Review of Systems: All systems reviewed & are unremarkable except as noted in HPI & below Physical Exam Physical Exam: Constitutional: No acute distress HEENT: EOMI, PERRLA Respiratory system: Decreased air entry bilaterally, positive bilateral lower lobe crackles, no wheeze, no rhonchi CVS: S1-S2 positive, no murmurs or gallops, positive left-sided pacemaker Abdomen: Soft, nontender, nondistended, positive bowel sounds x4, obese Extremities: +2 pulses bilaterally radialis/ dorsalis pedis, no cyanosis, +3 pitting edema bilateral lower extremity Neuro: Awake alert oriented x3 Psych: Normal mood and affect Skin: no rashes, warm and dry Lymphatic: no cervical or axillary lymphadenopathy Results & Data Results & Data ([facility]) Vital Signs (Past 12 Hours) Vital Signs Temp Pulse Pulse Resp BP Pulse Ox 02/26/20 08:56 85 02/26/20 07:48 36.6 C 85 20 139/58 L 98 02/26/20 04:51 36.9 C 85 21 131/91 99 02/26/20 00:42 83 02/26/20 07:28 02/26/20 07:28 PG Care Time/CCT Total # of Minutes Spent Total Time Spent with Patient: Total time spent is greater than 50% in coordination of care (as documented) at patient's floor/unit and/or counseling patient: Coding Level of Care Code 39094 Initial Inpt Care Lvl 3 Diagnoses Pleural effusion J90 Chronic respiratory failure with hypoxia and hypercapnia J96.11; J96.12 COPD (chronic obstructive pulmonary disease) J44.9 COPD type: unspecified COPD PAF (paroxysmal atrial fibrillation) I48.0
[2020-02-26] MEDS: FERROUS SULFATE 325 MG TAB PO SCH (13:30)
--- NOTE | 2020-02-26 14:10 | Pharmacy Report ---
Pharmacy Abx Initial Consult - Date of Service February 26, 2020 - Pharmacy Dosing Scope Date of Consult: 02/24 Consultation requested by: Dr. Diaz Pharmacy is consulted to initiate primaxin/vancomycin IV dosing therapy, order appropriate labs and adjust drug dose/frequency. - Subjective The patient is a 74 year old M admitted on 02/25/20 21:17. - Objective Height: 6 ft 1 in Weight: 111.4 kg Vital Signs (Past 12hrs): Vital Signs Temp Pulse Pulse Resp BP Pulse Ox 02/26/20 12:00 36.9 C 75 18 125/57 L 98 02/26/20 08:56 85 02/26/20 07:48 36.6 C 85 20 139/58 L 98 02/26/20 04:51 36.9 C 85 21 131/91 99 Lab Results (24hrs): Laboratory Tests (24 Hours) 02/26/20 02/26/20 02/26/20 07:28 07:28 07:28 WBC Neut # (Auto) ESR 68 H Creatinine 1.25 Est Cr Clr Drug Dosing 69.9 C-Reactive Protein 7.11 H Procalcitonin 02/26/20 02/25/20 02/25/20 07:28 18:50 18:50 WBC 13.52 H Neut # (Auto) 12.52 H ESR Creatinine 1.22 Est Cr Clr Drug Dosing Not Reportable C-Reactive Protein Procalcitonin 0.17 02/25/20 18:50 WBC 12.31 H Neut # (Auto) 11.17 H ESR Creatinine Est Cr Clr Drug Dosing C-Reactive Protein Procalcitonin Micro Results: 02/25/20 20:30 Aerobic Blood Culture - Pending Blood Anaerobic Blood Culture - Pending 02/25/20 20:30 Aerobic Blood Culture - Pending Blood Anaerobic Blood Culture - Pending - Risk Factors for Resistance * History of infection with a multidrug-resistant organism: MRSA (vanc JOANNA 2) - Assessment & Plan Assessment 74 year old M with PMH including CHF, paroxysmal A. fib, hx of PE, HLD, diabetes, COPD, CKDIII, on home O2. Previously admitted in early-mid January with IV vancomycin use for a heel wound with MRSA, admitted with shortness of breath and tmax of 38.8. Started on Vancomycin/Primaxin/Doxycycline. Plan Vancomycin IV * Estimated PK Parameters: Vd 0.7 L/kg, Andrew 0.062 hr-1, t1/2 11 hr * Loading dose: 2500 mg (21mg/kg) received in ED * Maintenance dose: 1500 mg q12H * Goal Trough 15-20 mcg/mL- target higher end of goal d/t previous history of MRSA with VANC JOANNA =2 * Will order trough for 02/26 @ 0930, this will be before steady state but would like to evaluate d/t risk of accumulation Primaxin adjusted to 400 mg IV q6H for CrCl <90 ml/min. Pharmacy will continue to follow and will adjust dose/frequency as necessary. Thank you.
--- NOTE | 2020-02-26 14:56 | Hospitalist Progress Note ---
Date of Service February 26, 2020 Assessment & Plan (1) Acute on chronic systolic heart failure: Present on admission with worsening SOB CXR showed evidence of congestive failure and interstitial edema. Right larger than left pleural effusions with bibasilar consolidation. Received Lasix 40mg IV in the ER Continue Lasix IV BID ProBNP elevated 2315 on admission Cardiology on board Recommended to continue IV diuretic Continue monitor BMP Bilateral pleural effusion CXR showed right larger than left pleural effusions with bibasilar consolidation. Continue Lasix IV 40mg BID Pulmonology on board and plan for thoracentesis Pneumonia Possible healthcare associated PNA Elevated WBC, Febrile and elevated lactic acid Procalcitonin negative and COVID negative CXR showed bibasilar consolidation Received Vanco and primaxin and doxycycline Will d/c IV steroid Blood cx pending Lactate repeat pending Continue monitor closely History of paroxysmal atrial fibrillation S/P pacemaker Rate control with Toprol Continue Heparin IV drip History of pulmonary embolism. INR is 1.3 On coumadin bridge with heparin drip History of lower extremity wound Diabetic L heel ulcer MRSA infection in last admission Continue IV abx with Vanco Follow up with the wound care nurse Continue wound care every other day Follow up with ID on 03/04. Chronic obstructive pulmonary disease Does not seems to have COPD exacerbation IV steroid discontinued Pulmonology plan to try on Incruse Pt cannot tolerate neb treatment Coronary artery disease Continue on aspirin, statin and metoprolol. Insulin-dependent diabetes Most recent Hba1c 5.9 BS elevated due to IV steroid Continue lantus and novolog sliding scale Chronic kidney disease stage III. Creatinine stable Will monitor BMP while on IV lasix Deep venous thrombosis prophylaxis. Continue heparin drip CODE STATUS Conditional (No Intubation/Ventilation) Disposition Continue monitor in tele Admission and Anticipated Discharge Date Admission Date: February 25, 2020 Subjective Pt was seen and examined Sitting in chair with no distress Pt said that his breathing slightly improves Denies any chest pain, palpitation, dizziness and fever Physical Exam Physical Exam: General- No acute distress Head- atraumatic Eyes- PERRL, EOMI, ENT- oropharynx clear Neck- supple, no JVD Lungs- +diminished breath sound Heart- regular rhythm; no murmur Abdomen- normal bowel sounds, soft, nontender Extremities- no calf tenderness, right LE skin ulcer due to venous ulcer, +edema Neuro- alert, oriented x 3; PERRL, EOMI; no facial palsy; no dysarthria Skin- warm & dry Results & Data Results & Data ([facility]) Vital Signs (Past 12 Hours) Vital Signs Temp Pulse Pulse Resp BP Pulse Ox 02/26/20 12:00 36.9 C 75 18 125/57 L 98 02/26/20 08:56 85 02/26/20 07:48 36.6 C 85 20 139/58 L 98 02/26/20 04:51 36.9 C 85 21 131/91 99
--- NOTE | 2020-02-26 17:54 | Procedure Note ---
Procedure Note Date of Service February 26, 2020 Procedure: Diagnostic therapeutic ultrasound-guided catheter thoracentesis Ad Terminal Makeup Operator: Dr. Bill Diaz Indication: Pleural effusion Consent: Signed by patient and verified with timeout prior to procedure Anesthesia: 1% lidocaine without epinephrine local. Procedure: Consent was verified and timeout performed. Appropriate imaging studies were reviewed prior to the procedure. Patient was placed in a seated position and limited thoracic ultrasound was performed of the right chest. See separate imaging. Appropriate site above the diaphragm for thoracentesis was selected. The skin was prepped and draped in normal sterile fashion. Lidocaine was used for local analgesia. Fluid was aspirated via the finder needle. A small skin ross was made with the scalpel and the catheter over the needle apparatus was advanced over the rib into the pleural space. Using the syringe one-way valve system, a total of 1800 mL's of serous fluid was removed. The catheter was removed and observed to be intact. A sterile dressing was applied. Post procedure chest x-ray was ordered. Postprocedure good lung sliding was appreciated on the ultrasound Fluid was sent for labs, culture and cytology. The patient tolerated the procedure without obvious complication Blood loss: Less than 2 cc Coding CPT Codes Pulmonary/Thoracic - Pulmonary and Thoracic: 17788 Thoracentesis w imaging ([id number]) [facility] Procedure Codes (Charges) Pulmonary/Thoracic Procedure 1: Pulmonary and Thoracic: 12950 Thoracentesis w imaging
--- NOTE | 2020-02-26 18:11 | XRay Report ---
XR chest 1V portable HISTORY: 74 years-old Male Post thoracentesis COMPARISON: Chest radiograph 02/25/2020 TECHNIQUE: Portable AP view of the chest FINDINGS: Cardiac silhouette is enlarged, unchanged. Left subclavian pacer. No pneumothorax. The patient is sli ghtly rotated. Small right and trace left pleural effusions. The right pleural effusion has decreased in size status post thoracentesis. There is improved aeration of the right lung base. Persistent rig ht basilar consolidation. Moderately improved pulmonary edema. No postprocedural pneumothorax. Degene rative changes of the shoulders and spine. IMPRESSION: 1. Cardiomegaly with moderately improved pulmonary edema. 2. Mildly decreased size of the right pleural effusion status post thoracentesis. No postprocedural p neumothorax identified. 3. Mildly improved aeration of the right lung base. ACT 112: Negative or not required by law. The above report was generated using voice recognition software. It may contain grammatical, syntax o r spelling errors. Electronically signed by: Hudson Obregon M.D. 02/26/2020 6:10 PM
[2020-02-26] MEDS: WARFARIN SOD 5 MG TAB PO SCH (18:37)
[2020-02-26 18:46] LABS: Albumin Level 2.6 gm/dl (3.4-5.0); Bilirubin,Total 0.3 mg/dl (0.2-1); Total Protein 7.3 gm/dl (6.4-8.2)
[2020-02-26 19:41] LABS: Glucose Pleural Fluid 264 mg/dl
[2020-02-26 19:44] LABS: Appearance Pleural Fluid HAZY; Color Pleural Fluid YELLOW; RBC Pleural Fluid (A) < 3000 /uL; Source Pleural Fluid RIGHT LUNG; WBC Pleural Fluid (A) 336 /uL
[2020-02-26 19:52] LABS: Amylase Pleural Fluid 42 U/L; LDH Pleural Fluid 77 U/L; Total Protein Pleural Fluid 3.2 g/dl
[2020-02-26 19:57] LABS: Eosinophils, Fluid 0 %; Lymphocytes, Fluid 70 %; Mono,Macrophage,Mesothelial 26 %; Neutrophils, Fluid 4 %
[2020-02-26] MEDS: ASPIRIN 325 MG ECTAB PO SCH (22:06)
[2020-02-26] MEDS: ROSUVASTATIN CALCIUM 20 MG TAB PO SCH (22:06)
[2020-02-26] MEDS: allopurinoL 300 MG TAB PO SCH (22:06)
[2020-02-26] MEDS: MONTELUKAST SODIUM 10 MG TABLET PO SCH (22:06)
[2020-02-26] MEDS: INSULIN GLARGINE SOLOSTAR 100 UNITS/ML 3 ML PEN SQ SCH (22:07)
[2020-02-26] MEDS: PRIMIDONE 250 MG TAB PO SCH (22:07)
[2020-02-26] MEDS: METOPROLOL SUCC 25MG EXT REL TAB PO SCH (22:07)
[2020-02-27 00:46] LABS: Partial Thromboplastin Ratio 1.9
[2020-02-27 00:57] LABS: Partial Thromboplastin Time 53.5 Seconds (21.0-31.0)
[2020-02-27] MEDS: HEPARIN SODIUM/DEXTROSE 25,000 UNITS/500 ML BAG IV SCH (02:11)
[2020-02-27] MEDS: IMIPENEM/CILASTATIN SODIUM 400 MG in DEXTROSE 5% 100 ML IV SCH ×4 (02:11→21:07)
--- NOTE | 2020-02-27 06:07 | Electrocardiogram Report ---
Test Reason : Blood Pressure : / mmHG Vent. Rate : 105 BPM Atrial Rate : 105 BPM P-R Int : 200 ms QRS Dur : 094 ms QT Int : 304 ms P-R-T Axes : 000 086 018 degrees QTc Int : 401 ms Sinus tachycardia Possible Anterior infarct (cited on or before 25-FEB-2020) Abnormal ECG When compared with ECG of 22-JAN-2020 13:14, No significant change was found Confirmed by Serjio Huitron ([id number]) on 02/27/2020 6:06:59 AM Referred By: REFERRED SELF Confirmed By:Serjio Huitron
[2020-02-27 06:49] LABS: Hematocrit (blood only) 31.9 % (42-52); Mean Corpuscular Hemoglobin 30.7 pg (25-34); Mean Corpuscular Hgb Conc 31.3 g/dL (32-36); Mean Corpuscular Volume 97.9 fL (80-100); Mean Platelet Volume 10.2 fL (7.4-10.4); Platelet Count 115 K/uL (130-400); RDW Coefficient of Variation 14.4 % (11.5-14.5); RDW Standard Deviation 51.5 fL (36.4-46.3); Red Blood Count 3.26 M/uL (4.7-6.1); White Blood Count 9.22 K/uL (4.8-10.8)
[2020-02-27 06:58] LABS: INR 1.5 (0.9-1.1); Prothrombin Time 15.4 Seconds (9.0-12.0)
[2020-02-27 07:25] LABS: BUN Creatinine Ratio 21.7 (10-20); Calcium 7.7 mg/dl (8.5-10.1); Creatinine Clr Calc Pharmacy 94.1 ml/min; Est GFR (Non-African American) 82.8; Potassium 3.3 mmol/L (3.5-5.1)
[2020-02-27] MEDS ORDERED: POTASSIUM CHLORIDE 20 MEQ TABCR PO STA (07:46)
[2020-02-27] MEDS: DOXYCYCLINE HYCLATE 100 MG CAP PO SCH ×2 (08:07→21:10)
[2020-02-27] MEDS: INSULIN ASPART 100 UNITS/ML 3 ML PEN SC SCH ×4 (08:07→21:16)
[2020-02-27] MEDS: FUROSEMIDE 40 MG in SYRINGE 0 ML IV SCH ×2 (08:08→17:05)
[2020-02-27] MEDS ORDERED: VANCOMYCIN TROUGH ONE (09:30)
--- NOTE | 2020-02-27 10:07 | Pulmonology Progress Note ---
Date of Service February 27, 2020 Assessment & Plan (1) Pleural effusion: Chest x-ray 02/25/2020 personally reviewed: Bilateral costophrenic and cardiophrenic angles are blunted, increased vascular congestion, retrocardiac opacity cannot be ruled out. Cardiac pacemaker in place --Pleural effusion with multilobar pneumonia Etiology is likely from underlying diastolic and systolic CHF But patient did spike fever of 38.2, Status post thoracentesis 02/26/2020 removal of 1.8 L serous fluid. LDH: 77, protein: 3.2, differential showed mostly lymphocytes. Transudative as per lights criteria Continue with diuresis as tolerated Procalcitonin 0.17, Covid-19 PCR done 02/25/2020 -ve. Continue with antibiotics for total of 7 days --COPD Not on any inhalers at home Would like the patient to be discharged on Incruse On his allergy states that he gets choking sensation when he uses albuterol ipratropium. Would like to make sure that he does not have any issues using Incruse at home before prescribing that. -- A fib with systolic and diastolic CHF cardiology Plan: Continue with diuresis as tolerated. Patient does not have parapneumonic effusion. Continue with antibiotics for total of 7 days. Pulmonary status is stable. Will sign off, please recall if needed. Please note the above document was generated using voice recognition software. It may contain grammatical, syntax or spelling errors. (2) Chronic respiratory failure with hypoxia and hypercapnia: (3) COPD (chronic obstructive pulmonary disease): COPD type: unspecified COPD Qualified Code(s): J44.9 - Chronic obstructive pulmonary disease, unspecified (4) PAF (paroxysmal atrial fibrillation): Admission and Anticipated Discharge Date Admission Date: February 25, 2020 Subjective Patient seen and examined at bedside. No acute distress, no adverse events overnight. Patient said that is feeling better. Denies any chest pain. No headache, no dizziness. Shortness of breath is improved compared to yesterday after thoracentesis. Review of Systems Review of Systems: All systems reviewed & are unremarkable except as noted in HPI & below Physical Exam Physical Exam: Constitutional: No acute distress HEENT: EOMI, PERRLA Respiratory system: Decreased air entry bilaterally, positive bilateral lower l obe crackles, no wheeze, no rhonchi CVS: S1-S2 positive, no murmurs or gallops, positive left-sided pacemaker Abdomen: Soft, nontender, nondistended, positive bowel sounds x4, obese Extremities: +2 pulses bilaterally radialis/ dorsalis pedis, no cyanosis, +3 pitting edema bilateral lower extremity Neuro: Awake alert oriented x3 Psych: Normal mood and affect Skin: no rashes, warm and dry Lymphatic: no cervical or axillary lymphadenopathy Results & Data Results & Data ([facility]) Vital Signs (Past 12 Hours) Vital Signs Temp Pulse Resp BP BP Pulse Ox 02/27/20 07:09 36.7 C 74 19 93/52 L 97 02/27/20 03:59 36.9 C 71 19 108/41 L 98 02/26/20 23:16 36.9 C 78 19 107/45 L 100 02/27/20 06:05 02/27/20 06:05 PG Care Time/CCT Total # of Minutes Spent Total Time Spent with Patient: Total time spent is greater than 50% in coordination of care (as documented) at patient's floor/unit and/or counseling patient: Coding Level of Care Code 42903 Subseq Hosp Care Lvl 3 Diagnoses Pleural effusion J90 Chronic respiratory failure with hypoxia and hypercapnia J96.11; J96.12 COPD (chronic obstructive pulmonary disease) J44.9 COPD type: unspecified COPD PAF (paroxysmal atrial fibrillation) I48.0
--- NOTE | 2020-02-27 11:31 | Pharmacy Report ---
Pharmacy Abx Dose Short Note - Date of Service February 27, 2020 - Assessment & Plan Assessment 74 year old M receiving vancomycin/imipenem for treatment of pneumonia Day #3 of antimicrobial therapy. Plan Vancomycin * Trough level of 32.7 mcg/mL is supratherapeutic * Will obtain random level this evening to calculate current clearance and dose based on this * Goal trough level 15-20 mcg/mL * Random level ordered for 02/26 @2200 Pharmacy will continue to follow and will adjust dose/frequency as necessary. Thank you.
--- NOTE | 2020-02-27 14:09 | Hospitalist Progress Note ---
Date of Service February 27, 2020 Assessment & Plan (1) Sepsis: Pneumonia Possible healthcare associated PNA Meet Sepsis criteria on admission with elevated WBC, Febrile and elevated lactic acid Procalcitonin negative and COVID negative CXR showed bibasilar consolidation Received Vanco and primaxin and doxycycline Vanco discontinued IV steroid discontinued Blood cx no growth Lactate normalized Continue monitor closely (2) Acute on chronic systolic heart failure: Present on admission with worsening SOB CXR showed evidence of congestive failure and interstitial edema. Right larger than left pleural effusions with bibasilar consolidation. Received Lasix 40mg IV in the ER Continue Lasix IV BID Will put on fluid restriction ProBNP elevated 2315 on admission Cardiology on board Monitor strict I/O Continue monitor BMP while on IV lasix Bilateral pleural effusion CXR showed right larger than left pleural effusions with bibasilar consolidation. S/P thoracentesis on 02/25 where 1.8L pleural fluid removed by casino assistant manager Continue Lasix IV 40mg BID No organisms noted on pleural fluid History of paroxysmal atrial fibrillation S/P pacemaker Rate control with Toprol Continue Heparin IV drip History of pulmonary embolism. INR is 1.5 On coumadin bridge with heparin drip Continue monitor PT/INR History of lower extremity wound Diabetic L heel ulcer MRSA infection in last admission Continue IV abx with Vanco Follow up with the wound care nurse Continue wound care every other day Follow up with ID on 03/04. Chronic obstructive pulmonary disease Does not seems to have COPD exacerbation IV steroid discontinued Pulmonology plan to try on Incruse, but pt said that he cannot tolerate any inhaler because it caused him to cough and pass out sometimes Pt cannot tolerate neb treatment Coronary artery disease Continue on aspirin, statin and metoprolol. Insulin-dependent diabetes Most recent Hba1c 5.9 BS elevated due to IV steroid Continue lantus and novolog sliding scale Chronic kidney disease stage III. Creatinine 0.92 Continue monitor BMP while on IV lasix Hypokalemia Potasium 3.3 today K replaced Monitor BMP Deep venous thrombosis prophylaxis. Continue heparin drip CODE STATUS Conditional (No Intubation/Ventilation) Disposition Continue monitor in tele Admission and Anticipated Discharge Date Admission Date: February 25, 2020 Subjective Pt was seen and examined Sitting in chair with no distress reading his book Pt said that his breathing is much better He said that the swelling in his legs improve Denies any chest pain, palpitation and fever Physical Exam Physical Exam: General- No acute distress Head- atraumatic Eyes- PERRL, EOMI, ENT- oropharynx clear Neck- supple, no JVD Lungs- +diminished breath sound Heart- regular rhythm; no murmur Abdomen- normal bowel sounds, soft, nontender Extremities- no calf tenderness, right LE skin ulcer due to venous ulcer, +edema Neuro- alert, oriented x 3; PERRL, EOMI; no facial palsy; no dysarthria Skin- warm & dry Results & Data Results & Data ([facility]) Vital Signs (Past 12 Hours) Vital Signs Temp Pulse Resp BP BP Pulse Ox 02/27/20 11:49 36.9 C 60 18 96/45 L 100 02/27/20 07:09 36.7 C 74 19 93/52 L 97 02/27/20 03:59 36.9 C 71 19 108/41 L 98 (1) Sepsis Acute respiratory failure type: with hypoxia Sepsis acute organ dysfunction status: with acute organ dysfunction Sepsis type: sepsis due to unspecified organism Severe sepsis acute organ dysfunction type: acute respiratory failure Severe sepsis shock status: without septic shock Qualified Code(s): A41.9 - Sepsis, unspecified organism; R65.20 - Severe sepsis without septic shock; J96.01 - Acute respiratory failure with hypoxia
--- NOTE | 2020-02-27 16:05 | Cardiology Progress Note ---
Date of Service February 27, 2020 Assessment & Plan (1) Acute on chronic systolic heart failure: We will continue IV furosemide but may need to increase dosing depending on clinical course Potassium supplemented, no ongoing arrhythmia Patient on heart failure indicated beta-isaías was metoprolol succinate. Current blood pressure precludes use of VIOLETTA or ARB Echocardiogram ordered for a.m. (2) History of pacemaker: (3) Coronary artery disease: Coronary artery disease, status post inferior wall myocardial infarction with severe multivessel coronary artery disease, deemed nonamenable to intervention (4) Ischemic cardiomyopathy: Admission and Anticipated Discharge Date Admission Date: February 25, 2020 Subjective Patient seen and examined, chart, medications, telemetry reviewed. Patient overall slightly improved today. No acute complaints. No chest pains or tachypalpitations. No longer febrile Review of Systems Review of Systems: All systems reviewed & are unremarkable except as noted in HPI & below Physical Exam Constitutional: + obese; no acute distress Eyes: PERRL, conjunctivae normal, anicteric sclerae ENMT: external ear and nose normal, oropharynx normal Neck: trachea midline, no thyromegaly + thick neck Respiratory: Auscultation: + diminished lung sounds Results & Data ([facility]) Vital Signs (Past 12 Hours) Vital Signs Temp Pulse Resp BP Pulse Ox 02/27/20 15:21 36.8 C 61 18 100/49 L 98 02/27/20 11:49 36.9 C 60 18 96/45 L 100 02/27/20 07:09 36.7 C 74 19 93/52 L 97 Laboratory Results Laboratory Results - last 24 hr 02/26/20 02/26/20 02/26/20 15:36 17:30 17:30 WBC RBC Hgb Hct MCV MCH MCHC RDW Std Deviation RDW Coeff of Lizet Plt Count MPV PT INR APTT PTT Ratio Sodium Potassium Chloride Carbon Dioxide Anion Gap BUN Creatinine Est Cr Clr Drug Dosing Est GFR ( Amer) Est GFR (Non-Af Amer) BUN/Creatinine Ratio Glucose POC Glucose Lactate 2.9 H* Calcium Total Bilirubin Lactate Dehydrogenase Total Protein Albumin Fluid Neutrophils % 4 Fluid Lymphocytes % 70 Fluid Eosinophils % 0 Fluid Meso/Macro/Foster % 26 Pleural Fluid Source RIGHT LUNG Pleural Color YELLOW Pleural Appearance HAZY Pleural pH 7.40 Pleural WBC 336 Pleural RBC < 3000 Pleural Total Protein 3.2 Pleural LDH 77 Pleural Glucose 264 Pleural Amylase 42 Pleural Cholesterol Vancomycin Trough 02/26/20 02/26/20 02/26/20 17:30 18:13 18:13 WBC RBC Hgb Hct MCV MCH MCHC RDW Std Deviation RDW Coeff of Lizet Plt Count MPV PT INR APTT PTT Ratio Sodium Potassium Chloride Carbon Dioxide Anion Gap BUN Creatinine Est Cr Clr Drug Dosing Est GFR ( Amer) Est GFR (Non-Af Amer) BUN/Creatinine Ratio Glucose POC Glucose Lactate 2.7 H* Calcium Total Bilirubin 0.3 Lactate Dehydrogenase Total Protein 7.3 Albumin 2.6 L Fluid Neutrophils % Fluid Lymphocytes % Fluid Eosinophils % Fluid Meso/Macro/Foster % Pleural Fluid Source Pleural Color Pleural Appearance Pleural pH Pleural WBC Pleural RBC Pleural Total Protein Pleural LDH Pleural Glucose Pleural Amylase Pleural Cholesterol Pending Vancomycin Trough 02/26/20 02/26/20 02/27/20 18:13 20:09 00:09 WBC RBC Hgb Hct MCV MCH MCHC RDW Std Deviation RDW Coeff of Lizet Plt Count MPV PT INR APTT PTT Ratio Sodium Potassium Chloride Carbon Dioxide Anion Gap BUN Creatinine Est Cr Clr Drug Dosing Est GFR ( Amer) Est GFR (Non-Af Amer) BUN/Creatinine Ratio Glucose POC Glucose 249 H Lactate 2.0 Calcium Total Bilirubin Lactate Dehydrogenase 172 Total Protein Albumin Fluid Neutrophils % Fluid Lymphocytes % Fluid Eosinophils % Fluid Mes[place]/Macro/Foster % Pleural Fluid Source Pleural Color Pleural Appearance Pleural pH Pleural WBC Pleural RBC Pleural Total Protein Pleural LDH Pleural Glucose Pleural Amylase Pleural Cholesterol Vancomycin Trough 02/27/20 02/27/20 02/27/20 00:13 06:05 06:05 WBC 9.22 RBC 3.26 L Hgb 10.0 L Hct 31.9 L MCV 97.9 MCH 30.7 MCHC 31.3 L RDW Std Deviation 51.5 H RDW Coeff of Lizet 14.4 Plt Count 115 L MPV 10.2 PT 15.4 H INR 1.5 H APTT 53.5 H* PTT Ratio 1.9 Sodium Potassium Chloride Carbon Dioxide Anion Gap BUN Creatinine Est Cr Clr Drug Dosing Est GFR ( Amer) Est GFR (Non-Af Amer) BUN/Creatinine Ratio Glucose POC Glucose Lactate Calcium Total Bilirubin Lactate Dehydrogenase Total Protein Albumin Fluid Neutrophils % Fluid Lymphocytes % Fluid Eosinophils % Fluid Meso/Macro/Foster % Pleural Fluid Source Pleural Color Pleural Appearance Pleural pH Pleural WBC Pleural RBC Pleural Total Protein Pleural LDH Pleural Glucose Pleural Amylase Pleural Cholesterol Vancomycin Trough 02/27/20 02/27/20 02/27/20 06:05 07:13 09:46 WBC RBC Hgb Hct MCV MCH MCHC RDW Std Deviation RDW Coeff of Lizet Plt Count MPV PT INR APTT PTT Ratio Sodium 138 Potassium 3.3 L D Chloride 100 Carbon Dioxide 32 Anion Gap 6.0 BUN 20 H Creatinine 0.92 D Est Cr Clr Drug Dosing 94.1 Est GFR ( Amer) 96.0 Est GFR (Non-Af Amer) 82.8 BUN/Creatinine Ratio 21.7 H Glucose 122 H POC Glucose 133 H Lactate Calcium 7.7 L Total Bilirubin Lactate Dehydrogenase Total Protein Albumin Fluid Neutrophils % Fluid Lymphocytes % Fluid Eosinophils % Fluid Meso/Macro/Foster % Pleural Fluid Source Pleural Color Pleural Appearance Pleural pH Pleural WBC Pleural RBC Pleural Total Protein Pleural LDH Pleural Glucose Pleural Amylase Pleural Cholesterol Vancomycin Trough 32.7 02/27/20 02/27/20 11:05 16:15 WBC RBC Hgb Hct MCV MCH MCHC RDW Std Deviation RDW Coeff of Lizet Plt Count MPV PT INR APTT PTT Ratio Sodium Potassium Chloride Carbon Dioxide Anion Gap BUN Creatinine Est Cr Clr Drug Dosing Est GFR ( Amer) Est GFR (Non-Af Amer) BUN/Creatinine Ratio Glucose POC Glucose 168 H 116 H Lactate Calcium Total Bilirubin Lactate Dehydrogenase Total Protein Albumin Fluid Neutrophils % Fluid Lymphocytes % Fluid Eosinophils % Fluid Meso/Macro/Foster % Pleural Fluid Source Pleural Color Pleural Appearance Pleural pH Pleural WBC Pleural RBC Pleural Total Protein Pleural LDH Pleural Glucose Pleural Amylase Pleural Cholesterol Vancomycin Trough
[2020-02-27] MEDS: WARFARIN SOD 5 MG TAB PO SCH (16:56)
[2020-02-27] MEDS: allopurinoL 300 MG TAB PO SCH (21:09)
[2020-02-27] MEDS: MONTELUKAST SODIUM 10 MG TABLET PO SCH (21:09)
[2020-02-27] MEDS: PRIMIDONE 250 MG TAB PO SCH (21:09)
[2020-02-27] MEDS: ROSUVASTATIN CALCIUM 20 MG TAB PO SCH (21:09)
[2020-02-27] MEDS: METOPROLOL SUCC 25MG EXT REL TAB PO SCH (21:09)
[2020-02-27] MEDS: ASPIRIN 325 MG ECTAB PO SCH (21:09)
[2020-02-27] MEDS: INSULIN GLARGINE SOLOSTAR 100 UNITS/ML 3 ML PEN SQ SCH (21:14)
[2020-02-28] MEDS: HEPARIN SODIUM/DEXTROSE 25,000 UNITS/500 ML BAG IV SCH (03:31)
[2020-02-28] MEDS: IMIPENEM/CILASTATIN SODIUM 400 MG in DEXTROSE 5% 100 ML IV SCH ×4 (03:32→20:43)
[2020-02-28 07:00] LABS: INR 1.7 (0.9-1.1); Partial Thromboplastin Ratio 2.7; Prothrombin Time 17.6 Seconds (9.0-12.0)
[2020-02-28 07:14] LABS: BUN Creatinine Ratio 20.8 (10-20); Calcium 7.9 mg/dl (8.5-10.1); Est GFR (African American) 97.2; Est GFR (Non-African American) 83.9; Potassium 3.3 mmol/L (3.5-5.1)
[2020-02-28 07:15] LABS: Partial Thromboplastin Time 75.4 Seconds (21.0-31.0)
[2020-02-28] MEDS: DOXYCYCLINE HYCLATE 100 MG CAP PO SCH ×2 (08:07→20:51)
[2020-02-28] MEDS: INSULIN ASPART 100 UNITS/ML 3 ML PEN SC SCH ×4 (08:07→20:47)
[2020-02-28] MEDS: FUROSEMIDE 40 MG in SYRINGE 0 ML IV SCH ×2 (08:07→16:40)
[2020-02-28] MEDS ORDERED: POTASSIUM CHLORIDE 20 MEQ TABCR PO STA (08:26)
[2020-02-28 08:46] LABS: Basophils # (auto) 0.01 K/uL (0-0.2); Basophils % (auto) 0.2 %; Eosinophils # (auto) 0.26 K/uL (0-0.5); Eosinophils % (auto) 4.2 %; Hematocrit (blood only) 31.2 % (42-52); Hemoglobin 9.9 g/dL (14.0-18.0); Immature Granulocytes # (auto) 0.01 K/uL (0.00-0.02); Immature Granulocytes % (auto) 0.2 %; Lymphocytes # (auto) 0.81 K/uL (1.2-3.4); Lymphocytes % (auto) 13.2 %; Mean Corpuscular Hemoglobin 30.9 pg (25-34); Mean Corpuscular Hgb Conc 31.7 g/dL (32-36); Mean Corpuscular Volume 97.5 fL (80-100); Mean Platelet Volume 11.1 fL (7.4-10.4); Monocytes # (auto) 0.72 K/uL (0.11-0.59); Monocytes % (auto) 11.7 %; Neutrophils # (auto) 4.34 K/uL (1.4-6.5); Neutrophils % (auto) 70.5 %; Platelet Count 137 K/uL (130-400); RDW Coefficient of Variation 14.4 % (11.5-14.5); RDW Standard Deviation 51.9 fL (36.4-46.3); White Blood Count 6.15 K/uL (4.8-10.8)
[2020-02-28] MEDS ORDERED: FUROSEMIDE 20 MG in SYRINGE 0 ML IV ONE ×2 (11:00→17:45)
--- NOTE | 2020-02-28 11:29 | Cardiology Progress Note ---
Date of Service February 28, 2020 Assessment & Plan (1) Acute on chronic systolic heart failure: We will continue IV furosemide but may need to increase dosing depending on clinical course Potassium supplemented, no ongoing arrhythmia Patient on heart failure indicated beta-isaías was metoprolol succinate. Current blood pressure precludes use of VIOLETTA or ARB Echocardiogram reveals a similar wall motion and function compared to prior mitral tricuspid insufficiency slightly increased in comparison to prior study Plan continue diuresis as ordered with additional dose this morning Will add low-dose spironolactone to regimen Recommend resuming warfarin (2) History of pacemaker: (3) Coronary artery disease: Coronary artery disease, status post inferior wall myocardial infarction with severe multivessel coronary artery disease, deemed nonamenable to intervention (4) Ischemic cardiomyopathy: Admission and Anticipated Discharge Date Admission Date: February 25, 2020 Subjective Patient seen and examined, chart, medications, telemetry reviewed. Patient feels improved. No acute complaints. No chest pains or tachypal pitations. No fever. Patient ambulatory in room Review of Systems Review of Systems: All systems reviewed & are unremarkable except as noted in HPI & below Physical Exam Constitutional: + obese; no acute distress Eyes: PERRL, conjunctivae normal, anicteric sclerae ENMT: external ear and nose normal, oropharynx normal Neck: trachea midline, no thyromegaly + thick neck Respiratory: Auscultation: + diminished lung sounds Results & Data ([facility]) Vital Signs (Past 12 Hours) Vital Signs Temp Pulse Pulse Resp BP Pulse Ox 02/28/20 08:10 72 02/28/20 07:47 36.4 C L 84 18 101/63 96 02/28/20 06:46 36.5 C 73 19 107/42 L 95 02/28/20 04:56 36.5 C 69 18 105/38 L 98 Laboratory Results Laboratory Results - last 24 hr 02/27/20 02/27/20 02/27/20 16:15 21:03 21:51 WBC RBC Hgb Hct MCV MCH MCHC RDW Std Deviation RDW Coeff of Lizet Plt Count MPV Immature Gran % (Auto) Neut % (Auto) Lymph % (Auto) [place] % (Auto) Eos % (Auto) Baso % (Auto) Neut # (Auto) Lymph # (Auto) [place] # (Auto) Eos # (Auto) Baso # (Auto) Immature Gran # (Auto) PT INR APTT PTT Ratio Sodium Potassium Chloride Carbon Dioxide Anion Gap BUN Creatinine Est Cr Clr Drug Dosing Est GFR ( Amer) Est GFR (Non-Af Amer) BUN/Creatinine Ratio Glucose POC Glucose 116 H 148 H Calcium Random Vancomycin 25.6 02/28/20 02/28/20 02/28/20 06:13 06:13 06:13 WBC RBC Hgb Hct MCV MCH MCHC RDW Std Deviation RDW Coeff of Lizet Plt Count MPV Immature Gran % (Auto) Neut % (Auto) Lymph % (Auto) [place] % (Auto) Eos % (Auto) Baso % (Auto) Neut # (Auto) Lymph # (Auto) [place] # (Auto) Eos # (Auto) Baso # (Auto) Immature Gran # (Auto) PT 17.6 H INR 1.7 H APTT 75.4 H* PTT Ratio 2.7 Sodium 138 Potassium 3.3 L Chloride 99 Carbon Dioxide 33 H Anion Gap 6.0 BUN 19 H Creatinine 0.91 Est Cr Clr Drug Dosing 95.0 Est GFR ( Amer) 97.2 Est GFR (Non-Af Amer) 83.9 BUN/Creatinine Ratio 20.8 H Glucose 122 H POC Glucose Calcium 7.9 L Random Vancomycin 23.1 02/28/20 02/28/20 02/28/20 06:13 07:13 11:14 WBC 6.15 RBC 3.20 L Hgb 9.9 L Hct 31.2 L MCV 97.5 MCH 30.9 MCHC 31.7 L RDW Std Deviation 51.9 H RDW Coeff of Lizet 14.4 Plt Count 137 MPV 11.1 H Immature Gran % (Auto) 0.2 Neut % (Auto) 70.5 Lymph % (Auto) 13.2 [place] % (Auto) 11.7 Eos % (Auto) 4.2 Baso % (Auto) 0.2 Neut # (Auto) 4.34 Lymph # (Auto) 0.81 L [place] # (Auto) 0.72 H Eos # (Auto) 0.26 Baso # (Auto) 0.01 Immature Gran # (Auto) 0.01 PT INR APTT PTT Ratio Sodium Potassium Chloride Carbon Dioxide Anion Gap BUN Creatinine Est Cr Clr Drug Dosing Est GFR ( Amer) Est GFR (Non-Af Amer) BUN/Creatinine Ratio Glucose POC Glucose 129 H 151 H Calcium Random Vancomycin
[2020-02-28] MEDS: SPIRONOLACTONE 12.5 MG TAB PO SCH (12:17)
[2020-02-28 13:49] LABS: Partial Thromboplastin Ratio 1.9
[2020-02-28] MEDS ORDERED: IMIPENEM/CILASTATIN SODIUM 500 MG in DEXTROSE 5% 100 ML IV SCH (14:00)
[2020-02-28 14:04] LABS: Partial Thromboplastin Time 54.1 Seconds (21.0-31.0)
[2020-02-28] MEDS: FERROUS SULFATE 325 MG TAB PO SCH (14:46)
[2020-02-28] MEDS: WARFARIN SOD 5 MG TAB PO SCH (15:52)
--- NOTE | 2020-02-28 17:26 | Hospitalist Progress Note ---
Date of Service February 28, 2020 Assessment & Plan (1) Sepsis: Pneumonia Possible healthcare associated PNA Meet Sepsis criteria on admission with elevated WBC, Febrile and elevated lactic acid Procalcitonin negative and COVID negative CXR showed bibasilar consolidation Received Vanco and primaxin and doxycycline Vanco discontinued Continue Vanco and Primaxin IV steroid discontinued Blood cx no growth Lactate normalized Continue monitor closely (2) Acute on chronic systolic heart failure: Present on admission with worsening SOB CXR showed evidence of congestive failure and interstitial edema. Right larger than left pleural effusions with bibasilar consolidation. Received Lasix 40mg IV in the ER Continue Lasix IV BID Will put on fluid restriction ProBNP elevated 2315 on admission Cardiology on board Monitor strict I/O Will increase lasix to 60mg IV BID Spironolactone 12.5mg addded Continue monitor BMP while on IV lasix Bilateral pleural effusion CXR showed right larger than left pleural effusions with bibasilar con solidation. S/P thoracentesis on 02/25 where 1.8L pleural fluid removed by field operations technician Lasix increased to 60mg IV No organisms noted on pleural fluid History of paroxysmal atrial fibrillation S/P pacemaker Rate control with Toprol Continue Heparin IV drip History of pulmonary embolism. INR is 1.7 On coumadin bridge with heparin drip Continue monitor PT/INR History of lower extremity wound Diabetic L heel ulcer MRSA infection in last admission Continue IV abx with Vanco Follow up with the wound care nurse Continue wound care every other day Follow up with ID on 03/04. Chronic obstructive pulmonary disease Does not seems to have COPD exacerbation IV steroid discontinued Pulmonology plan to try on Incruse, but pt said that he cannot tolerate any inhaler because it caused him to cough and pass out sometimes Pt cannot tolerate neb treatment Coronary artery disease Continue on aspirin, statin and metoprolol. Insulin-dependent diabetes Most recent Hba1c 5.9 BS elevated due to IV steroid Continue lantus and novolog sliding scale Chronic kidney disease stage III. Creatinine 0.92 Continue monitor BMP while on IV lasix Hypokalemia Potasium 3.3 today K replaced Monitor BMP Deep venous thrombosis prophylaxis. Continue heparin drip CODE STATUS Conditional (No Intubation/Ventilation) Disposition Continue monitor in tele Admission and Anticipated Discharge Date Admission Date: February 25, 2020 Subjective Pt was seen and examined Sitting at the edge of the bed with no distress Pt said that he feels much better He said that his breathing is better He would like to go home today because his home alone Denies any chest pain, palpitation, dizziness and SOB Physical Exam Physical Exam: General- No acute distress Head- atraumatic Eyes- PERRL, EOMI, ENT- oropharynx clear Neck- supple, no JVD Lungs- +diminished breath sound Heart- regular rhythm; no murmur Abdomen- normal bowel sounds, soft, nontender Extremities- no calf tenderness, right LE skin ulcer due to venous ulcer, +edema Neuro- alert, oriented x 3; PERRL, EOMI; no facial palsy; no dysarthria Skin- warm & dry Results & Data Results & Data ([facility]) Vital Signs (Past 12 Hours) Vital Signs Temp Pulse Pulse Resp BP Pulse Ox 02/28/20 15:42 37.0 C 60 22 114/46 L 100 02/28/20 14:54 60 02/28/20 11:49 36.9 C 100 H 18 116/77 95 02/28/20 08:10 72 02/28/20 07:47 36.4 C L 84 18 101/63 96 02/28/20 06:46 36.5 C 73 19 107/42 L 95 (1) Sepsis Acute respiratory failure type: with hypoxia Sepsis acute organ dysfunction status: with acute organ dysfunction Sepsis type: sepsis due to unspecified organism Severe sepsis acute organ dysfunction type: acute respiratory failure Severe sepsis shock status: without septic shock Qualified Code(s): A41.9 - Sepsis, unspecified organism; R65.20 - Severe sepsis without septic shock; J96.01 - Acute respiratory failure with hypoxia
[2020-02-28] MEDS ORDERED: POTASSIUM CHLORIDE 20 MEQ TABCR PO ONE (17:30)
[2020-02-28] MEDS: ASPIRIN 325 MG ECTAB PO SCH (20:46)
[2020-02-28] MEDS: INSULIN GLARGINE SOLOSTAR 100 UNITS/ML 3 ML PEN SQ SCH (20:46)
[2020-02-28] MEDS: ROSUVASTATIN CALCIUM 20 MG TAB PO SCH (20:46)
[2020-02-28] MEDS: MONTELUKAST SODIUM 10 MG TABLET PO SCH (20:49)
[2020-02-28] MEDS: allopurinoL 300 MG TAB PO SCH (20:51)
[2020-02-28] MEDS: PRIMIDONE 250 MG TAB PO SCH (21:04)
[2020-02-28] MEDS: METOPROLOL SUCC 25MG EXT REL TAB PO SCH (21:05)
[2020-02-29] MEDS: HEPARIN SODIUM/DEXTROSE 25,000 UNITS/500 ML BAG IV SCH (00:36)
[2020-02-29] MEDS: IMIPENEM/CILASTATIN SODIUM 400 MG in DEXTROSE 5% 100 ML IV SCH ×2 (01:59→09:26)
[2020-02-29 07:02] LABS: INR 2.2 (0.9-1.1); Partial Thromboplastin Ratio 2.3; Prothrombin Time 21.9 Seconds (9.0-12.0)
[2020-02-29 07:12] LABS: BUN Creatinine Ratio 21.9 (10-20); Calcium 8.2 mg/dl (8.5-10.1); Creatinine Clr Calc Pharmacy 92.6 ml/min; Est GFR (African American) 94.7; Est GFR (Non-African American) 81.7; Magnesium 1.6 mg/dl (1.8-2.4); Potassium 3.5 mmol/L (3.5-5.1)
[2020-02-29] MEDS ORDERED: POTASSIUM CHLORIDE 20 MEQ TABCR PO STA (07:57)
[2020-02-29] MEDS ORDERED: MAGNESIUM SULFATE / D5W 1 GM/100 ML BAG IV ONE (08:15)
[2020-02-29 08:46] LABS: Partial Thromboplastin Time 63.6 Seconds (21.0-31.0)
[2020-02-29] MEDS: FUROSEMIDE 60 MG in SYRINGE 0 ML IV SCH ×2 (09:21→17:43)
[2020-02-29] MEDS: DOXYCYCLINE HYCLATE 100 MG CAP PO SCH (09:22)
[2020-02-29] MEDS: SPIRONOLACTONE 12.5 MG TAB PO SCH (09:22)
[2020-02-29] MEDS: INSULIN ASPART 100 UNITS/ML 3 ML PEN SC SCH ×3 (09:25→17:51)
--- NOTE | 2020-02-29 11:22 | Cardiology Progress Note ---
Date of Service February 29, 2020 Assessment & Plan (1) Acute on chronic systolic heart failure: Patient clinically improving with IV diuretics. Now on spironolactone We will add low-dose VIOLETTA inhibitor with lisinopril 2.5 mg/day first today following renal function and electrolyte Continue metoprolol succinate Patient now therapeutic on warfarin would discontinue IV heparin to reduce fluid administration (2) History of pacemaker: (3) Coronary artery disease: Coronary artery disease, status post inferior wall myocardial infarction with severe multivessel coronary artery disease, deemed nonamenable to intervention (4) Ischemic cardiomyopathy: Admission and Anticipated Discharge Date Admission Date: February 25, 2020 Subjective Patient seen and examined, chart, medications, telemetry reviewed. Patient sitting on edge of bed without complaint. Review of Systems Review of Systems: All systems reviewed & are unremarkable except as noted in HPI & below Physical Exam Constitutional: + obese; no acute distress Eyes: PERRL, conjunctivae normal, anicteric sclerae ENMT: external ear and nose normal, oropharynx normal Neck: trachea midline, no thyromegaly + thick neck Respiratory: Auscultation: + diminished lung sounds Results & Data ([facility]) Vital Signs (Past 12 Hours) Vital Signs Temp Pulse Pulse Resp BP BP Pulse Ox 02/29/20 08:00 70 02/29/20 07:00 36.7 C 70 20 117/57 L 95 02/29/20 04:21 36.6 C 65 18 106/50 L 100 02/28/20 23:42 36.9 C 73 16 125/38 L 93 Laboratory Results Laboratory Results - last 24 hr 02/28/20 02/28/20 02/28/20 13:08 16:22 20:38 PT INR APTT 54.1 H* PTT Ratio 1.9 Sodium Potassium Chloride Carbon Dioxide Anion Gap BUN Creatinine Est Cr Clr Drug Dosing Est GFR ( Amer) Est GFR (Non-Af Amer) BUN/Creatinine Ratio Glucose POC Glucose 133 H 161 H Calcium Magnesium 02/29/20 02/29/20 02/29/20 05:35 05:35 07:10 PT 21.9 H INR 2.2 H APTT 63.6 H* PTT Ratio 2.3 Sodium 135 L Potassium 3.5 Chloride 96 L Carbon Dioxide 34 H Anion Gap 5.0 BUN 20 H Creatinine 0.93 Est Cr Clr Drug Dosing 92.6 Est GFR ( Amer) 94.7 Est GFR (Non-Af Amer) 81.7 BUN/Creatinine Ratio 21.9 H Glucose 102 H POC Glucose 120 H Calcium 8.2 L Magnesium 1.6 L 02/29/20 11:11 PT INR APTT PTT Ratio Sodium Potassium Chloride Carbon Dioxide Anion Gap BUN Creatinine Est Cr Clr Drug Dosing Est GFR ( Amer) Est GFR (Non-Af Amer) BUN/Creatinine Ratio Glucose POC Glucose 141 H Calcium Magnesium
[2020-02-29] MEDS ORDERED: IMIPENEM/CILASTATIN SODIUM 500 MG in DEXTROSE 5% 100 ML IV SCH (14:00)
--- NOTE | 2020-02-29 17:27 | Hospitalist Progress Note ---
Date of Service February 29, 2020 Assessment & Plan (1) Sepsis: Pneumonia Possible healthcare associated PNA Meet Sepsis criteria on admission with elevated WBC, Febrile and elevated lactic acid Procalcitonin negative and COVID negative CXR showed bibasilar consolidation Received Vanco and primaxin and doxycycline Vanco discontinued On IV Primaxin and doxycycline IV steroid discontinued Blood cx no growth Will discharge on doxycline to complete the course Lactate normalized Continue monitor closely (2) Acute on chronic systolic heart failure: Present on admission with worsening SOB CXR showed evidence of congestive failure and interstitial edema. Right larger than left pleural effusions with bibasilar consolidation. Received Lasix 40mg IV in the ER Continue Lasix IV BID Will put on fluid restriction ProBNP elevated 2315 on admission Cardiology on board Monitor strict I/O Diuresis well on lasix to 60mg IV BID and Spironolactone 12.5mg Pt refused to stay for tonight to continue diuresis case discussed with cardiology that recommended to discharge on lasix 40mg PO BID and spironolactone 12.5 mg since pt refused to stay Lisinopril 2.5 mg added today Check BMP in 2 to 3 days Bilateral pleural effusion CXR showed right larger than left pleural effusions with bibasilar consolidation. S/P thoracentesis on 02/25 where 1.8L pleural fluid removed by food service employee Lasix was increased to 60mg IV BID No organisms noted on pleural fluid Will discharge on lasix 40mg BID History of paroxysmal atrial fibrillation S/P pacemaker Rate control with Toprol IV heparin discontinue since INR 2.2 Continue Coumadin History of pulmonary embolism. INR is 2.2 today IV heparin drip discontinued Follow up with the coag clinic to monitor PT/INR History of lower extremity wound Diabetic L heel ulcer MRSA infection in last admission Continue IV abx with Vanco Follow up with the wound care nurse Continue wound care every other day Follow up with ID on 03/04. Chronic obstructive pulmonary disease Does not seems to have COPD exacerbation IV steroid discontinued Pulmonology plan to try on Incruse, but pt said that he cannot tolerate any inhaler because it caused him to cough and pass out sometimes Pt cannot tolerate neb treatment Coronary artery disease Continue on aspirin, statin and metoprolol. Insulin-dependent diabetes Most recent Hba1c 5.9 BS elevated due to IV steroid Continue lantus and novolog sliding scale Chronic kidney disease stage III. Creatinine 0.92 Continue monitor BMP while on IV lasix Hypokalemia Potassium 3.5 today Will continue K supplement Monitor BMP Deep venous thrombosis prophylaxis. Continue heparin drip CODE STATUS Conditional (No Intubation/Ventilation) Disposition Discharge home today since pt refused to stay to continue IV diuretic Admission and Anticipated Discharge Date Admission Date: February 25, 2020 Subjective Pt was seen and examined Sitting at the edge of the bed with no distress Pt said that he feels good He does not want to stay in the hospital Stick Inserter and I spoke to him about to stay in the hospital to continue diuresis him He said that he has lasix at home and can take it I readdressed that to him multiple times to stay for tonight, he continues to refuse Denies any chest pain, palpitation, dizziness and SOB Physical Exam Physical Exam: General- No acute distress Head- atraumatic Eyes- PERRL, EOMI, ENT- oropharynx clear Neck- supple, no JVD Lungs- +diminished breath sound Heart- regular rhythm; no murmur Abdomen- normal bowel sounds, soft, nontender Extremities- no calf tenderness, right LE skin ulcer due to venous ulcer, +edema Neuro- alert, oriented x 3; PERRL, EOMI; no facial palsy; no dysarthria Skin- warm & dry Results & Data Results & Data ([facility]) Vital Signs (Past 12 Hours) Vital Signs Temp Pulse Pulse Resp BP BP Pulse Ox 02/29/20 16:00 78 02/29/20 14:59 36.6 C 63 18 117/50 L 99 02/29/20 12:00 36.8 C 61 18 111/49 L 96 02/29/20 08:00 70 02/29/20 07:00 36.7 C 70 20 117/57 L 95 (1) Sepsis Acute respiratory failure type: with hypoxia Sepsis acute organ dysfunction status: with acute organ dysfunction Sepsis type: sepsis due to unspecified organism Severe sepsis acute organ dysfunction type: acute respiratory failure Severe sepsis shock status: without septic shock Qualified Code(s): A41.9 - Sepsis, unspecified organism; R65.20 - Severe sepsis without septic shock; J96.01 - Acute respiratory failure with hypoxia
[2020-02-29] MEDS: WARFARIN SOD 5 MG TAB PO SCH (17:43)
--- NOTE | 2020-03-03 22:48 | Discharge Summary ---
Date of Service February 29, 2020 Admission HPI Per Admitting Provider CHIEF COMPLAINT: Shortness of breath. HISTORY OF PRESENT ILLNESS: This is a 74-year-old male with past medical history significant for chronic systolic congestive heart failure with EF of around 40% to 45%, paroxysmal atrial fibrillation, history of PE, on long-term Coumadin; hyperlipidemia, diabetes, insulin requiring, COPD, bronchiectasis, chronic kidney disease stage III, tachybrady syndrome, status post pacemaker, peripheral artery disease, history of stable renal masses, chronic hypoxemic respiratory failure, on home oxygen 2 liters, which he uses as needed, ambulatory dysfunction, uses a powered wheelchair, chronic leg edema. Recently he was in the hospital from 01/22/2020 to 01/28/2020 and discharged to [facility] for IV vancomycin and from there discharged home on 02/11/2020. He was seen in the hospital at that time for left heel wound and was status post I and D and cultures grew MRSA and he was treated with IV antibiotics for 2 weeks and he completed IV antibiotics and PICC line was taken out after antibiotics were completed. The patient saw wound clinic yesterday and he has an appointment with infectious disease on 03/04/2020. He also followed with the PCP. He lives with his . As per last admission also, he does not want DuoNebs because it makes things worse for him. Today he apparently became short of breath and also he became nauseous and vomited 2 times at home. Denies any blood in the vomitus. Denies any chest pain, no abdominal pain. Denies any fever at home, but in the ER he had a temp spike of 38.8. No sick contacts. Currently, he is saturating okay on 6 liters. Somewhat mild respiratory distress but able to give most of the history, is somewhat hard of hearing. Denies any headache, no blurred visions, no earache, no runny nose, no sore throat. He has chronic cough, no difficulty swallowing. No abdominal pain. Normal bowel and bladder movements. Denies any blood in the stools or black stools. No burning micturition. The left lower extremity is in a special ortho Cam boot. Admission Exam Per Admitting Provider GENERAL: The patient is obese, in mild respiratory distress. VITAL SIGNS: Temperature 38.8, pulse 98, respiratory rate 16, blood pressure 145/90, oxygen 95% on 6 liters. HEENT: No pallor, no icterus. Pupils equal, round, and reactive to light. NECK: No JVD, no neck masses, no carotid bruits. CARDIOVASCULAR: S1, S2 heard. Tachycardia. No murmurs appreciated. RESPIRATORY SYSTEM: Normal AP diameter. Currently no accessory muscle use. Mild expiratory wheezing heard. Mild bibasilar crackles. ABDOMEN: Soft, bowel sounds present, nontender. No distention. CENTRAL NERVOUS SYSTEM: Cranial nerves II-XII grossly intact. Nonfocal. EXTREMITIES: Left lower extremity is in ortho Cam boot and right lower extremity is in stockings. No obvious erythema seen. Principal Diagnosis Sepsis Pneumonia Acute on chronic systolic heart failure: Bilateral pleural effusion History of paroxysmal atrial fibrillation S/P pacemaker History of pulmonary embolism. History of lower extremity wound Diabetic L heel ulcer Chronic obstructive pulmonary disease Coronary artery disease Insulin-dependent diabetes Chronic kidney disease stage III. Hypokalemia Discharge Exam General- No acute distress Head- atraumatic Eyes- PERRL, EOMI, ENT- oropharynx clear Neck- supple, no JVD Lungs- +diminished breath sound Heart- regular rhythm; no murmur Abdomen- normal bowel sounds, soft, nontender Extremities- no calf tenderness, right LE skin ulcer due to venous ulcer, +edema Neuro- alert, oriented x 3; PERRL, EOMI; no facial palsy; no dysarthria Skin- warm & dry Discharge Data Allergies Allergy/AdvReac Type Severity Reaction Status Date / Time albuterol Allergy Severe CHOKING Verified 02/25/20 20:56 SENSATION ipratropium Allergy Severe CHOKING Verified 02/25/20 20:56 SENSATION onion Allergy Intermediate RASH Verified 02/25/20 20:56 levofloxacin Allergy Mild other Verified 02/25/20 20:56 atorvastatin AdvReac Intermediate Muscle Pain Verified 02/25/20 20:56 metformin AdvReac Intermediate Diarrhea Verified 02/25/20 20:56 Consultations 02/25/20 20:09 ED Decision to Admit Stat 02/25/20 22:47 Consult Case Management - Discharge Planning Routine 02/26/20 08:00 Consult Cardiology Routine Consult Pulmonology Routine Ordered Studies 02/25/20 22:47 US effusion-chest/mediastinum Routine 02/26/20 10:44 US point of care ultrasound Urgent XR chest 1V portable HISTORY: 74 years-old Male Post thoracentesis COMPARISON: Chest radiograph 02/25/2020 TECHNIQUE: Portable AP view of the chest FINDINGS: Cardiac silhouette is enlarged, unchanged. Left subclavian pacer. No pneumothorax. The patient is slightly rotated. Small right and trace left pleural effusions. The right pleural effusion has decreased in size status post thoracentesis. There is improved aeration of the right lung base. Persistent right basilar consolidation. Moderately improved pulmonary edema. No postprocedural pneumothorax. Degenerative changes of the shoulders and spine. IMPRESSION: 1. Cardiomegaly with moderately improved pulmonary edema. 2. Mildly decreased size of the right pleural effusion status post thoracentesis. No postprocedural pneumothorax identified. 3. Mildly improved aeration of the right lung base. ACT 112: Negative or not required by law. The above report was generated using voice recognition software. It may contain grammatical, syntax or spelling errors. Electronically signed by: Hudson Obregon M.D. 02/26/2020 6:10 PM Dictated: 02/26/201805 Transcribed: 02/26/201805 Study: Chest ultrasound HISTORY: Pleural effusion FINDINGS: No significant left effusion. Right effusion is noted at 600 cc. Interposed lung was identified. This was not marked for thoracentesis due to this finding. IMPRESSION: 1. No significant left effusion. 2. 600 cc right effusion not marked due to interposed lung. Electronically signed by: Wilder Shelton M.D. 02/26/2020 6:01 AM Dictated: 02/26/20 0600 Transcribed: 02/26/20 06 SINGLE VIEW CHEST CLINICAL HISTORY: Dyspnea. FINDINGS: An AP, portable, upright chest radiograph is compared to study dated 01/22/2020. The examination is degraded by portable technique and patient rotation. A 2-lead cardiac pacemaker is unchanged in position. The heart is enlarged. There is pulmonary vascular congestion with evidence of interstitial edema. There are pleural effusions, right larger than left with associated bibasilar consolidation. No pneumothorax is seen. The skeletal structures are osteopenic. The bony thorax is grossly intact. IMPRESSION: 1. Cardiomegaly and cardiac pacemaker with evidence of congestive failure and interstitial edema. 2. Right larger than left pleural effusions with bibasilar consolidation. ACT 112: Negative or not required by law. Electronically signed by: John Mackay M.D. 02/25/2020 7:53 PM Dictated: 02/25/201951 Transcribed: 02/25/201951 Hospital Course (1) Sepsis: Pneumonia Possible healthcare associated PNA Meet Sepsis criteria on admission with elevated WBC, Febrile and elevated lactic acid Procalcitonin negative and COVID negative CXR showed bibasilar consolidation Received Vanco and primaxin and doxycycline Vanco discontinued On IV Primaxin and doxycycline IV steroid discontinued Blood cx no growth Will discharge on doxycline to complete the course Lactate normalized Continue monitor closely (2) Acute on chronic systolic heart failure: Present on admission with worsening SOB CXR showed evidence of congestive failure and interstitial edema. Right larger than left pleural effusions with bibasilar consolidation. Received Lasix 40mg IV in the ER Continue Lasix IV BID Will put on fluid restriction ProBNP elevated 2315 on admission Cardiology on board Monitor strict I/O Diuresis well on lasix to 60mg IV BID and Spironolactone 12.5mg Pt refused to stay for tonight to continue diuresis case discussed with cardiology that recommended to discharge on lasix 40mg PO BID and spironolactone 12.5 mg since pt refused to stay Lisinopril 2.5 mg added today Check BMP in 2 to 3 days Bilateral pleural effusion CXR showed right larger than left pleural effusions with bibasilar consolidation. S/P thoracentesis on 02/25 where 1.8L pleural fluid removed by pack operator Lasix was increased to 60mg IV BID No organisms noted on pleural fluid Will discharge on lasix 40mg BID History of paroxysmal atrial fibrillation S/P pacemaker Rate control with Toprol IV heparin discontinue since INR 2.2 Continue Coumadin History of pulmonary embolism. INR is 2.2 today IV heparin drip discontinued Follow up with the coag clinic to monitor PT/INR History of lower extremity wound Diabetic L heel ulcer MRSA infection in last admission Continue IV abx with Vanco Follow up with the wound care nurse Continue wound care every other day Follow up with ID on 03/04. Chronic obstructive pulmonary disease Does not seems to have COPD exacerbation IV steroid discontinued Pulmonology plan to try on Incruse, but pt said that he cannot tolerate any inhaler because it caused him to cough and pass out sometimes Pt cannot tolerate neb treatment Coronary artery disease Continue on aspirin, statin and metoprolol. Insulin-dependent diabetes Most recent Hba1c 5.9 BS elevated due to IV steroid Continue lantus and novolog sliding scale Chronic kidney disease stage III. Creatinine 0.92 Continue monitor BMP while on IV lasix Hypokalemia Potassium 3.5 today Will continue K supplement Monitor BMP Deep venous thrombosis prophylaxis. Continue heparin drip CODE STATUS Conditional (No Intubation/Ventilation) Disposition Discharge home today since pt refused to stay to continue IV diuretic Total Time Total Time Spent Total Time Spent (In Minutes): 35 minutes Total Time Includes: Examination of the Patient, Discharge Planning, Medication Reconciliation, Communication With Other Providers and Other Discharge Plan Discharge Items Patient Disposition: Home - Home Health Services Reason For Visit: SOB Discharge Diagnosis: Sepsis Pneumonia Acute on chronic systolic heart failure: Bilateral pleural effusion History of paroxysmal atrial fibrillation S/P pacemaker History of pulmonary embolism. History of lower extremity wound Diabetic L heel ulcer Chronic obstructive pulmonary disease Coronary artery disease Insulin-dependent diabetes Chronic kidney disease stage III. Hypokalemia Activity: Resume your previous activity Non-emergency contact: Primary Care Provider Call non-emergency contact if: you have any medication questions Follow-up/Referrals: Ron Mortensen DO [Primary Care Provider] - Diet: Carb Consistent or DM2 Addtl Attending Provider Instructions: Discharge home with home [facility] services Follow up with your primary care provider Dr. Mortensen with 1 week (office will call you for the appointment) Follow up with cardiology (Please call to schedule for the appointment) Follow up with the coumadin clinic to monitor your PT/INR Check BMP on Monday or Monday to monitor your electrolytes and kidney function Continue oxygen supplement Complete the course of the antibiotic Call your Primary Care doctor if any of the following symptoms or problems start or get worse: Shortness of breath or difficulty breathing Wake up at night short of breath Chest pain Cough Swelling of your hands, feet, or legs More fatigued or tired with your normal activity Palpitations - sudden fast heart beats WEIGHT Weigh yourself every morning after using the bathroom. Use the same scale. Wear the same amount of clothing. Write your weight down on a chart. Call your Primary Care doctor if you gain more than 2-3 pounds in 1-2 days. MEDICATIONS Use this discharge instruction sheet for medication instructions. Take your medications at the time your doctor ordered. Do not skip a dose of your medicines. If you miss a dose of medicine, take it as soon as possible, but DO NOT DOUBLE A DOSE. Read your medicine information when you get home. Know all of the side effects of your medicine. If in doubt, ask your pharmacist Call your Primary Care doctor's office if you have any side effects. Be sure all of your doctors know what medicine and herbs you take (including cold, flu, and herbal medicine). Take the following with you to your follow-up doctor appointments: Weight Chart Medication List List of questions Do not drink excessive alcohol, beer or wine. Pending Studies at Discharge: No Stand-Alone Forms: My [facility], Smoking Cessation Medications and DC Order Prescriptions: New spironolactone 25 mg Tablet 12.5 mg PO DAILY 30 Days Qty: 15 RF: 0 lisinopril 2.5 mg Tablet 2.5 mg PO QAM 30 Days Qty: 30 RF: 0 potassium chloride 10 mEq tablet extended release 10 meq PO DAILY Qty: 30 RF: 0 furosemide [Lasix] 40 mg tablet 40 mg PO BID Qty: 60 RF: 0 Continued primidone [Mysoline] 250 mg Tablet 500 mg PO HS RF: 0 nitroglycerin 0.4 mg Tablet, Sublingual 0.4 mg Sublingual UD PRN (Reason: Chest Pain) RF: 0 montelukast [Singulair] 10 mg Tablet 10 mg PO PM RF: 0 allopurinol [Zyloprim] 300 mg Tablet 300 mg PO QPM RF: 0 insulin aspart U-100 [Novolog PenFill U-100 Insulin] 100 unit/mL Cartridge 1 sliding scale dose SUBCUT AC RF: 0 rosuvastatin [Crestor] 40 mg Tablet 40 mg PO HS RF: 0 Lantus Solostar U-100 Insulin 100 unit/mL (3 mL) Insulin Pen 26 unit SUBCUT HS RF: 0 ferrous sulfate [iron] 325 mg (65 mg iron) Tablet 325 mg PO Q OTHER DAY RF: 0 polyethylene glycol 3350 [Miralax] 17 gram Powder In Packet 17 g PO DAILY PRN (Reason: constipation) Qty: 14 RF: 0 warfarin 2 mg Tablet 0 mg PO UD RF: 0 aspirin 325 mg Tablet 325 mg PO HS RF: 0 metoprolol succinate 50 mg Tablet Extended Release 24 Hr 25 mg PO QPM RF: 0 Discontinued furosemide 20 mg tablet 40 mg PO BID RF: 0 Discharge Orders: Discharge Order (Routine); Ordered 02/29/20 Ordered By: Lui Martinez Admission Data Admit Date/Time: 02/25/20 21:17 Attending Provider: Lui Martinez Admit Provider: Glynn Calderon Primary Care Provider: Ron Mortensen Other Providers: Glynn Calderon ; Tk Suarez ; Zaid Stevenson ; Casey Escalante ; Rio Rivera ; Yves Ceballos ; Wilder Sandoval ; Eboni Stock ; Marcy Zimmerman ; Brett Ingram ; Bill Diaz ; Nehal Crenshaw I. ; [facility] Other Interventions: Discharge Summary Assessment (RN) Last Done: 02/29/20 17:46
== END 2020-02-29 18:51 | disposition home health service (06) | DRG 871 ==
LOC: ED 18:35 → SUATTDRO 21:17 → 2E 21:17

== ENCOUNTER 2020-03-14 14:54 | Inpatient (IN) ==
[2020-03-14] MEDS ORDERED: MAGNESIUM SULFATE / D5W 1 GM/100 ML BAG IV STA (15:05)
--- NOTE | 2020-03-14 15:13 | Emergency Department Note ---
Impression & Plan Acute respiratory distress, CHF (congestive heart failure), Pleural effusion ED Provider Note NAME: DARREL ETIENNE AGE: 74 SEX: M : 1945 ARRIVES VIA: Ambulance INFORMANT: [Patient][ems] ED PROVIDER(S): [John Stone MD] CHIEF COMPLAINT: Short of breath HISTORY OF PRESENT ILLNESS: The patient is a 74-year-old male who presents with 3 or 4 days of increasing shortness of breath. He typically wears 2 L of oxygen but has been turning his oxygen amount up to 4 L. Any type of exertion makes him extremely short of breath. No chest pain, no fever, no increased cough. The patient is seeing the wound center for diabetic foot ulcers, he was there a few days ago-the patient thinks his breathing when he was at the clinic was okay. The patient presents by EMS. He states that he feels his Spironolactone may be causing his breathing issues. He did stop this about 3 days ago as a result of his concerns. The patient states he knows he is wheezing but, he cannot have albuterol or Atrovent. These medications cause him to cough and he has in the past lost his consciousness because of so much coughing. He does not recall ever being on BiPAP. Of note, the patient left this hospital about 2 weeks ago. He was admitted for difficulty breathing, sepsis and pneumonia. REVIEW OF SYSTEMS: See HPI for pertinent positives and negatives. A total of ten systems were reviewed and were otherwise negative. PMHx/PSHx: See Below SOCIAL HISTORY: See Below. PHYSICAL EXAM: GENERAL: Patient is in moderate distress, short of breath. HEENT: No acute trauma, normocephalic atraumatic, mucous membranes moist, no nasal congestion, no scleral icterus. NECK: No stridor, no adenopathy, no meningismus, trachea is midline. LUNGS: Moderate respiratory distress, wheezing bilaterally, diminished breath sounds bilaterally especially on the right. The patient is using accessory muscles to breathe and has an increased respiratory rate. He speaks in very s hort sentences. HEART: Without murmurs gallops or rubs, mildly tachycardic, regular rhythm. ABDOMEN: Soft, nontender, bowel sounds positive, no hernias, no peritonitis. EXTREMITIES: No cyanosis. He has bilateral pedal edema. He has a walking boot on the left lower extremity and wraps on the right lower extremity. NEUROLOGIC: Oriented x 3, no acute motor or sensory deficits, no focal weakness. SKIN: No rash, no jaundice, no diaphoresis. DIFFERENTIAL DIAGNOSIS: Reactive airway disease, pneumonia, pneumothorax, COPD, CHF, pleural effusion, infections, cardiac ischemia, pulmonary embolism, musculoskeletal, gastrointestinal, as well as other pathologies. EMERGENCY DEPARTMENT COURSE/PROCEDURES: ECG: Indication was shortness of breath. The ECG has a very poor baseline but I do suspect an underlying sinus rhythm. PVCs are present. The rate is 82. The QTc is 530. Compared to an ECG from 25 February 2020, PVCs are now present, the r ate has decreased. Continuous Cardiac Monitoring: An order was placed for continuous cardiac monitoring. The monitor shows a rate of 113 with sinus tachycardia with occasional PVCs. Critical Care Note: I have personally spent greater than 52 minutes of critical care time in the direct management of this patient. This includes bedside care, interpretation of diagnostic studies, and testing, discussion with consultants, patient, and family members, and other required patient management activities. This 52 minutes is in excess of all separately billable procedures. MEDICAL DECISION MAKING: There is no leukocytosis. The patient does have a mild anemia but he has a history of the same. There is a normal platelet count. INR is 1.5. This elevation is consistent with his Coumadin use. ABG does show some CO2 retention with a value of 60. There was no acidosis though. Looking back at previous testing, the patient appears to have a chronically elevated CO2. No significant electrolyte abnormality or renal failure. Lactic acid level was not elevated making sepsis less likely. There were a few subtle liver enzyme elevations although, the bilirubin was normal. BNP was elevated consistent with fluid o verload. ECG showed what appeared to be a sinus rhythm, no acute ischemic change. Cardiac enzyme testing x1 was not consistent with acute cardiac injury. Chest film showed a complete whiteout of the right lung consistent with a very large right pleural effusion. The left lung was without any infiltrate. Patient was maintained on supplemental O2. He was given IV magnesium and IV Lasix. I did consult with pulmonary medicine. The patient is not in need of an emergent thoracentesis but will require one while in the hospital. I did speak to the patient and to the embedded case manager. Hospitalization is warranted given his respiratory distress. The large right pleural effusion explains his increased dyspnea. The on-call hospitalist was consulted. Past Med/Surg History Medical History Bronchiectasis Chronic kidney disease stage 3 Chronic left ventricular systolic heart failure Chronic respiratory failure with hypoxia and hypercapnia COPD (chronic obstructive pulmonary disease) Coronary artery disease "S/P inferior AL, severe multivessel disease not amenable to intervention" per 2012 cath Diabetes mellitus, type 2 IDDM GERD (gastroesophageal reflux disease) Gout Hearing deficit BL KOO History of CVA (cerebrovascular accident) "YEARS AGO" - reports he has had a tremor ever since stroke. denies additional residual effects History of depression History of DVT (deep vein thrombosis) "YEARS AGO" ETIOLOGY UNK - ON WARFARIN History of pancreatitis History of pulmonary embolism on group home coumadin History of tachycardia-bradycardia syndrome HLD (hyperlipidemia) Ischemic cardiomyopathy EF 45-49% Kidney stone MRSA infection Myocardial Infarction "YEARS AGO" Nephrolithiasis On home oxygen therapy 2 LPM DAILY PRN (secondary to chronic respiratory failure) Osteoarthritis PAD (peripheral artery disease) PAF (paroxysmal atrial fibrillation) DX "years ago" - ON COUMADIN - FOLLOWS W/ DR. ROYCE Rasmussen historian Seizure QUESTIONABLE- EEG 1 WEEK AGO FOR QUESTIONABLE SEIZURE (reported convulsions, loss of consciousness 1 week ago while watching TV) - [place] [facility] - EEG unremarkable Tremor Surgical History H/O toe surgery "amputation left 3rd and 4th toe 03/2012" History of bronchoscopy History of cardiac cath MULTIPLE - NO STENTS [place] (could not recall dates - most recent in system is from 2011 [place]) History of cholecystectomy History of incision of pericardium pericardial window secondary to pericardial effusion History of pacemaker PLACED 10/2017 FOR [employer] - [employer] - LAST CHECKED 05/2019 History of tonsillectomy S/P cystoscopy with ureteral stent placement 07/25/2019 [facility] Status post creation of pericardial window Family History Mother Alzheimer disease Social History Smoking Status: Former smoker Tobacco Type: Cigarettes Cigarettes Per Day: 4-6 packs. Quit in 1971; Second Hand Exposure: No; Hx Alcohol Use: Yes Alcohol type: beer and hard liquor Hx Substance Use: No Preferred Language: Cuban Communication Ability: Effective Litigation Specialist Required: No Beliefs That Will Affect Care: None marital status: Current Living Situation: Spouse current occupation: Formally employed by [employer] with [employer] x 17 years Other Information That Helps Us Care for You: No Feels Safe at Home: Yes Safety Concerns: Feels Safe At This Time Allergies Allergies Allergy/AdvReac Type Severity Reaction Status Date / Time albuterol Allergy Severe CHOKING Verified 03/14/20 16:06 SENSATION ipratropium Allergy Severe CHOKING Verified 03/14/20 16:06 SENSATION onion Allergy Intermediate RASH Verified 03/14/20 16:06 levofloxacin Allergy Mild other Verified 03/14/20 16:06 spironolactone AdvReac Severe Problems Unverified 03/14/20 16:10 with breathing atorvastatin AdvReac Intermediate Muscle Pain Verified 03/14/20 16:06 metformin AdvReac Intermediate Diarrhea Verified 03/14/20 16:06 Home Meds Home Medications Medication Instructions Recorded Confirmed Lantus Solostar U-100 Insulin 25 unit SUBCUT 04/11/18 03/14/20 allopurinol [Zyloprim] 300 mg PO 04/11/18 03/14/20 insulin aspart U-100 [Novolog 1 sliding scale dose SUBCUT AC 04/11/18 03/14/20 PenFill U-100 Insulin] montelukast [Singulair] 10 mg PO 04/11/18 03/14/20 nitroglycerin 0.4 mg SUBLINGUAL UD PRN 04/11/18 03/14/20 primidone [Mysoline] 500 mg PO 04/11/18 03/14/20 rosuvastatin [Crestor] 40 mg PO 04/11/18 03/14/20 aspirin 325 mg PO 08/08/19 03/14/20 metoprolol succinate 25 mg PO HS 08/08/19 03/14/20 ferrous sulfate [iron] 325 mg PO Q OTHER DAY 01/09/20 03/14/20 warfarin [Jantoven] 4 mg PO MOWEFR@2100 03/14/20 03/14/20 warfarin [Jantoven] 6 mg PO SUTUTHSA@2100 03/14/20 03/14/20 Previous Rx's Medication Instructions Recorded polyethylene glycol 3350 [Miralax] 17 g PO DAILY PRN #14 ea 01/28/20 furosemide [Lasix] 40 mg PO BID #60 tab 02/29/20 potassium chloride 10 meq PO DAILY #30 tab 02/29/20 Results & Data (ED) Vital Signs Vital Signs - 24 hr 03/14/20 15:06 03/14/20 15:14 03/14/20 15:40 Temperature 36.8 C Temperature Source Oral Pulse Rate 113 H Pulse Rate [Apical] Pulse Rhythm Pulse Rhythm [Apical] Pulse Strength [Apical] Respiratory Rate 25 H Respiratory Effort / Characteristics Non-Labored Spontaneous Non-Labored Spontaneous Respiratory Depth Normal Normal Respiratory Pattern Regular Regular Blood Pressure 134/62 Blood Pressure [Right Arm] Blood Pressure Mean 86 Blood Pressure Mean [Right Arm] Blood Pressure Position Sitting Blood Pressure Position [Right Arm] Pulse Oximetry 76 L 96 Oxygen Delivery Method Room Air Room Air Nasal Cannula Oxygen Flow Rate 4 2 Sepsis Recent Fever Within 48 Hours No Sepsis New/Unexplained Change in Mental Status N/A Sepsis Action Taken by Nursing Physician Notified 03/14/20 16:20 Temperature Temperature Source Pulse Rate 86 Pulse Rate [Apical] 86 Pulse Rhythm Regular Pulse Rhythm [Apical] Regular Pulse Strength [Apical] Normal Respiratory Rate 24 Respiratory Effort / Characteristics Non-Labored Spontaneous Respiratory Depth Normal Respiratory Pattern Regular Blood Pressure Blood Pressure [Right Arm] 127/59 L Blood Pressure Mean Blood Pressure Mean [Right Arm] 81 Blood Pressure Position Blood Pressure Position [Right Arm] Sitting Pulse Oximetry 99 Oxygen Delivery Method Nasal Cannula Oxygen Flow Rate 2 Sepsis Recent Fever Within 48 Hours Sepsis New/Unexplained Change in Mental Status Sepsis Action Taken by Custodial Medications Current Medication List: was personally reviewed by me Laboratory Data Attestation: I reviewed the patient's lab results. Result diagrams: 03/14/20 15:27 03/14/20 15:27 Lab Results 03/14/20 03/14/20 03/14/20 Range/Units 15:27 15:27 15:27 WBC 6.57 (4.8-10.8) K/uL RBC 3.96 L (4.7-6.1) M/uL Hgb 12.0 L (14.0-18.0) g/dL Hct 39.2 L (42-52) % MCV 99.0 (80-100) fL MCH 30.3 (25-34) pg MCHC 30.6 L (32-36) g/dL RDW Std Deviation 50.3 H (36.4-46.3) fL RDW Coeff of Lizet 13.9 (11.5-14.5) % Plt Count 268 (130-400) K/uL MPV 9.5 (7.4-10.4) fL Immature Gran % (Auto) 0.2 % Neut % (Auto) 73.2 % Lymph % (Auto) 11.7 % [place] % (Auto) 12.0 % Eos % (Auto) 2.4 % Baso % (Auto) 0.5 % Neut # (Auto) 4.81 (1.4-6.5) K/uL Lymph # (Auto) 0.77 L (1.2-3.4) K/uL [place] # (Auto) 0.79 H (0.11-0.59) K/uL Eos # (Auto) 0.16 (0-0.5) K/uL Baso # (Auto) 0.03 (0-0.2) K/uL Immature Gran # (Auto) 0.01 (0.00-0.02) K/uL PT 15.4 H (9.0-12.0) Seconds INR 1.5 H (0.9-1.1) APTT 38.6 H (21.0-31.0) Seconds PTT Ratio 1.4 VBG pH (7.36-7.41) VBG pCO2 (38-50) mmHg VBG pO2 mmHg VBG HCO3 mmol/L VBG O2 Saturation % VBG Base Excess mEq/L Barometric Pressure mm/Hg Sodium 135 L (136-145) mmol/L Potassium 3.7 (3.5-5.1) mmol/L Chloride 95 L (98-107) mmol/L Carbon Dioxide 33 H (21-32) mmol/L Anion Gap 7.0 (3-11) BUN 15 (7-18) mg/dl Creatinine 1.14 (0.6-1.4) mg/dl Est Cr Clr Drug Dosing 71.5 ml/min Est GFR ( Amer) 74.1 Est GFR (Non-Af Amer) 63.9 BUN/Creatinine Ratio 13.2 (10-20) Glucose 140 H (70-99) mg/dl Lactate (0.4-2.0) mmol/L Calcium 9.0 (8.5-10.1) mg/dl Magnesium 1.8 (1.8-2.4) mg/dl Total Bilirubin 0.5 (0.2-1) mg/dl AST 41 H (15-37) U/L ALT 22 (12-78) U/L Alkaline Phosphatase 199 H (45-117) U/L Troponin I < 0.015 (0-0.045) ng/ml NT-Pro-B Natriuret Pep 2126 H (0-900) pg/ml Total Protein 8.4 H (6.4-8.2) gm/dl Albumin 2.6 L (3.4-5.0) gm/dl Globulin 5.8 H (2.5-4.0) gm/dl Albumin/Globulin Ratio 0.4 L (0.9-2) 03/14/20 03/14/20 Range/Units 15:27 15:44 WBC (4.8-10.8) K/uL RBC (4.7-6.1) M/uL Hgb (14.0-18.0) g/dL Hct (42-52) % MCV (80-100) fL MCH (25-34) pg MCHC (32-36) g/dL RDW Std Deviation (36.4-46.3) fL RDW Coeff of Lizet (11.5-14.5) % Plt Count (130-400) K/uL MPV (7.4-10.4) fL Immature Gran % (Auto) % Neut % (Auto) % Lymph % (Auto) % [place] % (Auto) % Eos % (Auto) % Baso % (Auto) % Neut # (Auto) (1.4-6.5) K/uL Lymph # (Auto) (1.2-3.4) K/uL [place] # (Auto) (0.11-0.59) K/uL Eos # (Auto) (0-0.5) K/uL Baso # (Auto) (0-0.2) K/uL Immature Gran # (Auto) (0.00-0.02) K/uL PT (9.0-12.0) Seconds INR (0.9-1.1) APTT (21.0-31.0) Seconds PTT Ratio VBG pH 7.37 (7.36-7.41) VBG pCO2 60 H (38-50) mmHg VBG pO2 28 mmHg VBG HCO3 34 mmol/L VBG O2 Saturation < 60.0 % VBG Base Excess 7.0 mEq/L Barometric Pressure 720.2 mm/Hg Sodium (136-145) mmol/L Potassium (3.5-5.1) mmol/L Chloride (98-107) mmol/L Carbon Dioxide (21-32) mmol/L Anion Gap (3-11) BUN (7-18) mg/dl Creatinine (0.6-1.4) mg/dl Est Cr Clr Drug Dosing ml/min Est GFR ( Amer) Est GFR (Non-Af Amer) BUN/Creatinine Ratio (10-20) Glucose (70-99) mg/dl Lactate 1.7 (0.4-2.0) mmol/L Calcium (8.5-10.1) mg/dl Magnesium (1.8-2.4) mg/dl Total Bilirubin (0.2-1) mg/dl AST (15-37) U/L ALT (12-78) U/L Alkaline Phosphatase (45-117) U/L Troponin I (0-0.045) ng/ml NT-Pro-B Natriuret Pep (0-900) pg/ml Total Protein (6.4-8.2) gm/dl Albumin (3.4-5.0) gm/dl Globulin (2.5-4.0) gm/dl Albumin/Globulin Ratio (0.9-2) Administered Medications Allopurinol (Allopurinol 300 Mg Tab) 300 mg PO HS ANNA Stop: 04/13/20 20:59 Last Admin: 03/14/20 20:37 Dose: 300 mg Documented by: [id number] Furosemide 40 mg/ Syringe 4 mls @ 4 mls/min IV [id number] ANNA Stop: 04/13/20 20:59 Last Admin: 03/14/20 20:38 Dose: 4 mls/min Documented by: [id number] Insulin Aspart (Insulin Aspart 100 Units/Ml 3 Ml Pen) 0 units SC ACHS ANNA Stop: 04/13/20 20:59 Last Admin: 03/14/20 20:48 Dose: 2 units Documented by: [id number] Cosigned by: [id number] Insulin Glargine (Insulin Glargine Solostar 100 Units/Ml 3 Ml Pen) 20 units SQ [facility] Stop: 04/13/20 20:59 Last Admin: 03/14/20 20:48 Dose: 20 units Documented by: [id number] Cosigned by: [id number] Metoprolol Succinate (Metoprolol Succ 25mg Ext Rel Tab) 25 mg PO ANNA Stop: 04/13/20 20:59 Last Admin: 03/14/20 20:37 Dose: 25 mg Documented by: [id number] Montelukast Sodium (Montelukast Sodium 10 Mg Tablet) 10 mg PO HS ANNA Stop: 04/13/20 20:59 Last Admin: 03/14/20 20:38 Dose: 10 mg Documented by: [id number] Prednisone (Prednisone 20 Mg Tab) 40 mg PO DAILY ANNA Stop: 03/18/20 09:01 Last Admin: 03/14/20 20:37 Dose: 40 mg Documented by: [id number] Primidone (Primidone 250 Mg Tab) 500 mg PO [facility] Stop: 04/13/20 20:59 Last Admin: 03/14/20 20:37 Dose: 500 mg Documented by: [id number] Rosuvastatin Calcium (Rosuvastatin Calcium 20 Mg Tab) 40 mg PO [facility] Stop: 04/13/20 20:59 Last Admin: 03/14/20 20:37 Dose: 40 mg Documented by: [id number] Discontinued Medications Furosemide (Furosemide 40 Mg/4 Ml Vial) 40 mg IV NOW STA Stop: 03/14/20 16:09 Last Admin: 03/14/20 17:41 Dose: 40 mg Documented by: [id number] Magnesium Sulfate/Dextrose (Magnesium Sulfate / D5w) 1 gm in 100 mls @ 100 mls/hr IV NOW STA Stop: 03/14/20 16:04 Last Infusion: 03/14/20 16:33 Dose: 0 mls/hr Documented by: [id number] Admin: 03/14/20 15:33 Dose: 100 mls/hr Documented by: [id number] Imaging Data Radiologist's Impression: SINGLE VIEW CHEST CLINICAL HISTORY: Dyspnea. FINDINGS: An AP, portable, upright chest radiograph is compared to study dated 02/26/2020 and correlated with chest CT dated 10/08/2014. The examination is degraded by portable technique and patient rotation. A 2-lead cardiac pacemaker is unchanged in position and partially obscures the left mid chest. The cardiac silhouette is obscured. The pulmonary vasculature appears congested. There is complete opacification of the right hemidiaphragm consistent with a large right pleural effusion and atelectasis of the right lung. A small pleural effusions noted at the left lung base with bibasilar consolidation. No pneumothorax is seen. The skeletal structures are osteopenic. There are healed right-sided rib fractures. IMPRESSION: 1. There is complete opacification of the right hemithorax consistent with a large pleural effusion and atelectasis of the right lung. 2. There is a small pleural effusion at the left lung base with left basilar consolidation. 3. A cardiac pacemaker is noted. There is evidence of pulmonary vascular congestion. Blood Pressure Blood Pressure Findings: Elevated blood pressure Blood Pressure Disposition: further management by hospitalist Discharge Plan Visit Data Chief Complaint: Shortness of Breath/Dyspnea Stated Complaint: sob ED Provider: John Stone Discharge Problem: Acute respiratory distress, CHF (congestive heart failure), Pleural effusion Patient Disposition: Admitted As Inpatient Condition: Serious Discharge Instructions Interventions: ED Discharge Assessment Last Done: 03/14/20 18:17
[2020-03-14 15:39] LABS: Basophils # (auto) 0.03 K/uL (0-0.2); Basophils % (auto) 0.5 %; Eosinophils # (auto) 0.16 K/uL (0-0.5); Eosinophils % (auto) 2.4 %; Hematocrit (blood only) 39.2 % (42-52); Immature Granulocytes # (auto) 0.01 K/uL (0.00-0.02); Immature Granulocytes % (auto) 0.2 %; Lymphocytes # (auto) 0.77 K/uL (1.2-3.4); Lymphocytes % (auto) 11.7 %; Mean Corpuscular Hemoglobin 30.3 pg (25-34); Mean Corpuscular Hgb Conc 30.6 g/dL (32-36); Mean Platelet Volume 9.5 fL (7.4-10.4); Monocytes # (auto) 0.79 K/uL (0.11-0.59); Neutrophils # (auto) 4.81 K/uL (1.4-6.5); Neutrophils % (auto) 73.2 %; Platelet Count 268 K/uL (130-400); RDW Coefficient of Variation 13.9 % (11.5-14.5); RDW Standard Deviation 50.3 fL (36.4-46.3); Red Blood Count 3.96 M/uL (4.7-6.1); White Blood Count 6.57 K/uL (4.8-10.8)
--- NOTE | 2020-03-14 15:44 | XRay Report ---
SINGLE VIEW CHEST CLINICAL HISTORY: Dyspnea. FINDINGS: An AP, portable, upright chest radiograph is compared to study dated 02/26/2020 and correlat ed with chest CT dated 10/08/2014. The examination is degraded by portable technique and patient rotat ion. A 2-lead cardiac pacemaker is unchanged in position and partially obscures the left mid chest. The cardiac silhouette is obscured. The pulmonary vasculature appears congested. There is complete o pacification of the right hemidiaphragm consistent with a large right pleural effusion and atelectasi s of the right lung. A small pleural effusions noted at the left lung base with bibasilar consolidati on. No pneumothorax is seen. The skeletal structures are osteopenic. There are healed right-sided rib fractures. IMPRESSION: 1. There is complete opacification of the right hemithorax consistent with a large pleural effusion a nd atelectasis of the right lung. 2. There is a small pleural effusion at the left lung base with left basilar consolidation. 3. A cardiac pacemaker is noted. There is evidence of pulmonary vascular congestion. ACT 112: Negative or not required by law. Electronically signed by: John Mackay M.D. 03/14/2020 3:43 PM
[2020-03-14 15:48] LABS: INR 1.5 (0.9-1.1); Partial Thromboplastin Ratio 1.4; Partial Thromboplastin Time 38.6 Seconds (21.0-31.0); Prothrombin Time 15.4 Seconds (9.0-12.0)
[2020-03-14 15:58] LABS: Alanine Aminotransferase 22 U/L (12-78); Albumin Level 2.6 gm/dl (3.4-5.0); Aspartate Aminotransferase 41 U/L (15-37); BUN Creatinine Ratio 13.2 (10-20); Blood Urea Nitrogen 15 mg/dl (7-18); Carbon Dioxide 33 mmol/L (21-32); Chloride 95 mmol/L (98-107); Creatinine Clr Calc Pharmacy 71.5 ml/min; Est GFR (African American) 74.1; Est GFR (Non-African American) 63.9; Glucose 140 mg/dl (70-99); Magnesium 1.8 mg/dl (1.8-2.4); Potassium 3.7 mmol/L (3.5-5.1); Sodium 135 mmol/L (136-145)
[2020-03-14 15:59] LABS: HCO3 VBG 34 mmol/L; Oxygen Saturation VBG < 60.0 %; PCO2 VBG 60 mmHg (38-50); PO2 VBG 28 mmHg; pH VBG 7.37 (7.36-7.41)
[2020-03-14 16:03] LABS: Albumin Globulin Ratio 0.4 (0.9-2); Alkaline Phosphatase 199 U/L (45-117); Bilirubin,Total 0.5 mg/dl (0.2-1); Globulin 5.8 gm/dl (2.5-4.0); NT Pro B Type Natriuretic Pept 2126 pg/ml (0-900); Total Protein 8.4 gm/dl (6.4-8.2); Troponin I < 0.015 ng/ml (0-0.045)
[2020-03-14] MEDS ORDERED: FUROSEMIDE 40 MG/4 ML VIAL IV STA (16:08)
--- NOTE | 2020-03-14 18:21 | History & Physical Report ---
Date of Service March 14, 2020 Assessment & Plan (1) Pleural effusion: (2) Acute on chronic systolic heart failure: -Admit to telemetry -Patient presenting from home with reports of worsening shortness of breath. Recent admission to [facility] 02/24 through 02/28 for management of pleural effusion due to CHF and pneumonia. Patient underwent right-sided thoracentesis on 02/25 for 1800 cc of fluid. Light's criteria was consistent with transudate of effusion. Noted patient self stopped spironolactone shortly after discharge. -In the ED, CXR shows complete opacification of the right hemithorax -Patient currently saturating well on chronic 2 L of oxygen, hemodynamically stable -On furosemide 40 mg twice daily at home; s/p Lasix 40 mg IV in the ED, will continue with Lasix 40 mg IV twice daily -Will need repeat thoracentesis, case discussed with Dr. Villanueva -Afebrile, no leukocytosis - will hold on antibiotics for now (3) COPD (chronic obstructive pulmonary disease): (4) Chronic respiratory failure with hypoxia and hypercapnia: -Has some wheezing on exam, likely secondary to CHF -Saturating well on chronic 2 L of O2 -Will start prednisone 40 mg p.o. daily x5 days -Patient declines inhalers and nebulizers (5) Coronary artery disease: -Appears stable, no reports of chest pain -Hold aspirin due to thoracentesis -Continue beta-isaías and statin (6) History of tachycardia-bradycardia syndrome: (7) History of pacemaker: -No acute issues (8) Diabetes mellitus, type 2: -Hgb A1c 5.9 02/2020 -Lantus and NovoLog per protocol while hospitalized (9) PAF (paroxysmal atrial fibrillation): -Rate controlled on metoprolol, will continue -Anticoagulated on Coumadin, INR 1.5; hold Coumadin in anticipation of thoracentesis (10) History of pulmonary embolism: (11) History of DVT (deep vein thrombosis): -Holding Coumadin in anticipation of thoracentesis (12) DVT prophylaxis: -INR 1.5, holding Coumadin as above. SCDs while INR <2.0 History of Present Illness Chief Complaint: Shortness of breath Primary Care Provider: Ron Mortensen DO 74-year-old male with PMH DM type II, chronic hypoxic respiratory failure, COPD, ischemic cardiomyopathy, paroxysmal atrial fibrillation, CAD, tachybradycardia syndrome s/p pacemaker, DVT and PE, HTN, and other problems listed below who presents the ED for evaluation of shortness of breath. Patient recently admitted to [facility] 02/24 to 02/28 for management of pleural effusion secondary to CHF and pneumonia. Patient underwent right-sided thoracentesis on 02/25 for 1800 cc of fluid. Light's criteria was consistent with a transudate of effusion. Patient was discharged on spironolactone 12.5 mg daily, lisinopril 2.5 mg daily, and potassium replacement. Patient reports self stopping spironolactone and lisinopril. He felt as though spironolactone was making his shortness of breath worse and also felt like his BP was low enough and he did not need the lisinopril. Patient reports worsening shortness of breath and cough over the past few days. He chronically wears 2 L of oxygen at home however has been increasing up to 4 L. Patient denies sputum production. No fevers or chills. He denies chest pain. No lightheadedness, dizziness, diaphoresis, syncopal events. He denies any urinary symptoms. In the ED, CXR shows complete opacification of the right hemithorax. He is saturating well on his chronic 2 L of oxygen. He is afebrile, no leukocytosis. Patient was given Lasix 40 mg IV and IV magnesium replacement. Allergies Allergy/AdvReac Type Severity Reaction Status Date / Time albuterol Allergy Severe CHOKING Verified 03/14/20 16:06 SENSATION ipratropium Allergy Severe CHOKING Verified 03/14/20 16:06 SENSATION onion Allergy Intermediate RASH Verified 03/14/20 16:06 levofloxacin Allergy Mild other Verified 03/14/20 16:06 spironolactone AdvReac Severe Problems Unverified 03/14/20 16:10 with breathing atorvastatin AdvReac Intermediate Muscle Pain Verified 03/14/20 16:06 metformin AdvReac Intermediate Diarrhea Verified 03/14/20 16:06 Home Medications Home Medications Medication Instructions Recorded Confirmed Type Lantus Solostar U-100 Insulin 25 unit SUBCUT HS 04/11/18 03/14/20 History allopurinol [Zyloprim] 300 mg PO HS 04/11/18 03/14/20 History insulin aspart U-100 [Novolog 1 sliding scale dose SUBCUT AC 04/11/18 03/14/20 History PenFill U-100 Insulin] montelukast [Singulair] 10 mg PO HS 04/11/18 03/14/20 History nitroglycerin 0.4 mg SUBLINGUAL UD PRN 04/11/18 03/14/20 History primidone [Mysoline] 500 mg PO HS 04/11/18 03/14/20 History rosuvastatin [Crestor] 40 mg PO HS 04/11/18 03/14/20 History aspirin 325 mg PO HS 08/08/19 03/14/20 History metoprolol succinate 25 mg PO HS 08/08/19 03/14/20 History ferrous sulfate [iron] 325 mg PO Q OTHER DAY 01/09/20 03/14/20 History polyethylene glycol 3350 [Miralax] 17 g PO DAILY PRN #14 ea 01/28/20 03/14/20 Rx furosemide [Lasix] 40 mg PO BID #60 tab 02/29/20 03/14/20 Rx potassium chloride 10 meq PO DAILY #30 tab 02/29/20 03/14/20 Rx warfarin [Jantoven] 4 mg PO MOWEFR@209903/14/20 03/14/20 History warfarin [Jantoven] 6 mg PO SUTUTHSA@209903/14/20 03/14/20 History Past Med/Surg History Medical History (Updated 03/14/20 @ 18:30 by AMY Barron) Bronchiectasis Chronic kidney disease stage 3 Chronic left ventricular systolic heart failure Chronic respiratory failure with hypoxia and hypercapnia COPD (chronic obstructive pulmonary disease) Coronary artery disease "S/P inferior CT, severe multivessel disease not amenable to intervention" per 2012 cath Diabetes mellitus, type 2 IDDM GERD (gastroesophageal reflux disease) Gout Hearing deficit BL KOO History of CVA (cerebrovascular accident) "YEARS AGO" - reports he has had a tremor ever since stroke. 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 ROYCE Rasmussen historian Seizure QUESTIONABLE- EEG 1 WEEK AGO FOR QUESTIONABLE SEIZURE (reported convulsions, loss of consciousness 1 week ago while watching TV) - [facility] - EEG unremarkable Tremor Surgical History H/O toe surgery "amputation left 3rd and 4th toe 03/2012" History of bronchoscopy History of cardiac cath MULTIPLE - NO STENTS [place] (could not recall dates - most recent in system is from [place]) History of cholecystectomy History of incision of pericardium pericardial window secondary to pericardial effusion History of pacemaker PLACED 10/2017 FOR TACHY-SARA SYNDROME - [employer] - LAST CHECKED 05/2019 History of tonsillectomy S/P cystoscopy with ureteral stent placement 07/25/2019 [facility] Status post creation of pericardial window Family History Mother Alzheimer disease Social History Smoking Status: Former smoker Tobacco Type: Cigarettes Cigarettes Per Day: 4-6 packs. 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 Cortez's addendum for physical exam. Results & Data Results & Data ([facility]) Vital Signs (Past 12 Hours) Vital Signs Temp Pulse Pulse Resp BP BP Pulse Ox 03/14/20 17:42 81 20 138/73 97 03/14/20 16:20 86 86 24 127/59 L 99 03/14/20 15:14 96 03/14/20 15:06 36.8 C 113 H 25 H 134/62 76 L Laboratory Results Short CBC 03/14/20 Range/Units 15:27 WBC 6.57 (4.8-10.8) K/uL Hgb 12.0 L (14.0-18.0) g/dL Hct 39.2 L (42-52) % Plt Count 268 (130-400) K/uL BMP 03/14/20 15:27 Sodium 135 L Potassium 3.7 Chloride 95 L Carbon Dioxide 33 H BUN 15 Creatinine 1.14 Glucose 140 H Calcium 9.0 Cardiac Enzymes 03/14/20 Range/Units 15:27 Troponin I < 0.015 (0-0.045) ng/ml Liver Function 03/14/20 Range/Units 15:27 Total Bilirubin 0.5 (0.2-1) mg/dl AST 41 H (15-37) U/L ALT 22 (12-78) U/L Alkaline Phosphatase 199 H (45-117) U/L Albumin 2.6 L (3.4-5.0) gm/dl Diagnostic Findings CXR IMPRESSION: 1. There is complete opacification of the right hemithorax consistent with a large pleural effusion and atelectasis of the right lung. 2. There is a small pleural effusion at the left lung base with left basilar consolidation. 3. A cardiac pacemaker is noted. There is evidence of pulmonary vascular congestion. Code Status & VTE Plan VTE Prophylaxis Plan VTE Prophylaxis will be ordered: Yes Supervising Physician Co-Signing Physician Notes Attending Addendum: care coordinated with AYM Larsen please refer to her notes for full details, I agree with her notes patient seen and examined, records reviewed by myself as well on exam, patient seen resting in bed, comfortable, on 2 L o2 via nC has mild dyspnea, but no chest pain, cough, sputum, fever/chills no other symptoms VS noted and reviewed oriented x 3, not in distress, speaks in sentences with no effort nor accessory muscle use normal rate, regular rhythm, no murmurs decreased breath sounds on the right, (+) mild scattered wheezing bilaterally non distended, soft, nontender (+) corina hose BL, (+) boot on the LLE, declines exam of the lower ext--> "my wounds are healing" no neuro deficits WBC 6.5 Hg 12.0 Crea 1.1 CXR: 1. There is complete opacification of the right hemithorax consistent with a large pleural effusion and atelectasis of the right lung. 2. There is a small pleural effusion at the left lung base with left basilar consolidation. 3. A cardiac pacemaker is noted. There is evidence of pulmonary vascular congestion. ASSESSMENT AND PLAN> RIGHT PLEURAL EFFUSION, RECURRENT LIKELY ACUTE ON CHRONIC SYSTOLIC CHF Lasix 40mg IV BID Pulm Consulted--> Thoracentesis planned today INR 1.5, hold coumadin today POSSIBLE MILD COPD EXACERBATION Prednisone 40mg po daily patient declines bronchodilators--> makes breathing worse per patient no fever, leukocytosis: will hold off on antibiotics other diagnoses and plan of care as per AMY Larsen's notes Chad Cortez MD (1) COPD (chronic obstructive pulmonary disease) COPD type: unspecified COPD Qualified Code(s): J44.9 - Chronic obstructive pulmonary disease, unspecified
[2020-03-14] MEDS ORDERED: GLUCAGON FOR INJ 1 MG VIAL SQ PRN (18:56)
[2020-03-14] MEDS ORDERED: CARBOHYDRATES FOR HYPOGLYCEMIA PO PRN (18:56)
[2020-03-14] MEDS ORDERED: GLUCOSE 40% GEL 15 GM TUBE PO PRN (18:56)
[2020-03-14] MEDS ORDERED: GLUCOSE 10 TABS/TUBE PO PRN (18:56)
[2020-03-14] MEDS ORDERED: DEXTROSE 50% 50 ML SYRINGE IV PRN (18:56)
[2020-03-14] MEDS ORDERED: ACETAMINOPHEN 325 MG TAB PO PRN (18:56)
--- NOTE | 2020-03-14 19:50 | Pulmonary Consultation ---
Date of Consultation March 14, 2020 Assessment & Plan (1) Chronic respiratory failure with hypoxia and hypercapnia: Impression: 74-year-old male with chronic hypoxemic hypercarbic respiratory failure and reported history of COPD although I do not have PFTs available admitted with progressive hypoxemic respiratory failure and large likely left pleural effusion. Its unclear if there is underlying parenchymal disease or an airway lesion as he is not had CT scanning performed. Recommendations: 1. Patient will undergo catheter-based thoracentesis. I had a lengthy discussion with the patient regarding catheter thoracentesis versus placement of a pigtail catheter for long-term drainage. The patient is not enthusiastic about a indwelling pigtail drain currently and would like to see how he does with catheter based intervention for now. Fluid will be resent for characteristics as well as cytology and cultures. 2. Ideally the patient should undergo a CT scan of the chest however I will hold off for now until we have been able to drain some additional fluid to better interrogate the underlying pulmonary parenchyma. 3. Hypoxemic and hypercarbic respiratory failure: The patient is reasonably well compensated per currently. He may benefit from outpatient Trelegy but seems to be well compensated currently and doing well. Continue diuresis and management of his underlying heart failure per the primary admitting service. Additional recommendations and plan will be based on follow-up imaging as well as results of the patient's pleural fluid analysis. The above recommendations and plan were extensively discussed with patient at the bedside. Questions were answered to the best my ability. He expressed understanding and is in agreement with the plan as outlined (2) Pleural effusion: (3) Chronic left ventricular systolic heart failure: History of Present Illness Attending Physician: Chad Cortez MD History of Present Illness Asked by hospitalist and ER staff to assist in management this patient with opacification of the right hemithorax. History is obtained from review the electronic medical record, discussion with the ER staff, and interview the patient. Patient is a 74-year-old male with a history of lung disease who is followed by the [facility] pulmonary group. He was admitted about 2-1/2 weeks ago and was seen by 1 of my partners. At that time he had a pleural effusion. There was concern about potential parapneumonic effusion and he underwent a thoracentesis. Fluid characteristics were bland and it was felt that this fluid likely represented issues related to diastolic heart failure. The patient felt symptom atically better after the effusion was drained. He was eventually dismissed from the hospital. He states that over the last several weeks he has had issues with increasing shortness of breath. He has had a nonproductive cough. He does not recall any trauma to his chest. He is anticoagulated on Coumadin for atrial fibrillation and a remote history of DVT PE. He does report some unintentional weight loss although he is unable to quantitate. He does relate some night sweats and decreasing energy level. In the emergency room he had a chest x-ray performed. He is had issues with multiple nebulized medications saying that they cause syncopal episodes. Allergies Allergy/AdvReac Type Severity Reaction Status Date / Time albuterol Allergy Severe CHOKING Verified 03/14/20 16:06 SENSATION ipratropium Allergy Severe CHOKING Verified 03/14/20 16:06 SENSATION onion Allergy Intermediate RASH Verified 03/14/20 16:06 levofloxacin Allergy Mild other Verified 03/14/20 16:06 spironolactone AdvReac Severe Problems Unverified 03/14/20 16:10 with breathing atorvastatin AdvReac Intermediate Muscle Pain Verified 03/14/20 16:06 metformin AdvReac Intermediate Diarrhea Verified 03/14/20 16:06 Home Medications Home Medications Medication Instructions Recorded Confirmed Type Lantus Solostar U-100 Insulin 25 unit SUBCUT HS 04/11/18 03/14/20 History allopurinol [Zyloprim] 300 mg PO HS 04/11/18 03/14/20 History insulin aspart U-100 [Novolog 1 sliding scale dose SUBCUT AC 04/11/18 03/14/20 History PenFill U-100 Insulin] montelukast [Singulair] 10 mg PO HS 04/11/18 03/14/20 History nitroglycerin 0.4 mg SUBLINGUAL UD PRN 04/11/18 03/14/20 History primidone [Mysoline] 500 mg PO HS 04/11/18 03/14/20 History rosuvastatin [Crestor] 40 mg PO HS 04/11/18 03/14/20 History aspirin 325 mg PO HS 08/08/19 03/14/20 History metoprolol succinate 25 mg PO HS 08/08/19 03/14/20 History ferrous sulfate [iron] 325 mg PO Q OTHER DAY 01/09/20 03/14/20 History polyethylene glycol 3350 [Miralax] 17 g PO DAILY PRN #14 ea 01/28/20 03/14/20 Rx furosemide [Lasix] 40 mg PO BID #60 tab 02/29/20 03/14/20 Rx potassium chloride 10 meq PO DAILY #30 tab 02/29/20 03/14/20 Rx warfarin [Jantoven] 4 mg PO MOWEFR@209903/14/20 03/14/20 History warfarin [Jantoven] 6 mg PO SUTUTHSA@209903/14/20 03/14/20 History Patient History Medical History (Updated 03/14/20 @ 18:30 by AMY Barron) Bronchiectasis Chronic kidney disease stage 3 Chronic left ventricular systolic heart failure Chronic respiratory failure with hypoxia and hypercapnia COPD (chronic obstructive pulmonary disease) Coronary artery disease "S/P inferior [place], severe multivessel disease not amenable to intervention" per 2012 cath Diabetes mellitus, type 2 IDDM GERD (gastroesophageal reflux disease) Gout Hearing deficit BL KOO History of CVA (cerebrovascular accident) "YEARS AGO" - reports he has had a tremor ever since stroke. 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 ROYCE Rasmussen historian Seizure QUESTIONABLE- EEG 1 WEEK AGO FOR QUESTIONABLE SEIZURE (reported convulsions, loss of consciousness 1 week ago while watching TV) - [place] [facility] - EEG unremarkable Tremor Surgical History H/O toe surgery "amputation left 3rd and 4th toe 03/2012" History of bronchoscopy History of cardiac cath MULTIPLE - NO STENTS [place] (could not recall dates - most recent in system is from [place]) History of cholecystectomy History of incision of pericardium pericardial window secondary to pericardial effusion History of pacemaker PLACED 10/2017 FOR TACHY-SARA SYNDROME - [employer] - LAST CHECKED 05/2019 History of tonsillectomy S/P cystoscopy with ureteral stent placement 07/25/2019 [facility] Status post creation of pericardial window Family History Mother Alzheimer disease Social History Smoking Status: Former smoker Tobacco Type: Cigarettes Cigarettes Per Day: 4-6 packs. 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 I have no additions or deletions Physical Exam Constitutional: WD/WN, vitals as above Neck: trachea midline, no thyromegaly Respiratory: + labored breathing Bibasilar wheezes and crackles noted. Dullness to percussion with increased fremitus in the right hemithorax Cardiovascular: RRR, no murmur, no edema Gastrointestinal (Abdomen): normal bowel sounds, soft, nontender, no hepa tosplenomegaly Musculoskeletal: Extremities: extremities normal to inspection Skin: no rashes, warm and dry Neurologic: Nonfocal exam Lymphatic: no cervical lymphadenopathy Results & Data Results & Data ([facility]) Vital Signs (Past 12 Hours) Vital Signs Temp Pulse Pulse Resp BP BP Pulse Ox 03/14/20 19:00 36.7 C 91 H 22 140/77 97 03/14/20 18:17 80 20 96 03/14/20 17:42 81 20 138/73 97 03/14/20 16:20 86 86 24 127/59 L 99 03/14/20 15:14 96 03/14/20 15:06 36.8 C 113 H 25 H 134/62 76 L Laboratory Results 03/14/20 15:27 03/14/20 15:27 Venous blood gas showed a pH of 7.37 with a PCO2 of 60. INR was 1.5 Alk phos elevated at 199. AST borderline elevated at 41. Total bili and ALT normal. Troponin undetectable BNP elevated at 2126 Diagnostic Findings Chest x-ray was independently reviewed. There is opacification of the right hemithorax without significant mediastinal shift. The left lung appears clear. Pacemaker in place. The patient's last CTs of the chest was performed back in 2014. There was a nodule present in the right lung apex at that time. Is unclear if this was followed or not. Chest x-rays from earlier this month demonstrated small bilateral pleural effusions, right greater than left. PG Care Time/CCT Total # of Minutes Spent Total Time Spent with Patient: Total time spent is greater than 50% in coordination of care (as documented) at patient's floor/unit and/or counseling patient: Coding Level of Care Code 95272 Initial Inpt Care Lvl 3 Diagnoses Chronic respiratory failure with hypoxia and hypercapnia J96.11; J96.12 Pleural effusion J90 Chronic left ventricular systolic heart failure I50.22
--- NOTE | 2020-03-14 19:53 | Procedure Note ---
Procedure Note Date of Service March 14, 2020 Procedure: Diagnostic therapeutic ultrasound-guided catheter thoracentesis Inverted Block Operator: Dr. Yohan Villanueva Indication: Pleural effusion Consent: Signed by patient and verified with timeout prior to procedure Anesthesia: 8 mL's 1% lidocaine without epinephrine local. Procedure: Consent was verified and timeout performed. Appropriate imaging studies were reviewed prior to the procedure. Patient was placed in a seated position. Decreased breath sounds dullness to percussion and increased fremitus were observed in the right hemithorax and a site appropriate for thoracentesis was marked. The skin was prepped and draped in normal sterile fashion. Lidocaine was used for local analgesia. Fluid was aspirated via the finder needle. A small skin ross was made with the scalpel and the catheter over the needle apparatus was advanced over the rib into the pleural space. Using a combination of Vacutainer's and the syringe one-way valve system, a total of 2200 mL's of bloody fluid was removed. Procedure was terminated due to desire to not cause reexpansion pulmonary edema. The catheter was removed and observed to be intact. A sterile dressing was applied. Post procedure chest x-ray was ordered. Fluid was sent for cytology, cell count differential, LDH, Gram stain and culture, pH, total protein, and glucose.. The patient tolerated the procedure well without obvious complication In light of the bloody effusion, would recommend holding the patient's anticoagulation. CT of the chest will be considered however may need to try and draw additional fluid off in the next 24 [address] a pigtail catheter drain to allow for reexpansion of the lung and better imaging quality. If a definitive diagnosis is not achieved with repeat pleural fluid analysis and CT scanning, consideration for video-assisted thoracoscopic evaluation of the chest may be appropriate. Coding CPT Codes Pulmonary/Thoracic - Pulmonary and Thoracic: 63343 Thoracentesis w/o imaging ([id number]) [facility] [facility] [place] Codes (Charges) Pulmonary/Thoracic Procedure 1: Pulmonary and Thoracic: 15443 Thoracentesis w/o imaging
--- NOTE | 2020-03-14 19:57 | XRay Report ---
SINGLE VIEW CHEST CLINICAL HISTORY: Status post thoracentesis. FINDINGS: An AP, portable, upright chest radiograph is compared to study performed earlier the same d ay 03/14/2020 [address] correlated with chest CT dated 10/08/2014. The examination is degraded by portable te chnique and patient rotation. A 2-lead cardiac pacemaker is unchanged in position and partially obs cures the left upper chest. The heart appears mildly enlarged. Pulmonary vascular congestion persists . There is a small to moderate right pleural effusion which has significantly decreased in size as co mpared to earlier today. There is significantly improved aeration of the right lung. A small pleural effusions noted at the left lung base with bibasilar consolidation. No pneumothorax is seen. The skel etal structures are osteopenic. There are healed right-sided rib fractures. IMPRESSION: 1. No pneumothorax is identified post procedure. 2. Significant decrease in the size of a right pleural effusion with improved aeration of the right l rob. 3. Unchanged appearance of a small left pleural effusion with left basilar consolidation. 4. Mild pulmonary vascular congestion persists. ACT 112: Negative or not required by law. Electronically signed by: John Mackay M.D. 03/14/2020 7:56 PM
[2020-03-14] MEDS: PRIMIDONE 250 MG TAB PO SCH (20:37)
[2020-03-14] MEDS: allopurinoL 300 MG TAB PO SCH (20:37)
[2020-03-14] MEDS: predniSONE 20 MG TAB PO SCH (20:37)
[2020-03-14] MEDS: METOPROLOL SUCC 25MG EXT REL TAB PO SCH (20:37)
[2020-03-14] MEDS: ROSUVASTATIN CALCIUM 20 MG TAB PO SCH (20:37)
[2020-03-14] MEDS: FUROSEMIDE 40 MG in SYRINGE 0 ML IV SCH (20:38)
[2020-03-14] MEDS: MONTELUKAST SODIUM 10 MG TABLET PO SCH (20:38)
[2020-03-14] MEDS: INSULIN ASPART 100 UNITS/ML 3 ML PEN SC SCH (20:48)
[2020-03-14] MEDS: INSULIN GLARGINE SOLOSTAR 100 UNITS/ML 3 ML PEN SQ SCH (20:48)
[2020-03-14 20:53] LABS: Appearance Pleural Fluid TURBID; Basophils, Fluid 0 %; Color Pleural Fluid RED; Eosinophils, Fluid 10 %; Lymphocytes, Fluid 66 %; Mono,Macrophage,Mesothelial 15 %; Neutrophils, Fluid 9 %; RBC Pleural Fluid (A) 185000 /uL; Source Pleural Fluid RIGHT LUNG; WBC Pleural Fluid (A) 1819 /uL
[2020-03-14] MEDS ORDERED: FUROSEMIDE 40 MG/4 ML VIAL IV SCH (21:00)
[2020-03-15 07:47] LABS: Hematocrit (blood only) 38.5 % (42-52); Hemoglobin 12.5 g/dL (14.0-18.0); Mean Corpuscular Hemoglobin 31.8 pg (25-34); Mean Corpuscular Hgb Conc 32.5 g/dL (32-36); Mean Platelet Volume 9.6 fL (7.4-10.4); Platelet Count 255 K/uL (130-400); RDW Coefficient of Variation 13.8 % (11.5-14.5); RDW Standard Deviation 49.2 fL (36.4-46.3); Red Blood Count 3.93 M/uL (4.7-6.1); White Blood Count 6.08 K/uL (4.8-10.8)
[2020-03-15 08:25] LABS: BUN Creatinine Ratio 16.3 (10-20); Calcium 8.9 mg/dl (8.5-10.1); Creatinine Clr Calc Pharmacy 83.7 ml/min; Est GFR (African American) 88.9; Est GFR (Non-African American) 76.7; Potassium 4.1 mmol/L (3.5-5.1)
[2020-03-15] MEDS: FUROSEMIDE 40 MG in SYRINGE 0 ML IV SCH ×2 (08:29→16:37)
[2020-03-15] MEDS: FERROUS SULFATE 325 MG TAB PO SCH (08:29)
[2020-03-15] MEDS: predniSONE 20 MG TAB PO SCH (08:30)
[2020-03-15] MEDS: INSULIN ASPART 100 UNITS/ML 3 ML PEN SC SCH ×4 (08:30→20:45)
[2020-03-15] MEDS: POTASSIUM CHLORIDE 10 MEQ TABCR PO SCH (08:47)
--- NOTE | 2020-03-15 09:00 | Cardiology Consultation ---
Date of Consultation March 15, 2020 Assessment & Plan (1) Chronic respiratory failure with hypoxia and hypercapnia: (2) Pleural effusion: (3) Acute on chronic systolic heart failure: (4) COPD (chronic obstructive pulmonary disease): (5) Diabetes mellitus, type 2: (6) History of pacemaker: From a cardiac standpoint the patient is currently clinically stable. He seems to have gained the most benefit during this admission and his previous admission from thoracentesis. As mentioned in the pulmonary consult he may benefit from a long-term drain or VATS procedure. We will continue to follow him during his hospital admission. History of Present Illness Attending Physician: Lui Martinez MD History of Present Illness This is a 74-year-old male patient with a history of tobacco associated lung, heart and vascular disease. He has had several admissions to the hospital this past summer starting with a wound infection of his foot in January. He was adm itted with progressive shortness of breath and early February felt to be due to pneumonia/COPD along with heart failure due to systolic and diastolic dysfunction. He had thoracentesis performed during that admission which was bloody perhaps from anticoagulation. Additional cytology is pending. The patient has been readmitted once again with progressive shortness of breath. The pulmonary consult is appreciated. He underwent a thoracentesis yesterday again on the right side. It was discussed with the patient the possibility of leaving a long-term catheter until the fluid has completely resolved from his right chest cavity. The patient is considering this option. Outpatient Problem List: 1. Coronary artery disease, status post inferior wall myocardial infarction with severe multivessel coronary artery disease, deemed nonamenable to intervention. 2. Ischemic cardiomyopathy, EF 45% to 49%. 3. Paroxysmal atrial fibrillation, atrial flutter with tachy/melissa syndrome for which patient underwent dual chamber permanent pacemaker. 4. History of DVT and pulmonary embolism, on chronic Coumadin therapy. 5. Hyperlipidemia. 6. History of pericardial effusion, status post window and drainage. 7. History of vasovagal/cough/orthostatic syncope. 8. COPD. 9. Peripheral arterial disease. 10. History of tobacco abuse and severe COPD 11. Chronic kidney disease. Allergies Allergy/AdvReac Type Severity Reaction Status Date / Time albuterol Allergy Severe CHOKING Verified 03/14/20 16:06 SENSATION ipratropium Allergy Severe CHOKING Verified 03/14/20 16:06 SENSATION onion Allergy Intermediate RASH Verified 03/14/20 16:06 levofloxacin Allergy Mild other Verified 03/14/20 16:06 spironolactone AdvReac Severe Problems Unverified 03/14/20 16:10 with breathing atorvastatin AdvReac Intermediate Muscle Pain Verified 03/14/20 16:06 metformin AdvReac Intermediate Diarrhea Verified 03/14/20 16:06 Home Medications Home Medications Medication Instructions Recorded Confirmed Type Lantus Solostar U-100 Insulin 25 unit SUBCUT HS 04/11/18 03/14/20 History allopurinol [Zyloprim] 300 mg PO HS 04/11/18 03/14/20 History insulin aspart U-100 [Novolog 1 sliding scale dose SUBCUT AC 04/11/18 03/14/20 History PenFill U-100 Insulin] montelukast [Singulair] 10 mg PO HS 04/11/18 03/14/20 History nitroglycerin 0.4 mg SUBLINGUAL UD PRN 04/11/18 03/14/20 History primidone [Mysoline] 500 mg PO HS 04/11/18 03/14/20 History rosuvastatin [Crestor] 40 mg PO HS 04/11/18 03/14/20 History aspirin 325 mg PO HS 08/08/19 03/14/20 History metoprolol succinate 25 mg PO HS 08/08/19 03/14/20 History ferrous sulfate [iron] 325 mg PO Q OTHER DAY 01/09/20 03/14/20 History polyethylene glycol 3350 [Miralax] 17 g PO DAILY PRN #14 ea 01/28/20 03/14/20 Rx furosemide [Lasix] 40 mg PO BID #60 tab 02/29/20 03/14/20 Rx potassium chloride 10 meq PO DAILY #30 tab 02/29/20 03/14/20 Rx warfarin [Jantoven] 4 mg PO MOWEFR@209903/14/20 03/14/20 History warfarin [Jantoven] 6 mg PO SUTUTHSA@209903/14/20 03/14/20 History Patient History Medical History (Updated 03/16/20 @ 09:40 by Tim Pelayo MD) Acute on chronic combined systolic (congestive) and diastolic (congestive) heart failure Bronchiectasis Chronic kidney disease stage 3 Chronic left ventricular systolic heart failure Chronic respiratory failure with hypoxia and hypercapnia COPD (chronic obstructive pulmonary disease) Coronary artery disease "S/P inferior [place], severe multivessel disease not amenable to intervention" per 2012 cath Diabetes mellitus, type 2 IDDM GERD (gastroesophageal reflux disease) Gout Hearing deficit BL KOO History of CVA (cerebrovascular accident) "YEARS AGO" - reports he has had a tremor ever since stroke. denies additional residual effects History of depression History of DVT (deep vein thrombosis) "YEARS AGO" ETIOLOGY UNK - ON WARFARIN History of pancreatitis History of pulmonary embolism on group home coumadin History of tachycardia-bradycardia syndrome HLD (hyperlipidemia) Ischemic cardiomyopathy EF 45-49% Kidney stone MRSA infection Myocardial Infarction "YEARS AGO" Nephrolithiasis On home oxygen therapy 2 LPM DAILY PRN (secondary to chronic respiratory failure) Osteoarthritis PAD (peripheral artery disease) PAF (paroxysmal atrial fibrillation) DX "years ago" - ON COUMADIN - FOLLOWS W/ DR. ROYCE Rasmussen historian Seizure QUESTIONABLE- EEG 1 WEEK AGO FOR QUESTIONABLE SEIZURE (reported convulsions, loss of consciousness 1 week ago while watching TV) - [facility] - EEG unremarkable Tremor Surgical History H/O toe surgery "amputation left 3rd and 4th toe 03/2012" History of bronchoscopy History of cardiac cath MULTIPLE - NO STENTS [place] (could not recall dates - most recent in system is from 2011 [place]) History of cholecystectomy History of incision of pericardium pericardial window secondary to pericardial effusion History of pacemaker PLACED 10/2017 FOR TACHY-MELISSA SYNDROME - [employer] - LAST CHECKED 05/2019 History of tonsillectomy S/P cystoscopy with ureteral stent placement 07/25/2019 [facility] Status post creation of pericardial window Family History Mother Alzheimer disease Social History Smoking Status: Former smoker Tobacco Type: Cigarettes Cigarettes Per Day: 4-6 packs. 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 x 17 years Other Information That Helps Us Care for You: No Feels Safe at Home: Yes Safety Concerns: Feels Safe At This Time Review of Systems Review of Systems: All systems reviewed & are unremarkable except as noted in HPI & below Nothing additional to add Physical Exam Physical Exam: General: no acute distress and stated age Head: normocephalic, no masses, lesions, tenderness or abnormalities Eyes: conjunctiva are pink and non-injected, sclera clear Neck: supple, no adenopathy, no bruits, normal jugular venous pulse, no hepatojugular reflux Chest: normal shape and normal respiratory effort Lungs: Decreased breath sounds on the right. Cardiac Exam: - regular rate & rhythm, no murmurs gallops or rubs - normal S1, normal S2 Pulses: 2(+) throughout Abdomen: abdomen soft, non-tender, no abnormal masses and no hepatosplenomegaly Musculoskeletal: no gait disturbance, no joint inflammation, no deforming arthritis Extremities: no edema and no cyanosis Neuro: grossly normal exam Results & Data ([facility]) Vital Signs (Past 12 Hours) Vital Signs Temp Pulse Resp BP Pulse Ox 03/15/20 07:01 36.3 C L 74 18 122/49 L 98 03/15/20 04:17 36.7 C 73 18 104/55 L 97 03/15/20 00:03 36.7 C 86 18 121/73 93 Laboratory Results Current Inpatient Medications Laboratory Results - last 24 hr 03/14/20 03/14/20 03/14/20 15:27 15:27 15:27 WBC 6.57 RBC 3.96 L Hgb 12.0 L Hct 39.2 L MCV 99.0 MCH 30.3 MCHC 30.6 L RDW Std Deviation 50.3 H RDW Coeff of Lizet 13.9 Plt Count 268 MPV 9.5 Immature Gran % (Auto) 0.2 Neut % (Auto) 73.2 Lymph % (Auto) 11.7 [place] % (Auto) 12.0 Eos % (Auto) 2.4 Baso % (Auto) 0.5 Neut # (Auto) 4.81 Lymph # (Auto) 0.77 L [place] # (Auto) 0.79 H Eos # (Auto) 0.16 Baso # (Auto) 0.03 Immature Gran # (Auto) 0.01 PT 15.4 H INR 1.5 H APTT 38.6 H PTT Ratio 1.4 VBG pH VBG pCO2 VBG pO2 VBG HCO3 VBG O2 Saturation VBG Base Excess Barometric Pressure Sodium 135 L Potassium 3.7 Chloride 95 L Carbon Dioxide 33 H Anion Gap 7.0 BUN 15 Creatinine 1.14 Est Cr Clr Drug Dosing 71.5 Est GFR ( Amer) 74.1 Est GFR (Non-Af Amer) 63.9 BUN/Creatinine Ratio 13.2 Glucose 140 H POC Glucose Lactate Calcium 9.0 Magnesium 1.8 Total Bilirubin 0.5 AST 41 H ALT 22 Alkaline Phosphatase 199 H Troponin I < 0.015 NT-Pro-B Natriuret Pep 2126 H Total Protein 8.4 H Albumin 2.6 L Globulin 5.8 H Albumin/Globulin Ratio 0.4 L Fluid Neutrophils % Fluid Lymphocytes % Fluid Eosinophils % Fluid Basophils % Fluid Meso/Macro/[place] % Pleural Fluid Source Pleural Color Pleural Appearance Pleural pH Pleural WBC Pleural RBC Pleural Total Protein Pleural LDH Pleural Glucose Miscellaneous Test Miscellaneous Test 2 Miscellaneous Test 3 03/14/20 03/14/20 03/14/20 15:27 15:44 19:45 WBC RBC Hgb Hct MCV MCH MCHC RDW Std Deviation RDW Coeff of Lizet Plt Count MPV Immature Gran % (Auto) Neut % (Auto) Lymph % (Auto) [place] % (Auto) Eos % (Auto) Baso % (Auto) Neut # (Auto) Lymph # (Auto) [place] # (Auto) Eos # (Auto) Baso # (Auto) Immature Gran # (Auto) PT INR APTT PTT Ratio VBG pH 7.37 VBG pCO2 60 H VBG pO2 28 VBG HCO3 34 VBG O2 Saturation < 60.0 VBG Base Excess 7.0 Barometric Pressure 720.2 Sodium Potassium Chloride Carbon Dioxide Anion Gap BUN Creatinine Est Cr Clr Drug Dosing Est GFR ( Amer) Est GFR (Non-Af Amer) BUN/Creatinine Ratio Glucose POC Glucose Lactate 1.7 Calcium Magnesium Total Bilirubin AST ALT Alkaline Phosphatase Troponin I NT-Pro-B Natriuret Pep Total Protein Albumin Globulin Albumin/Globulin Ratio Fluid Neutrophils % 9 Fluid Lymphocytes % 66 Fluid Eosinophils % 10 Fluid Basophils % 0 Fluid Meso/Macro/[place] % 15 Pleural Fluid Source RIGHT LUNG Pleural Color RED Pleural Appearance TURBID Pleural pH Pleural WBC 1819 Pleural RBC [id number] Pleural Total Protein Pleural LDH Pleural Glucose Miscellaneous Test Miscellaneous Test 2 Miscellaneous Test 3 03/14/20 03/14/20 03/14/20 19:45 19:45 19:45 WBC RBC Hgb Hct MCV MCH MCHC RDW Std Deviation RDW Coeff of Lizet Plt Count MPV Immature Gran % (Auto) Neut % (Auto) Lymph % (Auto) [place] % (Auto) Eos % (Auto) Baso % (Auto) Neut # (Auto) Lymph # (Auto) [place] # (Auto) Eos # (Auto) Baso # (Auto) Immature Gran # (Auto) PT INR APTT PTT Ratio VBG pH VBG pCO2 VBG pO2 VBG HCO3 VBG O2 Saturation VBG Base Excess Barometric Pressure Sodium Potassium Chloride Carbon Dioxide Anion Gap BUN Creatinine Est Cr Clr Drug Dosing Est GFR ( Amer) Est GFR (Non-Af Amer) BUN/Creatinine Ratio Glucose POC Glucose Lactate Calcium Magnesium Total Bilirubin AST ALT Alkaline Phosphatase Troponin I NT-Pro-B Natriuret Pep Total Protein Albumin Globulin Albumin/Globulin Ratio Fluid Neutrophils % Fluid Lymphocytes % Fluid Eosinophils % Fluid Basophils % Fluid Meso/Macro/[place] % Pleural Fluid Source Pleural Color Pleural Appearance Pleural pH 7.44 H Pleural WBC Pleural RBC Pleural Total Protein Pleural LDH Pleural Glucose Miscellaneous Test Pending Miscellaneous Test 2 Pending Cancelled Miscellaneous Test 3 Pending 03/14/20 03/14/20 03/15/20 19:45 20:42 07:27 WBC RBC Hgb Hct MCV MCH MCHC RDW Std Deviation RDW Coeff of [place] Plt Count MPV Immature Gran % (Auto) Neut % (Auto) Lymph % (Auto) [place] % (Auto) Eos % (Auto) Baso % (Auto) Neut # (Auto) Lymph # (Auto) [place] # (Auto) Eos # (Auto) Baso # (Auto) Immature Gran # (Auto) PT INR APTT PTT Ratio VBG pH VBG pCO2 VBG pO2 VBG HCO3 VBG O2 Saturation VBG Base Excess Barometric Pressure Sodium Potassium Chloride Carbon Dioxide Anion Gap BUN Creatinine Est Cr Clr Drug Dosing Est GFR ( Amer) Est GFR (Non-Af Amer) BUN/Creatinine Ratio Glucose POC Glucose 146 H 158 H Lactate Calcium Magnesium Total Bilirubin AST ALT Alkaline Phosphatase Troponin I NT-Pro-B Natriuret Pep Total Protein Albumin Globulin Albumin/Globulin Ratio Fluid Neutrophils % Fluid Lymphocytes % Fluid Eosinophils % Fluid Basophils % Fluid [place] % Pleural Fluid Source Pleural Color Pleural Appearance Pleural pH Pleural WBC Pleural RBC Pleural Total Protein Pleural LDH Pleural Glucose Miscellaneous Test Miscellaneous Test 2 Miscellaneous Test 3 Cancelled 03/15/20 03/15/20 07:29 07:29 WBC 6.08 RBC 3.93 L Hgb 12.5 L Hct 38.5 L MCV 98.0 MCH 31.8 MCHC 32.5 RDW Std Deviation 49.2 H RDW Coeff of Lizet 13.8 Plt Count 255 MPV 9.6 Immature Gran % (Auto) Neut % (Auto) Lymph % (Auto) [place] % (Auto) Eos % (Auto) Baso % (Auto) Neut # (Auto) Lymph # (Auto) [place] # (Auto) Eos # (Auto) Baso # (Auto) Immature Gran # (Auto) PT INR APTT PTT Ratio VBG pH VBG pCO2 VBG pO2 VBG HCO3 VBG O2 Saturation VBG Base Excess Barometric Pressure Sodium 136 Potassium 4.1 Chloride 97 L Carbon Dioxide 33 H Anion Gap 6.0 BUN 16 Creatinine 0.98 Est Cr Clr Drug Dosing 83.7 Est GFR ( Amer) 88.9 Est GFR (Non-Af Amer) 76.7 BUN/Creatinine Ratio 16.3 Glucose 168 H POC Glucose Lactate Calcium 8.9 Magnesium Total Bilirubin AST ALT Alkaline Phosphatase Troponin I NT-Pro-B Natriuret Pep Total Protein Albumin Globulin Albumin/Globulin Ratio Fluid Neutrophils % Fluid Lymphocytes % Fluid Eosinophils % Fluid Basophils % Fluid [place] % Pleural Fluid Source Pleural Color Pleural Appearance Pleural pH Pleural WBC Pleural RBC Pleural Total Protein Pleural LDH Pleural Glucose Miscellaneous Test Miscellaneous Test 2 Miscellaneous Test 3 Medications Administered Current Inpatient Medications Acetaminophen (Acetaminophen 325 Mg Tab) 650 mg PO Q4H PRN PRN Reason: Pain or Fever Stop: 04/13/20 18:55 Allopurinol (Allopurinol 300 Mg Tab) 300 mg PO HS ANNA Stop: 04/13/20 20:59 Last Admin: 03/14/20 20:37 Dose: 300 mg Documented by: Dextrose (Dextrose 50% 50 Ml Syringe) 25 - 50 ml IV UD PRN; Protocol PRN Reason: Hypoglycemia Protocol Stop: 04/13/20 18:55 Ferrous Sulfate (Ferrous Sulfate 325 Mg Tab) 325 mg PO Q2D@0900 ANNA Stop: 04/14/20 08:59 Last Admin: 03/15/20 08:29 Dose: 325 mg Documented by: Glucagon (Glucagon For Inj 1 Mg Vial) 1 mg SQ UD PRN; Protocol PRN Reason: Hypoglycemia Protocol Stop: 04/13/20 18:55 Glucose (Glucose 10 Tabs/Tube) 4 - 8 tabs PO UD PRN; Protocol PRN Reason: Hypoglycemia Protocol Stop: 04/13/20 18:55 Glucose (Glucose 40% Gel 15 Gm Tube) 15 - 30 gm PO UD PRN; Protocol PRN Reason: Hypoglycemia Protocol Stop: 04/13/20 18:55 Furosemide 40 mg/ Syringe 4 mls @ 4 mls/min IV [id number] ANNA Stop: 04/13/20 20:59 Last Admin: 03/15/20 08:29 Dose: 4 mls/min Documented by: Insulin Aspart (Insulin Aspart 100 Units/Ml 3 Ml Pen) 0 units SC ACHS ANNA Stop: 04/13/20 20:59 Last Admin: 03/15/20 08:30 Dose: 2 units Documented by: Insulin Glargine (Insulin Glargine Solostar 100 Units/Ml 3 Ml Pen) 20 units SQ HS [facility] Stop: 04/13/20 20:59 Last Admin: 03/14/20 20:48 Dose: 20 units Documented by: Metoprolol Succinate (Metoprolol Succ 25mg Ext Rel Tab) 25 mg PO HS [facility] Stop: 04/13/20 20:59 Last Admin: 03/14/20 20:37 Dose: 25 mg Documented by: Miscellaneous (Carbohydrates For Hypoglycemia ) 15 - 30 gm PO UD PRN PRN Reason: Hypoglycemia Protocol Stop: 04/13/20 18:55 Montelukast Sodium (Montelukast Sodium 10 Mg Tablet) 10 mg PO HS [facility] Stop: 04/13/20 20:59 Last Admin: 03/14/20 20:38 Dose: 10 mg Documented by: Potassium Chloride (Potassium Chloride 10 Meq Tabcr) 10 meq PO DAILY [facility] Stop: 04/14/20 08:59 Last Admin: 03/15/20 08:47 Dose: 10 meq Documented by: Prednisone (Prednisone 20 Mg Tab) 40 mg PO DAILY [facility] Stop: 03/18/20 09:01 Last Admin: 03/15/20 08:30 Dose: 40 mg Documented by: Primidone (Primidone 250 Mg Tab) 500 mg PO HS ANNA Stop: 04/13/20 20:59 Last Admin: 03/14/20 20:37 Dose: 500 mg Documented by: Rosuvastatin Calcium (Rosuvastatin Calcium 20 Mg Tab) [address] [facility] Stop: 04/13/20 20:59 Last Admin: 03/14/20 20:37 Dose: 40 mg Documented by: (1) COPD (chronic obstructive pulmonary disease) COPD type: unspecified COPD Qualified Code(s): J44.9 - Chronic obstructive pulmonary disease, unspecified
--- NOTE | 2020-03-15 10:08 | Electrocardiogram Report ---
Test Reason : Blood Pressure : / mmHG Vent. Rate : 082 BPM Atrial Rate : 000 BPM P-R Int : 000 ms QRS Dur : 082 ms QT Int : 454 ms P-R-T Axes : 000 049 179 degrees QTc Int : 530 ms Poor data quality, interpretation may be adversely affected Possible Normal sinus rhythm with occasional Premature ventricular complexes Low voltage QRS Cannot rule out Inferior infarct , age undetermined Abnormal ECG When compared with ECG of 25-FEB-2020 19:22, Possible Inferior infarct , age undetermined ANterior RI not present PVC's are new Repeat tracing with better baseline Confirmed by Hossein Quintero ([id number]) on 03/15/2020 10:08:24 AM Referred By: REFERRED SELF Confirmed By:Hossein Quintero
--- NOTE | 2020-03-15 10:24 | Pulmonology Progress Note ---
Date of Service March 15, 2020 Assessment & Plan (1) Chronic respiratory failure with hypoxia and hypercapnia: Impression: 74-year-old male with chronic hypoxemic hypercarbic respiratory failure and reported history of COPD although I do not have PFTs available admitted with progressive hypoxemic respiratory failure and large likely left pleural effusion. Diagnostic and therapeutic thoracentesis yesterday revealed over 2 L of bloody pleural fluid. It is unclear if the patient may have had slow intrathoracic bleed associated with his prior procedure exacerbated by anticoagulation or if this represents a new/progressive pathologic process. Recommendations: 1. Pleural effusion: Mildly eosinophilic but mostly bloody effusion. Again differential as noted above. The blood appears old and not fresh. Continued pleural drainage is required. I discussed with the patient repeat thoracentesis versus placement of a pigtail catheter. He agrees to placement of a 14 [place] pigtail catheter which will be conducted. We will slowly drain pleural fluid as tolerated. Followed up daily x-rays. Await pleural fluid cytology and cultures. 2. Ideally the patient should undergo a CT scan of the chest however I will hold off for now until we have been able to drain some additional fluid to better interrogate the underlying pulmonary parenchyma. 3. Hypoxemic and hypercarbic respiratory failure: The patient is reasonably well compensated per currently. He may benefit from outpatient Trilogy but seems to be well compensated currently and doing well. Continue diuresis and management of his underlying heart failure per the primary admitting service. Discussed with admitting hospitalist at bedside as well as patient. (2) Pleural effusion: (3) Chronic left ventricular systolic heart failure: Admission and Anticipated Discharge Date Admission Date: March 14, 2020 Subjective Patient seen and examined. EMR reviewed. The patient states that he felt much better after drainage of a little over 2 L pleural fluid yesterday. He is able to sleep supine. He is not having any coughing or chest pain. No fevers chills night sweats. No significant shortness of breath. Review of Systems Review of Systems: All systems reviewed & are unremarkable except as noted in HPI & below Physical Exam Constitutional: WD/WN, vitals as above Neck: trachea midline, no thyromegaly Respiratory: + labored breathing Cardiovascular: RRR, no murmur, no edema Gastrointestinal (Abdomen): normal bowel sounds, soft, nontender, no hepatosplenomegaly Musculoskeletal: Extremities: extremities normal to inspection Skin: no rashes, warm and dry Lymphatic: no cervical lymphadenopathy Results & Data Results & Data ([facility]) Vital Signs (Past 12 Hours) Vital Signs Temp Pulse Pulse Resp BP Pulse Ox 03/15/20 08:20 70 03/15/20 07:01 36.3 C L 74 18 122/49 L 98 03/15/20 04:17 36.7 C 73 18 104/55 L 97 03/15/20 00:03 36.7 C 86 18 121/73 93 Laboratory Results 03/15/20 07:29 03/15/20 07:29 Pleural fluid studies: Cell count showed 9% neutrophils, 66% lymphocytes, 10% eosinophils, and 15% mesothelial cells Pleural pH 7.44 White blood cell count 1819 Red blood cell count 185,000 Diagnostic Findings Chest x-ray postthoracentesis was reviewed. It demonstrates better aeration of the right lung however there is a persistent moderate-sized pleural effusion present. PG Care Time/CCT Total # of Minutes Spent Total Time Spent with Patient: Total time spent is greater than 50% in coordi nation of care (as documented) at patient's floor/unit and/or counseling patient: Coding Level of Care Code 12777 Subseq Hosp Care Lvl 3 Diagnoses Chronic respiratory failure with hypoxia and hypercapnia J96.11; J96.12 Pleural effusion J90 Chronic left ventricular systolic heart failure I50.22
--- NOTE | 2020-03-15 10:28 | Procedure Note ---
Procedure Note Date of Service March 15, 2020 Procedure: Placement of 14 [place]uneian pigtail skater catheter in right pleural space Exterior Interior Specialist: Dr. Yohan Villanueva Indication: Pleural effusion Consent: Signed by patient and verified with timeout prior to procedure Anesthesia: 5 mL's 1% lidocaine without epinephrine local. Procedure: Consent was verified and timeout performed. Appropriate imaging studies were reviewed prior to the procedure. Patient was placed in a seated position and limited thoracic ultrasound was performed of the right chest. See separate imaging. A moderate sized pleural effusion was identified with positive lung flap sign. Site appropriate for catheter placement was selected. The skin was prepped and draped in normal sterile fashion. Lidocaine was used for local analgesia. Fluid was aspirated via the finder needle. A small skin ross was made with the scalpel and an 18-gauge needle was advanced over the rib into the pleural space. Bloody fluid was again aspirated. A wire was then passed through the needle into the pleural space and the needle removed. A dilator was used over the wire to dilate the tract. After the tract was dilated, a 14 [place]uneian skater pigtail catheter was advanced over the wire into the pleural space. The wire and straightening stylette were removed and the sutures made taut for the pigtail catheter and clamped. The tube was attached to gravity suction and approximately 1.5 L was drained. The patient complained of some mild chest discomfort at that point time and the tube was clamped. 2-0 silk sutures were used to secure the catheter at the exit site and a sterile dressing was applied. Follow-up chest x-ray is pending Fluid was not sent as studies are pending from yesterday The patient tolerated the procedure well without obvious complication. Discussed with bedside nurse. At this point time I think we unclamp the tube and allow gravity drainage every 4 hours for total of 1 L. We will follow-up chest x-ray in the morning. He may require converting the tube from gravity drainage to suction drainage but will see how he responds. There was a small air leak on the chest tube, likely due to entrainment of air with placement of the catheter. Coding CPT Codes Pulmonary/Thoracic - Pulmonary and Thoracic: 37719 Pleural drainage w/imaging ([id number][place] [facility] [place]) Pulmonary/Thoracic Procedure 1: Pulmonary and Thoracic: 79788 Pleural drainage w/imaging
--- NOTE | 2020-03-15 11:16 | XRay Report ---
XR chest 1V portable CLINICAL HISTORY: Right chest tube placement COMPARISON STUDY: 03/14/2020 FINDINGS: The heart remains enlarged. There is been interval insertion of a right basilar pigtail anne st tube catheter. There is interval decrease in the size of the right pleural effusion. There is a sm all right basilar pneumothorax. There is persistent blunting of the left lateral costophrenic angle. There are right lung airspace opacities. Left basilar opacities are likely atelectatic[. There is a l eft subclavian dual-chamber central venous pacemaker IMPRESSION: 1. Interval placement right-sided chest tube with interval decrease in the amount of right pleural fl uid 2. Small right basilar pneumothorax 3. Increasing right lung airspace opacities ACT 112: Negative or not required by law. Electronically signed by: Dillon Gaspar M.D. 03/15/2020 11:14 AM
--- NOTE | 2020-03-15 11:57 | Hospitalist Progress Note ---
Date of Service March 15, 2020 Assessment & Plan (1) Pleural effusion: (2) Acute on chronic systolic heart failure: Acute on Chronic respiratory failure with hypoxia and hypercapnia Present on admission with worsening SOB Recently discharged at [facility] 2 weeks ago. S/P thoracentesis done in the last admission where 1800 cc of transudate fluid removed . CXR on admission showed complete opacification of the right hemithorax consistent with a large pleural effusion and atelectasis of the right lung and evidence of pulmonary vascular congestion. ProBNP on admission 2125 Repeat CXR today interval placement right-sided chest tube with interval decrease in the amount of right pleural fluid. Small right basilar pneumothorax. Increasing right lung airspace opacities Received Lasix 40 mg IV in the ED pulmonary on board s/p thoracentesis on 03/13 where 2.2L bloody fluid removed Pleural catheter placed today by Rich to allow additional drainage cardiology on board Pt discontinued the spironolactone because he felt it caused more SOB Continue Lasix IV 40mg IV daily Monitor I/O Plan to get CT chest once fluid improves Will repeat CXR in am Will put on fluid restriction History of paroxysmal atrial fibrillation S/P pacemaker Rate control with Toprol Coumadin on hold due to recent pleural catheter tube placement Will hold it for now since the pleural catheter is draining bloody fluid INR 1.5 today History of pulmonary embolism. INR 1.5 today Continue to hold coumadin see above explanation History of lower extremity wound Diabetic L heel ulcer MRSA infection in last admission Follow up with the wound care clinic Stable Chronic obstructive pulmonary disease Does not seems to have COPD exacerbation Pt said that he cannot tolerate any inhaler because it caused him to cough and pass out sometimes Pt cannot tolerate neb treatment Coronary artery disease Continue on aspirin, statin and metoprolol. Insulin-dependent diabetes Most recent Hba1c 5.9 Continue lantus and novolog sliding scale Continue to monitor BS Chronic kidney disease stage III. Creatinine stable Continue monitor BMP while on IV lasix Deep venous thrombosis prophylaxis. Coumadin on hold due to recent pleural catheter placement (bloody fluid drainage) Will padd on SCD CODE STATUS FULL CODE Admission and Anticipated Discharge Date Admission Date: March 14, 2020 Subjective Pt was seen and examined Sitting in bed with no distress eating lunch Pt said that his breathing slightly improved today after the thoracentesis last night He said that he has tenderness since they put the catheter in the right pleural area Right pleural catheter is draining bloody fluid Denies any chest pain, palpitation, dizziness and fever Physical Exam Physical Exam: General- No acute distress Head- atraumatic Eyes- PERRL, EOMI, ENT- oropharynx clear Neck- supple, no JVD Lungs- +diminished breath sound at the base Heart- regular rhythm; no murmur Abdomen- normal bowel sounds, soft, nontender Extremities- no calf tenderness, right LE skin ulcer due to venous ulcer, +edema Neuro- alert, oriented x 3; PERRL, EOMI; no facial palsy; no dysarthria Skin- warm & dry Results & Data Results & Data ([facility]) Vital Signs (Past 12 Hours) Vital Signs Temp Pulse Pulse Resp BP Pulse Ox 03/15/20 08:20 70 03/15/20 07:01 36.3 C L 74 18 122/49 L 98 03/15/20 04:17 36.7 C 73 18 104/55 L 97 03/15/20 00:03 36.7 C 86 18 121/73 93
[2020-03-15] MEDS ORDERED: TRAMADOL HCL 50 MG TABLET PO PRN (17:46)
[2020-03-15] MEDS: cefTRIAXone SODIUM 2,000 MG in DEXTROSE 5% 50 ML IV SCH (18:03)
[2020-03-15] MEDS ORDERED: ONDANSETRON INJ 2 MG/ML 2 ML VIAL IV PRN (18:09)
[2020-03-15] MEDS ORDERED: ACETAMINOPHEN 1000 MG/100 ML IV IV PRN (18:33)
[2020-03-15] MEDS: METOPROLOL SUCC 25MG EXT REL TAB PO SCH (19:55)
[2020-03-15] MEDS: ROSUVASTATIN CALCIUM 20 MG TAB PO SCH (19:55)
[2020-03-15] MEDS: allopurinoL 300 MG TAB PO SCH (19:55)
[2020-03-15] MEDS: MONTELUKAST SODIUM 10 MG TABLET PO SCH (19:55)
[2020-03-15] MEDS: PRIMIDONE 250 MG TAB PO SCH (19:55)
[2020-03-15] MEDS: INSULIN GLARGINE SOLOSTAR 100 UNITS/ML 3 ML PEN SQ SCH (20:44)
[2020-03-16 06:04] LABS: Hematocrit (blood only) 37.8 % (42-52); Hemoglobin 11.7 g/dL (14.0-18.0); Mean Corpuscular Hemoglobin 29.7 pg (25-34); Mean Corpuscular Volume 95.9 fL (80-100); Mean Platelet Volume 9.8 fL (7.4-10.4); Platelet Count 250 K/uL (130-400); RDW Coefficient of Variation 13.7 % (11.5-14.5); RDW Standard Deviation 48.9 fL (36.4-46.3); Red Blood Count 3.94 M/uL (4.7-6.1)
[2020-03-16 06:11] LABS: INR 1.3 (0.9-1.1); Prothrombin Time 13.7 Seconds (9.0-12.0)
[2020-03-16 06:37] LABS: BUN Creatinine Ratio 18.8 (10-20); Calcium 8.7 mg/dl (8.5-10.1); Creatinine Clr Calc Pharmacy 67.9 ml/min; Est GFR (African American) 69.6; Est GFR (Non-African American) 60.1; Potassium 3.4 mmol/L (3.5-5.1)
[2020-03-16] MEDS ORDERED: KETOROLAC TROMETHAMINE 15 MG/ML VIAL IV ONE (06:37)
[2020-03-16] MEDS ORDERED: TRAMADOL HCL 50 MG TABLET PO PRN (06:38)
[2020-03-16] MEDS ORDERED: PROMETHAZINE HCL 12.5 MG in SODIUM CHLORIDE 0.9% 50 ML IV PRN (06:39)
--- NOTE | 2020-03-16 08:19 | XRay Report ---
XR chest 1V portable CLINICAL HISTORY: pleural effusion COMPARISON STUDY: Chest radiograph March 15, 2020. FINDINGS: Right basilar pleural pigtail catheter remains in place. The right basilar pneumothorax luis wn on prior exam has decreased in size. Interstitial thickening within the right lung has slightly de creased. There is trace right pleural effusion. Mild left basilar opacity favors atelectasis. Dual le ad left subclavian pacemaker is in place. Cardiomediastinal silhouette is stable. IMPRESSION: 1. Right basilar pleural catheter in place. Interval decrease in the right basilar pneumothorax. 2. Interval decrease in right lung interstitial thickening. Trace right pleural effusion. 3. Trace left pleural effusion. ACT 112: Negative or not required by law. Electronically signed by: Supa Bassett M.D. 03/16/2020 8:17 AM
[2020-03-16] MEDS: FUROSEMIDE 40 MG in SYRINGE 0 ML IV SCH ×2 (09:00→17:50)
[2020-03-16] MEDS: predniSONE 20 MG TAB PO SCH (09:00)
[2020-03-16] MEDS: cefTRIAXone SODIUM 2,000 MG in DEXTROSE 5% 50 ML IV SCH (09:03)
[2020-03-16] MEDS: POTASSIUM CHLORIDE 10 MEQ TABCR PO SCH (09:03)
[2020-03-16] MEDS: LIDOCAINE 5% 1 PATCH TD SCH (09:05)
[2020-03-16] MEDS: INSULIN ASPART 100 UNITS/ML 3 ML PEN SC SCH ×4 (09:05→20:22)
--- NOTE | 2020-03-16 09:43 | Pulmonology Progress Note ---
Date of Service March 16, 2020 Assessment & Plan (1) Pleural effusion: 74-year-old male with a past medical history of reduced systolic function EF of 45 to 50%, moderate aortic sclerosis and left atrial enlargement, reported COPD, obesity and recurrent left pleural effusion who underwent chest tube placement over the weekend yielded 2 L of bloody appearing fluid. Patient feels substantially better after chest tube placement. Etiology of the serosanguineous effusion at this point is unclear. Repeat cytology is pending. Cytology from initial thoracentesis on the was negative. At that time, the fluid did not appear transudate of. Possible etiology includes traumatic thoracentesis on initial procedure which was made worse given that the patient is on anticoagulation. Continue to hold anticoagulation for today. I have asked that the nurse placed the patient on -20 cm H2O to suction. I have also asked that they flush the chest tube. If there is no further drainage, we will obtain a CT of his chest. (2) History of DVT (deep vein thrombosis): (3) Chronic respiratory failure with hypoxia and hypercapnia: (4) COPD (chronic obstructive pulmonary disease): COPD type: unspecified COPD Qualified Code(s): J44.9 - Chronic obstructive pulmonary disease, unspecified (5) Acute on chronic combined systolic (congestive) and diastolic (congestive) heart failure: Admission and Anticipated Discharge Date Admission Date: March 14, 2020 Subjective Patient describes his shortness of breath has substantially improved. He is able to eat this morning without feeling short of breath. He is having some chest pain around the chest tube insertion site. Drainage overnight has been minimal. The chest tube remains to gravity. Review of Systems Review of Systems: 04/29 point ROS negative unless specified elsewhere Physical Exam Constitutional: WD/WN, vitals as above Neck: trachea midline, no thyromegaly Respiratory: normal respiratory effort; no cough Auscultation: no wheezes Cardiovascular: RRR, no murmur, no edema Gastrointestinal (Abdomen): normal bowel sounds, soft, nontender, no hepatosplenomegaly Musculoskeletal: Extremities: extremities normal to inspection Skin: no rashes, warm and dry Lymphatic: no cervical lymphadenopathy Results & Data Results & Data ([facility]) Vital Signs (Past 12 Hours) Vital Signs Temp Pulse Resp BP BP Pulse Ox 03/16/20 07:58 98.1 F 75 18 100/55 L 98 03/16/20 04:00 97.5 F L 65 18 104/56 L 99 03/16/20 00:24 97.7 F 66 17 109/55 L 99 I reviewed vital signs, labs and chest imaging PG Care Time/CCT Total # of Minutes Spent Total Time Spent with Patient: Total time spent is greater than 50% in coordination of care (as documented) at patient's floor/unit and/or counseling patient: Coding Level of Care Code 65568 Subseq Hosp Care Lvl 3 Diagnoses Pleural effusion J90 History of DVT (deep vein thrombosis) Z86.718 Chronic respiratory failure with hypoxia and hypercapnia J96.11; J96.12 COPD (chronic obstructive pulmonary disease) J44.9 COPD type: unspecified COPD Acute on chronic combined systolic (congestive) and diastolic (congestive) heart failure I50.43
--- NOTE | 2020-03-16 11:37 | Cardiology Progress Note ---
Date of Service March 16, 2020 Assessment & Plan (1) Chronic respiratory failure with hypoxia and hypercapnia: (2) Pleural effusion: (3) Acute on chronic systolic heart failure: (4) COPD (chronic obstructive pulmonary disease): (5) Diabetes mellitus, type 2: (6) History of pacemaker: The patient feels better after the chest tube placement. I would continue his loop diuretic and hold the spironolactone. Admission and Anticipated Discharge Date Admission Date: March 14, 2020 Subjective No complaints feels better after chest tube placement Review of Systems Review of Systems: All systems reviewed & are unremarkable except as noted in HPI & below Nothing additional to add Physical Exam Physical Exam: General: no acute distress and stated age Head: normocephalic, no masses, lesions, tenderness or abnormalities Eyes: conjunctiva are pink and non-injected, sclera clear Neck: supple, no adenopathy, no bruits, normal jugular venous pulse, no hepatojugular reflux Chest: normal shape and normal respiratory effort, chest tube in place on the right Lungs: clear to auscultation and percussion Cardiac Exam: - regular rate & rhythm, no murmurs gallops or rubs - normal S1, normal S2 Pulses: 2(+) throughout Abdomen: abdomen soft, non-tender, no abnormal masses and no hepatosplenomegaly Musculoskeletal: no gait disturbance, no joint inflammation, no deforming arthritis Extremities: no edema and no cyanosis Neuro: grossly normal exam Results & Data ([facility]) Vital Signs (Past 12 Hours) Vital Signs Temp Pulse Resp BP BP Pulse Ox 03/16/20 07:58 36.7 C 75 18 100/55 L 98 03/16/20 04:00 36.4 C L 65 18 104/56 L 99 03/16/20 00:24 36.5 C 66 17 109/55 L 99 Laboratory Results Laboratory Results - last 24 hr 03/14/20 03/15/20 03/15/20 15:44 11:34 16:08 WBC RBC Hgb Hct MCV MCH MCHC RDW Std Deviation RDW Coeff of Lizet Plt Count MPV PT INR Sodium Potassium Chloride Carbon Dioxide Anion Gap BUN Creatinine Est Cr Clr Drug Dosing Est GFR ( Amer) Est GFR (Non-Af Amer) BUN/Creatinine Ratio Glucose POC Glucose 177 H 235 H Calcium Bld Cult Staph aureus PCR Negative Blood Culture MRSA PCR Negative 03/15/20 03/16/20 03/16/20 20:15 05:46 05:46 WBC 6.80 RBC 3.94 L Hgb 11.7 L Hct 37.8 L MCV 95.9 MCH 29.7 MCHC 31.0 L RDW Std Deviation 48.9 H RDW Coeff of Lizet 13.7 Plt Count 250 MPV 9.8 PT 13.7 H INR 1.3 H Sodium Potassium Chloride Carbon Dioxide Anion Gap BUN Creatinine Est Cr Clr Drug Dosing Est GFR ( Amer) Est GFR (Non-Af Amer) BUN/Creatinine Ratio Glucose POC Glucose 205 H Calcium Bld Cult Staph aureus PCR Blood Culture MRSA PCR 03/16/20 03/16/20 03/16/20 05:46 07:17 11:22 WBC RBC Hgb Hct MCV MCH MCHC RDW Std Deviation RDW Coeff of Lizet Plt Count MPV PT INR Sodium 137 Potassium 3.4 L D Chloride 96 L Carbon Dioxide 35 H Anion Gap 5.0 BUN 23 H Creatinine 1.20 Est Cr Clr Drug Dosing 67.9 Est GFR ( Amer) 69.6 Est GFR (Non-Af Amer) 60.1 BUN/Creatinine Ratio 18.8 Glucose 119 H POC Glucose 124 H 198 H Calcium 8.7 Bld Cult Staph aureus PCR Blood Culture MRSA PCR Medications Administered Current Inpatient Medications Acetaminophen (Acetaminophen 325 Mg Tab) 650 mg PO Q4H PRN PRN Reason: Pain or Fever Stop: 04/13/20 18:55 Acetaminophen (Acetaminophen 1000 Mg/100 Ml Iv) 1,000 mg IV ONE PRN PRN Reason: pain Stop: 03/18/20 18:32 Last Admin: 03/15/20 20:08 Dose: 1,000 mg Documented by: Allopurinol (Allopurinol 300 Mg Tab) 300 mg PO HS ANNA Stop: 04/13/20 20:59 Last Admin: 03/15/20 19:55 Dose: 300 mg Documented by: Dextrose (Dextrose 50% 50 Ml Syringe) 25 - 50 ml IV UD PRN; Protocol PRN Reason: Hypoglycemia Protocol Stop: 04/13/20 18:55 Ferrous Sulfate (Ferrous Sulfate 325 Mg Tab) 325 mg PO Q2D@0900 ANNA Stop: 04/14/20 08:59 Last Admin: 03/15/20 08:29 Dose: 325 mg Documented by: Glucagon (Glucagon For Inj 1 Mg Vial) 1 mg SQ UD PRN; Protocol PRN Reason: Hypoglycemia Protocol Stop: 04/13/20 18:55 Glucose (Glucose 10 Tabs/Tube) 4 - 8 tabs PO UD PRN; Protocol PRN Reason: Hypoglycemia Protocol Stop: 04/13/20 18:55 Glucose (Glucose 40% Gel 15 Gm Tube) 15 - 30 gm PO UD PRN; Protocol PRN Reason: Hypoglycemia Protocol Stop: 04/13/20 18:55 Furosemide 40 mg/ Syringe 4 mls @ 4 mls/min IV [id number] [facility] Stop: 04/13/20 20:59 Last Admin: 03/16/20 09:00 Dose: 4 mls/min Documented by: Ceftriaxone Sodium 2,000 mg/ (Dextrose) 70 mls @ 100 mls/hr IV DAILY [facility]; Protocol Stop: 03/29/20 17:59 Last Admin: 03/16/20 09:03 Dose: 100 mls/hr Documented by: Promethazine HCl 12.5 mg/ (Sodium Chloride) 50.5 mls @ 202 mls/hr IV Q6H PRN PRN Reason: Nausea And Vomiting Stop: 04/15/20 06:38 Insulin Aspart (Insulin Aspart 100 Units/Ml 3 Ml Pen) 0 units SC ACHS [facility] Stop: 04/13/20 20:59 Last Admin: 03/16/20 09:05 Dose: 2 units Documented by: Insulin Glargine (Insulin Glargine Solostar 100 Units/Ml 3 Ml Pen) 20 units SQ HS [facility] Stop: 04/13/20 20:59 Last Admin: 03/15/20 20:44 Dose: 20 units Documented by: Lidocaine (Lidocaine 5% 1 Patch) 1 patch TD QAM [facility] Stop: 04/15/20 06:39 Last Admin: 03/16/20 09:05 Dose: Not Given Documented by: Metoprolol Succinate (Metoprolol Succ 25mg Ext Rel Tab) 25 mg PO HS [facility] Stop: 04/13/20 20:59 Last Admin: 03/15/20 19:55 Dose: 25 mg Documented by: Miscellaneous (Carbohydrates For Hypoglycemia ) 15 - 30 gm PO UD PRN PRN Reason: Hypoglycemia Protocol Stop: 04/13/20 18:55 Miscellaneous (Remove Lidoderm Patch) 1 ea N/A DAILY@2100 [facility] Stop: 04/15/20 20:59 Montelukast Sodium (Montelukast Sodium 10 Mg Tablet) 10 mg PO HS ANNA Stop: 04/13/20 20:59 Last Admin: 03/15/20 19:55 Dose: 10 mg Documented by: Ondansetron HCl (Ondansetron Inj 2 Mg/Ml 2 Ml Vial) 4 mg IV Q8H PRN PRN Reason: Nausea Stop: 04/14/20 18:08 Last Admin: 03/15/20 18:26 Dose: 4 mg Documented by: Potassium Chloride (Potassium Chloride 10 Meq Tabcr) 10 meq PO DAILY ANNA Stop: 04/14/20 08:59 Last Admin: 03/16/20 09:03 Dose: 10 meq Documented by: Prednisone (Prednisone 20 Mg Tab) 40 mg PO DAILY ANNA Stop: 03/18/20 09:01 Last Admin: 03/16/20 09:00 Dose: 40 mg Documented by: Primidone (Primidone 250 Mg Tab) 500 mg PO HS ANNA Stop: 04/13/20 20:59 Last Admin: 03/15/20 19:55 Dose: 500 mg Documented by: Rosuvastatin Calcium (Rosuvastatin Calcium 20 Mg Tab) 40 mg PO HS ANNA Stop: 04/13/20 20:59 Last Admin: 03/15/20 19:55 Dose: 40 mg Documented by: Tramadol HCl (Tramadol Hcl 50 Mg Tablet) 25 mg PO Q4H PRN PRN Reason: Pain Stop: 04/15/20 06:37 (1) COPD (chronic obstructive pulmonary disease) COPD type: unspecified COPD Qualified Code(s): J44.9 - Chronic obstructive pulmonary disease, unspecified
--- NOTE | 2020-03-16 13:11 | Hospitalist Progress Note ---
Date of Service March 16, 2020 Assessment & Plan (1) Pleural effusion: (2) Acute on chronic systolic heart failure: Acute on Chronic respiratory failure with hypoxia and hypercapnia Present on admission with worsening SOB Recently discharged at [facility] 2 weeks ago. S/P thoracentesis done in the last admission where 1800 cc of transudate fluid removed . CXR on admission showed complete opacification of the right hemithorax consistent with a large pleural effusion and atelectasis of the right lung and evidence of pulmonary vascular congestion. ProBNP on admission 2125 Repeat CXR today showed right basilar pleural catheter in place. Interval decrease in the right basilar pneumothorax. Interval decrease in right lung interstitial thickening. Trace right pleural effusion. Received Lasix 40 mg IV in the ED pulmonary on board s/p thoracentesis on 03/13 where 2.2L bloody fluid removed S/P Pleural catheter placement on 03/[address] Villanueva to allow additional drainage cardiology on board Pt discontinued the spironolactone because he felt it caused more SOB Continue Lasix IV 40mg IV daily Plan to get CT chest once fluid improves Continue fluid restriction 2L daily Continue Monitor I/O Positive Blood cx Blood cx grew coag negative staph not lugdunensis Mostly contamination Continue Rocephin for now Repeat blood cx pening Continue monitor History of paroxysmal atrial fibrillation S/P pacemaker Rate control with Toprol Coumadin on hold due to recent pleural catheter tube placement Will continue to hold coumadin for now since the pleural catheter is draining bloody fluid INR 1.3 today History of pulmonary embolism. INR 1.3 today Continue to hold coumadin see above explanation History of lower extremity wound Diabetic L heel ulcer MRSA infection in last admission Follow up with the wound care clinic Stable Chronic obstructive pulmonary disease Does not seems to have COPD exacerbation Pt said that he cannot tolerate any inhaler because it caused him to cough and pass out sometimes Pt cannot tolerate neb treatment Hypokalemia Potassium 3.4 today Will replace K Continue monitor BMP Coronary artery disease Continue on aspirin, statin and metoprolol. Insulin-dependent diabetes Most recent Hba1c 5.9 Continue lantus and novolog sliding scale Continue to monitor BS Chronic kidney disease stage III. Creatinine stable Continue monitor BMP while on IV lasix Deep venous thrombosis prophylaxis. Coumadin on hold due to recent pleural catheter placement (bloody fluid drainage) on [facility] CODE STATUS FULL CODE Admission and Anticipated Discharge Date Admission Date: March 14, 2020 Subjective Pt was seen and examined Sitting at the edge of the bed eating lunch with no distress Pt said that his breathing feels much better He said that his pain control Denies any chest pain, palpitation, dizziness and SOB Physical Exam Physical Exam: General- No acute distress Head- atraumatic Eyes- PERRL, EOMI, ENT- oropharynx clear Neck- supple, no JVD Lungs- +diminished breath sound at the base Heart- regular rhythm; no murmur Abdomen- normal bowel sounds, soft, nontender Extremities- no calf tenderness, right LE skin ulcer due to venous ulcer, +edema Neuro- alert, oriented x 3; PERRL, EOMI; no facial palsy; no dysarthria Skin- warm & dry Results & Data Results & Data ([facility]) Vital Signs (Past 12 Hours) Vital Signs Temp Pulse Resp BP BP Pulse Ox 03/16/20 12:08 36.6 C 74 19 92/46 L 97 03/16/20 07:58 36.7 C 75 18 100/55 L 98 03/16/20 04:00 36.4 C L 65 18 104/56 L 99
[2020-03-16] MEDS ORDERED: POTASSIUM CHLORIDE 20 MEQ TABCR PO STA (13:29)
[2020-03-16] MEDS: allopurinoL 300 MG TAB PO SCH (19:36)
[2020-03-16] MEDS: MONTELUKAST SODIUM 10 MG TABLET PO SCH (19:36)
[2020-03-16] MEDS: METOPROLOL SUCC 25MG EXT REL TAB PO SCH (19:37)
[2020-03-16] MEDS: ROSUVASTATIN CALCIUM 20 MG TAB PO SCH (19:37)
[2020-03-16] MEDS: PRIMIDONE 250 MG TAB PO SCH (19:37)
[2020-03-16] MEDS: INSULIN GLARGINE SOLOSTAR 100 UNITS/ML 3 ML PEN SQ SCH (20:23)
[2020-03-17 06:44] LABS: Hematocrit (blood only) 37.4 % (42-52); Hemoglobin 11.7 g/dL (14.0-18.0); Mean Corpuscular Hemoglobin 30.8 pg (25-34); Mean Corpuscular Hgb Conc 31.3 g/dL (32-36); Mean Corpuscular Volume 98.4 fL (80-100); Mean Platelet Volume 9.5 fL (7.4-10.4); Platelet Count 223 K/uL (130-400); RDW Coefficient of Variation 13.8 % (11.5-14.5); RDW Standard Deviation 49.5 fL (36.4-46.3); White Blood Count 6.92 K/uL (4.8-10.8)
[2020-03-17 06:51] LABS: INR 1.1 (0.9-1.1)
[2020-03-17 07:06] LABS: BUN Creatinine Ratio 24.2 (10-20); Calcium 9.1 mg/dl (8.5-10.1); Creatinine Clr Calc Pharmacy 72.5 ml/min; Est GFR (African American) 74.8; Est GFR (Non-African American) 64.6; Potassium 3.5 mmol/L (3.5-5.1)
--- NOTE | 2020-03-17 07:36 | XRay Report ---
XR chest 1V portable CLINICAL HISTORY: pleural effusion COMPARISON STUDY: Chest radiograph March 16, 2020. FINDINGS: Dual-lead left subclavian pacemaker and right basilar pleural catheter remains in place. Th e previously identified right basilar pneumothorax is less conspicuous on this examination. A small r ight pleural effusion is noted. Lung volumes are diminished. This remains unchanged. There are persis tent bibasilar opacities. Note is made of vascular congestion with suspected mild pulmonary edema. IMPRESSION: 1. Right basilar pleural catheter in place. Right basilar pneumothorax no longer identified. 2. Low lung volumes with bibasilar opacities and small bilateral pleural effusions. 3. Pulmonary vascular congestion with suspected mild pulmonary edema. ACT 112: Negative or not required by law. Electronically signed by: Supa Bassett M.D. 03/17/2020 7:35 AM
[2020-03-17] MEDS ORDERED: POTASSIUM CHLORIDE 20 MEQ TABCR PO STA (07:45)
[2020-03-17] MEDS: predniSONE 20 MG TAB PO SCH (08:02)
[2020-03-17] MEDS: FUROSEMIDE 40 MG in SYRINGE 0 ML IV SCH (08:02)
[2020-03-17] MEDS: FERROUS SULFATE 325 MG TAB PO SCH (08:03)
[2020-03-17] MEDS: LIDOCAINE 5% 1 PATCH TD SCH (08:03)
[2020-03-17] MEDS: POTASSIUM CHLORIDE 10 MEQ TABCR PO SCH (08:07)
[2020-03-17] MEDS: cefTRIAXone SODIUM 2,000 MG in DEXTROSE 5% 50 ML IV SCH (08:07)
[2020-03-17] MEDS: INSULIN ASPART 100 UNITS/ML 3 ML PEN SC SCH ×4 (08:08→21:09)
--- NOTE | 2020-03-17 08:28 | Pulmonology Progress Note ---
Date of Service March 17, 2020 Assessment & Plan (1) Pleural effusion: 74-year-old male with a past medical history of reduced systolic function EF of 45 to 50%, moderate aortic sclerosis and left atrial enlargement, reported COPD, obesity and recurrent left pleural effusion who underwent chest tube placement over the weekend yielded 2 L of bloody appearing fluid. Minimal drainage overnight. Chest tube removed this am. CXR reviewed with bibasilar atelectasis. Ptx resolved. CT chest ordreed to eval paranchymal abnormalities. Cyto pending. CHF management per primary team. Would likely benefit from PAP therapy as outpatient. Consider sleep study as outpatient. (2) History of DVT (deep vein thrombosis): (3) Chronic respiratory failure with hypoxia and hypercapnia: (4) COPD (chronic obstructive pulmonary disease): COPD type: unspecified COPD Qualified Code(s): J44.9 - Chronic obstructive pulmonary disease, unspecified (5) Acute on chronic combined systolic (congestive) and diastolic (congestive) heart failure: Admission and Anticipated Discharge Date Admission Date: March 14, 2020 Subjective Patient slept much better last night. Minimal chest pain. No fevers or shortness of breath. Review of Systems Review of Systems: All systems reviewed & are unremarkable except as noted in HPI & below Physical Exam Constitutional: WD/WN, vitals as above Neck: trachea midline, no thyromegaly Respiratory: normal respiratory effort; no cough Auscultation: no wheezes Cardiovascular: RRR, no murmur, no edema Gastrointestinal (Abdomen): normal bowel sounds, soft, nontender, no hepato splenomegaly Musculoskeletal: Extremities: extremities normal to inspection Skin: no rashes, warm and dry Lymphatic: no cervical lymphadenopathy Results & Data Results & Data ([facility]) Vital Signs (Past 12 Hours) Vital Signs Temp Pulse Resp BP BP Pulse Ox 03/17/20 07:57 97.7 F 66 18 95/52 L 99 03/17/20 03:15 98.4 F 68 19 116/63 96 03/16/20 23:57 98.2 F 67 19 114/65 99 Vital signs and labs reviewed PG Care Time/CCT Total # of Minutes Spent Total Time Spent with Patient: Total time spent is greater than 50% in coordination of care (as documented) at patient's floor/unit and/or counseling patient: Coding Level of Care Code 42722 Subseq Hosp Care Lvl 3 Diagnoses Pleural effusion J90 History of DVT (deep vein thrombosis) Z86.718 Chronic respiratory failure with hypoxia and hypercapnia J96.11; J96.12 COPD (chronic obstructive pulmonary disease) J44.9 COPD type: unspecified COPD Acute on chronic combined systolic (congestive) and diastolic (congestive) heart failure I50.43
--- NOTE | 2020-03-17 09:21 | CT Scan Report ---
CT OF THE CHEST WITHOUT IV CONTRAST CLINICAL HISTORY: s/p chest tube removal COMPARISON STUDY: Chest radiograph performed earlier today and chest CT October 08, 2014. CT DOSE: 677.81 mGy.cm TECHNIQUE: Axial images of the chest were obtained without IV contrast. Images were reviewed in the axial, sagittal, and coronal planes. IV contrast was not administered for this examination. Automat ed exposure control was utilized for the study. A dose lowering technique was utilized adhering to t he principles of ALARA. FINDINGS: Right basilar pleural catheter has been removed. There is a dual-lead left subclavian pace maker. Moderate cardiomegaly is noted. There is no pericardial effusion. There is extensive coronary artery calcification. A small basilar right hydropneumothorax is noted. Extensive secretions within t he right lower lobe bronchus is noted as well as segmental bronchi to the right middle and right lowe r lobes. Right middle and right lower lobe airspace opacity is noted with volume loss. Mild groundgla ss opacities within the right upper lobe are noted. There is mild interlobular septal thickening. Mul tiple pulmonary nodules are unchanged since chest CT of May 06, 2014. The largest is a 1.2 cm rig ht upper lobe nodule on image 62 of 286. Note is made of moderate to severe bronchiectasis within the left lower lobe with multifocal mucus plugging. Multiple mildly enlarged mediastinal and bilateral h ilar lymph nodes are similar to prior chest CT. Several these are partially calcified. Multiple old b ilateral rib fractures are noted. Gallbladder is surgically absent. IMPRESSION: 1. Small right basilar hydropneumothorax following pleural catheter removal. Mild right pleural thick ening which may assessed on follow-up chest CT. 2. Moderate right lower lobe and right middle lobe airspace opacity. This could reflect consolidation or atelectasis. A neoplastic process is considered less likely however a follow-up chest CT in 3 mon ths is recommended. 3. No change in mediastinal and lateral hilar lymphadenopathy from prior chest CT. This suggest a gra nulomatous process. No change in multiple pulmonary nodules which are likely benign given stability. 4. Extensive left lower lobe bronchiectasis with multifocal mucus plugging. Extensive secretions with in right lower lobe bronchi. 5. Findings suggestive of mild pulmonary edema. ACT 112: Negative or not required by law. Electronically signed by: Supa Bassett M.D. 03/17/2020 9:20 AM
--- NOTE | 2020-03-17 11:39 | Cardiology Progress Note ---
Date of Service March 17, 2020 Assessment & Plan (1) Chronic respiratory failure with hypoxia and hypercapnia: (2) Pleural effusion: (3) Acute on chronic systolic heart failure: (4) COPD (chronic obstructive pulmonary disease): (5) Diabetes mellitus, type 2: (6) History of pacemaker: The patient's chest tube was taken out today by pulmonary. Cytology is still pending on the pleural fluid. Patient has no complaints. I agree with additional diuretics as needed. Admission and Anticipated Discharge Date Admission Date: March 14, 2020 Subjective Patient has no new complaints today. Review of Systems Review of Systems: All systems reviewed & are unremarkable except as noted in HPI & below Nothing additional to add. Physical Exam Physical Exam: General: no acute distress and stated age Head: normocephalic, no masses, lesions, tenderness or abnormalities Eyes: conjunctiva are pink and non-injected, sclera clear Neck: supple, no adenopathy, no bruits, normal jugular venous pulse, no hepatojugular reflux Chest: normal shape and normal respiratory effort Lungs: clear to auscultation and percussion Cardiac Exam: - regular rate & rhythm, no murmurs gallops or rubs - normal S1, normal S2 Pulses: 2(+) throughout Abdomen: abdomen soft, non-tender, no abnormal masses and no hepatosplenomegaly Musculoskeletal: no gait disturbance, no joint inflammation, no deforming arthritis Extremities: Bilateral edema around the ankles Neuro: grossly normal exam Results & Data ([facility]) Vital Signs (Past 12 Hours) Vital Signs Temp Pulse Resp BP BP Pulse Ox 03/17/20 10:54 36.5 C 75 18 120/53 L 100 03/17/20 07:57 36.5 C 66 18 95/52 L 99 03/17/20 03:15 36.9 C 68 19 116/63 96 03/16/20 23:57 36.8 C 67 19 114/65 99 Laboratory Results Laboratory Results - last 24 hr 03/16/20 03/16/20 03/17/20 16:15 20:09 06:26 WBC 6.92 RBC 3.80 L Hgb 11.7 L Hct 37.4 L MCV 98.4 MCH 30.8 MCHC 31.3 L RDW Std Deviation 49.5 H RDW Coeff of Lizet 13.8 Plt Count 223 MPV 9.5 PT INR Sodium Potassium Chloride Carbon Dioxide Anion Gap BUN Creatinine Est Cr Clr Drug Dosing Est GFR ( Amer) Est GFR (Non-Af Amer) BUN/Creatinine Ratio Glucose POC Glucose 256 H 281 H Calcium 03/17/20 03/17/20 03/17/20 06:26 06:26 07:26 WBC RBC Hgb Hct MCV MCH MCHC RDW Std Deviation RDW Coeff of Lizet Plt Count MPV PT 12.0 INR 1.1 Sodium 137 Potassium 3.5 Chloride 97 L Carbon Dioxide 34 H Anion Gap 6.0 BUN 27 H Creatinine 1.13 Est Cr Clr Drug Dosing 72.5 Est GFR ( Amer) 74.8 Est GFR (Non-Af Amer) 64.6 BUN/Creatinine Ratio 24.2 H Glucose 110 H POC Glucose 103 H Calcium 9.1 03/17/20 10:52 WBC RBC Hgb Hct MCV MCH MCHC RDW Std Deviation RDW Coeff of Lizet Plt Count MPV PT INR Sodium Potassium Chloride Carbon Dioxide Anion Gap BUN Creatinine Est Cr Clr Drug Dosing Est GFR ( Amer) Est GFR (Non-Af Amer) BUN/Creatinine Ratio Glucose POC Glucose 205 H Calcium Medications Administered Current Inpatient Medications Acetaminophen (Acetaminophen 325 Mg Tab) 650 mg PO Q4H PRN PRN Reason: Pain or Fever Stop: 04/13/20 18:55 Acetaminophen (Acetaminophen 1000 Mg/100 Ml Iv) 1,000 mg IV ONE PRN PRN Reason: pain Stop: 03/18/20 18:32 Last Admin: 03/15/20 20:08 Dose: 1,000 mg Documented by: Allopurinol (Allopurinol 300 Mg Tab) 300 mg PO HS ANNA Stop: 04/13/20 20:59 Last Admin: 03/16/20 19:36 Dose: 300 mg Documented by: Dextrose (Dextrose 50% 50 Ml Syringe) 25 - 50 ml IV UD PRN; Protocol PRN Reason: Hypoglycemia Protocol Stop: 04/13/20 18:55 Ferrous Sulfate (Ferrous Sulfate 325 Mg Tab) 325 mg PO Q2D@0900 ANNA Stop: 04/14/20 08:59 Last Admin: 03/17/20 08:03 Dose: 325 mg Documented by: Glucagon (Glucagon For Inj 1 Mg Vial) 1 mg SQ UD PRN; Protocol PRN Reason: Hypoglycemia Protocol Stop: 04/13/20 18:55 Glucose (Glucose 10 Tabs/Tube) 4 - 8 tabs PO UD PRN; Protocol PRN Reason: Hypoglycemia Protocol Stop: 04/13/20 18:55 Glucose (Glucose 40% Gel 15 Gm Tube) 15 - 30 gm PO UD PRN; Protocol PRN Reason: Hypoglycemia Protocol Stop: 04/13/20 18:55 Furosemide 40 mg/ Syringe 4 mls @ 4 mls/min IV BID17 [facility] Stop: 04/13/20 20:59 Last Admin: 03/17/20 08:02 Dose: 4 mls/min Documented by: Ceftriaxone Sodium 2,000 mg/ (Dextrose) 70 mls @ 100 mls/hr IV DAILY [facility]; Protocol Stop: 03/29/20 17:59 Last Infusion: 03/17/20 11:15 Dose: Infused Documented by: Promethazine HCl 12.5 mg/ (Sodium Chloride) 50.5 mls @ 202 mls/hr IV Q6H PRN PRN Reason: Nausea And Vomiting Stop: 04/15/20 06:38 Insulin Aspart (Insulin Aspart 100 Units/Ml 3 Ml Pen) 0 units SC ACHS [facility] Stop: 04/13/20 20:59 Last Admin: 03/17/20 08:08 Dose: 1 units Documented by: Insulin Glargine (Insulin Glargine Solostar 100 Units/Ml 3 Ml Pen) 20 units SQ HS [facility] Stop: 04/13/20 20:59 Last Admin: 03/16/20 20:23 Dose: 20 units Documented by: Lidocaine (Lidocaine 5% 1 Patch) 1 patch TD QAM [facility] Stop: 04/15/20 06:39 Last Admin: 03/17/20 08:03 Dose: Not Given Documented by: Metoprolol Succinate (Metoprolol Succ 25mg Ext Rel Tab) 25 mg PO [facility] Stop: 04/13/20 20:59 Last Admin: 03/16/20 19:37 Dose: Not Given Documented by: Miscellaneous (Carbohydrates For Hypoglycemia ) 15 - 30 gm PO UD PRN PRN Reason: Hypoglycemia Protocol Stop: 04/13/20 18:55 Miscellaneous (Remove Lidoderm Patch) 1 ea N/A DAILY@2100 [facility] Stop: 04/15/20 20:59 Last Admin: 03/16/20 19:37 Dose: Not Given Documented by: Montelukast Sodium (Montelukast Sodium 10 Mg Tablet) 10 mg PO HS ANNA Stop: 04/13/20 20:59 Last Admin: 03/16/20 19:36 Dose: 10 mg Documented by: Ondansetron HCl (Ondansetron Inj 2 Mg/Ml 2 Ml Vial) 4 mg IV Q8H PRN PRN Reason: Nausea Stop: 04/14/20 18:08 Last Admin: 03/15/20 18:26 Dose: 4 mg Documented by: Potassium Chloride (Potassium Chloride 10 Meq Tabcr) 10 meq PO DAILY ANNA Stop: 04/14/20 08:59 Last Admin: 03/17/20 08:07 Dose: 10 meq Documented by: Prednisone (Prednisone 20 Mg Tab) 40 mg PO DAILY ANNA Stop: 03/18/20 09:01 Last Admin: 03/17/20 08:02 Dose: 40 mg Documented by: Primidone (Primidone 250 Mg Tab) 500 mg PO HS ANNA Stop: 04/13/20 20:59 Last Admin: 03/16/20 19:37 Dose: 500 mg Documented by: Rosuvastatin Calcium (Rosuvastatin Calcium 20 Mg Tab) 40 mg PO HS ANNA Stop: 04/13/20 20:59 Last Admin: 03/16/20 19:37 Dose: 40 mg Documented by: Tramadol HCl (Tramadol Hcl 50 Mg Tablet) 25 mg PO Q4H PRN PRN Reason: Pain Stop: 04/15/20 06:37 (1) COPD (chronic obstructive pulmonary disease) COPD type: unspecified COPD Qualified Code(s): J44.9 - Chronic obstructive pulmonary disease, unspecified
[2020-03-17] MEDS ORDERED: FUROSEMIDE 20 MG in SYRINGE 0 ML IV ONE (12:00)
--- NOTE | 2020-03-17 13:55 | Hospitalist Progress Note ---
Date of Service March 17, 2020 Assessment & Plan (1) Pleural effusion: (2) Acute on chronic systolic heart failure: Acute on Chronic respiratory failure with hypoxia and hypercapnia Present on admission with worsening SOB Recently discharged at [facility] 2 weeks ago. S/P thoracentesis done in the last admission where 1800 cc of transudate fluid removed . CXR on admission showed complete opacification of the right hemithorax consistent with a large pleural effusion and atelectasis of the right lung and evidence of pulmonary vascular congestion. ProBNP on admission 2125 Repeat CXR today showed right basilar pleural catheter in place. Interval decrease in the right basilar pneumothorax. Interval decrease in right lung interstitial thickening. Trace right pleural effusion. Received Lasix 40 mg IV in the ED pulmonary on board s/p thoracentesis on 03/13 where 2.2L bloody fluid removed Case discussed with pulmonology and ok to resume Coumadin today S/P Pleural catheter placement on 03/[address] Villanueva to allow additional drainage Pleural fluid cytology showed no malignancy cells CT chest today showed small right basilar hydropneumothorax following pleural catheter removal.Moderate right lower lobe and right middle lobe airspace opacity. No change in mediastinal and lateral hilar lymphadenopathy from prior chest CT. Extensive left lower lobe bronchiectasis with multifocal mucus plugging cardiology on board Pt discontinued the spironolactone because he felt it caused more SOB Currently on Lasix 40mg IV BID, but has not been diuresis much today Will increase lasix to 60mg IV BID Continue fluid restriction 2L daily Will need a repeat CT chest in 3 months Will need to follow up with outpatient pulmonology Continue Monitor I/O Positive Blood cx Blood cx grew coag negative staph not lugdunensis Mostly contamination Continue Rocephin for now Repeat blood cx no growth Will d/c abx tomorrow if cx remains negative History of paroxysmal atrial fibrillation S/P pacemaker Rate control with Toprol Coumadin on hold due to recent pleural catheter tube placement Will continue to hold coumadin for now since the pleural catheter is draining bloody fluid Will resume coumadin History of pulmonary embolism. Continue to hold coumadin see above explanation Will resume coumadin History of lower extremity wound Diabetic L heel ulcer MRSA infection in last admission Follow up with the wound care clinic Stable Chronic obstructive pulmonary disease Does not seems to have COPD exacerbation Pt said that he cannot tolerate any inhaler because it caused him to cough and pass out sometimes Pt cannot tolerate neb treatment Hypokalemia Potassium 3.5 today Continue monitor BMP while on IV lasix Coronary artery disease Continue on aspirin, statin and metoprolol. Insulin-dependent diabetes Most recent Hba1c 5.9 Continue lantus and novolog sliding scale Continue to monitor BS Chronic kidney disease stage III. Creatinine stable Continue monitor BMP while on IV lasix Deep venous thrombosis prophylaxis. Coumadin on hold due to recent pleural catheter placement (bloody fluid drainage) on SCD CODE STATUS FULL CODE Disposition Will discharge home once medically stable Admission and Anticipated Discharge Date Admission Date: March 14, 2020 Subjective Pt was seen and examined Sitting in bed with no distress eating lunch Pt said that his breathing is much better The chest tube removed today Denies any chest pain, palpitation and SOB Physical Exam Physical Exam: General- No acute distress Head- atraumatic Eyes- PERRL, EOMI, ENT- oropharynx clear Neck- supple, no JVD Lungs- +diminished breath sound at the base Heart- regular rhythm; no murmur Abdomen- normal bowel sounds, soft, nontender Extremities- no calf tenderness, right LE skin ulcer due to venous ulcer, +edema Neuro- alert, oriented x 3; PERRL, EOMI; no facial palsy; no dysarthria Skin- warm & dry Results & Data Results & Data ([facility]) Vital Signs (Past 12 Hours) Vital Signs Temp Pulse Resp BP Pulse Ox 03/17/20 10:54 36.5 C 75 18 120/53 L 100 03/17/20 07:57 36.5 C 66 18 95/52 L 99 03/17/20 03:15 36.9 C 68 19 116/63 96
[2020-03-17] MEDS ORDERED: WARFARIN SOD 5 MG TAB PO SCH (16:00)
[2020-03-17] MEDS: FUROSEMIDE 60 MG in SYRINGE 0 ML IV SCH (16:50)
[2020-03-17] MEDS: PRIMIDONE 250 MG TAB PO SCH (20:04)
[2020-03-17] MEDS: MONTELUKAST SODIUM 10 MG TABLET PO SCH (20:04)
[2020-03-17] MEDS: allopurinoL 300 MG TAB PO SCH (20:04)
[2020-03-17] MEDS: ROSUVASTATIN CALCIUM 20 MG TAB PO SCH (20:04)
[2020-03-17] MEDS: METOPROLOL SUCC 25MG EXT REL TAB PO SCH (20:05)
[2020-03-17] MEDS: INSULIN GLARGINE SOLOSTAR 100 UNITS/ML 3 ML PEN SQ SCH (21:10)
[2020-03-18 06:34] LABS: Hematocrit (blood only) 34.9 % (42-52); Hemoglobin 10.9 g/dL (14.0-18.0); Mean Corpuscular Hemoglobin 29.9 pg (25-34); Mean Corpuscular Hgb Conc 31.2 g/dL (32-36); Mean Corpuscular Volume 95.9 fL (80-100); Platelet Count 207 K/uL (130-400); RDW Coefficient of Variation 13.7 % (11.5-14.5); RDW Standard Deviation 48.1 fL (36.4-46.3); Red Blood Count 3.64 M/uL (4.7-6.1); White Blood Count 5.92 K/uL (4.8-10.8)
[2020-03-18 06:44] LABS: INR 1.1 (0.9-1.1); Prothrombin Time 11.4 Seconds (9.0-12.0)
[2020-03-18 06:59] LABS: BUN Creatinine Ratio 25.4 (10-20); Calcium 8.6 mg/dl (8.5-10.1); Creatinine Clr Calc Pharmacy 88.1 ml/min; Est GFR (African American) 94.7; Est GFR (Non-African American) 81.7; Potassium 3.4 mmol/L (3.5-5.1)
--- NOTE | 2020-03-18 07:30 | XRay Report ---
XR chest 1V portable HISTORY: 74 years-old Male pleural effusion follow-up study in a patient with pleural effusions COMPARISON: Chest CT and chest radiograph 03/17/2020 TECHNIQUE: Portable AP view of the chest FINDINGS: Cardiac silhouette is enlarged, unchanged. Left subclavian pacer. Calcified plaque of the thoracic ao rtic arch. Interval removal of the right-sided chest tube. No appreciable pneumothorax. Mild pulmonar y vascular congestion. Unchanged blunting of the left costophrenic angle. Mildly decreased size of th e small right pleural effusion. Persistent bibasilar opacities. IMPRESSION: 1. Interval removal of the right-sided chest tube. 2. Slightly decreased size of the small right pleural effusion. The previously noted right basilar pn eumothorax is not appreciated radiographically. 3. Cardiomegaly with pulmonary vascular congestion. ACT 112: Negative or not required by law. The above report was generated using voice recognition software. It may contain grammatical, syntax o r spelling errors. Electronically signed by: Hudson Obregon M.D. 03/18/2020 7:29 AM
[2020-03-18] MEDS: cefTRIAXone SODIUM 2,000 MG in DEXTROSE 5% 50 ML IV SCH (08:25)
[2020-03-18] MEDS: INSULIN ASPART 100 UNITS/ML 3 ML PEN SC SCH ×2 (08:25→12:47)
[2020-03-18] MEDS: POTASSIUM CHLORIDE 10 MEQ TABCR PO SCH (08:26)
[2020-03-18] MEDS: FUROSEMIDE 60 MG in SYRINGE 0 ML IV SCH (08:26)
[2020-03-18] MEDS: LIDOCAINE 5% 1 PATCH TD SCH (08:26)
[2020-03-18] MEDS: predniSONE 20 MG TAB PO SCH (08:26)
--- NOTE | 2020-03-18 09:52 | Pulmonology Progress Note ---
Date of Service March 18, 2020 Assessment & Plan (1) Pleural effusion: 74-year-old male with a past medical history of reduced systolic function EF of 45 to 50%, moderate aortic sclerosis and left atrial enlargement, reported COPD, chronic hypoxemic respiratory failure, obesity and recurrent left pleural effusion who underwent chest tube placement over the weekend yielded 2 L of bloody appearing fluid. I removed the patient chest tube yesterday. Patient has been restarted on warfarin. Cytology did not demonstrate any malignancy. Lymphocytes, monocytes and blood were seen. I would recommend repeating a chest x-ray in 1 month as an outpatient and a follow-up CT chest in [address] chest during this hospital admission. Consider sleep study as outpatient. We will have him follow-up in the pulmonary clinic. Pulmonary will sign off at this time. Thank you for the consult. Please call with questions. (2) History of DVT (deep vein thrombosis): (3) Chronic respiratory failure with hypoxia and hypercapnia: (4) COPD (chronic obstructive pulmonary disease): COPD type: unspecified COPD Qualified Code(s): J44.9 - Chronic obstructive pulmonary disease, unspecified (5) Acute on chronic combined systolic (congestive) and diastolic (congestive) heart failure: Admission and Anticipated Discharge Date Admission Date: March 14, 2020 Subjective Patient feeling better today. No sigificant shortness of breath. He is at his baseline supplemental oxygen requirments. No cough, fevers or chills. Denies nausea or vomiting. Pain improved in back. Review of Systems Review of Systems: Unchanged from yesterday. Physical Exam Constitutional: WD/WN, vitals as above Neck: trachea midline, no thyromegaly Respiratory: normal respiratory effort; no cough Auscultation: no wheezes Decreased lung sounds at right lung base. Cardiovascular: RRR, no murmur, no edema Gastrointestinal (Abdomen): normal bowel sounds, soft, nontender, no hepatosplenomegaly Musculoskeletal: Extremities: extremities normal to inspection Skin: no rashes, warm and dry Lymphatic: no cervical lymphadenopathy Results & Data Results & Data ([facility]) Vital Signs (Past 12 Hours) Vital Signs Temp Pulse Pulse Resp BP BP Pulse Ox 03/18/20 07:44 97.9 F 79 18 95/54 L 94 03/18/20 07:00 71 03/18/20 03:39 98.1 F 72 19 94/53 L 99 09/02/20 00:00 78 03/17/20 22:58 98.6 F 72 18 103/50 L 97 PG Care Time/CCT Total # of Minutes Spent Total Time Spent with Patient: Total time spent is greater than 50% in coordination of care (as documented) at patient's floor/unit and/or counseling patient: Coding Level of Care Code 89020 Subseq Hosp Care Lvl 3 Diagnoses Pleural effusion J90 History of DVT (deep vein thrombosis) Z86.718 Chronic respiratory failure with hypoxia and hypercapnia J96.11; J96.12 COPD (chronic obstructive pulmonary disease) J44.9 COPD type: unspecified COPD Acute on chronic combined systolic (congestive) and diastolic (congestive) heart failure I50.43
--- NOTE | 2020-03-18 11:26 | Cardiology Progress Note ---
Date of Service March 18, 2020 Assessment & Plan (1) Chronic respiratory failure with hypoxia and hypercapnia: (2) Pleural effusion: (3) Acute on chronic systolic heart failure: (4) COPD (chronic obstructive pulmonary disease): (5) Diabetes mellitus, type 2: (6) History of pacemaker: The patient had his chest tube removed yesterday. The pulmonary service has signed off. The patient is anxious to return home and I think he can be discharged with outpatient follow-up. I would continue the same dose of Lasix 60 mg twice daily orally after discharge. I will arrange follow-up with our clinic. Admission and Anticipated Discharge Date Admission Date: March 14, 2020 Subjective Patient has no new complaints today. He wants to go home. Review of Systems Review of Systems: All systems reviewed & are unremarkable except as noted in HPI & below Nothing additional to add Physical Exam Physical Exam: General: no acute distress and stated age Head: normocephalic, no masses, lesions, tenderness or abnormalities Eyes: conjunctiva are pink and non-injected, sclera clear Neck: supple, no adenopathy, no bruits, normal jugular venous pulse, no hepatojugular reflux Chest: normal shape and normal respiratory effort Lungs: clear to auscultation and percussion Cardiac Exam: - regular rate & rhythm, no murmurs gallops or rubs - normal S1, normal S2 Pulses: 2(+) throughout Abdomen: abdomen soft, non-tender, no abnormal masses and no hepatosplenomegaly Musculoskeletal: no gait disturbance, no joint inflammation, no deforming arthritis Extremities: Chronic bilateral lower extremity edema Neuro: grossly normal exam Results & Data ([facility]) Vital Signs (Past 12 Hours) Vital Signs Temp Pulse Pulse Resp BP BP Pulse Ox 03/18/20 07:44 36.6 C 79 18 95/54 L 94 03/18/20 07:00 71 03/18/20 03:39 36.7 C 72 19 94/53 L 99 03/18/20 00:00 78 Laboratory Results Laboratory Results - last 24 hr 03/17/20 03/17/20 03/18/20 16:07 20:29 06:11 WBC 5.92 RBC 3.64 L Hgb 10.9 L Hct 34.9 L MCV 95.9 MCH 29.9 MCHC 31.2 L RDW Std Deviation 48.1 H RDW Coeff of Lizet 13.7 Plt Count 207 MPV 10.0 PT INR Sodium Potassium Chloride Carbon Dioxide Anion Gap BUN Creatinine Est Cr Clr Drug Dosing Est GFR ( Amer) Est GFR (Non-Af Amer) BUN/Creatinine Ratio Glucose POC Glucose 203 H 183 H Calcium 03/18/20 03/18/20 03/18/20 06:11 06:11 07:46 WBC RBC Hgb Hct MCV MCH MCHC RDW Std Deviation RDW Coeff of Lizet Plt Count MPV PT 11.4 INR 1.1 Sodium 136 Potassium 3.4 L Chloride 97 L Carbon Dioxide 36 H Anion Gap 4.0 BUN 24 H Creatinine 0.93 Est Cr Clr Drug Dosing 88.1 Est GFR ( Amer) 94.7 Est GFR (Non-Af Amer) 81.7 BUN/Creatinine Ratio 25.4 H Glucose 108 H POC Glucose 115 H Calcium 8.6 Medications Administered Current Inpatient Medications Acetaminophen (Acetaminophen 325 Mg Tab) 650 mg PO Q4H PRN PRN Reason: Pain or Fever Stop: 04/13/20 18:55 Acetaminophen (Acetaminophen 1000 Mg/100 Ml Iv) 1,000 mg IV ONE PRN PRN Reason: pain Stop: 03/18/20 18:32 Last Admin: 03/15/20 20:08 Dose: 1,000 mg Documented by: Allopurinol (Allopurinol 300 Mg Tab) 300 mg PO HS [facility] Stop: 04/13/20 20:59 Last Admin: 03/17/20 20:04 Dose: 300 mg Documented by: Dextrose (Dextrose 50% 50 Ml Syringe) 25 - 50 ml IV UD PRN; Protocol PRN Reason: Hypoglycemia Protocol Stop: 04/13/20 18:55 Ferrous Sulfate (Ferrous Sulfate 325 Mg Tab) 325 mg PO Q2D@0900 [facility] Stop: 04/14/20 08:59 Last Admin: 03/17/20 08:03 Dose: 325 mg Documented by: Glucagon (Glucagon For Inj 1 Mg Vial) 1 mg SQ UD PRN; Protocol PRN Reason: Hypoglycemia Protocol Stop: 04/13/20 18:55 Glucose (Glucose 10 Tabs/Tube) 4 - 8 tabs PO UD PRN; Protocol PRN Reason: Hypoglycemia Protocol Stop: 04/13/20 18:55 Glucose (Glucose 40% Gel 15 Gm Tube) 15 - 30 gm PO UD PRN; Protocol PRN Reason: Hypoglycemia Protocol Stop: 04/13/20 18:55 Ceftriaxone Sodium 2,000 mg/ (Dextrose) 70 mls @ 100 mls/hr IV DAILY [facility]; Protocol Stop: 03/29/20 17:59 Last Infusion: 03/18/20 10:19 Dose: Infused Documented by: Promethazine HCl 12.5 mg/ (Sodium Chloride) 50.5 mls @ 202 mls/hr IV Q6H PRN PRN Reason: Nausea And Vomiting Stop: 04/15/20 06:38 Furosemide 60 mg/ Syringe 6 mls @ 4 mls/min IV BID17 [facility] Stop: 04/16/20 16:59 Last Admin: 03/18/20 08:26 Dose: 4 mls/min Documented by: Insulin Aspart (Insulin Aspart 100 Units/Ml 3 Ml Pen) 0 units SC ACHS [facility] Stop: 04/13/20 20:59 Last Admin: 03/18/20 08:25 Dose: 3 units Documented by: Insulin Glargine (Insulin Glargine Solostar 100 Units/Ml 3 Ml Pen) 20 units SQ [facility] Stop: 04/13/20 20:59 Last Admin: 03/17/20 21:10 Dose: 20 units Documented by: Lidocaine (Lidocaine 5% 1 Patch) 1 patch TD QAM [facility] Stop: 04/15/20 06:39 Last Admin: 03/18/20 08:26 Dose: 1 patch Documented by: Metoprolol Succinate (Metoprolol Succ 25mg Ext Rel Tab) 25 mg PO [facility] Stop: 04/13/20 20:59 Last Admin: 03/17/20 20:05 Dose: 25 mg Documented by: Miscellaneous (Carbohydrates For Hypoglycemia ) 15 - 30 gm PO UD PRN PRN Reason: Hypoglycemia Protocol Stop: 04/13/20 18:55 Miscellaneous (Remove Lidoderm Patch) 1 ea N/A DAILY@2100 [facility] Stop: 04/15/20 20:59 Last Admin: 03/17/20 20:08 Dose: 1 ea Documented by: Montelukast Sodium (Montelukast Sodium 10 Mg Tablet) 10 mg PO [facility] Stop: 04/13/20 20:59 Last Admin: 03/17/20 20:04 Dose: 10 mg Documented by: Ondansetron HCl (Ondansetron Inj 2 Mg/Ml 2 Ml Vial) 4 mg IV Q8H PRN PRN Reason: Nausea Stop: 04/14/20 18:08 Last Admin: 03/15/20 18:26 Dose: 4 mg Documented by: Potassium Chloride (Potassium Chloride 10 Meq Tabcr) 10 meq PO DAILY [facility] Stop: 04/14/20 08:59 Last Admin: 03/18/20 08:26 Dose: 10 meq Documented by: Primidone (Primidone 250 Mg Tab) 500 mg PO HS [facility] Stop: 04/13/20 20:59 Last Admin: 03/17/20 20:04 Dose: 500 mg Documented by: Rosuvastatin Calcium (Rosuvastatin Calcium 20 Mg Tab) 40 mg PO HS [facility] Stop: 04/13/20 20:59 Last Admin: 03/17/20 20:04 Dose: 40 mg Documented by: Tramadol HCl (Tramadol Hcl 50 Mg Tablet) 25 mg PO Q4H PRN PRN Reason: Pain Stop: 04/15/20 06:37 Warfarin Sodium (Warfarin Sod 5 Mg Tab) 5 mg PO DAILY@1600 [facility] Stop: 04/16/20 15:59 Last Admin: 03/17/20 16:48 Dose: 5 mg Documented by: (1) COPD (chronic obstructive pulmonary disease) COPD type: unspecified COPD Qualified Code(s): J44.9 - Chronic obstructive pulmonary disease, unspecified
--- NOTE | 2020-03-18 12:04 | Hospitalist Progress Note ---
Date of Service March 18, 2020 Assessment & Plan (1) Pleural effusion: (2) Acute on chronic systolic heart failure: Acute on Chronic respiratory failure with hypoxia and hypercapnia Present on admission with worsening SOB Recently discharged at [facility] 2 weeks ago. S/P thoracentesis done in the last admission where 1800 cc of transudate fluid removed . CXR on this admission showed complete opacification of the right hemithorax consistent with a large pleural effusion and atelectasis of the right lung and evidence of pulmonary vascular congestion. ProBNP on admission 2125 cardiology on board Pt discontinued the spironolactone because he felt it caused more SOB On Lasix 60 mg IV twice daily Discussed with CARDIOLOGY, will change Lasix to 40 mg p.o. twice daily to increase potassium supplement to 20 Meq daily Continue fluid restriction 2L daily stable to be discharged home today Pleural effusion Stable secondary to decompensated CHF pulmonary on board s/p thoracentesis on 03/13 where 2.2L bloody fluid removed Pleural fluid cytology showed no malignancy cells Chest tube discontinued on March 17, 2020 Coumadin resumed Will need a repeat CT chest in 3 months Will need to follow up with outpatient pulmonology Positive Blood cx Blood cx grew coag negative staph not lugdunensis Mostly contamination Treated with IV Rocephin Repeat blood cx no growth Antibiotic discontinued History of paroxysmal atrial fibrillation S/P pacemaker Rate control with Toprol Coumadin resumed History of pulmonary embolism. On Coumadin History of lower extremity wound Diabetic L heel ulcer MRSA infection in last admission Follow up with the wound care clinic Stable Chronic obstructive pulmonary disease Does not seems to have COPD exacerbation Pt said that he cannot tolerate any inhaler because it caused him to cough and pass out sometimes Pt cannot tolerate neb treatment Hypokalemia Due to IV Lasix, replaced Discharged home with increased p.o. potassium supplements Coronary artery disease No chest pain Continue on aspirin, statin and metoprolol. Insulin-dependent diabetes Most recent Hba1c 5.9 Continue lantus and novolog sliding scale Chronic kidney disease stage III. Creatinine stable With BMP in 1 week, as patient is discharged home with increased dose of Lasix Deep venous thrombosis prophylaxis. Coumadin CODE STATUS FULL CODE Disposition Stable to be discharged home today, Admission and Anticipated Discharge Date Admission Date: March 14, 2020 Subjective Patient sitting up on edge of bed, denies of any shortness of breath, no chest pain or discomfort No cough no chills or fever Very eager to be discharged home Review of Systems Review of Systems: All systems reviewed & are unremarkable except as noted in HPI & below Physical Exam Constitutional: + ill appearing; no acute distress Eyes: PERRL, conjunctivae normal, anicteric sclerae ENMT: external ear and nose normal, oropharynx normal Neck: trachea midline, no thyromegaly Respiratory: no respiratory distress and no cough Auscultation: + rales and + wheezes Bibasilar Rales Cardiovascular: Rate/Rhythm: regular rate and regular rhythm Extremities: + edema (Bilateral lower extremity edema/chronic) Gastrointestinal (Abdomen): Inspection/Auscultation: abdomen normal to inspection; abdomen not distended Percussion/Palpation: abdomen soft; abdomen nontender Musculoskeletal: no cyanosis or clubbing, extremities motor strength 5/5 Neurologic: PERRL, EOMI, accommodation nl, no face palsy, no dysarthria Psychiatric: A+Ox3, euthymic affect Results & Data Results & Data ([facility]) Vital Signs (Past 12 Hours) Vital Signs Temp Pulse Pulse Resp BP BP Pulse Ox 03/18/20 11:52 36.7 C 65 18 100/50 L 95 03/18/20 07:44 36.6 C 79 18 95/54 L 94 03/18/20 07:00 71 03/18/20 03:39 36.7 C 72 19 94/53 L 99 03/18/20 00:00 78
--- NOTE | 2020-03-18 12:08 | Discharge Summary ---
Date of Service March 18, 2020 Admission HPI Per Admitting Provider 74-year-old male with PMH DM type II, chronic hypoxic respiratory failure, COPD, ischemic cardiomyopathy, paroxysmal atrial fibrillation, CAD, tachybradycardia syndrome s/p pacemaker, DVT and PE, HTN, and other problems listed below who presents the ED for evaluation of shortness of breath. Patient recently admitted to [facility] 02/24 to 02/28 for management of pleural effusion secondary to CHF and pneumonia. Patient underwent right-sided thoracentesis on 02/25 for 1800 cc of fluid. Light's criteria was consistent with a transudate of effusion. Patient was discharged on spironolactone 12.5 mg daily, lisinopril 2.5 mg daily, and potassium replacement. Patient reports self stopping spironolactone and lisinopril. He felt as though spironolactone was making his shortness of breath worse and also felt like his BP was low enough and he did not need the lisinopril. Patient reports worsening shortness of breath and cough over the past few days. He chronically wears 2 L of oxygen at home however has been increasing up to 4 L. Patient denies sputum production. No fevers or chills. He denies chest pain. No lightheadedness, dizziness, diaphoresis, syncopal events. He denies any urinary symptoms. In the ED, CXR shows complete opacification of the right hemithorax. He is saturating well on his chronic 2 L of oxygen. He is afebrile, no leukocytosis. Patient was given Lasix 40 mg IV and IV magnesium replacement. Principal Diagnosis 1) Chronic respiratory failure with hypoxia and hypercapnia: (2) Pleural effusion: (3) Acute on chronic systolic heart failure: (4) COPD (chronic obstructive pulmonary disease): (5) Diabetes mellitus, type 2: (6) History of pacemaker Discharge Exam Constitutional + ill appearing; no acute distress Eyes PERRL, conjunctivae normal, anicteric sclerae ENMT external ear and nose normal, oropharynx normal Neck trachea midline, no thyromegaly Respiratory no respiratory distress and no cough Auscultation: + rales and + wheezes Cardiovascular Rate/Rhythm: regular rate and regular rhythm Extremities: + edema (Bilateral lower extremity edema/chronic) Gastrointestinal (Abdomen) Inspection/Auscultation: abdomen normal to inspection; abdomen not distended Percussion/Palpation: abdomen soft; abdomen nontender Musculoskeletal no cyanosis or clubbing, extremities motor strength 5/5 Neurologic PERRL, EOMI, accommodation nl, no face palsy, no dysarthria Psychiatric A+Ox3, euthymic affect Discharge Data Allergies Allergy/AdvReac Type Severity Reaction Status Date / Time albuterol Allergy Severe CHOKING Verified 03/14/20 16:06 SENSATION ipratropium Allergy Severe CHOKING Verified 03/14/20 16:06 SENSATION onion Allergy Intermediate RASH Verified 03/14/20 16:06 levofloxacin Allergy Mild other Verified 03/14/20 16:06 spironolactone AdvReac Severe Problems Unverified 03/14/20 16:10 with breathing atorvastatin AdvReac Intermediate Muscle Pain Verified 03/14/20 16:06 metformin AdvReac Intermediate Diarrhea Verified 03/14/20 16:06 Consultations 03/14/20 16:20 ED Decision to Admit Stat 03/14/20 18:56 Consult Pulmonology Routine 03/15/20 07:46 Consult Cardiology Routine Ordered Studies 03/14/20 18:59 US point of care ultrasound Stat 03/15/20 09:33 US point of care ultrasound Stat 03/17/20 08:45 CT chest wo con Urgent Hospital Course (1) Pleural effusion: (2) Acute on chronic systolic heart failure: Acute on Chronic respiratory failure with hypoxia and hypercapnia Present on admission with worsening SOB Recently discharged at [facility] 2 weeks ago. S/P thoracentesis done in the last admission where 1800 cc of transudate fluid removed . CXR on this admission showed complete opacification of the right hemithorax consistent with a large pleural effusion and atelectasis of the right lung and evidence of pulmonary vascular congestion. ProBNP on admission 2125 cardiology on board Pt discontinued the spironolactone because he felt it caused more SOB On Lasix 60 mg IV twice daily Discussed with CARDIOLOGY, will change Lasix to 40 mg p.o. twice daily to increase potassium supplement to 20 Meq daily Continue fluid restriction 2L daily stable to be discharged home today Pleural effusion Stable secondary to decompensated CHF pulmonary on board s/p thoracentesis on 03/13 where 2.2L bloody fluid removed Pleural fluid cytology showed no malignancy cells Chest tube discontinued on March 17, 2020 Coumadin resumed Will need a repeat CT chest in 3 months Will need to follow up with outpatient pulmonology Positive Blood cx Blood cx grew coag negative staph not lugdunensis Mostly contamination Treated with IV Rocephin Repeat blood cx no growth Antibiotic discontinued History of paroxysmal atrial fibrillation S/P pacemaker Rate control with Toprol Coumadin resumed History of pulmonary embolism. On Coumadin History of lower extremity wound Diabetic L heel ulcer MRSA infection in last admission Follow up with the wound care clinic Stable Chronic obstructive pulmonary disease Does not seems to have COPD exacerbation Pt said that he cannot tolerate any inhaler because it caused him to cough and pass out sometimes Pt cannot tolerate neb treatment Hypokalemia Due to IV Lasix, replaced Discharged home with increased p.o. potassium supplements Coronary artery disease No chest pain Continue on aspirin, statin and metoprolol. Insulin-dependent diabetes Most recent Hba1c 5.9 Continue lantus and novolog sliding scale Chronic kidney disease stage III. Creatinine stable With BMP in 1 week, as patient is discharged home with increased dose of Lasix Deep venous thrombosis prophylaxis. Coumadin CODE STATUS FULL CODE Disposition Stable to be discharged home today, Total Time Total Time Spent Total Time Spent (In Minutes): 35 minutes Total Time Includes: Examination of the Patient, Discharge Planning and Medication Reconciliation Discharge Plan Discharge Items Patient Disposition: Home - Home Health Services Reason For Visit: PLEURAL EFFUSION Discharge Diagnosis: 1) Chronic respiratory failure with hypoxia and hypercapnia: (2) Pleural effusion: (3) Acute on chronic systolic heart failure: (4) COPD (chronic obstructive pulmonary disease): (5) Diabetes mellitus, type 2: (6) History of pacemaker Condition on Discharge: Serious Activity: Resume your previous activity Non-emergency contact: Primary Care Provider Call non-emergency contact if: you have any medication questions Follow-up/Referrals: Yohan Villanueva MD [Physician] - 04/02/20 1:00 pm (Please follow up with Dr. Villanueva at [facility] on 04/02/2020 at 1:00 pm. Please arrive 15 minutes early for your appointment. If you are unable to keep this appointment, please call the office to reschedule at [phone].) Ron Mortensen, [Primary Care Provider] - 03/24/20 2:00 pm (Date & Time 03/24/2020 2:00 PM Provider Radha Shearer MD Department General Internal Medicine [facility] ) Diet: Carb Consistent or DM2 and Heart Healthy Fluids: 2000ml (8 cups) Ambulatory Orders: Basic Metabolic Panel (Routine) Timeframe: 1 Week Location: Determined by Patient Ordered By: Columba Dave Attending Provider Instructions: Repeat chest x-ray in [address] chest without contrast in 3 months Outpatient sleep study Follow-up with pulmonology/lung specialist Dr. Villanueva in clinic-is call to schedule appointment Lab work: Basic metabolic panel in 1 week Call your Primary Care doctor if any of the following symptoms or problems start or get worse: * Shortness of breath or difficulty breathing * Wake up at night short of breath * Chest pain * Cough * Swelling of your hands, feet, or legs * More fatigued or tired with your normal activity * Palpitations - sudden fast heart beats WEIGHT * Weigh yourself every morning after using the bathroom. * Use the same scale. * Wear the same amount of clothing. * Write your weight down on a chart. * Call your Primary Care doctor if you gain more than 2-3 pounds in 1-2 days. MEDICATIONS * Use this discharge instruction sheet for medication instructions. * Take your medications at the time your doctor ordered. * Do not skip a dose of your medicines. * If you miss a dose of medicine, take it as soon as possible, but DO NOT DOUBLE A DOSE. * Read your medicine information when you get home. * Know all of the side effects of your medicine. If in doubt, ask your pharmacist * Call your Primary Care doctor's office if you have any side effects. * Be sure all of your doctors know what medicine and herbs you take (including cold, flu, and herbal medicine). Take the following with you to your follow-up doctor appointments: * Weight Chart * Medication List * List of questions Do not drink excessive alcohol, beer or wine. Pending Studies at Discharge: Yes Studies:: Chest x-ray in [address] chest noncontrast in 3 months Lab work: Basic metabolic panel in 1 week Stand-Alone Forms: [employer], Smoking Cessation Medications and DC Order Prescriptions: New potassium chloride 20 mEq tablet extended release 20 meq PO DAILY Qty: 30 RF: 3 Continued primidone [Mysoline] 250 mg Tablet 500 mg PO HS RF: 0 nitroglycerin 0.4 mg Tablet, Sublingual 0.4 mg Sublingual UD PRN (Reason: Chest Pain) RF: 0 montelukast [Singulair] 10 mg Tablet 10 mg PO HS RF: 0 allopurinol [Zyloprim] 300 mg Tablet 300 mg PO HS RF: 0 insulin aspart U-100 [Novolog PenFill U-100 Insulin] 100 unit/mL Cartridge 1 sliding scale dose SUBCUT AC RF: 0 rosuvastatin [Crestor] 40 mg Tablet 40 mg PO HS RF: 0 Lantus Solostar U-100 Insulin 100 unit/mL (3 mL) Insulin Pen 25 unit SUBCUT HS RF: 0 ferrous sulfate [iron] 325 mg (65 mg iron) Tablet 325 mg PO Q OTHER DAY RF: 0 polyethylene glycol 3350 [Miralax] 17 gram Powder In Packet 17 g PO DAILY PRN (Reason: constipation) Qty: 14 RF: 0 warfarin [Jantoven] 2 mg tablet 6 mg PO SUTUTHSA@2100 RF: 0 warfarin [Jantoven] 2 mg tablet 4 mg PO MOWEFR@2100 RF: 0 aspirin 325 mg Tablet 325 mg PO HS RF: 0 metoprolol succinate 50 mg Tablet Extended Release 24 Hr 25 mg PO HS RF: 0 Changed furosemide [Lasix] 40 mg tablet 60 mg PO BID 30 Days Qty: 45 RF: 2 Discontinued potassium chloride 10 mEq tablet extended release 10 meq PO DAILY Qty: 30 RF: 0 Discharge Orders: Discharge Order (Routine); Ordered 03/18/20 Ordered By: Columba Galindo Admission Data Admit Date/Time: 03/14/20 16:44 Attending Provider: Columba Galindo Admit Provider: Chad Cortez Primary Care Provider: Ron Mortensen Other Providers: Chad Cortez ; Yohan Villanueva ; Yves Ceballos ; [facility] Other Interventions: Discharge Summary Assessment (RN) Last Done: 03/18/20 13:39
[2020-03-18] MEDS ORDERED: POTASSIUM CHLORIDE 20 MEQ TABCR PO STA (12:13)
== END 2020-03-18 16:49 | disposition home health service (06) | DRG 291 ==
LOC: ED 14:54 → SUATTDRO 16:44 → 2E 16:44

== ENCOUNTER 2020-04-02 10:33 | Observation (INO) ==
[2020-04-02] MEDS ORDERED: FUROSEMIDE 40 MG/4 ML VIAL IV STA ×2 (10:42→14:19)
--- NOTE | 2020-04-02 10:46 | Emergency Department Note ---
History of Present Illness General Chief complaint: Shortness of Breath/Dyspnea Stated complaint: shortness of breath Time Seen by Provider: 04/02/20 10:35 Source: patient, EMS, RN notes reviewed and old records reviewed Mode of arrival: ambulatory Limitations: no limitations History of Present Illness Provider complaint: SOB Onset (ago): day(s) 1 Radiation: non-radiation Severity: moderate Pain Consistency: + colicky Current Pain Intensity: 0 Quality: + aching Relieved By: + immobilization Exacerbated By: + immobilization Associated symptoms: + chest pain and + cough; no diaphoresis, no fever/chills, no headaches, no nausea/vomiting and no shortness of breath Treatments prior to arrival: none This 74-year-old male who presents emergency department over concerns that he is short of breath and requiring more oxygen. The patient is also on Coumadin. He recently had an effusion drained out of his lung. The patient has not done anything for the shortness of breath prior to arrival. He denies any fevers or chills. Home Medications Home Medications Medication Instructions Recorded Confirmed Type Lantus Solostar U-100 Insulin 25 unit SUBCUT HS 04/11/18 04/02/20 History allopurinol [Zyloprim] 300 mg PO HS 04/11/18 04/02/20 History insulin aspart U-100 [Novolog 1 sliding scale dose SUBCUT AC 04/11/18 04/02/20 History PenFill U-100 Insulin] montelukast [Singulair] 10 mg PO HS 04/11/18 04/02/20 History nitroglycerin 0.4 mg SUBLINGUAL UD PRN 04/11/18 04/02/20 History primidone [Mysoline] 500 mg PO HS 04/11/18 04/02/20 History rosuvastatin [Crestor] 40 mg PO HS 04/11/18 04/02/20 History aspirin 325 mg PO HS 08/08/19 04/02/20 History metoprolol succinate 25 mg PO HS 08/08/19 04/02/20 History ferrous sulfate [iron] 325 mg PO Q OTHER DAY 01/09/20 04/02/20 History polyethylene glycol 3350 [Miralax] 17 g PO DAILY PRN #14 ea 01/28/20 04/02/20 Rx warfarin [Jantoven] 4 mg PO MOWEFR@2100 03/14/2004/02/20 History warfarin [Jantoven] 6 mg PO SUTUTHSA@209903/14/20 04/02/20 History furosemide [Lasix] 60 mg PO BID 30 Days #45 tab 03/18/20 04/02/20 Rx potassium chloride 20 meq PO DAILY #30 tab 03/18/20 04/02/20 Rx Allergies Allergy/AdvReac Type Severity Reaction Status Date / Time albuterol Allergy Severe CHOKING Verified 04/02/20 11:22 SENSATION ipratropium Allergy Severe CHOKING Verified 04/02/20 11:22 SENSATION onion Allergy Intermediate RASH Verified 04/02/20 11:22 levofloxacin Allergy Mild other Verified 04/02/20 11:22 spironolactone AdvReac Severe Problems Unverified 04/02/20 11:22 with breathing atorvastatin AdvReac Intermediate Muscle Pain Verified 04/02/20 11:22 metformin AdvReac Intermediate Diarrhea Verified 04/02/20 11:22 Past Med/Surg History Medical History Acute on chronic combined systolic (congestive) and diastolic (congestive) heart failure Bronchiectasis Chronic kidney disease stage 3 Chronic left ventricular systolic heart failure Chronic respiratory failure with hypoxia and hypercapnia COPD (chronic obstructive pulmonary disease) Coronary artery disease "S/P inferior AK, severe multivessel disease not amenable to intervention" per 2012 cath Diabetes mellitus, type 2 IDDM GERD (gastroesophageal reflux disease) Gout Hearing deficit BL KOO History of CVA (cerebrovascular accident) "YEARS AGO" - reports he has had a tremor ever since stroke. 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 ROYCE Rasmussen historian Seizure QUESTIONABLE- EEG 1 WEEK AGO FOR QUESTIONABLE SEIZURE (reported convulsions, loss of consciousness 1 week ago while watching TV) - [place] [facility] - EEG unremarkable Tremor Surgical History H/O toe surgery "amputation left 3rd and 4th toe 03/2012" History of bronchoscopy History of cardiac cath MULTIPLE - NO STENTS [place] (could not recall dates - most recent in system is from 2011 [place]) History of cholecystectomy History of incision of pericardium pericardial window secondary to pericardial effusion History of pacemaker PLACED 10/2017 FOR [employer] - [employer] - LAST CHECKED 05/2019 History of tonsillectomy S/P cystoscopy with ureteral stent placement 07/25/2019 [facility] Status post creation of pericardial window Family History Mother Alzheimer disease Social History Smoking Status: Former smoker Tobacco Type: Cigarettes Cigarettes Per Day: 4-6 packs. 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 Other Information That Helps Us Care for You: No Feels Safe at Home: Yes Safety Concerns: Feels Safe At This Time Review of Systems A total of 10 systems reviewed and were otherwise negative Physical Exam Vital Signs Vital Signs - 24 hr 04/02/20 10:38 Temperature 37.1 C Temperature Source Oral Pulse Rate 60 Pulse Rhythm Regular Pulse Strength Normal Respiratory Rate 16 Respiratory Effort / Characteristics Non-Labored Respiratory Depth Normal Respiratory Pattern Regular Blood Pressure 103/50 L Blood Pressure Mean 67 Blood Pressure Position Sitting Pulse Oximetry 98 Oxygen Delivery Method Nasal Cannula Oxygen Flow Rate 2 Sepsis New/Unexplained Change in Mental Status No Sepsis Action Taken by Nursing No Action Required VITAL SIGNS - Vital signs and nursing notes were reviewed. GENERAL - 74-year-old male appearing stated age who is in no acute distress. Communicates well with provider and answers questions appropriately. SKIN - Without rashes. HEAD - NC/AT. EYES - PERRL with EOMI bilaterally. Sclera anicteric. Palpebral conjunctiva pink and moist with no injection noted. EARS - No deformities of external structures noted on gross examination bilaterally. No pain elicited with palpation of the tragus bilaterally. External auditory canals without discharge or otorrhea. Tympanic membranes pearly richmond without retraction or bulging. No fluid or purulent material visualized behind the TM. Handle of malleus, umbo, cone of light, pars tensa/flaccid all easily visualized. NOSE - Midline and without cyanosis. No epistaxis or purulent drainage noted. Septum midline without deviation or septal hematoma noted. MOUTH/OROPHARYNX - Without perioral cyanosis. Buccal mucosa pink and moist and without leukoplakia. Tongue midline with equal elevation of palate bilaterally. No tonsillar hypertrophy, erythema, or exudates noted. dentition noted. NECK - Neck with FROM. Supple to palpation. lymphadenopathy noted. No nuchal rigidity. LUNGS - Chest wall symmetric without accessory muscle use, intercostals retractions, or central cyanosis. Normal vesicular breath sounds CTA B/L. No wheezes, rales, or rhonchi appreciated. CARDIAC - RRR with S1/S2. No murmur, rubs, or gallops appreciated. ABDOMEN - Abdominal contour without pulsations or visible masses. BS nor moactive all four quadrants. No tenderness, palpable masses, hepatosplenomegaly, or ascites noted. EXTREMITIES - No clubbing or peripheral cyanosis. No pretibial edema present. +3/5 radial, posterior tibial, and dorsalis pedis pulses palpated throughout. +5/5 strength noted in UE/LE bilaterally. NEUROLOGIC - Cranial nerves II through XII grossly intact. Sensory intact to light touch throughout. Patellar reflexes +2/4. PSYCH - A&Ox3 and cooperates fully with examiner. Pt is very pleasant and i nteracts well with examiner. Course Administered Medications Allopurinol (Allopurinol 300 Mg Tab) 300 mg PO HS ANNA Stop: 05/02/20 20:59 Last Admin: 04/02/20 20:30 Dose: 300 mg Documented by: [id number] Aspirin (Aspirin 325 Mg Ectab) 325 mg PO HS ANNA Stop: 05/02/20 20:59 Last Admin: 04/02/20 20:30 Dose: 325 mg Documented by: [id number] Ferrous Sulfate (Ferrous Sulfate 325 Mg Tab) 325 mg PO Q48H ANNA Stop: 05/03/20 08:59 Last Admin: 04/03/20 08:23 Dose: 325 mg Documented by: [id number] Furosemide 40 mg/ Syringe 4 mls @ 4 mls/min IV BID17 [facility] Stop: 05/02/20 16:59 Last Admin: 04/03/20 08:23 Dose: 4 mls/min Documented by: [id number] Admin: 04/02/20 17:27 Dose: 4 mls/min Documented by: [id number] Piperacillin Sod/Tazobactam (Sod 3.375 gm/ Dextrose) 115 mls @ 28.75 mls/hr IV Q8H [facility]; Protocol Stop: 04/04/20 19:59 Last Infusion: 04/03/20 15:01 Dose: 0 mls/hr Documented by: [id number] Admin: 04/03/20 11:24 Dose: 28.8 mls/hr Documented by: [id number] Infusion: 04/03/20 08:24 Dose: 0 mls/hr Documented by: [id number] Admin: 04/03/20 04:23 Dose: 28.8 mls/hr Documented by: [id number] Infusion: 04/03/20 00:37 Dose: 0 mls/hr Documented by: [id number] Admin: 04/02/20 20:30 Dose: 28.8 mls/hr Documented by: [id number] Insulin Aspart (Insulin Aspart 100 Units/Ml 3 Ml Pen) 0 units SC ACHS [facility] Stop: 05/02/20 16:29 Last Admin: 04/03/20 11:26 Dose: 3 units Documented by: [id number] Cosigned by: [id number] Admin: 04/03/20 08:24 Dose: 2 units Documented by: [id number] Cosigned by: [id number] Admin: 04/02/20 20:43 Dose: 3 units Documented by: [id number] Cosigned by: [id number] Admin: 04/02/20 17:28 Dose: 9 units Documented by: [id number] Cosigned by: [id number] Insulin Glargine (Insulin Glargine Solostar 100 Units/Ml 3 Ml Pen) 0 units SC BID [facility]; Protocol Stop: 05/02/20 20:59 Last Admin: 04/03/20 08:24 Dose: Not Given Documented by: [id number] Admin: 04/02/20 20:42 Dose: 20 units Documented by: [id number] Cosigned by: [id number] Metoprolol Succinate (Metoprolol Succ 25mg Ext Rel Tab) 25 mg PO [facility] Stop: 05/02/20 20:59 Last Admin: 04/02/20 20:30 Dose: 25 mg Documented by: [id number] Montelukast Sodium (Montelukast Sodium 10 Mg Tablet) 10 mg PO [facility] Stop: 05/02/20 20:59 Last Admin: 04/02/20 20:30 Dose: 10 mg Documented by: [id number] Primidone (Primidone 250 Mg Tab) 500 mg PO [facility] Stop: 05/02/20 20:59 Last Admin: 04/02/20 20:30 Dose: 500 mg Documented by: [id number] Rosuvastatin Calcium (Rosuvastatin Calcium 20 Mg Tab) 40 mg PO [facility] Stop: 05/02/20 20:59 Last Admin: 04/02/20 20:30 Dose: 40 mg Documented by: [id number] Warfarin Sodium (Warfarin Sod 6 Mg Tab) 6 mg PO SuTuThSa@1600 [facility] Stop: 05/02/20 15:59 Last Admin: 04/02/20 17:27 Dose: 6 mg Documented by: [id number] Discontinued Medications Furosemide (Furosemide 40 Mg/4 Ml Vial) 40 mg IV NOW STA Stop: 04/02/20 10:43 Last Admin: 04/02/20 11:38 Dose: 40 mg Documented by: [id number] Hydrocortisone Sodium Succinate (Hydrocortisone Sod Succinate 100 Mg/2 Ml Vial) 100 mg IV NOW STA Stop: 04/02/20 12:34 Last Admin: 04/02/20 12:59 Dose: 100 mg Documented by: [id number] Sodium Chloride (Nss 1000ml) 500 mls @ 999 mls/hr IV .Q31M ONE Stop: 04/02/20 12:09 Last Infusion: 04/02/20 14:21 Dose: 0 mls/hr Documented by: [id number] Admin: 04/02/20 12:58 Dose: 999 mls/hr Documented by: [id number] Calcium Gluconate 1,000 mg/ (Sodium Chloride) 60 mls @ 240 mls/hr IV NOW STA Stop: 04/02/20 12:36 Last Infusion: 04/02/20 14:21 Dose: 0 mls/hr Documented by: [id number] Admin: 04/02/20 12:59 Dose: 240 mls/hr Documented by: [id number] Piperacillin Sod/Tazobactam (Sod 3.375 gm/ Dextrose) 115 mls @ 230 mls/hr IV NOW ONE; Protocol Stop: 04/02/20 15:44 Last Infusion: 04/02/20 18:32 Dose: 0 mls/hr Documented by: [id number] Admin: 04/02/20 17:27 Dose: 230 mls/hr Documented by: [id number] Vancomycin HCl 2,250 mg/ (Sodium Chloride) 545 mls @ 200 mls/hr IV TODAY@1530 ANNA Stop: 04/02/20 18:14 Last Infusion: 04/02/20 20:34 Dose: 0 mls/hr Documented by: [id number] Admin: 04/02/20 17:26 Dose: 200 mls/hr Documented by: [id number] Vancomycin HCl 1,500 mg/ (Sodium Chloride) 530 mls @ 200 mls/hr IV Q18H ANNA; Protocol Stop: 04/05/20 09:59 Last Infusion: 04/03/20 14:43 Dose: 0 mls/hr Documented by: [id number] Admin: 04/03/20 11:24 Dose: 200 mls/hr Documented by: [id number] Insulin Human Regular (Novolin-R Insulin Per Unit Charge) 10 units IV NOW STA Stop: 04/02/20 12:23 Last Admin: 04/02/20 12:59 Dose: 10 units Documented by: [id number] Cosigned by: [id number] Levalbuterol HCl (Levalbuterol Tartrate 15 Gm Hfa.Aer.Ad) 2 puffs INH NOW STA Stop: 04/02/20 12:34 Last Admin: 04/02/20 12:58 Dose: Not Given Documented by: [id number] Sodium Bicarbonate (Sodium Bicarb 8.4% Inj 50 Meq/50 Ml Syr) 50 meq IV NOW STA Stop: 04/02/20 12:25 Last Admin: 04/02/20 12:59 Dose: 50 meq Documented by: [id number] Medical Decision Making Differential Diagnosis Reactive airway disease, pneumonia, pneumothorax, COPD, CHF, infections, cardiac ischemia, pulmonary embolism, musculoskeletal, gastrointestinal, as well as other pathologies. Medical Records Attestation: I reviewed the patient's medical records. Home Medications Current Medication List: was personally reviewed by me Laboratory Data Attestation: I reviewed the patient's lab results. Result diagrams: 04/03/20 07:01 04/03/20 07:01 Lab Results 04/02/20 04/02/20 04/02/20 Range/Units 11:37 11:37 11:37 WBC 12.22 H (4.8-10.8) K/uL RBC 4.50 L (4.7-6.1) M/uL Hgb 12.7 L (14.0-18.0) g/dL Hct 42.5 (42-52) % MCV 94.4 (80-100) fL MCH 28.2 (25-34) pg MCHC 29.9 L (32-36) g/dL RDW Std Deviation 48.2 H (36.4-46.3) fL RDW Coeff of Lizet 13.9 (11.5-14.5) % Plt Count 232 (130-400) K/uL MPV 9.9 (7.4-10.4) fL Immature Gran % (Auto) 0.3 % Neut % (Auto) 87.7 % Lymph % (Auto) 6.8 % Cross % (Auto) 5.0 % Eos % (Auto) 0.1 % Baso % (Auto) 0.1 % Neut # (Auto) 10.72 H (1.4-6.5) K/uL Lymph # (Auto) 0.83 L (1.2-3.4) K/uL Cross # (Auto) 0.61 H (0.11-0.59) K/uL Eos # (Auto) 0.01 (0-0.5) K/uL Baso # (Auto) 0.01 (0-0.2) K/uL Immature Gran # (Auto) 0.04 H (0.00-0.02) K/uL PT 18.0 H (9.0-12.0) Seconds INR 1.8 H (0.9-1.1) APTT 36.5 H (21.0-31.0) Seconds PTT Ratio 1.3 Sodium 134 L (136-145) mmol/L Potassium 5.9 H (3.5-5.1) mmol/L Chloride 99 (98-107) mmol/L Carbon Dioxide 30 (21-32) mmol/L Anion Gap 5.0 (3-11) BUN 18 (7-18) mg/dl Creatinine 1.45 H (0.6-1.4) mg/dl Est Cr Clr Drug Dosing 56.5 ml/min Est GFR ( Amer) 55.4 Est GFR (Non-Af Amer) 47.8 BUN/Creatinine Ratio 12.3 (10-20) Glucose 217 H (70-99) mg/dl Calcium 8.4 L (8.5-10.1) mg/dl Total Bilirubin 0.4 (0.2-1) mg/dl AST 49 H (15-37) U/L ALT 22 (12-78) U/L Alkaline Phosphatase 188 H (45-117) U/L Total Creatine Kinase 70 (39-308) U/L CK-MB (CK-2) < 1.0 (0.5-3.6) ng/ml CK/CKMB % Calc TNP Troponin I < 0.015 (0-0.045) ng/ml NT-Pro-B Natriuret Pep 4603 H (0-900) pg/ml Total Protein 7.6 (6.4-8.2) gm/dl Albumin 2.4 L (3.4-5.0) gm/dl Globulin 5.2 H (2.5-4.0) gm/dl Albumin/Globulin Ratio 0.5 L (0.9-2) Lipase 39 L (73-393) U/L Procalcitonin (0-0.5) ng/ml Random Cortisol mcg/dl COVID-19 Eval Order COVID-19 PCR (Negative) 04/02/20 04/02/20 04/02/20 Range/Units 11:41 11:41 11:41 WBC (4.8-10.8) K/uL RBC (4.7-6.1) M/uL Hgb (14.0-18.0) g/dL Hct (42-52) % MCV (80-100) fL MCH (25-34) pg MCHC (32-36) g/dL RDW Std Deviation (36.4-46.3) fL RDW Coeff of Lizet (11.5-14.5) % Plt Count (130-400) K/uL MPV (7.4-10.4) fL Immature Gran % (Auto) % Neut % (Auto) % Lymph % (Auto) % Cross % (Auto) % Eos % (Auto) % Baso % (Auto) % Neut # (Auto) (1.4-6.5) K/uL Lymph # (Auto) (1.2-3.4) K/uL Cross # (Auto) (0.11-0.59) K/uL Eos # (Auto) (0-0.5) K/uL Baso # (Auto) (0-0.2) K/uL Immature Gran # (Auto) (0.00-0.02) K/uL PT (9.0-12.0) Seconds INR (0.9-1.1) APTT (21.0-31.0) Seconds PTT Ratio Sodium (136-145) mmol/L Potassium (3.5-5.1) mmol/L Chloride (98-107) mmol/L Carbon Dioxide (21-32) mmol/L Anion Gap (3-11) BUN (7-18) mg/dl Creatinine (0.6-1.4) mg/dl Est Cr Clr Drug Dosing ml/min Est GFR ( Amer) Est GFR (Non-Af Amer) BUN/Creatinine Ratio (10-20) Glucose (70-99) mg/dl Calcium (8.5-10.1) mg/dl Total Bilirubin (0.2-1) mg/dl AST (15-37) U/L ALT (12-78) U/L Alkaline Phosphatase (45-117) U/L Total Creatine Kinase (39-308) U/L CK-MB (CK-2) (0.5-3.6) ng/ml CK/CKMB % Calc Troponin I (0-0.045) ng/ml NT-Pro-B Natriuret Pep (0-900) pg/ml Total Protein (6.4-8.2) gm/dl Albumin (3.4-5.0) gm/dl Globulin (2.5-4.0) gm/dl Albumin/Globulin Ratio (0.9-2) Lipase (73-393) U/L Procalcitonin (0-0.5) ng/ml Random Cortisol 30.37 mcg/dl COVID-19 Eval Order Covid19 Done at [facility] COVID-19 PCR NEGATIVE (Negative) 09/17/20 Range/Units 11:41 WBC (4.8-10.8) K/uL RBC (4.7-6.1) M/uL Hgb (14.0-18.0) g/dL Hct (42-52) % MCV (80-100) fL MCH (25-34) pg MCHC (32-36) g/dL RDW Std Deviation (36.4-46.3) fL RDW Coeff of Lizet (11.5-14.5) % Plt Count (130-400) K/uL MPV (7.4-10.4) fL Immature Gran % (Auto) % Neut % (Auto) % Lymph % (Auto) % Cross % (Auto) % Eos % (Auto) % Baso % (Auto) % Neut # (Auto) (1.4-6.5) K/uL Lymph # (Auto) (1.2-3.4) K/uL Cross # (Auto) (0.11-0.59) K/uL Eos # (Auto) (0-0.5) K/uL Baso # (Auto) (0-0.2) K/uL Immature Gran # (Auto) (0.00-0.02) K/uL PT (9.0-12.0) Seconds INR (0.9-1.1) APTT (21.0-31.0) Seconds PTT Ratio Sodium (136-145) mmol/L Potassium (3.5-5.1) mmol/L Chloride (98-107) mmol/L Carbon Dioxide (21-32) mmol/L Anion Gap (3-11) BUN (7-18) mg/dl Creatinine (0.6-1.4) mg/dl Est Cr Clr Drug Dosing ml/min Est GFR ( Amer) Est GFR (Non-Af Amer) BUN/Creatinine Ratio (10-20) Glucose (70-99) mg/dl Calcium (8.5-10.1) mg/dl Total Bilirubin (0.2-1) mg/dl AST (15-37) U/L ALT (12-78) U/L Alkaline Phosphatase (45-117) U/L Total Creatine Kinase (39-308) U/L CK-MB (CK-2) (0.5-3.6) ng/ml CK/CKMB % Calc Troponin I (0-0.045) ng/ml NT-Pro-B Natriuret Pep (0-900) pg/ml Total Protein (6.4-8.2) gm/dl Albumin (3.4-5.0) gm/dl Globulin (2.5-4.0) gm/dl Albumin/Globulin Ratio (0.9-2) Lipase (73-393) U/L Procalcitonin 0.25 (0-0.5) ng/ml Random Cortisol mcg/dl COVID-19 Eval Order COVID-19 PCR (Negative) Imaging Data Radiologist's Impression: [place] [phone] XRay Report Patient: RON ETIENNE Date: 04/02/20 MR#: [id number] Acct ID:[id number]: Date: 1945City Zip: [place] [address] Age: 74Location: ED Sex: MRoom/Bed: Att Phy:Diagnosis: shortness of breath Mary Phy: Ron Mortensen, DOService Date: 04/02/20 Fam Phy:Interpreting Phy: Dillon Gaspar MD Admit Phy: Ordering Phy: Matt Sims MD cc: ~ XR chest 1V portable CLINICAL HISTORY: Atypical chest pain COMPARISON STUDY: 03/18/2020 FINDINGS: The heart remains enlarged. There is a left subclavian dual-chamber central venous pacemaker. There are small bilateral pleural effusions with associated basilar parenchymal opacity. Mild central pulmonary vascular congestion is suspected.[ IMPRESSION: 1. Persistent cardiomegaly and suspected mild pulmonary vascular congestion 2. Persistent bilateral pleural effusions with associated basilar atelectasis/consolidation 3. No significant change when compared with the prior examination ACT 112: Negative or not required by law. Electronically signed by: Dillon Gaspar M.D. 04/02/2020 11:27 AM Dictated: 04/02/201124 Transcribed: 04/02/201124 ECG Data Attestation: I personally reviewed and interpreted this ECG as follows: Indication: + SOB/dyspnea Rate (beats per minute): 64 Rhythm: + other (atrial paced rhythm) ECG Hazard: + Normal ECG ST segments: no ST depression and no ST elevation Comparison ECG Date: from (04/02/2020) Change: no significant change MDM Narrative Patient was seen and evaluated as above in room C3. Review was performed of nursing notes and vital signs. I did review pertinent previous visits and patient history. After obtaining a thorough history and physical examination the above work up was performed. This is a 74-year-old male who presents the emergency department complaining of shortness of breath. The patient has a history of pleural effusions that have been drained. He was given Lasix here in the emergency department. An order was placed for continuous cardiac monitoring. The monitor shows a rate of 62 with paced rhythm rhythm. This 74-year-old male presents emergency department hype with hypoxia. He was given Lasix here in the emergency department. Due to the complicated nature of the patient's past medical history I did discuss the case with the hospitalist service who did agree to admit the patient. Patient is in agreement with the treatment plan. The patient was evaluated during the global COVID-19 pandemic, and that di agnosis was suspected/considered upon their initial presentation. Their evaluation, treatment and testing was consistent with current guidelines for patients who present with complaints or symptoms that may be related to COVID- 19. Impression & Plan COPD with exacerbation, Hyperkalemia, SIRS (systemic inflammatory response syndrome) Discharge Plan Visit Data Chief Complaint: Shortness of Breath/Dyspnea Stated Complaint: shortness of breath ED Provider: Matt Sims Discharge Problem: COPD with exacerbation, Hyperkalemia, SIRS (systemic inflammatory response syndrome) Patient Disposition: Admitted As Inpatient Discharge Instructions Interventions: ED Discharge Assessment Last Done: 04/02/20 13:46
--- NOTE | 2020-04-02 11:28 | XRay Report ---
XR chest 1V portable CLINICAL HISTORY: Atypical chest pain COMPARISON STUDY: 03/18/2020 FINDINGS: The heart remains enlarged. There is a left subclavian dual-chamber central venous pacemake r. There are small bilateral pleural effusions with associated basilar parenchymal opacity. Mild cent ral pulmonary vascular congestion is suspected.[ IMPRESSION: 1. Persistent cardiomegaly and suspected mild pulmonary vascular congestion 2. Persistent bilateral pleural effusions with associated basilar atelectasis/consolidation 3. No significant change when compared with the prior examination ACT 112: Negative or not required by law. Electronically signed by: Dillon Gaspar M.D. 04/02/2020 11:27 AM
[2020-04-02] MEDS ORDERED: SODIUM CHLORIDE 0.9% 1000ML 500 ML IV ONE (11:39)
[2020-04-02 11:49] LABS: Basophils # (auto) 0.01 K/uL (0-0.2); Basophils % (auto) 0.1 %; Eosinophils # (auto) 0.01 K/uL (0-0.5); Eosinophils % (auto) 0.1 %; Hematocrit (blood only) 42.5 % (42-52); Hemoglobin 12.7 g/dL (14.0-18.0); Immature Granulocytes # (auto) 0.04 K/uL (0.00-0.02); Immature Granulocytes % (auto) 0.3 %; Lymphocytes # (auto) 0.83 K/uL (1.2-3.4); Lymphocytes % (auto) 6.8 %; Mean Corpuscular Hemoglobin 28.2 pg (25-34); Mean Corpuscular Hgb Conc 29.9 g/dL (32-36); Mean Corpuscular Volume 94.4 fL (80-100); Mean Platelet Volume 9.9 fL (7.4-10.4); Monocytes # (auto) 0.61 K/uL (0.11-0.59); Neutrophils # (auto) 10.72 K/uL (1.4-6.5); Neutrophils % (auto) 87.7 %; Platelet Count 232 K/uL (130-400); RDW Coefficient of Variation 13.9 % (11.5-14.5); RDW Standard Deviation 48.2 fL (36.4-46.3); White Blood Count 12.22 K/uL (4.8-10.8)
[2020-04-02 12:02] LABS: INR 1.8 (0.9-1.1); Partial Thromboplastin Ratio 1.3; Partial Thromboplastin Time 36.5 Seconds (21.0-31.0)
[2020-04-02 12:09] LABS: Alanine Aminotransferase 22 U/L (12-78); Albumin Level 2.4 gm/dl (3.4-5.0); Aspartate Aminotransferase 49 U/L (15-37); BUN Creatinine Ratio 12.3 (10-20); Blood Urea Nitrogen 18 mg/dl (7-18); Calcium 8.4 mg/dl (8.5-10.1); Carbon Dioxide 30 mmol/L (21-32); Chloride 99 mmol/L (98-107); Creatinine Clr Calc Pharmacy 56.5 ml/min; Est GFR (African American) 55.4; Est GFR (Non-African American) 47.8; Glucose 217 mg/dl (70-99); Lipase 39 U/L (73-393); Potassium 5.9 mmol/L (3.5-5.1); Sodium 134 mmol/L (136-145)
[2020-04-02 12:15] LABS: Albumin Globulin Ratio 0.5 (0.9-2); Alkaline Phosphatase 188 U/L (45-117); Bilirubin,Total 0.4 mg/dl (0.2-1); Creatine Kinase 70 U/L (39-308); Creatine Kinase MB < 1.0 ng/ml (0.5-3.6); Globulin 5.2 gm/dl (2.5-4.0); NT Pro B Type Natriuretic Pept 4603 pg/ml (0-900); Total Protein 7.6 gm/dl (6.4-8.2); Troponin I < 0.015 ng/ml (0-0.045)
[2020-04-02] MEDS ORDERED: CALCIUM GLUCONATE 10% 1,000 MG in SODIUM CHLORIDE 0.9% 50 ML IV STA (12:22)
[2020-04-02] MEDS ORDERED: NovoLIN-R INSULIN PER UNIT CHARGE IV STA (12:22)
[2020-04-02] MEDS ORDERED: SODIUM BICARB 8.4% INJ 50 MEQ/50 ML SYR IV STA (12:24)
[2020-04-02] MEDS ORDERED: LEVALBUTEROL TARTRATE 15 GM HFA.AER.AD INH STA (12:33)
[2020-04-02] MEDS ORDERED: HYDROCORTISONE SOD SUCCINATE 100 MG/2 ML VIAL IV STA (12:33)
--- NOTE | 2020-04-02 13:24 | History & Physical Report ---
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 admit to PCU Lasix 60mg IV BID17 daily weights/strict I and O recent echo 02/28/20 EF 45-50%, LVH, inferior/posterior wall hypokinesis, moderate av sclerosis, RVSP 40-50mmhg O2 supplementation, pt on 2L at baseline (3) SIRS (systemic inflammatory response syndrome): Patient met criteria on admission secondary to leukocytosis, paroxysmal hypotension and initial tachypnea. He is afebrile. Chest x-ray revealed bilateral pleural effusion unchanged from prior exam Obtain a procalcitonin, urinalysis, blood cultures Initiate empiric Vanco Zosyn until infection entirely ruled out SIRS likely in response to decompensation of CHF, again infection not ruled out (4) Hyperkalemia: K 5.9 on K supplementation - hold this along with low K diet received 1g calc gluc/Reg insulin in ED repeat bmp at 1530 (5) Diabetes mellitus, type 2: Last A1c 5.9 02/26/2020 Lantus/NovoLog per protocol (6) History of pulmonary embolism: INR 1.8 - give 6 mg this evening (home regimen 4 mg Monday, 6 mg all other days) (7) PAF (paroxysmal atrial fibrillation): continue Toprol for rate control Warfarin for thrombotic control INR 1.8 give 6 mg this evening (home regimen 4 mg Monday, 6 mg all other days) (8) COPD (chronic obstructive pulmonary disease): 2/2 to COPD and Bronchiectasis on 2 L of O2 chronically Follows [facility], hx of Asp pneumonitis as well due to poor airway clearance from bronchiectasis Pt with allergy to nebulizer treatments and at baseline has wheezing, nonco mpliant with pulmonary toilet Has most recently follow with pulmonology secondary to recurrent pleural effusion requiring thoracentesis x2 Low threshold for pulmonology consult if any worsening in resp status (9) PAD (peripheral artery disease): continue asa/statin (10) HLD (hyperlipidemia): Continue statin (11) History of tachycardia-bradycardia syndrome: s/p PPM (12) Chronic kidney disease stage 3: baseline cr 1.2 bun/cr 18 and 1.45 today monitor renal fxn closely in setting of diuresis (13) DVT prophylaxis: continue warfarin Disposition: admit to tele Follow up: PCP Dr. Mortensen upon discharge Pt was seen and examined in collaboration with Dr. Blanchard, please see addendum History of Present Illness Chief Complaint: SOB since early a.m. 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 He states shortness of breath woke him up in his sleep. He was lying in bed at time of event. Patient is difficult to obtain history from due to being frustrated and unwillingness to answer questions. He denies any recent fever, chills, sweats, lightheadedness, dizz iness, syncope, chest pain, palpitations, nausea, vomiting, abdominal pain. He denies any weight gain but admits to weight loss. His weight is approximately 208 and he states, "it used to be much higher than that." Of significance patient recently had multiple frequent hospitalizations 02/25 02/28 secondary to acute on chronic heart failure status post thoracentesis 1800 cc removed of transudative fluid. He had a recurrent hospitalization on 03/14-03/18 secondary to return of pleural effusion. At that time patient had 2.2 L of bloody fluid removed which was felt to be likely secondary to initial thoracentesis with possible blood leak and return of fluid. He was last seen on 03/31 in pulmonary office by Dr. Villanueva and states, "had a good report." He also was hospitalized in January 2020 secondary to left foot wound and MRSA. He continues to follow with wound care. He admits to being compliant with his medication but states, "I did not take any medications today." He states he has been taking Lasix 60 mg twice a day as well as potassium supplementation. Prior to this morning he denies any orthopnea or PND. Appetite otherwise diminished. In ED patient was intermittently hypotensive and was requiring 2 L of O2 via NC. At baseline he is on oxygen 2 L. Lab work notable for leukocytosis 12.2k, H&H 12.7 and 42.5, platelet 232, INR 1.8, sodium 134, K5.9, creatinine 1.45, proBNP 4603. He was treated for his hyperkalemia with IV Lasix, 1 g calcium gluconate, 10 units of IV regular insulin. Due to hypertension and hyperkalemia he was given 100mg of Solu-Cortef. Covid 19 negative. CXR: Persistent cardiomegaly and suspected mild pulmonary vascular congestion 2. Persistent bilateral pleural effusions with associated basilar atelectasis/consolidation 3. No significant change when compared with the prior examination Patient does meet SIRS criteria on admission with episode of hypotension, leukocytosis and tachypnea. Allergies Allergy/AdvReac Type Severity Reaction Status Date / Time albuterol Allergy Severe CHOKING Verified 04/02/20 11:22 SENSATION ipratropium Allergy Severe CHOKING Verified 04/02/20 11:22 SENSATION onion Allergy Intermediate RASH Verified 04/02/20 11:22 levofloxacin Allergy Mild other Verified 04/02/20 11:22 spironolactone AdvReac Severe Problems Unverified 04/02/20 11:22 with breathing atorvastatin AdvReac Intermediate Muscle Pain Verified 04/02/20 11:22 metformin AdvReac Intermediate Diarrhea Verified 04/02/20 11:22 Home Medications Home Medications Medication Instructions Recorded Confirmed Type Lantus Solostar U-100 Insulin 25 unit SUBCUT HS 04/11/18 04/02/20 History allopurinol [Zyloprim] 300 mg PO HS 04/11/18 04/02/20 History insulin aspart U-100 [Novolog 1 sliding scale dose SUBCUT AC 04/11/18 04/02/20 History PenFill U-100 Insulin] montelukast [Singulair] 10 mg PO HS 04/11/18 04/02/20 History nitroglycerin 0.4 mg SUBLINGUAL UD PRN 04/11/18 04/02/20 History primidone [Mysoline] 500 mg PO HS 04/11/18 04/02/20 History rosuvastatin [Crestor] 40 mg PO HS 04/11/18 04/02/20 History aspirin 325 mg PO HS 08/08/19 04/02/20 History metoprolol succinate 25 mg PO HS 08/08/19 04/02/20 History ferrous sulfate [iron] 325 mg PO Q OTHER DAY 01/09/20 04/02/20 History polyethylene glycol 3350 [Miralax] 17 g PO DAILY PRN #14 ea 01/28/20 04/02/20 Rx warfarin [Jantoven] 4 mg PO [id number]@209903/14/20 04/02/20 History warfarin [Jantoven] 6 mg PO [id number]@209903/14/20 04/02/20 History furosemide [Lasix] 60 mg PO BID 30 Days #45 tab 03/18/20 04/02/20 Rx potassium chloride 20 meq PO DAILY #30 tab 03/18/20 04/02/20 Rx Past Med/Surg History Medical History Acute on chronic combined systolic (congestive) and diastolic (congestive) heart failure Bronchiectasis Chronic kidney disease stage 3 Chronic left ventricular systolic heart failure Chronic respiratory failure with hypoxia and hypercapnia COPD (chronic obstructive pulmonary disease) Coronary artery disease "S/P inferior AK, severe multivessel disease not amenable to intervention" per 2012 cath Diabetes mellitus, type 2 IDDM GERD (gastroesophageal reflux disease) Gout Hearing deficit BL KOO History of CVA (cerebrovascular accident) "YEARS AGO" - reports he has had a tremor ever since stroke. denies additional residual effects History of depression History of DVT (deep vein thrombosis) "YEARS AGO" ETIOLOGY UNK - ON WARFARIN History of pancreatitis History of pulmonary embolism on detention coumadin History of tachycardia-bradycardia syndrome HLD (hyperlipidemia) Ischemic cardiomyopathy EF 45-49% Kidney stone MRSA infection Myocardial Infarction "YEARS AGO" Nephrolithiasis On home oxygen therapy 2 LPM DAILY PRN (secondary to chronic respiratory failure) Osteoarthritis PAD (peripheral artery disease) PAF (paroxysmal atrial fibrillation) DX "years ago" - ON COUMADIN - FOLLOWS W/ DR. ROYCE Rasmussen historian Seizure QUESTIONABLE- EEG 1 WEEK AGO FOR QUESTIONABLE SEIZURE (reported convulsions, loss of consciousness 1 week ago while watching TV) - [place] [facility] - EEG unremarkable Tremor Surgical History H/O toe surgery "amputation left 3rd and 4th toe 03/2012" History of bronchoscopy History of cardiac cath MULTIPLE - NO STENTS [place] (could not recall dates - most recent in system is from 2011 [place]) History of cholecystectomy History of incision of pericardium pericardial window secondary to pericardial effusion History of pacemaker PLACED 10/2017 FOR [employer] - [employer] - LAST CHECKED 05/2019 History of tonsillectomy S/P cystoscopy with ureteral stent placement 07/25/2019 [facility] Status post creation of pericardial window Family History Mother Alzheimer disease Social History Smoking Status: Former smoker Tobacco Type: Cigarettes Cigarettes Per Day: 4-6 packs. 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 Other Information That Helps Us Care for You: No Feels Safe at Home: Yes Safety Concerns: Feels Safe At This Time Review of Systems Review of Systems: All systems reviewed & are unremarkable except as noted in HPI & below Physical Exam Physical Exam: Constitutional: WD/WN, M, unpleasant, vitals as above, NAD, sitting up in bed Head: Normocephalic, Atraumatic Eyes: PERRL, conjunctivae normal, anicteric sclerae ENMT: external ear and nose normal, oropharynx normal Neck: trachea midline, no thyromegaly normal visual inspection Respiratory: normal respiratory effort, RR 22, Diffuse inspiratory/exp wheezing through all lung lewis, pt states, "this is my norm,"no rales, rhonchi. Normal insp/exp effort, no accessory muscle use Cardiovascular: RRR, no murmur, no edema , b/l chronic venous stasis changes, L heel wound dressing with serosangineous drainage Vessels: no JVD or carotid bruit Chest: normal inspection of chest Abdomen: normal bowel sounds, soft, nontender, no hepatosplenomegaly Musculoskeletal: no cyanosis or clubbing, extremities motor strength 5/5 Skin: no rashes, warm and dry mild turgor Neurologic: PERRL, EOMI, accommodation nl, no face palsy, no dysarthria CN's II-XI intact bilaterally and moves all extremities Psychiatric: A+Ox3, dysthymic affect Lymphatic: no cervical or axillary lymphadenopathy : deferred Results & Data Results & Data ([facility]) Vital Signs (Past 12 Hours) Vital Signs Temp Pulse Resp BP Pulse Ox 04/02/20 13:01 60 18 100 04/02/20 13:00 60 16 109/53 L 100 04/02/20 12:50 60 15 04/02/20 12:45 60 19 96/53 L 04/02/20 12:40 60 19 04/02/20 12:31 61 28 H 04/02/20 12:30 62 24 100 04/02/20 12:20 60 21 100 04/02/20 12:15 60 21 101/49 L 100 04/02/20 12:10 60 21 99 04/02/20 12:01 60 19 100 04/02/20 12:00 60 18 95/48 L 99 04/02/20 11:50 60 21 98 04/02/20 11:45 60 23 98/50 L 98 04/02/20 11:40 61 20 100 04/02/20 11:30 61 25 H 98/49 L 95 04/02/20 11:29 61 21 95/48 L 99 04/02/20 11:20 62 23 100 04/02/20 11:19 63 21 73/50 L 99 04/02/20 11:10 62 17 99 04/02/20 11:01 60 15 04/02/20 11:00 60 19 86/50 L 99 04/02/20 10:50 60 18 99 04/02/20 10:40 63 18 99 04/02/20 10:39 65 15 103/50 L 96 04/02/20 10:38 37.1 C 60 16 103/50 L 98 04/02/20 10:37 71 13 107/54 L 96 Laboratory Results Short CBC 04/02/20 04/02/20 Range/Units 11:37 11:37 WBC 12.22 H (4.8-10.8) K/uL Hgb 12.7 L (14.0-18.0) g/dL Hct 42.5 (42-52) % Plt Count 232 (130-400) K/uL BUN 18 (7-18) mg/dl Creatinine 1.45 H (0.6-1.4) mg/dl NT-Pro-B Natriuret Pep 4603 H (0-900) pg/ml BMP 04/02/20 11:37 Sodium 134 L Potassium 5.9 H Chloride 99 Carbon Dioxide 30 BUN 18 Creatinine 1.45 H Glucose 217 H Calcium 8.4 L Cardiac Enzymes 04/02/20 Range/Units 11:37 Total Creatine Kinase 70 (39-308) U/L CK-MB (CK-2) < 1.0 (0.5-3.6) ng/ml Troponin I < 0.015 (0-0.045) ng/ml Liver Function 04/02/20 Range/Units 11:37 Total Bilirubin 0.4 (0.2-1) mg/dl AST 49 H (15-37) U/L ALT 22 (12-78) U/L Alkaline Phosphatase 188 H (45-117) U/L Albumin 2.4 L (3.4-5.0) gm/dl Diagnostic Findings CXR: Persistent cardiomegaly and suspected mild pulmonary vascular congestion 2. Persistent bilateral pleural effusions with associated basilar atelectasis/consolidation 3. No significant change when compared with the prior examination Medications Administered Discontinued Medications Furosemide (Furosemide 40 Mg/4 Ml Vial) 40 mg IV NOW STA Stop: 04/02/20 10:43 Last Admin: 04/02/20 11:38 Dose: 40 mg Documented by: [id number] Hydrocortisone Sodium Succinate (Hydrocortisone Sod Succinate 100 Mg/2 Ml Vial) 100 mg IV NOW STA Stop: 04/02/20 12:34 Last Admin: 04/02/20 12:59 Dose: 100 mg Documented by: [id number] Sodium Chloride (Nss 1000ml) 500 mls @ 999 mls/hr IV .Q31M ONE Stop: 04/02/20 12:09 Last Admin: 04/02/20 12:58 Dose: 999 mls/hr Documented by: [id number] Calcium Gluconate 1,000 mg/ (Sodium Chloride) 60 mls @ 240 mls/hr IV NOW STA Stop: 04/02/20 12:36 Last Admin: 04/02/20 12:59 Dose: 240 mls/hr Documented by: [id number] Insulin Human Regular (Novolin-R Insulin Per Unit Charge) 10 units IV NOW STA Stop: 04/02/20 12:23 Last Admin: 04/02/20 12:59 Dose: 10 units Documented by: [id number] Cosigned by: [id number] Levalbuterol HCl (Levalbuterol Tartrate 15 Gm Hfa.Aer.Ad) 2 puffs INH NOW STA Stop: 04/02/20 12:34 Last Admin: 04/02/20 12:58 Dose: Not Given Documented by: [id number] Sodium Bicarbonate (Sodium Bicarb 8.4% Inj 50 Meq/50 Ml Syr) 50 meq IV NOW STA Stop: 04/02/20 12:25 Last Admin: 04/02/20 12:59 Dose: 50 meq Documented by: [id number] ECG Rate (beats per minute): 64 Findings: + paced rhythm Code Status & VTE Plan Code Status Full Code VTE Prophylaxis Plan VTE Prophylaxis will be ordered: No Supervising Physician Co-Signing Physician Notes I saw this patient with the physician assistant executive housekeeper, I participated in the history, physical, review of systems, and physical exam. I reviewed the medications with the patient and the physician assistant executive housekeeper and helped reconcile the medications. I helped take a detailed family and social history as well. I formulated the assessment and plan personally with the physician assistant executive housekeeper and went over it with the patient. Physical Exam Gen-AAO x 3, NAD, Afebrile Head-NCAT, EOMI, PERRLA, Anicteric Sclera, No Posterior Pharyngeal Erythema Neck-Supple, No JVD, No Thyromegaly, No Masses, No LAD, No Bruits Lungs-Clear to Auscultation Bilaterally, No Rales, No Rhonchi, No Wheezing, No Crepitus Chest-No S4, +S1, +S2, No S3, No Murmurs, No Rubs, No Gallops, No Ectopy Abdomen-Soft, Bowel Sounds Present, Non Tender, Non Distended, No Hepatomegaly, No Splenomegaly, No Palpable Masses, No Rebound, No Rigidity, No Guarding Musculoskeletal-Full Range of Motion Bilaterally, No CVAT Extremities-No Cyanosis, No Clubbing, No Edema Nuero-Cranial Nerves II-XII grossly intact, Motor WNL, DTRs WNL, Strength WNL, Non Focal Psych-Normal Mood (1) COPD (chronic obstructive pulmonary disease) COPD type: unspecified COPD Qualified Code(s): J44.9 - Chronic obstructive pulmonary disease, unspecified
[2020-04-02] MEDS ORDERED: POLYETHYLENE (MIRALAX) 17 GM PACK PO PRN (14:19)
[2020-04-02] MEDS ORDERED: DEXTROSE 50% 50 ML SYRINGE IV PRN (14:19)
[2020-04-02] MEDS ORDERED: GLUCOSE 40% GEL 15 GM TUBE PO PRN (14:19)
[2020-04-02] MEDS ORDERED: MAGNESIUM HYDROXIDE SUSP 30 ML UDC PO PRN (14:19)
[2020-04-02] MEDS ORDERED: ONDANSETRON INJ 2 MG/ML 2 ML VIAL IV PRN (14:19)
[2020-04-02] MEDS ORDERED: ALUMINUM/MAGNESIUM SUSP 30 ML UDC PO PRN (14:19)
[2020-04-02] MEDS ORDERED: CARBOHYDRATES FOR HYPOGLYCEMIA PO PRN (14:19)
[2020-04-02] MEDS ORDERED: VANCOMYCIN CONSULT ACTIVE PRN (14:19)
[2020-04-02] MEDS ORDERED: GLUCOSE 10 TABS/TUBE PO PRN (14:19)
[2020-04-02] MEDS ORDERED: GLUCAGON FOR INJ 1 MG VIAL SQ PRN (14:19)
[2020-04-02] MEDS ORDERED: ACETAMINOPHEN 325 MG TAB PO PRN (14:19)
[2020-04-02] MEDS ORDERED: PIPERACILL/TAZOBAC CONSULT ACTIVE PRN (14:19)
[2020-04-02 14:31] LABS: Appearance Urine Clear (Clear); Bacteria Urine Automated Negative (Negative); Bilirubin Urine Negative (Negative); Blood Urine Negative (Negative); Color Urine Yellow; Epithelial Cell Urine Auto >30 /lpf (0-5); Glucose Urine UA Negative (Negative); Ketones Urine Negative (Negative); Leukocyte Esterase Urine Negative (Negative); Nitrite Urine Negative (Negative); RBC Urine Automated 0-4 /hpf (0-4); Specific Gravity Urine 1.014 (1.000-1.030); Urobilinogen Urine Negative (Negative); pH Urine 7.5 (4.5-7.5)
[2020-04-02 14:44] LABS: Protein Urine 1+ (Negative); Sulfosalicylic Acid Urine Positive (Negative)
[2020-04-02] MEDS ORDERED: PIPERACILLIN/TAZOBACTAM 3.375 GM in DEXTROSE 5% 100 ML IV ONE (15:15)
[2020-04-02 15:24] LABS: BUN Creatinine Ratio 13.8 (10-20); Calcium 8.8 mg/dl (8.5-10.1); Creatinine Clr Calc Pharmacy 59.8 ml/min; Est GFR (African American) 59.3; Est GFR (Non-African American) 51.2
[2020-04-02 15:25] LABS: Potassium 4.4 mmol/L (3.5-5.1)
[2020-04-02] MEDS ORDERED: VANCOMYCIN HCL 2,250 MG in SODIUM CHLORIDE 0.9% 500 ML IV SCH (15:30)
[2020-04-02] MEDS: WARFARIN SOD 6 MG TAB PO SCH (17:27)
[2020-04-02] MEDS: FUROSEMIDE 40 MG in SYRINGE 0 ML IV SCH (17:27)
[2020-04-02] MEDS: INSULIN ASPART 100 UNITS/ML 3 ML PEN SC SCH ×2 (17:28→20:43)
[2020-04-02] MEDS: PIPERACILLIN/TAZOBACTAM 3.375 GM in DEXTROSE 5% 100 ML IV SCH (20:30)
[2020-04-02] MEDS: ASPIRIN 325 MG ECTAB PO SCH (20:30)
[2020-04-02] MEDS: METOPROLOL SUCC 25MG EXT REL TAB PO SCH (20:30)
[2020-04-02] MEDS: MONTELUKAST SODIUM 10 MG TABLET PO SCH (20:30)
[2020-04-02] MEDS: allopurinoL 300 MG TAB PO SCH (20:30)
[2020-04-02] MEDS: PRIMIDONE 250 MG TAB PO SCH (20:30)
[2020-04-02] MEDS: ROSUVASTATIN CALCIUM 20 MG TAB PO SCH (20:30)
[2020-04-02] MEDS: INSULIN GLARGINE SOLOSTAR 100 UNITS/ML 3 ML PEN SC SCH (20:42)
--- NOTE | 2020-04-02 22:37 | Electrocardiogram Report ---
Test Reason : Blood Pressure : / mmHG Vent. Rate : 064 BPM Atrial Rate : 065 BPM P-R Int : 210 ms QRS Dur : 094 ms QT Int : 402 ms P-R-T Axes : 062 047 062 degrees QTc Int : 414 ms Poor data quality, interpretation may be adversely affected Atrial-paced rhythm with prolonged AV conduction Nonspecific T wave abnormality Abnormal ECG When compared with ECG of 14-MAR-2020 15:15, Electronic atrial pacemaker has replaced Sinus rhythm Nonspecific T wave abnormality no longer evident in Inferior leads QT has shortened Confirmed by Serjio Huitron ([id number]) on 04/02/2020 10:37:32 PM Referred By: [id number] Confirmed By:Serjio Huitron
[2020-04-03] MEDS: PIPERACILLIN/TAZOBACTAM 3.375 GM in DEXTROSE 5% 100 ML IV SCH ×3 (04:23→20:59)
[2020-04-03 07:42] LABS: Basophils # (auto) 0.01 K/uL (0-0.2); Basophils % (auto) 0.1 %; Eosinophils # (auto) 0.17 K/uL (0-0.5); Eosinophils % (auto) 1.8 %; Hematocrit (blood only) 37.2 % (42-52); Hemoglobin 11.8 g/dL (14.0-18.0); Immature Granulocytes # (auto) 0.03 K/uL (0.00-0.02); Immature Granulocytes % (auto) 0.3 %; Lymphocytes # (auto) 1.24 K/uL (1.2-3.4); Lymphocytes % (auto) 12.8 %; Mean Corpuscular Hemoglobin 29.7 pg (25-34); Mean Corpuscular Hgb Conc 31.7 g/dL (32-36); Mean Corpuscular Volume 93.7 fL (80-100); Monocytes # (auto) 0.63 K/uL (0.11-0.59); Monocytes % (auto) 6.5 %; Neutrophils # (auto) 7.63 K/uL (1.4-6.5); Neutrophils % (auto) 78.5 %; Platelet Count 189 K/uL (130-400); RDW Coefficient of Variation 13.8 % (11.5-14.5); Red Blood Count 3.97 M/uL (4.7-6.1); White Blood Count 9.71 K/uL (4.8-10.8)
[2020-04-03 07:53] LABS: INR 1.7 (0.9-1.1); Prothrombin Time 17.2 Seconds (9.0-12.0)
[2020-04-03 08:11] LABS: Albumin Level 2.2 gm/dl (3.4-5.0); BUN Creatinine Ratio 16.2 (10-20); Calcium 8.9 mg/dl (8.5-10.1); Creatinine Clr Calc Pharmacy 58.5 ml/min; Est GFR (African American) 57.8; Est GFR (Non-African American) 49.8; Magnesium 1.8 mg/dl (1.8-2.4); Potassium 4.1 mmol/L (3.5-5.1)
[2020-04-03 08:14] LABS: Albumin Globulin Ratio 0.4 (0.9-2); Bilirubin,Total 0.5 mg/dl (0.2-1); Globulin 5.1 gm/dl (2.5-4.0); Total Protein 7.3 gm/dl (6.4-8.2)
[2020-04-03] MEDS: FUROSEMIDE 40 MG in SYRINGE 0 ML IV SCH (08:23)
[2020-04-03] MEDS: INSULIN ASPART 100 UNITS/ML 3 ML PEN SC SCH ×4 (08:24→21:07)
[2020-04-03] MEDS: INSULIN GLARGINE SOLOSTAR 100 UNITS/ML 3 ML PEN SC SCH ×2 (08:24→21:04)
[2020-04-03] MEDS ORDERED: FERROUS SULFATE 325 MG TAB PO SCH (09:00)
--- NOTE | 2020-04-03 09:54 | Pharmacy Report ---
Pharmacy Abx Initial Consult - Date of Service April 03, 2020 - Pharmacy Dosing Scope Date of Consult: [] Consultation requested by: [] Pharmacy is consulted to initiate [] IV/PO dosing therapy, order appropriate labs and adjust drug dose/frequency. - Subjective The patient is a 74 year old M admitted on 04/02/20 12:41. - Objective Height: 6 ft 1 in Weight: 96.8 kg Vital Signs (Past 12hrs): Vital Signs Temp Pulse Pulse Resp BP Pulse Ox 04/03/20 07:42 36.3 C L 73 20 104/65 98 04/03/20 04:00 36.3 C L 60 18 113/66 100 04/02/20 23:56 36.8 C 60 18 100/61 97 Lab Results (24hrs): Laboratory Tests (24 Hours) 04/03/20 04/03/20 04/02/20 07:01 07:01 14:33 WBC 9.71 Neut # (Auto) 7.63 H Creatinine 1.40 1.37 Est Cr Clr Drug Dosing 58.5 59.8 Total Creatine Kinase Procalcitonin 04/02/20 04/02/20 04/02/20 11:41 11:37 11:37 WBC 12.22 H Neut # (Auto) 10.72 H Creatinine 1.45 H Est Cr Clr Drug Dosing 56.5 Total Creatine Kinase 70 Procalcitonin 0.25 Micro Results: 04/02/20 14:43 Aerobic Blood Culture - Pending Blood Anaerobic Blood Culture - Pending 04/02/20 14:33 Aerobic Blood Culture - Pending Blood Anaerobic Blood Culture - Pending - Risk Factors for Resistance * Hospitalization for 48 hours or more within the past 90 days * Multiple * History of infection with a multidrug-resistant organism: * 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 Multiple admissions for HF in the past 3 months. * Empirically ordered vancomycin and zosyn. * Afebrile. Mild leukocytosis of 12k. Renal fxn elevated from baseline. PCT negative. * Blood cultures pending. Plan Vancomycin + Zosyn empirically Vancomycin IV * Estimated PK Parameters: Andrew 0.053 hr-1, t1/2 13 hrs * Loading dose: 2250 mg (23 mg/kg) * Maintenance dose: 1500 mg IV (15 mg/kg) every 16 hours * Goal trough level: 15 to 20 mcg/mL * No trough ordered given empiric indication and 48 hour stop date. If therapy extends beyond 48 hours will order a trough. Piperacillin/tazobactam * 3.375 g bolus administered over 30 minutes, then 3.375 g IV extended infusion every 8 hours for CrCl greater than 20 mL/min Pharmacy will continue to follow and will adjust dose/frequency as necessary. Thank you.
[2020-04-03] MEDS ORDERED: VANCOMYCIN HCL 1,500 MG in SODIUM CHLORIDE 0.9% 500 ML IV SCH (10:00)
--- NOTE | 2020-04-03 10:32 | Cardiology Consultation ---
Date of Consultation April 03, 2020 Assessment & Plan (1) Acute on chronic combined systolic (congestive) and diastolic (congestive) heart failure: (2) COPD with exacerbation: (3) Pleural effusion: Respiratory status improved with IV Lasix, however, active wheeze noted. Orthopnea resolved. Patient has received a total of 3 doses of furosemide since yesterday. Fluid balance reported as positive, however, creatinine trending upward. Appears to be at dry weight from review of records. I will hold his evening dose of IV Lasix tonight with repeat basic metabolic panel in a.m. With evidence of hyperkalemia on admission, I would not retrial Aldactone at this time. Also patient prefers to remain off this medication. Dose Coumadin for goal INR of 2.0-3.0. No other medication changes from a cardiovascular perspective. Antibiotics and treatment of COPD exacerbation as per primary care. Blood cultures pending at this time. History of Present Illness Reason for Consultation: Acute decompensated heart failure, pleural effusions Requesting Physician: Dr. Gonzalez Attending Physician: Ernesto Gonzalez MD History of Present Illness 74-year-old patient presented to the emergency department with shortness of breath and orthopnea. Patient recently hospitalized, approximately 2 weeks ago, with similar symptoms, acute heart failure, bilateral pleural effusion status post thoracentesis. Patient became acutely short of breath on Monday evening. Came to the emergency department on for further evaluation. X-ray unchanged compared to discharge x-ray 03/18/2020. His weight also is stable per home scale at 208 pounds. He was treated with IV diuretic therapy, Lasix 60 mg in the ER and 40 mg this morning. Creatinine trending upward to 1.4. Lasix reduced to 40 mg daily by primary care. Aldactone discontinued due to patient preference and perceived side effect of shortness of breath after recent hospitalization. Currently resting comfortably and lying supine. No significant lower extremity edema. Denies paroxysmal nocturnal dyspnea overnight. Reports cough with out sputum production. He is wheezing currently, however, states this is not unusual for him. Denies chest discomfort or heaviness. Troponin undetectable on admission. ECG demonstrates atrial paced rhythm without ischemic changes. INR subtherapeutic. Allergies Allergy/AdvReac Type Severity Reaction Status Date / Time albuterol Allergy Severe CHOKING Verified 04/02/20 11:22 SENSATION ipratropium Allergy Severe CHOKING Verified 04/02/20 11:22 SENSATION onion Allergy Intermediate RASH Verified 04/02/20 11:22 levofloxacin Allergy Mild other Verified 04/02/20 11:22 spironolactone AdvReac Severe Problems Unverified 04/02/20 11:22 with breathing atorvastatin AdvReac Intermediate Muscle Pain Verified 04/02/20 11:22 metformin AdvReac Intermediate Diarrhea Verified 04/02/20 11:22 Home Medications Home Medications Medication Instructions Recorded Confirmed Type Lantus Solostar U-100 Insulin 25 unit SUBCUT HS 04/11/18 04/02/20 History allopurinol [Zyloprim] 300 mg PO HS 04/11/18 04/02/20 History insulin aspart U-100 [Novolog 1 sliding scale dose SUBCUT AC 04/11/18 04/02/20 History PenFill U-100 Insulin] montelukast [Singulair] 10 mg PO HS 04/11/18 04/02/20 History nitroglycerin 0.4 mg SUBLINGUAL UD PRN 04/11/18 04/02/20 History primidone [Mysoline] 500 mg PO HS 04/11/18 04/02/20 History rosuvastatin [Crestor] 40 mg PO HS 04/11/18 04/02/20 History aspirin 325 mg PO HS 08/08/19 04/02/20 History metoprolol succinate 25 mg PO HS 08/08/19 04/02/20 History ferrous sulfate [iron] 325 mg PO Q OTHER DAY 01/09/20 04/02/20 History polyethylene glycol 3350 [Miralax] 17 g PO DAILY PRN #14 ea 01/28/20 04/02/20 Rx warfarin [Jantoven] 4 mg PO MOWEFR@209903/14/20 04/02/20 History warfarin [Jantoven] 6 mg PO SUTUTHSA@209903/14/20 04/02/20 History furosemide [Lasix] 60 mg PO BID 30 Days #45 tab 03/18/20 04/02/20 Rx potassium chloride 20 meq PO DAILY #30 tab 03/18/20 04/02/20 Rx Patient History Medical History Acute on chronic combined systolic (congestive) and diastolic (congestive) heart failure Bronchiectasis Chronic kidney disease stage 3 Chronic left ventricular systolic heart failure Chronic respiratory failure with hypoxia and hypercapnia COPD (chronic obstructive pulmonary disease) Coronary artery disease "S/P inferior ND, severe multivessel disease not amenable to intervention" per 2012 cath Diabetes mellitus, type 2 IDDM GERD (gastroesophageal reflux disease) Gout Hearing deficit BL KOO History of CVA (cerebrovascular accident) "YEARS AGO" - reports he has had a tremor ever since stroke. denies additional residual effects History of depression History of DVT (deep vein thrombosis) "YEARS AGO" ETIOLOGY UNK - ON WARFARIN History of pancreatitis History of pulmonary embolism on longterm coumadin History of tachycardia-bradycardia syndrome HLD (hyperlipidemia) Ischemic cardiomyopathy EF 45-49% Kidney stone MRSA infection Myocardial Infarction "YEARS AGO" Nephrolithiasis On home oxygen therapy 2 LPM DAILY PRN (secondary to chronic respiratory failure) Osteoarthritis PAD (peripheral artery disease) PAF (paroxysmal atrial fibrillation) DX "years ago" - ON COUMADIN - FOLLOWS W/ DR. ROYCE Rasmussen historian Seizure QUESTIONABLE- EEG 1 WEEK AGO FOR QUESTIONABLE SEIZURE (reported convulsions, loss of consciousness 1 week ago while watching TV) - [place] [facility] - EEG unremarkable Tremor Surgical History H/O toe surgery "amputation left 3rd and 4th toe 03/2012" History of bronchoscopy History of cardiac cath MULTIPLE - NO STENTS [place] (could not recall dates - most recent in system is from 2011 [place]) History of cholecystectomy History of incision of pericardium pericardial window secondary to pericardial effusion History of pacemaker PLACED 10/2017 FOR [facility] - [employer] - LAST CHECKED 05/2019 History of tonsillectomy S/P cystoscopy with ureteral stent placement 07/25/2019 [facility] Status post creation of pericardial window Family History Mother Alzheimer disease Social History Smoking Status: Former smoker Tobacco Type: Cigarettes Cigarettes Per Day: 4-6 packs. 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 Other Information That Helps Us Care for You: No Feels Safe at Home: Yes Safety Concerns: Feels Safe At This Time Review of Systems Review of Systems: All systems reviewed & are unremarkable except as noted in HPI & below Physical Exam Constitutional: + ill appearing and + obese; no acute distress Respiratory: no labored breathing, no retractions and does not use accessory muscles Auscultation: + diminished lung sounds (B/L), + crackles (left base), + rhonchi (scattered B/L) and + wheezes (diffuse expiratory) Cardiovascular: Rate/Rhythm: regular rate and regular rhythm Heart Sounds: normal S1 and normal S2; no murmur Palpation: normal PMI Vessels: no JVD Extremities: + edema (1+ B/L pedal and ankle edema with stasis changes) Gastrointestinal (Abdomen): Inspection/Auscultation: abdomen normal to inspection and normal bowel sounds; abdomen not distended Percussion/Palpation: abdomen soft; abdomen nontender, no guarding and abdomen not rigid Neurologic: CN's II-XI intact bilaterally and moves all extremities; no focal motor deficits Speech / Cognition: normal speech Motor/Sensory: no tremor Psychiatric: A+Ox3, euthymic affect Results & Data ([facility]) Vital Signs (Past 12 Hours) Vital Signs Temp Pulse Pulse Resp BP Pulse Ox 04/03/20 07:42 36.3 C L 73 20 104/65 98 04/03/20 04:00 36.3 C L 60 18 113/66 100 04/02/20 23:56 36.8 C 60 18 100/61 97
[2020-04-03] MEDS ORDERED: WARFARIN SOD 4 MG TAB PO SCH (16:00)
[2020-04-03] MEDS: ROSUVASTATIN CALCIUM 20 MG TAB PO SCH (21:01)
[2020-04-03] MEDS: MONTELUKAST SODIUM 10 MG TABLET PO SCH (21:02)
[2020-04-03] MEDS: ASPIRIN 325 MG ECTAB PO SCH (21:02)
[2020-04-03] MEDS: METOPROLOL SUCC 25MG EXT REL TAB PO SCH (21:03)
[2020-04-03] MEDS: PRIMIDONE 250 MG TAB PO SCH (21:03)
[2020-04-03] MEDS: allopurinoL 300 MG TAB PO SCH (21:15)
--- NOTE | 2020-04-03 23:43 | Hospitalist Progress Note ---
Date of Service April 03, 2020 Assessment & Plan (1) Acute on chronic combined systolic (congestive) and diastolic (congestive) heart failure: History combined left ventricular systolic and diastolic heart failure. Echo Feb 2020 showed LVEF 40-50% with segmental wall motion abnormalities. Chest x-ray and elevated pro-BNP consistent with acute on chronic left ventricular systolic and diastolic heart failure. Cardiology consulted. Improved with IV furosemide. (2) Coronary artery disease: No anginal symptoms. Troponin normal. (3) Hypotension: Hypotension in ED, resolved. Did not appear to be septic. Procalcitonin normal. (4) COPD with exacerbation: Worsening dyspnea and bronchospasm probably due to CHF. (5) Chronic respiratory failure with hypoxia and hypercapnia: Continue supplemental O2. (6) History of pulmonary embolism: Continue warfarin. (7) Hyperkalemia: K in ED 5.9. On KCl 20 mEq daily. Random cortisol normal. K today 4.1. (8) Venous stasis ulcers of both lower extremities: Seen by Wound Care Nursing. (9) DVT prophylaxis: Continue warfarin. Ambulate. (10) Discharge planning issues: Anticipated discharge to home. Internal Medicine follow-up with Dr. Mortensen. Admission and Anticipated Discharge Date Admission Date: April 02, 2020 Subjective Recheck for multiple problems. Patient seen in their room around 1810. Presented to ED yesterday with SOB and other concerns. Feels better today. No fever. No cough. Less SOB. Chronic wheezing at baseline. No chest pain. Lower extremity edema improved. Review of Systems: Constitutional- no fever. Cardiac- as noted above. Pulmonary- as noted above. GI- no nausea, vomiting, diarrhea, melena, hematochezia. - no urinary symptoms. Otherwise, as noted above. Physical Exam Constitutional: no acute distress Respiratory: no respiratory distress Auscultation: + wheezes (diffuse, mild) Cardiovascular: Rate/Rhythm: regular rate and regular rhythm Heart Sounds: no gallop, no murmur and no cardiac rub Vessels: no JVD Extremities: + edema (1+ pretibial, 1-2+ pedal); no calf tenderness Gastrointestinal (Abdomen): normal bowel sounds, soft, nontender, no hepatosplenomegaly Musculoskeletal: Extremities: no cyanosis Skin: no rashes, warm and dry Psychiatric: Orientation: alert and oriented x 3 Results & Data Results & Data ([facility]) Vital Signs (Past 12 Hours) Vital Signs Temp Pulse Resp BP Pulse Ox 04/03/20 23:17 36.5 C 77 18 117/76 100 04/03/20 19:33 36.5 C 60 18 109/74 98 04/03/20 15:25 36.5 C 62 16 93/58 L 93 04/03/20 12:22 36.4 C L 65 20 125/76 98 Laboratory Results 04/03/20 07:01 04/03/20 07:01 (1) Hypotension Hypotension type: other hypotension type Qualified Code(s): I95.89 - Other hypotension
[2020-04-04] MEDS ORDERED: VANCOMYCIN HCL 1,500 MG in SODIUM CHLORIDE 0.9% 500 ML IV SCH (02:00)
[2020-04-04] MEDS: PIPERACILLIN/TAZOBACTAM 3.375 GM in DEXTROSE 5% 100 ML IV SCH ×2 (04:46→12:00)
[2020-04-04 07:28] LABS: Hematocrit (blood only) 35.7 % (42-52); Mean Corpuscular Hemoglobin 28.5 pg (25-34); Mean Corpuscular Hgb Conc 30.8 g/dL (32-36); Mean Corpuscular Volume 92.5 fL (80-100); Mean Platelet Volume 9.7 fL (7.4-10.4); Platelet Count 176 K/uL (130-400); RDW Standard Deviation 47.4 fL (36.4-46.3); Red Blood Count 3.86 M/uL (4.7-6.1); White Blood Count 6.33 K/uL (4.8-10.8)
[2020-04-04 07:37] LABS: INR 1.8 (0.9-1.1); Prothrombin Time 18.8 Seconds (9.0-12.0)
[2020-04-04 08:06] LABS: Calcium 8.2 mg/dl (8.5-10.1); Creatinine Clr Calc Pharmacy 71.2 ml/min; Est GFR (African American) 73.3; Est GFR (Non-African American) 63.2; Potassium 3.6 mmol/L (3.5-5.1)
[2020-04-04] MEDS: INSULIN GLARGINE SOLOSTAR 100 UNITS/ML 3 ML PEN SC SCH (08:06)
[2020-04-04] MEDS: INSULIN ASPART 100 UNITS/ML 3 ML PEN SC SCH ×3 (08:07→16:46)
--- NOTE | 2020-04-04 09:47 | XRay Report ---
SINGLE VIEW CHEST CLINICAL HISTORY: Congestive heart failure. FINDINGS: An AP, portable, upright chest radiograph is compared to study dictated 04/02/2020 and corre lated with chest CT dated 03/17/2020. The examination is degraded by portable technique and patient rot ation. A 2-lead cardiac pacemaker is unchanged in position and partially obscures the left mid chest. The heart is mildly enlarged. Mild pulmonary vascular congestion persists. A small loculated pleural effusion at the right lung base with right basilar opacities is similar to previous. There is also a small layering left pleural effusion with left basilar consolidation. No pneumothorax is seen. The s keletal structures are osteopenic. There are healed right-sided rib fractures. Cholecystectomy clips are noted in the right upper quadrant. IMPRESSION: 1. Cardiomegaly and cardiac pacemaker. Mild pulmonary vascular congestion is similar in appearance to 04/02/2020. 2. Bilateral pleural effusions and bibasilar opacities are also unchanged. ACT 112: Negative or not required by law. Electronically signed by: John Mackay M.D. 04/04/2020 9:46 AM
--- NOTE | 2020-04-04 10:58 | Cardiology Progress Note ---
Date of Service April 04, 2020 Assessment & Plan (1) Acute on chronic combined systolic (congestive) and diastolic (congestive) heart failure: Currently does not appear volume overloaded by exam with improvement after initial treatment with IV diuretics. Will resume oral diuretics at furosemide 60 mg/day, resume potassium 20 mEq/day. Patient previously and currently declines Spironolactone (2) COPD with exacerbation: Baseline disease present with chronic O2 demands High risk for recurrent symptoms and readmissions (3) Pleural effusion: Admission and Anticipated Discharge Date Admission Date: April 02, 2020 Subjective Patient seen and examined, chart, medications, telemetry reviewed. Overall feels breathing has improved since hospitalization. Still with coarse rhonchorous cough but nonproductive. No peripheral edema or abdominal bloating. Has apparent superficial phlebitis left arm Physical Exam Constitutional: + ill appearing (Chronically); no acute distress Eyes: PERRL, conjunctivae normal, anicteric sclerae ENMT: external ear and nose normal, oropharynx normal Neck: trachea midline, no thyromegaly Respiratory: Bilateral wheezes and coarse rhonchi with forced cough and deep inspiration Cardiovascular: Rate/Rhythm: regular rate and regular rhythm Heart Sounds: normal S1 and normal S2; no gallop and no murmur Palpation: normal PMI Vessels: normal carotid upstroke and radial pulses present; no JVD and no carotid bruit Extremities: no edema Gastrointestinal (Abdomen): normal bowel sounds, soft, nontender, no hepatosplenomegaly Musculoskeletal: no cyanosis or clubbing, extremities motor strength 5/5 Left arm with skin tear and phlebitis at IV site Skin: no rashes, warm and dry Neurologic: PERRL, EOMI, accommodation nl, no face palsy, no dysarthria Psychiatric: A+Ox3, euthymic affect Results & Data ([facility]) Vital Signs (Past 12 Hours) Vital Signs Temp Pulse Pulse Resp BP Pulse Ox 04/04/20 04:57 76 20 91 04/04/20 02:32 60 04/03/20 23:17 36.5 C 77 18 117/76 100 Laboratory Results Laboratory Results - last 24 hr 04/03/20 04/04/20 04/04/20 11:16 06:46 06:46 WBC 6.33 RBC 3.86 L Hgb 11.0 L Hct 35.7 L MCV 92.5 MCH 28.5 MCHC 30.8 L RDW Std Deviation 47.4 H RDW Coeff of Lizet 14.0 Plt Count 176 MPV 9.7 PT 18.8 H INR 1.8 H Sodium Potassium Chloride Carbon Dioxide Anion Gap BUN Creatinine Est Cr Clr Drug Dosing Est GFR ( Amer) Est GFR (Non-Af Amer) BUN/Creatinine Ratio Glucose POC Glucose 119 H Calcium 04/04/20 04/04/20 06:46 07:17 WBC RBC Hgb Hct MCV MCH MCHC RDW Std Deviation RDW Coeff of Lizet Plt Count MPV PT INR Sodium 134 L Potassium 3.6 Chloride 100 Carbon Dioxide 28 Anion Gap 6.0 BUN 23 H Creatinine 1.15 Est Cr Clr Drug Dosing 71.2 Est GFR ( Amer) 73.3 Est GFR (Non-Af Amer) 63.2 BUN/Creatinine Ratio 20.0 Glucose 135 H POC Glucose 133 H Calcium 8.2 L
[2020-04-04] MEDS ORDERED: FUROSEMIDE 20 MG TAB PO SCH (11:15)
[2020-04-04] MEDS ORDERED: POTASSIUM CHLORIDE 20 MEQ TABCR PO SCH (11:15)
--- NOTE | 2020-04-04 15:30 | Hospitalist Progress Note ---
Date of Service April 04, 2020 Assessment & Plan (1) Acute on chronic combined systolic (congestive) and diastolic (congestive) heart failure: History combined left ventricular systolic and diastolic heart failure. Echo Feb 2020 showed LVEF 40-50% with segmental wall motion abnormalities. Chest x-ray and elevated pro-BNP consistent with acute on chronic left ventricular systolic and diastolic heart failure. Cardiology consulted. Improved with IV furosemide. Recent diuretic changes reviewed. Clinic 03/04/20 furosemide 40 mg BID spironolactone 12.5 mg daily (pt opted not to take due to potential side effects) KCl 10 mEq daily [facility] admitted 03/14/20 with CHF. furosemide 40 mg BID [facility] discharged 03/18/20 furosemide 60 mg BID KCl 20 mEq daily Clinic visit 03/25/20 furosemide changed to 40 mg daily + PM dose PRN KCl 20 mEq daily [facility] readmitted with worsening CHF new dose @ DC furosemide 60 mg daily + PM dose PRN KCl 20 mEq daily Continue metoprolol succinate. No VIOLETTA or ARB because of hyperkalemia. CHF instructions given. (2) Hypotension: Hypotension in ED, resolved. Did not appear to be septic. Procalcitonin normal. (3) Hyperkalemia: K in ED 5.9. On KCl 20 mEq daily. Random cortisol normal. Repeat K 4.4, 4.1, 3.6. Spironolactone prescribed in February- discontinued. Hyperkalemia in ED could have been due to hemolysis or transient. Furosemide dose being increased. Discharge on KCl 20 mEq daily. Follow closely in clinic. (4) Coronary artery disease: No anginal symptoms. Troponin normal. (5) PAF (paroxysmal atrial fibrillation): Currently in paced rhythm. Continue metoprolol and warfarin. (6) COPD with exacerbation: Worsening dyspnea and bronchospasm probably due to CHF. (7) Chronic respiratory failure with hypoxia and hypercapnia: Continue home O2. (8) Pleural effusion: Persistent bilateral pleural effusions. Thoracentesis 02/26/20 pleural fluid protein 3.2, serum protein 7.3, pleural:serum ratio 0.44; cytology neg; cultures neg Thoracentesis 03/14/20 cultures neg; cytology neg Continue management of CHF as outlined above. Follow. (9) Abnormal CT scan, chest: CT chest [facility] 03/17/20: "Moderate right lower lobe and right middle lobe airspace opacity. This could reflect consolidation or atelectasis. A neoplastic process is considered less likely however a follow-up chest CT in 3 months is recommended." (10) History of pulmonary embolism: Continue warfarin. (11) Diabetes mellitus, type 2: Hgb A1c 5.9 02/26/20. FBS today = 133. Discharge on usual regimen. (12) Venous stasis ulcers of both lower extremities: Seen by Wound Care Nursing. Has f[facility]u appt [facility] 04[facility]. Advised to have skin tear LUE rechecked at that time. (13) DVT prophylaxis: Continue warfarin. Ambulate. (14) Discharge planning issues: Discharge to home. Internal Medicine follow-up with Dr. Mortensen. Cardiology follow-up with Dr. Suarez. Wound care follow-up with [facility]. Warfarin management with [facility]. Admission and Anticipated Discharge Date Admission Date: April 02, 2020 Subjective Recheck for multiple problems. Patient seen in their room around 1430. Feels better and would like to go home. No fever. Dyspnea improved, back to baseline. Chronic wheezing = baseline. O2 sats > 90 on RA. No chest pain. Skin tear left arm @ IV site. Physical Exam Constitutional: no acute distress Respiratory: no respiratory distress Auscultation: + wheezes (diffuse, mild) Cardiovascular: Rate/Rhythm: regular rate and regular rhythm Heart Sounds: no gallop, no murmur and no cardiac rub Vessels: + JVD Extremities: + edema (1+ pretibial, 1-2+ pedal); no calf tenderness Gastrointestinal (Abdomen): normal bowel sounds, soft, nontender, no hepatosplenomegaly Musculoskeletal: Extremities: no cyanosis Skin: no rashes, warm and dry Psychiatric: Orientation: alert and oriented x 3 Results & Data Results & Data ([facility]) Vital Signs (Past 12 Hours) Vital Signs Temp Pulse Resp BP Pulse Ox 04/04/20 11:23 36.4 C L 67 20 119/76 98 04/04/20 04:57 76 20 91 Laboratory Results 04/04/20 06:46 04/04/20 06:46 (1) Hypotension Hypotension type: other hypotension type Qualified Code(s): I95.89 - Other hypotension
[2020-04-04] MEDS: WARFARIN SOD 6 MG TAB PO SCH (16:54)
--- NOTE | 2020-04-05 08:35 | Discharge Summary ---
Date of Service Date of Admission: 04/02/20 Date of Discharge: 04/04/20 Admission HPI Per Admitting Provider This is a 74 year old white male with significant PMH of Chronic ischemic heart disease with Chronic HFpEF most recent echo 02/2020 EF 45-50%, PAF, hx of PE on detention coumadin, HLD, IDDM, COPD, bronchiectasis, CKD3, tachybradycardia syndrome status post PPM, PAD who presents to [facility] 2/2 SOB that started early this morning. He states shortness of breath woke him up in his sleep. He was lying in bed at time of event. Patient is difficult to obtain history from due to being frustrated and unwillingness to answer questions. He denies any recent fever, chills, sweats, lightheadedness, dizziness, syncope, chest pain, palpitations, nausea, vomiting, abdominal pain. He denies any weight gain but admits to weight loss. His weight is approximat kenny 208 and he states, "it used to be much higher than that." Of significance patient recently had multiple frequent hospitalizations 02/25 02/28 secondary to acute on chronic heart failure status post thoracentesis 1800 cc removed of transudative fluid. He had a recurrent hospitalization on 03/14-03/18 secondary to return of pleural effusion. At that time patient had 2.2 L of bloody fluid removed which was felt to be likely secondary to initial thoracentesis with possible blood leak and return of fluid. He was last seen on 03/31 in pulmonary office by Dr. Villanueva and states, "had a good report." He also was hospitalized in January 2020 secondary to left foot wound and MRSA. He continues to follow with wound care. He admits to being compliant with his medication but states, "I did not take any medications today." He states he has been taking Lasix 60 mg twice a day as well as potassium supplementation. Prior to this morning he denies any orthopnea or PND. Appetite otherwise diminished. In ED patient was intermittently hypotensive and was requiring 2 L of O2 via NC. At baseline he is on oxygen 2 L. Lab work notable for leukocytosis 12.2k, H&H 12.7 and 42.5, platelet 232, INR 1.8, sodium 134, K5.9, creatinine 1.45, proBNP 4603. He was treated for his hyperkalemia with IV Lasix, 1 g calcium gluconate, 10 units of IV regular insulin. Due to hypertension and hyperkalemia he was given 100mg of Solu-Cortef. Covid 19 negative. CXR: Persistent cardiomegaly and suspected mild pulmonary vascular congestion 2. Persistent bilateral pleural effusions with associated basilar atelectasis/ consolidation 3. No significant change when compared with the prior examination Patient does meet SIRS criteria on admission with episode of hypotension, leukocytosis and tachypnea. Principal Diagnosis acute on chronic left ventricular systolic and diastolic heart failure Discharge Data Allergies Allergy/AdvReac Type Severity Reaction Status Date / Time albuterol Allergy Severe CHOKING Verified 04/02/20 11:22 SENSATION ipratropium Allergy Severe CHOKING Verified 04/02/20 11:22 SENSATION onion Allergy Intermediate RASH Verified 04/02/20 11:22 levofloxacin Allergy Mild other Verified 04/02/20 11:22 spironolactone AdvReac Severe Problems Unverified 04/02/20 11:22 with breathing atorvastatin AdvReac Intermediate Muscle Pain Verified 04/02/20 11:22 metformin AdvReac Intermediate Diarrhea Verified 04/02/20 11:22 Consultations 04/02/20 12:34 ED Decision to Admit Stat 04/02/20 13:08 Consult Cardiology Routine 04/02/20 14:19 Consult Case Management - Discharge Planning Routine Hospital Course (1) Acute on chronic combined systolic (congestive) and diastolic (congestive) heart failure: History combined left ventricular systolic and diastolic heart failure. Echo Feb 2020 showed LVEF 40-50% with segmental wall motion abnormalities. Presented to ED with worsening SOB. Chest x-ray and elevated pro-BNP consistent with acute on chronic left ventricular systolic and diastolic heart failure. Cardiology consulted. Improved with IV furosemide. Recent diuretic changes reviewed. Clinic 03/04/20 furosemide 40 mg BID spironolactone 12.5 mg daily (pt opted not to take due to potential side effects) KCl 10 mEq daily [facility] admitted 03/14/20 with CHF. furosemide 40 mg BID [facility] discharged 03/18/20 furosemide 60 mg BID KCl 20 mEq daily Clinic visit 03/25/20 furosemide changed to 40 mg daily + PM dose PRN KCl 20 mEq daily [facility] readmitted with worsening CHF new dose @ DC: furosemide 60 mg daily + PM dose PRN KCl 20 mEq daily Continue metoprolol succinate. No VIOLETTA or ARB because of hyperkalemia. CHF instructions given. (2) Hypotension: Hypotension in ED, resolved. Did not appear to be septic. Procalcitonin normal. (3) Hyperkalemia: K in ED 5.9. On KCl 20 mEq daily. Random cortisol normal. Spironolactone prescribed in February- discontinued. Not on VIOLETTA or ARB. Repeat K 4.4, 4.1, 3.6. Hyperkalemia in ED could have been due to hemolysis or transient (e.g., K shift due to resp acidosis). Furosemide dose being increased. Discharge on KCl 20 mEq daily. Follow K closely in clinic. (4) Coronary artery disease: No anginal symptoms. Troponin normal. (5) PAF (paroxysmal atrial fibrillation): Currently in paced rhythm. Continue metoprolol and warfarin. (6) COPD with exacerbation: Worsening dyspnea and bronchospasm probably due to CHF. (7) Chronic respiratory failure with hypoxia and hypercapnia: Continue home O2. (8) Pleural effusion: Persistent bilateral pleural effusions. Thoracentesis 02/26/20 pleural fluid protein 3.2, serum protein 7.3, pleural:serum ratio 0.44; cultures neg; cytology neg Thoracentesis 03/14/20 cultures neg; cytology neg Continue management of CHF as outlined above. Follow. (9) Abnormal CT scan, chest: CT chest [facility] 03/17/20: "Moderate right lower lobe and right middle lobe airspace opacity. This could reflect consolidation or atelectasis. A neoplastic process is considered less likely however a follow-up chest CT in 3 months is recommended." (10) History of pulmonary embolism: Continue warfarin. (11) Diabetes mellitus, type 2: Hgb A1c 5.9 02/26/20. FBS today = 133. Discharge on usual regimen. (12) Diabetic foot ulcer: Diabetic foot ulcer left plantar heel, POA, followed by [facility]. Seen by Wound Care Nursing. Has f/u appt at [facility] 04/06. Advised to have skin tear LUE rechecked at that time. (13) COVID-19 ruled out: SARS-CoV-2 PCR done 04/02 because of pulmonary symptoms. Results = negative. (14) DVT prophylaxis: Continue warfarin. Ambulate. (15) Discharge planning issues: Discharged to home. Internal Medicine follow-up with Dr. Mortensen. Cardiology follow-up with Dr. Suarez. Wound care follow-up with [facility]. Warfarin management with [facility]. Total Time Total Time Spent Total Time Spent (In Minutes): 40 Discharge Plan Discharge Items Patient Disposition: Home - Self-Care Reason For Visit: trouble breathing Discharge Diagnosis: congestive heart failure (fluid in lungs) Activity: Resume your previous activity Non-emergency contact: Primary Care Provider and Hospitalist Call non-emergency contact if: you have any medication questions, your symptoms worsen and your temperature is above 101 Follow-up/Referrals: Tk Suarez DO [Physician] - (06/01/2020 11:00 AM Tk Suarez Jr., DO Cardiology, [facility]) Ron Mortensen DO [Primary Care Provider] - (04/08/2020 11:00 AM Zamzam Hui MD (covering for Dr. Mortensen) General Internal Medicine [facility] 04/24/2020 12:00 PM Ron Mortensen DO General Internal Medicine [facility]) Diet: Carb Consistent or DM2, Heart Healthy and Low Sodium (2gm) Addtl Attending Provider Instructions: MEDICATION CHANGES: New dose of furosemide (Lasix): 60 mg every morning may take an extra dose in PM for trouble breathing worsening swelling of legs or feet weight gain more than 3 lbs above usual weight SUMMARY OF TEST RESULTS: Chest x-ray showed fluid in lungs. Initial potassium was high, repeat 04/03 was OK, repeat 04/04 was borderline low (3.6). INR was 1.8. RECOMMENDATIONS FOR FOLLOW-UP: Please ask Dr. Hui to recheck potassium level on Monday. Keep your appointment with Wound Clinic on Monday. Please ask them to take a look at the skin tear on your arm. Continue to work with [facility] to adjust your warfarin dose. OTHER INSTRUCTIONS: Seek medical attention if you have: * temperature above 101 * chest pain or trouble breathing * abdominal pain, nausea, vomiting * diarrhea, dark stools or bloody stools * any unanswered questions or concerns Call 911 if symptoms are severe. Please take good care of yourself. Call if you have any questions or problems. You can reach a [facility] hospitalist on duty at [facility] 24 hours a day by calling [phone]. My cell # is [phone]. Addtl [employer] Provider Instructions: INSTRUCTIONS FOR CONGESTIVE HEART FAILURE Call 911 and go to the Emergency Room if: * You have tightness or pain in your chest that does not go away with rest or Nitroglycerin * You are very short of breath even with rest Call your doctor if any of the following symptoms or problems start or get worse: * Shortness of breath or difficulty breathing * Wake up at night short of breath * Chest pain * Cough * Swelling of your hands, fee, or legs * More fatigued or tired with your normal activity * Palpitations - sudden fast heart beats WEIGHT * Weigh yourself every morning after using the bathroom. * Use the same scale. * Wear the same amount of clothing. * Write your weight down on your chart. * Call your doctor if you gain more than 2-3 pounds in 1-2 days. MEDICATIONS * Use this discharge instruction sheet for instructions. * Take your medications at the time your doctor ordered. * Do not skip a dose of your medicines. * If you miss a dose of medicine, take as soon as possible, but DO NOT DOUBLE A DOSE. * Read your medicine information when you get home. * Know all of the side effects of your medicine. * Call your doctor's office if you have any side effects. * Be sure all of your doctors know what medicine and herbs you take (including cold, flu, and herbal medicine). * Pain Medicine: If you do not get relief from your pain, please call your doctor for help. Take the following with you to your follow-up doctor appointments: * Weight Chart * Medication List * List of questions Do not drink excessive alcohol, beer or wine. Pending Studies at Discharge: No Stand-Alone Forms: My [facility], Smoking Cessation Medications and DC Order Prescriptions: New furosemide 40 mg tablet 60 mg PO DAILY Qty: 45 RF: 5 Continued primidone [Mysoline] 250 mg Tablet 500 mg PO HS RF: 0 nitroglycerin 0.4 mg Tablet, Sublingual 0.4 mg Sublingual UD PRN (Reason: Chest Pain) RF: 0 montelukast [Singulair] 10 mg Tablet 10 mg PO HS RF: 0 allopurinol [Zyloprim] 300 mg Tablet 300 mg PO HS RF: 0 insulin aspart U-100 [Novolog PenFill U-100 Insulin] 100 unit/mL Cartridge 1 sliding scale dose SUBCUT AC RF: 0 rosuvastatin [Crestor] 40 mg Tablet 40 mg PO HS RF: 0 Lantus Solostar U-100 Insulin 100 unit/mL (3 mL) Insulin Pen 25 unit SUBCUT HS RF: 0 ferrous sulfate [iron] 325 mg (65 mg iron) Tablet 325 mg PO Q OTHER DAY RF: 0 polyethylene glycol 3350 [Miralax] 17 gram Powder In Packet 17 g PO DAILY PRN (Reason: constipation) Qty: 14 RF: 0 warfarin [Jantoven] 2 mg tablet 6 mg PO SUTUTHSA@2100 RF: 0 warfarin [Jantoven] 2 mg tablet 4 mg PO MOWEFR@2100 RF: 0 potassium chloride 20 mEq tablet extended release 20 meq PO DAILY Qty: 30 RF: 3 aspirin 325 mg Tablet 325 mg PO HS RF: 0 metoprolol succinate 50 mg Tablet Extended Release 24 Hr 25 mg PO HS RF: 0 Discontinued furosemide 40 mg tablet 40 mg PO DAILY RF: 0 Discharge Orders: Discharge Order (Routine); Ordered 04/04/20 Ordered By: Ernesto Gonzalez Admission Data Admit Date/Time: 04/02/20 12:41 Attending Provider: Ernesto Gonzalez Admit Provider: Michael Blanchard Primary Care Provider: Ron oMrtensen Other Providers: Michael Blanchard ; Rio Rivera ; Kh[facility] Other Interventions: Discharge Summary Assessment (RN) Last Done: 04/04/20 17:02
== END 2020-04-04 17:55 | disposition home or self-care (01) ==
LOC: ED 10:33 → 2S 10:33 → SUATTDRO 12:41 → 2S 13:46

== ENCOUNTER 2021-01-18 15:07 | Inpatient (IN) ==
[2021-01-18] MEDS ORDERED: methylPREDNISolone 125 MG/2 ML VIAL IV STA (16:08)
[2021-01-18] MEDS ORDERED: LEVALBUTEROL HCL 0.63 MG/3 ML NEB NEB STA (16:08)
[2021-01-18] MEDS ORDERED: guaiFENesin 600 MG TABCR PO STA (16:10)
[2021-01-18 16:24] LABS: Basophils # (auto) 0.01 K/uL (0-0.2); Basophils % (auto) 0.1 %; Eosinophils # (auto) 0.01 K/uL (0-0.5); Eosinophils % (auto) 0.1 %; Hematocrit (blood only) 35.7 % (42-52); Hemoglobin 11.5 g/dL (14.0-18.0); Immature Granulocytes # (auto) 0.02 K/uL (0.00-0.02); Immature Granulocytes % (auto) 0.2 %; Lymphocytes # (auto) 0.68 K/uL (1.2-3.4); Lymphocytes % (auto) 7.7 %; Mean Corpuscular Hemoglobin 31.3 pg (25-34); Mean Corpuscular Hgb Conc 32.2 g/dL (32-36); Mean Platelet Volume 11.3 fL (7.4-10.4); Monocytes # (auto) 0.67 K/uL (0.11-0.59); Monocytes % (auto) 7.6 %; Neutrophils # (auto) 7.44 K/uL (1.4-6.5); Neutrophils % (auto) 84.3 %; Platelet Count 177 K/uL (130-400); RDW Coefficient of Variation 14.7 % (11.5-14.5); RDW Standard Deviation 52.5 fL (36.4-46.3); Red Blood Count 3.68 M/uL (4.7-6.1); White Blood Count 8.83 K/uL (4.8-10.8)
--- NOTE | 2021-01-18 16:25 | XRay Report ---
XR chest 1V portable HISTORY: SEPSIS COMPARISON: Chest 04/04/2020. FINDINGS: No pneumothorax. There are small bilateral pleural effusions. The heart remains enlarged. T here is left-sided dual-chamber pacemaker. Perihilar interstitial/vascular thickening has slightly pr ogressed. This consistent with mild pulmonary edema. Bibasilar densities remain unchanged. IMPRESSION: 1. Cardiomegaly with slight progression of the mild interstitial pulmonary edema. 2. Small bilateral pleural effusions and bibasilar densities persist. ACT 112: Negative or not required by law. Electronically signed by: Nik Green M.D. 01/18/2021 4:23 PM
[2021-01-18 16:31] LABS: Alanine Aminotransferase 17 U/L (12-78); Albumin Level 2.5 gm/dl (3.4-5.0); Aspartate Aminotransferase 29 U/L (15-37); BUN Creatinine Ratio 11.5 (10-20); Bilirubin Direct 0.3 mg/dl (0-0.2); Blood Urea Nitrogen 17 mg/dl (7-18); Calcium 8.5 mg/dl (8.5-10.1); Carbon Dioxide 25 mmol/L (21-32); Chloride 98 mmol/L (98-107); Creatinine Clr Calc Pharmacy 55.5 ml/min; Est GFR (African American) 52.8 ml/min; Est GFR (Non-African American) 45.5 ml/min; Glucose 128 mg/dl (70-99); Magnesium 1.6 mg/dl (1.8-2.4); Sodium 131 mmol/L (136-145)
[2021-01-18 16:35] LABS: INR 1.5 (0.9-1.1); Partial Thromboplastin Ratio 1.4; Prothrombin Time 14.7 Seconds (9.0-12.0)
[2021-01-18 16:40] LABS: Albumin Globulin Ratio 0.5 (0.9-2); Alkaline Phosphatase 133 U/L (45-117); Bilirubin,Total 0.7 mg/dl (0.2-1); Globulin 5.3 gm/dl (2.5-4.0); NT Pro B Type Natriuretic Pept 4693 pg/ml (0-900); Phosphorus 2.2 mg/dl (2.5-4.9); Thyroid Stimulating Hormone 0.684 uIu/ml (0.300-4.500); Total Protein 7.8 gm/dl (6.4-8.2); Troponin I < 0.015 ng/ml (0-0.045)
[2021-01-18 16:55] LABS: Base Excess VBG 3.8 mEq/L; HCO3 VBG 29 mmol/L; PCO2 VBG 47 mmHg (38-50); PO2 VBG 24 mmHg; pH VBG 7.41 (7.36-7.41)
[2021-01-18 16:56] LABS: Oxygen Saturation VBG < 60.0 %
[2021-01-18] MEDS ORDERED: ACETAMINOPHEN 1,000 MG/100 ML VIAL IV STA (17:14)
--- NOTE | 2021-01-18 17:33 | Emergency Department Note ---
Impression & Plan Pulmonary emboli, Acute and chronic respiratory failure, Pneumonia, CHF (congestive heart failure) ED Provider Note NAME: DARREL ETIENNE AGE: 75 SEX: M ARRIVES VIA: Ambulance INFORMANT: Patient, ED PROVIDER(S): Jones Brown MD CHIEF COMPLAINT: Fever, sob. PLAN: Disposition: Admit MEDICAL DECISION MAKING: The patient is a pleasant 74-year-old gentleman with a past medical history of COPD, chronic hypoxic respiratory failure, bronchiectasis, GERD, history of PE on warfarin, history of tachybradycardia syndrome status post PPM, CKD who presents to emergency department for cough, congestion, shortness of breath and fevers over the past 24 hours. Patient reports he feels as though he did when he had pneumonia previously. He denies chest pain, nausea, vomiting, diarrhea or urinary symptoms. He reports his legs are at their baseline in terms of their chronic edema. He denies any increased weight gain. He reports he previ ously was on oxygen at home but was taken off oxygen after "having fluid removed" in March 2020. He denies any known COVID-19 exposures. On arrival the patient is chronically ill-appearing but no acute distress, febrile to 38.3 and vital signs otherwise stable. He was 87% on room air. Lungs with scattered rhonchi with underlying wheeze. He has 3+ bilateral lower extremity pitting edema with catheter nontender. EKG without overt acute ischemia. Chest x-ray demonstrates cardiomegaly with progression of interstitial pulmonary edema. Note is made of bilateral pleural effusions and bibasilar densities similar to March 2020. WBC and platelets within normal limits. H/H 1.5/35.7 similar to prior values. INR is subtherapeutic at 1.5. VBG is unremarkable. Chemistry without metabolic acidosis. Creatinine 1.5 without recent values for comparison however similar values in the past. Take acid 1.2, within normal limits. Magnesium 1.6 with repletion provided. Troponin negative/undetectable. BNP 4600 similar to prior values. Procalcitonin is not significantly elevated. UA without convincing evidence of infection. COVID-19 PCR was negative. Given the patient's worsening shortness of breath the setting of being subtherapeutic on his Coumadin CTA of the chest was performed. This did demonstrate segmental and subsegmental pulmonary emboli of the left lower lobe. Pulmonary edema and bilateral pleural effusions again noted. Additional note is made of bronchiectasis with bronchial wall thickening and mucous plugging as well as bibasilar consolidation suggestive of pneumonia given the patient's fever. Pulmonary nodules also seen. Given the patient's fever and suspicion for pneumonia with bibasilar consolidations patient was ordered for Augmentin for possible aspiration pneumonia as well as doxycycline for atypical coverage in the setting of his COPD. We will proceed with Heparin for anticoagulation. Diuresis per admitting team. Patient agrees with plan for admission for further management. Case was discussed with Katharina Cox, PAC with Katharina Lopez hospitalist, who will evaluate the patient for admission. Triage Nursing notes reviewed and agree them. Prior medical records reviewed Vital Signs: reviewed and remarkable for hypoxia. Differential diagnosis: Reactive airway disease, pneumonia, pneumothorax, COPD, CHF, infections, cardiac ischemia, pulmonary embolism, musculoskeletal, gastrointestinal, as well as other pathologies. ER treatment provided: See below. Diagnostics interpreted by me: ECG: Normal sinus rhythm, 74 bpm, nonspecific ST abnormality, no overt ST elevation or depression, TC 461, QRS 116. Cardiac Monitoring: An order for continuous cardiac monitoring was placed and demonstrated Normal sinus rhythm, 74 bpm, no ectopy. Laboratory studies: See below Imaging studies: See below Consultation(s): Case was discussed with Katharina Cox, PAC with Katharina Lopez hospitalist, who will evaluate the patient for admission. HPI: The patient is a pleasant 74-year-old gentleman with a past medical history of COPD, chronic hypoxic respiratory failure, bronchiectasis, GERD, history of PE on warfarin, history of tachybradycardia syndrome status post PPM, CKD who presents to emergency department for cough, congestion, shortness of breath and fevers over the past 24 hours. Patient reports he feels as though he did when he had pneumonia previously. He denies chest pain, nausea, vomiting, diarrhea or urinary symptoms. He reports his legs are at their baseline in terms of their chronic edema. He denies any increased weight gain. He reports he previously was on oxygen at home but was taken off oxygen after "having fluid removed" in March 2020. He denies any known COVID-19 exposures. ROS: See above HPI for pertinent positives & negatives. A total of 10 systems reviewed and were otherwise negative. PAST MEDICAL HISTORY:See Below PAST SURGICAL HISTORY:See Below FAMILY HISTORY:See Below SOCIAL HISTORY:See Below HOME MEDICATIONS:See Below ALLERGIES:See Below VITALS:See Below PHYSICAL EXAMINATION: GENERAL: Awake, alert, chronically ill-appearing, in no distress HENT: Normocephalic, atraumatic. Oropharynx unremarkable. EYES: Normal conjunctiva. Sclera non-icteric. NECK: Supple. No nuchal rigidity. FROM. No JVD. RESPIRATORY: Scattered rhonchi with underlying wheeze. CARDIAC: Regular rate, normal rhythm. Extremities warm and well perfused. Pulses equal. ABDOMEN: Soft, non-distended. No tenderness to palpation. No rebound or guarding. No masses. RECTAL: Deferred. MUSCULOSKELETAL: Chest examination reveals no tenderness. The back is symmetrical on inspection without obvious abnormality. There is no CVA tenderness to palpation. No joint edema. LOWER EXTREMITIES: Calves are equal size bilaterally and non-tender. 3+ bilateral lower extremity pitting edema. Mild redness of the right lower leg and foot without overt erythema warmth or tenderness. There is no crepitus. NEURO: Normal sensorium. No sensory or motor deficits noted. SKIN: No rash or jaundice noted. ED COURSE: Critical Care: I have personally spent greater than 45 minutes of critical care time in the direct management of this patient. This includes bedside care, interpretation of diagnostic studies, and testing, discussion with consultants, patient, and family members, and other required patient management activities. This 45 min utes is in excess of all separately billable procedures. Jones Brown MD Past Med/Surg History Medical History Abnormal CT scan, chest Bronchiectasis Chronic kidney disease stage 3 Chronic left ventricular systolic heart failure Chronic respiratory failure with hypoxia and hypercapnia COPD (chronic obstructive pulmonary disease) Coronary artery disease "S/P inferior MD, severe multivessel disease not amenable to intervention" per 2012 cath Diabetes mellitus, type 2 IDDM Diabetic foot ulcer GERD (gastroesophageal reflux disease) Gout Hearing deficit BL KOO History of CVA (cerebrovascular accident) "YEARS AGO" - reports he has had a tremor ever since stroke. denies additional residual effects History of depression History of DVT (deep vein thrombosis) "YEARS AGO" ETIOLOGY UNK - ON WARFARIN History of pancreatitis History of pulmonary embolism on retirement coumadin History of tachycardia-bradycardia syndrome HLD (hyperlipidemia) Ischemic cardiomyopathy EF 45-49% MRSA infection Myocardial Infarction "YEARS AGO" Nephrolithiasis On home oxygen therapy 2 LPM DAILY PRN (secondary to chronic respiratory failure) Osteoarthritis PAD (peripheral artery disease) PAF (paroxysmal atrial fibrillation) DX "years ago" - ON COUMADIN - FOLLOWS W/ DR. CRANE Seizure QUESTIONABLE- EEG 1 WEEK AGO FOR QUESTIONABLE SEIZURE (reported convulsions, loss of consciousness 1 week ago while watching TV) - [place] [facility] - EEG unremarkable Tremor Surgical History History of bronchoscopy History of cardiac cath MULTIPLE - NO STENTS [place] (could not recall dates - most recent in system is from 2011 [place]) History of cholecystectomy 2014 History of incision of pericardium pericardial window secondary to pericardial effusion History of pacemaker PLACED 10/2017 FOR [employer] - [employer] - LAST CHECKED 05/2019 History of tonsillectomy S/P cystoscopy with ureteral stent placement 07/25/2019 [facility] 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 x 17 years Feels Safe at Home: Yes Assistive Devices: Walker Allergies Allergies Allergy/AdvReac Type Severity Reaction Status Date / Time albuterol Allergy Severe CHOKING Verified 01/18/21 16:30 SENSATION ipratropium Allergy Severe CHOKING Verified 01/18/21 16:30 SENSATION onion Allergy Intermediate RASH Verified 01/18/21 16:30 levofloxacin Allergy Mild other Verified 01/18/21 16:30 spironolactone AdvReac Severe Problems Unverified 01/18/21 16:30 with breathing atorvastatin AdvReac Intermediate Muscle Pain Verified 01/18/21 16:30 metformin AdvReac Intermediate Diarrhea Verified 01/18/21 16:30 Home Meds Home Medications Medication Instructions Recorded Confirmed Lanamita Douglasostar U-100 Insulin 22 unit SUBCUT HS 04/11/18 01/18/21 allopurinol [Zyloprim] 300 mg PO HS 04/11/18 01/18/21 montelukast [Singulair] 10 mg PO HS 04/11/18 01/18/21 nitroglycerin 0.4 mg SUBLINGUAL UD PRN 04/11/18 01/18/21 primidone [Mysoline] 500 mg PO HS 04/11/18 01/18/21 rosuvastatin [Crestor] 40 mg PO HS 04/11/18 01/18/21 aspirin 325 mg PO HS 08/08/19 01/18/21 metoprolol succinate 25 mg PO HS 08/08/19 01/18/21 ferrous sulfate [iron] 325 mg PO Q OTHER DAY 01/09/20 01/18/21 warfarin [Jantoven] 4 mg PO MOWEFR@2100 03/14/20 01/18/21 warfarin [Jantoven] 6 mg PO SUTUTHSA@2100 03/14/20 01/18/21 empagliflozin [Jardiance] 0 mg PO HS 10/18/20 01/18/21 potassium chloride 20 meq PO HS 10/18/20 01/18/21 Previous Rx's Medication Instructions Recorded furosemide 60 mg PO DAILY #45 tab 04/04/20 Results & Data (ED) Vital Signs Vital Signs - 24 hr 01/18/21 15:11 01/18/21 15:14 01/18/21 15:15 Temperature Temperature Source Pulse Rate 79 77 79 Pulse Rate from SpO2 Sensor 79 78 80 Respiratory Rate 14 26 H 13 Respiratory Effort / Characteristics Respiratory Depth Blood Pressure 125/64 118/66 Blood Pressure Mean 84 83 Pulse Oximetry 91 90 94 Oxygen Delivery Method Oxygen Flow Rate 2 2 2 Sepsis Recent Fever Within 48 Hours Sepsis New/Unexplained Change in Mental Status Sepsis Action Taken by Nursing Oxygen Flow Rate - Titration Pulse Oximetry Post Tiitration 01/18/21 15:20 01/18/21 15:30 01/18/21 15:31 Temperature 38.3 C H Temperature Source Oral Pulse Rate 74 75 77 Pulse Rate from SpO2 Sensor 75 77 Respiratory Rate 20 17 18 Respiratory Effort / Characteristics Respiratory Depth Normal Blood Pressure 118/66 118/64 Blood Pressure Mean 83 82 Pulse Oximetry 98 98 97 Oxygen Delivery Method Nasal Cannula Oxygen Flow Rate 2 2 2 Sepsis Recent Fever Within 48 Hours Yes Sepsis New/Unexplained Change in Mental Status No Sepsis Action Taken by Nursing No Action Required Oxygen Flow Rate - Titration Pulse Oximetry Post Tiitration 01/18/21 15:45 01/18/21 16:00 01/18/21 16:15 Temperature Temperature Source Pulse Rate 75 76 73 Pulse Rate from SpO2 Sensor 76 76 74 Respiratory Rate 22 19 19 Respiratory Effort / Characteristics Respiratory Depth Blood Pressure 118/59 L 124/52 L 119/68 Blood Pressure Mean 78 76 85 Pulse Oximetry 97 98 98 Oxygen Delivery Method Room Air Oxygen Flow Rate 2 2 2 Sepsis Recent Fever Within 48 Hours Sepsis New/Unexplained Change in Mental Status Sepsis Action Taken by Nursing Oxygen Flow Rate - Titration Pulse Oximetry Post Tiitration 01/18/21 16:30 01/18/21 16:31 01/18/21 16:45 Temperature Temperature Source Pulse Rate 77 74 73 Pulse Rate from SpO2 Sensor 74 Respiratory Rate 19 14 19 Respiratory Effort / Characteristics Respiratory Depth Blood Pressure 119/58 L 122/56 L Blood Pressure Mean 78 78 Pulse Oximetry 90 Oxygen Delivery Method Oxygen Flow Rate 2 2 2 Sepsis Recent Fever Within 48 Hours Sepsis New/Unexplained Change in Mental Status Sepsis Action Taken by Nursing Oxygen Flow Rate - Titration Pulse Oximetry Post Tiitration 01/18/21 16:46 01/18/21 17:00 01/18/21 17:08 Temperature Temperature Source Pulse Rate 75 76 Pulse Rate from SpO2 Sensor 75 76 Respiratory Rate 18 22 Respiratory Effort / Characteristics Respiratory Depth Blood Pressure 136/80 Blood Pressure Mean 98 Pulse Oximetry 98 87 L Oxygen Delivery Method Room Air Oxygen Flow Rate 2 Sepsis Recent Fever Within 48 Hours Sepsis New/Unexplained Change in Mental Status Sepsis Action Taken by Nursing Oxygen Flow Rate - Titration 2 Pulse Oximetry Post Tiitration 95 01/18/21 17:15 01/18/21 17:30 01/18/21 17:31 Temperature Temperature Source Pulse Rate 75 77 76 Pulse Rate from SpO2 Sensor 75 78 Respiratory Rate 24 21 24 Respiratory Effort / Characteristics Respiratory Depth Blood Pressure 151/74 H 127/57 L Blood Pressure Mean 99 80 Pulse Oximetry 100 99 Oxygen Delivery Method Oxygen Flow Rate 2 2 2 Sepsis Recent Fever Within 48 Hours Sepsis New/Unexplained Change in Mental Status Sepsis Action Taken by Nursing Oxygen Flow Rate - Titration Pulse Oximetry Post Tiitration 01/18/21 17:45 01/18/21 18:06 01/18/21 18:07 Temperature Temperature Source Pulse Rate 75 82 83 Pulse Rate from SpO2 Sensor 76 83 83 Respiratory Rate 16 14 17 Respiratory Effort / Characteristics Respiratory Depth Blood Pressure 143/73 H 155/71 H Blood Pressure Mean 96 99 Pulse Oximetry 99 98 100 Oxygen Delivery Method Oxygen Flow Rate 2 2 2 Sepsis Recent Fever Within 48 Hours Sepsis New/Unexplained Change in Mental Status Sepsis Action Taken by Nursing Oxygen Flow Rate - Titration Pulse Oximetry Post Tiitration 01/18/21 18:15 01/18/21 18:16 01/18/21 18:17 Temperature Temperature Source Pulse Rate 78 79 78 Pulse Rate from SpO2 Sensor 75 78 78 Respiratory Rate 17 23 18 Respiratory Effort / Characteristics Respiratory Depth Blood Pressure 139/63 Blood Pressure Mean 88 Pulse Oximetry 90 98 98 Oxygen Delivery Method Oxygen Flow Rate 2 2 2 Sepsis Recent Fever Within 48 Hours Sepsis New/Unexplained Change in Mental Status Sepsis Action Taken by Nursing Oxygen Flow Rate - Titration Pulse Oximetry Post Tiitration 01/18/21 18:30 01/18/21 18:45 01/18/21 19:00 Temperature Temperature Source Pulse Rate 78 75 74 Pulse Rate from SpO2 Sensor 77 Respiratory Rate 21 20 17 Respiratory Effort / Characteristics Respiratory Depth Blood Pressure 142/70 H Blood Pressure Mean 94 Pulse Oximetry 96 Oxygen Delivery Method Oxygen Flow Rate 2 Sepsis Recent Fever Within 48 Hours Sepsis New/Unexplained Change in Mental Status Sepsis Action Taken by Nursing Oxygen Flow Rate - Titration Pulse Oximetry Post Tiitration 01/18/21 19:07 Temperature Temperature Source Pulse Rate Pulse Rate from SpO2 Sensor Respiratory Rate Respiratory Effort / Characteristics Non-Labored Respiratory Depth Blood Pressure Blood Pressure Mean Pulse Oximetry 98 Oxygen Delivery Method Nasal Cannula Oxygen Flow Rate 2 Sepsis Recent Fever Within 48 Hours Sepsis New/Unexplained Change in Mental Status Sepsis Action Taken by Nursing Oxygen Flow Rate - Titration Pulse Oximetry Post Tiitration Laboratory Data Attestation: I reviewed the patient's lab results. Result diagrams: 01/18/21 15:10 01/18/21 15:10 Lab Results 01/18/21 01/18/21 01/18/21 Range/Units 15:10 15:10 15:10 WBC 8.83 (4.8-10.8) K/uL RBC 3.68 L (4.7-6.1) M/uL Hgb 11.5 L (14.0-18.0) g/dL Hct 35.7 L (42-52) % MCV 97.0 (80-100) fL MCH 31.3 (25-34) pg MCHC 32.2 (32-36) g/dL RDW Std Deviation 52.5 H (36.4-46.3) fL RDW Coeff of Lizet 14.7 H (11.5-14.5) % Plt Count 177 (130-400) K/uL MPV 11.3 H (7.4-10.4) fL Immature Gran % (Auto) 0.2 % Neut % (Auto) 84.3 % Lymph % (Auto) 7.7 % [place] % (Auto) 7.6 % Eos % (Auto) 0.1 % Baso % (Auto) 0.1 % Neut # (Auto) 7.44 H (1.4-6.5) K/uL Lymph # (Auto) 0.68 L (1.2-3.4) K/uL [place] # (Auto) 0.67 H (0.11-0.59) K/uL Eos # (Auto) 0.01 (0-0.5) K/uL Baso # (Auto) 0.01 (0-0.2) K/uL Immature Gran # (Auto) 0.02 (0.00-0.02) K/uL PT (9.0-12.0) Seconds INR (0.9-1.1) APTT (21.0-31.0) Seconds PTT Ratio VBG pH (7.36-7.41) VBG pCO2 (38-50) mmHg VBG pO2 mmHg VBG HCO3 mmol/L VBG O2 Saturation % VBG Base Excess mEq/L Barometric Pressure mm/Hg Sodium 131 L (136-145) mmol/L Potassium 4.0 (3.5-5.1) mmol/L Chloride 98 (98-107) mmol/L Carbon Dioxide 25 (21-32) mmol/L Anion Gap 8.0 (3-11) BUN 17 (7-18) mg/dl Creatinine 1.50 H (0.6-1.4) mg/dl Est Cr Clr Drug Dosing 55.5 ml/min Est GFR ( Amer) 52.8 ml/min Est GFR (Non-Af Amer) 45.5 ml/min BUN/Creatinine Ratio 11.5 (10-20) Glucose 128 H (70-99) mg/dl Lactate (0.4-2.0) mmol/L Calcium 8.5 (8.5-10.1) mg/dl Phosphorus 2.2 L (2.5-4.9) mg/dl Magnesium 1.6 L (1.8-2.4) mg/dl Total Bilirubin 0.7 (0.2-1) mg/dl Direct Bilirubin 0.3 H (0-0.2) mg/dl AST 29 (15-37) U/L ALT 17 (12-78) U/L Alkaline Phosphatase 133 H (45-117) U/L Troponin I < 0.015 (0-0.045) ng/ml NT-Pro-B Natriuret Pep 4693 H (0-900) pg/ml Total Protein 7.8 (6.4-8.2) gm/dl Albumin 2.5 L (3.4-5.0) gm/dl Globulin 5.3 H (2.5-4.0) gm/dl Albumin/Globulin Ratio 0.5 L (0.9-2) Procalcitonin 0.07 (0-0.5) ng/ml TSH 0.684 (0.300-4.500) uIu/ml Urine Color Urine Appearance (Clear) Urine pH (4.5-7.5) Ur Specific [place] (1.000-1.030) Urine Protein (Negative) Urine Glucose (UA) (Negative) Urine Ketones (Negative) Urine Blood (Negative) Urine Nitrite (Negative) Urine Bilirubin (Negative) Urine Urobilinogen (Negative) Ur Leukocyte Esterase (Negative) Urine WBC (Auto) (0-5) /hpf Urine RBC (Auto) (0-4) /hpf U Hyaline Cast (Auto) (0-5) /lpf U Epithel Cells (Auto) (0-5) /lpf Urine Bacteria (Auto) (Negative) COVID-19 Eval Order SARS-CoV-2 (PCR) (Negative) 01/18/21 01/18/21 01/18/21 Range/Units 15:10 15:20 15:20 WBC (4.8-10.8) K/uL RBC (4.7-6.1) M/uL Hgb (14.0-18.0) g/dL Hct (42-52) % MCV (80-100) fL MCH (25-34) pg MCHC (32-36) g/dL RDW Std Deviation (36.4-46.3) fL RDW Coeff of Lizet (11.5-14.5) % Plt Count (130-400) K/uL MPV (7.4-10.4) fL Immature Gran % (Auto) % Neut % (Auto) % Lymph % (Auto) % [place] % (Auto) % Eos % (Auto) % Baso % (Auto) % Neut # (Auto) (1.4-6.5) K/uL Lymph # (Auto) (1.2-3.4) K/uL [place] # (Auto) (0.11-0.59) K/uL Eos # (Auto) (0-0.5) K/uL Baso # (Auto) (0-0.2) K/uL Immature Gran # (Auto) (0.00-0.02) K/uL PT 14.7 H (9.0-12.0) Seconds INR 1.5 H (0.9-1.1) APTT 37.0 H (21.0-31.0) Seconds PTT Ratio 1.4 VBG pH (7.36-7.41) VBG pCO2 (38-50) mmHg VBG pO2 mmHg VBG HCO3 mmol/L VBG O2 Saturation % VBG Base Excess mEq/L Barometric Pressure mm/Hg Sodium (136-145) mmol/L Potassium (3.5-5.1) mmol/L Chloride (98-107) mmol/L Carbon Dioxide (21-32) mmol/L Anion Gap (3-11) BUN (7-18) mg/dl Creatinine (0.6-1.4) mg/dl Est Cr Clr Drug Dosing ml/min Est GFR ( Amer) ml/min Est GFR (Non-Af Amer) ml/min BUN/Creatinine Ratio (10-20) Glucose (70-99) mg/dl Lactate (0.4-2.0) mmol/L Calcium (8.5-10.1) mg/dl Phosphorus (2.5-4.9) mg/dl Magnesium (1.8-2.4) mg/dl Total Bilirubin (0.2-1) mg/dl Direct Bilirubin (0-0.2) mg/dl AST (15-37) U/L ALT (12-78) U/L Alkaline Phosphatase (45-117) U/L Troponin I (0-0.045) ng/ml NT-Pro-B Natriuret Pep (0-900) pg/ml Total Protein (6.4-8.2) gm/dl Albumin (3.4-5.0) gm/dl Globulin (2.5-4.0) gm/dl Albumin/Globulin Ratio (0.9-2) Procalcitonin (0-0.5) ng/ml TSH (0.300-4.500) uIu/ml Urine Color Urine Appearance (Clear) Urine pH (4.5-7.5) Ur Specific [place] (1.000-1.030) Urine Protein (Negative) Urine Glucose (UA) (Negative) Urine Ketones (Negative) Urine Blood (Negative) Urine Nitrite (Negative) Urine Bilirubin (Negative) Urine Urobilinogen (Negative) Ur Leukocyte Esterase (Negative) Urine WBC (Auto) (0-5) /hpf Urine RBC (Auto) (0-4) /hpf U Hyaline Cast (Auto) (0-5) /lpf U Epithel Cells (Auto) (0-5) /lpf Urine Bacteria (Auto) (Negative) COVID-19 Eval Order Covid19 at [facility] SARS-CoV-2 (PCR) NEGATIVE (Negative) 01/18/21 01/18/21 01/18/21 Range/Units 16:43 16:43 17:24 WBC (4.8-10.8) K/uL RBC (4.7-6.1) M/uL Hgb (14.0-18.0) g/dL Hct (42-52) % MCV (80-100) fL MCH (25-34) pg MCHC (32-36) g/dL RDW Std Deviation (36.4-46.3) fL RDW Coeff of Lizet (11.5-14.5) % Plt Count (130-400) K/uL MPV (7.4-10.4) fL Immature Gran % (Auto) % Neut % (Auto) % Lymph % (Auto) % [place] % (Auto) % Eos % (Auto) % Baso % (Auto) % Neut # (Auto) (1.4-6.5) K/uL Lymph # (Auto) (1.2-3.4) K/uL [place] # (Auto) (0.11-0.59) K/uL Eos # (Auto) (0-0.5) K/uL Baso # (Auto) (0-0.2) K/uL Immature Gran # (Auto) (0.00-0.02) K/uL PT (9.0-12.0) Seconds INR (0.9-1.1) APTT (21.0-31.0) Seconds PTT Ratio VBG pH 7.41 (7.36-7.41) VBG pCO2 47 (38-50) mmHg VBG pO2 24 mmHg VBG HCO3 29 mmol/L VBG O2 Saturation < 60.0 % VBG Base Excess 3.8 mEq/L Barometric Pressure 732.4 mm/Hg Sodium (136-145) mmol/L Potassium (3.5-5.1) mmol/L Chloride (98-107) mmol/L Carbon Dioxide (21-32) mmol/L Anion Gap (3-11) BUN (7-18) mg/dl Creatinine (0.6-1.4) mg/dl Est Cr Clr Drug Dosing ml/min Est GFR ( Amer) ml/min Est GFR (Non-Af Amer) ml/min BUN/Creatinine Ratio (10-20) Glucose (70-99) mg/dl Lactate 1.2 (0.4-2.0) mmol/L Calcium (8.5-10.1) mg/dl Phosphorus (2.5-4.9) mg/dl Magnesium (1.8-2.4) mg/dl Total Bilirubin (0.2-1) mg/dl Direct Bilirubin (0-0.2) mg/dl AST (15-37) U/L ALT (12-78) U/L Alkaline Phosphatase (45-117) U/L Troponin I (0-0.045) ng/ml NT-Pro-B Natriuret Pep (0-900) pg/ml Total Protein (6.4-8.2) gm/dl Albumin (3.4-5.0) gm/dl Globulin (2.5-4.0) gm/dl Albumin/Globulin Ratio (0.9-2) Procalcitonin (0-0.5) ng/ml TSH (0.300-4.500) uIu/ml Urine Color Yellow Urine Appearance Clear (Clear) Urine pH 6.0 (4.5-7.5) Ur Specific [place] 1.020 (1.000-1.030) Urine Protein 1+ H (Negative) Urine Glucose (UA) 3+ H (Negative) Urine Ketones Negative (Negative) Urine Blood Trace H (Negative) Urine Nitrite Negative (Negative) Urine Bilirubin Negative (Negative) Urine Urobilinogen Negative (Negative) Ur Leukocyte Esterase Negative (Negative) Urine WBC (Auto) 5-10 H (0-5) /hpf Urine RBC (Auto) 0-4 (0-4) /hpf U Hyaline Cast (Auto) 1-5 (0-5) /lpf U Epithel Cells (Auto) 5-10 H (0-5) /lpf Urine Bacteria (Auto) Negative (Negative) COVID-19 Eval Order SARS-CoV-2 (PCR) (Negative) Administered Medications Heparin Sodium/Dextrose (Heparin Sodium/Dextrose) 25,000 units in 500 mls @ 32 mls/hr IV .[id number] [facility]; Protocol Stop: 02/17/21 19:21 Last Admin: 01/18/21 19:20 Dose: 1,600 units/hr, 32 mls/hr Documented by: [id number] Cosigned by: [id number] Discontinued Medications Furosemide (Furosemide 40 Mg/4 Ml Vial) 40 mg IV NOW STA Stop: 01/18/21 19:59 Last Admin: 01/18/21 21:02 Dose: 40 mg Documented by: [id number] Guaifenesin (Guaifenesin 600 Mg Tabcr) 600 mg PO NOW STA Stop: 01/18/21 16:11 Last Admin: 01/18/21 16:28 Dose: 600 mg Documented by: [id number] Heparin Sodium (Porcine) (Heparin Sod (Porcine) 1000 Unit/Ml) 1 units IV NOW ONE Stop: 01/18/21 19:23 Last Admin: 01/18/21 19:19 Dose: 7,000 units Documented by: [id number] Cosigned by: [id number] Heparin Sodium/Dextrose (Heparin Iv Adult Wt-Based Standard With Bolus Protocol) 1 ea IV NOW STA; Protocol Stop: 01/18/21 19:07 Last Admin: 01/18/21 21:13 Dose: Not Given Documented by: [id number] Magnesium Sulfate/Dextrose (Magnesium Sulfate / D5w) 1 gm in 100 mls @ 100 mls/hr IV Q1H ANNA Stop: 01/18/21 19:13 Last Infusion: 01/18/21 19:20 Dose: 0 mls/hr Documented by: [id number] Admin: 01/18/21 18:19 Dose: 100 mls/hr Documented by: [id number] Acetaminophen (Ofirmev) 1,000 mg in 100 mls @ 400 mls/hr IV NOW STA Stop: 01/18/21 17:28 Last Infusion: 01/18/21 18:54 Dose: 0 mls/hr Documented by: [id number] Admin: 01/18/21 18:19 Dose: 400 mls/hr Documented by: [id number] Ampicillin Sodium/Sulbactam Sodium 3,000 mg/ Sodium Chloride 108 mls @ 200 mls /hr IV NOW STA; Protocol Stop: 01/18/21 18:49 Last Infusion: 01/18/21 19:40 Dose: 0 mls/hr Documented by: [id number] Admin: 01/18/21 19:06 Dose: 200 mls/hr Documented by: [id number] Doxycycline Hyclate 100 mg/ (Dextrose) 110 mls @ 50 mls/hr IV NOW STA Stop: 01/18/21 20:28 Last Admin: 01/18/21 20:02 Dose: 50 mls/hr Documented by: [id number] Ioversol (Optiray 320 125ml) 118 ml IV ONCE ONE Stop: 01/18/21 17:56 Last Admin: 01/18/21 17:55 Dose: 118 ml Documented by: [id number] Levalbuterol HCl (Levalbuterol Hcl 0.63 Mg/3 Ml Neb) 0.63 mg NEB NOW STA Stop: 01/18/21 16:09 Last Admin: 01/18/21 16:28 Dose: Not Given Documented by: [id number] Methylprednisolone (Methylprednisolone 125 Mg/2 Ml Vial) 125 mg IV NOW STA Stop: 01/18/21 16:09 Last Admin: 01/18/21 16:28 Dose: 125 mg Documented by: [id number] Warfarin Sodium (Warfarin Sod 6 Mg Tab) 6 mg PO NOW STA Stop: 01/18/21 20:25 Last Admin: 01/18/21 21:02 Dose: 6 mg Documented by: [id number] Imaging Data Radiologist's Impression: Chest X-Ray 01/18/21 16:04 XR chest 1V portable HISTORY: SEPSIS COMPARISON: Chest 04/04/2020. FINDINGS: No pneumothorax. There are small bilateral pleural effusions. The heart remains enlarged. There is left-sided dual-chamber pacemaker. Perihilar interstitial/vascular thickening has slightly progressed. This consistent with mild pulmonary edema. Bibasilar densities remain unchanged. IMPRESSION: 1. Cardiomegaly with slight progression of the mild interstitial pulmonary edema. 2. Small bilateral pleural effusions and bibasilar densities persist. ACT 112: Negative or not required by law. Electronically signed by: Nik Green M.D. 01/18/2021 4:23 PM Chest CTA 01/18/21 17:14 CT angio chest PE protocol CT DOSE: 570.77 mGy.cm HISTORY: 75 years-old Male with PE. Acute chest pain with shortness of breath TECHNIQUE: Multiple CTA images of the chest were obtained after the intravenous administration of 118 ml Optiray. Coronal and sagittal MIPS were obtained from the axial data set and were submitted for review. All measurements were obtained according to NASCET criteria. A dose lowering technique was utilized adhering to the principles of ALARA. COMPARISON: Chest CT 03/17/2020. FINDINGS: CTA: Moderate cardiomegaly with left subclavian pacer. Trace pericardial effusion. Ex tensive coronary artery calcifications. No thoracic aortic aneurysm or dissection. Moderate calcified plaque of the thoracic aorta. The pulmonary arterial tree is opacified to the level of the segmental branches. The distal segmental and subsegmental branches and the lung bases are suboptimally opac ified. Segmental and subsegmental filling defects within the left lower lobe are noted, for example please see image [address] CHEST: Subcentimeter hypodense right-sided thyroid nodule. Unchanged mediastinal and right greater than left hilar adenopathy. Trace left and small right pleural effusions. Pleural thickening of the right hemithorax redemonstrated. Intralobular septal thickening. Left greater than right bibasilar bronchiectasis with mucous plugging. Bibasilar groundglass and consolidative opacities with intermixed groundglass densities. There are numerous bilateral solid pulmonary nodules measuring up to 1.2 cm within the right upper lobe which are new from comparison. Cholecystectomy. No pneumoperitoneum. Hepatic steatosis. Gynecomastia. Degenerative changes of the spine and shoulders. No suspicious bone lesions identified. Chronic bilateral rib fractures. IMPRESSION: 1. Segmental and subsegmental pulmonary emboli of the left lower lobe. 2. Cardiomegaly pulmonary edema, trace left and small right pleural effusions. 3. Left greater than right bibasilar bronchiectasis with bronchial wall thicke solis and mucous plugging. 4. Patchy bibasilar consolidative and groundglass opacities suggest atelectasis versus pneumonitis. 5. There are numerous bilateral scattered solid pulmonary nodules which are new from 03/17/2020 measuring up to 1.2 cm. Differential considerations include pulmonary metastasis versus a nonspecific infectious or inflammatory pneumonitis. Close follow-up is needed. 6. Unchanged mediastinal and hilar adenopathy. 7. Additional findings as above. ACT 112: Negative or not required by law. The above report was generated using voice recognition software. It may contain grammatical, syntax or spelling errors. Electronically signed by: Diaz Obregon M.D. 01/18/2021 6:34 PM Discharge Plan Visit Data Chief Complaint: Illness ED Provider: Jones Brown Discharge Problem: Pulmonary emboli, Acute and chronic respiratory failure, Pneumonia, CHF (congestive heart failure) Discharge Instructions Interventions: ED Discharge Assessment Last Done: 01/18/21 21:12
[2021-01-18 17:48] LABS: Appearance Urine Clear (Clear); Bacteria Urine Automated Negative (Negative); Bilirubin Urine Negative (Negative); Blood Urine Trace (Negative); Color Urine Yellow; Glucose Urine UA 3+ (Negative); Ketones Urine Negative (Negative); Leukocyte Esterase Urine Negative (Negative); Nitrite Urine Negative (Negative); Protein Urine 1+ (Negative); RBC Urine Automated 0-4 /hpf (0-4); Urobilinogen Urine Negative (Negative)
[2021-01-18] MEDS ORDERED: OPTIRAY 320 125ml IV ONE (17:55)
[2021-01-18] MEDS ORDERED: DOXYCYCLINE HYCLATE 100 MG in DEXTROSE 5% 100 ML IV STA (18:17)
[2021-01-18] MEDS ORDERED: AMPICILLIN/SULBACTAM SOD 3,000 MG in 0.9 % SODIUM CHLORIDE 100 ML IV STA (18:17)
[2021-01-18] MEDS: MAGNESIUM SULFATE / D5W 1 GM/100 ML BAG IV SCH ×2 (18:19→23:16)
--- NOTE | 2021-01-18 18:36 | CT Scan Report ---
CT angio chest PE protocol CT DOSE: 570.77 mGy.cm HISTORY: 75 years-old Male with PE. Acute chest pain with shortness of breath TECHNIQUE: Multiple CTA images of the chest were obtained after the intravenous administration of 118 ml Optiray. Coronal and sagittal MIPS were obtained from the axial data set and were submitted for review. All measurements were obtained according to NASCET criteria. A dose lowering technique was u tilized adhering to the principles of ALARA. COMPARISON: Chest CT 03/17/2020. FINDINGS: CTA: Moderate cardiomegaly with left subclavian pacer. Trace pericardial effusion. Extensive coronary margie ry calcifications. No thoracic aortic aneurysm or dissection. Moderate calcified plaque of the thorac ic aorta. The pulmonary arterial tree is opacified to the level of the segmental branches. The distal segmental and subsegmental branches and the lung bases are suboptimally opacified. Segmental and sub segmental filling defects within the left lower lobe are noted, for example please see image [address] CHEST: Subcentimeter hypodense right-sided thyroid nodule. Unchanged mediastinal and right greater than left hilar adenopathy. Trace left and small right pleural effusions. Pleural thickening of the right lorena thorax redemonstrated. Intralobular septal thickening. Left greater than right bibasilar bronchiectas is with mucous plugging. Bibasilar groundglass and consolidative opacities with intermixed groundglas s densities. There are numerous bilateral solid pulmonary nodules measuring up to 1.2 cm within the r ight upper lobe which are new from comparison. Cholecystectomy. No pneumoperitoneum. Hepatic steatosis. Gynecomastia. Degenerative changes of the sp ine and shoulders. No suspicious bone lesions identified. Chronic bilateral rib fractures. IMPRESSION: 1. Segmental and subsegmental pulmonary emboli of the left lower lobe. 2. Cardiomegaly pulmonary edema, trace left and small right pleural effusions. 3. Left greater than right bibasilar bronchiectasis with bronchial wall thickening and mucous pluggin g. 4. Patchy bibasilar consolidative and groundglass opacities suggest atelectasis versus pneumonitis. 5. There are numerous bilateral scattered solid pulmonary nodules which are new from 03/17/2020 measuri ng up to 1.2 cm. Differential considerations include pulmonary metastasis versus a nonspecific infectious or inflammat ory pneumonitis. Close follow-up is needed. 6. Unchanged mediastinal and hilar adenopathy. 7. Additional findings as above. ACT 112: Negative or not required by law. The above report was generated using voice recognition software. It may contain grammatical, syntax o r spelling errors. Electronically signed by: Diaz Obregon M.D. 01/18/2021 6:34 PM
[2021-01-18] MEDS ORDERED: Heparin IV Adult Wt-Based Standard WITH Bolus Protocol IV STA (19:06)
[2021-01-18] MEDS: HEPARIN SODIUM/DEXTROSE 25,000 UNITS/500 ML BAG IV SCH (19:20)
[2021-01-18] MEDS ORDERED: HEPARIN SOD (PORCINE) 1000 UNIT/ML IV ONE (19:22)
[2021-01-18] MEDS ORDERED: ALBUMIN 25% 12.5 GM/50 ML VIAL IV ONE (19:58)
[2021-01-18] MEDS ORDERED: FUROSEMIDE 40 MG/4 ML VIAL IV STA (19:58)
--- NOTE | 2021-01-18 19:59 | History & Physical Report ---
Date of Service January 18, 2021 Assessment & Plan (1) Acute and chronic respiratory failure: Hx of chronic respiratory failure secondary to COPD/bronchiectasis on home O2 History noncompliance with pulmonary toilet as per outpatient pulmonology notes Multifactorial : Decompensated HF (congestive heart failure): hx chronic systolic heart failure secondary to ischemic cardiomyopathy (EF 45-50%, TTE 2019) Possibly secondary to home diuretic therapy being held the last 3 months secondary to kidney dysfunction COPD exacerbation Recurrent PE on Coumadin, subtherapeutic INR Pulmonary nodules (present on outpatient CT chest October 2020), patient follows with [facility] 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 hx CAD/CVA/PVD as per records SSS sp PPM, patient NSR, INR subtherapeutic hypertension, stable ARF on CKD secondary to illness DM2 insulin requiring, well-controlled as of recent hemoglobin A1c of 7September 2020 Chronic anemia, baseline hemoglobin of 11 Past tobacco abuse PCU Supplemental O2 Lasix albumin Follow renal function; renal ultrasound, Nephrology consult if with worsening kidney function Strict I/Os, daily weights, CHF education Update TTE Cardiology consult RE CHF IV HeparinCoumadin bridge therapy, INR goal between 2 and 3 Doxycycline, prednisone course for COPD exacerbation (Patient historically intolerant of inhaler medication.) Basal insulin, ISS BG goal 1 10-1 40, carb count coverage, DVT prophylaxis. IV heparinCoumadin bridge therapy Full code Text document was generated using [employer] voice recognition software. It may contain grammatical or spelling errors. Kindly contact undersigned for clarification of any documentation item in question. History of Present Illness Chief Complaint: Fever Primary Care Provider: Ron Mortensen DO History obtained from patient and records. Medical history significant for chronic respiratory failure secondary to COPD on home O2, history of bronchiectasis, pulmonary nodules, past tobacco abuse, chronic systolic heart failure secondary to ischemic cardiomyopathy (EF 45-50%, TTE 2019), hx CAD/CVA/PVD as per records, SSS sp PPM/PE on coumadin, hypertension, DM2 insulin requiring, history of MGUS, CRI (baseline creatinine 1.3-1.4). hx urolithiasis. Last confinement March 2020 for decompensated heart failure. Patient Lasix held outpatient 3 months ago secondary to volume depletion and kidney dysfunction. 1 day history of fever symptoms, usual cough from COPD as per patient. No chest pain. Usual fluid retention. Denies aspiration. Patient not sure about weight gain. Denies abdominal pain, diarrhea, dysuria symptoms. No known recent COVID-19 contacts. Patient claims to be compliant with home medications. Denies dietary indiscretion. At the ER, patient noted to be febrile, O2 sats 80s at 1 point. Patient given Doxycycline, Unasyn, Solu-Medrol at the ER. IV Heparin started at the ER given subtherapeutic INR on Coumadin. MEDICAL HISTORY: As above. SURGERIES: PPM, mediastinal/thoracic procedures for pericardial effusion, tonsillectomy, toe amputation, cholecystectomy, urologic procedure FAMILY HISTORY: Heart disease, hypertension and diabetes. PERSONAL AND SOCIAL HISTORY: Past tobacco abuse. No chronic intake of alcoholic beverages. Ret[employer]. Allergies Allergy/AdvReac Type Severity Reaction Status Date / Time albuterol Allergy Severe CHOKING Verified 01/18/21 16:30 SENSATION ipratropium Allergy Severe CHOKING Verified 01/18/21 16:30 SENSATION onion Allergy Intermediate RASH Verified 01/18/21 16:30 levofloxacin Allergy Mild other Verified 01/18/21 16:30 spironolactone AdvReac Severe Problems Unverified 01/18/21 16:30 with breathing atorvastatin AdvReac Intermediate Muscle Pain Verified 01/18/21 16:30 metformin AdvReac Intermediate Diarrhea Verified 01/18/21 16:30 Home Medications Medication Instructions Recorded Confirmed Type Lantus Solostar U-100 Insulin 20 unit SUBCUT HS 04/11/18 01/18/21 History allopurinol [Zyloprim] 300 mg PO HS 04/11/18 01/18/21 History montelukast [Singulair] 10 mg PO HS 04/11/18 01/18/21 History nitroglycerin 0.4 mg SUBLINGUAL UD PRN 04/11/18 01/18/21 History primidone [Mysoline] 500 mg PO HS 04/11/18 01/18/21 History rosuvastatin [Crestor] 40 mg PO HS 04/11/18 01/18/21 History aspirin 325 mg PO HS 08/08/19 01/18/21 History metoprolol succinate 25 mg PO HS 08/08/19 01/18/21 History ferrous sulfate [iron] 325 mg PO Q OTHER DAY 01/09/20 01/18/21 History warfarin [Jantoven] 4 mg PO MOWEFR@2100 03/14/20 01/18/21 History warfarin [Jantoven] 6 mg PO SUTUTHSA@2100 03/14/20 01/18/21 History empagliflozin [Jardiance] 0 mg PO HS 10/18/20 01/18/21 History Past Med/Surg History Medical History Abnormal CT scan, chest Bronchiectasis Chronic kidney disease stage 3 Chronic left ventricular systolic heart failure Chronic respiratory failure with hypoxia and hypercapnia COPD (chronic obstructive pulmonary disease) Coronary artery disease "S/P inferior HI, severe multivessel disease not amenable to intervention" per 2012 cath Diabetes mellitus, type 2 IDDM Diabetic foot ulcer GERD (gastroesophageal reflux disease) Gout Hearing deficit BL KOO History of CVA (cerebrovascular accident) "YEARS AGO" - reports he has had a tremor ever since stroke. denies additional residual effects History of depression History of DVT (deep vein thrombosis) "YEARS AGO" ETIOLOGY UNK - ON WARFARIN History of pancreatitis History of pulmonary embolism on exterminator coumadin History of tachycardia-bradycardia syndrome HLD (hyperlipidemia) Ischemic cardiomyopathy EF 45-49% MRSA infection Myocardial Infarction "YEARS AGO" Nephrolithiasis On home oxygen therapy 2 LPM DAILY PRN (secondary to chronic respiratory failure) Osteoarthritis PAD (peripheral artery disease) PAF (paroxysmal atrial fibrillation) DX "years ago" - ON COUMADIN - FOLLOWS W/ DR. CRANE Seizure QUESTIONABLE- EEG 1 WEEK AGO FOR QUESTIONABLE SEIZURE (reported convulsions, loss of consciousness 1 week ago while watching TV) - [place] [facility] - EEG unremarkable Tremor Surgical History History of bronchoscopy History of cardiac cath MULTIPLE - NO STENTS [place] (could not recall dates - most recent in system is from 2011 [place]) History of cholecystectomy 2014 History of incision of pericardium pericardial window secondary to pericardial effusion History of pacemaker PLACED 10/2017 FOR [employer]Y-[employer]NDR[employer] - [employer] - LAST CHECKED 05/2019 History of tonsillectomy S/P cystoscopy with ureteral stent placement 07/25/2019 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 Quit in 1971; Second Hand Exposure: No; Hx Alcohol Use: Yes Alcohol type: beer and hard liquor Hx Substance Use: No Preferred Language: Slovenian Communication Ability: Effective Casino Change Attendant Required: No Beliefs That Will Affect Care: None and Mormonism Mormonism Beliefs: Religious. 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 x 17 years Other Information That Helps Us Care for You: No Feels Safe at Home: Yes Safety Concerns: Feels Safe At This Time Assistive Devices: Oxygen - Continuous, Walker and Wheelchair Review of Systems Review of Systems: As per HPI, all 10 systems reviewed, all other ROS negative Physical Exam Physical Exam: GENERAL: Comfortable, episodic tachypnea, audible wheezing SKIN: Pallor, warm HEENT: Alopecia, pale palpebral conjunctivae, no ptosis, dry buccal mucosa, nasal cannula in place NECK : Supple, no tenderness CHEST : Decreased breath sounds, diffuse expiratory wheezes, no tenderness HEART : RRR, no obvious murmurs ABDOMEN: Some distention, nontender EXTREMITIES : Bilateral LE swelling, no LE tenderness, no other conspicuous deformities noted NEUROLOGIC : Coherent, no facial asymmetry, no other gross focality Results & Data Results & Data ([facility]) Vital Signs (Past 12 Hours) Vital Signs Temp Pulse Resp BP Pulse Ox 01/18/21 19:07 98 01/18/21 19:00 74 17 01/18/21 18:45 75 20 01/18/21 18:30 78 21 142/70 H 96 01/18/21 18:17 78 18 98 01/18/21 18:16 79 23 139/63 98 01/18/21 18:15 78 17 90 01/18/21 18:07 83 17 155/71 H 100 01/18/21 18:06 82 14 98 01/18/21 17:45 75 16 143/73 H 99 01/18/21 17:31 76 24 127/57 L 99 01/18/21 17:30 77 21 01/18/21 17:15 75 24 151/74 H 100 01/18/21 17:08 87 L 01/18/21 17:00 76 22 136/80 98 01/18/21 16:46 75 18 01/18/21 16:45 73 19 122/56 L 90 01/18/21 16:31 74 14 119/58 L 01/18/21 16:30 77 19 01/18/21 16:15 73 19 119/68 98 01/18/21 16:00 76 19 124/52 L 98 01/18/21 15:45 75 22 118/59 L 97 01/18/21 15:31 77 18 97 01/18/21 15:30 75 17 118/64 98 01/18/21 15:20 38.3 C H 74 20 118/66 98 01/18/21 15:15 79 13 118/66 94 01/18/21 15:14 77 26 H 90 01/18/21 15:11 79 14 125/64 91 Laboratory Results Laboratory Results WBC 8.83 K/uL (4.8-10.8) 01/18/21 15:10 RBC 3.68 M/uL (4.7-6.1) L 01/18/21 15:10 Hgb 11.5 g/dL (14.0-18.0) L 01/18/21 15:10 Hct 35.7 % (42-52) L 01/18/21 15:10 MCV 97.0 fL (80-100) 01/18/21 15:10 MCH 31.3 pg (25-34) 01/18/21 15:10 MCHC 32.2 g/dL (32-36) 01/18/21 15:10 RDW Std Deviation 52.5 fL (36.4-46.3) H 01/18/21 15:10 RDW Coeff of Lizet 14.7 % (11.5-14.5) H 01/18/21 15:10 Plt Count 177 K/uL (130-400) 01/18/21 15:10 MPV 11.3 fL (7.4-10.4) H 01/18/21 15:10 Immature Gran % (Auto) 0.2 % 01/18/21 15:10 Neut % (Auto) 84.3 % 01/18/21 15:10 Lymph % (Auto) 7.7 % 01/18/21 15:10 [place] % (Auto) 7.6 % 01/18/21 15:10 Eos % (Auto) 0.1 % 01/18/21 15:10 Baso % (Auto) 0.1 % 01/18/21 15:10 Neut # (Auto) 7.44 K/uL (1.4-6.5) H 01/18/21 15:10 Lymph # (Auto) 0.68 K/uL (1.2-3.4) L 01/18/21 15:10 [place] # (Auto) 0.67 K/uL (0.11-0.59) H 01/18/21 15:10 Eos # (Auto) 0.01 K/uL (0-0.5) 01/18/21 15:10 Baso # (Auto) 0.01 K/uL (0-0.2) 01/18/21 15:10 Immature Gran # (Auto) 0.02 K/uL (0.00-0.02) 01/18/21 15:10 PT 14.7 Seconds (9.0-12.0) H 01/18/21 15:10 INR 1.5 (0.9-1.1) H 01/18/21 15:10 APTT 37.0 Seconds (21.0-31.0) H 01/18/21 15:10 PTT Ratio 1.4 01/18/21 15:10 VBG pH 7.41 (7.36-7.41) 01/18/21 16:43 VBG pCO2 47 mmHg (38-50) 01/18/21 16:43 VBG pO2 24 mmHg 01/18/21 16:43 VBG HCO3 29 mmol/L 01/18/21 16:43 VBG O2 Saturation < 60.0 % 01/18/21 16:43 VBG Base Excess 3.8 mEq/L 01/18/21 16:43 Barometric Pressure 732.4 mm/Hg 01/18/21 16:43 Sodium 131 mmol/L (136-145) L 01/18/21 15:10 Potassium 4.0 mmol/L (3.5-5.1) 01/18/21 15:10 Chloride 98 mmol/L (98-107) 01/18/21 15:10 Carbon Dioxide 25 mmol/L (21-32) 01/18/21 15:10 Anion Gap 8.0 (3-11) 01/18/21 15:10 BUN 17 mg/dl (7-18) 01/18/21 15:10 Creatinine 1.50 mg/dl (0.6-1.4) H 01/18/21 15:10 Est Cr Clr Drug Dosing 55.5 ml/min 01/18/21 15:10 Est GFR ( Amer) 52.8 ml/min 01/18/21 15:10 Est GFR (Non-Af Amer) 45.5 ml/min 01/18/21 15:10 BUN/Creatinine Ratio 11.5 (10-20) 01/18/21 15:10 Glucose 128 mg/dl (70-99) H 01/18/21 15:10 Lactate 1.2 mmol/L (0.4-2.0) 01/18/21 16:43 Calcium 8.5 mg/dl (8.5-10.1) 01/18/21 15:10 Phosphorus 2.2 mg/dl (2.5-4.9) L 01/18/21 15:10 Magnesium 1.6 mg/dl (1.8-2.4) L 01/18/21 15:10 Total Bilirubin 0.7 mg/dl (0.2-1) 01/18/21 15:10 Direct Bilirubin 0.3 mg/dl (0-0.2) H 01/18/21 15:10 AST 29 U/L (15-37) 01/18/21 15:10 ALT 17 U/L (12-78) 01/18/21 15:10 Alkaline Phosphatase 133 U/L (45-117) H 01/18/21 15:10 Troponin I < 0.015 ng/ml (0-0.045) 01/18/21 15:10 NT-Pro-B Natriuret Pep 4693 pg/ml (0-900) H 01/18/21 15:10 Total Protein 7.8 gm/dl (6.4-8.2) 01/18/21 15:10 Albumin 2.5 gm/dl (3.4-5.0) L 01/18/21 15:10 Globulin 5.3 gm/dl (2.5-4.0) H 01/18/21 15:10 Albumin/Globulin Ratio 0.5 (0.9-2) L 01/18/21 15:10 Procalcitonin 0.07 ng/ml (0-0.5) 01/18/21 15:10 TSH 0.684 uIu/ml (0.300-4.500) 01/18/21 15:10 Urine Color Yellow 01/18/21 17:24 Urine Appearance Clear (Clear) 01/18/21 17:24 Urine pH 6.0 (4.5-7.5) 01/18/21 17:24 Ur Specific Comfort 1.020 (1.000-1.030) 01/18/21 17:24 Urine Protein 1+ (Negative) H 01/18/21 17:24 Urine Glucose (UA) 3+ (Negative) H 01/18/21 17:24 Urine Ketones Negative (Negative) 01/18/21 17:24 Urine Blood Trace (Negative) H 01/18/21 17:24 Urine Nitrite Negative (Negative) 01/18/21 17:24 Urine Bilirubin Negative (Negative) 01/18/21 17:24 Urine Urobilinogen Negative (Negative) 01/18/21 17:24 Ur Leukocyte Esterase Negative (Negative) 01/18/21 17:24 Urine WBC (Auto) 5-10 /hpf (0-5) H 01/18/21 17:24 Urine RBC (Auto) 0-4 /hpf (0-4) 01/18/21 17:24 U Hyaline Cast (Auto) 1-5 /lpf (0-5) 01/18/21 17:24 U Epithel Cells (Auto) 5-10 /lpf (0-5) H 01/18/21 17:24 Urine Bacteria (Auto) Negative (Negative) 01/18/21 17:24 COVID-19 Eval Order Covid19 at [facility] 01/18/21 15:20 SARS-CoV-2 (PCR) NEGATIVE (Negative) 01/18/21 15:20 Impressions Chest X-Ray 01/18/21 16:04 XR chest 1V portable HISTORY: SEPSIS COMPARISON: Chest 04/04/2020. FINDINGS: No pneumothorax. There are small bilateral pleural effusions. The heart remains enlarged. There is left-sided dual-chamber pacemaker. Perihilar interstitial/vascular thickening has slightly progressed. This consistent with mild pulmonary edema. Bibasilar densities remain unchanged. IMPRESSION: 1. Cardiomegaly with slight progression of the mild interstitial pulmonary edema. 2. Small bilateral pleural effusions and bibasilar densities persist. ACT 112: Negative or not required by law. Electronically signed by: Nik Green M.D. 01/18/2021 4:23 PM Chest CTA 01/18/21 17:14 CT angio chest PE protocol CT DOSE: 570.77 mGy.cm HISTORY: 75 years-old Male with PE. Acute chest pain with shortness of breath TECHNIQUE: Multiple CTA images of the chest were obtained after the intravenous administration of 118 ml Optiray. Coronal and sagittal MIPS were obtained from the axial data set and were submitted for review. All measurements were obtained according to NASCET criteria. A dose lowering technique was utilized adhering to the principles of ALARA. COMPARISON: Chest CT 03/17/2020. FINDINGS: CTA: Moderate cardiomegaly with left subclavian pacer. Trace pericardial effusion. Extensive coronary artery calcifications. No thoracic aortic aneurysm or dissection. Moderate calcified plaque of the thoracic aorta. The pulmonary arterial tree is opacified to the level of the segmental branches. The distal segmental and subsegmental branches and the lung bases are suboptimally opacified. Segmental and subsegmental filling defects within the left lower lobe are noted, for example please see image [address] CHEST: Subcentimeter hypodense right-sided thyroid nodule. Unchanged mediastinal and right greater than left hilar adenopathy. Trace left and small right pleural effusions. Pleural thickening of the right hemithorax redemonstrated. Intralobular septal thickening. Left greater than right bibasilar bronchiectasis with mucous plugging. Bibasilar groundglass and consolidative opacities with intermixed groundglass densities. There are numerous bilateral solid pulmonary nodules measuring up to 1.2 cm within the right upper lobe which are new from comparison. Cholecystectomy. No pneumoperitoneum. Hepatic steatosis. Gynecomastia. Degenerative changes of the spine and shoulders. No suspicious bone lesions identified. Chronic bilateral rib fractures. IMPRESSION: 1. Segmental and subsegmental pulmonary emboli of the left lower lobe. 2. Cardiomegaly pulmonary edema, trace left and small right pleural effusions. 3. Left greater than right bibasilar bronchiectasis with bronchial wall thickening and mucous plugging. 4. Patchy bibasilar consolidative and groundglass opacities suggest atelectasis versus pneumonitis. 5. There are numerous bilateral scattered solid pulmonary nodules which are new from 03/17/2020 measuring up to 1.2 cm. Differential considerations include pulmonary metastasis versus a nonspecific infectious or inflammatory pneumonitis. Close follow-up is needed. 6. Unchanged mediastinal and hilar adenopathy. 7. Additional findings as above. ACT 112: Negative or not required by law. The above report was generated using voice recognition software. It may contain grammatical, syntax or spelling errors. Electronically signed by: Diaz Obregon M.D. 01/18/2021 6:34 PM Diagnostic Findings EKG as per my interpretation rate 75, NSR, normal axis, T wave flattening inferior leads
[2021-01-18] MEDS ORDERED: WARFARIN SOD 6 MG TAB PO STA (20:24)
[2021-01-18] MEDS ORDERED: GLUCOSE 40% GEL 15 GM TUBE PO PRN (21:25)
[2021-01-18] MEDS ORDERED: traMADol HCL 50 MG TABLET PO PRN (21:25)
[2021-01-18] MEDS ORDERED: DEXTROSE 50% 50 ML SYRINGE IV PRN (21:25)
[2021-01-18] MEDS ORDERED: ACETAMINOPHEN 325 MG TAB PO PRN (21:25)
[2021-01-18] MEDS ORDERED: GLUCAGON FOR INJ 1 MG VIAL SQ PRN (21:25)
[2021-01-18] MEDS ORDERED: GLUCOSE 10 TABS/TUBE PO PRN (21:25)
[2021-01-18] MEDS ORDERED: CARBOHYDRATES FOR HYPOGLYCEMIA PO PRN (21:25)
[2021-01-18] MEDS ORDERED: PROMETHAZINE HCL 12.5 MG in SODIUM CHLORIDE 0.9% 50 ML IV PRN (21:25)
[2021-01-18] MEDS: ASPIRIN 325 MG ECTAB PO SCH (22:21)
[2021-01-18] MEDS: POTASSIUM CHLORIDE CRTAB 20 MEQ TABCR PO SCH (22:21)
[2021-01-18] MEDS: DOXYCYCLINE HYCLATE 100 MG CAP PO SCH (22:21)
[2021-01-18] MEDS: MONTELUKAST SODIUM 10 MG TABLET PO SCH (22:21)
[2021-01-18] MEDS: allopurinoL 300 MG TAB PO SCH (22:21)
[2021-01-18] MEDS: METOPROLOL SUCC 25MG EXT REL TAB PO SCH (22:22)
[2021-01-18] MEDS: PRIMIDONE 250 MG TAB PO SCH (22:22)
[2021-01-18] MEDS: ROSUVASTATIN CALCIUM 20 MG TAB PO SCH (22:22)
[2021-01-18] MEDS ORDERED: INSULIN GLARGINE SOLOSTAR 100 UNITS/ML 3 ML PEN SC STA (22:42)
[2021-01-18] MEDS: INSULIN ASPART 100 UNITS/ML 3 ML PEN SC SCH (22:50)
[2021-01-19 02:49] LABS: Hematocrit (blood only) 36.5 % (42-52); Hemoglobin 11.9 g/dL (14.0-18.0); Immature Granulocytes # (auto) 0.02 K/uL (0.00-0.02); Immature Granulocytes % (auto) 0.3 %; Lymphocytes # (auto) 0.56 K/uL (1.2-3.4); Lymphocytes % (auto) 7.2 %; Mean Corpuscular Hemoglobin 30.5 pg (25-34); Mean Corpuscular Hgb Conc 32.6 g/dL (32-36); Mean Corpuscular Volume 93.6 fL (80-100); Mean Platelet Volume 9.8 fL (7.4-10.4); Monocytes # (auto) 0.21 K/uL (0.11-0.59); Monocytes % (auto) 2.7 %; Neutrophils # (auto) 7.01 K/uL (1.4-6.5); Neutrophils % (auto) 89.8 %; Platelet Count 131 K/uL (130-400); RDW Coefficient of Variation 14.5 % (11.5-14.5); RDW Standard Deviation 49.6 fL (36.4-46.3)
[2021-01-19 03:06] LABS: Calcium 8.5 mg/dl (8.5-10.1); Creatinine Clr Calc Pharmacy 56.1 ml/min; Est GFR (African American) 54.5 ml/min; Magnesium 2.2 mg/dl (1.8-2.4)
[2021-01-19 03:10] LABS: INR 1.5 (0.9-1.1); Partial Thromboplastin Ratio > 5.3; Prothrombin Time 14.9 Seconds (9.0-12.0)
[2021-01-19 03:12] LABS: Partial Thromboplastin Time > 139.0 Seconds (21.0-31.0)
[2021-01-19 06:27] LABS: Partial Thromboplastin Ratio > 5.3
[2021-01-19 06:50] LABS: Partial Thromboplastin Time > 139.0 Seconds (21.0-31.0)
[2021-01-19 07:51] LABS: Partial Thromboplastin Ratio 2.2
[2021-01-19 07:56] LABS: Partial Thromboplastin Time 57.8 Seconds (21.0-31.0)
[2021-01-19] MEDS: cefTRIAXone SODIUM 2,000 MG in DEXTROSE 5% 50 ML IV SCH (08:26)
[2021-01-19] MEDS: INSULIN ASPART 100 UNITS/ML 3 ML PEN SC SCH ×4 (08:28→20:46)
[2021-01-19] MEDS: predniSONE 20 MG TAB PO SCH (08:29)
[2021-01-19] MEDS: DOXYCYCLINE HYCLATE 100 MG CAP PO SCH ×2 (08:29→20:44)
[2021-01-19] MEDS ORDERED: ONDANSETRON INJ 2 MG/ML 2 ML VIAL IV PRN (08:40)
[2021-01-19] MEDS ORDERED: diphenhydrAMINE 50 MG/ML VIAL IV STA (08:40)
--- NOTE | 2021-01-19 09:07 | Hospitalist Progress Note ---
Date of Service January 19, 2021 Assessment & Plan (1) Acute and chronic respiratory failure: Hx of chronic respiratory failure secondary to COPD/bronchiectasis on home O2 History noncompliance per outpatient pulmonology notes Patient apparently has stopped oxygen on his own prior to admission per his report as well as pulm outpatient note Possible sepsis Bronchopneumonia Gram positive bacteremia CT angio does show left greater than right basilar bronchiectasis with bronchial wall thickening and mucous plugging as well as patchy bibasilar consolidative and groundglass opacities suggestive of atelectasis versus pneumonitis Blood culture growing GPC in chains. Ceftriaxone added to doxycycline and prednisone started on admission for COPD exacerbation Repeat blood cultures on monitor. May need echocardiogram to rule out vegetation Patient hypoxia is likely multifactorial in view of -Bronchopneumonia (as detailed above) -PE as seen on CTA and -Acute on chronic systolic heart failure Patient is on Coumadin at home. However INR is subtherapeutic at 1.5 Was started on heparin and admission. We will continue heparin Coumadin bridge Review of outpatient cardiology note from 11/03/2020 Patient Lasix was stopped due to volume depletion. CT angio does report cardiomegaly, pulmonary edema with trace left and small right pleural effusion. Will appreciate cardiology evaluation Pulmonary nodules (present on outpatient CT chest October 2020), patient follows with [facility] intranet support History of CAD/CVA/PVD as per records SSS sp PPM, patient NSR, INR subtherapeutic Hypertension BP running low normal at this time Monitor Follow up Cardiology MARY on CKD 3 Likely secondary to illness Monitor renal function and urine output DM2 Well-controlled as of recent hemoglobin A1c of 7, September 2020 Insulin per protocol while inpatient Chronic anemia Baseline hemoglobin of 11 DVT prophylaxis. IV heparinCoumadin bridge therapy Full code Admission and Anticipated Discharge Date Admission Date: January 18, 2021 Subjective 75-year-old man with history of COPD on home oxygen at 2 L, bronchiectasis, pulmonary nodules, past tobacco use, chronic systolic heart failure secondary to ischemic cardiomyopathy with EF of 45 to 50%, CAD, CVA, PVD per records, sick sinus syndrome status post pacemaker, PE on Coumadin, hypertension, DM type II on insulin, MGUS, CKD 3 who presented to the ER for fever and cough. Patient seen and examined this morning. Reports he has been having chills for the past 4 days and then had fever. Reports chronic cough productive of grayish sputum. Denied any dysuria, frequency, urgency Denied any chest pain, shortness of breath Denies any diarrhea, constipation, abdominal pain. Reported some nausea this morning. Denied any headache, dizziness Review of Systems Review of Systems: All systems reviewed & are unremarkable except as noted in Subjective Physical Exam Constitutional: + well hydrated; no acute distress Elderly man Eyes: PERRL, conjunctivae normal, anicteric sclerae ENMT: external ear and nose normal, oropharynx normal Respiratory: normal respiratory effort; no respiratory distress Decreased breath sounds, on nasal cannula 3 L/min, some expiratory wheezing left lower lobe Cardiovascular: Rate/Rhythm: regular rate and regular rhythm S1-S2 Gastrointestinal (Abdomen): normal bowel sounds, soft, nontender, no hepatosplenomegaly Musculoskeletal: no cyanosis or clubbing, extremities motor strength 5/5 Neurologic: PERRL, EOMI, accommodation nl, no face palsy, no dysarthria Psychiatric: A+Ox3, euthymic affect Genitourinary: no CVA tenderness Results & Data Results & Data ([facility]) Vital Signs (Past 12 Hours) Vital Signs Temp Pulse Pulse Resp BP Pulse Ox 01/19/21 08:28 36.4 C L 65 18 108/66 99 01/19/21 03:43 36.4 C L 61 20 126/75 98 01/19/21 01:25 66 01/19/21 00:10 36.4 C L 63 20 128/75 96 01/18/21 21:37 70 01/18/21 21:26 36.8 C 75 18 157/83 H 96 Laboratory Results Abnormal lab results 01/18/21 01/18/21 01/18/21 Range/Units 15:10 15:10 15:10 RBC 3.68 L (4.7-6.1) M/uL Hgb 11.5 L (14.0-18.0) g/dL Hct 35.7 L (42-52) % RDW Std Deviation 52.5 H (36.4-46.3) fL RDW Coeff of Lizet 14.7 H (11.5-14.5) % MPV 11.3 H (7.4-10.4) fL Neut # (Auto) 7.44 H (1.4-6.5) K/uL Lymph # (Auto) 0.68 L (1.2-3.4) K/uL Sumner # (Auto) 0.67 H (0.11-0.59) K/uL PT 14.7 H (9.0-12.0) Seconds INR 1.5 H (0.9-1.1) APTT 37.0 H (21.0-31.0) Seconds Sodium 131 L (136-145) mmol/L Chloride (98-107) mmol/L BUN (7-18) mg/dl Creatinine 1.50 H (0.6-1.4) mg/dl Glucose 128 H (70-99) mg/dl POC Glucose (70-99) mg/dl Phosphorus 2.2 L (2.5-4.9) mg/dl Magnesium 1.6 L (1.8-2.4) mg/dl Direct Bilirubin 0.3 H (0-0.2) mg/dl Alkaline Phosphatase 133 H (45-117) U/L NT-Pro-B Natriuret Pep 4693 H (0-900) pg/ml Albumin 2.5 L (3.4-5.0) gm/dl Globulin 5.3 H (2.5-4.0) gm/dl Albumin/Globulin Ratio 0.5 L (0.9-2) Urine Protein (Negative) Urine Glucose (UA) (Negative) Urine Blood (Negative) Urine WBC (Auto) (0-5) /hpf U Epithel Cells (Auto) (0-5) /lpf 01/18/21 01/18/21 01/19/21 Range/Units 17:24 22:23 02:42 RBC (4.7-6.1) M/uL Hgb (14.0-18.0) g/dL Hct (42-52) % RDW Std Deviation (36.4-46.3) fL RDW Coeff of Lizet (11.5-14.5) % MPV (7.4-10.4) fL Neut # (Auto) (1.4-6.5) K/uL Lymph # (Auto) (1.2-3.4) K/uL Sumner # (Auto) (0.11-0.59) K/uL PT (9.0-12.0) Seconds INR (0.9-1.1) APTT (21.0-31.0) Seconds Sodium 130 L (136-145) mmol/L Chloride 96 L (98-107) mmol/L BUN 22 H (7-18) mg/dl Creatinine 1.46 H (0.6-1.4) mg/dl Glucose 216 H (70-99) mg/dl POC Glucose 271 H (70-99) mg/dl Phosphorus (2.5-4.9) mg/dl Magnesium (1.8-2.4) mg/dl Direct Bilirubin (0-0.2) mg/dl Alkaline Phosphatase (45-117) U/L NT-Pro-B Natriuret Pep (0-900) pg/ml Albumin (3.4-5.0) gm/dl Globulin (2.5-4.0) gm/dl Albumin/Globulin Ratio (0.9-2) Urine Protein 1+ H (Negative) Urine Glucose (UA) 3+ H (Negative) Urine Blood Trace H (Negative) Urine WBC (Auto) 5-10 H (0-5) /hpf U Epithel Cells (Auto) 5-10 H (0-5) /lpf 01/19/21 01/19/21 01/19/21 Range/Units 02:42 02:42 05:18 RBC 3.90 L (4.7-6.1) M/uL Hgb 11.9 L (14.0-18.0) g/dL Hct 36.5 L (42-52) % RDW Std Deviation 49.6 H (36.4-46.3) fL RDW Coeff of Lizet (11.5-14.5) % MPV (7.4-10.4) fL Neut # (Auto) 7.01 H (1.4-6.5) K/uL Lymph # (Auto) 0.56 L (1.2-3.4) K/uL Sumner # (Auto) (0.11-0.59) K/uL PT 14.9 H (9.0-12.0) Seconds INR 1.5 H (0.9-1.1) APTT > 139.0 H* > 139.0 H* (21.0-31.0) Seconds Sodium (136-145) mmol/L Chloride (98-107) mmol/L BUN (7-18) mg/dl Creatinine (0.6-1.4) mg/dl Glucose (70-99) mg/dl POC Glucose (70-99) mg/dl Phosphorus (2.5-4.9) mg/dl Magnesium (1.8-2.4) mg/dl Direct Bilirubin (0-0.2) mg/dl Alkaline Phosphatase (45-117) U/L NT-Pro-B Natriuret Pep (0-900) pg/ml Albumin (3.4-5.0) gm/dl Globulin (2.5-4.0) gm/dl Albumin/Globulin Ratio (0.9-2) Urine Protein (Negative) Urine Glucose (UA) (Negative) Urine Blood (Negative) Urine WBC (Auto) (0-5) /hpf U Epithel Cells (Auto) (0-5) /lpf 01/19/21 01/19/21 01/19/21 Range/Units 07:18 07:35 11:32 RBC (4.7-6.1) M/uL Hgb (14.0-18.0) g/dL Hct (42-52) % RDW Std Deviation (36.4-46.3) fL RDW Coeff of Lizet (11.5-14.5) % MPV (7.4-10.4) fL Neut # (Auto) (1.4-6.5) K/uL Lymph # (Auto) (1.2-3.4) K/uL Sumner # (Auto) (0.11-0.59) K/uL PT (9.0-12.0) Seconds INR (0.9-1.1) APTT 57.8 H* (21.0-31.0) Seconds Sodium (136-145) mmol/L Chloride (98-107) mmol/L BUN (7-18) mg/dl Creatinine (0.6-1.4) mg/dl Glucose (70-99) mg/dl POC Glucose 160 H 149 H (70-99) mg/dl Phosphorus (2.5-4.9) mg/dl Magnesium (1.8-2.4) mg/dl Direct Bilirubin (0-0.2) mg/dl Alkaline Phosphatase (45-117) U/L NT-Pro-B Natriuret Pep (0-900) pg/ml Albumin (3.4-5.0) gm/dl Globulin (2.5-4.0) gm/dl Albumin/Globulin Ratio (0.9-2) Urine Protein (Negative) Urine Glucose (UA) (Negative) Urine Blood (Negative) Urine WBC (Auto) (0-5) /hpf U Epithel Cells (Auto) (0-5) /lpf
[2021-01-19] MEDS: FERROUS SULFATE 325 MG TAB PO SCH (12:25)
--- NOTE | 2021-01-19 12:46 | Cardiology Consultation ---
Date of Consultation January 19, 2021 Assessment & Plan (1) Acute and chronic respiratory failure: (2) Pneumonia: (3) Chronic respiratory failure with hypoxia: (4) History of DVT (deep vein thrombosis): (5) Chronic respiratory failure with hypoxia and hypercapnia: (6) Pleural effusion: (7) Acute on chronic systolic heart failure: (8) COPD (chronic obstructive pulmonary disease): (9) History of pulmonary embolism: (10) Chronic left ventricular systolic heart failure: (11) PAD (peripheral artery disease): (12) PAF (paroxysmal atrial fibrillation): (13) HLD (hyperlipidemia): (14) History of pacemaker: (15) History of incision of pericardium: (16) Coronary artery disease: (17) Ischemic cardiomyopathy: (18) Chronic kidney disease stage 3: The patient is a very medically complex 75-year-old gentleman who presented to the emergency department with 1 day history of shortness of breath and fever. Upon arrival he was diagnosed with pneumonia and pulmonary emboli by CT of the chest. 2D echocardiogram performed showed significant RV strain and acute RV systolic heart failure leading to worsening LV systolic function as well. Given this acute RV failure and active lung processes the patient is significantly preload dependent and would hold off on diuretics at this time. Recommend continue to treat with antibiotics and anticoagulation Follow volume status clinically. Continue outpatient doses of metoprolol, rosuvastatin and warfarin with a goal INR of 2-3. Hopefully blood pressures will stabilize and will be able to add further guideline directed medical therapy including: Aldosterone antagonist, Entresto. History of Present Illness Reason for Consultation: Shortness of breath Requesting Physician: Katharina hospitalist group Attending Physician: Nehal Crenshaw MD History of Present Illness Mr. Canseco is a very pleasant yet medically complex 75-year-old gentleman who routinely follows with myself as an outpatient. He presented to [facility] on 01/18/2021 with complaints of worsening shortness of breath and fever. He denies any other cardiac complaints of chest pain, palpitations lightheadedness or dizziness. Upon arrival he was found to be febrile and hypoxic. He was given steroids and broad-spectrum antibiotics in the emergency room. CTA of the chest found pulmonary emboli and his INR was subtherapeutic so subsequently started on heparin anticoagulation. Currently patient states he feels well at rest and feels back to normal. Past medical history: 1.Coronary artery disease, status post inferior wall myocardial infarction with severe multivessel coronary artery disease, deemed nonamenable to intervention. 2.Ischemic cardiomyopathy, EF 45% to 49%. 3.Paroxysmal atrial fibrillation, atrial flutter. 4.History of DVT and pulmonary embolism, on chronic Coumadin therapy. 5.Hyperlipidemia. 6.History of pericardial effusion, status post window and drainage. 7.History of vasovagal/cough/orthostatic syncope. 8.COPD. 9.Peripheral arterial disease. 10.History of tobacco abuse. 11.Chronic kidney disease. 12.Tachybrady syndrome, status post permanent pacemaker placement. Allergies Allergy/AdvReac Type Severity Reaction Status Date / Time albuterol Allergy Severe CHOKING Verified 01/18/21 16:30 SENSATION ipratropium Allergy Severe CHOKING Verified 01/18/21 16:30 SENSATION onion Allergy Intermediate RASH Verified 01/18/21 16:30 levofloxacin Allergy Mild other Verified 01/18/21 16:30 spironolactone AdvReac Severe Problems Unverified 01/18/21 16:30 with breathing atorvastatin AdvReac Intermediate Muscle Pain Verified 01/18/21 16:30 metformin AdvReac Intermediate Diarrhea Verified 01/18/21 16:30 Home Medications Medication Instructions Recorded Confirmed Type Lantus Solostar U-100 Insulin 20 unit SUBCUT HS 04/11/18 01/18/21 History allopurinol [Zyloprim] 300 mg PO HS 04/11/18 01/18/21 History montelukast [Singulair] 10 mg PO HS 04/11/18 01/18/21 History nitroglycerin 0.4 mg SUBLINGUAL UD PRN 04/11/18 01/18/21 History primidone [Mysoline] 500 mg PO HS 04/11/18 01/18/21 History rosuvastatin [Crestor] 40 mg PO HS 04/11/18 01/18/21 History aspirin 325 mg PO HS 08/08/19 01/18/21 History metoprolol succinate 25 mg PO HS 08/08/19 01/18/21 History ferrous sulfate [iron] 325 mg PO Q OTHER DAY 01/09/20 01/18/21 History warfarin [Jantoven] 4 mg PO MOWEFR@2100 03/14/20 01/18/21 History warfarin [Jantoven] 6 mg PO SUTUTHSA@2100 03/14/20 01/18/21 History empagliflozin [Jardiance] 0 mg PO HS 10/18/20 01/18/21 History Patient History Medical History Abnormal CT scan, chest Bronchiectasis Chronic kidney disease stage 3 Chronic left ventricular systolic heart failure Chronic respiratory failure with hypoxia and hypercapnia COPD (chronic obstructive pulmonary disease) Coronary artery disease "S/P inferior CA, severe multivessel disease not amenable to intervention" per 2012 cath Diabetes mellitus, type 2 IDDM Diabetic foot ulcer GERD (gastroesophageal reflux disease) Gout Hearing deficit BL KOO History of CVA (cerebrovascular accident) "YEARS AGO" - reports he has had a tremor ever since stroke. 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 CRANE Seizure QUESTIONABLE- EEG 1 WEEK AGO FOR QUESTIONABLE SEIZURE (reported convulsions, loss of consciousness 1 week ago while watching TV) - [place] [facility] - EEG unremarkable Tremor Surgical History History of bronchoscopy History of cardiac cath MULTIPLE - NO STENTS [place] (could not recall dates - most recent in system is from 2011 [place]) History of cholecystectomy 2014 History of incision of pericardium pericardial window secondary to pericardial effusion History of pacemaker PLACED 10/2017 FOR [employer] - [employer] - LAST CHECKED 05/2019 History of tonsillectomy S/P cystoscopy with ureteral stent placement 07/25/2019 [facility] 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 Quit in 1971; Second Hand Exposure: No; Hx Alcohol Use: Yes Alcohol type: beer and hard liquor Hx Substance Use: No Preferred Language: [place] Verdean Communication Ability: Effective Manager Of Sustainability Required: No Beliefs That Will Affect Care: None and Denominational Denominational Beliefs: Orthodox. 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 No acute distress. HEENT: Normocephalic, atraumatic. Pupils equal, round and reactive to light and accommodation. Extraocular muscles are intact. Anicteric sclera. Moist mucous membranes. Neck: No JVD. No bruit. Cardiovascular: irregularly irregular, unable to appreciate murmur, rub or gallop. Pulmonary: Poor air movement bilaterally with harsh breath sounds. Diffuse rhonchi, wheezing and bibasilar Rales. Abdomen: Bowel sounds x 4, soft. No rebound, guarding or tenderness. No organomegaly. Extremities: No clubbing, cyanosis. +2 bilateral lower extremity pitting edema. +2 pedal pulses bilaterally. Skin: Warm and dry. Results & Data ([facility]) Vital Signs (Past 12 Hours) Vital Signs Temp Pulse Pulse Resp BP Pulse Ox 01/19/21 11:45 36.4 C L 61 16 87/53 L 98 01/19/21 08:28 36.4 C L 65 18 108/66 99 01/19/21 03:43 36.4 C L 61 20 126/75 98 01/19/21 01:25 66 (1) COPD (chronic obstructive pulmonary disease) COPD type: unspecified COPD Qualified Code(s): J44.9 - Chronic obstructive pulmonary disease, unspecified
[2021-01-19] MEDS: SODIUM CHLORIDE 0.9% 1000ML 1,000 ML IV SCH (13:55)
[2021-01-19 15:12] LABS: Partial Thromboplastin Ratio 4.6
[2021-01-19 15:31] LABS: Partial Thromboplastin Time 119.8 Seconds (21.0-31.0)
--- NOTE | 2021-01-19 15:50 | Ultrasound Report ---
ULTRASOUND KIDNEYS AND BLADDER CLINICAL HISTORY: Acute on chronic renal insufficiency. COMPARISON STUDY: Abdominal CT dated 08/20/2019. TECHNIQUE: Real-time, grayscale, and color flow sonography of the kidneys and bladder is performed. I mages are reviewed in the transverse and longitudinal planes. FINDINGS: Kidneys: The kidneys demonstrate cortical atrophy. Echotexture is normal. The right kidney measures 1 0.4 x 4.7 x 5.5 cm and the left kidney measures 9.8 x 4.5 x 4.5 cm. There is moderate right hydrouret eronephrosis. No hydronephrosis is seen on the left. No shadowing renal calculi are identified. There is no sonographic evidence of contour deforming renal mass lesion. No perinephric fluid is identifie d. Bladder: The bladder is normal in appearance. Bilateral ureteral jets were seen. IMPRESSION: 1. The kidneys demonstrate mild cortical atrophy. 2. There is moderate right-sided hydronephrosis. 3. No hydronephrosis is seen on the left. 4. Both ureteral jets were identified. ACT 112: Negative or not required by law. Electronically signed by: John Mackay M.D. 01/19/2021 3:49 PM
[2021-01-19] MEDS: WARFARIN SOD 5 MG TAB PO SCH (16:48)
[2021-01-19] MEDS: allopurinoL 300 MG TAB PO SCH (20:44)
[2021-01-19] MEDS: PRIMIDONE 250 MG TAB PO SCH (20:44)
[2021-01-19] MEDS: ROSUVASTATIN CALCIUM 20 MG TAB PO SCH (20:44)
[2021-01-19] MEDS: MONTELUKAST SODIUM 10 MG TABLET PO SCH (20:44)
[2021-01-19] MEDS: ASPIRIN 325 MG ECTAB PO SCH (20:44)
[2021-01-19] MEDS: METOPROLOL SUCC 25MG EXT REL TAB PO SCH (20:44)
[2021-01-19] MEDS: INSULIN GLARGINE SOLOSTAR 100 UNITS/ML 3 ML PEN SC SCH (20:45)
[2021-01-19] MEDS: POTASSIUM CHLORIDE CRTAB 20 MEQ TABCR PO SCH (20:45)
[2021-01-19] MEDS: HEPARIN SODIUM/DEXTROSE 25,000 UNITS/500 ML BAG IV SCH (20:53)
[2021-01-19 23:07] LABS: Partial Thromboplastin Ratio 3.4
[2021-01-19 23:12] LABS: Partial Thromboplastin Time 89.7 Seconds (21.0-31.0)
[2021-01-20] MEDS: SODIUM CHLORIDE 0.9% 1000ML 1,000 ML IV SCH ×2 (02:24→14:14)
--- NOTE | 2021-01-20 05:39 | Electrocardiogram Report ---
Test Reason : Blood Pressure : / mmHG Vent. Rate : 074 BPM Atrial Rate : 074 BPM P-R Int : 152 ms QRS Dur : 116 ms QT Int : 416 ms P-R-T Axes : 115 060 081 degrees QTc Int : 461 ms Normal sinus rhythm Nonspecific ST abnormality Abnormal ECG When compared with ECG of 02-APR-2020 10:37, Sinus rhythm has replaced Electronic atrial pacemaker QRS duration has increased QT has lengthened Confirmed by Serjio Huitron ([id number]) on 01/20/2021 5:39:36 AM Referred By: REFERRED SELF Confirmed By:Serjio Huitron
[2021-01-20 06:57] LABS: Hematocrit (blood only) 33.7 % (42-52); Hemoglobin 10.7 g/dL (14.0-18.0); Mean Corpuscular Hemoglobin 29.7 pg (25-34); Mean Corpuscular Hgb Conc 31.8 g/dL (32-36); Mean Corpuscular Volume 93.6 fL (80-100); Mean Platelet Volume 11.3 fL (7.4-10.4); Platelet Count 170 K/uL (130-400); RDW Coefficient of Variation 14.5 % (11.5-14.5); RDW Standard Deviation 49.5 fL (36.4-46.3); White Blood Count 6.64 K/uL (4.8-10.8)
[2021-01-20 07:17] LABS: INR 1.9 (0.9-1.1); Partial Thromboplastin Ratio 3.1
[2021-01-20 07:22] LABS: Partial Thromboplastin Time 82.4 Seconds (21.0-31.0)
[2021-01-20 07:24] LABS: BUN Creatinine Ratio 26.7 (10-20); Calcium 8.5 mg/dl (8.5-10.1); Creatinine Clr Calc Pharmacy 71.3 ml/min; Est GFR (African American) 73.5 ml/min; Est GFR (Non-African American) 63.4 ml/min
[2021-01-20] MEDS: cefTRIAXone SODIUM 2,000 MG in DEXTROSE 5% 50 ML IV SCH (07:37)
[2021-01-20] MEDS: DOXYCYCLINE HYCLATE 100 MG CAP PO SCH ×2 (07:38→21:33)
[2021-01-20] MEDS: predniSONE 20 MG TAB PO SCH (07:38)
[2021-01-20] MEDS: INSULIN ASPART 100 UNITS/ML 3 ML PEN SC SCH ×4 (07:39→21:38)
--- NOTE | 2021-01-20 11:51 | Hospitalist Progress Note ---
Date of Service January 20, 2021 Assessment & Plan (1) Acute and chronic respiratory failure: Hx of chronic respiratory failure secondary to COPD/bronchiectasis on home O2 History noncompliance per outpatient pulmonology notes Patient apparently has stopped oxygen on his own prior to admission per his report as well as pulm outpatient note Possible sepsis Bronchopneumonia Gram positive bacteremia CT angio does show left greater than right basilar bronchiectasis with bronchial wall thickening and mucous plugging as well as patchy bibasilar consolidative and groundglass opacities suggestive of atelectasis versus pneumonitis Blood culture growing GPC in chains, preliminary reports stating possible Enterococcus. Discussed with pharmacist. Will change antibiotics from ceftriaxone to ampicillin for now and follow-up final speciation and sensitivities Follow-up repeat blood cultures from yesterday TTE noted. Does not report any vegetation We will get ID consult in view of bacteremia with possible Enterococcus Patient hypoxia is likely multifactorial in view of -Bronchopneumonia (as detailed above) -PE as seen on CTA and -Acute on chronic systolic heart failure -Acute right ventricular failure Patient is on Coumadin at home. However INR is still subtherapeutic at 1.9 We will continue heparin Coumadin bridge Plan to DC heparin drip once INR is therapeutic Review of outpatient cardiology note from 11/03/2020 Patient Lasix was stopped due to volume depletion. CT angio does report cardiomegaly, pulmonary edema with trace left and small right pleural effusion. Echo showed acute right ventricular failure with dilation, RV pressure/volume overload as well as increased PASP from prior. Patient EF also reduced from prior echo now down to 35 to 40%. Cardiology evaluation and recommendation noted. 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 IV heparinCoumadin bridge therapy Full code Admission and Anticipated Discharge Date Admission Date: January 18, 2021 Subjective 75-year-old man with history of COPD on home oxygen at 2 L, bronchiectasis, pulmonary nodules, past tobacco use, chronic systolic heart failure secondary to ischemic cardiomyopathy with EF of 45 to 50%, CAD, CVA, PVD per records, sick sinus syndrome status post pacemaker, PE on Coumadin, hypertension, DM type II on insulin, MGUS, CKD 3 who presented to the ER for fever and cough. Patient seen and examined this morning. Patient reports only chronic cough unchanged. Denies any other complaints at this time Review of Systems Review of Systems: All systems reviewed & are unremarkable except as noted in Subjective Physical Exam Constitutional: + well hydrated; no acute distress Eyes: PERRL, conjunctivae normal, anicteric sclerae ENMT: external ear and nose normal, oropharynx normal Respiratory: normal respiratory effort; no respiratory distress Decreased breath sounds, no crackles Cardiovascular: Rate/Rhythm: regular rate and regular rhythm S1-S2, bilateral lower extremity pitting edema Gastrointestinal (Abdomen): normal bowel sounds, soft, nontender, no hepatosplenomegaly Musculoskeletal: no cyanosis or clubbing, extremities motor strength 5/5 Bilateral pitting pedal edema Neurologic: PERRL, EOMI, accommodation nl, no face palsy, no dysarthria Psychiatric: A+Ox3, euthymic affect Genitourinary: no CVA tenderness Results & Data Results & Data ([facility]) Vital Signs (Past 12 Hours) Vital Signs Temp Pulse Pulse Resp BP Pulse Ox 01/20/21 11:47 36.7 C 69 20 135/73 100 01/20/21 08:00 60 01/20/21 07:40 36.6 C 64 18 136/84 100 01/20/21 03:52 36.3 C L 60 18 112/73 98 Laboratory Results Abnormal lab results 01/19/21 01/19/21 01/19/21 Range/Units 14:27 16:26 20:43 RBC (4.7-6.1) M/uL Hgb (14.0-18.0) g/dL Hct (42-52) % MCHC (32-36) g/dL RDW Std Deviation (36.4-46.3) fL MPV (7.4-10.4) fL PT (9.0-12.0) Seconds INR (0.9-1.1) APTT 119.8 H* (21.0-31.0) Seconds BUN (7-18) mg/dl BUN/Creatinine Ratio (10-20) Glucose (70-99) mg/dl POC Glucose 123 H 239 H (70-99) mg/dl 01/19/21 01/20/21 01/20/21 Range/Units 22:29 06:39 06:39 RBC 3.60 L (4.7-6.1) M/uL Hgb 10.7 L (14.0-18.0) g/dL Hct 33.7 L (42-52) % MCHC 31.8 L (32-36) g/dL RDW Std Deviation 49.5 H (36.4-46.3) fL MPV 11.3 H (7.4-10.4) fL PT (9.0-12.0) Seconds INR (0.9-1.1) APTT 89.7 H* (21.0-31.0) Seconds BUN 30 H (7-18) mg/dl BUN/Creatinine Ratio 26.7 H (10-20) Glucose 108 H (70-99) mg/dl POC Glucose (70-99) mg/dl 01/20/21 01/20/21 Range/Units 06:39 11:39 RBC (4.7-6.1) M/uL Hgb (14.0-18.0) g/dL Hct (42-52) % MCHC (32-36) g/dL RDW Std Deviation (36.4-46.3) fL MPV (7.4-10.4) fL PT 18.0 H (9.0-12.0) Seconds INR 1.9 H (0.9-1.1) APTT 82.4 H* (21.0-31.0) Seconds BUN (7-18) mg/dl BUN/Creatinine Ratio (10-20) Glucose (70-99) mg/dl POC Glucose 131 H (70-99) mg/dl
[2021-01-20] MEDS: AMPICILLIN 2,000 MG in SODIUM CHLOR 0.9% AD-VAN 100 ML IV SCH ×3 (12:36→21:30)
[2021-01-20 13:45] LABS: Partial Thromboplastin Ratio 2.1
[2021-01-20 13:51] LABS: Partial Thromboplastin Time 54.3 Seconds (21.0-31.0)
--- NOTE | 2021-01-20 15:08 | Cardiology Progress Note ---
Date of Service January 20, 2021 Assessment & Plan (1) Acute and chronic respiratory failure: (2) Pneumonia: (3) Chronic respiratory failure with hypoxia: (4) History of DVT (deep vein thrombosis): (5) Chronic respiratory failure with hypoxia and hypercapnia: (6) Pleural effusion: (7) Acute on chronic systolic heart failure: (8) COPD (chronic obstructive pulmonary disease): (9) History of pulmonary embolism: (10) Chronic left ventricular systolic heart failure: (11) PAD (peripheral artery disease): (12) PAF (paroxysmal atrial fibrillation): (13) HLD (hyperlipidemia): (14) History of pacemaker: (15) History of incision of pericardium: (16) Coronary artery disease: (17) Ischemic cardiomyopathy: (18) Chronic kidney disease stage 3: The patient is a very medically complex 75-year-old gentleman who presented to the emergency department with 1 day history of shortness of breath and fever. Upon arrival he was diagnosed with pneumonia and pulmonary emboli by CT of the chest. 2D echocardiogram performed showed significant RV strain and acute RV systolic heart failure leading to worsening LV systolic function as well. Given this acute RV failure and active lung processes the patient is significantly preload dependent and would hold off on diuretics at this time. Recommend continue to treat with antibiotics and anticoagulation Follow volume status clinically. Continue outpatient doses of metoprolol, rosuvastatin and warfarin with a goal INR of 2-3. Hopefully blood pressures will stabilize and will be able to add further guideline directed medical therapy including: Aldosterone antagonist, Entresto. Admission and Anticipated Discharge Date Admission Date: January 18, 2021 Physical Exam Physical Exam: General: Awake, alert and oriented x 3. No acute distress. HEENT: Normocephalic, atraumatic. Pupils equal, round and reactive to light and accommodation. Extraocular muscles are intact. Anicteric sclera. Moist mucous membranes. Neck: No JVD. No bruit. Cardiovascular: irregularly irregular, unable to appreciate murmur, rub or gallop. Pulmonary: Poor air movement bilaterally with harsh breath sounds. Diffuse rhonchi, wheezing and bibasilar Rales. Abdomen: Bowel sounds x 4, soft. No rebound, guarding or tenderness. No organomegaly. Extremities: No clubbing, cyanosis. +2 bilateral lower extremity pitting edema. +2 pedal pulses bilaterally. Skin: Warm and dry. Results & Data ([facility]) Vital Signs (Past 12 Hours) Vital Signs Temp Pulse Pulse Resp BP Pulse Ox 01/20/21 11:47 36.7 C 69 20 135/73 100 01/20/21 08:00 60 01/20/21 07:40 36.6 C 64 18 136/84 100 01/20/21 03:52 36.3 C L 60 18 112/73 98 (1) COPD (chronic obstructive pulmonary disease) COPD type: unspecified COPD Qualified Code(s): J44.9 - Chronic obstructive pulmonary disease, unspecified
[2021-01-20] MEDS: WARFARIN SOD 5 MG TAB PO SCH (16:04)
[2021-01-20] MEDS: ROSUVASTATIN CALCIUM 20 MG TAB PO SCH (21:30)
[2021-01-20] MEDS: HEPARIN SODIUM/DEXTROSE 25,000 UNITS/500 ML BAG IV SCH (21:30)
[2021-01-20] MEDS: ASPIRIN 325 MG ECTAB PO SCH (21:33)
[2021-01-20] MEDS: PRIMIDONE 250 MG TAB PO SCH (21:33)
[2021-01-20] MEDS: POTASSIUM CHLORIDE CRTAB 20 MEQ TABCR PO SCH (21:33)
[2021-01-20] MEDS: allopurinoL 300 MG TAB PO SCH (21:33)
[2021-01-20] MEDS: MONTELUKAST SODIUM 10 MG TABLET PO SCH (21:33)
[2021-01-20] MEDS: METOPROLOL SUCC 25MG EXT REL TAB PO SCH (21:33)
[2021-01-20] MEDS: INSULIN GLARGINE SOLOSTAR 100 UNITS/ML 3 ML PEN SC SCH (21:37)
[2021-01-21] MEDS: SODIUM CHLORIDE 0.9% 1000ML 1,000 ML IV SCH (01:21)
[2021-01-21] MEDS: AMPICILLIN 2,000 MG in SODIUM CHLOR 0.9% AD-VAN 100 ML IV SCH ×6 (01:21→20:06)
[2021-01-21 06:39] LABS: Hematocrit (blood only) 34.2 % (42-52); Hemoglobin 10.7 g/dL (14.0-18.0); Mean Corpuscular Hemoglobin 30.5 pg (25-34); Mean Corpuscular Hgb Conc 31.3 g/dL (32-36); Mean Corpuscular Volume 97.4 fL (80-100); Mean Platelet Volume 10.6 fL (7.4-10.4); Platelet Count 158 K/uL (130-400); RDW Coefficient of Variation 14.5 % (11.5-14.5); RDW Standard Deviation 51.9 fL (36.4-46.3); Red Blood Count 3.51 M/uL (4.7-6.1); White Blood Count 5.16 K/uL (4.8-10.8)
[2021-01-21 07:00] LABS: INR 2.4 (0.9-1.1); Partial Thromboplastin Ratio 2.5; Prothrombin Time 22.6 Seconds (9.0-12.0)
[2021-01-21 07:01] LABS: Partial Thromboplastin Time 66.4 Seconds (21.0-31.0)
[2021-01-21 07:15] LABS: Calcium 8.4 mg/dl (8.5-10.1); Est GFR (African American) 82.2 ml/min; Est GFR (Non-African American) 70.9 ml/min; Potassium 3.6 mmol/L (3.5-5.1)
[2021-01-21] MEDS: predniSONE 20 MG TAB PO SCH (08:03)
[2021-01-21] MEDS: INSULIN ASPART 100 UNITS/ML 3 ML PEN SC SCH ×4 (08:08→20:46)
[2021-01-21] MEDS: DOXYCYCLINE HYCLATE 100 MG CAP PO SCH ×2 (08:09→20:46)
[2021-01-21] MEDS: FERROUS SULFATE 325 MG TAB PO SCH (12:35)
--- NOTE | 2021-01-21 13:45 | Hospitalist Progress Note ---
Date of Service January 21, 2021 Assessment & Plan (1) Acute and chronic respiratory failure: Hx of chronic respiratory failure secondary to COPD/bronchiectasis on home O2 History noncompliance per outpatient pulmonology notes Patient apparently has stopped oxygen on his own prior to admission per his report as well as pulm outpatient note Possible sepsis Bronchopneumonia Gram positive bacteremia CT angio does show left greater than right basilar bronchiectasis with bronchial wall thickening and mucous plugging as well as patchy bibasilar consolidative and groundglass opacities suggestive of atelectasis versus pneumonitis Blood culture growing Enterococcus. Currently on ampicillin Awaiting sensitivities Repeat blood cultures negative so far TTE noted. Does not report any vegetation Awaiting ID evaluation Patient hypoxia is likely multifactorial in view of -Bronchopneumonia (as detailed above) -PE as seen on CTA and -Acute on chronic systolic heart failure -Acute right ventricular failure Patient is on Coumadin at home. However INR is therapeutic now Heparin drip discontinued In view of rapid increase in INR, reduce warfarin to 4mg daily and monitor Review of outpatient cardiology note from 11/03/2020 Patient Lasix was stopped due to volume depletion. CT angio does report cardiomegaly, pulmonary edema with trace left and small right pleural effusion. Echo showed acute right ventricular failure with dilation, RV pressure/volume overload as well as increased PASP from prior. Patient EF also reduced from prior echo now down to 35 to 40%. Cardiology evaluation and recommendation noted. Hold off diuretics as patient is well independent to baseline right ventricular failure and PE Pulmonary nodules (present on outpatient CT chest October 2020), patient follows with [employer] audio [employer] History of CAD/CVA/PVD as per records SSS sp PPM, patient NSR, INR subtherapeutic Hypertension BP normal Monitor Cardiology on board MARY on CKD 3 Likely secondary to illness MARY resolved Monitor renal function and urine output Creatinine improved to 1.04 today DM2 Well-controlled as of recent hemoglobin A1c of 7, September 2020 Insulin per protocol while inpatient Chronic anemia Baseline hemoglobin of 11 DVT prophylaxis. Coumadin Get PT/OT evaluation Full code Admission and Anticipated Discharge Date Admission Date: January 18, 2021 Subjective 75-year-old man with history of COPD on home oxygen at 2 L, bronchiectasis, pul monary nodules, past tobacco use, chronic systolic heart failure secondary to ischemic cardiomyopathy with EF of 45 to 50%, CAD, CVA, PVD per records, sick sinus syndrome status post pacemaker, PE on Coumadin, hypertension, DM type II on insulin, MGUS, CKD 3 who presented to the ER for fever and cough. Patient seen and examined. Patient reports only chronic cough unchanged. Reports some unsteadiness on his feet and weakness Denied other complaints Review of Systems Review of Systems: All systems reviewed & are unremarkable except as noted in Subjective Physical Exam Constitutional: + well hydrated; no acute distress Eyes: PERRL, conjunctivae normal, anicteric sclerae ENMT: external ear and nose normal, oropharynx normal Respiratory: normal respiratory effort; no respiratory distress Cardiovascular: Rate/Rhythm: regular rate and regular rhythm S1 S2. Bilateral pitting pedal edema Gastrointestinal (Abdomen): normal bowel sounds, soft, nontender, no hepatosplenomegaly Musculoskeletal: no cyanosis or clubbing, extremities motor strength 5/5 Neurologic: PERRL, EOMI, accommodation nl, no face palsy, no dysarthria Psychiatric: A+Ox3, euthymic affect Genitourinary: no CVA tenderness Results & Data Results & Data ([facility]) Vital Signs (Past 12 Hours) Vital Signs Temp Pulse Pulse Resp BP Pulse Ox 01/21/21 11:45 37.0 C 87 16 124/64 95 01/21/21 09:54 60 01/21/21 08:02 36.5 C 60 18 130/72 96 01/21/21 03:01 36.4 C L 60 18 137/65 100 Laboratory Results Abnormal lab results 01/20/21 01/20/21 01/20/21 Range/Units 13:13 16:41 20:18 RBC (4.7-6.1) M/uL Hgb (14.0-18.0) g/dL Hct (42-52) % MCHC (32-36) g/dL RDW Std Deviation (36.4-46.3) fL MPV (7.4-10.4) fL PT (9.0-12.0) Seconds INR (0.9-1.1) APTT 54.3 H* (21.0-31.0) Seconds BUN (7-18) mg/dl BUN/Creatinine Ratio (10-20) Glucose (70-99) mg/dl POC Glucose 177 H 166 H (70-99) mg/dl Calcium (8.5-10.1) mg/dl 01/21/21 01/21/21 01/21/21 Range/Units 06:12 06:12 06:12 RBC 3.51 L (4.7-6.1) M/uL Hgb 10.7 L (14.0-18.0) g/dL Hct 34.2 L (42-52) % MCHC 31.3 L (32-36) g/dL RDW Std Deviation 51.9 H (36.4-46.3) fL MPV 10.6 H (7.4-10.4) fL PT 22.6 H (9.0-12.0) Seconds INR 2.4 H (0.9-1.1) APTT 66.4 H* (21.0-31.0) Seconds BUN 26 H (7-18) mg/dl BUN/Creatinine Ratio 25.0 H (10-20) Glucose 62 L (70-99) mg/dl POC Glucose (70-99) mg/dl Calcium 8.4 L (8.5-10.1) mg/dl 01/21/21 01/21/21 01/21/21 Range/Units 07:44 07:45 11:23 RBC (4.7-6.1) M/uL Hgb (14.0-18.0) g/dL Hct (42-52) % MCHC (32-36) g/dL RDW Std Deviation (36.4-46.3) fL MPV (7.4-10.4) fL PT (9.0-12.0) Seconds INR (0.9-1.1) APTT (21.0-31.0) Seconds BUN (7-18) mg/dl BUN/Creatinine Ratio (10-20) Glucose (70-99) mg/dl POC Glucose 61 L* 68 L* 105 H (70-99) mg/dl Calcium (8.5-10.1) mg/dl
[2021-01-21] MEDS: WARFARIN SOD 4 MG TAB PO SCH (17:17)
--- NOTE | 2021-01-21 19:22 | Cardiology Progress Note ---
Date of Service January 21, 2021 Assessment & Plan (1) Acute and chronic respiratory failure: (2) Pneumonia: (3) Chronic respiratory failure with hypoxia: (4) History of DVT (deep vein thrombosis): (5) Chronic respiratory failure with hypoxia and hypercapnia: (6) Pleural effusion: (7) Acute on chronic systolic heart failure: (8) COPD (chronic obstructive pulmonary disease): (9) History of pulmonary embolism: (10) Chronic left ventricular systolic heart failure: (11) PAD (peripheral artery disease): (12) PAF (paroxysmal atrial fibrillation): (13) HLD (hyperlipidemia): (14) History of pacemaker: (15) History of incision of pericardium: (16) Coronary artery disease: (17) Ischemic cardiomyopathy: (18) Chronic kidney disease stage 3: The patient is a very medically complex 75-year-old gentleman who presented to the emergency department with 1 day history of shortness of breath and fever. Upon arrival he was diagnosed with pneumonia and pulmonary emboli by CT of the chest. 2D echocardiogram performed showed significant RV strain and acute RV systolic heart failure leading to worsening LV systolic function as well. Given this acute RV failure and active lung processes the patient is significantly preload dependent and would hold off on diuretics at this time. Recommend continue to treat with antibiotics and anticoagulation Follow volume status clinically. Continue outpatient doses of metoprolol, rosuvastatin and warfarin with a goal INR of 2-3. BP improving, will reevaluate volume status clinically in AM Admission and Anticipated Discharge Date Admission Date: January 18, 2021 Subjective Pt seen and examined, chart reviewed. States that he continues to feel "like crap" but breathing somewhat improved from presentation. Denies cp, palpitations or lightheadedness. Review of Systems Review of Systems: All systems reviewed & are unremarkable except as noted in HPI & below Physical Exam Physical Exam: General: Awake, alert and oriented x 3. No acute distress. HEENT: Normocephalic, atraumatic. Pupils equal, round and reactive to light and accommodation. Extraocular muscles are intact. Anicteric sclera. Moist mucous membranes. Neck: No JVD. No bruit. Cardiovascular: irregularly irregular, unable to appreciate murmur, rub or gallop. Pulmonary: Poor air movement bilaterally with harsh breath sounds. Diffuse rhonchi, wheezing and bibasilar Rales. Abdomen: Bowel sounds x 4, soft. No rebound, guarding or tenderness. No organomegaly. Extremities: No clubbing, cyanosis. +2 bilateral lower extremity pitting edema. +2 pedal pulses bilaterally. Skin: Warm and dry. Results & Data ([facility]) Vital Signs (Past 12 Hours) Vital Signs Temp Pulse Pulse Resp BP Pulse Ox 01/21/21 19:14 36.5 C 77 19 162/68 H 98 01/21/21 17:04 37.0 C 66 16 118/62 95 01/21/21 11:45 37.0 C 87 16 124/64 95 01/21/21 09:54 60 01/21/21 08:02 36.5 C 60 18 130/72 96 (1) COPD (chronic obstructive pulmonary disease) COPD type: unspecified COPD Qualified Code(s): J44.9 - Chronic obstructive pulmonary disease, unspecified
[2021-01-21] MEDS: MONTELUKAST SODIUM 10 MG TABLET PO SCH (20:45)
[2021-01-21] MEDS: allopurinoL 300 MG TAB PO SCH (20:45)
[2021-01-21] MEDS: PRIMIDONE 250 MG TAB PO SCH (20:45)
[2021-01-21] MEDS: ASPIRIN 325 MG ECTAB PO SCH (20:46)
[2021-01-21] MEDS: POTASSIUM CHLORIDE CRTAB 20 MEQ TABCR PO SCH (20:46)
[2021-01-21] MEDS: METOPROLOL SUCC 25MG EXT REL TAB PO SCH (20:46)
[2021-01-21] MEDS: ROSUVASTATIN CALCIUM 20 MG TAB PO SCH (20:46)
[2021-01-21] MEDS: INSULIN GLARGINE SOLOSTAR 100 UNITS/ML 3 ML PEN SC SCH (20:47)
[2021-01-22] MEDS: AMPICILLIN 2,000 MG in SODIUM CHLOR 0.9% AD-VAN 100 ML IV SCH ×6 (00:16→20:24)
[2021-01-22 06:25] LABS: Hematocrit (blood only) 35.1 % (42-52); Hemoglobin 10.9 g/dL (14.0-18.0); Mean Corpuscular Hemoglobin 30.4 pg (25-34); Mean Corpuscular Hgb Conc 31.1 g/dL (32-36); Mean Corpuscular Volume 97.8 fL (80-100); Mean Platelet Volume 11.1 fL (7.4-10.4); Platelet Count 164 K/uL (130-400); RDW Coefficient of Variation 14.5 % (11.5-14.5); RDW Standard Deviation 52.1 fL (36.4-46.3); Red Blood Count 3.59 M/uL (4.7-6.1); White Blood Count 5.11 K/uL (4.8-10.8)
[2021-01-22 06:35] LABS: INR 2.7 (0.9-1.1); Partial Thromboplastin Ratio 1.4; Partial Thromboplastin Time 36.3 Seconds (21.0-31.0); Prothrombin Time 25.3 Seconds (9.0-12.0)
[2021-01-22 07:11] LABS: BUN Creatinine Ratio 25.1 (10-20); Calcium 8.4 mg/dl (8.5-10.1); Est GFR (African American) 89.4 ml/min; Est GFR (Non-African American) 77.1 ml/min; Potassium 3.6 mmol/L (3.5-5.1)
[2021-01-22] MEDS: INSULIN ASPART 100 UNITS/ML 3 ML PEN SC SCH ×4 (07:47→20:24)
[2021-01-22] MEDS: DOXYCYCLINE HYCLATE 100 MG CAP PO SCH ×2 (08:43→20:20)
[2021-01-22] MEDS: predniSONE 20 MG TAB PO SCH (08:43)
--- NOTE | 2021-01-22 13:20 | Hospitalist Progress Note ---
Date of Service January 22, 2021 Assessment & Plan (1) Acute and chronic respiratory failure: Hx of chronic respiratory failure secondary to COPD/bronchiectasis on home O2 History noncompliance per outpatient pulmonology notes Patient apparently has stopped oxygen on his own prior to admission per his report as well as pulm outpatient note Possible sepsis Bronchopneumonia Gram positive bacteremia CT angio does show left greater than right basilar bronchiectasis with bronchial wall thickening and mucous plugging as well as patchy bibasilar consolidative and groundglass opacities suggestive of atelectasis versus pneumonitis Blood culture growing Enterococcus. Currently on ampicillin Awaiting sensitivities Repeat blood cultures negative so far TTE noted. Does not report any vegetation Awaiting ID evaluation. Per RN, ID saw him today. Will follow up consult note Patient hypoxia is likely multifactorial in view of -Bronchopneumonia (as detailed above) -PE as seen on CTA and -Acute on chronic systolic heart failure -Acute right ventricular failure Patient is on Coumadin at home. However INR is therapeutic now INR is 2.7. Monitor Continue warfarin Review of outpatient cardiology note from 11/03/2020 Patient Lasix was stopped due to volume depletion. CT angio does report cardiomegaly, pulmonary edema with trace left and small right pleural effusion. Echo showed acute right ventricular failure with dilation, RV pressure/volume overload as well as increased PASP from prior. Patient EF also reduced from prior echo now down to 35 to 40%. Cardiology evaluation and recommendation noted. 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 Coumadin Get PT/OT evaluation Full code Admission and Anticipated Discharge Date Admission Date: January 18, 2021 Subjective 75-year-old man with history of COPD on home oxygen at 2 L, bronchiectasis, pulmonary nodules, past tobacco use, chronic systolic heart failure secondary to ischemic cardiomyopathy with EF of 45 to 50%, CAD, CVA, PVD per records, sick sinus syndrome status post pacemaker, PE on Coumadin, hypertension, DM type II on insulin, MGUS, CKD 3 who presented to the ER for fever and cough. Patient seen and examined. Patient reports only chronic cough unchanged. Has chronic leg swelling Reports improvement in weakness Review of Systems Review of Systems: All systems reviewed & are unremarkable except as noted in Subjective Physical Exam Constitutional: + well hydrated; no acute distress Eyes: PERRL, conjunctivae normal, anicteric sclerae ENMT: external ear and nose normal, oropharynx normal Respiratory: normal respiratory effort; no respiratory distress Diminished breath sounds. Mild basilar crackles Cardiovascular: Rate/Rhythm: regular rate and regular rhythm S1 S2 Gastrointestinal (Abdomen): normal bowel sounds, soft, nontender, no hepatosplenomegaly Musculoskeletal: no cyanosis or clubbing, extremities motor strength 5/5 2+ bilateral pitting edema Neurologic: PERRL, EOMI, accommodation nl, no face palsy, no dysarthria Psychiatric: A+Ox3, euthymic affect Genitourinary: no CVA tenderness Results & Data Results & Data ([facility]) Vital Signs (Past 12 Hours) Vital Signs Temp Pulse Pulse Resp BP Pulse Ox 01/22/21 12:29 36.6 C 59 L 19 115/74 92 01/22/21 09:00 62 01/22/21 08:11 36.4 C L 60 18 120/69 95 01/22/21 03:26 36.6 C 60 17 106/65 98 Laboratory Results Abnormal lab results 01/21/21 01/21/21 01/22/21 Range/Units 16:11 20:14 05:40 RBC 3.59 L (4.7-6.1) M/uL Hgb 10.9 L (14.0-18.0) g/dL Hct 35.1 L (42-52) % MCHC 31.1 L (32-36) g/dL RDW Std Deviation 52.1 H (36.4-46.3) fL MPV 11.1 H (7.4-10.4) fL PT (9.0-12.0) Seconds INR (0.9-1.1) APTT (21.0-31.0) Seconds Chloride (98-107) mmol/L BUN (7-18) mg/dl BUN/Creatinine Ratio (10-20) Glucose (70-99) mg/dl POC Glucose 155 H 144 H (70-99) mg/dl Calcium (8.5-10.1) mg/dl 01/22/21 01/22/21 Range/Units 05:40 05:40 RBC (4.7-6.1) M/uL Hgb (14.0-18.0) g/dL Hct (42-52) % MCHC (32-36) g/dL RDW Std Deviation (36.4-46.3) fL MPV (7.4-10.4) fL PT 25.3 H (9.0-12.0) Seconds INR 2.7 H (0.9-1.1) APTT 36.3 H (21.0-31.0) Seconds Chloride 108 H (98-107) mmol/L BUN 24 H (7-18) mg/dl BUN/Creatinine Ratio 25.1 H (10-20) Glucose 59 L (70-99) mg/dl POC Glucose (70-99) mg/dl Calcium 8.4 L (8.5-10.1) mg/dl
--- NOTE | 2021-01-22 14:10 | Cardiology Progress Note ---
Date of Service January 22, 2021 Assessment & Plan (1) Acute and chronic respiratory failure: (2) Pneumonia: (3) Chronic respiratory failure with hypoxia: (4) History of DVT (deep vein thrombosis): (5) Chronic respiratory failure with hypoxia and hypercapnia: (6) Pleural effusion: (7) Acute on chronic systolic heart failure: (8) COPD (chronic obstructive pulmonary disease): (9) History of pulmonary embolism: (10) Chronic left ventricular systolic heart failure: (11) PAD (peripheral artery disease): (12) PAF (paroxysmal atrial fibrillation): (13) HLD (hyperlipidemia): (14) History of pacemaker: (15) History of incision of pericardium: (16) Coronary artery disease: (17) Ischemic cardiomyopathy: (18) Chronic kidney disease stage 3: The patient is a very medically complex 75-year-old gentleman who presented to the emergency department with 1 day history of shortness of breath and fever. Upon arrival he was diagnosed with pneumonia and pulmonary emboli by CT of the chest. 2D echocardiogram performed showed significant RV strain and acute RV systolic heart failure leading to worsening LV systolic function as well. Given this acute RV failure and active lung processes the patient is significantly preload dependent and would hold off on diuretics at this time. Recommend continue to treat with antibiotics and anticoagulation Follow volume status clinically. Continue outpatient doses of metoprolol, rosuvastatin and warfarin with a goal INR of 2-3. We will sign off. Please call with questions or concerns. Admission and Anticipated Discharge Date Admission Date: January 18, 2021 Subjective He is currently discouraged after discussion with ID Pt seen and examined, chart reviewed. States that he continues to feel "like crap" but breathing somewhat improved from presentation. Denies cp, palpitations or lightheadedness. He is currently discouraged after discussion with ID and need for bronchoscopy. Telemetry reviewed: Normal sinus rhythm without arrhythmia. Review of Systems Review of Systems: All systems reviewed & are unremarkable except as noted in HPI & below Physical Exam Physical Exam: General: Awake, alert and oriented x 3. No acute distress. HEENT: Normocephalic, atraumatic. Pupils equal, round and reactive to light and accommodation. Extraocular muscles are intact. Anicteric sclera. Moist mucous membranes. Neck: No JVD. No bruit. Cardiovascular: irregularly irregular, unable to appreciate murmur, rub or gallop. Pulmonary: Poor air movement bilaterally with harsh breath sounds. Diffuse rhonchi, wheezing and bibasilar Rales. Abdomen: Bowel sounds x 4, soft. No rebound, guarding or tenderness. No organomegaly. Extremities: No clubbing, cyanosis. +2 bilateral lower extremity pitting edema. +2 pedal pulses bilaterally. Skin: Warm and dry. Results & Data ([facility]) Vital Signs (Past 12 Hours) Vital Signs Temp Pulse Pulse Resp BP Pulse Ox 01/22/21 12:29 36.6 C 59 L 19 115/74 92 01/22/21 09:00 62 01/22/21 08:11 36.4 C L 60 18 120/69 95 01/22/21 03:26 36.6 C 60 17 106/65 98 (1) COPD (chronic obstructive pulmonary disease) COPD type: unspecified COPD Qualified Code(s): J44.9 - Chronic obstructive pulmonary disease, unspecified
[2021-01-22] MEDS: WARFARIN SOD 4 MG TAB PO SCH (16:41)
[2021-01-22] MEDS: MONTELUKAST SODIUM 10 MG TABLET PO SCH (20:20)
[2021-01-22] MEDS: PRIMIDONE 250 MG TAB PO SCH (20:20)
[2021-01-22] MEDS: ROSUVASTATIN CALCIUM 20 MG TAB PO SCH (20:20)
[2021-01-22] MEDS: METOPROLOL SUCC 25MG EXT REL TAB PO SCH (20:20)
[2021-01-22] MEDS: ASPIRIN 325 MG ECTAB PO SCH (20:20)
[2021-01-22] MEDS: allopurinoL 300 MG TAB PO SCH (20:20)
[2021-01-22] MEDS: INSULIN GLARGINE SOLOSTAR 100 UNITS/ML 3 ML PEN SC SCH (20:22)
[2021-01-22] MEDS: POTASSIUM CHLORIDE CRTAB 20 MEQ TABCR PO SCH (20:45)
[2021-01-23] MEDS: AMPICILLIN 2,000 MG in SODIUM CHLOR 0.9% AD-VAN 100 ML IV SCH ×6 (01:07→20:50)
[2021-01-23 06:57] LABS: Hematocrit (blood only) 32.8 % (42-52); Hemoglobin 10.2 g/dL (14.0-18.0); Mean Corpuscular Hemoglobin 30.2 pg (25-34); Mean Corpuscular Hgb Conc 31.1 g/dL (32-36); Platelet Count 175 K/uL (130-400); RDW Coefficient of Variation 14.5 % (11.5-14.5); RDW Standard Deviation 51.5 fL (36.4-46.3); Red Blood Count 3.38 M/uL (4.7-6.1); White Blood Count 5.17 K/uL (4.8-10.8)
[2021-01-23 07:24] LABS: BUN Creatinine Ratio 23.8 (10-20); Calcium 8.6 mg/dl (8.5-10.1); Est GFR (African American) 81.2 ml/min; Est GFR (Non-African American) 70.1 ml/min; Magnesium 1.6 mg/dl (1.8-2.4); Phosphorus 2.3 mg/dl (2.5-4.9); Potassium 3.6 mmol/L (3.5-5.1)
[2021-01-23 07:26] LABS: INR 3.3 (0.9-1.1); Prothrombin Time 30.5 Seconds (9.0-12.0)
[2021-01-23] MEDS: INSULIN ASPART 100 UNITS/ML 3 ML PEN SC SCH ×4 (08:07→20:52)
--- NOTE | 2021-01-23 09:19 | Anesthesiology Consultation ---
Date of Service January 23, 2021 Assessment & Plan (1) Encounter for pre-operative examination: Chart Review Chart Review: mapping engineer initiated History Height/Weight Height: 6 ft 1 in Weight: 100.3 kg Allergies Allergy/AdvReac Type Severity Reaction Status Date / Time albuterol Allergy Severe CHOKING Verified 01/18/21 16:30 SENSATION ipratropium Allergy Severe CHOKING Verified 01/18/21 16:30 SENSATION onion Allergy Intermediate RASH Verified 01/18/21 16:30 levofloxacin Allergy Mild other Verified 01/18/21 16:30 spironolactone AdvReac Severe Problems Unverified 01/18/21 16:30 with breathing atorvastatin AdvReac Intermediate Muscle Pain Verified 01/18/21 16:30 metformin AdvReac Intermediate Diarrhea Verified 01/18/21 16:30 Medications Home Medications Medication Instructions Recorded Confirmed Last Taken Lantus Solostar U-100 Insulin 20 unit SUBCUT 04/11/18 01/18/21 01/17/21 allopurinol [Zyloprim] 300 mg PO 04/11/18 01/18/21 01/17/21 montelukast [Singulair] 10 mg PO 04/11/18 01/18/21 01/17/21 nitroglycerin 0.4 mg SUBLINGUAL UD PRN 04/11/18 01/18/21 01/17/21 primidone [Mysoline] 500 mg PO 04/11/18 01/18/21 01/17/21 rosuvastatin [Crestor] 40 mg PO 04/11/18 01/18/21 01/17/21 aspirin 325 mg PO 08/08/19 01/18/21 01/17/21 metoprolol succinate 25 mg PO 08/08/19 01/18/21 01/17/21 ferrous sulfate [iron] 325 mg PO Q OTHER DAY 01/09/20 01/18/21 01/17/21 warfarin [Jantoven] 4 mg PO [id number]@209903/14/20 01/18/21 01/17/21 warfarin [Jantoven] 6 mg PO SUTUTHSA@2100 03/14/20 01/18/21 01/17/21 empagliflozin [Jardiance] 0 mg PO 10/18/20 01/18/21 01/17/21 Active Medications Generic Name Dose Route Start Last Admin Trade Name Bill PRN Reason Stop Dose Admin Allopurinol 300 mg 01/18/21 22:00 01/22/21 20:20 Allopurinol 300 Mg Tab PO 02/17/21 21:59 300 mg HS ANNA Administration Aspirin 325 mg 01/18/21 22:00 01/22/21 20:20 Aspirin 325 Mg Ectab PO 02/17/21 21:59 325 mg HS ANNA Administration Ferrous Sulfate 325 mg 01/19/21 11:00 01/21/21 12:35 Ferrous Sulfate 325 Mg Tab PO 02/18/21 10:59 325 mg Q2D@1100 ANNA Administration Ampicillin Sodium 2,000 mg/ 100 mls @ 200 mls/hr 01/20/21 12:00 01/23/21 08:08 Sodium Chloride IV 02/03/21 11:59 Infused Q4H ANNA Infusion Insulin Aspart 0 units 01/18/21 22:00 01/23/21 08:07 Insulin Aspart 100 Units/Ml 3 Ml Pen SC 02/17/21 21:59 Not Given ACHS ANNA Insulin Glargine 20 units 01/21/21 21:00 01/22/21 20:22 Insulin Glargine Solostar 100 Units/Ml 3 Ml Pen SC 02/20/21 20:59 20 units HS ANNA Administration Metoprolol Succinate 25 mg 01/18/21 22:00 01/22/21 20:20 Metoprolol Succ 25mg Ext Rel Tab PO 02/17/21 21:59 25 mg HS ANNA Administration Miscellaneous 15 - 30 gm 01/18/21 21:25 01/21/21 07:45 Carbohydrates For Hypoglycemia PO 02/17/21 21:24 15 gm UD PRN Administration Hypoglycemia Protocol Montelukast Sodium 10 mg 01/18/21 22:00 01/22/21 20:20 Montelukast Sodium 10 Mg Tablet PO 02/17/21 21:59 10 mg HS ANNA Administration Potassium Chloride 20 meq 01/18/21 22:00 01/22/21 20:45 Potassium Chloride Crtab 20 Meq Tabcr PO 02/17/21 21:59 20 meq HS ANNA Administration Primidone 500 mg 01/18/21 22:00 01/22/21 20:20 Primidone 250 Mg Tab PO 02/17/21 21:59 500 mg HS ANNA Administration Rosuvastatin Calcium 40 mg 01/18/21 22:00 01/22/21 20:20 Rosuvastatin Calcium 20 Mg Tab PO 02/17/21 21:59 40 mg HS ANNA Administration Warfarin Sodium 4 mg 01/21/21 16:00 01/22/21 16:41 Warfarin Sod 4 Mg Tab PO 02/20/21 15:59 4 mg DAILY@1600 ANNA Administration Past Medical History Medical History Abnormal CT scan, chest Bronchiectasis Chronic kidney disease stage 3 Chronic left ventricular systolic heart failure Chronic respiratory failure with hypoxia and hypercapnia COPD (chronic obstructive pulmonary disease) Coronary artery disease "S/P inferior NH, severe multivessel disease not amenable to intervention" per 2012 cath Diabetes mellitus, type 2 IDDM Diabetic foot ulcer GERD (gastroesophageal reflux disease) Gout Hearing deficit BL KOO History of CVA (cerebrovascular accident) "YEARS AGO" - reports he has had a tremor ever since stroke. denies additional residual effects History of depression History of DVT (deep vein thrombosis) "YEARS AGO" ETIOLOGY UNK - ON WARFARIN History of pancreatitis History of pulmonary embolism on assisted coumadin History of tachycardia-bradycardia syndrome HLD (hyperlipidemia) Ischemic cardiomyopathy EF 45-49% MRSA infection Myocardial Infarction "YEARS AGO" Nephrolithiasis On home oxygen therapy 2 LPM DAILY PRN (secondary to chronic respiratory failure) Osteoarthritis PAD (peripheral artery disease) PAF (paroxysmal atrial fibrillation) DX "years ago" - ON COUMADIN - FOLLOWS W/ DR. CRANE Seizure QUESTIONABLE- EEG 1 WEEK AGO FOR QUESTIONABLE SEIZURE (reported convulsions, loss of consciousness 1 week ago while watching TV) - [facility] - EEG unremarkable Tremor Past Family History Family History Mother Alzheimer disease Past Surgical History Surgical History History of bronchoscopy History of cardiac cath MULTIPLE - NO STENTS [place] (could not recall dates - most recent in system is from 2011 [place]) History of cholecystectomy 2014 History of incision of pericardium pericardial window secondary to pericardial effusion History of pacemaker PLACED 10/2017 FOR [employer] - [employer] - LAST CHECKED 05/2019 History of tonsillectomy S/P cystoscopy with ureteral stent placement 07/25/2019 [facility] 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 Quit in 1971 Hx Alcohol Use: Yes Alcohol type: beer and hard liquor alcohol intake frequency: holidays/special occasions only Hx Substance Use: No substance use type: does not use Physical Exam Vital Signs Last Vital Signs Temp 97.9 F 01/23/21 07:45 Pulse 65 01/23/21 08:00 Resp 18 01/23/21 07:45 BP 127/71 01/23/21 07:45 Pulse Ox 92 01/23/21 07:45 Testing Laboratory Results 01/23/21 06:13 01/23/21 06:13 PT 30.5 Seconds (9.0-12.0) H 01/23/21 06:13 INR 3.3 (0.9-1.1) H 01/23/21 06:13 APTT 36.3 Seconds (21.0-31.0) H 01/22/21 05:40 Urine Color Yellow 01/18/21 17:24 Urine Appearance Clear (Clear) 01/18/21 17:24 Urine pH 6.0 (4.5-7.5) 01/18/21 17:24 Ur Specific [place] 1.020 (1.000-1.030) 01/18/21 17:24 Urine Protein 1+ (Negative) H 01/18/21 17:24 Urine Glucose (UA) 3+ (Negative) H 01/18/21 17:24 Urine Ketones Negative (Negative) 01/18/21 17:24 Urine Nitrite Negative (Negative) 01/18/21 17:24 Ur Leukocyte Esterase Negative (Negative) 01/18/21 17:24 Urine WBC (Auto) 5-10 /hpf (0-5) H 01/18/21 17:24 Urine RBC (Auto) 0-4 /hpf (0-4) 01/18/21 17:24 U Hyaline Cast (Auto) 1-5 /lpf (0-5) 01/18/21 17:24 U Epithel Cells (Auto) 5-10 /lpf (0-5) H 01/18/21 17:24 Urine Bacteria (Auto) Negative (Negative) 01/18/21 17:24 01/19/21 23:30 Urine Culture - Final Urine,Clean Catch More than three types of organisms present, all low counts mixed probable skin antelmo. No further identifications or sensitivities to follow. 01/19/21 22:34 Aerobic Blood Culture - Preliminary Blood No growth in Aerobic bottle after 48 hours. Anaerobic Blood Culture - Preliminary No growth in Anaerobic bottle after 48 hours. 01/19/21 22:29 Aerobic Blood Culture - Preliminary Blood No growth in Aerobic bottle after 48 hours. Anaerobic Blood Culture - Preliminary No growth in Anaerobic bottle after 48 hours. 01/18/21 16:43 Aerobic Blood Culture - Final Blood Enterococcus faecalis Anaerobic Blood Culture - Final Enterococcus faecalis 01/18/21 15:20 Aerobic Blood Culture - Final Blood Enterococcus faecalis Anaerobic Blood Culture - Final Enterococcus faecalis 01/23/21 07:39 POC Glucose 74 Laboratory Tests 01/18/21 15:20 SARS-CoV-2 (PCR) NEGATIVE Electrocardiogram Date: 01/18/21 Normal sinus rhythm, rate [address] abnormality Abnormal ECG When compared with ECG of 02-APR-2020 10:37, Sinus rhythm has replaced Electronic atrial pacemaker QRS duration has increased QT has lengthened Confirmed by Serjio Huitron ([id number]) on 01/20/2021 5:39:36 AM Chest X-Ray Date: 01/18/21 IMPRESSION: 1. Cardiomegaly with slight progression of the mild interstitial pulmonary edema. 2. Small bilateral pleural effusions and bibasilar densities persist. Echocardiogram Date: 01/19/21 Normal LV chamber size with mild concentric LVH Moderately reduced LV systolic function, EF 35 to 40% Abnormal septal wall motion consistent with RV pressure/volume overload, moderate hypokinesis of the inferior and inferior lateral castillo, otherwise normal wall motion Grade 2 diastolic dysfunction Dilated RV chamber size with reduced systolic function by TAPSE Aortic valve sclerosis moderate without significant aortic valvular stenosis Moderate MR Mild TR Moderate left atrial enlargement Significant pulmonary hypertension is present with a PA systolic pressure of 62 mmHg assuming a right atrial pressure of 3 mmHg
--- NOTE | 2021-01-23 11:15 | Hospitalist Progress Note ---
Date of Service January 23, 2021 Assessment & Plan (1) Acute and chronic respiratory failure: Hx of chronic respiratory failure secondary to COPD/bronchiectasis on home O2 History noncompliance per outpatient pulmonology notes Patient apparently has stopped oxygen on his own prior to admission per his report as well as pulm outpatient note Possible sepsis Bronchopneumonia Gram positive bacteremia CT angio does show left greater than right basilar bronchiectasis with bronchial wall thickening and mucous plugging as well as patchy bibasilar consolidative and groundglass opacities suggestive of atelectasis versus pneumonitis Blood culture growing Enterococcus. Currently on ampicillin ID Repeat blood cultures negative so far TTE noted. Does not report any vegetation ID recommendations noted on epic. ID recommends getting a LONDON prior to making final recommendations. Discussed with solution consultant. Will get LONDON on Monday Patient hypoxia is likely multifactorial in view of -Bronchopneumonia (as detailed above) -PE as seen on CTA and -Acute on chronic systolic heart failure -Acute right ventricular failure Patient is on Coumadin at home. INR is supratherapeutic today at 3.3. Hold dose today and resume tomorrow at 3 mg daily Review of outpatient cardiology note from 11/03/2020. Patient Lasix was stopped due to volume depletion. CT angio does report cardiomegaly, pulmonary edema with trace left and small right pleural effusion. Echo showed acute right ventricular failure with dilation, RV pressure/volume overload as well as increased PASP from prior. Patient EF also reduced from prior echo now down to 35 to 40%. Cardiology evaluation and recommendation noted. 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 Coumadin PT/OT evaluation noted. Plan to discharge home once medically stable Full code Admission and Anticipated Discharge Date Admission Date: January 18, 2021 Subjective 75-year-old man with history of COPD on home oxygen at 2 L, bronchiectasis, pulmonary nodules, past tobacco use, chronic systolic heart failure secondary to ischemic cardiomyopathy with EF of 45 to 50%, CAD, CVA, PVD per records, sick sinus syndrome status post pacemaker, PE on Coumadin, hypertension, DM type II on insulin, MGUS, CKD 3 who presented to the ER for fever and cough. Patient seen and examined. Patient reports only chronic cough unchanged. Has chronic leg swelling Has no other complaints today Review of Systems Review of Systems: All systems reviewed & are unremarkable except as noted in Subjective Physical Exam Constitutional: + well hydrated; no acute distress Eyes: PERRL, conjunctivae normal, anicteric sclerae ENMT: external ear and nose normal, oropharynx normal Respiratory: normal respiratory effort; no respiratory distress Some scattered crackles, on 2 L/min nasal oxygen Cardiovascular: Rate/Rhythm: regular rate and regular rhythm Gastrointestinal (Abdomen): normal bowel sounds, soft, nontender, no hepatosplenomegaly Musculoskeletal: no cyanosis or clubbing, extremities motor strength 5/5 2+ bilateral pitting pedal edema Neurologic: PERRL, EOMI, accommodation nl, no face palsy, no dysarthria Psychiatric: A+Ox3, euthymic affect Genitourinary: no CVA tenderness Results & Data Results & Data ([facility]) Vital Signs (Past 12 Hours) Vital Signs Temp Pulse Pulse Resp BP Pulse Ox 01/23/21 08:00 65 01/23/21 07:45 36.6 C 60 18 127/71 92 01/23/21 03:14 37.0 C 70 18 138/76 89 L 01/22/21 23:24 36.5 C 60 18 129/64 94 Laboratory Results Abnormal lab results 01/22/21 01/22/21 01/23/21 Range/Units 16:30 20:14 06:13 RBC (4.7-6.1) M/uL Hgb (14.0-18.0) g/dL Hct (42-52) % MCHC (32-36) g/dL RDW Std Deviation (36.4-46.3) fL PT 30.5 H (9.0-12.0) Seconds INR 3.3 H (0.9-1.1) Chloride (98-107) mmol/L BUN (7-18) mg/dl BUN/Creatinine Ratio (10-20) POC Glucose 136 H 173 H (70-99) mg/dl Phosphorus (2.5-4.9) mg/dl Magnesium (1.8-2.4) mg/dl 01/23/21 01/23/21 Range/Units 06:13 06:13 RBC 3.38 L (4.7-6.1) M/uL Hgb 10.2 L (14.0-18.0) g/dL Hct 32.8 L (42-52) % MCHC 31.1 L (32-36) g/dL RDW Std Deviation 51.5 H (36.4-46.3) fL PT (9.0-12.0) Seconds INR (0.9-1.1) Chloride 108 H (98-107) mmol/L BUN 25 H (7-18) mg/dl BUN/Creatinine Ratio 23.8 H (10-20) POC Glucose (70-99) mg/dl Phosphorus 2.3 L (2.5-4.9) mg/dl Magnesium 1.6 L (1.8-2.4) mg/dl
[2021-01-23] MEDS: FERROUS SULFATE 325 MG TAB PO SCH (11:43)
[2021-01-23] MEDS: POT PHOSPHATE MONOBASIC W/ SOD TAB PO SCH ×3 (12:21→20:51)
[2021-01-23] MEDS: MAGNESIUM SULFATE / D5W 1 GM/100 ML BAG IV SCH ×2 (12:21→14:45)
[2021-01-23] MEDS: ROSUVASTATIN CALCIUM 20 MG TAB PO SCH (20:51)
[2021-01-23] MEDS: POTASSIUM CHLORIDE CRTAB 20 MEQ TABCR PO SCH (20:51)
[2021-01-23] MEDS: PRIMIDONE 250 MG TAB PO SCH (20:52)
[2021-01-23] MEDS: METOPROLOL SUCC 25MG EXT REL TAB PO SCH (20:52)
[2021-01-23] MEDS: allopurinoL 300 MG TAB PO SCH (20:52)
[2021-01-23] MEDS: MONTELUKAST SODIUM 10 MG TABLET PO SCH (20:52)
[2021-01-23] MEDS: ASPIRIN 325 MG ECTAB PO SCH (20:52)
[2021-01-23] MEDS: INSULIN GLARGINE SOLOSTAR 100 UNITS/ML 3 ML PEN SC SCH (20:53)
[2021-01-24] MEDS: AMPICILLIN 2,000 MG in SODIUM CHLOR 0.9% AD-VAN 100 ML IV SCH ×6 (00:30→20:52)
[2021-01-24] MEDS: INSULIN ASPART 100 UNITS/ML 3 ML PEN SC SCH ×4 (07:32→20:37)
[2021-01-24 08:21] LABS: INR 3.3 (0.9-1.1); Prothrombin Time 30.1 Seconds (9.0-12.0)
[2021-01-24 08:44] LABS: BUN Creatinine Ratio 22.7 (10-20); Calcium 8.3 mg/dl (8.5-10.1); Creatinine Clr Calc Pharmacy 87.2 ml/min; Est GFR (African American) 92.9 ml/min; Est GFR (Non-African American) 80.1 ml/min; Magnesium 1.9 mg/dl (1.8-2.4); Potassium 3.5 mmol/L (3.5-5.1)
[2021-01-24 08:46] LABS: Phosphorus 3.1 mg/dl (2.5-4.9)
[2021-01-24 09:00] LABS: Hematocrit (blood only) 33.9 % (42-52); Hemoglobin 10.7 g/dL (14.0-18.0); Mean Corpuscular Hemoglobin 30.2 pg (25-34); Mean Corpuscular Hgb Conc 31.6 g/dL (32-36); Mean Corpuscular Volume 95.8 fL (80-100); Mean Platelet Volume 10.4 fL (7.4-10.4); Platelet Count 173 K/uL (130-400); RDW Coefficient of Variation 14.6 % (11.5-14.5); RDW Standard Deviation 51.6 fL (36.4-46.3); Red Blood Count 3.54 M/uL (4.7-6.1); White Blood Count 5.27 K/uL (4.8-10.8)
[2021-01-24] MEDS: POT PHOSPHATE MONOBASIC W/ SOD TAB PO SCH ×4 (09:00→20:35)
--- NOTE | 2021-01-24 12:12 | Hospitalist Progress Note ---
Date of Service January 24, 2021 Assessment & Plan (1) Acute and chronic respiratory failure: Hx of chronic respiratory failure secondary to COPD/bronchiectasis on home O2 History noncompliance per outpatient pulmonology notes Patient apparently has stopped oxygen on his own prior to admission per his report as well as pulm outpatient note Possible sepsis Bronchopneumonia Enterococcus faecalis bacteremia CT angio does show left greater than right basilar bronchiectasis with bronchial wall thickening and mucous plugging as well as patchy bibasilar consolidative and groundglass opacities suggestive of atelectasis versus pneumonitis Blood culture growing Enterococcus. Currently on ampicillin per ID Repeat blood cultures negative so far TTE noted. Does not report any vegetation ID recommendations noted on epic. ID recommends getting a LONDON prior to making final recommendations. Discussed with coupon clerk. Plan for LONDON tomorrow. N.p.o. past midnight Follow up LONDON and then ID to determine final antibiotic recommendations Patient hypoxia is likely multifactorial in view of -Bronchopneumonia (as detailed above) -PE as seen on CTA and -Acute on chronic systolic heart failure -Acute right ventricular failure Patient is on Coumadin at home. INR is still supratherapeutic today at 3.3. Warfarin was held yesterday. Will hold dose again today and plan to resume tomorrow at lower dose 3 mg daily after getting INR in AM Review of outpatient cardiology note from 11/03/2020. Patient Lasix was stopped due to volume depletion. CT angio does report cardiomegaly, pulmonary edema with trace left and small right pleural effusion. Echo showed acute right ventricular failure with dilation, RV pressure/volume overload as well as increased PASP from prior. Patient EF also reduced from prior echo now down to 35 to 40%. Cardiology evaluation and recommendation noted. Hold off diuretics as patient is volume dependent due to acute right ventricular failure and PE Encourage leg elevation. 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 Coumadin PT/OT evaluation noted. Plan to discharge home once medically stable Full code Admission and Anticipated Discharge Date Admission Date: January 18, 2021 Subjective 75-year-old man with history of COPD on home oxygen at 2 L, bronchiectasis, pulmonary nodules, past tobacco use, chronic systolic heart failure secondary to ischemic cardiomyopathy with EF of 45 to 50%, CAD, CVA, PVD per records, sick sinus syndrome status post pacemaker, PE on Coumadin, hypertension, DM type II on insulin, MGUS, CKD 3 who presented to the ER for fever and cough. Being managed for acute hypoxic respiratory failure, bronchopneumonia, PE, acute right ventricular failure, acute on chronic systolic heart failure and Enterococcus bacteremia Patient seen and examined. Patient reports occasional chronic cough unchanged. Has chronic leg swelling Has no other complaints today Review of Systems Review of Systems: All systems reviewed & are unremarkable except as noted in Subjective Physical Exam Constitutional: + well hydrated; no acute distress Eyes: PERRL, conjunctivae normal, anicteric sclerae ENMT: external ear and nose normal, oropharynx normal Respiratory: normal respiratory effort; no respiratory distress Basilar crackles. No wheezing Cardiovascular: Rate/Rhythm: regular rate and regular rhythm S1-S2 Gastrointestinal (Abdomen): normal bowel sounds, soft, nontender, no hepatosplenomegaly Musculoskeletal: no cyanosis or clubbing, extremities motor strength 5/5 Pitting bilateral pedal edema Neurologic: PERRL, EOMI, accommodation nl, no face palsy, no dysarthria Psychiatric: A+Ox3, euthymic affect Genitourinary: no CVA tenderness Results & Data Results & Data ([facility]) Vital Signs (Past 12 Hours) Vital Signs Temp Pulse Pulse Resp BP Pulse Ox 01/24/21 08:13 37.0 C 61 20 109/67 01/24/21 07:15 61 01/24/21 04:44 60 20 109/67 96 Laboratory Results Abnormal lab results 01/23/21 01/24/21 01/24/21 Range/Units 16:39 07:33 07:37 RBC 3.54 L (4.7-6.1) M/uL Hgb 10.7 L (14.0-18.0) g/dL Hct 33.9 L (42-52) % MCHC 31.6 L (32-36) g/dL RDW Std Deviation 51.6 H (36.4-46.3) fL RDW Coeff of Lizet 14.6 H (11.5-14.5) % PT 30.1 H (9.0-12.0) Seconds INR 3.3 H (0.9-1.1) Chloride (98-107) mmol/L BUN (7-18) mg/dl BUN/Creatinine Ratio (10-20) Glucose (70-99) mg/dl POC Glucose 101 H (70-99) mg/dl Calcium (8.5-10.1) mg/dl 01/24/21 01/24/21 Range/Units 07:37 11:23 RBC (4.7-6.1) M/uL Hgb (14.0-18.0) g/dL Hct (42-52) % MCHC (32-36) g/dL RDW Std Deviation (36.4-46.3) fL RDW Coeff of Lizet (11.5-14.5) % PT (9.0-12.0) Seconds INR (0.9-1.1) Chloride 108 H (98-107) mmol/L BUN 21 H (7-18) mg/dl BUN/Creatinine Ratio 22.7 H (10-20) Glucose 65 L (70-99) mg/dl POC Glucose 120 H (70-99) mg/dl Calcium 8.3 L (8.5-10.1) mg/dl
--- NOTE | 2021-01-24 12:49 | Cardiology Progress Note ---
Date of Service January 24, 2021 Assessment & Plan (1) Acute and chronic respiratory failure: (2) Pneumonia: (3) Chronic respiratory failure with hypoxia: (4) History of DVT (deep vein thrombosis): (5) Chronic respiratory failure with hypoxia and hypercapnia: (6) Pleural effusion: (7) Acute on chronic systolic heart failure: (8) COPD (chronic obstructive pulmonary disease): (9) History of pulmonary embolism: (10) Chronic left ventricular systolic heart failure: (11) PAD (peripheral artery disease): (12) PAF (paroxysmal atrial fibrillation): (13) HLD (hyperlipidemia): (14) History of pacemaker: (15) History of incision of pericardium: (16) Coronary artery disease: (17) Ischemic cardiomyopathy: (18) Chronic kidney disease stage 3: As discussed with the medicine service, ID is recommending we proceed with a transesophageal echocardiogram due to the patient's blood culture results. I discussed and explained the LONDON to the patient. I explained the risk, benefit and intent of the procedure and he is willing to proceed. The patient will be made n.p.o. after midnight. His warfarin has been on hold for the past 2 days due to an elevated INR however, I believe by tomorrow his INR should be at an appropriate level to proceed with the LONDON. He still has significant wheezing. He has not received a diuretic in several days and I gave him Lasix 40 mg IV along with potassium supplements today. Admission and Anticipated Discharge Date Admission Date: January 18, 2021 Subjective Patient has no new cardiac symptoms today. Review of Systems Review of Systems: All systems reviewed & are unremarkable except as noted in Subjective Physical Exam Physical Exam: General: no acute distress and stated age Head: normocephalic, no masses, lesions, tenderness or abnormalities Eyes: conjunctiva are pink and non-injected, sclera clear Neck: supple, no adenopathy, no bruits, normal jugular venous pulse, no hepatojugular reflux Chest: normal shape and normal respiratory effort Lungs: Wheezing and rhonchi. Cardiac Exam: - regular rate & rhythm, no murmurs gallops or rubs - normal S1, normal S2 Pulses: 2(+) throughout Abdomen: abdomen soft, non-tender, no abnormal masses and no hepatosplenomegaly Musculoskeletal: no gait disturbance, no joint inflammation, no deforming arthritis Extremities: no edema and no cyanosis Neuro: grossly normal exam Results & Data ([facility]) Vital Signs (Past 12 Hours) Vital Signs Temp Pulse Pulse Resp BP Pulse Ox 01/24/21 12:29 36.8 C 89 18 150/78 H 99 01/24/21 08:13 37.0 C 61 20 109/67 01/24/21 07:15 61 01/24/21 04:44 60 20 109/67 96 Laboratory Results Laboratory Results - last 24 hr 01/23/21 01/23/21 01/24/21 16:39 20:32 07:28 WBC RBC Hgb Hct MCV MCH MCHC RDW Std Deviation RDW Coeff of Lizet Plt Count MPV PT INR Sodium Potassium Chloride Carbon Dioxide Anion Gap BUN Creatinine Est Cr Clr Drug Dosing Est GFR ( Amer) Est GFR (Non-Af Amer) BUN/Creatinine Ratio Glucose POC Glucose 101 H 91 87 Calcium Phosphorus Magnesium 01/24/21 01/24/21 01/24/21 07:33 07:37 07:37 WBC 5.27 RBC 3.54 L Hgb 10.7 L Hct 33.9 L MCV 95.8 MCH 30.2 MCHC 31.6 L RDW Std Deviation 51.6 H RDW Coeff of Lizet 14.6 H Plt Count 173 MPV 10.4 PT 30.1 H INR 3.3 H Sodium 143 Potassium 3.5 Chloride 108 H Carbon Dioxide 30 Anion Gap 4.0 BUN 21 H Creatinine 0.94 Est Cr Clr Drug Dosing 87.2 Est GFR ( Amer) 92.9 Est GFR (Non-Af Amer) 80.1 BUN/Creatinine Ratio 22.7 H Glucose 65 L POC Glucose Calcium 8.3 L Phosphorus 3.1 Magnesium 1.9 01/24/21 11:23 WBC RBC Hgb Hct MCV MCH MCHC RDW Std Deviation RDW Coeff of Lizet Plt Count MPV PT INR Sodium Potassium Chloride Carbon Dioxide Anion Gap BUN Creatinine Est Cr Clr Drug Dosing Est GFR ( Amer) Est GFR (Non-Af Amer) BUN/Creatinine Ratio Glucose POC Glucose 120 H Calcium Phosphorus Magnesium Medications Administered Current Inpatient Medications Acetaminophen (Acetaminophen 325 Mg Tab) 650 mg PO Q4H PRN PRN Reason: Pain or Fever Stop: 02/17/21 21:24 Allopurinol (Allopurinol 300 Mg Tab) 300 mg PO HS [facility] Stop: 02/17/21 21:59 Last Admin: 01/23/21 20:52 Dose: 300 mg Documented by: Aspirin (Aspirin 325 Mg Ectab) 325 mg PO HS [facility] Stop: 02/17/21 21:59 Last Admin: 01/23/21 20:52 Dose: 325 mg Documented by: Dextrose (Dextrose 50% 50 Ml Syringe) 25 - 50 ml IV UD PRN; Protocol PRN Reason: Hypoglycemia Protocol Stop: 02/17/21 21:24 Ferrous Sulfate (Ferrous Sulfate 325 Mg Tab) 325 mg PO Q2D@1100 [facility] Stop: 02/18/21 10:59 Last Admin: 01/23/21 11:43 Dose: 325 mg Documented by: Glucagon (Glucagon For Inj 1 Mg Vial) 1 mg SQ UD PRN; Protocol PRN Reason: Hypoglycemia Protocol Stop: 02/17/21 21:24 Glucose (Glucose 10 Tabs/Tube) 4 - 8 tabs PO UD PRN; Protocol PRN Reason: Hypoglycemia Protocol Stop: 02/17/21 21:24 Glucose (Glucose 40% Gel 15 Gm Tube) 15 - 30 gm PO UD PRN; Protocol PRN Reason: Hypoglycemia Protocol Stop: 02/17/21 21:24 Promethazine HCl 12.5 mg/ (Sodium Chloride) 50.5 mls @ 202 mls/hr IV Q6H PRN PRN Reason: Nausea And Vomiting Stop: 02/17/21 21:24 Ampicillin Sodium 2,000 mg/ (Sodium Chloride) 100 mls @ 200 mls/hr IV Q4H [facility] Stop: 02/03/21 11:59 Last Admin: 01/24/21 12:11 Dose: 200 mls/hr Documented by: Insulin Aspart (Insulin Aspart 100 Units/Ml 3 Ml Pen) 0 units SC [facility] Stop: 02/17/21 21:59 Last Admin: 01/24/21 11:29 Dose: Not Given Documented by: Insulin Glargine (Insulin Glargine Solostar 100 Units/Ml 3 Ml Pen) 20 units SC [facility] Stop: 02/20/21 20:59 Last Admin: 01/23/21 20:53 Dose: 20 units Documented by: Metoprolol Succinate (Metoprolol Succ 25mg Ext Rel Tab) 25 mg PO [facility] Stop: 02/17/21 21:59 Last Admin: 01/23/21 20:52 Dose: 25 mg Documented by: Miscellaneous (Carbohydrates For Hypoglycemia ) 15 - 30 gm PO UD PRN PRN Reason: Hypoglycemia Protocol Stop: 02/17/21 21:24 Last Admin: 01/21/21 07:45 Dose: 15 gm Documented by: Montelukast Sodium (Montelukast Sodium 10 Mg Tablet) 10 mg PO HS [facility] Stop: 02/17/21 21:59 Last Admin: 01/23/21 20:52 Dose: 10 mg Documented by: Ondansetron HCl (Ondansetron Inj 2 Mg/Ml 2 Ml Vial) 4 mg IV Q6H PRN PRN Reason: Nausea And Vomiting Stop: 02/18/21 08:39 Potassium Chloride (Potassium Chloride Crtab 20 Meq Tabcr) 20 meq PO [facility] Stop: 02/17/21 21:59 Last Admin: 01/23/21 20:51 Dose: 20 meq Documented by: Potassium Phosphate (Pot Phosphate Monobasic W/ Sod Tab) 1 tab PO QID [facility] Stop: 02/22/21 12:59 Last Admin: 01/24/21 12:11 Dose: 1 tab Documented by: Primidone (Primidone 250 Mg Tab) 500 mg PO [facility] Stop: 02/17/21 21:59 Last Admin: 01/23/21 20:52 Dose: 500 mg Documented by: Rosuvastatin Calcium (Rosuvastatin Calcium 20 Mg Tab) 40 mg PO [facility] Stop: 02/17/21 21:59 Last Admin: 01/23/21 20:51 Dose: 40 mg Documented by: Tramadol HCl (Tramadol Hcl 50 Mg Tablet) 25 - 50 mg PO Q4H PRN PRN Reason: Pain Stop: 02/17/21 21:24 Warfarin Sodium (Warfarin Sod 3 Mg Tab) 3 mg PO DAILY@1600 [facility] Stop: 02/24/21 15:59 (1) COPD (chronic obstructive pulmonary disease) COPD type: unspecified COPD Qualified Code(s): J44.9 - Chronic obstructive pulmonary disease, unspecified
[2021-01-24] MEDS ORDERED: POTASSIUM CHLORIDE CRTAB 20 MEQ TABCR PO STA (12:52)
[2021-01-24] MEDS ORDERED: FUROSEMIDE 40 MG in SYRINGE 0 ML IV ONE (13:30)
[2021-01-24] MEDS ORDERED: WARFARIN SOD 3 MG TAB PO SCH (16:00)
[2021-01-24] MEDS: POTASSIUM CHLORIDE CRTAB 20 MEQ TABCR PO SCH (20:36)
[2021-01-24] MEDS: ASPIRIN 325 MG ECTAB PO SCH (20:36)
[2021-01-24] MEDS: MONTELUKAST SODIUM 10 MG TABLET PO SCH (20:36)
[2021-01-24] MEDS: ROSUVASTATIN CALCIUM 20 MG TAB PO SCH (20:36)
[2021-01-24] MEDS: METOPROLOL SUCC 25MG EXT REL TAB PO SCH (20:36)
[2021-01-24] MEDS: allopurinoL 300 MG TAB PO SCH (20:37)
[2021-01-24] MEDS: PRIMIDONE 250 MG TAB PO SCH (20:37)
[2021-01-24] MEDS: INSULIN GLARGINE SOLOSTAR 100 UNITS/ML 3 ML PEN SC SCH (21:14)
[2021-01-25] MEDS: AMPICILLIN 2,000 MG in SODIUM CHLOR 0.9% AD-VAN 100 ML IV SCH ×6 (00:39→20:06)
[2021-01-25 06:43] LABS: Hematocrit (blood only) 36.2 % (42-52); Hemoglobin 11.3 g/dL (14.0-18.0); Mean Corpuscular Hemoglobin 30.4 pg (25-34); Mean Corpuscular Hgb Conc 31.2 g/dL (32-36); Mean Corpuscular Volume 97.3 fL (80-100); Platelet Count 197 K/uL (130-400); RDW Coefficient of Variation 14.7 % (11.5-14.5); RDW Standard Deviation 52.3 fL (36.4-46.3); Red Blood Count 3.72 M/uL (4.7-6.1)
[2021-01-25 06:56] LABS: INR 2.6 (0.9-1.1); Prothrombin Time 24.8 Seconds (9.0-12.0)
[2021-01-25 07:15] LABS: BUN Creatinine Ratio 20.7 (10-20); Calcium 8.6 mg/dl (8.5-10.1); Est GFR (African American) 89.4 ml/min; Est GFR (Non-African American) 77.1 ml/min; Potassium 3.5 mmol/L (3.5-5.1)
[2021-01-25] MEDS: INSULIN ASPART 100 UNITS/ML 3 ML PEN SC SCH ×4 (08:11→20:20)
[2021-01-25] MEDS: POT PHOSPHATE MONOBASIC W/ SOD TAB PO SCH ×2 (09:14→11:00)
[2021-01-25] MEDS ORDERED: PROPOFOL IV EMULSION 10 MG/ML 20 ML VIAL IV ONE ×2 (09:27→09:28)
--- NOTE | 2021-01-25 09:47 | History & Physical Bridge Note ---
Date of Service January 25, 2021 History & Physical Bridge Note I have examined the patient, reviewed the History & Physical and in the interval since the performance of the History & Physical I have noted the following changes of clinical significance: no changes noted. Respiratory status and edema, appear to be at recent baseline. Will proceed with LONDON for evaluation of bacteremia , r/out vetigation.
--- NOTE | 2021-01-25 10:36 | Post Operative Brief Note ---
Cardiology Brief Post Op Date of Surgery January 25, 2021 Pre & Post Diagnosis Preprocedure diagnosis: Bacteremia, evaluate for endocarditis Post procedure diagnosis: No evidence of vegetation Operation Date: 01/25/21 09:45 Procedure Transesophageal echocardiogram: After informed consent was obtained and a timeout was performed the patient was sedated with the assistance of Dr. Mcnair of the anesthesia service receiving a total of 150 mg of IV propofol, and 40 mg of IV lidocaine. Transesophageal echocardiogram was performed, without evidence of valvular vegetation. The right atrial and right ventricular pacemaker wires are relatively well visualized with no evidence of definite vegetation. Recommendations: Continue antibiotics, a negative transesophageal echocardiogram does not exclude the presence of endocarditis. No indication at present for removal of permanent pacemaker. Continue to monitor results of repeat cultures to exclude persistent bacteremia. Gas Welding Equipment Mechanic Zaid Stevenson DO Truss Puller Helper Bridgett Samuels, CLAUDIA Estimated Blood Loss 0 Findings Consistent with Post-Op Diagnosis
--- NOTE | 2021-01-25 10:46 | Cardiology Progress Note ---
Date of Service January 25, 2021 Assessment & Plan (1) Acute on chronic systolic heart failure: Plan status stable at present. Hold further diuretics today as he has been n.p.o. for LONDON. (2) Bacteremia due to Enterococcus: Patient with sensitive enterococcal faecalis bacteremia on 2 blood cultures obtained 01/18/2021, repeat cultures obtained 01/19/2021 - thus far. Patient has history of dual-chamber permanent pacemaker placed in 2015. The images of the transthoracic echocardiogram performed earlier this hospital stay were reviewed, with no evidence of vegetation within the scope of that imaging modality. Transesophageal echocardiogram therefore performed today. Mild to moderate sclerosis of the aortic valve was noted without valvular vegetation. The valves were well visualized. The right atrial and right ventricular pacemaker leads r elatively well visualized with no evidence of valvular vegetation. This of course does not exclude the presence of endocarditis, but it is reassuring. No indication for removal of his pacer system at present. Continue current antibiotic regimen. Recommend repeat cultures to confirm lack of persistent bacteremia. If patient has repeat cultures, or signs and symptoms suggestive of ongoing infectious process, may need serial transesophageal echocardiogram and consideration of removal of pacer system at that time. (3) Pulmonary emboli: CT of the chest performed this admission suggested subsegmental recurrent pulmonary emboli, in the setting of subtherapeutic INR, INR 2.6 today. Continue cautious anticoagulation given concerns of pulmonary emboli with knowledge that anticoagulation in the setting of concerns with regards to endocarditis places patient at risk for hemorrhagic conversion of mycotic emboli if they were to occur. Would have low threshold to perform neuroimaging if pt has any change in mental status. Admission and Anticipated Discharge Date Admission Date: January 18, 2021 Subjective Chief complaint: Initially presented with subjective fevers Subjective: Patient seen in cardiology follow-up initially on the floor, PCU room 231-1, then prior to, during, and post transesophageal echocardiogram. Patient without recurrent fevers or chills overnight last night. No fever noted. Telemetry reveals sinus rhythm with atrial pacing in the 60s. Review of Systems Review of Systems: All systems reviewed & are unremarkable except as noted in HPI & below Physical Exam Physical Exam: Temp Pulse Resp BP Pulse Ox 36.4 C L 70 18 128/61 90 01/25/21 09:31 01/25/21 10:25 01/25/21 10:25 01/25/21 10:25 01/25/21 10:25 Constitutional: WD/WN, vitals as above Respiratory: Course mid field and apical wheezing Cardiovascular: Rate/Rhythm: regular rhythm Heart Sounds: no murmur Chest (Breasts): Additional Comments: Left infraclavicular pacemaker pocket site clean dry and intact, no erythema, no fluid collection, no tenderness to palpation Gastrointestinal (Abdomen): normal bowel sounds, soft, nontender, no hepatosplenomegaly Musculoskeletal: no cyanosis or clubbing, extremities motor strength 5/5 Neurologic: PERRL, EOMI, accommodation nl, no face palsy, no dysarthria Results & Data ([facility]) Vital Signs (Past 12 Hours) Vital Signs Temp Pulse Resp BP BP Pulse Ox 01/25/21 10:25 70 18 128/61 90 01/25/21 09:31 36.4 C L 60 18 155/84 H 96 01/25/21 07:49 36.4 C L 60 17 138/67 96 01/25/21 03:55 36.3 C L 60 18 126/64 98 01/25/21 00:03 36.4 C L 60 18 126/71 94
[2021-01-25] MEDS: FERROUS SULFATE 325 MG TAB PO SCH (11:38)
--- NOTE | 2021-01-25 11:47 | Cardiology Progress Note ---
Date of Service January 25, 2021 Assessment & Plan (1) Acute and chronic respiratory failure: (2) Pneumonia: (3) Chronic respiratory failure with hypoxia: (4) History of DVT (deep vein thrombosis): (5) Chronic respiratory failure with hypoxia and hypercapnia: (6) Pleural effusion: (7) Acute on chronic systolic heart failure: (8) COPD (chronic obstructive pulmonary disease): (9) History of pulmonary embolism: (10) Chronic left ventricular systolic heart failure: (11) PAD (peripheral artery disease): (12) PAF (paroxysmal atrial fibrillation): (13) HLD (hyperlipidemia): (14) History of pacemaker: (15) History of incision of pericardium: (16) Coronary artery disease: (17) Ischemic cardiomyopathy: (18) Chronic kidney disease stage 3: The LONDON completed this morning showed no evidence of endocarditis. Although this is a negative study it does not completely exclude endocarditis but it is certainly good news. The patient must have chronic lower extremity edema. He still has quite a bit of edema bilaterally. He is evasive when I discussed whether he wears support stockings but he does inform me that when he gets up in the morning his his edema is markedly improved but worsens through the day. I suspect this is chronic venous insufficiency. He is not on an VIOLETTA/A RB today I started him on losartan. Subjective The patient had a LONDON this morning which was negative. I explained the results to him. Review of Systems Review of Systems: All systems reviewed & are unremarkable except as noted in Subjective Physical Exam Physical Exam: General: no acute distress and stated age Head: normocephalic, no masses, lesions, tenderness or abnormalities Eyes: conjunctiva are pink and non-injected, sclera clear Neck: supple, no adenopathy, no bruits, normal jugular venous pulse, no hepatojugular reflux Chest: normal shape and normal respiratory effort Lungs: clear to auscultation and percussion Cardiac Exam: - regular rate & rhythm, no murmurs gallops or rubs - normal S1, normal S2 Pulses: 2(+) throughout Abdomen: abdomen soft, non-tender, no abnormal masses and no hepatosplenomegaly Musculoskeletal: no gait disturbance, no joint inflammation, no deforming arthritis Extremities: Edema bilateral lower extremities. Neuro: grossly normal exam Results & Data ([facility]) Vital Signs (Past 12 Hours) Vital Signs Temp Pulse Pulse Resp BP BP Pulse Ox 07/12/21 10:40 70 18 135/67 90 01/25/21 10:25 70 18 128/61 90 01/25/21 09:31 36.4 C L 60 18 155/84 H 96 01/25/21 08:00 64 01/25/21 07:49 36.4 C L 60 17 138/67 96 01/25/21 03:55 36.3 C L 60 18 126/64 98 01/25/21 00:03 36.4 C L 60 18 126/71 94 Laboratory Results Laboratory Results - last 24 hr 01/24/21 01/24/21 01/25/21 16:25 20:24 06:03 WBC RBC Hgb Hct MCV MCH MCHC RDW Std Deviation RDW Coeff of Lizet Plt Count MPV PT 24.8 H INR 2.6 H Sodium Potassium Chloride Carbon Dioxide Anion Gap BUN Creatinine Est Cr Clr Drug Dosing Est GFR ( Amer) Est GFR (Non-Af Amer) BUN/Creatinine Ratio Glucose POC Glucose 108 H 113 H Calcium 01/25/21 01/25/21 01/25/21 06:03 06:03 07:14 WBC 5.90 RBC 3.72 L Hgb 11.3 L Hct 36.2 L MCV 97.3 MCH 30.4 MCHC 31.2 L RDW Std Deviation 52.3 H RDW Coeff of Lizet 14.7 H Plt Count 197 MPV 10.0 PT INR Sodium 140 Potassium 3.5 Chloride 105 Carbon Dioxide 31 Anion Gap 4.0 BUN 20 H Creatinine 0.97 Est Cr Clr Drug Dosing 84.0 Est GFR ( Amer) 89.4 Est GFR (Non-Af Amer) 77.1 BUN/Creatinine Ratio 20.7 H Glucose 78 POC Glucose 96 Calcium 8.6 01/25/21 11:16 WBC RBC Hgb Hct MCV MCH MCHC RDW Std Deviation RDW Coeff of Lizet Plt Count MPV PT INR Sodium Potassium Chloride Carbon Dioxide Anion Gap BUN Creatinine Est Cr Clr Drug Dosing Est GFR ( Amer) Est GFR (Non-Af Amer) BUN/Creatinine Ratio Glucose POC Glucose 84 Calcium Medications Administered Current Inpatient Medications Acetaminophen (Acetaminophen 325 Mg Tab) 650 mg PO Q4H PRN PRN Reason: Pain or Fever Stop: 02/17/21 21:24 Allopurinol (Allopurinol 300 Mg Tab) 300 mg PO HS [facility] Stop: 02/17/21 21:59 Last Admin: 01/24/21 20:37 Dose: 300 mg Documented by: Aspirin (Aspirin 325 Mg Ectab) 325 mg PO [facility] Stop: 02/17/21 21:59 Last Admin: 01/24/21 20:36 Dose: 325 mg Documented by: Dextrose (Dextrose 50% 50 Ml Syringe) 25 - 50 ml IV UD PRN; Protocol PRN Reason: Hypoglycemia Protocol Stop: 02/17/21 21:24 Ferrous Sulfate (Ferrous Sulfate 325 Mg Tab) 325 mg PO Q2D@1100 [facility] Stop: 02/18/21 10:59 Last Admin: 01/23/21 11:43 Dose: 325 mg Documented by: Glucagon (Glucagon For Inj 1 Mg Vial) 1 mg SQ UD PRN; Protocol PRN Reason: Hypoglycemia Protocol Stop: 02/17/21 21:24 Glucose (Glucose 10 Tabs/Tube) 4 - 8 tabs PO UD PRN; Protocol PRN Reason: Hypoglycemia Protocol Stop: 02/17/21 21:24 Glucose (Glucose 40% Gel 15 Gm Tube) 15 - 30 gm PO UD PRN; Protocol PRN Reason: Hypoglycemia Protocol Stop: 02/17/21 21:24 Promethazine HCl 12.5 mg/ (Sodium Chloride) 50.5 mls @ 202 mls/hr IV Q6H PRN PRN Reason: Nausea And Vomiting Stop: 02/17/21 21:24 Ampicillin Sodium 2,000 mg/ (Sodium Chloride) 100 mls @ 200 mls/hr IV Q4H [facility] Stop: 02/03/21 11:59 Last Infusion: 01/25/21 10:02 Dose: Infused Documented by: Insulin Aspart (Insulin Aspart 100 Units/Ml 3 Ml Pen) 0 units SC [facility] Stop: 02/17/21 21:59 Last Admin: 01/25/21 08:11 Dose: Not Given Documented by: Insulin Glargine (Insulin Glargine Solostar 100 Units/Ml 3 Ml Pen) 20 units SC [facility] Stop: 02/20/21 20:59 Last Admin: 01/24/21 21:14 Dose: 20 units Documented by: Losartan Potassium (Losartan Potassium 25 Mg Tab) 25 mg PO QAM [facility] Stop: 02/24/21 11:44 Metoprolol Succinate (Metoprolol Succ 25mg Ext Rel Tab) 25 mg PO [facility] Stop: 02/17/21 21:59 Last Admin: 01/24/21 20:36 Dose: 25 mg Documented by: Miscellaneous (Carbohydrates For Hypoglycemia ) 15 - 30 gm PO UD PRN PRN Reason: Hypoglycemia Protocol Stop: 02/17/21 21:24 Last Admin: 01/21/21 07:45 Dose: 15 gm Documented by: Montelukast Sodium (Montelukast Sodium 10 Mg Tablet) 10 mg PO [facility] Stop: 02/17/21 21:59 Last Admin: 01/24/21 20:36 Dose: 10 mg Documented by: Ondansetron HCl (Ondansetron Inj 2 Mg/Ml 2 Ml Vial) 4 mg IV Q6H PRN PRN Reason: Nausea And Vomiting Stop: 02/18/21 08:39 Potassium Chloride (Potassium Chloride Crtab 20 Meq Tabcr) 20 meq PO [facility] Stop: 02/17/21 21:59 Last Admin: 01/24/21 20:36 Dose: 20 meq Documented by: Primidone (Primidone 250 Mg Tab) 500 mg PO [facility] Stop: 02/17/21 21:59 Last Admin: 01/24/21 20:37 Dose: 500 mg Documented by: Rosuvastatin Calcium (Rosuvastatin Calcium 20 Mg Tab) 40 mg PO [facility] Stop: 02/17/21 21:59 Last Admin: 01/24/21 20:36 Dose: 40 mg Documented by: Tramadol HCl (Tramadol Hcl 50 Mg Tablet) 25 - 50 mg PO Q4H PRN PRN Reason: Pain Stop: 02/17/21 21:24 Warfarin Sodium (Warfarin Sod 3 Mg Tab) 3 mg PO DAILY@1600 [facility] Stop: 02/24/21 15:59 (1) COPD (chronic obstructive pulmonary disease) COPD type: unspecified COPD Qualified Code(s): J44.9 - Chronic obstructive pulmonary disease, unspecified
--- NOTE | 2021-01-25 11:47 | Anesthesiology Progress Note ---
Date of Service January 25, 2021 Anesthesia Post Procedure Vital Signs Vital Signs: Temp Pulse Pulse Resp BP BP Pulse Ox 01/25/21 11:00 36.6 C 70 18 137/73 92 01/25/21 10:40 70 18 135/67 90 01/25/21 10:25 70 18 128/61 90 01/25/21 09:31 36.4 C L 60 18 155/84 H 96 01/25/21 08:00 64 01/25/21 07:49 36.4 C L 60 17 138/67 96 01/25/21 03:55 36.3 C L 60 18 126/64 98 01/25/21 00:03 36.4 C L 60 18 126/71 94 01/24/21 20:05 36.8 C 67 20 159/81 H 90 01/24/21 15:42 36.8 C 76 18 151/85 H 95 01/24/21 14:56 62 01/24/21 12:29 36.8 C 89 18 150/78 H 99 Transfer of Care Handoff Completed per policy Notes Mental Status: alert / awake / arousable and participated in evaluation Patient Amnestic to Procedure: Yes Nausea / Vomiting: adequately controlled Pain: adequately controlled Airway Patency, RR, SpO2: stable & adequate BP & HR: stable & adequate Hydration State: stable & adequate Anesthetic Complications: no major complications apparent
--- NOTE | 2021-01-25 12:15 | CT Scan Report ---
CT head/brain wo con CLINICAL HISTORY: bacteremia, exclude cerebral emboli ALTERED MENTAL STATUS COMPARISON STUDY: 10/14/2018 TECHNIQUE: Axial CT of the brain is performed from the vertex to the skull base. IV contrast was not administered for this examination. A dose lowering technique was utilized adhering to the principles of ALARA. CT DOSE: 844.62 mGy.cm FINDINGS: No intra or extra-axial mass lesions are visualized. There is no CT evidence of acute cortical infarc tion. There is no evidence of midline shift. There is no acute hemorrhage. No calvarial fractures ar e visualized. There are patchy white matter hypodensities likely on a small vessel basis. There is no evidence of pathologic ventricular dilatation. There are bilateral maxillary sinus air-fluid levels. There is sphenoid sinus mucosal thickening. IMPRESSION: 1. Inflammatory changes within the sphenoid and maxillary sinuses 2. Otherwise no acute intracranial findings ACT 112: Negative or not required by law. Electronically signed by: Dillon Gaspar M.D. 01/25/2021 12:13 PM
[2021-01-25] MEDS: LOSARTAN POTASSIUM 25 MG TAB PO SCH ×2 (12:51→12:56)
--- NOTE | 2021-01-25 15:07 | Hospitalist Progress Note ---
Date of Service January 25, 2021 Assessment & Plan (1) Acute and chronic respiratory failure: Hx of chronic respiratory failure secondary to COPD/bronchiectasis on home O2 and is complicated by acute on chronic systolic heart failure History noncompliance per outpatient pulmonology notes Patient apparently has stopped oxygen on his own prior to admission per his report as well as pulm outpatient note Possible sepsis Bronchopneumonia Enterococcus faecalis bacteremia Has been on intravenous ampicillin as per ID recommendation Remains stable clinically and underwent [place] which came out to be negative for endocarditis Discussed with the ID and he will need to have IV ampicillin for a total of 2 weeks following negative blood culture 1 01/19/2021 and repeat blood culture 5 to 7 days following completion of antibiotic Other alternatives of intravenous daptomycin or oral Zyvox are second line of therapy and is not recommended PE as seen on CTA Has been on Coumadin INR therapeutic at 2.6 today 01/26/2020 Acute on chronic systolic heart failure Acute right ventricular failure Echo showed acute right ventricular failure with dilation, RV pressure/volume overload as well as increased PASP from prior. Patient EF also reduced from prior echo now down to 35 to 40%. Cardiology evaluation and recommendation noted. Hold off diuretics as patient is volume dependent due to acute right ventricular failure and PE Encourage leg elevation. Can to TEDs Review of outpatient cardiology note from 11/03/2020. Patient Lasix was stopped due to volume depletion. CT angio does report cardiomegaly, pulmonary edema with trace left and small right pleural effusion. A small dose of VIOLETTA inhibitor has been started Lasix has been on hold Severe bilateral leg edema-advised to elevate legs when possible especially while sleeping and use MANDY stockings Pulmonary nodules Present on outpatient CT chest October 2020), [place] [facility] [place] Will continue to have outpatient pulmonary follow-up History of CAD/CVA/PVD as per records SSS sp PPM, patient NSR, INR subtherapeutic Appreciate cardiology input and recommendation Hypertension BP normal Monitor Cardiology on board MARY on CKD 3 Likely secondary to illness MARY resolved Monitor renal function and urine output Creatinine is 0.94 today DM2 Well-controlled as of recent hemoglobin A1c of September 2020 Insulin per protocol while inpatient Chronic anemia Baseline hemoglobin of 11 DVT prophylaxis. Coumadin PT/OT evaluation noted. Plan to discharge home once medically stable Full code Admission and Anticipated Discharge Date Admission Date: January 18, 2021 Subjective 01/25/2021 The patient was seen and examined in telemetry unit He complains to have generalized weakness and tiredness His swelling of the legs remain as it is Requiring oxygen at times Review of Systems Review of Systems: All systems reviewed and are unremarkable except as noted below Respiratory: + cough and + dyspnea on exertion Cardiovascular: + edema (Has significant edema bilaterally); no chest pain and no palpitations Physical Exam Physical Exam: Lying in bed with minimal discomfort Constitutional: well developed, well nourished, + ill appearing and + obese Eyes: PERRL, conjunctivae normal, anicteric sclerae ENMT: external ear and nose normal, oropharynx normal Neck: trachea midline, no thyromegaly Respiratory: no respiratory distress Auscultation: + diminished lung sounds, + crackles (Occasional crackles at the bases) and + wheezes (Occasional wheezing) Cardiovascular: Rate/Rhythm: regular rate and regular rhythm Heart Sounds: no murmur Extremities: + edema (2+ edema bilaterally) Gastrointestinal (Abdomen): Inspection/Auscultation: + abdomen distended and normal bowel sounds Percussion/Palpation: abdomen soft; abdomen nontender Musculoskeletal: No acute arthritis in any joint Neurologic: Alert, awake and oriented x3. Generally very weak and lethargic Lymphatic: no cervical or axillary lymphadenopathy Results & Data Results & Data ([facility]) Vital Signs (Past 12 Hours) Vital Signs Temp Pulse Pulse Resp BP BP Pulse Ox 01/25/21 14:00 66 137/73 01/25/21 13:00 65 131/74 01/25/21 12:00 135/69 01/25/21 11:30 137/80 01/25/21 11:00 36.6 C 70 18 137/73 92 01/25/21 10:40 70 18 135/67 90 01/25/21 10:25 70 18 128/61 90 01/25/21 09:31 36.4 C L 60 18 155/84 H 96 01/25/21 08:00 64 01/25/21 07:49 36.4 C L 60 17 138/67 96 01/25/21 03:55 36.3 C L 60 18 126/64 98 Laboratory Results Short CBC 01/25/21 Range/Units 06:03 WBC 5.90 (4.8-10.8) K/uL Hgb 11.3 L (14.0-18.0) g/dL Hct 36.2 L (42-52) % Plt Count 197 (130-400) K/uL BMP 01/25/21 06:03 Sodium 140 Potassium 3.5 Chloride 105 Carbon Dioxide 31 BUN 20 H Creatinine 0.97 Glucose 78 Calcium 8.6 Medications Administered Current Inpatient Medications Acetaminophen (Acetaminophen 325 Mg Tab) 650 mg PO Q4H PRN PRN Reason: Pain or Fever Stop: 02/17/21 21:24 Allopurinol (Allopurinol 300 Mg Tab) 300 mg PO [facility] Stop: 02/17/21 21:59 Last Admin: 01/24/21 20:37 Dose: 300 mg Documented by: Aspirin (Aspirin 325 Mg Ectab) 325 mg PO [facility] Stop: 02/17/21 21:59 Last Admin: 01/24/21 20:36 Dose: 325 mg Documented by: Dextrose (Dextrose 50% 50 Ml Syringe) 25 - 50 ml IV UD PRN; Protocol PRN Reason: Hypoglycemia Protocol Stop: 02/17/21 21:24 Ferrous Sulfate (Ferrous Sulfate 325 Mg Tab) 325 mg PO Q2D@1100 [facility] Stop: 02/18/21 10:59 Last Admin: 01/25/21 11:38 Dose: 325 mg Documented by: Glucagon (Glucagon For Inj 1 Mg Vial) 1 mg SQ UD PRN; Protocol PRN Reason: Hypoglycemia Protocol Stop: 02/17/21 21:24 Glucose (Glucose 10 Tabs/Tube) 4 - 8 tabs PO UD PRN; Protocol PRN Reason: Hypoglycemia Protocol Stop: 02/17/21 21:24 Glucose (Glucose 40% Gel 15 Gm Tube) 15 - 30 gm PO UD PRN; Protocol PRN Reason: Hypoglycemia Protocol Stop: 02/17/21 21:24 Promethazine HCl 12.5 mg/ (Sodium Chloride) 50.5 mls @ 202 mls/hr IV Q6H PRN PRN Reason: Nausea And Vomiting Stop: 02/17/21 21:24 Ampicillin Sodium 2,000 mg/ (Sodium Chloride) 100 mls @ 200 mls/hr IV Q4H [facility] Stop: 02/03/21 11:59 Last Infusion: 01/25/21 13:50 Dose: Infused Documented by: Insulin Aspart (Insulin Aspart 100 Units/Ml 3 Ml Pen) 0 units SC ACHS [facility] Stop: 02/17/21 21:59 Last Admin: 01/25/21 12:32 Dose: Not Given Documented by: Insulin Glargine (Insulin Glargine Solostar 100 Units/Ml 3 Ml Pen) 20 units SC [facility] Stop: 02/20/21 20:59 Last Admin: 01/24/21 21:14 Dose: 20 units Documented by: Losartan Potassium (Losartan Potassium 25 Mg Tab) [facility] [place] [facility] [place] Stop: 02/24/21 11:44 Last Admin: 01/25/21 12:56 Dose: Not Given Documented by: Metoprolol Succinate (Metoprolol Succ 25mg Ext Rel Tab) 25 mg PO [facility] Stop: 02/17/21 21:59 Last Admin: 01/24/21 20:36 Dose: 25 mg Documented by: Miscellaneous (Carbohydrates For Hypoglycemia ) 15 - 30 gm PO UD PRN PRN Reason: Hypoglycemia Protocol Stop: 02/17/21 21:24 Last Admin: 01/21/21 07:45 Dose: 15 gm Documented by: Montelukast Sodium (Montelukast Sodium 10 Mg Tablet) 10 mg PO [facility] Stop: 02/17/21 21:59 Last Admin: 01/24/21 20:36 Dose: 10 mg Documented by: Ondansetron HCl (Ondansetron Inj 2 Mg/Ml 2 Ml Vial) 4 mg IV Q6H PRN PRN Reason: Nausea And Vomiting Stop: 02/18/21 08:39 Potassium Chloride (Potassium Chloride Crtab 20 Meq Tabcr) 20 meq PO [facility] Stop: 02/17/21 21:59 Last Admin: 01/24/21 20:36 Dose: 20 meq Documented by: Primidone (Primidone 250 Mg Tab) 500 mg PO [facility] Stop: 02/17/21 21:59 Last Admin: 01/24/21 20:37 Dose: 500 mg Documented by: Rosuvastatin Calcium (Rosuvastatin Calcium 20 Mg Tab) 40 mg PO [facility] Stop: 02/17/21 21:59 Last Admin: 01/24/21 20:36 Dose: 40 mg Documented by: Tramadol HCl (Tramadol Hcl 50 Mg Tablet) 25 - 50 mg PO Q4H PRN PRN Reason: Pain Stop: 02/17/21 21:24 Warfarin Sodium (Warfarin Sod 3 Mg Tab) 3 mg PO DAILY@1600 [facility] Stop: 02/24/21 15:59
[2021-01-25] MEDS: WARFARIN SOD 3 MG TAB PO SCH (16:41)
[2021-01-25] MEDS: PRIMIDONE 250 MG TAB PO SCH (20:09)
[2021-01-25] MEDS: ROSUVASTATIN CALCIUM 20 MG TAB PO SCH (20:09)
[2021-01-25] MEDS: MONTELUKAST SODIUM 10 MG TABLET PO SCH (20:09)
[2021-01-25] MEDS: ASPIRIN 325 MG ECTAB PO SCH (20:10)
[2021-01-25] MEDS: METOPROLOL SUCC 25MG EXT REL TAB PO SCH (20:10)
[2021-01-25] MEDS: allopurinoL 300 MG TAB PO SCH (20:11)
[2021-01-25] MEDS: POTASSIUM CHLORIDE CRTAB 20 MEQ TABCR PO SCH (20:11)
[2021-01-25] MEDS: INSULIN GLARGINE SOLOSTAR 100 UNITS/ML 3 ML PEN SC SCH (20:21)
[2021-01-26] MEDS: AMPICILLIN 2,000 MG in SODIUM CHLOR 0.9% AD-VAN 100 ML IV SCH ×7 (00:50→23:49)
[2021-01-26 06:28] LABS: Basophils # (auto) 0.02 K/uL (0-0.2); Basophils % (auto) 0.3 %; Eosinophils # (auto) 0.29 K/uL (0-0.5); Hematocrit (blood only) 32.6 % (42-52); Hemoglobin 10.2 g/dL (14.0-18.0); Immature Granulocytes # (auto) 0.01 K/uL (0.00-0.02); Immature Granulocytes % (auto) 0.2 %; Lymphocytes # (auto) 0.97 K/uL (1.2-3.4); Lymphocytes % (auto) 16.7 %; Mean Corpuscular Hemoglobin 29.9 pg (25-34); Mean Corpuscular Hgb Conc 31.3 g/dL (32-36); Mean Corpuscular Volume 95.6 fL (80-100); Monocytes # (auto) 0.62 K/uL (0.11-0.59); Monocytes % (auto) 10.7 %; Neutrophils # (auto) 3.91 K/uL (1.4-6.5); Neutrophils % (auto) 67.1 %; Platelet Count 177 K/uL (130-400); RDW Coefficient of Variation 14.8 % (11.5-14.5); Red Blood Count 3.41 M/uL (4.7-6.1); White Blood Count 5.82 K/uL (4.8-10.8)
[2021-01-26 07:15] LABS: Calcium 8.5 mg/dl (8.5-10.1); Creatinine Clr Calc Pharmacy 77.3 ml/min; Est GFR (African American) 80.3 ml/min; Est GFR (Non-African American) 69.3 ml/min; Magnesium 1.7 mg/dl (1.8-2.4); Phosphorus 2.8 mg/dl (2.5-4.9); Potassium 3.4 mmol/L (3.5-5.1)
[2021-01-26] MEDS: INSULIN ASPART 100 UNITS/ML 3 ML PEN SC SCH ×4 (07:32→20:06)
[2021-01-26] MEDS: LOSARTAN POTASSIUM 25 MG TAB PO SCH (07:54)
[2021-01-26] MEDS ORDERED: POTASSIUM CHLORIDE CRTAB 20 MEQ TABCR PO STA (09:03)
--- NOTE | 2021-01-26 12:51 | Cardiology Progress Note ---
Date of Service January 26, 2021 Assessment & Plan (1) Acute and chronic respiratory failure: (2) Pneumonia: (3) Chronic respiratory failure with hypoxia: (4) History of DVT (deep vein thrombosis): (5) Chronic respiratory failure with hypoxia and hypercapnia: (6) Pleural effusion: (7) Acute on chronic systolic heart failure: (8) COPD (chronic obstructive pulmonary disease): (9) History of pulmonary embolism: (10) Chronic left ventricular systolic heart failure: (11) PAD (peripheral artery disease): (12) PAF (paroxysmal atrial fibrillation): (13) HLD (hyperlipidemia): (14) History of pacemaker: (15) History of incision of pericardium: (16) Coronary artery disease: (17) Ischemic cardiomyopathy: (18) Chronic kidney disease stage 3: (19) Pulmonary emboli: This patient was on Jardiance as an outpatient. He states that he had good diuresis with this medication and his Lasix was either reduced or stopped. He is currently not on any diuretics here in the hospital. He has wheezing throughout his lung lewis and although he has chronic lower extremity edema I believe it is worse. He needs to be restarted on his Jardiance and possibly consider giving him a dose of Lasix today. He will be resistant to the diuretic because he gets dizzy at home if he is over diuresed, but I think he is gaining too much volume. Admission and Anticipated Discharge Date Admission Date: January 18, 2021 Subjective The patient is anxious to go home. No new cardiac complaints. Review of Systems Review of Systems: All systems reviewed & are unremarkable except as noted in Subjective Physical Exam Physical Exam: General: no acute distress and stated age Head: normocephalic, no masses, lesions, tenderness or abnormalities Eyes: conjunctiva are pink and non-injected, sclera clear Neck: supple, no adenopathy, no bruits, normal jugular venous pulse, no hepatojugular reflux Chest: normal shape and normal respiratory effort Lungs: Wheezing throughout the lung lewis Cardiac Exam: - regular rate & rhythm, no murmurs gallops or rubs - normal S1, normal S2 Pulses: 2(+) throughout Abdomen: abdomen soft, non-tender, no abnormal masses and no hepatosplenomegaly Musculoskeletal: no gait disturbance, no joint inflammation, no deforming arthritis Extremities: no edema and no cyanosis Neuro: grossly normal exam Results & Data ([facility]) Vital Signs (Past 12 Hours) Vital Signs Temp Pulse Pulse Resp BP BP Pulse Ox 01/26/21 11:29 36.6 C 64 16 135/62 100 01/26/21 08:12 36.8 C 60 15 127/64 98 01/26/21 08:00 60 01/26/21 03:38 36.8 C 60 18 103/57 L 91 Laboratory Results Laboratory Results - last 24 hr 01/25/21 01/25/21 01/26/21 16:04 20:18 06:01 WBC 5.82 RBC 3.41 L Hgb 10.2 L Hct 32.6 L MCV 95.6 MCH 29.9 MCHC 31.3 L RDW Std Deviation 52.0 H RDW Coeff of Lizet 14.8 H Plt Count 177 MPV 10.0 Immature Gran % (Auto) 0.2 Neut % (Auto) 67.1 Lymph % (Auto) 16.7 [place] % (Auto) 10.7 Eos % (Auto) 5.0 Baso % (Auto) 0.3 Neut # (Auto) 3.91 Lymph # (Auto) 0.97 L [place] # (Auto) 0.62 H Eos # (Auto) 0.29 Baso # (Auto) 0.02 Immature Gran # (Auto) 0.01 Sodium Potassium Chloride Carbon Dioxide Anion Gap BUN Creatinine Est Cr Clr Drug Dosing Est GFR ( Amer) Est GFR (Non-Af Amer) BUN/Creatinine Ratio Glucose POC Glucose 85 108 H Calcium Phosphorus Magnesium 01/26/21 01/26/21 01/26/21 06:01 07:12 10:52 WBC RBC Hgb Hct MCV MCH MCHC RDW Std Deviation RDW Coeff of Lizet Plt Count MPV Immature Gran % (Auto) Neut % (Auto) Lymph % (Auto) [place] % (Auto) Eos % (Auto) Baso % (Auto) Neut # (Auto) Lymph # (Auto) [place] # (Auto) Eos # (Auto) Baso # (Auto) Immature Gran # (Auto) Sodium 142 Potassium 3.4 L Chloride 107 Carbon Dioxide 32 Anion Gap 3.0 BUN 21 H Creatinine 1.06 Est Cr Clr Drug Dosing 77.3 Est GFR ( Amer) 80.3 Est GFR (Non-Af Amer) 69.3 BUN/Creatinine Ratio 20.0 Glucose 77 POC Glucose 78 142 H Calcium 8.5 Phosphorus 2.8 Magnesium 1.7 L Medications Administered Current Inpatient Medications Acetaminophen (Acetaminophen 325 Mg Tab) 650 mg PO Q4H PRN PRN Reason: Pain or Fever Stop: 02/17/21 21:24 Allopurinol (Allopurinol 300 Mg Tab) 300 mg PO [facility] Stop: 02/17/21 21:59 Last Admin: 01/25/21 20:11 Dose: 300 mg Documented by: Aspirin (Aspirin 325 Mg Ectab) 325 mg PO [facility] Stop: 02/17/21 21:59 Last Admin: 01/25/21 20:10 Dose: 325 mg Documented by: Dextrose (Dextrose 50% 50 Ml Syringe) 25 - 50 ml IV UD PRN; Protocol PRN Reason: Hypoglycemia Protocol Stop: 02/17/21 21:24 Ferrous Sulfate (Ferrous Sulfate 325 Mg Tab) 325 mg PO Q2D@1100 [facility] Stop: 02/18/21 10:59 Last Admin: 01/25/21 11:38 Dose: 325 mg Documented by: Glucagon (Glucagon For Inj 1 Mg Vial) 1 mg SQ UD PRN; Protocol PRN Reason: Hypoglycemia Protocol Stop: 02/17/21 21:24 Glucose (Glucose 10 Tabs/Tube) 4 - 8 tabs PO UD PRN; Protocol PRN Reason: Hypoglycemia Protocol Stop: 02/17/21 21:24 Glucose (Glucose 40% Gel 15 Gm Tube) 15 - 30 gm PO UD PRN; Protocol PRN Reason: Hypoglycemia Protocol Stop: 02/17/21 21:24 Promethazine HCl 12.5 mg/ (Sodium Chloride) 50.5 mls @ 202 mls/hr IV Q6H PRN PRN Reason: Nausea And Vomiting Stop: 02/17/21 21:24 Ampicillin Sodium 2,000 mg/ (Sodium Chloride) 100 mls @ 200 mls/hr IV Q4H [facility] Stop: 02/03/21 11:59 Last Infusion: 01/26/21 12:56 Dose: Infused Documented by: Insulin Aspart (Insulin Aspart 100 Units/Ml 3 Ml Pen) 0 units SC [facility] Stop: 02/17/21 21:59 Last Admin: 01/26/21 12:01 Dose: 1 units Documented by: Insulin Glargine (Insulin Glargine Solostar 100 Units/Ml 3 Ml Pen) 20 units SC [facility] Stop: 02/20/21 20:59 Last Admin: 01/25/21 20:21 Dose: 20 units Documented by: Losartan Potassium (Losartan Potassium 25 Mg Tab) [facility] [place] [facility]: 02/24/21 11:44 Last Admin: 01/26/21 07:54 Dose: Not Given Documented by: Metoprolol Succinate (Metoprolol Succ 25mg Ext Rel Tab) 25 mg PO [facility] Stop: 02/17/21 21:59 Last Admin: 01/25/21 20:10 Dose: 25 mg Documented by: Miscellaneous (Carbohydrates For Hypoglycemia ) 15 - 30 gm PO UD PRN PRN Reason: Hypoglycemia Protocol Stop: 02/17/21 21:24 Last Admin: 01/21/21 07:45 Dose: 15 gm Documented by: Montelukast Sodium (Montelukast Sodium 10 Mg Tablet) 10 mg PO [facility] Stop: 02/17/21 21:59 Last Admin: 01/25/21 20:09 Dose: 10 mg Documented by: Ondansetron HCl (Ondansetron Inj 2 Mg/Ml 2 Ml Vial) 4 mg IV Q6H PRN PRN Reason: Nausea And Vomiting Stop: 02/18/21 08:39 Potassium Chloride (Potassium Chloride Crtab 20 Meq Tabcr) 20 meq PO [facility] Stop: 02/17/21 21:59 Last Admin: 01/25/21 20:11 Dose: 20 meq Documented by: Primidone (Primidone 250 Mg Tab) 500 mg PO [facility] Stop: 02/17/21 21:59 Last Admin: 01/25/21 20:09 Dose: 500 mg Documented by: Rosuvastatin Calcium (Rosuvastatin Calcium 20 Mg Tab) 40 mg PO [facility] Stop: 02/17/21 21:59 Last Admin: 01/25/21 20:09 Dose: 40 mg Documented by: Tramadol HCl (Tramadol Hcl 50 Mg Tablet) 25 - 50 mg PO Q4H PRN PRN Reason: Pain Stop: 02/17/21 21:24 Warfarin Sodium (Warfarin Sod 3 Mg Tab) 3 mg PO DAILY@1600 [facility] Stop: 02/24/21 15:59 Last Admin: 01/25/21 16:41 Dose: 3 mg Documented by: (1) COPD (chronic obstructive pulmonary disease) COPD type: unspecified COPD Qualified Code(s): J44.9 - Chronic obstructive pulmonary disease, unspecified
[2021-01-26] MEDS ORDERED: FUROSEMIDE 40 MG in SYRINGE 0 ML IV ONE (13:16)
[2021-01-26] MEDS ORDERED: FUROSEMIDE 40 MG/4 ML VIAL IV ONE (13:30)
--- NOTE | 2021-01-26 13:36 | Hospitalist Progress Note ---
Date of Service January 26, 2021 Assessment & Plan (1) Acute and chronic respiratory failure: Hx of chronic respiratory failure secondary to COPD/bronchiectasis on home O2 and is complicated by acute on chronic systolic heart failure History noncompliance per outpatient pulmonology notes Patient apparently has stopped oxygen on his own prior to admission per his report as well as pulm outpatient note Possible sepsis Bronchopneumonia Enterococcus faecalis bacteremia Has been on intravenous ampicillin as per ID recommendation Remains stable clinically and underwent [place] which came out to be negative for endocarditis Discussed with the ID and he will need to have IV ampicillin for a total of 2 weeks following negative blood culture 1 01/19/2021 and repeat blood culture 5 to 7 days following completion of antibiotic Other alternatives of intravenous daptomycin or oral Zyvox are second line of therapy and is not recommended We will continue with intravenous amoxicillin for 7 more days PE as seen on CTA Has been on Coumadin INR therapeutic at 2.6 today 01/26/2020 Will have follow-up with coagulation clinic as an outpatient Acute on chronic systolic heart failure Acute right ventricular failure Echo showed acute right ventricular failure with dilation, RV pressure/volume overload as well as increased PASP from prior. Patient EF also reduced from prior echo now down to 35 to 40%. Cardiology evaluation and recommendation noted. Hold off diuretics as patient is volume dependent due to acute right ventricular failure and PE Encourage leg elevation. Can to Nick Review of outpatient cardiology note from 11/03/2020. Patient Lasix was stopped due to volume depletion. CT angio does report cardiomegaly, pulmonary edema with trace left and small right pleural effusion. 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 Coumadin PT/OT evaluation noted. Plan to discharge home once medically stable Full code Advised to keep his stay for another night to make sure the wheezing and shortness of breath gets better but he is adamant that he will be going home today He was advised to take his usual doses of Lasix and also start Jardiance which will diurese him as well Admission and Anticipated Discharge Date Admission Date: January 18, 2021 Subjective 01/25/2021 The patient was seen and examined in telemetry unit He complains to have generalized weakness and tiredness His swelling of the legs remain as it is Requiring oxygen at times 01/26/2021 The patient was seen and examined in telemetry unit He has been sitting at the edge of the bed and wants to go home today He feels that he is back to his baseline regarding his symptoms and he does not want to stay in the hospital any longer He was noted to have minimal wheezing on examination and denies any cardiac symptoms Review of Systems Review of Systems: All systems reviewed and are unremarkable except as noted below Respiratory: + cough and + dyspnea on exertion Cardiovascular: + edema (Has significant edema bilaterally); no chest pain and no palpitations Physical Exam Physical Exam: Sitting at the edge of the bed without any acute distress Constitutional: well developed, well nourished, + ill appearing and + obese Eyes: PERRL, conjunctivae normal, anicteric sclerae ENMT: external ear and nose normal, oropharynx normal Neck: trachea midline, no thyromegaly Respiratory: no respiratory distress Auscultation: + diminished lung sounds, + crackles (Occasional crackles at the bases) and + wheezes (Occasional wheezing) Cardiovascular: Rate/Rhythm: regular rate and regular rhythm Heart Sounds: no murmur Extremities: + edema (2+ edema bilaterally) Gastrointestinal (Abdomen): Inspection/Auscultation: + abdomen distended and normal bowel sounds Percussion/Palpation: abdomen soft; abdomen nontender Musculoskeletal: No acute arthritis in any joint Neurologic: Alert, awake and oriented x3. Generally weak but no focal sensory and motor deficit appreciated Lymphatic: no cervical or axillary lymphadenopathy Results & Data Results & Data ([facility]) Vital Signs (Past 12 Hours) Vital Signs Temp Pulse Pulse Resp BP BP Pulse Ox 01/26/21 11:29 36.6 C 64 16 135/62 100 01/26/21 08:12 36.8 C 60 15 127/64 98 01/26/21 08:00 60 01/26/21 03:38 36.8 C 60 18 103/57 L 91 Laboratory Results Short CBC 01/26/21 Range/Units 06:01 WBC 5.82 (4.8-10.8) K/uL Hgb 10.2 L (14.0-18.0) g/dL Hct 32.6 L (42-52) % Plt Count 177 (130-400) K/uL BMP 01/26/21 06:01 Sodium 142 Potassium 3.4 L Chloride 107 Carbon Dioxide 32 BUN 21 H Creatinine 1.06 Glucose 77 Calcium 8.5 Medications Administered Current Inpatient Medications Acetaminophen (Acetaminophen 325 Mg Tab) 650 mg PO Q4H PRN PRN Reason: Pain or Fever Stop: 02/17/21 21:24 Allopurinol (Allopurinol 300 Mg Tab) 300 mg PO [facility] Stop: 02/17/21 21:59 Last Admin: 01/25/21 20:11 Dose: 300 mg Documented by: Aspirin (Aspirin 325 Mg Ectab) 325 mg PO HS [facility] Stop: 02/17/21 21:59 Last Admin: 01/25/21 20:10 Dose: 325 mg Documented by: Dextrose (Dextrose 50% 50 Ml Syringe) 25 - 50 ml IV UD PRN; Protocol PRN Reason: Hypoglycemia Protocol Stop: 02/17/21 21:24 Ferrous Sulfate (Ferrous Sulfate 325 Mg Tab) 325 mg PO Q2D@1100 [facility] Stop: 02/18/21 10:59 Last Admin: 01/25/21 11:38 Dose: 325 mg Documented by: Glucagon (Glucagon For Inj 1 Mg Vial) 1 mg SQ UD PRN; Protocol PRN Reason: Hypoglycemia Protocol Stop: 02/17/21 21:24 Glucose (Glucose 10 Tabs/Tube) 4 - 8 tabs PO UD PRN; Protocol PRN Reason: Hypoglycemia Protocol Stop: 02/17/21 21:24 Glucose (Glucose 40% Gel 15 Gm Tube) 15 - 30 gm PO UD PRN; Protocol PRN Reason: Hypoglycemia Protocol Stop: 02/17/21 21:24 Promethazine HCl 12.5 mg/ (Sodium Chloride) 50.5 mls @ 202 mls/hr IV Q6H PRN PRN Reason: Nausea And Vomiting Stop: 02/17/21 21:24 Ampicillin Sodium 2,000 mg/ (Sodium Chloride) 100 mls @ 200 mls/hr IV Q4H [facility] Stop: 02/03/21 11:59 Last Infusion: 01/26/21 12:56 Dose: Infused Documented by: Insulin Aspart (Insulin Aspart 100 Units/Ml 3 Ml Pen) 0 units SC [facility] Stop: 02/17/21 21:59 Last Admin: 01/26/21 12:01 Dose: 1 units Documented by: Insulin Glargine (Insulin Glargine Solostar 100 Units/Ml 3 Ml Pen) 20 units SC [facility] Stop: 02/20/21 20:59 Last Admin: 01/25/21 20:21 Dose: 20 units Documented by: Losartan Potassium (Losartan Potassium 25 Mg Tab) [facility] Stop: 02/24/21 11:44 Last Admin: 01/26/21 07:54 Dose: Not Given Documented by: Metoprolol Succinate (Metoprolol Succ 25mg Ext Rel Tab) 25 mg PO [facility] Stop: 02/17/21 21:59 Last Admin: 01/25/21 20:10 Dose: 25 mg Documented by: Miscellaneous (Carbohydrates For Hypoglycemia ) 15 - 30 gm PO UD PRN PRN Reason: Hypoglycemia Protocol Stop: 02/17/21 21:24 Last Admin: 01/21/21 07:45 Dose: 15 gm Documented by: Montelukast Sodium (Montelukast Sodium 10 Mg Tablet) 10 mg PO [facility] Stop: 02/17/21 21:59 Last Admin: 01/25/21 20:09 Dose: 10 mg Documented by: Ondansetron HCl (Ondansetron Inj 2 Mg/Ml 2 Ml Vial) 4 mg IV Q6H PRN PRN Reason: Nausea And Vomiting Stop: 02/18/21 08:39 Potassium Chloride (Potassium Chloride Crtab 20 Meq Tabcr) 20 meq PO [facility] Stop: 02/17/21 21:59 Last Admin: 01/25/21 20:11 Dose: 20 meq Documented by: Primidone (Primidone 250 Mg Tab) 500 mg PO [facility] Stop: 02/17/21 21:59 Last Admin: 01/25/21 20:09 Dose: 500 mg Documented by: Rosuvastatin Calcium (Rosuvastatin Calcium 20 Mg Tab) 40 mg PO [facility] Stop: 02/17/21 21:59 Last Admin: 01/25/21 20:09 Dose: 40 mg Documented by: Tramadol HCl (Tramadol Hcl 50 Mg Tablet) 25 - 50 mg PO Q4H PRN PRN Reason: Pain Stop: 02/17/21 21:24 Warfarin Sodium (Warfarin Sod 3 Mg Tab) 3 mg PO DAILY@1600 [facility] Stop: 02/24/21 15:59 Last Admin: 01/25/21 16:41 Dose: 3 mg Documented by:
[2021-01-26] MEDS: WARFARIN SOD 3 MG TAB PO SCH (17:16)
[2021-01-26] MEDS: POTASSIUM CHLORIDE CRTAB 20 MEQ TABCR PO SCH (19:50)
[2021-01-26] MEDS: ROSUVASTATIN CALCIUM 20 MG TAB PO SCH (19:50)
[2021-01-26] MEDS: ASPIRIN 325 MG ECTAB PO SCH (19:51)
[2021-01-26] MEDS: PRIMIDONE 250 MG TAB PO SCH (19:51)
[2021-01-26] MEDS: allopurinoL 300 MG TAB PO SCH (19:51)
[2021-01-26] MEDS: METOPROLOL SUCC 25MG EXT REL TAB PO SCH (19:51)
[2021-01-26] MEDS: MONTELUKAST SODIUM 10 MG TABLET PO SCH (19:51)
[2021-01-26] MEDS: INSULIN GLARGINE SOLOSTAR 100 UNITS/ML 3 ML PEN SC SCH (20:06)
[2021-01-27] MEDS: AMPICILLIN 2,000 MG in SODIUM CHLOR 0.9% AD-VAN 100 ML IV SCH ×3 (03:50→12:38)
[2021-01-27] MEDS: LOSARTAN POTASSIUM 25 MG TAB PO SCH (08:01)
[2021-01-27] MEDS: INSULIN ASPART 100 UNITS/ML 3 ML PEN SC SCH ×2 (08:11→12:35)
[2021-01-27] MEDS ORDERED: POTASSIUM CHLORIDE CRTAB 20 MEQ TABCR PO STA (10:46)
--- NOTE | 2021-01-27 10:50 | Cardiology Progress Note ---
Date of Service January 27, 2021 Assessment & Plan (1) Acute and chronic respiratory failure: (2) Pneumonia: (3) Chronic respiratory failure with hypoxia: (4) History of DVT (deep vein thrombosis): (5) Chronic respiratory failure with hypoxia and hypercapnia: (6) Pleural effusion: (7) Acute on chronic systolic heart failure: (8) COPD (chronic obstructive pulmonary disease): (9) History of pulmonary embolism: (10) Chronic left ventricular systolic heart failure: (11) PAD (peripheral artery disease): (12) PAF (paroxysmal atrial fibrillation): (13) HLD (hyperlipidemia): (14) History of pacemaker: (15) History of incision of pericardium: (16) Coronary artery disease: (17) Ischemic cardiomyopathy: (18) Chronic kidney disease stage 3: (19) Pulmonary emboli: Plan: The patient is anxious to return home. He will start Jardiance after he is home which should help with diuresis. In the past he has not taken Lasix at home for that reason as it over diuresis him and he becomes lightheaded. He still has some minimal rales and I am going to give him another dose of IV Lasix with potassium this morning. He should be able to be discharged however, this afternoon. He has a follow-up appointment with Dr. Suarez on Monday which she will keep. Admission and Anticipated Discharge Date Admission Date: January 18, 2021 Subjective The patient received IV Lasix late yesterday afternoon and according the patient he had a large diuresis. He is still anxious to go home today. Review of Systems Review of Systems: Review of Systems: See HPI for pertinent positives. All other 10 point review of systems are negative. Respiratory: + cough and + dyspnea on exertion Cardiovascular: + edema (Has significant edema bilaterally); no chest pain and no palpitations Physical Exam Physical Exam: General: no acute distress and stated age Head: normocephalic, no masses, lesions, tenderness or abnormalities Eyes: conjunctiva are pink and non-injected, sclera clear Neck: supple, no adenopathy, no bruits, normal jugular venous pulse, no hepatojugular reflux Chest: normal shape and normal respiratory effort Lungs: clear to auscultation and percussion Cardiac Exam: - regular rate & rhythm, no murmurs gallops or rubs - normal S1, normal S2 Pulses: 2(+) throughout Abdomen: abdomen soft, non-tender, no abnormal masses and no hepatosplenomegaly Musculoskeletal: no gait disturbance, no joint inflammation, no deforming arthritis Extremities: no edema and no cyanosis Neuro: grossly normal exam Results & Data ([facility]) Vital Signs (Past 12 Hours) Vital Signs Temp Pulse Pulse Resp BP BP Pulse Ox 01/27/21 08:00 67 01/27/21 07:50 36.6 C 66 17 155/84 H 92 01/26/21 23:14 36.7 C 60 16 145/81 H 99 Laboratory Results Laboratory Results - last 24 hr 01/26/21 01/26/21 01/26/21 10:52 16:26 20:05 POC Glucose 142 H 112 H 120 H 01/27/21 07:23 POC Glucose 119 H Medications Administered Current Inpatient Medications Acetaminophen (Acetaminophen 325 Mg Tab) 650 mg PO Q4H PRN PRN Reason: Pain or Fever Stop: 02/17/21 21:24 Allopurinol (Allopurinol 300 Mg Tab) 300 mg PO HS [facility] Stop: 02/17/21 21:59 Last Admin: 01/26/21 19:51 Dose: 300 mg Documented by: Aspirin (Aspirin 325 Mg Ectab) 325 mg PO HS [facility] Stop: 02/17/21 21:59 Last Admin: 01/26/21 19:51 Dose: 325 mg Documented by: Dextrose (Dextrose 50% 50 Ml Syringe) 25 - 50 ml IV UD PRN; Protocol PRN Reason: Hypoglycemia Protocol Stop: 02/17/21 21:24 Ferrous Sulfate (Ferrous Sulfate 325 Mg Tab) 325 mg PO Q2D@1100 [facility] Stop: 02/18/21 10:59 Last Admin: 01/25/21 11:38 Dose: 325 mg Documented by: Glucagon (Glucagon For Inj 1 Mg Vial) 1 mg SQ UD PRN; Protocol PRN Reason: Hypoglycemia Protocol Stop: 02/17/21 21:24 Glucose (Glucose 10 Tabs/Tube) 4 - 8 tabs PO UD PRN; Protocol PRN Reason: Hypoglycemia Protocol Stop: 02/17/21 21:24 Glucose (Glucose 40% Gel 15 Gm Tube) 15 - 30 gm PO UD PRN; Protocol PRN Reason: Hypoglycemia Protocol Stop: 02/17/21 21:24 Promethazine HCl 12.5 mg/ (Sodium Chloride) 50.5 mls @ 202 mls/hr IV Q6H PRN PRN Reason: Nausea And Vomiting Stop: 02/17/21 21:24 Ampicillin Sodium 2,000 mg/ (Sodium Chloride) 100 mls @ 200 mls/hr IV Q4H [facility] Stop: 02/03/21 11:59 Last Infusion: 01/27/21 08:48 Dose: Infused Documented by: Furosemide 40 mg/ Syringe 4 mls @ 4 mls/min IV ONE ONE Stop: 01/27/21 11:01 Insulin Aspart (Insulin Aspart 100 Units/Ml 3 Ml Pen) 0 units SC [facility] Stop: 02/17/21 21:59 Last Admin: 01/27/21 08:11 Dose: Not Given Documented by: Insulin Glargine (Insulin Glargine Solostar 100 Units/Ml 3 Ml Pen) 20 units SC [facility] Stop: 02/20/21 20:59 Last Admin: 01/26/21 20:06 Dose: 20 units Documented by: Losartan Potassium (Losartan Potassium 25 Mg Tab) 25 mg PO [facility] Stop: 02/24/21 11:44 Last Admin: 01/27/21 08:01 Dose: 25 mg Documented by: Metoprolol Succinate (Metoprolol Succ 25mg Ext Rel Tab) 25 mg PO [facility] Stop: 02/17/21 21:59 Last Admin: 01/26/21 19:51 Dose: 25 mg Documented by: Miscellaneous (Carbohydrates For Hypoglycemia ) 15 - 30 gm PO UD PRN PRN Reason: Hypoglycemia Protocol Stop: 02/17/21 21:24 Last Admin: 01/21/21 07:45 Dose: 15 gm Documented by: Montelukast Sodium (Montelukast Sodium 10 Mg Tablet) 10 mg PO [facility] Stop: 02/17/21 21:59 Last Admin: 01/26/21 19:51 Dose: 10 mg Documented by: Ondansetron HCl (Ondansetron Inj 2 Mg/Ml 2 Ml Vial) 4 mg IV Q6H PRN PRN Reason: Nausea And Vomiting Stop: 02/18/21 08:39 Potassium Chloride (Potassium Chloride Crtab 20 Meq Tabcr) 20 meq PO [facility] Stop: 02/17/21 21:59 Last Admin: 01/26/21 19:50 Dose: 20 meq Documented by: Primidone (Primidone 250 Mg Tab) 500 mg PO [facility] Stop: 02/17/21 21:59 Last Admin: 01/26/21 19:51 Dose: 500 mg Documented by: Rosuvastatin Calcium (Rosuvastatin Calcium 20 Mg Tab) 40 mg PO [facility] Stop: 02/17/21 21:59 Last Admin: 01/26/21 19:50 Dose: 40 mg Documented by: Tramadol HCl (Tramadol Hcl 50 Mg Tablet) 25 - 50 mg PO Q4H PRN PRN Reason: Pain Stop: 02/17/21 21:24 Warfarin Sodium (Warfarin Sod 3 Mg Tab) 3 mg PO DAILY@1600 [facility] Stop: 02/24/21 15:59 Last Admin: 01/26/21 17:16 Dose: 3 mg Documented by: (1) COPD (chronic obstructive pulmonary disease) COPD type: unspecified COPD Qualified Code(s): J44.9 - Chronic obstructive pulmonary disease, unspecified
[2021-01-27] MEDS ORDERED: FUROSEMIDE 40 MG in SYRINGE 0 ML IV ONE (11:00)
--- NOTE | 2021-01-27 11:35 | Discharge Summary ---
Date of Service January 27, 2021 Admission HPI Per Admitting Provider History obtained from patient and records. Medical history significant for chronic respiratory failure secondary to COPD on home O2, history of bronchiectasis, pulmonary nodules, past tobacco abuse, chronic systolic heart failure secondary to ischemic cardiomyopathy (EF 45-50%, TTE 2019), hx CAD/CVA/PVD as per records, SSS sp PPM/PE on coumadin, hypertension, DM2 insulin requiring, history of MGUS, CRI (baseline creatinine 1.3-1.4). hx urolithiasis. Last confinement March 2020 for decompensated heart failure. Patient Lasix held outpatient 3 months ago secondary to volume depletion and kidney dysfunction. 1 day history of fever symptoms, usual cough from COPD as per patient. No chest pain. Usual fluid retention. Denies aspiration. Patient not sure about weight gain. Denies abdominal pain, diarrhea, dysuria symptoms. No known recent COVID-19 contacts. Patient claims to be compliant with home medications. Denies dietary indiscretion. At the ER, patient noted to be febrile, O2 sats 80s at 1 point. Patient given Doxycycline, Unasyn, Solu-Medrol at the ER. IV Heparin started at the ER given subtherapeutic INR on Coumadin. MEDICAL HISTORY: As above. SURGERIES: PPM, mediastinal/thoracic procedures for pericardial effusion, tonsillectomy, toe amputation, cholecystectomy, urologic procedure FAMILY HISTORY: Heart disease, hypertension and diabetes. PERSONAL AND SOCIAL HISTORY: Past tobacco abuse. No chronic intake of alcoholic beverages. Ret[employer]. Admission Exam Per Admitting Provider GENERAL: Comfortable, episodic tachypnea, audible wheezing SKIN: Pallor, warm HEENT: Alopecia, pale palpebral conjunctivae, no ptosis, dry buccal mucosa, nasal cannula in place NECK : Supple, no tenderness CHEST : Decreased breath sounds, diffuse expiratory wheezes, no tenderness HEART : RRR, no obvious murmurs ABDOMEN: Some distention, nontender EXTREMITIES : Bilateral LE swelling, no LE tenderness, no other conspicuous deformities noted NEUROLOGIC : Coherent, no facial asymmetry, no other gross focality Principal Diagnosis Acute and chronic respiratory failure: PE Acute on chronic systolic heart failure Acute right ventricular failure Pulmonary nodules History of CAD/CVA/PVD SSS Hypertension MARY on CKD 3 DM2 Chronic anemia Discharge Exam ROS-No Headache, No Visual Changes, No Nausea, No Vomiting, No Fever, No Chills, No Neck Pain or Stiffness, No Chest Pain, No Palpitations, No SOB, No CAMPOS, No Cough, No Sputum, No Wheezing, No Abdominal Pain, No Diarrhea, No Hematemesis, No Hemoptysis, No Unexpected Weight Loss, No Flank pain, No Melena, No Hematochezia, No Frequency, No Urgency, No Burning, No Hematuria, No Rashes, No Diaphoresis. Appetite is Normal Physical Exam Gen-AAO x 3, NAD, Afebrile Head-NCAT, EOMI, PERRLA, Anicteric Sclera, No Posterior Pharyngeal Erythema Neck-Supple, No JVD, No Thyromegaly, No Masses, No LAD, No Bruits Lungs-Clear to Auscultation Bilaterally, No Rales, No Rhonchi, No Wheezing, No Crepitus Chest-No S4, +S1, +S2, No S3, No Murmurs, No Rubs, No Gallops, No Ectopy Abdomen-Soft, Bowel Sounds Present, Non Tender, Non Distended, No Hepatomegaly, No Splenomegaly, No Palpable Masses, No Rebound, No Rigidity, No Guarding Musculoskeletal-Full Range of Motion Bilaterally, No CVAT Extremities-No Cyanosis, No Clubbing, No Edema Nuero-Cranial Nerves II-XII grossly intact, Motor WNL, DTRs WNL, Strength WNL, Non Focal Psych-Normal Mood Discharge Data Allergies Allergy/AdvReac Type Severity Reaction Status Date / Time albuterol Allergy Severe CHOKING Verified 01/18/21 16:30 SENSATION ipratropium Allergy Severe CHOKING Verified 01/18/21 16:30 SENSATION onion Allergy Intermediate RASH Verified 01/18/21 16:30 levofloxacin Allergy Mild other Verified 01/18/21 16:30 spironolactone AdvReac Severe Problems Unverified 01/18/21 16:30 with breathing atorvastatin AdvReac Intermediate Muscle Pain Verified 01/18/21 16:30 metformin AdvReac Intermediate Diarrhea Verified 01/18/21 16:30 Consultations 01/18/21 18:25 ED Decision to Admit Stat 01/18/21 21:25 Consult Cardiology Routine 01/20/21 12:00 Consult Infectious Diseases Routine 01/23/21 09:00 Consult Anesthesiology Routine 01/24/21 14:50 Consult Anesthesiology Routine Procedures Performed Operation Date: 01/25/21 09:45 Actual Procedures p Echo Transesophageal - Zaid Stevenson DO s Echo Color Flow - Zaid Stevenson DO Ordered Studies 01/18/21 17:14 CT angio chest PE protocol Stat 01/19/21 12:15 US renal/blad retro comp Routine 01/25/21 10:48 CT head/brain wo con Urgent Current Diagnoses Enterococcus as the cause of diseases classified elsewhere (01/18/21) Hyperlipidemia, unspecified (01/18/21) Atherosclerotic heart disease of [place] coronary artery without angina pectoris (01/18/21) Ischemic cardiomyopathy (01/18/21) Other pulmonary embolism without acute cor pulmonale (01/18/21) Paroxysmal atrial fibrillation (01/18/21) Chronic systolic (congestive) heart failure (01/18/21) Acute on chronic systolic (congestive) heart failure (01/18/21) Peripheral vascular disease, unspecified (01/18/21) Pneumonia, unspecified organism (01/18/21) Chronic obstructive pulmonary disease, unspecified (01/18/21) Pleural effusion, not elsewhere classified (01/18/21) Chronic respiratory failure with hypoxia (01/18/21) Chronic respiratory failure with hypercapnia (01/18/21) Acute and chronic respiratory failure, unspecified whether with hypoxia or hypercapnia (01/18/21) Chronic kidney disease, stage 3 (moderate) (01/18/21) Bacteremia (01/18/21) Encounter for other preprocedural examination (01/18/21) Personal history of pulmonary embolism (01/18/21) Personal history of other venous thrombosis and embolism (01/18/21) Presence of cardiac pacemaker (01/18/21) Other specified postprocedural states (01/18/21) Allergies albuterol Allergy (Severe, Verified 01/18/21 16:30) CHOKING SENSATION ipratropium Allergy (Severe, Verified 01/18/21 16:30) CHOKING SENSATION onion Allergy (Intermediate, Verified 01/18/21 16:30) RASH levofloxacin Allergy (Mild, Verified 01/18/21 16:30) other spironolactone Adverse Reaction (Severe, Unverified 01/18/21 16:30) Problems with breathing atorvastatin Adverse Reaction (Intermediate, Verified 01/18/21 16:30) Muscle Pain metformin Adverse Reaction (Intermediate, Verified 01/18/21 16:30) Diarrhea Height/Weight/Isolation Height 6 ft 1 in Weight 100.3 kg Chemistry 01/26/21 06:01 Sodium 142 Potassium 3.4 L Chloride 107 Carbon Dioxide 32 Anion Gap 3.0 BUN 21 H Creatinine 1.06 Glucose 77 Microbiology 01/25/21 11:18 Blood Aerobic Blood Culture - Preliminary No growth in Aerobic bottle after 24 hours. 01/25/21 11:18 Blood Anaerobic Blood Culture - Preliminary No growth in Anaerobic bottle after 24 hours. 01/25/21 11:19 Blood Aerobic Blood Culture - Preliminary No growth in Aerobic bottle after 24 hours. 01/25/21 11:19 Blood Anaerobic Blood Culture - Preliminary No growth in Anaerobic bottle after 24 hours. Hospital Course (1) Acute and chronic respiratory failure: Hx of chronic respiratory failure secondary to COPD/bronchiectasis on home O2 and is complicated by acute on chronic systolic heart failure History noncompliance per outpatient pulmonology notes Patient apparently has stopped oxygen on his own prior to admission per his report as well as pulm outpatient note Possible sepsis Bronchopneumonia Enterococcus faecalis bacteremia Has been on intravenous ampicillin as per ID recommendation Remains stable clinically and underwent [place] which came out to be negative for endocarditis Discussed with the ID and he will need to have IV ampicillin for a total of 2 weeks following negative blood culture 1 01/19/2021 and repeat blood culture 5 to 7 days following completion of antibiotic Other alternatives of intravenous daptomycin or oral Zyvox are second line of therapy and is not recommended We will continue with intravenous amoxicillin for 7 more days PE as seen on CTA Has been on Coumadin INR therapeutic at 2.6 today 01/26/2020 Will have follow-up with coagulation clinic as an outpatient Acute on chronic systolic heart failure Acute right ventricular failure Echo showed acute right ventricular failure with dilation, RV pressure/volume overload as well as increased PASP from prior. Patient EF also reduced from prior echo now down to 35 to 40%. Cardiology evaluation and recommendation noted. Hold off diuretics as patient is volume dependent due to acute right ventricular failure and PE Encourage leg elevation. Can to Nick Review of outpatient cardiology note from 11/03/2020. Patient Lasix was stopped due to volume depletion. CT angio does report cardiomegaly, pulmonary edema with trace left and small right pleural effusion. 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 Coumadin PT/OT evaluation noted. Plan to discharge home today Full code He was advised to take his usual doses of Lasix and also start Jardiance which will diurese him as well I certify that this patient is under my care and that I, or a physicians event sales assistant working with me, had a face to-face encounter that meets the home health [id number] encounter requirements with this patient. The encounter with the patient was in whole, or in part, for the following medical condition, which is the primary reason for home health care (list medical condition): + Cultures. IV antibiotics. I certify that, based on my findings, the following services are medically necessary home health services: My clinical findings support the need for the above services because: Medication Compliance and Monitoring Effective of New Medications Skilled Nsg Assessment Further, I certify that my clinical findings support that this patient is homebound (i.e. absences from home require considerable and taxing effort and are for medical reasons or jehovah's witness services or infrequently or of short duration when for other reasons) because: Transportation Assistance/Unable to Leave Home Unassisted Certification for Home Health Services: Based on the above findings, I certify that this patient is confined to the home and needs intermittent mcfp care, physical therapy and/or speech therapy or continues to need occupational therapy. The patient is under my care, and I have initiated the establishment of the plan of care. This patient will be followed by a physician who will periodically review the plan of care. Total Time Total Time Spent Total Time Spent (In Minutes): 45 mins Discharge Plan Discharge Items Patient Disposition: Home - Home Health Services Reason For Visit: CHF Discharge Diagnosis: Acute and chronic respiratory failure: PE Acute on chronic systolic heart failure Acute right ventricular failure Pulmonary nodules History of CAD/CVA/PVD SSS Hypertension MARY on CKD 3 DM2 Chronic anemia Condition on Discharge: Good Health Concerns: Worsening condition Activity: Resume your previous activity Bathing Comment: Keep IV Line and site dry Sexual Activity: When tolerated Exercise/Sports: None Driving/Machine Use: No limitations Weightbearing: Full weightbearing Non-emergency contact: Primary Care Provider and Specialist Call non-emergency contact if: you have any medication questions Follow-up/Referrals: [facility] [Outside] (Infectious Disease, Call for first opening) Ron Mortensen DO [Primary Care Provider] - (Date & Time 01/28/2021 3:00 PM Provider Ron Mortensen DO Department General Internal Medicine [facility] ) Diet: Carb Consistent or DM2 and Heart Healthy Addtl Attending Provider Instructions: none Pending Studies at Discharge: No Studies:: Needs CMP, BMP, CRP weekly, Needs blood cultures 5-7 days after IV abx completed Stand-Alone Forms: [facility] [employer], Smoking Cessation Medications and DC Order Prescriptions: New potassium chloride [Klor-Con M20] 20 mEq Tablet,Er Particles/Crystals 20 meq PO HS Qty: 30 RF: 0 losartan 25 mg Tablet 25 mg PO QAM Qty: 30 RF: 0 ampicillin sodium 2 gram recon soln 2 g IV Q4H Qty: 40 RF: 0 warfarin [Jantoven] 2 mg tablet 2 mg PO DAILY Qty: 30 RF: 0 Continued primidone [Mysoline] 250 mg Tablet 500 mg PO HS RF: 0 nitroglycerin 0.4 mg Tablet, Sublingual 0.4 mg Sublingual UD PRN (Reason: Chest Pain) RF: 0 montelukast [Singulair] 10 mg Tablet 10 mg PO HS RF: 0 allopurinol [Zyloprim] 300 mg Tablet 300 mg PO HS RF: 0 rosuvastatin [Crestor] 40 mg Tablet 40 mg PO HS RF: 0 Lantus Solostar U-100 Insulin 100 unit/mL (3 mL) Insulin Pen 20 unit SUBCUT HS RF: 0 ferrous sulfate [iron] 325 mg (65 mg iron) Tablet 325 mg PO Q OTHER DAY RF: 0 aspirin 325 mg Tablet 325 mg PO HS RF: 0 metoprolol succinate 50 mg Tablet Extended Release 24 Hr 25 mg PO HS RF: 0 Jardiance 10 mg Tablet 0 mg PO HS RF: 0 Discontinued warfarin [Jantoven] 2 mg tablet 6 mg PO SUTUTHSA@2100 RF: 0 warfarin [Jantoven] 2 mg tablet 4 mg PO MOWEFR@2100 RF: 0 Discharge Orders: Discharge Order (Routine); Ordered 01/27/21 Ordered By: Michael Blanchard Admission Data Admit Date/Time: 01/18/21 20:10 Attending Provider: Michael Blanchard Admit Provider: Nehal Crenshaw I. Primary Care Provider: Ron Mortensen Other Providers: Mustapha Jiménez ; Tk Suarez ; Zaid Stevenson ; Casey Escalante ; Rio Rivera ; Yves Ceballos ; Wilder Sandoval ; Eboni Stock ; Marcy Zimmerman ; Fartun Gómez ; Brett Ingram ; Jagdish Corcoran ; Ankush Paulson ; David Patterson I. ; Ryan Arroyo II ; Kathie Berry ; Wilder Honeycutt ; Giselle Leiva ; Sirisha Sharma ; Deandra Rocha ; Fallon Rothman ; Moriah Hankins ; Vito Mahoney ; Aleksey Herrera ; Yves Deras ; Nik Orona ; Janine Orona ; Chris Bradford ; Yaneth Yeung ; Manas Guerra ; Michael Aparicio ; Angelito Parker ; Alton Hanley ; Maggie Guillen ; Wilder Rg ; Umu Myers ; Pauline Rg ; Jean-Pierre Vo ; Fartun Sheppard ; Madi Long ; Eboni Irizarry ; Татьяна Lane ; Fartun Karimi ; Idalmis Pate ; Tk Fitzpatrick ; Stephani Elizondo ; Marilyn Conklin ; Noy Matias ; Lisa Booth ; Mustapha Booth V ; Bret Garner ; Sirisha White ; Talha Wade ; Dinah Cannon ; Yamilka Deng ; Mustapha Marinelli ; Jonatan Guillen ; Oleg Camp ; Angeline Bedolla ; Noy Carrington ; Zaid Sullivan ; Ernesto Hanley ; Batsheva Terrazas ; Tho Khanna ; Jeanine Anderson ; Yefri Rausch ; Sunil Pinto ; Tho Kelley ; Vito Nichols Jr ; Anaid Bennett ; Nehal Crenshaw I. ; [facility]
[2021-01-27] MEDS: FERROUS SULFATE 325 MG TAB PO SCH (12:44)
== END 2021-01-27 14:30 | disposition home health service (06) | DRG 871 ==
LOC: ED 15:07 → 2S 20:10 → SUATTDRO 20:10 → 2S 21:12

== ENCOUNTER 2021-03-25 07:34 | Inpatient (IN) ==
[2021-03-25] MEDS ORDERED: fentaNYL citrate 100 MCG/2 ML VIAL IV STA ×3 (07:56→12:20)
--- NOTE | 2021-03-25 07:56 | Emergency Department Note ---
Impression & Plan Closed hip fracture, Fall ED Provider Note Provider: Alton Ansari MD DATE OF SERVICE: 03/25/2021 CHIEF COMPLAINT: Fall, left thigh pain HISTORY OF PRESENT ILLNESS: Patient is a 75-year-old gentleman history of VTE on Coumadin, paroxysmal atrial fibrillation, CHF, hyperlipidemia, GERD, type 2 diabetes and neuropathy presenting here today reporting a fall this morning. Patient reports that he was trying to use the bathroom today and his legs gave out and he fell to the ground. Denies striking his head. Complaining of pain in the left proximal thigh region. Denies any other chest pain, shortness of breath, head pain, neck pain, dizziness, abdominal pain, nausea, or injury to his right leg. Denies injury below the left mid thigh. States chronic swelling of the lower extremities is stable. Denies injury to his left upper extremity today but did suffer skin tear of his left forearm several days ago which is bandaged. Does report that he bumped his right arm on the way down and has a small bruise here without significant tenderness. Patient did not take any pain prior to arrival. Patient denies striking his consciousness or again striking his head. Patient denies back pain. Patient denies groin pain. Patient states he transfers but usually uses a wheelchair otherwise at home. REVIEW OF SYSTEMS: A total of 10 review of systems was obtained and negative except as stated above in the HPI. PAST MEDICAL HISTORY: As noted above MEDICATIONS: Reviewed home medications SOCIAL HISTORY: Lives at home in apartment with PHYSICAL EXAM: GENERAL: alert and oriented in no acute distress on stretcher Head: normocephalic and atraumatic EYES: No injection, discharge or icterus. NECK: Trachea midline. Supple without posterior midline tenderness ENT: Mucous membranes pink and moist. LUNGS: Airway patent. No retractions. Breath sounds with slight expiratory whe caitie. HEART: Regular rate and rhythm. No chest wall tenderness ABDOMEN: Soft and non-tender, without guarding or rebound. BACK: No bilateral flank tenderness. SKIN: Acyanotic, warm, dry EXTREMITIES: Patient with an approximate 2 x 2 cm slight contusion in the right mid humerus without other bony tenderness or pain with ROM of this region. No cut noted in this area. Left upper extremity with a bandage approximately 5 x 10 cm area over the left forearm that he states is from several days ago. Soft compartments of the left forearm. Patient will 2+ left lower and 3+ right lower extremity swelling which he reports is stable. Slight abrasion just lateral and inferior to the knee without laceration or foreign body. No significant midline tenderness in this area. Patient has some slight tenderness the left proximal lateral thigh. No significant pelvic instability appreciated or tenderness. Patient with fair amount of pain with ROM of the left hip and upper thigh region. NEUROLOGICAL: No aphasia. No facial droop or slurred speech. Normal strength and tone in the extremities. Sensation to gross touch normal. Ambulatory. EK bpm atrially paced rhythm without PVC. No acute ST segment elevation or depression. QTC 413. CONTINUOUS CARDIAC MONITORING: was ordered and showed a heart rate of 60-70s bpm in atrially paced rhythm PDMP was checked without noted issue. Patient's laboratory studies and imaging reviewed. Differential includes Fracture, dislocation, contusion, intra-abdominal, pneumothorax, intrathoracic, intracranial, neurologic, compartment syndrome, rhabdomyolysis, as well as other pathologies. IMPRESSION/MEDICAL DECISION MAKING: Patient presents after fall states is not strike his head. Denies any neurological acute findings. Slight abrasion below the left knee but I doubt bony injury here. Significant tenderness left thigh but no obvious large ext ernal contusion or wound in this area. Pain with ROM. X-rays obtained in this area. Given small amount of fentanyl for pain. Basic labs were obtained. Sounds more like generalized weakness syncopal fall. Patient is already anticoagulated and I doubt VTE acutely at this time. Blood work with mild stable anemia. INR therapeutic at 2.3. No severe electrolyte abnormality. No elevated troponin. No evidence of hepatitis. Not that impressed by UA for infection. Chest x-ray question some mild interstitial edema and possibly a left mid lung density but not having significant symptoms reported symptoms concerning for pneumonia at this point. Femur x-ray per radiology without significant findings although pelvis x-ray questions possible hip fracture. CT scan of the head and abdomen pelvis and left hip was obtained to further evaluate for occult injury here. Patient given some additional fentanyl for pain. As the patient's been unable to ambulate and has significant pain with ROM of the left hip region Ct obtained here. CT shows evidence of a displaced left intertrochanteric fracture. CT the head and abdomen without other significant acute traumatic injury noted. Doubt cervical spine injury based on Nexus. Patient made aware of hip frx. Requests [facility] who were contacted and aware. Will require admission and hospitalist contacted. DIAGNOSIS: Fall, left hip fracture DISPOSITION: Hospitalist will evaluate Patient was agreeable with this plan. Past Med/Surg History Medical History (Updated 03/25/21 @ 15:47 by Alton Ansari M.D.) Bronchiectasis Chronic kidney disease stage 3 Chronic left ventricular systolic heart failure Chronic respiratory failure with hypoxia and hypercapnia COPD (chronic obstructive pulmonary disease) Coronary artery disease "S/P inferior RI, severe multivessel disease not amenable to intervention" per 2012 cath Diabetes mellitus, type 2 IDDM Diabetic foot ulcer Diastolic dysfunction GERD (gastroesophageal reflux disease) Gout Hearing deficit BL KOO History of CVA (cerebrovascular accident) "YEARS AGO" - reports he has had a tremor ever since stroke. denies add itional residual effects History of depression History of DVT (deep vein thrombosis) "YEARS AGO" ETIOLOGY UNK - ON WARFARIN History of pancreatitis History of pulmonary embolism on shelter coumadin History of tachycardia-bradycardia syndrome HLD (hyperlipidemia) Ischemic cardiomyopathy MRSA infection Myocardial Infarction "YEARS AGO" Nephrolithiasis On home oxygen therapy 2 LPM DAILY PRN (secondary to chronic respiratory failure) Osteoarthritis PAD (peripheral artery disease) PAF (paroxysmal atrial fibrillation) DX "years ago" - ON COUMADIN - FOLLOWS W/ DR. 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 x 17 years Feels Safe at Home: Yes Assistive Devices: None Allergies Allergies Allergy/AdvReac Type Severity Reaction Status Date / Time albuterol Allergy Severe CHOKING Verified 01/18/21 16:30 SENSATION ipratropium Allergy Severe CHOKING Verified 01/18/21 16:30 SENSATION onion Allergy Intermediate RASH Verified 01/18/21 16:30 levofloxacin Allergy Mild other Verified 01/18/21 16:30 spironolactone AdvReac Severe Problems Unverified 01/18/21 16:30 with breathing atorvastatin AdvReac Intermediate Muscle Pain Verified 01/18/21 16:30 metformin AdvReac Intermediate Diarrhea Verified 01/18/21 16:30 Home Meds Home Medications Medication Instructions Recorded Confirmed insulin glargine 100 unit/mL (3 18 unit SUBCUT HS 04/11/18 03/25/21 mL) subcutaneous pen (Lantus Solostar U-100 Insulin) montelukast 10 mg tablet 10 mg PO HS 04/11/18 03/25/21 (Singulair) nitroglycerin 0.4 mg sublingual 0.4 mg SUBLINGUAL UD PRN 04/11/18 03/25/21 tablet primidone 250 mg tablet (Mysoline) 500 mg PO HS 04/11/18 03/25/21 rosuvastatin 40 mg tablet (Crestor) 40 mg PO HS 04/11/18 03/25/21 aspirin 325 mg tablet 325 mg PO HS 08/08/19 03/25/21 metoprolol succinate 50 mg 25 mg PO HS 08/08/19 03/25/21 tablet,extended release 24 hr ferrous sulfate 325 mg (65 mg 325 mg PO Q OTHER DAY 01/09/20 03/25/21 iron) tablet (iron) empagliflozin 10 mg tablet 10 mg PO HS 10/18/20 03/25/21 (Jardiance) allopurinol 300 mg tablet 300 mg PO HS 03/25/21 03/25/21 furosemide 40 mg tablet 20 mg PO DAILY 03/25/21 03/25/21 warfarin 2 mg tablet (Jantoven) 6 mg PO DAILY 03/25/21 03/25/21 Previous Rx's Medication Instructions Recorded potassium chloride 20 mEq 20 meq PO HS #30 tab 01/27/21 tablet,extended release(part/cryst) (Colten Olson) Results & Data (ED) Vital Signs Vital Signs - 24 hr 03/25/21 07:39 03/25/21 07:54 03/25/21 08:35 Temperature 36.7 C Temperature Source Oral Pulse Rate 61 Pulse Rate [Apical] Pulse Rhythm [Apical] Respiratory Rate 18 Blood Pressure 130/69 Blood Pressure [Left Arm] Blood Pressure Mean 89 Blood Pressure Mean [Left Arm] Pulse Oximetry 90 89 L 89 L Oxygen Delivery Method Room Air Room Air Room Air Nasal Cannula Oxygen Flow Rate 0 Sepsis Recent Fever Within 48 Hours No Sepsis New/Unexplained Change in Mental Status No Sepsis Action Taken by Nursing No Action Required Oxygen Flow Rate - Titration 2 Pulse Oximetry Post Tiitration 97 03/25/21 09:31 03/25/21 11:00 03/25/21 13:00 Temperature Temperature Source Pulse Rate Pulse Rate [Apical] 60 70 78 Pulse Rhythm [Apical] Regular Respiratory Rate 18 18 18 Blood Pressure Blood Pressure [Left Arm] 116/57 L 129/66 118/78 Blood Pressure Mean Blood Pressure Mean [Left Arm] 76 87 91 Pulse Oximetry 97 98 97 Oxygen Delivery Method Nasal Cannula Nasal Cannula Nasal Cannula Oxygen Flow Rate 2 2 2 Sepsis Recent Fever Within 48 Hours Sepsis New/Unexplained Change in Mental Status Sepsis Action Taken by Nursing Oxygen Flow Rate - Titration Pulse Oximetry Post Tiitration Laboratory Data Result diagrams: 03/25/21 08:13 03/25/21 08:13 Lab Results 03/25/21 03/25/21 03/25/21 Range/Units 08:13 08:13 08:13 WBC 9.39 (4.8-10.8) K/uL RBC 3.86 L (4.7-6.1) M/uL Hgb 11.7 L (14.0-18.0) g/dL Hct 37.3 L (42-52) % MCV 96.6 (80-100) fL MCH 30.3 (25-34) pg MCHC 31.4 L (32-36) g/dL RDW Std Deviation 53.1 H (36.4-46.3) fL RDW Coeff of Lizet 15.2 H (11.5-14.5) % Plt Count 162 (130-400) K/uL MPV 9.7 (7.4-10.4) fL Immature Gran % (Auto) 0.4 % Neut % (Auto) 75.8 % Lymph % (Auto) 11.5 % Barton % (Auto) 9.6 % Eos % (Auto) 2.4 % Baso % (Auto) 0.3 % Neut # (Auto) 7.11 H (1.4-6.5) K/uL Lymph # (Auto) 1.08 L (1.2-3.4) K/uL Barton # (Auto) 0.90 H (0.11-0.59) K/uL Eos # (Auto) 0.23 (0-0.5) K/uL Baso # (Auto) 0.03 (0-0.2) K/uL Immature Gran # (Auto) 0.04 H (0.00-0.02) K/uL PT 21.9 H (9.0-12.0) Seconds INR 2.3 H (0.9-1.1) Sodium 137 (136-145) mmol/L Potassium 3.9 (3.5-5.1) mmol/L Chloride 106 (98-107) mmol/L Carbon Dioxide 25 (21-32) mmol/L Anion Gap 6.0 (3-11) BUN 20 H (7-18) mg/dl Creatinine 1.39 (0.6-1.4) mg/dl Est Cr Clr Drug Dosing 58.9 ml/min Est GFR ( Amer) 57.9 ml/min Est GFR (Non-Af Amer) 49.9 ml/min BUN/Creatinine Ratio 14.5 (10-20) Glucose 72 (70-99) mg/dl Calcium 8.8 (8.5-10.1) mg/dl Total Bilirubin 0.2 (0.2-1) mg/dl AST 31 (15-37) U/L ALT 23 (12-78) U/L Alkaline Phosphatase 105 (45-117) U/L Troponin I < 0.015 (0-0.045) ng/ml Total Protein 8.2 (6.4-8.2) gm/dl Albumin 2.9 L (3.4-5.0) gm/dl Globulin 5.3 H (2.5-4.0) gm/dl Albumin/Globulin Ratio 0.5 L (0.9-2) Urine Color Urine Appearance (Clear) Urine pH (4.5-7.5) Ur Specific [place] (1.000-1.030) Urine Protein (Negative) Urine Glucose (UA) (Negative) Urine Ketones (Negative) Urine Blood (Negative) Urine Nitrite (Negative) Urine Bilirubin (Negative) Urine Urobilinogen (Negative) Ur Leukocyte Esterase (Negative) Urine WBC (Auto) (0-5) /hpf Urine RBC (Auto) (0-4) /hpf U Hyaline Cast (Auto) (0-5) /lpf U Epithel Cells (Auto) (0-5) /lpf Urine Bacteria (Auto) (Negative) Urine Yeast COVID-19 Eval Order SARS-CoV-2 (PCR) (Negative) 03/25/21 03/25/21 03/25/21 Range/Units 10:20 12:00 12:00 WBC (4.8-10.8) K/uL RBC (4.7-6.1) M/uL Hgb (14.0-18.0) g/dL Hct (42-52) % MCV (80-100) fL MCH (25-34) pg MCHC (32-36) g/dL RDW Std Deviation (36.4-46.3) fL RDW Coeff of Lizet (11.5-14.5) % Plt Count (130-400) K/uL MPV (7.4-10.4) fL Immature Gran % (Auto) % Neut % (Auto) % Lymph % (Auto) % Barton % (Auto) % Eos % (Auto) % Baso % (Auto) % Neut # (Auto) (1.4-6.5) K/uL Lymph # (Auto) (1.2-3.4) K/uL Barton # (Auto) (0.11-0.59) K/uL Eos # (Auto) (0-0.5) K/uL Baso # (Auto) (0-0.2) K/uL Immature Gran # (Auto) (0.00-0.02) K/uL PT (9.0-12.0) Seconds INR (0.9-1.1) Sodium (136-145) mmol/L Potassium (3.5-5.1) mmol/L Chloride (98-107) mmol/L Carbon Dioxide (21-32) mmol/L Anion Gap (3-11) BUN (7-18) mg/dl Creatinine (0.6-1.4) mg/dl Est Cr Clr Drug Dosing ml/min Est GFR ( Amer) ml/min Est GFR (Non-Af Amer) ml/min BUN/Creatinine Ratio (10-20) Glucose (70-99) mg/dl Calcium (8.5-10.1) mg/dl Total Bilirubin (0.2-1) mg/dl AST (15-37) U/L ALT (12-78) U/L Alkaline Phosphatase (45-117) U/L Troponin I (0-0.045) ng/ml Total Protein (6.4-8.2) gm/dl Albumin (3.4-5.0) gm/dl Globulin (2.5-4.0) gm/dl Albumin/Globulin Ratio (0.9-2) Urine Color Yellow Urine Appearance Clear (Clear) Urine pH 5.0 (4.5-7.5) Ur Specific [place] 1.020 (1.000-1.030) Urine Protein Trace H (Negative) Urine Glucose (UA) 3+ H (Negative) Urine Ketones Negative (Negative) Urine Blood Trace H (Negative) Urine Nitrite Negative (Negative) Urine Bilirubin Negative (Negative) Urine Urobilinogen Negative (Negative) Ur Leukocyte Esterase Trace H (Negative) Urine WBC (Auto) 10-30 H (0-5) /hpf Urine RBC (Auto) 0-4 (0-4) /hpf U Hyaline Cast (Auto) 1-5 (0-5) /lpf U Epithel Cells (Auto) 20-30 H (0-5) /lpf Urine Bacteria (Auto) Negative (Negative) Urine Yeast Not Reportable COVID-19 Eval Order Covid19 at [facility] SARS-CoV-2 (PCR) NEGATIVE (Negative) Administered Medications Discontinued Medications Fentanyl Citrate (Fentanyl Citrate 100 Mcg/2 Ml Vial) 50 mcg IV NOW STA Stop: 03/25/21 07:57 Last Admin: 03/25/21 08:32 Dose: 50 mcg Documented by: [id number] Fentanyl Citrate (Fentanyl Citrate 100 Mcg/2 Ml Vial) 50 mcg IV NOW STA Stop: 03/25/21 10:23 Last Admin: 03/25/21 10:26 Dose: 50 mcg Documented by: [id number] Fentanyl Citrate (Fentanyl Citrate 100 Mcg/2 Ml Vial) 50 mcg IV NOW STA Stop: 03/25/21 12:21 Last Admin: 03/25/21 13:39 Dose: 50 mcg Documented by: [id number] Imaging Data Radiologist's Impression: Chest X-Ray 03/25/21 07:54 XR chest 1V not portable HISTORY: fall COMPARISON: Chest 01/18/2021. FINDINGS: No pneumothorax. Trace bilateral pleural effusions. The heart remains mildly enlarged. There is diffuse interstitial thickening, unchanged. There are old bilateral rib fractures again noted. Prior cholecystectomy. Left-sided dual- chamber pacemaker. A few bibasilar linear densities, unchanged. There is a new small focal density within the left midlung zone. IMPRESSION: 1. No change in the cardiomegaly, trace bilateral pleural effusions, and interstitial thickening which may be chronic or represent mild interstitial pulmonary edema. 2. There is a new focal density within the left midlung zone. This could be due to fluid within the major fissure or a developing opacity. Follow-up recommended to ensure resolution and to exclude the possibility of a developing pneumonia. ACT 112: Negative or not required by law. Electronically signed by: Nik Green M.D. 03/25/2021 9:50 AM Femur X-Ray 03/25/21 07:54 INDICATION: [place] ^fall, pain TECHNIQUE: 2 radiographic views of the left femur were obtained. Comparison: None available at the time of this dictation. FINDINGS: There is no evidence for fracture, subluxation or dislocation. There is normal anatomic alignment of the bones. The visualized portion of the hip and knee joints are unremarkable apart from bicompartmental narrowing of the knee joint. There is normal bone mineralization. The soft tissues are unremarkable. There are no radiopaque foreign bodies. IMPRESSION: No acute osseous injury ACT 112: Negative or not required by law. Electronically signed by: Oleg Fitch M.D. 03/25/2021 9:23 AM Pelvis X-Ray 03/25/21 07:54 XR pelvis 1-2V routine CLINICAL HISTORY: fall, L pain COMPARISON: None. DISCUSSION: Questionable linear lucencies and densities as well as cortical irregularity within intersubtrochanteric region of the left proximal femur might represent nondisplaced fracture. Evaluation is limited due to diffuse osteopenia. Mild degenerative changes of the spine are seen. Prominent vascular calcifications are demonstrated. IMPRESSION: Possible nondisplaced fracture at the intertrochanteric region of the left hip. Further evaluation with radiograph of the left hip joint is recommended. Limited exam due to osteopenia. The rest of findings as above. ACT 112: Negative or not required by law. The above report was generated using voice recognition software. It may contain grammatical, syntax or spelling errors. Electronically signed by: Rose Sebastian DO 03/25/2021 9:22 AM Abdomen/Pelvis CT 03/25/21 09:56 CT SCAN OF THE ABDOMEN AND PELVIS WITHOUT CONTRAST CLINICAL HISTORY: fall, L groin/hip pain COMPARISON STUDY: August 20, 2019. Also correlation is made with CT of the left hip performed earlier today. TECHNIQUE: CT scan of the abdomen and pelvis was performed from the lung bases to the proximal femurs. Images are reviewed in the axial, sagittal, and coronal planes. IV contrast was not administered for this examination. A dose lowering technique was utilized adhering to the principles of ALARA. CT DOSE: 2373.11 mGy.cm FINDINGS: Lower chest: Redemonstration of consolidative lesion associated with cystic changes and bronchiectasis within left lower lobe, not significantly changed since prior. Interval resolution of previously seen right pleural effusion. Atelectasis/scarring within the right middle lobe and 14 mm pulmonary nodule adjacent to the minor fissure on the right is slightly enlarged since prior (/). Overall evaluation of lower lungs is suboptimal on this nondedicated exam. Trace pericardial effusion is seen. Liver: The unenhanced liver is normal in size, contour, and attenuation. There is no intrahepatic biliary ductal dilatation. Gallbladder: Is surgically absent. Common bile duct is measuring up to 9 mm in diameter. Spleen: Is slightly prominent measuring 12.6 cm in length. No focal splenic lesions are seen. Pancreas: Unremarkable. Adrenal glands: Unremarkable. Kidneys: The unenhanced kidneys are normal in size small area of increased density is seen within left renal pelvis without evidence of hydronephrosis. Few areas of cortical scarring is seen. Mild hydronephrosis is seen on the right associated with dilated right ureter and irregular 8 mm calculus within distal aspect of the right ureter. Cortical scarring of the right kidney seen. Interval removal of the left ureteral stent. Stable masses are again seen within bilateral perirenal fat which is unchanged since multiple prior studies.. Bowel: Mild hiatal hernia is demonstrated. Bowel loops are nondilated. Appendix is not well seen. Peritoneum: There is no intraperitoneal free air or abdominal ascites. Vasculature: Abdominal aorta is normal in caliber with extensive calcifications within its wall. Bilateral iliac arteries are heavily calcified. Adenopathy: Multiple slightly prominent retroperitoneal lymph nodes are again seen, not significantly changed since prior. Pelvic viscera: Urinary bladder is fluid-filled. Prostate gland is enlarged. Skeletal structures: Osteopenia. Slightly displaced intertrochanteric fracture on the left. Mild multilevel degenerative changes of the spine. IMPRESSION: 1. Mild hydronephrosis and hydroureter is seen on the right with 8 mm obstructive calculus within distal aspect of the right ureter. 2. Nonobstructive nephrolithiasis is seen on the left. Stable masses within bilateral perirenal fat are unchanged since prior study. 3. Interval resolution of the right pleural effusion. Opacities at bilateral bases as detailed above. 4. Mildly increase in size nodule adjacent to the right minor fissure. Evaluation is suboptimal on this nondedicated exam. This nodule was not definitely seen on CT of the chest performed on January 18, 2021 likely due to prominent opacities and septal thickening. Follow-up evaluation is per clinical protocol. 5. Trace pericardial effusion. 6. Osteopenia and slightly displaced intertrochanteric fracture of the left femur. 7. Atherosclerosis. 8. The rest of findings as above. ACT 112: Negative or not required by law. The above report was generated using voice recognition software. It may contain grammatical, syntax or spelling errors. Electronically signed by: Rose Sebastian DO 03/25/2021 12:[address] 03/25/21 09:[address] DOSE: HISTORY: fall, pain TECHNIQUE: Multiaxial CT images of the head were performed without the use of intravenous contrast. Automated exposure control was utilized for this study. A dose lowering technique was utilized adhering to the principles of ALARA. Comparison: Head CT 01/25/2021. Findings: Moderate mucosal thickening and trace fluid levels within the maxillary sinuses and sphenoid sinuses. This is similar to the prior study. The mastoid air cells are clear. Small lucency through the left occipital bone on image 11 remains unchanged. Therefore, this favors a vascular channel rather than a fracture. No definite acute fractures identified within the calvarium. Mild motion artifact. The ventricles and sulci demonstrate mild age-related involutional changes. There is no mass, hematoma, midline shift, acute infarct. Mild periventricular white matter hypodensity is nonspecific but favors mild microvascular ischemic change. This remains unchanged. Impression: No significant change compared to the prior study. No acute intracranial abnormality. Paranasal sinus disease is again noted. ACT 112: Negative or not required by law. Electronically signed by: Nik Green M.D. 03/25/2021 12:[address] 03/25/21 09:56 CT SCAN OF THE LEFT HIP WITHOUT IV CONTRAST CLINICAL HISTORY: Fall. Left hip pain. COMPARISON STUDY: Radiographs of the left femur and bony pelvis performed the same day 03/25/2021. Pelvic CT dated 08/20/2019. TECHNIQUE: CT scan of the left hip is performed from the bony pelvis to the femoral shaft. Images are reviewed in the axial, sagittal, and coronal planes. IV contrast was not administered for this examination. A dose lowering technique was utilized adhering to the principles of ALARA. FINDINGS: The skeletal structures are osteopenic. There is a comminuted intertrochanteric fracture of the left femur with surrounding hemorrhage and hemarthrosis. There is only mild displacement of fragments. The visualized left hemipelvis appears intact. Mild degenerative joint space narrowing is seen in the left hip. There is generalized atrophy of the regional musculature. Advanced atherosclerotic calcification is noted in the left iliac and femoral arteries. The prostate gland is enlarged and heterogeneous. The bladder is normal as visua lized. IMPRESSION: Comminuted intertrochanteric fracture of the left femur as above. ACT 112: Negative or not required by law. Electronically signed by: John Mackay M.D. 03/25/2021 12:03 PM Discharge Plan Visit Data Chief Complaint: Leg Injury/Pain Stated Complaint: L LEG & GROIN PAIN ED Provider: Alton Ansari Discharge Problem: Closed hip fracture, Fall Patient Disposition: Being Evaluated by Hospitalist Discharge Instructions Interventions: ED Discharge Assessment Last Done: 03/25/21 14:49 Forms Stand Alone Forms: My [employer] Prescriptions Prescriptions: No Action primidone [Mysoline] 250 mg Tablet 500 mg PO HS RF: 0 nitroglycerin 0.4 mg Tablet, Sublingual 0.4 mg Sublingual UD PRN (Reason: Chest Pain) RF: 0 montelukast [Singulair] 10 mg Tablet 10 mg PO HS RF: 0 rosuvastatin [Crestor] 40 mg Tablet 40 mg PO HS RF: 0 Lantus Solostar U-100 Insulin 100 unit/mL (3 mL) Insulin Pen 18 unit SUBCUT HS RF: 0 ferrous sulfate [iron] 325 mg (65 mg iron) Tablet 325 mg PO Q OTHER DAY RF: 0 aspirin 325 mg Tablet 325 mg PO HS RF: 0 metoprolol succinate 50 mg Tablet Extended Release 24 Hr 25 mg PO HS RF: 0 potassium chloride [Klor-Con M20] 20 mEq Tablet,Er Particles/Crystals 20 meq PO HS Qty: 30 RF: 0 Jardiance 10 mg Tablet 10 mg PO HS RF: 0 allopurinol 300 mg Tablet 300 mg PO HS RF: 0 warfarin [Jantoven] 2 mg tablet 6 mg PO DAILY RF: 0 furosemide 40 mg tablet 20 mg PO DAILY RF: 0 Referrals Referrals: Ron Mortensen DO [Primary Care Provider] -
[2021-03-25 08:26] LABS: Basophils # (auto) 0.03 K/uL (0-0.2); Basophils % (auto) 0.3 %; Eosinophils # (auto) 0.23 K/uL (0-0.5); Eosinophils % (auto) 2.4 %; Hematocrit (blood only) 37.3 % (42-52); Hemoglobin 11.7 g/dL (14.0-18.0); Immature Granulocytes # (auto) 0.04 K/uL (0.00-0.02); Immature Granulocytes % (auto) 0.4 %; Lymphocytes # (auto) 1.08 K/uL (1.2-3.4); Lymphocytes % (auto) 11.5 %; Mean Corpuscular Hemoglobin 30.3 pg (25-34); Mean Corpuscular Hgb Conc 31.4 g/dL (32-36); Mean Corpuscular Volume 96.6 fL (80-100); Mean Platelet Volume 9.7 fL (7.4-10.4); Monocytes % (auto) 9.6 %; Neutrophils # (auto) 7.11 K/uL (1.4-6.5); Neutrophils % (auto) 75.8 %; Platelet Count 162 K/uL (130-400); RDW Coefficient of Variation 15.2 % (11.5-14.5); RDW Standard Deviation 53.1 fL (36.4-46.3); Red Blood Count 3.86 M/uL (4.7-6.1); White Blood Count 9.39 K/uL (4.8-10.8)
[2021-03-25 08:42] LABS: Alanine Aminotransferase 23 U/L (12-78); Albumin Level 2.9 gm/dl (3.4-5.0); Aspartate Aminotransferase 31 U/L (15-37); BUN Creatinine Ratio 14.5 (10-20); Blood Urea Nitrogen 20 mg/dl (7-18); Calcium 8.8 mg/dl (8.5-10.1); Carbon Dioxide 25 mmol/L (21-32); Chloride 106 mmol/L (98-107); Creatinine Clr Calc Pharmacy 58.9 ml/min; Est GFR (African American) 57.9 ml/min; Est GFR (Non-African American) 49.9 ml/min; Glucose 72 mg/dl (70-99); Potassium 3.9 mmol/L (3.5-5.1); Sodium 137 mmol/L (136-145)
[2021-03-25 08:46] LABS: Albumin Globulin Ratio 0.5 (0.9-2); Alkaline Phosphatase 105 U/L (45-117); Bilirubin,Total 0.2 mg/dl (0.2-1); Globulin 5.3 gm/dl (2.5-4.0); Total Protein 8.2 gm/dl (6.4-8.2); Troponin I < 0.015 ng/ml (0-0.045)
[2021-03-25 08:50] LABS: INR 2.3 (0.9-1.1); Prothrombin Time 21.9 Seconds (9.0-12.0)
--- NOTE | 2021-03-25 09:23 | XRay Report ---
XR pelvis 1-2V routine CLINICAL HISTORY: fall, L pain COMPARISON: None. DISCUSSION: Questionable linear lucencies and densities as well as cortical irregularity within intersubtrochante jeremias region of the left proximal femur might represent nondisplaced fracture. Evaluation is limited du e to diffuse osteopenia. Mild degenerative changes of the spine are seen. Prominent vascular calcifications are demonstrated. IMPRESSION: Possible nondisplaced fracture at the intertrochanteric region of the left hip. Further evaluation wi th radiograph of the left hip joint is recommended. Limited exam due to osteopenia. The rest of findings as above. ACT 112: Negative or not required by law. The above report was generated using voice recognition software. It may contain grammatical, syntax o r spelling errors. Electronically signed by: Rose Sebastian DO 03/25/2021 9:22 AM
--- NOTE | 2021-03-25 09:24 | XRay Report ---
INDICATION: MN ^fall, pain TECHNIQUE: 2 radiographic views of the left femur were obtained. Comparison: None available at the time of this dictation. FINDINGS: There is no evidence for fracture, subluxation or dislocation. There is normal anatomic alignment of the bones. The visualized portion of the hip and knee joints are unremarkable apart from bicompartmen kathy narrowing of the knee joint. There is normal bone mineralization. The soft tissues are unremarkab le. There are no radiopaque foreign bodies. IMPRESSION: No acute osseous injury ACT 112: Negative or not required by law. Electronically signed by: Oleg Fitch M.D. 03/25/2021 9:23 AM
--- NOTE | 2021-03-25 09:51 | XRay Report ---
XR chest 1V not portable HISTORY: fall COMPARISON: Chest 01/18/2021. FINDINGS: No pneumothorax. Trace bilateral pleural effusions. The heart remains mildly enlarged. Ther e is diffuse interstitial thickening, unchanged. There are old bilateral rib fractures again noted. P rior cholecystectomy. Left-sided dual-chamber pacemaker. A few bibasilar linear densities, unchanged. There is a new small focal density within the left midlung zone. IMPRESSION: 1. No change in the cardiomegaly, trace bilateral pleural effusions, and interstitial thickening whic h may be chronic or represent mild interstitial pulmonary edema. 2. There is a new focal density within the left midlung zone. This could be due to fluid within the m ajor fissure or a developing opacity. Follow-up recommended to ensure resolution and to exclude the p ossibility of a developing pneumonia. ACT 112: Negative or not required by law. Electronically signed by: Nik Green M.D. 03/25/2021 9:50 AM
[2021-03-25 10:55] LABS: Appearance Urine Clear (Clear); Bacteria Urine Automated Negative (Negative); Bilirubin Urine Negative (Negative); Blood Urine Trace (Negative); Color Urine Yellow; Epithelial Cell Urine Auto 20-30 /lpf (0-5); Glucose Urine UA 3+ (Negative); Ketones Urine Negative (Negative); Leukocyte Esterase Urine Trace (Negative); Nitrite Urine Negative (Negative); Protein Urine Trace (Negative); RBC Urine Automated 0-4 /hpf (0-4); Urobilinogen Urine Negative (Negative)
--- NOTE | 2021-03-25 12:05 | CT Scan Report ---
CT SCAN OF THE LEFT HIP WITHOUT IV CONTRAST CLINICAL HISTORY: Fall. Left hip pain. COMPARISON STUDY: Radiographs of the left femur and bony pelvis performed the same day 03/25/2021. Pelv ic CT dated 08/20/2019. TECHNIQUE: CT scan of the left hip is performed from the bony pelvis to the femoral shaft. Images are reviewed in the axial, sagittal, and coronal planes. IV contrast was not administered for this exami nation. A dose lowering technique was utilized adhering to the principles of ALARA. FINDINGS: The skeletal structures are osteopenic. There is a comminuted intertrochanteric fracture of the left femur with surrounding hemorrhage and hemarthrosis. There is only mild displacement of frag ments. The visualized left hemipelvis appears intact. Mild degenerative joint space narrowing is seen in the left hip. There is generalized atrophy of the regional musculature. Advanced atherosclerotic calcification is noted in the left iliac and femoral arteries. The prostate gland is enlarged and het erogeneous. The bladder is normal as visualized. IMPRESSION: Comminuted intertrochanteric fracture of the left femur as above. ACT 112: Negative or not required by law. Electronically signed by: John Mackay M.D. 03/25/2021 12:03 PM
--- NOTE | 2021-03-25 12:06 | CT Scan Report ---
HEAD CT NONCONTRAST CT DOSE: HISTORY: fall, pain TECHNIQUE: Multiaxial CT images of the head were performed without the use of intravenous contrast. A utomated exposure control was utilized for this study. A dose lowering technique was utilized adheri ng to the principles of ALARA. Comparison: Head CT 01/25/2021. Findings: Moderate mucosal thickening and trace fluid levels within the maxillary sinuses and sphenoi d sinuses. This is similar to the prior study. The mastoid air cells are clear. Small lucency through the left occipital bone on image 11 remains unchanged. Therefore, this favors a vascular channel rat her than a fracture. No definite acute fractures identified within the calvarium. Mild motion artifac t. The ventricles and sulci demonstrate mild age-related involutional changes. There is no mass, soraya lacey, midline shift, acute infarct. Mild periventricular white matter hypodensity is nonspecific but favors mild microvascular ischemic change. This remains unchanged. Impression: No significant change compared to the prior study. No acute intracranial abnormality. Paranasal sinus disease is again noted. ACT 112: Negative or not required by law. Electronically signed by: Nik Green M.D. 03/25/2021 12:05 PM
--- NOTE | 2021-03-25 12:19 | CT Scan Report ---
CT SCAN OF THE ABDOMEN AND PELVIS WITHOUT CONTRAST CLINICAL HISTORY: fall, L groin/hip pain COMPARISON STUDY: August 20, 2019. Also correlation is made with CT of the left hip performed earli er today. TECHNIQUE: CT scan of the abdomen and pelvis was performed from the lung bases to the proximal femurs . Images are reviewed in the axial, sagittal, and coronal planes. IV contrast was not administered fo r this examination. A dose lowering technique was utilized adhering to the principles of ALARA. CT DOSE: 2373.11 mGy.cm FINDINGS: Lower chest: Redemonstration of consolidative lesion associated with cystic changes and bronchiectasi s within left lower lobe, not significantly changed since prior. Interval resolution of previously seen right pleural effusion. Atelectasis/scarring within the right middle lobe and 14 mm pulmonary nodule adjacent to the minor fissure on the right is slightly enlarge d since prior (11/23). Overall evaluation of lower lungs is suboptimal on this nondedicated exam. Trace pericardial effusion is seen. Liver: The unenhanced liver is normal in size, contour, and attenuation. There is no intrahepatic evin iary ductal dilatation. Gallbladder: Is surgically absent. Common bile duct is measuring up to 9 mm in diameter. Spleen: Is slightly prominent measuring 12.6 cm in length. No focal splenic lesions are seen. Pancreas: Unremarkable. Adrenal glands: Unremarkable. Kidneys: The unenhanced kidneys are normal in size small area of increased density is seen within lef t renal pelvis without evidence of hydronephrosis. Few areas of cortical scarring is seen. Mild hydronephrosis is seen on the right associated with dilated right ureter and irregular 8 mm calc ulus within distal aspect of the right ureter. Cortical scarring of the right kidney seen. Interval removal of the left ureteral stent. Stable masses are again seen within bilateral perirenal fat which is unchanged since multiple prior s tudies.. Bowel: Mild hiatal hernia is demonstrated. Bowel loops are nondilated. Appendix is not well seen. Peritoneum: There is no intraperitoneal free air or abdominal ascites. Vasculature: Abdominal aorta is normal in caliber with extensive calcifications within its wall. Bila teral iliac arteries are heavily calcified. Adenopathy: Multiple slightly prominent retroperitoneal lymph nodes are again seen, not significantly changed since prior. Pelvic viscera: Urinary bladder is fluid-filled. Prostate gland is enlarged. Skeletal structures: Osteopenia. Slightly displaced intertrochanteric fracture on the left. Mild mult ilevel degenerative changes of the spine. IMPRESSION: 1. Mild hydronephrosis and hydroureter is seen on the right with 8 mm obstructive calculus within di stal aspect of the right ureter. 2. Nonobstructive nephrolithiasis is seen on the left. Stable masses within bilateral perirenal fat are unchanged since prior study. 3. Interval resolution of the right pleural effusion. Opacities at bilateral bases as detailed above . 4. Mildly increase in size nodule adjacent to the right minor fissure. Evaluation is suboptimal on t his nondedicated exam. This nodule was not definitely seen on CT of the chest performed on January 18 likely due to prominent opacities and septal thickening. Follow-up evaluation is per clinical prot ocol. 5. Trace pericardial effusion. 6. Osteopenia and slightly displaced intertrochanteric fracture of the left femur. 7. Atherosclerosis. 8. The rest of findings as above. ACT 112: Negative or not required by law. The above report was generated using voice recognition software. It may contain grammatical, syntax o r spelling errors. Electronically signed by: Rose Sebastian DO 03/25/2021 12:18 PM
[2021-03-25] MEDS ORDERED: oxyCODONE HCL IR 5 MG TAB (IMMEDIATE RELEASE) PO PRN ×2 (14:02→16:00)
--- NOTE | 2021-03-25 14:22 | History & Physical Report ---
Date of Service March 25, 2021 Assessment & Plan (1) Hip fracture, left: Plan: -Admit to [facility] -Patient presenting from home after a mechanical fall -In the ED, found to have comminuted intertrochanteric fracture of the left femur -Given patient's extensive cardiac history, will consult cardiology for preop evaluation -Orthopedic consult, case discussed with Talha Oakley PA-C (2) History of pulmonary embolism: (3) History of DVT (deep vein thrombosis): Plan: -Anticoagulated on Coumadin, INR 2.3 -History of subsegmental pulmonary embolism 01/2021 in the setting of subtherapeutic INR -Recommend holding Coumadin tonight and rechecking INR in the morning, provide FFP if needed, would avoid vitamin K -If cleared with orthopedics, recommend resuming Coumadin postoperatively and heparin bridge POD#1 (4) PAF (paroxysmal atrial fibrillation): Plan: -Rate controlled on metoprolol, continue -Anticoagulation as above (5) Coronary artery disease: Plan: -Appears stable, no reports of chest pain -EKG demonstrates an atrial paced rhythm -Continue beta-isaías and statin, patient takes full dose aspirin, hold preoperatively and resume per the discretion of orthopedics (6) Ischemic cardiomyopathy: (7) Diastolic dysfunction: Plan: -Echo 02/03-EF 35 to 40%, grade 2 static diastolic dysfunction, moderate mitral regurgitation, mild tricuspid regurgitation -Volume status acceptable -Recommend holding furosemide preoperatively, resuming POD#1 pending labs (8) History of pacemaker: Plan: -No acute issues (9) Diabetes mellitus, type 2: Plan: -Hgb A1c 6.1 02/2021 -Hold oral agents, Lantus and NovoLog per protocol while hospitalized (10) Cerebrovascular disease: Plan: -Holding aspirin as above -Continue statin (11) Chronic kidney disease stage 3: Plan: -Baseline creatinine runs in the low-mid 1's (12) DVT prophylaxis: Plan: -SCDs History of Present Illness Chief Complaint: Fall, left hip pain Primary Care Provider: Ron Mortensen DO 75-year-old male with complex medical history including DM type II on insulin, CKD stage III, COPD, nocturnal hypoxia on O2, ischemic cardiomyopathy EF 35%, diastolic dysfunction, history of inferior wall PR with severe multivessel CAD not amendable to intervention, paroxysmal atrial fibrillation anticoagulated on Coumadin, history of DVT and PE, history of pericardial effusion s/p pericardiocentesis, pleural effusion s/p thoracentesis, tachybradycardia syndrome s/p pacemaker, and other problems listed below who presents to the ED for evaluation after a fall and left hip pain. Patient reports he was going to the bathroom when his legs gave out from under him and he fell to the ground. He reports he was unable to get up. EMS was called and patient was brought to the ED for further evaluation. Patient denies striking his head. No preceding lightheadedness or dizziness. Denies loss of consciousness. No associated chest pain, palpitations, shortness of breath. Reports he otherwise has been feeling well recently. Has chronic lower extremity edema which is unchanged from baseline. Also has chronic exertional shortness of breath and productive cough from COPD which is unchanged as well. No abdominal pain, nausea, vomiting, diarrhea. Denies any other recent illnesses, fevers, chills. No urinary symptoms. In the ED, patient is found to have comminuted intertrochanteric fracture of the left femur. He is hemodynamically stable. Labs are unremarkable/at patient's baseline. Allergies Allergy/AdvReac Type Severity Reaction Status Date / Time albuterol Allergy Severe CHOKING Verified 01/18/21 16:30 SENSATION ipratropium Allergy Severe CHOKING Verified 01/18/21 16:30 SENSATION onion Allergy Intermediate RASH Verified 01/18/21 16:30 levofloxacin Allergy Mild other Verified 01/18/21 16:30 spironolactone AdvReac Severe Problems Unverified 01/18/21 16:30 with breathing atorvastatin AdvReac Intermediate Muscle Pain Verified 01/18/21 16:30 metformin AdvReac Intermediate Diarrhea Verified 01/18/21 16:30 Home Medications Medication Instructions Recorded Confirmed Type insulin glargine 100 unit/mL (3 18 unit SUBCUT HS 04/11/18 03/25/21 History mL) subcutaneous pen (Lantus Solostar U-100 Insulin) montelukast 10 mg tablet 10 mg PO HS 04/11/18 03/25/21 History (Singulair) nitroglycerin 0.4 mg sublingual 0.4 mg SUBLINGUAL UD PRN 04/11/18 03/25/21 History tablet primidone 250 mg tablet (Mysoline) 500 mg PO HS 04/11/18 03/25/21 History rosuvastatin 40 mg tablet (Crestor) 40 mg PO HS 04/11/18 03/25/21 History aspirin 325 mg tablet 325 mg PO HS 08/08/19 03/25/21 History ferrous sulfate 325 mg (65 mg 325 mg PO Q OTHER DAY 01/09/20 03/25/21 History iron) tablet (iron) empagliflozin 10 mg tablet 10 mg PO HS 10/18/20 03/25/21 History (Jardiance) potassium chloride 20 mEq 20 meq PO HS #30 tab 01/27/21 03/25/21 Rx tablet,extended release(part/cryst) (Klor-Con M) allopurinol 300 mg tablet 300 mg PO HS 03/25/21 03/25/21 History furosemide 40 mg tablet 20 mg PO DAILY 03/25/21 03/25/21 History warfarin 2 mg tablet (Jantoven) 6 mg PO DAILY 03/25/21 03/25/21 History metoprolol succinate 25 mg 25 mg PO QAM 30 Days #30 tab 04/03/21 Rx tablet,extended release 24 hr multivitamin with folic acid 400 1 tab PO QAM 30 Days #30 tab 04/03/21 Rx mcg tablet (Daily-Karla (with folic acid)) oxycodone 5 mg tablet 5 mg PO Q4H PRN 5 Days #15 tab 04/03/21 Rx Past Med/Surg History Medical History Bronchiectasis Chronic kidney disease stage 3 Chronic left ventricular systolic heart failure Chronic respiratory failure with hypoxia and hypercapnia COPD (chronic obstructive pulmonary disease) Coronary artery disease "S/P inferior PR, severe multivessel disease not amenable to intervention" per 2012 cath Diabetes mellitus, type 2 IDDM Diabetic foot ulcer Diastolic dysfunction GERD (gastroesophageal reflux disease) Gout Hearing deficit BL KOO History of CVA (cerebrovascular accident) "YEARS AGO" - reports he has had a tremor ever since stroke. 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 CRANE Seizure QUESTIONABLE- EEG 1 WEEK AGO FOR QUESTIONABLE SEIZURE (reported convulsions, loss of consciousness 1 week ago while watching TV) - [facility] - EEG unremarkable Tremor Venous stasis ulcers of both lower extremities Surgical History History of bronchoscopy History of cardiac cath MULTIPLE - NO STENTS [place] (could not recall dates - most recent in system is from 2011 [place]) History of cholecystectomy 2014 History of incision of pericardium pericardial window secondary to pericardial effusion History of pacemaker PLACED 10/2017 FOR [employer] - [employer] - LAST CHECKED 05/2019 History of tonsillectomy S/P cystoscopy with ureteral stent placement 07/25/2019 [facility] 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 Feels Safe at Home: Yes Assistive Devices: Denture - Upper, Denture - Lower, Oxygen - Continuous and Walker Review of Systems Review of Systems: ROS per HPI, all other systems reviewed and negative Physical Exam Constitutional: WD/WN, vitals as above Eyes: PERRL, conjunctivae normal, anicteric sclerae ENMT: external ear and nose normal, oropharynx normal Respiratory: normal respiratory effort; no respiratory distress Auscultation: + diminished lung sounds Some scattered coarse breath sounds noted in the anterior lung lewis Cardiovascular: Rate/Rhythm: regular rate and regular rhythm Vessels: normal peripheral pulses Extremities: + pedal edema and + edema +2 pitting edema BLE Gastrointestinal (Abdomen): normal bowel sounds, soft, nontender, no hepatosplenomegaly Musculoskeletal: Extremities: no cyanosis and no clubbing LLE shortened and externally rotated, CSM checks intact Skin: no rashes, warm and dry Chronic venous changes BLE Neurologic: PERRL, EOMI, accommodation nl, no face palsy, no dysarthria Psychiatric: A+Ox3, euthymic affect Results & Data Results & Data ([facility]) Vital Signs (Past 12 Hours) Vital Signs Temp Pulse Pulse Resp BP BP Pulse Ox 03/25/21 13:00 78 18 118/78 97 03/25/21 11:00 70 18 129/66 98 03/25/21 09:31 60 18 116/57 L 97 03/25/21 08:35 89 L 03/25/21 07:54 89 L 03/25/21 07:39 36.7 C 61 18 130/69 90 Laboratory Results Short CBC 03/25/21 Range/Units 08:13 WBC 9.39 (4.8-10.8) K/uL Hgb 11.7 L (14.0-18.0) g/dL Hct 37.3 L (42-52) % Plt Count 162 (130-400) K/uL BMP 03/25/21 08:13 Sodium 137 Potassium 3.9 Chloride 106 Carbon Dioxide 25 BUN 20 H Creatinine 1.39 Glucose 72 Calcium 8.8 Cardiac Enzymes 03/25/21 Range/Units 08:13 Troponin I < 0.015 (0-0.045) ng/ml Liver Function 03/25/21 Range/Units 08:13 Total Bilirubin 0.2 (0.2-1) mg/dl AST 31 (15-37) U/L ALT 23 (12-78) U/L Alkaline Phosphatase 105 (45-117) U/L Albumin 2.9 L (3.4-5.0) gm/dl Urine 03/25/21 Range/Units 10:20 Urine Color Yellow Urine Appearance Clear (Clear) Urine pH 5.0 (4.5-7.5) Ur Specific [place] 1.020 (1.000-1.030) Urine Protein Trace H (Negative) Urine Glucose (UA) 3+ H (Negative) Diagnostic Findings Chest X-Ray 03/25/21 07:54 XR chest 1V not portable HISTORY: fall COMPARISON: Chest 01/18/2021. FINDINGS: No pneumothorax. Trace bilateral pleural effusions. The heart remains mildly enlarged. There is diffuse interstitial thickening, unchanged. There are old bilateral rib fractures again noted. Prior cholecystectomy. Left-sided dual- chamber pacemaker. A few bibasilar linear densities, unchanged. There is a new small focal density within the left midlung zone. IMPRESSION: 1. No change in the cardiomegaly, trace bilateral pleural effusions, and interstitial thickening which may be chronic or represent mild interstitial pulmonary edema. 2. There is a new focal density within the left midlung zone. This could be due to fluid within the major fissure or a developing opacity. Follow-up recommended to ensure resolution and to exclude the possibility of a developing pneumonia. ACT 112: Negative or not required by law. Electronically signed by: Nik Green M.D. 03/25/2021 9:50 AM Femur X-Ray 03/25/21 07:54 INDICATION: [place] ^fall, pain TECHNIQUE: 2 radiographic views of the left femur were obtained. Comparison: None available at the time of this dictation. FINDINGS: There is no evidence for fracture, subluxation or dislocation. There is normal anatomic alignment of the bones. The visualized portion of the hip and knee joints are unremarkable apart from bicompartmental narrowing of the knee joint. There is normal bone mineralization. The soft tissues are unremarkable. There are no radiopaque foreign bodies. IMPRESSION: No acute osseous injury ACT 112: Negative or not required by law. Electronically signed by: Oleg Fitch M.D. 03/25/2021 9:23 AM Pelvis X-Ray 03/25/21 07:54 XR pelvis 1-2V routine CLINICAL HISTORY: fall, L pain COMPARISON: None. DISCUSSION: Questionable linear lucencies and densities as well as cortical irregularity within intersubtrochanteric region of the left proximal femur might represent nondisplaced fracture. Evaluation is limited due to diffuse osteopenia. Mild degenerative changes of the spine are seen. Prominent vascular calcifications are demonstrated. IMPRESSION: Possible nondisplaced fracture at the intertrochanteric region of the left hip. Further evaluation with radiograph of the left hip joint is recommended. Limited exam due to osteopenia. The rest of findings as above. ACT 112: Negative or not required by law. The above report was generated using voice recognition software. It may contain grammatical, syntax or spelling errors. Electronically signed by: Rose Sebastian DO 03/25/2021 9:22 AM Abdomen/Pelvis CT 03/25/21 09:56 CT SCAN OF THE ABDOMEN AND PELVIS WITHOUT CONTRAST CLINICAL HISTORY: fall, L groin/hip pain COMPARISON STUDY: August 20, 2019. Also correlation is made with CT of the left hip performed earlier today. TECHNIQUE: CT scan of the abdomen and pelvis was performed from the lung bases to the proximal femurs. Images are reviewed in the axial, sagittal, and coronal planes. IV contrast was not administered for this examination. A dose lowering technique was utilized adhering to the principles of ALARA. CT DOSE: 2373.11 mGy.cm FINDINGS: Lower chest: Redemonstration of consolidative lesion associated with cystic changes and bronchiectasis within left lower lobe, not significantly changed s opal prior. Interval resolution of previously seen right pleural effusion. Atelectasis/scarring within the right middle lobe and 14 mm pulmonary nodule adjacent to the minor fissure on the right is slightly enlarged since prior (11/23). Overall evaluation of lower lungs is suboptimal on this nondedicated exam. Trace pericardial effusion is seen. Liver: The unenhanced liver is normal in size, contour, and attenuation. There is no intrahepatic biliary ductal dilatation. Gallbladder: Is surgically absent. Common bile duct is measuring up to 9 mm in diameter. Spleen: Is slightly prominent measuring 12.6 cm in length. No focal splenic lesions are seen. Pancreas: Unremarkable. Adrenal glands: Unremarkable. Kidneys: The unenhanced kidneys are normal in size small area of increased dens ity is seen within left renal pelvis without evidence of hydronephrosis. Few areas of cortical scarring is seen. Mild hydronephrosis is seen on the right associated with dilated right ureter and irregular 8 mm calculus within distal aspect of the right ureter. Cortical scarring of the right kidney seen. Interval removal of the left ureteral stent. Stable masses are again seen within bilateral perirenal fat which is unchanged since multiple prior studies.. Bowel: Mild hiatal hernia is demonstrated. Bowel loops are nondilated. Appendix is not well seen. Peritoneum: There is no intraperitoneal free air or abdominal ascites. Vasculature: Abdominal aorta is normal in caliber with extensive calcifications within its wall. Bilateral iliac arteries are heavily calcified. Adenopathy: Multiple slightly prominent retroperitoneal lymph nodes are again seen, not significantly changed since prior. Pelvic viscera: Urinary bladder is fluid-filled. Prostate gland is enlarged. Skeletal structures: Osteopenia. Slightly displaced intertrochanteric fracture on the left. Mild multilevel degenerative changes of the spine. IMPRESSION: 1. Mild hydronephrosis and hydroureter is seen on the right with 8 mm obstructive calculus within distal aspect of the right ureter. 2. Nonobstructive nephrolithiasis is seen on the left. Stable masses within bilateral perirenal fat are unchanged since prior study. 3. Interval resolution of the right pleural effusion. Opacities at bilateral bases as detailed above. 4. Mildly increase in size nodule adjacent to the right minor fissure. Eval uation is suboptimal on this nondedicated exam. This nodule was not definitely seen on CT of the chest performed on January 18, 2021 likely due to prominent opacities and septal thickening. Follow-up evaluation is per clinical protocol. 5. Trace pericardial effusion. 6. Osteopenia and slightly displaced intertrochanteric fracture of the left femur. 7. Atherosclerosis. 8. The rest of findings as above. ACT 112: Negative or not required by law. The above report was generated using voice recognition software. It may contain grammatical, syntax or spelling errors. Electronically signed by: Rose Sebastian DO 03/25/2021 12:[address] 03/25/21 09:[address] DOSE: HISTORY: fall, pain TECHNIQUE: Multiaxial CT images of the head were performed without the use of intravenous contrast. Automated exposure control was utilized for this study. A dose lowering technique was utilized adhering to the principles of ALARA. Comparison: Head CT 01/25/2021. Findings: Moderate mucosal thickening and trace fluid levels within the maxillary sinuses and sphenoid sinuses. This is similar to the prior study. The mastoid air cells are clear. Small lucency through the left occipital bone on image 11 remains unchanged. Therefore, this favors a vascular channel rather than a fracture. No definite acute fractures identified within the calvarium. Mild motion artifact. The ventricles and sulci demonstrate mild age-related involutional changes. There is no mass, hematoma, midline shift, acute infarct. Mild periventricular white matter hypodensity is nonspecific but favors mild microvascular ischemic change. This remains unchanged. Impression: No significant change compared to the prior study. No acute intracranial abnormality. Paranasal sinus disease is again noted. ACT 112: Negative or not required by law. Electronically signed by: Nik Green M.D. 03/25/2021 12:[address] 03/25/21 09:56 CT SCAN OF THE LEFT HIP WITHOUT IV CONTRAST CLINICAL HISTORY: Fall. Left hip pain. COMPARISON STUDY: Radiographs of the left femur and bony pelvis performed the same day 03/25/2021. Pelvic CT dated 08/20/2019. TECHNIQUE: CT scan of the left hip is performed from the bony pelvis to the femoral shaft. Images are reviewed in the axial, sagittal, and coronal planes. IV contrast was not administered for this examination. A dose lowering technique was utilized adhering to the principles of ALARA. FINDINGS: The skeletal structures are osteopenic. There is a comminuted intertrochanteric fracture of the left femur with surrounding hemorrhage and hemarthrosis. There is only mild displacement of fragments. The visualized left hemipelvis appears intact. Mild degenerative joint space narrowing is seen in the left hip. There is generalized atrophy of the regional musculature. Advanced atherosclerotic calcification is noted in the left iliac and femoral arteries. The prostate gland is enlarged and heterogeneous. The bladder is normal as visualized. IMPRESSION: Comminuted intertrochanteric fracture of the left femur as above. ACT 112: Negative or not required by law. Electronically signed by: John Mackay M.D. 03/25/2021 12:03 PM Code Status & VTE Plan VTE Prophylaxis Plan VTE Prophylaxis will be ordered: Yes Supervising Physician Co-Signing Physician Notes Pt was seen and examined. Agreed with AMY Carpenter exam, assessment and plan. 75-year-old male with complex medical history including DM type II on insulin, CKD stage III, COPD, nocturnal hypoxia on O2, ischemic cardiomyopathy EF 35%, diastolic dysfunction, history of inferior wall PR with severe multivessel CAD not amendable to intervention, paroxysmal atrial fibrillation anticoagulated on Coumadin, history of DVT and PE, history of pericardial effusion s/p pericardiocentesis, pleural effusion s/p thoracentesis, tachybradycardia syndrome s/p pacemaker presents to the ED after a fall and left hip pain. Pt said that he was walking to the bathroom when his leg gave it up and fell. He said that he was not able to get up. He said that he did not lose consciousness. Denies any chest pain, palpitations, shortness of breath.He had imaging done in the ED that found to have comminuted intertrochanteric fracture of the left femur. Currently he is hemodynamically stable. Continue pain management. Will hold coumadin for possible surgery. Will consult cardiology for preop clearance. Will consult ortho. Continue monitor closely. MD Juan
--- NOTE | 2021-03-25 15:33 | Cardiology Consultation ---
Date of Consultation March 25, 2021 Assessment & Plan (1) Pre-operative cardiovascular examination, bradycardia: (2) History of pacemaker: (3) Ischemic cardiomyopathy: (4) Coronary artery disease: (5) Chronic kidney disease stage 3: (6) History of pulmonary embolism: (7) Chronic left ventricular systolic heart failure: Patient is a very complex 75-year-old male with multivessel ischemic heart disease with chronic stable angina, ischemic cardiomyopathy compensated congestive heart failure underlying chronic obstructive lung disease and recent pulmonary embolus January 2021. Patient has an indwelling dual-chamber pacemaker with normal function Patient is referred for evaluation prior to planned hip repair following mechanical fall. There is no signs of unstable angina congestive heart failure or severe valvular disease historically. Patient is at elevated risk due to underlying significant morbidities Anticoagulation will be need to be closely tailored around surgery given pulmonary embolus in January No additional cardiac testing warranted at this time agree with already made plans for holding diuretic and warfarin initially. Discussed in detail indications for surgical repair of hip fracture with patient noted he is at elevated risk for perioperative complications including congestive heart failure and atrial arrhythmias. However significant risks are included in conservative management We will follow as clinical course progresses History of Present Illness Reason for Consultation: Preoperative cardiovascular evaluation Requesting Physician: Pauline REYES History of Present Illness Patient is a 75-year-old male with complex history which includes 1.Coronary artery disease, status post inferior wall myocardial infarction with severe multivessel coronary artery disease, deemed nonamenable to intervention or surgical revascularization at cardiac catheterization 2011, chronic stable angina pectoris 2.Ischemic cardiomyopathy, with moderate left dysfunction EF approximately 40% 3.Paroxysmal atrial fibrillation, atrial flutter, on coumadin 4.History of DVT and pulmonary embolism, on chronic Coumadin therapy. 5.Hyperlipidemia. 6.History of pericardial effusion, status post window and drainage. 7.History of vasovagal/cough/orthostatic syncope. 8.COPD/chronic bronchiectasis 9.Peripheral arterial disease. 10.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 neuropathy 11.Chronic kidney disease. 12.Tachybrady syndrome, status post permanent pacemaker placement 10/19/2017, [employer] Model: Tower XT 13. Chronic venous insufficiency 14. Enterococcus faecalis sepsis in association with pulmonary embolus January 2021, negative blood cultures, follow-up post therapy Patient is referred for evaluation after a fall and subsequent hip fracture. Patient denies syncope or near syncope. Notes no recent change in clinical status. Denies any angina or nitroglycerin usage. He is relatively sedentary due to chronic stasis edema and underlying pulmonary issues with chronic dyspnea. No tachypalpitations. No fevers chills or unexplained infections currently with hospitalization as noted in January. Notes no change in weight or appetite. Has been taking medications as prescribed. No signs of acute weight gain or fluid retention with mild chronic stasis edema history. Patient chronically anticoagulated. Allergies Allergy/AdvReac Type Severity Reaction Status Date / Time albuterol Allergy Severe CHOKING Verified 01/18/21 16:30 SENSATION ipratropium Allergy Severe CHOKING Verified 01/18/21 16:30 SENSATION onion Allergy Intermediate RASH Verified 01/18/21 16:30 levofloxacin Allergy Mild other Verified 01/18/21 16:30 spironolactone AdvReac Severe Problems Unverified 01/18/21 16:30 with breathing atorvastatin AdvReac Intermediate Muscle Pain Verified 01/18/21 16:30 metformin AdvReac Intermediate Diarrhea Verified 01/18/21 16:30 Home Medications Medication Instructions Recorded Confirmed Type insulin glargine 100 unit/mL (3 18 unit SUBCUT HS 04/11/18 03/25/21 History mL) subcutaneous pen (Lantus Solostar U-100 Insulin) montelukast 10 mg tablet 10 mg PO HS 04/11/18 03/25/21 History (Singulair) nitroglycerin 0.4 mg sublingual 0.4 mg SUBLINGUAL UD PRN 04/11/18 03/25/21 History tablet primidone 250 mg tablet (Mysoline) 500 mg PO HS 04/11/18 03/25/21 History rosuvastatin 40 mg tablet (Crestor) 40 mg PO HS 04/11/18 03/25/21 History aspirin 325 mg tablet 325 mg PO HS 08/08/19 03/25/21 History metoprolol succinate 50 mg 25 mg PO HS 08/08/19 03/25/21 History tablet,extended release 24 hr ferrous sulfate 325 mg (65 mg 325 mg PO Q OTHER DAY 01/09/20 03/25/21 History iron) tablet (iron) empagliflozin 10 mg tablet 10 mg PO HS 10/18/20 03/25/21 History (Jardiance) potassium chloride 20 mEq 20 meq PO HS #30 tab 01/27/21 03/25/21 Rx tablet,extended release(part/cryst) (Klor-Con M) allopurinol 300 mg tablet 300 mg PO HS 03/25/21 03/25/21 History furosemide 40 mg tablet 20 mg PO DAILY 03/25/21 03/25/21 History warfarin 2 mg tablet (Jantoven) 6 mg PO DAILY 03/25/21 03/25/21 History Patient History Medical History Bronchiectasis Chronic kidney disease stage 3 Chronic left ventricular systolic heart failure Chronic respiratory failure with hypoxia and hypercapnia COPD (chronic obstructive pulmonary disease) Coronary artery disease "S/P inferior [place], severe multivessel disease not amenable to intervention" per 2012 cath Diabetes mellitus, type 2 IDDM Diabetic foot ulcer Diastolic dysfunction GERD (gastroesophageal reflux disease) Gout Hearing deficit BL KOO History of CVA (cerebrovascular accident) "YEARS AGO" - reports he has had a tremor ever since stroke. denies additional residual effects History of depression History of DVT (deep vein thrombosis) "YEARS AGO" ETIOLOGY UNK - ON WARFARIN History of pancreatitis History of pulmonary embolism on mcfp coumadin History of tachycardia-bradycardia syndrome HLD (hyperlipidemia) Ischemic cardiomyopathy MRSA infection Myocardial Infarction "YEARS AGO" Nephrolithiasis On home oxygen therapy 2 LPM DAILY PRN (secondary to chronic respiratory failure) Osteoarthritis PAD (peripheral artery disease) PAF (paroxysmal atrial fibrillation) DX "years ago" - ON COUMADIN - FOLLOWS W/ DR. CRANE Seizure QUESTIONABLE- EEG 1 WEEK AGO FOR QUESTIONABLE SEIZURE (reported convulsions, loss of consciousness 1 week ago while watching TV) - [place] [facility] - EEG unremarkable Tremor Venous stasis ulcers of both lower extremities Surgical History History of bronchoscopy History of cardiac cath MULTIPLE - NO STENTS [place] (could not recall dates - most recent in system is from 2011 [place]) History of cholecystectomy 2014 History of incision of pericardium pericardial window secondary to pericardial effusion History of pacemaker PLACED 10/2017 FOR TACHY-SARA SYNDROME - [employer] - LAST CHECKED 05/2019 History of tonsillectomy S/P cystoscopy with ureteral stent placement 07/25/2019 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 Quit in 1971; Second Hand Exposure: No; Hx Alcohol Use: Yes Alcohol type: beer and hard liquor Hx Substance Use: No Preferred Language: Czech Communication Ability: Effective Slot Operations Manager Required: No Beliefs That Will Affect Care: None and Lutheran Lutheran Beliefs: Gnosticist. 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 employed by [employer] with nickel and zinc oxide exposure x 17 years Feels Safe at Home: Yes Assistive Devices: None Review of Systems Review of Systems: All systems reviewed & are unremarkable except as noted in HPI & below Physical Exam Constitutional: + thin; no acute distress Eyes: PERRL, conjunctivae normal, anicteric sclerae + pinpoint pupils (Consistent with medications administered) ENMT: external ear and nose normal, oropharynx normal Neck: trachea midline, no thyromegaly Respiratory: Auscultation: + bronchial breath sounds (With forced cough) Cardiovascular: Rate/Rhythm: regular rate and regular rhythm Heart Sounds: normal S1 and normal S2; no murmur Vessels: no JVD Extremities: + edema (Chronic stasis changes) Gastrointestinal (Abdomen): normal bowel sounds, soft, nontender, no hepatosplenomegaly Psychiatric: Orientation: alert and oriented x 3 Affect: + flat affect Results & Data ([place]) Vital Signs (Past 12 Hours) Vital Signs Temp Pulse Pulse Resp BP BP Pulse Ox 03/25/21 13:00 78 18 118/78 97 03/25/21 11:00 70 18 129/66 98 03/25/21 09:31 60 18 116/57 L 97 03/25/21 08:35 89 L 03/25/21 07:54 89 L 03/25/21 07:39 36.7 C 61 18 130/69 90 Laboratory Results Laboratory Results - last 24 hr 03/25/21 03/25/21 03/25/21 08:13 08:13 08:13 WBC 9.39 RBC 3.86 L Hgb 11.7 L Hct 37.3 L MCV 96.6 MCH 30.3 MCHC 31.4 L RDW Std Deviation 53.1 H RDW Coeff of Lizet 15.2 H Plt Count 162 MPV 9.7 Immature Gran % (Auto) 0.4 Neut % (Auto) 75.8 Lymph % (Auto) 11.5 Hutchinson % (Auto) 9.6 Eos % (Auto) 2.4 Baso % (Auto) 0.3 Neut # (Auto) 7.11 H Lymph # (Auto) 1.08 L Hutchinson # (Auto) 0.90 H Eos # (Auto) 0.23 Baso # (Auto) 0.03 Immature Gran # (Auto) 0.04 H PT 21.9 H INR 2.3 H Sodium 137 Potassium 3.9 Chloride 106 Carbon Dioxide 25 Anion Gap 6.0 BUN 20 H Creatinine 1.39 Est Cr Clr Drug Dosing 58.9 Est GFR ( Amer) 57.9 Est GFR (Non-Af Amer) 49.9 BUN/Creatinine Ratio 14.5 Glucose 72 Calcium 8.8 Total Bilirubin 0.2 AST 31 ALT 23 Alkaline Phosphatase 105 Troponin I < 0.015 Total Protein 8.2 Albumin 2.9 L Globulin 5.3 H Albumin/Globulin Ratio 0.5 L Urine Color Urine Appearance Urine pH Ur Specific [place] Urine Protein Urine Glucose (UA) Urine Ketones Urine Blood Urine Nitrite Urine Bilirubin Urine Urobilinogen Ur Leukocyte Esterase Urine WBC (Auto) Urine RBC (Auto) U Hyaline Cast (Auto) U Epithel Cells (Auto) Urine Bacteria (Auto) Urine Yeast COVID-19 Eval Order SARS-CoV-2 (PCR) 03/25/21 03/25/21 03/25/21 10:20 12:00 12:00 WBC RBC Hgb Hct MCV MCH MCHC RDW Std Deviation RDW Coeff of Lizet Plt Count MPV Immature Gran % (Auto) Neut % (Auto) Lymph % (Auto) Hutchinson % (Auto) Eos % (Auto) Baso % (Auto) Neut # (Auto) Lymph # (Auto) Hutchinson # (Auto) Eos # (Auto) Baso # (Auto) Immature Gran # (Auto) PT INR Sodium Potassium Chloride Carbon Dioxide Anion Gap BUN Creatinine Est Cr Clr Drug Dosing Est GFR ( Amer) Est GFR (Non-Af Amer) BUN/Creatinine Ratio Glucose Calcium Total Bilirubin AST ALT Alkaline Phosphatase Troponin I Total Protein Albumin Globulin Albumin/Globulin Ratio Urine Color Yellow Urine Appearance Clear Urine pH 5.0 Ur Specific [place] 1.020 Urine Protein Trace H Urine Glucose (UA) 3+ H Urine Ketones Negative Urine Blood Trace H Urine Nitrite Negative Urine Bilirubin Negative Urine Urobilinogen Negative Ur Leukocyte Esterase Trace H Urine WBC (Auto) 10-30 H Urine RBC (Auto) 0-4 U Hyaline Cast (Auto) 1-5 U Epithel Cells (Auto) 20-30 H Urine Bacteria (Auto) Negative Urine Yeast Not Reportable COVID-19 Eval Order Covid19 at [facility] SARS-CoV-2 (PCR) NEGATIVE
[2021-03-25] MEDS ORDERED: DEXTROSE 50% 50 ML SYRINGE IV PRN (16:00)
[2021-03-25] MEDS ORDERED: GLUCOSE 10 TABS/TUBE PO PRN (16:00)
[2021-03-25] MEDS ORDERED: MoRPHine SULFATE 2 MG/ML CARP IV PRN (16:00)
[2021-03-25] MEDS ORDERED: bisacodyL 10 MG SUPP PR PRN (16:00)
[2021-03-25] MEDS ORDERED: NALOXONE HCL 0.4 MG/1 ML VIAL/CARP IV PRN (16:00)
[2021-03-25] MEDS ORDERED: ACETAMINOPHEN 325 MG TAB PO PRN (16:00)
[2021-03-25] MEDS ORDERED: MAGNESIUM HYDROXIDE SUSP 30 ML UDC PO PRN (16:00)
[2021-03-25] MEDS ORDERED: ONDANSETRON INJ 2 MG/ML 2 ML VIAL IV PRN (16:00)
[2021-03-25] MEDS ORDERED: GLUCAGON FOR INJ 1 MG VIAL SQ PRN (16:00)
[2021-03-25] MEDS ORDERED: GLUCOSE 40% GEL 15 GM TUBE PO PRN (16:00)
[2021-03-25] MEDS: CARBOHYDRATES FOR HYPOGLYCEMIA PO PRN ×3 (16:29→20:20)
--- NOTE | 2021-03-25 17:54 | Orthopedic Consultation ---
Date of Consultation March 25, 2021 Assessment & Plan (1) Hip fracture, left: X-rays reviewed. Patient will require a left TFN. Patient has multiple comorbidities. Only undergoing consultation for cardiology. Patient's INR was 2.3 on admission and will need to be close to 1.3 for surgery. I discussed the case with Paulineandria REYES. Plans will be to let his INR drift down slowly. If he is cleared for surgery by tomorrow, we will plan on left TFN with Dr. Woo. If the INR is not satisfactory, we may have to postpone surgery until Monday. Plans to recheck INR early in the morning and reassess at that time. History of Present Illness Reason for Consultation: Left intertrochanteric hip fracture Attending Physician: Lui Martinez MD History of Present Illness Patient is a 75-year-old male who states he had gotten up to use the restroom this morning. As he was pulling his pants down to use the toilet, he lost his balance and fell to the floor. He had immediate pain in his left hip and groin and was having difficulty ambulating he denies loss of consciousness. He had no increased shortness of breath or chest pain at the time of the fall. He was [facility] ED where he was seen by the staff. X- rays were taken and he was found to have a left intertrochanteric hip fracture. [facility] we have been asked to take care of his left hip fracture. Currently the patient is lying in bed awake and alert. He states that the hip feels sore but pain is controlled at this time. He has no other new complaints at this time. Allergies Allergy/AdvReac Type Severity Reaction Status Date / Time albuterol Allergy Severe CHOKING Verified 01/18/21 16:30 SENSATION ipratropium Allergy Severe CHOKING Verified 01/18/21 16:30 SENSATION onion Allergy Intermediate RASH Verified 01/18/21 16:30 levofloxacin Allergy Mild other Verified 01/18/21 16:30 spironolactone AdvReac Severe Problems Unverified 01/18/21 16:30 with breathing atorvastatin AdvReac Intermediate Muscle Pain Verified 01/18/21 16:30 metformin AdvReac Intermediate Diarrhea Verified 01/18/21 16:30 Home Medications Medication Instructions Recorded Confirmed Type insulin glargine 100 unit/mL (3 18 unit SUBCUT HS 04/11/18 03/25/21 History mL) subcutaneous pen (Lantus Solostar U-100 Insulin) montelukast 10 mg tablet 10 mg PO HS 04/11/18 03/25/21 History (Singulair) nitroglycerin 0.4 mg sublingual 0.4 mg SUBLINGUAL UD PRN 04/11/18 03/25/21 History tablet primidone 250 mg tablet (Mysoline) 500 mg PO HS 04/11/18 03/25/21 History rosuvastatin 40 mg tablet (Crestor) 40 mg PO HS 04/11/18 03/25/21 History aspirin 325 mg tablet 325 mg PO HS 08/08/19 03/25/21 History metoprolol succinate 50 mg 25 mg PO HS 08/08/19 03/25/21 History tablet,extended release 24 hr ferrous sulfate 325 mg (65 mg 325 mg PO Q OTHER DAY 01/09/20 03/25/21 History iron) tablet (iron) empagliflozin 10 mg tablet 10 mg PO HS 10/18/20 03/25/21 History (Jardiance) potassium chloride 20 mEq 20 meq PO HS #30 tab 01/27/21 03/25/21 Rx tablet,extended release(part/cryst) (Klor-Con M) allopurinol 300 mg tablet 300 mg PO HS 03/25/21 03/25/21 History furosemide 40 mg tablet 20 mg PO DAILY 03/25/21 03/25/21 History warfarin 2 mg tablet (Jantoven) 6 mg PO DAILY 03/25/21 03/25/21 History Patient History Medical History Bronchiectasis Chronic kidney disease stage 3 Chronic left ventricular systolic heart failure Chronic respiratory failure with hypoxia and hypercapnia COPD (chronic obstructive pulmonary disease) Coronary artery disease "S/P inferior [place], severe multivessel disease not amenable to intervention" per 2012 cath Diabetes mellitus, type 2 IDDM Diabetic foot ulcer Diastolic dysfunction GERD (gastroesophageal reflux disease) Gout Hearing deficit BL KOO History of CVA (cerebrovascular accident) "YEARS AGO" - reports he has had a tremor ever since stroke. denies additional residual effects History of depression History of DVT (deep vein thrombosis) "YEARS AGO" ETIOLOGY UNK - ON WARFARIN History of pancreatitis History of pulmonary embolism on manager intermediate coumadin History of tachycardia-bradycardia syndrome HLD (hyperlipidemia) Ischemic cardiomyopathy MRSA infection Myocardial Infarction "YEARS AGO" Nephrolithiasis On home oxygen therapy 2 LPM DAILY PRN (secondary to chronic respiratory failure) Osteoarthritis PAD (peripheral artery disease) PAF (paroxysmal atrial fibrillation) DX "years ago" - ON COUMADIN - FOLLOWS W/ DR. CRANE Seizure QUESTIONABLE- EEG 1 WEEK AGO FOR QUESTIONABLE SEIZURE (reported convulsions, loss of consciousness 1 week ago while watching TV) - [facility] - EEG unremarkable Tremor Venous stasis ulcers of both lower extremities Surgical History History of bronchoscopy History of cardiac cath MULTIPLE - NO STENTS [place] (could not recall dates - most recent in system is from 2011 [place]) History of cholecystectomy 2014 History of incision of pericardium pericardial window secondary to pericardial effusion History of pacemaker PLACED 10/2017 FOR TACHY-SARA SYNDROME - [employer] - LAST CHECKED 05/2019 History of tonsillectomy S/P cystoscopy with ureteral stent placement 07/25/2019 [facility] 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 Quit in 1971; Smoking End Date: 1971; Second Hand Exposure: No; Do You Dip or Chew Tobacco: No; Tobacco Cessation Education Requested by Patient: No Hx Alcohol Use: Yes Alcohol type: beer and hard liquor Hx Substance Use: No Preferred Language: Turkmen Communication Ability: Effective Gear Repairer Required: No Beliefs That Will Affect Care: None marital status: Current Living Situation: Spouse current occupation: Formally employed by [employer] with nickel and zinc oxide exposure x 17 years Other Information That Helps Us Care for You: No Feels Safe at Home: Yes Safety Concerns: Feels Safe At This Time Assistive Devices: Walker and Wheelchair Physical Exam Physical Exam: Patient is a 75-year-old white male who appears older than his stated age. He is currently alert and oriented x3. No acute distress, pleasant and cooperative. On examination of his left lower extremity, he has very little leg length discrepancies compared to the right. Any attempts to move the left hip because of discomfort and range of motion is deferred. Range of motion is deferred of the left knee at this time secondary to left hip fracture. His left knee is nontender on palpation and denies complaints. He is able to move the left ankle. He has noted edema of both feet and has history of neuropathy as well as a right heel ulcer. No complaints of pain of the right hip, knee, ankle. Upper extremities are benign at this time and range of motion is intact. Denies cervical, thoracic, lumbar pain at this time. Other than noted neuropathy, no gross motor or sensory loss seen at this time. Results & Data ([facility]) Vital Signs (Past 12 Hours) Vital Signs Temp Pulse Pulse Pulse Resp BP BP 03/25/21 15:10 36.9 C 83 18 116/58 L 03/25/21 13:00 78 18 118/78 03/25/21 11:00 70 18 129/66 03/25/21 09:31 60 18 116/57 L 03/25/21 08:35 03/25/21 07:54 03/25/21 07:39 36.7 C 61 18 130/69 Pulse Ox 03/25/21 15:10 99 03/25/21 13:00 97 03/25/21 11:00 98 03/25/21 09:31 97 03/25/21 08:35 89 L 03/25/21 07:54 89 L 03/25/21 07:39 90 Diagnostic Findings [facility], [id number] CT Scan Report Patient: RON ETIENNE Date: 03/25/21#: [id number]: [id number] ID:[id number]: Date: 1945[facility] Zip: [place], [place] [address]Ozw: 75Location: EDSex: MRoom/Bed:Att Phy:Diagnosis: L LEG & GROIN PAINPri Phy: Ron Mortensen, DOService Date: 03/25/21Fam Phy:Interpreting Phy: John Mackay MDAdmit Phy: Ordering Phy: Alton Ansari M.D. cc: ~ CT SCAN OF THE LEFT HIP WITHOUT IV CONTRAST CLINICAL HISTORY: Fall. Left hip pain. COMPARISON STUDY: Radiographs of the left femur and bony pelvis performed the same day 03/25/2021. Pelvic CT dated 08/20/2019. TECHNIQUE: CT scan of the left hip is performed from the bony pelvis to the femoral shaft. Images are reviewed in the axial, sagittal, and coronal planes. IV contrast was not administered for this examination. A dose lowering technique was utilized adhering to the principles of ALARA. FINDINGS: The skeletal structures are osteopenic. There is a comminuted intertrochanteric fracture of the left femur with surrounding hemorrhage and hemarthrosis. There is only mild displacement of fragments. The visualized left hemipelvis appears intact. Mild degenerative joint space narrowing is seen in the left hip. There is generalized atrophy of the regional musculature. Advanced atherosclerotic calcification is noted in the left iliac and femoral arteries. The prostate gland is enlarged and heterogeneous. The bladder is normal as visualized. IMPRESSION: Comminuted intertrochanteric fracture of the left femur as above.
--- NOTE | 2021-03-25 18:03 | Anesthesiology Consultation ---
Date of Service March 25, 2021 Assessment & Plan (1) Encounter for pre-operative examination: Chart Review Chart Review: Acceptable Risk for Surgery (high risk but okay for surgery as per cardiology) and Patient NOT seen in Pre Admission Testing Consults Requested none cardiology and medicine are following the patient History Surgery Operation Date: 03/26/21 08:20 Proposed Procedures p Left Troch Nail (Synthes) - Erick Woo MD Height/Weight Height: 6 ft 1 in Weight: 100 kg Allergies Allergy/AdvReac Type Severity Reaction Status Date / Time albuterol Allergy Severe CHOKING Verified 01/18/21 16:30 SENSATION ipratropium Allergy Severe CHOKING Verified 01/18/21 16:30 SENSATION onion Allergy Intermediate RASH Verified 01/18/21 16:30 levofloxacin Allergy Mild other Verified 01/18/21 16:30 spironolactone AdvReac Severe Problems Unverified 01/18/21 16:30 with breathing atorvastatin AdvReac Intermediate Muscle Pain Verified 01/18/21 16:30 metformin AdvReac Intermediate Diarrhea Verified 01/18/21 16:30 Medications Home Medications Medication Instructions Recorded Confirmed Last Taken insulin glargine 100 unit/mL (3 18 unit SUBCUT HS 04/11/18 03/25/21 01/17/21 mL) subcutaneous pen (Lantus Solostar U-100 Insulin) montelukast 10 mg tablet 10 mg PO HS 04/11/18 03/25/21 01/17/21 (Singulair) nitroglycerin 0.4 mg sublingual 0.4 mg SUBLINGUAL UD PRN 04/11/18 03/25/21 01/17/21 tablet primidone 250 mg tablet (Mysoline) 500 mg PO HS 04/11/18 03/25/21 01/17/21 rosuvastatin 40 mg tablet (Crestor) 40 mg PO HS 04/11/18 03/25/21 01/17/21 aspirin 325 mg tablet 325 mg PO HS 08/08/19 03/25/21 01/17/21 metoprolol succinate 50 mg 25 mg PO HS 08/08/19 03/25/21 01/17/21 tablet,extended release 24 hr ferrous sulfate 325 mg (65 mg 325 mg PO Q OTHER DAY 01/09/20 03/25/21 01/17/21 iron) tablet (iron) empagliflozin 10 mg tablet 10 mg PO HS 10/18/20 03/25/21 01/17/21 (Jardiance) potassium chloride 20 mEq 20 meq PO HS #30 tab 01/27/21 03/25/21 Unknown tablet,extended release(part/cryst) (Klor-Con M) allopurinol 300 mg tablet 300 mg PO HS 03/25/21 03/25/21 Unknown furosemide 40 mg tablet 20 mg PO DAILY 03/25/21 03/25/21 Unknown warfarin 2 mg tablet (Jantoven) 6 mg PO DAILY 03/25/21 03/25/21 Unknown Active Medications Generic Name Dose Route Start Last Admin Trade Name Freq PRN Reason Stop Dose Admin Insulin Aspart 0 units 03/25/21 16:30 03/25/21 18:11 Insulin Aspart 100 Units/Ml 3 Ml Pen SC 04/24/21 16:29 Not Given ACHS ANNA Miscellaneous 15 - 30 gm 03/25/21 16:00 03/25/21 16:48 Carbohydrates For Hypoglycemia PO 04/24/21 15:59 15 gm UD PRN Administration Hypoglycemia Protocol Past Medical History Medical History Bronchiectasis Chronic kidney disease stage 3 Chronic left ventricular systolic heart failure Chronic respiratory failure with hypoxia and hypercapnia COPD (chronic obstructive pulmonary disease) Coronary artery disease "S/P inferior [place], severe multivessel disease not amenable to intervention" per 2012 cath Diabetes mellitus, type 2 IDDM Diabetic foot ulcer Diastolic dysfunction GERD (gastroesophageal reflux disease) Gout Hearing deficit BL KOO History of CVA (cerebrovascular accident) "YEARS AGO" - reports he has had a tremor ever since stroke. denies additional residual effects History of depression History of DVT (deep vein thrombosis) "YEARS AGO" ETIOLOGY UNK - ON WARFARIN History of pancreatitis History of pulmonary embolism on director long term care coumadin History of tachycardia-bradycardia syndrome HLD (hyperlipidemia) Ischemic cardiomyopathy MRSA infection Myocardial Infarction "YEARS AGO" Nephrolithiasis On home oxygen therapy 2 LPM DAILY PRN (secondary to chronic respiratory failure) Osteoarthritis PAD (peripheral artery disease) PAF (paroxysmal atrial fibrillation) DX "years ago" - ON COUMADIN - FOLLOWS W/ DR. CRANE Seizure QUESTIONABLE- EEG 1 WEEK AGO FOR QUESTIONABLE SEIZURE (reported convulsions, loss of consciousness 1 week ago while watching TV) - [facility] - EEG unremarkable Tremor Venous stasis ulcers of both lower extremities Past Family History Family History Mother Alzheimer disease Past Surgical History Surgical History History of bronchoscopy History of cardiac cath MULTIPLE - NO STENTS [place] (could not recall dates - most recent in system is from 2011 [place]) History of cholecystectomy 2014 History of incision of pericardium pericardial window secondary to pericardial effusion History of pacemaker PLACED 10/2017 FOR [employer] - [employer] - LAST CHECKED 05/2019 History of tonsillectomy S/P cystoscopy with ureteral stent placement 07/25/2019 [facility] 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 Quit in 1971 Do You Dip or Chew Tobacco: No Smoking End Date: 1971 Hx Alcohol Use: Yes Alcohol type: beer and hard liquor alcohol intake frequency: holidays/special occasions only Hx Substance Use: No substance use type: does not use Physical Exam Vital Signs Last Vital Signs Temp 36.9 C 03/25/21 15:10 Pulse 83 03/25/21 15:10 Resp 18 03/25/21 15:10 BP 116/58 L 03/25/21 15:10 Pulse Ox 99 03/25/21 15:10 Testing Laboratory Results 03/25/21 08:13 03/25/21 08:13 PT 21.9 Seconds (9.0-12.0) H 03/25/21 08:13 INR 2.3 (0.9-1.1) H 03/25/21 08:13 Urine Color Yellow 03/25/21 10:20 Urine Appearance Clear (Clear) 03/25/21 10:20 Urine pH 5.0 (4.5-7.5) 03/25/21 10:20 Ur Specific [place] 1.020 (1.000-1.030) 03/25/21 10:20 Urine Protein Trace (Negative) H 03/25/21 10:20 Urine Glucose (UA) 3+ (Negative) H 03/25/21 10:20 Urine Ketones Negative (Negative) 03/25/21 10:20 Urine Nitrite Negative (Negative) 03/25/21 10:20 Ur Leukocyte Esterase Trace (Negative) H 03/25/21 10:20 Urine WBC (Auto) 10-30 /hpf (0-5) H 03/25/21 10:20 Urine RBC (Auto) 0-4 /hpf (0-4) 03/25/21 10:20 U Hyaline Cast (Auto) 1-5 /lpf (0-5) 03/25/21 10:20 U Epithel Cells (Auto) 20-30 /lpf (0-5) H 03/25/21 10:20 Urine Bacteria (Auto) Negative (Negative) 03/25/21 10:20 Blood Type A Positive 03/25/21 16:31 Antibody Screen NEGATIVE 03/25/21 16:31 03/25/21 03/25/21 03/25/21 17:02 16:44 16:21 POC Glucose 76 65 L* 56 L* 03/25/21 03/25/21 16:21 16:19 POC Glucose 60 L* 60 L* Electrocardiogram Date: 03/25/21 A-paced, rate 66, prolonged AV conduction, cannot rule out anterior infarct Chest X-Ray Date: 03/25/21 XR chest 1V not portable HISTORY: fall COMPARISON: Chest 01/18/2021. FINDINGS: No pneumothorax. Trace bilateral pleural effusions. The heart remains mildly enlarged. There is diffuse interstitial thickening, unchanged. There are old bilateral rib fractures again noted. Prior cholecystectomy. Left-sided dual- chamber pacemaker. A few bibasilar linear densities, unchanged. There is a new small focal density within the left midlung zone. IMPRESSION: 1. No change in the cardiomegaly, trace bilateral pleural effusions, and interstitial thickening which may be chronic or represent mild interstitial pulmonary edema. 2. There is a new focal density within the left midlung zone. This could be due to fluid within the major fissure or a developing opacity. Follow-up recommended to ensure resolution and to exclude the possibility of a developing pneumonia. ACT 112: Negative or not required by law. Electronically signed by: Nik Green M.D. 03/25/2021 9:50 AM Dictated: 03/25/21945Transcribed: 03/25/21945 Echocardiogram Date: 01/25/21 EF: moderately reduced Other Findings: + RVH (mild enlargement, mild diffuse hypokinesis) mild pulmonary hypertension, RVSP 44 mm Hg Other Testing HEAD CT NONCONTRAST CT DOSE: HISTORY: fall, pain TECHNIQUE: Multiaxial CT images of the head were performed without the use of intravenous contrast. Automated exposure control was utilized for this study. A dose lowering technique was utilized adhering to the principles of ALARA. Comparison: Head CT 01/25/2021. Findings: Moderate mucosal thickening and trace fluid levels within the maxillary sinuses and sphenoid sinuses. This is similar to the prior study. The mastoid air cells are clear. Small lucency through the left occipital bone on image 11 remains unchanged. Therefore, this favors a vascular channel rather than a fracture. No definite acute fractures identified within the calvarium. Mild motion artifact. The ventricles and sulci demonstrate mild age-related involutional changes. There is no mass, hematoma, midline shift, acute infarct. Mild periventricular white matter hypodensity is nonspecific but favors mild microvascular ischemic change. This remains unchanged. Impression: No significant change compared to the prior study. No acute intracranial abnormality. Paranasal sinus disease is again noted. ACT 112: Negative or not required by law. Electronically signed by: Nik Green M.D. 03/25/2021 12:05 PM Dictated: 03/25/21 1154Transcribed: 03/25/21 1154
[2021-03-25] MEDS: INSULIN ASPART 100 UNITS/ML 3 ML PEN SC SCH ×2 (18:11→20:25)
--- NOTE | 2021-03-25 18:31 | Electrocardiogram Report ---
Test Reason : Blood Pressure : / mmHG Vent. Rate : 066 BPM Atrial Rate : 065 BPM P-R Int : 236 ms QRS Dur : 100 ms QT Int : 394 ms P-R-T Axes : 157 046 070 degrees QTc Int : 413 ms Atrial-paced rhythm with prolonged AV conduction Abnormal ECG When compared with ECG of 18-JAN-2021 16:30, Electronic atrial pacemaker has replaced Sinus rhythm Confirmed by Jeff aDly ([id number]) on 03/25/2021 6:30:34 PM Referred By: REFERRED SELF Confirmed By:Luis Eduardo Daly
[2021-03-25] MEDS: ROSUVASTATIN CALCIUM 20 MG TAB PO SCH (20:23)
[2021-03-25] MEDS: PRIMIDONE 250 MG TAB PO SCH (20:23)
[2021-03-25] MEDS: MONTELUKAST SODIUM 10 MG TABLET PO SCH (20:24)
[2021-03-25] MEDS: DOCUSATE SODIUM/SENNA 50/8.6MG TAB PO SCH (20:24)
[2021-03-25] MEDS: allopurinoL 300 MG TAB PO SCH (20:24)
[2021-03-25] MEDS: METOPROLOL SUCC 25MG EXT REL TAB PO SCH (20:24)
--- NOTE | 2021-03-25 20:38 | Communication Note ---
Date of Service: March 25, 2021 Notified by nursing of asymptomatic hypoglycemia with BSG 59. Receiving orange juice and peanut butter crackers per protocol. Patient reports a poor appetite recently, therefore likely contributing to hypoglycemia with home use of Lantus. Hold Lantus. Monitor BSG overnight.
[2021-03-25] MEDS ORDERED: INSULIN GLARGINE SOLOSTAR 100 UNITS/ML 3 ML PEN SC SCH (21:00)
[2021-03-26 05:08] LABS: Hematocrit (blood only) 32.3 % (42-52); Hemoglobin 10.3 g/dL (14.0-18.0); Mean Corpuscular Hemoglobin 31.1 pg (25-34); Mean Corpuscular Volume 97.6 fL (80-100); Mean Platelet Volume 10.8 fL (7.4-10.4); Platelet Count 140 K/uL (130-400); RDW Coefficient of Variation 15.1 % (11.5-14.5); RDW Standard Deviation 53.6 fL (36.4-46.3); Red Blood Count 3.31 M/uL (4.7-6.1); White Blood Count 8.18 K/uL (4.8-10.8)
[2021-03-26 05:16] LABS: Mean Corpuscular Hgb Conc 31.9 g/dL (32-36)
[2021-03-26 05:18] LABS: INR 2.3 (0.9-1.1); Prothrombin Time 22.1 Seconds (9.0-12.0)
[2021-03-26 05:27] LABS: BUN Creatinine Ratio 16.1 (10-20); Calcium 8.4 mg/dl (8.5-10.1); Creatinine Clr Calc Pharmacy 68.2 ml/min; Est GFR (African American) 69.1 ml/min; Est GFR (Non-African American) 59.6 ml/min; Potassium 4.3 mmol/L (3.5-5.1)
[2021-03-26] MEDS ORDERED: SODIUM CHLORIDE 0.9% 250 ML IV PRN (05:38)
[2021-03-26] MEDS: INSULIN ASPART 100 UNITS/ML 3 ML PEN SC SCH ×4 (07:00→20:36)
[2021-03-26] MEDS: FERROUS SULFATE 325 MG TAB PO SCH (08:22)
--- NOTE | 2021-03-26 10:03 | Cardiology Progress Note ---
Date of Service March 26, 2021 Assessment & Plan (1) Pre-operative cardiovascular examination, bradycardia: (2) History of pacemaker: (3) Ischemic cardiomyopathy: (4) Coronary artery disease: (5) Chronic kidney disease stage 3: (6) History of pulmonary embolism: (7) Chronic left ventricular systolic heart failure: Plan: Patient is a very complex 75-year-old male with multivessel ischemic heart disease with chronic stable angina, ischemic cardiomyopathy compensated congestive heart failure underlying chronic obstructive lung disease and recent pulmonary embolus January 2021. Patient has an indwelling dual-chamber pacemaker with normal function Patient is referred for evaluation prior to planned hip repair following mechanical fall. There is no signs of unstable angina congestive heart failure or severe valvular disease historically. Patient is at elevated risk due to underlying significant morbidities Anticoagulation will be need to be closely tailored around surgery given pulmonary embolus in January No additional cardiac testing warranted at this time agree with already made plans for holding diuretic and warfarin initially. Discussed in detail indications for surgical repair of hip fracture with patient noted he is at elevated risk for perioperative complications including congestive heart failure and atrial arrhythmias. However significant risks are included in conservative management We will follow as clinical course progresses Admission and Anticipated Discharge Date Admission Date: March 25, 2021 Subjective Pt seen and examined, chart reviewed. States that he's "ok" today. Pain relatively well controlled. Denies cp, sob, palpitations, lightheadedness or dizziness. Review of Systems Review of Systems: All systems reviewed & are unremarkable except as noted in HPI & below Physical Exam Physical Exam: General: Awake, alert and oriented x 3. No acute distress. HEENT: Normocephalic, atraumatic. Pupils equal, round and reactive to light and accommodation. Extraocular muscles are intact. Anicteric sclera. Moist mucous membranes. Neck: No JVD. No bruit. Cardiovascular: Regular. Positive S-4. Normal S-1 and S-2. No S-3. No murmurs or rubs. Pulmonary: Clear to auscultation B/L. No rales, rhonchi or wheezing Abdomen: Bowel sounds x 4, soft. No rebound, guarding or tenderness. No organomegaly. Extremities: No clubbing, cyanosis or edema. +2 pedal pulses bilaterally. Skin: Warm and dry. Results & Data ([facility]) Vital Signs (Past 12 Hours) Vital Signs Temp Pulse Pulse Resp BP BP Pulse Ox 09/10/21 08:20 37.0 C 69 20 110/70 96 03/26/21 07:55 37.1 C 70 18 106/65 96 03/26/21 07:17 37.1 C 70 16 114/64 95 03/26/21 07:10 37.1 C 71 16 114/64 95 03/26/21 07:05 36.9 C 72 16 118/71 97 03/26/21 06:51 106/62 03/26/21 06:50 37 C 69 16 146/62 H 95 03/25/21 22:46 37 C 76 16 115/71 97
[2021-03-26] MEDS: oxyCODONE HCL IR 5 MG TAB (IMMEDIATE RELEASE) PO PRN (13:16)
--- NOTE | 2021-03-26 13:42 | Communication Note ---
Date of Service: March 26, 2021 INR this morning was 2.3 and still too high for surgery. Case canceled and added on for 03/27/2021. Most recent INR was 2.0. Case discussed with Dr. Martinez. Plans are if the INR would still fairly high that he would give him a small dose of vitamin K and recheck it early in the morning. Tentative plan for trochanteric nailing tomorrow if the INR is adequate.
--- NOTE | 2021-03-26 16:14 | Hospitalist Progress Note ---
Date of Service March 26, 2021 Assessment & Plan (1) Hip fracture, left: Plan: Present on admission after a mechanical fall Femur Xray showed possible nondisplaced fracture at the intertrochanteric region of the left hip. CT hip showed Comminuted intertrochanteric fracture of the left femur ortho was consulted Tentative plan for trochanteric nailing tomorrow if the INR is adequate. INR 2 today, discussed with patient about giving Vit K Pt said that he would prefer his INR to drop on its own instead of receiving Vit K Pt understood the risk by holding coumadin and subtherapeutic INR such as reccurent blood clot If INR under 2 tomorrow and surgery postpone, will start on IV heparin drip Cardiology on board for cardiac clearance Pt understood that he is at elevated risk for perioperative complications such as CHF, atrial arrhythmia, PR, blood clot and even No additional cardiac testing warranted at this time and agreed to hold coumadin as per cardiology Will make NPO after midnight (2) History of pulmonary embolism: (3) History of DVT (deep vein thrombosis): Plan: Hx of DVT about 2 years agoi and history of subsegmental pulmonary embolism 01/2021 in the setting of subtherapeutic INR Continue to hold coumadin FFP given in the morning Pt does not want any Vit K to reverse the INR Will need to start on anticoagulant once bleeding stabilizes after the surgery Continue monitor INR (4) PAF (paroxysmal atrial fibrillation): Plan: -Rate controlled on metoprolol, continue Coumadin and aspirin have been on hold (5) Coronary artery disease: Plan: -Appears stable, no reports of chest pain -EKG demonstrates an atrial paced rhythm -Continue beta-isaías and statin, patient takes full dose aspirin, hold preoperatively and resume per the discretion of orthopedics (6) Ischemic cardiomyopathy: (7) Diastolic dysfunction: Plan: Echo 02/03-EF 35 to 40%, grade 2 static diastolic dysfunction, moderate mitral regurgitation, mild tricuspid regurgitation No sign of volume overload Continue to hold lasix due to surgical procedure tomorrow (8) History of pacemaker: Plan: -No acute issues (9) Diabetes mellitus, type 2: Plan: -Hgb A1c 6.1 02/2021 -Hold oral agents, Lantus and NovoLog per protocol while hospitalized (10) Cerebrovascular disease: Plan: -Holding aspirin as above -Continue statin (11) Chronic kidney disease stage 3: Plan: -Baseline creatinine runs in the low-mid 1's (12) DVT prophylaxis: Plan: -SCDs Admission and Anticipated Discharge Date Admission Date: March 25, 2021 Subjective Pt was seen and examined for hip fracture Lying in bed with no acute distress Pt said that his pain his control Denies any chest pain, palpitation, dizziness and SOB Review of Systems Review of Systems: All systems reviewed & are unremarkable except as noted in Subjective Physical Exam Physical Exam: General- No acute distress Head- atraumatic Eyes- PERRL, EOMI, ENT- oropharynx clear Neck- supple, no JVD Lungs- No wheezing Heart- regular rhythm; no murmur Abdomen- normal bowel sounds, soft, nontender Extremities- no calf tenderness, left hip pain Neuro- alert, oriented x 3; PERRL, EOMI; no facial palsy; no dysarthria Skin- warm & dry Results & Data Results & Data ([facility]) Vital Signs (Past 12 Hours) Vital Signs Temp Pulse Pulse Resp BP BP Pulse Ox 03/26/21 15:44 37.1 C 68 18 111/65 96 03/26/21 08:20 37.0 C 69 20 110/70 96 03/26/21 07:55 37.1 C 70 18 106/65 96 03/26/21 07:17 37.1 C 70 16 114/64 95 03/26/21 07:10 37.1 C 71 16 114/64 95 03/26/21 07:05 36.9 C 72 16 118/71 97 03/26/21 06:51 106/62 03/26/21 06:50 37 C 69 16 146/62 H 95
[2021-03-26] MEDS: ROSUVASTATIN CALCIUM 20 MG TAB PO SCH (20:44)
[2021-03-26] MEDS: PRIMIDONE 250 MG TAB PO SCH (20:45)
[2021-03-26] MEDS: METOPROLOL SUCC 25MG EXT REL TAB PO SCH (20:45)
[2021-03-26] MEDS: MONTELUKAST SODIUM 10 MG TABLET PO SCH (20:46)
[2021-03-26] MEDS: allopurinoL 300 MG TAB PO SCH (20:46)
[2021-03-26] MEDS: DOCUSATE SODIUM/SENNA 50/8.6MG TAB PO SCH (20:46)
[2021-03-26 22:29] LABS: INR 1.8 (0.9-1.1); Prothrombin Time 17.7 Seconds (9.0-12.0)
[2021-03-27 07:54] LABS: INR 1.8 (0.9-1.1); Prothrombin Time 17.2 Seconds (9.0-12.0)
[2021-03-27] MEDS: INSULIN ASPART 100 UNITS/ML 3 ML PEN SC SCH ×4 (08:40→21:08)
--- NOTE | 2021-03-27 10:44 | Progress Notes ---
SUBJECTIVE: Ron was seen at the bedside today and has appropriate amount of pain in the hip. Alfonso es any other new complaints. OBJECTIVE: Left hip exam shows pain with log roll of the left hip. His compartments are soft. The left leg is minimally shortened. ASSESSMENT: Left nondisplaced intertrochanteric hip fracture. PLAN: Discussed findings and treatment with him. We discussed risks, benefits, and reasonable outco mes for left intramedullary trochanteric nail. Given that his INR is 1.8 this morning, we will wait until this drifts down and is at an acceptable l evel with safety for surgery. We will tentatively plan for surgical intervention tomorrow with left intertrochanteric hip nail. Job ID: [id number]
[2021-03-27] MEDS ORDERED: Heparin IV Adult Wt-Based Standard *NO* Bolus Protocol IV STA (10:55)
[2021-03-27] MEDS ORDERED: HEPARIN SODIUM/DEXTROSE 25,000 UNITS/500 ML BAG IV SCH (11:30)
[2021-03-27] MEDS ORDERED: INSULIN ASPART 100 UNITS/ML 3 ML PEN SC SCH (12:00)
[2021-03-27 19:03] LABS: Partial Thromboplastin Ratio > 5.3
[2021-03-27 19:11] LABS: Partial Thromboplastin Time > 139.0 Seconds (21.0-31.0)
[2021-03-27] MEDS: allopurinoL 300 MG TAB PO SCH (21:06)
[2021-03-27] MEDS: PRIMIDONE 250 MG TAB PO SCH (21:06)
[2021-03-27] MEDS: MONTELUKAST SODIUM 10 MG TABLET PO SCH (21:07)
[2021-03-27] MEDS: METOPROLOL SUCC 25MG EXT REL TAB PO SCH (21:07)
[2021-03-27] MEDS: ROSUVASTATIN CALCIUM 20 MG TAB PO SCH (21:07)
[2021-03-27] MEDS: DOCUSATE SODIUM/SENNA 50/8.6MG TAB PO SCH (21:08)
[2021-03-27 21:28] LABS: Partial Thromboplastin Ratio 2.8
--- NOTE | 2021-03-27 23:14 | Hospitalist Progress Note ---
Date of Service March 27, 2021 Assessment & Plan (1) Hip fracture, left: Plan: Present on admission after a mechanical fall Femur Xray showed possible nondisplaced fracture at the intertrochanteric region of the left hip. CT hip showed Comminuted intertrochanteric fracture of the left femur ortho was consulted Tentative plan for trochanteric nailing tomorrow if the INR is adequate. INR 2 today, discussed with patient about giving Vit K Pt said that he would prefer his INR to drop on its own instead of receiving Vit K Pt understood the risk by holding coumadin and subtherapeutic INR such as reccurent blood clot INR 1.8 today, will start on IV heparin drip since surgery postpone for tomorrow if INR less than 1.5 Cardiology on board for cardiac clearance Pt understood that he is at elevated risk for perioperative complications such as CHF, atrial arrhythmia, MA, blood clot and even No additional cardiac testing warranted at this time and agreed to hold coumadin as per cardiology Will make NPO after midnight (2) History of pulmonary embolism: (3) History of DVT (deep vein thrombosis): Plan: Hx of DVT about 2 years agoi and history of subsegmental pulmonary embolism 01/2021 in the setting of subtherapeutic INR Continue to hold coumadin FFP given in the morning Pt does not want any Vit K to reverse the INR INR 1.8 today and heparin drip was initiated Continue monitor PT/INR (4) PAF (paroxysmal atrial fibrillation): Plan: -Rate controlled on metoprolol, continue Coumadin and aspirin have been on hold -Heparin drip was started (5) Coronary artery disease: Plan: -Appears stable, no reports of chest pain -EKG demonstrates an atrial paced rhythm -Continue beta-isaías and statin, patient takes full dose aspirin, hold preoperatively and resume per the discretion of orthopedics (6) Ischemic cardiomyopathy: (7) Diastolic dysfunction: Plan: Echo 02/03-EF 35 to 40%, grade 2 static diastolic dysfunction, moderate mitral regurgitation, mild tricuspid regurgitation No sign of volume overload Continue to hold lasix due to surgical procedure tomorrow (8) History of pacemaker: Plan: -No acute issues (9) Diabetes mellitus, type 2: Plan: -Hgb A1c 6.1 02/2021 -Hold oral agents, Lantus and NovoLog per protocol while hospitalized (10) Cerebrovascular disease: Plan: -Holding aspirin as above -Continue statin (11) Chronic kidney disease stage 3: Plan: -Baseline creatinine runs in the low-mid 1's (12) DVT prophylaxis: Plan: -SCDs Admission and Anticipated Discharge Date Admission Date: March 25, 2021 Subjective Pt was seen and examined for hip fracture Lying in bed with no acute distress Pt said that his pain his control Surgery was postpone due to elevate INR and pt does not want to get Vit K Denies any chest pain, palpitation, dizziness and SOB Review of Systems Review of Systems: All systems reviewed & are unremarkable except as noted in Subjective Physical Exam Physical Exam: General- No acute distress Head- atraumatic Eyes- PERRL, EOMI, ENT- oropharynx clear Neck- supple, no JVD Lungs- No wheezing Heart- regular rhythm; no murmur Abdomen- normal bowel sounds, soft, nontender Extremities- no calf tenderness, left hip pain Neuro- alert, oriented x 3; PERRL, EOMI; no facial palsy; no dysarthria Skin- warm & dry Results & Data Results & Data ([facility]) Vital Signs (Past 12 Hours) Vital Signs Temp Pulse Resp BP Pulse Ox 03/27/21 15:38 37.3 C 76 20 122/72 94
[2021-03-28] MEDS: INSULIN ASPART 100 UNITS/ML 3 ML PEN SC SCH ×6 (00:16→23:19)
[2021-03-28 03:59] LABS: Basophils # (auto) 0.03 K/uL (0-0.2); Basophils % (auto) 0.4 %; Eosinophils # (auto) 0.24 K/uL (0-0.5); Eosinophils % (auto) 2.9 %; Hematocrit (blood only) 32.4 % (42-52); Hemoglobin 10.2 g/dL (14.0-18.0); Immature Granulocytes # (auto) 0.02 K/uL (0.00-0.02); Immature Granulocytes % (auto) 0.2 %; Lymphocytes # (auto) 0.81 K/uL (1.2-3.4); Lymphocytes % (auto) 9.7 %; Mean Corpuscular Hemoglobin 30.3 pg (25-34); Mean Corpuscular Hgb Conc 31.5 g/dL (32-36); Mean Corpuscular Volume 96.1 fL (80-100); Mean Platelet Volume 10.4 fL (7.4-10.4); Monocytes # (auto) 0.86 K/uL (0.11-0.59); Monocytes % (auto) 10.3 %; Neutrophils # (auto) 6.35 K/uL (1.4-6.5); Neutrophils % (auto) 76.5 %; Platelet Count 149 K/uL (130-400); RDW Coefficient of Variation 15.2 % (11.5-14.5); RDW Standard Deviation 53.3 fL (36.4-46.3); Red Blood Count 3.37 M/uL (4.7-6.1); White Blood Count 8.31 K/uL (4.8-10.8)
[2021-03-28 04:08] LABS: INR 1.7 (0.9-1.1); Partial Thromboplastin Ratio 1.6; Partial Thromboplastin Time 43.1 Seconds (21.0-31.0); Prothrombin Time 16.5 Seconds (9.0-12.0)
[2021-03-28] MEDS ORDERED: Heparin IV Adult Wt-Based Standard *NO* Bolus Protocol IV SCH (07:47)
--- NOTE | 2021-03-28 09:42 | Communication Note ---
Date of Service: March 28, 2021 Patient was seen by Dr. Christianson this AM. INR is 1.7. He feels that this is still too high for surgery. I discussed this with Dr. Canales this morning. He will plan on talking with the patient about giving a small dose of vitamin K. He had talked to the patient in the recent past about using vitamin K and the risks involved. Patient at that time was refusing vitamin K. He will bridge the subject again with him today. May resume heparin at this time. Unsure of timetable for surgery tomorrow. Patient will likely be an add-on and not done until later in the afternoon. I will check on this with the operating room staff and will check with [facility] for for physician availability.
[2021-03-28] MEDS: FERROUS SULFATE 325 MG TAB PO SCH (09:56)
[2021-03-28] MEDS ORDERED: INCENTIVE SPIROMETER INH SCH (10:00)
[2021-03-28] MEDS: MoRPHine SULFATE 4 MG/ML 1 ML CARP\\VIAL IV PRN ×2 (10:01→15:10)
[2021-03-28] MEDS: HEPARIN SODIUM/DEXTROSE 25,000 UNITS/500 ML BAG IV SCH (10:11)
[2021-03-28 16:52] LABS: Partial Thromboplastin Ratio > 5.3
[2021-03-28 17:08] LABS: Partial Thromboplastin Time > 139.0 Seconds (21.0-31.0)
[2021-03-28 19:00] LABS: Partial Thromboplastin Ratio 5.2
[2021-03-28 19:13] LABS: Partial Thromboplastin Time 135.7 Seconds (21.0-31.0)
[2021-03-28 20:54] LABS: INR 1.6 (0.9-1.1); Partial Thromboplastin Ratio 1.9; Prothrombin Time 15.5 Seconds (9.0-12.0)
[2021-03-28] MEDS: MONTELUKAST SODIUM 10 MG TABLET PO SCH (21:13)
[2021-03-28 21:14] LABS: Partial Thromboplastin Time 48.9 Seconds (21.0-31.0)
[2021-03-28] MEDS: PRIMIDONE 250 MG TAB PO SCH (21:14)
[2021-03-28] MEDS: DOCUSATE SODIUM/SENNA 50/8.6MG TAB PO SCH (21:14)
[2021-03-28] MEDS: ROSUVASTATIN CALCIUM 20 MG TAB PO SCH (21:14)
[2021-03-28] MEDS: allopurinoL 300 MG TAB PO SCH (21:14)
[2021-03-28] MEDS: METOPROLOL SUCC 25MG EXT REL TAB PO SCH (21:14)
[2021-03-28] MEDS ORDERED: PHYTONADIONE 5 MG TAB PO STA (21:36)
--- NOTE | 2021-03-28 21:48 | Hospitalist Progress Note ---
Date of Service March 28, 2021 Assessment & Plan (1) Hip fracture, left: Plan: Present on admission after a mechanical fall Femur Xray showed possible nondisplaced fracture at the intertrochanteric region of the left hip. CT hip showed Comminuted intertrochanteric fracture of the left femur ortho was consulted Tentative plan for trochanteric nailing tomorrow if the INR is adequate. INR 2 today, discussed with patient about giving Vit K Pt said that he would prefer his INR to drop on its own instead of receiving Vit K Pt understood the risk by holding coumadin and subtherapeutic INR such as reccurent blood clot INR 1.7 today, Continue IV heparin drip and will place on hold 6-hour before the procedure Cardiology on board for cardiac clearance Pt understood that he is at elevated risk for perioperative complications such as CHF, atrial arrhythmia, [place], blood clot and even No additional cardiac testing warranted at this time and agreed to hold coumadin as per cardiology Patient agreed to receive low-dose of vitamin K to reverse INR. He understood the risks such as recurrent blood clot Will make NPO after midnight (2) History of pulmonary embolism: (3) History of DVT (deep vein thrombosis): Plan: Hx of DVT about 2 years agoi and history of subsegmental pulmonary embolism 01/2021 in the setting of subtherapeutic INR Continue to hold coumadin FFP given in the morning Initially patient refused to receive vitamin K when I discussed it with him few days ago Today I discusssed again with him that the reason we postpone the surgery was because his INR was not below 1.5, he agreed to receive the vitamin K to reverse the INR INR 1.7 today Continue IV heparin drip and hold heparin drip 6 hours before surgery Continue monitor PT/INR (4) PAF (paroxysmal atrial fibrillation): Plan: Rate controlled on metoprolol, continue Coumadin and aspirin have been on hold Continue Heparin drip (5) Coronary artery disease: Plan: -Appears stable, no reports of chest pain -EKG demonstrates an atrial paced rhythm -Continue beta-isaías and statin, patient takes full dose aspirin, hold preoperatively and resume per the discretion of orthopedics (6) Ischemic cardiomyopathy: (7) Diastolic dysfunction: Plan: Echo 02/03-EF 35 to 40%, grade 2 static diastolic dysfunction, moderate mitral regurgitation, mild tricuspid regurgitation No sign of volume overload Continue to hold lasix due to surgical procedure tomorrow (8) History of pacemaker: Plan: -No acute issues (9) Diabetes mellitus, type 2: Plan: -Hgb A1c 6.1 02/2021 -Hold oral agents, Lantus and NovoLog per protocol while hospitalized (10) Cerebrovascular disease: Plan: -Holding aspirin as above -Continue statin (11) Chronic kidney disease stage 3: Plan: -Baseline creatinine runs in the low-mid 1's (12) DVT prophylaxis: Plan: -SCDs Admission and Anticipated Discharge Date Admission Date: March 25, 2021 Subjective Pt was seen and examined for hip fracture Lying in bed with no acute distress Continue to have pain in his L hip area Surgery was postpone due to elevate INR Today discussed with patient about getting a low dose of vitamin K to bring the INR under the 1.5, patient agreed to get the Vit K Denies any chest pain, palpitation, dizziness and SOB Review of Systems Review of Systems: All systems reviewed & are unremarkable except as noted in Subjective Physical Exam Physical Exam: General- No acute distress Head- atraumatic Eyes- PERRL, EOMI, ENT- oropharynx clear Neck- supple, no JVD Lungs- No wheezing Heart- regular rhythm; no murmur Abdomen- normal bowel sounds, soft, nontender Extremities- no calf tenderness, left hip pain Neuro- alert, oriented x 3; PERRL, EOMI; no facial palsy; no dysarthria Skin- warm & dry Results & Data Results & Data ([facility]) Vital Signs (Past 12 Hours) Vital Signs Temp Pulse Resp BP Pulse Ox 03/28/21 15:15 36.9 C 72 18 109/69 96
[2021-03-29] MEDS ORDERED: Heparin IV Adult Wt-Based Standard *NO* Bolus Protocol ONE (01:18)
[2021-03-29] MEDS ORDERED: HEPARIN SODIUM/DEXTROSE 25,000 UNITS/500 ML BAG IV SCH (01:45)
[2021-03-29 04:26] LABS: Hematocrit (blood only) 33.4 % (42-52); Hemoglobin 10.5 g/dL (14.0-18.0); Mean Corpuscular Hemoglobin 30.6 pg (25-34); Mean Corpuscular Hgb Conc 31.4 g/dL (32-36); Mean Corpuscular Volume 97.4 fL (80-100); Mean Platelet Volume 9.9 fL (7.4-10.4); Platelet Count 160 K/uL (130-400); RDW Standard Deviation 53.1 fL (36.4-46.3); Red Blood Count 3.43 M/uL (4.7-6.1); White Blood Count 10.84 K/uL (4.8-10.8)
[2021-03-29] MEDS ORDERED: Nursing to Pharmacy Communication SCH ×2 (04:30→19:15)
[2021-03-29 04:43] LABS: BUN Creatinine Ratio 24.3 (10-20); Calcium 8.9 mg/dl (8.5-10.1); Creatinine Clr Calc Pharmacy 65.5 ml/min; Est GFR (African American) 65.8 ml/min; Est GFR (Non-African American) 56.8 ml/min; Potassium 4.3 mmol/L (3.5-5.1)
[2021-03-29 04:46] LABS: INR 1.7 (0.9-1.1); Partial Thromboplastin Ratio 3.6; Prothrombin Time 16.3 Seconds (9.0-12.0)
[2021-03-29 05:35] LABS: Partial Thromboplastin Time 93.5 Seconds (21.0-31.0)
[2021-03-29] MEDS: INSULIN ASPART 100 UNITS/ML 3 ML PEN SC SCH ×4 (06:28→22:04)
[2021-03-29] MEDS: HEPARIN SODIUM/DEXTROSE 25,000 UNITS/500 ML BAG IV SCH (06:34)
[2021-03-29] MEDS ORDERED: PHYTONADIONE 2.5 MG in SODIUM CHLORIDE 0.9% 50 ML IV ONE (08:00)
[2021-03-29] MEDS ORDERED: STOP ORDER [HEPARIN DRIP] ONE (08:00)
--- NOTE | 2021-03-29 09:21 | Orthopedic Progress Note ---
Date of Service March 29, 2021 Assessment & Plan Admission and Anticipated Discharge Date Admission Date: March 25, 2021 Subjective Postop day 2 Patient sitting up in bed awake and alert. Right upper extremity elevated on pillows. He feels that his infection is worsening over the ulnar aspect of his forearm. Nursing staff had called me yesterday and discussed some slight increase in erythema. Plans were to continue to watch to see how it responded. Areas of erythema were marked on the borders. He states he is having increasing pain up the forearm that basically stops around the midportion. He feels that the erythema is worsening. Physical Exam Physical Exam: Prevena wound VAC is present. It had to be reinforced secondary to leaks. It is continuing to function. Scant drainage noted in the tubing. Results & Data ([facility]) Vital Signs (Past 12 Hours) Vital Signs Temp Pulse Pulse Resp BP BP Pulse Ox 03/29/21 09:04 37.2 C 78 16 113/65 93 03/29/21 08:45 37.1 C 79 16 115/68 92 03/29/21 08:30 37.2 C 80 18 111/66 94 03/29/21 07:20 36.9 C 79 16 111/67 90 03/29/21 00:26 37.3 C 90 18 120/70 90
--- NOTE | 2021-03-29 09:51 | XRay Report ---
XR chest 1V portable HISTORY: Fall. Left midlung zone density. Follow-up. COMPARISON: Chest 03/25/2021. FINDINGS: The left midlung zone irregular density seen on the prior study has resolved in the interva l. There are patchy right base airspace opacities which have progressed. There are trace bilateral pl eural effusions. The heart remains enlarged. Is left-sided dual-chamber pacemaker. There is mild cent ral pulmonary vascular congestion without overt edema. This has improved in the interval. No pneumoth orax. Old, healed right-sided rib fractures. IMPRESSION: 1. Interval resolution of the left midlung zone airspace opacity. 2. Patchy right basilar densities have progressed. This may represent atelectasis or pneumonia and co uld be secondary to aspiration. 3. Mild central pulmonary vascular congestion and trace bilateral pleural effusions. ACT 112: Negative or not required by law. Electronically signed by: Nik Green M.D. 03/29/2021 9:50 AM
[2021-03-29 12:06] LABS: INR 1.3 (0.9-1.1); Partial Thromboplastin Ratio 1.3; Partial Thromboplastin Time 35.3 Seconds (21.0-31.0); Prothrombin Time 12.7 Seconds (9.0-12.0)
--- NOTE | 2021-03-29 12:13 | Hospitalist Progress Note ---
Date of Service March 29, 2021 Assessment & Plan (1) Hip fracture, left: Plan: Present on admission after a mechanical fall Femur Xray showed possible nondisplaced fracture at the intertrochanteric region of the left hip. CT hip showed Comminuted intertrochanteric fracture of the left femur ortho was consulted Tentative plan for trochanteric nailing tomorrow if the INR is adequate. INR 2 today, discussed with patient about giving Vit K Pt said that he would prefer his INR to drop on its own instead of receiving Vit K Pt understood the risk by holding coumadin and subtherapeutic INR such as reccurent blood clot INR 1.7 today, Continue IV heparin drip and will place on hold 6-hour before the procedure Cardiology on board for cardiac clearance Pt understood that he is at elevated risk for perioperative complications such as CHF, atrial arrhythmia, [place], blood clot and even No additional cardiac testing warranted at this time and agreed to hold coumadin as per cardiology Patient agreed to receive low-dose of vitamin K to reverse INR. He understood the risks such as recurrent blood clot Will make NPO after midnight (2) History of pulmonary embolism: (3) History of DVT (deep vein thrombosis): Plan: Hx of DVT about 2 years agoi and history of subsegmental pulmonary embolism 01/2021 in the setting of subtherapeutic INR Continue to hold coumadin FFP given in the morning Initially patient refused to receive vitamin K when I discussed it with him few days ago Today I discusssed again with him that the reason we postpone the surgery was because his INR was not below 1.5, he agreed to receive the vitamin K to reverse the INR INR 1.7 today Continue IV heparin drip and hold heparin drip 6 hours before surgery Continue monitor PT/INR (4) PAF (paroxysmal atrial fibrillation): Plan: Rate controlled on metoprolol, continue Coumadin and aspirin have been on hold Continue Heparin drip (5) Coronary artery disease: Plan: -Appears stable, no reports of chest pain -EKG demonstrates an atrial paced rhythm -Continue beta-isaías and statin, patient takes full dose aspirin, hold preoperatively and resume per the discretion of orthopedics (6) Ischemic cardiomyopathy: (7) Diastolic dysfunction: Plan: Echo 02/03-EF 35 to 40%, grade 2 static diastolic dysfunction, moderate mitral regurgitation, mild tricuspid regurgitation No sign of volume overload Continue to hold lasix due to surgical procedure tomorrow (8) History of pacemaker: Plan: -No acute issues (9) Diabetes mellitus, type 2: Plan: -Hgb A1c 6.1 02/2021 -Hold oral agents, Lantus and NovoLog per protocol while hospitalized (10) Cerebrovascular disease: Plan: -Holding aspirin as above -Continue statin (11) Chronic kidney disease stage 3: Plan: -Baseline creatinine runs in the low-mid 1's (12) DVT prophylaxis: Plan: -SCDs Admission and Anticipated Discharge Date Admission Date: March 25, 2021 Review of Systems 2 Review of Systems: All systems reviewed & are unremarkable except as noted in Subjective Physical Exam Physical Exam: General- No acute distress Head- atraumatic Eyes- PERRL, EOMI, ENT- oropharynx clear Neck- supple, no JVD Lungs- No wheezing Heart- regular rhythm; no murmur Abdomen- normal bowel sounds, soft, nontender Extremities- no calf tenderness, left hip pain Neuro- alert, oriented x 3; PERRL, EOMI; no facial palsy; no dysarthria Skin- warm & dry Results & Data Results & Data ([facility]) Vital Signs (Past 12 Hours) Vital Signs Temp Pulse Pulse Resp BP BP Pulse Ox 03/29/21 09:04 37.2 C 78 16 113/65 93 03/29/21 08:45 37.1 C 79 16 115/68 92 03/29/21 08:30 37.2 C 80 18 111/66 94 03/29/21 07:20 36.9 C 79 16 111/67 90 03/29/21 00:26 37.3 C 90 18 120/70 90
[2021-03-29] MEDS ORDERED: ONDANSETRON INJ 2 MG/ML 2 ML VIAL ONE (13:39)
[2021-03-29] MEDS ORDERED: LIDOCAINE 2% 2 ML VIAL/AMP(20MG/ML) INFIL ONE (13:39)
[2021-03-29] MEDS ORDERED: PROPOFOL IV EMULSION 10 MG/ML 20 ML VIAL IV ONE (13:39)
[2021-03-29] MEDS ORDERED: DEXAMETHASONE SOD INJ 4 MG/ML VIAL ONE (13:39)
[2021-03-29] MEDS ORDERED: fentaNYL citrate 100 MCG/2 ML VIAL ONE ×2 (13:40→15:50)
[2021-03-29] MEDS ORDERED: MIDAZOLAM HCL 1 MG/ML 2ML VIAL ONE (13:40)
--- NOTE | 2021-03-29 14:55 | History & Physical Bridge Note ---
Date of Service March 29, 2021 History & Physical Bridge Note I have examined the patient, reviewed the History & Physical and in the interval since the performance of the History & Physical I have noted the following changes of clinical significance: no changes noted
[2021-03-29] MEDS ORDERED: fentaNYL citrate 100 MCG/2 ML VIAL IV PRN (14:57)
[2021-03-29] MEDS ORDERED: ePHEDrine sulfate 50 MG/ML AMP IV PRN (14:57)
[2021-03-29] MEDS ORDERED: ONDANSETRON INJ 2 MG/ML 2 ML VIAL IV PRN (14:57)
[2021-03-29] MEDS ORDERED: ATROPINE SULFATE 0.1 MG/ML 10ML SYR IV PRN (14:57)
[2021-03-29] MEDS ORDERED: ceFAZolin 2000MG 2,000 MG/15 ML SYR IV SCH (15:00)
--- NOTE | 2021-03-29 16:30 | Operative Report ---
Post Operative Report Pre & Post Diagnosis Operation Date: 03/26/21 08:20 <No data on this case meets the specified criteria> Operation Date: 03/28/21 07:30 <No data on this case meets the specified criteria> Operation Date: 03/29/21 16:25 Pre-Op Diagnosis: Left intertrochanteric hip fracture Post-Op Diagnosis: Left intertrochanteric hip fracture I identified the patient and participated in the time-out.: Yes Procedure Operation Date: 03/26/21 08:20 <No data on this case meets the specified criteria> Operation Date: 03/28/21 07:30 <No data on this case meets the specified criteria> Operation Date: 03/29/21 16:25 Actual Procedures p Left Trochancteric Femoral Nail internal fixation of left Intertrochanteric Hip Fracture(Left) - Erick Woo MD Surgeon Erick Woo MD Manufactured Buildings Supervisor Talha ESTEVES Estimated Blood Loss 20 Findings Consistent with Post-Op Diagnosis Specimens None Drains None Anesthesia Type General Complications none Disposition Disposition: Recovery Room Indications 75-year-old male sustained a closed left intertrochanteric hip fracture. X-rays and CT scan demonstrate a nondisplaced 2 part intertrochanteric hip fracture with mild comminution. Description of Procedure Patient is taken to the operating room and anesthetized under general anesthesia. he was placed supine on a fracture table. The left leg was placed into boot traction and the well leg was placed into a well-padded leg holding device in flexion and internal rotation. No formal reduction was required as the fracture was lined up well so the leg was placed in longitudinal traction and internal rotation and adduction. He had a large abdominal pannus that had to be taped over to the opposite side of the bed.. An anatomic alignment of the fracture was verified by fluoroscopy in AP and lateral views.. The hip was sterilely prepped and draped in usual fashion using ChloraPrep. Fluoroscopy was used throughout the case to assist in the procedure. A lateral incision was made over the trochanteric area of the left hip. The skin was incised sharply. The subcutaneous fat was divided down to the fascia. The fascia was divided longitudinally and the gluteus medius was split with a Ames elevator enough to identify the tip of the greater trochanter. A guidewire was placed under fluoroscopic guidance and then the drill was used to open up the canal. We chose a Synthes 12 mm / 130 degree angle titanium cannulated trochanteric fixation nail 170 mm length bonita. The insertion device was used to insert the bonita and seated at the appropriate depth and then the second incision was made for the helical blade. The guide was placed and the guidewire was advanced under fluoroscopic guidance into the femoral neck and head. The guidewire placement centrally aligned on AP and lateral views. The reamers were used and it was noted that the patient had very hard solid bone. 11 mm titanium helical blade was impacted into the neck and head fragment. The bone quality was excellent. The proximal locking screw was tightened. Compression device was used to compress the fracture. the guide for the distal locking screw was advanced to the bone and the drill used and the measurement taken. A 5 x 40 mm millimeter locking screw was then placed with good fixation. X-rays were obtained to document reduction AP and lateral views. All wounds were irrigated. The fascia was closed with interrupted [id number] and 1 Vicryl sutures. The subcutaneous tissues were closed with 2-0 Vicryl suture. The skin was closed with francesco and sterile dressings were applied. The patient tolerated the procedure well. My physician licensed investment sales assistant Talha ESTEVES was review assistant throughout the procedure and assisted in patient positioning prepping and draping soft tissue retraction and wound closure and will participate in the postoperative care of the patient. I attest to the content of the Intraoperative Record and any orders documented therein. Any exceptions are noted below.
--- NOTE | 2021-03-29 16:37 | Fluoroscopy Report ---
FL hip LT 2-3V CLINICAL HISTORY: LT TROCH NAIL COMPARISON STUDY: Left hip 03/25/2021. FLUOROSCOPY TIME: 85 seconds. FINDINGS: 4 fluoroscopic spot images of the left hip demonstrates a short proximal intramedullary bonita within the left femur with an interlocking femoral neck pin. The hardware appears intact. This trave rses the left femoral neck fracture. The alignment is near-anatomic. IMPRESSION: Fluoroscopy provided for internal fixation of a left femoral neck fracture. ACT 112: Negative or not required by law. Electronically signed by: Nik Green M.D. 03/29/2021 4:36 PM
--- NOTE | 2021-03-29 17:19 | Anesthesiology Progress Note ---
Date of Service March 29, 2021 Anesthesia Post Procedure Vital Signs Vital Signs: Temp Pulse Pulse Pulse Resp BP BP 03/29/21 17:15 37.5 C 87 20 115/58 L 03/29/21 17:05 90 18 105/53 L 03/29/21 16:55 90 20 126/61 03/29/21 16:45 91 H 18 118/62 03/29/21 16:37 37.1 C 97 H 14 135/67 03/29/21 13:38 37.5 C 90 20 124/80 03/29/21 09:04 37.2 C 78 16 113/65 03/29/21 08:45 37.1 C 79 16 115/68 03/29/21 08:30 37.2 C 80 18 111/66 03/29/21 07:20 36.9 C 79 16 111/67 03/29/21 00:26 37.3 C 90 18 120/70 Pulse Ox 03/29/21 17:15 92 03/29/21 17:05 92 03/29/21 16:55 95 03/29/21 16:45 95 03/29/21 16:37 94 03/29/21 13:38 97 03/29/21 09:04 93 03/29/21 08:45 92 03/29/21 08:30 94 03/29/21 07:20 90 03/29/21 00:26 90 Transfer of Care Handoff Completed per policy Notes Mental Status: alert / awake / arousable Patient Amnestic to Procedure: Yes Nausea / Vomiting: adequately controlled Pain: adequately controlled Airway Patency, RR, SpO2: stable & adequate BP & HR: stable & adequate Hydration State: stable & adequate Anesthetic Complications: no major complications apparent and Pt Satisfied with anesthetic care Notes: The patient is awake and comfortable. His SpO2 is in the low to mid 90s on 3 L NC which is similar to his baseline. His other vital signs are stable. The patient will have continuous pulse oximetry on the floor.
[2021-03-29] MEDS ORDERED: MAGNESIUM HYDROXIDE SUSP 30 ML UDC PO PRN (17:38)
[2021-03-29] MEDS ORDERED: NALOXONE HCL 0.4 MG/1 ML VIAL/CARP IV PRN (17:38)
[2021-03-29] MEDS ORDERED: bisacodyL 10 MG SUPP PR PRN (17:38)
[2021-03-29] MEDS: SODIUM CHLORIDE 0.9% 1000ML 1,000 ML IV SCH (17:50)
[2021-03-29] MEDS: MoRPHine SULFATE 4 MG/ML 1 ML CARP\\VIAL IV PRN (21:52)
[2021-03-29] MEDS: DOCUSATE SODIUM 100 MG CAP PO SCH (21:59)
[2021-03-29] MEDS: METOPROLOL SUCC 25MG EXT REL TAB PO SCH (21:59)
[2021-03-29] MEDS: PRIMIDONE 250 MG TAB PO SCH (22:00)
[2021-03-29] MEDS: DOCUSATE SODIUM/SENNA 50/8.6MG TAB PO SCH (22:00)
[2021-03-29] MEDS: allopurinoL 300 MG TAB PO SCH (22:00)
[2021-03-29] MEDS: MONTELUKAST SODIUM 10 MG TABLET PO SCH (22:00)
[2021-03-29] MEDS: ROSUVASTATIN CALCIUM 20 MG TAB PO SCH (22:00)
[2021-03-29] MEDS: ceFAZolin 2000MG 2,000 MG/15 ML SYR IV SCH (22:01)
[2021-03-30] MEDS: oxyCODONE HCL IR 5 MG TAB (IMMEDIATE RELEASE) PO PRN (00:24)
[2021-03-30] MEDS: SODIUM CHLORIDE 0.9% 1000ML 1,000 ML IV SCH (04:32)
[2021-03-30] MEDS: ceFAZolin 2000MG 2,000 MG/15 ML SYR IV SCH (06:17)
[2021-03-30] MEDS: DOCUSATE SODIUM 100 MG CAP PO SCH ×2 (08:10→21:03)
[2021-03-30] MEDS: FERROUS SULFATE 325 MG TAB PO SCH (08:10)
[2021-03-30] MEDS: MULTIVITAMIN TAB PO SCH (08:10)
--- NOTE | 2021-03-30 08:22 | Orthopedic Progress Note ---
Date of Service March 30, 2021 Assessment & Plan (1) Hip fracture, left: Plan: Postop day 1 status post left TFN PT/OT protocols. Partial weightbearing. DVT prophylaxis. Resume Coumadin. Resume heparin drip between 10 AM and 12 PM today at the discretion of medicine service. Pain management as written. CBC/BMP pending DC planning-patient will likely need rehab prior to returning home. Admission and Anticipated Discharge Date Admission Date: March 25, 2021 Subjective Postop day 1 Patient sitting up in bed awake and alert. No complaints this morning. Pain is controlled. Physical Exam Physical Exam: Dressings are clean, dry, and intact. Minimal swelling. 1 small area of bruising at the proximal portion of the dressing. Calves are soft nontender. Motor function intact. Neuropathy noted. Results & Data ([facility]) Vital Signs (Past 12 Hours) Vital Signs Temp Pulse Resp BP BP Pulse Ox 03/30/21 07:46 36.6 C 76 16 108/67 93 03/30/21 03:21 36.3 C L 83 16 94/57 L 93 03/29/21 22:42 36.6 C 90 16 104/66 94 03/29/21 20:40 36.9 C 90 18 104/63 93
[2021-03-30 08:44] LABS: Hematocrit (blood only) 31.5 % (42-52); Hemoglobin 9.9 g/dL (14.0-18.0); Mean Corpuscular Hemoglobin 30.8 pg (25-34); Mean Corpuscular Hgb Conc 31.4 g/dL (32-36); Mean Corpuscular Volume 98.1 fL (80-100); Mean Platelet Volume 10.7 fL (7.4-10.4); Platelet Count 179 K/uL (130-400); RDW Coefficient of Variation 15.2 % (11.5-14.5); RDW Standard Deviation 54.9 fL (36.4-46.3); Red Blood Count 3.21 M/uL (4.7-6.1); White Blood Count 8.89 K/uL (4.8-10.8)
[2021-03-30] MEDS: INSULIN ASPART 100 UNITS/ML 3 ML PEN SC SCH ×4 (09:05→21:02)
[2021-03-30 09:22] LABS: BUN Creatinine Ratio 22.6 (10-20); Calcium 8.7 mg/dl (8.5-10.1); Creatinine Clr Calc Pharmacy 51.5 ml/min; Est GFR (African American) 49.2 ml/min; Est GFR (Non-African American) 42.4 ml/min
[2021-03-30 11:46] LABS: Basophils # (auto) 0.02 K/uL (0-0.2); Basophils % (auto) 0.2 %; Eosinophils % (auto) 2.2 %; Hematocrit (blood only) 30.9 % (42-52); Hemoglobin 9.6 g/dL (14.0-18.0); Immature Granulocytes # (auto) 0.02 K/uL (0.00-0.02); Immature Granulocytes % (auto) 0.2 %; Lymphocytes # (auto) 0.58 K/uL (1.2-3.4); Lymphocytes % (auto) 6.2 %; Mean Corpuscular Hemoglobin 30.6 pg (25-34); Mean Corpuscular Volume 98.4 fL (80-100); Monocytes % (auto) 9.7 %; Neutrophils # (auto) 7.58 K/uL (1.4-6.5); Neutrophils % (auto) 81.5 %; Platelet Count 168 K/uL (130-400); RDW Coefficient of Variation 15.4 % (11.5-14.5); RDW Standard Deviation 55.4 fL (36.4-46.3); Red Blood Count 3.14 M/uL (4.7-6.1)
[2021-03-30 11:48] LABS: Mean Corpuscular Hgb Conc 31.1 g/dL (32-36)
[2021-03-30] MEDS ORDERED: Heparin IV Adult Wt-Based Standard *NO* Bolus Protocol IV SCH (11:59)
[2021-03-30 12:00] LABS: Partial Thromboplastin Ratio 1.3; Partial Thromboplastin Time 33.9 Seconds (21.0-31.0); Prothrombin Time 10.4 Seconds (9.0-12.0)
[2021-03-30] MEDS: HEPARIN SODIUM/DEXTROSE 25,000 UNITS/500 ML BAG IV SCH (12:00)
[2021-03-30] MEDS: MoRPHine SULFATE 4 MG/ML 1 ML CARP\\VIAL IV PRN ×2 (12:06→17:44)
--- NOTE | 2021-03-30 14:24 | Cardiology Progress Note ---
Date of Service March 30, 2021 Assessment & Plan (1) Pre-operative cardiovascular examination, bradycardia: (2) History of pacemaker: (3) Ischemic cardiomyopathy: (4) Coronary artery disease: (5) Chronic kidney disease stage 3: (6) History of pulmonary embolism: (7) Chronic left ventricular systolic heart failure: Plan: Patient is a very complex 75-year-old male with multivessel ischemic heart disease with chronic stable angina, ischemic cardiomyopathy compensated congestive heart failure underlying chronic obstructive lung disease and recent pulmonary embolus January 2021. Patient has an indwelling dual-chamber pacemaker with normal function Patient is referred for evaluation prior to planned hip repair following mechanical fall. There is no signs of unstable angina congestive heart failure or severe valvular disease historically. Patient is at elevated risk due to underlying significant morbidities Anticoagulation will be need to be closely tailored around surgery given pulmonary embolus in January No additional cardiac testing warranted at this time agree with already made plans for holding diuretic and warfarin initially. Discussed in detail indications for surgical repair of hip fracture with patient noted he is at elevated risk for perioperative complications including congestive heart failure and atrial arrhythmias. However significant risks are included in conservative management Patient remained medically stabilized postoperatively. Continue current medical regimen. Admission and Anticipated Discharge Date Admission Date: March 25, 2021 Subjective Patient seen and examined, chart reviewed. States he is feeling better now postoperatively. Currently working with physical therapy. Denies cardiac complaints of chest pain, shortness of breath, palpitations, lightheadedness, dizziness or syncope. Review of Systems Review of Systems: All systems reviewed & are unremarkable except as noted in HPI & below Physical Exam Physical Exam: General: Awake, alert and oriented x 3. No acute distress. HEENT: Normocephalic, atraumatic. Pupils equal, round and reactive to light and accommodation. Extraocular muscles are intact. Anicteric sclera. Moist mucous membranes. Neck: No JVD. No bruit. Cardiovascular: Regular. Positive S-4. Normal S-1 and S-2. No S-3. No murmurs or rubs. Pulmonary: Clear to auscultation B/L. No rales, rhonchi or wheezing Abdomen: Bowel sounds x 4, soft. No rebound, guarding or tenderness. No organomegaly. Extremities: No clubbing, cyanosis or edema. +2 pedal pulses bilaterally. Skin: Warm and dry. Results & Data ([facility]) Vital Signs (Past 12 Hours) Vital Signs Temp Pulse Resp BP Pulse Ox 03/30/21 12:07 36.8 C 86 16 108/64 90 03/30/21 07:46 36.6 C 76 16 108/67 93 03/30/21 03:21 36.3 C L 83 16 94/57 L 93
[2021-03-30] MEDS: WARFARIN SOD 6 MG TAB PO SCH (16:29)
[2021-03-30 18:32] LABS: Partial Thromboplastin Ratio 3.8
[2021-03-30 18:35] LABS: Partial Thromboplastin Time 99.2 Seconds (21.0-31.0)
--- NOTE | 2021-03-30 19:14 | Hospitalist Progress Note ---
Date of Service March 30, 2021 Assessment & Plan (1) Hip fracture, left: Plan: Present on admission after a mechanical fall Femur Xray showed possible nondisplaced fracture at the intertrochanteric region of the left hip. CT hip showed Comminuted intertrochanteric fracture of the left femur ortho was consulted Tentative plan for trochanteric nailing tomorrow if the INR is adequate. INR 2 today, discussed with patient about giving Vit K Pt said that he would prefer his INR to drop on its own instead of receiving Vit K Pt understood the risk by holding coumadin and subtherapeutic INR such as reccurent blood clot INR 1.7 today, Continue IV heparin drip and will place on hold 6-hour before the procedure Cardiology on board for cardiac clearance Pt understood that he is at elevated risk for perioperative complications such as CHF, atrial arrhythmia, FL, blood clot and even No additional cardiac testing warranted at this time and agreed to hold coumadin as per cardiology Patient agreed to receive low-dose of vitamin K to reverse INR. He understood the risks such as recurrent blood clot Will make NPO after midnight 03/30/21 S/P Left Trochancteric Femoral Nail internal fixation of left Intertrochanteric Hip Fracture(Left) performed by Dr. Woo No postop complication Continue pain control Incentive spirometry PT/ OT eval Fall precaution (2) History of pulmonary embolism: (3) History of DVT (deep vein thrombosis): Plan: Hx of DVT about 2 years agoi and history of subsegmental pulmonary embolism 01/2021 in the setting of subtherapeutic INR Continue to hold coumadin FFP given in the morning Initially patient refused to receive vitamin K when I discussed it with him few days ago Today I discusssed again with him that the reason we postpone the surgery was because his INR was not below 1.5, he agreed to receive the vitamin K to reverse the INR INR 1 today Case discussed with Ortho and okay to resume heparin drip and Coumadin today Continue monitor PT/INR (4) PAF (paroxysmal atrial fibrillation): Plan: Rate controlled on metoprolol, continue Coumadin and aspirin have been on hold Continue Heparin drip (5) Coronary artery disease: Plan: -Appears stable, no reports of chest pain -EKG demonstrates an atrial paced rhythm -Continue beta-isaías and statin, patient takes full dose aspirin, hold preoperatively and resume per the discretion of orthopedics (6) Ischemic cardiomyopathy: (7) Diastolic dysfunction: Plan: Echo 02/03-EF 35 to 40%, grade 2 static diastolic dysfunction, moderate mitral regurgitation, mild tricuspid regurgitation No sign of volume overload Will resume Lasix (8) History of pacemaker: Plan: -No acute issues (9) Diabetes mellitus, type 2: Plan: -Hgb A1c 6.1 02/2021 -Hold oral agents, Lantus and NovoLog per protocol while hospitalized (10) Cerebrovascular disease: Plan: -Holding aspirin as above -Continue statin (11) Chronic kidney disease stage 3: Plan: -Baseline creatinine runs in the low-mid 1's (12) DVT prophylaxis: Plan: -SCDs Admission and Anticipated Discharge Date Admission Date: March 25, 2021 Subjective Patient was seen and examined for postop left hip Lying in bed with no acute respiratory distress Patient said that pain is controlled Denies any chest pain, palpitation, dizziness, shortness of breath. Review of Systems Review of Systems: All systems reviewed & are unremarkable except as noted in Subjective Physical Exam Physical Exam: General- No acute distress Head- atraumatic Eyes- PERRL, EOMI, ENT- oropharynx clear Neck- supple, no JVD Lungs- +coarse breath sounds Heart- regular rhythm; no murmur Abdomen- normal bowel sounds, soft, nontender Extremities- no calf tenderness, left hip pain Neuro- alert, oriented x 3; PERRL, EOMI; no facial palsy; no dysarthria Skin- warm & dry Results & Data Results & Data ([facility]) Vital Signs (Past 12 Hours) Vital Signs Temp Pulse Resp BP Pulse Ox 03/30/21 15:36 36.6 C 84 16 107/63 90 03/30/21 12:07 36.8 C 86 16 108/64 90 03/30/21 07:46 36.6 C 76 16 108/67 93
[2021-03-30] MEDS: allopurinoL 300 MG TAB PO SCH (21:03)
[2021-03-30] MEDS: DOCUSATE SODIUM/SENNA 50/8.6MG TAB PO SCH (21:03)
[2021-03-30] MEDS: MONTELUKAST SODIUM 10 MG TABLET PO SCH (21:04)
[2021-03-30] MEDS: ROSUVASTATIN CALCIUM 20 MG TAB PO SCH (21:04)
[2021-03-30] MEDS: PRIMIDONE 250 MG TAB PO SCH (21:04)
[2021-03-30] MEDS: METOPROLOL SUCC 25MG EXT REL TAB PO SCH (21:20)
[2021-03-30 22:10] LABS: Basophils # (auto) 0.02 K/uL (0-0.2); Basophils % (auto) 0.2 %; Eosinophils # (auto) 0.26 K/uL (0-0.5); Eosinophils % (auto) 3.1 %; Hematocrit (blood only) 30.6 % (42-52); Hemoglobin 9.6 g/dL (14.0-18.0); Immature Granulocytes # (auto) 0.02 K/uL (0.00-0.02); Immature Granulocytes % (auto) 0.2 %; Lymphocytes # (auto) 0.83 K/uL (1.2-3.4); Mean Corpuscular Hemoglobin 30.7 pg (25-34); Mean Corpuscular Hgb Conc 31.4 g/dL (32-36); Mean Corpuscular Volume 97.8 fL (80-100); Mean Platelet Volume 10.2 fL (7.4-10.4); Monocytes # (auto) 0.73 K/uL (0.11-0.59); Monocytes % (auto) 8.8 %; Neutrophils # (auto) 6.43 K/uL (1.4-6.5); Neutrophils % (auto) 77.7 %; Platelet Count 180 K/uL (130-400); RDW Coefficient of Variation 15.4 % (11.5-14.5); RDW Standard Deviation 54.1 fL (36.4-46.3); Red Blood Count 3.13 M/uL (4.7-6.1); White Blood Count 8.29 K/uL (4.8-10.8)
[2021-03-30 22:15] LABS: BUN Creatinine Ratio 23.6 (10-20); Calcium 8.9 mg/dl (8.5-10.1); Creatinine Clr Calc Pharmacy 48.7 ml/min; Est GFR (Non-African American) 39.7 ml/min; Magnesium 2.3 mg/dl (1.8-2.4); Potassium 3.7 mmol/L (3.5-5.1)
[2021-03-30] MEDS ORDERED: NALOXONE HCL 0.4 MG/1 ML VIAL/CARP IV STA (23:13)
[2021-03-30] MEDS ORDERED: methylPREDNISolone 40 MG in SYRINGE 0 ML IV STA (23:14)
--- NOTE | 2021-03-30 23:23 | Communication Note ---
Date of Service: March 30, 202103/30 910PM Made aware by RN of SBP 80s, patient with a pulse of 90. Patient comfortable as per RN but drowsy. CXR as per my interpretation cardiomegaly, congestion, atelectasis, pleural effusion serum crea 1.68 from 1.59 in a.m. AP Hypotension, worsening ARF Hypoxemic respiratory failure, pulmonary congestion, history cardiomyopathy Check UA IV albumin (preferred over crystalloid given pulmonary congestion) Hold nighttime Toprol antihypertensive meds for now Follow ABG Hold narcotics for sedation confusion 10 PM Made aware of inadvertent shearing off IV catheter on attempted ultrasound- guided IV site insertion on the right upper extremity by IV team. Plain x-ray right humerus requested. 1115 PM Code nas called. Patient pulse went up to 1 15-1 35, O2 sats dropped to 80s on 15 L. Patient with decreased responsiveness and diaphoresis. PPE : Decreased responsiveness, staring blankly into space, miotic pupils Decreased breath sounds, expiratory wheezes Tachycardic, irregular AP Encephalopathy secondary to worsening hypoxemic respiratory failure ? Opioid intoxication Rule out intracranial pathology given ongoing IV heparin drip for history of PE/DVT Rule out aspiration/HCAP PCU transfer for closer monitoring Narcan 1 dose Hold morphine and oxycodone for now Hold IV heparin for now Supplemental O2 Follow ABG, may need BiPAP if respiratory acidosis found given history COPD Solu-Medrol 1 dose for bronchospasm (px averse to neb tx as per records) CT head RE: encephalopathy, ongoing anticoagulation CT chest Re: Hypoxemia CT RUE: Possible IV catheter fragment, RUE (plain x-ray not yet done at time of code purple) 03/31 1245AM Patient reevaluated at PCU. Patient more awake but still lethargic. Denies chest pain or unusual cough symptoms. Little short of breath. CT head initial read No acute intracranial pathology CT chest initial read: An oblong, partiallycalcified nodule in the right upper lobe is stable. There are changes of pulmonary fibrosis and cystic bronchiectasis in both lower lobes. There is however a superimposed increased lung densityand the lung bases compared with the prior studyof 2020. This likelyrepresents acute infiltration. Verysmall right pleural effusion. No evidence of pneumothorax. Implanted cardiac pacer. Extensive calcification of the coronaryarteries. No significant pericardial effusion or thoracic lymphadenopathy. Multiple old right rib fractures CT right upper extremity initial read: No acute or focal abnormalities noted of the bones. \There is a 3 cmsegment of catheter in the subcutaneous tissues along the medial aspect of the lower armjust above the antecubital fossa. This does not appear to extend to the skin surface. No other foreign body. AP Retained IV catheter fragment, RUE Request orthopedics in a.m. to evaluate retained IV catheter fragment. Hold patient's Coumadin in anticipation of procedural intervention. Continue patient's IV heparin interim for thromboembolic prophylaxis. Will request AM provider to discuss incident and plan of care with patient when more awake.
[2021-03-30 23:52] LABS: Base Excess ABG 0.2 mEq/L (-9-1.8); HCO3 ABG 25 mmol/L (19-24); Oxygen Saturation ABG 98.2 % (90-95); PCO2 ABG 42 mmHg (35-46); PO2 ABG 112 mmHg (80-95)
[2021-03-31] LABS: Allen Test Pos (Pos)
[2021-03-31 00:06] LABS: Appearance Urine Cloudy (Clear); Bilirubin Urine Negative (Negative); Blood Urine 3+ (Negative); Color Urine Dark Yellow; Epithelial Cell Urine Auto >30 /lpf (0-5); Glucose Urine UA 3+ (Negative); Ketones Urine Trace (Negative); Leukocyte Esterase Urine Negative (Negative); Nitrite Urine Negative (Negative); Protein Urine 1+ (Negative); RBC Urine Automated 0-4 /hpf (0-4); Specific Gravity Urine 1.023 (1.000-1.030); Urobilinogen Urine Negative (Negative)
[2021-03-31] MEDS: ALBUMIN 25% 12.5 GM/50 ML VIAL IV SCH ×4 (00:14→06:46)
[2021-03-31] MEDS ORDERED: POTASSIUM CHLORIDE PWD 20 MEQ PACK PO STA (00:40)
[2021-03-31] MEDS ORDERED: traMADol HCL 50 MG TABLET PO PRN (01:30)
[2021-03-31 01:38] LABS: Bacteria Urine Automated 2+ (Negative); Cast Urine Automated 0 /lpf (0-5)
[2021-03-31 01:39] LABS: Amorphous Sediment Urine Present (None Prsent)
[2021-03-31 02:07] LABS: Partial Thromboplastin Ratio 1.4; Partial Thromboplastin Time 37.4 Seconds (21.0-31.0)
[2021-03-31] MEDS ORDERED: PROMETHAZINE HCL 12.5 MG in SODIUM CHLORIDE 0.9% 50 ML IV PRN (02:13)
[2021-03-31] MEDS ORDERED: DIGOXIN 250 MCG in SYRINGE 9 ML IV STA ×2 (02:27→05:38)
[2021-03-31] MEDS ORDERED: HEPARIN IV BOLUS 4,000 UNITS in SYRINGE 0 ML IV ONE (02:45)
[2021-03-31] MEDS: HEPARIN SODIUM/DEXTROSE 25,000 UNITS/500 ML BAG IV SCH ×2 (05:51→08:49)
--- NOTE | 2021-03-31 07:12 | CT Scan Report ---
CT OF THE HEAD WITHOUT CONTRAST CLINICAL HISTORY: Altered mental status. COMPARISON STUDY: Head CT March 25, 2021 and January 25, 2021. TECHNIQUE: Helical axial images of the head were obtained without IV contrast. Automated exposure con trol was utilized for the study. A dose lowering technique was utilized adhering to the principles o f ALARA. FINDINGS: No acute intracranial hemorrhage, midline shift or mass effect is present. White matter hyp odensities favor small vessel disease. The ventricular system is unremarkable. The basal cisterns are patent. No extra-axial collections are present. There are no findings to suggest acute dural sinus t hrombosis or acute territorial infarct. No significant calvarial abnormalities are present. Postopera tive findings within the sinuses are noted. There are bilateral maxillary sinus air-fluid levels with right maxillary sinus mucosal thickening. Right maxillary sinus mucosal thickening is increased sinc e prior CT while left maxillary sinus mucosal thickening has improved. There is significant mucosal t hickening of the left sphenoid sinus, slightly decreased. There is mucosal thickening of the ethmoid sinuses. IMPRESSION: 1. No acute intracranial findings. 2. Paranasal sinus disease, as described above. ACT 112: Negative or not required by law. Electronically signed by: Supa Bassett M.D. 03/31/2021 7:10 AM
--- NOTE | 2021-03-31 07:29 | XRay Report ---
XR chest 1V portable INDICATION: MN ^low o2 . TECHNIQUE: Single frontal radiograph of the chest was obtained. Comparison: Comparison is made to Chest 1 view 03/29/2021 FINDINGS: No lines and tubes are seen. Cardiomegaly is noted. Airspace opacities are seen in the bilateral lowe r lungs, including some linear opacities may represent atelectasis. No evidence of pneumothorax. Laye ring effusions cannot be excluded. IMPRESSION: Bilateral lower lung airspace disease likely represent atelectasis with or without superimposed aspir ation, pneumonia, and/or effusion. ACT 112: Negative or not required by law. Electronically signed by: Oleg Fitch M.D. 03/31/2021 7:27 AM
[2021-03-31 08:08] LABS: Partial Thromboplastin Ratio 4.7
[2021-03-31] MEDS: MULTIVITAMIN TAB PO SCH (08:13)
[2021-03-31] MEDS: DOCUSATE SODIUM 100 MG CAP PO SCH ×2 (08:13→20:53)
[2021-03-31 08:16] LABS: Partial Thromboplastin Time 124.9 Seconds (21.0-31.0)
[2021-03-31] MEDS: INSULIN ASPART 100 UNITS/ML 3 ML PEN SC SCH ×4 (08:19→20:56)
--- NOTE | 2021-03-31 08:50 | CT Scan Report ---
CT chest diagnostic wo con INDICATION: MN ^low o2. TECHNIQUE: Multidetector row helical CT of the chest was performed. Coronal and sagittal reformations were obtained. Automated dose lowering techniques and/or adjustment according to patient size were u tilized for this exam. Comparison: Comparison is made to CT chest 01/18/2021 FINDINGS: Lungs and pleura: Partially calcified 12 mm nodule in the right upper lobe is unchanged. There are bi basilar findings of atelectasis, bronchiectasis, and groundglass and consolidative opacities. These f indings are approximately stable from prior exam although possibly worsened in the right lower lobe. Multiple pleural-based nodules measuring up to 6 mm in left upper lobe (series 4 image 141) are uncha nged from prior exam. Small bilateral pleural effusions are seen. Heart and pericardium: Heart size is normal. No pericardial effusion. Vessels: Moderate atherosclerotic changes in the aorta and coronary arteries. Mediastinum and betito: Multiple prominent lymph nodes are seen measuring up to 1 cm in short axis. Rosalee luation for hilar lymphadenopathy is limited by lack of intravenous contrast. Chest wall and lower neck: Gynecomastia is noted bilaterally. Abdomen: Unremarkable. Bones: Old healed rib fractures are seen on the right. IMPRESSION: 1. No evidence of acute abnormality. Redemonstration of chronic bilateral bronchiectasis and consoli dative/groundglass opacities. These findings are stable to minimally worsened from prior exam. 2. Interval stability of previously noted pulmonary nodules. 3. Small bilateral pleural effusions. ACT 112: Negative or not required by law. Electronically signed by: Oleg Fitch M.D. 03/31/2021 8:48 AM
--- NOTE | 2021-03-31 09:00 | CT Scan Report ---
CT humerus RT wo con CT DOSE: 1162.71 mGy.cm CLINICAL HISTORY: fb RUE TECHNIQUE: A dose lowering technique was utilized adhering to the principles of ALARA. COMPARISON STUDY: None. FINDINGS: No acute fracture or dislocation seen. Degenerative changes of the right shoulder is demonstrated. Healed fracture deformities of the right lateral rib cage are seen. Consolidative opacities are seen within visualized portion of the right lung parenchyma. Extensive vascular calcifications are demonstrated. There is linear, 2.9 cm density, possibly segment of the catheter, within subcutaneous tissue along t he medial aspect of the lower arm, just above antecubital fossa. There is no extension to the skin jacobo rface and mild surrounding soft tissue stranding. IMPRESSION: Linear density within subcutaneous tissue of the right upper extremity, just above the antecubital fo ssa as detailed above. No other foreign bodies are seen. Consolidative opacities within visualized portion of the right lung. Atherosclerosis. Extensive vascular calcifications. No acute fracture or dislocation. The rest of findings as above. ACT 112: Negative or not required by law. The above report was generated using voice recognition software. It may contain grammatical, syntax o r spelling errors. Electronically signed by: Rose Sebastian DO 03/31/2021 8:58 AM
[2021-03-31 11:18] LABS: Hematocrit (blood only) 28.2 % (42-52); Hemoglobin 8.8 g/dL (14.0-18.0); Mean Corpuscular Hemoglobin 30.2 pg (25-34); Mean Corpuscular Hgb Conc 31.2 g/dL (32-36); Mean Corpuscular Volume 96.9 fL (80-100); Mean Platelet Volume 11.2 fL (7.4-10.4); Platelet Count 163 K/uL (130-400); RDW Coefficient of Variation 15.4 % (11.5-14.5); RDW Standard Deviation 54.5 fL (36.4-46.3); Red Blood Count 2.91 M/uL (4.7-6.1); White Blood Count 8.46 K/uL (4.8-10.8)
[2021-03-31 11:40] LABS: BUN Creatinine Ratio 25.1 (10-20); Creatinine Clr Calc Pharmacy 47.6 ml/min; Est GFR (African American) 44.7 ml/min; Est GFR (Non-African American) 38.6 ml/min; Potassium 4.7 mmol/L (3.5-5.1)
--- NOTE | 2021-03-31 13:49 | Orthopedic Progress Note ---
Date of Service March 31, 2021 Assessment & Plan (1) Hip fracture, left: Plan: Postop day 2 status post left TFN PT/OT protocols. Partial weightbearing. DVT prophylaxis. Coumadin with heparin bridging. Pain management as written. DC planning-patient will likely need rehab prior to returning home. Orthopedics will sign off at this time. Instructions placed in the DC section. Please call with any questions. Admission and Anticipated Discharge Date Admission Date: March 25, 2021 Subjective Postop day 2 Patient transferred down to PCU last night. Currently sitting up in bed awake and alert. Getting ready to start his physical therapy session. Patient states that he does have some hip pain with getting in and out of bed but it is stable at rest. No other complaints currently. Physical Exam Physical Exam: Dressings are clean, dry, and intact. Calves are soft nontender. Neurovascular intact. Toes are mobile. He has no erythema around the hip wound and minimal swelling. Results & Data ([facility]) Vital Signs (Past 12 Hours) Vital Signs Temp Pulse Pulse Resp BP Pulse Ox 03/31/21 11:37 36.5 C 88 14 116/71 98 03/31/21 09:04 94 H 03/31/21 06:51 36.7 C 100 H 18 120/74 97 03/31/21 05:50 112 H 03/31/21 04:17 36.4 C L 112 H 18 105/68 96 03/31/21 02:52 130 H 03/31/21 02:07 130 H Laboratory Results 03/31/21 03/31/21 03/31/21 Range/Units 11:04 09:53 09:53 WBC 8.46 (4.8-10.8) K/uL RBC 2.91 L (4.7-6.1) M/uL Hgb 8.8 L (14.0-18.0) g/dL Hct 28.2 L (42-52) % MCV 96.9 (80-100) fL MCH 30.2 (25-34) pg MCHC 31.2 L (32-36) g/dL RDW Std Deviation 54.5 H (36.4-46.3) fL RDW Coeff of Lizet 15.4 H (11.5-14.5) % Plt Count 163 (130-400) K/uL MPV 11.2 H (7.4-10.4) fL Immature Gran % (Auto) % Neut % (Auto) % Lymph % (Auto) % [place] % (Auto) % Eos % (Auto) % Baso % (Auto) % Neut # (Auto) (1.4-6.5) K/uL Lymph # (Auto) (1.2-3.4) K/uL [place] # (Auto) (0.11-0.59) K/uL Eos # (Auto) (0-0.5) K/uL Baso # (Auto) (0-0.2) K/uL Immature Gran # (Auto) (0.00-0.02) K/uL APTT (21.0-31.0) Seconds PTT Ratio ABG pH (7.35-7.45) ABG pCO2 (35-46) mmHg ABG pO2 (80-95) mmHg ABG HCO3 (19-24) mmol/L ABG O2 Saturation (90-95) % ABG Base Excess (-9-1.8) mEq/L [place] Test (Pos) Oxygen Given Sodium 133 L (136-145) mmol/L Potassium 4.7 D (3.5-5.1) mmol/L Chloride 99 (98-107) mmol/L Carbon Dioxide 28 (21-32) mmol/L Anion Gap 6.0 (3-11) BUN 43 H (7-18) mg/dl Creatinine 1.72 H (0.6-1.4) mg/dl Est Cr Clr Drug Dosing 47.6 ml/min Est GFR ( Amer) 44.7 ml/min Est GFR (Non-Af Amer) 38.6 ml/min BUN/Creatinine Ratio 25.1 H (10-20) Glucose 242 H (70-99) mg/dl POC Glucose 226 H (70-99) mg/dl Lactate (0.4-2.0) mmol/L Calcium 9.0 (8.5-10.1) mg/dl Magnesium (1.8-2.4) mg/dl Ammonia (11-32) umol/L Urine Color Urine Appearance (Clear) Urine pH (4.5-7.5) Ur Specific [place] (1.000-1.030) Urine Protein (Negative) Urine Glucose (UA) (Negative) Urine Ketones (Negative) Urine Blood (Negative) Urine Nitrite (Negative) Urine Bilirubin (Negative) Urine Urobilinogen (Negative) Ur Leukocyte Esterase (Negative) Urine WBC (Auto) (0-5) /hpf Urine RBC (Auto) (0-4) /hpf U Hyaline Cast (Auto) (0-5) /lpf U Epithel Cells (Auto) (0-5) /lpf Urine Bacteria (Auto) (Negative) Amorphous Sediment (None Prsent) Urine Yeast 03/31/21 03/31/21 03/31/21 Range/Units 07:33 07:16 04:22 WBC (4.8-10.8) K/uL RBC (4.7-6.1) M/uL Hgb (14.0-18.0) g/dL Hct (42-52) % MCV (80-100) fL MCH (25-34) pg MCHC (32-36) g/dL RDW Std Deviation (36.4-46.3) fL RDW Coeff of Lizet (11.5-14.5) % Plt Count (130-400) K/uL MPV (7.4-10.4) fL Immature Gran % (Auto) % Neut % (Auto) % Lymph % (Auto) % [place] % (Auto) % Eos % (Auto) % Baso % (Auto) % Neut # (Auto) (1.4-6.5) K/uL Lymph # (Auto) (1.2-3.4) K/uL [place] # (Auto) (0.11-0.59) K/uL Eos # (Auto) (0-0.5) K/uL Baso # (Auto) (0-0.2) K/uL Immature Gran # (Auto) (0.00-0.02) K/uL APTT 124.9 H* (21.0-31.0) Seconds PTT Ratio 4.7 ABG pH (7.35-7.45) ABG pCO2 (35-46) mmHg ABG pO2 (80-95) mmHg ABG HCO3 (19-24) mmol/L ABG O2 Saturation (90-95) % ABG Base Excess (-9-1.8) mEq/L [place] Test (Pos) Oxygen Given Sodium (136-145) mmol/L Potassium (3.5-5.1) mmol/L Chloride (98-107) mmol/L Carbon Dioxide (21-32) mmol/L Anion Gap (3-11) BUN (7-18) mg/dl Creatinine (0.6-1.4) mg/dl Est Cr Clr Drug Dosing ml/min Est GFR ( Amer) ml/min Est GFR (Non-Af Amer) ml/min BUN/Creatinine Ratio (10-20) Glucose (70-99) mg/dl POC Glucose 237 H 201 H (70-99) mg/dl Lactate (0.4-2.0) mmol/L Calcium (8.5-10.1) mg/dl Magnesium (1.8-2.4) mg/dl Ammonia (11-32) umol/L Urine Color Urine Appearance (Clear) Urine pH (4.5-7.5) Ur Specific [place] (1.000-1.030) Urine Protein (Negative) Urine Glucose (UA) (Negative) Urine Ketones (Negative) Urine Blood (Negative) Urine Nitrite (Negative) Urine Bilirubin (Negative) Urine Urobilinogen (Negative) Ur Leukocyte Esterase (Negative) Urine WBC (Auto) (0-5) /hpf Urine RBC (Auto) (0-4) /hpf U Hyaline Cast (Auto) (0-5) /lpf U Epithel Cells (Auto) (0-5) /lpf Urine Bacteria (Auto) (Negative) Amorphous Sediment (None Prsent) Urine Yeast 03/31/21 03/30/21 03/30/21 Range/Units 01:41 23:33 23:26 WBC (4.8-10.8) K/uL RBC (4.7-6.1) M/uL Hgb (14.0-18.0) g/dL Hct (42-52) % MCV (80-100) fL MCH (25-34) pg MCHC (32-36) g/dL RDW Std Deviation (36.4-46.3) fL RDW Coeff of Lizet (11.5-14.5) % Plt Count (130-400) K/uL MPV (7.4-10.4) fL Immature Gran % (Auto) % Neut % (Auto) % Lymph % (Auto) % [place] % (Auto) % Eos % (Auto) % Baso % (Auto) % Neut # (Auto) (1.4-6.5) K/uL Lymph # (Auto) (1.2-3.4) K/uL [place] # (Auto) (0.11-0.59) K/uL Eos # (Auto) (0-0.5) K/uL Baso # (Auto) (0-0.2) K/uL Immature Gran # (Auto) (0.00-0.02) K/uL APTT 37.4 H (21.0-31.0) Seconds PTT Ratio 1.4 ABG pH 7.40 (7.35-7.45) ABG pCO2 42 (35-46) mmHg ABG pO2 112 H (80-95) mmHg ABG HCO3 25 H (19-24) mmol/L ABG O2 Saturation 98.2 H (90-95) % ABG Base Excess 0.2 (-9-1.8) mEq/L [place] Test Pos (Pos) Oxygen Given 15L Sodium (136-145) mmol/L Potassium (3.5-5.1) mmol/L Chloride (98-107) mmol/L Carbon Dioxide (21-32) mmol/L Anion Gap (3-11) BUN (7-18) mg/dl Creatinine (0.6-1.4) mg/dl Est Cr Clr Drug Dosing ml/min Est GFR ( Amer) ml/min Est GFR (Non-Af Amer) ml/min BUN/Creatinine Ratio (10-20) Glucose (70-99) mg/dl POC Glucose (70-99) mg/dl Lactate (0.4-2.0) mmol/L Calcium (8.5-10.1) mg/dl Magnesium (1.8-2.4) mg/dl Ammonia (11-32) umol/L Urine Color Dark Yellow Urine Appearance Cloudy A (Clear) Urine pH 5.0 (4.5-7.5) Ur Specific [place] 1.023 (1.000-1.030) Urine Protein 1+ H (Negative) Urine Glucose (UA) 3+ H (Negative) Urine Ketones Trace H (Negative) Urine Blood 3+ H (Negative) Urine Nitrite Negative (Negative) Urine Bilirubin Negative (Negative) Urine Urobilinogen Negative (Negative) Ur Leukocyte Esterase Negative (Negative) Urine WBC (Auto) 5-10 H (0-5) /hpf Urine RBC (Auto) 0-4 (0-4) /hpf U Hyaline Cast (Auto) 0 (0-5) /lpf U Epithel Cells (Auto) >30 H (0-5) /lpf Urine Bacteria (Auto) 2+ H (Negative) Amorphous Sediment Present A (None Prsent) Urine Yeast Not Reportable 03/30/21 03/30/21 03/30/21 Range/Units 23:14 21:46 21:33 WBC (4.8-10.8) K/uL RBC (4.7-6.1) M/uL Hgb (14.0-18.0) g/dL Hct (42-52) % MCV (80-100) fL MCH (25-34) pg MCHC (32-36) g/dL RDW Std Deviation (36.4-46.3) fL RDW Coeff of Lizet (11.5-14.5) % Plt Count (130-400) K/uL MPV (7.4-10.4) fL Immature Gran % (Auto) % Neut % (Auto) % Lymph % (Auto) % [place] % (Auto) % Eos % (Auto) % Baso % (Auto) % Neut # (Auto) (1.4-6.5) K/uL Lymph # (Auto) (1.2-3.4) K/uL [place] # (Auto) (0.11-0.59) K/uL Eos # (Auto) (0-0.5) K/uL Baso # (Auto) (0-0.2) K/uL Immature Gran # (Auto) (0.00-0.02) K/uL APTT (21.0-31.0) Seconds PTT Ratio ABG pH (7.35-7.45) ABG pCO2 (35-46) mmHg ABG pO2 (80-95) mmHg ABG HCO3 (19-24) mmol/L ABG O2 Saturation (90-95) % ABG Base Excess (-9-1.8) mEq/L [place] Test (Pos) Oxygen Given Sodium (136-145) mmol/L Potassium (3.5-5.1) mmol/L Chloride (98-107) mmol/L Carbon Dioxide (21-32) mmol/L Anion Gap (3-11) BUN (7-18) mg/dl Creatinine (0.6-1.4) mg/dl Est Cr Clr Drug Dosing ml/min Est GFR ( Amer) ml/min Est GFR (Non-Af Amer) ml/min BUN/Creatinine Ratio (10-20) Glucose (70-99) mg/dl POC Glucose 167 H (70-99) mg/dl Lactate 1.8 (0.4-2.0) mmol/L Calcium (8.5-10.1) mg/dl Magnesium (1.8-2.4) mg/dl Ammonia 34.5 H (11-32) umol/L Urine Color Urine Appearance (Clear) Urine pH (4.5-7.5) Ur Specific [place] (1.000-1.030) Urine Protein (Negative) Urine Glucose (UA) (Negative) Urine Ketones (Negative) Urine Blood (Negative) Urine Nitrite (Negative) Urine Bilirubin (Negative) Urine Urobilinogen (Negative) Ur Leukocyte Esterase (Negative) Urine WBC (Auto) (0-5) /hpf Urine RBC (Auto) (0-4) /hpf U Hyaline Cast (Auto) (0-5) /lpf U Epithel Cells (Auto) (0-5) /lpf Urine Bacteria (Auto) (Negative) Amorphous Sediment (None Prsent) Urine Yeast 03/30/21 03/30/21 03/30/21 Range/Units 21:33 21:33 20:29 WBC 8.29 (4.8-10.8) K/uL RBC 3.13 L (4.7-6.1) M/uL Hgb 9.6 L (14.0-18.0) g/dL Hct 30.6 L (42-52) % MCV 97.8 (80-100) fL MCH 30.7 (25-34) pg MCHC 31.4 L (32-36) g/dL RDW Std Deviation 54.1 H (36.4-46.3) fL RDW Coeff of [place] 15.4 H (11.5-14.5) % Plt Count 180 (130-400) K/uL MPV 10.2 (7.4-10.4) fL Immature Gran % (Auto) 0.2 % Neut % (Auto) 77.7 % Lymph % (Auto) 10.0 % [place] % (Auto) 8.8 % Eos % (Auto) 3.1 % Baso % (Auto) 0.2 % Neut # (Auto) 6.43 (1.4-6.5) K/uL Lymph # (Auto) 0.83 L (1.2-3.4) K/uL [place] # (Auto) 0.73 H (0.11-0.59) K/uL Eos # (Auto) 0.26 (0-0.5) K/uL Baso # (Auto) 0.02 (0-0.2) K/uL Immature Gran # (Auto) 0.02 (0.00-0.02) K/uL APTT (21.0-31.0) Seconds PTT Ratio ABG pH (7.35-7.45) ABG pCO2 (35-46) mmHg ABG pO2 (80-95) mmHg ABG HCO3 (19-24) mmol/L ABG O2 Saturation (90-95) % ABG Base Excess (-9-1.8) mEq/L [place] Test (Pos) Oxygen Given Sodium 133 L (136-145) mmol/L Potassium 3.7 (3.5-5.1) mmol/L Chloride 98 (98-107) mmol/L Carbon Dioxide 26 (21-32) mmol/L Anion Gap 10.0 (3-11) BUN 40 H (7-18) mg/dl Creatinine 1.68 H (0.6-1.4) mg/dl Est Cr Clr Drug Dosing 48.7 ml/min Est GFR ( Amer) 46.0 ml/min Est GFR (Non-Af Amer) 39.7 ml/min BUN/Creatinine Ratio 23.6 H (10-20) Glucose 156 H (70-99) mg/dl POC Glucose 150 H (70-99) mg/dl Lactate (0.4-2.0) mmol/L Calcium 8.9 (8.5-10.1) mg/dl Magnesium 2.3 (1.8-2.4) mg/dl Ammonia (11-32) umol/L Urine Color Urine Appearance (Clear) Urine pH (4.5-7.5) Ur Specific [place] (1.000-1.030) Urine Protein (Negative) Urine Glucose (UA) (Negative) Urine Ketones (Negative) Urine Blood (Negative) Urine Nitrite (Negative) Urine Bilirubin (Negative) Urine Urobilinogen (Negative) Ur Leukocyte Esterase (Negative) Urine WBC (Auto) (0-5) /hpf Urine RBC (Auto) (0-4) /hpf U Hyaline Cast (Auto) (0-5) /lpf U Epithel Cells (Auto) (0-5) /lpf Urine Bacteria (Auto) (Negative) Amorphous Sediment (None Prsent) Urine Yeast 03/30/21 03/30/21 Range/Units 18:04 16:55 WBC (4.8-10.8) K/uL RBC (4.7-6.1) M/uL Hgb (14.0-18.0) g/dL Hct (42-52) % MCV (80-100) fL MCH (25-34) pg MCHC (32-36) g/dL RDW Std Deviation (36.4-46.3) fL RDW Coeff of Lizet (11.5-14.5) % Plt Count (130-400) K/uL MPV (7.4-10.4) fL Immature Gran % (Auto) % Neut % (Auto) % Lymph % (Auto) % [place] % (Auto) % Eos % (Auto) % Baso % (Auto) % Neut # (Auto) (1.4-6.5) K/uL Lymph # (Auto) (1.2-3.4) K/uL [place] # (Auto) (0.11-0.59) K/uL Eos # (Auto) (0-0.5) K/uL Baso # (Auto) (0-0.2) K/uL Immature Gran # (Auto) (0.00-0.02) K/uL APTT 99.2 H* (21.0-31.0) Seconds PTT Ratio 3.8 ABG pH (7.35-7.45) ABG pCO2 (35-46) mmHg ABG pO2 (80-95) mmHg ABG HCO3 (19-24) mmol/L ABG O2 Saturation (90-95) % ABG Base Excess (-9-1.8) mEq/L [place] Test (Pos) Oxygen Given Sodium (136-145) mmol/L Potassium (3.5-5.1) mmol/L Chloride (98-107) mmol/L Carbon Dioxide (21-32) mmol/L Anion Gap (3-11) BUN (7-18) mg/dl Creatinine (0.6-1.4) mg/dl Est Cr Clr Drug Dosing ml/min Est GFR ( Amer) ml/min Est GFR (Non-Af Amer) ml/min BUN/Creatinine Ratio (10-20) Glucose (70-99) mg/dl POC Glucose 165 H (70-99) mg/dl Lactate (0.4-2.0) mmol/L Calcium (8.5-10.1) mg/dl Magnesium (1.8-2.4) mg/dl Ammonia (11-32) umol/L Urine Color Urine Appearance (Clear) Urine pH (4.5-7.5) Ur Specific [place] (1.000-1.030) Urine Protein (Negative) Urine Glucose (UA) (Negative) Urine Ketones (Negative) Urine Blood (Negative) Urine Nitrite (Negative) Urine Bilirubin (Negative) Urine Urobilinogen (Negative) Ur Leukocyte Esterase (Negative) Urine WBC (Auto) (0-5) /hpf Urine RBC (Auto) (0-4) /hpf U Hyaline Cast (Auto) (0-5) /lpf U Epithel Cells (Auto) (0-5) /lpf Urine Bacteria (Auto) (Negative) Amorphous Sediment (None Prsent) Urine Yeast
--- NOTE | 2021-03-31 15:30 | Electrocardiogram Report ---
Test Reason : Blood Pressure : / mmHG Vent. Rate : 136 BPM Atrial Rate : 125 BPM P-R Int : 000 ms QRS Dur : 114 ms QT Int : 284 ms P-R-T Axes : 000 028 229 degrees QTc Int : 427 ms Atrial fibrillation with rapid ventricular response Possible Inferior infarct , age undetermined Abnormal ECG When compared with ECG of 25-MAR-2021 08:06, Atrial fibrillation has replaced Electronic atrial pacemaker Vent. rate has increased BY 70 BPM Inverted T waves have replaced nonspecific T wave abnormality in Inferior leads T wave inversion now evident in Lateral leads Confirmed by Dong De La Cruz [id number]) on 03/31/2021 3:29:58 PM Referred By: REFERRED SELF Confirmed By:Dong De La Cruz
[2021-03-31 15:44] LABS: Partial Thromboplastin Ratio 2.9
[2021-03-31 15:49] LABS: Partial Thromboplastin Time 75.7 Seconds (21.0-31.0)
--- NOTE | 2021-03-31 16:44 | Hospitalist Progress Note ---
Date of Service March 31, 2021 Assessment & Plan (1) Hip fracture, left: Plan: Present on admission after a mechanical fall Femur Xray showed possible nondisplaced fracture at the intertrochanteric region of the left hip. CT hip showed Comminuted intertrochanteric fracture of the left femur ortho was consulted Tentative plan for trochanteric nailing tomorrow if the INR is adequate. INR 2 today, discussed with patient about giving Vit K Pt said that he would prefer his INR to drop on its own instead of receiving Vit K Pt understood the risk by holding coumadin and subtherapeutic INR such as reccurent blood clot INR 1.7 today, Continue IV heparin drip and will place on hold 6-hour before the procedure Cardiology on board for cardiac clearance Pt understood that he is at elevated risk for perioperative complications such as CHF, atrial arrhythmia, NM, blood clot and even No additional cardiac testing warranted at this time and agreed to hold coumadin as per cardiology Patient agreed to receive low-dose of vitamin K to reverse INR. He understood the risks such as recurrent blood clot Will make NPO after midnight 03/31/21 S/P day #2 Left Trochancteric Femoral Nail internal fixation of left Intertrochanteric Hip Fracture(Left) performed by Dr. Woo No postop complication Continue pain control Incentive spirometry PT/ OT eval Fall precaution (2) History of pulmonary embolism: (3) History of DVT (deep vein thrombosis): Plan: Hx of DVT about 2 years agoi and history of subsegmental pulmonary embolism 01/2021 in the setting of subtherapeutic INR Continue to hold coumadin FFP given in the morning Initially patient refused to receive vitamin K when I discussed it with him few days ago Today I discusssed again with him that the reason we postpone the surgery was because his INR was not below 1.5, he agreed to receive the vitamin K to reverse the INR INR 1 today Case discussed with Ortho and okay to resume heparin drip and Coumadin yesterday requested Continue monitor PT/INR (4) PAF (paroxysmal atrial fibrillation): Plan: Rate controlled on metoprolol, continue Coumadin and aspirin have been on hold Continue Heparin drip (5) Coronary artery disease: Plan: -Appears stable, no reports of chest pain -EKG demonstrates an atrial paced rhythm -Continue beta-isaías and statin, patient takes full dose aspirin, hold preoperatively and resume per the discretion of orthopedics (6) Ischemic cardiomyopathy: (7) Diastolic dysfunction: Plan: Echo 02/03-EF 35 to 40%, grade 2 static diastolic dysfunction, moderate mitral regurgitation, mild tricuspid regurgitation No sign of volume overload Will resume Lasix (8) History of pacemaker: Plan: -No acute issues (9) Diabetes mellitus, type 2: Plan: -Hgb A1c 6.1 02/2021 -Hold oral agents, Lantus and NovoLog per protocol while hospitalized (10) Cerebrovascular disease: Plan: -Holding aspirin as above -Continue statin (11) Chronic kidney disease stage 3: Plan: -Baseline creatinine runs in the low-mid 1's (12) DVT prophylaxis: Plan: -SCDs Admission and Anticipated Discharge Date Admission Date: March 25, 2021 Subjective Patient was seen and examined for postop left hip Patient had a code purple last night due to drowsiness and lethargy where Narcan was given He was transferred to PCU for close monitor Denies any chest pain, palpitation, dizziness, shortness of breath. Review of Systems Review of Systems: All systems reviewed & are unremarkable except as noted in Subjective Physical Exam Physical Exam: General- No acute distress Head- atraumatic Eyes- PERRL, EOMI, ENT- oropharynx clear Neck- supple, no JVD Lungs- +coarse breath sounds Heart- regular rhythm; no murmur Abdomen- normal bowel sounds, soft, nontender Extremities- no calf tenderness, left hip pain Neuro- alert, oriented x 3; PERRL, EOMI; no facial palsy; no dysarthria Skin- warm & dry Results & Data Results & Data ([facility]) Vital Signs (Past 12 Hours) Vital Signs Temp Pulse Pulse Pulse Resp BP Pulse Ox 03/31/21 16:03 36.5 C 92 H 14 106/68 99 03/31/21 11:37 36.5 C 88 14 116/71 98 03/31/21 09:04 94 H 03/31/21 06:51 36.7 C 100 H 18 120/74 97 03/31/21 05:50 112 H
--- NOTE | 2021-03-31 16:47 | Cardiology Progress Note ---
Date of Service March 31, 2021 Assessment & Plan (1) Pre-operative cardiovascular examination, bradycardia: (2) History of pacemaker: (3) Ischemic cardiomyopathy: (4) Coronary artery disease: (5) Chronic kidney disease stage 3: (6) History of pulmonary embolism: (7) Chronic left ventricular systolic heart failure: Plan: Patient is a very complex 75-year-old male with multivessel ischemic heart disease with chronic stable angina, ischemic cardiomyopathy compensated congestive heart failure underlying chronic obstructive lung disease and recent pulmonary embolus January 2021. Patient has an indwelling dual-chamber pacemaker with normal function Patient is referred for evaluation prior to planned hip repair following mechanical fall. There is no signs of unstable angina congestive heart failure or severe valvular disease historically. Patient is at elevated risk due to underlying significant morbidities Anticoagulation will be need to be closely tailored around surgery given pulmonary embolus in January No additional cardiac testing warranted at this time agree with already made plans for holding diuretic and warfarin initially. Discussed in detail indications for surgical repair of hip fracture with patient noted he is at elevated risk for perioperative complications including congestive heart failure and atrial arrhythmias. However significant risks are included in conservative management Patient is stable from a cardiac standpoint. I believe the events of last night were likely due to his baseline severe lung disease and postoperative narcotic use. Continue to monitor on telemetry overnight tonight. Admission and Anticipated Discharge Date Admission Date: March 25, 2021 Subjective Patient seen and examined, chart reviewed along with the events of overnight. Patient states he currently feels a little confused but physically well. Denies any cardiac complaints of chest pain, shortness of breath, palpitations, lightheadedness, dizziness or syncope. Review of Systems Review of Systems: All systems reviewed & are unremarkable except as noted in HPI & below Physical Exam Physical Exam: General: Awake, alert and oriented x 3. No acute distress. HEENT: Normocephalic, atraumatic. Pupils equal, round and reactive to light and accommodation. Extraocular muscles are intact. Anicteric sclera. Moist mucous membranes. Neck: No JVD. No bruit. Cardiovascular: Regular. Positive S-4. Normal S-1 and S-2. No S-3. No murmurs or rubs. Pulmonary: Clear to auscultation B/L. No rales, rhonchi or wheezing Abdomen: Bowel sounds x 4, soft. No rebound, guarding or tenderness. No organomegaly. Extremities: No clubbing, cyanosis or edema. +2 pedal pulses bilaterally. Skin: Warm and dry. Results & Data ([facility]) Vital Signs (Past 12 Hours) Vital Signs Temp Pulse Pulse Pulse Resp BP Pulse Ox 03/31/21 16:03 36.5 C 92 H 14 106/68 99 03/31/21 11:37 36.5 C 88 14 116/71 98 03/31/21 09:04 94 H 03/31/21 06:51 36.7 C 100 H 18 120/74 97 03/31/21 05:50 112 H
[2021-03-31] MEDS: PRIMIDONE 250 MG TAB PO SCH (20:51)
[2021-03-31] MEDS: ROSUVASTATIN CALCIUM 20 MG TAB PO SCH (20:51)
[2021-03-31] MEDS: MONTELUKAST SODIUM 10 MG TABLET PO SCH (20:51)
[2021-03-31] MEDS: allopurinoL 300 MG TAB PO SCH (20:51)
[2021-03-31] MEDS: DOCUSATE SODIUM/SENNA 50/8.6MG TAB PO SCH (20:53)
[2021-03-31 23:39] LABS: Partial Thromboplastin Ratio 4.3
[2021-03-31 23:54] LABS: Partial Thromboplastin Time 114.3 Seconds (21.0-31.0)
[2021-04-01] MEDS: HEPARIN SODIUM/DEXTROSE 25,000 UNITS/500 ML BAG IV SCH ×4 (01:10→21:00)
[2021-04-01 08:11] LABS: Basophils # (auto) 0.02 K/uL (0-0.2); Basophils % (auto) 0.2 %; Eosinophils # (auto) 0.19 K/uL (0-0.5); Eosinophils % (auto) 2.4 %; Hematocrit (blood only) 30.5 % (42-52); Hemoglobin 9.7 g/dL (14.0-18.0); Immature Granulocytes # (auto) 0.02 K/uL (0.00-0.02); Immature Granulocytes % (auto) 0.2 %; Lymphocytes # (auto) 0.68 K/uL (1.2-3.4); Lymphocytes % (auto) 8.4 %; Mean Corpuscular Hemoglobin 30.9 pg (25-34); Mean Corpuscular Hgb Conc 31.8 g/dL (32-36); Mean Corpuscular Volume 97.1 fL (80-100); Mean Platelet Volume 10.5 fL (7.4-10.4); Monocytes # (auto) 0.52 K/uL (0.11-0.59); Monocytes % (auto) 6.4 %; Neutrophils # (auto) 6.65 K/uL (1.4-6.5); Neutrophils % (auto) 82.4 %; Platelet Count 218 K/uL (130-400); RDW Coefficient of Variation 15.6 % (11.5-14.5); RDW Standard Deviation 54.3 fL (36.4-46.3); Red Blood Count 3.14 M/uL (4.7-6.1); White Blood Count 8.08 K/uL (4.8-10.8)
[2021-04-01 08:30] LABS: INR 1.1 (0.9-1.1); Partial Thromboplastin Ratio 2.1; Prothrombin Time 10.8 Seconds (9.0-12.0)
[2021-04-01 08:45] LABS: BUN Creatinine Ratio 26.5 (10-20); Calcium 9.4 mg/dl (8.5-10.1); Creatinine Clr Calc Pharmacy 54.6 ml/min; Est GFR (African American) 52.8 ml/min; Est GFR (Non-African American) 45.5 ml/min; Potassium 3.9 mmol/L (3.5-5.1)
[2021-04-01 08:59] LABS: Partial Thromboplastin Time 55.8 Seconds (21.0-31.0)
[2021-04-01] MEDS: INSULIN ASPART 100 UNITS/ML 3 ML PEN SC SCH ×4 (09:24→21:02)
[2021-04-01] MEDS: MULTIVITAMIN TAB PO SCH (09:28)
[2021-04-01] MEDS: FERROUS SULFATE 325 MG TAB PO SCH (09:28)
[2021-04-01] MEDS: DOCUSATE SODIUM 100 MG CAP PO SCH ×2 (09:33→21:01)
--- NOTE | 2021-04-01 10:44 | Cardiology Progress Note ---
Date of Service April 01, 2021 Assessment & Plan (1) Pre-operative cardiovascular examination, bradycardia: (2) History of pacemaker: (3) Ischemic cardiomyopathy: (4) Coronary artery disease: (5) Chronic kidney disease stage 3: (6) History of pulmonary embolism: (7) Chronic left ventricular systolic heart failure: Plan: Patient is a very complex 75-year-old male with multivessel ischemic heart disease with chronic stable angina, ischemic cardiomyopathy compensated congestive heart failure underlying chronic obstructive lung disease and recent pulmonary embolus January 2021. Patient has an indwelling dual-chamber pacemaker with normal function Patient is referred for evaluation prior to planned hip repair following mechanical fall. There is no signs of unstable angina congestive heart failure or severe valvular disease historically. Patient is at elevated risk due to underlying significant morbidities Anticoagulation will be need to be closely tailored around surgery given pulmonary embolus in January No additional cardiac testing warranted at this time agree with already made plans for holding diuretic and warfarin initially. Discussed in detail indications for surgical repair of hip fracture with patient noted he is at elevated risk for perioperative complications including congestive heart failure and atrial arrhythmias. However significant risks are included in conservative management Patient is stable from a cardiac standpoint. I believe the events of the other night were likely due to his baseline severe lung disease and postoperative narcotic use. A. fib rates increased today.Will restart outpatient metoprolol succinate 25 mg daily INR remains subtherapeutic at 1.1, continue heparin drip and p.o. warfarin Okay to DC telemetry from a cardiac standpoint. Renal function improving as is hyponatremia. Given that his renal function is returning to baseline I believe he would be a candidate for Lovenox bridging as an outpatient. Okay to DC to inpatient rehab from a cardiac standpoint. Admission and Anticipated Discharge Date Admission Date: March 25, 2021 Subjective Patient seen and examined, chart reviewed. No further events overnight. States he is feeling close to baseline but still with some slight confusion. Shortness of breath is unchanged. Denies chest pain, palpitations or lightheadedness. Telemetry reviewed: Atrial fibrillation with rapid ventricular response. Review of Systems Review of Systems: All systems reviewed & are unremarkable except as noted in HPI & below Physical Exam Physical Exam: General: Awake, alert and oriented x 3. No acute distress. HEENT: Normocephalic, atraumatic. Pupils equal, round and reactive to light and accommodation. Extraocular muscles are intact. Anicteric sclera. Moist mucous membranes. Neck: No JVD. No bruit. Cardiovascular: Regular. Positive S-4. Normal S-1 and S-2. No S-3. No murmurs or rubs. Pulmonary: Clear to auscultation B/L. No rales, rhonchi or wheezing Abdomen: Bowel sounds x 4, soft. No rebound, guarding or tenderness. No organomegaly. Extremities: No clubbing, cyanosis or edema. +2 pedal pulses bilaterally. Skin: Warm and dry. Results & Data ([facility]) Vital Signs (Past 12 Hours) Vital Signs Temp Pulse Pulse Pulse Resp BP Pulse Ox 04/01/21 07:04 36.7 C 117 H 20 108/69 97 04/01/21 05:38 96 H 04/01/21 03:55 36.7 C 105 H 18 113/70 92 04/01/21 00:31 36.7 C 75 18 96/59 L 91 04/01/21 00:11 Pulse Ox 04/01/21 07:04 04/01/21 05:38 04/01/21 03:55 04/01/21 00:31 04/01/21 00:11 91
[2021-04-01] MEDS: METOPROLOL SUCC 25MG EXT REL TAB PO SCH (11:00)
--- NOTE | 2021-04-01 16:07 | Hospitalist Progress Note ---
Date of Service April 01, 2021 Assessment & Plan (1) Hip fracture, left: Plan: Present on admission after a mechanical fall Femur Xray showed possible nondisplaced fracture at the intertrochanteric region of the left hip. CT hip showed Comminuted intertrochanteric fracture of the left femur Appreciate Ortho input and recommendation Pt understood the risk by holding coumadin and subtherapeutic INR such as reccurent blood clot INR was reasonably reversed before the surgical procedure Cardiology on board for cardiac clearance -appreciate cardiology input and recommendation Pt understood that he is at elevated risk for perioperative complications such as CHF, atrial arrhythmia, [place], blood clot and even No additional cardiac testing warranted at this time and agreed to hold coumadin as per cardiology Patient agreed to receive low-dose of vitamin K to reverse INR. He understood the risks such as recurrent blood clot Status post left trochanteric femoral nail for a left intertrochanteric hip fracture on 03/29/[address] Contreras Continue pain control and PT OT as per Ortho Incentive spirometry Clinically better but remains extremely weak and lethargic (2) History of pulmonary embolism: Plan: Will need to continue Coumadin (3) History of DVT (deep vein thrombosis): Plan: Hx of DVT about 2 years agoi and history of subsegmental pulmonary embolism 01/2021 in the setting of subtherapeutic INR Coumadin was on hold prior to surgery and it has been restarted following the procedure He refused to get vitamin K but later on agreed to that and received vitamin K and also FFP prior to surgery INR went back to 1 around surgery and heparin with Coumadin has been restarted following the surgery Can be discharged with Lovenox and Coumadin on approval to a facility (4) PAF (paroxysmal atrial fibrillation): Plan: Rate controlled on metoprolol, continue Coumadin and aspirin have been on hold Continue Heparin drip and Coumadin (5) Coronary artery disease: Plan: -Appears stable, no reports of chest pain -EKG demonstrates an atrial paced rhythm -Continue beta-isaías and statin, patient takes full dose aspirin, hold preoperatively and resume per the discretion of orthopedics (6) Ischemic cardiomyopathy: Plan: As above (7) Diastolic dysfunction: Plan: Echo 02/03-EF 35 to 40%, grade 2 static diastolic dysfunction, moderate mitral regurgitation, mild tricuspid regurgitation No sign of volume overload Will resume Lasix (8) History of pacemaker: Plan: -No acute issues (9) Diabetes mellitus, type 2: Plan: -Hgb A1c 6.1 02/2021 -Hold oral agents, Lantus and NovoLog per protocol while hospitalized (10) Cerebrovascular disease: Plan: -Holding aspirin as above -Continue statin (11) Chronic kidney disease stage 3: Plan: -Baseline creatinine runs in the low-mid 1's (12) DVT prophylaxis: Plan: -SCDs Admission and Anticipated Discharge Date Admission Date: March 25, 2021 Subjective 04/01/2021 The patient was seen and examined in telemetry unit He complains of extreme weakness and tiredness Denies any chest pain, palpitation or more shortness of breath No abdominal pain, nausea and or vomiting Review of Systems Review of Systems: All systems reviewed and are unremarkable except as noted below Musculoskeletal: Generalized weakness without any acute arthritis Neurologic: Alert, awake and oriented x3 Physical Exam Physical Exam: Sitting at the edge of the bed with minimal distress due to weakness and shortness of breath Constitutional: well developed, well nourished, + ill appearing and + obese Eyes: PERRL, conjunctivae normal, anicteric sclerae ENMT: external ear and nose normal, oropharynx normal Neck: trachea midline, no thyromegaly Respiratory: + cough; no respiratory distress Auscultation: + diminished lung sounds and + crackles (Bibasilar crackles); no wheezes Cardiovascular: Rate/Rhythm: regular rate, regular rhythm and + tachycardic Heart Sounds: normal S1 and normal S2; no murmur Extremities: + edema (Trace edema bilaterally) Gastrointestinal (Abdomen): Inspection/Auscultation: + abdomen distended and normal bowel sounds Percussion/Palpation: abdomen soft; abdomen nontender Musculoskeletal: No acute arthritis in any joint Neurologic: Alert, awake and oriented x3. Generally weak and lethargic Results & Data Results & Data ([facility]) Vital Signs (Past 12 Hours) Vital Signs Temp Pulse Pulse Resp BP Pulse Ox 04/01/21 11:02 36.6 C 107 H 20 124/73 95 04/01/21 10:00 96 H 04/01/21 07:04 36.7 C 117 H 20 108/69 97 04/01/21 05:38 96 H Laboratory Results Short CBC 04/01/21 Range/Units 07:20 WBC 8.08 (4.8-10.8) K/uL Hgb 9.7 L (14.0-18.0) g/dL Hct 30.5 L (42-52) % Plt Count 218 (130-400) K/uL BMP 04/01/21 07:20 Sodium 135 L Potassium 3.9 D Chloride 99 Carbon Dioxide 27 BUN 40 H Creatinine 1.50 H Glucose 166 H Calcium 9.4 Medications Administered Current Inpatient Medications Acetaminophen (Acetaminophen 325 Mg Tab) 650 mg PO Q4H PRN PRN Reason: pain/fever Stop: 04/24/21 15:59 Allopurinol (Allopurinol 300 Mg Tab) 300 mg PO HS ANNA Stop: 04/24/21 20:59 Last Admin: 03/31/21 20:51 Dose: 300 mg Documented by: Bisacodyl (Bisacodyl 10 Mg Supp) 10 mg MA DAILY PRN PRN Reason: Constipation Stop: 04/24/21 15:59 Bisacodyl (Bisacodyl 10 Mg Supp) 10 mg MA DAILY PRN PRN Reason: Constipation Stop: 04/28/21 17:37 Dextrose (Dextrose 50% 50 Ml Syringe) 25 - 50 ml IV UD PRN; Protocol PRN Reason: Hypoglycemia Protocol Stop: 04/24/21 15:59 Docusate Sodium (Docusate Sodium 100 Mg Cap) 100 mg PO BID ANNA Stop: 04/28/21 20:59 Last Admin: 04/01/21 09:33 Dose: 100 mg Documented by: Ferrous Sulfate (Ferrous Sulfate 325 Mg Tab) 325 mg PO Q2D ANNA Stop: 04/25/21 08:59 Last Admin: 04/01/21 09:28 Dose: 325 mg Documented by: Glucagon (Glucagon For Inj 1 Mg Vial) 1 mg SQ UD PRN; Protocol PRN Reason: Hypoglycemia Protocol Stop: 04/24/21 15:59 Glucose (Glucose 10 Tabs/Tube) 4 - 8 tabs PO UD PRN; Protocol PRN Reason: Hypoglycemia Protocol Stop: 04/24/21 15:59 Glucose (Glucose 40% Gel 15 Gm Tube) 15 - 30 gm PO UD PRN; Protocol PRN Reason: Hypoglycemia Protocol Stop: 04/24/21 15:59 Heparin Sodium/Dextrose (Heparin Sodium/Dextrose) 25,000 units in 500 mls @ 18 mls/hr IV .Q24H ANNA; Protocol Stop: 10/14/21 11:58 Last Admin: 04/01/21 06:21 Dose: 900 units/hr, 18 mls/hr Documented by: Promethazine HCl 12.5 mg/ (Sodium Chloride) 50.5 mls @ 202 mls/hr IV Q6H PRN PRN Reason: Nausea And Vomiting Stop: 04/30/21 02:12 Insulin Aspart (Insulin Aspart 100 Units/Ml 3 Ml Pen) 0 units SC [facility] Stop: 04/28/21 20:59 Last Admin: 04/01/21 12:26 Dose: 1 units Documented by: Metoprolol Succinate (Metoprolol Succ 25mg Ext Rel Tab) 25 mg PO [facility] Stop: 05/01/21 10:44 Last Admin: 04/01/21 11:00 Dose: 25 mg Documented by: Miscellaneous (Carbohydrates For Hypoglycemia ) 15 - 30 gm PO UD PRN PRN Reason: Hypoglycemia Protocol Stop: 04/24/21 15:59 Last Admin: 03/25/21 20:20 Dose: 15 gm Documented by: Montelukast Sodium (Montelukast Sodium 10 Mg Tablet) 10 mg PO [facility] Stop: 04/24/21 20:59 Last Admin: 03/31/21 20:51 Dose: 10 mg Documented by: Multivitamins (Multivitamin Tab) 1 tab PO [facility] Stop: 04/29/21 08:59 Last Admin: 04/01/21 09:28 Dose: 1 tab Documented by: Naloxone HCl (Naloxone Hcl 0.4 Mg/1 Ml Vial/Carp) 0.1 mg IV Q5M PRN PRN Reason: Oversedation/Resp Depression Stop: 04/28/21 17:37 Oxycodone HCl (Oxycodone Hcl Ir 5 Mg Tab (Immediate Release)) 5 mg PO Q4H PRN PRN Reason: Pain Stop: 04/14/21 03:15 Primidone (Primidone 250 Mg Tab) 500 mg PO [facility] Stop: 04/24/21 20:59 Last Admin: 03/31/21 20:51 Dose: 500 mg Documented by: Rosuvastatin Calcium (Rosuvastatin Calcium 20 Mg Tab) 40 mg PO [facility] Stop: 04/24/21 20:59 Last Admin: 03/31/21 20:51 Dose: 40 mg Documented by: Senna/Docusate Sodium (Docusate Sodium/Senna 50/8.6mg Tab) 2 tab PO HS [facility] Stop: 04/24/21 20:59 Last Admin: 03/31/21 20:53 Dose: 2 tab Documented by: Warfarin Sodium (Warfarin Sod 6 Mg Tab) 6 mg PO DAILY@1600 [facility] Stop: 04/29/21 15:59 Last Admin: 03/30/21 16:29 Dose: 6 mg Documented by:
[2021-04-01] MEDS: WARFARIN SOD 6 MG TAB PO SCH (16:53)
[2021-04-01] MEDS: DOCUSATE SODIUM/SENNA 50/8.6MG TAB PO SCH (21:01)
[2021-04-01] MEDS: PRIMIDONE 250 MG TAB PO SCH (21:01)
[2021-04-01] MEDS: ROSUVASTATIN CALCIUM 20 MG TAB PO SCH (21:01)
[2021-04-01] MEDS: allopurinoL 300 MG TAB PO SCH (21:02)
[2021-04-01] MEDS: MONTELUKAST SODIUM 10 MG TABLET PO SCH (21:02)
[2021-04-02 08:29] LABS: BUN Creatinine Ratio 28.2 (10-20); Calcium 9.5 mg/dl (8.5-10.1); Creatinine Clr Calc Pharmacy 66.5 ml/min; Est GFR (African American) 67.1 ml/min; Est GFR (Non-African American) 57.9 ml/min; INR 1.3 (0.9-1.1); Magnesium 2.4 mg/dl (1.8-2.4); Partial Thromboplastin Ratio 2.1; Potassium 3.5 mmol/L (3.5-5.1); Prothrombin Time 12.7 Seconds (9.0-12.0)
[2021-04-02 08:30] LABS: Phosphorus 2.8 mg/dl (2.5-4.9)
[2021-04-02 08:31] LABS: Partial Thromboplastin Time 56.3 Seconds (21.0-31.0)
[2021-04-02] MEDS: METOPROLOL SUCC 25MG EXT REL TAB PO SCH (08:57)
[2021-04-02] MEDS: INSULIN ASPART 100 UNITS/ML 3 ML PEN SC SCH ×4 (08:57→20:32)
[2021-04-02] MEDS: MULTIVITAMIN TAB PO SCH (08:57)
[2021-04-02] MEDS: DOCUSATE SODIUM 100 MG CAP PO SCH ×2 (09:00→19:36)
--- NOTE | 2021-04-02 11:59 | Cardiology Progress Note ---
Date of Service April 02, 2021 Assessment & Plan (1) Pre-operative cardiovascular examination, bradycardia: (2) History of pacemaker: (3) Ischemic cardiomyopathy: (4) Coronary artery disease: (5) Chronic kidney disease stage 3: (6) History of pulmonary embolism: (7) Chronic left ventricular systolic heart failure: Plan: Patient is a very complex 75-year-old male with multivessel ischemic heart disease with chronic stable angina, ischemic cardiomyopathy compensated congestive heart failure underlying chronic obstructive lung disease and recent pulmonary embolus January 2021. Patient has an indwelling dual-chamber pacemaker with normal function Patient is referred for evaluation prior to planned hip repair following mechanical fall. There is no signs of unstable angina congestive heart failure or severe valvular disease historically. Patient is at elevated risk due to underlying significant morbidities Anticoagulation will be need to be closely tailored around surgery given pulmonary embolus in January No additional cardiac testing warranted at this time agree with already made plans for holding diuretic and warfarin initially. Discussed in detail indications for surgical repair of hip fracture with patient noted he is at elevated risk for perioperative complications including congestive heart failure and atrial arrhythmias. However significant risks are included in conservative management Patient is stable from a cardiac standpoint. I believe the events of the other night were likely due to his baseline severe lung disease and postoperative narcotic use. A. fib rates increased today.Will restart outpatient metoprolol succinate 25 mg daily INR remains subtherapeutic at 1.3, continue heparin drip and p.o. warfarin. Okay to DC telemetry from a cardiac standpoint. Renal function improving as is hyponatremia. Given that his renal function is returning to baseline I believe he would be a candidate for Lovenox bridging as an outpatient. Okay to DC to inpatient rehab from a cardiac standpoint. Admission and Anticipated Discharge Date Admission Date: March 25, 2021 Subjective Patient seen and examined, chart reviewed. States he is much more lethargic today but denies any cardiac complaints of chest pain, shortness of breath, palpitations, lightheadedness, dizziness or syncope. Telemetry reviewed: Atrial fibrillation Review of Systems Review of Systems: All systems reviewed & are unremarkable except as noted in HPI & below Physical Exam Physical Exam: General: Awake, alert and oriented x 3. No acute distress. HEENT: Normocephalic, atraumatic. Pupils equal, round and reactive to light and accommodation. Extraocular muscles are intact. Anicteric sclera. Moist mucous membranes. Neck: No JVD. No bruit. Cardiovascular: Regular. Positive S-4. Normal S-1 and S-2. No S-3. No murmurs or rubs. Pulmonary: Clear to auscultation B/L. No rales, rhonchi or wheezing Abdomen: Bowel sounds x 4, soft. No rebound, guarding or tenderness. No organomegaly. Extremities: No clubbing, cyanosis or edema. +2 pedal pulses bilaterally. Skin: Warm and dry. Results & Data ([facility]) Vital Signs (Past 12 Hours) Vital Signs Temp Pulse Pulse Resp BP BP Pulse Ox 04/02/21 11:44 36.4 C L 105 H 18 107/72 96 04/02/21 07:24 36.4 C L 76 18 115/59 L 97 04/02/21 03:02 36.8 C 100 H 18 117/68 100 04/02/21 00:00 Pulse Ox 04/02/21 11:44 04/02/21 07:24 04/02/21 03:02 04/02/21 00:00 96
[2021-04-02] MEDS: HEPARIN SODIUM/DEXTROSE 25,000 UNITS/500 ML BAG IV SCH (12:07)
--- NOTE | 2021-04-02 16:30 | Hospitalist Progress Note ---
Date of Service April 02, 2021 Assessment & Plan (1) Hip fracture, left: Plan: Present on admission after a mechanical fall Femur Xray showed possible nondisplaced fracture at the intertrochanteric region of the left hip. CT hip showed Comminuted intertrochanteric fracture of the left femur Appreciate Ortho input and recommendation Pt understood the risk by holding coumadin and subtherapeutic INR such as reccurent blood clot INR was reasonably reversed before the surgical procedure Cardiology on board for cardiac clearance -appreciate cardiology input and recommendation Pt understood that he is at elevated risk for perioperative complications such as CHF, atrial arrhythmia, [place], blood clot and even No additional cardiac testing warranted at this time and agreed to hold coumadin as per cardiology Patient agreed to receive low-dose of vitamin K to reverse INR. He understood the risks such as recurrent blood clot Status post left trochanteric femoral nail for a left intertrochanteric hip fracture on 03/29/[address] Contreras Continue pain control and PT OT as per Ortho Incentive spirometry Clinically better and is still remains weak which is gradually improving Awaiting placement (2) History of pulmonary embolism: Plan: Will need to continue Coumadin (3) History of DVT (deep vein thrombosis): Plan: Hx of DVT about 2 years agoi and history of subsegmental pulmonary embolism 01/2021 in the setting of subtherapeutic INR Coumadin was on hold prior to surgery and it has been restarted following the procedure He refused to get vitamin K but later on agreed to that and received vitamin K and also FFP prior to surgery INR went back to 1 around surgery and heparin with Coumadin has been restarted following the surgery Can be discharged with Lovenox and Coumadin on approval to a facility INR is 1.3 and will continue current management (4) PAF (paroxysmal atrial fibrillation): Plan: Rate controlled on metoprolol, continue Coumadin and aspirin have been on hold Continue Heparin drip and Coumadin (5) Coronary artery disease: Plan: -Appears stable, no reports of chest pain -EKG demonstrates an atrial paced rhythm -Continue beta-isaías and statin, patient takes full dose aspirin, hold preoperatively and resume per the discretion of orthopedics -No acute symptoms (6) Ischemic cardiomyopathy: Plan: As above (7) Diastolic dysfunction: Plan: Echo 02/03-EF 35 to 40%, grade 2 static diastolic dysfunction, moderate mitral regurgitation, mild tricuspid regurgitation No sign of volume overload Will resume Lasix (8) History of pacemaker: Plan: -No acute issues (9) Diabetes mellitus, type 2: Plan: -Hgb A1c 6.1 02/2021 -Hold oral agents, Lantus and NovoLog per protocol while hospitalized (10) Cerebrovascular disease: Plan: -Holding aspirin as above -Continue statin (11) Chronic kidney disease stage 3: Plan: -Baseline creatinine runs in the low-mid 1's (12) DVT prophylaxis: Plan: -SCDs Plan: Awaiting placement Admission and Anticipated Discharge Date Admission Date: March 25, 2021 Subjective 04/01/2021 The patient was seen and examined in telemetry unit He complains of extreme weakness and tiredness Denies any chest pain, palpitation or more shortness of breath No abdominal pain, nausea and or vomiting 04/02/2021 The patient was seen and examined in telemetry unit He remains weak and lethargic but denies any other symptoms He has been waiting to go to inpatient rehab Review of Systems Review of Systems: All systems reviewed and are unremarkable except as noted below Musculoskeletal: Generalized weakness without any acute arthritis Neurologic: Alert, awake and oriented x3 Physical Exam Physical Exam: Sitting at the edge of the bed with minimal distress due to weakness and shortness of breath Constitutional: well developed, well nourished, + ill appearing and + obese Eyes: PERRL, conjunctivae normal, anicteric sclerae ENMT: external ear and nose normal, oropharynx normal Neck: trachea midline, no thyromegaly Respiratory: + cough; no respiratory distress Auscultation: + diminished lung sounds and + crackles (Bibasilar crackles); no wheezes Cardiovascular: Rate/Rhythm: regular rate, regular rhythm and + tachycardic Heart Sounds: normal S1 and normal S2; no murmur Extremities: + edema (Trace edema bilaterally) Gastrointestinal (Abdomen): Inspection/Auscultation: + abdomen distended and normal bowel sounds Percussion/Palpation: abdomen soft; abdomen nontender Musculoskeletal: No acute arthritis involving any joint Neurologic: Alert, awake and oriented x3, generally weak and lethargic Results & Data Results & Data ([facility]) Vital Signs (Past 12 Hours) Vital Signs Temp Pulse Pulse Resp BP BP Pulse Ox 04/02/21 16:20 36.3 C L 113 H 18 106/68 92 04/02/21 15:25 96 H 04/02/21 11:44 36.4 C L 105 H 18 107/72 96 04/02/21 07:24 36.4 C L 76 18 115/59 L 97 Laboratory Results [facility] 04/02/21 07:16 Sodium 137 Potassium 3.5 Chloride 100 Carbon Dioxide 25 BUN 35 H Creatinine 1.23 Glucose 144 H Calcium 9.5 Medications Administered Current Inpatient Medications Acetaminophen (Acetaminophen 325 Mg Tab) 650 mg PO Q4H PRN PRN Reason: pain/fever Stop: 04/24/21 15:59 Allopurinol (Allopurinol 300 Mg Tab) 300 mg PO HS ANNA Stop: 04/24/21 20:59 Last Admin: 04/01/21 21:02 Dose: 300 mg Documented by: Bisacodyl (Bisacodyl 10 Mg Supp) 10 mg ID DAILY PRN PRN Reason: Constipation Stop: 04/24/21 15:59 Bisacodyl (Bisacodyl 10 Mg Supp) 10 mg ID DAILY PRN PRN Reason: Constipation Stop: 04/28/21 17:37 Dextrose (Dextrose 50% 50 Ml Syringe) 25 - 50 ml IV UD PRN; Protocol PRN Reason: Hypoglycemia Protocol Stop: 04/24/21 15:59 Docusate Sodium (Docusate Sodium 100 Mg Cap) 100 mg PO BID ANNA Stop: 04/28/21 20:59 Last Admin: 04/02/21 09:00 Dose: 100 mg Documented by: Ferrous Sulfate (Ferrous Sulfate 325 Mg Tab) 325 mg PO Q2D ANNA Stop: 04/25/21 08:59 Last Admin: 04/01/21 09:28 Dose: 325 mg Documented by: Glucagon (Glucagon For Inj 1 Mg Vial) 1 mg SQ UD PRN; Protocol PRN Reason: Hypoglycemia Protocol Stop: 04/24/21 15:59 Glucose (Glucose 10 Tabs/Tube) 4 - 8 tabs PO UD PRN; Protocol PRN Reason: Hypoglycemia Protocol Stop: 04/24/21 15:59 Glucose (Glucose 40% Gel 15 Gm Tube) 15 - 30 gm PO UD PRN; Protocol PRN Reason: Hypoglycemia Protocol Stop: 04/24/21 15:59 Heparin Sodium/Dextrose (Heparin Sodium/Dextrose) 25,000 units in 500 mls @ 18 mls/hr IV .Q24H ANNA; Protocol Stop: 04/29/21 11:58 Last Admin: 04/02/21 12:07 Dose: 900 units/hr, 18 mls/hr Documented by: Promethazine HCl 12.5 mg/ (Sodium Chloride) 50.5 mls @ 202 mls/hr IV Q6H PRN PRN Reason: Nausea And Vomiting Stop: 04/30/21 02:12 Insulin Aspart (Insulin Aspart 100 Units/Ml 3 Ml Pen) 0 units SC [facility] Stop: 04/28/21 20:59 Last Admin: 04/02/21 12:08 Dose: 1 units Documented by: Metoprolol Succinate (Metoprolol Succ 25mg Ext Rel Tab) 25 mg PO [facility] Stop: 05/01/21 10:44 Last Admin: 04/02/21 08:57 Dose: 25 mg Documented by: Miscellaneous (Carbohydrates For Hypoglycemia ) 15 - 30 gm PO UD PRN PRN Reason: Hypoglycemia Protocol Stop: 04/24/21 15:59 Last Admin: 03/25/21 20:20 Dose: 15 gm Documented by: Montelukast Sodium (Montelukast Sodium 10 Mg Tablet) 10 mg PO [facility] Stop: 04/24/21 20:59 Last Admin: 04/01/21 21:02 Dose: 10 mg Documented by: Multivitamins (Multivitamin Tab) 1 tab PO [facility] Stop: 04/29/21 08:59 Last Admin: 04/02/21 08:57 Dose: 1 tab Documented by: Naloxone HCl (Naloxone Hcl 0.4 Mg/1 Ml Vial/Carp) 0.1 mg IV Q5M PRN PRN Reason: Oversedation/Resp Depression Stop: 04/28/21 17:37 Oxycodone HCl (Oxycodone Hcl Ir 5 Mg Tab (Immediate Release)) 5 mg PO Q4H PRN PRN Reason: Pain Stop: 04/14/21 03:15 Primidone (Primidone 250 Mg Tab) 500 mg PO [facility] Stop: 04/24/21 20:59 Last Admin: 04/01/21 21:01 Dose: 500 mg Documented by: Rosuvastatin Calcium (Rosuvastatin Calcium 20 Mg Tab) 40 mg PO [facility] Stop: 04/24/21 20:59 Last Admin: 04/01/21 21:01 Dose: 40 mg Documented by: Senna/Docusate Sodium (Docusate Sodium/Senna 50/8.6mg Tab) 2 tab PO HS [facility] Stop: 04/24/21 20:59 Last Admin: 04/01/21 21:01 Dose: 2 tab Documented by: Warfarin Sodium (Warfarin Sod 6 Mg Tab) 6 mg PO DAILY@1600 [facility] Stop: 04/29/21 15:59 Last Admin: 04/01/21 16:53 Dose: 6 mg Documented by:
[2021-04-02] MEDS: WARFARIN SOD 6 MG TAB PO SCH (16:31)
[2021-04-02] MEDS: oxyCODONE HCL IR 5 MG TAB (IMMEDIATE RELEASE) PO PRN (16:33)
[2021-04-02] MEDS: ROSUVASTATIN CALCIUM 20 MG TAB PO SCH (19:34)
[2021-04-02] MEDS: allopurinoL 300 MG TAB PO SCH (19:35)
[2021-04-02] MEDS: PRIMIDONE 250 MG TAB PO SCH (19:35)
[2021-04-02] MEDS: MONTELUKAST SODIUM 10 MG TABLET PO SCH (19:35)
[2021-04-02] MEDS: DOCUSATE SODIUM/SENNA 50/8.6MG TAB PO SCH (19:36)
[2021-04-03] MEDS: oxyCODONE HCL IR 5 MG TAB (IMMEDIATE RELEASE) PO PRN ×2 (01:24→12:46)
[2021-04-03 07:45] LABS: Partial Thromboplastin Ratio 1.8
[2021-04-03 07:49] LABS: Partial Thromboplastin Time 48.5 Seconds (21.0-31.0)
[2021-04-03] MEDS: MULTIVITAMIN TAB PO SCH (08:13)
[2021-04-03] MEDS: METOPROLOL SUCC 25MG EXT REL TAB PO SCH (08:13)
[2021-04-03] MEDS: FERROUS SULFATE 325 MG TAB PO SCH (08:13)
[2021-04-03] MEDS: INSULIN ASPART 100 UNITS/ML 3 ML PEN SC SCH ×2 (08:52→12:05)
[2021-04-03 09:15] LABS: Basophils # (auto) 0.02 K/uL (0-0.2); Basophils % (auto) 0.2 %; Eosinophils # (auto) 0.18 K/uL (0-0.5); Eosinophils % (auto) 2.1 %; Hematocrit (blood only) 33.7 % (42-52); Hemoglobin 10.9 g/dL (14.0-18.0); Immature Granulocytes # (auto) 0.07 K/uL (0.00-0.02); Immature Granulocytes % (auto) 0.8 %; Lymphocytes % (auto) 10.5 %; Mean Corpuscular Hemoglobin 30.7 pg (25-34); Mean Corpuscular Hgb Conc 32.3 g/dL (32-36); Mean Corpuscular Volume 94.9 fL (80-100); Mean Platelet Volume 9.8 fL (7.4-10.4); Monocytes # (auto) 0.83 K/uL (0.11-0.59); Monocytes % (auto) 9.7 %; Neutrophils # (auto) 6.58 K/uL (1.4-6.5); Neutrophils % (auto) 76.7 %; Platelet Count 236 K/uL (130-400); RDW Coefficient of Variation 15.6 % (11.5-14.5); RDW Standard Deviation 53.7 fL (36.4-46.3); Red Blood Count 3.55 M/uL (4.7-6.1); White Blood Count 8.58 K/uL (4.8-10.8)
[2021-04-03 09:17] LABS: INR 1.7 (0.9-1.1); Prothrombin Time 16.4 Seconds (9.0-12.0)
[2021-04-03] MEDS ORDERED: ENOXAPARIN 100 MG/1ML SYR SQ SCH (09:30)
--- NOTE | 2021-04-03 11:38 | Hospitalist Progress Note ---
Date of Service April 03, 2021 Assessment & Plan (1) Hip fracture, left: Plan: Present on admission after a mechanical fall Femur Xray showed possible nondisplaced fracture at the intertrochanteric region of the left hip. CT hip showed Comminuted intertrochanteric fracture of the left femur Appreciate Ortho input and recommendation Pt understood the risk by holding coumadin and subtherapeutic INR such as reccurent blood clot INR was reasonably reversed before the surgical procedure Cardiology on board for cardiac clearance -appreciate cardiology input and recommendation Pt understood that he is at elevated risk for perioperative complications such as CHF, atrial arrhythmia, VA, blood clot and even No additional cardiac testing warranted at this time and agreed to hold coumadin as per cardiology Patient agreed to receive low-dose of vitamin K to reverse INR. He understood the risks such as recurrent blood clot Status post left trochanteric femoral nail for a left intertrochanteric hip fracture on 03/29/[address] Contreras Continue pain control and PT OT as per Ortho Remains stable for the last 2 to 3 days Remains generally weak and getting better with physical therapy Will be transferred to [facility] this afternoon (2) History of pulmonary embolism: Plan: Will need to continue Coumadin (3) History of DVT (deep vein thrombosis): Plan: Hx of DVT about 2 years agoi and history of subsegmental pulmonary embolism 01/2021 in the setting of subtherapeutic INR Coumadin was on hold prior to surgery and it has been restarted following the procedure He refused to get vitamin K but later on agreed to that and received vitamin K and also FFP prior to surgery INR went back to 1 around surgery and heparin with Coumadin has been restarted following the surgery Can be discharged with Lovenox and Coumadin on approval to a facility INR is 1.7 today Will be discharged on Lovenox and Coumadin INR will be checked tomorrow and if it is more than 2 Lovenox can be discontinued and continue with Coumadin (4) PAF (paroxysmal atrial fibrillation): Plan: Rate controlled on metoprolol, continue Coumadin and aspirin have been on hold Continue Heparin drip and Coumadin Heparin has been stopped and Lovenox restarted (5) Coronary artery disease: Plan: -Appears stable, no reports of chest pain -EKG demonstrates an atrial paced rhythm -Continue beta-isaías and statin, patient takes full dose aspirin, hold preoperatively and resume per the discretion of orthopedics -No acute symptoms (6) Ischemic cardiomyopathy: Plan: As above (7) Diastolic dysfunction: Plan: Echo 02/03-EF 35 to 40%, grade 2 static diastolic dysfunction, moderate mitral regurgitation, mild tricuspid regurgitation No sign of volume overload Will resume Lasix (8) History of pacemaker: Plan: -No acute issues (9) Diabetes mellitus, type 2: Plan: -Hgb A1c 6.1 02/2021 -Hold oral agents, Lantus and NovoLog per protocol while hospitalized (10) Cerebrovascular disease: Plan: -Holding aspirin as above -Continue statin (11) Chronic kidney disease stage 3: Plan: -Baseline creatinine runs in the low-mid 1's -Creatinine has been normalized (12) DVT prophylaxis: Plan: -Lovenox and Coumadin will be continued until INR is therapeutic Plan: Awaiting placement Admission and Anticipated Discharge Date Admission Date: March 25, 2021 Subjective 04/01/2021 The patient was seen and examined in telemetry unit He complains of extreme weakness and tiredness Denies any chest pain, palpitation or more shortness of breath No abdominal pain, nausea and or vomiting 04/02/2021 The patient was seen and examined in telemetry unit He remains weak and lethargic but denies any other symptoms He has been waiting to go to inpatient rehab 04/03/2021 The patient was seen and examined in telemetry unit He remains weak and lethargic but denies any other symptoms Denies any chest pain, palpitation or shortness of breath more than usual Will be discharged to [facility] this afternoon Review of Systems Review of Systems: All systems reviewed and are unremarkable except as noted below Musculoskeletal: Generalized weakness without any acute arthritis Neurologic: Alert, awake and oriented x3 Physical Exam Physical Exam: Sitting at the edge of the bed with minimal distress due to weakness and shortness of breath Constitutional: well developed, well nourished, + ill appearing and + obese Eyes: PERRL, conjunctivae normal, anicteric sclerae ENMT: external ear and nose normal, oropharynx normal Neck: trachea midline, no thyromegaly Respiratory: + cough; no respiratory distress Auscultation: + diminished lung sounds and + crackles (Bibasilar crackles); no wheezes Cardiovascular: Rate/Rhythm: regular rate, regular rhythm and + tachycardic Heart Sounds: normal S1 and normal S2; no murmur Extremities: + edema (Trace edema bilaterally) Gastrointestinal (Abdomen): Inspection/Auscultation: + abdomen distended and normal bowel sounds Percussion/Palpation: abdomen soft; abdomen nontender Musculoskeletal: No acute arthritis in any joint Neurologic: Alert, awake and oriented x3. He is generally weak and lethargic. No focal neuro deficit Psychiatric: A+Ox3, euthymic affect Lymphatic: no cervical or axillary lymphadenopathy Results & Data Results & Data ([facility]) Vital Signs (Past 12 Hours) Vital Signs Temp Pulse Pulse Resp BP BP Pulse Ox 04/03/21 11:20 36.7 C 62 17 98/62 L 91 04/03/21 11:08 36.7 C 90 100 H 17 125/76 108/70 98 04/03/21 07:10 36.7 C 104 H 17 125/76 98 04/03/21 03:51 36.7 C 93 H 18 108/70 97 04/03/21 00:00 Pulse Ox 04/03/21 11:20 04/03/21 11:08 04/03/21 07:10 04/03/21 03:51 04/03/21 00:00 99 Laboratory Results Short CBC 04/03/21 Range/Units 08:47 WBC 8.58 (4.8-10.8) K/uL Hgb 10.9 L (14.0-18.0) g/dL Hct 33.7 L (42-52) % Plt Count 236 (130-400) K/uL Medications Administered Current Inpatient Medications Acetaminophen (Acetaminophen 325 Mg Tab) 650 mg PO Q4H PRN PRN Reason: pain/fever Stop: 04/24/21 15:59 Allopurinol (Allopurinol 300 Mg Tab) 300 mg PO HS ANNA Stop: 04/24/21 20:59 Last Admin: 04/02/21 19:35 Dose: 300 mg Documented by: Bisacodyl (Bisacodyl 10 Mg Supp) 10 mg AL DAILY PRN PRN Reason: Constipation Stop: 04/24/21 15:59 Bisacodyl (Bisacodyl 10 Mg Supp) 10 mg AL DAILY PRN PRN Reason: Constipation Stop: 04/28/21 17:37 Dextrose (Dextrose 50% 50 Ml Syringe) 25 - 50 ml IV UD PRN; Protocol PRN Reason: Hypoglycemia Protocol Stop: 04/24/21 15:59 Docusate Sodium (Docusate Sodium 100 Mg Cap) 100 mg PO BID [facility] Stop: 04/28/21 20:59 Last Admin: 04/02/21 19:36 Dose: Not Given Documented by: Enoxaparin Sodium (Enoxaparin 100 Mg/1ml Syr) 100 mg SQ Q12H ANNA Stop: 05/03/21 09:29 Last Admin: 04/03/21 11:15 Dose: 100 mg Documented by: Ferrous Sulfate (Ferrous Sulfate 325 Mg Tab) 325 mg PO Q2D ANNA Stop: 04/25/21 08:59 Last Admin: 04/03/21 08:13 Dose: 325 mg Documented by: Glucagon (Glucagon For Inj 1 Mg Vial) 1 mg SQ UD PRN; Protocol PRN Reason: Hypoglycemia Protocol Stop: 04/24/21 15:59 Glucose (Glucose 10 Tabs/Tube) 4 - 8 tabs PO UD PRN; Protocol PRN Reason: Hypoglycemia Protocol Stop: 04/24/21 15:59 Glucose (Glucose 40% Gel 15 Gm Tube) 15 - 30 gm PO UD PRN; Protocol PRN Reason: Hypoglycemia Protocol Stop: 04/24/21 15:59 Promethazine HCl 12.5 mg/ (Sodium Chloride) 50.5 mls @ 202 mls/hr IV Q6H PRN PRN Reason: Nausea And Vomiting Stop: 04/30/21 02:12 Insulin Aspart (Insulin Aspart 100 Units/Ml 3 Ml Pen) 0 units SC ACHS [facility] Stop: 04/28/21 20:59 Last Admin: 04/03/21 08:52 Dose: 5 units Documented by: Metoprolol Succinate (Metoprolol Succ 25mg Ext Rel Tab) 25 mg PO QAM [facility] Stop: 05/01/21 10:44 Last Admin: 04/03/21 08:13 Dose: 25 mg Documented by: Miscellaneous (Carbohydrates For Hypoglycemia ) 15 - 30 gm PO UD PRN PRN Reason: Hypoglycemia Protocol Stop: 04/24/21 15:59 Last Admin: 03/25/21 20:20 Dose: 15 gm Documented by: Montelukast Sodium (Montelukast Sodium 10 Mg Tablet) 10 mg PO HS [facility] Stop: 04/24/21 20:59 Last Admin: 04/02/21 19:35 Dose: 10 mg Documented by: Multivitamins (Multivitamin Tab) 1 tab PO QAM [facility] Stop: 04/29/21 08:59 Last Admin: 04/03/21 08:13 Dose: 1 tab Documented by: Naloxone HCl (Naloxone Hcl 0.4 Mg/1 Ml Vial/Carp) 0.1 mg IV Q5M PRN PRN Reason: Oversedation/Resp Depression Stop: 04/28/21 17:37 Oxycodone HCl (Oxycodone Hcl Ir 5 Mg Tab (Immediate Release)) 5 mg PO Q4H PRN PRN Reason: Pain Stop: 04/14/21 03:15 Last Admin: 04/03/21 01:24 Dose: 5 mg Documented by: Primidone (Primidone 250 Mg Tab) 500 mg PO [facility] Stop: 04/24/21 20:59 Last Admin: 04/02/21 19:35 Dose: 500 mg Documented by: Rosuvastatin Calcium (Rosuvastatin Calcium 20 Mg Tab) 40 mg PO [facility] Stop: 04/24/21 20:59 Last Admin: 04/02/21 19:34 Dose: 40 mg Documented by: Senna/Docusate Sodium (Docusate Sodium/Senna 50/8.6mg Tab) 2 tab PO [facility] Stop: 04/24/21 20:59 Last Admin: 04/02/21 19:36 Dose: Not Given Documented by: Warfarin Sodium (Warfarin Sod 6 Mg Tab) 6 mg PO DAILY@1600 [facility] Stop: 04/29/21 15:59 Last Admin: 04/02/21 16:31 Dose: 6 mg Documented by:
--- NOTE | 2021-04-04 08:57 | Discharge Summary ---
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 Patient reports he was going to the bathroom when his legs gave out from under him and he fell to the ground. He reports he was unable to get up. EMS was called and patient was brought to the ED for further evaluation. Patient denies striking his head. No preceding lightheadedness or dizziness. Denies loss of consciousness. No associated ch est pain, palpitations, shortness of breath. Reports he otherwise has been feeling well recently. Has chronic lower extremity edema which is unchanged from baseline. Also has chronic exertional shortness of breath and productive cough from COPD which is unchanged as well. No abdominal pain, nausea, vomiting, diarrhea. Denies any other recent illnesses, fevers, chills. No urinary symptoms. In the ED, patient is found to have comminuted intertrochanteric fracture of the left femur. He is hemodynamically stable. Labs are unremarkable/at patient's baseline. Admission Exam Per Admitting Provider Constitutional: WD/WN, vitals as above Eyes: PERRL, conjunctivae normal, anicteric sclerae ENMT: external ear and nose normal, oropharynx normal Respiratory: normal respiratory effort; no respiratory distress Auscultation: + diminished lung sounds Some scattered coarse breath sounds noted in the anterior lung lewis Cardiovascular: Rate/Rhythm: regular rate and regular rhythm Vessels: normal peripheral pulses Extremities: + pedal edema and + edema +2 pitting edema BLE Gastrointestinal (Abdomen): normal bowel sounds, soft, nontender, no hepatosplenomegaly Musculoskeletal: Extremities: no cyanosis and no clubbing LLE shortened and externally rotated, CSM checks intact Skin: no rashes, warm and dry Chronic venous changes BLE Neurologic: PERRL, EOMI, accommodation nl, no face palsy, no dysarthria Psychiatric: A+Ox3, euthymic affect Principal Diagnosis Left hip fracture status post left trochanteric femoral nail, history of pulmonary embolism and DVT, paroxysmal atrial fibrillation, CAD, ischemic cardiomyopathy, type 2 diabetes mellitus Discharge Exam Constitutional well developed, well nourished, + ill appearing and + obese Eyes PERRL, conjunctivae normal, anicteric sclerae ENMT external ear and nose normal, oropharynx normal Neck trachea midline, no thyromegaly Respiratory + cough; no respiratory distress Auscultation: + diminished lung sounds and + crackles (Bibasilar crackles); no wheezes Cardiovascular Rate/Rhythm: regular rate, regular rhythm and + tachycardic Heart Sounds: normal S1 and normal S2; no murmur Extremities: + edema (Trace edema bilaterally) Gastrointestinal (Abdomen) Inspection/Auscultation: + abdomen distended and normal bowel sounds Percussion/Palpation: abdomen soft; abdomen nontender Psychiatric A+Ox3, euthymic affect Lymphatic no cervical or axillary lymphadenopathy Discharge Data Allergies Allergy/AdvReac Type Severity Reaction Status Date / Time albuterol Allergy Severe CHOKING Verified 01/18/21 16:30 SENSATION ipratropium Allergy Severe CHOKING Verified 01/18/21 16:30 SENSATION onion Allergy Intermediate RASH Verified 01/18/21 16:30 levofloxacin Allergy Mild other Verified 01/18/21 16:30 spironolactone AdvReac Severe Problems Unverified 01/18/21 16:30 with breathing atorvastatin AdvReac Intermediate Muscle Pain Verified 01/18/21 16:30 metformin AdvReac Intermediate Diarrhea Verified 01/18/21 16:30 Consultations 03/25/21 12:33 ED Decision to Admit Stat 03/25/21 14:02 Consult Cardiology Routine 03/25/21 16:00 Consult Anesthesiology Routine Consult Orthopedic Surgery Routine Procedures Performed Operation Date: 03/26/21 08:20 <No data on this case meets the specified criteria> Operation Date: 03/28/21 07:30 <No data on this case meets the specified criteria> Operation Date: 03/29/21 16:25 Actual Procedures p Left Trochancteric Femoral Nail for Left Intertrochanteric Hip Fracture(Left) - Erick Woo MD Ordered Studies 03/25/21 09:56 CT abd pelvis wo con Stat CT head/brain wo con Stat CT hip LT wo con Stat 03/29/21 14:30 FL hip LT 2-3V Routine 03/30/21 23:34 CT chest diagnostic wo con Urgent CT head/brain wo con Urgent 03/30/21 23:35 CT humerus RT wo con Urgent Hospital Course (1) Hip fracture, left: Present on admission after a mechanical fall Femur Xray showed possible nondisplaced fracture at the intertrochanteric region of the left hip. CT hip showed Comminuted intertrochanteric fracture of the left femur Appreciate Ortho input and recommendation Pt understood the risk by holding coumadin and subtherapeutic INR such as reccurent blood clot INR was reasonably reversed before the surgical procedure Cardiology on board for cardiac clearance -appreciate cardiology input and recommendation Pt understood that he is at elevated risk for perioperative complications such as CHF, atrial arrhythmia, ME, blood clot and even No additional cardiac testing warranted at this time and agreed to hold coumadin as per cardiology Patient agreed to receive low-dose of vitamin K to reverse INR. He understood the risks such as recurrent blood clot Status post left trochanteric femoral nail for a left intertrochanteric hip fracture on 03/29/[address] Contreras Continue pain control and PT OT as per Ortho Remains stable for the last 2 to 3 days Remains generally weak and getting better with physical therapy Will be transferred to [facility] this afternoon (2) History of pulmonary embolism: Will need to continue Coumadin (3) History of DVT (deep vein thrombosis): Hx of DVT about 2 years agoi and history of subsegmental pulmonary embolism 01/2021 in the setting of subtherapeutic INR Coumadin was on hold prior to surgery and it has been restarted following the procedure He refused to get vitamin K but later on agreed to that and received vitamin K and also FFP prior to surgery INR went back to 1 around surgery and heparin with Coumadin has been restarted following the surgery Can be discharged with Lovenox and Coumadin on approval to a facility INR is 1.7 today Will be discharged on Lovenox and Coumadin INR will be checked tomorrow and if it is more than 2 Lovenox can be discontinued and continue with Coumadin (4) PAF (paroxysmal atrial fibrillation): Rate controlled on metoprolol, continue Coumadin and aspirin have been on hold Continue Heparin drip and Coumadin Heparin has been stopped and Lovenox restarted (5) Coronary artery disease: -Appears stable, no reports of chest pain -EKG demonstrates an atrial paced rhythm -Continue beta-isaías and statin, patient takes full dose aspirin, hold preoperatively and resume per the discretion of orthopedics -No acute symptoms (6) Ischemic cardiomyopathy: As above (7) Diastolic dysfunction: Echo 02/03-EF 35 to 40%, grade 2 static diastolic dysfunction, moderate mitral regurgitation, mild tricuspid regurgitation No sign of volume overload Will resume Lasix (8) History of pacemaker: -No acute issues (9) Diabetes mellitus, type 2: -Hgb A1c 6.1 02/2021 -Hold oral agents, Lantus and NovoLog per protocol while hospitalized (10) Cerebrovascular disease: -Holding aspirin as above -Continue statin (11) Chronic kidney disease stage 3: -Baseline creatinine runs in the low-mid 1's -Creatinine has been normalized (12) DVT prophylaxis: -Lovenox and Coumadin will be continued until INR is therapeutic Awaiting placement Total Time Total Time Spent Total Time Spent (In Minutes): 45 minutes Discharge Plan Discharge Items Patient Disposition: Transfer Inpatient Rehab Fac Reason For Visit: LEFT HIP FRACTURE Discharge Diagnosis: Left hip fracture status post left trochanteric femoral nail, history of pulmonary embolism and DVT, paroxysmal atrial fibrillation, CAD, ischemic cardiomyopathy, type 2 diabetes mellitus Activity: Per Instructions section Weightbearing: Left partial Weightbearing Comment: With walker Non-emergency contact: Surgeon Call non-emergency contact if: your pain is not controlled, your temperature is above 101.5, your wound has increased redness and your wound has increased drainage Follow-up/Referrals: Erick Woo MD [Surgeon] - (Follow-up in 10 to 14 days from the day of surgery for wound check and staple removal.) Ron Mortensen, DO [Primary Care Provider] - Diet: Carb Consistent or DM2 and Heart Healthy Add Attending Provider Instructions: Please take extra precautions to avoid fall Continue Lovenox and Coumadin until your INR is therapeutic there is more than 2 and should be maintained between 2-3 Please have your INR checked tomorrow that is 04/04/2021 Please take your medications as advised Please keep appointment with the orthopedic surgeon Please make an appointment with your primary care physician within 2 weeks following discharge from the facility Addtl Management Coordinator Provider Instructions: U DISCHARGE INSTRUCTIONS: HIP FRACTURE SELF CARE INSTRUCTIONS: A. You are to ambulate with a walker or crutches for approximately 6 weeks. B. You are PARTIAL WEIGHT BEARING on your operative lower extremity for at least 6 weeks. C. Wear low heeled shoes with non-slip soles D. Be sure that your floors are free of things that could trip you throw rugs, electrical cords, and small objects. Avoid wet and waxed floors, especially with crutches/walker/cane. E. Try to walk several times a day with rest periods between. F. You may shower 48 hours after surgery and get the incision area wet, but DO NOT soak or submerge incision area in water. (No baths, swimming pools, hot tubs) G. You may have a large, band-aid like dressing over your incision (Aquacel). This will remain on your incision for 7 days, and then can be removed. You CAN shower with this on. If incision is leaking through the dressing, please call the office . H. Do NOT apply soap or any ointment/lotions directly over incision. I. You may use ice as needed to operative site. SPECIAL CARE INSTRUCTIONS: VERY IMPORTANT TO READ AND REVIEW A. You may be at risk for phlebitis or blood clots. a. Wear surgical stockings (MANDY hose) for 2 weeks after surgery to improve circulation and reduce swelling. b. Resume your Coumadin as directed. c. If you are on Coumadin- you will have daily/weekly blood work to monitor your levels. This will be done by either your family physician/trailers and motor homes salesperson (if you are on Coumadin chronically) versus your orthopedic surgeon. Expect a phone call the day of or the day after your blood work is drawn to adjust your dose accordingly. B. There are a few signs you need to watch for after you are home. Call [facility] at [phone] if you experience any of the following: a. If you have a temperature of 101 degrees or higher. b. Sudden increase in pain in your hip not relieved by rest or pain medication. c. Any fluid or drainage from the incision; redness of the incision. d. Shortness of breath or chest pain. C. Call your physician if: a. Temperature is greater than 101 degrees (F). b. Pain is not relieved by prescribed pain medications. c. Increase drainage or redness from incision. d. Unanswered questions or concerns. D. Pain Medication: a. You will be prescribed pain medication upon discharge that should last till your first post-operative appointment. b. If you experience nausea and/or skin rash, discontinue this medication and contact our office for an alternative med ication. c. Caution- narcotic pain medication can cause constipation. FOLLOW UP VISIT: Please call [facility] at [phone] to schedule a follow up appointment 10-14 days from the date of your surgery date. Pending Studies at Discharge: No Stand-Alone Forms: My [facility] Skilled Items Patient informed of condition?: Yes DNR: No Discharge Level of Care: Skilled Communicable Disease: No Discharge Prognosis: Stable Lines: None Urinary Catheter: No Medications and DC Order Prescriptions: New metoprolol succinate 25 mg Tablet Extended Release 24 Hr 25 mg PO QAM 30 Days Qty: 30 RF: 0 enoxaparin 100 mg/mL Syringe 100 mg subcut Q12H 2 Days Qty: 4 RF: 0 multivitamin with folic acid [Daily-Karla (with folic acid)] 400 mcg Tablet 1 tab PO QAM 30 Days Qty: 30 RF: 0 oxycodone 5 mg Tablet 5 mg PO Q4H PRN (Reason: pain) 5 Days Qty: 15 RF: 0 Continued primidone [Mysoline] 250 mg Tablet 500 mg PO HS RF: 0 nitroglycerin 0.4 mg Tablet, Sublingual 0.4 mg Sublingual UD PRN (Reason: Chest Pain) RF: 0 montelukast [Singulair] 10 mg Tablet 10 mg PO HS RF: 0 rosuvastatin [Crestor] 40 mg Tablet 40 mg PO HS RF: 0 Lantus Solostar U-100 Insulin 100 unit/mL (3 mL) Insulin Pen 18 unit SUBCUT HS RF: 0 ferrous sulfate [iron] 325 mg (65 mg iron) Tablet 325 mg PO Q OTHER DAY RF: 0 aspirin 325 mg Tablet 325 mg PO HS RF: 0 potassium chloride [Klor-Con M20] 20 mEq Tablet,Er Particles/Crystals 20 meq PO HS Qty: 30 RF: 0 Jardiance 10 mg Tablet 10 mg PO HS RF: 0 allopurinol 300 mg Tablet 300 mg PO HS RF: 0 warfarin [Jantoven] 2 mg tablet 6 mg PO DAILY RF: 0 furosemide 40 mg tablet 20 mg PO DAILY RF: 0 Discontinued metoprolol succinate 50 mg Tablet Extended Release 24 Hr 25 mg PO HS RF: 0 Discharge Orders: Discharge Order (Routine); Ordered 04/03/21 Ordered By: Tomy Troy Admission Data Admit Date/Time: 03/25/21 13:19 Attending Provider: Tomy Troy Admit Provider: Lui Martinez Primary Care Provider: Ron Mortensen Other Providers: Lui Martinez ; Casey Escalante ; Nik Orona ; Erick Woo ; [facility] Other Interventions: Discharge Summary Assessment (RN) Last Done: 04/03/21 11:08
== END 2021-04-03 13:22 | DRG 480 ==
LOC: ED 07:34 → 3N 13:19 → SUATTDRO 13:19 → 3N 14:49 → 2S 03-30 23:23

== ENCOUNTER 2021-04-15 16:00 | Inpatient (IN) ==
[2021-04-15] MEDS ORDERED: PIPERACILL/TAZOBAC CONSULT ACTIVE PRN (16:21)
[2021-04-15] MEDS ORDERED: PIPERACILLIN/TAZOBACTAM 4.5 GM in DEXTROSE 5% 100 ML IV ONE (16:21)
[2021-04-15] MEDS ORDERED: MoRPHine SULFATE 2 MG/ML CARP IV STA (16:25)
[2021-04-15] MEDS ORDERED: ACETAMINOPHEN 1,000 MG/100 ML VIAL IV STA (16:25)
--- NOTE | 2021-04-15 16:30 | Emergency Department Note ---
Impression & Plan Decubitus ulcer of sacral area, Ureteral calculus, right, Post-operative state, Atrial fibrillation with rapid ventricular response ED Provider Note NAME: DARREL ETIENNE AGE: 75 SEX: M ARRIVES VIA: Ambulance INFORMANT: Patient, ED PROVIDER(S): Jones Brown MD CHIEF COMPLAINT: hip pain PLAN: Disposition: Admit MEDICAL DECISION MAKING: The patient is a pleasant 75-year-old gentleman with a complex past medical history including IDDM 2, CKD stage III, COPD, nocturnal hypoxia on O2, ischemic cardiomyopathy with EF of 35%, diastolic dysfunction, history of inferior wall OH with severe multivessel CAD not amenable to intervention, paroxysmal atrial fibrillation on Coumadin, history of DVT/PE, history of pericardial effusion status post pericardiocentesis, pleural effusion status post thoracentesis, tachybradycardia syndrome status post PPM, who presents to the emergency department from his longterm facility at [facility] for evaluation worsening left hip and sacral pain in the setting of recent left hip ORIF on 03/30 status post fall suffering intertrochanteric fracture as well as with known sacral decubitus ulcer. The patient reports his pain has been ongoing since he was in the hospital for his surgery but reports it has progressively gotten worse and additionally so today. Patient reports his breathing is at his baseli ne in setting of his history of CHF and COPD. Escalona catheter was placed by SNF prior to transfer to ED for unclear reason. Patient is unaware of having any urinary retention. On arrival the patient is acute on chronically ill-appearing, with heart rate in the 130s in atrial fibrillation with respiratory rate in the 30s and normal O2 saturation on room air. On exam the patient has scattered wheezes and rhonchi. He has tenderness with range of motion of the left hip. Sacrum with unstageable sacral decubitus ulcer with necrotic eschar and foul-smelling odor without overt purulence. Empiric ABX for osteo ordered with Zosyn and Daptomycin. EKG afib with rvr without overt acute ischemia. CXR with interval slight improvement in bibasilar airspace interstitial opacities". WBC and platelets wnl. H/H slightly decreased from 2 days ago. Initial lactate 3.3 however, chemistry without acidosis. Electrolytes unremarkable. LFTs without significant abnormality. Troponin negative/undetectable. BNP increased to 7400 from 4500 in January. ESR and CRP are elevated at 55 and 10.4, respectively. Covid- 19 PCR was negative. UA with WBCs albeit from escalona catheter with epithelia cells and no bacteria. CTA chest negative for PE. Bronchiectasis is unchanged. CT abd/pelvis shows sacral decubitus ulcer, new from from 03/30 with foci of air noted. Slightly improved right hydronephrosis and hydroureter with redemonstration of obstructive calculus in the distal right ureter. Patient agrees with plan for admission. HR improved after ABX and morphine and apap for pain. IVF deferred given patient appears hypervolemic. [facility] for [facility]. Triage Nursing notes reviewed and agree them. Prior medical records reviewed Vital Signs: reviewed and remarkable for tachycardic. Differential diagnosis: Sepsis, UTI, pneumonia, metabolic, electrolyte abnormalities, cardiac sources, intracerebral event, toxicologic, neurologic, as well as other pathologies. ER treatment provided: See below. Diagnostics interpreted by me: ECG: Atrial fibrillation, RVR, 125bpm, no ectopy, no overt ST elevation or depression. Cardiac Monitoring: An order for continuous cardiac monitoring was placed and demonstrated trial fibrillation, RVR, 125bpm,. Laboratory studies: See below Imaging studies: See below Consultation(s): [facility] for [facility]. 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 The patient reports his pain has been ongoing since he was in the hospital for his surgery but reports it has progressively gotten worse and additionally so today. Patient reports his breathing is at his baseline in setting of his history of CHF and COPD. Escalona catheter was placed by SNF prior to transfer to ED for unclear reason. Patient is unaware of having any urinary retention. ROS: See above HPI for pertinent positives & negatives. A total of 10 systems reviewed and were otherwise negative. PAST MEDICAL HISTORY:See Below PAST SURGICAL HISTORY:See Below FAMILY HISTORY:See Below SOCIAL HISTORY:See Below HOME MEDICATIONS:See Below ALLERGIES:See Below VITALS:See Below PHYSICAL EXAMINATION: GENERAL: Awake, alert, acute on chronically ill-appearing, in no distress. HENT: Normocephalic, atraumatic. Oropharynx unremarkable. EYES: Normal conjunctiva. Sclera non-icteric. NECK: Supple. No nuchal rigidity. FROM. No JVD. RESPIRATORY: Scattered wheezes and rhonchi. CARDIAC: Regular rate, normal rhythm. Extremities warm and well perfused. Pulses equal. ABDOMEN: Soft, non-distended. No tenderness to palpation. No rebound or guarding. No masses. RECTAL: Deferred. MUSCULOSKELETAL: Chest examination reveals no tenderness. The back is symmetrical on inspection without obvious abnormality. There is no CVA tenderness to palpation. He has pain with range of motion of the left hip. Sacrum with unstageable sacral decubitus ulcer with necrotic eschar and foul- smelling odor without overt purulence. LOWER EXTREMITIES: Calves are equal size bilaterally and non-tender. No edema. N o discoloration. NEURO: Normal sensorium. No sensory or motor deficits noted. SKIN: No rash or jaundice noted. ED COURSE: Critical Care: I have personally spent greater than 45 minutes of critical care time in the direct management of this patient. This includes bedside care, interpretation of diagnostic studies, and testing, discussion with consultants, patient, and family members, and other required patient management activities. This 45 minutes is in excess of all separately billable procedures. Jones Brown MD Past Med/Surg History Medical History Bronchiectasis Chronic kidney disease stage 3 Chronic left ventricular systolic heart failure Chronic respiratory failure with hypoxia and hypercapnia COPD (chronic obstructive pulmonary disease) Coronary artery disease "S/P inferior OH, severe multivessel disease not amenable to intervention" per 2012 cath Diabetes mellitus, type 2 IDDM Diabetic foot ulcer Diastolic dysfunction GERD (gastroesophageal reflux disease) Gout Hearing deficit BL KOO History of CVA (cerebrovascular accident) "YEARS AGO" - reports he has had a tremor ever since stroke. denies additional residual effects History of depression History of DVT (deep vein thrombosis) "YEARS AGO" ETIOLOGY UNK - ON WARFARIN History of pancreatitis History of pulmonary embolism on care home coumadin History of tachycardia-bradycardia syndrome HLD (hyperlipidemia) Ischemic cardiomyopathy MRSA infection Myocardial Infarction "YEARS AGO" Nephrolithiasis On home oxygen therapy 2 LPM DAILY PRN (secondary to chronic respiratory failure) Osteoarthritis PAD (peripheral artery disease) PAF (paroxysmal atrial fibrillation) DX "years ago" - ON COUMADIN - FOLLOWS W/ DR. CRANE Seizure QUESTIONABLE- EEG 1 WEEK AGO FOR QUESTIONABLE SEIZURE (reported convulsions, loss of consciousness 1 week ago while watching TV) - [place] [facility] - EEG unremarkable Tremor Venous stasis ulcers of both lower extremities Surgical History History of bronchoscopy History of cardiac cath MULTIPLE - NO STENTS [place] (could not recall dates - most recent in system is from 2011 [place]) History of cholecystectomy 2014 History of incision of pericardium pericardial window secondary to pericardial effusion History of pacemaker PLACED 10/2017 FOR TACHY-SARA SYNDROME - [employer] - LAST CHECKED 05/2019 History of tonsillectomy S/P cystoscopy with ureteral stent placement 07/25/2019 [facility] 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 x 17 years Feels Safe at Home: Yes Assistive Devices: Oxygen - at Night and Wheelchair Allergies Allergies Allergy/AdvReac Type Severity Reaction Status Date / Time albuterol Allergy Severe CHOKING Verified 04/15/21 19:16 SENSATION ipratropium Allergy Severe CHOKING Verified 04/15/21 19:16 SENSATION onion Allergy Intermediate RASH Verified 04/15/21 19:16 levofloxacin Allergy Mild other Verified 04/15/21 19:16 spironolactone AdvReac Severe Problems Unverified 04/15/21 19:16 with breathing atorvastatin AdvReac Intermediate Muscle Pain Verified 04/15/21 19:16 metformin AdvReac Intermediate Diarrhea Verified 04/15/21 19:16 Home Meds Home Medications Medication Instructions Recorded Confirmed insulin glargine 100 unit/mL (3 10 unit SUBCUT HS 04/11/18 04/15/21 mL) subcutaneous pen (Lantus Solostar U-100 Insulin) montelukast 10 mg tablet 10 mg PO HS 04/11/18 04/15/21 (Singulair) nitroglycerin 0.4 mg sublingual 0.4 mg SUBLINGUAL UD PRN 04/11/18 04/15/21 tablet primidone 250 mg tablet (Mysoline) 500 mg PO HS 04/11/18 04/15/21 rosuvastatin 40 mg tablet (Crestor) 40 mg PO HS 04/11/18 04/15/21 aspirin 325 mg tablet 325 mg PO HS 08/08/19 04/15/21 ferrous sulfate 325 mg (65 mg 325 mg PO Q OTHER DAY 01/09/20 04/15/21 iron) tablet (iron) empagliflozin 10 mg tablet 10 mg PO HS 10/18/20 04/15/21 (Jardiance) allopurinol 300 mg tablet 300 mg PO HS 03/25/21 04/15/21 acetaminophen 325 mg tablet 650 mg PO Q6 PRN MDD 3g 04/15/21 04/15/21 acetaminophen 325 mg tablet 650 mg PO Q6 PRN MDD 3g 04/15/21 04/15/21 amoxicillin 875 mg-potassium 1 tab PO Q12H 04/15/21 04/15/21 clavulanate 125 mg tablet (Augmentin) ascorbic acid (vitamin C) 1,000 mg 1 g PO BID 04/15/21 04/15/21 tablet (Vitamin C) doxycycline hyclate 100 mg tablet 100 mg PO BID 04/15/21 04/15/21 guaifenesin 600 mg tablet, 600 mg PO Q12H 04/15/21 04/15/21 extended release 12 hr menthol 0.44 %-zinc oxide 20.6 % 1 applic TOPICAL BID 04/15/21 04/15/21 topical ointment (Calmoseptine) oxycodone 5 mg tablet 5 mg PO Q4 PRN 04/15/21 04/15/21 oxycodone 5 mg tablet 10 mg PO Q4H PRN 04/15/21 04/15/21 potassium chloride 20 mEq 20 meq PO Q12 04/15/21 04/15/21 tablet,extended release(part/cryst) (Klor-Con M) protein supplement 1 ea PO BID 04/15/21 04/15/21 sennosides 8.6 mg-docusate sodium 1 tab-cap PO BID 04/15/21 04/15/21 50 mg tablet (Senokot-S) sodium chloride 0.9 % 1 ea CONTINUOUS IV INFUSION UD 04/15/21 04/15/21 sodium hypochlorite 0.125 % 1 applic TOPICAL BID 04/15/21 04/15/21 solution (Dakin's Solution) warfarin 5 mg tablet 5 mg PO QPM 04/15/21 04/15/21 Previous Rx's Medication Instructions Recorded metoprolol succinate 25 mg 25 mg PO QAM 30 Days #30 tab 04/03/21 tablet,extended release 24 hr multivitamin with folic acid 400 1 tab PO QAM 30 Days #30 tab 04/03/21 mcg tablet (Daily-Karla (with folic acid)) Results & Data (ED) Vital Signs Vital Signs - 24 hr 04/15/21 15:51 04/15/21 16:06 04/15/21 16:22 Temperature 36.9 C Temperature Source Oral Pulse Rate 130 H 137 H Pulse Rate [Carotid] Pulse Rate from SpO2 Sensor 135 H Pulse Rhythm Irregular Pulse Rhythm [Carotid] Pulse Strength Normal Pulse Strength [Carotid] Respiratory Rate 32 H 20 Respiratory Effort / Characteristics Labored Labored Respiratory Depth Shallow Respiratory Pattern Regular Blood Pressure 142/87 H 142/87 H Blood Pressure [Right Arm] Blood Pressure Mean 105 105 Blood Pressure Mean [Right Arm] Blood Pressure Position [Right Arm] Pulse Oximetry 99 100 98 Oxygen Delivery Method Room Air Room Air Oxygen Flow Rate Sepsis Recent Fever Within 48 Hours No Sepsis New/Unexplained Change in Mental Status No Sepsis Action Taken by Nursing Physician Notified 04/15/21 17:15 04/15/21 18:05 04/15/21 19:55 Temperature Temperature Source Pulse Rate 148 H 117 H Pulse Rate [Carotid] 116 H Pulse Rate from SpO2 Sensor 180 H 112 H Pulse Rhythm Pulse Rhythm [Carotid] Regular Pulse Strength Pulse Strength [Carotid] Normal Respiratory Rate 18 21 17 Respiratory Effort / Characteristics Non-Labored Respiratory Depth Shallow Respiratory Pattern Blood Pressure 106/72 112/58 L Blood Pressure [Right Arm] 110/59 L Blood Pressure Mean 83 76 Blood Pressure Mean [Right Arm] 76 Blood Pressure Position [Right Arm] Lying Pulse Oximetry 73 L 97 99 Oxygen Delivery Method Room Air Oxygen Flow Rate Sepsis Recent Fever Within 48 Hours Sepsis New/Unexplained Change in Mental Status Sepsis Action Taken by Nursing 04/15/21 20:30 04/15/21 20:39 Temperature Temperature Source Pulse Rate Pulse Rate [Carotid] 108 H Pulse Rate from SpO2 Sensor Pulse Rhythm Pulse Rhythm [Carotid] Pulse Strength Pulse Strength [Carotid] Respiratory Rate 20 20 Respiratory Effort / Characteristics Respiratory Depth Respiratory Pattern Blood Pressure Blood Pressure [Right Arm] 105/73 Blood Pressure Mean Blood Pressure Mean [Right Arm] 83 Blood Pressure Position [Right Arm] Lying Pulse Oximetry 100 97 Oxygen Delivery Method Nasal Cannula Nasal Cannula Oxygen Flow Rate 3 3 Sepsis Recent Fever Within 48 Hours Sepsis New/Unexplained Change in Mental Status Sepsis Action Taken by Nursing Laboratory Data Attestation: I reviewed the patient's lab results. Result diagrams: 04/15/21 17:47 04/15/21 17:47 Lab Results 04/15/21 04/15/21 04/15/21 Range/Units 16:22 16:22 17:30 WBC (4.8-10.8) K/uL RBC (4.7-6.1) M/uL Hgb (14.0-18.0) g/dL Hct (42-52) % MCV (80-100) fL MCH (25-34) pg MCHC (32-36) g/dL RDW Std Deviation (36.4-46.3) fL RDW Coeff of Lizet (11.5-14.5) % Plt Count (130-400) K/uL MPV (7.4-10.4) fL Immature Gran % (Auto) % Neut % (Auto) % Lymph % (Auto) % Wells % (Auto) % Eos % (Auto) % Baso % (Auto) % Neut # (Auto) (1.4-6.5) K/uL Lymph # (Auto) (1.2-3.4) K/uL Wells # (Auto) (0.11-0.59) K/uL Eos # (Auto) (0-0.5) K/uL Baso # (Auto) (0-0.2) K/uL Immature Gran # (Auto) (0.00-0.02) K/uL ESR (0-20) mm/hr PT (9.0-12.0) Seconds INR (0.9-1.1) APTT (21.0-31.0) Seconds PTT Ratio Sodium (136-145) mmol/L Potassium (3.5-5.1) mmol/L Chloride (98-107) mmol/L Carbon Dioxide (21-32) mmol/L Anion Gap (3-11) BUN (7-18) mg/dl Creatinine (0.6-1.4) mg/dl Est Cr Clr Drug Dosing Est GFR ( Amer) ml/min Est GFR (Non-Af Amer) ml/min BUN/Creatinine Ratio (10-20) Glucose (70-99) mg/dl Lactate (0.4-2.0) mmol/L Calcium (8.5-10.1) mg/dl Magnesium (1.8-2.4) mg/dl Total Bilirubin (0.2-1) mg/dl AST (15-37) U/L ALT (12-78) U/L Alkaline Phosphatase (45-117) U/L Troponin I (0-0.045) ng/ml C-Reactive Protein (0-0.29) mg/dl NT-Pro-B Natriuret Pep (0-900) pg/ml Total Protein (6.4-8.2) gm/dl Albumin (3.4-5.0) gm/dl Globulin (2.5-4.0) gm/dl Albumin/Globulin Ratio (0.9-2) Procalcitonin (0-0.5) ng/ml Urine Color Yellow Urine Appearance Cloudy A (Clear) Urine pH 6.0 (4.5-7.5) Ur Specific [place] 1.022 (1.000-1.030) Urine Protein 1+ H (Negative) Urine Glucose (UA) 3+ H (Negative) Urine Ketones 1+ H (Negative) Urine Blood 3+ H (Negative) Urine Nitrite Negative (Negative) Urine Bilirubin Negative (Negative) Urine Urobilinogen Negative (Negative) Ur Leukocyte Esterase 1+ H (Negative) Urine WBC (Auto) >30 H (0-5) /hpf Urine RBC (Auto) 0-4 (0-4) /hpf U Hyaline Cast (Auto) 1-5 (0-5) /lpf U Epithel Cells (Auto) 10-20 H (0-5) /lpf Urine Bacteria (Auto) Negative (Negative) Urine Yeast Budding A (None Prsent) COVID-19 Eval Order Covid19 at [facility] SARS-CoV-2 (PCR) NEGATIVE (Negative) 04/15/21 04/15/21 04/15/21 Range/Units 17:47 17:47 17:47 WBC (4.8-10.8) K/uL RBC (4.7-6.1) M/uL Hgb (14.0-18.0) g/dL Hct (42-52) % MCV (80-100) fL MCH (25-34) pg MCHC (32-36) g/dL RDW Std Deviation (36.4-46.3) fL RDW Coeff of Lizet (11.5-14.5) % Plt Count (130-400) K/uL MPV (7.4-10.4) fL Immature Gran % (Auto) % Neut % (Auto) % Lymph % (Auto) % Wells % (Auto) % Eos % (Auto) % Baso % (Auto) % Neut # (Auto) (1.4-6.5) K/uL Lymph # (Auto) (1.2-3.4) K/uL Wells # (Auto) (0.11-0.59) K/uL Eos # (Auto) (0-0.5) K/uL Baso # (Auto) (0-0.2) K/uL Immature Gran # (Auto) (0.00-0.02) K/uL ESR 55 H (0-20) mm/hr PT (9.0-12.0) Seconds INR (0.9-1.1) APTT (21.0-31.0) Seconds PTT Ratio Sodium 139 (136-145) mmol/L Potassium 4.1 D (3.5-5.1) mmol/L Chloride 100 (98-107) mmol/L Carbon Dioxide 21 (21-32) mmol/L Anion Gap 17.0 H (3-11) BUN 25 H (7-18) mg/dl Creatinine 1.11 (0.6-1.4) mg/dl Est Cr Clr Drug Dosing Not Reportable Est GFR ( Amer) 75.9 ml/min Est GFR (Non-Af Amer) 65.5 ml/min BUN/Creatinine Ratio 22.3 H (10-20) Glucose 169 H (70-99) mg/dl Lactate (0.4-2.0) mmol/L Calcium 9.2 (8.5-10.1) mg/dl Magnesium 1.9 (1.8-2.4) mg/dl Total Bilirubin 0.5 (0.2-1) mg/dl AST 64 H (15-37) U/L ALT 33 (12-78) U/L Alkaline Phosphatase 151 H (45-117) U/L Troponin I < 0.015 (0-0.045) ng/ml C-Reactive Protein 10.40 H (0-0.29) mg/dl NT-Pro-B Natriuret Pep 7479 H (0-900) pg/ml Total Protein 7.4 (6.4-8.2) gm/dl Albumin 2.0 L (3.4-5.0) gm/dl Globulin 5.4 H (2.5-4.0) gm/dl Albumin/Globulin Ratio 0.4 L (0.9-2) Procalcitonin 0.10 (0-0.5) ng/ml Urine Color Urine Appearance (Clear) Urine pH (4.5-7.5) Ur Specific [place] (1.000-1.030) Urine Protein (Negative) Urine Glucose (UA) (Negative) Urine Ketones (Negative) Urine Blood (Negative) Urine Nitrite (Negative) Urine Bilirubin (Negative) Urine Urobilinogen (Negative) Ur Leukocyte Esterase (Negative) Urine WBC (Auto) (0-5) /hpf Urine RBC (Auto) (0-4) /hpf U Hyaline Cast (Auto) (0-5) /lpf U Epithel Cells (Auto) (0-5) /lpf Urine Bacteria (Auto) (Negative) Urine Yeast (None Prsent) COVID-19 Eval Order SARS-CoV-2 (PCR) (Negative) 04/15/21 04/15/21 04/15/21 Range/Units 17:47 17:47 17:50 WBC 7.16 (4.8-10.8) K/uL RBC 3.14 L (4.7-6.1) M/uL Hgb 9.5 L (14.0-18.0) g/dL Hct 30.2 L (42-52) % MCV 96.2 (80-100) fL MCH 30.3 (25-34) pg MCHC 31.5 L (32-36) g/dL RDW Std Deviation 57.6 H (36.4-46.3) fL RDW Coeff of Lizet 16.4 H (11.5-14.5) % Plt Count 193 (130-400) K/uL MPV 10.7 H (7.4-10.4) fL Immature Gran % (Auto) 0.3 % Neut % (Auto) 91.3 % Lymph % (Auto) 4.9 % Wells % (Auto) 3.4 % Eos % (Auto) 0.0 % Baso % (Auto) 0.1 % Neut # (Auto) 6.54 H (1.4-6.5) K/uL Lymph # (Auto) 0.35 L (1.2-3.4) K/uL Wells # (Auto) 0.24 (0.11-0.59) K/uL Eos # (Auto) 0.00 (0-0.5) K/uL Baso # (Auto) 0.01 (0-0.2) K/uL Immature Gran # (Auto) 0.02 (0.00-0.02) K/uL ESR (0-20) mm/hr PT 12.9 H (9.0-12.0) Seconds INR 1.3 H (0.9-1.1) APTT 31.5 H (21.0-31.0) Seconds PTT Ratio 1.2 Sodium (136-145) mmol/L Potassium (3.5-5.1) mmol/L Chloride (98-107) mmol/L Carbon Dioxide (21-32) mmol/L Anion Gap (3-11) BUN (7-18) mg/dl Creatinine (0.6-1.4) mg/dl Est Cr Clr Drug Dosing Est GFR ( Amer) ml/min Est GFR (Non-Af Amer) ml/min BUN/Creatinine Ratio (10-20) Glucose (70-99) mg/dl Lactate 3.3 H* (0.4-2.0) mmol/L Calcium (8.5-10.1) mg/dl Magnesium (1.8-2.4) mg/dl Total Bilirubin (0.2-1) mg/dl AST (15-37) U/L ALT (12-78) U/L Alkaline Phosphatase (45-117) U/L Troponin I (0-0.045) ng/ml C-Reactive Protein (0-0.29) mg/dl NT-Pro-B Natriuret Pep (0-900) pg/ml Total Protein (6.4-8.2) gm/dl Albumin (3.4-5.0) gm/dl Globulin (2.5-4.0) gm/dl Albumin/Globulin Ratio (0.9-2) Procalcitonin (0-0.5) ng/ml Urine Color Urine Appearance (Clear) Urine pH (4.5-7.5) Ur Specific [place] (1.000-1.030) Urine Protein (Negative) Urine Glucose (UA) (Negative) Urine Ketones (Negative) Urine Blood (Negative) Urine Nitrite (Negative) Urine Bilirubin (Negative) Urine Urobilinogen (Negative) Ur Leukocyte Esterase (Negative) Urine WBC (Auto) (0-5) /hpf Urine RBC (Auto) (0-4) /hpf U Hyaline Cast (Auto) (0-5) /lpf U Epithel Cells (Auto) (0-5) /lpf Urine Bacteria (Auto) (Negative) Urine Yeast (None Prsent) COVID-19 Eval Order SARS-CoV-2 (PCR) (Negative) 04/15/21 Range/Units 20:33 WBC (4.8-10.8) K/uL RBC (4.7-6.1) M/uL Hgb (14.0-18.0) g/dL Hct (42-52) % MCV (80-100) fL MCH (25-34) pg MCHC (32-36) g/dL RDW Std Deviation (36.4-46.3) fL RDW Coeff of Lizet (11.5-14.5) % Plt Count (130-400) K/uL MPV (7.4-10.4) fL Immature Gran % (Auto) % Neut % (Auto) % Lymph % (Auto) % Wells % (Auto) % Eos % (Auto) % Baso % (Auto) % Neut # (Auto) (1.4-6.5) K/uL Lymph # (Auto) (1.2-3.4) K/uL [place] # (Auto) (0.11-0.59) K/uL Eos # (Auto) (0-0.5) K/uL Baso # (Auto) (0-0.2) K/uL Immature Gran # (Auto) (0.00-0.02) K/uL ESR (0-20) mm/hr PT (9.0-12.0) Seconds INR (0.9-1.1) APTT (21.0-31.0) Seconds PTT Ratio Sodium (136-145) mmol/L Potassium (3.5-5.1) mmol/L Chloride (98-107) mmol/L Carbon Dioxide (21-32) mmol/L Anion Gap (3-11) BUN (7-18) mg/dl Creatinine (0.6-1.4) mg/dl Est Cr Clr Drug Dosing Est GFR ( Amer) ml/min Est GFR (Non-Af Amer) ml/min BUN/Creatinine Ratio (10-20) Glucose (70-99) mg/dl Lactate 2.1 H* (0.4-2.0) mmol/L Calcium (8.5-10.1) mg/dl Magnesium (1.8-2.4) mg/dl Total Bilirubin (0.2-1) mg/dl AST (15-37) U/L ALT (12-78) U/L Alkaline Phosphatase (45-117) U/L Troponin I (0-0.045) ng/ml C-Reactive Protein (0-0.29) mg/dl NT-Pro-B Natriuret Pep (0-900) pg/ml Total Protein (6.4-8.2) gm/dl Albumin (3.4-5.0) gm/dl Globulin (2.5-4.0) gm/dl Albumin/Globulin Ratio (0.9-2) Procalcitonin (0-0.5) ng/ml Urine Color Urine Appearance (Clear) Urine pH (4.5-7.5) Ur Specific [place] (1.000-1.030) Urine Protein (Negative) Urine Glucose (UA) (Negative) Urine Ketones (Negative) Urine Blood (Negative) Urine Nitrite (Negative) Urine Bilirubin (Negative) Urine Urobilinogen (Negative) Ur Leukocyte Esterase (Negative) Urine WBC (Auto) (0-5) /hpf Urine RBC (Auto) (0-4) /hpf U Hyaline Cast (Auto) (0-5) /lpf U Epithel Cells (Auto) (0-5) /lpf Urine Bacteria (Auto) (Negative) Urine Yeast (None Prsent) COVID-19 Eval Order SARS-CoV-2 (PCR) (Negative) Administered Medications Diltiazem HCl 125 mg/ Dextrose 125 mls @ 5 mls/hr IV .Q24H ANNA; Protocol Stop: 05/16/21 00:59 Last Admin: 04/16/21 02:44 Dose: 5 mg/hr, 5 mls/hr Documented by: [id number] Cosigned by: [id number] Piperacillin Sod/Tazobactam (Sod 3.375 gm/ Dextrose) 115 mls @ 28.75 mls/hr IV Q8H ANNA; Protocol Stop: 04/23/21 01:29 Last Admin: 04/16/21 04:11 Dose: 28.8 mls/hr Documented by: [id number] Discontinued Medications Acetaminophen (Acetaminophen 500 Mg Tab) Confirm Administered Dose 1,000 mg .ROUTE .STK-MED ONE Stop: 04/15/21 22:10 Last Admin: 04/15/21 22:14 Dose: 1,000 mg Documented by: [id number] Diltiazem HCl (Diltiazem Hcl 5 Mg/Ml 5 Ml Vial) 5 mg IV NOW STA Stop: 04/16/21 00:47 Last Admin: 04/16/21 04:10 Dose: 5 mg Documented by: [id number] Cosigned by: [id number] Piperacillin Sod/Tazobactam (Sod 4.5 gm/ Dextrose) 120 mls @ 200 mls/hr IV NOW ONE; Protocol Stop: 04/15/21 16:56 Last Infusion: 04/16/21 03:49 Dose: 0 mls/hr Documented by: [id number] Admin: 04/15/21 18:07 Dose: 200 mls/hr Documented by: [id number] Acetaminophen (Ofirmev) 1,000 mg in 100 mls @ 400 mls/hr IV NOW STA Stop: 04/15/21 16:39 Last Infusion: 04/16/21 03:49 Dose: 0 mls/hr Documented by: [id number] Admin: 04/15/21 17:18 Dose: 400 mls/hr Documented by: [id number] Daptomycin 550 mg/ Syringe 11 mls @ 5.5 mls/min IV NOW ONE; Protocol Stop: 04/15/21 17:46 Last Admin: 04/15/21 18:08 Dose: 5.5 mls/min Documented by: [id number] Ioversol (Optiray 320 125ml) 116 ml IV ONCE ONE Stop: 04/15/21 20:11 Last Admin: 04/15/21 20:11 Dose: 116 ml Documented by: [id number] Metoprolol Tartrate (Metoprolol Tartrate 1 Mg/Ml Vial) 5 mg IV NOW STA Stop: 04/15/21 21:56 Last Admin: 04/15/21 22:14 Dose: 5 mg Documented by: [id number] Morphine Sulfate (Morphine Sulfate 2 Mg/Ml Carp) 2 mg IV NOW STA Stop: 04/15/21 16:26 Last Admin: 04/15/21 17:18 Dose: 2 mg Documented by: [id number] Imaging Data Radiologist's Impression: Chest X-Ray 04/15/21 16:22 XR chest 1V portable INDICATION: [place] ^SEPSIS . TECHNIQUE: Single frontal radiograph of the chest was obtained. Comparison: Comparison is made to chest one view 03/30/2021 FINDINGS: Stable dual lead pacemaker. Cardiomegaly is noted. Bibasilar airspace and interstitial opacities are slightly improved compared to the prior exam. No evidence of pleural effusion or pneumothorax. IMPRESSION: Interval slight improvement in bibasilar airspace interstitial opacities. ACT 112: Negative or not required by law. Electronically signed by: Oleg Fitch M.D. 04/15/2021 5:26 PM Abdomen/Pelvis CT 04/15/21 16:25 CT abd pelvis IV con only CLINICAL INDICATION: [place] ^sepsis, sacral decub, eval for osteo. TECHNIQUE: Helical axial images of the abdomen and pelvis were obtained and displayed at 5 and 1 mm intervals. Automated dose lowering techniques and/or adjustment according to patient size were utilized for this exam. This exam was performed with intravenous contrast. COMPARISON: Comparison is made to CT abdomen and pelvis 03/25/2021 FINDINGS: Lower chest: For findings above the diaphragm, please see CT chest performed same day. Liver: Unremarkable. No focal lesions are seen. Gallbladder and biliary tree: Patient is status post cholecystectomy. Physiologic prominence of the biliary ducts is noted. Pancreas: Unremarkable, no focal lesions. Spleen: Unremarkable. Adrenals: Unremarkable. Kidneys and ureters: Mild right hydronephrosis, improved from prior exam. Redemonstration of obstructing distal ureter stone on the right. Again noted is perinephric stranding with focal densities in the perinephric fat. Bladder: [place] catheter is seen. Reproductive organs: Prostatomegaly is seen. Bowel: A hiatal hernia is seen. The appendix is unremarkable. Lymph nodes Retroperitoneal: Subcentimeter nodes are seen and retroperitoneal stations. Mesenteric: Unremarkable. Pelvic: Subcentimeter lymph nodes are noted. Peritoneum: Scattered fat stranding is seen. Vessels: Atherosclerotic calcifications are seen. Abdominal wall: A tiny umbilical helical hernia is seen. There is a left fat-c ontaining inguinal hernia. Foci of air are noted in the soft tissues overlying the sacrum, with surrounding fat stranding. Bones: Degenerative changes in the visualized spine. Status post bonita fixation of left intertrochanteric fracture. IMPRESSION: 1. Sacral decubitus ulcer, new from prior exam, with foci of air noted. 2. Slightly improved right hydronephrosis and hydroureter with redemonstration of obstructive calculus in the distal right ureter. 3. Stable masses in the bilateral perirenal fat. 4. Additional findings as above. ACT 112: Negative or not required by law. Electronically signed by: Oleg Fitch M.D. 04/15/2021 8:32 PM Chest CTA 04/15/21 16:25 CT angio chest PE protocol INDICATION: [place] ^C7 CTCN ^sob, tachycardia, h/o dvt/pe, r/o PE. TECHNIQUE: Multidetector row helical CT of the chest was performed. Coronal and sagittal reformations were obtained. Automated dose lowering techniques and/or adjustment according to patient size were utilized for this exam. Comparison: Comparison is made to CT thorax 03/30/2021 FINDINGS: Lungs and pleura: There is bibasilar atelectasis and bronchiectasis most prominent in the left lower lobe. No consolidation is seen. There are small bilateral pleural effusions. Heart and pericardium: Cardiomegaly is seen with biatrial enlargement. Vessels: No evidence of pulmonary embolism. Moderate atherosclerotic calcifications noted. Mediastinum and betito: Subcentimeter lymph nodes are seen. Chest wall and lower neck: Unremarkable. Abdomen: For findings below the diaphragm, please refer to CT of the abdomen dated the same. Bones: Old healed rib fractures are seen bilaterally. A bone island is seen in the inferior aspect of the T1 vertebral body. IMPRESSION: No evidence of pulmonary embolism. Bronchiectasis is unchanged from prior exam. ACT 112: Negative or not required by law. Electronically signed by: Oleg Fitch M.D. 04/15/2021 8:25 PM Discharge Plan Visit Data Chief Complaint: Hip Pain Stated Complaint: HIP PAIN ED Provider: Jones Brown Discharge Problem: Decubitus ulcer of sacral area, Ureteral calculus, right, Post-operative state, Atrial fibrillation with rapid ventricular response Discharge Instructions Interventions: ED Discharge Assessment Last Done: 04/16/21 01:00 Discharge Problem: Decubitus ulcer of sacral area Qualifiers: Pressure injury stage: unstageable Qualified Code(s): L89.150 - Pressure ulcer of sacral region, unstageable
[2021-04-15] MEDS ORDERED: DAPTOMYCIN IV ONE (17:20)
--- NOTE | 2021-04-15 17:28 | XRay Report ---
XR chest 1V portable INDICATION: [place] ^SEPSIS . TECHNIQUE: Single frontal radiograph of the chest was obtained. Comparison: Comparison is made to chest one view 03/30/2021 FINDINGS: Stable dual lead pacemaker. Cardiomegaly is noted. Bibasilar airspace and interstitial opacities are slightly improved compared to the prior exam. No evidence of pleural effusion or pneumothorax. IMPRESSION: Interval slight improvement in bibasilar airspace interstitial opacities. ACT 112: Negative or not required by law. Electronically signed by: Oleg Fitch M.D. 04/15/2021 5:26 PM
[2021-04-15] MEDS ORDERED: DAPTOmycin 550 MG in SYRINGE 0 ML IV ONE (17:45)
[2021-04-15 17:56] LABS: Appearance Urine Cloudy (Clear); Bacteria Urine Automated Negative (Negative); Bilirubin Urine Negative (Negative); Blood Urine 3+ (Negative); Color Urine Yellow; Glucose Urine UA 3+ (Negative); Ketones Urine 1+ (Negative); Leukocyte Esterase Urine 1+ (Negative); Nitrite Urine Negative (Negative); Protein Urine 1+ (Negative); Specific Gravity Urine 1.022 (1.000-1.030); Urobilinogen Urine Negative (Negative); WBC Urine Automated >30 /hpf (0-5)
[2021-04-15 18:11] LABS: Basophils # (auto) 0.01 K/uL (0-0.2); Basophils % (auto) 0.1 %; Hematocrit (blood only) 30.2 % (42-52); Hemoglobin 9.5 g/dL (14.0-18.0); Immature Granulocytes # (auto) 0.02 K/uL (0.00-0.02); Immature Granulocytes % (auto) 0.3 %; Lymphocytes # (auto) 0.35 K/uL (1.2-3.4); Lymphocytes % (auto) 4.9 %; Mean Corpuscular Hemoglobin 30.3 pg (25-34); Mean Corpuscular Hgb Conc 31.5 g/dL (32-36); Mean Corpuscular Volume 96.2 fL (80-100); Mean Platelet Volume 10.7 fL (7.4-10.4); Monocytes # (auto) 0.24 K/uL (0.11-0.59); Monocytes % (auto) 3.4 %; Neutrophils # (auto) 6.54 K/uL (1.4-6.5); Neutrophils % (auto) 91.3 %; Platelet Count 193 K/uL (130-400); RDW Coefficient of Variation 16.4 % (11.5-14.5); RDW Standard Deviation 57.6 fL (36.4-46.3); Red Blood Count 3.14 M/uL (4.7-6.1); White Blood Count 7.16 K/uL (4.8-10.8)
[2021-04-15 18:17] LABS: RBC Urine Automated 0-4 /hpf (0-4)
[2021-04-15 18:22] LABS: INR 1.3 (0.9-1.1); Partial Thromboplastin Ratio 1.2; Partial Thromboplastin Time 31.5 Seconds (21.0-31.0); Prothrombin Time 12.9 Seconds (9.0-12.0)
[2021-04-15 18:53] LABS: Alanine Aminotransferase 33 U/L (12-78); Albumin Globulin Ratio 0.4 (0.9-2); Alkaline Phosphatase 151 U/L (45-117); Aspartate Aminotransferase 64 U/L (15-37); BUN Creatinine Ratio 22.3 (10-20); Bilirubin,Total 0.5 mg/dl (0.2-1); Blood Urea Nitrogen 25 mg/dl (7-18); Calcium 9.2 mg/dl (8.5-10.1); Carbon Dioxide 21 mmol/L (21-32); Chloride 100 mmol/L (98-107); Est GFR (African American) 75.9 ml/min; Est GFR (Non-African American) 65.5 ml/min; Globulin 5.4 gm/dl (2.5-4.0); Glucose 169 mg/dl (70-99); Magnesium 1.9 mg/dl (1.8-2.4); NT Pro B Type Natriuretic Pept 7479 pg/ml (0-900); Potassium 4.1 mmol/L (3.5-5.1); Sodium 139 mmol/L (136-145); Total Protein 7.4 gm/dl (6.4-8.2); Troponin I < 0.015 ng/ml (0-0.045)
[2021-04-15] MEDS ORDERED: OPTIRAY 320 125ml IV ONE (20:10)
--- NOTE | 2021-04-15 20:26 | CT Scan Report ---
CT angio chest PE protocol INDICATION: [place] ^C7 CTCN ^sob, tachycardia, h/o dvt/pe, r/o PE. TECHNIQUE: Multidetector row helical CT of the chest was performed. Coronal and sagittal reformations were obtained. Automated dose lowering techniques and/or adjustment according to patient size were u tilized for this exam. Comparison: Comparison is made to CT thorax 03/30/2021 FINDINGS: Lungs and pleura: There is bibasilar atelectasis and bronchiectasis most prominent in the left lower lobe. No consolidation is seen. There are small bilateral pleural effusions. Heart and pericardium: Cardiomegaly is seen with biatrial enlargement. Vessels: No evidence of pulmonary embolism. Moderate atherosclerotic calcifications noted. Mediastinum and betito: Subcentimeter lymph nodes are seen. Chest wall and lower neck: Unremarkable. Abdomen: For findings below the diaphragm, please refer to CT of the abdomen dated the same. Bones: Old healed rib fractures are seen bilaterally. A bone island is seen in the inferior aspect of the T1 vertebral body. IMPRESSION: No evidence of pulmonary embolism. Bronchiectasis is unchanged from prior exam. ACT 112: Negative or not required by law. Electronically signed by: Oleg Fitch M.D. 04/15/2021 8:25 PM
--- NOTE | 2021-04-15 20:33 | CT Scan Report ---
CT abd pelvis IV con only CLINICAL INDICATION: [place] ^sepsis, sacral decub, eval for osteo. TECHNIQUE: Helical axial images of the abdomen and pelvis were obtained and displayed at 5 and 1 mm i ntervals. Automated dose lowering techniques and/or adjustment according to patient size were utilize d for this exam. This exam was performed with intravenous contrast. COMPARISON: Comparison is made to CT abdomen and pelvis 03/25/2021 FINDINGS: Lower chest: For findings above the diaphragm, please see CT chest performed same day. Liver: Unremarkable. No focal lesions are seen. Gallbladder and biliary tree: Patient is status post cholecystectomy. Physiologic prominence of the b iliary ducts is noted. Pancreas: Unremarkable, no focal lesions. Spleen: Unremarkable. Adrenals: Unremarkable. Kidneys and ureters: Mild right hydronephrosis, improved from prior exam. Redemonstration of obstruct ing distal ureter stone on the right. Again noted is perinephric stranding with focal densities in th e perinephric fat. Bladder: Cisneros catheter is seen. Reproductive organs: Prostatomegaly is seen. Bowel: A hiatal hernia is seen. The appendix is unremarkable. Lymph nodes Retroperitoneal: Subcentimeter nodes are seen and retroperitoneal stations. Mesenteric: Unremarkable. Pelvic: Subcentimeter lymph nodes are noted. Peritoneum: Scattered fat stranding is seen. Vessels: Atherosclerotic calcifications are seen. Abdominal wall: A tiny umbilical helical hernia is seen. There is a left fat-containing inguinal rios ia. Foci of air are noted in the soft tissues overlying the sacrum, with surrounding fat stranding. Bones: Degenerative changes in the visualized spine. Status post bonita fixation of left intertrochanter ic fracture. IMPRESSION: 1. Sacral decubitus ulcer, new from prior exam, with foci of air noted. 2. Slightly improved right hydronephrosis and hydroureter with redemonstration of obstructive calcul us in the distal right ureter. 3. Stable masses in the bilateral perirenal fat. 4. Additional findings as above. ACT 112: Negative or not required by law. Electronically signed by: Oleg Fitch M.D. 04/15/2021 8:32 PM
--- NOTE | 2021-04-15 21:30 | History & Physical Report ---
Date of Service April 15, 2021 Assessment & Plan (1) Sepsis: Plan: Sepsis secondary to worsening/new sacral decubitus ulcer that is unstageable and foul-smelling. This is most likely source of sepsis with blood cultures pending. He also has a right ureteral stone that is obstructing the ureter with persistent hydronephrosis and hydroureter. Continue broad-spectrum antibiotics with Dapto and Zosyn which was started in the ER. Lactate is elevated. IV fluids for resuscitation cautiously in the setting of poor ejection fraction. (2) PAF (paroxysmal atrial fibrillation): Plan: Currently in rapid ventricular response secondary to sepsis. IV fluids, broad- spectrum antibiotics. With heart rate jumping into the 150s and 160s he was started on diltiazem. Also having some issues on admission with IV access. Continue IV fluids and diltiazem drip with close monitoring in PCU. (3) Decubitus ulcer of sacral area: Plan: Foul-smelling, unstageable. General surgery consulted. Wound nurse consulted. Turn every 2 and keep him off this area. (4) Ureteral calculus, right: Plan: Consult urology, hydrate. Would consider adding Flomax once he is more hemodynamically stable and resuscitated from a sepsis standpoint. (5) Post-operative state: Plan: Underwent left trochanteric femoral nail of left hip fracture by Dr. Woo on 03/29/2021. He should be partial weightbearing for 6 weeks postop. PT/OT to assess prior to returning to [facility]. Continue pain control efforts. (6) Diabetes mellitus, type 2: Plan: Hold home oral medications. Continue with basal bolus insulin. As patient is currently n.p.o. first dose of glargine is scheduled for this evening at 2100. (7) Ischemic cardiomyopathy: Plan: Chronic, stable. Patient is euvolemic to dry on exam and no evidence of acute coronary syndrome. (8) Coronary artery disease: Plan: Chronic, stable, continue current medical management (9) Chronic kidney disease stage 3: Plan: Creatinine is at baseline 1.1 (10) DVT prophylaxis: Plan: warfarin, currently subtherapeutic. Add heparin Full Code Dispo-to [facility] of Present Illness Chief Complaint: Worsening left hip and sacral pain Primary Care Provider: [facility] 75-year-old man presents with worsening left hip and sacral pain in the setting of recent left hip ORIF on 03/30 status post fall suffering intertrochanteric fracture and with known sacral decubitus ulcer. My history is limited from the patient who is having some increased respiratory distress and somewhat frustrated with questionable sundowning. Per ER notes the patient reports his pain has been going on since he was in the hospital for his surgery but has been gotten progressively worse at [facility] where he is currently a resident. Cisneros catheter was [facility] by jail staff prior to the emergency department today for an unclear reason. He arrived to the ER with chronic atrial fibrillation and rapid ventricular response without chest pain. White blood cell count and platelets are within normal limits. Of the chest CT was negative for PE bronchiectasis unchanged. CT abdomen pelvis reveals sacral decubitus ulcer new from 03/30 with foci of air noted. There was a slightly improved right hydronephrosis and hydroureter with redemonstration of obstructive calculus in the distal right ureter. Obstructive calculus was also present and earlier CT a couple weeks ago. Does not appear patient was seen by urology. Reports right-sided flank pain. Allergies Allergy/AdvReac Type Severity Reaction Status Date / Time albuterol Allergy Severe CHOKING Verified 04/15/21 19:16 SENSATION ipratropium Allergy Severe CHOKING Verified 04/15/21 19:16 SENSATION onion Allergy Intermediate RASH Verified 04/15/21 19:16 levofloxacin Allergy Mild other Verified 04/15/21 19:16 spironolactone AdvReac Severe Problems Unverified 04/15/21 19:16 with breathing atorvastatin AdvReac Intermediate Muscle Pain Verified 04/15/21 19:16 metformin AdvReac Intermediate Diarrhea Verified 04/15/21 19:16 Home Medications Medication Instructions Recorded Confirmed Type insulin glargine 100 unit/mL (3 10 unit SUBCUT HS 04/11/18 04/15/21 History mL) subcutaneous pen (Lantus Solostar U-100 Insulin) montelukast 10 mg tablet 10 mg PO HS 04/11/18 04/15/21 History (Singulair) nitroglycerin 0.4 mg sublingual 0.4 mg SUBLINGUAL UD PRN 04/11/18 04/15/21 History tablet primidone 250 mg tablet (Mysoline) 500 mg PO HS 04/11/18 04/15/21 History rosuvastatin 40 mg tablet (Crestor) 40 mg PO HS 04/11/18 04/15/21 History aspirin 325 mg tablet 325 mg PO HS 08/08/19 04/15/21 History ferrous sulfate 325 mg (65 mg 325 mg PO Q OTHER DAY 01/09/20 04/15/21 History iron) tablet (iron) empagliflozin 10 mg tablet 10 mg PO HS 10/18/20 04/15/21 History (Jardiance) allopurinol 300 mg tablet 300 mg PO HS 03/25/21 04/15/21 History metoprolol succinate 25 mg 25 mg PO QAM 30 Days #30 tab 04/03/21 04/15/21 Rx tablet,extended release 24 hr multivitamin with folic acid 400 1 tab PO QAM 30 Days #30 tab 04/03/21 04/15/21 Rx mcg tablet (Daily-Karla (with folic acid)) acetaminophen 325 mg tablet 650 mg PO Q6 PRN MDD 3g 04/15/21 04/15/21 History amoxicillin 875 mg-potassium 1 tab PO Q12H 04/15/21 04/15/21 History clavulanate 125 mg tablet (Augmentin) ascorbic acid (vitamin C) 1,000 mg 1 g PO BID 04/15/21 04/15/21 History tablet (Vitamin C) doxycycline hyclate 100 mg tablet 100 mg PO BID 04/15/21 04/15/21 History guaifenesin 600 mg tablet, 600 mg PO Q12H 04/15/21 04/15/21 History extended release 12 hr oxycodone 5 mg tablet 5 mg PO Q4 PRN 04/15/21 04/15/21 History potassium chloride 20 mEq 20 meq PO DAILY 04/15/21 04/16/21 History tablet,extended release(part/cryst) (Klor-Con M) sennosides 8.6 mg-docusate sodium 1 tab-cap PO BID 04/15/21 04/15/21 History 50 mg tablet (Senokot-S) warfarin 5 mg tablet 5 mg PO QPM 04/15/21 04/15/21 History Past Med/Surg History Medical History Bronchiectasis Chronic kidney disease stage 3 Chronic left ventricular systolic heart failure Chronic respiratory failure with hypoxia and hypercapnia COPD (chronic obstructive pulmonary disease) Coronary artery disease "S/P inferior IN, severe multivessel disease not amenable to intervention" per 2012 cath Diabetes mellitus, type 2 IDDM Diabetic foot ulcer Diastolic dysfunction GERD (gastroesophageal reflux disease) Gout Hearing deficit BL KOO History of CVA (cerebrovascular accident) "YEARS AGO" - reports he has had a tremor ever since stroke. denies additional residual effects History of depression History of DVT (deep vein thrombosis) "YEARS AGO" ETIOLOGY UNK - ON WARFARIN History of pancreatitis History of pulmonary embolism on intermediate frame tender coumadin History of tachycardia-bradycardia syndrome HLD (hyperlipidemia) Ischemic cardiomyopathy MRSA infection Myocardial Infarction "YEARS AGO" Nephrolithiasis On home oxygen therapy 2 LPM DAILY PRN (secondary to chronic respiratory failure) Osteoarthritis PAD (peripheral artery disease) PAF (paroxysmal atrial fibrillation) DX "years ago" - ON COUMADIN - FOLLOWS W/ DR. CRANE Seizure QUESTIONABLE- EEG 1 WEEK AGO FOR QUESTIONABLE SEIZURE (reported convulsions, loss of consciousness 1 week ago while watching TV) - [place] [facility] - EEG unremarkable Tremor Venous stasis ulcers of both lower extremities Surgical History History of bronchoscopy History of cardiac cath MULTIPLE - NO STENTS [place] (could not recall dates - most recent in system is from 2011 [place]) History of cholecystectomy 2014 History of incision of pericardium pericardial window secondary to pericardial effusion History of pacemaker PLACED 10/2017 FOR [employer] - [employer] - LAST CHECKED 05/2019 History of tonsillectomy S/P cystoscopy with ureteral stent placement 07/25/2019 [facility] 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 Physical Exam Physical Exam: CONSTITUTIONAL: WNWD, vitals as above, generally ill- appearing, labored breathing, slumped over railing of bed. EYES: normal conjunctivae, no scleral icterus ENT: external ear and nose normal, MMM NECK: trachea midline RESPIRATORY: coarse adventitial sounds throughout with additional overlay from upper airway sounds, no crackles, wheezing or rales. increased respiratory effort CARDIOVASCULAR: tachy rate and irregulat rhythm, S1 and 2 heard without murmu rs, gallops or rubs, no JVD, no peripheral edema CHEST: inspection of chest was normal GASTROINTESTINAL: soft, nontender, ND, protuberant, no guarding MUSCULOSKELETAL: strength 5/5 throughout, head is normocephalic and atraumatic SKIN: warm and dry NEUROLOGIC: CN 2-12 grossly intact, normal cognition, normal speech, no tremor PSYCHIATRIC: alert cooperative and answering questions appropriately. Results & Data Results & Data ([facility]) Vital Signs (Past 12 Hours) Vital Signs Temp Pulse Pulse Resp BP BP Pulse Ox 04/15/21 20:39 20 97 04/15/21 20:30 108 H 20 105/73 100 04/15/21 19:55 116 H 17 110/59 L 99 04/15/21 18:05 117 H 21 112/58 L 97 04/15/21 17:15 148 H 18 106/72 73 L 04/15/21 16:22 98 04/15/21 16:06 137 H 20 142/87 H 100 04/15/21 15:51 36.9 C 130 H 32 H 142/87 H 99 Laboratory Results Short CBC 04/15/21 Range/Units 17:47 WBC 7.16 (4.8-10.8) K/uL Hgb 9.5 L (14.0-18.0) g/dL Hct 30.2 L (42-52) % Plt Count 193 (130-400) K/uL BMP 04/15/21 17:47 Sodium 139 Potassium 4.1 D Chloride 100 Carbon Dioxide 21 BUN 25 H Creatinine 1.11 Glucose 169 H Calcium 9.2 Cardiac Enzymes 04/15/21 Range/Units 17:47 Troponin I < 0.015 (0-0.045) ng/ml Liver Function 04/15/21 Range/Units 17:47 Total Bilirubin 0.5 (0.2-1) mg/dl AST 64 H (15-37) U/L ALT 33 (12-78) U/L Alkaline Phosphatase 151 H (45-117) U/L Albumin 2.0 L (3.4-5.0) gm/dl Urine 04/15/21 Range/Units 17:30 Urine Color Yellow Urine Appearance Cloudy A (Clear) Urine pH 6.0 (4.5-7.5) Ur Specific [place] 1.022 (1.000-1.030) Urine Protein 1+ H (Negative) Urine Glucose (UA) 3+ H (Negative) Diagnostic Findings Chest X-Ray 04/15/21 16:22 XR chest 1V portable INDICATION: [place] ^SEPSIS . TECHNIQUE: Single frontal radiograph of the chest was obtained. Comparison: Comparison is made to chest one view 03/30/2021 FINDINGS: Stable dual lead pacemaker. Cardiomegaly is noted. Bibasilar airspace and interstitial opacities are slightly improved compared to the prior exam. No evidence of pleural effusion or pneumothorax. IMPRESSION: Interval slight improvement in bibasilar airspace interstitial opacities. ACT 112: Negative or not required by law. Electronically signed by: Oleg Fitch M.D. 04/15/2021 5:26 PM Abdomen/Pelvis CT 04/15/21 16:25 CT abd pelvis IV con only CLINICAL INDICATION: [place] ^sepsis, sacral decub, eval for osteo. TECHNIQUE: Helical axial images of the abdomen and pelvis were obtained and displayed at 5 and 1 mm intervals. Automated dose lowering techniques and/or adjustment according to patient size were utilized for this exam. This exam was performed with intravenous contrast. COMPARISON: Comparison is made to CT abdomen and pelvis 03/25/2021 FINDINGS: Lower chest: For findings above the diaphragm, please see CT chest performed same day. Liver: Unremarkable. No focal lesions are seen. Gallbladder and biliary tree: Patient is status post cholecystectomy. Physiologic prominence of the biliary ducts is noted. Pancreas: Unremarkable, no focal lesions. Spleen: Unremarkable. Adrenals: Unremarkable. Kidneys and ureters: Mild right hydronephrosis, improved from prior exam. Redemonstration of obstructing distal ureter stone on the right. Again noted is perinephric stranding with focal densities in the perinephric fat. Bladder: Cisneros catheter is seen. Reproductive organs: Prostatomegaly is seen. Bowel: A hiatal hernia is seen. The appendix is unremarkable. Lymph nodes Retroperitoneal: Subcentimeter nodes are seen and retroperitoneal stations. Mesenteric: Unremarkable. Pelvic: Subcentimeter lymph nodes are noted. Peritoneum: Scattered fat stranding is seen. Vessels: Atherosclerotic calcifications are seen. Abdominal wall: A tiny umbilical helical hernia is seen. There is a left fat-containing inguinal hernia. Foci of air are noted in the soft tissues overlying the sacrum, with surrounding fat stranding. Bones: Degenerative changes in the visualized spine. Status post bonita fixation of left intertrochanteric fracture. IMPRESSION: 1. Sacral decubitus ulcer, new from prior exam, with foci of air noted. 2. Slightly improved right hydronephrosis and hydroureter with redemonstration of obstructive calculus in the distal right ureter. 3. Stable masses in the bilateral perirenal fat. 4. Additional findings as above. ACT 112: Negative or not required by law. Electronically signed by: Oleg Fitch M.D. 04/15/2021 8:32 PM Chest CTA 04/15/21 16:25 CT angio chest PE protocol INDICATION: [place] ^C7 CTCN ^sob, tachycardia, h/o dvt/pe, r/o PE. TECHNIQUE: Multidetector row helical CT of the chest was performed. Coronal and sagittal reformations were obtained. Automated dose lowering techniques and/or adjustment according to patient size were utilized for this exam. Comparison: Comparison is made to CT thorax 03/30/2021 FINDINGS: Lungs and pleura: There is bibasilar atelectasis and bronchiectasis most prominent in the left lower lobe. No consolidation is seen. There are small bilateral pleural effusions. Heart and pericardium: Cardiomegaly is seen with biatrial enlargement. Vessels: No evidence of pulmonary embolism. Moderate atherosclerotic calcifications noted. Mediastinum and betito: Subcentimeter lymph nodes are seen. Chest wall and lower neck: Unremarkable. Abdomen: For findings below the diaphragm, please refer to CT of the abdomen dated the same. Bones: Old healed rib fractures are seen bilaterally. A bone island is seen in the inferior aspect of the T1 vertebral body. IMPRESSION: No evidence of pulmonary embolism. Bronchiectasis is unchanged from prior exam. ACT 112: Negative or not required by law. Electronically signed by: Oleg Fitch M.D. 04/15/2021 8:25 PM
[2021-04-15] MEDS ORDERED: METOPROLOL TARTRATE 1 MG/ML VIAL IV STA (21:55)
[2021-04-15] MEDS ORDERED: ACETAMINOPHEN 500 MG TAB ONE (22:09)
[2021-04-16] MEDS ORDERED: dilTIAZem HCl 5 MG/ML 5 ML VIAL IV STA (00:46)
[2021-04-16] MEDS ORDERED: STAT IV Infusion **Titration per Protocol STA (00:46)
[2021-04-16] MEDS ORDERED: ONDANSETRON INJ 2 MG/ML 2 ML VIAL IV PRN (01:01)
[2021-04-16] MEDS ORDERED: POLYETHYLENE (MIRALAX) 17 GM PACK PO PRN (01:01)
[2021-04-16] MEDS ORDERED: ACETAMINOPHEN 325 MG TAB PO PRN (01:01)
[2021-04-16] MEDS: dilTIAZem HCL 125 MG in DEXTROSE 5% 100 ML IV SCH ×2 (02:44→16:58)
[2021-04-16] MEDS: PIPERACILLIN/TAZOBACTAM 3.375 GM in DEXTROSE 5% 100 ML IV SCH ×3 (04:11→16:59)
[2021-04-16] MEDS ORDERED: SODIUM CHLORIDE 0.9% 1000ML 500 ML IV ONE (05:20)
[2021-04-16] MEDS ORDERED: GLUCAGON FOR INJ 1 MG VIAL SQ PRN (05:38)
[2021-04-16] MEDS ORDERED: GLUCOSE 10 TABS/TUBE PO PRN (05:38)
[2021-04-16] MEDS ORDERED: CARBOHYDRATES FOR HYPOGLYCEMIA PO PRN (05:38)
[2021-04-16] MEDS ORDERED: DEXTROSE 50% 50 ML SYRINGE IV PRN (05:38)
[2021-04-16] MEDS ORDERED: GLUCOSE 40% GEL 15 GM TUBE PO PRN (05:38)
[2021-04-16 06:07] LABS: Basophils # (auto) 0.02 K/uL (0-0.2); Basophils % (auto) 0.2 %; Hematocrit (blood only) 34.7 % (42-52); Hemoglobin 10.8 g/dL (14.0-18.0); Immature Granulocytes # (auto) 0.04 K/uL (0.00-0.02); Immature Granulocytes % (auto) 0.4 %; Lymphocytes # (auto) 0.68 K/uL (1.2-3.4); Lymphocytes % (auto) 6.4 %; Mean Corpuscular Hemoglobin 30.2 pg (25-34); Mean Corpuscular Hgb Conc 31.1 g/dL (32-36); Mean Corpuscular Volume 96.9 fL (80-100); Mean Platelet Volume 10.8 fL (7.4-10.4); Monocytes # (auto) 0.62 K/uL (0.11-0.59); Monocytes % (auto) 5.8 %; Neutrophils # (auto) 9.33 K/uL (1.4-6.5); Neutrophils % (auto) 87.2 %; Platelet Count 234 K/uL (130-400); RDW Coefficient of Variation 16.7 % (11.5-14.5); RDW Standard Deviation 59.6 fL (36.4-46.3); Red Blood Count 3.58 M/uL (4.7-6.1); White Blood Count 10.69 K/uL (4.8-10.8)
[2021-04-16 06:17] LABS: INR 1.7 (0.9-1.1); Prothrombin Time 16.5 Seconds (9.0-12.0)
[2021-04-16] MEDS ORDERED: HEPARIN 25000 UNIT/500 ML D5W IV ONE (06:31)
[2021-04-16 06:35] LABS: BUN Creatinine Ratio 23.1 (10-20); C Reactive Protein 10.5 mg/dl (0-0.29); Creatinine Clr Calc Pharmacy 73.6 ml/min; Est GFR (African American) 85.1 ml/min; Est GFR (Non-African American) 73.4 ml/min
[2021-04-16] MEDS: HEPARIN SODIUM/DEXTROSE 25,000 UNITS/500 ML BAG IV SCH (06:45)
[2021-04-16] MEDS: ACETAMINOPHEN 500 MG TAB PO SCH ×3 (06:46→23:03)
[2021-04-16] MEDS: traMADol HCL 50 MG TABLET PO SCH ×3 (06:46→23:03)
[2021-04-16] MEDS ORDERED: LIDOCAINE/EPINEPHRINE 1% 20 ML VIAL ONE (07:37)
[2021-04-16] MEDS: Heparin IV Adult Wt-Based Standard *NO* Bolus Protocol IV SCH ×3 (08:20→09:54)
[2021-04-16] MEDS: PATIENT'S HEIGHT AND/OR WEIGHT NEEDED SCH ×2 (08:20→08:21)
[2021-04-16] MEDS ORDERED: guaiFENesin 600 MG TABCR PO SCH (09:00)
--- NOTE | 2021-04-16 09:01 | Surgery Consultation ---
Date of Consultation April 16, 2021 Assessment & Plan (1) Decubitus ulcer of sacral area: (2) Atrial fibrillation with rapid ventricular response: (3) Diastolic dysfunction: (4) History of pulmonary embolism: (5) Chronic left ventricular systolic heart failure: (6) Chronic kidney disease stage 3: (7) Coronary artery disease: 75-year-old gentleman with significant past medical history presents with increasing pain in his left hip and sacral region, and new onset of sacral decubitus ulcer. The ulcer has necrosis and gangrene. CT scan does not show osteomyelitis. After informed consent, the wound was debrided in the emergency department. Please see separate operative note for details. The ulcer is stage III, measures 4 cm x 2.5 cm, with a depth of 2 cm. No bone is exposed. It undermines 1 cm cephalad. The ulcer has been packed wet-to-dry for now. I recommend wound care consult for possible wound VAC placement. We will follow along closely. History of Present Illness Reason for Consultation: Sacral decubitus ulcer Requesting Physician: Juliana Anderson MD Attending Physician: Tomy Troy MD History of Present Illness The patient is a pleasant 75-year-old gentleman with a complex past medical history including IDDM 2, CKD stage III, COPD, nocturnal hypoxia on O2, ischemic cardiomyopathy with EF of 35%, diastolic dysfunction, history of inferior wall ND with severe multivessel CAD not amenable to intervention, paroxysmal atrial fibrillation on Coumadin, history of DVT/PE, history of pericardial effusion status post pericardiocentesis, pleural effusion status post thoracentesis, tachybradycardia syndrome status post PPM, who presents to the emergency department from his nursing home facility at [facility] for evaluation worsening left hip and sacral pain in the setting of recent left hip ORIF on 03/30 status post fall suffering intertrochanteric fracture as well as with known sacral decubitus ulcer. He has had pain since the surgery, however the pain has been worsening, so he presented to the emergency department today. CT scan demonstrates foci of air in the soft tissue around the sacral decub, as well as inflammation. He is a very poor historian, and is not forthcoming with answering questions. Allergies Allergy/AdvReac Type Severity Reaction Status Date / Time albuterol Allergy Severe CHOKING Verified 04/15/21 19:16 SENSATION ipratropium Allergy Severe CHOKING Verified 04/15/21 19:16 SENSATION onion Allergy Intermediate RASH Verified 04/15/21 19:16 levofloxacin Allergy Mild other Verified 04/15/21 19:16 spironolactone AdvReac Severe Problems Unverified 04/15/21 19:16 with breathing atorvastatin AdvReac Intermediate Muscle Pain Verified 04/15/21 19:16 metformin AdvReac Intermediate Diarrhea Verified 04/15/21 19:16 Home Medications Medication Instructions Recorded Confirmed Type insulin glargine 100 unit/mL (3 10 unit SUBCUT HS 04/11/18 04/15/21 History mL) subcutaneous pen (Lantus Solostar U-100 Insulin) montelukast 10 mg tablet 10 mg PO HS 04/11/18 04/15/21 History (Singulair) nitroglycerin 0.4 mg sublingual 0.4 mg SUBLINGUAL UD PRN 04/11/18 04/15/21 History tablet primidone 250 mg tablet (Mysoline) 500 mg PO HS 04/11/18 04/15/21 History rosuvastatin 40 mg tablet (Crestor) 40 mg PO HS 04/11/18 04/15/21 History aspirin 325 mg tablet 325 mg PO HS 08/08/19 04/15/21 History ferrous sulfate 325 mg (65 mg 325 mg PO Q OTHER DAY 01/09/20 04/15/21 History iron) tablet (iron) empagliflozin 10 mg tablet 10 mg PO HS 10/18/20 04/15/21 History (Jardiance) allopurinol 300 mg tablet 300 mg PO HS 03/25/21 04/15/21 History metoprolol succinate 25 mg 25 mg PO QAM 30 Days #30 tab 04/03/21 04/15/21 Rx tablet,extended release 24 hr multivitamin with folic acid 400 1 tab PO QAM 30 Days #30 tab 04/03/21 04/15/21 Rx mcg tablet (Daily-Karla (with folic acid)) acetaminophen 325 mg tablet 650 mg PO Q6 PRN MDD 3g 04/15/21 04/15/21 History amoxicillin 875 mg-potassium 1 tab PO Q12H 04/15/21 04/15/21 History clavulanate 125 mg tablet (Augmentin) ascorbic acid (vitamin C) 1,000 mg 1 g PO BID 04/15/21 04/15/21 History tablet (Vitamin C) doxycycline hyclate 100 mg tablet 100 mg PO BID 04/15/21 04/15/21 History guaifenesin 600 mg tablet, 600 mg PO Q12H 04/15/21 04/15/21 History extended release 12 hr oxycodone 5 mg tablet 5 mg PO Q4 PRN 04/15/21 04/15/21 History potassium chloride 20 mEq 20 meq PO DAILY 04/15/21 04/16/21 History tablet,extended release(part/cryst) (Klor-Con M) sennosides 8.6 mg-docusate sodium 1 tab-cap PO BID 04/15/21 04/15/21 History 50 mg tablet (Senokot-S) warfarin 5 mg tablet 5 mg PO QPM 04/15/21 04/15/21 History Patient History Medical History Bronchiectasis Chronic kidney disease stage 3 Chronic left ventricular systolic heart failure Chronic respiratory failure with hypoxia and hypercapnia COPD (chronic obstructive pulmonary disease) Coronary artery disease "S/P inferior ND, severe multivessel disease not amenable to intervention" per 2012 cath Diabetes mellitus, type 2 IDDM Diabetic foot ulcer Diastolic dysfunction GERD (gastroesophageal reflux disease) Gout Hearing deficit BL KOO History of CVA (cerebrovascular accident) "YEARS AGO" - reports he has had a tremor ever since stroke. denies additional residual effects History of depression History of DVT (deep vein thrombosis) "YEARS AGO" ETIOLOGY UNK - ON WARFARIN History of pancreatitis History of pulmonary embolism on fpc coumadin History of tachycardia-bradycardia syndrome HLD (hyperlipidemia) Ischemic cardiomyopathy MRSA infection Myocardial Infarction "YEARS AGO" Nephrolithiasis On home oxygen therapy 2 LPM DAILY PRN (secondary to chronic respiratory failure) Osteoarthritis PAD (peripheral artery disease) PAF (paroxysmal atrial fibrillation) DX "years ago" - ON COUMADIN - FOLLOWS W/ DR. CRANE Seizure QUESTIONABLE- EEG 1 WEEK AGO FOR QUESTIONABLE SEIZURE (reported convulsions, loss of consciousness 1 week ago while watching TV) - [facility] - EEG unremarkable Tremor Venous stasis ulcers of both lower extremities Surgical History History of bronchoscopy History of cardiac cath MULTIPLE - NO STENTS [place] (could not recall dates - most recent in system is from 2011 [place]) History of cholecystectomy 2014 History of incision of pericardium pericardial window secondary to pericardial effusion History of pacemaker PLACED 10/2017 FOR TACHY-SARA SYNDROME - [employer] - LAST CHECKED 05/2019 History of tonsillectomy S/P cystoscopy with ureteral stent placement 07/25/2019 [facility] 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 employed by [employer] with nickel and zinc oxide exposure x 17 years Feels Safe at Home: Yes Assistive Devices: Oxygen - at Night and Wheelchair Review of Systems Review of Systems: Unobtainable due to cognitive status Physical Exam Constitutional: well developed, + ill appearing, + obese and + frail appearing Eyes: PERRL, conjunctivae normal, anicteric sclerae Neck: trachea midline, no thyromegaly Respiratory: normal respiratory effort; no respiratory distress and no labored breathing Cardiovascular: Rate/Rhythm: + tachycardic Gastrointestinal (Abdomen): Inspection/Auscultation: abdomen normal to inspection Percussion/Palpation: abdomen soft; abdomen nontender Musculoskeletal: Extremities: no cyanosis and no clubbing Skin: no rashes, warm and dry Decubitus ulcer with necrosis and gangrene encircling the wound measuring approximately 2 cm in diameter circumferentially; further fever no purulence necrosis inside the wound; foul-smelling Results & Data ([facility]) Vital Signs (Past 12 Hours) Vital Signs Temp Pulse Resp BP Pulse Ox 04/16/21 08:26 97 04/16/21 08:00 36.9 C 120 H 22 106/48 L 97 04/16/21 04:00 112/54 L 04/16/21 03:35 36.8 C 117 H 24 170/75 H 99 04/16/21 02:45 126 H 86/58 L Laboratory Results 04/16/21 04/16/21 04/16/21 Range/Units 08:06 06:00 06:00 WBC (4.8-10.8) K/uL RBC (4.7-6.1) M/uL Hgb (14.0-18.0) g/dL Hct (42-52) % MCV (80-100) fL MCH (25-34) pg MCHC (32-36) g/dL RDW Std Deviation (36.4-46.3) fL RDW Coeff of Lizet (11.5-14.5) % Plt Count (130-400) K/uL MPV (7.4-10.4) fL Immature Gran % (Auto) % Neut % (Auto) % Lymph % (Auto) % [place] % (Auto) % Eos % (Auto) % Baso % (Auto) % Neut # (Auto) (1.4-6.5) K/uL Lymph # (Auto) (1.2-3.4) K/uL [place] # (Auto) (0.11-0.59) K/uL Eos # (Auto) (0-0.5) K/uL Baso # (Auto) (0-0.2) K/uL Immature Gran # (Auto) (0.00-0.02) K/uL ESR (0-20) mm/hr PT 16.5 H (9.0-12.0) Seconds INR 1.7 H (0.9-1.1) APTT (21.0-31.0) Seconds PTT Ratio Sodium (136-145) mmol/L Potassium (3.5-5.1) mmol/L Chloride (98-107) mmol/L Carbon Dioxide (21-32) mmol/L Anion Gap (3-11) BUN (7-18) mg/dl Creatinine (0.6-1.4) mg/dl Est Cr Clr Drug Dosing Est GFR ( Amer) ml/min Est GFR (Non-Af Amer) ml/min BUN/Creatinine Ratio (10-20) Glucose (70-99) mg/dl Lactate 2.2 H* 2.6 H* (0.4-2.0) mmol/L Calcium (8.5-10.1) mg/dl Magnesium (1.8-2.4) mg/dl Total Bilirubin (0.2-1) mg/dl AST (15-37) U/L ALT (12-78) U/L Alkaline Phosphatase (45-117) U/L Troponin I (0-0.045) ng/ml C-Reactive Protein (0-0.29) mg/dl NT-Pro-B Natriuret Pep (0-900) pg/ml Total Protein (6.4-8.2) gm/dl Albumin (3.4-5.0) gm/dl Globulin (2.5-4.0) gm/dl Albumin/Globulin Ratio (0.9-2) Procalcitonin (0-0.5) ng/ml Urine Color Urine Appearance (Clear) Urine pH (4.5-7.5) Ur Specific [place] (1.000-1.030) Urine Protein (Negative) Urine Glucose (UA) (Negative) Urine Ketones (Negative) Urine Blood (Negative) Urine Nitrite (Negative) Urine Bilirubin (Negative) Urine Urobilinogen (Negative) Ur Leukocyte Esterase (Negative) Urine WBC (Auto) (0-5) /hpf Urine RBC (Auto) (0-4) /hpf U Hyaline Cast (Auto) (0-5) /lpf U Epithel Cells (Auto) (0-5) /lpf Urine Bacteria (Auto) (Negative) Urine Yeast (None Prsent) COVID-19 Eval Order SARS-CoV-2 (PCR) (Negative) 04/16/21 04/16/21 04/16/21 Range/Units 06:00 06:00 05:59 WBC 10.69 (4.8-10.8) K/uL RBC 3.58 L (4.7-6.1) M/uL Hgb 10.8 L (14.0-18.0) g/dL Hct 34.7 L (42-52) % MCV 96.9 (80-100) fL MCH 30.2 (25-34) pg MCHC 31.1 L (32-36) g/dL RDW Std Deviation 59.6 H (36.4-46.3) fL RDW Coeff of Lizet 16.7 H (11.5-14.5) % Plt Count 234 (130-400) K/uL MPV 10.8 H (7.4-10.4) fL Immature Gran % (Auto) 0.4 % Neut % (Auto) 87.2 % Lymph % (Auto) 6.4 % [place] % (Auto) 5.8 % Eos % (Auto) 0.0 % Baso % (Auto) 0.2 % Neut # (Auto) 9.33 H (1.4-6.5) K/uL Lymph # (Auto) 0.68 L (1.2-3.4) K/uL [place] # (Auto) 0.62 H (0.11-0.59) K/uL Eos # (Auto) 0.00 (0-0.5) K/uL Baso # (Auto) 0.02 (0-0.2) K/uL Immature Gran # (Auto) 0.04 H (0.00-0.02) K/uL ESR 101 H (0-20) mm/hr PT (9.0-12.0) Seconds INR (0.9-1.1) APTT (21.0-31.0) Seconds PTT Ratio Sodium 140 (136-145) mmol/L Potassium (3.5-5.1) mmol/L Chloride 103 (98-107) mmol/L Carbon Dioxide 23 (21-32) mmol/L Anion Gap 14.0 H (3-11) BUN 23 H (7-18) mg/dl Creatinine 1.01 (0.6-1.4) mg/dl Est Cr Clr Drug Dosing 73.6 Est GFR ( Amer) 85.1 ml/min Est GFR (Non-Af Amer) 73.4 ml/min BUN/Creatinine Ratio 23.1 H (10-20) Glucose 136 H (70-99) mg/dl Lactate (0.4-2.0) mmol/L Calcium 9.0 (8.5-10.1) mg/dl Magnesium (1.8-2.4) mg/dl Total Bilirubin (0.2-1) mg/dl AST (15-37) U/L ALT (12-78) U/L Alkaline Phosphatase (45-117) U/L Troponin I (0-0.045) ng/ml C-Reactive Protein 10.50 H (0-0.29) mg/dl NT-Pro-B Natriuret Pep 8051 H (0-900) pg/ml Total Protein (6.4-8.2) gm/dl Albumin (3.4-5.0) gm/dl Globulin (2.5-4.0) gm/dl Albumin/Globulin Ratio (0.9-2) Procalcitonin (0-0.5) ng/ml Urine Color Urine Appearance (Clear) Urine pH (4.5-7.5) Ur Specific [place] (1.000-1.030) Urine Protein (Negative) Urine Glucose (UA) (Negative) Urine Ketones (Negative) Urine Blood (Negative) Urine Nitrite (Negative) Urine Bilirubin (Negative) Urine Urobilinogen (Negative) Ur Leukocyte Esterase (Negative) Urine WBC (Auto) (0-5) /hpf Urine RBC (Auto) (0-4) /hpf U Hyaline Cast (Auto) (0-5) /lpf U Epithel Cells (Auto) (0-5) /lpf Urine Bacteria (Auto) (Negative) Urine Yeast (None Prsent) COVID-19 Eval Order SARS-CoV-2 (PCR) (Negative) 04/15/21 04/15/21 04/15/21 Range/Units 20:33 17:50 17:47 WBC (4.8-10.8) K/uL RBC (4.7-6.1) M/uL Hgb (14.0-18.0) g/dL Hct (42-52) % MCV (80-100) fL MCH (25-34) pg MCHC (32-36) g/dL RDW Std Deviation (36.4-46.3) fL RDW Coeff of Lizet (11.5-14.5) % Plt Count (130-400) K/uL MPV (7.4-10.4) fL Immature Gran % (Auto) % Neut % (Auto) % Lymph % (Auto) % [place] % (Auto) % Eos % (Auto) % Baso % (Auto) % Neut # (Auto) (1.4-6.5) K/uL Lymph # (Auto) (1.2-3.4) K/uL [place] # (Auto) (0.11-0.59) K/uL Eos # (Auto) (0-0.5) K/uL Baso # (Auto) (0-0.2) K/uL Immature Gran # (Auto) (0.00-0.02) K/uL ESR (0-20) mm/hr PT 12.9 H (9.0-12.0) Seconds INR 1.3 H (0.9-1.1) APTT 31.5 H (21.0-31.0) Seconds PTT Ratio 1.2 Sodium (136-145) mmol/L Potassium (3.5-5.1) mmol/L Chloride (98-107) mmol/L Carbon Dioxide (21-32) mmol/L Anion Gap (3-11) BUN (7-18) mg/dl Creatinine (0.6-1.4) mg/dl Est Cr Clr Drug Dosing Est GFR ( Amer) ml/min Est GFR (Non-Af Amer) ml/min BUN/Creatinine Ratio (10-20) Glucose (70-99) mg/dl Lactate 2.1 H* 3.3 H* (0.4-2.0) mmol/L Calcium (8.5-10.1) mg/dl Magnesium (1.8-2.4) mg/dl Total Bilirubin (0.2-1) mg/dl AST (15-37) U/L ALT (12-78) U/L Alkaline Phosphatase (45-117) U/L Troponin I (0-0.045) ng/ml C-Reactive Protein (0-0.29) mg/dl NT-Pro-B Natriuret Pep (0-900) pg/ml Total Protein (6.4-8.2) gm/dl Albumin (3.4-5.0) gm/dl Globulin (2.5-4.0) gm/dl Albumin/Globulin Ratio (0.9-2) Procalcitonin (0-0.5) ng/ml Urine Color Urine Appearance (Clear) Urine pH (4.5-7.5) Ur Specific [place] (1.000-1.030) Urine Protein (Negative) Urine Glucose (UA) (Negative) Urine Ketones (Negative) Urine Blood (Negative) Urine Nitrite (Negative) Urine Bilirubin (Negative) Urine Urobilinogen (Negative) Ur Leukocyte Esterase (Negative) Urine WBC (Auto) (0-5) /hpf Urine RBC (Auto) (0-4) /hpf U Hyaline Cast (Auto) (0-5) /lpf U Epithel Cells (Auto) (0-5) /lpf Urine Bacteria (Auto) (Negative) Urine Yeast (None Prsent) COVID-19 Eval Order SARS-CoV-2 (PCR) (Negative) 04/15/21 04/15/21 04/15/21 Range/Units 17:47 17:47 17:47 WBC 7.16 (4.8-10.8) K/uL RBC 3.14 L (4.7-6.1) M/uL Hgb 9.5 L (14.0-18.0) g/dL Hct 30.2 L (42-52) % MCV 96.2 (80-100) fL MCH 30.3 (25-34) pg MCHC 31.5 L (32-36) g/dL RDW Std Deviation 57.6 H (36.4-46.3) fL RDW Coeff of Lizet 16.4 H (11.5-14.5) % Plt Count 193 (130-400) K/uL MPV 10.7 H (7.4-10.4) fL Immature Gran % (Auto) 0.3 % Neut % (Auto) 91.3 % Lymph % (Auto) 4.9 % [place] % (Auto) 3.4 % Eos % (Auto) 0.0 % Baso % (Auto) 0.1 % Neut # (Auto) 6.54 H (1.4-6.5) K/uL Lymph # (Auto) 0.35 L (1.2-3.4) K/uL [place] # (Auto) 0.24 (0.11-0.59) K/uL Eos # (Auto) 0.00 (0-0.5) K/uL Baso # (Auto) 0.01 (0-0.2) K/uL Immature Gran # (Auto) 0.02 (0.00-0.02) K/uL ESR (0-20) mm/hr PT (9.0-12.0) Seconds INR (0.9-1.1) APTT (21.0-31.0) Seconds PTT Ratio Sodium 139 (136-145) mmol/L Potassium 4.1 D (3.5-5.1) mmol/L Chloride 100 (98-107) mmol/L Carbon Dioxide 21 (21-32) mmol/L Anion Gap 17.0 H (3-11) BUN 25 H (7-18) mg/dl Creatinine 1.11 (0.6-1.4) mg/dl Est Cr Clr Drug Dosing Not Reportable Est GFR ( Amer) 75.9 ml/min Est GFR (Non-Af Amer) 65.5 ml/min BUN/Creatinine Ratio 22.3 H (10-20) Glucose 169 H (70-99) mg/dl Lactate (0.4-2.0) mmol/L Calcium 9.2 (8.5-10.1) mg/dl Magnesium 1.9 (1.8-2.4) mg/dl Total Bilirubin 0.5 (0.2-1) mg/dl AST 64 H (15-37) U/L ALT 33 (12-78) U/L Alkaline Phosphatase 151 H (45-117) U/L Troponin I < 0.015 (0-0.045) ng/ml C-Reactive Protein 10.40 H (0-0.29) mg/dl NT-Pro-B Natriuret Pep 7479 H (0-900) pg/ml Total Protein 7.4 (6.4-8.2) gm/dl Albumin 2.0 L (3.4-5.0) gm/dl Globulin 5.4 H (2.5-4.0) gm/dl Albumin/Globulin Ratio 0.4 L (0.9-2) Procalcitonin 0.10 (0-0.5) ng/ml Urine Color Urine Appearance (Clear) Urine pH (4.5-7.5) Ur Specific [place] (1.000-1.030) Urine Protein (Negative) Urine Glucose (UA) (Negative) Urine Ketones (Negative) Urine Blood (Negative) Urine Nitrite (Negative) Urine Bilirubin (Negative) Urine Urobilinogen (Negative) Ur Leukocyte Esterase (Negative) Urine WBC (Auto) (0-5) /hpf Urine RBC (Auto) (0-4) /hpf U Hyaline Cast (Auto) (0-5) /lpf U Epithel Cells (Auto) (0-5) /lpf Urine Bacteria (Auto) (Negative) Urine Yeast (None Prsent) COVID-19 Eval Order SARS-CoV-2 (PCR) (Negative) 04/15/21 04/15/21 04/15/21 Range/Units 17:47 17:30 16:22 WBC (4.8-10.8) K/uL RBC (4.7-6.1) M/uL Hgb (14.0-18.0) g/dL Hct (42-52) % MCV (80-100) fL MCH (25-34) pg MCHC (32-36) g/dL RDW Std Deviation (36.4-46.3) fL RDW Coeff of Lizet (11.5-14.5) % Plt Count (130-400) K/uL MPV (7.4-10.4) fL Immature Gran % (Auto) % Neut % (Auto) % Lymph % (Auto) % [place] % (Auto) % Eos % (Auto) % Baso % (Auto) % Neut # (Auto) (1.4-6.5) K/uL Lymph # (Auto) (1.2-3.4) K/uL [place] # (Auto) (0.11-0.59) K/uL Eos # (Auto) (0-0.5) K/uL Baso # (Auto) (0-0.2) K/uL Immature Gran # (Auto) (0.00-0.02) K/uL ESR 55 H (0-20) mm/hr PT (9.0-12.0) Seconds INR (0.9-1.1) APTT (21.0-31.0) Seconds PTT Ratio Sodium (136-145) mmol/L Potassium (3.5-5.1) mmol/L Chloride (98-107) mmol/L Carbon Dioxide (21-32) mmol/L Anion Gap (3-11) BUN (7-18) mg/dl Creatinine (0.6-1.4) mg/dl Est Cr Clr Drug Dosing Est GFR ( Amer) ml/min Est GFR (Non-Af Amer) ml/min BUN/Creatinine Ratio (10-20) Glucose (70-99) mg/dl Lactate (0.4-2.0) mmol/L Calcium (8.5-10.1) mg/dl Magnesium (1.8-2.4) mg/dl Total Bilirubin (0.2-1) mg/dl AST (15-37) U/L ALT (12-78) U/L Alkaline Phosphatase (45-117) U/L Troponin I (0-0.045) ng/ml C-Reactive Protein (0-0.29) mg/dl NT-Pro-B Natriuret Pep (0-900) pg/ml Total Protein (6.4-8.2) gm/dl Albumin (3.4-5.0) gm/dl Globulin (2.5-4.0) gm/dl Albumin/Globulin Ratio (0.9-2) Procalcitonin (0-0.5) ng/ml Urine Color Yellow Urine Appearance Cloudy A (Clear) Urine pH 6.0 (4.5-7.5) Ur Specific [place] 1.022 (1.000-1.030) Urine Protein 1+ H (Negative) Urine Glucose (UA) 3+ H (Negative) Urine Ketones 1+ H (Negative) Urine Blood 3+ H (Negative) Urine Nitrite Negative (Negative) Urine Bilirubin Negative (Negative) Urine Urobilinogen Negative (Negative) Ur Leukocyte Esterase 1+ H (Negative) Urine WBC (Auto) >30 H (0-5) /hpf Urine RBC (Auto) 0-4 (0-4) /hpf U Hyaline Cast (Auto) 1-5 (0-5) /lpf U Epithel Cells (Auto) 10-20 H (0-5) /lpf Urine Bacteria (Auto) Negative (Negative) Urine Yeast Budding A (None Prsent) COVID-19 Eval Order SARS-CoV-2 (PCR) NEGATIVE (Negative) 04/15/21 Range/Units 16:22 WBC (4.8-10.8) K/uL RBC (4.7-6.1) M/uL Hgb (14.0-18.0) g/dL Hct (42-52) % MCV (80-100) fL MCH (25-34) pg MCHC (32-36) g/dL RDW Std Deviation (36.4-46.3) fL RDW Coeff of Lizet (11.5-14.5) % Plt Count (130-400) K/uL MPV (7.4-10.4) fL Immature Gran % (Auto) % Neut % (Auto) % Lymph % (Auto) % [place] % (Auto) % Eos % (Auto) % Baso % (Auto) % Neut # (Auto) (1.4-6.5) K/uL Lymph # (Auto) (1.2-3.4) K/uL [place] # (Auto) (0.11-0.59) K/uL Eos # (Auto) (0-0.5) K/uL Baso # (Auto) (0-0.2) K/uL Immature Gran # (Auto) (0.00-0.02) K/uL ESR (0-20) mm/hr PT (9.0-12.0) Seconds INR (0.9-1.1) APTT (21.0-31.0) Seconds PTT Ratio Sodium (136-145) mmol/L Potassium (3.5-5.1) mmol/L Chloride (98-107) mmol/L Carbon Dioxide (21-32) mmol/L Anion Gap (3-11) BUN (7-18) mg/dl Creatinine (0.6-1.4) mg/dl Est Cr Clr Drug Dosing Est GFR ( Amer) ml/min Est GFR (Non-Af Amer) ml/min BUN/Creatinine Ratio (10-20) Glucose (70-99) mg/dl Lactate (0.4-2.0) mmol/L Calcium (8.5-10.1) mg/dl Magnesium (1.8-2.4) mg/dl Total Bilirubin (0.2-1) mg/dl AST (15-37) U/L ALT (12-78) U/L Alkaline Phosphatase (45-117) U/L Troponin I (0-0.045) ng/ml C-Reactive Protein (0-0.29) mg/dl NT-Pro-B Natriuret Pep (0-900) pg/ml Total Protein (6.4-8.2) gm/dl Albumin (3.4-5.0) gm/dl Globulin (2.5-4.0) gm/dl Albumin/Globulin Ratio (0.9-2) Procalcitonin (0-0.5) ng/ml Urine Color Urine Appearance (Clear) Urine pH (4.5-7.5) Ur Specific [place] (1.000-1.030) Urine Protein (Negative) Urine Glucose (UA) (Negative) Urine Ketones (Negative) Urine Blood (Negative) Urine Nitrite (Negative) Urine Bilirubin (Negative) Urine Urobilinogen (Negative) Ur Leukocyte Esterase (Negative) Urine WBC (Auto) (0-5) /hpf Urine RBC (Auto) (0-4) /hpf U Hyaline Cast (Auto) (0-5) /lpf U Epithel Cells (Auto) (0-5) /lpf Urine Bacteria (Auto) (Negative) Urine Yeast (None Prsent) COVID-19 Eval Order Covid19 at [facility] SARS-CoV-2 (PCR) (Negative) Diagnostic Findings CT abd pelvis IV con only CLINICAL INDICATION: NC ^sepsis, sacral decub, eval for osteo. TECHNIQUE: Helical axial images of the abdomen and pelvis were obtained and displayed at 5 and 1 mm intervals. Automated dose lowering techniques and/or adjustment according to patient size were utilized for this exam. This exam was performed with intravenous contrast. COMPARISON: Comparison is made to CT abdomen and pelvis 03/25/2021 FINDINGS: Lower chest: For findings above the diaphragm, please see CT chest performed same day. Liver: Unremarkable. No focal lesions are seen. Gallbladder and biliary tree: Patient is status post cholecystectomy. Physiologic prominence of the biliary ducts is noted. Pancreas: Unremarkable, no focal lesions. Spleen: Unremarkable. Adrenals: Unremarkable. Kidneys and ureters: Mild right hydronephrosis, improved from prior exam. Redemonstration of obstructing distal ureter stone on the right. Again noted is perinephric stranding with focal densities in the perinephric fat. Bladder: Cisneros catheter is seen. Reproductive organs: Prostatomegaly is seen. Bowel: A hiatal hernia is seen. The appendix is unremarkable. Lymph nodes Retroperitoneal: Subcentimeter nodes are seen and retroperitoneal stations. Mesenteric: Unremarkable. Pelvic: Subcentimeter lymph nodes are noted. Peritoneum: Scattered fat stranding is seen. Vessels: Atherosclerotic calcifications are seen. Abdominal wall: A tiny umbilical helical hernia is seen. There is a left fat- containing inguinal hernia. Foci of air are noted in the soft tissues overlying the sacrum, with surrounding fat stranding. Bones: Degenerative changes in the visualized spine. Status post bonita fixation of left intertrochanteric fracture. IMPRESSION: 1. Sacral decubitus ulcer, new from prior exam, with foci of air noted. 2. Slightly improved right hydronephrosis and hydroureter with redemonstration of obstructive calculus in the distal right ureter. 3. Stable masses in the bilateral perirenal fat. 4. Additional findings as above. (1) Decubitus ulcer of sacral area Pressure injury stage: unstageable Qualified Code(s): L89.150 - Pressure ulcer of sacral region, unstageable
--- NOTE | 2021-04-16 09:15 | Operative Report ---
Post Operative Report Pre & Post Diagnosis Sacral decubitus ulcer I identified the patient and participated in the time-out.: Yes Procedure Debridement of sacral decubitus ulcer This was done at the bedside in the emergency department under local anesthetic with no sedation or other anesthesia. Surgeon Ruben Antonio MD Window Shade Ring Coverer None Estimated Blood Loss 5 Findings Consistent with Post-Op Diagnosis Significant necrotic and gangrenous tissue at the surface of the ulcer. This was debrided. No bone was exposed. The tissue was debrided back to healthy bleeding tissue. External opening measures 4 cm x 2.5 cm, 2 cm deep. There is undermining of approximately 1 cm cephalad. Specimens None Anesthesia Type Local Complications None Indications Infected sacral decubitus ulcer Description of Procedure After informed consent was obtained in the emergency department, patient was prepped with Betadine. The necrotic tissue was sharply debrided with an 11 blade scalpel. This was done back to healthy bleeding tissue. The ulcer was explored. It tracks approximately 1 cm cephalad. Further fibropurulent and necrotic tissue was debrided sharply with 11 blade and scissor dissection. Once this was complete, the wound was measured. It measured 4 cm x 2.5 cm with 2 cm depth. There is 1 cm undermining cephalad. The wound was packed with wet-to-dry dressings, and an ABD pad was placed over the top. He tolerated the procedure without complication. I attest to the content of the Intraoperative Record and any orders documented therein. Any exceptions are noted below.
[2021-04-16] MEDS: SODIUM CHLORIDE 0.9% 1000ML 1,000 ML IV SCH ×2 (09:31→16:58)
[2021-04-16] MEDS: INSULIN ASPART 100 UNITS/ML 3 ML PEN SC SCH ×4 (09:39→20:50)
--- NOTE | 2021-04-16 10:09 | Urology Consultation ---
Date of Consultation April 16, 2021 Assessment & Plan (1) Ureteral calculus, right: 75yo M admitted with sepsis secondary to a sacral decubitus ulcer with CT findings of a distal right ureteral stone with hydronephrosis - Recently hospitalized secondary to a fall and is s/p left hip ORIF on 03/30/21. CTAP imaging at that time noted right sided hydronephrosis secondary to an 8mm distal right ureteral stone - CT imaging on presentation yesterday (04/15) noted slightly improved right hydronephrosis and hydroureter with redemonstration of obstructive calculus in the distal right ureter when compared to prior imaging. - Plan of care and imaging reviewed with Dr. Heaton, on-call urologist. - He is afebrile. - Labs reviewed, Wbc normal, Hgb 10.8, Cr 1.01 -- Will continue to trend - Urine and blood cultures pending, follow cultures - Cisneros catheter intact/draining. - Given his stability, no acute intervention planned for today. - Will continue to monitor for now and allow time for continued clinical progress and treatment of sacral decubitus ulcer and infection. - Will consider procedure for stone treatment and stent placement possibly next week pending patient status and hospital course. - Please consult our service urgently if patient develops fever >101F, intractable pain or nausea, as this will necessitate urgent surgical intervention in the form of stent placement. - Continue supportive care, antibiotic therapy, and management per primary team - Will continue to monitor closely History of Present Illness Reason for Consultation: Right ureteral stone Attending Physician: Tomy Troy MD History of Present Illness 75yo M with complex medical hx admitted with sepsis secondary to sacral decubitus ulcer and paroxysmal atrial fibrillation. PMHx includes IDDM 2, CKD stage III, COPD, nocturnal hypoxia on O2, ischemic cardiomyopathy with EF of 35%, diastolic dysfunction, history of inferior wall SC with severe multivessel CAD not amenable to intervention, paroxysmal atrial fibrillation on Coumadin, history of DVT/PE, history of pericardial effusion status post pericardiocentesis, pleural effusion status post thoracentesis, tachybradycardia syndrome status post PPM Urology consulted for right ureteral stone The patient initially presented to the ED on 03/25 after a fall, admitted with hip fracture. Hospitalized 03/25-04/03 and status post left hip ORIF 03/30. CTAP at that time noted mild hydronephrosis and hydroureter on the right with 8 mm obstructive calculus within distal aspect of the right ureter. He came back to the ED yesterday from [facility] d/t worsening hip pain. CTAP was repeated yesterday on presentation noting a new sacral decubitus ulcer and slightly im proved right hydronephrosis and hydroureter with redemonstration of obstructive calculus in the distal right ureter. CTAP IMPRESSION 04/15: 1. Sacral decubitus ulcer, new from prior exam, with foci of air noted. 2. Slightly improved right hydronephrosis and hydroureter with redemonstration of obstructive calculus in the distal right ureter. 3. Stable masses in the bilateral perirenal fat. 4. Additional findings as above. CTAP IMPRESSION 03/25: 1. Mild hydronephrosis and hydroureter is seen on the right with 8 mm obstructive calculus within distal aspect of the right ureter. 2. Nonobstructive nephrolithiasis is seen on the left. Stable masses within bilateral perirenal fat are unchanged since prior study. 3. Interval resolution of the right pleural effusion. Opacities at bilateral bases as detailed above. 4. Mildly increase in size nodule adjacent to the right minor fissure. Evaluation is suboptimal on this nondedicated exam. This nodule was not definitely seen on CT of the chest performed on January 18, 2021 likely due to prominent opacities and septal thickening. Follow-up evaluation is per clinical protocol. 5. Trace pericardial effusion. 6. Osteopenia and slightly displaced intertrochanteric fracture of the left femur. 7. Atherosclerosis. He is Afebrile, Wbc 10.69. Hgb 10.8, Cr 1.01. Urine/blood cultures pending. He has a Cisneros catheter which was placed by SNF. On IV Zosyn and Dapto. He is NPO. On heparin gtt. Pt had a debridement of sacral decubitus ulcer today at bedside in the ED by Gen surg. Pt examined at bedside in ED this AM. Awake, resting in bed on arrival. Poor historian. Answers only a few questions. He denies back, flank, and suprapubic pain at present. Denies fever or chills. Denies nausea or vomiting. Cisneros catheter intact, draining yellow urine with some sediment noted in tubing. Sacral ulcer dressing intact. Pt states he has a hx of stones, has previously followed with [facility] urology. He denies needing stone treatment in the past. He is unsure when he was last seen by urology. Offers no additional complaints or concerns today Allergies Allergy/AdvReac Type Severity Reaction Status Date / Time albuterol Allergy Severe CHOKING Verified 04/15/21 19:16 SENSATION ipratropium Allergy Severe CHOKING Verified 04/15/21 19:16 SENSATION onion Allergy Intermediate RASH Verified 04/15/21 19:16 levofloxacin Allergy Mild other Verified 04/15/21 19:16 spironolactone AdvReac Severe Problems Unverified 04/15/21 19:16 with breathing atorvastatin AdvReac Intermediate Muscle Pain Verified 04/15/21 19:16 metformin AdvReac Intermediate Diarrhea Verified 04/15/21 19:16 Home Medications Medication Instructions Recorded Confirmed Type insulin glargine 100 unit/mL (3 10 unit SUBCUT HS 04/11/18 04/15/21 History mL) subcutaneous pen (Lantus Solostar U-100 Insulin) montelukast 10 mg tablet 10 mg PO HS 04/11/18 04/15/21 History (Singulair) nitroglycerin 0.4 mg sublingual 0.4 mg SUBLINGUAL UD PRN 04/11/18 04/15/21 History tablet primidone 250 mg tablet (Mysoline) 500 mg PO HS 04/11/18 04/15/21 History rosuvastatin 40 mg tablet (Crestor) 40 mg PO HS 04/11/18 04/15/21 History aspirin 325 mg tablet 325 mg PO HS 08/08/19 04/15/21 History ferrous sulfate 325 mg (65 mg 325 mg PO Q OTHER DAY 01/09/20 04/15/21 History iron) tablet (iron) empagliflozin 10 mg tablet 10 mg PO HS 10/18/20 04/15/21 History (Jardiance) allopurinol 300 mg tablet 300 mg PO HS 03/25/21 04/15/21 History metoprolol succinate 25 mg 25 mg PO QAM 30 Days #30 tab 04/03/21 04/15/21 Rx tablet,extended release 24 hr multivitamin with folic acid 400 1 tab PO QAM 30 Days #30 tab 04/03/21 04/15/21 Rx mcg tablet (Daily-Karla (with folic acid)) acetaminophen 325 mg tablet 650 mg PO Q6 PRN MDD 3g 04/15/21 04/15/21 History amoxicillin 875 mg-potassium 1 tab PO Q12H 04/15/21 04/15/21 History clavulanate 125 mg tablet (Augmentin) ascorbic acid (vitamin C) 1,000 mg 1 g PO BID 04/15/21 04/15/21 History tablet (Vitamin C) doxycycline hyclate 100 mg tablet 100 mg PO BID 04/15/21 04/15/21 History guaifenesin 600 mg tablet, 600 mg PO Q12H 04/15/21 04/15/21 History extended release 12 hr oxycodone 5 mg tablet 5 mg PO Q4 PRN 04/15/21 04/15/21 History potassium chloride 20 mEq 20 meq PO DAILY 04/15/21 04/16/21 History tablet,extended release(part/cryst) (Klor-Con M) sennosides 8.6 mg-docusate sodium 1 tab-cap PO BID 04/15/21 04/15/21 History 50 mg tablet (Senokot-S) warfarin 5 mg tablet 5 mg PO QPM 04/15/21 04/15/21 History Patient History Medical History Bronchiectasis Chronic kidney disease stage 3 Chronic left ventricular systolic heart failure Chronic respiratory failure with hypoxia and hypercapnia COPD (chronic obstructive pulmonary disease) Coronary artery disease "S/P inferior SC, severe multivessel disease not amenable to intervention" per 2012 cath Diabetes mellitus, type 2 IDDM Diabetic foot ulcer Diastolic dysfunction GERD (gastroesophageal reflux disease) Gout Hearing deficit BL KOO History of CVA (cerebrovascular accident) "YEARS AGO" - reports he has had a tremor ever since stroke. denies additional residual effects History of depression History of DVT (deep vein thrombosis) "YEARS AGO" ETIOLOGY UNK - ON WARFARIN History of pancreatitis History of pulmonary embolism on retirement coumadin History of tachycardia-bradycardia syndrome HLD (hyperlipidemia) Ischemic cardiomyopathy MRSA infection Myocardial Infarction "YEARS AGO" Nephrolithiasis On home oxygen therapy 2 LPM DAILY PRN (secondary to chronic respiratory failure) Osteoarthritis PAD (peripheral artery disease) PAF (paroxysmal atrial fibrillation) DX "years ago" - ON COUMADIN - FOLLOWS W/ DR. CRANE Seizure QUESTIONABLE- EEG 1 WEEK AGO FOR QUESTIONABLE SEIZURE (reported convulsions, loss of consciousness 1 week ago while watching TV) - [facility] - EEG unremarkable Tremor Venous stasis ulcers of both lower extremities Surgical History History of bronchoscopy History of cardiac cath MULTIPLE - NO STENTS [place] (could not recall dates - most recent in system is from 2011 [place]) History of cholecystectomy 2014 History of incision of pericardium pericardial window secondary to pericardial effusion History of pacemaker PLACED 10/2017 FOR TACHY-SARA SYNDROME - [employer] - LAST CHECKED 05/2019 History of tonsillectomy S/P cystoscopy with ureteral stent placement 07/25/2019 [facility] 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 Quit in 1971; Second Hand Exposure: No; Hx Alcohol Use: Yes Alcohol type: beer and hard liquor Hx Substance Use: No Preferred Language: Romanian Communication Ability: Effective Plating [employer] Point Assembly Supervisor Required: No Beliefs That Will Affect Care: None marital status: Current Living Situation: Senior Care current occupation: Formally employed by [employer] with nickel and zinc oxide exposure x 17 years Feels Safe at Home: Yes Assistive Devices: Walker and Wheelchair Review of Systems Review of Systems: Unobtainable due to cognitive status Physical Exam Constitutional: + frail appearing; no acute distress Neck: normal visual inspection Respiratory: no respiratory distress and no labored breathing Gastrointestinal (Abdomen): Inspection/Auscultation: abdomen normal to inspection Percussion/Palpation: abdomen soft; abdomen nontender and no guarding Skin: Sacral ulcer dressing intact Neurologic: awake Psychiatric: Orientation: alert, oriented to person and cooperative Genitourinary: no CVA tenderness Cisneros catheter intact Results & Data ([facility]) Vital Signs (Past 12 Hours) Vital Signs Temp Pulse Resp BP Pulse Ox 04/16/21 08:26 97 04/16/21 08:00 36.9 C 120 H 22 106/48 L 97 04/16/21 04:00 112/54 L 04/16/21 03:35 36.8 C 117 H 24 170/75 H 99 04/16/21 02:45 126 H 86/58 L PG Care Time/CCT Total # of Minutes Spent Total Time Spent with Patient: Total time spent is greater than 50% in coordination of care (as documented) at patient's floor/unit and/or counseling patient: Coding Level of Care Code 73492 Initial Inpt Care Lvl 2 Diagnoses Ureteral calculus, right N20.1
[2021-04-16] MEDS: guaiFENesin 600 MG TABCR PO SCH ×2 (10:39→20:49)
[2021-04-16] MEDS: POTASSIUM CHLORIDE CRTAB 20 MEQ TABCR PO SCH (10:39)
[2021-04-16] MEDS: DOCUSATE SODIUM/SENNA 50/8.6MG TAB PO SCH ×2 (10:39→20:48)
[2021-04-16] MEDS: ASCORBIC ACID 500 MG TAB PO SCH ×2 (10:39→20:49)
[2021-04-16] MEDS: MULTIVITAMIN TAB PO SCH (10:40)
[2021-04-16] MEDS ORDERED: PIPERACILLIN/TAZOBACTAM 4.5 GM/120ML D5W IV ONE (10:41)
--- NOTE | 2021-04-16 13:05 | Cardiology Consultation ---
Date of Consultation April 16, 2021 Assessment & Plan (1) Atrial fibrillation with rapid ventricular response: (2) Sepsis: 75-year-old male with chronic stable exertional angina, deemed to have inoperable coronary heart disease in the remote past, chronic systolic heart failure, LVEF in the range of 35 to 40% presents with lethargy, concerns for sepsis, possible sources include left sacral decubitus ulcer, urinary source with ureteral calculi noted. EKG performed 04/15/2021 1800 reveals atrial fibrillation at 125 bpm, age undetermined inferior infarct pattern, no significant ST depression. Has a history of past heel ulcer. He has been treated for enterococcal faecalis bacteremia on 2 of 2 blood cultures obtained 01/18/2021, with work-up included negative [place] at that time. INR on presentation was 1.7. Agree with heparin infusion due to subtherapeutic INR. Patient underwent bedside debridement by general surgery earlier today. He has a history of paroxysmal atrial fibrillation, tachycardia-bradycardia syndrome, and has a pacemaker. Typically he is on metoprolol succinate 25 mg by mouth daily, will resume oral metoprolol as tolerated with short acting metoprolol tartrate, and continued diltiazem as necessary for additional rate control at present. Anticipate his rates will be difficult to control until infectious issues improved. History of Present Illness Attending Physician: Tomy Troy MD History of Present Illness Mr Canseco is a 75 year old male seen in cardiology consultation for evaluation of atrial fibrillation with rapid ventricular response, with known history of congestive heart failure and coronary heart disease. Patient is well-known to our cardiology service and has been seen on multiple hospital stays within the last year, most recently in March when he presented with a left intertrochanteric hip fracture after a fall and underwent left trochanteric femoral nail internal fixation 03/29/2021. He has been noted to have progressive change in mental status, with findings of a progressive left sacral decubitus ulcer as well as an obstructive calculus in the distal right ureter with hydronephrosis. He has been found to have reverted to atrial fibrillation, with mildly elevated ventricular rates in the range of 100 to 115 bpm, at the time my assessment, in addition to receiving IV antibiotics, he was receiving normal saline at 100 mils per hour, IV diltiazem at 10 mg/h and a heparin infusion for subtherapeutic international normalized ratio. At the time my assessment, the patient is unable to provide significant subjective history other than he had been recently transition from rehab back to home living with his spouse. Problem List: 1. Coronary artery disease, status post inferior wall myocardial infarction with severe multivessel coronary artery disease, deemed nonamenable to intervention or surgical revascularization at cardiac catheterization 2011, chronic stable angina pectoris 2. Ischemic cardiomyopathy, with moderate left dysfunction EF approximately 35-40%, January, 3. Paroxysmal atrial fibrillation, atrial flutter, on coumadin 4. History of DVT and pulmonary embolism, on chronic Coumadin therapy. 5. Hyperlipidemia. 6. History of pericardial effusion, status post window and drainage. 7. History of vasovagal/cough/orthostatic syncope. 8. COPD/chronic bronchiectasis 9. Peripheral arterial disease. 10. 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 neuropathy 11. Chronic kidney disease. 12. Tachybrady syndrome, status post permanent pacemaker placement 10/19/2017, [employer] Model: Amanda XT 13. Chronic venous insufficiency 14. Enterococcus faecalis sepsis in association with pulmonary embolus January 2021 15. Fall, left intertrochanteric hip fracture, for which patient underwent left trochanteric femoral nail internal fixation, 03/29/2021. Allergies Allergy/AdvReac Type Severity Reaction Status Date / Time albuterol Allergy Severe CHOKING Verified 04/15/21 19:16 SENSATION ipratropium Allergy Severe CHOKING Verified 04/15/21 19:16 SENSATION onion Allergy Intermediate RASH Verified 04/15/21 19:16 levofloxacin Allergy Mild other Verified 04/15/21 19:16 spironolactone AdvReac Severe Problems Unverified 04/15/21 19:16 with breathing atorvastatin AdvReac Intermediate Muscle Pain Verified 04/15/21 19:16 metformin AdvReac Intermediate Diarrhea Verified 04/15/21 19:16 Home Medications Medication Instructions Recorded Confirmed Type insulin glargine 100 unit/mL (3 10 unit SUBCUT HS 04/11/18 04/15/21 History mL) subcutaneous pen (Lantus Solostar U-100 Insulin) montelukast 10 mg tablet 10 mg PO HS 04/11/18 04/15/21 History (Singulair) nitroglycerin 0.4 mg sublingual 0.4 mg SUBLINGUAL UD PRN 04/11/18 04/15/21 History tablet primidone 250 mg tablet (Mysoline) 500 mg PO HS 04/11/18 04/15/21 History rosuvastatin 40 mg tablet (Crestor) 40 mg PO HS 04/11/18 04/15/21 History aspirin 325 mg tablet 325 mg PO HS 08/08/19 04/15/21 History ferrous sulfate 325 mg (65 mg 325 mg PO Q OTHER DAY 01/09/20 04/15/21 History iron) tablet (iron) empagliflozin 10 mg tablet 10 mg PO HS 10/18/20 04/15/21 History (Jardiance) allopurinol 300 mg tablet 300 mg PO HS 03/25/21 04/15/21 History metoprolol succinate 25 mg 25 mg PO QAM 30 Days #30 tab 04/03/21 04/15/21 Rx tablet,extended release 24 hr multivitamin with folic acid 400 1 tab PO QAM 30 Days #30 tab 04/03/21 04/15/21 Rx mcg tablet (Daily-Karla (with folic acid)) acetaminophen 325 mg tablet 650 mg PO Q6 PRN MDD 3g 04/15/21 04/15/21 History amoxicillin 875 mg-potassium 1 tab PO Q12H 04/15/21 04/15/21 History clavulanate 125 mg tablet (Augmentin) ascorbic acid (vitamin C) 1,000 mg 1 g PO BID 04/15/21 04/15/21 History tablet (Vitamin C) doxycycline hyclate 100 mg tablet 100 mg PO BID 04/15/21 04/15/21 History guaifenesin 600 mg tablet, 600 mg PO Q12H 04/15/21 04/15/21 History extended release 12 hr oxycodone 5 mg tablet 5 mg PO Q4 PRN 04/15/21 04/15/21 History potassium chloride 20 mEq 20 meq PO DAILY 04/15/21 04/16/21 History tablet,extended release(part/cryst) (Klor-Con M) sennosides 8.6 mg-docusate sodium 1 tab-cap PO BID 04/15/21 04/15/21 History 50 mg tablet (Senokot-S) warfarin 5 mg tablet 5 mg PO QPM 04/15/21 04/15/21 History Patient History Medical History Bronchiectasis Chronic kidney disease stage 3 Chronic left ventricular systolic heart failure Chronic respiratory failure with hypoxia and hypercapnia COPD (chronic obstructive pulmonary disease) Coronary artery disease "S/P inferior [place], severe multivessel disease not amenable to intervention" per 2012 cath Diabetes mellitus, type 2 IDDM Diabetic foot ulcer Diastolic dysfunction GERD (gastroesophageal reflux disease) Gout Hearing deficit BL KOO History of CVA (cerebrovascular accident) "YEARS AGO" - reports he has had a tremor ever since stroke. denies additional residual effects History of depression History of DVT (deep vein thrombosis) "YEARS AGO" ETIOLOGY UNK - ON WARFARIN History of pancreatitis History of pulmonary embolism on correction coumadin History of tachycardia-bradycardia syndrome HLD (hyperlipidemia) Ischemic cardiomyopathy MRSA infection Myocardial Infarction "YEARS AGO" Nephrolithiasis On home oxygen therapy 2 LPM DAILY PRN (secondary to chronic respiratory failure) Osteoarthritis PAD (peripheral artery disease) PAF (paroxysmal atrial fibrillation) DX "years ago" - ON COUMADIN - FOLLOWS W/ DR. CRANE Seizure QUESTIONABLE- EEG 1 WEEK AGO FOR QUESTIONABLE SEIZURE (reported convulsions, loss of consciousness 1 week ago while watching TV) - [place] [facility] - EEG unr emarkable Tremor Venous stasis ulcers of both lower extremities Surgical History History of bronchoscopy History of cardiac cath MULTIPLE - NO STENTS [place] (could not recall dates - most recent in system is from 2011 [place]) History of cholecystectomy 2014 History of incision of pericardium pericardial window secondary to pericardial effusion History of pacemaker PLACED 10/2017 FOR TACHY-SARA SYNDROME - [employer] - LAST CHECKED 05/2019 History of tonsillectomy S/P cystoscopy with ureteral stent placement 07/25/2019 [facility] 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 Quit in 1971; Second Hand Exposure: No; Hx Alcohol Use: Yes Alcohol type: beer and hard liquor Hx Substance Use: No Preferred Language: Yemeni Communication Ability: Effective Therapist Phys Required: No Beliefs That Will Affect Care: None marital status: Current Living Situation: Senior Living current occupation: Formally employed by [employer] with nickel and zinc oxide exposure x 17 years Feels Safe at Home: Yes Assistive Devices: Walker and Wheelchair Review of Systems Review of Systems: Unobtainable due to reduced consciousness Physical Exam Physical Exam: Temp Pulse Resp BP Pulse Ox 36.9 C 109 H 31 H 100/60 100 04/16/21 08:00 04/16/21 11:45 04/16/21 11:45 04/16/21 11:45 04/16/21 11:45 Respiratory: Mildly decreased breath sounds the bases Cardiovascular: Rate/Rhythm: + tachycardic and + irregularly irregular Heart Sounds: no murmur Extremities: no edema Neurologic: Lethargic, without focal deficits Results & Data ([facility]) Vital Signs (Past 12 Hours) Vital Signs Temp Pulse Pulse Resp BP BP Pulse Ox 04/16/21 11:45 109 H 31 H 100/60 100 04/16/21 11:30 103 H 27 H 102/51 L 100 04/16/21 11:15 109 H 14 95/49 L 100 04/16/21 11:00 105 H 15 101/49 L 100 04/16/21 10:45 107 H 19 100/53 L 99 04/16/21 10:30 105 H 17 97/47 L 97 04/16/21 10:15 108 H 20 95/49 L 100 04/16/21 10:00 112 H 17 92/50 L 100 04/16/21 09:45 98 H 18 101/54 L 99 04/16/21 09:30 109 H 16 81/49 L 97 04/16/21 09:15 107 H 17 100/58 L 97 04/16/21 09:00 113 H 24 107/57 L 97 04/16/21 08:45 110 H 15 99/56 L 96 04/16/21 08:30 123 H 18 98/53 L 94 04/16/21 08:26 97 04/16/21 08:16 125 H 16 98/44 L 98 04/16/21 08:00 36.9 C 145 H 120 H 20 82/69 L 106/48 L 95 04/16/21 07:42 132 H 16 104/57 L 100 04/16/21 07:00 115 H 19 104/40 L 95 04/16/21 04:00 112/54 L 04/16/21 03:35 36.8 C 117 H 24 170/75 H 99 04/16/21 02:45 126 H 86/58 L
[2021-04-16 13:09] LABS: Partial Thromboplastin Time 130.5 Seconds (21.0-31.0)
[2021-04-16] MEDS: WARFARIN SOD 5 MG TAB PO SCH (16:13)
--- NOTE | 2021-04-16 17:39 | Hospitalist Progress Note ---
Date of Service April 16, 2021 Assessment & Plan (1) Sepsis: Plan: Sepsis secondary to worsening/new sacral decubitus ulcer that is unstageable and foul-smelling. This is most likely source of sepsis with blood cultures pending. He also has a right ureteral stone that is obstructing the ureter with persistent hydronephrosis and hydroureter. Continue broad-spectrum antibiotics with Dapto and Zosyn which was started in the ER. Lactate is elevated. -And normalized IV fluids for resuscitation cautiously in the setting of poor ejection fraction. Clinically a little bit better though blood pressure remains the lower side at systolic 90 (2) PAF (paroxysmal atrial fibrillation): Plan: Currently in rapid ventricular response secondary to sepsis. IV fluids, broad- spectrum antibiotics. With heart rate jumping into the 150s and 160s he was started on diltiazem. Continue IV fluids and diltiazem drip with close monitoring in PCU Appreciate golf professional input and recommendation (3) Decubitus ulcer of sacral area: Plan: Foul-smelling, unstageable. General surgery consulted. Wound nurse consulted. Turn every 2 and keep him off this area. Status post surgical debridement of the sacral wound Continue with wound care management (4) Ureteral calculus, right: Plan: Consult urology, hydrate. Would consider adding Flomax once he is more hemodynamically stable and resuscitated from a sepsis standpoint. Appreciate urology input and recommendation (5) Post-operative state: Plan: Underwent left trochanteric femoral nail of left hip fracture by Dr. Woo on 03/29/2021. He should be partial weightbearing for 6 weeks postop. PT/OT to assess prior to returning to Center care. Continue pain control efforts. (6) Diabetes mellitus, type 2: Plan: Hold home oral medications. Continue with basal bolus insulin. As patient is currently n.p.o. first dose of glargine is scheduled for this evening at 2100. (7) Ischemic cardiomyopathy: Plan: Chronic, stable. Patient is euvolemic to dry on exam and no evidence of acute coronary syndrome. Appreciate cardiology input and recommendation (8) Coronary artery disease: Plan: Chronic, stable, continue current medical management No acute cardiac symptoms (9) Chronic kidney disease stage 3: Plan: Creatinine is at baseline 1.1 (10) DVT prophylaxis: Plan: warfarin, currently subtherapeutic. Add heparin Full Code Dispo-to PCU Admission and Anticipated Discharge Date Admission Date: April 15, 2021 Subjective 04/16/2021 The patient was seen and examined in ICU He remains very weak and lethargic and has moderate shortness of breath at rest Denies any significant pain Review of Systems Review of Systems: All systems reviewed and are unremarkable except as noted below Physical Exam Physical Exam: Lying in bed with acute distress Constitutional: well developed, well nourished, + ill appearing and + obese Eyes: PERRL, conjunctivae normal, anicteric sclerae ENMT: external ear and nose normal, oropharynx normal Neck: trachea midline, no thyromegaly Respiratory: + respiratory distress and + labored breathing Auscultation: + diminished lung sounds, + crackles (Bilaterally) and + rales Cardiovascular: Rate/Rhythm: regular rate, regular rhythm and + tachycardic Heart Sounds: normal S1 and normal S2 Extremities: + edema (Trace edema bilaterally) Gastrointestinal (Abdomen): Inspection/Auscultation: abdomen not distended Percussion/Palpation: abdomen soft; abdomen nontender Skin: Status post drainage of sacral decubiti. Which is bandaged right now Neurologic: Alert, awake and oriented x3. Generally weak and lethargic Results & Data Results & Data ([facility]) Vital Signs (Past 12 Hours) Vital Signs Temp Pulse Pulse Resp BP BP Pulse Ox 04/16/21 16:16 36.8 C 99 H 18 90/46 L 93 04/16/21 14:07 36.8 C 100 H 20 93/46 L 100 04/16/21 11:45 109 H 31 H 100/60 100 04/16/21 11:30 103 H 27 H 102/51 L 100 04/16/21 11:15 109 H 14 95/49 L 100 04/16/21 11:00 105 H 15 101/49 L 100 04/16/21 10:45 107 H 19 100/53 L 99 04/16/21 10:30 105 H 17 97/47 L 97 04/16/21 10:15 108 H 20 95/49 L 100 04/16/21 10:00 112 H 17 92/50 L 100 04/16/21 09:45 98 H 18 101/54 L 99 04/16/21 09:30 109 H 16 81/49 L 97 04/16/21 09:15 107 H 17 100/58 L 97 04/16/21 09:00 113 H 24 107/57 L 97 04/16/21 08:45 110 H 15 99/56 L 96 04/16/21 08:30 123 H 18 98/53 L 94 04/16/21 08:26 97 04/16/21 08:16 125 H 16 98/44 L 98 04/16/21 08:00 36.9 C 145 H 120 H 20 82/69 L 106/48 L 95 04/16/21 07:42 132 H 16 104/57 L 100 04/16/21 07:00 115 H 19 104/40 L 95 Laboratory Results Short CBC 04/16/21 Range/Units 06:00 WBC 10.69 (4.8-10.8) K/uL Hgb 10.8 L (14.0-18.0) g/dL Hct 34.7 L (42-52) % Plt Count 234 (130-400) K/uL BMP 04/15/21 04/16/21 17:47 05:59 Sodium 139 140 Potassium 4.1 D Chloride 100 103 Carbon Dioxide 21 23 BUN 25 H 23 H Creatinine 1.11 1.01 Glucose 169 H 136 H Calcium 9.2 9.0 Cardiac Enzymes 04/15/21 Range/Units 17:47 Troponin I < 0.015 (0-0.045) ng/ml Liver Function 04/15/21 Range/Units 17:47 Total Bilirubin 0.5 (0.2-1) mg/dl AST 64 H (15-37) U/L ALT 33 (12-78) U/L Alkaline Phosphatase 151 H (45-117) U/L Albumin 2.0 L (3.4-5.0) gm/dl Medications Administered Current Inpatient Medications Acetaminophen (Acetaminophen 325 Mg Tab) 650 mg PO Q4H PRN PRN Reason: Pain or Fever Stop: 05/16/21 01:00 Acetaminophen (Acetaminophen 500 Mg Tab) 1,000 mg PO Q8 ANNA Stop: 05/16/21 05:59 Last Admin: 04/16/21 14:29 Dose: Not Given Documented by: Allopurinol (Allopurinol 300 Mg Tab) 300 mg PO HS ANNA Stop: 05/16/21 20:59 Ascorbic Acid (Ascorbic Acid 500 Mg Tab) 1,000 mg PO BID ANNA Stop: 04/22/21 21:01 Last Admin: 04/16/21 10:39 Dose: 1,000 mg Documented by: Aspirin (Aspirin 325 Mg Ectab) 325 mg PO HS [facility] Stop: 05/16/21 20:59 Dextrose (Dextrose 50% 50 Ml Syringe) 25 - 50 ml IV UD PRN; Protocol PRN Reason: Hypoglycemia Protocol Stop: 05/16/21 05:37 Glucagon (Glucagon For Inj 1 Mg Vial) 1 mg SQ UD PRN; Protocol PRN Reason: Hypoglycemia Protocol Stop: 05/16/21 05:37 Glucose (Glucose 10 Tabs/Tube) 4 - 8 tabs PO UD PRN; Protocol PRN Reason: Hypoglycemia Protocol Stop: 05/16/21 05:37 Glucose (Glucose 40% Gel 15 Gm Tube) 15 - 30 gm PO UD PRN; Protocol PRN Reason: Hypoglycemia Protocol Stop: 05/16/21 05:37 Guaifenesin (Guaifenesin 600 Mg Tabcr) 600 mg PO Q12 [facility] Stop: 04/20/21 21:01 Last Admin: 04/16/21 10:39 Dose: 600 mg Documented by: Diltiazem HCl 125 mg/ Dextrose 125 mls @ 10 mls/hr IV .[id number] [facility]; Protocol Stop: 05/16/21 00:59 Last Admin: 04/16/21 16:58 Dose: 10 mg/hr, 10 mls/hr Documented by: Piperacillin Sod/Tazobactam (Sod 3.375 gm/ Dextrose) 115 mls @ 28.75 mls/hr IV Q8H [facility]; Protocol Stop: 04/23/21 01:29 Last Admin: 04/16/21 16:59 Dose: 28.8 mls/hr Documented by: Sodium Chloride (Nss 1000ml) 1,000 mls @ 60 mls/hr IV .[id number] [facility] Stop: 05/16/21 05:29 Last Admin: 04/16/21 16:58 Dose: 100 mls/hr Documented by: Heparin Sodium/Dextrose (Heparin Sodium/Dextrose) 25,000 units in 500 mls @ 23 mls/hr IV .[id number] ANNA; Protocol Stop: 05/16/21 05:59 Last Titration: 04/16/21 15:30 Dose: 1,150 units/hr, 23 mls/hr Documented by: Daptomycin 475 mg/ Syringe 9.5 mls @ 5.5 mls/min IV Q24H [facility]; Protocol Stop: 04/23/21 17:59 Last Admin: 04/16/21 17:54 Dose: 5.5 mls/min Documented by: Insulin Aspart (Insulin Aspart 100 Units/Ml 3 Ml Pen) 0 units SC ACHS ANNA Stop: 05/16/21 07:29 Last Admin: 04/16/21 17:00 Dose: 1 units Documented by: Insulin Glargine (Insulin Glargine Solostar 100 Units/Ml 3 Ml Pen) 15 units SC BID [facility] Stop: 05/16/21 20:59 Miscellaneous (Carbohydrates For Hypoglycemia ) 15 - 30 gm PO UD PRN PRN Reason: Hypoglycemia Protocol Stop: 05/16/21 05:37 Miscellaneous Information (Piperacill/Tazobac Consult Active) 1 ea N/A UD PRN PRN Reason: Consult Stop: 05/15/21 16:20 Miscellaneous Information (Daptomycin Consult Active) 1 ea N/A UD PRN PRN Reason: Consult Stop: 05/15/21 17:19 Montelukast Sodium (Montelukast Sodium 10 Mg Tablet) 10 mg PO HS [facility] Stop: 05/16/21 20:59 Morphine Sulfate (Morphine Sulfate 4 Mg/Ml 1 Ml Carp\Vial) 4 mg IV Q4H PRN PRN Reason: severe breakthrough pain Stop: 04/30/21 05:36 Multivitamins (Multivitamin Tab) 1 tab PO QAM [facility] Stop: 05/16/21 08:59 Last Admin: 04/16/21 10:40 Dose: Not Given Documented by: Ondansetron HCl (Ondansetron Inj 2 Mg/Ml 2 Ml Vial) 4 mg IV Q6H PRN PRN Reason: Nausea Stop: 05/16/21 01:00 Polyethylene Glycol (Polyethylene (Miralax) 17 Gm Pack) 17 gm PO DAILY PRN PRN Reason: Constipation Stop: 05/16/21 01:00 Potassium Chloride (Potassium Chloride Crtab 20 Meq Tabcr) 20 meq PO DAILY ANNA Stop: 05/16/21 08:59 Last Admin: 04/16/21 10:39 Dose: 20 meq Documented by: Primidone (Primidone 250 Mg Tab) 500 mg PO HS [facility] Stop: 05/16/21 20:59 Senna/Docusate Sodium (Docusate Sodium/Senna 50/8.6mg Tab) 1 tab PO BID [facility] Stop: 05/16/21 08:59 Last Admin: 04/16/21 10:39 Dose: 1 tab Documented by: Tramadol HCl (Tramadol Hcl 50 Mg Tablet) 50 mg PO Q8 [facility] Stop: 05/16/21 05:59 Last Admin: 04/16/21 14:29 Dose: Not Given Documented by: Warfarin Sodium (Warfarin Sod 5 Mg Tab) 5 mg PO DAILY@1600 [facility] Stop: 05/16/21 15:59 Last Admin: 04/16/21 16:13 Dose: Not Given Documented by: (1) Decubitus ulcer of sacral area Pressure injury stage: unstageable Qualified Code(s): L89.150 - Pressure ulcer of sacral region, unstageable
[2021-04-16] MEDS: DAPTOmycin 475 MG in SYRINGE 0 ML IV SCH (17:54)
[2021-04-16] MEDS ORDERED: DAPTOmycin 550 MG in SYRINGE 0 ML IV SCH (18:00)
[2021-04-16] MEDS ORDERED: DAPTOmycin 325 MG in SYRINGE 0 ML IV SCH (18:00)
[2021-04-16] MEDS: allopurinoL 300 MG TAB PO SCH (20:48)
[2021-04-16] MEDS: PRIMIDONE 250 MG TAB PO SCH (20:48)
[2021-04-16] MEDS: ASPIRIN 325 MG ECTAB PO SCH (20:49)
[2021-04-16] MEDS: MONTELUKAST SODIUM 10 MG TABLET PO SCH (20:49)
[2021-04-16] MEDS: INSULIN GLARGINE SOLOSTAR 100 UNITS/ML 3 ML PEN SC SCH (21:08)
[2021-04-16 22:14] LABS: Partial Thromboplastin Ratio 3.9
--- NOTE | 2021-04-16 22:17 | Electrocardiogram Report ---
Test Reason : Blood Pressure : / mmHG Vent. Rate : 125 BPM Atrial Rate : 117 BPM P-R Int : 000 ms QRS Dur : 098 ms QT Int : 350 ms P-R-T Axes : 000 071 -40 degrees QTc Int : 505 ms Atrial fibrillation with rapid ventricular response Low voltage QRS Nonspecific T wave abnormality Abnormal ECG When compared with ECG of 31-MAR-2021 00:51, ST no longer depressed in Lateral leads T wave inversion no longer evident in Lateral leads Confirmed by Serjio Huitron ([id number]) on 04/16/2021 10:17:30 PM Referred By: REFERRED SELF Confirmed By:Serjio Huitron
[2021-04-16 22:22] LABS: Partial Thromboplastin Time 103.2 Seconds (21.0-31.0)
[2021-04-17] MEDS: PIPERACILLIN/TAZOBACTAM 3.375 GM in DEXTROSE 5% 100 ML IV SCH ×3 (01:38→17:05)
[2021-04-17 04:10] LABS: Basophils # (auto) 0.02 K/uL (0-0.2); Basophils % (auto) 0.2 %; Eosinophils # (auto) 0.18 K/uL (0-0.5); Hematocrit (blood only) 34.2 % (42-52); Hemoglobin 10.5 g/dL (14.0-18.0); Immature Granulocytes # (auto) 0.03 K/uL (0.00-0.02); Immature Granulocytes % (auto) 0.3 %; Lymphocytes # (auto) 0.73 K/uL (1.2-3.4); Lymphocytes % (auto) 8.1 %; Mean Corpuscular Hgb Conc 30.7 g/dL (32-36); Mean Corpuscular Volume 97.7 fL (80-100); Mean Platelet Volume 10.4 fL (7.4-10.4); Monocytes # (auto) 0.59 K/uL (0.11-0.59); Monocytes % (auto) 6.5 %; Neutrophils # (auto) 7.49 K/uL (1.4-6.5); Neutrophils % (auto) 82.9 %; Platelet Count 181 K/uL (130-400); RDW Standard Deviation 61.2 fL (36.4-46.3); White Blood Count 9.04 K/uL (4.8-10.8)
[2021-04-17 04:32] LABS: INR 1.8 (0.9-1.1); Partial Thromboplastin Ratio 3.4; Prothrombin Time 17.7 Seconds (9.0-12.0)
[2021-04-17] MEDS: MoRPHine SULFATE 4 MG/ML 1 ML CARP\\VIAL IV PRN (04:43)
[2021-04-17] MEDS ORDERED: FUROSEMIDE 20 MG in SYRINGE 0 ML IV ONE (05:00)
[2021-04-17 05:01] LABS: Partial Thromboplastin Time 88.3 Seconds (21.0-31.0)
[2021-04-17 05:04] LABS: Albumin Globulin Ratio 0.3 (0.9-2); Albumin Level 1.7 gm/dl (3.4-5.0); BUN Creatinine Ratio 20.2 (10-20); Bilirubin,Total 0.4 mg/dl (0.2-1); Calcium 8.6 mg/dl (8.5-10.1); Creatinine Clr Calc Pharmacy 81.7 ml/min; Est GFR (African American) 96.6 ml/min; Est GFR (Non-African American) 83.3 ml/min; Globulin 4.9 gm/dl (2.5-4.0); Magnesium 1.4 mg/dl (1.8-2.4); Phosphorus 2.4 mg/dl (2.5-4.9); Potassium 3.1 mmol/L (3.5-5.1); Total Protein 6.6 gm/dl (6.4-8.2)
[2021-04-17] MEDS: ALBUMIN 25% 12.5 GM/50 ML VIAL IV SCH ×2 (05:28→06:30)
[2021-04-17] MEDS: dilTIAZem HCL 125 MG in DEXTROSE 5% 100 ML IV SCH ×3 (05:29→16:17)
[2021-04-17] MEDS: ACETAMINOPHEN 500 MG TAB PO SCH ×3 (05:42→23:16)
[2021-04-17] MEDS: traMADol HCL 50 MG TABLET PO SCH ×3 (05:42→21:21)
[2021-04-17] MEDS: HEPARIN SODIUM/DEXTROSE 25,000 UNITS/500 ML BAG IV SCH (06:15)
[2021-04-17] MEDS ORDERED: POTASSIUM CHLORIDE CRTAB 20 MEQ TABCR PO STA (08:38)
[2021-04-17] MEDS ORDERED: POTASSIUM PHOS 3 MMOL/1 ML INFUSION IV STA (08:38)
[2021-04-17] MEDS: INSULIN ASPART 100 UNITS/ML 3 ML PEN SC SCH ×4 (08:59→21:23)
[2021-04-17] MEDS ORDERED: POTASSIUM PHOSPHATE 24 MMOL in SODIUM CHLORIDE 0.9% 500 ML IV ONE (09:00)
[2021-04-17] MEDS: INSULIN GLARGINE SOLOSTAR 100 UNITS/ML 3 ML PEN SC SCH ×2 (09:17→21:24)
[2021-04-17] MEDS: POTASSIUM CHLORIDE CRTAB 20 MEQ TABCR PO SCH (09:17)
[2021-04-17] MEDS: MAGNESIUM SULFATE / D5W 1 GM/100 ML BAG IV SCH ×2 (09:17→11:47)
[2021-04-17] MEDS: ASCORBIC ACID 500 MG TAB PO SCH ×2 (09:17→21:20)
[2021-04-17] MEDS: guaiFENesin 600 MG TABCR PO SCH ×2 (09:18→21:20)
[2021-04-17] MEDS: MULTIVITAMIN TAB PO SCH (09:18)
[2021-04-17] MEDS: DOCUSATE SODIUM/SENNA 50/8.6MG TAB PO SCH ×2 (09:20→21:20)
--- NOTE | 2021-04-17 09:44 | XRay Report ---
XR chest 1V portable INDICATION: MN ^coarse bs . TECHNIQUE: Single frontal radiograph of the chest was obtained. Comparison: None available at the time of this dictation. FINDINGS: Stable dual lead pacemaker. The cardiomediastinal silhouette is normal. Lungs are underinflated. Line ar densities are noted in the bilateral lower lungs. There are also ill-defined lower lobe predominan t airspace opacities. Cephalization of the vasculature and Patrick B lines are seen. There is likely a small right pleural effusion. IMPRESSION: 1. Bilateral lower lung airspace opacities likely represent atelectasis with or without superimposed pneumonia and/or aspiration. 2. Moderate pulmonary edema. 3. Small right pleural effusion. ACT 112: Negative or not required by law. Electronically signed by: Oleg Fitch M.D. 04/17/2021 9:43 AM
--- NOTE | 2021-04-17 10:14 | Urology Progress Note ---
Date of Service April 17, 2021 Assessment & Plan (1) Ureteral calculus, right: Plan: Right ureteral stone; urinary retention; sepsis -likely secondary to sacral decubitus ulcer His sacral decub is currently growing Proteus Urine cultures preliminarily been negative His blood cultures are preliminarily negative Overall it seems that the sacral decub is likely the source of his infection rather than his urinary system He also seems to be minimally symptomatic to asymptomatic from the right ureteral calculus With this in mind I think continued observation and treatment for sepsis should be priority #1 with delayed treatment of the right ureteral stone With appropriate delay he likely could have a solitary surgery to treat the stone and resolve the issue rather than staged stent placement followed by definitive surgery We will continue to follow to ensure we do not need to change our plan but for now we will plan to delay any intervention Admission and Anticipated Discharge Date Admission Date: April 15, 2021 Subjective Remains confused Remains in ICU Relatively stable from a hemodynamic standpoint Physical Exam Physical Exam: Sacral wound is dressed Urine is clear Constitutional: well developed and well nourished Respiratory: no respiratory distress Cardiovascular: Extremities: no pedal edema Gastrointestinal (Abdomen): Inspection/Auscultation: abdomen normal to inspection Results & Data ([facility]) Vital Signs (Past 12 Hours) Vital Signs Temp Pulse Pulse Resp BP Pulse Ox 04/17/21 06:43 92 H 04/17/21 05:41 97 H 16 113/51 L 04/17/21 04:37 36.6 C 103 H 15 111/84 04/17/21 01:23 93 H 14 98/61 L 04/17/21 00:23 36.6 C 97 H 16 109/58 L 93 04/16/21 23:23 36.7 C 96 H 16 98 04/16/21 22:23 96 H 20 120/53 L 100 PG Care Time/CCT Total # of Minutes Spent Total Time Spent with Patient: Total time spent is greater than 50% in coordination of care (as documented) at patient's floor/unit and/or counseling patient: Coding Level of Care Code 20066 Subseq Hosp Care Lvl 3 Diagnoses Ureteral calculus, right N20.1
--- NOTE | 2021-04-17 11:00 | Cardiology Progress Note ---
Date of Service April 17, 2021 Assessment & Plan (1) Atrial fibrillation with rapid ventricular response: (2) Sepsis: Plan: 75-year-old male with sepsis secondary to sacral decubitus ulcer status post debridement, chronic stable exertional angina, deemed to have inoperable coronary heart disease in the remote past, chronic systolic heart failure, LVEF in the range of 35 to 40%. History of paroxysmal atrial fibrillation with tachybradycardia syndrome and pacemaker placement. Wound culture growing Proteus mirabilis. Blood culture negative to date. Heart rate remains borderline elevated. IV diltiazem infusing at 5 mg/h. Recommend restart low-dose metoprolol tartrate. Outpatient beta-isaías dose, Toprol-XL 25 mg daily. INR remains subtherapeutic today, 1.8. Continue IV heparin infusion. Repeat INR in a.m. Has a history of past heel ulcer. He has been treated for enterococcal faecalis bacteremia on 2 of 2 blood cultures obtained 01/18/2021, with work-up included negative [place] at that time. Admission and Anticipated Discharge Date Admission Date: April 15, 2021 Subjective Patient seen and examined at the bedside. Reports cough with minimal sputum production. Denies chest pain. Telemetry reveals atrial fibrillation with heart rate ranging from 100-120 bpm. He is somewhat agitated. Refusing nebulizer treatments. States "I had COPD since I was in the [employer]". Offers no other concerns/complaints Review of Systems Review of Systems: All systems reviewed & are unremarkable except as noted in Subjective Physical Exam Constitutional: well nourished and + ill appearing; no acute distress Respiratory: normal respiratory effort; no labored breathing Auscultation: + rhonchi and + wheezes Cardiovascular: Rate/Rhythm: + tachycardic and + irregularly irregular Heart Sounds: normal S1 and normal S2 Vessels: radial pulses present; no JVD and no carotid bruit Gastrointestinal (Abdomen): Inspection/Auscultation: normal bowel sounds; abdomen not distended Percussion/Palpation: abdomen soft; abdomen nontender, no guarding and abdomen not rigid Neurologic: CN's II-XI intact bilaterally and moves all extremities; no focal motor deficits Motor/Sensory: no tremor Psychiatric: Affect: + anxious affect Results & Data ([facility]) Vital Signs (Past 12 Hours) Vital Signs Temp Pulse Pulse Resp BP Pulse Ox 04/17/21 08:00 36.8 C 110 H 16 126/77 97 04/17/21 06:43 92 H 04/17/21 05:41 97 H 16 113/51 L 04/17/21 04:37 36.6 C 103 H 15 111/84 04/17/21 01:23 93 H 14 98/61 L 04/17/21 00:23 36.6 C 97 H 16 109/58 L 93 04/16/21 23:23 36.7 C 96 H 16 98
[2021-04-17 11:33] LABS: Partial Thromboplastin Ratio 2.7
[2021-04-17 11:36] LABS: Partial Thromboplastin Time 70.2 Seconds (21.0-31.0)
[2021-04-17] MEDS: METOPROLOL TARTRATE 25 MG TAB PO SCH ×2 (12:23→21:21)
--- NOTE | 2021-04-17 14:47 | Hospitalist Progress Note ---
Date of Service April 17, 2021 Assessment & Plan (1) Sepsis: Plan: Sepsis secondary to worsening/new sacral decubitus ulcer that is unstageable and foul-smelling. This is most likely source of sepsis with blood cultures pending. He also has a right ureteral stone that is obstructing the ureter with persistent hydronephrosis and hydroureter. Continue broad-spectrum antibiotics with Dapto and Zosyn which was started in the ER. Lactate is elevated. -And normalized IV fluids for resuscitation cautiously in the setting of poor ejection fraction. Blood pressure seems to be a little better today at 123/69 but he still remains tachycardic The wound culture is growing Proteus Mirabella's sensitive to cephalosporins, floxacillin and sulfa Blood cultures have been negative Will de-escalate antibiotics Electrolyte imbalance Has hypomagnesemia, hypokalemia and hypophosphatemia All replaced and will monitor (2) PAF (paroxysmal atrial fibrillation): Plan: Currently in rapid ventricular response secondary to sepsis. IV fluids, broad- spectrum antibiotics. With heart rate jumping into the 150s and 160s he was started on diltiazem. Continue IV fluids and diltiazem drip with close monitoring in PCU Appreciate lube attendant input and recommendation Small dose of beta-isaías has been added and eventually Cardizem will be discontinued (3) Decubitus ulcer of sacral area: Plan: Foul-smelling, unstageable. General surgery consulted. Wound nurse consulted. Turn every 2 and keep him off this area. Status post surgical debridement of the sacral wound Continue with wound care management and possible placement of wound VAC Wound culture is growing Proteus mirabilis and the sensitivities are noted Blood culture have been negative (4) Ureteral calculus, right: Plan: Consult urology, hydrate. Would consider adding Flomax once he is more hemodynamically stable and resuscitated from a sepsis standpoint. Appreciate urology input and recommendation (5) Post-operative state: Plan: Underwent left trochanteric femoral nail of left hip fracture by Dr. Woo on 03/29/2021. He should be partial weightbearing for 6 weeks postop. PT/OT to assess prior to returning to Center care. Continue pain control efforts. (6) Diabetes mellitus, type 2: Plan: Hold home oral medications. Continue with basal bolus insulin. As patient is currently n.p.o. first dose of glargine is scheduled for this evening at 2100. (7) Ischemic cardiomyopathy: Plan: Chronic, stable. Patient is euvolemic to dry on exam and no evidence of acute coronary syndrome. Appreciate cardiology input and recommendation (8) Coronary artery disease: Plan: Chronic, stable, continue current medical management No acute cardiac symptoms (9) Chronic kidney disease stage 3: Plan: Creatinine is at baseline 1.1 (10) DVT prophylaxis: Plan: warfarin, currently subtherapeutic. Add heparin Full Code Dispo-to PCU Admission and Anticipated Discharge Date Admission Date: April 15, 2021 Subjective 04/16/2021 The patient was seen and examined in ICU He remains very weak and lethargic and has moderate shortness of breath at rest Denies any significant pain 04/17/2021 The patient was seen and examined in ICU Still has moderate shortness of breath at rest but feels a little better Pain seems to be under control and denies any fever and/or chills Review of Systems Review of Systems: All systems reviewed and are unremarkable except as noted below Respiratory: Mild to moderate shortness of breath at rest Physical Exam Physical Exam: Lying in bed with acute distress due to shortness of breath Constitutional: well developed, well nourished, + ill appearing and + obese Eyes: PERRL, conjunctivae normal, anicteric sclerae ENMT: external ear and nose normal, oropharynx normal Neck: trachea midline, no thyromegaly Respiratory: + respiratory distress and + labored breathing Auscultation: + diminished lung sounds, + crackles (Bilaterally) and + rales Cardiovascular: Rate/Rhythm: regular rate, regular rhythm and + tachycardic Heart Sounds: normal S1 and normal S2 Extremities: + edema (Trace edema bilaterally) Gastrointestinal (Abdomen): Inspection/Auscultation: abdomen not distended Percussion/Palpation: abdomen soft; abdomen nontender Musculoskeletal: No acute arthritis in any joint Skin: Sacral decubiti wound noted. Results & Data Results & Data ([facility]) Vital Signs (Past 12 Hours) Vital Signs Temp Pulse Pulse Resp BP Pulse Ox 04/17/21 12:00 37.1 C 115 H 12 123/69 98 04/17/21 08:00 36.8 C 110 H 16 126/77 97 04/17/21 06:43 92 H 04/17/21 05:41 97 H 16 113/51 L 04/17/21 04:37 36.6 C 103 H 15 111/84 Laboratory Results Short CBC 04/17/21 Range/Units 03:54 WBC 9.04 (4.8-10.8) K/uL Hgb 10.5 L (14.0-18.0) g/dL Hct 34.2 L (42-52) % Plt Count 181 (130-400) K/uL BMP 04/17/21 03:54 Sodium 140 Potassium 3.1 L D Chloride 107 Carbon Dioxide 26 BUN 18 Creatinine 0.91 Glucose 157 H Calcium 8.6 Liver Function 04/17/21 Range/Units 03:54 Total Bilirubin 0.4 (0.2-1) mg/dl AST 36 (15-37) U/L ALT 23 (12-78) U/L Alkaline Phosphatase 125 H (45-117) U/L Albumin 1.7 L (3.4-5.0) gm/dl Medications Administered Current Inpatient Medications Acetaminophen (Acetaminophen 325 Mg Tab) 650 mg PO Q4H PRN PRN Reason: Pain or Fever Stop: 05/16/21 01:00 Acetaminophen (Acetaminophen 500 Mg Tab) 1,000 mg PO Q8 ANNA Stop: 05/16/21 05:59 Last Admin: 04/17/21 05:42 Dose: 1,000 mg Documented by: Allopurinol (Allopurinol 300 Mg Tab) 300 mg PO HS ANNA Stop: 05/16/21 20:59 Last Admin: 04/16/21 20:48 Dose: 300 mg Documented by: Ascorbic Acid (Ascorbic Acid 500 Mg Tab) 1,000 mg PO BID ANNA Stop: 04/22/21 21:01 Last Admin: 04/17/21 09:17 Dose: 1,000 mg Documented by: Aspirin (Aspirin 325 Mg Ectab) 325 mg PO HS ANNA Stop: 05/16/21 20:59 Last Admin: 04/16/21 20:49 Dose: 325 mg Documented by: Dextrose (Dextrose 50% 50 Ml Syringe) 25 - 50 ml IV UD PRN; Protocol PRN Reason: Hypoglycemia Protocol Stop: 05/16/21 05:37 Glucagon (Glucagon For Inj 1 Mg Vial) 1 mg SQ UD PRN; Protocol PRN Reason: Hypoglycemia Protocol Stop: 05/16/21 05:37 Glucose (Glucose 10 Tabs/Tube) 4 - 8 tabs PO UD PRN; Protocol PRN Reason: Hypoglycemia Protocol Stop: 05/16/21 05:37 Glucose (Glucose 40% Gel 15 Gm Tube) 15 - 30 gm PO UD PRN; Protocol PRN Reason: Hypoglycemia Protocol Stop: 05/16/21 05:37 Guaifenesin (Guaifenesin 600 Mg Tabcr) 600 mg PO Q12 [facility] Stop: 04/20/21 21:01 Last Admin: 04/17/21 09:18 Dose: 600 mg Documented by: Diltiazem HCl 125 mg/ Dextrose 125 mls @ 5 mls/hr IV .Q24H ANNA; Protocol Stop: 05/16/21 00:59 Last Admin: 04/17/21 12:27 Dose: Not Given Documented by: Piperacillin Sod/Tazobactam (Sod 3.375 gm/ Dextrose) 115 mls @ 28.75 mls/hr IV Q8H ANNA; Protocol Stop: 04/23/21 01:29 Last Infusion: 04/17/21 13:33 Dose: Infused Documented by: Sodium Chloride (Nss 1000ml) 1,000 mls @ 60 mls/hr IV .[id number] ANNA Stop: 05/16/21 05:29 Last Infusion: 04/17/21 04:43 Dose: Infused Documented by: Heparin Sodium/Dextrose (Heparin Sodium/Dextrose) 25,000 units in 500 mls @ 13 mls/hr IV .Q24H ANNA; Protocol Stop: 05/16/21 05:59 Last Titration: 04/17/21 12:21 Dose: 650 units/hr, 13 mls/hr Documented by: Daptomycin 475 mg/ Syringe 9.5 mls @ 5.5 mls/min IV Q24H ANNA; Protocol Stop: 04/23/21 17:59 Last Admin: 04/16/21 17:54 Dose: 5.5 mls/min Documented by: Insulin Aspart (Insulin Aspart 100 Units/Ml 3 Ml Pen) 0 units SC ACHS [facility] Stop: 05/16/21 07:29 Last Admin: 04/17/21 12:19 Dose: Not Given Documented by: Insulin Glargine (Insulin Glargine Solostar 100 Units/Ml 3 Ml Pen) 15 units SC BID [facility] Stop: 05/16/21 20:59 Last Admin: 04/17/21 09:17 Dose: 15 units Documented by: Metoprolol Tartrate (Metoprolol Tartrate 25 Mg Tab) 12.5 mg PO BID ANNA Stop: 05/17/21 11:29 Last Admin: 04/17/21 12:23 Dose: 12.5 mg Documented by: Miscellaneous (Carbohydrates For Hypoglycemia ) 15 - 30 gm PO UD PRN PRN Reason: Hypoglycemia Protocol Stop: 05/16/21 05:37 Miscellaneous Information (Piperacill/Tazobac Consult Active) 1 ea N/A UD PRN PRN Reason: Consult Stop: 05/15/21 16:20 Miscellaneous Information (Daptomycin Consult Active) 1 ea N/A UD PRN PRN Reason: Consult Stop: 05/15/21 17:19 Montelukast Sodium (Montelukast Sodium 10 Mg Tablet) 10 mg PO HS [facility] [place] Stop: 05/16/21 20:59 Last Admin: 04/16/21 20:49 Dose: 10 mg Documented by: Morphine Sulfate (Morphine Sulfate 4 Mg/Ml 1 Ml Carp\Vial) 4 mg IV Q4H PRN PRN Reason: severe breakthrough pain Stop: 04/30/21 05:36 Last Admin: 04/17/21 04:43 Dose: 4 mg Documented by: Multivitamins (Multivitamin Tab) 1 tab PO QAM [facility] Stop: 05/16/21 08:59 Last Admin: 04/17/21 09:18 Dose: 1 tab Documented by: Ondansetron HCl (Ondansetron Inj 2 Mg/Ml 2 Ml Vial) 4 mg IV Q6H PRN PRN Reason: Nausea Stop: 05/16/21 01:00 Polyethylene Glycol (Polyethylene (Miralax) 17 Gm Pack) 17 gm PO DAILY PRN PRN Reason: Constipation Stop: 05/16/21 01:00 Potassium Chloride (Potassium Chloride Crtab 20 Meq Tabcr) 20 meq PO DAILY ANNA Stop: 05/16/21 08:59 Last Admin: 04/17/21 09:17 Dose: 20 meq Documented by: Primidone (Primidone 250 Mg Tab) 500 mg PO HS ANNA Stop: 05/16/21 20:59 Last Admin: 04/16/21 20:48 Dose: 500 mg Documented by: Senna/Docusate Sodium (Docusate Sodium/Senna 50/8.6mg Tab) 1 tab PO BID [facility] [place] Stop: 05/16/21 08:59 Last Admin: 04/17/21 09:20 Dose: 1 tab Documented by: Tramadol HCl (Tramadol Hcl 50 Mg Tablet) 50 mg PO Q8 [facility] [place] Stop: 05/16/21 05:59 Last Admin: 04/17/21 05:42 Dose: 50 mg Documented by: Warfarin Sodium (Warfarin Sod 5 Mg Tab) 5 mg PO DAILY@1600 [facility] [place] Stop: 05/16/21 15:59 Last Admin: 04/16/21 16:13 Dose: Not Given Documented by: (1) Decubitus ulcer of sacral area Pressure injury stage: unstageable Qualified Code(s): L89.150 - Pressure ulcer of sacral region, unstageable
[2021-04-17] MEDS: WARFARIN SOD 5 MG TAB PO SCH (16:18)
[2021-04-17] MEDS: DAPTOmycin 475 MG in SYRINGE 0 ML IV SCH (17:06)
[2021-04-17 17:34] LABS: Partial Thromboplastin Ratio 2.8
[2021-04-17 17:40] LABS: Partial Thromboplastin Time 72.8 Seconds (21.0-31.0)
[2021-04-17] MEDS: MONTELUKAST SODIUM 10 MG TABLET PO SCH (21:20)
[2021-04-17] MEDS: allopurinoL 300 MG TAB PO SCH (21:20)
[2021-04-17] MEDS: PRIMIDONE 250 MG TAB PO SCH (21:20)
[2021-04-17] MEDS: ASPIRIN 325 MG ECTAB PO SCH (21:21)
[2021-04-17] MEDS ORDERED: ACETAMINOPHEN 325 MG TAB PO PRN (23:17)
[2021-04-17 23:56] LABS: Partial Thromboplastin Ratio 2.5
[2021-04-18] MEDS: MoRPHine SULFATE 4 MG/ML 1 ML CARP\\VIAL IV PRN ×2 (00:36→23:12)
[2021-04-18] MEDS: HEPARIN SODIUM/DEXTROSE 25,000 UNITS/500 ML BAG IV SCH (01:02)
[2021-04-18] MEDS: PIPERACILLIN/TAZOBACTAM 3.375 GM in DEXTROSE 5% 100 ML IV SCH ×2 (01:25→09:02)
[2021-04-18 05:29] LABS: Basophils # (auto) 0.02 K/uL (0-0.2); Basophils % (auto) 0.2 %; Eosinophils # (auto) 0.35 K/uL (0-0.5); Eosinophils % (auto) 4.1 %; Hematocrit (blood only) 31.7 % (42-52); Hemoglobin 10.1 g/dL (14.0-18.0); Immature Granulocytes # (auto) 0.02 K/uL (0.00-0.02); Immature Granulocytes % (auto) 0.2 %; Lymphocytes # (auto) 0.83 K/uL (1.2-3.4); Lymphocytes % (auto) 9.7 %; Mean Corpuscular Hemoglobin 30.4 pg (25-34); Mean Corpuscular Hgb Conc 31.9 g/dL (32-36); Mean Corpuscular Volume 95.5 fL (80-100); Mean Platelet Volume 9.1 fL (7.4-10.4); Monocytes # (auto) 0.66 K/uL (0.11-0.59); Monocytes % (auto) 7.7 %; Neutrophils # (auto) 6.67 K/uL (1.4-6.5); Neutrophils % (auto) 78.1 %; Platelet Count 135 K/uL (130-400); RDW Coefficient of Variation 16.6 % (11.5-14.5); RDW Standard Deviation 58.5 fL (36.4-46.3); Red Blood Count 3.32 M/uL (4.7-6.1); White Blood Count 8.55 K/uL (4.8-10.8)
[2021-04-18 05:37] LABS: INR 2.1 (0.9-1.1); Prothrombin Time 20.5 Seconds (9.0-12.0)
[2021-04-18 05:59] LABS: BUN Creatinine Ratio 14.5 (10-20); Calcium 8.3 mg/dl (8.5-10.1); Creatinine Clr Calc Pharmacy 94.1 ml/min; Est GFR (African American) 103.2 ml/min; Est GFR (Non-African American) 89.1 ml/min; Magnesium 1.7 mg/dl (1.8-2.4); Phosphorus 2.8 mg/dl (2.5-4.9)
[2021-04-18] MEDS: ACETAMINOPHEN 325 MG TAB PO SCH ×3 (06:10→22:53)
[2021-04-18] MEDS: traMADol HCL 50 MG TABLET PO SCH ×3 (06:10→22:53)
[2021-04-18 07:41] LABS: Partial Thromboplastin Ratio 2.3
[2021-04-18 07:51] LABS: Partial Thromboplastin Time 59.5 Seconds (21.0-31.0)
[2021-04-18] MEDS ORDERED: POTASSIUM CHLORIDE CRTAB 20 MEQ TABCR PO STA (07:51)
[2021-04-18] MEDS: INSULIN ASPART 100 UNITS/ML 3 ML PEN SC SCH ×4 (08:55→21:10)
[2021-04-18] MEDS: ASCORBIC ACID 500 MG TAB PO SCH ×2 (08:57→20:13)
[2021-04-18] MEDS: POTASSIUM CHLORIDE / WTR 10 MEQ/100 ML PLCT IV SCH ×2 (08:57→10:16)
[2021-04-18] MEDS: INSULIN GLARGINE SOLOSTAR 100 UNITS/ML 3 ML PEN SC SCH ×2 (08:59→21:12)
[2021-04-18] MEDS: DOCUSATE SODIUM/SENNA 50/8.6MG TAB PO SCH ×2 (08:59→20:22)
[2021-04-18] MEDS: guaiFENesin 600 MG TABCR PO SCH ×2 (08:59→20:14)
[2021-04-18] MEDS: METOPROLOL TARTRATE 25 MG TAB PO SCH ×2 (09:00→20:19)
[2021-04-18] MEDS: MULTIVITAMIN TAB PO SCH (09:01)
[2021-04-18] MEDS: POTASSIUM CHLORIDE CRTAB 20 MEQ TABCR PO SCH (09:02)
--- NOTE | 2021-04-18 09:47 | Urology Progress Note ---
Date of Service April 18, 2021 Assessment & Plan (1) Ureteral calculus, right: Plan: Right ureteral calculus in the setting of sepsis from a sacral decubitus ulcer as well as numerous other comorbidities Overall life is still favor continued observation given the lack of symptoms of the stone He has stable creatinine level Making adequate urine Recovering appropriately from the infection Plan for interval treatment of the stone after resolution of his acute problems Admission and Anticipated Discharge Date Admission Date: April 15, 2021 Subjective Seems better today than he was yesterday Seems to be much more with it, having an appropriate conversation with me Denies any abdominal pain Physical Exam Physical Exam: No tenderness on the right flank or left flank No suprapubic tenderness Urine clear Results & Data ([facility]) Vital Signs (Past 12 Hours) Vital Signs Temp Pulse Pulse Pulse Resp BP Pulse Ox 04/18/21 08:00 36.9 C 107 H 22 113/56 L 93 04/18/21 04:00 37 C 101 H 101 H 16 107/72 96 04/18/21 00:00 37.2 C 128 H 33 H 126/63 100 04/17/21 23:59 105 H PG Care Time/CCT Total # of Minutes Spent Total Time Spent with Patient: Total time spent is greater than 50% in coordination of care (as documented) at patient's floor/unit and/or counseling patient: Coding Level of Care Code 27197 Subseq Hosp Care Lvl 2 Diagnoses Ureteral calculus, right N20.1
--- NOTE | 2021-04-18 11:23 | Cardiology Progress Note ---
Date of Service April 18, 2021 Assessment & Plan (1) Atrial fibrillation with rapid ventricular response: (2) Sepsis: Plan: 75-year-old male with sepsis secondary to sacral decubitus ulcer status post debridement, chronic stable exertional angina, deemed to have inoperable coronary heart disease in the remote past, chronic systolic heart failure, LVEF in the range of 35 to 40%. History of paroxysmal atrial fibrillation with tachybradycardia syndrome and pacemaker placement. Wound culture growing Proteus mirabilis. Blood culture negative to date. Heart rate remains borderline elevated. Titrate diltiazem infusion to 10 mg/h. Continue low-dose metoprolol tartrate. INR is therapeutic today. Discontinue IV heparin infusion. Repeat INR in a.m. Has a history of past heel ulcer. He has been treated for enterococcal faecalis bacteremia on 2 of 2 blood cultures obtained 01/18/2021, with work-up included negative [place] at that time. Admission and Anticipated Discharge Date Admission Date: April 15, 2021 Subjective Patient seen and examined the bedside. Continues to cough with minimal sputum production. + Wheeze. No orthopnea or PND. Denies palpitations, lightheadedness, or dizziness. Denies chest discomfort. Telemetry reveals atrial fibrillation with heart rate ranging from 100-115 bpm. Blood pressures remain borderline hypotensive. Review of Systems Review of Systems: All systems reviewed & are unremarkable except as noted in Subjective Physical Exam Constitutional: well nourished and + ill appearing; no acute distress Respiratory: normal respiratory effort; no labored breathing Auscultation: + rhonchi and + wheezes Cardiovascular: Rate/Rhythm: + tachycardic and + irregularly irregular Heart Sounds: normal S1 and normal S2 Vessels: radial pulses present; no JVD and no carotid bruit Gastrointestinal (Abdomen): Inspection/Auscultation: normal bowel sounds; abdomen not distended Percussion/Palpation: abdomen soft; abdomen nontender, no guarding and abdomen not rigid Neurologic: CN's II-XI intact bilaterally and moves all extremities; no focal motor deficits Motor/Sensory: no tremor Psychiatric: Affect: + anxious affect Results & Data ([facility]) Vital Signs (Past 12 Hours) Vital Signs Temp Pulse Pulse Pulse Resp BP Pulse Ox 04/18/21 08:00 36.9 C 107 H 22 113/56 L 93 04/18/21 04:00 37 C 101 H 101 H 16 107/72 96 04/18/21 00:00 37.2 C 128 H 33 H 126/63 100 04/17/21 23:59 105 H
[2021-04-18] MEDS: dilTIAZem HCL 125 MG in DEXTROSE 5% 100 ML IV SCH ×2 (12:51→13:13)
--- NOTE | 2021-04-18 14:07 | Hospitalist Progress Note ---
Date of Service April 18, 2021 Assessment & Plan (1) Sepsis: Plan: Sepsis secondary to worsening/new sacral decubitus ulcer that is unstageable and foul-smelling. This is most likely source of sepsis with blood cultures pending. He also has a right ureteral stone that is obstructing the ureter with persistent hydronephrosis and hydroureter. Continue broad-spectrum antibiotics with Dapto and Zosyn which was started in the ER. Lactate is elevated. -And normalized IV fluids for resuscitation cautiously in the setting of poor ejection fraction. Blood pressure seems to be a little better today at 123/69 but he still remains tachycardic The wound culture is growing Proteus Mirabella's sensitive to cephalosporins, floxacillin and sulfa Blood cultures have been negative Antibiotics have been changed to intravenous ceftriaxone and intravenous doxycycline to cover possible MRSA Bronchiectasis CT scan did show bilateral basal bronchiectasis without any change compared with prior Doubt any pneumonia secondary to bronchiectasis MRSA screen was positive but blood cultures have been negative We will cover with intravenous doxycycline for now Electrolyte imbalance Has hypomagnesemia, hypokalemia and hypophosphatemia All replaced and will monitor (2) PAF (paroxysmal atrial fibrillation): Plan: Currently in rapid ventricular response secondary to sepsis. IV fluids, broad- spectrum antibiotics. With heart rate jumping into the 150s and 160s he was started on diltiazem. Continue IV fluids and diltiazem drip with close monitoring in PCU Appreciate referral clerk input and recommendation Small dose of beta-isaías has been added and eventually Cardizem will be discontinued Rate seems to be under control (3) Decubitus ulcer of sacral area: Plan: Foul-smelling, unstageable. General surgery consulted. Wound nurse consulted. Turn every 2 and keep him off this area. Status post surgical debridement of the sacral wound Continue with wound care management and possible placement of wound VAC Wound culture is growing Proteus mirabilis and the sensitivities are noted Blood culture have been negative Antibiotic has been changed to intravenous ceftriaxone as per sensitivity (4) Ureteral calculus, right: Plan: Consult urology, hydrate. Would consider adding Flomax once he is more hemodynamically stable and resuscitated from a sepsis standpoint. Appreciate urology input and recommendation Has asymptomatic candiduria urea-no antifungal is required now Will need oral Diflucan if he goes for any urological procedure for a few days prior and after the procedure (5) Post-operative state: Plan: Underwent left trochanteric femoral nail of left hip fracture by Dr. Woo on 03/29/2021. He should be partial weightbearing for 6 weeks postop. PT/OT to assess prior to returning to Center care. Continue pain control efforts. (6) Diabetes mellitus, type 2: Plan: Hold home oral medications. Continue with basal bolus insulin. As patient is currently n.p.o. first dose of glargine is scheduled for this evening at 2100. (7) Ischemic cardiomyopathy: Plan: Chronic, stable. Patient is euvolemic to dry on exam and no evidence of acute coronary syndrome. Appreciate cardiology input and recommendation (8) Coronary artery disease: Plan: Chronic, stable, continue current medical management No acute cardiac symptoms (9) Chronic kidney disease stage 3: Plan: Creatinine is at baseline 1.1 (10) DVT prophylaxis: Plan: warfarin, currently subtherapeutic. Add heparin Heparin has been discontinued and continue with warfarin INR is 2.1 04/18/2021 Full Code Admission and Anticipated Discharge Date Admission Date: April 15, 2021 Subjective 04/16/2021 The patient was seen and examined in ICU He remains very weak and lethargic and has moderate shortness of breath at rest Denies any significant pain 04/17/2021 The patient was seen and examined in ICU Still has moderate shortness of breath at rest but feels a little better Pain seems to be under control and denies any fever and/or chills 04/18/2021 The patient was seen and examined in ICU He has been stable with decreasing shortness of breath at rest No fever and no chills Review of Systems Review of Systems: All systems reviewed and are unremarkable except as noted below Respiratory: Mild to moderate shortness of breath at rest Physical Exam Physical Exam: Lying in bed with acute distress due to shortness of breath Constitutional: well developed, well nourished, + ill appearing and + obese Eyes: PERRL, conjunctivae normal, anicteric sclerae ENMT: external ear and nose normal, oropharynx normal Neck: trachea midline, no thyromegaly Respiratory: + respiratory distress and + labored breathing Auscultation: + diminished lung sounds, + crackles (Bilaterally) and + rales Cardiovascular: Rate/Rhythm: regular rate, regular rhythm and + tachycardic Heart Sounds: normal S1 and normal S2 Extremities: + edema (Trace edema bilaterally) Gastrointestinal (Abdomen): Inspection/Auscultation: abdomen not distended Percussion/Palpation: abdomen soft; abdomen nontender Musculoskeletal: No acute arthritis in any joint Neurologic: Alert and awake. Very lethargic. Moves all the limbs Results & Data Results & Data ([facility]) Vital Signs (Past 12 Hours) Vital Signs Temp Pulse Pulse Pulse Resp BP BP 04/18/21 13:15 04/18/21 12:23 85 14 95/59 L 04/18/21 11:23 88 14 103/44 L 04/18/21 10:25 115 H 04/18/21 09:05 108 H 10 L 111/68 04/18/21 08:00 36.9 C 107 H 22 113/56 L 04/18/21 04:00 37 C 101 H 101 H 16 107/72 Pulse Ox Pulse Ox Pulse Ox 04/18/21 13:15 96 86 L 04/18/21 12:23 96 04/18/21 11:23 90 04/18/21 10:25 04/18/21 09:05 98 04/18/21 08:00 93 04/18/21 04:00 96 Laboratory Results Short CBC 04/18/21 Range/Units 05:18 WBC 8.55 (4.8-10.8) K/uL Hgb 10.1 L (14.0-18.0) g/dL Hct 31.7 L (42-52) % Plt Count 135 (130-400) K/uL BMP 04/18/21 05:18 Sodium 139 Potassium 3.0 L Chloride 104 Carbon Dioxide 30 BUN 11 Creatinine 0.79 Glucose 89 Calcium 8.3 L Medications Administered Current Inpatient Medications Acetaminophen (Acetaminophen 325 Mg Tab) 325 mg PO Q6H PRN PRN Reason: Pain or Fever Stop: 05/17/21 23:16 Acetaminophen (Acetaminophen 325 Mg Tab) 650 mg PO Q8 ANNA Stop: 05/18/21 05:59 Last Admin: 04/18/21 14:25 Dose: 650 mg Documented by: Allopurinol (Allopurinol 300 Mg Tab) 300 mg PO HS ANNA Stop: 05/16/21 20:59 Last Admin: 04/17/21 21:20 Dose: 300 mg Documented by: Ascorbic Acid (Ascorbic Acid 500 Mg Tab) 1,000 mg PO BID [facility] Stop: 04/22/21 21:01 Last Admin: 04/18/21 08:57 Dose: 1,000 mg Documented by: Aspirin (Aspirin 325 Mg Ectab) 325 mg PO HS [facility] Stop: 05/16/21 20:59 Last Admin: 04/17/21 21:21 Dose: 325 mg Documented by: Dextrose (Dextrose 50% 50 Ml Syringe) 25 - 50 ml IV UD PRN; Protocol PRN Reason: Hypoglycemia Protocol Stop: 05/16/21 05:37 Glucagon (Glucagon For Inj 1 Mg Vial) 1 mg SQ UD PRN; Protocol PRN Reason: Hypoglycemia Protocol Stop: 05/16/21 05:37 Glucose (Glucose 10 Tabs/Tube) 4 - 8 tabs PO UD PRN; Protocol PRN Reason: Hypoglycemia Protocol Stop: 05/16/21 05:37 Glucose (Glucose 40% Gel 15 Gm Tube) 15 - 30 gm PO UD PRN; Protocol PRN Reason: Hypoglycemia Protocol Stop: 05/16/21 05:37 Guaifenesin (Guaifenesin 600 Mg Tabcr) 600 mg PO Q12 [facility] Stop: 04/20/21 21:01 Last Admin: 04/18/21 08:59 Dose: 600 mg Documented by: Diltiazem HCl 125 mg/ Dextrose 125 mls @ 10 mls/hr IV .[id number] [facility]; Protocol Stop: 05/16/21 00:59 Last Admin: 04/18/21 13:13 Dose: Not Given Documented by: Sodium Chloride (Nss 1000ml) 1,000 mls @ 60 mls/hr IV .[id number] [facility] Stop: 05/16/21 05:29 Last Infusion: 04/17/21 04:43 Dose: Infused Documented by: Ceftriaxone Sodium 2,000 mg/ (Dextrose) 70 mls @ 140 mls/hr IV Q24H [facility]; Protocol Stop: 04/22/21 17:59 Doxycycline Hyclate 100 mg/ (Dextrose) 110 mls @ 55 mls/hr IV BID [facility]; Protocol Stop: 04/22/21 20:59 Insulin Aspart (Insulin Aspart 100 Units/Ml 3 Ml Pen) 0 units SC ACHS [facility] Stop: 05/16/21 07:29 Last Admin: 04/18/21 13:13 Dose: Not Given Documented by: Insulin Glargine (Insulin Glargine Solostar 100 Units/Ml 3 Ml Pen) 15 units SC BID [facility] Stop: 05/16/21 20:59 Last Admin: 04/18/21 08:59 Dose: 15 units Documented by: Metoprolol Tartrate (Metoprolol Tartrate 25 Mg Tab) 12.5 mg PO BID [facility] Stop: 05/17/21 11:29 Last Admin: 04/18/21 09:00 Dose: 12.5 mg Documented by: Miscellaneous (Carbohydrates For Hypoglycemia ) 15 - 30 gm PO UD PRN PRN Reason: Hypoglycemia Protocol Stop: 05/16/21 05:37 Montelukast Sodium (Montelukast Sodium 10 Mg Tablet) 10 mg PO HS [facility] Stop: 05/16/21 20:59 Last Admin: 04/17/21 21:20 Dose: 10 mg Documented by: Morphine Sulfate (Morphine Sulfate 4 Mg/Ml 1 Ml Carp\Vial) 4 mg IV Q4H PRN PRN Reason: severe breakthrough pain Stop: 04/30/21 05:36 Last Admin: 04/18/21 00:36 Dose: 4 mg Documented by: Multivitamins (Multivitamin Tab) 1 tab PO QAM [facility] Stop: 05/16/21 08:59 Last Admin: 04/18/21 09:01 Dose: 1 tab Documented by: Ondansetron HCl (Ondansetron Inj 2 Mg/Ml 2 Ml Vial) 4 mg IV Q6H PRN PRN Reason: Nausea Stop: 05/16/21 01:00 Polyethylene Glycol (Polyethylene (Miralax) 17 Gm Pack) 17 gm PO DAILY PRN PRN Reason: Constipation Stop: 05/16/21 01:00 Potassium Chloride (Potassium Chloride Crtab 20 Meq Tabcr) 20 meq PO DAILY [facility] Stop: 05/16/21 08:59 Last Admin: 04/18/21 09:02 Dose: 20 meq Documented by: Primidone (Primidone 250 Mg Tab) 500 mg PO HS [facility] Stop: 05/16/21 20:59 Last Admin: 04/17/21 21:20 Dose: 500 mg Documented by: Senna/Docusate Sodium (Docusate Sodium/Senna 50/8.6mg Tab) 1 tab PO BID [facility] Stop: 05/16/21 08:59 Last Admin: 04/18/21 08:59 Dose: 1 tab Documented by: Tramadol HCl (Tramadol Hcl 50 Mg Tablet) 50 mg PO Q8 [facility] Stop: 05/16/21 05:59 Last Admin: 04/18/21 14:25 Dose: 50 mg Documented by: Warfarin Sodium (Warfarin Sod 5 Mg Tab) 5 mg PO DAILY@1600 [facility] Stop: 05/16/21 15:59 Last Admin: 04/17/21 16:18 Dose: 5 mg Documented by: (1) Decubitus ulcer of sacral area Pressure injury stage: unstageable Qualified Code(s): L89.150 - Pressure ulcer of sacral region, unstageable
[2021-04-18] MEDS: WARFARIN SOD 5 MG TAB PO SCH ×3 (17:02→20:14)
[2021-04-18] MEDS: cefTRIAXone SODIUM 2,000 MG in DEXTROSE 5% 50 ML IV SCH (17:44)
--- NOTE | 2021-04-18 19:59 | Electrocardiogram Report ---
Test Reason : Blood Pressure : / mmHG Vent. Rate : 112 BPM Atrial Rate : 112 BPM P-R Int : 000 ms QRS Dur : 120 ms QT Int : 290 ms P-R-T Axes : 000 034 -52 degrees QTc Int : 395 ms Atrial fibrillation with rapid ventricular response Inferior infarct , age undetermined Abnormal ECG When compared with ECG of 16-APR-2021 16:43, (unconfirmed) Criteria for Septal infarct are no longer Present No significant change was found Confirmed by Bradford Rodriguez ([id number]) on 04/18/2021 7:59:28 PM Referred By: REFERRED SELF Confirmed By:Bradford Rodriguez
[2021-04-18] MEDS: ASPIRIN 325 MG ECTAB PO SCH (20:14)
[2021-04-18] MEDS: PRIMIDONE 250 MG TAB PO SCH (20:14)
[2021-04-18] MEDS: allopurinoL 300 MG TAB PO SCH (20:19)
[2021-04-18] MEDS: MONTELUKAST SODIUM 10 MG TABLET PO SCH (20:20)
[2021-04-18] MEDS: DOXYCYCLINE HYCLATE 100 MG in DEXTROSE 5% 100 ML IV SCH (20:21)
[2021-04-18] MEDS ORDERED: DOXYCYCLINE HYCLATE 100 MG CAP PO SCH (21:00)
[2021-04-19] MEDS: dilTIAZem HCL 125 MG in DEXTROSE 5% 100 ML IV SCH ×2 (03:26→14:47)
[2021-04-19 05:42] LABS: Basophils # (auto) 0.01 K/uL (0-0.2); Basophils % (auto) 0.1 %; Eosinophils # (auto) 0.26 K/uL (0-0.5); Eosinophils % (auto) 3.7 %; Hematocrit (blood only) 31.2 % (42-52); Hemoglobin 9.8 g/dL (14.0-18.0); Immature Granulocytes # (auto) 0.02 K/uL (0.00-0.02); Immature Granulocytes % (auto) 0.3 %; Lymphocytes # (auto) 0.78 K/uL (1.2-3.4); Lymphocytes % (auto) 11.1 %; Mean Corpuscular Hemoglobin 30.3 pg (25-34); Mean Corpuscular Hgb Conc 31.4 g/dL (32-36); Mean Corpuscular Volume 96.6 fL (80-100); Mean Platelet Volume 10.6 fL (7.4-10.4); Monocytes # (auto) 0.69 K/uL (0.11-0.59); Monocytes % (auto) 9.8 %; Neutrophils # (auto) 5.29 K/uL (1.4-6.5); Platelet Count 128 K/uL (130-400); RDW Coefficient of Variation 16.9 % (11.5-14.5); RDW Standard Deviation 59.9 fL (36.4-46.3); Red Blood Count 3.23 M/uL (4.7-6.1); White Blood Count 7.05 K/uL (4.8-10.8)
[2021-04-19 05:46] LABS: INR 2.8 (0.9-1.1); Prothrombin Time 26.3 Seconds (9.0-12.0)
[2021-04-19] MEDS: ACETAMINOPHEN 325 MG TAB PO SCH ×3 (05:54→20:41)
[2021-04-19] MEDS: traMADol HCL 50 MG TABLET PO SCH ×3 (05:55→20:46)
[2021-04-19 06:03] LABS: BUN Creatinine Ratio 15.3 (10-20); Creatinine Clr Calc Pharmacy 104.7 ml/min; Est GFR (African American) 107.9 ml/min; Est GFR (Non-African American) 93.1 ml/min; Magnesium 1.7 mg/dl (1.8-2.4); Phosphorus 2.3 mg/dl (2.5-4.9); Potassium 3.1 mmol/L (3.5-5.1)
[2021-04-19] MEDS ORDERED: POTASSIUM CHLORIDE CRTAB 20 MEQ TABCR PO STA (09:13)
[2021-04-19] MEDS ORDERED: POTASSIUM PHOS 3 MMOL/1 ML INFUSION IV STA (09:13)
--- NOTE | 2021-04-19 09:13 | Urology Progress Note ---
Date of Service April 19, 2021 Assessment & Plan (1) Ureteral calculus, right: Plan: Right ureteral calculus in the setting of sepsis from a sacral decubitus ulcer as well as numerous other comorbidities. - Plan of care reviewed with Dr. Partida, urologist sales correspondent - Pt afebrile, lab work reviewed - creatinine 0.71, WBC 7.05, Hgb 9.8 - No flank or abdominal pain - Creatinine stable, making adequate urine - No acute intervention warranted at this time - He remains on IV Ceftriaxone and Doxycycline for sacral infection - Of note, urine culture 04/15 showed Mariela glabrata - recommend treatment with antifungals in context of stone/stone treatment - Overall favor continued observation given the lack of symptoms of the stone - Recovering appropriately from the sacral infection - Plan for treatment of the stone after resolution of his acute problems - Will arrange outpatient follow-up with our service to discuss definitive stone management - Will follow peripherally. Please consult our service urgently if patient develops fever >101F, intractable pain or nausea, as this will necessitate urgent surgical intervention. Admission and Anticipated Discharge Date Admission Date: April 15, 2021 Supervising Physician Co-Signing Physician Notes Discussed patient with RAHEEL. Agree with plan. Patient stable from ureteral calculus standpoint. Recommend antifungal for urine culture growing mariela. If patient decompensates, notify urology as likely would require stent placement at that time. Will manage conservatively for time being. Subjective Pt seen and examined at bedside this AM. He was sleeping, arouses easily to his name. No flank or abdominal pain. Cisneros in place. No nausea or vomiting. No fever or chills. Chart review: Afebrile overnight, creatinine 0.71, WBC 7.05, Hgb 9.8. Remains on Ceftriaxone and Doxycycline. Review of Systems Constitutional: as per Subjective / HPI Gastrointestinal: as per Subjective / HPI Genitourinary: + as per Subjective / HPI Physical Exam Constitutional: no acute distress Respiratory: no respiratory distress Gastrointestinal (Abdomen): Inspection/Auscultation: abdomen normal to i nspection; abdomen not distended Percussion/Palpation: abdomen soft; abdomen nontender Genitourinary: no CVA tenderness Cisneros intact and patent Results & Data ([facility]) Vital Signs (Past 12 Hours) Vital Signs Temp Pulse Resp BP Pulse Ox 04/19/21 04:23 90 8 L 100/61 99 04/19/21 04:00 36.5 C 04/19/21 03:23 90 0 L 111/54 L 98 04/19/21 02:23 93 H 0 L 91/45 L 91 04/19/21 01:23 103 H 14 103/83 96 04/19/21 00:23 96 H 12 104/54 L 98 04/19/21 00:00 36.5 C 04/18/21 23:59 80 04/18/21 23:24 94 H 18 96/63 L 100 04/18/21 22:23 88 16 94/46 L 95 04/18/21 21:23 105 H 20 103/78 96 PG Care Time/CCT Total # of Minutes Spent Total Time Spent with Patient: Total time spent is greater than 50% in coordination of care (as documented) at patient's floor/unit and/or counseling patient: Coding Level of Care Code 71519 Subseq Hosp Care Lvl 2 Diagnoses Ureteral calculus, right N20.1
[2021-04-19] MEDS: DOXYCYCLINE HYCLATE 100 MG in DEXTROSE 5% 100 ML IV SCH ×2 (09:14→20:41)
[2021-04-19] MEDS: ASCORBIC ACID 500 MG TAB PO SCH ×2 (09:15→20:49)
[2021-04-19] MEDS: INSULIN GLARGINE SOLOSTAR 100 UNITS/ML 3 ML PEN SC SCH (09:15)
[2021-04-19] MEDS: guaiFENesin 600 MG TABCR PO SCH ×2 (09:15→20:48)
[2021-04-19] MEDS: POTASSIUM CHLORIDE CRTAB 20 MEQ TABCR PO SCH (09:15)
[2021-04-19] MEDS ORDERED: POTASSIUM PHOSPHATE 24 MMOL in SODIUM CHLORIDE 0.9% 500 ML IV ONE (09:15)
[2021-04-19] MEDS: METOPROLOL TARTRATE 25 MG TAB PO SCH ×2 (09:15→20:42)
[2021-04-19] MEDS: DOCUSATE SODIUM/SENNA 50/8.6MG TAB PO SCH ×2 (09:15→20:52)
[2021-04-19] MEDS: INSULIN ASPART 100 UNITS/ML 3 ML PEN SC SCH ×4 (09:16→20:33)
[2021-04-19] MEDS: MULTIVITAMIN TAB PO SCH (09:17)
[2021-04-19] MEDS: MAGNESIUM SULFATE / D5W 1 GM/100 ML BAG IV SCH ×2 (10:48→12:48)
--- NOTE | 2021-04-19 13:07 | Hospitalist Progress Note ---
Date of Service April 19, 2021 Assessment & Plan (1) Sepsis: Plan: Sepsis secondary to worsening/new sacral decubitus ulcer that is unstageable and foul-smelling. This is most likely source of sepsis with blood cultures pending. He also has a right ureteral stone that is obstructing the ureter with persistent hydronephrosis and hydroureter. Continue broad-spectrum antibiotics with Dapto and Zosyn which was started in the ER. Lactate is elevated. -And normalized IV fluids for resuscitation cautiously in the setting of poor ejection fraction. Blood pressure seems to be a little better today at 123/69 but he still remains tachycardic The wound culture is growing Proteus Mirabella's sensitive to cephalosporins, floxacillin and sulfa Blood cultures have been negative Antibiotics have been changed to intravenous ceftriaxone and intravenous doxycycline to cover possible MRSA Clinically better without any fever no chills and her white count remains normal Bronchiectasis CT scan did show bilateral basal bronchiectasis without any change compared with prior Doubt any pneumonia secondary to bronchiectasis MRSA screen was positive but blood cultures have been negative We will cover with intravenous doxycycline for now His breathing is a little bit better today Electrolyte imbalance Has hypomagnesemia, hypokalemia and hypophosphatemia Electrolytes remains low and will be supplemented (2) PAF (paroxysmal atrial fibrillation): Plan: Currently in rapid ventricular response secondary to sepsis. IV fluids, broad- spectrum antibiotics. With heart rate jumping into the 150s and 160s he was started on diltiazem. Continue IV fluids and diltiazem drip with close monitoring in PCU Appreciate tipple operator input and recommendation Small dose of beta-isaías has been added and eventually Cardizem will be discontinued Rate remains elevated Remains on Cardizem drip and beta-isaías has been increased (3) Decubitus ulcer of sacral area: Plan: Foul-smelling, unstageable. General surgery consulted. Wound nurse consulted. Turn every 2 and keep him off this area. Status post surgical debridement of the sacral wound Continue with wound care management and possible placement of wound VAC Wound culture is growing Proteus mirabilis and the sensitivities are noted Blood culture have been negative Antibiotic has been changed to intravenous ceftriaxone as per sensitivity Continue with the wound care management (4) Ureteral calculus, right: Plan: Consult urology, hydrate. Would consider adding Flomax once he is more hemodynamically stable and resuscitated from a sepsis standpoint. Appreciate urology input and recommendation Has asymptomatic candiduria urea-no antifungal is required now Will need oral Diflucan if he goes for any urological procedure for a few days prior and after the procedure (5) Post-operative state: Plan: Underwent left trochanteric femoral nail of left hip fracture by Dr. Woo on 03/29/2021. He should be partial weightbearing for 6 weeks postop. PT/OT to assess prior to returning to Center care. Continue pain control efforts. (6) Diabetes mellitus, type 2: Plan: Hold home oral medications. Continue with basal bolus insulin. As patient is currently n.p.o. first dose of glargine is scheduled for this evening at 2100. (7) Ischemic cardiomyopathy: Plan: Chronic, stable. Patient is euvolemic to dry on exam and no evidence of acute coronary syndrome. Appreciate cardiology input and recommendation (8) Coronary artery disease: Plan: Chronic, stable, continue current medical management No acute cardiac symptoms (9) Chronic kidney disease stage 3: Plan: Creatinine is at baseline 1.1 (10) DVT prophylaxis: Plan: warfarin, currently subtherapeutic. Add heparin Heparin has been discontinued and continue with warfarin INR is 2.1 04/18/2021 Full Code Admission and Anticipated Discharge Date Admission Date: April 15, 2021 Subjective 04/16/2021 The patient was seen and examined in ICU He remains very weak and lethargic and has moderate shortness of breath at rest Denies any significant pain 04/17/2021 The patient was seen and examined in ICU Still has moderate shortness of breath at rest but feels a little better Pain seems to be under control and denies any fever and/or chills 04/18/2021 The patient was seen and examined in ICU He has been stable with decreasing shortness of breath at rest No fever and no chills 04/19/2021 The patient was seen and examined in ICU He has been feeling much better today and denies any significant symptoms Minimally shortness of breath at rest and denies any fever and no chills Review of Systems Review of Systems: All systems reviewed and are unremarkable except as noted below Respiratory: Mild to moderate shortness of breath at rest Physical Exam Physical Exam: Lying in bed with acute distress due to shortness of breath Constitutional: well developed, well nourished, + ill appearing and + obese Eyes: PERRL, conjunctivae normal, anicteric sclerae ENMT: external ear and nose normal, oropharynx normal Neck: trachea midline, no thyromegaly Respiratory: + respiratory distress and + labored breathing Auscultation: + diminished lung sounds, + crackles (Bilaterally) and + rales Cardiovascular: Rate/Rhythm: regular rate, regular rhythm and + tachycardic Heart Sounds: normal S1 and normal S2 Extremities: + edema (Trace edema bilaterally) Gastrointestinal (Abdomen): Inspection/Auscultation: abdomen not distended Percussion/Palpation: abdomen soft; abdomen nontender Musculoskeletal: No acute arthritis in any joint Neurologic: Alert, awake and oriented x3. Generally very weak and lethargic Results & Data Results & Data ([facility]) Vital Signs (Past 12 Hours) Vital Signs Temp Pulse Resp BP Pulse Ox 04/19/21 11:53 103 H 04/19/21 11:21 90 13 105/65 92 04/19/21 10:22 103 H 19 95/65 L 97 04/19/21 09:21 100 H 17 100/64 97 04/19/21 08:23 95 H 14 103/62 94 04/19/21 07:23 88 0 L 88/60 L 91 04/19/21 04:23 90 8 L 100/61 99 04/19/21 04:00 36.5 C 04/19/21 03:23 90 0 L 111/54 L 98 04/19/21 02:23 93 H 0 L 91/45 L 91 04/19/21 01:23 103 H 14 103/83 96 Laboratory Results Short CBC 04/19/21 Range/Units 05:10 WBC 7.05 (4.8-10.8) K/uL Hgb 9.8 L (14.0-18.0) g/dL Hct 31.2 L (42-52) % Plt Count 128 L (130-400) K/uL BMP 04/19/21 05:10 Sodium 137 Potassium 3.1 L Chloride 106 Carbon Dioxide 29 BUN 11 Creatinine 0.71 Glucose 87 Calcium 8.0 L Medications Administered Current Inpatient Medications Acetaminophen (Acetaminophen 325 Mg Tab) 325 mg PO Q6H PRN PRN Reason: Pain or Fever Stop: 05/17/21 23:16 Acetaminophen (Acetaminophen 325 Mg Tab) 650 mg PO Q8 [facility] Stop: 05/18/21 05:59 Last Admin: 04/19/21 05:54 Dose: 650 mg Documented by: Allopurinol (Allopurinol 300 Mg Tab) 300 mg PO HS [facility] Stop: 05/16/21 20:59 Last Admin: 04/18/21 20:19 Dose: 300 mg Documented by: Ascorbic Acid (Ascorbic Acid 500 Mg Tab) 1,000 mg PO BID [facility] Stop: 04/22/21 21:01 Last Admin: 04/19/21 09:15 Dose: 1,000 mg Documented by: Aspirin (Aspirin 325 Mg Ectab) 325 mg PO [facility] Stop: 05/16/21 20:59 Last Admin: 04/18/21 20:14 Dose: 325 mg Documented by: Dextrose (Dextrose 50% 50 Ml Syringe) 25 - 50 ml IV UD PRN; Protocol PRN Reason: Hypoglycemia Protocol Stop: 05/16/21 05:37 Glucagon (Glucagon For Inj 1 Mg Vial) 1 mg SQ UD PRN; Protocol PRN Reason: Hypoglycemia Protocol Stop: 05/16/21 05:37 Glucose (Glucose 10 Tabs/Tube) 4 - 8 tabs PO UD PRN; Protocol PRN Reason: Hypoglycemia Protocol Stop: 05/16/21 05:37 Glucose (Glucose 40% Gel 15 Gm Tube) 15 - 30 gm PO UD PRN; Protocol PRN Reason: Hypoglycemia Protocol Stop: 05/16/21 05:37 Guaifenesin (Guaifenesin 600 Mg Tabcr) 600 mg PO Q12 [facility] Stop: 04/20/21 21:01 Last Admin: 04/19/21 09:15 Dose: 600 mg Documented by: Diltiazem HCl 125 mg/ Dextrose 125 mls @ 10 mls/hr IV .[id number] [facility]; Protocol Stop: 05/16/21 00:59 Last Titration: 04/19/21 07:17 Dose: 10 mg/hr, 10 mls/hr Documented by: Sodium Chloride (Nss 1000ml) 1,000 mls @ 60 mls/hr IV .[id number] [facility] Stop: 05/16/21 05:29 Last Infusion: 04/17/21 04:43 Dose: Infused Documented by: Ceftriaxone Sodium 2,000 mg/ (Dextrose) 70 mls @ 140 mls/hr IV Q24H [facility]; Protocol Stop: 04/22/21 17:59 Last Infusion: 04/18/21 19:02 Dose: Infused Documented by: Doxycycline Hyclate 100 mg/ (Dextrose) 110 mls @ 55 mls/hr IV BID [facility]; Protocol Stop: 04/22/21 20:59 Last Infusion: 04/19/21 11:23 Dose: Infused Documented by: Magnesium Sulfate/Dextrose (Magnesium Sulfate / D5w) 1 gm in 100 mls @ 50 mls/hr IV Q2H [facility] Stop: 04/19/21 13:59 Last Admin: 04/19/21 12:48 Dose: 50 mls/hr Documented by: Potassium Phosphate 24 mmol/ (Sodium Chloride) 508 mls @ 127 mls/hr IV ONE ONE Stop: 04/19/21 13:14 Last Admin: 04/19/21 10:48 Dose: 127 mls/hr Documented by: Insulin Aspart (Insulin Aspart 100 Units/Ml 3 Ml Pen) 0 units SC ACHS [facility] Stop: 05/16/21 07:29 Last Admin: 04/19/21 11:55 Dose: Not Given Documented by: Insulin Glargine (Insulin Glargine Solostar 100 Units/Ml 3 Ml Pen) 5 units SC DAILY [facility] Stop: 05/19/21 08:59 Last Admin: 04/19/21 09:15 Dose: 5 units Documented by: Metoprolol Tartrate (Metoprolol Tartrate 25 Mg Tab) 12.5 mg PO BID [facility] Stop: 05/17/21 11:29 Last Admin: 04/19/21 09:15 Dose: 12.5 mg Documented by: Miscellaneous (Carbohydrates For Hypoglycemia ) 15 - 30 gm PO UD PRN PRN Reason: Hypoglycemia Protocol Stop: 05/16/21 05:37 Montelukast Sodium (Montelukast Sodium 10 Mg Tablet) 10 mg PO HS [facility] Stop: 05/16/21 20:59 Last Admin: 04/18/21 20:20 Dose: 10 mg Documented by: Morphine Sulfate (Morphine Sulfate 4 Mg/Ml 1 Ml Carp\Vial) 4 mg IV Q4H PRN PRN Reason: severe breakthrough pain Stop: 04/30/21 05:36 Last Admin: 04/18/21 23:12 Dose: 4 mg Documented by: Multivitamins (Multivitamin Tab) 1 tab PO QAM [facility] Stop: 05/16/21 08:59 Last Admin: 04/19/21 09:17 Dose: 1 tab Documented by: Ondansetron HCl (Ondansetron Inj 2 Mg/Ml 2 Ml Vial) 4 mg IV Q6H PRN PRN Reason: Nausea Stop: 05/16/21 01:00 Polyethylene Glycol (Polyethylene (Miralax) 17 Gm Pack) 17 gm PO DAILY PRN PRN Reason: Constipation Stop: 05/16/21 01:00 Potassium Chloride (Potassium Chloride Crtab 20 Meq Tabcr) 20 meq PO DAILY [facility] Stop: 05/16/21 08:59 Last Admin: 04/19/21 09:15 Dose: 20 meq Documented by: Primidone (Primidone 250 Mg Tab) 500 mg PO HS [facility] Stop: 05/16/21 20:59 Last Admin: 04/18/21 20:14 Dose: 500 mg Documented by: Senna/Docusate Sodium (Docusate Sodium/Senna 50/8.6mg Tab) 1 tab PO BID [facility] Stop: 05/16/21 08:59 Last Admin: 04/19/21 09:15 Dose: 1 tab Documented by: Tramadol HCl (Tramadol Hcl 50 Mg Tablet) 50 mg PO Q8 [facility] Stop: 05/16/21 05:59 Last Admin: 04/19/21 05:55 Dose: 50 mg Documented by: Warfarin Sodium (Warfarin Sod 5 Mg Tab) 5 mg PO DAILY@1600 [facility] Stop: 05/16/21 15:59 Last Admin: 04/18/21 20:14 Dose: 5 mg Documented by: (1) Decubitus ulcer of sacral area Pressure injury stage: unstageable Qualified Code(s): L89.150 - Pressure ulcer of sacral region, unstageable
--- NOTE | 2021-04-19 13:54 | Surgery Progress Note ---
Date of Service April 19, 2021 Assessment & Plan (1) Decubitus ulcer of sacral area: (2) Atrial fibrillation with rapid ventricular response: (3) Diastolic dysfunction: (4) History of pulmonary embolism: (5) Chronic left ventricular systolic heart failure: (6) Chronic kidney disease stage 3: (7) Coronary artery disease: Plan: s/p debridement no leukocytosis, afebrile wound with healthy granulation tissue present wound care nurse consulted for wound vac placement, orders placed will need wound care clinic follow-up our services signing off, please call with questions or concerns continue medical management Dr. Antonio has seen and examined pt, agrees with above Admission and Anticipated Discharge Date Admission Date: April 15, 2021 Subjective feeling better but blood pressure is low sore and pain at wound site is present tolerating diet Physical Exam Constitutional: no acute distress and not ill appearing Skin: no rashes, warm and dry Sacral wound: good granulation tissue present in wound, no further necrosis Psychiatric: Orientation: alert and oriented x 3 Results & Data ([facility]) Vital Signs (Past 12 Hours) Vital Signs Temp Pulse Resp BP Pulse Ox 04/19/21 11:53 103 H 04/19/21 11:21 90 13 105/65 92 04/19/21 10:22 103 H 19 95/65 L 97 04/19/21 09:21 100 H 17 100/64 97 04/19/21 08:23 95 H 14 103/62 94 04/19/21 07:23 88 0 L 88/60 L 91 04/19/21 04:23 90 8 L 100/61 99 04/19/21 04:00 36.5 C 04/19/21 03:23 90 0 L 111/54 L 98 04/19/21 02:23 93 H 0 L 91/45 L 91 Laboratory Results 04/19/21 04/19/21 04/19/21 Range/Units 11:19 07:34 05:10 WBC 7.05 (4.8-10.8) K/uL RBC 3.23 L (4.7-6.1) M/uL Hgb 9.8 L (14.0-18.0) g/dL Hct 31.2 L (42-52) % MCV 96.6 (80-100) fL MCH 30.3 (25-34) pg MCHC 31.4 L (32-36) g/dL RDW Std Deviation 59.9 H (36.4-46.3) fL RDW Coeff of Lizet 16.9 H (11.5-14.5) % Plt Count 128 L (130-400) K/uL MPV 10.6 H (7.4-10.4) fL Immature Gran % (Auto) 0.3 % Neut % (Auto) 75.0 % Lymph % (Auto) 11.1 % [place] % (Auto) 9.8 % Eos % (Auto) 3.7 % Baso % (Auto) 0.1 % Neut # (Auto) 5.29 (1.4-6.5) K/uL Lymph # (Auto) 0.78 L (1.2-3.4) K/uL [place] # (Auto) 0.69 H (0.11-0.59) K/uL Eos # (Auto) 0.26 (0-0.5) K/uL Baso # (Auto) 0.01 (0-0.2) K/uL Immature Gran # (Auto) 0.02 (0.00-0.02) K/uL PT (9.0-12.0) Seconds INR (0.9-1.1) Sodium (136-145) mmol/L Potassium (3.5-5.1) mmol/L Chloride (98-107) mmol/L Carbon Dioxide (21-32) mmol/L Anion Gap (3-11) BUN (7-18) mg/dl Creatinine (0.6-1.4) mg/dl Est Cr Clr Drug Dosing ml/min Est GFR ( Amer) ml/min Est GFR (Non-Af Amer) ml/min BUN/Creatinine Ratio (10-20) Glucose (70-99) mg/dl POC Glucose 106 H 79 (70-99) mg/dl Calcium (8.5-10.1) mg/dl Phosphorus (2.5-4.9) mg/dl Magnesium (1.8-2.4) mg/dl 04/19/21 04/19/21 04/18/21 Range/Units 05:10 05:10 20:53 WBC (4.8-10.8) K/uL RBC (4.7-6.1) M/uL Hgb (14.0-18.0) g/dL Hct (42-52) % MCV (80-100) fL MCH (25-34) pg MCHC (32-36) g/dL RDW Std Deviation (36.4-46.3) fL RDW Coeff of Lizet (11.5-14.5) % Plt Count (130-400) K/uL MPV (7.4-10.4) fL Immature Gran % (Auto) % Neut % (Auto) % Lymph % (Auto) % [place] % (Auto) % Eos % (Auto) % Baso % (Auto) % Neut # (Auto) (1.4-6.5) K/uL Lymph # (Auto) (1.2-3.4) K/uL [place] # (Auto) (0.11-0.59) K/uL Eos # (Auto) (0-0.5) K/uL Baso # (Auto) (0-0.2) K/uL Immature Gran # (Auto) (0.00-0.02) K/uL PT 26.3 H (9.0-12.0) Seconds INR 2.8 H (0.9-1.1) Sodium 137 (136-145) mmol/L Potassium 3.1 L (3.5-5.1) mmol/L Chloride 106 (98-107) mmol/L Carbon Dioxide 29 (21-32) mmol/L Anion Gap 2.0 L (3-11) BUN 11 (7-18) mg/dl Creatinine 0.71 (0.6-1.4) mg/dl Est Cr Clr Drug Dosing 104.7 ml/min Est GFR ( Amer) 107.9 ml/min Est GFR (Non-Af Amer) 93.1 ml/min BUN/Creatinine Ratio 15.3 (10-20) Glucose 87 (70-99) mg/dl POC Glucose 99 (70-99) mg/dl Calcium 8.0 L (8.5-10.1) mg/dl Phosphorus 2.3 L (2.5-4.9) mg/dl Magnesium 1.7 L (1.8-2.4) mg/dl 04/18/21 Range/Units 16:21 WBC (4.8-10.8) K/uL RBC (4.7-6.1) M/uL Hgb (14.0-18.0) g/dL Hct (42-52) % MCV (80-100) fL MCH (25-34) pg MCHC (32-36) g/dL RDW Std Deviation (36.4-46.3) fL RDW Coeff of Lizet (11.5-14.5) % Plt Count (130-400) K/uL MPV (7.4-10.4) fL Immature Gran % (Auto) % Neut % (Auto) % Lymph % (Auto) % [place] % (Auto) % Eos % (Auto) % Baso % (Auto) % Neut # (Auto) (1.4-6.5) K/uL Lymph # (Auto) (1.2-3.4) K/uL [place] # (Auto) (0.11-0.59) K/uL Eos # (Auto) (0-0.5) K/uL Baso # (Auto) (0-0.2) K/uL Immature Gran # (Auto) (0.00-0.02) K/uL PT (9.0-12.0) Seconds INR (0.9-1.1) Sodium (136-145) mmol/L Potassium (3.5-5.1) mmol/L Chloride (98-107) mmol/L Carbon Dioxide (21-32) mmol/L Anion Gap (3-11) BUN (7-18) mg/dl Creatinine (0.6-1.4) mg/dl Est Cr Clr Drug Dosing ml/min Est GFR ( Amer) ml/min Est GFR (Non-Af Amer) ml/min BUN/Creatinine Ratio (10-20) Glucose (70-99) mg/dl POC Glucose 80 (70-99) mg/dl Calcium (8.5-10.1) mg/dl Phosphorus (2.5-4.9) mg/dl Magnesium (1.8-2.4) mg/dl (1) Decubitus ulcer of sacral area Pressure injury stage: unstageable Qualified Code(s): L89.150 - Pressure ulcer of sacral region, unstageable
[2021-04-19] MEDS: cefTRIAXone SODIUM 2,000 MG in DEXTROSE 5% 50 ML IV SCH (16:58)
[2021-04-19] MEDS: PRIMIDONE 250 MG TAB PO SCH (20:47)
[2021-04-19] MEDS: allopurinoL 300 MG TAB PO SCH (20:49)
[2021-04-19] MEDS: ASPIRIN 325 MG ECTAB PO SCH (20:49)
[2021-04-19] MEDS: MONTELUKAST SODIUM 10 MG TABLET PO SCH (20:50)
[2021-04-20] MEDS: dilTIAZem HCL 125 MG in DEXTROSE 5% 100 ML IV SCH ×4 (02:34→17:19)
[2021-04-20] MEDS: ACETAMINOPHEN 325 MG TAB PO SCH ×3 (05:08→20:38)
[2021-04-20] MEDS: traMADol HCL 50 MG TABLET PO SCH ×3 (05:09→20:42)
[2021-04-20 06:56] LABS: Calcium 8.6 mg/dl (8.5-10.1); Creatinine Clr Calc Pharmacy 106.2 ml/min; Est GFR (African American) 108.5 ml/min; Est GFR (Non-African American) 93.6 ml/min; Phosphorus 2.9 mg/dl (2.5-4.9); Potassium 4.1 mmol/L (3.5-5.1)
[2021-04-20] MEDS: INSULIN ASPART 100 UNITS/ML 3 ML PEN SC SCH ×4 (08:32→21:26)
[2021-04-20] MEDS: ASCORBIC ACID 500 MG TAB PO SCH ×2 (08:33→20:35)
[2021-04-20] MEDS: METOPROLOL TARTRATE 25 MG TAB PO SCH ×2 (08:33→20:37)
[2021-04-20] MEDS: MULTIVITAMIN TAB PO SCH (08:33)
[2021-04-20] MEDS: guaiFENesin 600 MG TABCR PO SCH ×2 (08:33→20:37)
[2021-04-20] MEDS: POTASSIUM CHLORIDE CRTAB 20 MEQ TABCR PO SCH (08:34)
[2021-04-20] MEDS: INSULIN GLARGINE SOLOSTAR 100 UNITS/ML 3 ML PEN SC SCH (08:34)
[2021-04-20] MEDS: DOCUSATE SODIUM/SENNA 50/8.6MG TAB PO SCH ×2 (08:35→20:41)
[2021-04-20] MEDS: DOXYCYCLINE HYCLATE 100 MG in DEXTROSE 5% 100 ML IV SCH ×2 (08:39→20:41)
[2021-04-20] MEDS: MoRPHine SULFATE 4 MG/ML 1 ML CARP\\VIAL IV PRN (08:39)
--- NOTE | 2021-04-20 11:34 | Cardiology Progress Note ---
Date of Service April 20, 2021 Assessment & Plan (1) Atrial fibrillation with rapid ventricular response: (2) Sepsis: Plan: 75-year-old male with sepsis secondary to sacral decubitus ulcer status post debridement, chronic stable exertional angina, deemed to have inoperable coronary heart disease in the remote past, chronic systolic heart failure, LVEF in the range of 35 to 40%. History of paroxysmal atrial fibrillation with tachybradycardia syndrome and pacemaker placement. Wound culture growing Proteus mirabilis. Blood culture negative. Reduce intravenous Cardizem infusion to 5 mg/h. Continue to monitor telemetry. Titrate diltiazem infusion to 10 mg/h. Continue low-dose metoprolol tartrate. IV heparin discontinued. Continue warfarin for goal INR 2.0-3.0. Has a history of past heel ulcer. He has been treated for enterococcal faecalis bacteremia on 2 of 2 blood cultures obtained 01/18/2021, with work-up included negative [place] at that time. Admission and Anticipated Discharge Date Admission Date: April 15, 2021 Subjective Patient seen and examined at the bedside. Heart rate improved. More alert today. Cough and wheezing unchanged. Denies chest discomfort or palpitations. Telemetry reveals atrial flutter with heart rate ranging from 80-100BPM. Review of Systems Review of Systems: All systems reviewed & are unremarkable except as noted in Subjective Physical Exam Constitutional: well nourished and + ill appearing; no acute distress Respiratory: normal respiratory effort; no labored breathing Auscultation: + rhonchi and + wheezes Cardiovascular: Rate/Rhythm: + irregularly irregular Heart Sounds: normal S1 and normal S2 Vessels: radial pulses present; no JVD and no carotid bruit Gastrointestinal (Abdomen): Inspection/Auscultation: normal bowel sounds; abdomen not distended Percussion/Palpation: abdomen soft; abdomen nontender, no guarding and abdomen not rigid Neurologic: CN's II-XI intact bilaterally and moves all extremities; no focal motor deficits Motor/Sensory: no tremor Psychiatric: Affect: + anxious affect Results & Data ([facility]) Vital Signs (Past 12 Hours) Vital Signs Temp Pulse Resp BP Pulse Ox 04/20/21 08:40 36.6 C 100 H 14 106/63 98 04/20/21 03:00 79 20 104/65 95 04/19/21 23:59 36.7 C 83 18 107/67 97
[2021-04-20] MEDS: DICLOFENAC SOD 1% GEL 100 GM TUBE EXT SCH ×3 (14:06→20:35)
[2021-04-20] MEDS: WARFARIN SOD 5 MG TAB PO SCH (16:44)
[2021-04-20] MEDS: cefTRIAXone SODIUM 2,000 MG in DEXTROSE 5% 50 ML IV SCH (16:44)
--- NOTE | 2021-04-20 16:54 | Hospitalist Progress Note ---
Date of Service April 20, 2021 Assessment & Plan (1) Sepsis: Plan: Sepsis secondary to worsening/new sacral decubitus ulcer that is unstageable and foul-smelling. This is most likely source of sepsis with blood cultures pending. He also has a right ureteral stone that is obstructing the ureter with persistent hydronephrosis and hydroureter. Continue broad-spectrum antibiotics with Dapto and Zosyn which was started in the ER. Lactate is elevated. -And normalized IV fluids for resuscitation cautiously in the setting of poor ejection fraction. Blood pressure seems to be a little better today at 123/69 but he still remains tachycardic The wound culture is growing Proteus Mirabella's sensitive to cephalosporins, floxacillin and sulfa Blood cultures have been negative Antibiotics have been changed to intravenous ceftriaxone and intravenous doxycycline To cover possible MRSA Will likely need a few weeks of intravenous antibiotic given the nature of infection Bronchiectasis CT scan did show bilateral basal bronchiectasis without any change compared with prior Doubt any pneumonia secondary to bronchiectasis MRSA screen was positive but blood cultures have been negative We will cover with intravenous doxycycline for now His breathing is a little bit better today Electrolyte imbalance Has hypomagnesemia, hypokalemia and hypophosphatemia Electrolytes remains low and will be supplemented (2) PAF (paroxysmal atrial fibrillation): Plan: Currently in rapid ventricular response secondary to sepsis. IV fluids, broad- spectrum antibiotics. With heart rate jumping into the 150s and 160s he was started on diltiazem. 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 General surgery consulted. Wound nurse consulted. Turn every 2 and keep him off this area. Status post surgical debridement of the sacral wound Continue with wound care management and possible placement of wound VAC Wound culture is growing Proteus mirabilis and the sensitivities are noted Blood culture have been negative Antibiotic has been changed to intravenous ceftriaxone as per sensitivity Continue with the wound care management Please look at picture of the wound for detailed information Has stage IV sacral decubiti (4) Ureteral calculus, right: Plan: Consult urology, hydrate. Would consider adding Flomax once he is more hemodynamically stable and resuscitated from a sepsis standpoint. Appreciate urology input and recommendation Has asymptomatic candiduria urea-no antifungal is required now Will need oral Diflucan if he goes for any urological procedure for a few days prior and after the procedure (5) Post-operative state: Plan: Underwent left trochanteric femoral nail of left hip fracture by Dr. Woo on 03/29/2021. He should be partial weightbearing for 6 weeks postop. PT/OT to assess prior to returning to [facility]. Continue pain control efforts. (6) Diabetes mellitus, type 2: Plan: Hold home oral medications. Continue with basal bolus insulin. As patient is currently n.p.o. first dose of glargine is scheduled for this evening at 2100. (7) Ischemic cardiomyopathy: Plan: Chronic, stable. Patient is euvolemic to dry on exam and no evidence of acute coronary syndrome. Appreciate cardiology input and recommendation Denies any cardiac symptoms (8) Coronary artery disease: Plan: Chronic, stable, continue current medical management No acute cardiac symptoms (9) Chronic kidney disease stage 3: Plan: Creatinine is at baseline 1.1 (10) DVT prophylaxis: Plan: warfarin, currently subtherapeutic. Add heparin Heparin has been discontinued and continue with warfarin INR is 2. 8 as of 04/20/2021 Full Code Plan: Has a bed in [facility] Can be discharged to [facility] who are medically stable Admission and Anticipated Discharge Date Admission Date: April 15, 2021 Subjective 04/16/2021 The patient was seen and examined in ICU He remains very weak and lethargic and has moderate shortness of breath at rest Denies any significant pain 04/17/2021 The patient was seen and examined in ICU Still has moderate shortness of breath at rest but feels a little better Pain seems to be under control and denies any fever and/or chills 04/18/2021 The patient was seen and examined in ICU He has been stable with decreasing shortness of breath at rest No fever and no chills 04/19/2021 The patient was seen and examined in ICU He has been feeling much better today and denies any significant symptoms Minimally shortness of breath at rest and denies any fever and no chills 04/20/2021 The patient was seen and examined in ICU He has been feeling a little bit better today Denies any significant symptoms No fever and no chills Review of Systems Review of Systems: All systems reviewed and are unremarkable except as noted below Cardiovascular: Additional Comments: Minimal shortness of breath at rest Integumentary: Has stage IV sacral decubitus Physical Exam Constitutional: well developed, well nourished, + ill appearing and + obese Eyes: PERRL, conjunctivae normal, anicteric sclerae ENMT: external ear and nose normal, oropharynx normal Neck: trachea midline, no thyromegaly Respiratory: + respiratory distress and + labored breathing Auscultation: + diminished lung sounds, + crackles (Bilaterally) and + rales Cardiovascular: Rate/Rhythm: regular rate, regular rhythm and + tachycardic Heart Sounds: normal S1 and normal S2 Extremities: + edema (Trace edema bilaterally) Gastrointestinal (Abdomen): Inspection/Auscultation: abdomen not distended Percussion/Palpation: abdomen soft; abdomen nontender Musculoskeletal: No acute arthritis in any joint Neurologic: Alert, awake and oriented x3.Generally weak and lethargic Results & Data Results & Data ([facility]) Vital Signs (Past 12 Hours) Vital Signs Temp Pulse Pulse Resp BP Pulse Ox 04/20/21 11:30 36.8 C 92 H 16 98/65 L 92 04/20/21 08:40 36.6 C 100 H 14 106/63 98 Laboratory Results [facility] 04/20/21 05:51 Sodium 139 Potassium 4.1 D Chloride 104 Carbon Dioxide 27 BUN 12 Creatinine 0.70 Glucose 132 H Calcium 8.6 Medications Administered Current Inpatient Medications Acetaminophen (Acetaminophen 325 Mg Tab) 325 mg PO Q6H PRN PRN Reason: Pain or Fever Stop: 05/17/21 23:16 Last Admin: 04/20/21 08:36 Dose: 325 mg Documented by: Acetaminophen (Acetaminophen 325 Mg Tab) 650 mg PO Q8 ANNA Stop: 05/18/21 05:59 Last Admin: 04/20/21 14:07 Dose: 650 mg Documented by: Allopurinol (Allopurinol 300 Mg Tab) 300 mg PO HS ANNA Stop: 05/16/21 20:59 Last Admin: 04/19/21 20:49 Dose: 300 mg Documented by: Ascorbic Acid (Ascorbic Acid 500 Mg Tab) 1,000 mg PO BID ANNA Stop: 04/22/21 21:01 Last Admin: 04/20/21 08:33 Dose: 1,000 mg Documented by: Aspirin (Aspirin 325 Mg Ectab) 325 mg PO HS ANNA Stop: 05/16/21 20:59 Last Admin: 04/19/21 20:49 Dose: 325 mg Documented by: Dextrose (Dextrose 50% 50 Ml Syringe) 25 - 50 ml IV UD PRN; Protocol PRN Reason: Hypoglycemia Protocol Stop: 05/16/21 05:37 Diclofenac Sodium (Diclofenac Sod 1% Gel 100 Gm Tube) 2 gm EXT QID ANNA Stop: 05/20/21 12:59 Last Admin: 04/20/21 16:44 Dose: 2 gm Documented by: Glucagon (Glucagon For Inj 1 Mg Vial) 1 mg SQ UD PRN; Protocol PRN Reason: Hypoglycemia Protocol Stop: 05/16/21 05:37 Glucose (Glucose 10 Tabs/Tube) 4 - 8 tabs PO UD PRN; Protocol PRN Reason: Hypoglycemia Protocol Stop: 05/16/21 05:37 Glucose (Glucose 40% Gel 15 Gm Tube) 15 - 30 gm PO UD PRN; Protocol PRN Reason: Hypoglycemia Protocol Stop: 05/16/21 05:37 Guaifenesin (Guaifenesin 600 Mg Tabcr) 600 mg PO Q12 [facility] Stop: 04/20/21 21:01 Last Admin: 04/20/21 08:33 Dose: 600 mg Documented by: Diltiazem HCl 125 mg/ Dextrose 125 mls @ 5 mls/hr IV .Q24H ANNA; Protocol Stop: 05/16/21 00:59 Last Admin: 04/20/21 15:08 Dose: Not Given Documented by: Sodium Chloride (Nss 1000ml) 1,000 mls @ 60 mls/hr IV .[id number] [facility] Stop: 05/16/21 05:29 Last Infusion: 04/17/21 04:43 Dose: Infused Documented by: Ceftriaxone Sodium 2,000 mg/ (Dextrose) 70 mls @ 140 mls/hr IV Q24H ANNA; Protocol Stop: 04/22/21 17:59 Last Admin: 04/20/21 16:44 Dose: 140 mls/hr Documented by: Doxycycline Hyclate 100 mg/ (Dextrose) 110 mls @ 55 mls/hr IV BID ANNA; Protocol Stop: 04/22/21 20:59 Last Admin: 04/20/21 08:39 Dose: 55 mls/hr Documented by: Insulin Aspart (Insulin Aspart 100 Units/Ml 3 Ml Pen) 0 units SC ACHS [facility] Stop: 05/16/21 07:29 Last Admin: 04/20/21 12:00 Dose: 2 units Documented by: Insulin Glargine (Insulin Glargine Solostar 100 Units/Ml 3 Ml Pen) 5 units SC DAILY [facility] Stop: 05/19/21 08:59 Last Admin: 04/20/21 08:34 Dose: 5 units Documented by: Metoprolol Tartrate (Metoprolol Tartrate 25 Mg Tab) 12.5 mg PO BID [facility] Stop: 05/17/21 11:29 Last Admin: 04/20/21 08:33 Dose: 12.5 mg Documented by: Miscellaneous (Carbohydrates For Hypoglycemia ) 15 - 30 gm PO UD PRN PRN Reason: Hypoglycemia Protocol Stop: 05/16/21 05:37 Montelukast Sodium (Montelukast Sodium 10 Mg Tablet) 10 mg PO HS [facility] Stop: 05/16/21 20:59 Last Admin: 04/19/21 20:50 Dose: 10 mg Documented by: Morphine Sulfate (Morphine Sulfate 4 Mg/Ml 1 Ml Carp\Vial) 4 mg IV Q4H PRN PRN Reason: severe breakthrough pain Stop: 04/30/21 05:36 Last Admin: 04/20/21 08:39 Dose: 4 mg Documented by: Multivitamins (Multivitamin Tab) 1 tab PO QAM [facility] Stop: 05/16/21 08:59 Last Admin: 04/20/21 08:33 Dose: 1 tab Documented by: Ondansetron HCl (Ondansetron Inj 2 Mg/Ml 2 Ml Vial) 4 mg IV Q6H PRN PRN Reason: Nausea Stop: 05/16/21 01:00 Polyethylene Glycol (Polyethylene (Miralax) 17 Gm Pack) 17 gm PO DAILY PRN PRN Reason: Constipation Stop: 05/16/21 01:00 Potassium Chloride (Potassium Chloride Crtab 20 Meq Tabcr) 20 meq PO DAILY [facility] Stop: 05/16/21 08:59 Last Admin: 04/20/21 08:34 Dose: 20 meq Documented by: Primidone (Primidone 250 Mg Tab) 500 mg PO HS [facility] Stop: 05/16/21 20:59 Last Admin: 04/19/21 20:47 Dose: 500 mg Documented by: Senna/Docusate Sodium (Docusate Sodium/Senna 50/8.6mg Tab) 1 tab PO BID [facility] Stop: 05/16/21 08:59 Last Admin: 04/20/21 08:35 Dose: 1 tab Documented by: Tramadol HCl (Tramadol Hcl 50 Mg Tablet) 50 mg PO Q8 [facility] Stop: 05/16/21 05:59 Last Admin: 04/20/21 14:05 Dose: 50 mg Documented by: Warfarin Sodium (Warfarin Sod 5 Mg Tab) 5 mg PO DAILY@1600 [facility] Stop: 05/16/21 15:59 Last Admin: 04/20/21 16:44 Dose: 5 mg Documented by: (1) Decubitus ulcer of sacral area Pressure injury stage: unstageable Qualified Code(s): L89.150 - Pressure ulcer of sacral region, unstageable
[2021-04-20] MEDS: allopurinoL 300 MG TAB PO SCH (20:34)
[2021-04-20] MEDS: ASPIRIN 325 MG ECTAB PO SCH (20:35)
[2021-04-20] MEDS: MONTELUKAST SODIUM 10 MG TABLET PO SCH (20:37)
[2021-04-20] MEDS: PRIMIDONE 250 MG TAB PO SCH (20:38)
[2021-04-21 05:10] LABS: INR 2.1 (0.9-1.1); Prothrombin Time 19.8 Seconds (9.0-12.0)
[2021-04-21] MEDS: traMADol HCL 50 MG TABLET PO SCH ×3 (06:51→20:55)
[2021-04-21] MEDS: ACETAMINOPHEN 325 MG TAB PO SCH ×3 (06:53→20:48)
[2021-04-21] MEDS: INSULIN ASPART 100 UNITS/ML 3 ML PEN SC SCH ×4 (08:06→20:45)
[2021-04-21] MEDS: INSULIN GLARGINE SOLOSTAR 100 UNITS/ML 3 ML PEN SC SCH (10:46)
[2021-04-21] MEDS: ASCORBIC ACID 500 MG TAB PO SCH ×2 (10:46→20:46)
[2021-04-21] MEDS: DOCUSATE SODIUM/SENNA 50/8.6MG TAB PO SCH ×2 (10:46→20:55)
[2021-04-21] MEDS: METOPROLOL TARTRATE 25 MG TAB PO SCH ×2 (10:46→20:45)
[2021-04-21] MEDS: DICLOFENAC SOD 1% GEL 100 GM TUBE EXT SCH ×4 (10:46→20:47)
[2021-04-21] MEDS: DOXYCYCLINE HYCLATE 100 MG in DEXTROSE 5% 100 ML IV SCH ×2 (10:46→20:53)
[2021-04-21] MEDS: MULTIVITAMIN TAB PO SCH (10:47)
[2021-04-21] MEDS: POTASSIUM CHLORIDE CRTAB 20 MEQ TABCR PO SCH (10:47)
--- NOTE | 2021-04-21 11:58 | Cardiology Progress Note ---
Date of Service April 21, 2021 Assessment & Plan (1) Atrial fibrillation with rapid ventricular response: (2) Sepsis: Plan: 75-year-old male with sepsis secondary to sacral decubitus ulcer status post debridement, chronic stable exertional angina, deemed to have inoperable coronary heart disease in the remote past, chronic systolic heart failure, LVEF in the range of 35 to 40%. History of paroxysmal atrial fibrillation with tachybradycardia syndrome and pacemaker placement. Wound culture growing Proteus mirabilis. Blood culture negative. Respiratory status unchanged. Patient previously treated with chronic diuretic therapy, however, on hold since admission. Recommend 20 mg IV Lasix today followed by 20 mg daily. Heart rate remains reasonable. I am reluctant to titrate beta-isaías due to active wheeze and tenuous respiratory status. Patient is not a good candidate for amiodarone due to chronic obstructive pulmonary disease. Has a history of heel ulcer. Treated for enterococcal faecalis bacteremia on 2 of 2 blood cultures obtained 01/18/2021, with work-up included negative [place] at that time. Admission and Anticipated Discharge Date Admission Date: April 15, 2021 Subjective Patient seen and examined the bedside. No changes overnight. Telemetry reveals atrial fibrillation/flutter with heart rate ranging from 90-110 bpm. Blood pressure remains borderline hypotensive. Denies lightheadedness or dizziness. Respiratory status unchanged. No fever or chills. Reports discomfort in the area of his left lower extremity surgical site. No discomfort in the area of his wound VAC. Review of Systems Review of Systems: All systems reviewed & are unremarkable except as noted in Subjective Physical Exam Constitutional: well nourished and + ill appearing; no acute distress Respiratory: normal respiratory effort; no labored breathing Auscultation: + rhonchi and + wheezes Cardiovascular: Rate/Rhythm: + irregularly irregular Heart Sounds: normal S1 and normal S2 Vessels: radial pulses present; no JVD and no carotid bruit Gastrointestinal (Abdomen): Inspection/Auscultation: normal bowel sounds; abdomen not distended Percussion/Palpation: abdomen soft; abdomen nontender, no guarding and abdomen not rigid Neurologic: CN's II-XI intact bilaterally and moves all extremities; no focal motor deficits Motor/Sensory: no tremor Psychiatric: Affect: + anxious affect Results & Data ([facility]) Vital Signs (Past 12 Hours) Vital Signs Temp Pulse Pulse Pulse Resp BP BP 04/21/21 10:45 113 H 15 04/21/21 10:30 105 H 8 L 04/21/21 10:15 111 H 12 04/21/21 10:00 37 C 119 H 17 04/21/21 09:45 109 H 13 04/21/21 08:00 82 04/21/21 07:46 36.5 C 103 H 20 106/52 L 04/21/21 07:33 107 H 18 106/52 L 04/21/21 03:32 89 10 L 95/50 L 04/21/21 03:30 36.8 C 88 18 95/50 L Pulse Ox 04/21/21 10:45 04/21/21 10:30 04/21/21 10:15 04/21/21 10:00 80 L 04/21/21 09:45 82 L 04/21/21 08:00 04/21/21 07:46 100 04/21/21 07:33 04/21/21 03:32 04/21/21 03:30 95
[2021-04-21] MEDS: MoRPHine SULFATE 4 MG/ML 1 ML CARP\\VIAL IV PRN ×2 (12:13→23:00)
--- NOTE | 2021-04-21 14:07 | Hospitalist Progress Note ---
Date of Service April 21, 2021 Assessment & Plan (1) Sepsis: Plan: Sepsis secondary to worsening/new sacral decubitus ulcer that is unstageable and foul-smelling. Most likely source of his sepsis. He also has a right ureteral stone that is obstructing the ureter with persistent hydronephrosis and hydroureter. Wound culture is growing Proteus Mirabella's sensitive to cephalosporins, floxacillin and sulfa Blood cultures have been negative. He remains on ceftriaxone and doxycycline. Given extensive wound, will need few weeks of antibiotic therapy. Bronchiectasis CT scan did show bilateral basal bronchiectasis without any change compared with prior. Doubt any pneumonia secondary to bronchiectasis. MRSA screen was positive but blood cultures have been negative Currently remains on 2 L of nasal cannula.denies feeling short of breath. Hypomagnesemia, hypokalemia and hypophosphatemia -resolved (2) PAF (paroxysmal atrial fibrillation): Plan: Appreciate cardiology input. Started IV Lasix 40 mg today. Patient remains tachycardic. Remains on diltiazem infusion. Continue metoprolol 12.5 mg twice daily. (3) Decubitus ulcer of sacral area: Plan: Foul-smelling, unstageable. General surgery consulted. Wound nurse consulted. Turn every 2 and keep him off this area. Status post surgical debridement of the sacral wound Continue with wound care management and possible placement of wound VAC Wound culture is growing Proteus mirabilis and the sensitivities are noted Blood culture have been negative Has stage IV sacral decubitis. Continue with ceftriaxone and doxycycline. (4) Ureteral calculus, right: Plan: Appreciate urology input. Would consider adding Flomax once he is more hemodynamically stable and resuscitated from a sepsis standpoint. Appreciate urology input and recommendation Has asymptomatic candiduria urea-no antifungal is required now Will need oral Diflucan if he goes for any urological procedure for a few days prior and after the procedure (5) Post-operative state: Plan: Underwent left trochanteric femoral nail of left hip fracture by Dr. Woo on 03/29/2021. He should be partial weightbearing for 6 weeks postop. PT/OT to assess prior to returning to [facility]. Continue pain control efforts. (6) Diabetes mellitus, type 2: Plan: Hold home oral medications. Continue with basal bolus insulin. . (7) Ischemic cardiomyopathy: Plan: Chronic, stable. Patient is euvolemic to dry on exam and no evidence of acute coronary syndrome. Appreciate cardiology input and recommendation Denies any cardiac symptoms (8) Coronary artery disease: Plan: Chronic, stable, continue current medical management No acute cardiac symptoms (9) Chronic kidney disease stage 3: Plan: Creatinine is at baseline 1.1 (10) DVT prophylaxis: Plan: Continue with daily Coumadin. INR today 2.1. Plan: Has a bed in [facility] Can be discharged to [facility] once he is medically stable. Admission and Anticipated Discharge Date Admission Date: April 15, 2021 Subjective Patient reports he is having left hip pain. Denies any chest pain, shortness of breath, abdominal pain or diarrhea. Remains afebrile. Review of Systems Review of Systems: All systems reviewed & are unremarkable except as noted in HPI & below Physical Exam Physical Exam: General: A&Ox3. Ill-appearing gentleman HENT: NCAT, MMM, EOMI Eyes: PERRLA Neck: Supple, normal range of motion CVS: Tachycardic Resp: b/l crackles appreciated Abdomen: Soft, ND/NT Extremities: No c/c/e Neuro: face symmetric, no gross focal deficit Skin: warm and dry, no rashes/lesions/errythema MSK: normal ROM, no joint swelling/erythema Cisneros catheter in place. Results & Data Results & Data ([facility]) Vital Signs (Past 12 Hours) Vital Signs Temp Pulse Pulse Pulse Resp BP BP 04/21/21 10:45 113 H 15 04/21/21 10:30 105 H 8 L 04/21/21 10:15 111 H 12 04/21/21 10:00 37 C 119 H 17 04/21/21 09:45 109 H 13 04/21/21 08:00 82 04/21/21 07:46 36.5 C 103 H 20 106/52 L 04/21/21 07:33 107 H 18 106/52 L 04/21/21 03:32 89 10 L 95/50 L 04/21/21 03:30 36.8 C 88 18 95/50 L Pulse Ox 04/21/21 10:45 04/21/21 10:30 04/21/21 10:15 04/21/21 10:00 80 L 04/21/21 09:45 82 L 04/21/21 08:00 04/21/21 07:46 100 04/21/21 07:33 04/21/21 03:32 04/21/21 03:30 95 (1) Decubitus ulcer of sacral area Pressure injury stage: unstageable Qualified Code(s): L89.150 - Pressure ulcer of sacral region, unstageable
[2021-04-21] MEDS: FUROSEMIDE 20 MG in SYRINGE 0 ML IV SCH (14:13)
[2021-04-21] MEDS: dilTIAZem HCL 125 MG in DEXTROSE 5% 100 ML IV SCH (17:21)
[2021-04-21] MEDS: cefTRIAXone SODIUM 2,000 MG in DEXTROSE 5% 50 ML IV SCH (17:22)
[2021-04-21] MEDS: WARFARIN SOD 5 MG TAB PO SCH (17:23)
[2021-04-21] MEDS: MONTELUKAST SODIUM 10 MG TABLET PO SCH (20:45)
[2021-04-21] MEDS: allopurinoL 300 MG TAB PO SCH (20:46)
[2021-04-21] MEDS: ASPIRIN 325 MG ECTAB PO SCH (20:47)
[2021-04-21] MEDS: PRIMIDONE 250 MG TAB PO SCH (20:48)
[2021-04-22 05:20] LABS: Basophils # (auto) 0.02 K/uL (0-0.2); Basophils % (auto) 0.4 %; Eosinophils # (auto) 0.37 K/uL (0-0.5); Eosinophils % (auto) 7.1 %; Hematocrit (blood only) 32.5 % (42-52); Immature Granulocytes # (auto) 0.03 K/uL (0.00-0.02); Immature Granulocytes % (auto) 0.6 %; Lymphocytes # (auto) 1.01 K/uL (1.2-3.4); Lymphocytes % (auto) 19.4 %; Mean Corpuscular Hemoglobin 30.1 pg (25-34); Mean Corpuscular Hgb Conc 30.8 g/dL (32-36); Mean Corpuscular Volume 97.9 fL (80-100); Mean Platelet Volume 10.7 fL (7.4-10.4); Monocytes % (auto) 11.5 %; Neutrophils # (auto) 3.17 K/uL (1.4-6.5); Platelet Count 126 K/uL (130-400); RDW Coefficient of Variation 16.8 % (11.5-14.5); RDW Standard Deviation 60.3 fL (36.4-46.3); Red Blood Count 3.32 M/uL (4.7-6.1)
[2021-04-22 05:41] LABS: Albumin Level 1.8 gm/dl (3.4-5.0); BUN Creatinine Ratio 16.4 (10-20); Calcium 8.3 mg/dl (8.5-10.1); Creatinine Clr Calc Pharmacy 88.5 ml/min; Est GFR (African American) 100.7 ml/min; Est GFR (Non-African American) 86.9 ml/min; Magnesium 1.8 mg/dl (1.8-2.4); Potassium 4.5 mmol/L (3.5-5.1)
[2021-04-22 05:44] LABS: Albumin Globulin Ratio 0.4 (0.9-2); Bilirubin,Total 0.2 mg/dl (0.2-1); Globulin 4.5 gm/dl (2.5-4.0); Phosphorus 2.6 mg/dl (2.5-4.9); Total Protein 6.3 gm/dl (6.4-8.2)
[2021-04-22] MEDS: ACETAMINOPHEN 325 MG TAB PO SCH ×3 (06:31→21:29)
[2021-04-22] MEDS: traMADol HCL 50 MG TABLET PO SCH ×3 (06:32→21:38)
[2021-04-22] MEDS: FUROSEMIDE 20 MG in SYRINGE 0 ML IV SCH (08:25)
[2021-04-22] MEDS: INSULIN ASPART 100 UNITS/ML 3 ML PEN SC SCH ×4 (08:25→21:38)
[2021-04-22] MEDS: MoRPHine SULFATE 4 MG/ML 1 ML CARP\\VIAL IV PRN ×2 (08:26→15:36)
[2021-04-22] MEDS: ASCORBIC ACID 500 MG TAB PO SCH ×2 (08:26→21:24)
[2021-04-22] MEDS: DOXYCYCLINE HYCLATE 100 MG in DEXTROSE 5% 100 ML IV SCH (08:26)
[2021-04-22] MEDS: INSULIN GLARGINE SOLOSTAR 100 UNITS/ML 3 ML PEN SC SCH (08:26)
[2021-04-22] MEDS: DICLOFENAC SOD 1% GEL 100 GM TUBE EXT SCH ×4 (08:27→21:25)
[2021-04-22] MEDS: MULTIVITAMIN TAB PO SCH (08:27)
[2021-04-22] MEDS: POTASSIUM CHLORIDE CRTAB 20 MEQ TABCR PO SCH (09:26)
[2021-04-22] MEDS: METOPROLOL TARTRATE 25 MG TAB PO SCH ×3 (09:26→21:27)
[2021-04-22] MEDS: DOCUSATE SODIUM/SENNA 50/8.6MG TAB PO SCH ×2 (09:26→21:37)
--- NOTE | 2021-04-22 11:33 | Hospitalist Progress Note ---
Date of Service April 22, 2021 Assessment & Plan (1) Sepsis: Plan: Sepsis secondary to worsening/new sacral decubitus ulcer that is unstageable and foul-smelling. S/P Debridement of sacral decubitus ulcer 04/16/21 (Significant necrotic and gangrenous tissue at the surface of the ulcer. This was debrided. No bone was exposed. The tissue was debrided back to healthy bleeding tissue). Most likely source of his sepsis. He also has a right ureteral stone that is obstructing the ureter with persistent hydronephrosis and hydroureter. Wound culture is growing Proteus Mirabella's sensitive to cephalosporins, floxacillin and sulfa Blood cultures have been negative. He remains on ceftriaxone and doxycycline. As per the OR report, gangrenous/necrotic tissue was removed. Tissue was debrided back to healthy tissue. Likely does not need prolonged antibiotic. Given extensive wound, will need few weeks of antibiotic therapy. Bronchiectasis Acute hypoxic respiratory failure - resolved CT scan did show bilateral basal bronchiectasis without any change compared with prior. Doubt any pneumonia secondary to bronchiectasis. MRSA screen was positive but blood cultures have been negative Currently on room air. Hypomagnesemia, hypokalemia and hypophosphatemia - resolved (2) PAF (paroxysmal atrial fibrillation): Plan: Appreciate cardiology input. Started IV Lasix 20 mg today. Patient remains tachycardic. Remains on diltiazem infusion. Continue metoprolol 12.5 mg twice daily. (3) Decubitus ulcer of sacral area: Plan: Foul-smelling, unstageable. General surgery consulted. Wound nurse consulted. Turn every 2 and keep him off this area. Status post surgical debridement of the sacral wound Continue with wound care management and possible placement of wound VAC Wound culture is growing Proteus mirabilis and the sensitivities are noted Blood culture have been negative Has stage IV sacral decubitis. Continue with ceftriaxone and doxycycline. (4) Ureteral calculus, right: Plan: Appreciate urology input. Would consider adding Flomax once he is more hemodynamically stable and resuscitated from a sepsis standpoint. Appreciate urology input and recommendation Has asymptomatic candiduria urea-no antifungal is required now Will need oral Diflucan if he goes for any urological procedure for a few days prior and after the procedure (5) Post-operative state: Plan: Underwent left trochanteric femoral nail of left hip fracture by Dr. Woo on 03/29/2021. He should be partial weightbearing for 6 weeks postop. PT/OT to assess prior to returning to [facility]. Continue pain control efforts. (6) Diabetes mellitus, type 2: Plan: Hold home oral medications. Continue with basal bolus insulin. . (7) Ischemic cardiomyopathy: Plan: Chronic, stable. Patient is euvolemic to dry on exam and no evidence of acute coronary syndrome. Appreciate cardiology input and recommendation Denies any cardiac symptoms (8) Coronary artery disease: Plan: Chronic, stable, continue current medical management No acute cardiac symptoms (9) Chronic kidney disease stage 3: Plan: Creatinine is at baseline 1.1 (10) DVT prophylaxis: Plan: Continue with daily Coumadin. INR pending today. Plan: Has a bed in [facility] care Can be discharged to [facility] once he is medically stable. Admission and Anticipated Discharge Date Admission Date: April 15, 2021 Subjective Overall doing okay. However his primary complaint is pain in the left hip. Denies any chest pain, shortness of breath, abdominal pain or diarrhea. Denies any nausea or vomiting. Currently remains on room air. Review of Systems Review of Systems: All systems reviewed & are unremarkable except as noted in HPI & below Physical Exam Physical Exam: General: A&Ox3. Ill-appearing gentleman HENT: NCAT, MMM, EOMI Eyes: PERRLA Neck: Supple, normal range of motion CVS: Tachycardic Resp: b/l crackles appreciated Abdomen: Soft, ND/NT Extremities: Left hip incision c/d/i Back: Wound VAC in place, dressing is intact Neuro: face symmetric, no gross focal deficit Skin: warm and dry, no rashes/lesions/errythema MSK: normal ROM, no joint swelling/erythema Cisneros catheter in place. Results & Data Results & Data ([facility]) Vital Signs (Past 12 Hours) Vital Signs Temp Pulse Pulse Resp BP Pulse Ox 04/22/21 11:20 36.3 C L 115 H 18 105/79 94 04/22/21 07:59 36.5 C 95 H 16 111/55 L 92 04/22/21 04:25 36.4 C L 101 H 101 H 12 101/60 98 04/22/21 00:01 36.5 C 88 18 94/51 L 99 (1) Decubitus ulcer of sacral area Pressure injury stage: unstageable Qualified Code(s): L89.150 - Pressure ulcer of sacral region, unstageable
--- NOTE | 2021-04-22 13:50 | Cardiology Progress Note ---
Date of Service April 22, 2021 Assessment & Plan (1) Atrial fibrillation with rapid ventricular response: (2) Sepsis: Plan: 75-year-old male with sepsis secondary to sacral decubitus ulcer status post debridement, chronic stable exertional angina, deemed to have inoperable coronary heart disease in the remote past, chronic systolic heart failure, LVEF in the range of 35 to 40%. History of paroxysmal atrial fibrillation with tachybradycardia syndrome and pacemaker placement. Furosemide restarted yesterday. Fluid balance -850 cc. Increase metoprolol tartrate 12.5 mg 3 times daily. Wean intravenous Cardizem infusion as tolerated. Wound culture growing Proteus mirabilis. Blood culture negative. Dose Coumadin daily for goal INR 2.0-3.0. Has a history of heel ulcer. Treated for enterococcal faecalis bacteremia on 2 of 2 blood cultures obtained 01/18/2021, with work-up included negative [place] at that time. Admission and Anticipated Discharge Date Admission Date: April 15, 2021 Subjective Patient seen and examined the bedside. Denies chest pain or unusual shortness of breath. Cough and wheezing unchanged. Heart rate remains elevated on telemetry. Cardizem infusing at 5 mg/h. Patient denies orthopnea, PND, or edema. Lasix restarted yesterday. Review of Systems Review of Systems: All systems reviewed & are unremarkable except as noted in Subjective Physical Exam Constitutional: well nourished and + ill appearing; no acute distress Respiratory: normal respiratory effort; no labored breathing Auscultation: + rhonchi and + wheezes Cardiovascular: Rate/Rhythm: + irregularly irregular Heart Sounds: normal S1 and normal S2 Vessels: radial pulses present; no JVD and no carotid bruit Gastrointestinal (Abdomen): Inspection/Auscultation: normal bowel sounds; abdomen not distended Percussion/Palpation: abdomen soft; abdomen nontender, no guarding and abdomen not rigid Neurologic: CN's II-XI intact bilaterally and moves all extremities; no focal motor deficits Motor/Sensory: no tremor Psychiatric: Affect: + anxious affect Results & Data ([facility]) Vital Signs (Past 12 Hours) Vital Signs Temp Pulse Pulse Resp BP Pulse Ox 04/22/21 11:20 36.3 C L 115 H 18 105/79 94 04/22/21 07:59 36.5 C 95 H 16 111/55 L 92 04/22/21 04:25 36.4 C L 101 H 101 H 12 101/60 98
[2021-04-22] MEDS: WARFARIN SOD 5 MG TAB PO SCH (15:36)
[2021-04-22] MEDS: dilTIAZem HCL 125 MG in DEXTROSE 5% 100 ML IV SCH (17:11)
[2021-04-22] MEDS: allopurinoL 300 MG TAB PO SCH (21:24)
[2021-04-22] MEDS: ASPIRIN 325 MG ECTAB PO SCH (21:25)
[2021-04-22] MEDS: MONTELUKAST SODIUM 10 MG TABLET PO SCH (21:28)
[2021-04-22] MEDS: PRIMIDONE 250 MG TAB PO SCH (21:29)
[2021-04-23] MEDS: MoRPHine SULFATE 4 MG/ML 1 ML CARP\\VIAL IV PRN ×2 (02:17→09:13)
[2021-04-23] MEDS ORDERED: HYDROmorphone INJ 0.5 MG/0.5 ML SYR IV STA (02:43)
[2021-04-23 05:30] LABS: INR 3.1 (0.9-1.1); Prothrombin Time 28.8 Seconds (9.0-12.0)
[2021-04-23] MEDS: ACETAMINOPHEN 325 MG TAB PO SCH ×3 (06:36→21:36)
[2021-04-23] MEDS: MULTIVITAMIN TAB PO SCH (08:25)
[2021-04-23] MEDS: METOPROLOL TARTRATE 25 MG TAB PO SCH ×3 (08:25→21:34)
[2021-04-23] MEDS: FUROSEMIDE 20 MG in SYRINGE 0 ML IV SCH (08:26)
[2021-04-23] MEDS: DICLOFENAC SOD 1% GEL 100 GM TUBE EXT SCH ×4 (08:28→21:33)
[2021-04-23] MEDS: DOCUSATE SODIUM/SENNA 50/8.6MG TAB PO SCH (08:30)
[2021-04-23] MEDS: POTASSIUM CHLORIDE CRTAB 20 MEQ TABCR PO SCH (08:30)
[2021-04-23] MEDS: INSULIN GLARGINE SOLOSTAR 100 UNITS/ML 3 ML PEN SC SCH (08:31)
[2021-04-23] MEDS: INSULIN ASPART 100 UNITS/ML 3 ML PEN SC SCH ×4 (08:33→21:50)
[2021-04-23] MEDS: oxyCODONE HCL IR 5 MG TAB (IMMEDIATE RELEASE) PO PRN ×2 (08:44→21:51)
--- NOTE | 2021-04-23 12:22 | Cardiology Progress Note ---
Date of Service April 23, 2021 Assessment & Plan (1) Atrial fibrillation with rapid ventricular response: (2) Sepsis: Plan: 75-year-old male with sepsis secondary to sacral decubitus ulcer status post debridement, chronic stable exertional angina, deemed to have inoperable coronary heart disease in the remote past, chronic systolic heart failure, LVEF in the range of 35 to 40%. History of paroxysmal atrial fibrillation with tachybradycardia syndrome and pacemaker placement. Furosemide restarted yesterday. Fluid balance 1680cc. Continue metoprolol tartrate 12.5 mg 3 times daily. Discontinue intravenous Cardizem infusion. Transition IV Lasix to oral formulation. Wound culture growing Proteus mirabilis. Blood culture negative. Dose Coumadin daily for goal INR 2.0-3.0. Has a history of heel ulcer. Treated for enterococcal faecalis bacteremia on 2 of 2 blood cultures obtained 01/18/2021, with work-up included negative [place] at that time. Admission and Anticipated Discharge Date Admission Date: April 15, 2021 Subjective Patient seen examined the bedside. Denies chest pain, palpitations, or shortness of breath. Nonproductive cough and wheezing unchanged. Denies orthopnea or PND. Tolerating diuretic therapy. Metoprolol titrated to 12.5 mg 3 times daily. Heart rate ranging from 90-110 bpm. Review of Systems Review of Systems: All systems reviewed & are unremarkable except as noted in Subjective Physical Exam Constitutional: well nourished and + ill appearing; no acute distress Respiratory: normal respiratory effort; no labored breathing Auscultation: + rhonchi and + wheezes Cardiovascular: Rate/Rhythm: + irregularly irregular Heart Sounds: normal S1 and normal S2 Vessels: radial pulses present; no JVD and no carotid bruit Gastrointestinal (Abdomen): Inspection/Auscultation: normal bowel sounds; abdomen not distended Percussion/Palpation: abdomen soft; abdomen nontender, no guarding and abdomen not rigid Neurologic: CN's II-XI intact bilaterally and moves all extremities; no focal motor deficits Motor/Sensory: no tremor Psychiatric: Affect: + anxious affect Results & Data ([place]) Vital Signs (Past 12 Hours) Vital Signs Temp Pulse Pulse Resp BP BP Pulse Ox 04/23/21 12:06 36.4 C L 96 H 20 101/58 L 96 04/23/21 10:00 106 H 16 04/23/21 09:00 117 H 24 04/23/21 08:00 36.8 C 133 H 18 113/65 96 04/23/21 07:00 112 H 28 H 04/23/21 05:37 36.7 C 110 H 16 135/60 93 04/23/21 02:17 36.7 C 115 H 19 126/79 93
--- NOTE | 2021-04-23 13:46 | Hospitalist Progress Note ---
Date of Service April 23, 2021 Assessment & Plan (1) Sepsis: Plan: Sepsis secondary to worsening/new sacral decubitus ulcer that is unstageable and foul-smelling. S/P Debridement of sacral decubitus ulcer 04/16/21 (Significant necrotic and gangrenous tissue at the surface of the ulcer. This was debrided. No bone was exposed. The tissue was debrided back to healthy bleeding tissue). Most likely source of his sepsis. He also has a right ureteral stone that is obstructing the ureter with persistent hydronephrosis and hydroureter. Wound culture is growing Proteus Mirabella's sensitive to cephalosporins, floxacillin and sulfa Blood cultures have been negative. He remains on ceftriaxone and doxycycline. As per the OR report, gangrenous/necrotic tissue was removed. Tissue was debrided back to healthy tissue. Likely does not need prolonged antibiotic. Given extensive wound, will need few weeks of antibiotic therapy Antibiotics will be continued for a total of 2 weeks intravenously. Bronchiectasis Acute hypoxic respiratory failure - resolved CT scan did show bilateral basal bronchiectasis without any change compared with prior. Doubt any pneumonia secondary to bronchiectasis. MRSA screen was positive but blood cultures have been negative Currently on room air and saturating well Hypomagnesemia, hypokalemia and hypophosphatemia - resolved We will recheck tomorrow (2) PAF (paroxysmal atrial fibrillation): Plan: Appreciate cardiology input. Started IV Lasix 20 mg today. Patient remains tachycardic. Remains on diltiazem infusion. Continue metoprolol 12.5 mg 3 times daily daily. Cardizem has been discontinued and beta-isaías increased Heart rate remains around 90s (3) Decubitus ulcer of sacral area: Plan: Foul-smelling, unstageable. General surgery consulted. Wound nurse consulted. Turn every 2 and keep him off this area. Status post surgical debridement of the sacral wound Continue with wound care management and possible placement of wound VAC Wound culture is growing Proteus mirabilis and the sensitivities are noted Blood culture have been negative Has stage IV sacral decubitis. Continue with ceftriaxone and doxycycline. Clean and dress wound as advised by the wound care nurse-keep the wound clean and dry (4) Ureteral calculus, right: Plan: Appreciate urology input. Would consider adding Flomax once he is more hemodynamically stable and resuscitated from a sepsis standpoint. Appreciate urology input and recommendation Has asymptomatic candiduria urea-no antifungal is required now Will need oral Diflucan if he goes for any urological procedure for a few days prior and after the procedure Management will be as per the recommendation from the urologist (5) Post-operative state: Plan: Underwent left trochanteric femoral nail of left hip fracture by Dr. Woo on 03/29/2021. He should be partial weightbearing for 6 weeks postop. PT/OT to assess prior to returning to [facility]. Continue pain control efforts. (6) Diabetes mellitus, type 2: Plan: Hold home oral medications. Continue with basal bolus insulin. . (7) Ischemic cardiomyopathy: Plan: Chronic, stable. Patient is euvolemic to dry on exam and no evidence of acute coronary syndrome. Appreciate cardiology input and recommendation Denies any cardiac symptoms (8) Coronary artery disease: Plan: Chronic, stable, continue current medical management No acute cardiac symptoms (9) Chronic kidney disease stage 3: Plan: Creatinine is at baseline 1.1 (10) DVT prophylaxis: Plan: Continue with daily Coumadin. INR pending today. Plan: Has a bed in [facility] Can be [facility] to [facility] once he is medically stable. Likely be discharged tomorrow Admission and Anticipated Discharge Date Admission Date: April 15, 2021 Subjective 04/16/2021 The patient was seen and examined in ICU He remains very weak and lethargic and has moderate shortness of breath at rest Denies any significant pain 04/17/2021 The patient was seen and examined in ICU Still has moderate shortness of breath at rest but feels a little better Pain seems to be under control and denies any fever and/or chills 04/18/2021 The patient was seen and examined in ICU He has been stable with decreasing shortness of breath at rest No fever and no chills 04/19/2021 The patient was seen and examined in ICU He has been feeling much better today and denies any significant symptoms Minimally shortness of breath at rest and denies any fever and no chills 04/20/2021 The patient was seen and examined in ICU He has been feeling a little bit better today Denies any significant symptoms No fever and no chills 04/23/2021 The patient was seen and examined in ICU He has been much better but remains generally weak Denies any fever and/or chills Review of Systems Review of Systems: All systems reviewed and are unremarkable except as noted below Cardiovascular: Additional Comments: Minimal shortness of breath at rest Integumentary: Has stage IV sacral decubitus Physical Exam Physical Exam: Lying in bed comfortably Constitutional: well developed, well nourished, + ill appearing and + obese Eyes: PERRL, conjunctivae normal, anicteric sclerae ENMT: external ear and nose normal, oropharynx normal Neck: trachea midline, no thyromegaly Respiratory: + respiratory distress and + labored breathing Auscultation: + diminished lung sounds, + crackles (Bilaterally) and + rales Cardiovascular: Rate/Rhythm: regular rate, regular rhythm and + tachycardic Heart Sounds: normal S1 and normal S2 Extremities: + edema (Trace edema bilaterally) Gastrointestinal (Abdomen): Inspection/Auscultation: abdomen not distended Percussion/Palpation: abdomen soft; abdomen nontender Musculoskeletal: No acute arthritis in any joint Skin: Please see the picture of the sacral wound to have a clear understanding about the sacral decubitus Results & Data Results & Data ([facility]) Vital Signs (Past 12 Hours) Vital Signs Temp Pulse Pulse Resp BP BP Pulse Ox 04/23/21 12:06 36.4 C L 96 H 20 101/58 L 96 04/23/21 10:00 106 H 16 04/23/21 09:00 117 H 24 04/23/21 08:00 36.8 C 133 H 18 113/65 96 04/23/21 07:00 112 H 28 H 04/23/21 05:37 36.7 C 110 H 16 135/60 93 04/23/21 02:17 36.7 C 115 H 19 126/79 93 Medications Administered Current Inpatient Medications Acetaminophen (Acetaminophen 325 Mg Tab) 325 mg PO Q6H PRN PRN Reason: Pain or Fever Stop: 05/17/21 23:16 Last Admin: 04/20/21 08:36 Dose: 325 mg Documented by: Acetaminophen (Acetaminophen 325 Mg Tab) 650 mg PO Q8 ANNA Stop: 05/18/21 05:59 Last Admin: 04/23/21 06:36 Dose: Not Given Documented by: Allopurinol (Allopurinol 300 Mg Tab) 300 mg PO HS ANNA Stop: 05/16/21 20:59 Last Admin: 04/22/21 21:24 Dose: 300 mg Documented by: Aspirin (Aspirin 325 Mg Ectab) 325 mg PO HS ANNA Stop: 05/16/21 20:59 Last Admin: 04/22/21 21:25 Dose: 325 mg Documented by: Dextrose (Dextrose 50% 50 Ml Syringe) 25 - 50 ml IV UD PRN; Protocol PRN Reason: Hypoglycemia Protocol Stop: 05/16/21 05:37 Diclofenac Sodium (Diclofenac Sod 1% Gel 100 Gm Tube) 2 gm EXT QID ANNA Stop: 05/20/21 12:59 Last Admin: 04/23/21 12:18 Dose: 2 gm Documented by: Furosemide (Furosemide 20 Mg Tab) 20 mg PO QAM ANNA Stop: 05/24/21 08:59 Glucagon (Glucagon For Inj 1 Mg Vial) 1 mg SQ UD PRN; Protocol PRN Reason: Hypoglycemia Protocol Stop: 05/16/21 05:37 Glucose (Glucose 10 Tabs/Tube) 4 - 8 tabs PO UD PRN; Protocol PRN Reason: Hypoglycemia Protocol Stop: 05/16/21 05:37 Glucose (Glucose 40% Gel 15 Gm Tube) 15 - 30 gm PO UD PRN; Protocol PRN Reason: Hypoglycemia Protocol Stop: 05/16/21 05:37 Sodium Chloride (Nss 1000ml) 1,000 mls @ 60 mls/hr IV .[id number] ANNA Stop: 05/16/21 05:29 Last Infusion: 04/17/21 04:43 Dose: Infused Documented by: Insulin Aspart (Insulin Aspart 100 Units/Ml 3 Ml Pen) 0 units SC ACHS ANNA Stop: 05/16/21 07:29 Last Admin: 04/23/21 12:17 Dose: 5 units Documented by: Insulin Glargine (Insulin Glargine Solostar 100 Units/Ml 3 Ml Pen) 5 units SC DAILY ANNA Stop: 05/19/21 08:59 Last Admin: 04/23/21 08:31 Dose: 5 units Documented by: Metoprolol Tartrate (Metoprolol Tartrate 25 Mg Tab) 12.5 mg PO TID ANNA Stop: 05/22/21 13:59 Last Admin: 04/23/21 08:25 Dose: 12.5 mg Documented by: Miscellaneous (Carbohydrates For Hypoglycemia ) 15 - 30 gm PO UD PRN PRN Reason: Hypoglycemia Protocol Stop: 05/16/21 05:37 Montelukast Sodium (Montelukast Sodium 10 Mg Tablet) 10 mg PO HS [facility] Stop: 05/16/21 20:59 Last Admin: 04/22/21 21:28 Dose: 10 mg Documented by: Morphine Sulfate (Morphine Sulfate 4 Mg/Ml 1 Ml Carp\Vial) 4 mg IV Q4H PRN PRN Reason: severe breakthrough pain Stop: 04/30/21 05:36 Last Admin: 04/23/21 09:13 Dose: 4 mg Documented by: Multivitamins (Multivitamin Tab) 1 tab PO QAM [facility] Stop: 05/16/21 08:59 Last Admin: 04/23/21 08:25 Dose: 1 tab Documented by: Ondansetron HCl (Ondansetron Inj 2 Mg/Ml 2 Ml Vial) 4 mg IV Q6H PRN PRN Reason: Nausea Stop: 05/16/21 01:00 Oxycodone HCl (Oxycodone Hcl Ir 5 Mg Tab (Immediate Release)) 5 mg PO Q4H PRN PRN Reason: Pain Stop: 05/07/21 02:40 Last Admin: 04/23/21 08:44 Dose: 5 mg Documented by: Polyethylene Glycol (Polyethylene (Miralax) 17 Gm Pack) 17 gm PO DAILY PRN PRN Reason: Constipation Stop: 05/16/21 01:00 Potassium Chloride (Potassium Chloride Crtab 20 Meq Tabcr) 20 meq PO DAILY [facility] Stop: 05/16/21 08:59 Last Admin: 04/23/21 08:30 Dose: 20 meq Documented by: Primidone (Primidone 250 Mg Tab) 500 mg PO HS [facility] Stop: 05/16/21 20:59 Last Admin: 04/22/21 21:29 Dose: 500 mg Documented by: Senna/Docusate Sodium (Docusate Sodium/Senna 50/8.6mg Tab) 1 tab PO BID [facility] Stop: 05/16/21 08:59 Last Admin: 04/23/21 08:30 Dose: 1 tab Documented by: Warfarin Sodium (Warfarin Sod 5 Mg Tab) 5 mg PO DAILY@1600 [facility] Stop: 05/16/21 15:59 Last Admin: 04/22/21 15:36 Dose: 5 mg Documented by: (1) Decubitus ulcer of sacral area Pressure injury stage: unstageable Qualified Code(s): L89.150 - Pressure ulcer of sacral region, unstageable
[2021-04-23] MEDS: WARFARIN SOD 5 MG TAB PO SCH (17:09)
[2021-04-23] MEDS: allopurinoL 300 MG TAB PO SCH (21:32)
[2021-04-23] MEDS: ASPIRIN 325 MG ECTAB PO SCH (21:32)
[2021-04-23] MEDS: MONTELUKAST SODIUM 10 MG TABLET PO SCH (21:34)
[2021-04-23] MEDS: PRIMIDONE 250 MG TAB PO SCH (21:35)
[2021-04-24] MEDS: DOCUSATE SODIUM/SENNA 50/8.6MG TAB PO SCH ×3 (00:47→21:56)
[2021-04-24 05:50] LABS: Basophils # (auto) 0.02 K/uL (0-0.2); Basophils % (auto) 0.4 %; Eosinophils # (auto) 0.23 K/uL (0-0.5); Hematocrit (blood only) 30.6 % (42-52); Hemoglobin 9.6 g/dL (14.0-18.0); Immature Granulocytes # (auto) 0.02 K/uL (0.00-0.02); Immature Granulocytes % (auto) 0.4 %; Lymphocytes # (auto) 0.78 K/uL (1.2-3.4); Lymphocytes % (auto) 16.9 %; Mean Corpuscular Hemoglobin 30.1 pg (25-34); Mean Corpuscular Hgb Conc 31.4 g/dL (32-36); Mean Corpuscular Volume 95.9 fL (80-100); Mean Platelet Volume 10.3 fL (7.4-10.4); Monocytes # (auto) 0.59 K/uL (0.11-0.59); Monocytes % (auto) 12.8 %; Neutrophils # (auto) 2.98 K/uL (1.4-6.5); Neutrophils % (auto) 64.5 %; Platelet Count 153 K/uL (130-400); RDW Coefficient of Variation 16.8 % (11.5-14.5); RDW Standard Deviation 58.5 fL (36.4-46.3); Red Blood Count 3.19 M/uL (4.7-6.1); White Blood Count 4.62 K/uL (4.8-10.8)
[2021-04-24 06:15] LABS: BUN Creatinine Ratio 17.9 (10-20); Calcium 8.6 mg/dl (8.5-10.1); Creatinine Clr Calc Pharmacy 90.7 ml/min; Est GFR (African American) 101.7 ml/min; Est GFR (Non-African American) 87.7 ml/min; Magnesium 1.6 mg/dl (1.8-2.4); Phosphorus 2.6 mg/dl (2.5-4.9); Potassium 4.1 mmol/L (3.5-5.1)
[2021-04-24] MEDS: oxyCODONE HCL IR 5 MG TAB (IMMEDIATE RELEASE) PO PRN ×3 (06:42→21:49)
[2021-04-24] MEDS: ACETAMINOPHEN 325 MG TAB PO SCH ×3 (06:43→21:54)
[2021-04-24] MEDS: DICLOFENAC SOD 1% GEL 100 GM TUBE EXT SCH ×4 (08:01→21:50)
[2021-04-24] MEDS: MULTIVITAMIN TAB PO SCH (08:01)
[2021-04-24] MEDS: METOPROLOL TARTRATE 25 MG TAB PO SCH (08:02)
[2021-04-24] MEDS: FUROSEMIDE 20 MG TAB PO SCH (08:04)
[2021-04-24] MEDS: POTASSIUM CHLORIDE CRTAB 20 MEQ TABCR PO SCH (08:11)
[2021-04-24] MEDS: INSULIN ASPART 100 UNITS/ML 3 ML PEN SC SCH ×4 (08:20→21:50)
[2021-04-24] MEDS ORDERED: METOPROLOL SUCC 25MG EXT REL TAB PO ONE (10:30)
[2021-04-24] MEDS: INSULIN GLARGINE SOLOSTAR 100 UNITS/ML 3 ML PEN SC SCH (10:39)
[2021-04-24] MEDS: METOPROLOL SUCC 25MG EXT REL TAB PO SCH ×2 (11:15→21:52)
--- NOTE | 2021-04-24 14:41 | Hospitalist Progress Note ---
Date of Service April 24, 2021 Assessment & Plan (1) Sepsis: Plan: Sepsis secondary to worsening/new sacral decubitus ulcer that is unstageable and foul-smelling. S/P Debridement of sacral decubitus ulcer 04/16/21 (Significant necrotic and gangrenous tissue at the surface of the ulcer. This was debrided. No bone was exposed. The tissue was debrided back to healthy bleeding tissue). Most likely source of his sepsis. He also has a right ureteral stone that is obstructing the ureter with persistent hydronephrosis and hydroureter. Wound culture is growing Proteus Mirabella's sensitive to cephalosporins, floxacillin and sulfa Blood cultures have been negative. He remains on ceftriaxone and doxycycline. As per the OR report, gangrenous/necrotic tissue was removed. Tissue was debrided back to healthy tissue. Likely does not need prolonged antibiotic. Given extensive wound, will need few weeks of antibiotic therapy Antibiotics will be continued for a total of 2 weeks intravenously. Bronchiectasis Acute hypoxic respiratory failure - resolved CT scan did show bilateral basal bronchiectasis without any change compared with prior. Doubt any pneumonia secondary to bronchiectasis. MRSA screen was positive but blood cultures have been negative Currently on room air and saturating well Hypomagnesemia, hypokalemia and hypophosphatemia - resolved We will recheck tomorrow Remains stable (2) PAF (paroxysmal atrial fibrillation): Plan: Appreciate cardiology input. Started IV Lasix 20 mg today. Patient remains tachycardic. Remains on diltiazem infusion. Continue metoprolol 12.5 mg 3 times daily daily. Cardizem has been discontinued and beta-isaías increased Heart rate remains high at more than 100 Discussed with the brass and wind instrument repairer and the medications are changed to Toprol-XL 25 mg twice daily (3) Decubitus ulcer of sacral area: Plan: Foul-smelling, unstageable. General surgery consulted. Wound nurse consulted. Turn every 2 and keep him off this area. Status post surgical debridement of the sacral wound Continue with wound care management and possible placement of wound VAC Wound culture is growing Proteus mirabilis and the sensitivities are noted Blood culture have been negative Has stage IV sacral decubitis. Continue with ceftriaxone and doxycycline. Clean and dress wound as advised by the wound care nurse-keep the wound clean and dry Please see the picture of the sacral decubitus to have a detailed idea about the ulcer itself (4) Ureteral calculus, right: Plan: Appreciate urology input. Would consider adding Flomax once he is more hemodynamically stable and resuscitated from a sepsis standpoint. Appreciate urology input and recommendation Has asymptomatic candiduria urea-no antifungal is required now Will need oral Diflucan if he goes for any urological procedure for a few days prior and after the procedure Management will be as per the recommendation from the urologist (5) Post-operative state: Plan: Underwent left trochanteric femoral nail of left hip fracture by Dr. Woo on 03/29/2021. He should be partial weightbearing for 6 weeks postop. PT/OT to assess prior to returning to [facility]. Continue pain control efforts. (6) Diabetes mellitus, type 2: Plan: Hold home oral medications. Continue with basal bolus insulin. . (7) Ischemic cardiomyopathy: Plan: Chronic, stable. Patient is euvolemic to dry on exam and no evidence of acute coronary syndrome. Appreciate cardiology input and recommendation Denies any cardiac symptoms (8) Coronary artery disease: Plan: Chronic, stable, continue current medical management No acute cardiac symptoms (9) Chronic kidney disease stage 3: Plan: Creatinine is at baseline 1.1 (10) DVT prophylaxis: Plan: Continue with daily Coumadin. INR is 3.1 on 04/23/2021 Plan: Has a bed in [facility] Can be discharged to [facility] once he is medically stable. Likely be discharged tomorrow Admission and Anticipated Discharge Date Admission Date: April 15, 2021 Subjective 04/16/2021 The patient was seen and examined in ICU He remains very weak and lethargic and has moderate shortness of breath at rest Denies any significant pain 04/17/2021 The patient was seen and examined in ICU Still has moderate shortness of breath at rest but feels a little better Pain seems to be under control and denies any fever and/or chills 04/18/2021 The patient was seen and examined in ICU He has been stable with decreasing shortness of breath at rest No fever and no chills 04/19/2021 The patient was seen and examined in ICU He has been feeling much better today and denies any significant symptoms Minimally shortness of breath at rest and denies any fever and no chills 04/20/2021 The patient was seen and examined in ICU He has been feeling a little bit better today Denies any significant symptoms No fever and no chills 04/23/2021 The patient was seen and examined in ICU He has been much better but remains generally weak Denies any fever and/or chills 04/24/2021 The patient was seen and examined in ICU He remains very weak and lethargic Heart rate remains elevated more than 100 Review of Systems Review of Systems: All systems reviewed and are unremarkable except as noted below Cardiovascular: Additional Comments: Minimal shortness of breath at rest Integumentary: Has stage IV sacral decubitus Physical Exam Physical Exam: Lying in bed with minimal shortness of breath at rest Constitutional: well developed, well nourished, + ill appearing and + obese Eyes: PERRL, conjunctivae normal, anicteric sclerae ENMT: external ear and nose normal, oropharynx normal Neck: trachea midline, no thyromegaly Respiratory: + respiratory distress and + labored breathing Auscultation: + diminished lung sounds, + crackles (Bilaterally) and + rales Cardiovascular: Rate/Rhythm: regular rate, regular rhythm and + tachycardic Heart Sounds: normal S1 and normal S2 Extremities: + edema (Trace edema bilaterally) Gastrointestinal (Abdomen): Inspection/Auscultation: abdomen not distended Percussion/Palpation: abdomen soft; abdomen nontender Musculoskeletal: No acute arthritis in any joint Skin: Has generalized small bruising Neurologic: Alert, awake and oriented x3. Generally very weak Psychiatric: A+Ox3, euthymic affect Results & Data Results & Data ([facility]) Vital Signs (Past 12 Hours) Vital Signs Temp Pulse Resp BP Pulse Ox 04/24/21 11:31 36.8 C 115 H 16 102/54 L 93 04/24/21 08:00 36.7 C 120 H 16 124/69 93 04/24/21 04:48 36.6 C 106 H 18 114/71 93 Laboratory Results Short CBC 04/24/21 Range/Units 05:41 WBC 4.62 L (4.8-10.8) K/uL Hgb 9.6 L (14.0-18.0) g/dL Hct 30.6 L (42-52) % Plt Count 153 (130-400) K/uL BMP 04/24/21 05:41 Sodium 136 Potassium 4.1 Chloride 104 Carbon Dioxide 30 BUN 15 Creatinine 0.82 Glucose 147 H Calcium 8.6 Medications Administered Current Inpatient Medications Acetaminophen (Acetaminophen 325 Mg Tab) 325 mg PO Q6H PRN PRN Reason: Pain or Fever Stop: 05/17/21 23:16 Last Admin: 04/20/21 08:36 Dose: 325 mg Documented by: Acetaminophen (Acetaminophen 325 Mg Tab) 650 mg PO Q8 ANNA Stop: 05/18/21 05:59 Last Admin: 04/24/21 06:43 Dose: 650 mg Documented by: Allopurinol (Allopurinol 300 Mg Tab) 300 mg PO HS [facility] Stop: 05/16/21 20:59 Last Admin: 04/23/21 21:32 Dose: 300 mg Documented by: Aspirin (Aspirin 325 Mg Ectab) 325 mg PO HS [facility] Stop: 05/16/21 20:59 Last Admin: 04/23/21 21:32 Dose: 325 mg Documented by: Dextrose (Dextrose 50% 50 Ml Syringe) 25 - 50 ml IV UD PRN; Protocol PRN Reason: Hypoglycemia Protocol Stop: 05/16/21 05:37 Diclofenac Sodium (Diclofenac Sod 1% Gel 100 Gm Tube) 2 gm EXT QID [facility] Stop: 05/20/21 12:59 Last Admin: 04/24/21 12:40 Dose: 2 gm Documented by: Furosemide (Furosemide 20 Mg Tab) 20 mg PO QAM [facility] Stop: 05/24/21 08:59 Last Admin: 04/24/21 08:04 Dose: 20 mg Documented by: Glucagon (Glucagon For Inj 1 Mg Vial) 1 mg SQ UD PRN; Protocol PRN Reason: Hypoglycemia Protocol Stop: 05/16/21 05:37 Glucose (Glucose 10 Tabs/Tube) 4 - 8 tabs PO UD PRN; Protocol PRN Reason: Hypoglycemia Protocol Stop: 05/16/21 05:37 Glucose (Glucose 40% Gel 15 Gm Tube) 15 - 30 gm PO UD PRN; Protocol PRN Reason: Hypoglycemia Protocol Stop: 05/16/21 05:37 Sodium Chloride (Nss 1000ml) 1,000 mls @ 60 mls/hr IV .[id number] [facility] Stop: 05/16/21 05:29 Last Infusion: 04/17/21 04:43 Dose: Infused Documented by: Insulin Aspart (Insulin Aspart 100 Units/Ml 3 Ml Pen) 0 units SC ACHS [facility] Stop: 05/16/21 07:29 Last Admin: 04/24/21 12:39 Dose: 3 units Documented by: Insulin Glargine (Insulin Glargine Solostar 100 Units/Ml 3 Ml Pen) 5 units SC DAILY [facility] Stop: 05/19/21 08:59 Last Admin: 04/24/21 10:39 Dose: 5 units Documented by: Metoprolol Succinate (Metoprolol Succ 25mg Ext Rel Tab) 25 mg PO BID ANNA Stop: 05/24/21 10:29 Last Admin: 04/24/21 11:15 Dose: 25 mg Documented by: Miscellaneous (Carbohydrates For Hypoglycemia ) 15 - 30 gm PO UD PRN PRN Reason: Hypoglycemia Protocol Stop: 05/16/21 05:37 Montelukast Sodium (Montelukast Sodium 10 Mg Tablet) 10 mg PO HS [facility] Stop: 05/16/21 20:59 Last Admin: 04/23/21 21:34 Dose: 10 mg Documented by: Morphine Sulfate (Morphine Sulfate 4 Mg/Ml 1 Ml Carp\Vial) 4 mg IV Q4H PRN PRN Reason: severe breakthrough pain Stop: 04/30/21 05:36 Last Admin: 04/23/21 09:13 Dose: 4 mg Documented by: Multivitamins (Multivitamin Tab) 1 tab PO QAM [facility] Stop: 05/16/21 08:59 Last Admin: 04/24/21 08:01 Dose: 1 tab Documented by: Ondansetron HCl (Ondansetron Inj 2 Mg/Ml 2 Ml Vial) 4 mg IV Q6H PRN PRN Reason: Nausea Stop: 05/16/21 01:00 Oxycodone HCl (Oxycodone Hcl Ir 5 Mg Tab (Immediate Release)) 5 mg PO Q4H PRN PRN Reason: Pain Stop: 05/07/21 02:40 Last Admin: 04/24/21 12:42 Dose: 5 mg Documented by: Polyethylene Glycol (Polyethylene (Miralax) 17 Gm Pack) 17 gm PO DAILY PRN PRN Reason: Constipation Stop: 05/16/21 01:00 Potassium Chloride (Potassium Chloride Crtab 20 Meq Tabcr) 20 meq PO DAILY ANNA Stop: 05/16/21 08:59 Last Admin: 04/24/21 08:11 Dose: 20 meq Documented by: Primidone (Primidone 250 Mg Tab) 500 mg PO HS [facility] Stop: 05/16/21 20:59 Last Admin: 04/23/21 21:35 Dose: 500 mg Documented by: Senna/Docusate Sodium (Docusate Sodium/Senna 50/8.6mg Tab) 1 tab PO BID [facility] Stop: 05/16/21 08:59 Last Admin: 04/24/21 08:09 Dose: 1 tab Documented by: Warfarin Sodium (Warfarin Sod 5 Mg Tab) 5 mg PO DAILY@1600 [facility] Stop: 05/16/21 15:59 Last Admin: 04/23/21 17:09 Dose: 5 mg Documented by: (1) Decubitus ulcer of sacral area Pressure injury stage: unstageable Qualified Code(s): L89.150 - Pressure ulcer of sacral region, unstageable
[2021-04-24] MEDS: WARFARIN SOD 5 MG TAB PO SCH (15:39)
[2021-04-24] MEDS: allopurinoL 300 MG TAB PO SCH (21:49)
[2021-04-24] MEDS: ASPIRIN 325 MG ECTAB PO SCH (21:50)
[2021-04-24] MEDS: MONTELUKAST SODIUM 10 MG TABLET PO SCH (21:53)
[2021-04-24] MEDS: PRIMIDONE 250 MG TAB PO SCH (21:53)
[2021-04-24] MEDS: MoRPHine SULFATE 4 MG/ML 1 ML CARP\\VIAL IV PRN (22:22)
[2021-04-24] MEDS ORDERED: oxyCODONE HCL IR 5 MG TAB (IMMEDIATE RELEASE) PO STA (22:43)
[2021-04-24] MEDS ORDERED: KETOROLAC TROMETHAMINE 15 MG/ML VIAL IV ONE (22:44)
[2021-04-25 00:08] LABS: Basophils # (auto) 0.02 K/uL (0-0.2); Basophils % (auto) 0.3 %; Eosinophils # (auto) 0.21 K/uL (0-0.5); Eosinophils % (auto) 3.4 %; Hematocrit (blood only) 33.1 % (42-52); Hemoglobin 10.5 g/dL (14.0-18.0); Immature Granulocytes # (auto) 0.02 K/uL (0.00-0.02); Immature Granulocytes % (auto) 0.3 %; Lymphocytes # (auto) 0.92 K/uL (1.2-3.4); Lymphocytes % (auto) 14.7 %; Mean Corpuscular Hemoglobin 30.3 pg (25-34); Mean Corpuscular Hgb Conc 31.7 g/dL (32-36); Mean Corpuscular Volume 95.4 fL (80-100); Mean Platelet Volume 9.7 fL (7.4-10.4); Monocytes % (auto) 9.6 %; Neutrophils # (auto) 4.49 K/uL (1.4-6.5); Neutrophils % (auto) 71.7 %; Platelet Count 156 K/uL (130-400); RDW Coefficient of Variation 16.9 % (11.5-14.5); RDW Standard Deviation 57.8 fL (36.4-46.3); Red Blood Count 3.47 M/uL (4.7-6.1); White Blood Count 6.26 K/uL (4.8-10.8)
[2021-04-25 00:29] LABS: Prothrombin Time 49.9 Seconds (9.0-12.0)
[2021-04-25 00:39] LABS: INR 5.6 (0.9-1.1)
[2021-04-25] MEDS: ACETAMINOPHEN 325 MG TAB PO SCH ×3 (05:50→21:07)
[2021-04-25 06:15] LABS: Prothrombin Time 52.2 Seconds (9.0-12.0)
[2021-04-25 06:22] LABS: BUN Creatinine Ratio 18.4 (10-20); Calcium 8.7 mg/dl (8.5-10.1); Creatinine Clr Calc Pharmacy 90.7 ml/min; Est GFR (African American) 101.7 ml/min; Est GFR (Non-African American) 87.7 ml/min; Magnesium 1.7 mg/dl (1.8-2.4); Potassium 3.9 mmol/L (3.5-5.1)
[2021-04-25 06:27] LABS: INR 5.9 (0.9-1.1)
[2021-04-25] MEDS ORDERED: PHYTONADIONE 5 MG TAB PO SCH (07:15)
--- NOTE | 2021-04-25 08:09 | CT Scan Report ---
CT SCAN OF THE ABDOMEN AND PELVIS WITHOUT IV CONTRAST CLINICAL HISTORY: Low back pain. COMPARISON STUDY: Abdominal CT dated 04/15/2021. TECHNIQUE: CT scan of the abdomen and pelvis is performed from the lung bases to the proximal femora. Images are reviewed in the axial, sagittal, and coronal planes. IV contrast was not administered for this examination. A dose lowering technique was utilized adhering to the principles of ALARA. The e xamination Is compromised by motion artifact. CT DOSE: 847.24 mGy.cm FINDINGS: Lung bases: The heart is mildly enlarged noting trace pericardial effusion. Pacemaker leads are noted . The coronary arteries are densely calcified. There is a tiny hiatal hernia. There are small right a nd trace left pleural effusions. Emphysema is suspected. Mild bronchiectasis is noted at both lung ba ses with fluid/debris within the lower lobe airways. Fibrotic change is noted in the lower lobes. Sca ttered bibasilar pulmonary nodules measure up to 4 mm. Gynecomastia is noted. Liver: The unenhanced liver is cirrhotic in morphology and heterogeneous in attenuation. There is nod ularity of the surface contour and hypertrophy of the left lobe. There is no intrahepatic biliary idania kathy dilatation. Gallbladder: Surgically absent noting clips in the gallbladder fossa. Spleen: Normal in size and attenuation. Pancreas: The unenhanced pancreas is atrophic and grossly unremarkable. Adrenal glands: Unremarkable. Kidneys: The unenhanced kidneys are atrophic and without hydronephrosis. There are numerous stones/fr agments in the distal right ureter located just above the vesicoureteral junction. These measure up t o 10 mm and cause only mild right-sided hydroureter. No additional calculi are identified in either k idney. There is no evidence of contour deforming renal mass lesion. Nonspecific perinephric haziness and nodularity is unchanged from previous. Abdominal vasculature: The abdominal aorta is normal in course and caliber noting advanced atheroscle rotic calcification. Bowel: There is no bowel obstruction. Residual enteric contrast is noted in the colon. There is mild colonic diverticulosis without CT evidence of acute diverticulitis. The appendix is well-visualized and normal. Peritoneum: There is no intraperitoneal free air or abdominal ascites. Lymphadenopathy: Shotty retroperitoneal lymph nodes are unchanged. These are not pathologically enlar ged by size criteria. Pelvic viscera: The bladder wall appears thickened. The bladder is decompressed around a Cisneros cathet er and not well evaluated. The prostate gland is enlarged and heterogeneous. There is a small fat-con taining right inguinal hernia. Skeletal structures: The skeletal structures are osteopenic. There are numerous chronic right-sided r ib fractures. Mild lumbosacral spondylosis is observed. No lytic or blastic lesions are seen. A sacra l decubitus ulcer is again noted. A small pocket of gas and fluid superficial to the sacrum on image #402 measures 2.7 x 0.9 cm. There is no bony erosion or periostitis and the underlying sacrum. There is a subacute appearing fracture of the left proximal femur with intertrochanteric and intramedullary nails in place. IMPRESSION: 1. There are numerous stones/fragments in the distal right ureter just above the vesicoureteral junct ion. These measure up to 10 mm and cause mild right hydroureter. There is no hydronephrosis. 2. No additional calculi are seen in either kidney. 3. There is a sacral decubitus ulceration. A 2.7 cm pocket of gas and fluid just superficial to the s acrum may resent a component of the ulceration or a small abscess. 4. The bladder wall appears circumferentially thickened. Correlate with urinalysis. 5. There is a subacute appearing fracture of the left proximal femur status post surgical fixation. 6. Cirrhotic liver morphology. 7. Small right and trace left pleural effusions. 8. Fibrotic change is seen at both lung bases as detailed above. 9. Perinephric haziness and nodularity is pathologically indeterminant and unchanged. 10. Additional findings as above. ACT 112: Negative or not required by law. Electronically signed by: John Mackay M.D. 04/25/2021 8:08 AM
[2021-04-25] MEDS: INSULIN ASPART 100 UNITS/ML 3 ML PEN SC SCH ×4 (08:38→21:12)
[2021-04-25] MEDS: oxyCODONE HCL IR 5 MG TAB (IMMEDIATE RELEASE) PO PRN ×2 (08:44→21:07)
[2021-04-25] MEDS: POTASSIUM CHLORIDE CRTAB 20 MEQ TABCR PO SCH (08:45)
[2021-04-25] MEDS: FUROSEMIDE 20 MG TAB PO SCH (08:45)
[2021-04-25] MEDS: MULTIVITAMIN TAB PO SCH (08:45)
[2021-04-25] MEDS: DOCUSATE SODIUM/SENNA 50/8.6MG TAB PO SCH ×2 (08:45→21:09)
[2021-04-25] MEDS: INSULIN GLARGINE SOLOSTAR 100 UNITS/ML 3 ML PEN SC SCH (08:46)
[2021-04-25] MEDS: DICLOFENAC SOD 1% GEL 100 GM TUBE EXT SCH ×4 (08:46→21:06)
[2021-04-25] MEDS: METOPROLOL SUCC 25MG EXT REL TAB PO SCH (08:46)
[2021-04-25] MEDS ORDERED: METOPROLOL SUCC 50MG EXT REL TAB PO SCH (09:00)
[2021-04-25] MEDS ORDERED: METOPROLOL SUCC 25MG EXT REL TAB PO STA (12:48)
--- NOTE | 2021-04-25 13:01 | Hospitalist Progress Note ---
Date of Service April 25, 2021 Assessment & Plan (1) Sepsis: Plan: Sepsis secondary to worsening/new sacral decubitus ulcer that is unstageable and foul-smelling. S/P Debridement of sacral decubitus ulcer 04/16/21 (Significant necrotic and gangrenous tissue at the surface of the ulcer. This was debrided. No bone was exposed. The tissue was debrided back to healthy bleeding tissue). Most likely source of his sepsis. He also has a right ureteral stone that is obstructing the ureter with persistent hydronephrosis and hydroureter. Wound culture is growing Proteus Mirabella's sensitive to cephalosporins, floxacillin and sulfa Blood cultures have been negative. He remains on ceftriaxone and doxycycline. As per the OR report, gangrenous/necrotic tissue was removed. Tissue was debrided back to healthy tissue. Likely does not need prolonged antibiotic. Given extensive wound, will need few weeks of antibiotic therapy Repeat CT of the abdomen and pelvis showed 2.7 cm pocket of gas and fluid just superficial to the sacrum may represent a component of the ulceration or a small abscess Will advise surgery team reevaluation Bronchiectasis Acute hypoxic respiratory failure - resolved CT scan did show bilateral basal bronchiectasis without any change compared with prior. Doubt any pneumonia secondary to bronchiectasis. MRSA screen was positive but blood cultures have been negative Currently on room air and saturating well Hypomagnesemia, hypokalemia and hypophosphatemia - resolved We will recheck tomorrow Remains stable (2) PAF (paroxysmal atrial fibrillation): Plan: Appreciate cardiology input. Started IV Lasix 20 mg today. Patient remains tachycardic. Remains on diltiazem infusion. Continue metoprolol 12.5 mg 3 times daily daily. Cardizem has been discontinued and beta-isaías increased Heart rate remains high at more than 100 Discussed with the drop worker and the medications are changed to Toprol-XL 25 mg twice daily Denies any cardiac symptoms Remains tachycardic and Toprol-XL will be increased to 50 mg twice daily (3) Decubitus ulcer of sacral area: Plan: Foul-smelling, unstageable. General surgery consulted. Wound nurse consulted. Turn every 2 and keep him off this area. Status post surgical debridement of the sacral wound Continue with wound care management and possible placement of wound VAC Wound culture is growing Proteus mirabilis and the sensitivities are noted Blood culture have been negative Has stage IV sacral decubitis. Continue with ceftriaxone and doxycycline. Clean and dress wound as advised by the wound care nurse-keep the wound clean and dry Please see the picture of the sacral decubitus to have a detailed idea about the ulcer itself 2.7 cm pocket of gas and fluid just superficial to the sacrum may represent a co mponent of the ulceration or a small abscess Will advise surgery team reevaluation (4) Ureteral calculus, right: Plan: Appreciate urology input. Would consider adding Flomax once he is more hemodynamically stable and resuscitated from a sepsis standpoint. Appreciate urology input and recommendation Has asymptomatic candiduria urea-no antifungal is required now Will need oral Diflucan if he goes for any urological procedure for a few days prior and after the procedure Management will be as per the recommendation from the urologist Repeat CT scan of the abdomen and pelvis showed:- There are numerous stones/fragments in the distal right ureter just above the vesicoureteral junction. These measure up to 10 mm and cause mild right hydroureter. There is no hydronephrosis. Not having any urinary symptoms or pain (5) Post-operative state: Plan: Underwent left trochanteric femoral nail of left hip fracture by Dr. Woo on 03/29/2021. He should be partial weightbearing for 6 weeks postop. PT/OT to assess prior to returning to [facility]. Continue pain control efforts. (6) Diabetes mellitus, type 2: Plan: Hold home oral medications. Continue with basal bolus insulin. Continue with SSI (7) Ischemic cardiomyopathy: Plan: Chronic, stable. Patient is euvolemic to dry on exam and no evidence of acute coronary syndrome. Appreciate cardiology input and recommendation Denies any cardiac symptoms (8) Coronary artery disease: Plan: Chronic, stable, continue current medical management No acute cardiac symptoms (9) Chronic kidney disease stage 3: Plan: Creatinine is at baseline 1.1 (10) DVT prophylaxis: Plan: Continue with daily Coumadin. INR is 3.1 on 04/23/2021 INR is 5.9 as of 04/25/2021-Coumadin remains on hold We will recheck tomorrow Plan: Has a bed in [facility] Can be discharged to [facility] once he is medically stable. Remains generally weak but medically stable to be discharged to rehab facility. Surgery should reevaluate before discharge Admission and Anticipated Discharge Date Admission Date: April 15, 2021 Subjective 04/16/2021 The patient was seen and examined in ICU He remains very weak and lethargic and has moderate shortness of breath at rest Denies any significant pain 04/17/2021 The patient was seen and examined in ICU Still has moderate shortness of breath at rest but feels a little better Pain seems to be under control and denies any fever and/or chills 04/18/2021 The patient was seen and examined in ICU He has been stable with decreasing shortness of breath at rest No fever and no chills 04/19/2021 The patient was seen and examined in ICU He has been feeling much better today and denies any significant symptoms Minimally shortness of breath at rest and denies any fever and no chills 04/20/2021 The patient was seen and examined in ICU He has been feeling a little bit better today Denies any significant symptoms No fever and no chills 04/23/2021 The patient was seen and examined in ICU He has been much better but remains generally weak Denies any fever and/or chills 04/24/2021 The patient was seen and examined in ICU He remains very weak and lethargic Heart rate remains elevated more than 100 04/25/2021 The patient was seen and examined in ICU He remains weak and lethargic and denies any symptoms He has had some abdominal pain and underwent his CAT scan of the abdomen pelvis early this morning No fever and no chills, no nausea or vomiting Review of Systems Review of Systems: All systems reviewed and are unremarkable except as noted below Cardiovascular: Additional Comments: Minimal shortness of breath at rest Integumentary: Has stage IV sacral decubitus Physical Exam Physical Exam: Lying in bed with minimal shortness of breath at rest Constitutional: well developed, well nourished, + ill appearing and + obese Eyes: PERRL, conjunctivae normal, anicteric sclerae ENMT: external ear and nose normal, oropharynx normal Neck: trachea midline, no thyromegaly Respiratory: + respiratory distress and + labored breathing Auscultation: + diminished lung sounds, + crackles (Bilaterally) and + rales Cardiovascular: Rate/Rhythm: regular rate, regular rhythm and + tachycardic Heart Sounds: normal S1 and normal S2 Extremities: + edema (Trace edema bilaterally) Gastrointestinal (Abdomen): Inspection/Auscultation: abdomen not distended Percussion/Palpation: abdomen soft; abdomen nontender Musculoskeletal: No acute arthritis of the knee joint Neurologic: Alert, awake and oriented x3. Generally weak. Has been moving al l the limbs equally Psychiatric: A+Ox3, euthymic affect Results & Data Results & Data ([facility]) Vital Signs (Past 12 Hours) Vital Signs Temp Pulse Pulse Resp BP Pulse Ox 04/25/21 04:25 36.6 C 106 H 16 111/61 95 04/25/21 02:30 112 H 15 04/25/21 02:15 125 H 15 04/25/21 02:00 117 H 19 04/25/21 01:45 118 H 15 04/25/21 01:30 110 H 13 04/25/21 01:16 120 H 13 Laboratory Results Short CBC 04/24/21 Range/Units 23:55 WBC 6.26 (4.8-10.8) K/uL Hgb 10.5 L (14.0-18.0) g/dL Hct 33.1 L (42-52) % Plt Count 156 (130-400) K/uL BMP 04/25/21 05:27 Sodium 139 Potassium 3.9 Chloride 105 Carbon Dioxide 28 BUN 15 Creatinine 0.82 Glucose 175 H Calcium 8.7 Medications Administered Current Inpatient Medications Acetaminophen (Acetaminophen 325 Mg Tab) 325 mg PO Q6H PRN PRN Reason: Pain or Fever Stop: 05/17/21 23:16 Last Admin: 04/20/21 08:36 Dose: 325 mg Documented by: Acetaminophen (Acetaminophen 325 Mg Tab) 650 mg PO Q8 ANNA Stop: 05/18/21 05:59 Last Admin: 04/25/21 05:50 Dose: 650 mg Documented by: Allopurinol (Allopurinol 300 Mg Tab) 300 mg PO HS ANNA Stop: 05/16/21 20:59 Last Admin: 04/24/21 21:49 Dose: 300 mg Documented by: Aspirin (Aspirin 325 Mg Ectab) 325 mg PO HS ANNA Stop: 05/16/21 20:59 Last Admin: 04/24/21 21:50 Dose: 325 mg Documented by: Dextrose (Dextrose 50% 50 Ml Syringe) 25 - 50 ml IV UD PRN; Protocol PRN Reason: Hypoglycemia Protocol Stop: 05/16/21 05:37 Diclofenac Sodium (Diclofenac Sod 1% Gel 100 Gm Tube) 2 gm EXT QID ANNA Stop: 05/20/21 12:59 Last Admin: 04/25/21 12:06 Dose: 2 gm Documented by: Furosemide (Furosemide 20 Mg Tab) 20 mg PO QAM [facility] Stop: 05/24/21 08:59 Last Admin: 04/25/21 08:45 Dose: 20 mg Documented by: Glucagon (Glucagon For Inj 1 Mg Vial) 1 mg SQ UD PRN; Protocol PRN Reason: Hypoglycemia Protocol Stop: 05/16/21 05:37 Glucose (Glucose 10 Tabs/Tube) 4 - 8 tabs PO UD PRN; Protocol PRN Reason: Hypoglycemia Protocol Stop: 05/16/21 05:37 Glucose (Glucose 40% Gel 15 Gm Tube) 15 - 30 gm PO UD PRN; Protocol PRN Reason: Hypoglycemia Protocol Stop: 05/16/21 05:37 Sodium Chloride (Nss 1000ml) 1,000 mls @ 60 mls/hr IV .[id number] ANNA Stop: 05/16/21 05:29 Last Infusion: 04/17/21 04:43 Dose: Infused Documented by: Insulin Aspart (Insulin Aspart 100 Units/Ml 3 Ml Pen) 0 units SC ACHS ANNA Stop: 05/16/21 07:29 Last Admin: 04/25/21 12:06 Dose: 2 units Documented by: Insulin Glargine (Insulin Glargine Solostar 100 Units/Ml 3 Ml Pen) 5 units SC DAILY ANNA Stop: 05/19/21 08:59 Last Admin: 04/25/21 08:46 Dose: 5 units Documented by: Metoprolol Succinate (Metoprolol Succ 50mg Ext Rel Tab) 50 mg PO BID [facility] Stop: 05/25/21 20:59 Miscellaneous (Carbohydrates For Hypoglycemia ) 15 - 30 gm PO UD PRN PRN Reason: Hypoglycemia Protocol Stop: 05/16/21 05:37 Montelukast Sodium (Montelukast Sodium 10 Mg Tablet) 10 mg PO HS [facility] Stop: 05/16/21 20:59 Last Admin: 04/24/21 21:53 Dose: 10 mg Documented by: Morphine Sulfate (Morphine Sulfate 4 Mg/Ml 1 Ml Carp\Vial) 4 mg IV Q4H PRN PRN Reason: severe breakthrough pain Stop: 04/30/21 05:36 Last Admin: 04/24/21 22:22 Dose: 4 mg Documented by: Multivitamins (Multivitamin Tab) 1 tab PO QAM [facility] Stop: 05/16/21 08:59 Last Admin: 04/25/21 08:45 Dose: 1 tab Documented by: Ondansetron HCl (Ondansetron Inj 2 Mg/Ml 2 Ml Vial) 4 mg IV Q6H PRN PRN Reason: Nausea Stop: 05/16/21 01:00 Oxycodone HCl (Oxycodone Hcl Ir 5 Mg Tab (Immediate Release)) 5 - 10 mg PO QID PRN PRN Reason: Pain Stop: 05/08/21 22:42 Last Admin: 04/25/21 08:44 Dose: 10 mg Documented by: Polyethylene Glycol (Polyethylene (Miralax) 17 Gm Pack) 17 gm PO DAILY PRN PRN Reason: Constipation Stop: 05/16/21 01:00 Potassium Chloride (Potassium Chloride Crtab 20 Meq Tabcr) 20 meq PO DAILY ANNA Stop: 05/16/21 08:59 Last Admin: 04/25/21 08:45 Dose: 20 meq Documented by: Primidone (Primidone 250 Mg Tab) 500 mg PO HS [facility] Stop: 05/16/21 20:59 Last Admin: 04/24/21 21:53 Dose: 500 mg Documented by: Senna/Docusate Sodium (Docusate Sodium/Senna 50/8.6mg Tab) 1 tab PO BID ANNA Stop: 05/16/21 08:59 Last Admin: 04/25/21 08:45 Dose: 1 tab Documented by: Warfarin Sodium (Warfarin Sod 5 Mg Tab) 5 mg PO DAILY@1600 [facility] Stop: 05/16/21 15:59 Last Admin: 04/24/21 15:39 Dose: 5 mg Documented by: (1) Decubitus ulcer of sacral area Pressure injury stage: unstageable Qualified Code(s): L89.150 - Pressure ulcer of sacral region, unstageable
--- NOTE | 2021-04-25 15:19 | Surgery Progress Note ---
Date of Service April 25, 2021 Assessment & Plan (1) Decubitus ulcer of sacral area: Plan: no surgical indication for decubitus ulcer of sacral area, continue conservative treatment, will F/U, (2) Atrial fibrillation with rapid ventricular response: (3) Diastolic dysfunction: (4) History of pulmonary embolism: (5) Chronic left ventricular systolic heart failure: (6) Chronic kidney disease stage 3: (7) Coronary artery disease: Plan: s/p debridement no leukocytosis, afebrile wound with healthy granulation tissue present wound care nurse consulted for wound vac placement, orders placed will need wound care clinic follow-up our services signing off, please call with questions or concerns continue medical management Dr. Antonio has seen and examined pt, agrees with above Admission and Anticipated Discharge Date Admission Date: April 15, 2021 Subjective 04/16/2021 The patient was seen and examined in ICU He remains very weak and lethargic and has moderate shortness of breath at rest Denies any significant pain 04/17/2021 The patient was seen and examined in ICU Still has moderate shortness of breath at rest but feels a little better Pain seems to be under control and denies any fever and/or chills 04/18/2021 The patient was seen and examined in ICU He has been stable with decreasing shortness of breath at rest No fever and no chills 04/19/2021 The patient was seen and examined in ICU He has been feeling much better today and denies any significant symptoms Minimally shortness of breath at rest and denies any fever and no chills 04/20/2021 The patient was seen and examined in ICU He has been feeling a little bit better today Denies any significant symptoms No fever and no chills 04/23/2021 The patient was seen and examined in ICU He has been much better but remains generally weak Denies any fever and/or chills 04/24/2021 The patient was seen and examined in ICU He remains very weak and lethargic Heart rate remains elevated more than 100 04/25/2021 The patient was seen and examined in ICU He remains weak and lethargic and denies any symptoms He has had some abdominal pain and underwent his CAT scan of the abdomen pelvis early this morning No fever and no chills, no nausea or vomiting 04/25/2021 Dr. Norris recheck-Decubitus ulcer of sacral area: pt is stable, no fever, normal WBC, CT scan(04/25/2021)-There is a sacral decubitus ulceration. A 2.7 cm pocket of gas and fluid just superficial to the sacrum may resent a component of the ulceration or a small abscess. Physical Exam Constitutional: WD/WN, vitals as above Eyes: PERRL, conjunctivae normal, anicteric sclerae Neck: trachea midline, no thyromegaly Gastrointestinal (Abdomen): softNT, Nd, Skin: wound vac on sacral area, no redness, no bulging, Results & Data ([facility]) Vital Signs (Past 12 Hours) Vital Signs Temp Pulse Resp BP Pulse Ox 04/25/21 04:25 36.6 C 106 H 16 111/61 95 Laboratory Results Abnormal lab results 04/24/21 04/24/21 04/24/21 Range/Units 16:30 21:45 23:55 RBC 3.47 L (4.7-6.1) M/uL Hgb 10.5 L (14.0-18.0) g/dL Hct 33.1 L (42-52) % MCHC 31.7 L (32-36) g/dL RDW Std Deviation 57.8 H (36.4-46.3) fL RDW Coeff of Lizet 16.9 H (11.5-14.5) % Lymph # (Auto) 0.92 L (1.2-3.4) K/uL Dawes # (Auto) 0.60 H (0.11-0.59) K/uL PT (9.0-12.0) Seconds INR (0.9-1.1) Glucose (70-99) mg/dl POC Glucose 174 H 201 H (70-99) mg/dl Magnesium (1.8-2.4) mg/dl 04/24/21 04/25/21 04/25/21 Range/Units 23:55 05:27 05:27 RBC (4.7-6.1) M/uL Hgb (14.0-18.0) g/dL Hct (42-52) % MCHC (32-36) g/dL RDW Std Deviation (36.4-46.3) fL RDW Coeff of Lizet (11.5-14.5) % Lymph # (Auto) (1.2-3.4) K/uL Dawes # (Auto) (0.11-0.59) K/uL PT 49.9 H 52.2 H (9.0-12.0) Seconds INR 5.6 H* 5.9 H* (0.9-1.1) Glucose 175 H (70-99) mg/dl POC Glucose (70-99) mg/dl Magnesium 1.7 L (1.8-2.4) mg/dl 04/25/21 04/25/21 Range/Units 07:03 11:43 RBC (4.7-6.1) M/uL Hgb (14.0-18.0) g/dL Hct (42-52) % MCHC (32-36) g/dL RDW Std Deviation (36.4-46.3) fL RDW Coeff of Lizet (11.5-14.5) % Lymph # (Auto) (1.2-3.4) K/uL Dawes # (Auto) (0.11-0.59) K/uL PT (9.0-12.0) Seconds INR (0.9-1.1) Glucose (70-99) mg/dl POC Glucose 174 H 219 H (70-99) mg/dl Magnesium (1.8-2.4) mg/dl Diagnostic Findings CT SCAN OF THE ABDOMEN AND PELVIS WITHOUT IV CONTRAST CLINICAL HISTORY: Low back pain. COMPARISON STUDY: Abdominal CT dated 04/15/2021. TECHNIQUE: CT scan of the abdomen and pelvis is performed from the lung bases to the proximal femora. Images are reviewed in the axial, sagittal, and coronal planes. IV contrast was not administered for this examination. A dose lowering technique was utilized adhering to the principles of ALARA. The examination Is compromised by motion artifact. CT DOSE: 847.24 mGy.cm FINDINGS: Lung bases: The heart is mildly enlarged noting trace pericardial effusion. Pacemaker leads are noted. The coronary arteries are densely calcified. There is a tiny hiatal hernia. There are small right and trace left pleural effusions. Emphysema is suspected. Mild bronchiectasis is noted at both lung bases with fluid/debris within the lower lobe airways. Fibrotic change is noted in the lower lobes. Scattered bibasilar pulmonary nodules measure up to 4 mm. Gynecomastia is noted. Liver: The unenhanced liver is cirrhotic in morphology and heterogeneous in attenuation. There is nodularity of the surface contour and hypertrophy of the left lobe. There is no intrahepatic biliary ductal dilatation. Gallbladder: Surgically absent noting clips in the gallbladder fossa. Spleen: Normal in size and attenuation. Pancreas: The unenhanced pancreas is atrophic and grossly unremarkable. Adrenal glands: Unremarkable. Kidneys: The unenhanced kidneys are atrophic and without hydronephrosis. There are numerous stones/fragments in the distal right ureter located just above the vesicoureteral junction. These measure up to 10 mm and cause only mild right- sided hydroureter. No additional calculi are identified in either kidney. There is no evidence of contour deforming renal mass lesion. Nonspecific perinephric haziness and nodularity is unchanged from previous. Abdominal vasculature: The abdominal aorta is normal in course and caliber noting advanced atherosclerotic calcification. Bowel: There is no bowel obstruction. Residual enteric contrast is noted in the colon. There is mild colonic diverticulosis without CT evidence of acute diverticulitis. The appendix is well-visualized and normal. Peritoneum: There is no intraperitoneal free air or abdominal ascites. Lymphadenopathy: Shotty retroperitoneal lymph nodes are unchanged. These are not pathologically enlarged by size criteria. Pelvic viscera: The bladder wall appears thickened. The bladder is decompressed around a Cisneros catheter and not well evaluated. The prostate gland is enlarged and heterogeneous. There is a small fat-containing right inguinal hernia. Skeletal structures: The skeletal structures are osteopenic. There are numerous chronic right-sided rib fractures. Mild lumbosacral spondylosis is observed. No lytic or blastic lesions are seen. A sacral decubitus ulcer is again noted. A small pocket of gas and fluid superficial to the sacrum on image #402 measures 2.7 x 0.9 cm. There is no bony erosion or periostitis and the underlying sacrum. There is a subacute appearing fracture of the left proximal femur with intertrochanteric and intramedullary nails in place. IMPRESSION: 1. There are numerous stones/fragments in the distal right ureter just above the vesicoureteral junction. These measure up to 10 mm and cause mild right hydroureter. There is no hydronephrosis. 2. No additional calculi are seen in either kidney. 3. There is a sacral decubitus ulceration. A 2.7 cm pocket of gas and fluid just superficial to the sacrum may resent a component of the ulceration or a small abscess. 4. The bladder wall appears circumferentially thickened. Correlate with urinalysis. 5. There is a subacute appearing fracture of the left proximal femur status post surgical fixation. 6. Cirrhotic liver morphology. 7. Small right and trace left pleural effusions. 8. Fibrotic change is seen at both lung bases as detailed above. 9. Perinephric haziness and nodularity is pathologically indeterminant and unchanged. 10. Additional findings as above. (1) Decubitus ulcer of sacral area Pressure injury stage: unstageable Qualified Code(s): L89.150 - Pressure ulcer of sacral region, unstageable
[2021-04-25] MEDS: allopurinoL 300 MG TAB PO SCH (21:05)
[2021-04-25] MEDS: ASPIRIN 325 MG ECTAB PO SCH (21:05)
[2021-04-25] MEDS: MONTELUKAST SODIUM 10 MG TABLET PO SCH (21:06)
[2021-04-25] MEDS: PRIMIDONE 250 MG TAB PO SCH (21:06)
[2021-04-25] MEDS: METOPROLOL SUCC 50MG EXT REL TAB PO SCH (21:06)
[2021-04-26] MEDS: MoRPHine SULFATE 4 MG/ML 1 ML CARP\\VIAL IV PRN ×3 (01:07→21:53)
[2021-04-26 04:52] LABS: Basophils # (auto) 0.02 K/uL (0-0.2); Basophils % (auto) 0.3 %; Eosinophils # (auto) 0.27 K/uL (0-0.5); Hematocrit (blood only) 34.5 % (42-52); Hemoglobin 10.8 g/dL (14.0-18.0); Immature Granulocytes # (auto) 0.01 K/uL (0.00-0.02); Immature Granulocytes % (auto) 0.1 %; Lymphocytes # (auto) 1.01 K/uL (1.2-3.4); Mean Corpuscular Hemoglobin 30.2 pg (25-34); Mean Corpuscular Hgb Conc 31.3 g/dL (32-36); Mean Corpuscular Volume 96.4 fL (80-100); Mean Platelet Volume 10.3 fL (7.4-10.4); Monocytes % (auto) 11.9 %; Neutrophils # (auto) 4.62 K/uL (1.4-6.5); Neutrophils % (auto) 68.7 %; Platelet Count 178 K/uL (130-400); RDW Coefficient of Variation 16.9 % (11.5-14.5); RDW Standard Deviation 59.3 fL (36.4-46.3); Red Blood Count 3.58 M/uL (4.7-6.1); White Blood Count 6.73 K/uL (4.8-10.8)
[2021-04-26 05:06] LABS: BUN Creatinine Ratio 14.2 (10-20); Calcium 8.6 mg/dl (8.5-10.1); Creatinine Clr Calc Pharmacy 91.8 ml/min; Est GFR (African American) 102.2 ml/min; Est GFR (Non-African American) 88.2 ml/min; Magnesium 1.5 mg/dl (1.8-2.4); Potassium 3.8 mmol/L (3.5-5.1)
[2021-04-26] MEDS: ACETAMINOPHEN 325 MG TAB PO SCH ×3 (05:46→20:38)
[2021-04-26] MEDS: INSULIN ASPART 100 UNITS/ML 3 ML PEN SC SCH ×4 (07:47→20:41)
[2021-04-26] MEDS: DICLOFENAC SOD 1% GEL 100 GM TUBE EXT SCH ×4 (09:25→20:40)
[2021-04-26] MEDS: oxyCODONE HCL IR 5 MG TAB (IMMEDIATE RELEASE) PO PRN (09:25)
[2021-04-26] MEDS: DOCUSATE SODIUM/SENNA 50/8.6MG TAB PO SCH ×2 (09:26→20:44)
[2021-04-26] MEDS: MULTIVITAMIN TAB PO SCH (09:26)
[2021-04-26] MEDS: INSULIN GLARGINE SOLOSTAR 100 UNITS/ML 3 ML PEN SC SCH (09:26)
[2021-04-26] MEDS: POTASSIUM CHLORIDE CRTAB 20 MEQ TABCR PO SCH (09:26)
[2021-04-26] MEDS: FUROSEMIDE 20 MG TAB PO SCH (09:27)
[2021-04-26] MEDS: METOPROLOL SUCC 50MG EXT REL TAB PO SCH ×2 (09:27→20:39)
[2021-04-26] MEDS ORDERED: cefTRIAXone SODIUM 2,000 MG in DEXTROSE 5% 50 ML IV SCH (14:30)
--- NOTE | 2021-04-26 14:36 | Hospitalist Progress Note ---
Date of Service April 26, 2021 Assessment & Plan (1) Sepsis: Plan: Sepsis secondary to worsening/new sacral decubitus ulcer that is unstageable and foul-smelling. S/P Debridement of sacral decubitus ulcer 04/16/21 (Significant necrotic and gangrenous tissue at the surface of the ulcer. This was debrided. No bone was exposed. The tissue was debrided back to healthy bleeding tissue). Most likely source of his sepsis. He also has a right ureteral stone that is obstructing the ureter with persistent hydronephrosis and hydroureter. Wound culture is growing Proteus Mirabella's sensitive to cephalosporins, floxacillin and sulfa Blood cultures have been negative. Continue with ceftriaxone and doxycycline. As per the OR report, gangrenous/necrotic tissue was removed. Tissue was debrided back to healthy tissue. Likely does not need prolonged antibiotic. Given extensive wound, will need few weeks of antibiotic therapy Repeat CT of the abdomen and pelvis showed 2.7 cm pocket of gas and fluid just superficial to the sacrum may represent a component of the ulceration or a small abscess Appreciate surgery input. No indication for any further management. Continue with antibiotics. Bronchiectasis Acute hypoxic respiratory failure - resolved CT scan did show bilateral basal bronchiectasis without any change compared with prior. Doubt any pneumonia secondary to bronchiectasis. MRSA screen was positive but blood cultures have been negative Currently on room air and saturating well Hypomagnesemia, hypokalemia and hypophosphatemia - resolved We will recheck tomorrow Remains stable (2) PAF (paroxysmal atrial fibrillation): Plan: Appreciate cardiology input. Continue with Toprol-XL 50 mg twice daily. (3) Decubitus ulcer of sacral area: Plan: Foul-smelling, unstageable. General surgery consulted. Wound nurse consulted. Turn every 2 and keep him off this area. Status post surgical debridement of the sacral wound Continue with wound care management and possible placement of wound VAC Wound culture is growing Proteus mirabilis and the sensitivities are noted Blood culture have been negative Has stage IV sacral decubitis. Continue with ceftriaxone and doxycycline. Clean and dress wound as advised by the wound care nurse-keep the wound clean and dry Please see the picture of the sacral decubitus to have a detailed idea about the ulcer itself 2.7 cm pocket of gas and fluid just superficial to the sacrum may represent a component of the ulceration or a small abscess Appreciate surgery input. No indication for any further surgical procedure at this time. (4) Ureteral calculus, right: Plan: Appreciate urology input. Would consider adding Flomax once he is more hemodynamically stable and resuscitated from a sepsis standpoint. Appreciate urology input and recommendation Has asymptomatic candiduria urea-no antifungal is required now Will need oral Diflucan if he goes for any urological procedure for a few days prior and after the procedure Management will be as per the recommendation from the urologist Repeat CT scan of the abdomen and pelvis showed:- There are numerous stones/fragments in the distal right ureter just above the vesicoureteral junction. These measure up to 10 mm and cause mild right hydroureter. There is no hydronephrosis. Not having any urinary symptoms or pain (5) Post-operative state: Plan: Underwent left trochanteric femoral nail of left hip fracture by Dr. Woo on 03/29/2021. He should be partial weightbearing for 6 weeks postop. PT/OT to assess prior to returning to Center care. Continue pain control efforts. (6) Diabetes mellitus, type 2: Plan: Hold home oral medications. Continue with basal bolus insulin. Continue with SSI (7) Ischemic cardiomyopathy: Plan: Chronic, stable. Patient is euvolemic to dry on exam and no evidence of acute coronary syndrome. Appreciate cardiology input and recommendation Denies any cardiac symptoms (8) Coronary artery disease: Plan: Chronic, stable, continue current medical management No acute cardiac symptoms (9) Chronic kidney disease stage 3: Plan: Creatinine is at baseline 1.1 (10) DVT prophylaxis: Plan: Continue with daily Coumadin. INR today at 5.9. Hold further Coumadin today. Plan: Patient does have a bed at [facility] tomorrow Plan to obtain PICC line today and discharge tomorrow. Admission and Anticipated Discharge Date Admission Date: April 15, 2021 Subjective Doing okay this morning. Does endorse back pain. Denies any chest pain, shortness of breath, palpitations or any dizziness. Rest of the review of system is negative. Remains tachycardic. Review of Systems Review of Systems: All systems reviewed & are unremarkable except as noted in HPI & below Physical Exam Physical Exam: General: A&Ox3. Ill-appearing gentleman HENT: NCAT, MMM, EOMI Eyes: PERRLA Neck: Supple, normal range of motion CVS: Tachycardic Resp: b/l good breath sounds Abdomen: Soft, ND/NT Extremities: Left hip incision c/d/i Back: Wound VAC in place, dressing is intact Neuro: face symmetric, no gross focal deficit Skin: warm and dry, no rashes/lesions/errythema MSK: normal ROM, no joint swelling/erythema Cisneros catheter in place. Results & Data Results & Data ([facility]) Vital Signs (Past 12 Hours) Vital Signs Temp Pulse Resp BP Pulse Ox 04/26/21 10:00 36.8 C 132 H 18 104/58 L 95 04/26/21 06:45 36.8 C 113 H 16 85/59 L 95 (1) Decubitus ulcer of sacral area Pressure injury stage: unstageable Qualified Code(s): L89.150 - Pressure ulcer of sacral region, unstageable
[2021-04-26] MEDS: DOXYCYCLINE HYCLATE 100 MG CAP PO SCH ×2 (15:21→20:40)
[2021-04-26] MEDS: ASPIRIN 325 MG ECTAB PO SCH (20:38)
[2021-04-26] MEDS: PRIMIDONE 250 MG TAB PO SCH (20:38)
[2021-04-26] MEDS: MONTELUKAST SODIUM 10 MG TABLET PO SCH (20:39)
[2021-04-26] MEDS: allopurinoL 300 MG TAB PO SCH (20:39)
[2021-04-27 05:04] LABS: INR 1.1 (0.9-1.1); Prothrombin Time 11.3 Seconds (9.0-12.0)
[2021-04-27] MEDS: ACETAMINOPHEN 325 MG TAB PO SCH ×2 (06:22→12:38)
[2021-04-27] MEDS: DICLOFENAC SOD 1% GEL 100 GM TUBE EXT SCH ×2 (08:18→12:37)
[2021-04-27] MEDS: POTASSIUM CHLORIDE CRTAB 20 MEQ TABCR PO SCH (08:23)
[2021-04-27] MEDS: oxyCODONE HCL IR 5 MG TAB (IMMEDIATE RELEASE) PO PRN ×2 (08:23→16:12)
[2021-04-27] MEDS: DOCUSATE SODIUM/SENNA 50/8.6MG TAB PO SCH (08:23)
[2021-04-27] MEDS: INSULIN ASPART 100 UNITS/ML 3 ML PEN SC SCH ×2 (08:24→12:36)
[2021-04-27] MEDS: DOXYCYCLINE HYCLATE 100 MG CAP PO SCH (08:24)
[2021-04-27] MEDS: INSULIN GLARGINE SOLOSTAR 100 UNITS/ML 3 ML PEN SC SCH (08:24)
[2021-04-27] MEDS: METOPROLOL SUCC 50MG EXT REL TAB PO SCH (08:25)
[2021-04-27] MEDS: FUROSEMIDE 20 MG TAB PO SCH (08:25)
[2021-04-27] MEDS: MULTIVITAMIN TAB PO SCH (08:25)
[2021-04-27] MEDS ORDERED: WARFARIN SOD 5 MG TAB PO ONE (09:45)
--- NOTE | 2021-04-27 14:06 | Discharge Summary ---
Date of Service April 27, 2021 Admission HPI Per Admitting Provider 75-year-old man presents with worsening left hip and sacral pain in the setting of recent left hip ORIF on 03/30 status post fall suffering intertrochanteric fracture and with known sacral decubitus ulcer. My history is limited from the patient who is having some increased respiratory distress and somewhat frustrated with questionable sundowning. Per ER notes the patient reports his pain has been going on since he was in the hospital for his surgery but has been gotten progressively worse at [facility] where he is currently a resident. Cisneros catheter was placed by halfway staff prior to the emergency department today for an unclear reason. He arrived to the ER with chronic atrial fibrillation and rapid ventricular response without chest pain. White blood cell count and platelets are within normal limits. Of the chest CT was negative for PE bronchiectasis unchanged. CT abdomen pelvis reveals sacral decubitus ulcer new from 03/30 with foci of air noted. There was a slightly improved right hydronephrosis and hydroureter with redemonstration of obstructive calculus in the distal right ureter. Obstructive calculus was also present and earlier CT a couple weeks ago. Does not appear patient was seen by urology. Reports right-sided flank pain. Admission Exam Per Admitting Provider CONSTITUTIONAL: WNWD, vitals as above, generally ill-appearing, labored breathing, slumped over railing of bed. EYES: normal conjunctivae, no scleral icterus ENT: external ear and nose normal, MMM NECK: trachea midline RESPIRATORY: coarse adventitial sounds throughout with additional overlay from upper airway sounds, no crackles, wheezing or rales. increased respiratory effort CARDIOVASCULAR: tachy rate and irregulat rhythm, S1 and 2 heard without murmurs, gallops or rubs, no JVD, no peripheral edema CHEST: inspection of chest was normal GASTROINTESTINAL: soft, nontender, ND, protuberant, no guarding MUSCULOSKELETAL: strength 5/5 throughout, head is normocephalic and atraumatic SKIN: warm and dry NEUROLOGIC: CN 2-12 grossly intact, normal cognition, normal speech, no tremor PSYCHIATRIC: alert cooperative and answering questions appropriately. Principal Diagnosis Sepsis Discharge Exam General: A&Ox3. Ill-appearing gentleman HENT: NCAT, MMM, EOMI Eyes: PERRLA Neck: Supple, normal range of motion CVS: Tachycardic Resp: b/l good breath sounds Abdomen: Soft, ND/NT Extremities: Left hip incision c/d/i Back: Wound VAC in place, dressing is intact Neuro: face symmetric, no gross focal deficit Skin: warm and dry, no rashes/lesions/errythema MSK: normal ROM, no joint swelling/erythema Cisneros catheter in place. Discharge Data Allergies Allergy/AdvReac Type Severity Reaction Status Date / Time albuterol Allergy Severe CHOKING Verified 04/15/21 19:16 SENSATION ipratropium Allergy Severe CHOKING Verified 04/15/21 19:16 SENSATION onion Allergy Intermediate RASH Verified 04/15/21 19:16 levofloxacin Allergy Mild other Verified 04/15/21 19:16 spironolactone AdvReac Severe Problems Unverified 04/15/21 19:16 with breathing atorvastatin AdvReac Intermediate Muscle Pain Verified 04/15/21 19:16 metformin AdvReac Intermediate Diarrhea Verified 04/15/21 19:16 Consultations 04/15/21 21:13 ED Decision to Admit Stat 04/15/21 22:56 Consult General Surgery Routine Consult Urology Routine 04/16/21 07:49 Consult Cardiology Routine Ordered Studies 04/15/21 16:25 CT abd pelvis IV con only Stat CT angio chest PE protocol Stat 04/25/21 00:45 CT abd pelvis wo con Urgent Hospital Course (1) Sepsis: Sepsis secondary to worsening/new sacral decubitus ulcer that is unstageable and foul-smelling. S/P Debridement of sacral decubitus ulcer 04/16/21 (Significant necrotic and gangrenous tissue at the surface of the ulcer. This was debrided. No bone was exposed. The tissue was debrided back to healthy bleeding tissue). As per the OR report, gangrenous/necrotic tissue was removed. Tissue was debrided back to healthy tissue. Most likely source of his sepsis. He also has a right ureteral stone that is obstructing the ureter with persistent hydronephrosis and hydroureter. Wound culture is growing Proteus Mirabella's sensitive to cephalosporins, floxacillin and sulfa Blood cultures have been negative. Given extensive wound, will need few weeks of antibiotic therapy Repeat CT of the abdomen and pelvis showed 2.7 cm pocket of gas and fluid just superficial to the sacrum may represent a component of the ulceration or a small abscess Appreciate surgery input. No indication for any further management. Continue with antibiotics. Patient was discharged on ceftriaxone 2 g daily and Rocephin for 12 more days. Bronchiectasis Acute hypoxic respiratory failure - resolved CT scan did show bilateral basal bronchiectasis without any change compared with prior. Doubt any pneumonia secondary to bronchiectasis. MRSA screen was positive but blood cultures have been negative On the day of discharge patient was doing okay. He was on room air. Denied any respiratory symptoms. Hypomagnesemia, hypokalemia and hypophosphatemia - resolved (2) PAF (paroxysmal atrial fibrillation): Appreciate cardiology input. Continue with Toprol-XL 50 mg twice daily. (3) Decubitus ulcer of sacral area: Foul-smelling, unstageable. General surgery consulted. Wound nurse consulted. Turn every 2 and keep him off this area. Status post surgical debridement of the sacral wound Continue with wound care management and possible placement of wound VAC Wound culture is growing Proteus mirabilis and the sensitivities are noted Blood culture have been negative Has stage IV sacral decubitis. Continue with ceftriaxone and doxycycline. Clean and dress wound as advised by the wound care nurse-keep the wound clean and dry Please see the picture of the sacral decubitus to have a detailed idea about the ulcer itself 2.7 cm pocket of gas and fluid just superficial to the sacrum may represent a component of the ulceration or a small abscess Appreciate surgery input. No indication for any further surgical procedure at this time. (4) Ureteral calculus, right: Appreciate urology input. Would consider adding Flomax once he is more hemodynamically stable and resuscitated from a sepsis standpoint. Appreciate urology input and recommendation Has asymptomatic candiduria urea-no antifungal is required now Will need oral Diflucan if he goes for any urological procedure for a few days prior and after the procedure Management will be as per the recommendation from the urologist Repeat CT scan of the abdomen and pelvis showed:- There are numerous stones/fragments in the distal right ureter just above the vesicoureteral junction. These measure up to 10 mm and cause mild right hydroureter. There is no hydronephrosis. Not having any urinary symptoms or pain (5) Post-operative state: Underwent left trochanteric femoral nail of left hip fracture by Dr. Woo on 03/29/2021. He should be partial weightbearing for 6 weeks postop. PT/OT to assess prior to returning to [facility] care. Continue pain control efforts. (6) Diabetes mellitus, type 2: Hold home oral medications. Continue with basal bolus insulin. Continue with SSI (7) Ischemic cardiomyopathy: Chronic, stable. Patient is euvolemic to dry on exam and no evidence of acute coronary syndrome. Appreciate cardiology input and recommendation Denies any cardiac symptoms (8) Coronary artery disease: Chronic, stable, continue current medical management No acute cardiac symptoms (9) Chronic kidney disease stage 3: Creatinine is at baseline 1.1 Total Time Total Time Spent Total Time Spent (In Minutes): 35 Discharge Plan Discharge Items Patient Disposition: Transfer [facility] Reason For Visit: PAIN FROM SACRAL WOUND Discharge Diagnosis: Sepsis Activity: Resume your previous activity Non-emergency contact: Primary Care Provider Call non-emergency contact if: your symptoms worsen Follow-up/Referrals: [facility] [Primary Care Provider] - Diet: Heart Healthy Addtl Attending Provider Instructions: Continue ceftriaxone 2 g daily and doxycycline 100 mg twice daily for 12 more days. Pending Studies at Discharge: No Stand-Alone Forms: My [facility] Skilled Items Patient informed of condition?: Yes DNR: No Discharge Level of Care: Skilled Communicable Disease: No Discharge Prognosis: Stable Lines: US Guided Peripheral IV Urinary Catheter: Yes Medications and DC Order Prescriptions: New doxycycline hyclate 100 mg Capsule 100 mg PO BID Qty: 24 RF: 0 metoprolol succinate 50 mg Tablet Extended Release 24 Hr 50 mg PO BID Qty: 60 RF: 0 furosemide 20 mg Tablet 20 mg PO QAM Qty: 30 RF: 0 ceftriaxone 2 gram recon soln 2 g IV DAILY Qty: 12 RF: 0 Continued primidone [Mysoline] 250 mg Tablet 500 mg PO HS RF: 0 nitroglycerin 0.4 mg Tablet, Sublingual 0.4 mg Sublingual UD PRN (Reason: Chest Pain) RF: 0 montelukast [Singulair] 10 mg Tablet 10 mg PO HS RF: 0 rosuvastatin [Crestor] 40 mg Tablet 40 mg PO HS RF: 0 Lantus Solostar U-100 Insulin 100 unit/mL (3 mL) Insulin Pen 10 unit SUBCUT HS RF: 0 ferrous sulfate [iron] 325 mg (65 mg iron) Tablet 325 mg PO Q OTHER DAY RF: 0 aspirin 325 mg Tablet 325 mg PO HS RF: 0 ascorbic acid (vitamin C) [Vitamin C] 1,000 mg Tablet 1 g PO BID RF: 0 acetaminophen 325 mg Tablet 650 mg PO Q6 MDD 3g PRN (Reason: Pain, Mild 1-4) RF: 0 oxycodone 5 mg Tablet 5 mg PO Q4 PRN (Reason: pain 5-8) RF: 0 guaifenesin 600 mg Tablet Extended Release 12hr 600 mg PO Q12H RF: 0 warfarin [Coumadin] 5 mg Tablet 5 mg PO QPM RF: 0 potassium chloride [Klor-Con M20] 20 mEq tablet,ER particles/crystals 20 meq PO DAILY RF: 0 sennosides-docusate sodium [Senokot-S] 8.6-50 mg Tablet 1 tab-cap PO BID RF: 0 amoxicillin-pot clavulanate [Augmentin] 875-125 mg Tablet 1 tab PO Q12H RF: 0 Jardiance 10 mg Tablet 10 mg PO HS RF: 0 allopurinol 300 mg Tablet 300 mg PO HS RF: 0 multivitamin with folic acid [Daily-Karla (with folic acid)] 400 mcg Tablet 1 tab PO QAM 30 Days Qty: 30 RF: 0 Discontinued doxycycline hyclate 100 mg Tablet 100 mg PO BID RF: 0 metoprolol succinate 25 mg Tablet Extended Release 24 Hr 25 mg PO QAM 30 Days Qty: 30 RF: 0 Discharge Orders: Discharge Order (Routine); Ordered 04/27/21 Ordered By: Ashleigh Castillo Admission Data Admit Date/Time: 04/15/21 22:50 Attending Provider: Ashleigh Castillo Admit Provider: Juliana Anderson Primary Care Provider: [facility] Other Providers: Ruben Antonio ; Ron Partida ; Juliana Anderson ; Zaid Stevenson Muhammad J.
== END 2021-04-27 17:00 | DRG 853 ==
LOC: ED 16:00 → EDINP 22:50 → SUATTDRO 22:50 → 1E 04-16 01:00